=== PATIENT | female | born 1965 | race African-American/Black ===

== ENCOUNTER 2017-12-08 12:33 | Emergency (ER) | payer OTHER ==
[2017-12-08] MEDS ORDERED: IBUPROFEN 200 MG TAB PO ONE (13:34)
--- NOTE | 2017-12-08 13:41 | RAD REPORT ---
EXAM DESCRIPTION: RAD - Elbow Right 3 View - 12/08/2017 1:36 pm CLINICAL HISTORY: Elbow pain following fall COMPARISON: None. FINDINGS: No fracture is identified and no elevated posterior fat pad. There is no dislocation or pe riosteal reaction noted. No foreign body or other soft tissue abnormality. No other significant findi ng. IMPRESSION: Negative right elbow examination.
--- NOTE | 2017-12-08 13:43 | RAD REPORT ---
EXAM DESCRIPTION: Shoulder Right 2 View - 12/08/2017 1:36 pm CLINICAL HISTORY: Shoulder pain after fall COMPARISON: November 10 TECHNIQUE: Internal and external rotation views of the right shoulder were obtained. FINDINGS: No fracture or dislocation. No acute or destructive finding in the proximal humerus. AC nadiya int degenerative changes are present and small inferiorly directed spurs are present. An acute trauma related finding is not seen. Acromial humeral joint space is normal. IMPRESSION: Degenerative changes are present but no fracture or acute finding seen.
--- NOTE | 2017-12-08 13:52 | EDPHYS ---
Physician Documentation [facility] Name: Charlotte Ruvalcaba Age: 52 yrs Sex: Female : 1965 Arrival Date: 12/08/2017 Time: 12:32 Bed 8 Private MD: ED Physician Vinny Puga HPI: 12/08 13:40 This 52 yrs old Black Female presents to ER via EMS with complaints of Shoulder Pain. gs 13:40 The patient or guardian complains of an injury. right shoulder. Context: The problem gs was sustained at a store, resulted from a fall, while walking, The patient experiences decreased range of motion, The patient reports no obvious deformity. Onset: The symptoms/episode began/occurred acutely, just prior to arrival. Modifying factors: The symptoms are aggravated by movement. Associated signs and symptoms: Pertinent negatives: Numbness in left arm. Severity of symptoms: At their worst the symptoms were mild, in the emergency department the symptoms are unchanged. The patient has experienced similar episodes in the past, a few times. The patient has not recently seen a physician. Historical: - Allergies: 12:37 NKDA; hb - Home Meds: 12:37 acetaminophen-codeine 300-30 mg Oral tab [Active]; cyclobenzaprine 10 mg Oral tab 1 tab hb [Active]; diclofenac sodium 75 mg Oral TbEC 1 tab daily [Active]; esomeprazole magnesium 40 mg Oral cpDR 1 cap once daily [Active]; Humalog subcutaneous Sub-Q [Active]; indomethacin 75 mg Oral cpER 1 cap 2 times per day [Active]; Januvia 100 mg Oral tab 1 tab once daily [Active]; levemir SQ 60 mg daily [Active]; loratadine 10 mg Oral tab 1 tab once daily [Active]; losartan 50 mg Oral tab 1 tab once daily [Active]; paroxetine HCl 10 mg Oral tab 1 tab once daily [Active]; Levemir FlexTouch 100 unit/mL (3 mL) subcutaneous inpn [Active]; pentazocine-naloxone 50-0.5 mg Oral tab every 6 hours [Active]; simvastatin 40 mg Oral tab 1 tab once daily [Active]; tramadol 50 mg Oral tab [Active]; victoza 3-tita SQ 1.8 mg daily [Active]; - PMHx: 12:37 Asthma; breast cancer; Diabetes - IDDM; chronic pain, sees pain doctor; COPD; hb Hypertension; Gout; Hypothyroidism; - PSHx: 12:37 two knees replacements, carpel tunnel, heel spurr sx, ankle, trigger finger; R shoulder hb sx; - Immunization history:: Adult Immunizations up to date. - Social history:: Smoking status: Patient/guardian denies using tobacco. ROS: 13:40 All other systems are negative. gs Exam: 13:40 Head/Face: Normocephalic, atraumatic. Eyes: Pupils equal round and reactive to light, gs extra-ocular motions intact. Lids and lashes normal. Conjunctiva and sclera are non-icteric and not injected. Cornea within normal limits. Periorbital areas with no swelling, redness, or edema. ENT: Nares patent. No nasal discharge, no septal abnormalities noted. Tympanic membranes are normal and external auditory canals are clear. Oropharynx with no redness, swelling, or masses, exudates, or evidence of obstruction, uvula midline. Mucous membranes moist. Neck: Trachea midline, no thyromegaly or masses palpated, and no cervical lymphadenopathy. Supple, full range of motion without nuchal rigidity, or vertebral point tenderness. No Meningismus. Chest/axilla: Normal chest wall appearance and motion. Nontender with no deformity. No lesions are appreciated. Cardiovascular: Regular rate and rhythm with a normal S1 and S2. No gallops, murmurs, or rubs. Normal PMI, no JVD. No pulse deficits. Respiratory: Lungs have equal breath sounds bilaterally, clear to auscultation and percussion. No rales, rhonchi or wheezes noted. No increased work of breathing, no retractions or nasal flaring. Abdomen/GI: Soft, non-tender, with normal bowel sounds. No distension or tympany. No guarding or rebound. No evidence of tenderness throughout. Back: No spinal tenderness. No costovertebral tenderness. Full range of motion. Skin: Warm, dry with normal turgor. Normal color with no rashes, no lesions, and no evidence of cellulitis. Neuro: Awake and alert, GCS 15, oriented to person, place, time, and situation. Cranial nerves II-XII grossly intact. Motor strength 5/5 in all extremities. Sensory grossly intact. Cerebellar exam normal. Normal gait. 13:40 Constitutional: The patient appears alert, awake. 13:40 Musculoskeletal/extremity: Joints: the right shoulder displays 13:45 Musculoskeletal/extremity: Joints: the right shoulder displays limited range of gs motion, tenderness, the right elbow displays tenderness. Vital Signs: 12:33 BP 175 / 79; Pulse 88; Resp 16; Temp 98.1; Pulse Ox 100% on R/A; Pain 10/10; hb 13:25 BP 138 / 88; Pulse 71; Resp 17; Pulse Ox 98% on R/A; Pain 9/10; hb 14:14 BP 166 / 85; Pulse 72; Resp 16; Temp 98; Pulse Ox 99% on R/A; Pain 5/10; ch MDM: 12:40 Patient medically screened. 13:45 Differential diagnosis: humeral head fracture, glenoid fracture, DJD. Data reviewed: vital signs, nurses notes. 12/08 12:40 Order name: Shoulder Right (2 View) XRAY; Complete Time: 13:44 12/08 13:44 Interpretation: No acute disease. 12/08 12:40 Order name: Elbow Right 3 View XRAY; Complete Time: 13:42 12/08 14:14 Order name: Sling; Complete Time: 14:14 Administered Medications: 13:24 Drug: Motrin 600 mg Route: PO; hb 14:14 Follow up: Response: No adverse reaction; Marked relief of symptoms Disposition: 12/08/17 13:51 Discharged to Home. Impression: Other specific joint derangements of right shoulder, not elsewhere classified, Contusion of right elbow. - Condition is Stable. - Prescriptions for Naprosyn 500 mg Oral Tablet - take 1 tablet by ORAL route 2 times per day As needed take with food; 30 tablet. - Medication Reconciliation Form, Thank You Letter, Antibiotic Education, Prescription Opioid Use form. - Follow up: Kameron Feliz MD; When: 2 - 3 days; Reason: Re-evaluation by your physician. Signatures: Dispatcher [employer] Nancy Puente RN ALOK Miranda Ramos RN RN Birgit Velasco RN RN Vinny Puga MD MD
--- NOTE | 2017-12-08 13:52 | ER ---
Nurse's Notes [facility] Name: Charlotte Ruvalcaba Age: 52 yrs Sex: Female : 1965 Arrival Date: 12/08/2017 Time: 12:32 Bed 8 Private MD: Diagnosis: Other specific joint derangements of right shoulder, not elsewhere classified;Contusion of right elbow Presentation: 12/08 12:33 Presenting complaint: EMS states: Severe right shoulder pain after mechanical fall from hb standing approx 15 mins [employer]. Transition of care: patient was not received from another setting of care. Onset of symptoms was December 08, 2017. Care prior to arrival: sling. 12:33 Method Of Arrival: EMS: [facility] 12:33 Acuity: RASHAD 4 hb Historical: - Allergies: 12:37 NKDA; hb - Home Meds: 12:37 acetaminophen-codeine 300-30 mg Oral tab [Active]; cyclobenzaprine 10 mg Oral tab 1 tab hb [Active]; diclofenac sodium 75 mg Oral TbEC 1 tab daily [Active]; esomeprazole magnesium 40 mg Oral cpDR 1 cap once daily [Active]; Humalog subcutaneous Sub-Q [Active]; indomethacin 75 mg Oral cpER 1 cap 2 times per day [Active]; Januvia 100 mg Oral tab 1 tab once daily [Active]; levemir SQ 60 mg daily [Active]; loratadine 10 mg Oral tab 1 tab once daily [Active]; losartan 50 mg Oral tab 1 tab once daily [Active]; paroxetine HCl 10 mg Oral tab 1 tab once daily [Active]; Levemir FlexTouch 100 unit/mL (3 mL) subcutaneous inpn [Active]; pentazocine-naloxone 50-0.5 mg Oral tab every 6 hours [Active]; simvastatin 40 mg Oral tab 1 tab once daily [Active]; tramadol 50 mg Oral tab [Active]; victoza 3-tita SQ 1.8 mg daily [Active]; - PMHx: 12:37 Asthma; breast cancer; Diabetes - IDDM; chronic pain, sees pain doctor; COPD; hb Hypertension; Gout; Hypothyroidism; - PSHx: 12:37 two knees replacements, carpel tunnel, heel spurr sx, ankle, trigger finger; R shoulder hb sx; - Immunization history:: Adult Immunizations up to date. - Social history:: Smoking status: Patient/guardian denies using tobacco. Screenin:14 Abuse screen: Denies threats or abuse. Denies injuries from another. Nutritional ch screening: No deficits noted. Tuberculosis screening: No symptoms or risk factors identified. Fall Risk None identified. Assessment: 14:14 General: Appears in no apparent distress. comfortable, Behavior is calm, cooperative, ch appropriate for age. Pain: Complains of pain in right arm and right elbow and right shoulder. Neuro: No deficits noted. Vital Signs: 12:33 BP 175 / 79; Pulse 88; Resp 16; Temp 98.1; Pulse Ox 100% on R/A; Pain 10/10; hb 13:25 BP 138 / 88; Pulse 71; Resp 17; Pulse Ox 98% on R/A; Pain 9/10; hb 14:14 BP 166 / 85; Pulse 72; Resp 16; Temp 98; Pulse Ox 99% on R/A; Pain 5/10; ch ED Course: 12:32 Patient arrived in ED. hb 12:35 Triage completed. hb 12:38 Vinny Puga MD is Attending Physician. gs 12:39 Arm band placed on right wrist. hb 12:44 Birgit Velasco, RN is Primary Nurse. hb 13:32 X-ray completed. Portable x-ray completed in exam room. Patient tolerated procedure sw well. 13:33 Shoulder Right (2 View) XRAY In Process Unspecified. EDMS 13:33 Elbow Right 3 View XRAY In Process Unspecified. EDMS 13:49 Kameron Feliz MD is Referral Physician. gs 14:14 No apparent distress. Resting quietly. ch 14:14 Patient has correct armband on for positive identification. Bed in low position. Call light in reach. Side rails up X 1. 14:14 No provider procedures requiring assistance completed. Patient did not have IV access ch during this emergency room visit. Sling applied to right arm. Administered Medications: 13:24 Drug: Motrin 600 mg Route: PO; hb 14:14 Follow up: Response: No adverse reaction; Marked relief of symptoms ch Outcome: 13:51 Discharge ordered by . gs 14:20 Patient left the ED. Signatures: Dispatcher [employer] EDAR Nancy Couch RN RN Miranda Ramos RN RN William, Birgit Arita, RN RN hb Vinny Puga MD MD gs Corrections: (The following items were deleted from the chart) 12:35 12:33 BP 158 / 88; Pulse 88bpm; Resp 16bpm; Pulse Ox 100% RA; Temp 98.1F; Pain 1010; hbhb 12:44 12:33 Acuity: RASHAD 3 hb hb
[2017-12-08 14:33] VITALS: BP 166/85; TEMP 98; O2SAT 99
== END 2017-12-08 14:20 | disposition home or self-care (01) ==
LOC: ER 12:33
DX: M24.811 Other specific joint derangements of right shoulder, not elsewhere classified (principal); S50.01XA Contusion of right elbow, initial encounter; W18.39XA Other fall on same level, initial encounter; Y93.01 Activity, walking, marching and hiking; Y92.512 Supermarket, store or market as the place of occurrence of the external cause; Z79.4 Long term (current) use of insulin; Z85.3 Personal history of malignant neoplasm of breast; I10 Essential (primary) hypertension; E11.9 Type 2 diabetes mellitus without complications; E03.9 Hypothyroidism, unspecified; J45.909 Unspecified asthma, uncomplicated
CPT/HCPCS: 99284

== ENCOUNTER 2018-01-10 14:37 | Emergency (ER) | payer OTHER ==
--- NOTE | 2018-01-10 17:17 | ER ---
Nurse's Notes [facility] Name: Charlotte Ruvalcaba Age: 52 yrs Sex: Female : 1965 Arrival Date: 01/10/2018 Time: 14:42 Bed 8 Private MD: Diagnosis: Low back pain Presentation: 01/10 14:48 Presenting complaint: Patient states: Reports low back pain that started 3 days ago. aj Patient believes her back pain is related to a slip and fall she had 1 month ago at [facility]. Also states, "my chest is just tight, it's been like this for a while. I think it's just stress.". Transition of care: patient was not received from another setting of care. Onset of symptoms was January 07, 2018. Initial Sepsis Screen: Does the patient meet any 2 criteria? No. Patient's initial sepsis screen is negative. Does the patient have a suspected source of infection? No. Patient's initial sepsis screen is negative. Care prior to arrival: None. 14:48 Method Of Arrival: Ambulatory 14:48 Acuity: RASHAD 3 Triage Assessment: 14:52 General: Appears in no apparent distress. comfortable, Behavior is calm, cooperative, aj appropriate for age. Pain: Complains of pain in low back area Pain currently is 10 out of 10 on a pain scale. Neuro: Level of Consciousness is awake, alert, obeys commands, Oriented to person, place, time, situation, Appropriate for age. Cardiovascular: Capillary refill < 3 seconds in bilateral fingers Patient's skin is warm and dry. Respiratory: Airway is patent Respiratory effort is even, unlabored, Respiratory pattern is regular, symmetrical. Derm: Skin is intact, is healthy with good turgor, Skin is pink, warm \\T\\ dry. normal. Musculoskeletal: Reports pain in low back area. 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 aj Historical: - Allergies: 14:52 NKDA; aj - Home Meds: 14:52 acetaminophen-codeine 300-30 mg Oral tab [Active]; cyclobenzaprine 10 mg Oral tab 1 tab aj [Active]; diclofenac sodium 75 mg Oral TbEC 1 tab daily [Active]; esomeprazole magnesium 40 mg Oral cpDR 1 cap once daily [Active]; Humalog subcutaneous Sub-Q [Active]; indomethacin 75 mg Oral cpER 1 cap 2 times per day [Active]; Januvia 100 mg Oral tab 1 tab once daily [Active]; levemir SQ 60 mg daily [Active]; Levemir FlexTouch 100 unit/mL (3 mL) subcutaneous inpn [Active]; loratadine 10 mg Oral tab 1 tab once daily [Active]; losartan 50 mg Oral tab 1 tab once daily [Active]; paroxetine HCl 10 mg Oral tab 1 tab once daily [Active]; simvastatin 40 mg Oral tab 1 tab once daily [Active]; pentazocine-naloxone 50-0.5 mg Oral tab every 6 hours [Active]; tramadol 50 mg Oral tab [Active]; victoza 3-tita SQ 1.8 mg daily [Active]; [place] 7.5-325 mg Oral tab 1 tab every 4 hours [Active]; - PMHx: 14:52 Asthma; breast cancer; chronic pain, sees pain doctor; COPD; Diabetes - IDDM; Gout; aj Hypertension; Hypothyroidism; - PSHx: 14:52 two knees replacements, carpel tunnel, heel spurr sx, ankle, trigger finger; R shoulder aj sx; - Immunization history:: Adult Immunizations up to date. - Social history:: Smoking status: Patient/guardian denies using tobacco. - Family history:: not pertinent. - Hospitalizations: : No recent hospitalization is reported. Screenin:30 Abuse screen: Denies threats or abuse. Nutritional screening: No deficits noted. aa5 Tuberculosis screening: No symptoms or risk factors identified. Fall Risk None identified. Assessment: 15:30 General: Appears uncomfortable, Behavior is calm, cooperative. Pain: Complains of pain aa5 in right low back Pain does not radiate. Pain currently is 10 out of 10 on a pain scale. Quality of pain is described as sharp, Pain began 2-3 days ago. Is continuous, Aggravated by increased activity, repositioning. Neuro: Level of Consciousness is awake, alert, obeys commands, Oriented to person, place, time, situation. Cardiovascular: Reports intermittent chest tightness. Pt states "I think it's just from stress because I have a lot going on" Heart tones S1 S2 present Rhythm is regular. Respiratory: Airway is patent Respiratory effort is even, unlabored, Respiratory pattern is regular, symmetrical. GI: Patient currently denies diarrhea, nausea, vomiting. : Denies burning with urination, inability to void. EENT: No signs and/or symptoms were reported regarding the EENT system. Derm: Skin is dry, Skin is normal, Skin temperature is warm. Musculoskeletal: Range of motion: limited in right shoulder Sling noted to right arm. Pt states "I hurt my right shoulder a month ago". 16:15 Neuro: Level of Consciousness is awake, alert, obeys commands, Oriented to person, aa5 place, time, situation. Respiratory: Airway is patent Respiratory effort is even, unlabored, Respiratory pattern is regular, symmetrical. Derm: Skin is dry, Skin is normal, Skin temperature is warm. 16:15 Reassessment: Patient and/or family updated on plan of care and expected duration. Pain aa5 level reassessed. Pain: Pain currently is 8 out of 10 on a pain scale. 17:38 Neuro: Level of Consciousness is awake, alert, obeys commands, Oriented to person, aa5 place, time, situation. Respiratory: Airway is patent Respiratory effort is even, unlabored, Respiratory pattern is regular, symmetrical. Derm: Skin is dry, Skin is normal, Skin temperature is warm. Vital Signs: 14:52 BP 174 / 89; Pulse 88; Resp 19; Temp 98.0; Pulse Ox 98% on R/A; Weight 85.28 kg; Height aj 5 ft. 4 in. (162.56 cm); Pain 10/10; 17:00 BP 168 / 86; Pulse 84; Resp 18 S; Pulse Ox 98% on R/A; aa5 14:52 Body Mass Index 32.27 (85.28 kg, 162.56 cm) aj ED Course: 14:42 Patient arrived in ED. sb2 14:50 Triage completed. aj 14:52 Arm band placed on left wrist. Patient placed in waiting room, Patient notified of wait aj time. 15:21 Spenser Ruvalcaba MD is Attending Physician. rn 15:30 Patient has correct armband on for positive identification. Bed in low position. Call aa5 light in reach. Side rails up X 1. 15:32 Little Lai, ALOK is Primary Nurse. aa5 16:05 X-ray completed. Patient tolerated procedure well. la2 16:05 XRAY Lumbar Spine (3 Views) In Process Unspecified. EDMS 16:27 No provider procedures requiring assistance completed. aa5 17:38 Patient did not have IV access during this emergency room visit. aa5 Administered Medications: No medications were administered Outcome: 17:16 Discharge ordered by . rn 17:38 Discharged to home ambulatory. aa5 17:38 Condition: stable 17:38 Discharge instructions given to patient, Instructed on discharge instructions, follow up and referral plans. Demonstrated understanding of instructions, follow-up care. 17:40 Patient left the ED. aa5 Signatures: Dispatcher [employer] EDSheila Hui RN Spenser Chris MD MD rn Calderon, Audri, RN RN aa5 Krista Thomas la2 Crala Barba2
--- NOTE | 2018-01-10 17:17 | EDPHYS ---
Physician Documentation [facility] Name: Charlotte Ruvalcaba Age: 52 yrs Sex: Female : 1965 Arrival Date: 01/10/2018 Time: 14:42 Bed 8 Private MD: ED Physician Spenser Ruvalcaba HPI: 01/10 15:30 This 52 yrs old Black Female presents to ER via Ambulatory with complaints of back pain.rn 15:30 The patient presents with pain that is acute. The symptoms are located in the low back. rn Onset: The symptoms/episode began/occurred 1 month(s) ago. The pain does not radiate. Associated signs and symptoms: Pertinent positives: none Pertinent negatives: abdominal pain, dysuria, fever, incontinence, nausea, numbness, tingling, urinary retention, vomiting, weakness. Modifying factors: The patient symptoms are alleviated by remaining still, the patient symptoms are aggravated by any movement. Severity of symptoms: At their worst the symptoms were mild, in the emergency department the symptoms are unchanged. The patient has experienced similar episodes in the past. The patient has not recently seen a physician. Reports fell December 08 at [facility], landed on clothing rack, no LOC, seen here, neg shoulder xrays, didn't have back pain at that time, began to have back pain, now for 1 month, no new injuries, seen by pcp, MRI ordered, has not gotten study, no weakness/bowel or bladder issues. Reports also has chest tightness for months, thinks unrelated, puts it off due to stress. No current chest pain. . 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 aj Historical: - Allergies: 14:52 NKDA; aj - Home Meds: 14:52 acetaminophen-codeine 300-30 mg Oral tab [Active]; cyclobenzaprine 10 mg Oral tab 1 tab aj [Active]; diclofenac sodium 75 mg Oral TbEC 1 tab daily [Active]; esomeprazole magnesium 40 mg Oral cpDR 1 cap once daily [Active]; Humalog subcutaneous Sub-Q [Active]; indomethacin 75 mg Oral cpER 1 cap 2 times per day [Active]; Januvia 100 mg Oral tab 1 tab once daily [Active]; levemir SQ 60 mg daily [Active]; Levemir FlexTouch 100 unit/mL (3 mL) subcutaneous inpn [Active]; loratadine 10 mg Oral tab 1 tab once daily [Active]; losartan 50 mg Oral tab 1 tab once daily [Active]; paroxetine HCl 10 mg Oral tab 1 tab once daily [Active]; simvastatin 40 mg Oral tab 1 tab once daily [Active]; pentazocine-naloxone 50-0.5 mg Oral tab every 6 hours [Active]; tramadol 50 mg Oral tab [Active]; victoza 3-tita SQ 1.8 mg daily [Active]; [place] 7.5-325 mg Oral tab 1 tab every 4 hours [Active]; - PMHx: 14:52 Asthma; breast cancer; chronic pain, sees pain doctor; COPD; Diabetes - IDDM; Gout; aj Hypertension; Hypothyroidism; - PSHx: 14:52 two knees replacements, carpel tunnel, heel spurr sx, ankle, trigger finger; R shoulder aj sx; - Immunization history:: Adult Immunizations up to date. - Social history:: Smoking status: Patient/guardian denies using tobacco. - Family history:: not pertinent. - Hospitalizations: : No recent hospitalization is reported. ROS: 15:30 Constitutional: Negative for fever, chills, and weight loss, Eyes: Negative for injury, rn pain, redness, and discharge, Cardiovascular: Negative for palpitations, and edema, Respiratory: Negative for shortness of breath, cough, wheezing, and pleuritic chest pain, Abdomen/GI: Negative for abdominal pain, nausea, vomiting, diarrhea, and constipation, Back: + injury and pain for 1 month MS/Extremity: Negative for injury and deformity, Skin: Negative for injury, rash, and discoloration, Neuro: Negative for headache, weakness, numbness, tingling, and seizure. Exam: 15:30 Constitutional: This is a well developed, well nourished patient who is awake, alert, rn and in no acute distress. Head/Face: Normocephalic, atraumatic. Eyes: Pupils equal round and reactive to light, extra-ocular motions intact. Lids and lashes normal. Conjunctiva and sclera are non-icteric and not injected. Cornea within normal limits. Periorbital areas with no swelling, redness, or edema. Neck: Trachea midline, no thyromegaly or masses palpated, and no cervical lymphadenopathy. Supple, full range of motion without nuchal rigidity, or vertebral point tenderness. No Meningismus. Cardiovascular: Regular rate and rhythm with a normal S1 and S2. No gallops, murmurs, or rubs. Normal PMI, no JVD. No pulse deficits. Respiratory: Lungs have equal breath sounds bilaterally, clear to auscultation and percussion. No rales, rhonchi or wheezes noted. No increased work of breathing, no retractions or nasal flaring. Abdomen/GI: Soft, non-tender, with normal bowel sounds. No distension or tympany. No guarding or rebound. No evidence of tenderness throughout. Back: + tender right lower back, no spinal tenderness or stepoff MS/ Extremity: Pulses equal, no cyanosis. Neurovascular intact. Full, normal range of motion. Equal circumference. Neuro: Awake and alert, GCS 15, oriented to person, place, time, and situation. Cranial nerves II-XII grossly intact. Motor strength 5/5 in all extremities. Sensory grossly intact. Cerebellar exam normal. Normal gait. Vital Signs: 14:52 BP 174 / 89; Pulse 88; Resp 19; Temp 98.0; Pulse Ox 98% on R/A; Weight 85.28 kg; Height aj 5 ft. 4 in. (162.56 cm); Pain 10/10; 17:00 BP 168 / 86; Pulse 84; Resp 18 S; Pulse Ox 98% on R/A; aa5 14:52 Body Mass Index 32.27 (85.28 kg, 162.56 cm) aj MDM: 15:21 Patient medically screened. rn 17:15 Differential diagnosis: arthritis, chronic back pain, Fatigue Fracture Osteoarthritis rn vertebral fracture. Data reviewed: vital signs, nurses notes, radiologic studies, plain films, and as a result, I will discharge patient. Counseling: I had a detailed discussion with the patient and/or guardian regarding: the historical points, exam findings, and any diagnostic results supporting the discharge/admit diagnosis, lab results, radiology results, the need for outpatient follow up, to return to the emergency department if symptoms worsen or persist or if there are any questions or concerns that arise at home. Special discussion: I discussed with the patient/guardian in detail that at this point there is no indication for admission to the hospital. It is understood, however, that if the symptoms persist or worsen the patient needs to return immediately for re-evaluation. 01/10 16:23 Order name: Urine Dipstick--Ancillary (enter results) eb 01/10 15:29 Order name: XRAY Lumbar Spine (3 Views); Complete Time: 17:33 rn 01/10 15:29 Order name: Urine Dipstick-Ancillary (obtain specimen); Complete Time: 16:14 rn 01/10 15:29 Order name: EKG - Nurse/Tech; Complete Time: 16:10 rn 01/10 15:29 Order name: EKG; Complete Time: 15:30 rn Administered Medications: No medications were administered Disposition: 01/10/18 17:16 Discharged to Home. Impression: Low back pain. - Condition is Stable. - Discharge Instructions: Back Pain, Adult, Musculoskeletal Pain. - Medication Reconciliation Form, Thank You Letter, Antibiotic Education, Prescription Opioid Use form. - Follow up: Private Physician; When: As needed; Reason: Recheck today's complaints, Re-evaluation by your physician. - Problem is chronic. - Symptoms have improved. Signatures: Dispatcher [employer] EDSheila Hui RN RN aj Nieto, Roman, MD MD rn Calderon, Audri, RN RN aa5 Corrections: (The following items were deleted from the chart) 15:33 15:30 Constitutional: Negative for fever, chills, and weight loss, Eyes: Negative for rn injury, pain, redness, and discharge, Cardiovascular: Negative for chest pain, palpitations, and edema, Respiratory: Negative for shortness of breath, cough, wheezing, and pleuritic chest pain, Abdomen/GI: Negative for abdominal pain, nausea, vomiting, diarrhea, and constipation, Back: + injury and pain for 1 month MS/Extremity: Negative for injury and deformity, Skin: Negative for injury, rash, and discoloration, Neuro: Negative for headache, weakness, numbness, tingling, and seizure, rn 17:40 17:16 01/10/2018 17:16 Discharged to Home. Impression: Low back pain. Condition is aa5 Stable. Forms are Medication Reconciliation Form, Thank You Letter, Antibiotic Education, Prescription Opioid Use. Follow up: Private Physician; When: As needed; Reason: Recheck today's complaints, Re-evaluation by your physician. Problem is chronic. Symptoms have improved. rn
--- NOTE | 2018-01-10 17:29 | RAD REPORT ---
EXAM DESCRIPTION: Lumbar Spine 3 Views CLINICAL HISTORY: Radiculopathy COMPARISON: 01/09/2016, 04/20/2014 FINDINGS: Vertebral body heights appear maintained. No compression fracture noted. Moderate degenera tive spondylosis at L5-S1 with vacuum disc degeneration and anterior/posterior osteophytes. No spondy lolysis or spondylolisthesis. Cholecystectomy clips are seen. IMPRESSION: Moderate to significant L5-S1 spondylosis.
[2018-01-10 17:50] VITALS: BP 174/89; TEMP 98; O2SAT 98
[2018-01-10 18:15] LABS: Urine Blood NEGATIVE (NEG); Urine Glucose NEGATIVE (NEG); Urine Protein NEGATIVE (NEG); Urine Specific Gravity 1.015 (1.005-1.030)
--- NOTE | 2018-01-11 11:07 | EKG ---
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
== END 2018-01-10 17:40 | disposition home or self-care (01) ==
LOC: ER 14:37
DX: M54.5 Low back pain (principal); I10 Essential (primary) hypertension; E11.9 Type 2 diabetes mellitus without complications; E03.9 Hypothyroidism, unspecified; J44.9 Chronic obstructive pulmonary disease, unspecified; W18.30XA Fall on same level, unspecified, initial encounter; Y93.89 Activity, other specified; Y92.512 Supermarket, store or market as the place of occurrence of the external cause; Z79.4 Long term (current) use of insulin; Z85.3 Personal history of malignant neoplasm of breast
CPT/HCPCS: 72100; 81003; 93005; 99283

== ENCOUNTER 2018-05-29 11:43 | Emergency (ER) | payer OTHER ==
--- NOTE | 2018-05-29 13:00 | EDPHYS ---
Physician Documentation [facility] Name: Charlotte Ruvalcaba Age: 53 yrs Sex: Female : 1965 Arrival Date: 05/29/2018 Time: 11:45 Bed 17 Private MD: Naseem Sanchez E ED Physician Efren Puente HPI: 05/29 12:42 This 53 yrs old Black Female presents to ER via Ambulatory with complaints of Rash. [facility] 12:42 The patient's rash thought to be caused by an unknown cause. The rash is located on the [facility] back and face. Onset: The symptoms/episode began/occurred gradually, 3 week(s) ago. Associated signs and symptoms: Pertinent positives: itching, Pertinent negatives: fever, nausea, Pain swelling of lips, swelling of throat, swelling of tongue, vomiting. Historical: - Allergies: 11:52 NKDA; la1 - PMHx: 11:52 Asthma; breast cancer; chronic pain, sees pain doctor; COPD; Diabetes - IDDM; Gout; la1 Hypertension; Hypothyroidism; - Immunization history:: Adult Immunizations up to date. - Social history:: Smoking status: Patient/guardian denies using tobacco. - Ebola Screening: : No symptoms or risks identified at this time. ROS: 12:42 Constitutional: Negative for fever, chills, and weight loss, ENT: Negative for injury, jmm pain, and discharge, Cardiovascular: Negative for chest pain, palpitations, and edema, Respiratory: Negative for shortness of breath, cough, wheezing, and pleuritic chest pain, MS/Extremity: Negative for injury and deformity. 12:42 Skin: Positive for rash. 12:42 All other systems are negative. Exam: 12:42 Eyes: EOMI, no conjunctival erythema appreciated ENT: Moist Mucus Membranes m Chest/axilla: Normal chest wall appearance and motion. Cardiovascular: Regular rate and rhythm. No edema appreciated Respiratory: Normal respirations, no respiratory distress appreciated Back: Normal ROM 12:42 Constitutional: The patient appears in no acute distress, alert, awake. 12:42 Head/face: erythematous rash noted to the face. 12:42 Skin: erythematous rash noted to the face and the upper back. 12:42 Neuro: Orientation: is normal, Mentation: is normal, Memory: is normal, Gait: is steady. 12:42 Psych: Behavior/mood is pleasant, cooperative. Vital Signs: 11:52 BP 146 / 70; Pulse 81; Resp 16; Temp 98.3; Pulse Ox 100% on R/A; Weight 87.54 kg; la1 Height 5 ft. 4 in. (162.56 cm); 11:52 Body Mass Index 33.13 (87.54 kg, 162.56 cm) la1 MDM: 12:42 Patient medically screened. [facility] 12:57 Data reviewed: vital signs, nurses notes. Counseling: I had a detailed discussion with cynthia the patient and/or guardian regarding: the historical points, exam findings, and any diagnostic results supporting the discharge/admit diagnosis, the need for outpatient follow up, to return to the emergency department if symptoms worsen or persist or if there are any questions or concerns that arise at home. 12:57 ED course: Rash appears consistent with a dermatitis. Patient is advised to follow up cynthia with dermatology for further evaluation. Advised to closely monitor glucose while taking steroids. Given strict return precautions. Patient understood and agrees with the plan of care. . Administered Medications: No medications were administered Disposition: 05/30 12:17 Co-signature as Attending Physician, Efren Puente MD I agree with the assessment and [facility] plan of care. Disposition: 05/29/18 12:59 Discharged to Home. Impression: Allergic contact dermatitis. - Condition is Stable. - Discharge Instructions: Contact Dermatitis. - Prescriptions for Hydroxyzine HCl 25 mg Oral Tablet - take 1 tablet by ORAL route every 6 hours As needed; 12 tablet. Medrol (Meng) 4 mg Oral Tablets, Dose Pack - take 1 tablet by ORAL route as directed - follow package instructions; 1 packet. - Medication Reconciliation Form, Thank You Letter, Antibiotic Education, Prescription Opioid Use form. - Follow up: Private Physician; When: 2 - 3 days; Reason: Recheck today's complaints, Continuance of care, Re-evaluation by your physician. - Notes: Please take steroids as directed. please watch blood glucose level closely and discontinue steroid use if level becomes greater than 300. Please returnto the ED if symptoms worsen. Signatures: Efren Puente MD MD cha Mickail, Joel, PA PA jmm Attema, Lee, RN RN la1 Corrections: (The following items were deleted from the chart) 05/29 14:04 12:59 05/29/2018 12:59 Discharged to Home. Impression: Allergic contact dermatitis. la1 Condition is Stable. Forms are Medication Reconciliation Form, Thank You Letter, Antibiotic Education, Prescription Opioid Use. Follow up: Private Physician; When: 2 - 3 days; Reason: Recheck today's complaints, Continuance of care, Re-evaluation by your physician. cynthia
--- NOTE | 2018-05-29 13:00 | ER ---
Nurse's Notes [facility] Name: Charlotte Ruvalcaba Age: 53 yrs Sex: Female : 1965 Arrival Date: 05/29/2018 Time: 11:45 Bed 17 Private MD: Naseem Sanchez E Diagnosis: Allergic contact dermatitis Presentation: 05/29 11:51 Presenting complaint: Patient states: Rash on face for 3 weeks, mild. Transition of la1 care: patient was not received from another setting of care. Onset of symptoms was May 29, 2018. Risk Assessment: Do you want to hurt yourself or someone else? Patient reports no desire to harm self or others. Initial Sepsis Screen: Does the patient meet any 2 criteria? No. Patient's initial sepsis screen is negative. Does the patient have a suspected source of infection? No. Patient's initial sepsis screen is negative. Care prior to arrival: None. 11:51 Method Of Arrival: Ambulatory la1 11:51 Acuity: RASHAD 5 la1 Historical: - Allergies: 11:52 NKDA; la1 - PMHx: 11:52 Asthma; breast cancer; chronic pain, sees pain doctor; COPD; Diabetes - IDDM; Gout; la1 Hypertension; Hypothyroidism; - Immunization history:: Adult Immunizations up to date. - Social history:: Smoking status: Patient/guardian denies using tobacco. - Ebola Screening: : No symptoms or risks identified at this time. Screenin:45 Abuse screen: Denies threats or abuse. Denies injuries from another. Nutritional aj1 screening: No deficits noted. Tuberculosis screening: No symptoms or risk factors identified. Fall Risk None identified. Assessment: 13:45 General: Appears in no apparent distress. comfortable, Behavior is calm, cooperative, aj1 appropriate for age. Pain: Denies pain. Neuro: Level of Consciousness is awake, alert, obeys commands. Cardiovascular: Patient's skin is warm and dry. Respiratory: Airway is patent Respiratory effort is even, unlabored, Respiratory pattern is regular, symmetrical. GI: No signs and/or symptoms were reported involving the gastrointestinal system. : No signs and/or symptoms were reported regarding the genitourinary system. EENT: No signs and/or symptoms were reported regarding the EENT system. Derm: Rash noted that is on face. Musculoskeletal: No signs and/or symptoms reported regarding the musculoskeletal system. Circulation, motion, and sensation intact. Vital Signs: 11:52 BP 146 / 70; Pulse 81; Resp 16; Temp 98.3; Pulse Ox 100% on R/A; Weight 87.54 kg; la1 Height 5 ft. 4 in. (162.56 cm); 11:52 Body Mass Index 33.13 (87.54 kg, 162.56 cm) la1 ED Course: 11:45 Patient arrived in ED. sb2 11:45 Naseem Sanchez MD is Private Physician. sb2 11:52 Triage completed. la1 11:52 Arm band placed on left wrist. la1 12:35 Kayode Hung PA is PHCP. jm 12:35 Efren Puente MD is Attending Physician. [facility] 13:45 Patient has correct armband on for positive identification. aj1 13:45 No provider procedures requiring assistance completed. Patient did not have IV access aj1 during this emergency room visit. Administered Medications: No medications were administered Outcome: 12:59 Discharge ordered by . [facility] 13:45 Discharged to home ambulatory. aj1 13:45 Condition: good 13:45 Discharge instructions given to patient, Instructed on discharge instructions, follow up and referral plans. medication usage, Demonstrated understanding of instructions, follow-up care, medications. 14:04 Patient left the ED. la1 Signatures: Cara Reyes, RN RN aj1 Kayode Hung PA PA jmm Attema, Lee, RN RN la1 Carla Barba sb2
[2018-05-29 14:14] VITALS: BP 146/70; TEMP 98.3; O2SAT 100
== END 2018-05-29 14:04 | disposition home or self-care (01) ==
LOC: ER 11:43
DX: L23.9 Allergic contact dermatitis, unspecified cause (principal)
CPT/HCPCS: 99281

== ENCOUNTER 2018-06-08 18:04 | Emergency (ER) | payer OTHER ==
--- NOTE | 2018-06-08 20:12 | ER ---
Nurse's Notes [facility] Name: Charlotte Ruvalcaba Age: 53 yrs Sex: Female : 1965 Arrival Date: 06/08/2018 Time: 18:07 Bed Waiting Private MD: Naseem Sanchez E Diagnosis: Presentation: 06/08 18:27 Presenting complaint: Patient states: Right shoulder pain that radiates to her elbow. aj1 Patient states that she has had a Xray and MRI done and was told by Dr. To that her pain is due to bone spurs. Patient states that she is also having back pain, she is scheduled to have surgery because her back is "bone on bone". Patient states that her pain is so bad that she can't sleep. Transition of care: patient was not received from another setting of care. Onset of symptoms was June 06, 2018. Risk Assessment: Do you want to hurt yourself or someone else? Patient reports no desire to harm self or others. Initial Sepsis Screen: Does the patient meet any 2 criteria? HR > 90 bpm. No. Patient's initial sepsis screen is negative. Does the patient have a suspected source of infection? No. Patient's initial sepsis screen is negative. Care prior to arrival: None. 18:27 Method Of Arrival: Ambulatory aj1 18:27 Acuity: RASHAD 4 aj1 19:43 Note Patient walked up to registration desk and told registration staff that she was aj1 leaving then walked out of the ER. Triage Assessment: 18:32 General: Appears in no apparent distress. uncomfortable, Behavior is calm, cooperative, aj1 appropriate for age. Pain: Pain currently is 10 out of 10 on a pain scale. Neuro: Level of Consciousness is awake, alert, obeys commands. Cardiovascular: Patient's skin is warm and dry. Respiratory: Airway is patent Respiratory effort is even, unlabored, Respiratory pattern is regular, symmetrical. Musculoskeletal: Range of motion: intact in all extremities. 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 aj1 Historical: - Allergies: 18:32 NKDA; aj1 - Home Meds: 18:32 acetaminophen-codeine 300-30 mg Oral tab [Active]; cyclobenzaprine 10 mg Oral tab 1 tab aj1 [Active]; diclofenac sodium 75 mg Oral TbEC 1 tab daily [Active]; esomeprazole magnesium 40 mg Oral cpDR 1 cap once daily [Active]; Humalog subcutaneous Sub-Q [Active]; indomethacin 75 mg Oral cpER 1 cap 2 times per day [Active]; Januvia 100 mg Oral tab 1 tab once daily [Active]; levemir SQ 60 mg daily [Active]; Levemir FlexTouch 100 unit/mL (3 mL) subcutaneous inpn [Active]; loratadine 10 mg Oral tab 1 tab once daily [Active]; losartan 50 mg Oral tab 1 tab once daily [Active]; [place] 7.5-325 mg Oral tab 1 tab every 4 hours [Active]; paroxetine HCl 10 mg Oral tab 1 tab once daily [Active]; pentazocine-naloxone 50-0.5 mg Oral tab every 6 hours [Active]; simvastatin 40 mg Oral tab 1 tab once daily [Active]; tramadol 50 mg Oral tab [Active]; victoza 3-tita SQ 1.8 mg daily [Active]; - PMHx: 18:32 Asthma; breast cancer; chronic pain, sees pain doctor; COPD; Diabetes - IDDM; Gout; aj1 Hypertension; Hypothyroidism; - Immunization history:: Flu vaccine is up to date. - Social history:: Smoking status: Patient/guardian denies using tobacco. - Ebola Screening: : Patient denies travel to an Ebola-affected area in the 21 days before illness onset. Vital Signs: 18:32 BP 134 / 72; Pulse 91; Resp 20; Temp 97.0(TE); Pulse Ox 97% on R/A; Weight 88 kg (R); aj1 Height 5 ft. 4 in. (162.56 cm) (R); Pain 10/10; 18:32 Body Mass Index 33.30 (88.00 kg, 162.56 cm) aj1 ED Course: 18:07 Patient arrived in ED. rg4 18:07 Naseem Sanchez MD is Private Physician. rg4 18:31 Triage completed. aj1 18:32 Arm band placed on Patient placed in waiting room, Patient notified of wait time. aj1 Administered Medications: No medications were administered Outcome: 20:11 Eloped from waiting room. aj1 20:11 Patient left the ED. aj1 Signatures: Cara Reyes RN RN aj1 Fior Velásquez rg4
[2018-06-08 20:22] VITALS: BP 134/72; TEMP 97; O2SAT 97
== END 2018-06-08 20:11 | disposition left against medical advice (07) ==
LOC: ER 18:04
DX: Z53.21 Procedure and treatment not carried out due to patient leaving prior to being seen by health care provider (principal)
CPT/HCPCS: 99281

== ENCOUNTER 2018-06-11 15:46 | Emergency (ER) | payer OTHER ==
[2018-06-11] MEDS ORDERED: KETOROLAC 30 MG/ML INJ ONE (16:21)
[2018-06-11] MEDS ORDERED: DIAZEPAM 10 MG/2 ML INJ SYRINGE ONE (16:30)
[2018-06-11 16:49] LABS: Absolute Lymphocytes (CBC) 3.1 K/uL (0.7-4.9); Absolute Monocytes 0.7 K/uL (0.1-1.3); Absolute Neutrophil 7.1 K/uL (1.8-8.0); Basophils % 1.2 % (0-1.3); Eosinophils % 1.9 % (0-4.4); Hematocrit 41.3 % (36.0-45.0); Lymphocytes % 27.3 % (15.3-44.8); MCV 91.7 fL (80-100); MPV 8.4 fL (7.6-11.3); Monocytes % 6.1 % (3.3-12.3); RBC Red Blood Cell Count 4.51 M/uL (3.86-4.86)
--- NOTE | 2018-06-11 16:50 | RAD REPORT ---
EXAM DESCRIPTION: RAD - Chest Single View - 06/11/2018 4:45 pm CLINICAL HISTORY: shortness of breath Chest pain. COMPARISON: Chest Pa And Lat (2 Views) dated 10/03/2017; Chest Single View dated 06/06/2017; Chest Sin gle View dated 09/03/2016; Chest Single View dated 04/14/2016 FINDINGS: Portable technique limits examination quality. The lungs are grossly clear. The heart is normal in size. No displaced fractures. IMPRESSION: No acute intrathoracic process suspected.
[2018-06-11 16:53] LABS: Protime INR 1.04
[2018-06-11 17:08] LABS: ALT/SGPT 24 U/L (12-78); AST/SGOT 18 U/L (15-37); Albumin 4.2 g/dL (3.4-5.0); Alkaline Phosphatase 88 U/L (45-117); BUN Blood Urea Nitrogen 11 mg/dL (7-18); Bicarbonate 29 mmol/L (21-32); Bilirubin Direct 0.1 mg/dL (0-0.2); Bilirubin Total 0.3 mg/dL (0.2-1.0); Magnesium 1.8 mg/dL (1.8-2.4); NT PRO-BNP 25 pg/mL (<125); Potassium 4.3 mmol/L (3.5-5.1); Protein, Total 8.2 g/dL (6.4-8.2); Sodium Level 133 mmol/L (136-145); Troponin (Emerg Dept Use Only) < 0.02 ng/mL (0.0-0.045)
[2018-06-11 17:09] LABS: Glucose Level 422 mg/dL (74-106)
[2018-06-11] MEDS ORDERED: NA CHLORIDE 0.9% 500 ML ONE (17:28)
[2018-06-11] MEDS ORDERED: INSULIN -REGULAR HUMAN 50 UNIT/0.5 ML ML ONE (17:28)
[2018-06-11 17:59] LABS: Urine Blood 2+ (NEG); Urine Glucose 2+ (NEG); Urine Protein NEGATIVE (NEG); Urine Specific Gravity 1.015 (1.005-1.030)
--- NOTE | 2018-06-11 18:01 | RAD REPORT ---
EXAM DESCRIPTION: RAD - Shoulder Right 2 View - 06/11/2018 5:54 pm CLINICAL HISTORY: PAIN COMPARISON: Shoulder Right 2 View dated 12/08/2017 FINDINGS: Moderate AC joint degenerative changes are present. No fracture or dislocation seen. No ag gressive marrow pattern.
--- NOTE | 2018-06-11 18:18 | ER ---
Nurse's Notes [facility] Name: Charlotte Ruvalcaba Age: 53 yrs Sex: Female : 1965 Arrival Date: 06/11/2018 Time: 15:49 Bed 28 Private MD: Naseem Sanchez E Diagnosis: Pain in right shoulder;Right Neck and Mid Back Pain;Hyperglycemia, unspecified Presentation: 06/11 15:53 Presenting complaint: Patient states: Right shoulder pain that radiates up her neck and aj1 down to her elbow. Patient states that she was diagnosed with bone spurs by Dr. To, now she is also having pain in her right side. Transition of care: patient was not received from another setting of care. Onset of symptoms was May 2018. Risk Assessment: Do you want to hurt yourself or someone else? Patient reports no desire to harm self or others. Initial Sepsis Screen: Does the patient meet any 2 criteria? No. Patient's initial sepsis screen is negative. Does the patient have a suspected source of infection? No. Patient's initial sepsis screen is negative. Care prior to arrival: None. 15:53 Method Of Arrival: Ambulatory aj1 15:53 Acuity: RASHAD 4 aj1 Triage Assessment: 15:56 General: Appears in no apparent distress. comfortable, Behavior is calm, cooperative, aj1 appropriate for age. Pain: Complains of pain in anterior aspect of right shoulder, posterior aspect of right shoulder and neck Pain currently is 10 out of 10 on a pain scale. Neuro: Level of Consciousness is awake, alert, obeys commands. Cardiovascular: Patient's skin is warm and dry. Respiratory: Airway is patent Respiratory effort is even, unlabored, Respiratory pattern is regular, symmetrical. 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 N/A - Hysterectomy aj1 Historical: - Allergies: 15:56 NKDA; aj1 - Home Meds: 15:56 acetaminophen-codeine 300-30 mg Oral tab [Active]; cyclobenzaprine 10 mg Oral tab 1 tab aj1 [Active]; diclofenac sodium 75 mg Oral TbEC 1 tab daily [Active]; esomeprazole magnesium 40 mg Oral cpDR 1 cap once daily [Active]; Humalog subcutaneous Sub-Q [Active]; indomethacin 75 mg Oral cpER 1 cap 2 times per day [Active]; Januvia 100 mg Oral tab 1 tab once daily [Active]; levemir SQ 60 mg daily [Active]; Levemir FlexTouch 100 unit/mL (3 mL) subcutaneous inpn [Active]; loratadine 10 mg Oral tab 1 tab once daily [Active]; losartan 50 mg Oral tab 1 tab once daily [Active]; [place] 7.5-325 mg Oral tab 1 tab every 4 hours [Active]; paroxetine HCl 10 mg Oral tab 1 tab once daily [Active]; pentazocine-naloxone 50-0.5 mg Oral tab every 6 hours [Active]; simvastatin 40 mg Oral tab 1 tab once daily [Active]; tramadol 50 mg Oral tab [Active]; victoza 3-tita SQ 1.8 mg daily [Active]; - PMHx: 15:56 Asthma; breast cancer; chronic pain, sees pain doctor; COPD; Diabetes - IDDM; Gout; aj1 Hypertension; Hypothyroidism; - Immunization history:: Flu vaccine is up to date. - Social history:: Smoking status: Patient/guardian denies using tobacco. - Ebola Screening: : Patient denies travel to an Ebola-affected area in the 21 days before illness onset. Screenin:08 Abuse screen: Denies threats or abuse. Denies injuries from another. Nutritional mg2 screening: No deficits noted. Tuberculosis screening: No symptoms or risk factors identified. Fall Risk Ambulatory Aid- Crutches/Cane/Walker (15 pts). Assessment: 16:09 General: Appears in no apparent distress. uncomfortable, Behavior is calm, cooperative. mg2 Pain: Complains of pain in neck and right arm and posterior aspect of right shoulder and anterior aspect of right shoulder Pain does not radiate. Pain currently is 8 out of 10 on a pain scale. Quality of pain is described as aching, Pain began gradually, June 08, 2018 Is intermittent, Aggravated by increased activity, repositioning, palpation. Neuro: Level of Consciousness is awake, alert, obeys commands, Oriented to person, place, time, situation. Cardiovascular: Capillary refill < 3 seconds Patient's skin is warm and dry. Respiratory: Airway is patent Respiratory effort is even, unlabored, Respiratory pattern is regular, symmetrical. GI: No signs and/or symptoms were reported involving the gastrointestinal system. : No signs and/or symptoms were reported regarding the genitourinary system. EENT: No signs and/or symptoms were reported regarding the EENT system. Derm: Skin is intact, is healthy with good turgor, Skin is pink, warm \T\ dry. normal. Musculoskeletal: Circulation, motion, and sensation intact. Reports pain in neck and right arm and posterior aspect of right shoulder and anterior aspect of right shoulder, right side of the back. Vital Signs: 15:56 BP 157 / 86; Pulse 95; Resp 18; Temp 97.2; Pulse Ox 95% on R/A; Weight 87.54 kg (R); aj1 Height 5 ft. 4 in. (162.56 cm) (R); Pain 10/10; 16:59 Pulse 88; Resp 18; Pulse Ox 96% on R/A; mg2 18:54 BP 140 / 75; Pulse 75; Resp 18; Pulse Ox 100% on R/A; Pain 0/10; mg2 15:56 Body Mass Index 33.13 (87.54 kg, 162.56 cm) aj1 ED Course: 15:49 Patient arrived in ED. as 15:49 Naseem Sanchez MD is Private Physician. as 15:55 Triage completed. aj1 15:56 Arm band placed on Patient placed in an exam room. aj1 15:58 Efren Addison PA is PHCP. cp 15:59 Spenser Ruvalcaba MD is Attending Physician. cp 16:11 Patient has correct armband on for positive identification. Bed in low position. Pulse mg2 ox on. NIBP on. Door closed. Warm blanket given. 16:12 Kiko Ahuja, RN is Primary Nurse. mg2 16:23 EKG done, by property maintenance technician. reviewed by Efren HANNA. 3 16:37 No provider procedures requiring assistance completed. Inserted saline lock: 22 gauge mg2 in right antecubital area, using aseptic technique. Blood collected. 16:45 XRAY Chest (1 view) In Process Unspecified. EDMS 17:10 Notified Nurse Practitioner and/or Physician Automotive Airconditioning Mechanic of a critical lab result(s), sg Glucose 422. 17:54 XRAY Shoulder RIGHT 2 view In Process Unspecified. EDMS 18:13 Naseem Sanchez MD is Referral Physician. cp 18:53 IV discontinued, intact, bleeding controlled, No redness/swelling at site. Pressure mg2 dressing applied. Administered Medications: 16:36 Drug: TORadol 30 mg Route: IVP; Site: right antecubital; mg2 17:40 Follow up: Response: No adverse reaction; Marked relief of symptoms mg2 16:36 Drug: Diazepam 5 mg Route: IVP; Site: right antecubital; mg2 17:40 Follow up: Response: No adverse reaction; Marked relief of symptoms mg2 17:25 Drug: Insulin Regular Human 10 units {Co-Signature: kr2 (Alena Barrow RN).} Route: IVP; mg2 Site: right antecubital; 18:25 Follow up: Response: No adverse reaction; Blood sugar is lowered mg2 17:25 Drug: NS 0.9% 500 ml Route: IV; Rate: bolus; Site: right antecubital; mg2 18:54 Follow up: Response: No adverse reaction; IV Status: Completed infusion mg2 Point of Care Testing: Blood Glucose: 18:25 Blood Glucose: 325 mg/dL; mg2 Ranges: Outcome: 18:17 Discharge ordered by MD. cp 18:53 Discharged to home ambulatory, with friend. mg2 18:53 Condition: stable 18:53 Discharge instructions given to patient, Instructed on discharge instructions, follow up and referral plans. medication usage, Demonstrated understanding of instructions, follow-up care, medications, Prescriptions given X 1. 18:55 Patient left the ED. mg2 Signatures: Dispatcher [employer] EDMS Cara Reyes RN RN aj1 Kameron Estes RN Ioana Mcclendon Corey, PA PA cp Gardose, Michele, RN RN mg2 Saida Antunez 3 Alena Barrow RN kr2
--- NOTE | 2018-06-11 18:18 | EDPHYS ---
Physician Documentation [facility] Name: Charlotte Ruvalcaba Age: 53 yrs Sex: Female : 1965 Arrival Date: 06/11/2018 Time: 15:49 Bed 28 Private MD: Naseem Sanchez E ED Physician Spenser Ruvalcaba HPI: 06/11 16:15 This 53 yrs old Black Female presents to ER via Ambulatory with complaints of Arm Pain, cp Pain on deep breath. 06/12 16:15 The patient or guardian complains of pain, that is acute. cp 16:15 The complaints affect the right shoulder and right mid back and right subscapular area cp and right scapular area and right posterior aspect of neck and right trapezius. Context: resulted from unknown cause. Onset: The symptoms/episode began/occurred 1 week(s) ago. Modifying factors: the symptoms are aggravated by movement, palpation, inspiration. Associated signs and symptoms: Pertinent negatives: fever, numbness, weakness, cough, chest pain. Severity of symptoms: in the emergency department the symptoms are unchanged, despite home interventions. 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 15:56 LMP N/A - Hysterectomy aj1 Historical: - Allergies: 15:56 NKDA; aj1 - Home Meds: 15:56 acetaminophen-codeine 300-30 mg Oral tab [Active]; cyclobenzaprine 10 mg Oral tab 1 tab aj1 [Active]; diclofenac sodium 75 mg Oral TbEC 1 tab daily [Active]; esomeprazole magnesium 40 mg Oral cpDR 1 cap once daily [Active]; Humalog subcutaneous Sub-Q [Active]; indomethacin 75 mg Oral cpER 1 cap 2 times per day [Active]; Januvia 100 mg Oral tab 1 tab once daily [Active]; levemir SQ 60 mg daily [Active]; Levemir FlexTouch 100 unit/mL (3 mL) subcutaneous inpn [Active]; loratadine 10 mg Oral tab 1 tab once daily [Active]; losartan 50 mg Oral tab 1 tab once daily [Active]; [place] 7.5-325 mg Oral tab 1 tab every 4 hours [Active]; paroxetine HCl 10 mg Oral tab 1 tab once daily [Active]; pentazocine-naloxone 50-0.5 mg Oral tab every 6 hours [Active]; simvastatin 40 mg Oral tab 1 tab once daily [Active]; tramadol 50 mg Oral tab [Active]; victoza 3-tita SQ 1.8 mg daily [Active]; - PMHx: 15:56 Asthma; breast cancer; chronic pain, sees pain doctor; COPD; Diabetes - IDDM; Gout; aj1 Hypertension; Hypothyroidism; - Immunization history:: Flu vaccine is up to date. - Social history:: Smoking status: Patient/guardian denies using tobacco. - Ebola Screening: : Patient denies travel to an Ebola-affected area in the 21 days before illness onset. ROS: 16:25 Constitutional: Negative for body aches, chills, fever, poor PO intake. cp 16:25 Eyes: Negative for injury, pain, redness, and discharge. cp 16:25 Cardiovascular: Negative for chest pain, edema, palpitations. cp 16:25 Respiratory: Negative for cough, orthopnea, shortness of breath, wheezing. 16:25 Abdomen/GI: Negative for abdominal pain, nausea, vomiting, and diarrhea, black/tarry stool, rectal bleeding. 16:25 Back: Positive for pain at rest, pain with movement, of the right subscapular area and right scapular area and right posterior aspect of neck and right trapezius. 16:25 : Negative for urinary symptoms. 16:25 MS/extremity: Positive for pain, tenderness, of the right shoulder, Negative for injury or acute deformity, paresthesias. 16:25 Skin: Negative for cellulitis, rash. 16:25 Neuro: Negative for dizziness, headache, weakness. cp 16:25 All other systems are negative. Exam: 16:28 ECG was reviewed by the Attending Physician. cp 16:35 Constitutional: The patient appears in no acute distress, alert, awake, cp non-diaphoretic, non-toxic, well developed, well nourished. 16:35 Head/Face: Normocephalic, atraumatic. cp 16:35 Eyes: Periorbital structures: appear normal, Conjunctiva: normal, no exudate, no injection, Sclera: no appreciated abnormality, Lids and lashes: appear normal, bilaterally. 16:35 ENT: External ear(s): are unremarkable, Nose: is normal, Mouth: is normal, Posterior pharynx: is normal, airway is patent, no erythema, no exudate. 16:35 Neck: External neck: tenderness, that is moderate, of the right trapezius and right posterior aspect of neck, ROM/movement: pain, that is mild, with rotation to the left. 16:35 Chest/axilla: Inspection: normal, Palpation: is normal, no crepitus, no tenderness. 16:35 Cardiovascular: Rate: normal, Rhythm: regular, Pulses: Pulses are 2+ in right radial artery and left radial artery. Edema: is not appreciated, JVD: is not appreciated. 16:35 Respiratory: the patient does not display signs of respiratory distress, Respirations: normal, no use of accessory muscles, no retractions, no splinting, no tachypnea, labored breathing, is not present, Breath sounds: are clear throughout, no decreased breath sounds, no stridor, no wheezing. 16:35 Abdomen/GI: Exam negative for discomfort, distension, guarding, Inspection: abdomen appears normal. 16:35 Back: pain, that is moderate, of the right trapezius, right scapular area, right subscapular area and right mid back. 16:35 Musculoskeletal/extremity: Joints: All joints are normal except the right shoulder displays pain at rest, painful range of motion, tenderness. 16:35 Skin: cellulitis, is not appreciated, no rash present. 16:35 Neuro: Orientation: to person, place \T\ time. Mentation: lucid, able to follow commands, Cerebellar function: is grossly normal, Motor: moves all fours, strength is normal. Vital Signs: 15:56 BP 157 / 86; Pulse 95; Resp 18; Temp 97.2; Pulse Ox 95% on R/A; Weight 87.54 kg (R); aj1 Height 5 ft. 4 in. (162.56 cm) (R); Pain 10/10; 16:59 Pulse 88; Resp 18; Pulse Ox 96% on R/A; mg2 18:54 BP 140 / 75; Pulse 75; Resp 18; Pulse Ox 100% on R/A; Pain 0/10; mg2 15:56 Body Mass Index 33.13 (87.54 kg, 162.56 cm) aj1 MDM: 15:59 Patient medically screened. cp 16:30 Differential diagnosis: cardiac arrythmia, muscle strain, acute VA, pulmonary embolism. cp 18:15 Data reviewed: vital signs, nurses notes, lab test result(s), EKG, radiologic studies, cp plain films. Counseling: I had a detailed discussion with the patient and/or guardian regarding: the historical points, exam findings, and any diagnostic results supporting the discharge/admit diagnosis, lab results. Counseling: I had a detailed discussion with the patient and/or guardian regarding: radiology results, the need for outpatient follow up, a family practitioner, to return to the emergency department if symptoms worsen or persist or if there are any questions or concerns that arise at home. Response to treatment: the patient's symptoms have markedly improved after treatment, and as a result, I will discharge patient. 06/11 16:11 Order name: Basic Metabolic Panel; Complete Time: 17:12 cp 06/11 17:12 Interpretation: Normal except: NA 133; CL 96; GLUC 422. cp 06/11 16:11 Order name: CBC with Diff; Complete Time: 17:05 cp 06/11 17:05 Interpretation: Normal except: WBC 11.2. cp 06/11 16:11 Order name: LFT's; Complete Time: 17:12 cp 06/11 16:11 Order name: Magnesium; Complete Time: 17:12 cp 06/11 16:11 Order name: NT PRO-BNP; Complete Time: 17:12 cp 06/11 16:11 Order name: PT-INR; Complete Time: 17:05 cp 06/11 16:11 Order name: Troponin (emerg Dept Use Only); Complete Time: 17:12 cp 06/11 16:11 Order name: XRAY Chest (1 view); Complete Time: 17:05 cp 06/11 17:06 Interpretation: Report review. cp 06/11 16:11 Order name: D-Dimer; Complete Time: 17:05 cp 06/11 17:06 Interpretation: D-DIMER 253; Reviewed. cp 06/11 17:28 Order name: XRAY Shoulder RIGHT 2 view; Complete Time: 18:02 cp 06/11 17:45 Order name: Urine Dipstick--Ancillary (enter results); Complete Time: 18:02 eb 06/11 18:02 Interpretation: Normal except: UGLUC 2+; UBLD 2+. cp 06/11 16:11 Order name: EKG; Complete Time: 16:12 cp 06/11 16:11 Order name: Cardiac monitoring; Complete Time: 16:36 cp 06/11 16:11 Order name: EKG - Nurse/Tech; Complete Time: 16:36 cp 06/11 16:11 Order name: IV Saline Lock; Complete Time: 16:37 cp 06/11 16:11 Order name: Labs collected and sent; Complete Time: 16:37 cp 06/11 16:11 Order name: O2 Per Protocol; Complete Time: 16:37 cp 06/11 16:11 Order name: O2 Sat Monitoring; Complete Time: 16:37 cp 06/11 17:24 Order name: Urine Dipstick-Ancillary (obtain specimen); Complete Time: 17:40 cp EC:28 Rate is 91 beats/min. Rhythm is regular. NM interval is normal. QRS interval is normal. cp QT interval is normal. T waves are Flattened in lead aVL. Interpreted by me. Reviewed by me. Administered Medications: 16:36 Drug: TORadol 30 mg Route: IVP; Site: right antecubital; mg2 17:40 Follow up: Response: No adverse reaction; Marked relief of symptoms mg2 16:36 Drug: Diazepam 5 mg Route: IVP; Site: right antecubital; mg2 17:40 Follow up: Response: No adverse reaction; Marked relief of symptoms mg2 17:25 Drug: Insulin Regular Human 10 units {Co-Signature: kr2 (Alena Barrow RN).} Route: IVP; mg2 Site: right antecubital; 18:25 Follow up: Response: No adverse reaction; Blood sugar is lowered mg2 17:25 Drug: NS 0.9% 500 ml Route: IV; Rate: bolus; Site: right antecubital; mg2 18:54 Follow up: Response: No adverse reaction; IV Status: Completed infusion mg2 Point of Care Testing: Blood Glucose: 18:25 Blood Glucose: 325 mg/dL; mg2 Ranges: Critical Glucose Levels:Adult <50 mg/dl or >400 mg/dl <40 mg/dl or >180 mg/dl Disposition: 18:57 Co-signature as Attending Physician, Spenser Ruvalcaba MD. rn Disposition: 06/11/18 18:17 Discharged to Home. Impression: Pain in right shoulder, Right Neck and Mid Back Pain, Hyperglycemia, unspecified. - Condition is Stable. - Discharge Instructions: Hyperglycemia, Musculoskeletal Pain, Shoulder Pain, Blood Glucose Monitoring, Adult, Heat Therapy. - Prescriptions for Baclofen 10 mg Oral Tablet - take 1 tablet by ORAL route 3 times per day no driving while taking medication; 20 tablet. - Medication Reconciliation Form, Thank You Letter, Antibiotic Education, Prescription Opioid Use form. - Follow up: Naseem Sanchez MD; When: 2 - 3 days; Reason: Recheck today's complaints. - Problem is new. - Symptoms have improved. Signatures: Dispatcher [employer] EDMS Cara Reyes RN RN aj1 Spenser Ruvalcaba MD MD rn Efren Addison PA PA cp Kiko Ahuja RN RN mg2 Alena Barrow RN kr2 Corrections: (The following items were deleted from the chart) 18:55 18:17 06/11/2018 18:17 Discharged to Home. Impression: Pain in right shoulder; Right mg2 Neck and Mid Back Pain; Hyperglycemia, unspecified. Condition is Stable. Forms are Medication Reconciliation Form, Thank You Letter, Antibiotic Education, Prescription Opioid Use. Follow up: Naseem Sanchez; When: 2 - 3 days; Reason: Recheck today's complaints. Problem is new. Symptoms have improved. cp 06/12 17:27 17:11 Data reviewed: vital signs, nurses notes, cp cp
[2018-06-11 18:59] VITALS: TEMP 97.2
[2018-06-11 19:02] VITALS: BP 140/75; O2SAT 100
--- NOTE | 2018-06-12 07:51 | EKG ---
Test Date: 2018-06-11 Test Time: 16:22:26 [employer] Machine Operator: SUHAS MEASUREMENT RESULTS: Intervals: Rate: 91 HI: 132 QRSD: 80 QT: 372 QTc: 457 [place]: P: 58 HI: 132 QRS: 23 T: 67 INTERPRETIVE STATEMENTS: Normal sinus rhythm Possible Left atrial enlargement Septal infarct, age undetermined Abnormal ECG Compared to ECG 01/10/2018 15:47:41 Myocardial infarct finding now present Electronically Signed On 06-12-18 07:48:50 CDT by Varghese Hoover
== END 2018-06-11 18:55 | disposition home or self-care (01) ==
LOC: ER 15:46
DX: M54.89 Other dorsalgia (principal); M54.2 Cervicalgia; E11.65 Type 2 diabetes mellitus with hyperglycemia; I10 Essential (primary) hypertension; E03.9 Hypothyroidism, unspecified; J44.9 Chronic obstructive pulmonary disease, unspecified; Z79.4 Long term (current) use of insulin; Z85.3 Personal history of malignant neoplasm of breast
CPT/HCPCS: 36415; 71045; 73030; 80048; 80076; 81003; 82962; 83735; 83880; 84484; 85025; 85379; 85610; 93005; 96361; 96374; 96375; 99284; J3360

== ENCOUNTER 2018-08-10 17:37 | Emergency (ER) | payer OTHER ==
--- OUTSIDE RECORDS SUMMARY | 2018-08-10 17:40 | XMS REPORT | Clinical Summary ---
:1965 Author Organization [facility] Address [address] [place] [address] Care Team Providers Name Role Phone Radhames Ramos PA-C Primary Care Provider Allergies No Known Allergies Medications Medication Sig Dispensed Refills Start Date End Date Status HYDROcodone-acetamino Take 1 tablet by 0 Active phen (NORCO) 7.5-325 mouth 3 (three) mg per tablet times a day. methocarbamol Take 750 mg by 0 Active (ROBAXIN) 500 MG mouth 3 (three) tablet times a day. Takes 500 mg 1.5 TAB. (750 mg) gabapentin (GRALISE) Take 600 mg by 0 Active 600 mg tablet mouth daily. extended release 24 hr montelukast Take 10 mg by 0 Active (SINGULAIR) 10 mg mouth daily. tablet esomeprazole (NexIUM) Take 40 mg by 0 Active 40 MG capsule mouth daily. pantoprazole Take 40 mg by 0 Active (PROTONIX) 40 MG EC mouth daily. tablet amitriptyline Take 25 mg by 0 Active (ELAVIL) 25 MG tablet mouth every morning. losartan-hydrochlorot Take 1 tablet by 0 Active hiazide (HYZAAR) mouth every 100-25 mg per tablet morning. simvastatin (ZOCOR) Take 10 mg by 0 Active 10 MG tablet mouth nightly. estradiol (ESTRACE) Take 0.5 mg by 0 Active 0.5 MG tablet mouth daily. tiZANidine (ZANAFLEX) Take 2 mg by 0 Active 2 MG tablet mouth 2 (two) times a day as needed for muscle spasms. liraglutide (VICTOZA) Inject 1.8 mg 0 Active 0.6 mg/0.1 mL (18 under the skin mg/3 mL) pen injector daily. insulin degludec Inject 85 Units 0 Active (TRESIBA FLEXTOUCH under the skin U-100) 100 unit/mL (3 every morning. mL) insulin pen aspirin (ECOTRIN) 81 Take 81 mg by 0 Active MG enteric coated mouth daily. tablet MAGNESIUM ORAL Take 1 tablet by 0 Active mouth daily. Pure Magnesium albuterol (PROAIR Inhale 1 puff 3 0 Active HFA,PROVENTIL (three) times a HFA,VENTOLIN HFA) 90 day as needed mcg/actuation inhaler for wheezing or shortness of breath. meloxicam (MOBIC) 15 Take 15 mg by 0 Active mg tablet mouth daily. DULoxetine (CYMBALTA) Take 20 mg by 0 Active 20 MG capsule mouth daily. methocarbamol Take 1 tablet 40 tablet 3 07/16/2018 Active (ROBAXIN-750) 750 MG (750 mg total) tablet by mouth every 8 (eight) hours as needed for muscle spasms for up to 40 doses. docusate sodium Take 1 capsule 30 capsule 0 07/16/2018 08/15/2018 Active (COLACE) 100 MG (100 mg total) capsule by mouth 2 (two) times a day for 30 days. Active Problems Problem Noted Date Degeneration of intervertebral disc of lumbosacral region 07/16/2018 Encounters Date Type Specialty Care Team Description 08/03/2018 Hospital Encounter Radiology Parish Rivers, DDD (degenerative MD disc disease), lumbar 07/22/2018 Patient Outreach Quality Caren Young, PharmD 07/16/2018 Anesthesia Event General Surgery Daria Paige MD 07/16/2018 Surgery General Surgery Parish Rivers, LUMBAR FIVE - SACRAL MD ONE ANTERIOR LUMBAR INTERBODY FUSION 07/16/2018 - Hospital Encounter General Internal Parish Rivers, Degeneration of 07/21/2018 Medicine intervertebral disc Eliseo Carrera of lumbosacral region MD [facility] 07/15/2018 Pre-Admit Testing Pre-Admission Parish Rivers, Preop testing Appointment Testing (Primary Dx) after 08/09/2017 Family History Medical History Relation Name Comments COPD Mother Hyperlipidemia Mother Hypertension Mother Relation Name Status Comments Father unknown history Mother Social History Tobacco Use Types Packs/Day Years Used Date Former Smoker Cigarettes 1 1974 - 1997 Smokeless Tobacco: Never Used Alcohol Use Drinks/Week oz/Week Comments No Sex Assigned at Date Recorded Not on file Job Start Date Occupation Industry Not on file Not on file Not on file Travel History Travel Start Travel End No recent travel history available. Last Filed Vital Signs Vital Sign Reading Time Taken Blood Pressure 160/62 07/21/2018 11:14 AM COSTUMED CHARACTER Pulse 82 07/21/2018 11:56 AM COSTUMED CHARACTER Temperature 36.9 C (98.4 F) 07/21/2018 11:14 AM COSTUMED CHARACTER Respiratory Rate 18 07/21/2018 11:56 AM COSTUMED CHARACTER Oxygen Saturation 97% 07/21/2018 11:56 AM COSTUMED CHARACTER Inhaled Oxygen Concentration - - Weight 87.5 kg (192 lb 16 oz) 07/15/2018 8:48 AM COSTUMED CHARACTER Height 162.6 cm (5' 4") 07/15/2018 8:48 AM COSTUMED CHARACTER Body Mass Index 33.13 07/15/2018 8:48 AM COSTUMED CHARACTER Plan of Treatment Health Maintenance Due Date Last Done Comments CERVICAL CANCER SCREENING 1984 BREAST CANCER SCREENING 2013 COLON CANCER SCREENING 2013 SHINGRIX VACCINE (1 of 2) 2013 INFLUENZA VACCINE 04/07/2018 08/27/2009 HEPATITIS B VACCINES Aged Out No longer eligible based on patient's age to complete this topic IPV VACCINES Aged Out No longer eligible based on patient's age to complete this topic MENINGOCOCCAL VACCINE Aged Out No longer eligible based on patient's age to complete this topic Implants Implanted Type Area Flow Machine Operator Device Shelf Model / Serial Identifier Expiration / Lot Date Chip Canc Allograft Leader Crshd 15cc 0.1-4mm - [id number] Human Tissue Anterio MUSCULOSKELETAL 05/03/2021 [id number] / Implanted: Qty: 1 on 07/16/2018 by Parish Rivers MD Implants r: TRANSPLANT / Spine, FOUNDATION [id number] Multi-L evel Kit Bone Grft Lmbr Tprd 8ml Xxl Infuse - [id number] Human Tissue Anterio [employer] SPINAL [id number] / Implanted: Qty: 1 on 07/16/2018 by Parish Rivers MD Implants r: AND [employer] / Spine, Multi-L evel Interbody [id number] Medium - 18 Deg 16mm - [id number] - [id number] [id number] IMPLANT Anterio [employer] 11/20/2024 [id number] / Implanted: Qty: 1 on 07/16/2018 by Parish Rivers MD DEVICES r: SOFAMOR DANEK 74DP / Spine, 74DP Multi-L evel Sovereign Fa Screw [id number] 5.5 X 25mm - [id number] [id number] IMPLANT Anterio [employer] [id number] / Implanted: Qty: 1 on 07/16/2018 by Parish Rivers MD DEVICES r: SOFAMOR DANEK / Spine, Multi-L evel Set Screw [id number] 5.5 Ti Ns Brk Off - [id number] [id number] IMPLANT N/A: [employer] [id number] / Implanted: 07/16/2018 (Quantity not on file) DEVICES N/A SOFAMOR DANEK / Sergio [id number] 5.5 Ccm Ns Curv 35mm - [id number] [id number] IMPLANT Anterio [employer] [id number] / Implanted: 07/16/2018 (Quantity not on file) DEVICES r: SOFAMOR DANEK / Spine, VENDOR LOT NA Multi-L evel Screw [id number] 5.5 Mas 6.5x55 Cc - [id number] IPM IMPLANT N/A: [employer] [id number] / Implanted: 07/16/2018 (Quantity not on file) DEVICES N/A SOFAMOR DANEK / Screw [id number] 5.5 Mas 6.5x50 Cc - Svendor Lot Na - [id number] IPM IMPLANT Posteri [employer] [id number] / Implanted: Qty: 1 on 07/16/2018 by Parish Rivers MD DEVICES or: SOFAMOR DANEK VENDOR LOT NA / Spine, VENDOR LOT NA Sacral Screw [id number] 5.5 Mas 6.5x50 Cc - [id number] [id number] IMPLANT Posteri [employer] [id number] / Implanted: Qty: 1 on 07/16/2018 by Parish Rivers MD DEVICES or: SOFAMOR DANEK / Spine, VENDOR LOT NA Sacral Washer Bone Grft Ti 17mm - [id number] Orthopedic Anterio [employer] SPINAL [id number] / Implanted: Qty: 1 on 07/16/2018 by Parish Rivers MD Trauma r: AND BIOLOGICS / Implants Spine, VENDOR LOT NA Multi-L evel Procedures Procedure Name Priority Date/Time Associated Comments Diagnosis XR LUMBAR SPINE AP Routine 08/03/2018 1:37 PM DDD (degenerative Results for this LATERAL FLEXION AND COSTUMED CHARACTER disc disease), procedure are in EXTENSION lumbar the results section. POC GLUCOSE Routine 07/21/2018 11:14 AM Results for this COSTUMED CHARACTER procedure are in the results section. POC GLUCOSE Routine 07/21/2018 6:40 AM Results for this COSTUMED CHARACTER procedure are in the results section. POC GLUCOSE Routine 07/21/2018 5:26 AM Results for this COSTUMED CHARACTER procedure are in the results section. POC GLUCOSE Routine 07/20/2018 4:55 PM Results for this COSTUMED CHARACTER procedure are in the results section. POC GLUCOSE Routine 07/20/2018 11:06 AM Results for this COSTUMED CHARACTER procedure are in the results section. POC GLUCOSE Routine 07/20/2018 6:14 AM Results for this COSTUMED CHARACTER procedure are in the results section. POC GLUCOSE Routine 07/19/2018 9:27 PM Results for this COSTUMED CHARACTER procedure are in the results section. XR ABDOMEN 1 VW Routine 07/19/2018 6:20 PM Results for this COSTUMED CHARACTER procedure are in the results section. POC GLUCOSE Routine 07/19/2018 4:53 PM Results for this COSTUMED CHARACTER procedure are in the results section. POC GLUCOSE Routine 07/19/2018 11:50 AM Results for this COSTUMED CHARACTER procedure are in the results section. ESTIMATED GFR Routine 07/19/2018 6:40 AM Results for this COSTUMED CHARACTER procedure are in the results section. BASIC METABOLIC Routine 07/19/2018 6:40 AM Results for this PANEL COSTUMED CHARACTER procedure are in the results section. HC COMPLETE BLD Routine 07/19/2018 6:40 AM Results for this COUNT W/AUTO DIFF COSTUMED CHARACTER procedure are in the results section. POC GLUCOSE Routine 07/19/2018 5:17 AM Results for this COSTUMED CHARACTER procedure are in the results section. POC GLUCOSE Routine 07/18/2018 8:30 PM Results for this COSTUMED CHARACTER procedure are in the results section. POC GLUCOSE Routine 07/18/2018 3:31 PM Results for this COSTUMED CHARACTER procedure are in the results section. POC GLUCOSE Routine 07/18/2018 11:21 AM Results for this COSTUMED CHARACTER procedure are in the results section. ESTIMATED GFR Routine 07/18/2018 6:15 AM Results for this COSTUMED CHARACTER procedure are in the results section. MAGNESIUM LEVEL Routine 07/18/2018 6:15 AM Results for this COSTUMED CHARACTER procedure are in the results section. BASIC METABOLIC Routine 07/18/2018 6:15 AM Results for this PANEL COSTUMED CHARACTER procedure are in the results section. HC COMPLETE BLD Routine 07/18/2018 6:15 AM Results for this COUNT W/AUTO DIFF COSTUMED CHARACTER procedure are in the results section. POC GLUCOSE Routine 07/18/2018 5:38 AM Results for this COSTUMED CHARACTER procedure are in the results section. POC GLUCOSE Routine 07/17/2018 8:21 PM Results for this COSTUMED CHARACTER procedure are in the results section. POC GLUCOSE Routine 07/17/2018 4:48 PM Results for this COSTUMED CHARACTER procedure are in the results section. POC GLUCOSE Routine 07/17/2018 11:13 AM Results for this COSTUMED CHARACTER procedure are in the results section. POC GLUCOSE Routine 07/17/2018 7:26 AM Results for this COSTUMED CHARACTER procedure are in the results section. ESTIMATED GFR Routine 07/17/2018 6:15 AM Results for this COSTUMED CHARACTER procedure are in the results section. PHOSPHORUS LEVEL Routine 07/17/2018 6:15 AM Results for this COSTUMED CHARACTER procedure are in the results section. MAGNESIUM LEVEL Routine 07/17/2018 6:15 AM Results for this COSTUMED CHARACTER procedure are in the results section. BASIC METABOLIC Routine 07/17/2018 6:15 AM Results for this PANEL COSTUMED CHARACTER procedure are in the results section. HC COMPLETE BLD Routine 07/17/2018 6:15 AM Results for this COUNT W/AUTO DIFF COSTUMED CHARACTER procedure are in the results section. POC GLUCOSE Routine 07/16/2018 8:12 PM Results for this COSTUMED CHARACTER procedure are in the results section. ESTIMATED GFR Routine 07/16/2018 5:32 PM Results for this COSTUMED CHARACTER procedure are in the results section. BASIC METABOLIC Routine 07/16/2018 5:32 PM Results for this PANEL COSTUMED CHARACTER procedure are in the results section. POC GLUCOSE Routine 07/16/2018 5:03 PM Results for this COSTUMED CHARACTER procedure are in the results section. POC GLUCOSE Routine 07/16/2018 4:00 PM Results for this COSTUMED CHARACTER procedure are in the results section. POC GLUCOSE Routine 07/16/2018 3:25 PM Results for this COSTUMED CHARACTER procedure are in the results section. POC GLUCOSE Routine 07/16/2018 2:58 PM Results for this COSTUMED CHARACTER procedure are in the results section. [place] > 1 HOUR Routine 07/16/2018 2:30 PM Results for this COSTUMED CHARACTER procedure are in the results section. POC GLUCOSE Routine 07/16/2018 2:23 PM Results for this COSTUMED CHARACTER procedure are in the results section. ARTERIAL LINE Routine 07/16/2018 9:16 AM COSTUMED CHARACTER Procedure Note - Selvin Novoa MD - 07/16/2018 9:16 AM COSTUMED CHARACTER R Radial Arterial Line Performed by: SELVIN NOVOA Authorized by: SELVIN NOVOA Patient Location: OR Start Time: 07/16/2018 8:25 AM End Time: 07/16/2018 8:30 AM Staff: Anesthesiologist: SELVIN NOVOA Performed by: Anesthesiologist Pre-procedure: patient identified, IV checked, site and side verified, risks and benefits discussed, procedure verified, surgical consent complete, patient position confirmed, monitors and equipment checked and pre-op evaluation complete MSBT: antiseptic used, all elements of maximal sterile barrier technique followed, hand hygiene performed, cap/gown used by other personnel and solutions labeled TIme Out Performed: 07/16/2018 8:25 AM Indications: Indications: multiple ABGs and hemodynamic monitoring Anesthesia: Anesthesia: General Procedure Details: Arterial Line placement: Placed post induction Line placement site: Radial Line placement side: Right Arterial line gauge: 20 G Number of attempts: 1 Ultrasound guidance used: No Post-procedure: Post-procedure: Sterile dressing applied Post procedure circulation, sensation, movement: Normal Patient tolerance: Patient tolerated the procedure well with no immediate complications Notes: No hematoma noted, waveform present NM AN ELECTIVE ENDOTRACHEAL AIRWAY Routine 07/16/2018 8:46 AM COSTUMED CHARACTER Procedure Note - Latasha Sigala CRNA - 07/16/2018 8:46 AM COSTUMED CHARACTER Airway Date/Time: 07/16/2018 8:24 AM Performed by: LATASHA SIGALA Authorized by: SELVIN NOVOA Location: OR Urgency: Elective Difficult Airway: No Anesthesiologist: SELVIN NOVOA Resident/CELL LINER/AA: LATASHA SIGALA Preoxygenated with 100% O2: Yes C-spine Precautions Maintained Throughout: Yes Mask Ventilation: Easy mask Final Airway Type: Endotracheal airway Final Endotracheal Airway: ETT Technique Used: Direct laryngoscopy Devices/Methods Used in Placement: Intubating stylet Insertion Site: Oral Blade Type: Velazquez Laryngoscope Blade/Videolaryngoscope Blade Size: 2 ETT Size (mm): 7.0 Measured from: Lips ETT to Lips (cm): 21 Placement Verified by: CO2 detection, direct visualization and equal breath sounds Laryngoscopic view: Grade I - full view of glottis Rapid Sequence Induction (RSI): No Number of Attempts at Approach: 1 URINALYSIS SCREEN Timed 07/16/2018 8:27 Degeneration of Results for this AND MICROSCOPY, WITH AM COSTUMED CHARACTER intervertebral disc of procedure are in REFLEX TO CULTURE lumbosacral region the results section. URINE CULTURE Timed 07/16/2018 8:27 Results for this AM COSTUMED CHARACTER procedure are in the results section. GRAM STAIN Timed 07/16/2018 8:27 Results for this AM COSTUMED CHARACTER procedure are in the results section. POC GLUCOSE Routine 07/16/2018 7:01 Results for this AM COSTUMED CHARACTER procedure are in the results section. TYPE AND SCREEN Routine 07/15/2018 9:45 Preop testing Results for this AM COSTUMED CHARACTER procedure are in the results section. after 08/09/2017 Results XR Lumbar Spine Ap Lateral Flexion And Extension (08/03/2018 1:37 PM COSTUMED CHARACTER) Narrative Performed At EXAMINATION:XR LUMBAR SPINE AP LATERALFLEXION AND EXTENSION [facility] CLINICAL HISTORY:M51.36 Other intervertebral disc degenerationlumbar region, LUMBAR DDD IMPRESSION: 4 views of the lumbar spine were obtained. There is posterior fusion with bilateral pedicle screws and interlocking rods between L5 and S1 level with intervertebral disc graft and anterior anchoring screw at S1. The surgical hardware demonstrates solid in incorporation and integration in the bone with no evidence for loosening. There is no hardware fracture. There is a posterior laminectomy and facetectomy. The lumbar spine alignment is unremarkable. There is no fracture or subluxation. The flexion-extension views demonstrates no evidence of instability or abnormal motion. [id number] Procedure Note Hm Interface, Radiology Results Incoming - 08/04/2018 9:48 AM COSTUMED CHARACTER EXAMINATION: XR LUMBAR SPINE AP LATERAL FLEXION AND EXTENSION CLINICAL HISTORY: M51.36 Other intervertebral disc degeneration lumbar region , LUMBAR DDD IMPRESSION: 4 views of the lumbar spine were obtained. There is posterior fusion with bilateral pedicle screws and interlocking rods between L5 and S1 level with intervertebral disc graft and anterior anchoring screw at S1. The surgical hardware demonstrates solid in incorporation and integration in the bone with no evidence for loosening. There is no hardware fracture. There is a posterior laminectomy and facetectomy. The lumbar spine alignment is unremarkable. There is no fracture or subluxation. The flexion-extension views demonstrates no evidence of instability or abnormal motion. [id number] Performing Organization Address City/State/Zipcode Phone Number [facility] [address] [place] [address] POC glucose (07/21/2018 11:14 AM COSTUMED CHARACTER)Only the most recent of25 resultswithin the time period is included. POC glucose 133 (H) 65 - 99 mg/dL [facility] Comment: RN Notified Meter ID: [id number] Career Agent: Osman Perez Performing Organization Address City/State/Zipcode Phone Number [facility] DEPARTMENT OF PATHOLOGY [address] [place] [address] AND GENOMIC MEDICINE [facility] [address] XR Abdomen 1 Vw (07/19/2018 6:20 PM COSTUMED CHARACTER) Narrative Performed At EXAMINATION:XR ABDOMEN 1 VW [facility] CLINICAL HISTORY: 53 years 1965 rule out ileus COMPARISON:None. IMPRESSION: 1.Bowel gas pattern is nonspecific, nonobstructive. No dilated air-filled loops of bowel. 2.No plain film evidence of free air. Visualized lung bases clear. 3.Surgical clips over the right upper quadrant. Postsurgical changes in the spine with presumed overlying drain. [facility]-[id number] Procedure Note Interface, Radiology Results Incoming - 07/19/2018 7:14 PM COSTUMED CHARACTER EXAMINATION: XR ABDOMEN 1 VW CLINICAL HISTORY: 53 years 1965 rule out ileus COMPARISON: None. IMPRESSION: 1. Bowel gas pattern is nonspecific, nonobstructive. No dilated air-filled loops of bowel. 2. No plain film evidence of free air. Visualized lung bases clear. 3. Surgical clips over the right upper quadrant. Postsurgical changes in the spine with presumed overlying drain. [facility]-[id number] Performing Organization Address City/[facility]/Zipcode Phone Number [facility] [address] [place] [address] Estimated GFR (07/19/2018 6:40 AM COSTUMED CHARACTER)Only the most recent of4 resultswithin the time period is included. Estimated GFR >=90 mL/min/1.73 m2 [facility] Comment: [facility] CatergoryUnitsInterpretation G1 >=90 Normal or high G2 60-89Mildly decreased [id number] to moderately decreased L4i86-51Oipacofujj to severely decreased G4 15-29Severely decreased G5 <15Kidney failure The eGFR was calculated using the Chronic Kidney Disease Epidemiology Collaboration (CKD-EPI) equation. Interpretation is based on recommendations of the National Kidney Foundation-Kidney Disease Outcomes Quality Initiative (NKF-KDOQI) published in 2014. Specimen Plasma specimen Performing Organization Address City/State/Zipcode Phone Number [facility] DEPARTMENT OF PATHOLOGY [id number] [place] [address] [place] [address] HOSPITAL CBC with platelet and differential (07/19/2018 6:40 AM COSTUMED CHARACTER)Only the most recent of3 resultswithin the time period is included. WBC 10.1 4.5 - 11.0 k/uL [facility] RBC 3.27 (L) 4.20 - 5.50 m/uL [facility] HGB 10.1 (L) 12.0 - 16.0 g/dL [facility] HCT 30.3 (L) 37.0 - 47.0 % [facility] MCV 92.7 82.0 - 100.0 fL [facility] MCH 30.9 27.0 - 34.0 pg [facility] MCHC 33.3 31.0 - 37.0 g/dL [facility] RDW - SD 41.5 37.0 - 55.0 fL [facility] MPV 10.3 6.9 - 11.0 fL [facility] Platelet count 291 150 - 400 K/uL [facility] Nucleated RBC 0.00 /100 WBC [facility] Neutrophils 63.8 39.0 - 69.0 % [facility] Lymphocytes 24.1 (L) 25.0 - 45.0 % [facility] Monocytes 9.5 0.0 - 10.0 % [facility] Eosinophils 1.7 0.0 - 5.0 % [facility] Basophils 0.6 0.0 - 1.0 % [facility] Immature granulocytes 0.3 0.0 - 1.0 % [facility] Specimen Blood Performing Organization Address City/[facility]/Zipcode Phone Number [facility] DEPARTMENT OF PATHOLOGY [address] [place] [address] AND GENOMIC MEDICINE [facility] [address] Basic metabolic panel (07/19/2018 6:40 AM COSTUMED CHARACTER)Only the most recent of4 resultswithin the time period is included. Sodium 140 135 - 148 mEq/L [facility] Potassium 3.8 3.5 - 5.0 mEq/L [facility] Chloride 101 98 - 112 mEq/L [facility] CO2 27 24 - 31 mEq/L [facility] Anion gap 12@ANIO 7 - 15 mEq/L [facility] BUN 8 6 - 20 mg/dL [facility] Creatinine 0.41 (L) 0.50 - 0.90 mg/dL [facility] Glucose 197 (H) 65 - 99 mg/dL [facility] Calcium 8.6 8.3 - 10.2 mg/dL [facility] Specimen Plasma specimen Performing Organization Address [facility] Phone Number [facility] DEPARTMENT OF PATHOLOGY [address] [place] [address] AND [employer] [place] [address] HOSPITAL Magnesium level (07/18/2018 6:15 AM COSTUMED CHARACTER)Only the most recent of2 resultswithin the time period is included. Magnesium 1.4 (L) 1.6 - 2.6 mg/dL [facility] Specimen Plasma specimen Performing Organization Address [facility] Phone Number [facility] DEPARTMENT OF PATHOLOGY [address] [place] [address] AND [facility]OM[facility] MEDICINE [address] Phosphorus level (07/17/2018 6:15 AM COSTUMED CHARACTER) Phosphorus 2.6 2.4 - 4.5 mg/dL [facility] DEPARTMENT OF PATHOLOGY AND [facility] Specimen Plasma specimen Performing Organization Address City/[facility]/Zipcode Phone Number [facility] DEPARTMENT OF PATHOLOGY [address] [place] [address] AND [employer] [facility] [place] > I Hour (07/16/2018 2:30 PM COSTUMED CHARACTER) Narrative Performed At EXAMINATION:OR [place] 1 HOUR [facility] IMPRESSION: Fluoroscopy was provided. No radiologist present.Please see procedure report for discussion of procedure, findings and fluoroscopic time. FLUOROSCOPIC TIME:36.2 seconds NUMBER OF IMAGES: 4 [facility]-[id number] Procedure Note Interface, Radiology Results Incoming - 07/16/2018 3:07 PM COSTUMED CHARACTER EXAMINATION: [place] 1 HOUR IMPRESSION: Fluoroscopy was provided. No radiologist present. Please see procedure report for discussion of procedure, findings and fluoroscopic time. FLUOROSCOPIC TIME: 36.2 seconds NUMBER OF IMAGES: 4 [id number] Performing Organization Address City/[facility] Phone Number [facility] [address] [place] [address] Urinalysis screen and microscopy, with reflex to culture (07/16/2018 8:27 AM COSTUMED CHARACTER) Specimen site Catheterized [facility] DEPARTMENT OF PATHOLOGY AND GENOMIC MEDICINE Color, UA Yellow [facility] DEPARTMENT OF PATHOLOGY AND GENOMIC MEDICINE Appearance, UA Sl Cloudy [facility] DE[facility] OF [facility]OLOGY AND GENOMIC MEDICINE Specific gravity, UA 1.019 1.001 - 1.030 [facility]OLOG[facility] AND GENOMIC MEDICINE pH, UA 6.0 5.0 - 9.0 [facility] OF [facility]OLOGY AND GENOMIC MEDICINE Protein, UA Negative Negative [facility] DEPARTMENT OF [facility]OLOGY AND GENOMIC MEDICINE Glucose, UA Negative Negative [facility] DEPARTMENT OF PATHOLOGY AND GENOMIC MEDICINE Ketones, UA Negative Negative [facility]PART[facility] OF [facility]OLOGY AND GENOMIC MEDICINE Bilirubin, UA Negative Negative [facility] OF [facility]OLOGY AND GENOMIC MEDICINE Blood, UA Negative Negative [facility] OF [facility]OLOGY AND GENOMIC MEDICINE Nitrite, UA Negative Negative [facility] OF [facility]OLOGY AND GENOMIC MEDICINE Urobilinogen, UA <2.0 <2.0 E.U./dL [facility] OF [facility]OLOGY AND GENOMIC MEDICINE Leukocyte esterase, UA Negative Negative [facility] DE[facility] OF PATHOLOGY AND GENOMIC MEDICINE Epithelial cells, UA 1 /HPF [facility] OF PATHOLOGY AND GENOMIC MEDICINE Round epithelial cells, UA <1 0 - 5 /HPF [facility] OF PATHOLOGY AND GENOMIC MEDICINE WBC, UA 8 (H) 0 - 4 /HPF [facility]MENT OF PATHOLOGY AND GENOMIC MEDICINE RBC, UA 1 0 - 5 /HPF [facility] OF PATHOLOGY AND GENOMIC MEDICINE Bacteria, UA None seen None seen [facility] OF [facility]OLOGY AND GENOMIC MEDICINE Yeast, UA None seen [facility]MENT OF PATHOLOGY AND GENOMIC MEDICINE Yeast with pseudohyphae, UA None seen [facility] DE[facility] OF [facility]OLOGY AND GENOMIC MEDICINE Specimen Urine - Urine, catheter Performing Organization Address [facility] Phone Number [facility] DEPARTMENT OF PATHOLOGY [address] [place] [address] AND GENOMIC MEDICINE Gram stain (07/16/2018 8:27 AM COSTUMED CHARACTER) Gram stain result Rare WBC's [facility] DEPARTMENT OF PATHOLOGY No organisms seen AND GENOMIC MEDICINE Comment: Specimen Information Specimen Source: Urine Specimen Site: Catheterized Specimen Urine - Catheterized Performing Organization Address [facility] Phone Number [facility] DE[facility] AND [address] [place] [id number] GENOMIC MEDICINE Urine culture (07/16/2018 8:27 AM COSTUMED CHARACTER) Urine culture isolate ~No growth after 10 [facility] DEPARTMENT OF hours PATHOLOGY AND GENOMIC Mixed linda <=10-3 MEDICINE col/cc Comment: Specimen Information Specimen Source: Urine Specimen Site: Catheterized Specimen Urine - Catheterized Performing Organization Address [facility] Phone Number [facility] DE[facility]OLOG[facility] AND [address] [place] [phone] GENOMIC MEDICINE Type and screen (07/15/2018 9:45 AM COSTUMED CHARACTER) ABO grouping A [facility] DEPARTMENT OF PATHOLOGY AND GENOMIC MEDICINE Rh type POS [facility] DEPARTMENT OF PATHOLOGY AND GENOMIC MEDICINE Antibody screen (gel) NEG [facility] DEPARTMENT OF PATHOLOGY AND GENOMIC MEDICINE Specimen Blood Performing Organization Address [facility]/Zipcode Phone Number [facility] DEPARTMENT OF PATHOLOGY [address] [place] [address] AND GENOMIC MEDICINE after 08/09/2017 Insurance Payer Benefit Plan / Group Subscriber ID Type Phone Address MEDICAID MEDICAID xxxxxxxxx Medicaid [employer] HMO MCR xxxxxxxx HMO ADV Advance Directives Patient has advance care planning documents on file. For more information, please contact:Jordon Garay[address] [place] [address]
--- NOTE | 2018-08-10 18:36 | ER ---
Nurse's Notes [facility] Name: Charlotte Ruvalcaba Age: 53 yrs Sex: Female : 1965 Arrival Date: 08/10/2018 Time: 17:41 Bed 28 Private MD: Naseem Sanchez E Diagnosis: Disruption of external operation (surgical) wound, not elsewhere classified-bleeding controlled Presentation: 08/10 17:47 Presenting complaint: Patient states: had back surgery on 07/16/18 to L4-L5, healed sv incision is the the lower abdomen horizontally. Pt went to bathroom today and started having bleeding. Pt's incision has opened up about 2 cm with no bleeding noted. Dr Parish Swann performed the surgery at [facility] in [facility]. Transition of care: patient was not received from another setting of care. Onset of symptoms was August 10, 2018. Care prior to arrival: None. 17:47 Method Of Arrival: Wheelchair sv 17:47 Acuity: RASHAD 3 sv 18:00 Risk Assessment: Do you want to hurt yourself or someone else? Patient reports no kr2 desire to harm self or others. Initial Sepsis Screen: Does the patient meet any 2 criteria? No. Patient's initial sepsis screen is negative. Does the patient have a suspected source of infection? Yes: Skin breakdown/wound. Triage Assessment: 18:00 General: Appears in no apparent distress. comfortable, well groomed, well developed, kr2 well nourished, Behavior is calm, cooperative, appropriate for age. Historical: - Allergies: 18:05 NKDA; sv - Home Meds: 18:05 Albuterol Inhl [Active]; elavil [Active]; Ecotrin Oral [Active]; Cymbalta oral oral sv [Active]; Nexium Oral [Active]; Estrace Oral [Active]; gabapentin oral oral [Active]; [place] 7.5-325 mg Oral tab 1 tab every 4 hours [Active]; Tresiba FlexTouch U-100 subcutaneous subcutaneous [Active]; victoza 3-tita SQ 1.8 mg daily [Active]; Hyzaar Oral [Active]; Magnesium Oxide Oral [Active]; Mobic oral oral [Active]; Robaxin Oral [Active]; Singulair Oral [Active]; Protonix Oral [Active]; Zocor Oral [Active]; Zanaflex Oral [Active]; - PMHx: 18:05 Asthma; breast cancer; chronic pain, sees pain doctor; COPD; Diabetes - IDDM; Gout; sv Hypertension; Hypothyroidism; - Immunization history:: Adult Immunizations up to date. - Social history:: Smoking status: Patient/guardian denies using tobacco. - Family history:: not pertinent. - Ebola Screening: : No symptoms or risks identified at this time. Screenin:00 Abuse screen: Denies threats or abuse. Denies injuries from another. Nutritional kr2 screening: No deficits noted. Tuberculosis screening: No symptoms or risk factors identified. Fall Risk None identified. Assessment: 17:50 General: Appears in no apparent distress. uncomfortable, well groomed, well developed, kr2 well nourished, Behavior is calm, cooperative, appropriate for age. Pain: Complains of pain in abdomen and suprapubic area Pain does not radiate. Pain currently is 6 out of 10 on a pain scale. Quality of pain is described as aching, tender, Is continuous, Alleviated by rest, Aggravated by increased activity. Neuro: Level of Consciousness is awake, alert, obeys commands, Oriented to person, place, time, situation, Appropriate for age. Cardiovascular: Capillary refill < 3 seconds in bilateral fingers Patient's skin is warm and dry. Respiratory: Airway is patent Respiratory effort is even, unlabored, Respiratory pattern is regular, symmetrical. GI: Abdomen is non-distended, obese, Bowel sounds present X 4 quads. Derm: Skin is healthy with good turgor, Skin is pink, warm \T\ dry. Wound noted suprapubic area Wound is surgical incision with small open area, approximately 1cm, no redness, no drainage. remainder of incision is intact and healed. 18:45 Reassessment: Patient appears in no apparent distress at this time. Patient and/or kr2 family updated on plan of care and expected duration. Pain level reassessed. Wet to dry dressing applied as ordered. Vital Signs: 18:06 BP 158 / 64; Pulse 91; Resp 18; Temp 97.7; Weight 83.46 kg; Height 5 ft. 4 in. (162.56 sv cm); 18:06 Body Mass Index 31.58 (83.46 kg, 162.56 cm) ED Course: 17:41 Patient arrived in ED. mr 17:42 Sanchez, Naseem, MD is Private Physician. mr 17:47 Arm band placed on Patient placed in an exam room, on a stretcher. sv 18:00 Patient has correct armband on for positive identification. Bed in low position. Call kr2 light in reach. Side rails up X2. Adult w/ patient. Pulse ox on. NIBP on. Door closed. Warm blanket given. Head of bed elevated. 18:00 No provider procedures requiring assistance completed. Patient did not have IV access kr2 during this emergency room visit. 18:01 Triage completed. sv 18:09 Efren Puente MD is Attending Physician. edilson 18:17 Sheila Ackerman, RN is Primary Nurse. tabby 18:53 Primary Nurse role handed off by Sheila Ackerman RN kr2 18:53 Alena Barrow, ALOK is Primary Nurse. kr2 Administered Medications: 18:53 Drug: Bactrim (160 mg-800 mg (DS) 1 tablet Route: PO; kr2 18:53 Follow up: Response: Medication administered at discharge. kr2 18:53 Drug: [place] 10 mg-325 mg 1 tabs Route: PO; kr2 18:53 Follow up: Response: Medication administered at discharge. kr2 Outcome: 18:35 Discharge ordered by . [facility] 18:53 Patient left the ED. kr2 23:03 Discharged to home ambulatory, with friend. kr2 23:03 Condition: good 23:03 Discharge instructions given to patient, Instructed on discharge instructions, follow up and referral plans. medication usage, Demonstrated understanding of instructions, follow-up care, medications, Prescriptions given X 2. Signatures: Corina Olmos RN RN Sheila Ackerman RN RN aj Anderson, Corey, MD MD cha Rivera, Mary mr Alena Barrow RN RN kr2
--- NOTE | 2018-08-10 18:36 | EDPHYS ---
Physician Documentation [facility] Name: Charlotte Ruvalcaba Age: 53 yrs Sex: Female : 1965 Arrival Date: 08/10/2018 Time: 17:41 Bed 28 Private MD: Naseem Sanchez E ED Physician Efren Puente HPI: 08/10 18:26 This 53 yrs old Black Female presents to ER via Wheelchair with complaints of Surgical edilson sight Bleeding. 18:26 BLEEDING AT SURGICAL SITE, LOWER ABD. Onset: The symptoms/episode began/occurred just edilson prior to arrival. Severity of symptoms: At their worst the symptoms were mild in the emergency department the symptoms have improved moderately. The patient has not experienced similar symptoms in the past. Historical: - Allergies: 18:05 NKDA; sv - Home Meds: 18:05 Albuterol Inhl [Active]; elavil [Active]; Ecotrin Oral [Active]; Cymbalta oral oral sv [Active]; Nexium Oral [Active]; Estrace Oral [Active]; gabapentin oral oral [Active]; [place] 7.5-325 mg Oral tab 1 tab every 4 hours [Active]; Tresiba FlexTouch U-100 subcutaneous subcutaneous [Active]; victoza 3-tita SQ 1.8 mg daily [Active]; Hyzaar Oral [Active]; Magnesium Oxide Oral [Active]; Mobic oral oral [Active]; Robaxin Oral [Active]; Singulair Oral [Active]; Protonix Oral [Active]; Zocor Oral [Active]; Zanaflex Oral [Active]; - PMHx: 18:05 Asthma; breast cancer; chronic pain, sees pain doctor; COPD; Diabetes - IDDM; Gout; sv Hypertension; Hypothyroidism; - Immunization history:: Adult Immunizations up to date. - Social history:: Smoking status: Patient/guardian denies using tobacco. - Family history:: not pertinent. - Ebola Screening: : No symptoms or risks identified at this time. ROS: 18:26 Constitutional: Negative for fever, chills, and weight loss, Eyes: Negative for injury, edilson pain, redness, and discharge, ENT: Negative for injury, pain, and discharge, Neck: Negative for injury, pain, and swelling, Cardiovascular: Negative for chest pain, palpitations, and edema, Respiratory: Negative for shortness of breath, cough, wheezing, and pleuritic chest pain, Abdomen/GI: Negative for abdominal pain, nausea, vomiting, diarrhea, and constipation, Back: Negative for injury and pain, : Negative for injury, bleeding, discharge, and swelling, MS/Extremity: Negative for injury and deformity, Neuro: Negative for headache, weakness, numbness, tingling, and seizure, Psych: Negative for depression, anxiety, suicide ideation, homicidal ideation, and hallucinations, Allergy/Immunology: Negative for hives, rash, and allergies, Endocrine: Negative for neck swelling, polydipsia, polyuria, polyphagia, and marked weight changes, Hematologic/Lymphatic: Negative for swollen nodes, abnormal bleeding, and unusual bruising. 18:26 Skin: Positive for of the suprapubic area. Exam: 18:26 Constitutional: This is a well developed, well nourished patient who is awake, alert, edilson and in no acute distress. Head/Face: Normocephalic, atraumatic. Eyes: Pupils equal round and reactive to light, extra-ocular motions intact. Lids and lashes normal. Conjunctiva and sclera are non-icteric and not injected. Cornea within normal limits. Periorbital areas with no swelling, redness, or edema. ENT: Nares patent. No nasal discharge, no septal abnormalities noted. Tympanic membranes are normal and external auditory canals are clear. Oropharynx with no redness, swelling, or masses, exudates, or evidence of obstruction, uvula midline. Mucous membranes moist. Neck: Trachea midline, no thyromegaly or masses palpated, and no cervical lymphadenopathy. Supple, full range of motion without nuchal rigidity, or vertebral point tenderness. No Meningismus. Chest/axilla: Normal chest wall appearance and motion. Nontender with no deformity. No lesions are appreciated. Cardiovascular: Regular rate and rhythm with a normal S1 and S2. No gallops, murmurs, or rubs. Normal PMI, no JVD. No pulse deficits. Respiratory: Lungs have equal breath sounds bilaterally, clear to auscultation and percussion. No rales, rhonchi or wheezes noted. No increased work of breathing, no retractions or nasal flaring. Back: No spinal tenderness. No costovertebral tenderness. Full range of motion. Skin: Warm, dry with normal turgor. Normal color with no rashes, no lesions, and no evidence of cellulitis. MS/ Extremity: Pulses equal, no cyanosis. Neurovascular intact. Full, normal range of motion. Neuro: Awake and alert, GCS 15, oriented to person, place, time, and situation. Cranial nerves II-XII grossly intact. Motor strength 5/5 in all extremities. Sensory grossly intact. Cerebellar exam normal. Normal gait. Psych: Awake, alert, with orientation to person, place and time. Behavior, mood, and affect are within normal limits. 18:26 Abdomen/GI: Inspection: abdomen appears normal, Bowel sounds: normal, Palpation: soft, Liver: no appreciated palpable abnormalities, Hernia: not appreciated. Vital Signs: 18:06 BP 158 / 64; Pulse 91; Resp 18; Temp 97.7; Weight 83.46 kg; Height 5 ft. 4 in. (162.56 sv cm); 18:06 Body Mass Index 31.58 (83.46 kg, 162.56 cm) sv MDM: 18:09 Patient medically screened. [facility] 18:29 Data reviewed: vital signs, nurses notes. [facility] 08/10 18:37 Order name: Wound dressing; Complete Time: 18:38 [facility] Administered Medications: 18:53 Drug: Bactrim (160 mg-800 mg (DS) 1 tablet Route: PO; [facility] 18:53 Follow up: Response: Medication administered at discharge. [facility] 18:53 Drug: [place] 10 mg-325 mg 1 tabs Route: PO; kr2 18:53 Follow up: Response: Medication administered at discharge. 2 Disposition: 08/10/18 18:35 Discharged to Home. Impression: Disruption of external operation (surgical) wound, not elsewhere classified - bleeding controlled. - Condition is Stable. - Prescriptions for Probiotic Digestive Care - take 1 tablet by ORAL route as directed; 30 tablet. Bactrim DS 800- 160 mg Oral Tablet - take 1 tablet by ORAL route every 12 hours for 7 days; 14 tablet. - Medication Reconciliation Form, Thank You Letter, Antibiotic Education, Prescription Opioid Use form. - Follow up: Private Physician; When: 2 - 3 days; Reason: Recheck today's complaints, Continuance of care, Re-evaluation by your physician. - Problem is new. - Symptoms have improved. Signatures: Corina Olmos RN RN sv Efren Puente MD MD cha Reaves, Karey, RN RN kr2 Corrections: (The following items were deleted from the chart) 18:53 18:35 08/10/2018 18:35 Discharged to Home. Impression: Disruption of external operation kr2 (surgical) wound, not elsewhere classified - bleeding controlled. Condition is Stable. Forms are Medication Reconciliation Form, Thank You Letter, Antibiotic Education, Prescription Opioid Use. Follow up: Private Physician; When: 2 - 3 days; Reason: Recheck today's complaints, Continuance of care, Re-evaluation by your physician. Problem is new. Symptoms have improved. edilson
[2018-08-10] MEDS ORDERED: HYDROCODONE/APAP 10/325 TAB ONE (18:52)
[2018-08-10] MEDS ORDERED: SMZ./TMP. 800/160 MG TABLET ONE (18:53)
[2018-08-10 19:13] VITALS: BP 158/64; TEMP 97.7
== END 2018-08-10 18:53 | disposition home or self-care (01) ==
LOC: ER 17:37
DX: T81.31XA Disruption of external operation (surgical) wound, not elsewhere classified, initial encounter (principal); E11.9 Type 2 diabetes mellitus without complications; E03.9 Hypothyroidism, unspecified; I10 Essential (primary) hypertension; J44.9 Chronic obstructive pulmonary disease, unspecified; Z79.4 Long term (current) use of insulin; Z79.890 Hormone replacement therapy; Z79.1 Long term (current) use of non-steroidal anti-inflammatories (NSAID); Z79.899 Other long term (current) drug therapy
CPT/HCPCS: 99283

== ENCOUNTER 2018-08-25 11:55 | Emergency (ER) | payer OTHER ==
[2018-08-25] MEDS ORDERED: HYDROCODONE/APAP 10/325 TAB ONE (13:27)
--- NOTE | 2018-08-25 13:58 | RAD REPORT ---
EXAM DESCRIPTION: RAD - Foot Left 3 View - 08/25/2018 1:48 pm CLINICAL HISTORY: PAIN Toe infection COMPARISON: No comparisons FINDINGS: Soft tissue swelling is seen about the left great toe. No finding to indicate osteomyeliti s at this time. Evidence of prior fracture affecting the distal fifth metatarsal. Prominent calcaneal spurs are seen.
--- NOTE | 2018-08-25 14:44 | ER ---
Nurse's Notes [facility] Name: Charlotte Ruvalcaba Age: 53 yrs Sex: Female : 1965 Arrival Date: 08/25/2018 Time: 12:00 Bed 9 Private MD: Naseem Sanchez E Diagnosis: Right greate toe infection Presentation: 08/25 12:28 Presenting complaint: Patient states: " I accidentally cut my toenail too close and now ph I think I have an infection, my doctor said to come up here because I'm a diabetic." Injury note to L great, no drainage noted, denies fever. Transition of care: patient was not received from another setting of care. Onset of symptoms was August 25, 2018. Risk Assessment: Do you want to hurt yourself or someone else? Patient reports no desire to harm self or others. Initial Sepsis Screen: Does the patient meet any 2 criteria? No. Patient's initial sepsis screen is negative. Does the patient have a suspected source of infection? Yes: Skin breakdown/wound. Care prior to arrival: None. 12:28 Method Of Arrival: Ambulatory ph 12:28 Acuity: RASHAD 4 ph Historical: - Allergies: 12:31 NKDA; ph - PMHx: 12:31 Asthma; breast cancer; chronic pain, sees pain doctor; COPD; Diabetes - IDDM; Gout; ph Hypertension; Hypothyroidism; - Immunization history:: Adult Immunizations unknown. - Social history:: Smoking status: Patient/guardian denies using tobacco. - Ebola Screening: : No symptoms or risks identified at this time. Screenin:29 Abuse screen: Denies threats or abuse. Denies injuries from another. Nutritional ph screening: No deficits noted. Tuberculosis screening: No symptoms or risk factors identified. Fall Risk None identified. Assessment: 13:00 General: Appears in no apparent distress. comfortable, well groomed, Behavior is calm, ph cooperative, appropriate for age, Denies fever, feeling ill. Pain: Complains of pain in Right first toenail. Neuro: Level of Consciousness is awake, alert, obeys commands, Oriented to person, place, time, situation. Cardiovascular: Capillary refill < 3 seconds in bilateral fingers toes Patient's skin is warm and dry. Respiratory: Airway is patent Respiratory effort is even, unlabored. GI: No signs and/or symptoms were reported involving the gastrointestinal system. Derm: Skin is healthy with good turgor, Skin is pink, warm \\T\\ dry. Musculoskeletal: Circulation, motion, and sensation intact. Range of motion: intact in all extremities. Musculoskeletal: Swelling present in Right first toenail. Injury Description: ingrown toenail noted to R great toe. 14:29 Reassessment: Patient appears in no apparent distress at this time. Patient and/or ph family updated on plan of care and expected duration. Pain level reassessed. Patient is alert, oriented x 3, equal unlabored respirations, skin warm/dry/pink. Pt resting quietly, awaiting Xray results. 14:53 Reassessment: Patient appears in no apparent distress at this time. No changes from ss previously documented assessment. Patient is alert, oriented x 3, equal unlabored respirations, skin warm/dry/pink. Vital Signs: 12:30 BP 144 / 70; Pulse 87; Resp 18; Temp 97.9; Pulse Ox 97% on R/A; Weight 87.54 kg; Height ph 5 ft. 4 in. (162.56 cm); 12:30 Body Mass Index 33.13 (87.54 kg, 162.56 cm) ph ED Course: 12:00 Patient arrived in ED. sb2 12:00 Naseem Sanchez MD is Private Physician. sb2 12:30 Triage completed. ph 12:31 Arm band placed on. ph 12:51 Amando Pinto MD is Attending Physician. kdr 13:22 Rebecca Gleason RN is Primary Nurse. ph 13:47 Foot Left 3 View In Process Unspecified. EDMS 13:54 X-ray completed. Portable x-ray completed in exam room. Patient tolerated procedure jb2 well. 14:29 Patient has correct armband on for positive identification. Bed in low position. Call light in reach. 14:43 Naseem Sanchez MD is Referral Physician. kdr 14:53 No provider procedures requiring assistance completed. Patient did not have IV access ss during this emergency room visit. Administered Medications: 13:22 Drug: [place] 10 mg-325 mg 1 tabs Route: PO; ph 14:47 Follow up: Response: No adverse reaction; Pain is decreased ss Outcome: 14:44 Discharge ordered by . kdr 14:53 Discharged to home ambulatory. ss 14:53 Discharged to home with family. 14:53 Condition: good 14:53 Discharge instructions given to patient, friend, Instructed on discharge instructions, follow up and referral plans. medication usage, Demonstrated understanding of instructions, follow-up care, medications, Prescriptions given X 3. 14:53 Patient left the ED. Signatures: Dispatcher [employer] EDMS Amando Pinto MD MD [facility] Sunny Bergeron jb2 Miranda Ramos RN RN Rebecca Gleason RN RN Carla Barba sb2
--- NOTE | 2018-08-25 14:44 | EDPHYS ---
Physician Documentation [facility] Name: Charlotte Ruvalcaba Age: 53 yrs Sex: Female : 1965 Arrival Date: 08/25/2018 Time: 12:00 Bed 9 Private MD: Naseem Sanchez E ED Physician Amando Pinto HPI: 08/25 17:54 This 53 yrs old Black Female presents to ER via Ambulatory with complaints of Diabetic kdr Toe Infection. 17:54 The patient presents with an injury, pain, that is acute, tenderness, Cellulitis to kdr left great toe. The complaints affect the left foot. Context: The problem was sustained at home, resulted from Cutting great toenail too short, the patient can partially bear weight, the patient is able to ambulate. Onset: The symptoms/episode began/occurred gradually, 1 week(s) ago. Modifying factors: The symptoms are alleviated by elevation of extremity, sitting, the symptoms are aggravated by weight bearing, movement, wearing shoes. Associated signs and symptoms: Pertinent positives:. Severity of symptoms: At their worst the symptoms were mild, this morning, in the emergency department the symptoms are unchanged. The patient has not experienced similar symptoms in the past. The patient has not recently seen a physician. Historical: - Allergies: 12:31 NKDA; ph - PMHx: 12:31 Asthma; breast cancer; chronic pain, sees pain doctor; COPD; Diabetes - IDDM; Gout; ph Hypertension; Hypothyroidism; - Immunization history:: Adult Immunizations unknown. - Social history:: Smoking status: Patient/guardian denies using tobacco. - Ebola Screening: : No symptoms or risks identified at this time. ROS: 17:54 Constitutional: Negative for fever, chills, and weight loss, Eyes: Negative for injury, kdr pain, redness, and discharge, Neck: Negative for injury, pain, and swelling, Respiratory: Negative for shortness of breath, cough, wheezing, and pleuritic chest pain, Abdomen/GI: Negative for abdominal pain, nausea, vomiting, diarrhea, and constipation, Back: Negative for injury and pain, : Negative for injury, bleeding, discharge, and swelling, MS/Extremity: Negative for injury and deformity, Skin: Negative for injury, rash, and discoloration, Neuro: Negative for headache, weakness, numbness, tingling, and seizure activity. Psych: Negative for depression, anxiety, suicide ideation, homicidal ideation, and hallucinations, Allergy/Immunology: Negative for hives, rash, and allergies, Endocrine: Negative for neck swelling, polydipsia, polyuria, polyphagia, and marked weight changes, Hematologic/Lymphatic: Negative for swollen nodes, abnormal bleeding, and unusual bruising. Exam: 17:54 Constitutional: This is a well developed, well nourished patient who is awake, alert, kdr and in no acute distress. 17:54 Musculoskeletal/extremity: Extremities: grossly normal except: noted in the left first toe, Left first toenail and left leg: decreased ROM, erythema, pain, swelling, tenderness. Vital Signs: 12:30 BP 144 / 70; Pulse 87; Resp 18; Temp 97.9; Pulse Ox 97% on R/A; Weight 87.54 kg; Height ph 5 ft. 4 in. (162.56 cm); 12:30 Body Mass Index 33.13 (87.54 kg, 162.56 cm) ph MDM: 14:44 Patient medically screened. kdr 17:54 Data reviewed: vital signs, nurses notes, lab test result(s), radiologic studies. kdr Counseling: I had a detailed discussion with the patient and/or guardian regarding: the historical points, exam findings, and any diagnostic results supporting the discharge/admit diagnosis, lab results, radiology results, the need for outpatient follow up. 08/25 13:47 Order name: Foot Left 3 View; Complete Time: 14:42 EDMS Administered Medications: 13:22 Drug: Palmetto 10 mg-325 mg 1 tabs Route: PO; ph 14:47 Follow up: Response: No adverse reaction; Pain is decreased ss Disposition: 08/25/18 14:44 Discharged to Home. Impression: Right greate toe infection. - Condition is Stable. - Discharge Instructions: Ingrown Toenail, Cellulitis, Adult, [id number]. - Prescriptions for Clindamycin HCl 300 mg Oral Capsule - take 1 capsule by ORAL route every 6 hours for 10 days; 40 capsule. Tylenol- Codeine #3 300-30 mg Oral Tablet - take 2 tablets by ORAL route every 4-6 hours As needed; 15 tablet. Bactrim DS 800- 160 mg Oral Tablet - take 1 tablet by ORAL route every 12 hours for 10 days; 20 tablet. - Medication Reconciliation Form, Thank You Letter, Antibiotic Education, Prescription Opioid Use form. - Follow up: Naseem Sanchez MD; When: 2 - 3 days; Reason: If symptoms return, Further diagnostic work-up, Recheck today's complaints, Continuance of care, Re-evaluation by your physician. - Problem is an ongoing problem. - Symptoms have improved. Signatures: Dispatcher [employer] [facility] Amando Pinto MD MD [facility] Miranda Ramos RN RN ss Rebecca Gleason RN RN ph Corrections: (The following items were deleted from the chart) 13:47 13:07 Foot Right 3 View+RAD.RAD.BRZ ordered. [facility] 14:53 14:44 08/25/2018 14:44 Discharged to Home. Impression: Right greate toe infection. ss Condition is Stable. Forms are Medication Reconciliation Form, Thank You Letter, Antibiotic Education, Prescription Opioid Use. Follow up: Naseem Sanchez; When: 2 - 3 days; Reason: If symptoms return, Further diagnostic work-up, Recheck today's complaints, Continuance of care, Re-evaluation by your physician. Problem is an ongoing problem. Symptoms have improved. kdr
[2018-08-25 15:04] VITALS: BP 144/70; TEMP 97.9; O2SAT 97
--- OUTSIDE RECORDS SUMMARY | 2018-08-27 15:41 | XMS REPORT | Clinical Summary ---
:1965 Author Organization [facility] Address [address] [place] [address] Care Team Providers Name Role Phone Radhames Ramos PA-C Primary Care Provider Allergies No Known Allergies Medications Medication Sig Dispensed Refills Start Date End Date Status HYDROcodone-acetamin Take 1 tablet by 0 Active ophen (NORCO) mouth 3 (three) 7.5-325 mg per times a day. tablet methocarbamol Take 750 mg by 0 Active (ROBAXIN) 500 MG mouth 3 (three) tablet times a day. Takes 500 mg 1.5 TAB. (750 mg) gabapentin (GRALISE) Take 600 mg by 0 Active 600 mg tablet mouth daily. extended release 24 hr montelukast Take 10 mg by 0 Active (SINGULAIR) 10 mg mouth daily. tablet esomeprazole Take 40 mg by 0 Active (NexIUM) 40 MG mouth daily. capsule pantoprazole Take 40 mg by 0 Active (PROTONIX) 40 MG EC mouth daily. tablet amitriptyline Take 25 mg by 0 Active (ELAVIL) 25 MG mouth every tablet morning. losartan-hydrochloro Take 1 tablet by 0 Active thiazide (HYZAAR) mouth every 100-25 mg per tablet morning. simvastatin (ZOCOR) Take 10 mg by 0 Active 10 MG tablet mouth nightly. estradiol (ESTRACE) Take 0.5 mg by 0 Active 0.5 MG tablet mouth daily. tiZANidine Take 2 mg by 0 Active (ZANAFLEX) 2 MG mouth 2 (two) tablet times a day as needed for muscle spasms. liraglutide Inject 1.8 mg 0 Active (VICTOZA) 0.6 mg/0.1 under the skin mL (18 mg/3 mL) pen daily. injector insulin degludec Inject 85 Units 0 Active (TRESIBA FLEXTOUCH under the skin U-100) 100 unit/mL every morning. (3 mL) insulin pen aspirin (ECOTRIN) 81 Take 81 mg by 0 Active MG enteric coated mouth daily. tablet MAGNESIUM ORAL Take 1 tablet by 0 Active mouth daily. Pure Magnesium albuterol (PROAIR Inhale 1 puff 3 0 Active HFA,PROVENTIL (three) times a HFA,VENTOLIN HFA) 90 day as needed mcg/actuation for wheezing or inhaler shortness of breath. meloxicam (MOBIC) 15 Take 15 mg by 0 Active mg tablet mouth daily. DULoxetine Take 20 mg by 0 Active (CYMBALTA) 20 MG mouth daily. capsule methocarbamol Take 1 tablet 40 tablet 3 07/16/2018 Active (ROBAXIN-750) 750 MG (750 mg total) tablet by mouth every 8 (eight) hours as needed for muscle spasms for up to 40 doses. docusate sodium Take 1 capsule 30 capsule 0 07/16/2018 08/15/2018 (COLACE) 100 MG (100 mg total) capsule [...] Preop testing Appointment Testing (Primary Dx) after 08/24/2017 Family History Medical History Relation Name Comments [...] Taken Blood Pressure 160/62 07/21/2018 11:14 AM SALES SERVICE EXECUTIVE Pulse 82 07/21/2018 11:56 AM SALES SERVICE EXECUTIVE Temperature 36.9 C (98.4 F) 07/21/2018 11:14 AM SALES SERVICE EXECUTIVE Respiratory Rate 18 07/21/2018 11:56 AM SALES SERVICE EXECUTIVE Oxygen Saturation 97% 07/21/2018 11:56 AM SALES SERVICE EXECUTIVE Inhaled Oxygen Concentration - - Weight 87.5 kg (192 lb 16 oz) 07/15/2018 8:48 AM SALES SERVICE EXECUTIVE Height 162.6 cm (5' 4") 07/15/2018 8:48 AM SALES SERVICE EXECUTIVE Body Mass Index 33.13 07/15/2018 8:48 AM SALES SERVICE EXECUTIVE Plan of Treatment Health Maintenance Due Date Last Done Comments CERVICAL CANCER SCREENING 1984 BREAST CANCER SCREENING 2013 COLON CANCER SCREENING 2013 SHINGLES VACCINES (1 of 2) 2013 INFLUENZA VACCINE 04/07/2018 08/27/2009 Implants Implanted Type Area Form Tamper Operator Device Shelf Model / Serial Identifier Expiration / Lot Date Chip Canc Allograft Leader Crshd 15cc 0.1-4mm - [id number] Human Tissue Anterio MUSCULOSKELETAL 05/03/2021 [id number] / Implanted: Qty: 1 on 07/16/2018 by Parish Rivers MD Implants r: TRANSPLANT / Spine, FOUNDATION [id number] Multi-L evel Kit Bone Grft Lmbr Tprd 8ml Xxl Infuse - [id number] Human Tissue Anterio [employer] SPINAL [id number] / Implanted: Qty: 1 on 07/16/2018 by Parish Rivers MD Implants r: AND BIOLOGICS / Spine, Multi-L evel Interbody [id number] Medium - 18 Deg 16mm - [id number] - [id number] IMPLANT Anterio [employer] 11/20/2024 [id number] / Implanted: Qty: 1 on 07/16/2018 by Parish Rivers MD DEVICES r: SOFAMOR DANEK 74DP / Spine, 74DP Multi-L evel Sovereign Fa Screw [id number] 5.5 X 25mm - [id number] [id number] IMPLANT Anterio [employer] [id number] / Implanted: Qty: 1 on 07/16/2018 by Parish Rivers MD DEVICES r: SOFAMOR DANEK / Spine, Multi-L evel Set Screw [id number] 5.5 Ti Ns Brk Off - [id number] [id number] IMPLANT N/A: [employer] [id number] / Implanted: 07/16/2018 (Quantity not on file) DEVICES N/A SOFAMOR DANEK / Sergio [id number] 5.5 Ccm Ns Curv 35mm - [id number] [id number] IMPLANT Anterio [employer] [id number] / Implanted: 07/16/2018 (Quantity not on file) DEVICES r: SOFAMOR DANEK / Spine, VENDOR LOT NA Multi-L evel Screw [id number] 5.5 Mas 6.5x55 Cc - [id number] [id number] IMPLANT N/A: [employer] [id number] / Implanted: 07/16/2018 (Quantity not on file) DEVICES N/A SOFAMOR DANEK / Screw [id number] 5.5 Mas 6.5x50 Cc - Svendor Lot Na - [id number] [id number] IMPLANT Posteri [employer] [id number] / Implanted: Qty: 1 on 07/16/2018 by Parish Rivers MD DEVICES or: SOFAMOR DANEK VENDOR LOT NA / Spine, VENDOR LOT NA Sacral Screw [id number] 5.5 Mas 6.5x50 Cc - [id number] [id number] IMPLANT Posteri [employer] [id number] / Implanted: Qty: 1 on 07/16/2018 by Parish Rivers MD DEVICES or: SOFAMOR DANEK / Spine, VENDOR LOT NA Sacral Washer Bone Grft Ti 17mm - [id number] Orthopedic Anterio [employer] SPINAL [id number] / Implanted: Qty: 1 on 07/16/2018 by Parish Rivers MD Trauma r: AND BIOLOGICS / Implants Spine, VENDOR LOT NA Multi-L evel Procedures Procedure Name Priority Date/Time Associated Comments Diagnosis XR LUMBAR SPINE AP Routine 08/03/2018 1:37 PM DDD (degenerative Results for this LATERAL FLEXION AND SALES SERVICE EXECUTIVE disc disease), procedure are in EXTENSION lumbar the results section. POC GLUCOSE Routine 07/21/2018 11:14 AM Results for this SALES SERVICE EXECUTIVE procedure are in the results section. POC GLUCOSE Routine 07/21/2018 6:40 AM Results for this SALES SERVICE EXECUTIVE procedure are in the results section. POC GLUCOSE Routine 07/21/2018 5:26 AM Results for this SALES SERVICE EXECUTIVE procedure are in the results section. POC GLUCOSE Routine 07/20/2018 4:55 PM Results for this SALES SERVICE EXECUTIVE procedure are in the results section. POC GLUCOSE Routine 07/20/2018 11:06 AM Results for this SALES SERVICE EXECUTIVE procedure are in the results section. POC GLUCOSE Routine 07/20/2018 6:14 AM Results for this SALES SERVICE EXECUTIVE procedure are in the results section. POC GLUCOSE Routine 07/19/2018 9:27 PM Results for this SALES SERVICE EXECUTIVE procedure are in the results section. XR ABDOMEN 1 VW Routine 07/19/2018 6:20 PM Results for this SALES SERVICE EXECUTIVE procedure are in the results section. POC GLUCOSE Routine 07/19/2018 4:53 PM Results for this SALES SERVICE EXECUTIVE procedure are in the results section. POC GLUCOSE Routine 07/19/2018 11:50 AM Results for this SALES SERVICE EXECUTIVE procedure are in the results section. ESTIMATED GFR Routine 07/19/2018 6:40 AM Results for this SALES SERVICE EXECUTIVE procedure are in the results section. BASIC METABOLIC Routine 07/19/2018 6:40 AM Results for this PANEL SALES SERVICE EXECUTIVE procedure are in the results section. HC COMPLETE BLD Routine 07/19/2018 6:40 AM Results for this COUNT W/AUTO DIFF SALES SERVICE EXECUTIVE procedure are in the results section. POC GLUCOSE Routine 07/19/2018 5:17 AM Results for this SALES SERVICE EXECUTIVE procedure are in the results section. POC GLUCOSE Routine 07/18/2018 8:30 PM Results for this SALES SERVICE EXECUTIVE procedure are in the results section. POC GLUCOSE Routine 07/18/2018 3:31 PM Results for this SALES SERVICE EXECUTIVE procedure are in the results section. POC GLUCOSE Routine 07/18/2018 11:21 AM Results for this SALES SERVICE EXECUTIVE procedure are in the results section. ESTIMATED GFR Routine 07/18/2018 6:15 AM Results for this SALES SERVICE EXECUTIVE procedure are in the results section. MAGNESIUM LEVEL Routine 07/18/2018 6:15 AM Results for this SALES SERVICE EXECUTIVE procedure are in the results section. BASIC METABOLIC Routine 07/18/2018 6:15 AM Results for this PANEL SALES SERVICE EXECUTIVE procedure are in the results section. HC COMPLETE BLD Routine 07/18/2018 6:15 AM Results for this COUNT W/AUTO DIFF SALES SERVICE EXECUTIVE procedure are in the results section. POC GLUCOSE Routine 07/18/2018 5:38 AM Results for this SALES SERVICE EXECUTIVE procedure are in the results section. POC GLUCOSE Routine 07/17/2018 8:21 PM Results for this SALES SERVICE EXECUTIVE procedure are in the results section. POC GLUCOSE Routine 07/17/2018 4:48 PM Results for this SALES SERVICE EXECUTIVE procedure are in the results section. POC GLUCOSE Routine 07/17/2018 11:13 AM Results for this SALES SERVICE EXECUTIVE procedure are in the results section. POC GLUCOSE Routine 07/17/2018 7:26 AM Results for this SALES SERVICE EXECUTIVE procedure are in the results section. ESTIMATED GFR Routine 07/17/2018 6:15 AM Results for this SALES SERVICE EXECUTIVE procedure are in the results section. PHOSPHORUS LEVEL Routine 07/17/2018 6:15 AM Results for this SALES SERVICE EXECUTIVE procedure are in the results section. MAGNESIUM LEVEL Routine 07/17/2018 6:15 AM Results for this SALES SERVICE EXECUTIVE procedure are in the results section. BASIC METABOLIC Routine 07/17/2018 6:15 AM Results for this PANEL SALES SERVICE EXECUTIVE procedure are in the results section. HC COMPLETE BLD Routine 07/17/2018 6:15 AM Results for this COUNT W/AUTO DIFF SALES SERVICE EXECUTIVE procedure are in the results section. POC GLUCOSE Routine 07/16/2018 8:12 PM Results for this SALES SERVICE EXECUTIVE procedure are in the results section. ESTIMATED GFR Routine 07/16/2018 5:32 PM Results for this SALES SERVICE EXECUTIVE procedure are in the results section. BASIC METABOLIC Routine 07/16/2018 5:32 PM Results for this PANEL SALES SERVICE EXECUTIVE procedure are in the results section. POC GLUCOSE Routine 07/16/2018 5:03 PM Results for this SALES SERVICE EXECUTIVE procedure are in the results section. POC GLUCOSE Routine 07/16/2018 4:00 PM Results for this SALES SERVICE EXECUTIVE procedure are in the results section. POC GLUCOSE Routine 07/16/2018 3:25 PM Results for this SALES SERVICE EXECUTIVE procedure are in the results section. POC GLUCOSE Routine 07/16/2018 2:58 PM Results for this SALES SERVICE EXECUTIVE procedure are in the results section. [place] > 1 HOUR Routine 07/16/2018 2:30 PM Results for this SALES SERVICE EXECUTIVE procedure are in the results section. POC GLUCOSE Routine 07/16/2018 2:23 PM Results for this SALES SERVICE EXECUTIVE procedure are in the results section. ARTERIAL LINE Routine 07/16/2018 9:16 AM SALES SERVICE EXECUTIVE Procedure Note - Selvin Novoa MD - 07/16/2018 9:16 AM SALES SERVICE EXECUTIVE R Radial Arterial Line Performed by: SELVIN [...] complications Notes: No hematoma noted, waveform present [place] AN ELECTIVE ENDOTRACHEAL AIRWAY Routine 07/16/2018 8:46 AM SALES SERVICE EXECUTIVE Procedure Note - Latasha Sigala CRNA - 07/16/2018 8:46 AM SALES SERVICE EXECUTIVE Airway Date/Time: 07/16/2018 8:24 AM Performed by: LATASHA SIGALA Authorized by: SELVIN NOVOA Location: [place] Urgency: Elective Difficult Airway: No Anesthesiologist: SELVIN NOVOA Resident/CONVENTION SERVICES MANAGER/AA: LATASHA SIGALA Preoxygenated with 100% O2: Yes [...] Results for this AND MICROSCOPY, WITH AM SALES SERVICE EXECUTIVE intervertebral disc of procedure are in REFLEX TO CULTURE lumbosacral region the results section. URINE CULTURE Timed 07/16/2018 8:27 Results for this AM SALES SERVICE EXECUTIVE procedure are in the results section. GRAM STAIN Timed 07/16/2018 8:27 Results for this AM SALES SERVICE EXECUTIVE procedure are in the results section. POC GLUCOSE Routine 07/16/2018 7:01 Results for this AM SALES SERVICE EXECUTIVE procedure are in the results section. TYPE AND SCREEN Routine 07/15/2018 9:45 Preop testing Results for this AM SALES SERVICE EXECUTIVE procedure are in the results section. after 08/24/2017 Results XR Lumbar Spine Ap Lateral Flexion And Extension (08/03/2018 1:37 PM SALES SERVICE EXECUTIVE) Narrative Performed At EXAMINATION:XR LUMBAR SPINE AP LATERALFLEXION AND EXTENSION HM [facility] CLINICAL HISTORY:M51.36 Other intervertebral disc degenerationlumbar [...] no evidence of instability or abnormal motion. [id number] Procedure Note Hm Interface, Radiology Results Incoming - 08/04/2018 9:48 AM SALES SERVICE EXECUTIVE EXAMINATION: XR LUMBAR SPINE AP LATERAL FLEXION [...] no evidence of instability or abnormal motion. [id number] Performing Organization Address City/State/Zipcode Phone Number [facility] [address] [place] [address] POC glucose (07/21/2018 11:14 AM SALES SERVICE EXECUTIVE)Only the most recent of25 resultswithin the time period is included. POC glucose 133 (H) 65 - 99 mg/dL [facility] Comment: RN Notified Meter ID: [id number] Cashier General: Osman Perez Performing Organization Address [facility] Cent[facility]ode Phone Number [facility] DEPARTMENT OF PATHOLOGY [address] [place] [address] [facility] [id number] [place] [address] XR Abdomen 1 Vw (07/19/2018 6:20 PM SALES SERVICE EXECUTIVE) Narrative Performed At EXAMINATION:XR ABDOMEN 1 VW [facility] CLINICAL HISTORY: 53 years 1965 rule out ileus COMPARISON:None. IMPRESSION: 1.Bowel gas pattern is nonspecific, nonobstructive. No dilated air-filled loops of bowel. 2.No plain film evidence of free air. Visualized lung bases clear. 3.Surgical clips over the right upper quadrant. Postsurgical changes in the spine with presumed overlying drain. [facility]-[id number] Procedure Note Hm Interface, Radiology Results Incoming - 07/19/2018 7:14 PM SALES SERVICE EXECUTIVE EXAMINATION: XR ABDOMEN 1 VW CLINICAL HISTORY: 53 years 1965 rule out ileus COMPARISON: None. IMPRESSION: 1. Bowel gas pattern is nonspecific, nonobstructive. No dilated air-filled loops of bowel. 2. No plain film evidence of free air. Visualized lung bases clear. 3. Surgical clips over the right upper quadrant. Postsurgical changes in the spine with presumed overlying drain. [facility]-[id number] Performing Organization Address [facility] Centercoct Phone Number [facility] [address] [place] [address] Estimated GFR (07/19/2018 6:40 AM SALES SERVICE EXECUTIVE)Only the most recent of4 resultswithin the time period is included. Estimated GFR >=90 mL/min/1.73 m2 [facility] Comment: [facility] CatergoryUnitsInterpretation G1 >=90 Normal or high G2 60-89Mildly decreased [id number] to moderately decreased K1d09-75Zxphqtooej to severely decreased G4 15-29Severely decreased G5 <15Kidney failure The eGFR was calculated using the Chronic Kidney Disease Epidemiology Collaboration (CKD-EPI) equation. Interpretation is based on recommendations of the National Kidney Foundation-Kidney Disease Outcomes Quality Initiative (NKF-KDOQI) published in 2014. Specimen Plasma specimen Performing Organization Address [facility]/Zipcode Phone Number [facility] DEPARTMENT OF PATHOLOGY [address] [place] [address] AND [facility] [id number] [place] [address] CBC with platelet and differential (07/19/2018 6:40 AM SALES SERVICE EXECUTIVE)Only the most recent of3 resultswithin the time period is included. WBC 10.1 4.5 - 11.0 k/uL [facility] RBC 3.27 (L) 4.20 - 5.50 m/uL [facility] HGB 10.1 (L) 12.0 - 16.0 g/dL [facility] HCT 30.3 (L) 37.0 - 47.0 % [facility] MCV 92.7 82.0 - 100.0 fL [facility] MCH 30.9 27.0 - 34.0 pg [facility] MCHC 33.3 31.0 - 37.0 g/dL [facility] RDW - SD 41.5 37.0 - 55.0 fL [facility] MPV 10.3 6.9 - 11.0 fL [facility] Platelet count 291 150 - 400 K/uL [facility] Nucleated RBC 0.00 /100 WBC [facility] Neutrophils 63.8 39.0 - 69.0 % [facility] Lymphocytes 24.1 (L) 25.0 - 45.0 % [facility] Monocytes 9.5 0.0 - 10.0 % [facility] Eosinophils 1.7 0.0 - 5.0 % [facility] Basophils 0.6 0.0 - 1.0 % [facility] Immature granulocytes 0.3 0.0 - 1.0 % [facility] Specimen Blood Performing Organization Address City/State/Zipcode Phone Number [facility] DEPARTMENT OF PATHOLOGY [address] [place] [address] AND [facility] [address] Basic metabolic panel (07/19/2018 6:40 AM SALES SERVICE EXECUTIVE)Only the most recent of4 resultswithin the time period is included. Sodium 140 135 - 148 mEq/L [facility] Potassium 3.8 3.5 - 5.0 mEq/L [facility] Chloride 101 98 - 112 mEq/L [facility] CO2 27 24 - 31 mEq/L [facility] Anion gap 12@ANIO 7 - 15 mEq/L [facility] BUN 8 6 - 20 mg/dL [facility] Creatinine 0.41 (L) 0.50 - 0.90 mg/dL [facility] Glucose 197 (H) 65 - 99 mg/dL [facility] Calcium 8.6 8.3 - 10.2 mg/dL [facility] Specimen Plasma specimen Performing Organization Address City/[facility] Centercode Phone Number [facility] DEPARTMENT OF PATHOLOGY [address] [place] [address] Magnesium level (07/18/2018 6:15 AM SALES SERVICE EXECUTIVE)Only the most recent of2 resultswithin the time period is included. Magnesium 1.4 (L) 1.6 - 2.6 mg/dL [facility] Specimen Plasma specimen Performing Organization Address [facility] Centercode Phone Number [facility] DEPARTMENT OF PATHOLOGY [address] [place] [address] Phosphorus level (07/17/2018 6:15 AM SALES SERVICE EXECUTIVE) Phosphorus 2.6 2.4 - 4.5 mg/dL [facility] DEPARTMENT OF PATHOLOGY AND [facility] Specimen Plasma specimen Performing Organization Address City/[facility] Centercode Phone Number [facility] DEPARTMENT OF PATHOLOGY [address] [place] [address] AND [facility] [place] > I Hour (07/16/2018 2:30 PM SALES SERVICE EXECUTIVE) Narrative Performed At EXAMINATION:[place] 1 HOUR [facility] IMPRESSION: Fluoroscopy was provided. No radiologist present.Please see procedure report for discussion of procedure, findings and fluoroscopic time. FLUOROSCOPIC TIME:36.2 seconds NUMBER OF IMAGES: 4 [facility]-[id number] Procedure Note Interface, Radiology Results Incoming - 07/16/2018 3:07 PM SALES SERVICE EXECUTIVE EXAMINATION: [place] 1 HOUR IMPRESSION: Fluoroscopy was provided. No radiologist present. Please see procedure report for discussion of procedure, findings and fluoroscopic time. FLUOROSCOPIC TIME: 36.2 seconds NUMBER OF IMAGES: 4 [facility]-[id number] Performing Organization Address City/State/Zipcode Phone Number [facility] [address] [place] [address] Urinalysis screen and microscopy, with reflex to culture (07/16/2018 8:27 AM SALES SERVICE EXECUTIVE) Specimen site Catheterized [facility] DEPARTMENT OF PATHOLOGY AND GENOMIC MEDICINE Color, UA Yellow [facility] DEPARTMENT OF PATHOLOGY AND GENOMIC MEDICINE Appearance, UA Sl Cloudy [facility] DEPARTMENT OF PATHOLOGY AND GENOMIC MEDICINE Specific gravity, UA 1.019 1.001 - 1.030 [facility] DEPARTMENT OF PATHOLOGY AND GENOMIC MEDICINE pH, UA 6.0 5.0 - 9.0 [facility] DEPARTMENT OF PATHOLOGY AND GENOMIC MEDICINE Protein, UA Negative Negative [facility] DEPARTMENT OF PATHOLOGY AND GENOMIC MEDICINE Glucose, UA Negative Negative [facility] DEPARTMENT OF PATHOLOGY AND GENOMIC MEDICINE Ketones, UA Negative Negative [facility] DEPARTMENT OF PATHOLOGY AND GENOMIC MEDICINE Bilirubin, UA Negative Negative [facility] DEPARTMENT OF PATHOLOGY AND GENOMIC MEDICINE Blood, UA Negative Negative [facility] DEPARTMENT OF PATHOLOGY AND GENOMIC MEDICINE Nitrite, UA Negative Negative [facility] DEPARTMENT OF PATHOLOGY AND GENOMIC MEDICINE Urobilinogen, UA <2.0 <2.0 E.U./dL [facility] DEPARTMENT OF PATHOLOGY AND GENOMIC MEDICINE Leukocyte esterase, UA Negative Negative [facility] DEPARTMENT OF PATHOLOGY AND GENOMIC MEDICINE Epithelial cells, UA 1 /HPF [facility] DEPARTMENT OF PATHOLOGY AND GENOMIC MEDICINE Round epithelial cells, UA <1 0 - 5 /HPF [facility] DEPARTMENT OF PATHOLOGY AND GENOMIC MEDICINE WBC, UA 8 (H) 0 - 4 /HPF [facility] DEPARTMENT OF PATHOLOGY AND GENOMIC MEDICINE RBC, UA 1 0 - 5 /HPF [facility] DEPARTMENT OF PATHOLOGY AND GENOMIC MEDICINE Bacteria, UA None seen None seen [facility] DEPARTMENT OF PATHOLOGY AND GENOMIC MEDICINE Yeast, UA None seen [facility] DEPARTMENT OF PATHOLOGY AND GENOMIC MEDICINE Yeast with pseudohyphae, UA None seen [facility] DEPARTMENT OF PATHOLOGY AND GENOMIC MEDICINE Specimen Urine - Urine, catheter Performing Organization Address City/State/Zipcode Phone Number [facility] DEPARTMENT OF PATHOLOGY [address] [place] [address] AND [employer] MEDICINE Gram stain (07/16/2018 8:27 AM SALES SERVICE EXECUTIVE) Gram stain result Rare WBC's [facility] DEPARTMENT OF PATHOLOGY No organisms seen AND GENOMIC MEDICINE Comment: Specimen Information Specimen Source: Urine Specimen Site: Catheterized Specimen Urine - Catheterized Performing Organization Address City/[facility] Centercode Phone Number [facility] DEPARTMENT OF PATHOLOGY AND [address] [place] [id number] GENOMIC MEDICINE Urine culture (07/16/2018 8:27 AM SALES SERVICE EXECUTIVE) Urine culture isolate ~No growth after 10 [facility] DEPARTMENT OF hours PATHOLOGY AND GENOMIC Mixed linda <=10-3 MEDICINE col/cc Comment: Specimen Information Specimen Source: Urine Specimen Site: Catheterized Specimen Urine - Catheterized Performing Organization Address [facility] Centercode Phone Number [facility] DEPARTMENT OF PATHOLOGY AND [address] [place] [id number] GENOMIC MEDICINE Type and screen (07/15/2018 9:45 AM SALES SERVICE EXECUTIVE) ABO grouping A [facility] DEPARTMENT OF PATHOLOGY AND GENOMIC MEDICINE Rh type POS [facility] DEPARTMENT OF PATHOLOGY AND GENOMIC MEDICINE Antibody screen (gel) NEG [facility] DEPARTMENT OF PATHOLOGY AND GENOMIC MEDICINE Specimen Blood Performing Organization Address [facility] Centercode Phone Number [facility] DEPARTMENT OF PATHOLOGY [address] [place] [address] AND GENOMIC MEDICINE after 08/24/2017 Insurance Payer Benefit Plan / Group Subscriber ID Type Phone Address MEDICAID MEDICAID xxxxxxxxx Medicaid [employer] HMO MCR xxxxxxxx HMO ADV Advance Directives Patient has advance care planning documents on file. For more information, please contact:[place] [id number] [place] [id number]
== END 2018-08-25 14:53 | disposition home or self-care (01) ==
LOC: ER 11:55
DX: L03.032 Cellulitis of left toe (principal); I10 Essential (primary) hypertension; E11.9 Type 2 diabetes mellitus without complications
CPT/HCPCS: 99283

== ENCOUNTER 2019-02-02 18:52 | Emergency (ER) | payer OTHER ==
--- NOTE | 2019-02-02 19:41 | EDPHYS ---
Physician Documentation [facility] Name: Charlotte Ruvalcaba Age: 53 yrs Sex: Female : 1965 Arrival Date: 02/02/2019 Time: 18:57 Bed 28 Private MD: Tawana Ramirez ED Physician Spenser Ruvalcaba HPI: 02/02 19:24 This 53 yrs old Black Female presents to ER via Ambulatory with complaints of Urinary rn Problem, Back Pain. 19:24 The patient presents with pain that is chronic. The symptoms are located in the low rn back. Onset: The symptoms/episode began/occurred at an unknown time. Associated signs and symptoms:. Modifying factors: The patient symptoms are alleviated by nothing, the patient symptoms are aggravated by any movement. Severity of symptoms: At their worst the symptoms were mild, in the emergency department the symptoms are unchanged. The patient has experienced similar episodes in the past, chronically. The patient has not recently seen a physician. Reports has chronic back pain, had surgery in July, still requiring cortisone shots, reports no change neurologically, here today because of mild dysuria and change in urine color and odor, no fever, + generalized weakness, glucose today 120s. . 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 - Social history:: Smoking status: Patient/guardian denies using tobacco. - Ebola Screening: : No symptoms or risks identified at this time. - Family history:: not pertinent. - Hospitalizations: : No recent hospitalization is reported. ROS: 19:24 Constitutional: Negative for fever, chills, and weight loss, Eyes: Negative for injury, rn pain, redness, and discharge, Neck: Negative for injury, pain, and swelling, Cardiovascular: Negative for chest pain, palpitations, and edema, Respiratory: Negative for shortness of breath, cough, wheezing, and pleuritic chest pain, Abdomen/GI: Negative for abdominal pain, nausea, vomiting, diarrhea, and constipation, Back: Negative for injury and pain, MS/Extremity: Negative for injury and deformity, Skin: Negative for injury, rash, and discoloration, Neuro: Negative for headache,numbness, tingling, and seizure. Exam: 19:24 Constitutional: This is a well developed, well nourished patient who is awake, alert, rn and in no acute distress. Sitting upright, non-toxic appearance. Head/Face: Normocephalic, atraumatic. Eyes: Pupils equal round and reactive to light, extra-ocular motions intact. Lids and lashes normal. Conjunctiva and sclera are non-icteric and not injected. Cornea within normal limits. Periorbital areas with no swelling, redness, or edema. ENT: dry MM Abdomen/GI: soft, non-tender Back: No spinal tenderness. No costovertebral tenderness. Full range of motion. MS/ Extremity: Pulses equal, no cyanosis. Neurovascular intact. Full, normal range of motion. Equal circumference. Neuro: Awake and alert, GCS 15, oriented to person, place, time, and situation. Cranial nerves II-XII grossly intact. Motor strength 5/5 in all extremities. Sensory grossly intact. Cerebellar exam normal. Normal gait. Vital Signs: 19:01 BP 148 / 71; Pulse 90; Resp 16 S; Temp 98.4(TE); Pulse Ox 98% on R/A; Weight 87.09 kg aa5 (R); Height 5 ft. 4 in. (162.56 cm) (R); Pain 10/10; 20:03 BP 135 / 76; Pulse 89; Resp 18; Temp 98; Pulse Ox 99% ; rv 19:01 Body Mass Index 32.96 (87.09 kg, 162.56 cm) aa5 MDM: 19:08 Patient medically screened. rn 19:24 Differential diagnosis: arthritis, chronic back pain, UTI. Data reviewed: vital signs, rn nurses notes, lab test result(s), urinalysis, and as a result, I will discharge patient. Counseling: I had a detailed discussion with the patient and/or guardian regarding: the historical points, exam findings, and any diagnostic results supporting the discharge/admit diagnosis, lab results, the need for outpatient follow up, to return to the emergency department if symptoms worsen or persist or if there are any questions or concerns that arise at home. Special discussion: I discussed with the patient/guardian in detail that at this point there is no indication for admission to the hospital. It is understood, however, that if the symptoms persist or worsen the patient needs to return immediately for re-evaluation. 02/02 19:18 Order name: Urine Culture rn 02/02 19:12 Order name: Urine Dipstick-Ancillary (obtain specimen); Complete Time: 19:20 ls4 Administered Medications: 19:47 Drug: Macrobid 100 mg Route: PO; rv 20:00 Follow up: Response: Medication administered at discharge. rv Disposition: 02/02/19 19:40 Discharged to Home. Impression: Urinary tract infection, site not specified. - Condition is Stable. - Discharge Instructions: Dehydration, Adult, Urinary Tract Infection, Adult. - Prescriptions for Macrobid 100 mg Oral Capsule - take 1 capsule by ORAL route every 12 hours for 10 days; 20 capsule. - Medication Reconciliation Form, Thank You Letter, Antibiotic Education, Prescription Opioid Use form. - Follow up: Tawana Ramirez MD; When: 2 - 3 days; Reason: Recheck today's complaints, Re-evaluation by your physician. - Problem is new. - Symptoms have improved. Signatures: Dispatcher [employer] EDMS Spenser Ruvalcaba MD MD rn Calderon, Audri RN RN aa5 Clayton Gauthier RN RN rv Archana Carter RN RN ls4 Corrections: (The following items were deleted from the chart) 20:03 19:40 02/02/2019 19:40 Discharged to Home. Impression: Urinary tract infection, site rv not specified. Condition is Stable. Forms are Medication Reconciliation Form, Thank You Letter, Antibiotic Education, Prescription Opioid Use. Follow up: Tawana Ramirez; When: 2 - 3 days; Reason: Recheck today's complaints, Re-evaluation by your physician. Problem is new. Symptoms have improved. rn
--- NOTE | 2019-02-02 19:41 | ER ---
Nurse's Notes [facility] Name: Charlotte Ruvalcaba Age: 53 yrs Sex: Female : 1965 Arrival Date: 02/02/2019 Time: 18:57 Bed 28 Private MD: Tawana Ramirez Diagnosis: Urinary tract infection, site not specified Presentation: 02/02 19:00 Presenting complaint: Patient states: right mid-low back pain and foul smelling urine aa5 that began 1 1/2 weeks ago. Transition of care: patient was not received from another setting of care. Onset of symptoms was January 2019. Risk Assessment: Do you want to hurt yourself or someone else? Patient reports no desire to harm self or others. Care prior to arrival: None. 19:00 Method Of Arrival: Ambulatory aa5 19:00 Acuity: RASHAD 3 aa5 20:02 Initial Sepsis Screen: Does the patient meet any 2 criteria? No. Patient's initial rv sepsis screen is negative. Does the patient have a suspected source of infection? No. Patient's initial sepsis screen is negative. 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 - Social history:: Smoking status: Patient/guardian denies using tobacco. - Ebola Screening: : No symptoms or risks identified at this time. - Family history:: not pertinent. - Hospitalizations: : No recent hospitalization is reported. Screenin:01 Abuse screen: Denies threats or abuse. Denies injuries from another. Nutritional rv screening: No deficits noted. Tuberculosis screening: No symptoms or risk factors identified. Fall Risk None identified. Assessment: 19:30 General: Appears in no apparent distress. comfortable, Behavior is calm, cooperative. rv 19:30 Pain: Complains of pain in back. Neuro: Level of Consciousness is awake, alert, obeys rv commands, Oriented to person, place, time, situation. Cardiovascular: Capillary refill < 3 seconds. Respiratory: Airway is patent. GI: No signs and/or symptoms were reported involving the gastrointestinal system. : No signs and/or symptoms were reported regarding the genitourinary system. EENT: No signs and/or symptoms were reported regarding the EENT system. Derm: Skin is intact. Musculoskeletal: No signs and/or symptoms reported regarding the musculoskeletal system. Vital Signs: 19:01 BP 148 / 71; Pulse 90; Resp 16 S; Temp 98.4(TE); Pulse Ox 98% on R/A; Weight 87.09 kg aa5 (R); Height 5 ft. 4 in. (162.56 cm) (R); Pain 10/10; 20:03 BP 135 / 76; Pulse 89; Resp 18; Temp 98; Pulse Ox 99% ; rv 19:01 Body Mass Index 32.96 (87.09 kg, 162.56 cm) aa5 ED Course: 18:57 Patient arrived in ED. mr 18:57 Tawana Ramirez MD is Private Physician. mr 19:00 Triage completed. aa5 19:00 Arm band placed on. aa5 19:08 Spenser Ruvalcaba MD is Attending Physician. rn 19:30 Patient has correct armband on for positive identification. Bed in low position. Call rv light in reach. Side rails up X 1. Pulse ox on. NIBP on. 19:40 Tawana Ramirez MD is Referral Physician. rn 19:59 Clayton Gauthier RN is Primary Nurse. rv 20:01 No provider procedures requiring assistance completed. Patient did not have IV access rv during this emergency room visit. Administered Medications: 19:47 Drug: Macrobid 100 mg Route: PO; rv 20:00 Follow up: Response: Medication administered at discharge. rv Outcome: 19:40 Discharge ordered by . rn 20:02 Discharged to home ambulatory. rv 20:02 Condition: good 20:02 Discharge instructions given to patient, Instructed on discharge instructions, follow up and referral plans. medication usage, Demonstrated understanding of instructions, follow-up care, medications, Prescriptions given X 1. 20:03 Patient left the ED. rv Addendum: 02/06/2019 07:51 Addendum: Culture Results: Positive urine culture. No further action required. Bacteria s s sensitive to prescribed antibiotic. Signatures: Sherine Rock mr Spenser Ruvalcaba, MD MD rn Ming, Little, RN RN aa5 Miranda Ramos, RN RN ss Clayton Gauthier RN RN rv
[2019-02-02] MEDS ORDERED: NITROFURAN MACRO 100 MG CAP PO ONE (19:58)
[2019-02-02 20:20] VITALS: BP 135/76; TEMP 98; O2SAT 99
--- OUTSIDE RECORDS SUMMARY | 2019-02-03 12:36 | XMS REPORT ---
:1965 [facility] Address [address] [place] [address] Care Team Providers Name Role Phone Unavailable Unavailable Unavailable Problems This patient has no known problems. Allergies, Adverse Reactions, Alerts This patient has no known allergies or adverse reactions. Medications This patient has no known medications.
--- OUTSIDE RECORDS SUMMARY | 2019-02-03 12:36 | XMS REPORT | Clinical Summary ---
:1965 Author Organization [facility] Address [address] [place] [address] Care Team Providers Name Role Phone Radhames [...] Encounters Date Type Specialty Care Team Description 12/28/2018 Hospital Encounter Parish Carrillo Low back pain, unspecified back pain laterality, unspecified chronicity, with sciatica presence unspecified 12/17/2018 Transcribe Orders Access Parish Rivers Low back pain, unspecified back pain laterality, unspecified chronicity, with sciatica presence unspecified (Primary Dx) 11/04/2018 Hospital Encounter Parish Carrillo DDD (degenerative MD disc disease), lumbar 11/04/2018 Transcribe Orders Parish Carrillo, DDD (degenerative MD disc disease), lumbar (Primary Dx) 08/03/2018 Hospital Encounter Parish Carrillo, DDD (degenerative MD disc disease), lumbar 07/22/2018 Patient Outreach Quality Caren Young, PharmD 07/16/2018 Anesthesia Event General Surgery Daria Paige MD 07/16/2018 Surgery General Surgery Parish Rivers LUMBAR FIVE - SACRAL MD ONE ANTERIOR LUMBAR INTERBODY FUSION 07/16/2018 - Hospital Encounter General Internal Parish Rivers, Degeneration of 07/21/2018 Medicine intervertebral disc Eliseo Carrera of lumbosacral region MD [place]lali 07/15/2018 Pre-Admit Testing Pre-Admission Parish Rivers, Preop testing Appointment Testing (Primary Dx) after 02/02/2018 Family History Medical History Relation Name Comments [...] Taken Blood Pressure 160/62 07/21/2018 11:[address] [facility] Pulse 82 07/21/2018 11:[address] [facility] Temperature 36.9 C (98.4 F) 07/21/2018 11:[address] [facility] Respiratory Rate 18 07/21/2018 11:[address] [facility] Oxygen Saturation 97% 07/21/2018 11:[address] [facility] Inhaled Oxygen Concentration - - Weight 87.5 kg (193 lb) 07/15/2018 8:[address] [facility] Height 162.6 cm (5' 4") 07/15/2018 8:[address] [facility] Body Mass Index 33.13 07/15/2018 8:[address] [facility] Plan of Treatment Health Maintenance Due Date Last Done Comments BREAST CANCER SCREENING 2013 COLON CANCER SCREENING 2013 SHINGLES VACCINES (#1) 2013 INFLUENZA VACCINE 04/07/2019 08/27/2009 Implants Implanted Type Area Schedule Maker Device Shelf Model / Serial Identifier Expiration / Lot Date Chip Canc Allograft [facility] 15cc 0.1-4mm - [id number] Human Tissue Anterio MUSCULOSKELETAL 05/03/2021 [id number] / Implanted: Qty: 1 on 07/16/2018 by Parish Rivers MD Implants r: TRANSPLANT / Spine, FOUNDATION [id number] Multi-L evel Kit Bone Grft Lmbr Tprd 8ml Xxl Infuse - [id number] Human Tissue Anterio [employer] SPINAL [id number] / Implanted: Qty: 1 on 07/16/2018 by Parish Rivers MD Implants r: AND [employer]OLOG[employer] / Spine, Multi-L evel Interbody [id number] Medium - 18 Deg 16mm - [id number] - [id number] [id number] IMPLANT Anterio [employer] 11/20/2024 [id number] / Implanted: Qty: 1 on 07/16/2018 by Parish Rivers MD DEVICES r: SOFAMOR DANEK 74DP / Spine, 74DP Multi-L evel Sovereign Fa Screw [id number] 5.5 X 25mm - [id number] [id number] IMPLANT Anterio [employer] [id number] / Implanted: Qty: 1 on 07/16/2018 by Parish Rivers MD DEVICES r: SOFAMOR DANEK / Spine, Multi-L evel Set Screw [id number] 5.5 Ti Ns Brk Off - [id number] IPM IMPLANT N/A: [employer] [id number] / Implanted: 07/16/2018 (Quantity not on file) DEVICES N/A SOFAMOR DANEK / Sergio [id number] 5.5 Ccm Ns Curv 35mm - [id number] IPM IMPLANT Anterio [employer] [id number] / Implanted: 07/16/2018 (Quantity not on file) DEVICES r: SOFAMOR DANEK / Spine, VENDOR LOT NA Multi-L evel Screw [id number] 5.5 Mas 6.5x55 Cc - [id number] IPM IMPLANT N/A: [employer] [id number] / Implanted: 07/16/2018 (Quantity not on file) DEVICES N/A SOFAMOR DANEK / Screw [id number] 5.5 Mas 6.5x50 Cc - Svendor Lot Na - [id number] IPM IMPLANT Posteri [employer] [id number] / Implanted: Qty: 1 on 07/16/2018 by Parish Rivers MD DEVICES or: SOFAMOR DANEK VENDOR LOT NA / Spine, VENDOR LOT NA Sacral Screw [id number] 5.5 Mas 6.5x50 Cc - [id number] IPM IMPLANT Posteri [employer] [id number] / Implanted: Qty: 1 on 07/16/2018 by Parish Rivers MD DEVICES or: SOFAMOR DANEK / Spine, VENDOR LOT NA Sacral Washer Bone Grft Ti 17mm - [id number] Orthopedic Anterio [employer] SPINAL [id number] / Implanted: Qty: 1 on 07/16/2018 by Parish Rivers MD Trauma r: AND BIOLOGICS / Implants Spine, VENDOR LOT NA Multi-L evel Procedures Procedure Name Priority Date/Time Associated Diagnosis Comments MRI LUMBAR SPINE W Routine 12/28/2018 12:24 Low back pain, Results for this WO CONTRAST PM CDT unspecified back procedure are in pain laterality, the results unspecified section. chronicity, with sciatica presence unspecified ESTIMATED GFR STAT 12/28/2018 11:39 Results for this AM CDT procedure are in the results section. CREATININE, WHOLE STAT 12/28/2018 11:39 Results for this BLOOD AM CDT procedure are in the results section. XR LUMBAR SPINE AP Routine 11/04/2018 8:17 DDD (degenerative Results for this LATERAL FLEXION AND AM [address] [facility] disc disease), procedure are in EXTENSION lumbar the results section. XR LUMBAR SPINE AP Routine 08/03/2018 1:37 DDD (degenerative Results for this LATERAL FLEXION AND PM [address] [facility] disc disease), procedure are in EXTENSION lumbar the results section. POC GLUCOSE Routine 07/21/2018 11:14 Results for this AM [address] [facility] procedure are in the results section. POC GLUCOSE Routine 07/21/2018 6:40 Results for this AM [address] [facility] procedure are in the results section. POC GLUCOSE Routine 07/21/2018 5:26 Results for this AM [address] [facility] procedure are in the results section. POC GLUCOSE Routine 07/20/2018 4:55 Results for this PM [address] [facility] procedure are in the results section. POC GLUCOSE Routine 07/20/2018 11:06 Results for this AM [address] [facility] procedure are in the results section. POC GLUCOSE Routine 07/20/2018 6:14 Results for this AM [address] [facility] procedure are in the results section. POC GLUCOSE Routine 07/19/2018 9:27 Results for this PM [address] [facility] procedure are in the results section. XR ABDOMEN 1 VW Routine 07/19/2018 6:20 Results for this PM [address] [facility] procedure are in the results section. POC GLUCOSE Routine 07/19/2018 4:53 Results for this PM [address] [facility] procedure are in the results section. POC GLUCOSE Routine 07/19/2018 11:50 Results for this AM [address] [facility] procedure are in the results section. ESTIMATED GFR Routine 07/19/2018 6:40 Results for this AM [address] [facility] procedure are in the results section. BASIC METABOLIC Routine 07/19/2018 6:40 Results for this PANEL AM [address] [facility] procedure are in the results section. HC COMPLETE BLD Routine 07/19/2018 6:40 Results for this COUNT W/AUTO DIFF AM [address] [facility] procedure are in the results section. POC GLUCOSE Routine 07/19/2018 5:17 Results for this AM [address] [facility] procedure are in the results section. POC GLUCOSE Routine 07/18/2018 8:30 Results for this PM [address] [facility] procedure are in the results section. POC GLUCOSE Routine 07/18/2018 3:31 Results for this PM [address] [facility] procedure are in the results section. POC GLUCOSE Routine 07/18/2018 11:21 Results for this AM [address] [facility] procedure are in the results section. ESTIMATED GFR Routine 07/18/2018 6:15 Results for this AM [address] [facility] procedure are in the results section. MAGNESIUM LEVEL Routine 07/18/2018 6:15 Results for this AM [address] [facility] procedure are in the results section. BASIC METABOLIC Routine 07/18/2018 6:15 Results for this PANEL AM [address] [facility] procedure are in the results section. HC COMPLETE BLD Routine 07/18/2018 6:15 Results for this COUNT W/AUTO DIFF AM [address] [facility] procedure are in the results section. POC GLUCOSE Routine 07/18/2018 5:38 Results for this AM [address] [facility] procedure are in the results section. POC GLUCOSE Routine 07/17/2018 8:21 Results for this PM [address] [facility] procedure are in the results section. POC GLUCOSE Routine 07/17/2018 4:48 Results for this PM [address] [facility] procedure are in the results section. POC GLUCOSE Routine 07/17/2018 11:13 Results for this AM [address] [facility] procedure are in the results section. POC GLUCOSE Routine 07/17/2018 7:26 Results for this AM [address] [facility] procedure are in the results section. ESTIMATED GFR Routine 07/17/2018 6:15 Results for this AM [address] [facility] procedure are in the results section. PHOSPHORUS LEVEL Routine 07/17/2018 6:15 Results for this AM [address] [facility] procedure are in the results section. MAGNESIUM LEVEL Routine 07/17/2018 6:15 Results for this AM [address] [facility] procedure are in the results section. BASIC METABOLIC Routine 07/17/2018 6:15 Results for this PANEL AM [address] [facility] procedure are in the results section. HC COMPLETE BLD Routine 07/17/2018 6:15 Results for this COUNT W/AUTO DIFF AM [address] [facility] procedure are in the results section. POC GLUCOSE Routine 07/16/2018 8:12 Results for this PM [address] [facility] procedure are in the results section. ESTIMATED GFR Routine 07/16/2018 5:32 Results for this PM [address] [facility] procedure are in the results section. BASIC METABOLIC Routine 07/16/2018 5:32 Results for this PANEL PM [address] [facility] procedure are in the results section. POC GLUCOSE Routine 07/16/2018 5:03 Results for this PM [address] [facility] procedure are in the results section. POC GLUCOSE Routine 07/16/2018 4:00 Results for this PM [address] [facility] procedure are in the results section. POC GLUCOSE Routine 07/16/2018 3:25 Results for this PM [address] [facility] procedure are in the results section. POC GLUCOSE Routine 07/16/2018 2:58 Results for this PM [address] [facility] procedure are in the results section. OR FL > 1 HOUR Routine 07/16/2018 2:30 Results for this PM [address] [facility] procedure are in the results section. POC GLUCOSE Routine 07/16/2018 2:23 Results for this PM [address] [facility] procedure are in the results section. ARTERIAL LINE Routine 07/16/2018 9:[address] [facility] Procedure Note - Selvin Novoa MD - 07/16/2018 9:[address] [facility] R Radial Arterial Line Performed by: SELVIN [...] complications Notes: No hematoma noted, waveform present MS AN ELECTIVE ENDOTRACHEAL AIRWAY Routine 07/16/2018 8:[address] [facility] Procedure Note - Latasha Sigala CRNA - 07/16/2018 8:[address] [facility] Airway Date/Time: 07/16/2018 8:24 AM Performed by: LATASHA SIGALA Authorized by: SELVIN NOVOA Location: OR Urgency: Elective Difficult Airway: No Anesthesiologist: SELVIN NOVOA Resident/CLIENT SERVICE COORDINATOR/AA: LATASHA SIGALA Preoxygenated with 100% O2: Yes [...] Results for this AND MICROSCOPY, WITH AM [address] [facility] intervertebral disc of procedure are in REFLEX TO CULTURE lumbosacral region the results section. URINE CULTURE Timed 07/16/2018 8:27 Results for this AM [address] [facility] procedure are in the results section. GRAM STAIN Timed 07/16/2018 8:27 Results for this AM [address] [facility] procedure are in the results section. POC GLUCOSE Routine 07/16/2018 7:01 Results for this AM [address] [facility] procedure are in the results section. TYPE AND SCREEN Routine 07/15/2018 9:45 Preop testing Results for this AM [address] [facility] procedure are in the results section. after 02/02/2018 Results MRI Lumbar Spine W Wo Contrast (12/28/2018 12:24 PM CDT) Specimen Narrative Performed At EXAMINATION: MRI LUMBAR SPINE W WO CONTRAST HM RADIANT CLINICAL HISTORY: M54.5 Low back pain, m54.41 COMPARISON:Lumbar radiograph 11/04/2018 TECHNIQUE: Multiplanar multisequence nonenhanced and contrast enhanced MRI examination was performed of the Lumbar spine. FINDINGS: Posterior and anterior spinal fusion L5-S1. Susceptibility artifact related to hardware. Preservation of the normal cervical lordosis. Vertebral body and disc heights appear preserved. Mild multilevel a nterior endplate spurring. No suspicious osseous lesion or significant degenerative endplate edema. Conus medullaris terminates at L1-L2. T2 hyperintense collection likely reflecting a seroma within the midline superficial soft tissues of the operative bed extending from L4 to S1 measuring 1.9 x 1.6 x 7.4 cm. Axial images through the disc spaces demonstrate the following: L1-L2: No significant posterior disc disease, spinal canal or neural foraminal stenosis. L2-L3: No significant posterior disc disease, spinal canal or neural foraminal stenosis. L3-L4: Minimal posterior disc bulge, mild bilateral facet hypertrophy, and prominence of the posterior epidural fat contributing to mild spinal canal narrowing. Patent bilateral neural foramina. L4-L5: Mild posterior disc bulge, mild to moderate bilateral facet hypertrophy , and circumferential prominence of the epidural fat contributing to mild spinal canal stenosis in the AP and transverse dimensions. Mild left neural foraminal narrowing inferiorly. Patent right neural foramen. L5-S1: Status post decompressive laminectomy with wide patency of the spinal canal. Mild posterior disc bulge with possible superimposed shallow central disc protrusion measuring up to 2.5 mm in AP dimension. Patent bilateral foramina. Subcentimeter renal cyst within the medial aspect of the right kidney. Nonspecific mild prominence of the common bile duct. IMPRESSION: 1. Anterior and posterior spinal fusion L5-S1. Decompressive laminectomy at this level with small to moderate-sized fluid collection within the midline posterior subcutaneous soft tissues likely reflecting a seroma. 2. Overall mild degenerative changes with mild spinal canal stenosis at L3-L4 and L4-L5, as detailed above. [id number] Procedure Note Hm Interface, Radiology Results Incoming - 12/28/2018 1:45 PM CDT EXAMINATION: MRI LUMBAR SPINE W WO CONTRAST CLINICAL HISTORY: M54.5 Low back pain, m54.41 COMPARISON: Lumbar radiograph 11/04/2018 TECHNIQUE: Multiplanar multisequence nonenhanced and contrast enhanced MRI examination was performed of the Lumbar spine. FINDINGS: Posterior and anterior spinal fusion L5-S1. Susceptibility artifact related to hardware. Preservation of the normal cervical lordosis. Vertebral body and disc heights appear preserved. Mild multilevel anterior endplate spurring. No suspicious osseous lesion or significant degenerative endplate edema. Conus medullaris terminates at L1-L2. T2 hyperintense collection likely reflecting a seroma within the midline superficial soft tissues of the operative bed extending from L4 to S1 measuring 1.9 x 1.6 x 7.4 cm. Axial images through the disc spaces demonstrate the following: L1-L2: No significant posterior disc disease, spinal canal or neural foraminal stenosis. L2-L3: No significant posterior disc disease, spinal canal or neural foraminal stenosis. L3-L4: Minimal posterior disc bulge, mild bilateral facet hypertrophy, and prominence of the posterior epidural fat contributing to mild spinal canal narrowing. Patent bilateral neural foramina. L4-L5: Mild posterior disc bulge, mild to moderate bilateral facet hypertrophy , and circumferential prominence of the epidural fat contributing to mild spinal canal stenosis in the AP and transverse dimensions. Mild left neural foraminal narrowing inferiorly. Patent right neural foramen. L5-S1: Status post decompressive laminectomy with wide patency of the spinal canal. Mild posterior disc bulge with possible superimposed shallow central disc protrusion measuring up to 2.5 mm in AP dimension. Patent bilateral foramina. Subcentimeter renal cyst within the medial aspect of the right kidney. Nonspecific mild prominence of the common bile duct. IMPRESSION: 1. Anterior and posterior spinal fusion L5-S1. Decompressive laminectomy at this level with small to moderate-sized fluid collection within the midline posterior subcutaneous soft tissues likely reflecting a seroma. 2. Overall mild degenerative changes with mild spinal canal stenosis at L3-L4 and L4-L5, as detailed above. [id number] Performing Organization Address City/State/Zipcode Phone Number [facility] [address] [place] [address] Estimated GFR (12/28/2018 11:39 AM CDT)Only the most recent of5 resultswithin the time period is included. Estimated GFR >=90 mL/min/1.73 [place] [facility] Comment: m2 [facility] G1 >=90 Normal or high G2 60-89Mildly decreased [id number] to moderately decreased [id number] to severely decreased G4 15-29Severely decreased G5 <15Kidney failure The eGFR was calculated using the Chronic Kidney Disease Epidemiology Collaboration (CKD-EPI) equation. Interpretation is based on recommendations of the National Kidney Foundation-Kidney Disease Outcomes Quality Initiative (NKF-KDOQI) published in 2014. Specimen Plasma specimen Performing Organization Address City/State/Zipcode Phone Number [facility] DEPARTMENT OF PATHOLOGY [address] [place] [address] [facility] [address] Creatinine, whole blood (12/28/2018 11:39 AM CDT) Creatinine, whole 0.52 0.50 - 0.90 [facility] blood mg/dL [facility] Specimen Plasma specimen Performing Organization Address City/State/Zipcode Phone Number [facility] DEPARTMENT OF PATHOLOGY [address] [place] [address] AND [facility] [address] XR Lumbar Spine Ap Lateral Flexion And Extension (11/04/2018 8:[address] [facility])Only the most recent of2 resultswithin the time period is included. Specimen Narrative Performed At EXAMINATION: XR LUMBAR SPINE AP LATERALFLEXION AND EXTENSION RADIANT CLINICAL HISTORY: M51.36 Other intervertebral disc degenerationlumbar region, LUMBAR DDD COMPARISON:Lumbar radiographs 08/03/2018 IMPRESSION: Stable exam compared with 08/03/2018. Posterior spinal fusion L5-S1 with bilateral rods and screws. Anterior spinal fusion L5-S1 with interbody graft and anterior screw fixation. Hardware appears intact and in functional position. Minimal right convex lumbar curvature. Question of trace grade 1 anterolisthesis of L4 on L5 measuring 2 mm. No evidence of dynamic instability with markedly limited range of motion. Decompressive L5 laminectomy. Vertebral body heights appear maintained. No suspicious osseous lesion. Minimal multilevel anterior endplate spurring. Cholecystectomy clips. [id number] Procedure Note Hm Interface, Radiology Results Incoming - 11/04/2018 8:[address] [facility] EXAMINATION: XR LUMBAR SPINE AP LATERAL FLEXION AND EXTENSION CLINICAL HISTORY: M51.36 Other intervertebral disc degeneration lumbar region , LUMBAR DDD COMPARISON: Lumbar radiographs 08/03/2018 IMPRESSION: Stable exam compared with 08/03/2018. Posterior spinal fusion L5-S1 with bilateral rods and screws. Anterior spinal fusion L5-S1 with interbody graft and anterior screw fixation. Hardware appears intact and in functional position. Minimal right convex lumbar curvature. Question of trace grade 1 anterolisthesis of L4 on L5 measuring 2 mm. No evidence of dynamic instability with markedly limited range of motion. Decompressive L5 laminectomy. Vertebral body heights appear maintained. No suspicious osseous lesion. Minimal multilevel anterior endplate spurring. Cholecystectomy clips. [id number] Performing Organization Address [facility]/Zipcode Phone Number [facility] [address] [place] [address] POC glucose (07/21/2018 11:[address] [facility])Only the most recent of25 resultswithin the time period is included. POC glucose 133 (H) 65 - 99 mg/dL [facility] Comment: [facility] RN Notified Meter ID: [id number] Color Consultant: Osman Ana Specimen Performing Organization Address [facility] Phone Number [facility] DEPARTMENT OF PATHOLOGY [address] [place] [address] [facility] [address] XR Abdomen 1 Vw (07/19/2018 6:[address] [facility]) Specimen Narrative Performed At EXAMINATION:XR ABDOMEN 1 VW [facility] CLINICAL HISTORY: 53 years 1965 rule out ileus COMPARISON:None. IMPRESSION: 1.Bowel gas pattern is nonspecific, nonobstructive. No dilated air-filled loops of bowel. 2.No plain film evidence of free air. Visualized lung bases clear. 3.Surgical clips over the right upper quadrant. Postsurgical changes in the spine with presumed overlying drain. [id number] Procedure Note Interface, Radiology Results Incoming - 07/19/2018 7:[address] [facility] EXAMINATION: XR ABDOMEN 1 VW CLINICAL HISTORY: 53 years 1965 rule out ileus COMPARISON: None. IMPRESSION: 1. Bowel gas pattern is nonspecific, nonobstructive. No dilated air-filled loops of bowel. 2. No plain film evidence of free air. Visualized lung bases clear. 3. Surgical clips over the right upper quadrant. Postsurgical changes in the spine with presumed overlying drain. [facility]-[id number] Performing Organization Address [facility]/Zipcode Phone Number [facility] [address] [place] [address] CBC with platelet and differential (07/19/2018 6:[address] [facility])Only the most recent of3 resultswithin the time period is included. WBC 10.1 4.5 - 11.0 k/uL [facility] RBC 3.27 (L) 4.20 - 5.50 [facility] m/uL [facility] HGB 10.1 (L) 12.0 - 16.0 [facility] g/dL [facility] HCT 30.3 (L) 37.0 - 47.0 % [facility] MCV 92.7 82.0 - 100.0 fL [facility] MCH 30.9 27.0 - 34.0 pg [facility] MCHC 33.3 31.0 - 37.0 [facility] g/dL [facility] RDW - SD 41.5 37.0 - 55.0 fL [facility] MPV 10.3 6.9 - 11.0 fL [facility] Platelet count 291 150 - 400 K/uL [facility] Nucleated RBC 0.00 /100 WBC [facility] Neutrophils 63.8 39.0 - 69.0 % [facility] Lymphocytes 24.1 (L) 25.0 - 45.0 % [facility] Monocytes 9.5 0.0 - 10.0 % [facility] Eosinophils 1.7 0.0 - 5.0 % [facility] Basophils 0.6 0.0 - 1.0 % [facility] Immature granulocytes 0.3 0.0 - 1.0 % [facility] Specimen Blood Performing Organization Address City/State/Zipcode Phone Number [facility] DEPARTMENT OF PATHOLOGY [address] [place] [address] [facility] [address] [place] [address] HOSPITAL Basic metabolic panel (07/19/2018 6:[address] [facility])Only the most recent of4 resultswithin the time period is included. Sodium 140 135 - 148 mEq/L [facility] Potassium 3.8 3.5 - 5.0 mEq/L [facility] Chloride 101 98 - 112 mEq/L [facility] CO2 27 24 - 31 mEq/L [facility] Anion gap 12@ANIO 7 - 15 mEq/L [facility] BUN 8 6 - 20 mg/dL [facility] Creatinine 0.41 (L) 0.50 - 0.90 mg/dL [facility] Glucose 197 (H) 65 - 99 mg/dL [facility] Calcium 8.6 8.3 - 10.2 mg/dL [facility] Specimen Plasma specimen Performing Organization Address City/[facility]/Zipcode Phone Number [facility] DEPARTMENT OF PATHOLOGY [id number] [place] [address] [place] [address] [facility] Magnesium level (07/18/2018 6:[address] VENDOR)Only the most recent of2 resultswithin the time period is included. Pathologist [facility] Magnesium 1.4 (L) 1.6 - 2.6 mg/dL [facility] Specimen Plasma specimen Performing Organization Address City/[facility]/Zipcode Phone Number [facility] DEPARTMENT OF PATHOLOGY [address] [place] [address] [place] [address] HOSPITAL Phosphorus level (07/17/2018 6:[address] VENDOR) [facility] Phosphorus 2.6 2.4 - 4.5 mg/dL [facility] DEPARTMENT OF PATHOLOGY AND [employer] Specimen Plasma specimen Performing Organization Address City/[facility] Phone Number [facility] DEPARTMENT OF PATHOLOGY [address] [place] [address]. [place] [address] AND [facility] [place] > I Hour (07/16/2018 2:[address] VENDOR) Specimen Narrative Performed At EXAMINATION:[place] 1 HOUR [facility] IMPRESSION: Fluoroscopy was provided. No radiologist present.Please see procedure report for discussion of procedure, findings and fluoroscopic time. FLUOROSCOPIC TIME:36.2 seconds NUMBER OF IMAGES: 4 [facility]-[id number] Procedure Note Interface, Radiology Results Incoming - 07/16/2018 3:[address] VENDOR EXAMINATION: [place] 1 HOUR IMPRESSION: Fluoroscopy was provided. No radiologist present. Please see procedure report for discussion of procedure, findings and fluoroscopic time. FLUOROSCOPIC TIME: 36.2 seconds NUMBER OF IMAGES: 4 [facility]-[id number] Performing Organization Address City/State/Zipcode Phone Number [facility] [address] [place] [address] Urinalysis screen and microscopy, with reflex to culture (07/16/2018 8:[address] VENDOR) Specimen site Catheterized [facility] DEPARTMENT OF PATHOLOGY AND GENOMIC MEDICINE Color, UA Yellow [facility] DEPARTMENT OF PATHOLOGY AND GENOMIC MEDICINE Appearance, UA Sl Cloudy [facility] DEPARTMENT OF PATHOLOGY AND GENOMIC MEDICINE Specific gravity, 1.019 1.001 - 1.030 [facility] DEPARTMENT OF UA PATHOLOGY AND GENOMIC MEDICINE pH, UA 6.0 5.0 - 9.0 [facility] DEPARTMENT OF PATHOLOGY AND GENOMIC MEDICINE Protein, UA Negative Negative [facility] DEPARTMENT OF PATHOLOGY AND GENOMIC MEDICINE Glucose, UA Negative Negative [facility] DEPARTMENT OF PATHOLOGY AND GENOMIC MEDICINE Ketones, UA Negative Negative [facility] DEPARTMENT OF PATHOLOGY AND GENOMIC MEDICINE Bilirubin, UA Negative Negative [facility] DEPARTMENT OF PATHOLOGY AND GENOMIC MEDICINE Blood, UA Negative Negative [facility] DEPARTMENT OF PATHOLOGY AND GENOMIC MEDICINE Nitrite, UA Negative Negative [facility] DEPARTMENT OF PATHOLOGY AND GENOMIC MEDICINE Urobilinogen, UA <2.0 <2.0 E.U./dL [facility] DEPARTMENT OF PATHOLOGY AND GENOMIC MEDICINE Leukocyte esterase, Negative Negative [facility] DEPARTMENT OF UA PATHOLOGY AND GENOMIC MEDICINE Epithelial cells, 1 /HPF [facility] DEPARTMENT OF UA PATHOLOGY AND GENOMIC MEDICINE Round epithelial <1 0 - 5 /HPF [facility] DEPARTMENT OF cells, UA PATHOLOGY AND GENOMIC MEDICINE WBC, UA 8 (H) 0 - 4 /HPF [facility] DEPARTMENT OF PATHOLOGY AND GENOMIC MEDICINE RBC, UA 1 0 - 5 /HPF [facility] DEPARTMENT OF PATHOLOGY AND GENOMIC MEDICINE Bacteria, UA None seen None seen [facility] DEPARTMENT OF PATHOLOGY AND GENOMIC MEDICINE Yeast, UA None seen [facility] DEPARTMENT OF PATHOLOGY AND GENOMIC MEDICINE Yeast with None seen [facility] DEPARTMENT OF pseudohyphae, UA PATHOLOGY AND GENOMIC MEDICINE Specimen Urine - Urine, catheter Performing Organization Address City/[facility]/Zipcode Phone Number [facility] DEPARTMENT OF PATHOLOGY [address] [place] [address] AND GENOMIC MEDICINE Gram stain (07/16/2018 8:[address] VENDOR) Gram stain result Rare WBC's [facility] DEPARTMENT OF No organisms seen PATHOLOGY AND GENOMIC MEDICINE Comment: Specimen Information Specimen Source: Urine Specimen Site: Catheterized Specimen Urine - Catheterized Performing Organization Address City/State/Zipcode Phone Number [facility] DEPARTMENT OF PATHOLOGY AND [address] [place] [address] GENOMIC MEDICINE Urine culture (07/16/2018 8:[address] VENDOR) Pathologist Mikki Urine culture ~No growth after 10 [facility] DEPARTMENT OF isolate hours PATHOLOGY AND Mixed linda <=10-3 GENOMIC MEDICINE col/cc Comment: Specimen Information Specimen Source: Urine Specimen Site: Catheterized Specimen Urine - Catheterized Performing Organization Address City/State/Zipcode Phone Number [facility] DEPARTMENT OF PATHOLOGY AND [address] [place] [address] GENOMIC MEDICINE Type and screen (07/15/2018 9:[address] VENDOR) ABO grouping A [facility] DEPARTMENT OF PATHOLOGY AND GENOMIC MEDICINE Rh type POS [facility] DEPARTMENT OF PATHOLOGY AND GENOMIC MEDICINE Antibody screen (gel) NEG [facility] DEPARTMENT OF PATHOLOGY AND GENOMIC MEDICINE Specimen Blood Performing Organization Address [facility]/Zipcode Phone Number [facility] DEPARTMENT OF PATHOLOGY [address] [place] [address] AND GENOMIC MEDICINE after 02/02/2018 Insurance Payer Benefit Plan / Subscriber ID Effective Phone Address Type Group Dates MEDICAID MEDICAID xxxxxxxxx 2011-Prese Medicaid nt CIGNA CIGNA xxxxxxxx 2017-Prese [facility] ADV Advance Directives Patient has advance care planning documents on file. For more information, please contact:Jordon Garay[address] [place] [address]
== END 2019-02-02 20:03 | disposition home or self-care (01) ==
LOC: ER 18:52
DX: N39.0 Urinary tract infection, site not specified (principal); J45.909 Unspecified asthma, uncomplicated; C50.919 Malignant neoplasm of unspecified site of unspecified female breast; J44.9 Chronic obstructive pulmonary disease, unspecified; E11.9 Type 2 diabetes mellitus without complications; M10.9 Gout, unspecified; I10 Essential (primary) hypertension; E03.9 Hypothyroidism, unspecified
CPT/HCPCS: 87077; 87086; 87088; 87186; 99283

== ENCOUNTER 2019-03-27 15:36 | Emergency (ER) | payer OTHER ==
--- OUTSIDE RECORDS SUMMARY | 2019-03-27 15:38 | XMS REPORT ---
:1965 Author Organization [employer] Care Team Providers Name Role Phone Tawana Ramirez Provider Role Unavailable Allergies No Known Allergies Problems Problem Type Condition Code Onset Dates Condition Status Problem High cholesterol E78.00 Active Problem Depression with anxiety F41.8 Active Problem Sinus problem J34.9 Active Problem Diabetes E11.9 Active Problem Anxiety F41.9 Active Problem Essential hypertension I10 Active Problem Acquired hypothyroidism E03.9 Active Problem Chronic pain syndrome G89.4 Active Problem Asthma J45.909 Active Problem Polyarthralgia M25.50 Active Problem Asthma, unspecified asthma J45.909 Active severity, unspecified whether complicated, unspecified whether persistent Problem High blood pressure I10 Active Problem Uncontrolled type 2 diabetes E11.65 Active mellitus with hyperglycemia Problem Gastroesophageal reflux disease, K21.9 Active esophagitis presence not specified Problem Chronic obstructive pulmonary J44.9 Active disease, unspecified COPD type Problem Abnormal urine odor R82.90 Active Problem Hoarseness R49.0 Active Problem Hyperlipidemia, unspecified E78.5 Active hyperlipidemia type Problem Swelling R60.9 Active Medications No Known Medications Results No Known Results Summary Purpose [employer]Clinical[employer] Submission
--- OUTSIDE RECORDS SUMMARY | 2019-03-27 15:38 | XMS REPORT ---
:1965 Author Organization [employer] Care Team Providers Name Role Phone Tawana Ramirez Provider Role Unavailable Allergies No Known Allergies Problems Problem Type Condition Code Onset Dates Condition Status Problem Uncontrolled type 2 diabetes E11.65 Active mellitus with hyperglycemia Problem Anxiety F41.9 Active Problem Asthma J45.909 Active Problem Diabetes E11.9 Active Problem Swelling R60.9 Active Problem High blood pressure I10 Active Problem Sinus problem J34.9 Active Problem High cholesterol E78.00 Active Medications Medication Code Code Instructions Start End Date Status Dosage System Date Flonase [facility] [id number] 2 sprays per February 17, Active as directed nostril once a 2018 day Results No Known Results Summary Purpose eClinicalWorks Submission
--- OUTSIDE RECORDS SUMMARY | 2019-03-27 15:38 | XMS REPORT | Clinical Summary ---
:1965 Author Organization [facility] Address [address] [place] [address] Care Team Providers Name Role Phone Radhames [...] Preop testing Appointment Testing (Primary Dx) after 03/26/2018 Family History Medical History Relation Name Comments [...] Taken Blood Pressure 160/62 07/21/2018 11:14 AM DEFENSIVE DRIVING INSTRUCTOR Pulse 82 07/21/2018 11:56 AM DEFENSIVE DRIVING INSTRUCTOR Temperature 36.9 C (98.4 F) 07/21/2018 11:14 AM DEFENSIVE DRIVING INSTRUCTOR Respiratory Rate 18 07/21/2018 11:56 AM DEFENSIVE DRIVING INSTRUCTOR Oxygen Saturation 97% 07/21/2018 11:56 AM DEFENSIVE DRIVING INSTRUCTOR Inhaled Oxygen Concentration - - Weight 87.5 kg (193 lb) 07/15/2018 8:48 AM DEFENSIVE DRIVING INSTRUCTOR Height 162.6 cm (5' 4") 07/15/2018 8:48 AM DEFENSIVE DRIVING INSTRUCTOR Body Mass Index 33.13 07/15/2018 8:48 AM DEFENSIVE DRIVING INSTRUCTOR Plan of Treatment Health Maintenance Due Date Last Done Comments BREAST CANCER SCREENING 2013 COLONOSCOPY SCREENING 2013 SHINGLES VACCINES (#1) 2013 INFLUENZA VACCINE 04/07/2019 08/27/2009 Implants Implanted Type Area Survey Cad Technician Device Shelf Model / Serial Identifier Expiration / Lot Date Chip Canc Allograft Leader [facility] 15cc 0.1-4mm - [id number] Human Tissue Anterio MUSCULOSKELETAL 05/03/2021 [id number] / Implanted: Qty: 1 on 07/16/2018 by Parish Rivers MD Implants r: TRANSPLANT / Spine, FOUNDATION [id number] Multi-L evel Kit Bone Grft Lmbr Tprd 8ml Xxl Infuse - [id number] Human Tissue Anterio [employer] SPINAL [id number] / Implanted: Qty: 1 on 07/16/2018 by Parish Rivers MD Implants r: AND BIOLOG[employer] / Spine, Multi-L evel Interbody [id number] Medium - 18 Deg 16mm - [id number] - [id number] [id number] IMPLANT Anterio [employer] 11/20/2024 [id number] / Implanted: Qty: 1 on 07/16/2018 by Parish Rivers MD DEVICES r: SOFAMOR DANEK 74DP / Spine, 74DP Multi-L evel Sovereign Fa Screw [id number] 5.5 X 25mm - [id number] IPM IMPLANT Anterio [employer] [id number] / Implanted: Qty: 1 on 07/16/2018 by Parish Rivers MD DEVICES r: SOFAMOR DANEK / Spine, Multi-L evel Set Screw [id number] 5.5 Ti Ns Brk Off - [id number] IPM IMPLANT N/A: [employer] [id number] / Implanted: 07/16/2018 (Quantity not on file) DEVICES N/A SOFAMOR DANEK / Sergio [id number] 5.5 Ccm Ns Curv 35mm - [id number] IPM IMPLANT Anterio [employer] [id number] / Implanted: 07/16/2018 (Quantity not on file) DEVICES r: SOFAMOR DANEK / Spine, VENDOR LOT NA Multi-L evel Screw [id number] 5.5 Mas 6.5x55 Cc - [id number] IPM IMPLANT N/A: [employer] [id number] / Implanted: 07/16/2018 (Quantity not on file) DEVICES N/A SOFAMOR DANEK / Screw [id number] 5.5 Mas 6.5x50 Cc - Svendor Lot Na - [id number] IPM IMPLANT Posteri [employer] [id number] / Implanted: Qty: 1 on 07/16/2018 by Parish Rivers MD DEVICES or: SOFAMOR DANEK VENDOR LOT NA / Spine, VENDOR LOT NA Sacral Screw [id number] 5.5 Mas 6.5x50 Cc - [id number] IPM IMPLANT Posteri [employer] [id number] / Implanted: Qty: 1 on 07/16/2018 by Parish Rivers MD DEVICES or: SOFAMOR DANEK / Spine, VENDOR LOT NA Sacral Washer Bone Grft Ti 17mm - [id number] Orthopedic Anterio [employer] SPINAL [id number] / Implanted: Qty: 1 on 07/16/2018 by [...] Results for this LATERAL FLEXION AND AM DEFENSIVE DRIVING INSTRUCTOR disc disease), procedure are in EXTENSION lumbar the results section. XR LUMBAR SPINE AP Routine 08/03/2018 1:37 DDD (degenerative Results for this LATERAL FLEXION AND PM DEFENSIVE DRIVING INSTRUCTOR disc disease), procedure are in EXTENSION lumbar the results section. POC GLUCOSE Routine 07/21/2018 11:14 Results for this AM DEFENSIVE DRIVING INSTRUCTOR procedure are in the results section. POC GLUCOSE Routine 07/21/2018 6:40 Results for this AM DEFENSIVE DRIVING INSTRUCTOR procedure are in the results section. POC GLUCOSE Routine 07/21/2018 5:26 Results for this AM DEFENSIVE DRIVING INSTRUCTOR procedure are in the results section. POC GLUCOSE Routine 07/20/2018 4:55 Results for this PM DEFENSIVE DRIVING INSTRUCTOR procedure are in the results section. POC GLUCOSE Routine 07/20/2018 11:06 Results for this AM DEFENSIVE DRIVING INSTRUCTOR procedure are in the results section. POC GLUCOSE Routine 07/20/2018 6:14 Results for this AM DEFENSIVE DRIVING INSTRUCTOR procedure are in the results section. POC GLUCOSE Routine 07/19/2018 9:27 Results for this PM DEFENSIVE DRIVING INSTRUCTOR procedure are in the results section. XR ABDOMEN 1 VW Routine 07/19/2018 6:20 Results for this PM DEFENSIVE DRIVING INSTRUCTOR procedure are in the results section. POC GLUCOSE Routine 07/19/2018 4:53 Results for this PM DEFENSIVE DRIVING INSTRUCTOR procedure are in the results section. POC GLUCOSE Routine 07/19/2018 11:50 Results for this AM DEFENSIVE DRIVING INSTRUCTOR procedure are in the results section. ESTIMATED GFR Routine 07/19/2018 6:40 Results for this AM DEFENSIVE DRIVING INSTRUCTOR procedure are in the results section. BASIC METABOLIC Routine 07/19/2018 6:40 Results for this PANEL AM DEFENSIVE DRIVING INSTRUCTOR procedure are in the results section. HC COMPLETE BLD Routine 07/19/2018 6:40 Results for this COUNT W/AUTO DIFF AM DEFENSIVE DRIVING INSTRUCTOR procedure are in the results section. POC GLUCOSE Routine 07/19/2018 5:17 Results for this AM DEFENSIVE DRIVING INSTRUCTOR procedure are in the results section. POC GLUCOSE Routine 07/18/2018 8:30 Results for this PM DEFENSIVE DRIVING INSTRUCTOR procedure are in the results section. POC GLUCOSE Routine 07/18/2018 3:31 Results for this PM DEFENSIVE DRIVING INSTRUCTOR procedure are in the results section. POC GLUCOSE Routine 07/18/2018 11:21 Results for this AM DEFENSIVE DRIVING INSTRUCTOR procedure are in the results section. ESTIMATED GFR Routine 07/18/2018 6:15 Results for this AM DEFENSIVE DRIVING INSTRUCTOR procedure are in the results section. MAGNESIUM LEVEL Routine 07/18/2018 6:15 Results for this AM DEFENSIVE DRIVING INSTRUCTOR procedure are in the results section. BASIC METABOLIC Routine 07/18/2018 6:15 Results for this PANEL AM DEFENSIVE DRIVING INSTRUCTOR procedure are in the results section. HC COMPLETE BLD Routine 07/18/2018 6:15 Results for this COUNT W/AUTO DIFF AM DEFENSIVE DRIVING INSTRUCTOR procedure are in the results section. POC GLUCOSE Routine 07/18/2018 5:38 Results for this AM DEFENSIVE DRIVING INSTRUCTOR procedure are in the results section. POC GLUCOSE Routine 07/17/2018 8:21 Results for this PM DEFENSIVE DRIVING INSTRUCTOR procedure are in the results section. POC GLUCOSE Routine 07/17/2018 4:48 Results for this PM DEFENSIVE DRIVING INSTRUCTOR procedure are in the results section. POC GLUCOSE Routine 07/17/2018 11:13 Results for this AM DEFENSIVE DRIVING INSTRUCTOR procedure are in the results section. POC GLUCOSE Routine 07/17/2018 7:26 Results for this AM DEFENSIVE DRIVING INSTRUCTOR procedure are in the results section. ESTIMATED GFR Routine 07/17/2018 6:15 Results for this AM DEFENSIVE DRIVING INSTRUCTOR procedure are in the results section. PHOSPHORUS LEVEL Routine 07/17/2018 6:15 Results for this AM DEFENSIVE DRIVING INSTRUCTOR procedure are in the results section. MAGNESIUM LEVEL Routine 07/17/2018 6:15 Results for this AM DEFENSIVE DRIVING INSTRUCTOR procedure are in the results section. BASIC METABOLIC Routine 07/17/2018 6:15 Results for this PANEL AM DEFENSIVE DRIVING INSTRUCTOR procedure are in the results section. HC COMPLETE BLD Routine 07/17/2018 6:15 Results for this COUNT W/AUTO DIFF AM DEFENSIVE DRIVING INSTRUCTOR procedure are in the results section. POC GLUCOSE Routine 07/16/2018 8:12 Results for this PM DEFENSIVE DRIVING INSTRUCTOR procedure are in the results section. ESTIMATED GFR Routine 07/16/2018 5:32 Results for this PM DEFENSIVE DRIVING INSTRUCTOR procedure are in the results section. BASIC METABOLIC Routine 07/16/2018 5:32 Results for this PANEL PM DEFENSIVE DRIVING INSTRUCTOR procedure are in the results section. POC GLUCOSE Routine 07/16/2018 5:03 Results for this PM DEFENSIVE DRIVING INSTRUCTOR procedure are in the results section. POC GLUCOSE Routine 07/16/2018 4:00 Results for this PM DEFENSIVE DRIVING INSTRUCTOR procedure are in the results section. POC GLUCOSE Routine 07/16/2018 3:25 Results for this PM DEFENSIVE DRIVING INSTRUCTOR procedure are in the results section. POC GLUCOSE Routine 07/16/2018 2:58 Results for this PM DEFENSIVE DRIVING INSTRUCTOR procedure are in the results section. [place] FL > 1 HOUR Routine 07/16/2018 2:30 Results for this PM DEFENSIVE DRIVING INSTRUCTOR procedure are in the results section. POC GLUCOSE Routine 07/16/2018 2:23 Results for this PM DEFENSIVE DRIVING INSTRUCTOR procedure are in the results section. ARTERIAL LINE Routine 07/16/2018 9:16 AM DEFENSIVE DRIVING INSTRUCTOR Procedure Note - Selvin Novoa MD - 07/16/2018 9:16 AM DEFENSIVE DRIVING INSTRUCTOR R Radial Arterial Line Performed by: SELVIN [...] complications Notes: No hematoma noted, waveform present AK AN ELECTIVE ENDOTRACHEAL AIRWAY Routine 07/16/2018 8:46 AM DEFENSIVE DRIVING INSTRUCTOR Procedure Note - Latasha Sigala CRNA - 07/16/2018 8:46 AM DEFENSIVE DRIVING INSTRUCTOR Airway Date/Time: 07/16/2018 8:24 AM Performed by: LATASHA SIGALA Authorized by: SELVIN NOVOA Location: OR Urgency: Elective Difficult Airway: No Anesthesiologist: SELVIN NOVOA Resident/ACOUSTICAL LOGGING ENGINEER/AA: LATASHA SIGALA Preoxygenated with 100% O2: Yes [...] Results for this AND MICROSCOPY, WITH AM DEFENSIVE DRIVING INSTRUCTOR intervertebral disc of procedure are in REFLEX TO CULTURE lumbosacral region the results section. URINE CULTURE Timed 07/16/2018 8:27 Results for this AM DEFENSIVE DRIVING INSTRUCTOR procedure are in the results section. GRAM STAIN Timed 07/16/2018 8:27 Results for this AM DEFENSIVE DRIVING INSTRUCTOR procedure are in the results section. POC GLUCOSE Routine 07/16/2018 7:01 Results for this AM DEFENSIVE DRIVING INSTRUCTOR procedure are in the results section. TYPE AND SCREEN Routine 07/15/2018 9:45 Preop testing Results for this AM DEFENSIVE DRIVING INSTRUCTOR procedure are in the results section. after 03/26/2018 Results MRI Lumbar Spine W Wo Contrast [...] at L3-L4 and L4-L5, as detailed above. [id number] Procedure Note Hm Interface, Radiology Results Incoming [...] at L3-L4 and L4-L5, as detailed above. [id number] Performing Organization Address City/State/Zipcode Phone Number [facility] [address] [place] [address] Estimated GFR (12/28/2018 11:39 AM CDT)Only the most recent of5 resultswithin the time period is included. Estimated GFR >=90 mL/min/1.73 [place] [facility] Comment: m2 [facility] G1 >=90 Normal or high G2 60-89Mildly decreased D1t25-91[place] to moderately decreased Z5v81-60Qhdtjctisg to severely decreased G4 15-29Severely decreased G5 <15Kidney failure The eGFR was calculated using the Chronic Kidney Disease Epidemiology Collaboration (CKD-EPI) equation. Interpretation is based on recommendations of the National Kidney Foundation-Kidney Disease Outcomes Quality Initiative (NKF-KDOQI) published in 2014. Specimen Plasma specimen Performing Organization Address City/State/Zipcode Phone Number [facility] DEPARTMENT OF PATHOLOGY [address] [facility] [place] [address] AND GENOMIC MEDICINE [facility] [address] Creatinine, whole blood (12/28/2018 11:39 AM CDT) Creatinine, whole 0.52 0.50 - 0.90 [facility] blood mg/dL [facility] Specimen Plasma specimen Performing Organization Address City/State/Zipcode Phone Number [facility] DEPARTMENT OF PATHOLOGY [address] [place] [address] AND GENOMIC [facility] [address] XR Lumbar Spine Ap Lateral Flexion And Extension (11/04/2018 8:17 AM DEFENSIVE DRIVING INSTRUCTOR)Only the most recent of2 resultswithin the time [...] Minimal multilevel anterior endplate spurring. Cholecystectomy clips. [id number] Procedure Note Hm Interface, Radiology Results Incoming - 11/04/2018 8:35 AM DEFENSIVE DRIVING INSTRUCTOR EXAMINATION: XR LUMBAR SPINE AP LATERAL FLEXION [...] Minimal multilevel anterior endplate spurring. Cholecystectomy clips. [id number] Performing Organization Address [facility]/Zipcode Phone Number [facility] [address] [place] [address] POC glucose (07/21/2018 11:14 AM DEFENSIVE DRIVING INSTRUCTOR)Only the most recent of25 resultswithin the time period is included. Pathologist [facility] POC glucose 133 (H) 65 - 99 mg/dL [facility] Comment: [facility] RN Notified Meter ID: [id number] Cable Repairer: Osman Ana Specimen Performing Organization Address [facility] Hospital[facility] Phone Number [facility] DEPARTMENT OF PATHOLOGY [address] [place] [address] AND GENOMIC MEDICINE [facility] [address] XR Abdomen 1 Vw (07/19/2018 6:20 PM DEFENSIVE DRIVING INSTRUCTOR) Specimen Narrative Performed At EXAMINATION:[facility] 1 [facility] CLINICAL H[facility]ORY: 53 years 1965 rule out ileus COMPARISON:None. IMPRESSION: 1.Bowel gas pattern is nonspecific, nonobstructive. No dilated air-filled loops of bowel. 2.No plain film evidence of free air. Visualized lung bases clear. 3.Surgical clips over the right upper quadrant. Postsurgical changes in the spine with presumed overlying drain. [facility]-[id number] Procedure Note Interface, Radiology Results Incoming - 07/19/2018 7:14 PM DEFENSIVE DRIVING INSTRUCTOR EXAMINATION: XR ABDOMEN 1 VW CLINICAL HISTORY: 53 years 1965 rule out ileus COMPARISON: None. IMPRESSION: 1. Bowel gas pattern is nonspecific, nonobstructive. No dilated air-filled loops of bowel. 2. No plain film evidence of free air. Visualized lung bases clear. 3. Surgical clips over the right upper quadrant. Postsurgical changes in the spine with presumed overlying drain. [facility]-[id number] Performing Organization Address [facility]/Zipcode Phone Number [facility] [address] [place] [address] CBC with platelet and differential (07/19/2018 6:40 AM DEFENSIVE DRIVING INSTRUCTOR)Only the most recent of3 resultswithin the time period is included. WBC 10.1 4.5 - 11.0 k/uL [facility] RBC 3.27 (L) 4.20 - 5.50 [facility] m/uL [facility] HGB 10.1 (L) 12.0 - 16.0 [facility] g/dL [facility] HCT 30.3 (L) 37.0 - 47.0 % [facility] MCV 92.7 82.0 - 100.0 fL [facility] MCH 30.9 27.0 - 34.0 pg [facility] MCHC 33.3 31.0 - 37.0 [facility] g/dL [facility] RDW - SD 41.5 37.0 - 55.0 [...] Blood Performing Organization Address City/State/Zipcode Phone Number [facility] DEPARTMENT OF PATHOLOGY [address] [place] [address] AND GENOMIC MEDICINE [facility] [address] [place] [address] HOSPITAL Basic metabolic panel (07/19/2018 6:40 AM DEFENSIVE DRIVING INSTRUCTOR)Only the most recent of4 resultswithin the time [...] SYSTEM Specimen Plasma specimen Performing Organization Address City/[facility]/Zipcode Phone Number [facility] DEPARTMENT OF PATHOLOGY [address] [place] [address] [place] [address] HOSPITAL Magnesium level (07/18/2018 6:15 AM DEFENSIVE DRIVING INSTRUCTOR)Only the most recent of2 resultswithin the time period is included. Pathologist [facility] Magnesium 1.4 (L) 1.6 - 2.6 mg/dL [facility] Specimen Plasma specimen Performing Organization Address City/[facility]/Zipcode Phone Number [facility] DEPARTMENT OF PATHOLOGY [address] [place] [address] [place] [address] HOSPITAL Phosphorus level (07/17/2018 6:15 AM DEFENSIVE DRIVING INSTRUCTOR) [facility] Phosphorus 2.6 2.4 - 4.5 mg/dL [facility] DEPARTMENT OF PATHOLOGY AND [facility] Specimen Plasma specimen Performing Organization Address City/[facility]/Unm Hospitalcode Phone Number [facility] DEPARTMENT OF PATHOLOGY [address] [place] [address] AND [facility] [place] > I Hour (07/16/2018 2:30 PM DEFENSIVE DRIVING INSTRUCTOR) Specimen Narrative Performed At EXAMINATION:OR [place] 1 HOUR [facility] IMPRESSION: Fluoroscopy was provided. No radiologist present.Please see procedure report for discussion of procedure, findings and fluoroscopic time. FLUOROSCOPIC TIME:36.2 seconds NUMBER OF IMAGES: 4 [facility]-[id number] Procedure Note Interface, Radiology Results Incoming - 07/16/2018 3:07 PM DEFENSIVE DRIVING INSTRUCTOR EXAMINATION: [place] 1 HOUR IMPRESSION: Fluoroscopy was provided. No radiologist present. Please see procedure report for discussion of procedure, findings and fluoroscopic time. FLUOROSCOPIC TIME: 36.2 seconds NUMBER OF IMAGES: 4 [facility]-[id number] Performing Organization Address City/State/Zipcode Phone Number [facility] [address] [place] [address] Urinalysis screen and microscopy, with reflex to culture (07/16/2018 8:27 AM DEFENSIVE DRIVING INSTRUCTOR) Specimen site Catheterized [facility] DEPARTMENT OF PATHOLOGY AND GENOMIC MEDICINE Color, UA Yellow [facility] DEPARTMENT OF PATHOLOGY AND GENOMIC MEDICINE Appearance, UA Sl Cloudy [facility] DEPARTMENT OF PATHOLOGY AND GENOMIC MEDICINE Specific gravity, 1.019 1.001 - 1.030 [facility] DEPARTMENT OF UA PATHOLOGY AND GENOMIC MEDICINE pH, UA 6.0 5.0 - 9.0 [facility] DEPARTMENT OF PATHOLOGY AND GENOMIC MEDICINE Protein, UA Negative Negative [facility] DEPARTMENT OF PATHOLOGY AND GENOMIC MEDICINE Glucose, UA Negative Negative [facility] DEPARTMENT OF PATHOLOGY AND GENOMIC MEDICINE Ketones, UA Negative Negative [facility] DEPARTMENT OF PATHOLOGY AND GENOMIC MEDICINE Bilirubin, UA Negative Negative [facility] DEPARTMENT OF PATHOLOGY AND GENOMIC MEDICINE Blood, UA Negative Negative [facility] DEPARTMENT OF PATHOLOGY AND GENOMIC MEDICINE Nitrite, UA Negative Negative [facility] DEPARTMENT OF PATHOLOGY AND GENOMIC MEDICINE Urobilinogen, UA <2.0 <2.0 E.U./dL [facility] DEPARTMENT OF PATHOLOGY AND GENOMIC MEDICINE Leukocyte esterase, Negative Negative [facility] DEPARTMENT OF UA PATHOLOGY AND GENOMIC MEDICINE Epithelial cells, 1 /HPF [facility] DEPARTMENT OF UA PATHOLOGY AND GENOMIC MEDICINE Round epithelial <1 0 - 5 /HPF [facility] DEPARTMENT OF cells, UA PATHOLOGY AND GENOMIC MEDICINE WBC, UA 8 (H) 0 - 4 /HPF [facility] DEPARTMENT OF PATHOLOGY AND GENOMIC MEDICINE RBC, UA 1 0 - 5 /HPF [facility] DEPARTMENT OF PATHOLOGY AND GENOMIC MEDICINE Bacteria, UA None seen None seen [facility] DEPARTMENT OF PATHOLOGY AND GENOMIC MEDICINE Yeast, UA None seen [facility] DEPARTMENT OF PATHOLOGY AND GENOMIC MEDICINE Yeast with None seen [facility] DEPARTMENT OF pseudohyphae, UA PATHOLOGY AND GENOMIC MEDICINE Specimen Urine - Urine, catheter Performing Organization Address City/[facility]/Zipcode Phone Number [facility] DEPARTMENT OF PATHOLOGY [address] [place] [address] AND GENOMIC MEDICINE Gram stain (07/16/2018 8:27 AM DEFENSIVE DRIVING INSTRUCTOR) Pathologist [facility] Gram stain result Rare WBC's [facility] DEPARTMENT OF No organisms seen PATHOLOGY AND GENOMIC MEDICINE Comment: Specimen Information Specimen Source: Urine Specimen Site: Catheterized Specimen Urine - Catheterized Performing Organization Address City/[facility]/Zipcode Phone Number [facility] DEPARTMENT OF PATHOLOGY AND [address] [place] [address] GENOMIC MEDICINE Urine culture (07/16/2018 8:27 AM DEFENSIVE DRIVING INSTRUCTOR) Pathologist Mikki Urine culture ~No growth after 10 [facility] DEPARTMENT OF isolate hours PATHOLOGY AND Mixed linda <=10-3 GENOMIC MEDICINE col/cc Comment: Specimen Information Specimen Source: Urine Specimen Site: Catheterized Specimen Urine - Catheterized Performing Organization Address City/State/Zipcode Phone Number [facility] DEPARTMENT OF PATHOLOGY AND [address] [place] [address] GENOMIC MEDICINE Type and screen (07/15/2018 9:45 AM DEFENSIVE DRIVING INSTRUCTOR) ABO grouping A [facility] DEPARTMENT OF PATHOLOGY AND GENOMIC MEDICINE Rh type POS [facility] DEPARTMENT OF PATHOLOGY AND GENOMIC MEDICINE Antibody screen (gel) NEG [facility] DEPARTMENT OF PATHOLOGY AND GENOMIC MEDICINE Specimen Blood Performing Organization Address City/[facility]/Zipcode Phone Number [facility] DEPARTMENT OF PATHOLOGY [address] [place] [address] AND GENOMIC MEDICINE after 03/26/2018 Insurance Payer Benefit Plan / Subscriber ID Effective Phone Address Type Group Dates MEDICAID MEDICAID xxxxxxxxx 2011-Prese Medicaid nt CIGNA CIGNA xxxxxxxx 2017-Prese [facility] nt MCR ADV Advance Directives Patient has advance care planning documents on file. For more information, please contact:Jordon Garay[address] [place] [address]
--- OUTSIDE RECORDS SUMMARY | 2019-03-27 15:38 | XMS REPORT ---
:1965 [facility] Address [address] [place] [address] Care Team Providers Name Role Phone Unavailable Unavailable Unavailable Problems This patient has no known problems. Allergies, Adverse Reactions, Alerts This patient has no known allergies or adverse reactions. Medications This patient has no known medications.
--- OUTSIDE RECORDS SUMMARY | 2019-03-27 15:39 | XMS REPORT ---
:1965 [facility] Providers Name Role Phone Tawana Ramirez Provider Role Unavailable Allergies, Adverse Reactions, Alerts Substance Reaction Event Type N.K.D.A. Info Not Available Non Drug Allergy Problems Problem Type Condition Code Onset Dates Condition Status Assessment Polyarthralgia M25.50 Active Assessment Chronic pain syndrome G89.4 Active Assessment Asthma, unspecified asthma J45.909 Active severity, unspecified whether complicated, unspecified whether persistent Assessment Gastroesophageal reflux disease, K21.9 Active esophagitis presence not specified Assessment Chronic obstructive pulmonary J44.9 Active disease, unspecified COPD type Assessment Acquired hypothyroidism E03.9 Active Assessment Hyperlipidemia, unspecified E78.5 Active hyperlipidemia type Assessment Uncontrolled type 2 diabetes E11.65 Active mellitus with hyperglycemia Assessment Essential hypertension I10 Active Problem Hoarseness R49.0 Active Assessment Hoarseness R49.0 Active Problem Swelling R60.9 Active Assessment Acute pharyngitis, unspecified J02.9 Active etiology Problem High cholesterol E78.00 Active Problem Depression with anxiety F41.8 Active Problem Sinus problem J34.9 Active Problem Diabetes E11.9 Active Problem Anxiety F41.9 Active Assessment Abnormal urine odor R82.90 Active Assessment Acute UTI N39.0 Active Problem Essential hypertension I10 Active Assessment Follow-up exam Z09 Active Problem Acquired hypothyroidism E03.9 Active Problem Chronic pain syndrome G89.4 Active Problem Asthma J45.909 Active Problem Polyarthralgia M25.50 Active Problem Asthma, unspecified asthma J45.909 Active severity, unspecified whether complicated, unspecified whether persistent Assessment Depression with anxiety F41.8 Active Problem High blood pressure I10 Active Problem Uncontrolled type 2 diabetes E11.65 Active mellitus with hyperglycemia Problem Gastroesophageal reflux disease, K21.9 Active esophagitis presence not specified Problem Chronic obstructive pulmonary J44.9 Active disease, unspecified COPD type Problem Abnormal urine odor R82.90 Active Problem Hyperlipidemia, unspecified E78.5 Active hyperlipidemia type Medications Medication Code Code Instructions Start End Date Status Dosage System Date Magnesium NDC 41275030160 400 MG Orally Active as directed Estradiol [facility] 06515502786 0.5 MG Orally Active 1 tablet Pantoprazole [facility] 97606439079 40 MG Orally Active 1 tablet Sodium Once a day Simvastatin [facility] 31761471050 10 MG Orally Active 1 tablet Once a day in the evening Albuterol [facility] 78507640409 Twice a day Active 2 puffs by as needed mouth Meloxicam [facility] 71778342274 15 MG Orally November Active 1 tablet Once a day 2019 as needed for pain; take with foot Ondansetron HCl [facility] 02249023879 4 MG Orally Active 1 tablet Once a day Tessalon Perles [facility] 70309417332 100 mg Orally February 15February 25, Active 1 capsule Three times a 2018 2019 as needed day cough Losartan [facility] 41161311562 100-25 MG Active 1 tablet Potassium-HCTZ Orally Once a day FreeStyle Petrona [facility] 01559004627 - as directed February 15, Active as Inez Check BS 3x 2019 directed daily and prn Flonase Allergy [facility] 40256870677 50 MCG/ACT Active 1 spray in Relief Nasally Twice a each day nostril Augmentin [facility] 05638686002 500-125 MG February 15February 25, Active 1 tablet Orally Every 12 2018 2019 hours BusPIRone HCl [facility] 31993988010 10 MG Orally Active 1 tablet Twice a day Amitiza [facility] 44753626798 24 MCG Orally Active 1 capsule Once a day with food Esomeprazole [facility] 99577474605 40 MG Orally Active 1 capsule Magnesium Once a day Montelukast [facility] 23459359148 10 MG Orally Active 1 tablet Sodium Once a day FreeStyle Petrona [facility] 44176879177 - Subcutaneous February 15, Active as 14 Day Sensor Check BS 3x 2019 directed daily and prn Trulance [facility] 28843309576 3 MG Orally Active 1 tablet Once a day Levothyroxine ND 94408535991 50 MCG Orally Active 1 tablet Sodium Once a day on an empty stomach in the morning ProAir HFA [facility] 70736840818 108 (90 Base) February 18, Active 2 puffs as MCG/ACT 2019 needed for Inhalation SOB/wheezi every 4-6 hrs ng Results Name Result Date Reference Range Unit Abnormality Flag STREP A RAPID ----Result Negative [id number] Urine Dip Stick ----pH 7.0 20190215 ----Ketone Negative [id number] ----Appearance Yellow & Cear 20190215 ----SP. Gr 1.010 20190215 ----Leukocytes Negative 20190215 ----Glucose 2+ 20190215 ----Protein Negative [id number] ----Nitrite Negative [id number] ----Blood Negative [id number] Summary Purpose eClinicalWorks Submission
--- OUTSIDE RECORDS SUMMARY | 2019-03-27 15:39 | XMS REPORT ---
:1965 Author Organization [employer] Care Team Providers Name Role Phone Tannerjimmy Tawana Provider Role Unavailable Allergies No Known Allergies [...] hyperlipidemia type Problem Swelling R60.9 Active Medications Medication Code Code Instructions Start End Status Dosage System Date Date Gage Russ [facility] [id number] - as directed February Active as Garrison Check BS 3x 11, directed daily and prn 2019 FreeStyle Petrona [facility] 65046302529 - Subcutaneous February Active as 14 Day Sensor Check BS 3x 11, directed daily and prn 2019 Hydrocodone-Acet [facility] [address]-33 7.5-325 MG Active 1 tablet aminophen Orally tid as needed Pantoprazole ND 05533020556 40 MG Orally Active 1 tablet Sodium Once a day Simvastatin ND 48453257770 10 MG Orally Active 1 tablet Once a day in the evening ProAir HFA [facility] 77640984262 108 (90 Base) February Active 2 puffs as MCG/ACT 14, needed for Inhalation 2018 SOB/wheezi every 4-6 hrs ng Levothyroxine [facility] 62414080177 50 MCG Orally Active 1 tablet Sodium Once a day on an empty stomach in the morning Flonase [facility] 97333219888 2 sprays per February Active as nostril once a , directed day 2018 Victoza [facility] 45016999757 18 MG/3ML Active as Subcutaneous directed Ondansetron HCl [facility] 85514104496 4 MG Orally Active 1 tablet Once a day Victoza [facility] 34244939441 18 MG/3ML February Active 1.8 units Subcutaneous , , once daily 2018 2019 Tresiba [facility] 47098800337 200 UNIT/ML February Active 85 units FlexTouch Subcutaneous , daily 2018 Montelukast ND 39944643642 10 MG Orally Active 1 tablet Sodium Once a day BusPIRone HCl ND 27387553569 10 MG Orally Active 1 tablet Twice a day Albuterol [facility] 16896657077 Twice a day Active 2 puffs by as needed mouth Flonase Allergy [facility] 32434944253 50 MCG/ACT Active 1 spray in Relief Nasally Twice a each day nostril Meloxicam [facility] 91366966306 15 MG Orally November Active 1 tablet Once a day 10, as needed 2019 for pain; take with foot Augmentin [facility] 66177722690 500-125 MG February Active 1 tablet Orally Every 12 11, 21, hours 2018 2018 Tessalon Perles [facility] 40003483963 100 mg Orally February Active 1 capsule Three times a , 21, as needed day 2018 2018 cough Esomeprazole [facility] 81102825383 40 MG Orally Active 1 capsule Magnesium Once a day Estradiol ND 81991264862 0.5 MG Orally Active 1 tablet Once a day Tresiba [facility] 61301250561 200 UNIT/ML Active as FlexTouch Subcutaneous directed Pen Crockett [facility] 45184986478 32G X 6 MM February Active as directed 2018 Trulance [facility] 73354734660 3 MG Orally Active 1 tablet Once a day Magnesium [facility] 58890940934 400 MG Orally Active as directed Losartan [facility] 68035521250 100-25 MG Active 1 tablet Potassium-HCTZ Orally Once a day Results No Known Results Summary Purpose eClinicalWorks Submission
--- NOTE | 2019-03-27 15:56 | EDPHYS ---
Physician Documentation [facility] Name: Charlotte Ruvalcaba Age: 53 yrs Sex: Female : 1965 Arrival Date: 03/27/2019 Time: 15:38 Bed 20 Private MD: ED Physician Vinny Puga HPI: 03/27 15:53 This 53 yrs old Black Female presents to ER via Ambulatory with complaints of Back Pain.pm1 15:53 The patient presents with pain that is chronic. The symptoms are located in the low pm1 back. Onset: The symptoms/episode began/occurred Patient with fall injury on December 2017 with surgery in July 2018. Patient reports increase in pain the past 1.5 weeks. Sees pain management, Dr. Deleon. Patient currently takes Hydrocodone 7.5 mg and reports no longer working. Had steroid injection to back from [facility] last month. Has appointment with Dr. Rivers, neurosurgeon next month and has appointment with Pancho on 04/06. The pain does not radiate. Associated signs and symptoms: The patient has no apparent associated signs or symptoms, Pertinent negatives: dysuria, fever, headache, incontinence, numbness, tingling, weakness. The problem was sustained from a chronic condition, the patient has had previous back surgery. Severity of symptoms: in the emergency department the symptoms are actually worse. The patient has experienced similar episodes in the past, chronically. Historical: - Allergies: 15:43 NKDA; la1 - PMHx: 15:43 Asthma; breast cancer; chronic pain, sees pain doctor; COPD; Diabetes - IDDM; Gout; la1 Hypertension; Hypothyroidism; - Immunization history:: Adult Immunizations up to date. - Social history:: Smoking status: Patient/guardian denies using tobacco. - Ebola Screening: : No symptoms or risks identified at this time. ROS: 15:53 Constitutional: Negative for fever, chills, and weight loss, Neck: Negative for injury, pm1 pain, and swelling, Cardiovascular: Negative for chest pain, palpitations, and edema, Respiratory: Negative for shortness of breath, cough, wheezing, and pleuritic chest pain, Abdomen/GI: Negative for abdominal pain, nausea, vomiting, diarrhea, and constipation. 15:53 : Negative for injury, bleeding, discharge, and swelling, MS/Extremity: Negative for injury and deformity, Skin: Negative for injury, rash, and discoloration. 15:53 Neuro: Negative for headache, weakness, numbness, tingling, and seizure. 15:53 Back: Positive for of the low back area, pain. Exam: 15:53 Constitutional: This is a well developed, well nourished patient who is awake, alert, pm1 and in no acute distress. Head/Face: Normocephalic, atraumatic. Neck: Trachea midline, no thyromegaly or masses palpated, and no cervical lymphadenopathy. Supple, full range of motion without nuchal rigidity, or vertebral point tenderness. No Meningismus. Chest/axilla: Normal chest wall appearance and motion. Nontender with no deformity. No lesions are appreciated. Cardiovascular: Regular rate and rhythm with a normal S1 and S2. No gallops, murmurs, or rubs. Normal PMI, no JVD. No pulse deficits. Respiratory: Lungs have equal breath sounds bilaterally, clear to auscultation and percussion. No rales, rhonchi or wheezes noted. No increased work of breathing, no retractions or nasal flaring. 15:53 Abdomen/GI: Soft, non-tender, with normal bowel sounds. No distension or tympany. No guarding or rebound. No evidence of tenderness throughout. Skin: Warm, dry with normal turgor. Normal color with no rashes, no lesions, and no evidence of cellulitis. MS/ Extremity: Pulses equal, no cyanosis. Neurovascular intact. Full, normal range of motion. 15:53 Back: pain, that is moderate, of the lumbar area. 15:53 Neuro: Orientation: is normal, Mentation: is normal, Motor: moves all fours, Sensation: is normal, no obvious gross deficits, Deep tendon reflexes are 2+ (normal) in the right Achilles and left Achilles, patient able to dorsi flex and plantar flex bilateral great toes FROM with 5/5 strength . Vital Signs: 15:43 BP 171 / 64; Pulse 84; Resp 16; Temp 98.4; Pulse Ox 95% ; Weight 83.01 kg; Height 5 ft. la1 4 in. (162.56 cm); 15:43 Body Mass Index 31.41 (83.01 kg, 162.56 cm) la1 MDM: 15:45 Patient medically screened. pm1 15:53 Data reviewed: vital signs. Data interpreted: Pulse oximetry: on room air is 95 %. pm1 Interpretation: normal. 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 Administered Medications: 16:05 Drug: fentaNYL (PF) 25 mcg Route: IM; Site: right deltoid; em 16:22 Follow up: Response: No adverse reaction; Pain is decreased em 16:05 Drug: Zofran 4 mg Route: PO; em 16:22 Follow up: Response: No adverse reaction em Disposition: 03/27/19 15:55 Discharged to Home. Impression: Other chronic pain. - Condition is Stable. - Discharge Instructions: Chronic Pain. - Medication Reconciliation Form, Thank You Letter, Antibiotic Education, Prescription Opioid Use form. - Follow up: Emergency Department; When: As needed; Reason: Worsening of condition. Follow up: Private Physician; When: 2 - 3 days; Reason: Recheck today's complaints, Continuance of care, Re-evaluation by your physician. - Problem is new. - Symptoms have improved. Signatures: Travis Krishnan, INSOLE DOUBLER INSOLE DOUBLER Osman Heard RN RN la1 Yoav Farfan, MECHANICAL MAINTENANCE INSTRUCTOR MECHANICAL MAINTENANCE INSTRUCTOR pm1 Corrections: (The following items were deleted from the chart) 16:22 15:55 03/27/2019 15:55 Discharged to Home. Impression: Other chronic pain. Condition is em Stable. Forms are Medication Reconciliation Form, Thank You Letter, Antibiotic Education, Prescription Opioid Use. Follow up: Emergency Department; When: As needed; Reason: Worsening of condition. Follow up: Private Physician; When: 2 - 3 days; Reason: Recheck today's complaints, Continuance of care, Re-evaluation by your physician. Problem is new. Symptoms have improved. pm1
--- NOTE | 2019-03-27 15:56 | ER ---
Nurse's Notes [facility] Name: Charlotte Ruvalcaba Age: 53 yrs Sex: Female : 1965 Arrival Date: 03/27/2019 Time: 15:38 Bed 20 Private MD: Diagnosis: Other chronic pain Presentation: 03/27 15:44 Presenting complaint: Patient states: I am having lower back pain for the last 1.5 la1 weeks. I have a FU in april with my spine doctor in the end of april. I had L4-L5 sx in 2017. Transition of care: patient was not received from another setting of care. Onset of symptoms was March 27, 2019. Risk Assessment: Do you want to hurt yourself or someone else? Patient reports no desire to harm self or others. Initial Sepsis Screen: Does the patient meet any 2 criteria? No. Patient's initial sepsis screen is negative. Does the patient have a suspected source of infection? No. Patient's initial sepsis screen is negative. Care prior to arrival: None. 15:44 Method Of Arrival: Ambulatory la1 15:44 Acuity: RASHAD 4 la1 Historical: - Allergies: 15:43 NKDA; la1 - PMHx: 15:43 Asthma; breast cancer; chronic pain, sees pain doctor; COPD; Diabetes - IDDM; Gout; la1 Hypertension; Hypothyroidism; - Immunization history:: Adult Immunizations up to date. - Social history:: Smoking status: Patient/guardian denies using tobacco. - Ebola Screening: : No symptoms or risks identified at this time. Screenin:55 Abuse screen: Denies threats or abuse. Nutritional screening: No deficits noted. em Tuberculosis screening: No symptoms or risk factors identified. Fall Risk None identified. Assessment: 16:00 General: Appears in no apparent distress. uncomfortable, Behavior is cooperative, em crying. Pain: Complains of pain in left low back and right low back Pain currently is 10 out of 10 on a pain scale. Pain began 1.5 week ago. Neuro: Level of Consciousness is awake, alert, obeys commands, Oriented to person, place, time, situation, Intact. Cardiovascular: Capillary refill < 3 seconds Patient's skin is warm and dry. Respiratory: Airway is patent Respiratory effort is even, unlabored, Respiratory pattern is regular, symmetrical. Derm: Skin is intact, is healthy with good turgor, Skin is pink, warm \T\ dry. Musculoskeletal: Capillary refill < 3 seconds. 17:40 Reassessment: I agree with the assessment made with Travis PALACIOS. lorenzo Vital Signs: 15:43 BP 171 / 64; Pulse 84; Resp 16; Temp 98.4; Pulse Ox 95% ; Weight 83.01 kg; Height 5 ft. la1 4 in. (162.56 cm); 15:43 Body Mass Index 31.41 (83.01 kg, 162.56 cm) la1 ED Course: 15:38 Patient arrived in ED. mr 15:43 Arm band placed on right wrist. la1 15:45 Triage completed. la1 15:45 [facility] pm1 15:45 Vinny Puga MD is Attending Physician. pm1 15:52 Travis Krishnan LVN is Primary Nurse. em 15:55 Patient has correct armband on for positive identification. Bed in low position. Call em light in reach. 15:55 No provider procedures requiring assistance completed. Patient did not have IV access em during this emergency room visit. Administered Medications: 16:05 Drug: fentaNYL (PF) 25 mcg Route: IM; Site: right deltoid; em 16:22 Follow up: Response: No adverse reaction; Pain is decreased em 16:05 Drug: Zofran 4 mg Route: PO; em 16:22 Follow up: Response: No adverse reaction em Outcome: 15:55 Discharge ordered by MD. pm1 16:21 Discharged to home ambulatory. em 16:21 Condition: good 16:21 Discharge instructions given to patient, Instructed on discharge instructions, follow up and referral plans. Demonstrated understanding of instructions, follow-up care. 16:22 Patient left the ED. em Signatures: Kameron Estes RN ALOK Sherine Rock mr EulogioTravis LVN LVN em Osman Ferguson RN RN la Yoav Farfan NP ESTHETICS INSTRUCTOR pm1
[2019-03-27] MEDS ORDERED: FENTANYL CITR 100 MCG/2 ML ONE (16:15)
[2019-03-27] MEDS ORDERED: ONDANSETRON 4 MG (ODT) TAB ONE (16:16)
[2019-03-27 16:29] VITALS: BP 171/64; TEMP 98.4; O2SAT 95
== END 2019-03-27 16:22 | disposition home or self-care (01) ==
LOC: ER 15:36
DX: G89.29 Other chronic pain (principal); M54.5 Low back pain; J45.909 Unspecified asthma, uncomplicated; J44.9 Chronic obstructive pulmonary disease, unspecified; E11.9 Type 2 diabetes mellitus without complications; I10 Essential (primary) hypertension; E03.9 Hypothyroidism, unspecified; M10.9 Gout, unspecified; Z79.4 Long term (current) use of insulin
CPT/HCPCS: 96372; 99283; J3010

== ENCOUNTER 2019-06-02 17:47 | Emergency (ER) | payer OTHER ==
[2019-06-02] MEDS ORDERED: NA CHLORIDE 0.9% 1,000 ML ONE ×2 (19:06→22:06)
[2019-06-02 19:15] LABS: Protime INR 1.16
[2019-06-02 19:17] LABS: Absolute Lymphocytes (CBC) 0.8 K/uL (0.7-4.9); Basophils % 0.4 % (0-1.3); Hematocrit 46.6 % (36.0-45.0); Lymphocytes % 5.3 % (15.3-44.8); MPV 9.7 fL (7.6-11.3); RBC Red Blood Cell Count 5.16 M/uL (3.86-4.86)
--- NOTE | 2019-06-02 19:26 | RAD REPORT ---
EXAM DESCRIPTION: RAD - Chest Single View - 06/02/2019 7:18 pm CLINICAL HISTORY: vomiting Chest pain. COMPARISON: <Comparisons> FINDINGS: Portable technique limits examination quality. The lungs are grossly clear. The heart is normal in size. No displaced fractures. IMPRESSION: No acute intrathoracic process suspected.
[2019-06-02] MEDS ORDERED: KETOROLAC 30 MG/ML INJ ONE (19:27)
[2019-06-02 19:45] LABS: ALT/SGPT 27 U/L (12-78); AST/SGOT 19 U/L (15-37); Alkaline Phosphatase 99 U/L (45-117); BUN Blood Urea Nitrogen 13 mg/dL (7-18); Bicarbonate 26 mmol/L (21-32); Bilirubin Direct 0.2 mg/dL (0-0.2); Bilirubin Total 0.6 mg/dL (0.2-1.0); Glucose Level 345 mg/dL (74-106); NT PRO-BNP 32 pg/mL (<125); Potassium 3.7 mmol/L (3.5-5.1); Protein, Total 8.1 g/dL (6.4-8.2); Sodium Level 133 mmol/L (136-145); Troponin (Emerg Dept Use Only) < 0.02 ng/mL (0.0-0.045)
[2019-06-02 19:53] LABS: Magnesium 1.4 mg/dL (1.8-2.4)
[2019-06-02] MEDS ORDERED: MAGNESIUM SULFATE 1 gm IVPB 1 GM/100 ML BAG IV ONE (20:10)
--- NOTE | 2019-06-02 20:32 | RAD REPORT ---
EXAM DESCRIPTION: CTAbdomen Pelvis W Contrast - 06/02/2019 8:23 pm CLINICAL HISTORY: Abdominal pain. ABD PAIN COMPARISON: Abdomen Pelvis W Contrast dated 07/25/2017; Abdomen Pelvis W Contrast dated 7; Abdomen Pelvis W Contrast dated 09/03/2016; Abdomen Pelvis W Contrast dated 04/09/2016 TECHNIQUE: Biphasic CT imaging of the abdomen and pelvis was performed with 100 ml non-ionic IV cont rast. All CT scans are performed using dose optimization technique as appropriate and may include automated exposure control or mA/KV adjustment according to patient size. FINDINGS: The lung bases are clear.Cholecystectomy. The liver, spleen, pancreas, adrenal glands and kidneys are within normal limits. No bowel obstruction, free air, free fluid or abscess. Appendectomy. No evidence of significant lym phadenopathy. Lumbar spine hardware is in place. IMPRESSION: No acute intra-abdominal or pelvic finding.
[2019-06-02] MEDS ORDERED: FENTANYL CITR 100 MCG/2 ML ONE (20:45)
[2019-06-02 21:10] LABS: Blood Morphology Comment NOT SEEN (NOT SEEN); Platelet Estimate ADEQ
[2019-06-02 22:08] LABS: Urine Blood NEGATIVE (NEG); Urine Glucose 2+ (NEG); Urine Protein TRACE (NEG); Urine Specific Gravity <1.005 (1.005-1.030)
[2019-06-02 22:23] LABS: Urine Bacteria <20 /HPF (<20); Urine Culture Reflex Order NOT NEEDED; Urine Mucus 1+ /HPF (NONE SEEN); Urine RBC <5 /HPF (NONE SEEN)
[2019-06-03 00:02] LABS: Absolute Lymphocytes (CBC) 1.3 K/uL (0.7-4.9); Basophils % 0.5 % (0-1.3); Hematocrit 40.5 % (36.0-45.0); Lymphocytes % 12.5 % (15.3-44.8); MPV 9.1 fL (7.6-11.3); RBC Red Blood Cell Count 4.46 M/uL (3.86-4.86)
[2019-06-03 00:11] LABS: BUN Blood Urea Nitrogen 13 mg/dL (7-18); Bicarbonate 27 mmol/L (21-32); Glucose Level 297 mg/dL (74-106); Potassium 3.6 mmol/L (3.5-5.1); Sodium Level 138 mmol/L (136-145)
--- NOTE | 2019-06-03 00:25 | ER ---
Nurse's Notes [facility] Name: Charlotte Ruvalcaba Age: 54 yrs Sex: Female : 1965 Arrival Date: 06/02/2019 Time: 17:49 Bed 20 Private MD: Diagnosis: Generalized abdominal pain;Nausea and vomiting;Diarrhea, unspecified;Hyperglycemia, unspecified Presentation: 06/02 17:50 Presenting complaint: EMS states: N/V/D and abdominal cramping since last night, also ph c/o chills, VSS, BGL 356. Transition of care: patient was not received from another setting of care. Onset of symptoms was June 02, 2019. Risk Assessment: Do you want to hurt yourself or someone else? Patient reports no desire to harm self or others. Initial Sepsis Screen: Does the patient meet any 2 criteria? No. Patient's initial sepsis screen is negative. Does the patient have a suspected source of infection? No. Patient's initial sepsis screen is negative. Care prior to arrival: Glucose check: 356. 17:50 Method Of Arrival: EMS: [facility] ph 17:50 Acuity: RASHAD 3 ph Triage Assessment: 17:56 GI: Reports. ph Historical: - Allergies: 17:54 NKDA; ph - PMHx: 17:54 Asthma; breast cancer; chronic pain, sees pain doctor; COPD; Diabetes - IDDM; Gout; ph Hypertension; Hypothyroidism; - Immunization history:: Adult Immunizations unknown. - Social history:: Smoking status: Patient/guardian denies using tobacco. - Ebola Screening: : No symptoms or risks identified at this time. Screenin:55 Abuse screen: Denies threats or abuse. Denies injuries from another. Nutritional ph screening: No deficits noted. Tuberculosis screening: No symptoms or risk factors identified. Fall Risk None identified. Assessment: 18:00 General: Appears in no apparent distress. uncomfortable, well groomed, Behavior is ph calm, cooperative, appropriate for age, Reports chills for. Pain: Complains of pain in abdomen. Neuro: Level of Consciousness is awake, alert, obeys commands, Oriented to person, place, time, situation, Reports dizziness, weakness all over. Cardiovascular: Capillary refill < 3 seconds in bilateral fingers Patient's skin is warm and dry. Respiratory: Airway is patent Respiratory effort is even, unlabored, Respiratory pattern is regular, symmetrical. GI: Abdomen is round Abd is soft X 4 quads. GI: Reports lower abdominal pain, upper abdominal pain, cramping, diarrhea, nausea, vomiting. Derm: Skin is intact, Skin is pink, warm \T\ dry. Musculoskeletal: Circulation, motion, and sensation intact. Range of motion: intact in all extremities. 19:00 General: Appears in no apparent distress. Behavior is calm, cooperative, appropriate ea for age. Pain: Complains of pain in abdomen. Neuro: Level of Consciousness is awake, alert, obeys commands, Oriented to person, place, time, situation. Cardiovascular: Patient's skin is warm and dry. Respiratory: Airway is patent Respiratory effort is even, unlabored, Respiratory pattern is regular, symmetrical. GI: Abdomen is round Reports lower abdominal pain, upper abdominal pain, cramping, diarrhea, nausea. Derm: Skin is pink, warm \T\ dry. Musculoskeletal: Circulation, motion, and sensation intact. 20:54 Reassessment: Patient and/or family updated on plan of care and expected duration. Pain ea level reassessed. Patient is alert, oriented x 3, equal unlabored respirations, skin warm/dry/pink. 21:00 Reassessment: Patient and/or family updated on plan of care and expected duration. Pain ea level reassessed. Patient is alert, oriented x 3, equal unlabored respirations, skin warm/dry/pink. 23:07 Reassessment: Patient and/or family updated on plan of care and expected duration. Pain ea level reassessed. Patient is alert, oriented x 3, equal unlabored respirations, skin warm/dry/pink. Awaiting on liter of fluid to complete. 06/03 00:50 Reassessment: Patient and/or family updated on plan of care and expected duration. Pain ea level reassessed. Patient is alert, oriented x 3, equal unlabored respirations, skin warm/dry/pink. Discharge instruction given to patient, left ED ambulatory tolerating well. Vital Signs: 06/02 17:53 BP 132 / 64; Pulse 102; Resp 20; Temp 98.7; Pulse Ox 100% on R/A; Weight 81.19 kg; ph Height 5 ft. 4 in. (162.56 cm); Pain 10/10; 18:45 BP 127 / 66; Pulse 110; Resp 18; Pulse Ox 99% on R/A; ph 19:00 BP 121 / 68; Pulse 102; Resp 19; Temp 97.8; Pulse Ox 97% ; ea 20:00 BP 137 / 70; Pulse 101; Resp 18; Pulse Ox 98% on R/A; ea 22:29 BP 128 / 56; Pulse 89; Resp 18; Pulse Ox 100% on R/A; ea 23:13 BP 137 / 56; Pulse 87; Resp 18; Pulse Ox 97% on R/A; ea 17:53 Body Mass Index 30.72 (81.19 kg, 162.56 cm) ph ED Course: 17:49 Patient arrived in ED. ph 17:52 Triage completed. ph 17:55 Arm band placed on Patient placed in an exam room, on a stretcher, on pulse oximetry. ph 17:56 Patient has correct armband on for positive identification. Bed in low position. Call ph light in reach. Side rails up X 1. Door closed. Noise minimized. Warm blanket given. Pillow given. Head of bed. 17:57 Rebecca Gleason, RN is Primary Nurse. ph 18:18 Inserted saline lock: 20 gauge in left antecubital area, using aseptic technique. Blood dh3 collected. 18:41 Ashley Vazquez FNP-C [facility]. snw 18:41 Vinny Puga MD is Attending Physician. snw 18:55 Initial lab(s) drawn, by ia, sent to lab. First set of blood cultures drawn by ED staff.dh3 19:18 X-ray completed. Portable x-ray completed in exam room. Patient tolerated procedure mh1 well. 19:19 XRAY Chest (1 view) In Process Unspecified. EDMS 19:42 Radiology exam delayed due to lab results not completed at this time. (BUN/Creatinine). vm2 20:24 CT Abd/Pelvis - IV Contrast Only In Process Unspecified. EDMS 09 00:45 IV discontinued, intact, bleeding controlled, No redness/swelling at site. Pressure ea dressing applied. 01:01 No provider procedures requiring assistance completed. ea Administered Medications: 06/02 19:00 Drug: NS 0.9% 1000 ml Route: IV; Rate: 125 ml/hr; Site: left antecubital; ph 19:30 Drug: TORadol - Ketorolac 15 mg Route: IVP; Site: left antecubital; ph 20:30 Follow up: Response: No adverse reaction; Pain is decreased ea 20:12 Drug: Magnesium Sulfate 1 grams Route: IVPB; Infused Over: 1 hrs; Site: left ea antecubital; 20:45 Drug: fentaNYL (PF) 25 mcg Route: IVP; Site: left antecubital; ea 21:24 Follow up: Response: No adverse reaction; Pain is decreased; RASS: Alert and Calm (0) ea 22:07 Drug: NS 0.9% 1000 ml Route: IV; Rate: 1 bolus; Site: left antecubital; ea 23:43 Follow up: Response: No adverse reaction; IV Status: Completed infusion; IV Intake: ea 1000ml Intake: 23:43 IV: 1000ml; Total: 1000ml. ea Outcome: 06/03 00:22 Discharge ordered by . snw 00:55 Condition: stable ea 00:55 Discharge instructions given to patient, Instructed on discharge instructions, follow up and referral plans. medication usage, Demonstrated understanding of instructions, follow-up care, medications, Prescriptions given X 2. 00:55 Discharged to home ambulatory. ea 01:02 Patient left the ED. ea Signatures: Dispatcher [employer] EDMS Ashley Vazquez, MANUFACTURING PLANT MANAGER-C MANUFACTURING PLANT MANAGER-Csnw Pat Wong 1 Rebecca Gleason, ALOK RN Elma Saldana [facility] Lisa Pettit 3 Brittany Akers RN RN ea Corrections: (The following items were deleted from the chart) 06/02 20:53 19:00 BP 137 / 70; Pulse 101bpm; Resp 18bpm; Pulse Ox 98% RA; ea ea
--- NOTE | 2019-06-03 00:28 | EDPHYS ---
Physician Documentation [facility] Name: Charlotte Ruvalcaba Age: 54 yrs Sex: Female : 1965 Arrival Date: 06/02/2019 Time: 17:49 Bed 20 Private MD: ED Physician Vinny Puga HPI: 06/02 19:13 This 54 yrs old Black Female presents to ER via EMS with complaints of snw Nausea/Vomiting/Diarrhea. 19:13 The patient presents to the emergency department with nausea, vomiting, diarrhea. snw Onset: The symptoms/episode began/occurred suddenly, 3 day(s) ago, and became persistent. Possible causes: unknown. Associated signs and symptoms: Pertinent negatives: dysuria, fever. Severity of symptoms: At their worst the symptoms were moderate. It is unknown whether or not the patient has had similar symptoms in the past. The patient has not recently seen a physician. Historical: - Allergies: 17:54 NKDA; ph - PMHx: 17:54 Asthma; breast cancer; chronic pain, sees pain doctor; COPD; Diabetes - IDDM; Gout; ph Hypertension; Hypothyroidism; - Immunization history:: Adult Immunizations unknown. - Social history:: Smoking status: Patient/guardian denies using tobacco. - Ebola Screening: : No symptoms or risks identified at this time. ROS: 19:13 Constitutional: Negative for fever, chills, and weight loss, Eyes: Negative for injury, snw pain, redness, and discharge, ENT: Negative for injury, pain, and discharge, Neck: Negative for injury, pain, and swelling, Cardiovascular: Negative for chest pain, palpitations, and edema, Respiratory: Negative for shortness of breath, cough, wheezing, and pleuritic chest pain, Back: Negative for injury and pain, : Negative for injury, bleeding, discharge, and swelling, MS/Extremity: Negative for injury and deformity, Skin: Negative for injury, rash, and discoloration, Neuro: Negative for headache, weakness, numbness, tingling, and seizure. 19:13 Abdomen/GI: Positive for abdominal pain, nausea, vomiting, and diarrhea. Exam: 19:05 Constitutional: This is a well developed, well nourished patient who is awake, alert, snw and in no acute distress. Head/Face: Normocephalic, atraumatic. Eyes: Pupils equal round and reactive to light, extra-ocular motions intact. Lids and lashes normal. Conjunctiva and sclera are non-icteric and not injected. Cornea within normal limits. Periorbital areas with no swelling, redness, or edema. ENT: Nares patent. No nasal discharge, no septal abnormalities noted. Tympanic membranes are normal and external auditory canals are clear. Oropharynx with no redness, swelling, or masses, exudates, or evidence of obstruction, uvula midline. Mucous membranes moist. Neck: Trachea midline, no thyromegaly or masses palpated, and no cervical lymphadenopathy. Supple, full range of motion without nuchal rigidity, or vertebral point tenderness. No Meningismus. Chest/axilla: Normal chest wall appearance and motion. Nontender with no deformity. No lesions are appreciated. Cardiovascular: Regular rate and rhythm with a normal S1 and S2. No gallops, murmurs, or rubs. Normal PMI, no JVD. No pulse deficits. Respiratory: Lungs have equal breath sounds bilaterally, clear to auscultation and percussion. No rales, rhonchi or wheezes noted. No increased work of breathing, no retractions or nasal flaring. Back: No spinal tenderness. No costovertebral tenderness. Full range of motion. Skin: Warm, dry with normal turgor. Normal color with no rashes, no lesions, and no evidence of cellulitis. MS/ Extremity: Pulses equal, no cyanosis. Neurovascular intact. Full, normal range of motion. Neuro: Awake and alert, GCS 15, oriented to person, place, time, and situation. Cranial nerves II-XII grossly intact. Motor strength 5/5 in all extremities. Sensory grossly intact. Cerebellar exam normal. Normal gait. Psych: Awake, alert, with orientation to person, place and time. Behavior, mood, and affect are within normal limits. 19:05 Abdomen/GI: Inspection: abdomen appears normal, Bowel sounds: normal, Palpation: mild abdominal tenderness, moderate abdominal tenderness, in all quadrants. Vital Signs: 17:53 BP 132 / 64; Pulse 102; Resp 20; Temp 98.7; Pulse Ox 100% on R/A; Weight 81.19 kg; ph Height 5 ft. 4 in. (162.56 cm); Pain 10/10; 18:45 BP 127 / 66; Pulse 110; Resp 18; Pulse Ox 99% on R/A; ph 19:00 BP 121 / 68; Pulse 102; Resp 19; Temp 97.8; Pulse Ox 97% ; ea 20:00 BP 137 / 70; Pulse 101; Resp 18; Pulse Ox 98% on R/A; ea 22:29 BP 128 / 56; Pulse 89; Resp 18; Pulse Ox 100% on R/A; ea 23:13 BP 137 / 56; Pulse 87; Resp 18; Pulse Ox 97% on R/A; ea 17:53 Body Mass Index 30.72 (81.19 kg, 162.56 cm) ph MDM: 18:43 Patient medically screened. snw 06/03 00:34 Data reviewed: vital signs, nurses notes. Data interpreted: Pulse oximetry: on room air snw is 97 %. Interpretation: normal. Counseling: I had a detailed discussion with the patient and/or guardian regarding: the historical points, exam findings, and any diagnostic results supporting the discharge/admit diagnosis, lab results, radiology results, the need for outpatient follow up, for definitive care, to return to the emergency department if symptoms worsen or persist or if there are any questions or concerns that arise at home. Special discussion: Based on the patient's Hx, exam, and Dx evaluation, there is no indication for emergent surgery or inpatient Tx. It is understood by the patient/guardian that if the Sx's persist or worsen they need to return immediately for re-evaluation. Based on the history and exam findings, there is no indication for further emergent testing or inpatient evaluation. I discussed with the patient/guardian the need to see the primary care provider for further evaluation of the symptoms. 06/02 18:42 Order name: Basic Metabolic Panel; Complete Time: 19:56 snw 06/02 18:42 Order name: CBC with Diff; Complete Time: 21:13 snw 06/02 18:42 Order name: LFT's; Complete Time: 19:56 snw 06/02 18:42 Order name: Magnesium; Complete Time: 19:56 snw 06/02 18:42 Order name: NT PRO-BNP; Complete Time: 19:56 snw 06/02 18:42 Order name: PT-INR; Complete Time: 19:56 snw 06/02 18:42 Order name: Troponin (emerg Dept Use Only); Complete Time: 19:56 snw 06/02 18:42 Order name: Blood Culture Adult (2) snw 06/02 18:42 Order name: Lactate; Complete Time: 19:56 snw 06/02 18:42 Order name: Procalcitonin; Complete Time: 20:09 snw 06/02 20:38 Order name: Manual Differential; Complete Time: 21:13 EDMS 06/02 21:16 Order name: Urine Microscopic Only; Complete Time: 22:25 snw 06/02 21:58 Order name: Urine Dipstick--Ancillary (enter results); Complete Time: 22:18 ar5 06/02 18:42 Order name: XRAY Chest (1 view); Complete Time: 19:56 snw 06/02 18:42 Order name: EKG; Complete Time: 18:45 snw 06/02 18:42 Order name: Cardiac monitoring; Complete Time: 19:26 snw 06/02 18:42 Order name: EKG - Nurse/Tech; Complete Time: 19:26 snw 06/02 18:42 Order name: IV Saline Lock; Complete Time: 18:54 snw 06/02 18:42 Order name: Labs collected and sent; Complete Time: 18:54 w 06/02 18:42 Order name: O2 Per Protocol; Complete Time: 18:54 snw 06/02 19:14 Order name: CT Abd/Pelvis - IV Contrast Only; Complete Time: 20:55 w 06/02 23:12 Order name: CBC with Diff; Complete Time: 00:13 06/02 23:12 Order name: Chem 7; Complete Time: 00:13 ea 06/02 18:42 Order name: O2 Sat Monitoring; Complete Time: 18:54 snw 06/02 21:16 Order name: Urine Dipstick-Ancillary (obtain specimen); Complete Time: 21:53 w 06/02 21:55 Order name: Misc. Order: post 1L bolus, recheck cbc, chem 7; Complete Time: 23:42 snw Administered Medications: 06/02 19:00 Drug: NS 0.9% 1000 ml Route: IV; Rate: 125 ml/hr; Site: left antecubital; ph 19:30 Drug: TORadol - Ketorolac 15 mg Route: IVP; Site: left antecubital; ph 20:30 Follow up: Response: No adverse reaction; Pain is decreased ea 20:12 Drug: Magnesium Sulfate 1 grams Route: IVPB; Infused Over: 1 hrs; Site: left ea antecubital; 20:45 Drug: fentaNYL (PF) 25 mcg Route: IVP; Site: left antecubital; ea 21:24 Follow up: Response: No adverse reaction; Pain is decreased; RASS: Alert and Calm (0) ea 22:07 Drug: NS 0.9% 1000 ml Route: IV; Rate: 1 bolus; Site: left antecubital; ea 23:43 Follow up: Response: No adverse reaction; IV Status: Completed infusion; IV Intake: ea 1000ml Disposition: 06/03/19 00:22 Discharged to Home. Impression: Generalized abdominal pain, Nausea and vomiting, Diarrhea, unspecified, Hyperglycemia, unspecified. - Condition is Stable. - Discharge Instructions: Food Choices to Help Relieve Diarrhea, Adult, Diabetes and Sick Day Management, Diarrhea, Adult, Hyperglycemia, Nausea and Vomiting, Adult, Blood Glucose Monitoring, Adult, Rehydration, Adult. - Prescriptions for Bentyl 20 mg Oral Tablet - take 1 tablet by ORAL route every 6 hours As needed; 20 tablet. Zofran 4 mg Oral Tablet - take 1 tablet by ORAL route every 12 hours As needed; 20 tablet. - Work release form, Medication Reconciliation Form, Thank You Letter, Antibiotic Education, Prescription Opioid Use form. - Follow up: Private Physician; When: 2 - 3 days; Reason: Recheck today's complaints, Continuance of care, Re-evaluation by your physician. Follow up: Emergency Department; When: As needed; Reason: Worsening of condition. Addendum: 06/07/2019 14:47 Co-signature as Attending Physician, Vinny Puga MD. g s Signatures: Dispatcher [facility] Ashley Vazquez, KAREN-C ROTARY PEEL OVEN TENDER-Csnw Rebecca Gleason RN Brittany Mccabe ph, RN RN ea Starr, Gregory, MD MD gs Corrections: (The following items were deleted from the chart) 06/02 21:25 21:16 Abdomen Limited+[id number].RAD.[id number] ordered. [facility] 06/03 01:02 00:22 06/03/2019 00:22 Discharged to Home. Impression: Generalized abdominal pain; ea Nausea and vomiting; Diarrhea, unspecified; Hyperglycemia, unspecified. Condition is Stable. Forms are Medication Reconciliation Form, Thank You Letter, Antibiotic Education, Prescription Opioid Use. Follow up: Private Physician; When: 2 - 3 days; Reason: Recheck today's complaints, Continuance of care, Re-evaluation by your physician. Follow up: Emergency Department; When: As needed; Reason: Worsening of condition. snw
[2019-06-03 02:36] VITALS: TEMP 97.8
[2019-06-03 02:51] VITALS: O2SAT 100
[2019-06-03 02:54] VITALS: BP 120/78
--- NOTE | 2019-06-03 08:38 | EKG ---
Test Date: 2019-06-02 Test Time: 19:16:24 [employer] [employer] Baker: WILFREDO MEASUREMENT RESULTS: Intervals: Rate: 106 NH: 124 QRSD: 78 QT: 344 QTc: 456 [place]: P: 73 NH: 124 QRS: 33 T: 66 INTERPRETIVE STATEMENTS: Sinus tachycardia Right atrial enlargement Borderline ECG Compared to ECG 06/11/2018 16:22:26 Sinus rhythm no longer present Myocardial infarct finding no longer present Electronically Signed On 06-03-19 08:37:47 CDT by Ike Yun
== END 2019-06-03 01:02 | disposition home or self-care (01) ==
LOC: ER 17:47
DX: R11.2 Nausea with vomiting, unspecified (principal); E11.65 Type 2 diabetes mellitus with hyperglycemia; R19.7 Diarrhea, unspecified; I10 Essential (primary) hypertension; Z85.3 Personal history of malignant neoplasm of breast
CPT/HCPCS: 96361; 93005; 87040 ×2; 85025 ×2; 80048 ×2; 36415; 83735; 85610; 80076; 83605; 84484; 84145; 83880; 74177; 71045; 96375; 96374; 99284; Q9967; J3010; J3475; J7030 ×2; 81003; 81015

== ENCOUNTER 2019-07-10 11:31 | Emergency (ER) | payer OTHER ==
[2019-07-10] MEDS ORDERED: ONDANSETRON 4 MG (ODT) TAB ONE (12:00)
[2019-07-10] MEDS ORDERED: FENTANYL CITR 100 MCG/2 ML ONE (12:01)
--- NOTE | 2019-07-10 12:47 | ER ---
Nurse's Notes [facility] Name: Charlotte Ruvalcaba Age: 54 yrs Sex: Female : 1965 Arrival Date: 07/10/2019 Time: 11:34 Bed 20 Private MD: Diagnosis: Low back pain;Muscle spasm of back Presentation: 07/10 11:35 Presenting complaint: Patient states: I have chronic back pain and see pain mgmt but la1 last week the pain got worse and I cant take it. Transition of care: patient was not received from another setting of care. Onset of symptoms was July 10, 2019. Risk Assessment: Do you want to hurt yourself or someone else? Patient reports no desire to harm self or others. Initial Sepsis Screen: Does the patient meet any 2 criteria? No. Patient's initial sepsis screen is negative. Does the patient have a suspected source of infection? No. Patient's initial sepsis screen is negative. Care prior to arrival: None. 11:35 Method Of Arrival: Ambulatory la1 11:35 Acuity: RASHAD 3 la1 Historical: - Allergies: 11:35 NKDA; la1 - PMHx: 11:35 Asthma; breast cancer; chronic pain, sees pain doctor; COPD; Diabetes - IDDM; Gout; la1 Hypertension; Hypothyroidism; - Immunization history:: Adult Immunizations up to date. - Social history:: Smoking status: Patient/guardian denies using tobacco. - Ebola Screening: : No symptoms or risks identified at this time. Screenin:50 Abuse screen: Denies threats or abuse. Nutritional screening: No deficits noted. em Tuberculosis screening: No symptoms or risk factors identified. Fall Risk None identified. Assessment: 11:50 General: Appears in no apparent distress. uncomfortable, Behavior is calm, cooperative, em Denies fever. Pain: Complains of pain in lumbar area Pain currently is 10 out of 10 on a pain scale. Pain began 1 week ago. Neuro: Level of Consciousness is awake, alert, obeys commands, Oriented to person, place, time, situation, Appropriate for age Moves all extremities. Gait is steady, Intact. Cardiovascular: Capillary refill < 3 seconds Patient's skin is warm and dry. Respiratory: Airway is patent Respiratory effort is even, unlabored, Respiratory pattern is regular, symmetrical. GI: Patient currently denies nausea, vomiting. Derm: Skin is intact, is healthy with good turgor, Skin is pink, warm \T\ dry. Musculoskeletal: Capillary refill < 3 seconds, Range of motion: intact in all extremities. 13:29 Reassessment: Patient appears in no apparent distress at this time. Patient and/or em family updated on plan of care and expected duration. Pain level reassessed. Patient is alert, oriented x 3, equal unlabored respirations, skin warm/dry/pink. Patient states feeling better. Vital Signs: 11:37 Pulse 84; Resp 16; Temp 97.8; Pulse Ox 98% on R/A; Weight 78.93 kg; Height 5 ft. 4 in. la1 (162.56 cm); 11:37 BP 153 / 59; la1 13:29 BP 149 / 71; Pulse 71; Pulse Ox 99% on R/A; Pain 6/10; em 11:37 Body Mass Index 29.87 (78.93 kg, 162.56 cm) la1 ED Course: 11:34 Patient arrived in ED. as 11:36 Triage completed. la1 11:36 Arm band placed on left wrist. la1 11:39 Travis Krishnan LVN is Primary Nurse. em 11:40 Yoav Farfan NP is PHCP. pm1 11:40 Spenser Ruvalcaba MD is Attending Physician. pm1 11:50 Patient has correct armband on for positive identification. Placed in gown. Bed in low em position. Call light in reach. Pulse ox on. NIBP on. 13:28 No provider procedures requiring assistance completed. Patient did not have IV access em during this emergency room visit. Administered Medications: 12:02 Drug: Zofran 4 mg Route: PO; em 12:12 Follow up: Response: No adverse reaction em 12:12 Drug: fentaNYL (PF) 50 mcg Route: IM; Site: left deltoid; em 13:03 Follow up: Response: No adverse reaction; Pain is decreased em 13:10 Not Given (Other Intervention Used): Orphenadrine 100 mg PO once la1 13:27 Drug: Lidoderm 5 % (700 mg/patch) 1 patches Route: Topical; Site: affected area; em Outcome: 12:46 Discharge ordered by . pm1 13:28 Discharged to home ambulatory. em 13:28 Condition: good 13:28 Discharge instructions given to patient, Instructed on discharge instructions, follow up and referral plans. medication usage, Demonstrated understanding of instructions, follow-up care, medications, Prescriptions given X 1. 13:30 Patient left the ED. em Signatures: Travis Krishnan, SENIOR GAMEMASTER SENIOR GAMEMASTER Ioana Chance Lee RN RN la1 Yoav Farfan, QUANTOMETER OPERATOR QUANTOMETER OPERATOR pm1
--- NOTE | 2019-07-10 12:47 | EDPHYS ---
Physician Documentation [facility] Name: Charlotte Ruvalcaba Age: 54 yrs Sex: Female : 1965 Arrival Date: 07/10/2019 Time: 11:34 Bed 20 Private MD: ED Physician Spenser Ruvalcaba HPI: 07/10 11:59 This 54 yrs old Black Female presents to ER via Ambulatory with complaints of Back Pain.pm1 11:59 The patient presents with pain and spasm, right side of lower back for the past 1 week. pm1 The pain does not radiate. Associated signs and symptoms: Pertinent negatives: dysuria, fever, nausea, numbness, tingling, vomiting, weakness. Severity of symptoms: in the emergency department the symptoms are actually worse. history of chronic back pain managed by pain management. The patient has not recently seen a physician. Historical: - Allergies: 11:35 NKDA; la1 - PMHx: 11:35 Asthma; breast cancer; chronic pain, sees pain doctor; COPD; Diabetes - IDDM; Gout; la1 Hypertension; Hypothyroidism; - Immunization history:: Adult Immunizations up to date. - Social history:: Smoking status: Patient/guardian denies using tobacco. - Ebola Screening: : No symptoms or risks identified at this time. ROS: 11:59 Constitutional: Negative for fever, chills, and weight loss, Cardiovascular: Negative pm1 for chest pain, palpitations, and edema, Respiratory: Negative for shortness of breath, cough, wheezing, and pleuritic chest pain, Abdomen/GI: Negative for abdominal pain, nausea, vomiting, diarrhea, and constipation. 11:59 : Negative for injury, bleeding, discharge, and swelling, MS/Extremity: Negative for injury and deformity, Skin: Negative for injury, rash, and discoloration. 11:59 Neuro: Negative for headache, weakness, numbness, tingling, and seizure. 11:59 Back: Positive for of the right low back. Exam: 11:59 Constitutional: This is a well developed, well nourished patient who is awake, alert, pm1 and in no acute distress. Head/Face: Normocephalic, atraumatic. Neck: Trachea midline, no thyromegaly or masses palpated, and no cervical lymphadenopathy. Supple, full range of motion without nuchal rigidity, or vertebral point tenderness. No Meningismus. Chest/axilla: Normal chest wall appearance and motion. Nontender with no deformity. No lesions are appreciated. Cardiovascular: Regular rate and rhythm with a normal S1 and S2. No gallops, murmurs, or rubs. Normal PMI, no JVD. No pulse deficits. Respiratory: Lungs have equal breath sounds bilaterally, clear to auscultation and percussion. No rales, rhonchi or wheezes noted. No increased work of breathing, no retractions or nasal flaring. Abdomen/GI: Soft, non-tender, with normal bowel sounds. No distension or tympany. No guarding or rebound. No evidence of tenderness throughout. 11:59 Skin: Warm, dry with normal turgor. Normal color with no rashes, no lesions, and no evidence of cellulitis. MS/ Extremity: Pulses equal, no cyanosis. Neurovascular intact. Full, normal range of motion. 11:59 Back: normal spinal alignment noted, vertebral tenderness, is not appreciated, muscle spasm, is appreciated in the right low back. 11:59 Neuro: Orientation: is normal, Motor: is normal, moves all fours, Sensation: is normal, no obvious gross deficits. Vital Signs: 11:37 Pulse 84; Resp 16; Temp 97.8; Pulse Ox 98% on R/A; Weight 78.93 kg; Height 5 ft. 4 in. la1 (162.56 cm); 11:37 BP 153 / 59; la1 13:29 BP 149 / 71; Pulse 71; Pulse Ox 99% on R/A; Pain 6/10; em 11:37 Body Mass Index 29.87 (78.93 kg, 162.56 cm) la1 MDM: 11:40 Patient medically screened. pm1 11:59 Data reviewed: vital signs. Data interpreted: Pulse oximetry: on room air is 98 %. pm1 Interpretation: normal. 12:45 Counseling: I had a detailed discussion with the patient and/or guardian regarding: the pm1 historical points, exam findings, and any diagnostic results supporting the discharge/admit diagnosis, lab results, the need for outpatient follow up, to return to the emergency department if symptoms worsen or persist or if there are any questions or concerns that arise at home. 07/10 12:01 Order name: Urine Dipstick--Ancillary (enter results); Complete Time: 13:25 ms 07/10 11:54 Order name: Urine Dipstick-Ancillary (obtain specimen); Complete Time: 12:02 pm1 Administered Medications: 12:02 Drug: Zofran 4 mg Route: PO; em 12:12 Follow up: Response: No adverse reaction em 12:12 Drug: fentaNYL (PF) 50 mcg Route: IM; Site: left deltoid; em 13:03 Follow up: Response: No adverse reaction; Pain is decreased em 13:10 Not Given (Other Intervention Used): Orphenadrine 100 mg PO once la1 13:27 Drug: Lidoderm 5 % (700 mg/patch) 1 patches Route: Topical; Site: affected area; em Disposition: 13:52 Co-signature as Attending Physician, Spenser Ruvalcaba MD. Chart complete. rn Disposition: 07/10/19 12:46 Discharged to Home. Impression: Low back pain, Muscle spasm of back. - Condition is Stable. - Discharge Instructions: Back Pain, Adult, Muscle Cramps and Spasms. - Prescriptions for orphenadrine citrate 100 mg Oral Tablet Sustained Release - take 1 tablet by ORAL route 2 times per day As needed; 20 tablet. - Medication Reconciliation Form, Thank You Letter, Antibiotic Education, Prescription Opioid Use form. - Follow up: Emergency Department; When: As needed; Reason: Worsening of condition. Follow up: Private Physician; When: 2 - 3 days; Reason: Recheck today's complaints, Continuance of care, Re-evaluation by your physician. - Problem is new. - Symptoms have improved. Signatures: Dispatcher [employer] EDIL Travis Krishnan, LAMPS TESTER AND INSPECTOR LAMPS TESTER AND INSPECTOR Spenser Hoff MD MD rn Attema, Lee, RN RN la1 Yoav Farfan, PHIL WINDOW SHADE ESTIMATOR pm1 Corrections: (The following items were deleted from the chart) 13:30 12:46 07/10/2019 12:46 Discharged to Home. Impression: Low back pain; Muscle spasm of em back. Condition is Stable. Forms are Medication Reconciliation Form, Thank You Letter, Antibiotic Education, Prescription Opioid Use. Follow up: Emergency Department; When: As needed; Reason: Worsening of condition. Follow up: Private Physician; When: 2 - 3 days; Reason: Recheck today's complaints, Continuance of care, Re-evaluation by your physician. Problem is new. Symptoms have improved. pm1
[2019-07-10 13:00] LABS: Urine Blood NEGATIVE (NEG); Urine Glucose 2+ (NEG); Urine Protein NEGATIVE (NEG); Urine Specific Gravity 1.015 (1.005-1.030)
[2019-07-10] MEDS ORDERED: LIDOCAINE 4% PATCH ONE (13:19)
[2019-07-10 13:47] VITALS: TEMP 97.8
[2019-07-10 13:49] VITALS: BP 149/71; O2SAT 99
== END 2019-07-10 13:30 | disposition home or self-care (01) ==
LOC: ER 11:31
DX: M54.5 Low back pain (principal); M62.830 Muscle spasm of back
CPT/HCPCS: 81003; 96372; 99283; J3010

== ENCOUNTER 2019-10-11 16:09 | Observation (INO) | payer OTHER ==
--- OUTSIDE RECORDS SUMMARY | 2019-10-11 16:11 | XMS REPORT ---
:1965 [facility] Address [address] [place] [address] Care Team Providers Name Role Phone Unavailable Unavailable Unavailable Problems This patient has no known problems. Allergies, Adverse Reactions, Alerts This patient has no known allergies or adverse reactions. Medications This patient has no known medications.
--- OUTSIDE RECORDS SUMMARY | 2019-10-11 16:12 | XMS REPORT ---
:1965 Author Organization [employer] Care Team Providers Name Role Phone Tawana Ramirez Provider Role Unavailable Allergies No Known Allergies Problems Problem Type Condition Code Onset Dates Condition Status Problem Diabetes E11.9 Active Problem Essential hypertension I10 Active Problem Sinus problem J34.9 Active Problem Depression with anxiety F41.8 Active Problem Asthma J45.909 Active Problem Chronic pain syndrome G89.4 Active Problem Asthma, unspecified asthma J45.909 Active severity, unspecified whether complicated, unspecified whether persistent Problem Uncontrolled type 2 diabetes E11.65 Active mellitus with hyperglycemia Problem Sore throat J02.9 Active Problem Itching L29.9 Active Problem Acquired hypothyroidism E03.9 Active Problem Polyarthralgia M25.50 Active Problem Shortness of breath R06.02 Active Problem Anxiety F41.9 Active Problem Exposure to mold Z77.120 Active Problem Non-intractable vomiting with R11.2 Active nausea, unspecified vomiting type Problem Chest tightness R07.89 Active Problem Wheezing R06.2 Active Problem Hyperlipidemia, unspecified E78.5 Active hyperlipidemia type Problem Gastroesophageal reflux disease, K21.9 Active esophagitis presence not specified Problem High blood pressure I10 Active Problem Abnormal urine odor R82.90 Active Problem Swelling R60.9 Active Problem High cholesterol E78.00 Active Problem Chronic obstructive pulmonary J44.9 Active disease, unspecified COPD type Problem Hoarseness R49.0 Active Medications No Known Medications Results No Known Results Summary Purpose [employer] Submission
--- OUTSIDE RECORDS SUMMARY | 2019-10-11 16:12 | XMS REPORT ---
:1965 Author Organization [employer] Care Team Providers Name Role Phone Tawana Ramirez Provider Role Unavailable Allergies No Known Allergies Problems Problem Type Condition Code Onset Dates Condition Status Problem Uncontrolled type 2 diabetes E11.65 Active mellitus with hyperglycemia Problem Asthma, unspecified asthma J45.909 Active severity, unspecified whether complicated, unspecified whether persistent Problem Depression with anxiety F41.8 Active Problem Chronic pain syndrome G89.4 Active Problem Polyarthralgia M25.50 Active Problem High cholesterol E78.00 Active Problem Sinus problem J34.9 Active Problem Muscle cramping R25.2 Active Problem Right leg pain M79.604 Active Problem High blood pressure I10 Active Problem Acute right-sided thoracic back M54.6 Active pain Problem Low back pain M54.5 Active Problem Other chronic pain G89.29 Active Problem Itching L29.9 Active Problem Chest tightness R07.89 Active Problem Gastroesophageal reflux disease, K21.9 Active esophagitis presence not specified Problem Hyperlipidemia, unspecified E78.5 Active hyperlipidemia type Problem Shortness of breath R06.02 Active Problem Abnormal urine odor R82.90 Active Problem Exposure to mold Z77.120 Active Problem Non-intractable vomiting with R11.2 Active nausea, unspecified vomiting type Problem Sore throat J02.9 Active Problem Wheezing R06.2 Active Problem Swelling R60.9 Active Problem Diabetes E11.9 Active Problem Chronic obstructive pulmonary J44.9 Active disease, unspecified COPD type Problem Hoarseness R49.0 Active Problem Anxiety F41.9 Active Problem Acquired hypothyroidism E03.9 Active Problem Essential hypertension I10 Active Problem Asthma J45.909 Active Medications No Known Medications Results No Known Results Summary Purpose [employer]ClinicalWorks Submission
--- OUTSIDE RECORDS SUMMARY | 2019-10-11 16:13 | XMS REPORT ---
:1965 [facility] Team Providers Name Role Phone Tawana Ramirez Provider Role Unavailable Allergies, Adverse Reactions, Alerts Substance Reaction Event Type N.K.D.A. Info Not Available Non Drug Allergy Problems Problem Type Condition Code Onset Dates Condition Status Assessment Low back pain M54.5 Active Assessment Other chronic pain G89.29 Active Problem Uncontrolled type 2 diabetes E11.65 [...] throat J02.9 Active Problem Wheezing R06.2 Active Assessment Right leg pain M79.604 Active Problem Swelling R60.9 Active Assessment Acute right-sided thoracic back M54.6 Active pain Problem Diabetes E11.9 Active Assessment Follow-up exam Z09 Active Problem Chronic obstructive pulmonary J44.9 Active disease, unspecified COPD type Assessment Muscle cramping R25.2 Active Problem Hoarseness R49.0 Active Problem Anxiety F41.9 Active Problem Acquired hypothyroidism E03.9 Active Problem Essential hypertension I10 Active Problem Asthma J45.909 Active Medications Medication Code Code Instructions Start End Status Dosage System Date Date Victoza [facility] [id number] 18 MG/3ML Active as directed Subcutaneous 1.8 mg once daily in am Pen Foster [facility] [id number] 32G X 6 MM February 25, Active as directed 2019 Tresiba [facility] 90061400628 200 UNIT/ML February 23, Active 85 units FlexTouch Subcutaneous 2018 daily Estradiol ND 40152261691 0.5 MG Orally Active 1 tablet Once a day FreeStyle Petrona [facility] 18563220495 - Subcutaneous February 15, Active as directed 14 Day Sensor Check BS 3x 2018 daily and prn Magnesium [facility] 99012689433 400 MG Orally Active as directed Flonase [facility] 44895163597 2 sprays per February 17, Active as directed nostril once a 2019 day Tresiba [facility] 98892708493 200 UNIT/ML Active as directed FlexTouch Subcutaneous 85 unts in am Esomeprazole [facility] 52021277398 40 MG Orally Active 1 capsule Magnesium Once a day Crestor [facility] 12193640980 20 MG Orally Apr 26, Active 1 tablet Once a day 2019 Pantoprazole [facility] 48408540260 40 MG Orally Active 1 tablet Sodium Once a day FreeStyle Petrona [facility] 64189991225 - as directed February 15, Active as directed Sidney Check BS 3x 2018 daily and prn Flonase Allergy [facility] 50200105128 50 MCG/ACT Active 1 spray in Relief Nasally Twice a each day nostril Ondansetron HCl [facility] 13993965594 4 MG Orally Active 1 tablet Once a day Hydrocodone-Acet [facility] 74825134035 7.5-325 MG Active 1 tablet as aminophen Orally tid needed Contour testing ND 0 N/S prick Apr 26, Active strip strips finger tid 2018 Januvia [facility] 29941109698 50 MG Orally Apr 24, Active 1 tablet Once a day for 2018 diabetes BusPIRone HCl [facility] 14438330921 10 MG Orally Active 1 tablet Twice a day Montelukast ND 81565231950 10 MG Orally Active 1 tablet Sodium Once a day Albuterol ND 05785872548 Twice a day Active 2 puffs by as needed mouth Victoza [facility] 07171103020 18 MG/3ML February 23November Active 1.8 units Subcutaneous 2018 15, once daily 2019 Trulance [facility] 25134370474 3 MG Orally Active 1 tablet Once a day Losartan ND 53659428696 100-25 MG Active 1 tablet Potassium-HCTZ Orally Once a day Amitiza ND 11180718403 24 MCG Orally Active 1 capsule Once a day with food Blood Glucose ND 0 as directed Apr 28, Active as directed Test Strip Test BS three 2018 (DISPENSE times daily BLOOD GLUCOSE TEST STRIPS FOR BS MONITOR OF RECORD ) Levothyroxine ND 41996786417 50 MCG Orally Active 1 tablet on Sodium Once a day an empty stomach in the morning Methocarbamol ND 28083592954 750 MG Orally Jul 15, Aug 14, Active 1 tablet as Twice daily 2018 2018 needed for muscle cramping/pa in Lancets [facility] 92900476525 - as directed May 05, Active as directed test BS once 2018 (Dispense daily lancets formulary to insurance) Simvastatin ND 63287152824 10 MG Orally Active 1 tablet in Once a day the evening Meloxicam ND 40846332858 15 MG Orally Active 1 tablet as Once a day needed for pain; take with foot Lancets [facility] 94281716616 - May 30, Active as directed 2019 Contour Next ND 52434869409 w/Device May 30, Active as directed Monitor 2019 Blood Glucose ND 02359795747 w/Device as May 05, Active as directed Monitor System directed Test 2018 (Dispense BS once daily Blood Glucose Monitor Formulary to Insurance) ProAir HFA [facility] 52569861672 108 (90 Base) Active 2 puffs as MCG/ACT needed for Inhalation SOB/wheezin every 4-6 hrs g Results No Known Results Summary Purpose [employer]ClinicalWorks Submission
--- OUTSIDE RECORDS SUMMARY | 2019-10-11 16:13 | XMS REPORT ---
:1965 Author Organization [employer] Care Team Providers Name Role Phone Tawana Ramirez Provider Role Unavailable Allergies No Known Allergies Problems Problem Type Condition Code Onset Dates Condition Status Problem Swelling R60.9 Active Problem Hoarseness R49.0 Active Problem High cholesterol E78.00 Active Problem Sinus problem J34.9 Active Problem Depression with anxiety F41.8 Active Problem Chronic pain syndrome G89.4 Active Problem Polyarthralgia M25.50 Active Problem Diabetes E11.9 Active Problem Muscle cramping R25.2 Active Problem Right leg pain M79.604 Active Problem Essential hypertension I10 Active Problem Low back pain M54.5 Active Problem Chest tightness R07.89 Active Problem Other chronic pain G89.29 Active Problem Exposure to mold Z77.120 Active Problem Non-intractable vomiting with R11.2 Active nausea, unspecified vomiting type Problem Acquired hypothyroidism E03.9 Active Problem Anxiety F41.9 Active Problem Lumbago with sciatica, right side M54.41 Active Problem Asthma J45.909 Active Problem Sore throat J02.9 Active Problem Wheezing R06.2 Active Problem Shortness of breath R06.02 Active Problem Itching L29.9 Active Problem Hyperlipidemia, unspecified E78.5 Active hyperlipidemia type Problem Gastroesophageal reflux disease, K21.9 Active esophagitis presence not specified Problem High blood pressure I10 Active Problem Abnormal urine odor R82.90 Active Problem Asthma, unspecified asthma J45.909 Active severity, unspecified whether complicated, unspecified whether persistent Problem Acute right-sided thoracic back M54.6 Active pain Problem Chronic obstructive pulmonary J44.9 Active disease, unspecified COPD type Problem Uncontrolled type 2 diabetes E11.65 Active mellitus with hyperglycemia Medications No Known Medications Results No Known Results Summary Purpose [employer]Clinical[employer] Submission
--- OUTSIDE RECORDS SUMMARY | 2019-10-11 16:14 | XMS REPORT ---
:1965 Author Organization [employer] Care Team Providers Name Role Phone Tannerjimmy Tawana Provider Role Unavailable Allergies No Known Allergies Problems Problem Type Condition Code Onset Dates Condition Status Problem High cholesterol E78.00 Active Problem Chronic pain syndrome G89.4 Active Problem Acquired hypothyroidism E03.9 Active Problem Sinus problem J34.9 Active Problem Diabetes E11.9 Active Problem Essential hypertension I10 Active Problem Asthma J45.909 Active Problem Anxiety F41.9 Active Problem Polyarthralgia M25.50 Active Problem Uncontrolled type 2 diabetes E11.65 Active mellitus with hyperglycemia Problem Other chronic pain G89.29 Active Problem Wheezing R06.2 Active Problem Asthma, unspecified asthma J45.909 Active severity, unspecified whether complicated, unspecified whether persistent Problem Itching L29.9 Active Problem Sore throat J02.9 Active Problem Shortness of breath R06.02 Active Problem Lumbago with sciatica, right side M54.41 Active Problem Status post fall Z91.81 Active Problem Hyperlipidemia, unspecified E78.5 Active hyperlipidemia type Problem Abnormal urine odor R82.90 Active Problem Dizziness R42 Active Problem High blood pressure I10 Active Problem Chest tightness R07.89 Active Problem Exposure to mold Z77.120 Active Problem Imbalance R26.89 Active Problem Non-intractable vomiting with R11.2 Active nausea, unspecified vomiting type Problem Hoarseness R49.0 Active Problem Depression with anxiety F41.8 Active Problem Swelling R60.9 Active Problem Gastroesophageal reflux disease, K21.9 Active esophagitis presence not specified Problem Chronic obstructive pulmonary J44.9 Active disease, unspecified COPD type Problem Muscle cramping R25.2 Active Problem Right leg pain M79.604 Active Problem Acute right-sided thoracic back M54.6 Active pain Problem Low back pain M54.5 Active Medications No Known Medications Results No Known Results Summary Purpose [employer]ClinicalWorks Submission
--- OUTSIDE RECORDS SUMMARY | 2019-10-11 16:14 | XMS REPORT ---
:1965 [facility] Providers Name Role Phone [...] type Problem Abnormal urine odor R82.90 Active Assessment Dizziness R42 Active Problem Dizziness R42 Active Problem High blood pressure I10 Active Assessment URI, acute J06.9 Active Problem Chest tightness R07.89 Active Assessment Acute pharyngitis, unspecified J02.9 Active etiology Problem Exposure to mold Z77.120 Active Assessment Shortness of breath R06.02 Active Problem Imbalance R26.89 Active Assessment Wheezing R06.2 Active Problem Non-intractable vomiting with R11.2 Active nausea, unspecified vomiting type Problem Hoarseness R49.0 Active Problem Depression with anxiety F41.8 Active Problem Swelling R60.9 Active Assessment Other chronic pain G89.29 Active Problem Gastroesophageal reflux disease, K21.9 Active esophagitis presence not specified Assessment Lumbago with sciatica, right side M54.41 Active Problem Chronic obstructive pulmonary J44.9 Active disease, unspecified COPD type Assessment Status post fall Z91.81 Active Problem Muscle cramping R25.2 Active Assessment Imbalance R26.89 Active Problem Right leg pain M79.604 Active Problem Acute right-sided thoracic back M54.6 Active pain Problem Low back pain M54.5 Active Medications Medication Code Code Instructions Start End Status Dosage System Date Date [facility][NOTE 3] 72080405476 50 MG Orally Apr 24, Active 1 tablet Once a day for 2019 diabetes Lancets [facility][NOTE 3] 65636131099 - as directed May 05, Active as directed test BS once 2019 (Dispense daily lancets formulary to insurance) Victoza [facility][NOTE 3] 51896974059 18 MG/3ML Active as directed Subcutaneous 1.8 mg once daily in am Esomeprazole ND 20607219080 40 MG Orally Active 1 capsule Magnesium Once a day [facility] 10472665057 - May 30, Active as directed 2019 ProAir HFA [facility][NOTE 3] 44924984244 108 (90 Base) Active 2 puffs as MCG/ACT needed for Inhalation sob/wheezin every 4-6 hrs g Magnesium [facility][NOTE 3] 97852292189 400 MG Orally Active as directed Crestor [facility][NOTE 3] 18619684961 20 MG Orally Apr 26, Active 1 tablet Once a day 2019 Tresiba ND 68121321943 200 UNIT/ML Active as directed FlexTouch Subcutaneous 85 unts in am Contour Next ND 97459070174 w/Device May 30, Active as directed Monitor 2019 Flonase [facility][NOTE 3] 78758128672 2 sprays per February 17, Active as directed nostril once a 2019 day FreeStyle Petrona [facility][NOTE 3] 41195876692 - Subcutaneous February 15, Active as directed 14 Day Sensor Check BS 3x 2019 daily and prn Ondansetron HCl ND 27110045414 4 MG Orally Active 1 tablet Once a day Albuterol ND 44294936637 Twice a day Active 2 puffs by as needed mouth Hydrocodone-Acet ND 75120557947 7.5-325 MG Active 1 tablet as aminophen Orally tid needed Contour testing ND 0 N/S prick Apr 26, Active strip strips finger tid 2019 Blood Glucose [facility][NOTE 3] 88132186036 w/Device as May 05, Active as directed Monitor System directed Test 2019 (Dispense BS once daily Blood Glucose Monitor Formulary to Insurance) BusPIRone HCl [facility][NOTE 3] 96625015172 10 MG Orally Active 1 tablet Twice a day Simvastatin ND 18240753733 10 MG Orally Active 1 tablet in Once a day the evening Flonase Allergy ND 59523823061 50 MCG/ACT Active 1 spray in Relief Nasally Twice a each day nostril Pen Baxter [facility][NOTE 3] 83312664087 32G X 6 MM February 25, Active as directed 2018 Estradiol ND 23702626981 0.5 MG Orally Active 1 tablet Once a day Losartan ND 10551280875 100-25 MG Active 1 tablet Potassium-HCTZ Orally Once a day Amitiza [facility][NOTE 3] 26777030260 24 MCG Orally Active 1 capsule Once a day with food Victoza [facility][NOTE 3] 05488666977 18 MG/3ML February 23November Active 1.8 units Subcutaneous 2018, once daily 2019 Levothyroxine ND 67278468423 50 MCG Orally Active 1 tablet on Sodium Once a day an empty stomach in the morning Trulance [facility][NOTE 3] 02892659580 3 MG Orally Active 1 tablet Once a day Blood Glucose ND 0 as directed Apr 28, Active as directed Test Strip Test BS three 2018 (DISPENSE times daily BLOOD GLUCOSE TEST STRIPS FOR BS MONITOR OF RECORD ) Montelukast ND 97072184363 10 MG Orally Active 1 tablet Sodium Once a day Meloxicam ND 75740578813 15 MG Orally Active 1 tablet as Once a day needed for pain; take with foot Pantoprazole ND 93147971144 40 MG Orally Active 1 tablet Sodium Once a day Tresiba ND 65597515999 200 UNIT/ML February 23 Active 85 units FlexTouch Subcutaneous 2018 daily Azithromycin ND 79497008788 250 MG Orally 2 Aug 16, Aug 21, Active as directed tablets on 2018 2019 day#1, then 1 tablet daily for remaining 4 days FreeStyle [place] ND 36097834952 - as directed February 15, Active as directed Amity Check BS 3x 2019 daily and prn Results No Known Results Summary Purpose eClinicalWorks Submission
--- OUTSIDE RECORDS SUMMARY | 2019-10-11 16:15 | XMS REPORT ---
:1965 [facility] Providers Name Role Phone Tawana Ramirez Provider Role Unavailable Allergies, Adverse Reactions, Alerts Substance Reaction Event Type N.K.D.A. Info Not Available Non Drug Allergy Problems Problem Type Condition Code Onset Dates Condition Status Problem Chronic obstructive pulmonary J44.9 Active disease, unspecified COPD type Problem Gastroesophageal reflux disease, K21.9 Active esophagitis presence not specified Problem Asthma, unspecified asthma J45.909 Active severity, unspecified whether complicated, unspecified whether persistent Problem Uncontrolled type 2 diabetes E11.65 Active mellitus with hyperglycemia Problem Hoarseness R49.0 Active Problem Swelling R60.9 Active Problem Depression with anxiety F41.8 Active Problem Chronic pain syndrome G89.4 Active Problem High cholesterol E78.00 Active Problem Sinus problem J34.9 Active Problem Chest tightness R07.89 Active Problem Non-intractable vomiting with R11.2 Active nausea, unspecified vomiting type Problem Acquired hypothyroidism E03.9 Active Problem Wheezing R06.2 Active Problem Shortness of breath R06.02 Active Problem Itching L29.9 Active Problem Difficulty sleeping G47.9 Active Problem Lumbago with sciatica, right side M54.41 Active Problem Asthma J45.909 Active Problem Essential hypertension I10 Active Problem Acute stress reaction F43.0 Active Problem Diabetes E11.9 Active Problem Dizziness R42 Active Problem Sore throat J02.9 Active Problem Status post fall Z91.81 Active Problem Imbalance R26.89 Active Problem Abnormal urine odor R82.90 Active Problem Low back pain M54.5 Active Problem Hyperlipidemia, unspecified E78.5 Active hyperlipidemia type Problem Muscle cramping R25.2 Active Problem Anxiety F41.9 Active Problem High blood pressure I10 Active Problem Polyarthralgia M25.50 Active Assessment Difficulty sleeping G47.9 Active Problem Acute right-sided thoracic back M54.6 Active pain Assessment Acute stress reaction F43.0 Active Problem Exposure to mold Z77.120 Active Problem Right leg pain M79.604 Active Problem Other chronic pain G89.29 Active Medications Medication Code Code Instructions Start End Status Dosage System Date Date BusPIRone HCl [facility] 68425607660 10 MG Orally Active 1 tablet Twice a day Trulance [facility] 14832849262 3 MG Orally Active 1 tablet Once a day Esomeprazole [facility] 95234748892 40 MG Orally Active 1 capsule Magnesium Once a day Pen [place] [facility] 08543930528 32G X 6 MM February 25, Active as directed 2019 Victoza [facility] 94435214885 18 MG/3ML Active as directed Subcutaneous 1.8 mg once daily in am Blood Glucose [facility] 61543244347 w/Device as May 05, Active as directed Monitor System directed Test 2018 (Dispense BS once daily Blood Glucose Monitor Formulary to Insurance) Meloxicam [facility] 65618767498 15 MG Orally Active 1 tablet as Once a day needed for pain; take with foot Ondansetron HCl [facility] 38114324397 4 MG Orally Active 1 tablet Once a day Hydrocodone-Acet [facility] 47486942397 7.5-325 MG Active 1 tablet as aminophen Orally tid needed Tresiba [facility] 73801533065 200 UNIT/ML Active as directed FlexTouch Subcutaneous 85 unts in am Montelukast [facility] 73263744447 10 MG Orally Active 1 tablet Sodium Once a day Lancets [facility] 09682445065 - as directed May 05, Active as directed test BS once 2019 (Dispense daily lancets formulary to insurance) Levothyroxine [facility] 16338665519 50 MCG Orally Active 1 tablet on Sodium Once a day an empty stomach in the morning Simvastatin [facility] 88896330384 10 MG Orally Active 1 tablet in Once a day the evening ProAir HFA [facility] 74032217443 108 (90 Base) Active 2 puffs as MCG/ACT needed for Inhalation sob/wheezin every 4-6 hrs g Crestor [facility] 51326166873 20 MG Orally Active 1 tablet Once a day Alprazolam [facility] 91838902280 0.5 MG Orally Dec 20, Active 1-2 tablets Twice a day 2019 as needed for anxiety/sle ep Estradiol [facility] 54271545037 0.5 MG Orally Active 1 tablet Once a day Magnesium [facility] 88748160018 400 MG Orally Active as directed Losartan [facility] 92451834296 100-25 MG Active 1 tablet Potassium-HCTZ Orally Once a day Jarrelluvia [facility] 15650244046 50 MG Orally Apr 24, Active 1 tablet Once a day for 2018 diabetes Amitiza [facility] 69024831453 24 MCG Orally Active 1 capsule Once a day with food Contour testing [facility] 0 N/S prick Apr 26, Active strip strips finger tid 2018 Albuterol [facility] 42169763569 Twice a day Active 2 puffs by as needed mouth Results No Known Results Summary Purpose eClinicalWorks Submission
--- OUTSIDE RECORDS SUMMARY | 2019-10-11 16:15 | XMS REPORT ---
[...] pressure I10 Active Problem Polyarthralgia M25.50 Active Problem Acute right-sided thoracic back M54.6 Active pain Problem Exposure to mold Z77.120 Active Problem Right leg pain M79.604 Active Problem Other chronic pain G89.29 Active Medications No Known Medications Results No Known Results Summary Purpose eClinicalWorks Submission
--- NOTE | 2019-10-11 16:40 | RAD REPORT ---
EXAM DESCRIPTION: CT - Ct Stroke Brain Wo Cont - 10/11/2019 4:31 pm CLINICAL HISTORY: Weakness;Slurred speech COMPARISON: No comparisons TECHNIQUE: Axial 5 millimeter thick images of the head were obtained without IV contrast. All CT scans are performed using dose optimization technique as appropriate and may include automated exposure control or mA/KV adjustment according to patient size. FINDINGS: No intracranial hemorrhage, mass, or cerebral edema. No acute infarction identifiable. No extra-axial fluid collections. [place] matter-white matter differentiation is preserved. Visualized portions of the mastoid air cells, paranasal sinuses, and orbits are unremarkable. Findings telephoned to the ordering physician 4:34 p.m. IMPRESSION: No CT evidence of acute intracranial process. Ongoing concerns for acute CVA can be addressed with MR imaging.
[2019-10-11 16:43] LABS: Protime INR 0.97
--- NOTE | 2019-10-11 16:47 | RAD REPORT ---
EXAM DESCRIPTION: RAD - Chest Single View - 10/11/2019 4:38 pm CLINICAL HISTORY: CVA, Stroke protocol chest film COMPARISON: Chest Pa And Lat (2 Views) dated 06/24/2019 TECHNIQUE: AP portable chest image was obtained 10/11/2019 4:38 pm . FINDINGS: Lung volumes are low. No focal mass or consolidation. No pulmonary edema, failure or volum e overload suspected. Lung markings are accentuated by the low lung volumes. Heart and vasculature ar e normal. No measurable pleural effusion and no pneumothorax. No acute bony abnormality seen. No acut e aortic findings suspected. IMPRESSION: No acute cardiopulmonary process.
[2019-10-11 16:58] LABS: Absolute Lymphocytes (CBC) 3.3 K/uL (0.7-4.9); Basophils % 1.2 % (0-1.3); Hematocrit 42.3 % (36.0-45.0); Lymphocytes % 33.3 % (15.3-44.8); MPV 9.6 fL (7.6-11.3); RBC Red Blood Cell Count 4.57 M/uL (3.86-4.86)
[2019-10-11 16:59] LABS: BUN Blood Urea Nitrogen 13 mg/dL (7-18); Bicarbonate 27 mmol/L (21-32); Sodium Level 135 mmol/L (136-145); Troponin (Emerg Dept Use Only) < 0.02 ng/mL (0.0-0.045)
[2019-10-11 17:22] LABS: Glucose Level 413 mg/dL (74-106)
[2019-10-11] MEDS ORDERED: CLOPIDOGREL 75 MG TABLET ONE (17:26)
[2019-10-11] MEDS ORDERED: INSULIN -REGULAR HUMAN 50 UNIT/0.5 ML ML ONE (17:27)
--- NOTE | 2019-10-11 17:39 | EDPHYS ---
Physician Documentation [facility] Name: Charlotte Ruvalcaba Age: 54 yrs Sex: Female : 1965 Arrival Date: 10/11/2019 Time: 16:11 Bed 7 Private MD: ED Physician Spenser Ruvalcaba HPI: 10/11 16:25 This 54 yrs old Black Female presents to ER via Wheelchair with complaints of Slurred rn Speech, Numbness Of Face. 16:25 The patient presents to the emergency department with weakness of the left upper rn extremity, left lower extremity, left side of the face, that is moderate, a speech or higher order brain function problem, paresthesias of the. Onset: The symptoms/episode began/occurred last night. Severity of symptoms: At their worst the symptoms were moderate in the emergency department the symptoms are unchanged. The patient has not experienced similar symptoms in the past. The patient has not recently seen a physician. Reports symptoms of left sided weakness/numbness, and left facial droop with slurred speech began last night around 9PM. No resolution of symptoms. Daughter stated noticing abnormal speech last night. . Historical: - Allergies: 16:34 NKDA; ss - Home Meds: 16:34 Albuterol Inhl [Active]; meloxicam 15 mg oral tab 1 tab once daily [Active]; buspirone ss 10 mg Oral tab [Active]; esomeprazole magnesium 40 mg oral cpDR 1 cap once daily [Active]; ondansetron HCl 4 mg Oral tab 1 tabs twice a day [Active]; Amitiza 24 mcg oral cap 1 cap 2 times per day [Active]; magnesium oxide 400 mg Oral tab daily [Active]; levothyroxine 50 mcg tab 1 tab once daily [Active]; simvastatin 10 mg Oral tab 1 tab once daily [Active]; losartan-hydrochlorothiazide 100-25 mg oral tab 1 tab once daily [Active]; 16:35 Victoza [Active]; Tresiba [Active]; Trulance [Active]; montelukast 10 mg oral tab 1 tab ss once daily [Active]; pantoprazole 40 mg oral TbEC 1 tab once daily [Active]; - PMHx: 16:34 Asthma; COPD; Diabetes - IDDM; chronic pain, sees pain doctor; breast cancer; ss Hypertension; Gout; Hypothyroidism; - Immunization history:: Adult Immunizations up to date. - Coronavirus screen:: The patient has NOT traveled to [place], [place], or [place] in the past 14 days. Proceed with normal triage process as indicated. - Family history:: not pertinent. - Social history:: Smoking status: Patient denies any tobacco usage or history of. - Hospitalizations: : No recent hospitalization is reported. - Ebola Screening: : Patient denies exposure to infectious person Patient denies travel to an Ebola-affected area in the 21 days before illness onset. ROS: 16:25 Constitutional: Negative for fever, chills, and weight loss, Eyes: Negative for injury, rn pain, redness, and discharge, Neck: Negative for injury, pain, and swelling, Cardiovascular: Negative for chest pain, palpitations, and edema, Respiratory: Negative for shortness of breath, cough, wheezing, and pleuritic chest pain, Abdomen/GI: Negative for abdominal pain, nausea, vomiting, diarrhea, and constipation, MS/Extremity: Negative for injury and deformity, Skin: Negative for injury, rash, and discoloration, Neuro: Negative for headache, and seizure. Exam: 16:25 Constitutional: This is a well developed, well nourished patient who is awake, alert, rn tearful Head/Face: Normocephalic, atraumatic. Eyes: Pupils equal round and reactive to light, extra-ocular motions intact. Lids and lashes normal. Conjunctiva and sclera are non-icteric and not injected. Cornea within normal limits. Periorbital areas with no swelling, redness, or edema. Neck: Trachea midline, no thyromegaly or masses palpated, and no cervical lymphadenopathy. Supple, full range of motion without nuchal rigidity, or vertebral point tenderness. No Meningismus. Cardiovascular: Regular rate and rhythm. No pulse deficits. Respiratory: No increased work of breathing, no retractions or nasal flaring. Abdomen/GI: Soft, non-tender MS/ Extremity: Pulses equal, no cyanosis. Neurovascular intact. Full, normal range of motion. Equal circumference. Neuro: Awake and alert, GCS 15, oriented to person, place, time, and situation. + left lower facial droop with forehead sparing, + LUE and LLE droop and decreased sensation. Vital Signs: 16:13 BP 162 / 86; Pulse 90; Resp 18; Temp 97.6; Pulse Ox 97% on R/A; Weight 77.11 kg; Height ss 5 ft. 4 in. (162.56 cm); 19:10 BP 100 / 58; Pulse 75; Resp 18 S; Pulse Ox 95% on R/A; jd3 20:21 BP 94 / 52; Pulse 75; Resp 17 S; Pulse Ox 97% on R/A; jd3 16:13 Body Mass Index 29.18 (77.11 kg, 162.56 cm) NIH Stroke Scale Scores: 16:15 NIHSS Score: 6 ss 16:23 NIHSS Score: 6 rn 16:25 NIHSS Score: 7 em 19:08 NIHSS Score: 7 jd3 MDM: 16:12 Patient medically screened. rn 16:42 ED course: Onset of symptoms last night, no indication for TPA.. rn 17:35 Data reviewed: vital signs, nurses notes, lab test result(s), EKG, radiologic studies, rn CT scan, and as a result, I will admit patient. Counseling: I had a detailed discussion with the patient and/or guardian regarding: the historical points, exam findings, and any diagnostic results supporting the discharge/admit diagnosis, lab results, radiology results, the need for further work-up and treatment in the hospital. Response to treatment: There is no appreciated change of the patient's symptoms at this time, and as a result, I will admit patient. 10/11 16:18 Order name: Troponin (emerg Dept Use Only) rn 10/11 16:18 Order name: Basic Metabolic Panel rn 10/11 16:18 Order name: CBC with Diff; Complete Time: 17:13 rn 10/11 16:18 Order name: Protime (+inr); Complete Time: 17:00 rn 10/11 16:18 Order name: Ptt, Activated; Complete Time: 17:00 rn 10/11 16:27 Order name: Glucose, Ancillary Testing; Complete Time: 17:00 EDMS 10/11 16:18 Order name: CT Stroke Brain w/o Contrast; Complete Time: 17:00 rn 10/11 16:18 Order name: Stroke CXR 1 View; Complete Time: 17:00 rn 10/11 16:18 Order name: EKG; Complete Time: 16:19 rn 10/11 16:18 Order name: Accucheck; Complete Time: 16:21 rn 10/11 16:18 Order name: Cardiac monitoring; Complete Time: 16:23 rn 10/11 19:22 Order name: Glucose, Ancillary Testing EDMS 10/11 16:18 Order name: EKG - Nurse/Tech; Complete Time: 17:13 rn 10/11 16:18 Order name: IV Saline Lock; Complete Time: 16:23 rn 10/11 16:18 Order name: Labs collected and sent; Complete Time: 16: rn 10/11 16:18 Order name: NPO; Complete Time: 16: rn 10/11 16:18 Order name: O2 Per Protocol; Complete Time: 16: rn 10/11 16:18 Order name: O2 Sat Monitoring; Complete Time: 16: rn 10/11 16:18 Order name: Stroke Swallow Screen; Complete Time: 17:14 rn Administered Medications: 17:28 Not Given (Physician Discretion; did not pass bedside swallow, provider notified): em PlaVIX 75 mg PO once 17:38 Drug: Insulin Regular Human 10 units {Co-Signature: dm5 (Latosha Lui RN).} Route: Sub-Q; Site: right upper arm; 19:00 Follow up: Response: No adverse reaction; Blood sugar is lowered jd3 Point of Care Testing: Blood Glucose: 16:17 Blood Glucose: 445 mg/dL; em Ranges: Critical Glucose Levels:Adult <50 mg/dl or >400 mg/dl <40 mg/dl or >180 mg/dl Disposition: 10/11/19 17:37 Hospitalization ordered by Eusebio Barbosa for Inpatient Admission. Preliminary diagnosis are Slurred speech, Weakness, Ischemic Stroke. - Bed requested for Telemetry/MedSurg (Inpatient). - Status is Inpatient Admission. jd3 - Condition is Stable. - Problem is new. - Symptoms are unchanged. NIH Stroke Scale - NIH Stroke Score Date: 10/11/2019 Time: 16:15 Total Score = 6 1a. Level of Consciousness (LOC) - 0(Alert) 1b. Level of Consciousness (LOC) (Year \T\ Age) - 0(Both) 1c. LOC Commands (Open \T\ Closes Eyes/Operation Research Analyst) - 0(Both) 2. Best Gaze (Lateral Gaze Paresis) - 0(Normal) 3. Visual Field Loss - 0(No visual loss) 4. Facial Palsy - 2(Partial paralysis) 5a. Left Arm: Motor (10-second hold) - 1(Drift) 5b. Right Arm: Motor (10-second hold) - 0(No drift) 6a. Left Leg: Motor (5-second hold - always test supine) - 1(Drift) 6b. Right Leg: Motor (5-second hold - always test supine) - 0(No drift) 7. Limb Ataxia (finger/nose \T\ heel/mir - test with eyes open) - 0(Absent) 8. Sensory Loss (pinprick arms/legs/face) - 1(Mild to moderate loss) 9. Best Language: Aphasia (description/naming/reading) - 0(No aphasia) 10. Dysarthria (speech clarity - read or repeat words) - 1(Mild to Moderate) 11. Extinction and Inattention (visual/tactile/auditory/spatial/personal) - 0(No abnormality) Initials: NIH Stroke Scale - NIH Stroke Score Date: 10/11/2019 Time: 16:23 Total Score = 6 1a. Level of Consciousness (LOC) - 0(Alert) 1b. Level of Consciousness (LOC) (Year \T\ Age) - 0(Both) 1c. LOC Commands (Open \T\ Closes Eyes/Operation Research Analyst) - 0(Both) 2. Best Gaze (Lateral Gaze Paresis) - 0(Normal) 3. Visual Field Loss - 0(No visual loss) 4. Facial Palsy - 2(Partial paralysis) 5a. Left Arm: Motor (10-second hold) - 1(Drift) 5b. Right Arm: Motor (10-second hold) - 0(No drift) 6a. Left Leg: Motor (5-second hold - always test supine) - 1(Drift) 6b. Right Leg: Motor (5-second hold - always test supine) - 0(No drift) 7. Limb Ataxia (finger/nose \T\ heel/mir - test with eyes open) - 0(Absent) 8. Sensory Loss (pinprick arms/legs/face) - 1(Mild to moderate loss) 9. Best Language: Aphasia (description/naming/reading) - 0(No aphasia) 10. Dysarthria (speech clarity - read or repeat words) - 1(Mild to Moderate) 11. Extinction and Inattention (visual/tactile/auditory/spatial/personal) - 0(No abnormality) Initials: rn NIH Stroke Scale - NIH Stroke Score Date: 10/11/2019 Time: 16:25 Total Score = 7 1a. Level of Consciousness (LOC) - 0(Alert) 1b. Level of Consciousness (LOC) (Year \T\ Age) - 0(Both) 1c. LOC Commands (Open \T\ Closes Eyes/Operation Research Analyst) - 0(Both) 2. Best Gaze (Lateral Gaze Paresis) - 0(Normal) 3. Visual Field Loss - 0(No visual loss) 4. Facial Palsy - 1(Minor Paralysis) 5a. Left Arm: Motor (10-second hold) - 1(Drift) 5b. Right Arm: Motor (10-second hold) - 0(No drift) 6a. Left Leg: Motor (5-second hold - always test supine) - 2(Drift, some effort against gravity) 6b. Right Leg: Motor (5-second hold - always test supine) - 0(No drift) 7. Limb Ataxia (finger/nose \T\ heel/mir - test with eyes open) - 1(Present in one limb) 8. Sensory Loss (pinprick arms/legs/face) - 1(Mild to moderate loss) 9. Best Language: Aphasia (description/naming/reading) - 0(No aphasia) 10. Dysarthria (speech clarity - read or repeat words) - 1(Mild to Moderate) 11. Extinction and Inattention (visual/tactile/auditory/spatial/personal) - 0(No abnormality) Initials: NIH Stroke Scale - NIH Stroke Score Date: 10/11/2019 Time: 19:08 Total Score = 7 1a. Level of Consciousness (LOC) - 0(Alert) 1b. Level of Consciousness (LOC) (Year \T\ Age) - 0(Both) 1c. LOC Commands (Open \T\ Closes Eyes/Operation Research Analyst) - 0(Both) 2. Best Gaze (Lateral Gaze Paresis) - 0(Normal) 3. Visual Field Loss - 0(No visual loss) 4. Facial Palsy - 1(Minor Paralysis) 5a. Left Arm: Motor (10-second hold) - 1(Drift) 5b. Right Arm: Motor (10-second hold) - 0(No drift) 6a. Left Leg: Motor (5-second hold - always test supine) - 2(Drift, some effort against gravity) 6b. Right Leg: Motor (5-second hold - always test supine) - 0(No drift) 7. Limb Ataxia (finger/nose \T\ heel/mir - test with eyes open) - 1(Present in one limb) 8. Sensory Loss (pinprick arms/legs/face) - 1(Mild to moderate loss) 9. Best Language: Aphasia (description/naming/reading) - 0(No aphasia) 10. Dysarthria (speech clarity - read or repeat words) - 1(Mild to Moderate) 11. Extinction and Inattention (visual/tactile/auditory/spatial/personal) - 0(No abnormality) Initials: jd3 Signatures: Dispatcher [employer] Eunice Douglas RN RN dw Nieto, Roman, MD MD rn Smirch, Shelby, RN RN ss Davies, Jonathon, RN RN jd3 Munoz, Edgar RN em Deana Markwardt RN dm5 Corrections: (The following items were deleted from the chart) 18:10 17:37 Hospitalization Ordered by Eusebio Barbosa DO for Inpatient Admission. dw Preliminary diagnosis is Slurred speech; Weakness; Ischemic Stroke. Bed requested for Telemetry/MedSurg (Inpatient). Status is Inpatient Admission. Condition is Stable. Problem is new. Symptoms are unchanged. rn 21:11 18:10 10/11/2019 17:37 Hospitalization Ordered by Eusebio Barbosa DO for jd3 Inpatient Admission. Preliminary diagnosis is Slurred speech; Weakness; Ischemic Stroke. Bed requested for Telemetry/MedSurg (Inpatient). Status is Inpatient Admission. Condition is Stable. Problem is new. Symptoms are unchanged. cass
--- NOTE | 2019-10-11 17:39 | ER ---
Nurse's Notes [facility] Name: Charlotte Ruvalcaba Age: 54 yrs Sex: Female : 1965 Arrival Date: 10/11/2019 Time: 16:11 Bed 7 Private MD: Diagnosis: Slurred speech;Weakness;Ischemic Stroke Presentation: 10/11 16:11 An acute neurological deficit is present. The charge nurse has been notified. The ss patient has been moved to a treatment area. Pre-hospital glucose is not applicable to this patient. Onset of symptoms was October 10, 2019 at 21:00. Risk Assessment: Do you want to hurt yourself or someone else? Patient reports no desire to harm self or others. 16:14 Presenting complaint: Patient states: Slurred speech, L sided weakness and decreased ss sensation to L side that began at 9 PM last night. Transition of care: patient was not received from another setting of care. 16:14 Method Of Arrival: Wheelchair ss 16:17 Initial Sepsis Screen: Does the patient meet any 2 criteria? No. Patient's initial ss sepsis screen is negative. Does the patient have a suspected source of infection? No. Patient's initial sepsis screen is negative. Care prior to arrival: None. 16:17 Acuity: RASHAD 2 ss Triage Assessment: 19:10 The onset of the patients symptoms was October 10, 2019 at 21:00. jd3 Stroke Activation: Physician: Stroke Attending; Name: ; Notified At: ; Arrived At: Physician: Chief Stroke Resident; Name: ; Notified At: ; Arrived At: Physician: Stroke Resident; Name: ; Notified At: ; Arrived At: Physician: ED Attending; Name: ; Notified At: ; Arrived At: Physician: ED Resident; Name: ; Notified At: ; Arrived At: 16:17 VAN + >4 hours <24 hours ss Historical: - Allergies: 16:34 NKDA; ss - Home Meds: 16:34 Albuterol Inhl [Active]; meloxicam 15 mg oral tab 1 tab once daily [Active]; buspirone ss 10 mg Oral tab [Active]; esomeprazole magnesium 40 mg oral cpDR 1 cap once daily [Active]; ondansetron HCl 4 mg Oral tab 1 tabs twice a day [Active]; Amitiza 24 mcg oral cap 1 cap 2 times per day [Active]; magnesium oxide 400 mg Oral tab daily [Active]; levothyroxine 50 mcg tab 1 tab once daily [Active]; simvastatin 10 mg Oral tab 1 tab once daily [Active]; losartan-hydrochlorothiazide 100-25 mg oral tab 1 tab once daily [Active]; 16:35 Victoza [Active]; Tresiba [Active]; Trulance [Active]; montelukast 10 mg oral tab 1 tab ss once daily [Active]; pantoprazole 40 mg oral TbEC 1 tab once daily [Active]; - PMHx: 16:34 Asthma; COPD; Diabetes - IDDM; chronic pain, sees pain doctor; breast cancer; ss Hypertension; Gout; Hypothyroidism; - Immunization history:: Adult Immunizations up to date. - Coronavirus screen:: The patient has NOT traveled to [place], [place], or [place] in the past 14 days. Proceed with normal triage process as indicated. - Family history:: not pertinent. - Social history:: Smoking status: Patient denies any tobacco usage or history of. - Hospitalizations: : No recent hospitalization is reported. - Ebola Screening: : Patient denies exposure to infectious person Patient denies travel to an Ebola-affected area in the 21 days before illness onset. Screenin:13 Abuse screen: Denies threats or abuse. Denies injuries from another. Nutritional ss screening: No deficits noted. Tuberculosis screening: Never had TB. 16:15 VAN Screening: Arm Drift: Minor drift. Visual Disturbance: No visual disturbance noted. ss Aphasia: No aphasia noted. Neglect: No neglect noted. 16:25 Fall Risk No fall in past 12 months (0 pts). Secondary diagnosis (15 points) probable ss CVA. IV access (20 points). Ambulatory Aid- None/Bed Rest/Nurse Assist (0 pts). Gait- Normal/Bed Rest/Wheelchair (0 pts) Mental Status- Oriented to own ability (0 pts). Assessment: 16:19 Reassessment: Code stroke called. ss 16:20 Reassessment: Pt taken to CT via stretcher, accompanied by me. . em 16:25 T-PA (Activase) Screening: Contraindications: Patient reports onset of signs and em symptoms of stroke greater than 6 hours ago:. General: Appears in no apparent distress. comfortable, well groomed, well developed, well nourished, Behavior is calm, cooperative. Pain: Complains of pain in left lateral aspect of neck Pain. Neuro: Level of Consciousness is awake, alert, obeys commands, Oriented to person, place, time, situation, Appropriate for age Compliance Review Specialist are weak on left Weakness in left hand(s) arm(s) leg(s) Speech is slurred, Facial droop on left, Tingling in face, left arm, left leg and mouth Reports blurred vision since this morning. Cardiovascular: Capillary refill < 3 seconds Patient's skin is warm and dry. Rhythm is sinus rhythm. Respiratory: Airway is patent Respiratory effort is even, unlabored, Respiratory pattern is regular, symmetrical. Derm: Skin is intact, is healthy with good turgor, Skin is pink, warm \T\ dry. Musculoskeletal: Capillary refill < 3 seconds, Range of motion: intact in all extremities. 16:25 VAN Scoring: Arm Drift: Severe drift Visual Disturbance: No visual disturbance noted. em Aphasia: No aphasia noted. Neglect: No neglect noted. 16:30 Reassessment: returned from CT. em 16:40 Patient has been NPO before screening. The patient is alert, and able to follow em commands. The patient exhibits slurred or garbled speech. Provider notified of the indication for Speech Therapy consult. The patient is not exhibiting difficulty speaking. The patient does not exhibit difficulty understanding words. The patient is able to swallow own secretions with no drooling or need for suction. Patient tolerated one teaspoon of water. No drooling, immediate coughing, gurgling, or clearing of the throat was noted. The patient did not tolerate 90mL of water. Drooling, immediate coughing, gurgling, or clearing of the throat was noted. Bedside swallow screening discontinued. Patient kept NPO until cleared by Speech Therapy or Physician. The patient failed the bedside swallow screening. The patient will be kept NPO until cleared by Speech Therapy or Physician. Provider notified of bedside swallow screening results: Spenser Ruvalcaba MD. 19:06 General: Appears in no apparent distress. comfortable, Behavior is calm, cooperative, jd3 appropriate for age. Pain: Denies pain. Neuro: Level of Consciousness is awake, alert, obeys commands, Oriented to person, place, time, situation, Compliance Review Specialist are weak on left Weakness in left hand(s) arm(s) leg(s) Speech is slurred, Facial droop on left, Tingling in right arm and right leg. Cardiovascular: Denies chest pain, Capillary refill < 3 seconds Patient's skin is warm and dry. Rhythm is sinus rhythm. Respiratory: Airway is patent Respiratory effort is even, unlabored, Respiratory pattern is regular, symmetrical, Denies cough, shortness of breath. GI: No signs and/or symptoms were reported involving the gastrointestinal system. : No signs and/or symptoms were reported regarding the genitourinary system. EENT: No signs and/or symptoms were reported regarding the EENT system. Derm: Skin is intact, Skin is dry, Skin is normal, Skin temperature is warm. Musculoskeletal: Range of motion: intact in all extremities. 20:20 Reassessment: Patient appears in no apparent distress at this time. No changes from jd3 previously documented assessment. Patient and/or family updated on plan of care and expected duration. Pain level reassessed. Patient is alert, oriented x 3, equal unlabored respirations, skin warm/dry/pink. 21:00 Reassessment: Patient appears in no apparent distress at this time. No changes from jd3 previously documented assessment. Patient and/or family updated on plan of care and expected duration. Pain level reassessed. Patient is alert, oriented x 3, equal unlabored respirations, skin warm/dry/pink. Vital Signs: 16:13 BP 162 / 86; Pulse 90; Resp 18; Temp 97.6; Pulse Ox 97% on R/A; Weight 77.11 kg; Height ss 5 ft. 4 in. (162.56 cm); 19:10 BP 100 / 58; Pulse 75; Resp 18 S; Pulse Ox 95% on R/A; jd3 20:21 BP 94 / 52; Pulse 75; Resp 17 S; Pulse Ox 97% on R/A; jd3 16:13 Body Mass Index 29.18 (77.11 kg, 162.56 cm) NIH Stroke Scale Scores: 16:15 NIHSS Score: 6 ss 16:23 NIHSS Score: 6 rn 16:25 NIHSS Score: 7 em 19:08 NIHSS Score: 7 jd3 ED Course: 16:11 Patient arrived in ED. mr 16:12 Spenser Ruvalcaba MD is Attending Physician. rn 16:13 Patient has correct armband on for positive identification. Placed in gown. Bed in low ss position. Call light in reach. Side rails up X2. Adult w/ patient. 16:15 Inserted saline lock: 22 gauge in right antecubital area, using aseptic technique. ss ,using aseptic technique. Insertion by Carito Brewster RN Blood collected. Patient maintains SpO2 saturation greater than 95% on room air. 16:20 signal system testing maintainer on. Pulse ox on. NIBP on. ss 16:22 Travis Krishnan, RN is Primary Nurse. em 16:23 Triage completed. ss 16:31 CT Stroke Brain w/o Contrast In Process Unspecified. EDMS 16:39 Stroke CXR 1 View In Process Unspecified. EDMS 17:36 Eusebio Barbosa DO is Hospitalizing Provider. rn 19:10 Arm band placed on. jd3 21:11 No provider procedures requiring assistance completed. Patient admitted, IV remains in jd3 place. Administered Medications: 17:28 Not Given (Physician Discretion; did not pass bedside swallow, provider notified): em PlaVIX 75 mg PO once 17:38 Drug: Insulin Regular Human 10 units {Co-Signature: dm5 (Latosha Lui RN).} Route: ss Sub-Q; Site: right upper arm; 19:00 Follow up: Response: No adverse reaction; Blood sugar is lowered j Point of Care Testing: Blood Glucose: 16:17 Blood Glucose: 445 mg/dL; em Ranges: Outcome: 17:37 Decision to Hospitalize by Provider. rn 21:11 Patient left the ED. jd3 21:11 Admitted to Tele accompanied by tech, via stretcher, room 408, with chart, Report jd3 called to Frances DICKINSON 21:11 Condition: stable 21:11 Instructed on the need for admit, Demonstrated understanding of instructions. NIH Stroke Scale - NIH Stroke Score Date: 10/11/2019 Time: 16:15 Total Score = 6 1a. Level of Consciousness (LOC) - 0(Alert) 1b. Level of Consciousness (LOC) (Year \T\ Age) - 0(Both) 1c. LOC Commands (Open \T\ Closes Eyes/Director Cardiovascular) - 0(Both) 2. Best Gaze (Lateral Gaze Paresis) - 0(Normal) 3. Visual Field Loss - 0(No visual loss) 4. Facial Palsy - 2(Partial paralysis) 5a. Left Arm: Motor (10-second hold) - 1(Drift) 5b. Right Arm: Motor (10-second hold) - 0(No drift) 6a. Left Leg: Motor (5-second hold - always test supine) - 1(Drift) 6b. Right Leg: Motor (5-second hold - always test supine) - 0(No drift) 7. Limb Ataxia (finger/nose \T\ heel/mir - test with eyes open) - 0(Absent) 8. Sensory Loss (pinprick arms/legs/face) - 1(Mild to moderate loss) 9. Best Language: Aphasia (description/naming/reading) - 0(No aphasia) 10. Dysarthria (speech clarity - read or repeat words) - 1(Mild to Moderate) 11. Extinction and Inattention (visual/tactile/auditory/spatial/personal) - 0(No abnormality) Initials: ss NIH Stroke Scale - NIH Stroke Score Date: 10/11/2019 Time: 16:23 Total Score = 6 1a. Level of Consciousness (LOC) - 0(Alert) 1b. Level of Consciousness (LOC) (Year \T\ Age) - 0(Both) 1c. LOC Commands (Open \T\ Closes Eyes/Director Cardiovascular) - 0(Both) 2. Best Gaze (Lateral Gaze Paresis) - 0(Normal) 3. Visual Field Loss - 0(No visual loss) 4. Facial Palsy - 2(Partial paralysis) 5a. Left Arm: Motor (10-second hold) - 1(Drift) 5b. Right Arm: Motor (10-second hold) - 0(No drift) 6a. Left Leg: Motor (5-second hold - always test supine) - 1(Drift) 6b. Right Leg: Motor (5-second hold - always test supine) - 0(No drift) 7. Limb Ataxia (finger/nose \T\ heel/mir - test with eyes open) - 0(Absent) 8. Sensory Loss (pinprick arms/legs/face) - 1(Mild to moderate loss) 9. Best Language: Aphasia (description/naming/reading) - 0(No aphasia) 10. Dysarthria (speech clarity - read or repeat words) - 1(Mild to Moderate) 11. Extinction and Inattention (visual/tactile/auditory/spatial/personal) - 0(No abnormality) Initials: mariluz NIH Stroke Scale - NIH Stroke Score Date: 10/11/2019 Time: 16:25 Total Score = 7 1a. Level of Consciousness (LOC) - 0(Alert) 1b. Level of Consciousness (LOC) (Year \T\ Age) - 0(Both) 1c. LOC Commands (Open \T\ Closes Eyes/Director Cardiovascular) - 0(Both) 2. Best Gaze (Lateral Gaze Paresis) - 0(Normal) 3. Visual Field Loss - 0(No visual loss) 4. Facial Palsy - 1(Minor Paralysis) 5a. Left Arm: Motor (10-second hold) - 1(Drift) 5b. Right Arm: Motor (10-second hold) - 0(No drift) 6a. Left Leg: Motor (5-second hold - always test supine) - 2(Drift, some effort against gravity) 6b. Right Leg: Motor (5-second hold - always test supine) - 0(No drift) 7. Limb Ataxia (finger/nose \T\ heel/mir - test with eyes open) - 1(Present in one limb) 8. Sensory Loss (pinprick arms/legs/face) - 1(Mild to moderate loss) 9. Best Language: Aphasia (description/naming/reading) - 0(No aphasia) 10. Dysarthria (speech clarity - read or repeat words) - 1(Mild to Moderate) 11. Extinction and Inattention (visual/tactile/auditory/spatial/personal) - 0(No abnormality) Initials: NIH Stroke Scale - NIH Stroke Score Date: 10/11/2019 Time: 19:08 Total Score = 7 1a. Level of Consciousness (LOC) - 0(Alert) 1b. Level of Consciousness (LOC) (Year \T\ Age) - 0(Both) 1c. LOC Commands (Open \T\ Closes Eyes/Director Cardiovascular) - 0(Both) 2. Best Gaze (Lateral Gaze Paresis) - 0(Normal) 3. Visual Field Loss - 0(No visual loss) 4. Facial Palsy - 1(Minor Paralysis) 5a. Left Arm: Motor (10-second hold) - 1(Drift) 5b. Right Arm: Motor (10-second hold) - 0(No drift) 6a. Left Leg: Motor (5-second hold - always test supine) - 2(Drift, some effort against gravity) 6b. Right Leg: Motor (5-second hold - always test supine) - 0(No drift) 7. Limb Ataxia (finger/nose \T\ heel/mir - test with eyes open) - 1(Present in one limb) 8. Sensory Loss (pinprick arms/legs/face) - 1(Mild to moderate loss) 9. Best Language: Aphasia (description/naming/reading) - 0(No aphasia) 10. Dysarthria (speech clarity - read or repeat words) - 1(Mild to Moderate) 11. Extinction and Inattention (visual/tactile/auditory/spatial/personal) - 0(No abnormality) Initials: jana m Signatures: Dispatcher [employer] [facility] Sherine RockTravis, RN RN em Spenser Ruvalcaba MD MD rn Smirch, Shelby, RN RN ss Davies, Jonathon, RN RN jd3 Carito Brewster RN RN ca1 Latosha Lui RN dm5 Corrections: (The following items were deleted from the chart) 16:24 16:20 No provider procedures requiring assistance completed. ca1 em 16:24 16:20 Inserted saline lock: 22 gauge in right antecubital area, using aseptic em technique. Blood collected. [facility] 16:24 16:20 Initial lab(s) drawn, by me, held in ED. ca1 em
--- NOTE | 2019-10-11 18:03 | P.HP ---
Certification for Inpatient Patient admitted to: Observation With expected LOS: <2 Midnights Patient will require the following post-hospital care: None Practitioner: I am a practitioner with admitting privileges, knowledge of patient current condition, hospital course, and medical plan of care. Services: Services provided to patient in accordance with Admission requirements found in Title 42 Section 412.3 of the Code of Federal Regulations Patient History Date of Service: 10/11/19 Primary Care Provider: Dr. Galeano; Pain management-Dr. Schuster Reason for admission: Left-sided weakness and paresthesias History of Present Illness: 54-year-old female presented to the emergency room with left- sided weakness and paresthesias. Patient also reported left lower facial droop. Patient with history of diabetes, hypertension, prior TIA, hyperlipidemia and chronic pain. Patient reported left sided weakness and paresthesias last night around 930. She also reported some left lower facial droop. She did not tell anybody or went to the ER. This morning she woke up. She felt dizzy. She reported that she went to see her pain doctor to get refills of medication. She was using her walker at that time. Patient continued to have symptoms. She do not want a go to the ER but her friend made her. She denies any chest pain, shortness of breath. In the ER patient was evaluated. Patient had initial NIH score of 6. Blood pressure 162/86. Initial CT head unremarkable. Chest x-ray unremarkable. Troponin unremarkable. White count 10, hemoglobin 14. Sodium 135, potassium 4.0. BUN of 13, creatinine 0.87 with a GFR of 82. Glucose elevated at 413. Patient stable in the emergency room. Patient admitted for further evaluation and treatment. When I saw the patient ER, patient appeared stable. Patient's friend was at bedside. Left lower facial droop and left-sided weakness noted. Patient does not take aspirin. Patient takes insulin therapy, hypertensive medication and statin medication. Patient reports history of TIA in the past. Allergies No Known Drug Allergies Allergy (Verified 04/10/16 03:23) Unknown Home medications list reviewed: Yes Home Medications: Amitriptyline [Elavil*] 25 mg PO BEDTIME 04/10/16 Gabapentin [Neurontin] 600 mg PO TID 04/10/16 Losartan Potassium 100 mg PO DAILY 04/10/16 Simvastatin [Zocor*] 40 mg PO DAILY 04/10/16 Aspirin [Aspirin EC 81 MG] 1 tab PO DAILY 06/07/17 Fluticasone/Vilanterol [Breo Ellipta 200-25 Mcg INH] 1 each IH ONCE 06/07/17 Hydrocodone/Acetaminophen [Hydrocodone-Acetamin 10-325 mg] 1 tab PO Q6H PRN 09/23 Insulin Degludec [Tresiba Flextouch U-200] 80 units SQ DAILY 06/07/17 Levothyroxine Sodium 1 tab PO DAILY 06/07/17 Naloxegol Oxalate [Movantik] 25 mg PO DAILY 06/07/17 Victoza 18mg/3ml/Inj Novno 1.8 mg SQ DAILY 06/07/17 estradioL [Estradiol] 1 tab PO DAILY 06/07/17 methocarbamoL [Robaxin*] 1 tab PO Q12HP 06/07/17 Amoxicillin 500 mg PO DAILY #14 tablet 06/09/17 - Past Medical/Surgical History Diabetic: Yes -: Asthma -: Hypothyroidism -: Diabetes mellitus type 2 insulin dependent -: Gout -: HTN -: Hyperlipidemia -: Chronic pain -: Former tobacco use -: Hysterectomy -: Appendectomy -: -: Cholecystectomy -: cyst removals (right and left breast) -: right ankle sx -: right heel spurs -: dale knee surgery Psychosocial/ Personal History: Patient is . She lives at home. - Family History Father -: GI disease, Cancer Mother -: Heart disease, Hypertension, Diabetes Sister -: Heart disease, Hypertension, Cancer, Seizures - Social History Smoking Status: Former smoker Alcohol use: No CD- Drugs: No Caffeine use: Yes Place of Residence: Home Review of Systems General: Weakness, As per HPI Eyes: Unremarkable ENT: As per HPI Respiratory: Unremarkable Cardiovascular: Unremarkable Gastrointestinal: Unremarkable Genitourinary: As per HPI Musculoskeletal: Unremarkable Integumentary: Unremarkable Neurological: Weakness, Numbness, As per HPI Lymphatics: Unremarkable Physical Examination - Physical Exam General: Alert, In no apparent distress, Oriented x3, Cooperative HEENT: Atraumatic, Normocephalic, Mucous membr. moist/pink, Other (Left-sided lower facial droop noted) Neck: Supple, No Thyromegaly Respiratory: Clear to auscultation bilaterally, Normal air movement Cardiovascular: Normal pulses, Regular rate/rhythm Gastrointestinal: Normal bowel sounds, Soft and benign, Non-distended Musculoskeletal: No erythema, No tenderness, No warmth Integumentary: No tenderness/swelling, No erythema, No warmth, No cyanosis Neurological: Normal speech, Other (Left-sided facial droop noted), Abnormal strength (Left-sided upper and lower extremity weakness with paresthesias.) - Studies Laboratory Data (last 24 hrs) 10/11/19 16:22: PT 11.5, INR 0.97, APTT 28.7 10/11/19 16:22: WBC 10.0, Hgb 14.1, Hct 42.3, Plt Count 260 10/11/19 16:22: Sodium 135 L, Potassium 4.0, BUN 13, Creatinine 0.87, Glucose 413 H* Assessment and Plan - Plan Impression: Left-sided upper and lower extremity weakness with paresthesias and left-sided facial droop suspect CVA versus TIA Diabetes mellitus type 2 insulin-dependent with hyperglycemia Hypertension Hyperlipidemia Hypothyroidism Chronic pain Plan: Left-sided upper and lower extremity weakness with paresthesias and left-sided facial droop suspect CVA versus TIA: Patient be admitted for further evaluation and treatment. Will initiate stroke protocol evaluation. Patient is not take aspirin at home. Will start aspirin 81 mg daily, Lipitor 80 mg daily, and folic acid. Will also restart home medication of lisinopril 10 mg daily. Will maintain blood pressure around 160 systolic. Will slowly adjust medication accordingly. Will obtain stroke protocol MRI, echocardiogram and carotid Doppler to further evaluate. Will consult neurology for further recommendation. Will assess swallowing. Speech consulted. Physical therapy also consulted. Await findings of MRI. Will monitor closely. Will provide DVT prophylaxis-Lovenox. Fall precautions in place. Aspiration precaution in place. I will turn the service over to the hospitalist team tomorrow. I will go over the plan of care with him. Anticipate discharge in the next 24-48 hr. pending clinical improvement and findings. Patient may require inpatient rehab if found to have CVA. Diabetes mellitus type 2 insulin-dependent with hyperglycemia: Will check A1c. Will monitor Accu-Cheks. Will provide sliding scale. Will start basal insulin-Lantus. Will adjust accordingly. Hypertension: Restart lisinopril. Maintain systolic blood pressure around 160. Will slowly adjust over the next couple of days. Hyperlipidemia: Will check fasting lipid panel. Will start Lipitor 80 mg daily. Hypothyroidism: Will check tsh and free T4. Will obtain a restart home medication. Chronic pain: Patient is seen by pain management. She recently refilled her medication today. Will continue with hydrocodone. Discharge Plan: Home Plan to discharge in: 48 Hours - Advance Directives Does patient have a Living Will: No Does patient have a Durable POA for Healthcare: No - Code Status/Comfort Care Code Status Assessed: Yes (Patient is full code) Time Spent Managing Pts Care (In Minutes): 55
[2019-10-11] MEDS ORDERED: ONDANSETRON 4 MG/2 ML VIAL IV PRN (21:29)
[2019-10-11] MEDS ORDERED: ASPIRIN EC 81 MG TAB PO SCH (21:29)
[2019-10-11] MEDS ORDERED: D50W 25 GM/50 ML SYRINGE/VIAL IV PRN (21:29)
[2019-10-11] MEDS ORDERED: HYDROCODONE/APAP 10/325 TAB PO PRN (21:29)
[2019-10-11] MEDS ORDERED: GLUCAGON 1 MG/VIAL IM PRN (21:29)
[2019-10-11] MEDS ORDERED: INSULIN GLARGINE 100 UNITS/ML SQ SCH (21:29)
[2019-10-11] MEDS ORDERED: ACETAMINOPHEN 500 MG TAB PO PRN (21:29)
[2019-10-11] MEDS ORDERED: INSULIN -REGULAR HUMAN 50 UNIT/0.5 ML ML SQ SCH (21:29)
[2019-10-11] MEDS: ENOXAPARIN 40 MG/0.4 ML SQ SCH (22:11)
[2019-10-11] MEDS: NA CHLORIDE 0.9% 1,000 ML IV SCH (22:11)
[2019-10-11] MEDS: MORPHINE 2 MG/ML SYR IV PRN (22:54)
[2019-10-12 00:21] LABS: CKMB Creatine Kinase MB < 1.0 ng/mL (0.3-3.6); Creatine Phosphokinase 55 U/L (26-192); Troponin I < 0.02 ng/mL (0.0-0.045)
[2019-10-12 03:18] VITALS: BMI 29.5
[2019-10-12] MEDS: MORPHINE 2 MG/ML SYR IV PRN ×2 (05:44→11:14)
[2019-10-12] MEDS: INSULIN -REGULAR HUMAN 50 UNIT/0.5 ML ML SQ SCH ×5 (05:51→21:05)
[2019-10-12 06:30] LABS: Absolute Lymphocytes (CBC) 3.1 K/uL (0.7-4.9); MPV 9.1 fL (7.6-11.3)
[2019-10-12 08:10] LABS: BUN Blood Urea Nitrogen 13 mg/dL (7-18); Bicarbonate 29 mmol/L (21-32); CKMB Creatine Kinase MB < 1.0 ng/mL (0.3-3.6); Creatine Phosphokinase 50 U/L (26-192); Glucose Level 129 mg/dL (74-106); HDL Cholesterol 43 mg/dL (40-60); LDL Cholesterol, Calculated 63 (<130); Magnesium 1.6 mg/dL (1.8-2.4); Potassium 3.5 mmol/L (3.5-5.1); Sodium Level 142 mmol/L (136-145); Troponin I < 0.02 ng/mL (0.0-0.045)
[2019-10-12] MEDS: lisinopriL 10 MG TAB PO SCH (09:00)
[2019-10-12] MEDS ORDERED: ASPIRIN 600 MG/SUPP PR SCH (09:00)
[2019-10-12] MEDS: FOLIC ACID 1 MG TABLET PO SCH (09:00)
--- NOTE | 2019-10-12 09:15 | EKG ---
Test Date: 2019-10-11 Test Time: 16:37:53 Bakery Clerk: JIAN MEASUREMENT RESULTS: Intervals: Rate: 82 DE: 140 QRSD: 80 QT: 376 QTc: 439 [place]: P: 58 DE: 140 QRS: 24 T: 51 INTERPRETIVE STATEMENTS: Normal sinus rhythm Normal ECG Compared to ECG 06/02/2019 19:16:24 Sinus tachycardia no longer present Atrial abnormality no longer present Electronically Signed On 10-12-19 09:14:47 SHEET METAL CONTRACTOR by Ike Yun
--- NOTE | 2019-10-12 11:11 | RAD REPORT ---
EXAM DESCRIPTION: MRI - Brain W/Wo Cont - 10/12/2019 11:01 am CLINICAL HISTORY: PARESTHESIA,WEAKNESS,SLURRED SPEECH Headache, drowsiness, CVA symptomology COMPARISON: MRA Head Wo Cont dated 10/12/2019 TECHNIQUE: Multi-sequence, multiplanar MR imaging of the brain was performed with contrast. FINDINGS: No intracranial hemorrhage, hydrocephalus, or extra-axial fluid collection. No edema or sh ift of midline structures. No intracranial mass. DWI is negative for acute CVA. The midline structures are normally formed. Mastoid air cells and paranasal sinuses are clear. Post-contrast images show no abnormal enhancement to suggest tumor or infection. IMPRESSION: No acute or concerning intracranial abnormalities. No pathologic post-contrast enhancement suspected.
--- NOTE | 2019-10-12 11:15 | RAD REPORT ---
EXAM DESCRIPTION: MRI - MRA Head Wo Cont - 10/12/2019 10:00 am CLINICAL HISTORY: right sided parethesias, weakness CVA COMPARISON: Ct Stroke Brain Wo Cont dated 10/11/2019 FINDINGS: 3D noncontrast [id number] MR angiography of the [place] was performed. No aneurysm, flow-limiting stenosis or vascular malformation is seen. Forward flow seen in codominant vertebral arteries. The visualized dural venous sinuses appear patent. IMPRESSION: No significant flow abnormality of the [place] is identified.
--- NOTE | 2019-10-12 11:28 | RAD REPORT ---
EXAM DESCRIPTION: MRI - MRA Neck W/Wo Cont - 10/12/2019 11:02 am CLINICAL HISTORY: PARESTHESIA,WEAKNESS,SLURRED SPEECH CVA symptomology COMPARISON: Carotid Artery Bilateral dated 10/12/2019 FINDINGS: Contrast enhance 2D [id number] MR angiography of the neck vessels was performed. A left aortic arch is noted with normal branching pattern of the great vessels. The common carotid ar teries show patency without evidence of a stenosis. Subclavian arteries appear patent. A moderate to significant stenosis is suspected involving the left carotid bulb estimated at 70-90 % based on NASCET criteria. Mild stenosis of the right carotid bulb is suspected less than 50% based on NASCET criteria. Antegrad e flow seen in both vertebral arteries. IMPRESSION: Moderate to significant atherosclerotic stenosis left carotid bulb is suspected as detai led.
--- NOTE | 2019-10-12 11:42 | RAD REPORT ---
EXAM DESCRIPTION: USCarotid Artery Bilateral10/12/2019 9:18 am CLINICAL HISTORY: Numbness COMPARISON: None FINDINGS: The velocity of the right internal carotid artery equals 101 cm/sec. The right ICA/CCA rat io 1.5 The velocity of the left internal carotid artery equals 165 cm/sec. The left ICA/CCA ratio 1.8 Severe plaque is present within the left carotid bulb. Mild plaque within the right internal carotid artery The vertebral arteries demonstrate antegrade flow IMPRESSION: Severe plaque within the left carotid bulb estimated at approximately 70% stenosis NASCET criteria used. Mild 0-49% stenosis Moderate 50-69% stenosis Severe 70-99% stenosis
[2019-10-12] MEDS: NA CHLORIDE 0.9% 1,000 ML IV SCH ×2 (12:27→23:54)
[2019-10-12 13:30] LABS: Urine Appearance CLOUDY; Urine Bilirubin NEGATIVE (NEG); Urine Blood NEGATIVE (NEG); Urine Color YELLOW; Urine Glucose 2+ (NEG); Urine Protein NEGATIVE (NEG)
[2019-10-12 13:31] LABS: Urine Microscopic Reflex ORDER UMIC
[2019-10-12 13:41] LABS: Barbiturates NEGATIVE (NEGATIVE); Benzodiazepines NEGATIVE (NEGATIVE); Cocaine NEGATIVE (NEGATIVE); METHAMPHETAM NEGATIVE (NEGATIVE); Methadone NEGATIVE (NEGATIVE); Opiates POSITIVE (NEGATIVE); Phencyclidine NEGATIVE (NEGATIVE); THC Cannibis NEGATIVE (NEGATIVE)
--- NOTE | 2019-10-12 13:59 | P.PN ---
Subjective Date of Service: 10/12/19 Primary Care Provider: Dr. Galeano; Pain management-Dr. Schuster Chief Complaint: Left-sided weakness and paresthesias Subjective: No new changes, NPO (-will like to eat) Review of Systems 10-point ROS is otherwise unremarkable Physical Examination - Vital Signs Temperature: 96.9 F Blood Pressure: 125/55 Pulse: 71 Respirations: 16 Pulse Ox (%): 98 - Physical Exam General: Alert, In no apparent distress, Oriented x3 (slight slurred speech ) HEENT: Atraumatic, Normocephalic Neck: Supple, 2+ carotid pulse no bruit Respiratory: Clear to auscultation bilaterally, Normal air movement Cardiovascular: Normal pulses, Regular rate/rhythm, Normal S1 S2 Capillary refill: <2 Seconds Gastrointestinal: Normal bowel sounds, Soft and benign, Non-distended Integumentary: No rashes, No breakdown Neurological: Cranial nerves 3-12 intact, Other (left UE paresis power 2+/5 , slight facial droop), Abnormal speech, Abnormal tone - Studies Laboratory Data (last 24 hrs) 10/11/19 16:22: PT 11.5, INR 0.97, APTT 28.7 10/11/19 16:22: WBC 10.0, Hgb 14.1, Hct 42.3, Plt Count 260 10/11/19 16:22: Sodium 135 L, Potassium 4.0, BUN 13, Creatinine 0.87, Glucose 413 H* Imagings Data: MRI brain -no acute infarct MRA head- negative MRA NECK /CAROTID US- more than 70% stenosis of left carotid bulb Assessment & Plan - Problems (Diagnosis) (1) Diabetes mellitus Onset Date: 06/08/17 Current Visit: No Status: Acute (2) Hypertension Current Visit: No Status: Acute Qualifiers: Hypertension type: essential hypertension Qualified Code(s): I10 - Essential (primary) hypertension (3) Carotid stenosis Current Visit: No Status: Chronic Qualifiers: Laterality: left Qualified Code(s): I65.22 - Occlusion and stenosis of left carotid artery Physician Review: Patient Assessed, Agree with Above Assessment and Plan Physician Review Additional Text: Presumed left CVA - although not seen on MRI - fits with symptoms - will await neuro eval today - c/w aspirin - follow pending echo - findings of left carotid stenosis may be causing lesion , will need vascular consult - consult PT/OT HTN -controlled , will allow permissive HTN for next 24 hrs DM -on insulin sliding scale DVT prop- on lovenox Dispo - Possible SNF or transfer for endovascular procedure Critical Care: No Time Spent Managing Pts Care (In Minutes): 45
[2019-10-12 14:09] LABS: Urine Bacteria LOADED /HPF (<20); Urine Culture Reflex Order REFLEXED; Urine RBC NONE SEEN /HPF (NONE SEEN); Urine White Blood Cell Casts 0-5 /LPF (NONE SEEN)
[2019-10-12] MEDS: CEFTRIAXONE/SWI 1gm 1 GM/10 ML SYR IVP SCH (18:00)
[2019-10-12] MEDS ORDERED: ATORVASTATIN 80 MG TAB PO SCH (21:00)
[2019-10-12] MEDS: ENOXAPARIN 40 MG/0.4 ML SQ SCH (21:06)
--- NOTE | 2019-10-12 23:20 | CON ---
Reason For Consultation: Consultation called because of possible stroke. History Of Present Illness: Ms. Ruvalcaba is a 54-year-old patient with hypertension, diabetes mellitu s, who reportedly has history of TIA and dyslipidemia, comes in with left-sided face and arm paresthe jacquelyn and mild weakness. Of note, the patient reportedly has a lawsuit pending after a recent fall in a grocery store and supposedly had weakness related to that. In the event, she was seeing Nahid pereira and receiving medications for that. She said this Thursday she developed some intermittent weak ness and numbness in the left face and arm, did not immediately seek medical attention. She did come in, however, yesterday, which is day after onset of events, and was evaluated in the emergency room, found to have NIH Stroke Scale around 6 with left face and arm and leg paresthesias and mild left fa cial droop and mild left arm weakness. Head CT scan was negative. She was admitted for stroke jose angel p. Her brain MRI, however, which is done today, revealed no evidence of any acute ischemic or hemorr hagic stroke and there was no significant abnormality identified, no tumor, no infection, and no hemo rrhage. Her neck magnetic resonance angiogram was remarkable for cktcluud-iz-onjczmdezps arthroscler osis of the left carotid bulb and her carotid artery ultrasound did indicate that the left bulb was a pproximately 70% stenosed. It should be noted that the left carotid stenosis may give rise to a stro ke involving the left brain, which would produce right-sided weakness, which the patient does not hav e. The brain magnetic resonance angiogram showed no significant abnormalities in the [place] of Willi s. Her electrocardiogram showed normal sinus rhythm and is a normal study. At the time of my evaluation, the patient had a variable exam in terms of sensory loss on the left si de and strength. She was obviously not getting full effort; and when she smiled, the nasolabial fold s did not move equally well. Past Medical History: As indicated. Gout, hypothyroidism, asthma, chronic pain, and tobacco use pre viously. Allergies: NO KNOWN DRUG ALLERGIES. Home Medications: Amitriptyline 25 mg at bedtime, gabapentin 600 mg 3 times daily, losartan 100 mg d aily, Zocor 40 mg at night, aspirin 81 mg daily, [place] 10/325 every 6 hours as needed, levothyroxine 1 daily. She takes Victoza 1.5 mg subcutaneously daily, estradiol daily, Robaxin twice daily, and sh e was on amoxicillin 500 mg daily. Past Surgical History: Hysterectomy, appendectomy, , cholecystectomy, cyst removal from rig ht and left breast, right ankle surgery, right heel spurs, and bilateral knee surgery. Family History: Positive for gastrointestinal cancer in father. Heart disease, hypertension, diabet es in mother. Sister with heart disease, hypertension, cancer, and seizures. Social History: She denies alcohol use, but did smoke in the past. Review of Systems: She did have some myalgias, arthralgias, left-sided numbness and tingling, lower back pain for which she is seeing Pain Management. Otherwise, negative on a 10-point systems review. Physical Examination: Vital Signs: Blood pressure 138/64, pulse 71, temperature 97.2, respiratory rate 16, oxygen saturati on 95% on room air. Weight 173 pounds, height 5 feet 4 inches, BMI 29.5. General: Ms. Ruvalcaba is resting in bed. She is in no acute distress. HEENT: She is normocephalic, atraumatic. Sclerae are anicteric. Oropharynx is pink and moist. Neck: Supple. Chest: Clear. Heart: Regular. Extremities: No edema, cyanosis, or clubbing. Neurological: She is alert and oriented to person, place, and situation. She has a very halting hes itating speech. No huan slurring and no aphasias. The patient does have an appearance of a slight decrease of left nasolabial fold; however, she has excellent excursion with smiling. She has full vi sual bazzi to confrontation. Pupils are round, reactive to light and accommodation. Extraocular mo vements are intact. Facial sensations reports slight decreased to light touch and temperature over t he left compared to right face. Otherwise, intact in terms of tongue and palate extrusion and elevat ion respectively. Motor examination, she has giveaway weakness in the left upper extremity proximall y and distally, she has at least 4+/5 there. On the right upper extremity, 5/5 proximally and distal ly. In lower extremity, similarly so around 5- perhaps or 4+ out of 5 on the left proximal distal lo wer extremity. Right side is 5/5. Sensory exam, decreased slightly to light touch and temperature i n the left leg compared to the right side. Coordination intact in upper and lower extremities. Refl exes are depressed symmetrically in the upper and lower extremities. Gait, she will be ambulated wit h the physical therapist. Laboratory Studies: Complete blood count with differential is completely normal. Coagulation panel is normal. Chemistries are essentially unremarkable, except for slightly elevated glucose up to 129, calcium slightly low at 8.1, magnesium slightly low at 1.6. Thyroid function studies are normal. C holesterol panel shows LDL cholesterol 63, HDL cholesterol 43. Urinalysis shows that she is loaded w ith bacteria, 20-50 white blood cells, positive nitrites, 2+ glucose, 1+ esterase, and toxicology scr een is positive for opiates. Assessment: Ms. Ruvalcaba is a 54-year-old patient with reported left-sided weakness and numbness, whi ch is not matched by an MRI, which is normal. She does have a urinary tract infection, which may be a contributing factor. She reportedly had a lawsuit pending after a fall in a store and she is seein g Pain Management for chronic lower back pain. My exam is variable, which is not reliable for the pa tient having weakness and numbness on the left face, arm, and leg. Plan: 1.Continue with stroke risk modification given her risk factors for stroke including hypertension, d iabetes, reportedly prior TIA. 2.Aspirin as indicated, folic acid, aggressive management of blood sugars and continue with statin. 3.She does have left carotid stenosis, which may be handled on the outpatient basis, possibly angiop lasty with stent. 4.She may follow up in Dr. Tamayo's clinic 1 month after discharge. UMANG/CANDACE Voice ID: [id number] Report ID: [id number]
[2019-10-13 06:51] LABS: ALT/SGPT 59 U/L (12-78); AST/SGOT 66 U/L (15-37); Albumin 2.9 g/dL (3.4-5.0); Alkaline Phosphatase 85 U/L (45-117); BUN Blood Urea Nitrogen 12 mg/dL (7-18); Bicarbonate 29 mmol/L (21-32); Bilirubin Total 0.3 mg/dL (0.2-1.0); Glucose Level 140 mg/dL (74-106); Magnesium 1.9 mg/dL (1.8-2.4); Potassium 4.3 mmol/L (3.5-5.1); Sodium Level 142 mmol/L (136-145)
--- NOTE | 2019-10-13 07:41 | ECHO ---
HEIGHT: 5 ft 4 in WEIGHT: 172 lb 0 oz DATE OF STUDY: 10/12/[address]: Eusebio Barbosa DO 2-DIMENSIONAL: YES M.MODE: YES DOPPLER: YES COLOR FLOW: YES TDS: PORTABLE: DEFINITY: BUBBLE STUDY: DIAGNOSIS: LEFT SIDED WEAKNESS CARDIAC HISTORY: CATHERIZATION: NO SURGERY: NO PROSTHETIC VALVE: NO PACEMAKER: NO MEASUREMENTS (cm) DIASTOLIC (NORMALS) SYSTOLIC (NORMALS) IVSd 0.9 (0.6-1.2) LA Diam 3.1 (1.9-4.0) LVEF 68% LVIDd 4.1 (3.5-5.7) LVIDs 2.5 (2.0-3.5) %FS 38% LVPWd 1.2 (0.6-1.2) Ao Diam 2.2 (2.0-3.7) 2 DIMENSIONAL ASSESSMENT: RIGHT ATRIUM: NORMAL LEFT ATRIUM: NORMAL RIGHT VENTRICLE: NORMAL LEFT VENTRICLE: NORMAL TRICUSPID VALVE: NORMAL MITRAL VALVE: NORMAL PULMONIC VALVE: NORMAL AORTIC VALVE: NORMAL PERICARDIAL EFFUSION: NONE AORTIC ROOT: NORMAL LEFT VENTRICULAR WALL MOTION: NORMAL DOPPLER/COLOR FLOW: NORMAL COMMENTS: NORMAL 2-DIMENSIONAL ECHOCARDIOGARM WITH DOPPLER. TECHNOLOGIST: LUNA RAMIREZ
[2019-10-13 08:07] VITALS: O2SAT 98
[2019-10-13] MEDS: FOLIC ACID 1 MG TABLET PO SCH (08:33)
[2019-10-13] MEDS: lisinopriL 10 MG TAB PO SCH (08:33)
[2019-10-13] MEDS: CEFTRIAXONE/SWI 1gm 1 GM/10 ML SYR IVP SCH (08:33)
[2019-10-13] MEDS: INSULIN -REGULAR HUMAN 50 UNIT/0.5 ML ML SQ SCH ×2 (08:34→12:09)
[2019-10-13] MEDS ORDERED: ASPIRIN 81 MG CHEWABLE TABLET PO SCH (09:00)
--- NOTE | 2019-10-13 11:24 | P.DS ---
Admission Date: 10/11/19 Discharge Date: 10/13/19 Primary Care Provider: Dr. Galeano; Pain management-Dr. Schuster Disposition: DC HOME/HOME HEALTH CARE Discharge Condition: FAIR Reason for Admission: Left-sided weakness and paresthesias - Problems (1) Diabetes mellitus Onset Date: 06/08/17 Current Visit: No Status: Acute (2) Hypertension Current Visit: No Status: Acute Qualifiers: Hypertension type: essential hypertension Qualified Code(s): I10 - Essential (primary) hypertension (3) Carotid stenosis Current Visit: No Status: Chronic Qualifiers: Laterality: left Qualified Code(s): I65.22 - Occlusion and stenosis of left carotid artery Hospital Course: Hospital Course 5th JENNIFER of chemical female with past medical history of HTN,DM, chronic weakness post fall but ambulatory independently at baseline with a walker presented because of left-sided weakness. She was initially admitted for presumed CVA. Head CT did not show any abnormality. She had and MRI of brain with no acute CV findings. She also have an MRI of the head and neck as well as a carotid ultrasound that shows evidence of significant left carotid bulb stenosis. She was evaluated by neurology-Dr. Tamayo with findings equivocal for CVA vs weakness from UTI. Urine culture grew Gram-negative rods. She was started on empirical antibiotics. Her left-sided weakness is slowly improving. She is able to ambulate with minimal assist with a walker now but some mild impairment from left side weakness . She was evaluated by PT and OT while inpatient. She is be recommended to have acute inpatient rehab but patient will prefer outpatient follow up . Home PT and OT will be arranged. She has been advised to follow with vascular as outpatient for decision / intervention regarding the left carotid stenosis. Follow-up with Neurology will be arranged in 2-3 weeks. Imaging MEASUREMENTS (cm) DIASTOLIC (NORMALS) SYSTOLIC (NORMALS) IVSd 0.9 (0.6-1.2) LA Diam 3.1 (1.9-4.0) LVEF 68% LVIDd 4.1 (3.5-5.7) LVIDs 2.5 (2.0-3.5) %FS 38% LVPWd 1.2 (0.6-1.2) Ao Diam 2.2 (2.0-3.7) 2 DIMENSIONAL ASSESSMENT: RIGHT ATRIUM: NORMAL LEFT ATRIUM: NORMAL RIGHT VENTRICLE: NORMAL LEFT VENTRICLE: NORMAL TRICUSPID VALVE: NORMAL MITRAL VALVE: NORMAL PULMONIC VALVE: NORMAL AORTIC VALVE: NORMAL PERICARDIAL EFFUSION: NONE AORTIC ROOT: NORMAL LEFT VENTRICULAR WALL MOTION: NORMAL DOPPLER/COLOR FLOW: NORMAL COMMENTS: NORMAL 2-DIMENSIONAL ECHOCARDIOGARM WITH DOPPLER. Report Status: Signed EXAM DESCRIPTION: MRI - Brain W/Wo Cont - 10/12/2019 11:01 am CLINICAL HISTORY: PARESTHESIA,WEAKNESS,SLURRED SPEECH Headache, drowsiness, CVA symptomology COMPARISON: MRA Head Wo Cont dated 10/12/2019 TECHNIQUE: Multi-sequence, multiplanar MR imaging of the brain was performed with contrast. FINDINGS: No intracranial hemorrhage, hydrocephalus, or extra-axial fluid collection. No edema or shift of midline structures. No intracranial mass. DWI is negative for acute CVA. The midline structures are normally formed. Mastoid air cells and paranasal sinuses are clear. Post-contrast images show no abnormal enhancement to suggest tumor or infection. IMPRESSION: No acute or concerning intracranial abnormalities. No pathologic post-contrast enhancement suspected. EXAM DESCRIPTION: USCarotid Artery Bilateral10/12/2019 9:18 am CLINICAL HISTORY: Numbness COMPARISON: None FINDINGS: The velocity of the right internal carotid artery equals 101 cm/sec. The right ICA/CCA ratio 1.5 The velocity of the left internal carotid artery equals 165 cm/sec. The left ICA /CCA ratio 1.8 Severe plaque is present within the left carotid bulb. Mild plaque within the right internal carotid artery The vertebral arteries demonstrate antegrade flow IMPRESSION: Severe plaque within the left carotid bulb estimated at approximately 70% stenosis NASCET criteria used. Mild 0-49% stenosis Moderate 50-69% stenosis Severe 70-99% stenosis Vital Signs/Physical Exam: Temp Pulse Resp BP Pulse Ox 97 F 71 16 129/63 96 10/13/19 08:00 10/13/19 08:33 10/13/19 08:00 10/13/19 08:33 10/13/19 08:00 General: In no apparent distress, Oriented x3, Cooperative HEENT: Atraumatic, Normocephalic, PERRLA Neck: 2+ carotid pulse no bruit, JVD not distended Respiratory: Clear to auscultation bilaterally, Normal air movement Cardiovascular: No edema, Regular rate/rhythm, Normal S1 S2 Capillary refill: <2 Seconds Gastrointestinal: Normal bowel sounds, Soft and benign, Non-distended Musculoskeletal: No clubbing, No swelling Neurological: Normal speech, Cranial nerves 3-12 intact, Normal reflexes 2+, Abnormal speech (slightly slurred intially but pitch clears during conversation) , Abnormal strength (3/5 LUE ,) Laboratory Data at Discharge: WBC 9.8 K/uL (4.3-10.9) 10/12/19 05:26 Hgb 13.2 g/dL (12.0-15.0) 10/12/19 05:26 Hct 38.0 % (36.0-45.0) 10/12/19 05:26 Plt Count 228 K/uL (152-406) 10/12/19 05:26 PT 11.5 SECONDS (9.5-12.5) 10/11/19 16:22 INR 0.97 10/11/19 16:22 APTT 28.7 SECONDS (24.3-36.9) 10/11/19 16:22 Sodium 142 mmol/L (136-145) 10/13/19 05:33 Potassium 4.3 mmol/L (3.5-5.1) 10/13/19 05:33 BUN 12 mg/dL (7-18) 10/13/19 05:33 Creatinine 0.46 mg/dL (0.55-1.3) L 10/13/19 05:33 Glucose 140 mg/dL (74-106) H 10/13/19 05:33 Magnesium 1.9 mg/dL (1.8-2.4) 10/13/19 05:33 Total Bilirubin 0.3 mg/dL (0.2-1.0) 10/13/19 05:33 AST 66 U/L (15-37) H 10/13/19 05:33 ALT 59 U/L (12-78) 10/13/19 05:33 Alkaline Phosphatase 85 U/L (45-117) 10/13/19 05:33 Troponin I < 0.02 ng/mL (0.0-0.045) 10/12/19 05:26 Triglycerides 147 mg/dL (<150) 10/12/19 05:26 Cholesterol 135 mg/dL (<200) 10/12/19 05:26 HDL Cholesterol 43 mg/dL (40-60) 10/12/19 05:26 Cholesterol/HDL Ratio 3.14 10/12/19 05:26 Home Medications: Simvastatin [Zocor*] 40 mg PO DAILY 04/10/16 Hydrocodone/Acetaminophen [Hydrocodone-Acetamin 10-325 mg] 1 tab PO Q6H PRN 09/23 Victoza 18mg/3ml/Inj Novno 1.8 mg SQ DAILY 06/07/17 estradioL [Estradiol] 1 tab PO DAILY 06/07/17 Albuterol Sulfate [Albuterol Sulfate Hfa] 2 puff IH BID PRN 10/11/19 Amitriptyline HCl 25 mg PO DAILY 10/11/19 Buspirone HCl [Buspar] 10 mg PO DAILY 10/11/19 Esomeprazole Magnesium 40 mg PO DAILY 10/11/19 Gabapentin [Gralise] 600 mg PO DAILY 10/11/19 Insulin Degludec [Tresiba Flextouch U-200] 85 units SQ BEDTIME 10/11/19 Levothyroxine Sodium 50 mcg PO [id number] 10/11/19 Losartan/Hydrochlorothiazide [Losartan-Hctz 100-25 mg Tab] 1 tab PO DAILY Lubiprostone [Amitiza*] 24 mcg PO DAILY 10/11/19 Magnesium Oxide [Magnesium] 400 mg PO DAILY 10/11/19 Meloxicam 15 mg PO DAILY 10/11/19 Montelukast Sodium [Singulair] 10 mg PO DAILY 10/11/19 Plecanatide [Trulance] 3 mg PO DAILY 10/11/19 Sitagliptin Phosphate [Januvia] 50 mg PO DAILY 10/11/19 methocarbamoL [Methocarbamol] 1 tab PO BID 10/11/19 Amoxicillin/Potassium Clav [Augmentin 875-125 Tablet] 1 each PO BID #14 tablet 10/13/19 New Medications: Amoxicillin/Potassium Clav [Augmentin 875-125 Tablet] 1 each PO BID #14 tablet Patient Discharge Instructions: Continue ambulation with walker for now. Follow home PT and OT evaluation. Follow with her primary care physician in 3- 5 days Diet: ADA Activity: Fall precautions Followup: Ketan Tamayo MD [ASSOCIATE-ACTIVE - CAN ADMIT] - 1-2 Weeks Time spent managing pt's care (in minutes): 37
[2019-10-13] MEDS ORDERED: Magnesium Sulfate 2gm IVPB 2 G/50 ML BAG IV ONE (11:55)
[2019-10-13 12:07] VITALS: BP 140/67; TEMP 96.7
== END 2019-10-13 12:24 | disposition home or self-care (01) ==
LOC: ER 16:09 → ERHOLD 17:45 → 4TH 20:45
PROVIDERS: ADMIT Family Medicine; ATTEND Internal Medicine
DX: I65.22 Occlusion and stenosis of left carotid artery (principal); N39.0 Urinary tract infection, site not specified; E11.65 Type 2 diabetes mellitus with hyperglycemia; J45.909 Unspecified asthma, uncomplicated; E03.9 Hypothyroidism, unspecified; M10.9 Gout, unspecified; I10 Essential (primary) hypertension; E78.5 Hyperlipidemia, unspecified; G89.29 Other chronic pain; Z87.891 Personal history of nicotine dependence
CPT/HCPCS: 93005; 93306; 87088; 85025 ×2; 87086; 80048 ×2; 36415 ×2; 83735 ×2; 82550 ×2; 85610; 80061; 82947 ×9; 80307 ×8; 85730; 84436; 84443; 83036; 84484 ×3; 82553 ×2; 80053; 70450; 71045; 93880; 70553; 70544; 70549; 97110; 92610; 97112 ×2; 97116 ×2; 97161; 97165; 97530; 96372; 99285; A9577; J1650 ×2; J2270 ×3; J3475; J0696 ×2; J7030 ×3; G0378 ×4; 81003; 81015

== ENCOUNTER 2019-11-01 14:45 | Emergency (ER) | payer OTHER ==
[2012-02-11 10:03] VITALS: BP 172/79
--- OUTSIDE RECORDS SUMMARY | 2019-11-01 15:00 | XMS REPORT ---
:1965 [facility] Care Team Providers Name Role Phone [...] Start End Status Dosage System Date Date [facility] 39159506240 50 MG Orally Apr 24, Active 1 tablet Once a day for 2019 diabetes Lancets [facility] 22802800845 - as directed May 05, Active as directed test BS once 2019 (Dispense daily lancets formulary to insurance) Victoza [facility] 43255686632 18 MG/3ML Active as directed Subcutaneous 1.8 mg once daily in am Esomeprazole ND 96114963353 40 MG Orally Active 1 capsule Magnesium Once a day [facility] 88849944198 - May 30, Active as directed 2019 ProAir HFA [facility] 07396709094 108 (90 Base) Active 2 puffs as MCG/ACT needed for Inhalation sob/wheezin every 4-6 hrs g Magnesium [facility] 11339078813 400 MG Orally Active as directed Crestor [facility] 10485018816 20 MG Orally Apr 26, Active 1 tablet Once a day 2019 Tresiba ND 92211709987 200 UNIT/ML Active as directed FlexTouch Subcutaneous 85 unts in am Contour Next ND 50038998117 w/Device May 30, Active as directed Monitor 2019 Flonase [facility] 89416987012 2 sprays per February 17, Active as directed nostril once a 2019 day FreeStyle [place] [facility] 66377366611 - Subcutaneous February 15, Active as directed 14 Day Sensor Check BS 3x 2019 daily and prn Ondansetron HCl ND 62912083552 4 MG Orally Active 1 tablet Once a day Albuterol ND 06797310194 Twice a day Active 2 puffs by as needed mouth Hydrocodone-Acet ND 40795454953 7.5-325 MG Active 1 tablet as aminophen Orally tid needed Contour testing ND 0 N/S prick Apr 26, Active strip strips finger tid 2019 Blood Glucose [facility] 59481509634 w/Device as May 05, Active as directed Monitor System directed Test 2019 (Dispense BS once daily Blood Glucose Monitor Formulary to Insurance) BusPIRone HCl [facility] 75302504329 10 MG Orally Active 1 tablet Twice a day Simvastatin ND 28816737350 10 MG Orally Active 1 tablet in Once a day the evening Flonase Allergy ND 69296304036 50 MCG/ACT Active 1 spray in Relief Nasally Twice a each day nostril Pen Rake [facility] 39357839268 32G X 6 MM February 25, Active as directed 2018 Estradiol ND 53986501360 0.5 MG Orally Active 1 tablet Once a day Losartan ND 68395888453 100-25 MG Active 1 tablet Potassium-HCTZ Orally Once a day Amitiza [facility] 18347758868 24 MCG Orally Active 1 capsule Once a day with food Victoza [facility] 41809180300 18 MG/3ML February 23November Active 1.8 units Subcutaneous 2018, once daily 2019 Levothyroxine ND 99411145454 50 MCG Orally Active 1 tablet on Sodium Once a day an empty stomach in the morning Trulance [facility] 98594870886 3 MG Orally Active 1 tablet Once a day Blood Glucose ND 0 as directed Apr 28, Active as directed Test Strip Test BS three 2018 (DISPENSE times daily BLOOD GLUCOSE TEST STRIPS FOR BS MONITOR OF RECORD ) Montelukast ND 41339870895 10 MG Orally Active 1 tablet Sodium Once a day Meloxicam ND 93336842231 15 MG Orally Active 1 tablet as Once a day needed for pain; take with foot Pantoprazole ND 08920671830 40 MG Orally Active 1 tablet Sodium Once a day Tresiba ND 99145781022 200 UNIT/ML February 23 Active 85 units FlexTouch Subcutaneous 2018 daily Azithromycin ND 09796004205 250 MG Orally 2 Aug 16, Aug 21, Active as directed tablets on 2018 2019 day#1, then 1 tablet daily for remaining 4 days FreeStyle [place] ND 06148732536 - as directed February 15, Active as directed [place] Check BS 3x 2019 daily and prn Results No Known Results Summary Purpose eClinicalWorks Submission
--- OUTSIDE RECORDS SUMMARY | 2019-11-01 15:00 | XMS REPORT ---
:1965 [facility] Team Providers Name Role Phone Tawana [...] End Status Dosage System Date Date Victoza [facility] 24021106345 18 MG/3ML Active as directed Subcutaneous 1.8 mg once daily in am Pen [place] [facility] 89153552740 32G X 6 MM February 25, Active as directed 2019 Tresiba [facility] 57238062956 200 UNIT/ML February 23, Active 85 units FlexTouch Subcutaneous 2018 daily Estradiol ND 74441867067 0.5 MG Orally Active 1 tablet Once a day FreeStyle Petrona [facility] 74847695739 - Subcutaneous February 15, Active as directed 14 Day Sensor Check BS 3x 2018 daily and prn Magnesium [facility] 61546902916 400 MG Orally Active as directed Flonase [facility] 85344765227 2 sprays per February 17, Active as directed nostril once a 2019 day Tresiba [facility] 74037242509 200 UNIT/ML Active as directed FlexTouch Subcutaneous 85 unts in am Esomeprazole [facility] 53074558552 40 MG Orally Active 1 capsule Magnesium Once a day Crestor [facility] 51315839626 20 MG Orally Apr 26, Active 1 tablet Once a day 2019 Pantoprazole [facility] 87038570448 40 MG Orally Active 1 tablet Sodium Once a day FreeStyle Petrona [facility] 08770703861 - as directed February 15, Active as directed [place] Check BS 3x 2018 daily and prn Flonase Allergy [facility] 13671638697 50 MCG/ACT Active 1 spray in Relief [place]ally Twice a each day nostril Ondansetron HCl [facility] 89682451340 4 MG Orally Active 1 tablet Once a day Hydrocodone-Acet [facility] 38180271196 7.5-325 MG Active 1 tablet as aminophen Orally tid needed Contour testing ND 0 N/S prick Apr 26, Active strip strips finger tid 2018 Januvia [facility] 39297225117 50 MG Orally Apr 24, Active 1 tablet Once a day for 2018 diabetes BusPIRone HCl [facility] 81769309226 10 MG Orally Active 1 tablet Twice a day Montelukast ND 80401760853 10 MG Orally Active 1 tablet Sodium Once a day Albuterol ND 46505107377 Twice a day Active 2 puffs by as needed mouth Victoza [facility] 12284740460 18 MG/3ML February 23November Active 1.8 units Subcutaneous 2018 15, once daily 2019 Trulance [facility] 10304150347 3 MG Orally Active 1 tablet Once a day Losartan ND 14635719984 100-25 MG Active 1 tablet Potassium-HCTZ Orally Once a day Amitiza ND 40449005659 24 MCG Orally Active 1 capsule Once a day with food Blood Glucose ND 0 as directed Apr 28, Active as directed Test Strip Test BS three 2018 (DISPENSE times daily BLOOD GLUCOSE TEST STRIPS FOR BS MONITOR OF RECORD ) Levothyroxine ND 84845854802 50 MCG Orally Active 1 tablet on Sodium Once a day an empty stomach in the morning Methocarbamol ND 15457683889 750 MG Orally Jul 15, Aug 14, Active 1 tablet as Twice daily 2018 2018 needed for muscle cramping/pa in Lancets [facility] 56046940351 - as directed May 05, Active as directed test BS once 2018 (Dispense daily lancets formulary to insurance) Simvastatin ND 77250473844 10 MG Orally Active 1 tablet in Once a day the evening Meloxicam ND 49560710696 15 MG Orally Active 1 tablet as Once a day needed for pain; take with foot Lancets [facility] 78179623581 - May 30, Active as directed 2019 Contour Next ND 74094333900 w/Device May 30, Active as directed Monitor 2019 Blood Glucose ND 80886566478 w/Device as May 05, Active as directed Monitor System directed Test 2018 (Dispense BS once daily Blood Glucose Monitor Formulary to Insurance) ProAir HFA [facility] 06463902999 108 (90 Base) Active 2 puffs as MCG/ACT needed for Inhalation SOB/wheezin every 4-6 hrs g Results No Known Results Summary Purpose eClinicalWorks Submission
--- OUTSIDE RECORDS SUMMARY | 2019-11-01 15:00 | XMS REPORT ---
:1965 [facility] Team Providers Name Role [...] Status Dosage System Date Date BusPIRone HCl [facility] 49323426022 10 MG Orally Active 1 tablet Twice a day Trulance [facility] 53441318522 3 MG Orally Active 1 tablet Once a day Esomeprazole [facility] 66414360752 40 MG Orally Active 1 capsule Magnesium Once a day Pen [place] [facility] 59830039471 32G X 6 MM February 25, Active as directed 2019 Victoza [facility] 70334373242 18 MG/3ML Active as directed Subcutaneous 1.8 mg once daily in am Blood Glucose [facility] 94015799208 w/Device as May 05, Active as directed Monitor System directed Test 2018 (Dispense BS once daily Blood Glucose Monitor Formulary to Insurance) Meloxicam [facility] 80636069458 15 MG Orally Active 1 tablet as Once a day needed for pain; take with foot Ondansetron HCl [facility] 39540894226 4 MG Orally Active 1 tablet Once a day Hydrocodone-Acet [facility] 79533517531 7.5-325 MG Active 1 tablet as aminophen Orally tid needed Tresiba [facility] 59343061414 200 UNIT/ML Active as directed FlexTouch Subcutaneous 85 unts in am Montelukast [facility] 67793104582 10 MG Orally Active 1 tablet Sodium Once a day Lancets [facility] 00118599999 - as directed May 05, Active as directed test BS once 2019 (Dispense daily lancets formulary to insurance) Levothyroxine [facility] 67118029010 50 MCG Orally Active 1 tablet on Sodium Once a day an empty stomach in the morning Simvastatin [facility] 16218625060 10 MG Orally Active 1 tablet in Once a day the evening ProAir HFA [facility] 79469187513 108 (90 Base) Active 2 puffs as MCG/ACT needed for Inhalation sob/wheezin every 4-6 hrs g Crestor [facility] 96636713309 20 MG Orally Active 1 tablet Once a day Alprazolam [facility] 50783416132 0.5 MG Orally Dec 20, Active 1-2 tablets Twice a day 2019 as needed for anxiety/sle ep Estradiol [facility] 16645301171 0.5 MG Orally Active 1 tablet Once a day Magnesium [facility] 41443396923 400 MG Orally Active as directed Losartan [facility] 70267149391 100-25 MG Active 1 tablet Potassium-HCTZ Orally Once a day Jarrelluvia [facility] 37232281334 50 MG Orally Apr 24, Active 1 tablet Once a day for 2018 diabetes Amitiza [facility] 89144572549 24 MCG Orally Active 1 capsule Once a day with food Contour testing [facility] 0 N/S prick Apr 26, Active strip strips finger tid 2018 Albuterol [facility] 72434578775 Twice a day Active 2 puffs by as needed mouth Results No Known Results Summary Purpose eClinicalWorks Submission
--- OUTSIDE RECORDS SUMMARY | 2019-11-01 15:01 | XMS REPORT ---
:1965 [facility] Team Providers Name Role Phone Tawana Ramirez Provider Role Unavailable Allergies No Known Allergies Problems Problem Type Condition Code Onset Dates Condition Status Problem Hoarseness R49.0 Active Problem High cholesterol E78.00 Active Problem Depression with anxiety F41.8 Active Problem Swelling R60.9 Active Problem Chronic pain syndrome G89.4 Active Problem Sinus problem J34.9 Active Problem Acquired hypothyroidism E03.9 Active Problem Diabetes E11.9 Active Problem Essential hypertension I10 Active Problem Asthma J45.909 Active Problem Shortness of breath R06.02 Active Problem Sore throat J02.9 Active Problem Anxiety F41.9 Active Problem Dizziness R42 Active Problem Status post fall Z91.81 Active Problem Imbalance R26.89 Active Problem Atherosclerosis of both carotid I65.23 Active arteries Problem Stenosis of left carotid artery I65.22 Active Problem Muscle cramping R25.2 Active Problem Low back pain M54.5 Active Problem High blood pressure I10 Active Problem Status post CVA Z86.73 Active Problem Polyarthralgia M25.50 Active Problem Difficulty sleeping G47.9 Active Problem Lumbago with sciatica, right side M54.41 Active Problem Stenosis of right carotid artery I65.21 Active Problem Acute stress reaction F43.0 Active Problem Gastroesophageal reflux disease, K21.9 Active esophagitis presence not specified Problem Acute right-sided thoracic back M54.6 Active pain Problem Chronic obstructive pulmonary J44.9 Active disease, unspecified COPD type Problem Exposure to mold Z77.120 Active Problem Uncontrolled type 2 diabetes E11.65 Active mellitus with hyperglycemia Problem Right leg pain M79.604 Active Problem Asthma, unspecified asthma J45.909 Active severity, unspecified whether complicated, unspecified whether persistent Problem Other chronic pain G89.29 Active Problem Abnormal urine odor R82.90 Active Problem Wheezing R06.2 Active Problem Hyperlipidemia, unspecified E78.5 Active hyperlipidemia type Problem Itching L29.9 Active Problem Chest tightness R07.89 Active Problem Non-intractable vomiting with R11.2 Active nausea, unspecified vomiting type Medications No Known Medications Results No Known Results Summary Purpose eClinicalWorks Submission
--- OUTSIDE RECORDS SUMMARY | 2019-11-01 15:01 | XMS REPORT ---
:1965 [facility] Team Providers Name Role Phone Tawana [...] J45.909 Active Problem Anxiety F41.9 Active Problem Muscle cramping R25.2 Active Problem Low back pain M54.5 Active Problem Polyarthralgia M25.50 Active Problem Acute right-sided thoracic back M54.6 Active pain Problem Exposure to mold Z77.120 Active Problem Right leg pain M79.604 Active Problem Other chronic pain G89.29 Active Problem Wheezing R06.2 Active Problem Itching L29.9 Active Problem Chest tightness R07.89 Active Problem Non-intractable vomiting with R11.2 Active nausea, unspecified vomiting type Assessment Depression with anxiety F41.8 Active Assessment Low back pain M54.5 Active Assessment Other chronic pain G89.29 Active Assessment Acquired hypothyroidism E03.9 Active Assessment Chronic obstructive pulmonary J44.9 Active disease, unspecified COPD type Assessment Polyarthralgia M25.50 Active Assessment Chronic pain syndrome G89.4 Active Assessment Asthma, unspecified asthma J45.909 Active severity, unspecified whether complicated, unspecified whether persistent Assessment Gastroesophageal reflux disease, K21.9 Active esophagitis presence not specified Assessment Uncontrolled type 2 diabetes E11.65 Active mellitus with hyperglycemia Assessment Essential hypertension I10 Active Assessment Follow-up exam Z09 Active Assessment Acute UTI N39.0 Active Problem Shortness of breath R06.02 Active Assessment Hyperlipidemia, unspecified E78.5 Active hyperlipidemia type Problem Sore throat J02.9 Active Problem Dizziness R42 Active Problem Status post fall Z91.81 Active Problem Imbalance R26.89 Active Problem Atherosclerosis of both carotid I65.23 Active arteries Problem Stenosis of left carotid artery I65.22 Active Problem Status post CVA Z86.73 Active Problem High blood pressure I10 Active Problem Difficulty sleeping G47.9 Active Problem Lumbago with sciatica, right side M54.41 Active Assessment Stenosis of left carotid artery I65.22 Active Problem Stenosis of right carotid artery I65.21 Active Assessment Atherosclerosis of both carotid I65.23 Active arteries Problem Acute stress reaction F43.0 Active Assessment Status post CVA Z86.73 Active Problem Gastroesophageal reflux disease, K21.9 Active esophagitis presence not specified Problem Chronic obstructive pulmonary J44.9 Active disease, unspecified COPD type Problem Uncontrolled type 2 diabetes E11.65 Active mellitus with hyperglycemia Problem Asthma, unspecified asthma J45.909 Active severity, unspecified whether complicated, unspecified whether persistent Problem Abnormal urine odor R82.90 Active Problem Hyperlipidemia, unspecified E78.5 Active hyperlipidemia type Medications Medication Code Code Instructions Start End Status Dosage System Date Date Pen [place] [facility] 89713091041 32G X 6 MM February 25, Active as directed [address] [facility] 0 N/S prick Apr 26, Active strip strips finger tid [address] [facility] 68138813613 200 UNIT/ML Active as directed FlexTouch Subcutaneous 85 unts in am Victoza [facility] 28973415473 18 MG/3ML Jul 20, Active as directed Subcutaneous 2020 1.8 mg once daily in am Januvia [facility] 95273204909 50 MG Orally Apr 24, Active 1 tablet Once daily for [address] [facility] 10503013254 50 MCG Orally Active 1 tablet on Sodium Once a day an empty stomach in the morning Amitiza [facility] 79370971968 24 MCG Orally Active 1 capsule Once a day with food Meloxicam [facility] 59150394306 15 MG Orally Active 1 tablet as Once a day needed for pain; take with foot Blood Glucose [facility] 98934486828 w/Device as May 05, Active as directed Monitor System directed Test 2018 (Dispense BS once daily Blood Glucose Monitor Formulary to Insurance) Ondansetron HCl [facility] 19890574898 4 MG Orally Active 1 tablet Once a day Esomeprazole [facility] 35647322580 40 MG Orally Active 1 capsule Magnesium Once a day Losartan [facility] 82661383757 100-25 MG Active 1 tablet Potassium-HCTZ Orally Once a day Trulance [facility] 13463137291 3 MG Orally Active 1 tablet Once a day Hydrocodone-Acet ND 35773345221 7.5-325 MG Active 1 tablet as aminophen Orally tid needed Simvastatin ND 37731521538 10 MG Orally Active 1 tablet in Once a day the evening Alprazolam [facility] 04514886258 0.5 MG Orally Aug 26, Active 1-2 tablets Twice a day 2019 as needed for anxiety/sle ep Magnesium [facility] 12450818747 400 MG Orally Active as directed Albuterol [facility] 48319817630 Twice a day Active 2 puffs by as needed mouth ProAir HFA [facility] 72917039911 108 (90 Base) Active 2 puffs as MCG/ACT needed for Inhalation SOB/wheezin every 4-6 hrs g Estradiol ND 23891219284 0.5 MG Orally Active 1 tablet Once a day Crestor [facility] 68533672276 20 mg Orally Active 1 tablet Once a day Lancets [facility] 39121447014 - as directed May 05, Active as directed test BS once 2019 (Dispense daily [facility]) Montelukast [facility] 87907562488 10 MG Orally Active 1 tablet Sodium Once a day BusPIRone HCl [facility] 93348486043 10 MG Orally Active 1 tablet Twice a day Results No Known Results Summary Purpose eClinicalWorks Submission
--- OUTSIDE RECORDS SUMMARY | 2019-11-01 15:01 | XMS REPORT ---
:1965 [facility] Care Team Providers Name Role Phone Tawana [...]
--- OUTSIDE RECORDS SUMMARY | 2019-11-01 15:01 | XMS REPORT ---
:1965 Author Organization [facility] Address [address] [place] [address] Care Team Providers Name Role Phone Unavailable Unavailable Unavailable Problems This patient has no known problems. Allergies, Adverse Reactions, Alerts This patient has no known allergies or adverse reactions. Medications This patient has no known medications.
[2019-11-01 15:25] LABS: Basophils % 1.3 % (0-1.3); Hematocrit 43.5 % (36.0-45.0); Lymphocytes % 24.2 % (15.3-44.8); MPV 8.8 fL (7.6-11.3); RBC Red Blood Cell Count 4.82 M/uL (3.86-4.86)
[2019-11-01 15:28] LABS: Protime INR 0.98
[2019-11-01 15:51] LABS: ALT/SGPT 18 U/L (12-78); AST/SGOT 13 U/L (15-37); Alkaline Phosphatase 80 U/L (45-117); BUN Blood Urea Nitrogen 29 mg/dL (7-18); Bicarbonate 26 mmol/L (21-32); Bilirubin Direct < 0.1 mg/dL (0-0.2); Bilirubin Total 0.3 mg/dL (0.2-1.0); Magnesium 1.8 mg/dL (1.8-2.4); NT PRO-BNP 23 pg/mL (<125); Protein, Total 8.1 g/dL (6.4-8.2); Sodium Level 130 mmol/L (136-145); Troponin (Emerg Dept Use Only) < 0.02 ng/mL (0.0-0.045)
[2019-11-01 15:57] LABS: Glucose Level 552 mg/dL (74-106)
--- NOTE | 2019-11-01 15:57 | RAD REPORT ---
EXAM DESCRIPTION: CT - Head Brain Wo Cont - 11/01/2019 3:35 pm CLINICAL HISTORY: SLURRED SPEECH, dizziness, history of breast cancer COMPARISON: Ct Stroke Brain Wo Cont dated 10/11/2019 TECHNIQUE: Axial 5 mm thick images of the head were obtained without IV contrast. All CT scans are performed using dose optimization technique as appropriate and may include automated exposure control or mA/KV adjustment according to patient size. FINDINGS: No intracranial hemorrhage, mass, edema or shift of mid-line structures. No acute infarcti on changes seen. No abnormal extra-axial fluid collections. Ventricles are normal. Mastoid air cells and visualized portions of the paranasal sinuses are clear. No acute bony findings. Adenoid tissues are prominent but similar to comparison. IMPRESSION: Negative non-contrast CT head examination. Punctate metastatic lesions and small areas of ischemic injury are potentially occult on CT imaging. Acute CVA findings can be further addressed with MR imaging as clinical findings warrant.
[2019-11-01] MEDS ORDERED: INSULIN -REGULAR HUMAN 50 UNIT/0.5 ML ML ONE (16:05)
[2019-11-01] MEDS ORDERED: NA CHLORIDE 0.9% 1,000 ML ONE (16:05)
[2019-11-01] MEDS ORDERED: FOLIC ACID 1 MG TABLET ONE (16:19)
[2019-11-01] MEDS ORDERED: MECLIZINE HCL 12.5 MG TAB ONE (16:19)
[2019-11-01] MEDS ORDERED: ASPIRIN 81 MG CHEWABLE TABLET ONE (16:19)
--- NOTE | 2019-11-01 16:36 | RAD REPORT ---
EXAM DESCRIPTION: RAD - Chest Single View - 11/01/2019 3:25 pm CLINICAL HISTORY: dizziness COMPARISON: Chest Single View dated 10/11/2019 TECHNIQUE: AP portable chest image was obtained 11/01/2019 3:25 pm . FINDINGS: No focal mass or consolidation. Interstitial pattern is similar or fractionally less than prior imaging. Very minimal peribronchial thickening seen. Heart and vasculature are normal. No measu rable pleural effusion and no pneumothorax. No acute bony abnormality seen. No acute aortic findings suspected. IMPRESSION: No focal mass or consolidation. Minimal viral infiltrate not excluded.
--- NOTE | 2019-11-01 18:25 | RAD REPORT ---
EXAM DESCRIPTION: MRI - Brain W/Wo Cont - 11/01/2019 5:55 pm CLINICAL HISTORY: dizziness; weakness COMPARISON: MRA Head Wo Cont dated 11/01/2019; Head Brain Wo Cont dated 11/01/2019; MRA Neck W/Wo Cont dated 11/01/2019 TECHNIQUE: Sagittal and axial T1-weighted images were obtained. Axial PD/heavily T2-weighted and T2- FLAIR images were obtained along with axial DWI/ADC mapping sequences. Coronal heavily T2 weighted s equence obtained. Axial and coronal post-contrast T1-weighted images were also obtained. A 17 ml Mul tihance contrast following utilized. FINDINGS: No intracranial hemorrhage, mass or acute infarction. There is no edema or shift of midli ne structures. No extra-axial fluid collections. [place]-matter/white matter junction is preserved. Sig nal voids are seen as a normal finding in the major intracranial vessels. No measurable atrophy or ch ronic ischemic change. Post-contrast images show normal enhancement. No dural thickening. Mastoid air cells and paranasal sinuses are clear. IMPRESSION: No acute infarction, metastatic disease or other acute intracranial finding.
--- NOTE | 2019-11-01 18:28 | RAD REPORT ---
EXAM DESCRIPTION: MRI - MRA Head Wo Cont - 11/01/2019 5:55 pm CLINICAL HISTORY: Weakness, dizziness, stroke-like symptoms COMPARISON: MRI brain same date, CT head same date TECHNIQUE: Axial and coronal 3D [id number] image acquisition was performed. 3D rotational images were generated with source and reconstruction images reviewed. Horizontal and vertical axis rotation al views generated using MIP protocol. FINDINGS: No aneurysm or vascular malformation. Major venous sinuses are patent. No vasculitis, diss ection or significant atherosclerotic change. Vertebrobasilar vessels are mildly tortuous. IMPRESSION: MRA head examination showing no significant finding.
--- NOTE | 2019-11-01 18:31 | RAD REPORT ---
EXAM DESCRIPTION: MRI - MRA Neck W/Wo Cont - 11/01/2019 5:55 pm CLINICAL HISTORY: Dizziness, weakness, stroke-like symptoms COMPARISON: MRA neck October 12 TECHNIQUE: MR angiography of the cervical vasculature performed. Coronal imaging plane acquisition u tilized. A 17 MultiHance contrast volume was utilized. Coronal reformatted images were generated and reviewed. Vertical axis 3D rotational projections obtained using maximum intensity projection protoco l. FINDINGS: No aortic arch abnormalities identified. No great vessel or vertebral artery origins steno ses seen. Bilateral common carotid arteries show no significant disease. No significant stenosis at t he origin of the right internal carotid artery and more distally the right internal carotid artery is unremarkable. There is a bandlike stenosis of the origin of the left internal carotid artery approxi mately 50%. This matches the short interval October 12 study. No dissection has developed. No new fin ding in the left ICA circulation. Vertebral arteries are codominant with no suspicious findings. IMPRESSION: Bandlike 50% stenosis origin of the left internal carotid artery similar to October 12. No new finding since October 12 imaging.
--- NOTE | 2019-11-01 23:24 | ER ---
Nurse's Notes [facility] Name: Charlotte Ruvalcaba Age: 54 yrs Sex: Female : 1965 Arrival Date: 11/01/2019 Time: 14:47 Bed 20 Private MD: Diagnosis: Dizziness and giddiness;Diabetes mellitus due to underlying condition with hyperglycemia;Occlusion and stenosis of left carotid artery Presentation: 11/01 14:48 Presenting complaint: Patient states: dizziness since 10/10/19, states she hasn't been sv feeling good and she is waiting for her surgeon from [place] to call her for surgery. Was told she has a blockage in her carotids with the left greater than the right. "My speech is slurred again from the 3rd." Stated she noticed it more slurred yesterday and today her BS read high. Transition of care: patient was not received from another setting of care. Onset of symptoms was October 10, 2019. Care prior to arrival: None. 14:48 Method Of Arrival: Ambulatory sv 14:48 Acuity: RASHAD 2 sv 14:48 Initial Sepsis Screen: Does the patient meet any 2 criteria? No. Patient's initial sv sepsis screen is negative. Does the patient have a suspected source of infection? No. Patient's initial sepsis screen is negative. 18:00 Risk Assessment: Do you want to hurt yourself or someone else? Patient reports no tw2 desire to harm self or others. Triage Assessment: 14:48 General: Appears in no apparent distress. uncomfortable, Behavior is calm, cooperative. sv Neuro: Level of Consciousness is awake, alert, obeys commands, Oriented to person, place, time, situation, Speech is slurred, Reports dizziness. Respiratory: Respiratory effort is even, unlabored. Derm: Skin is pink, warm \\T\\ dry. Historical: - Allergies: 14:49 NKDA; sv - Home Meds: 16:40 albuterol sulfate 90 mcg/actuation inhalation HFAA 2 puffs twice daily as needed tw2 [Active]; Flonase 50 mcg/actuation Nasal spsn 1 spray 2 times per day [Active]; meloxicam 15 mg oral tab 1 tab once daily [Active]; buspirone 10 mg Oral tab [Active]; esomeprazole magnesium 40 mg Oral cpDR 1 cap once daily [Active]; ondansetron HCl 4 mg Oral tab 1 tabs twice a day [Active]; Amitiza 24 mcg Oral cap 1 cap 2 times per day [Active]; magnesium oxide 400 mg Oral tab daily [Active]; estradiol 0.5 mg Oral tab 1 tab once daily [Active]; levothyroxine 50 mcg tab 1 tab once daily [Active]; simvastatin 10 mg Oral tab 1 tab once daily [Active]; losartan-hydrochlorothiazide 100-25 mg Oral tab 1 tab once daily [Active]; pantoprazole 40 mg Oral TbEC 1 tab once daily [Active]; montelukast 10 mg oral tab 1 tab once daily [Active]; Trulance 3 mg by mouth PO daily [Active]; Tresiba FlexTouch U-100 100 unit/mL (3 mL) subcutaneous inpn 85 Units [Active]; victoza 3-tita SQ 1.8 mg daily [Active]; 18:44 hydrocodone-acetaminophen 10-325 mg Oral tab 1 tab every 6 hours, prn for chronic pain tw2 [Active]; - PMHx: 14:49 Asthma; breast cancer; Gout; chronic pain, sees pain doctor; COPD; Diabetes - IDDM; sv Hypertension; Hypothyroidism; - Immunization history:: Adult Immunizations. - Coronavirus screen:: The patient has NOT traveled to [place] in the past 14 days. - Social history:: Smoking status: . - Ebola Screening: : Patient denies travel to an Ebola-affected area in the 21 days before illness onset. Screenin:14 Abuse screen: Denies threats or abuse. Nutritional screening: No deficits noted. tw2 Tuberculosis screening: No symptoms or risk factors identified. Fall Risk None identified. Assessment: 14:58 Reassessment: Informed Dr Pinto of the reason for visit and s/s of the pt. Informed sv of BS reading HIGH. He gave me orders for labs and a CT of the head. 15:00 General: Appears in no apparent distress. obese, well groomed, Behavior is calm, tw2 cooperative, appropriate for age. Pain: Denies pain. Neuro: Level of Consciousness is awake, alert, obeys commands, Oriented to person, place, time, situation, Reports dizziness. Cardiovascular: Heart tones S1 S2 Patient's skin is warm and dry. Respiratory: Airway is patent Respiratory effort is even, unlabored, Respiratory pattern is regular, symmetrical, Breath sounds are clear bilaterally. GI: No signs and/or symptoms were reported involving the gastrointestinal system. Abdomen is round non-distended, obese, Bowel sounds present X 4 quads. : No signs and/or symptoms were reported regarding the genitourinary system. EENT: No signs and/or symptoms were reported regarding the EENT system. Derm: No signs and/or symptoms reported regarding the dermatologic system. Musculoskeletal: Range of motion: intact in all extremities. 15:18 Reassessment: provider at bedside at this time. tw2 15:40 Reassessment: pt back from CT at this time, NAD, provider at bedside. tw2 16:00 Reassessment: Patient appears in no apparent distress at this time. No changes from tw2 previously documented assessment. Patient and/or family updated on plan of care and expected duration. Pain level reassessed. Patient is alert, oriented x 3, equal unlabored respirations, skin warm/dry/pink. 17:03 Reassessment: pt in MRI at this marco antonio, unable to obtain vs or check glucose level at tw2 this time. 17:59 Reassessment: pt back from MRI at this time, NAD, will obtain vs at this time. tw2 18:03 Reassessment: Patient appears in no apparent distress at this time. No changes from tw2 previously documented assessment. Patient and/or family updated on plan of care and expected duration. Pain level reassessed. Patient is alert, oriented x 3, equal unlabored respirations, skin warm/dry/pink. 18:42 Reassessment: pt states "i normally take hydrocodone 10 every 3 hours for pain and i tw2 havent had anything so my back is hurting a lot", provider notified. 19:26 Reassessment: Patient states feeling better. mg2 Vital Signs: 14:49 BP 126 / 56; Pulse 91; Resp 20; Temp 97.9(O); Pulse Ox 97% ; Weight 73.48 kg; Height 5 sv ft. 4 in. (162.56 cm); 15:53 BP 127 / 58; Pulse 89; Resp 17; Temp 97.6(O); Pulse Ox 97% on R/A; mh5 16:30 BP 121 / 59; Pulse 79; Resp 18; Temp 98.0(O); Pulse Ox 95% on R/A; tw2 18:03 BP 137 / 54; Pulse 75; Resp 17; Pulse Ox 99% on R/A; tw2 19:26 BP 127 / 84; Pulse 80; Resp 18; Temp 98; Pulse Ox 100% on R/A; mg2 14:49 Body Mass Index 27.81 (73.48 kg, 162.56 cm) sv NIH Stroke Scale Scores: 15:49 NIHSS Score: 2 cp ED Course: 14:47 Patient arrived in ED. as 14:49 Triage completed. sv 14:49 Arm band placed on. sv 14:58 Hope Evans, ALOK is Primary Nurse. tw2 15:06 Efren Addison PA is PHCP. cp 15:07 Amando Pinto MD is Attending Physician. cp 15:13 Missed attempt(s): 22 gauge in right forearm. per Marie Garcia. Bleeding controlled, tw2 band aid applied, catheter tip intact. 15:15 Inserted saline lock: 22 gauge in left antecubital area, using aseptic technique. Blood tw2 collected. 15:19 Patient has correct armband on for positive identification. Placed in gown. Bed in low mh5 position. Call light in reach. Side rails up X 1. Warm blanket given. monitoring specialist on. Pulse ox on. NIBP on. 15:20 Missed attempt(s): 22 gauge forearm. antecubital area. mh5 15:25 XRAY Chest (1 view) In Process Unspecified. EDMS 15:35 CT Head Brain wo Cont In Process Unspecified. EDMS 15:57 Notified Nurse Practitioner and/or Physician Foster Care Social Worker of a critical lab result(s), hb Glucose 552. 19:00 Report given to ALOK Banegas. tw2 19:25 IV discontinued, intact, bleeding controlled, No redness/swelling at site. Pressure mg2 dressing applied. 19:27 No provider procedures requiring assistance completed. mg2 Administered Medications: 16:08 Drug: Insulin Regular Human 10 units {Co-Signature: tw2 (Hope Evans RN).} Route: IVP; em Site: left antecubital; 18:45 Follow up: Response: No adverse reaction; Blood sugar is lowered tw2 16:08 Drug: NS 0.9% 1000 ml Route: IV; Rate: 1000 ml/hr; Site: left antecubital; tw2 16:55 Follow up: Response: No adverse reaction; IV Status: Completed infusion; IV Intake: tw2 1000ml 16:17 Drug: foLIC Acid 1 mg Route: PO; tw2 16:18 Follow up: Response: No adverse reaction tw2 16:18 Drug: Meclizine 25 mg Route: PO; tw2 16:19 Follow up: Response: No adverse reaction tw2 16:18 Drug: Aspirin Chewable Tablet 81 mg Route: PO; tw2 16:19 Follow up: Response: No adverse reaction tw2 Point of Care Testing: Blood Glucose: 14:58 Blood Glucose: High (>450 mg/dL); sv 18:32 Blood Glucose: 282 mg/dL; tw2 Ranges: Intake: 16:55 IV: 1000ml; Total: 1000ml. tw2 Outcome: 19:06 Discharge ordered by MD. cp 19:27 Discharged to home ambulatory. mg2 19:27 Condition: stable 19:27 Discharge instructions given to patient, Instructed on discharge instructions, follow up and referral plans. medication usage, Demonstrated understanding of instructions, follow-up care, medications, Prescriptions given X 1. 19:28 Patient left the ED. mg2 NIH Stroke Scale - NIH Stroke Score Date: 11/01/2019 Time: 15:49 Total Score = 2 1a. Level of Consciousness (LOC) - 0(Alert) 1b. Level of Consciousness (LOC) (Year \\T\\ Age) - 0(Both) 1c. LOC Commands (Open \\T\\ Closes Eyes/Wood Calker) - 0(Both) 2. Best Gaze (Lateral Gaze Paresis) - 0(Normal) 3. Visual Field Loss - 0(No visual loss) 4. Facial Palsy - 0(Normal) 5a. Left Arm: Motor (10-second hold) - 0(No drift) 5b. Right Arm: Motor (10-second hold) - 0(No drift) 6a. Left Leg: Motor (5-second hold - always test supine) - 0(No drift) 6b. Right Leg: Motor (5-second hold - always test supine) - 0(No drift) 7. Limb Ataxia (finger/nose \\T\\ heel/mir - test with eyes open) - 0(Absent) 8. Sensory Loss (pinprick arms/legs/face) - 1(Mild to moderate loss) 9. Best Language: Aphasia (description/naming/reading) - 0(No aphasia) 10. Dysarthria (speech clarity - read or repeat words) - 1(Mild to Moderate) 11. Extinction and Inattention (visual/tactile/auditory/spatial/personal) - 0(No abnormality) Initials: cp Signatures: Dispatcher [employer] Corina Robledo RN ALOK Travis Krishnan RN RN Ioana Washington Corey, PA PA cp Birgit Velasco RN RN Hope Evans RN RN [facility] Shaunna Washington [facility] Kiko Ahuja RN RN [facility] Hope Evans RN tw2 Corrections: (The following items were deleted from the chart) 14:52 14:48 Presenting complaint: Patient states: dizziness since 10/10/19, states she sv hasn't been feeling good and she is waiting for her surgeon from [place] to call her for surgery. sv 14:52 14:49 Pulse 91bpm; Resp 20bpm; Pulse Ox 97%; Temp 97.9F Oral; 73.48 kg; Height sv 5 ft. 4 in.; BMI: 27.8; sv 14:58 14:48 Acuity: RASHAD 3 sv sv 14:59 14:48 Presenting complaint: Patient states: dizziness since 10/10/19, states she sv hasn't been feeling good and she is waiting for her surgeon from [place] to call her for surgery. "My speech is slurred again from the 3rd." Stated she noticed it more slurred yesterday and today her BS read high. sv 15:06 14:48 General: Appears in no apparent distress. uncomfortable, Behavior is sv calm, cooperative, em 15:06 14:48 Neuro: Level of Consciousness is awake, alert, obeys commands, Oriented sv to person, place, time, situation, Speech is slurred, Reports dizziness, em 15:06 14:48 Respiratory: Respiratory effort is even, unlabored, em sv 15:06 14:48 Derm: Skin is pink, warm \\T\\ dry. em sv 17:13 17:05 BP 121 / 59; Pulse 79bpm; Resp 18bpm; Pulse Ox 95% RA; Temp 98.0F Oral; tw2 mh5
--- NOTE | 2019-11-01 23:24 | EDPHYS ---
Physician Documentation [facility] Name: Charlotte Ruvalcaba Age: 54 yrs Sex: Female : 1965 Arrival Date: 11/01/2019 Time: 14:47 Bed 20 Private MD: ED Physician Amando Pinto HPI: 11/01 15:45 This 54 yrs old Black Female presents to ER via Ambulatory with complaints of Dizziness.cp 15:45 The patient presents with dizziness, generalized weakness, lightheadedness. cp 15:45 Onset: The symptoms/episode began/occurred 22 day(s) ago. cp 15:45 Associated signs and symptoms: Pertinent positives: chest pain, tingling. cp 15:45 Patient's baseline: Neuro: alert and fully oriented, Motor: no deficits, Ambulation: cp walks without assistance, Speech: normal. Historical: - Allergies: 14:49 NKDA; sv - Home Meds: 16:40 albuterol sulfate 90 mcg/actuation inhalation HFAA 2 puffs twice daily as needed tw2 [Active]; Flonase 50 mcg/actuation Nasal spsn 1 spray 2 times per day [Active]; meloxicam 15 mg oral tab 1 tab once daily [Active]; buspirone 10 mg Oral tab [Active]; esomeprazole magnesium 40 mg Oral cpDR 1 cap once daily [Active]; ondansetron HCl 4 mg Oral tab 1 tabs twice a day [Active]; Amitiza 24 mcg Oral cap 1 cap 2 times per day [Active]; magnesium oxide 400 mg Oral tab daily [Active]; estradiol 0.5 mg Oral tab 1 tab once daily [Active]; levothyroxine 50 mcg tab 1 tab once daily [Active]; simvastatin 10 mg Oral tab 1 tab once daily [Active]; losartan-hydrochlorothiazide 100-25 mg Oral tab 1 tab once daily [Active]; pantoprazole 40 mg Oral TbEC 1 tab once daily [Active]; montelukast 10 mg oral tab 1 tab once daily [Active]; Trulance 3 mg by mouth PO daily [Active]; Tresiba FlexTouch U-100 100 unit/mL (3 mL) subcutaneous inpn 85 Units [Active]; victoza 3-tita SQ 1.8 mg daily [Active]; 18:44 hydrocodone-acetaminophen 10-325 mg Oral tab 1 tab every 6 hours, prn for chronic pain tw2 [Active]; - PMHx: 14:49 Asthma; breast cancer; Gout; chronic pain, sees pain doctor; COPD; Diabetes - IDDM; sv Hypertension; Hypothyroidism; - Immunization history:: Adult Immunizations. - Coronavirus screen:: The patient has NOT traveled to [place] in the past 14 days. - Social history:: Smoking status: . - Ebola Screening: : Patient denies travel to an Ebola-affected area in the 21 days before illness onset. ROS: 15:50 Constitutional: Negative for body aches, chills, fever, poor PO intake. cp 15:50 Eyes: Negative for injury, pain, redness, and discharge. cp 15:50 ENT: Negative for drainage from ear(s), ear pain, sore throat, difficulty swallowing, difficulty handling secretions. 15:50 Neck: Negative for pain with movement, pain at rest, stiffness. 15:50 Cardiovascular: Negative for chest pain, edema, palpitations. 15:50 Respiratory: Negative for cough, shortness of breath, wheezing. 15:50 Abdomen/GI: Negative for abdominal pain, nausea, vomiting, and diarrhea, constipation, black/tarry stool, rectal bleeding. 15:50 Back: Negative for pain at rest, pain with movement. 15:50 : Negative for urinary symptoms, vaginal bleeding. 15:50 Skin: Negative for rash. 15:50 Neuro: Positive for dizziness, headache, speech changes, tingling, weakness, Negative for altered mental status, syncope. 15:50 All other systems are negative. Exam: 15:21 ECG was reviewed by the Attending Physician. cp 15:55 Constitutional: The patient appears in no acute distress, alert, awake, cp non-diaphoretic, non-toxic, well developed, well nourished. 15:55 Head/Face: Normocephalic, atraumatic. cp 15:55 Eyes: Periorbital structures: appear normal, Pupils: equal, round, and reactive to light and accomodation, Extraocular movements: intact throughout, Conjunctiva: normal, no exudate, no injection, Sclera: no appreciated abnormality, Lids and lashes: appear normal, bilaterally. 15:55 ENT: External ear(s): are unremarkable, Ear canal(s): are normal, clear, TM's: dullness, bilaterally, Nose: is normal, Mouth: Lips: moist, Oral mucosa: pink and intact, moist, Posterior pharynx: is normal, airway is patent, no erythema, no exudate. 15:55 Neck: ROM/movement: is normal, is supple, without pain, no range of motions limitations, no meningismus, no nuchal rigidity, Lymph nodes: no appreciated lymphadenopathy. 15:55 Chest/axilla: Inspection: normal, Palpation: is normal, no crepitus, no tenderness. 15:55 Cardiovascular: Rate: normal, Rhythm: regular, Edema: is not appreciated, JVD: is not appreciated. 15:55 Respiratory: the patient does not display signs of respiratory distress, Respirations: normal, no use of accessory muscles, no retractions, labored breathing, is not present, Breath sounds: are clear throughout, no decreased breath sounds, no stridor, no wheezing. 15:55 Abdomen/GI: Inspection: abdomen appears normal, Bowel sounds: active, all quadrants, Palpation: abdomen is soft and non-tender, in all quadrants, voluntary guarding, is not appreciated, involuntary guarding, is not appreciated. 15:55 Back: pain, is absent, ROM is normal. 15:55 Skin: cellulitis, is not appreciated, no rash present. 15:55 Neuro: Orientation: to person, place \T\ time. Mentation: able to follow commands, slow to respond, Cerebellar function: Romberg testing is negative, normal finger to nose testing, Motor: moves all fours, strength is normal, Sensation: no obvious gross deficits. Vital Signs: 14:49 BP 126 / 56; Pulse 91; Resp 20; Temp 97.9(O); Pulse Ox 97% ; Weight 73.48 kg; Height 5 sv ft. 4 in. (162.56 cm); 15:53 BP 127 / 58; Pulse 89; Resp 17; Temp 97.6(O); Pulse Ox 97% on R/A; mh5 16:30 BP 121 / 59; Pulse 79; Resp 18; Temp 98.0(O); Pulse Ox 95% on R/A; tw2 18:03 BP 137 / 54; Pulse 75; Resp 17; Pulse Ox 99% on R/A; tw2 19:26 BP 127 / 84; Pulse 80; Resp 18; Temp 98; Pulse Ox 100% on R/A; mg2 14:49 Body Mass Index 27.81 (73.48 kg, 162.56 cm) sv NIH Stroke Scale Scores: 15:49 NIHSS Score: 2 cp MDM: 15:08 Patient medically screened. cp 15:30 Differential diagnosis: cardiac arrhythmia, CVA, hypovolemia, TIA, vertigo, DKA. cp 15:46 ED course: Patient is not a candidate for tpa as onset of symptoms is greater than 24 cp hours. 19:05 Data reviewed: vital signs, nurses notes, lab test result(s), EKG, radiologic studies, cp CT scan, MRI, plain films. 19:05 Test interpretation: by ED physician or midlevel provider: ECG, plain radiologic cp studies, chest xray negative for infiltrates. Counseling: I had a detailed discussion with the patient and/or guardian regarding: the historical points, exam findings, and any diagnostic results supporting the discharge/admit diagnosis, lab results, radiology results, the need for outpatient follow up, for definitive care, an hydraulic billet maker, vascular surgery, to return to the emergency department if symptoms worsen or persist or if there are any questions or concerns that arise at home. Response to treatment: the patient's symptoms have markedly improved after treatment. 11/01 15:03 Order name: Basic Metabolic Panel em 11/01 15:03 Order name: CBC with Diff; Complete Time: 15:32 em 11/01 15:33 Interpretation: Normal except: WBC 12.4; NEUT A 8.4. 11/01 15:03 Order name: LFT's; Complete Time: 16:11/01 16:01 Interpretation: Normal except: AST 13; GLOB 4.1; A/G 1.0. 11/01 15:03 Order name: Magnesium; Complete Time: 16:01 em 11/01 15:03 Order name: NT PRO-BNP; Complete Time: 16: em 11/01 15:03 Order name: PT-INR; Complete Time: 15:32 em 11/01 15:03 Order name: Troponin (emerg Dept Use Only); Complete Time: 16: em 11/01 16:29 Interpretation: Within normal limits: TROPED < 0.02. 11/01 15:03 Order name: XRAY Chest (1 view); Complete Time: 17:09 11/01 17:09 Interpretation: Report review. 11/01 15:03 Order name: CT Head Brain wo Cont; Complete Time: 16:05 11/01 16:05 Interpretation: Report reviewed. 11/01 15:03 Order name: Basic Metabolic Panel; Complete Time: 16:01 EDCO 11/01 16:01 Interpretation: Normal except: NA 130; CL 94; GLUC 552; BUN 29; GFR 57. 11/01 15:10 Order name: Glucose, Ancillary Testing; Complete Time: 15:32 EDMS 11/01 15:33 Interpretation: Abnormal: GLUC,ANCIL > 500. 11/01 16:05 Order name: Ketone, Serum cp 11/01 15:03 Order name: EKG; Complete Time: 15:04 11/01 15:03 Order name: Cardiac monitoring; Complete Time: 15:03 11/01 15:03 Order name: EKG - Nurse/Tech; Complete Time: 15:19 11/01 15:03 Order name: IV Saline Lock; Complete Time: 19:02 11/01 15:03 Order name: Labs collected and sent; Complete Time: 19:02 11/01 15:03 Order name: O2 Per Protocol; Complete Time: 15:03 11/01 15:03 Order name: O2 Sat Monitoring; Complete Time: 15:03 11/01 17:13 Order name: Accucheck Blood Glucose; Complete Time: 18:36 cp EC:21 Rate is 85 beats/min. Rhythm is regular. AL interval is normal. QRS interval is normal. cp QT interval is normal. T waves are Inverted in leads aVL, aVR. Interpreted by me. Reviewed by me. Administered Medications: 16:08 Drug: Insulin Regular Human 10 units {Co-Signature: tw2 (Hope Evans RN).} Route: IVP; em Site: left antecubital; 18:45 Follow up: Response: No adverse reaction; Blood sugar is lowered tw2 16:08 Drug: NS 0.9% 1000 ml Route: IV; Rate: 1000 ml/hr; Site: left antecubital; tw2 16:55 Follow up: Response: No adverse reaction; IV Status: Completed infusion; IV Intake: tw2 1000ml 16:17 Drug: foLIC Acid 1 mg Route: PO; tw2 16:18 Follow up: Response: No adverse reaction tw2 16:18 Drug: Meclizine 25 mg Route: PO; tw2 16:19 Follow up: Response: No adverse reaction tw2 16:18 Drug: Aspirin Chewable Tablet 81 mg Route: PO; tw2 16:19 Follow up: Response: No adverse reaction tw2 Point of Care Testing: Blood Glucose: 14:58 Blood Glucose: High (>450 mg/dL); sv 18:32 Blood Glucose: 282 mg/dL; tw2 Ranges: Critical Glucose Levels:Adult <50 mg/dl or >400 mg/dl <40 mg/dl or >180 mg/dl Disposition: 11/02 06:46 Co-signature as Attending Physician, Amando Pinto MD I agree with the assessment and kdr plan of care. Disposition: 11/01/19 19:06 Discharged to Home. Impression: Dizziness and giddiness, Diabetes mellitus due to underlying condition with hyperglycemia, Occlusion and stenosis of left carotid artery. - Condition is Stable. - Discharge Instructions: Dizziness, Blood Glucose Monitoring, Adult, Diabetes Mellitus and Food. - Prescriptions for Meclizine 25 mg Oral Tablet - take 1 tablet by ORAL route every 8 hours As needed; 30 tablet. - Medication Reconciliation Form, Thank You Letter, Antibiotic Education, Prescription Opioid Use form. - Follow up: Private Physician; When: 1 - 2 days; Reason: Recheck today's complaints. - Problem is new. - Symptoms have improved. NIH Stroke Scale - NIH Stroke Score Date: 11/01/2019 Time: 15:49 Total Score = 2 1a. Level of Consciousness (LOC) - 0(Alert) 1b. Level of Consciousness (LOC) (Year \T\ Age) - 0(Both) 1c. LOC Commands (Open \T\ Closes Eyes/Protozoology Teacher) - 0(Both) 2. Best Gaze (Lateral Gaze Paresis) - 0(Normal) 3. Visual Field Loss - 0(No visual loss) 4. Facial Palsy - 0(Normal) 5a. Left Arm: Motor (10-second hold) - 0(No drift) 5b. Right Arm: Motor (10-second hold) - 0(No drift) 6a. Left Leg: Motor (5-second hold - always test supine) - 0(No drift) 6b. Right Leg: Motor (5-second hold - always test supine) - 0(No drift) 7. Limb Ataxia (finger/nose \T\ heel/mir - test with eyes open) - 0(Absent) 8. Sensory Loss (pinprick arms/legs/face) - 1(Mild to moderate loss) 9. Best Language: Aphasia (description/naming/reading) - 0(No aphasia) 10. Dysarthria (speech clarity - read or repeat words) - 1(Mild to Moderate) 11. Extinction and Inattention (visual/tactile/auditory/spatial/personal) - 0(No abnormality) Initials: cp Signatures: Dispatcher [employer] Corina Robledo, RN RN sv Amando Pinto MD MD [facility] Travis Krishnan RN RN em Efren Addison PA PA cp Hope Evans RN RN tw2 Kiko Ahuja RN RN mg2 Hope Evans RN tw2 Corrections: (The following items were deleted from the chart) 11/01 19:28 19:06 11/01/2019 19:06 Discharged to Home. Impression: Dizziness and giddiness; mg2 Diabetes mellitus due to underlying condition with hyperglycemia; Occlusion and stenosis of left carotid artery. Condition is Stable. Forms are Medication Reconciliation Form, Thank You Letter, Antibiotic Education, Prescription Opioid Use. Follow up: Private Physician; When: 1 - 2 days; Reason: Recheck today's complaints. Problem is new. Symptoms have improved. cp
--- NOTE | 2019-11-02 08:19 | EKG ---
Test Date: 2019-11-01 Test Time: 15:13:55 Belt Maker: DANIELA MEASUREMENT RESULTS: Intervals: Rate: 85 KS: 138 QRSD: 70 QT: 378 QTc: 449 [place]: P: 79 KS: 138 QRS: 61 T: 60 INTERPRETIVE STATEMENTS: Normal sinus rhythm Possible Left atrial enlargement Septal infarct, age undetermined Abnormal ECG Compared to ECG 10/11/2019 16:37:53 Myocardial infarct finding now present Electronically Signed On 11-02-19 08:18:06 LEGAL PARAPROFESSIONAL by Ike Yun
== END 2019-11-01 19:28 | disposition home or self-care (01) ==
LOC: ER 14:45
DX: E11.65 Type 2 diabetes mellitus with hyperglycemia (principal); I65.22 Occlusion and stenosis of left carotid artery; I10 Essential (primary) hypertension; E03.9 Hypothyroidism, unspecified; J44.9 Chronic obstructive pulmonary disease, unspecified; Z79.4 Long term (current) use of insulin; Z85.3 Personal history of malignant neoplasm of breast
CPT/HCPCS: 96361; 93005; 85025; 80048; 36415; 82010; 83735; 85610; 82947 ×3; 80076; 84484; 83880; 70450; 71045; 70553; 70544; 70549; 96374; 99284; A9577; J7030; J8597

== ENCOUNTER 2020-10-11 08:30 | Emergency (ER) | payer OTHER ==
--- OUTSIDE RECORDS SUMMARY | 2020-10-11 08:33 | XMS REPORT | Clinical Summary ---
:1965 Author Organization [facility] Address [address] [place] [address] Care Team Providers Name Role Phone Radhames Ramos PA-C Primary Care Provider Allergies No Known Active Allergies Medications Medication Sig Dispensed Refills Start Date End Date Status HYDROcodone-acetaminop Take 1 tablet by 0 Active hen (NORCO) 7.5-325 mg mouth 3 (three) per tablet times a day. methocarbamol Take 750 mg by 0 A ctive (ROBAXIN) 500 MG mouth 3 (three) tablet times a day. Takes 500 mg 1.5 TAB. (750 mg) gabapentin (GRALISE) Take 600 mg by 0 Active 600 mg tablet extended mouth daily. release 24 hr montelukast Take 10 mg by 0 Acti ve (SINGULAIR) 10 mg mouth daily. tablet esomeprazole (NexIUM) Take 40 mg by 0 Active 40 MG capsule mouth daily. pantoprazole Take 40 mg by 0 Act gissel (PROTONIX) 40 MG EC mouth daily. tablet amitriptyline (ELAVIL) Take 25 mg by 0 Active 25 MG tablet mouth every morning. losartan-hydrochloroth Take 1 tablet by 0 Active iazide (HYZAAR) 100-25 mouth every mg per tablet morning. simvastatin (ZOCOR) 10 Take 10 mg by 0 Active MG tablet mouth nightly. estradiol (ESTRACE) Take 0.5 mg by 0 Active 0.5 MG tablet mouth daily. tiZANidine (ZANAFLEX) Take 2 mg by mouth 0 Active 2 MG tablet 2 (two) times a day as needed for muscle spasms. liraglutide (VICTOZA) Inject 1.8 mg 0 Active 0.6 mg/0.1 mL (18 mg/3 under the skin mL) pen injector daily. insulin degludec Inject [...] a HFA,VENTOLIN HFA) 90 day as needed for mcg/actuation inhaler wheezing or shortness of breath. meloxicam (MOBIC) 15 Take 15 mg by 0 Active mg tablet mouth daily. DULoxetine (CYMBALTA) Take 20 mg by 0 Active 20 MG capsule mouth daily. methocarbamol Take 1 tablet (750 40 tablet 3 07/16/2018 Active (ROBAXIN-750) 750 MG mg total) by mouth tablet every 8 (eight) hours as needed for muscle spasms for up to 40 doses. Active Problems Problem Noted Date Degeneration of intervertebral disc of lumbosacral reg ion 07/16/2018 Surgical History Surgery Date Site/Laterality Comments COLONOSCOPY ROTATOR CUFF REPAIR 09/07/2014 - Right 09/06/2015 REPLACEMENT TOTAL KNEE 09/07/2012 - Bilateral 09/06/2013 HYSTERECTOMY CATARACT EXTRACTION APPENDECTOMY CHOLECYSTECTOMY SECTION 1980 and 1984 x2 CARPAL TUNNEL RELEASE Bilateral TRIGGER FINGER RELEASE 09/07/2013 - left thum b 09/06/2014 FUSION, ANTERIOR SPINAL 07/16/2018 Spine Lumbar/Anterior Pr ocedure: LUMBAR COLUMN, LUMBAR, ANTERIOR FIVE - SACRAL ONE APPROACH ANTERIOR LUMBAR INTERBODY FUSION ; Surgeon: Arvind Rivers MD; Locatio n: [facility] Main OR; Service: Neurosurgery; Laterality: Ante rior; Medical devices from this surgery are in the Implants sec tion. FUSION, SPINE, LUMBAR, 07/16/2018 Spine Lumbar/Posterior Pr ocedure: OPEN POSTERIOR APPROACH LUMBAR FIVE - SACRAL ONE LAMINECTOMY AND FUSION WITH [facility] AND [facility]; Surgeo n: Parish Rivers M D; Location: [facility]; Service: Neurosurgery; Laterality: Posterior; Medical devices from this surgery are in the Implants sec tion. Medical History Medical History Date Comments Hypercholesteremia Hypertension Asthma COPD (chronic obstructive pulmonary disease) (HCC) PNA (pneumonia) GERD (gastroesophageal reflux disease) Type 2 diabetes mellitus (HCC) Depression Arthritis Osteo Wears partial dentures upper and lower Wears glasses Exercise tolerance finding Unable to cli mb a flight of stairs due to chronic pain. No CP or SOB on exertion Immunizations up to date Family History Medical History Relation Name Comments COPD Mother Hyperlipidemia Mother Hypertension Mother Relation Name Status Comments Father unknown history Mother Social History Tobacco Use Types Packs/Day Years Used Date Former Smoker Cigarettes 1 1974 - 1997 Smokeless Tobacco: Never Used Alcohol Use Drinks/Week oz/Week Comments No Sex Assigned at Date Recorded Not on file Last Filed Vital Signs Not on file Plan of Treatment Health Maintenance Due Date Last Done Comments DIABETES: RETINAL EYE EXAM 1973 DIABETIC FOOT EXAM 1973 URINE MICROALBUMIN 1973 COVID-19 VACCINE (1 of 2) 1979 HEPATITIS C SCREENING 1981 CERVICAL CANCER SCREENING 1984 BREAST CANCER SCREENING 2013 COLONOSCOPY SCREENING 2013 SHINGLES VACCINES (#1) 2013 INFLUENZA VACCINE 04/07/2020 08/27/2009 Implants Implanted Type Area Senior Executive Compensation Analyst Device Shelf Model / Serial Identifier Expiration / Lot Date Chip Canc Allograft Leader [facility] 15cc 0.1-4mm - [id number] Human Tissue Anterio [employer]CULOSKELETAL 05/03/2021 [id number] / Implanted: Qty: 1 on 07/16/2018 by Parish Rivers MD at [facility] Implants r: TRANSPLANT / Spine, [employer] [id number] Multi-L evel Kit Bone Grft Lmbr Tprd 8ml Xxl Infuse - [id number] Human Tissue Anterio [employer] SPINAL [id number] / Implanted: Qty: 1 on 07/16/2018 by Parish Rivers MD at [facility] Implants r: [employer] / Spine, Multi-L evel Interbody [id number] Medium - 18 Deg 16mm - [id number] - [id number] IPM IMPLANT Anterio [employer] 11/20/2024 [id number] / Implanted: Qty: 1 on 07/16/2018 by Parish Rivers MD at [facility] DEVICES r: SOFAMOR DANEK 74DP / Spine, 74DP Multi-L evel Sovereign Fa Screw [id number] 5.5 X 25mm - [id number] IPM IMPLANT Anterio [employer] [id number] / Implanted: Qty: 1 on 07/16/2018 by Parish Rivers MD at [facility] DEVICES r: SOFAMOR DANEK / Spine, Multi-L evel Set Screw [id number] 5.5 Ti Ns Brk Off - [id number] IPM IMPLANT N/A: [employer] [id number] / Implanted: 07/16/2018 at [facility] (Quantity not on file) DE VICES N/A SOFAMOR DANEK / Sergio [id number] 5.5 Ccm Ns Curv 35mm - [id number] IPM IMPLANT Anterio [employer] [id number] / Implanted: 07/16/2018 at [facility] (Quantity not on file) DE VICES r: SOFAMOR DANEK / Spine, VENDOR LOT NA Multi-L evel Screw [id number] 5.5 Mas 6.5x55 Cc - [id number] IPM IMPLANT N/A: [employer] [id number] / Implanted: 07/16/2018 at [facility] (Quantity not on file) DE VICES N/A SOFAMOR DANEK / Screw [id number] 5.5 Mas 6.5x50 Cc - Svendor Lot Na - [id number] IPM IMPLANT Posteri [employer] [id number] / Implanted: Qty: 1 on 07/16/2018 by Parish Rivers MD at [facility] DEVICES or: SOFAMOR DANEK VENDOR LOT NA / Spine, VENDOR LOT NA Sacral Screw [id number] 5.5 Mas 6.5x50 Cc - [id number] IPM IMPLANT Posteri [employer] [id number] / Implanted: Qty: 1 on 07/16/2018 by Parish Rivers MD at [facility] DEVICES or: SOFAMOR DANEK / Spine, VENDOR LOT NA Sacral Washer Bone Grft Ti 17mm - [id number] Orthopedic Anterio [employer] S CHELE [id number] / Implanted: Qty: 1 on 07/16/2018 by Parish Rivers MD at [facility] Trauma r: [employer] / Implants Spine, VENDOR LOT NA Multi-L evel Results Not on fileafter 10/11/2019 Insurance Payer Benefit Plan / Subscriber ID Effective Phone Address T e Group Dates MEDICAID MEDICAID [id number] 2011-Prese Medic aid nt CIGNA CIGNA [id number] 2017-Prese HMO [employer] HMO nt MCR ADV Advance Directives For more information, please contact: [phone] Type Date Recorded Patient Liaison Officer Explanati on Advance Directives, Living 08/03/2018 12:52 PM Will and Medical Power of Associate Trainer
--- OUTSIDE RECORDS SUMMARY | 2020-10-11 08:34 | XMS REPORT | Continuity of Care Document ---
:1965 Author Organization [facility] [place] Information [place] Care Team Providers Name Role Phone [facility] Information Exchange Unavailable Un available Problems Problem Status Onset Classification Date Comments Sourc e Date Reported N/A Active 11/08/19 [facility] 20 I65.22 Active 11/08/19 [place] [id number] Carotid artery Active Problem 07/25/2020 [facility] edical stenosis Group,Misc he (disorder) r Neuro,[facility] Carpal tunnel Active Problem 07/25/2020 [facility] dical syndrome Group,Misc he (disorder) r Neuro,[facility] Diabetes mellitus Active Problem 07/25/2020 [facility] (disorder) Group,Mis samantha r Neuro,[facility] Diabetes mellitus Active Problem 07/25/2020 [facility] type 2 (disorder) Gr oup,Mische r Neuro,[facility] Disorder of Active Problem 07/25/2020 [facility] carotid artery Group ,Mische (disorder) r Neuro,[facility] Hypertensive Active Problem 07/25/2020 Med ical disorder, Group,Misc he systemic arterial r Neuro,[facility] (disorder) [facility] Hyperlipidemia Active Problem 07/25/2020 [facility] edical (disorder) Group,Mis samantha r Neuro,[facility] Hypothyroidism Active Problem 07/25/2020 [facility] edical (disorder) Group,Mis samantha r Neuro,[facility] Simple obesity Active Problem 07/25/2020 [facility] edical (disorder) Group,Mis samantha r Neuro,[facility] Occlusion and 11/23/2019 [facility] stenosis of left carotid artery OCCLUSION AND Active [facility] STENOSIS OF LEFT CAROTID A Medications Medication Details Route Status Patient Ordering Order Source Instructions Provider Date Aspirin 81 MG 81 mg = 1 tab, Active Chewable Tablet PO, Daily, # 2019 [facility] 90 tab, 0 Refill(s), Pharmacy: [id number] Esomeprazole 40 mg, 1 cap, No Longer Route: PO, Active 2019 Drug form: ECCAP, Daily, Dosing Weight 79.091, kg, Start date: 11/21/19 9:00:00 CDT, Duration: 30 day, Stop date: 12/20/19 9:00:00 CDT Estradiol Notes: Inactive Hazardous Drug 2019 [facility] Group 2:Non-antineop lastic Hazardous Drug -- Refer to safe handling procedure PPE Matrix Fluticasone Notes: (Same Inactive propionate 0.05 as: Flonase) 2019 [facility] MG/ACTUAT Metered Dose Nasal [place] [Flonase] Hydrochlorothiazid 1 tab, Route: No Longer 11/20 e 25 MG / Losartan PO, Drug Form: Active 2019 [facility] Potassium 100 MG TAB, Dosing Oral Tablet Weight 79.091, kg, Daily, Start date: 11/21/19 9:00:00 CDT, Duration: 30 day, Stop date: 12/20/19 9:00:00 CDT pantoprazole Notes: Tablet Inactive should not be 2019 [facility] chewed or crushed. (Same as: Protonix) Trulance 3 mg oral Trulance 3 mg Inactive tablet oral tablet, 3 2019 mg, Route: PO, Daily, 11/21/19 9:00:00 CDT, Duration: 30 day, Stop date: 12/20/19 9:00:00 CDT Januvia Notes: Same as Inactive Januvia 2019 [facility] Insulin Glargine Notes: (Same No Longer 100 UNT/ML as: Lantus) Do Active 2019 [facility] est Injectable not hold Solution [Lantus] insulin without contacting prescriber WASTE: F/P - Black; E - Municipal Trash Bin "single patient use only" Stable for 28 days at room temperature Expires in days from Date hydrochlorothiazid Notes: (Same Inactive e 25 mg oral as: 2019 [facility] tablet Hydrodiuril) With food. Cozaar Notes: (Same Inactive as: Cozaar) 2019 [facility] Thyroxine Notes: Take 1 Inactive hour before or 2019 2 hours after meal; Enteral feeds may interefere with the absorption of this medication. (Same as:Levothroid) Insulin Glargine Notes: (Same No Longer 100 UNT/ML as: Lantus) Do Active 2019 [facility] est Injectable not hold Solution [Lantus] insulin without contacting prescriber WASTE: F/P - Black; E - Municipal Trash Bin "single patient use only" Stable for 28 days at room temperature Expires in days from Date Humalog Notes: (Same Inactive as: Humalog) 2019 [facility] Roll in palms of hands gently; Do not shake vigorously. WASTE: F/P - Black; E - Municipal Trash Bin Stable for 28 days at room temperature. Expires in days from Date montelukast Notes: (Same No Longer as:Singulair) Active 2019 [facility] Simvastatin Notes: (Same No Longer as: Zocor) Active 2019 [facility] Insulin, Aspart, 10 unit, Inactive Human Route: SUB-Q, 2019 [facility] ONCE, Dosing Weight 79.091, kg, Priority: NOW, Start date: 11/20/19 20:39:00 CDT, Stop date: 11/20/19 20:39:00 CDT Buspirone Notes: (Same No Longer As: BuSpar) Active 2019 [facility] Amitiza Notes: Same as No Longer Amitiza (Do 2019 [facility] Not Crush) Non Formulary Acetaminophen 325 Notes: Do not No Longer MG / Hydrocodone exceed 4gm/day 2019 [facility] Bitartrate 10 MG of Oral Tablet [[place] acetaminophen. 10/325] (Same as: [place] 325/10) Albuterol 0.833 Notes: (Same No Longer H MG/ML / as: Duoneb) 2019 [facility] Ipratropium [place] 0.167 MG/ML Inhalant Solution Tylenol Notes: Do not No Longer exceed 4 Active 2019 [facility] gm/day. (Same as: Tylenol) Labetalol Notes: (Same No Longer as: Normodyne, Active 2019 [facility] Trandate) Push over 2 minutes Give bolus over 2-3 minutes. heparin 5,000 unit, Inactive Route: SUB-Q, 2019 [facility] Q8H-06, Dosing Weight 79.091, kg, Priority: STAT, Start date: 11/20/19 9:23:00 CDT, Duration: 30 day, Stop date: 12/20/19 6:00:00 CDT Lexapro 10 mg, Route: Inactive PO, Drug form: 2019 [facility] TAB, Daily, Dosing Weight 79.091, kg, Priority: STAT, Start date: 11/20/19 9:15:00 CDT, Duration: 30 day, Stop date: 12/20/19 9:00:00 CDT Furosemide Notes: (Same Inactive as: Lasix) 2019 [facility] May cause GI upset. Give with food or milk. Losartan Notes: (Same Inactive as: Cozaar) 2019 [facility] Humalog Notes: (Same Inactive as: Humalog) 2019 [facility] Roll in palms of hands gently; Do not shake vigorously. WASTE: F/P - Black; E - Municipal Trash Bin Stable for 28 days at room temperature. Expires in days from Date Dextrose 50% in 50 mL, Route: No Longer Water IV IVP, Start Active 2019 [facility] date: 11/20/19 3:52:00 CDT, Duration: 30 day, Stop date: 12/20/19 3:51:00 CDT, PRN Blood Glucose Results, 0 glucagon 1 mg, Route: No Longer INJ, Drug Active 2019 form: PDR/INJ, PRN, PRN Blood Glucose Results, Start date: 11/20/19 3:52:00 CDT, Duration: 30 day, Stop date: 12/20/19 3:51:00 CDT, 0 Humalog Notes: (Same Inactive as: Humalog) 2019 [facility] Roll in palms of hands gently; Do not shake vigorously. WASTE: F/P - Black; E - Municipal Trash Bin Stable for 28 days at room temperature. Expires in days from Date Labetalol Notes: (Same Inactive as: Normodyne, 2019 [facility] Trandate) Push over 2 minutes Give bolus over 2-3 minutes. Hydralazine Notes: (Same Inactive as: 2019 [facility] Apresoline) Push over 5 minutes Furosemide Notes: (Same Inactive as: Lasix) 2019 [facility] Losartan Notes: (Same Inactive as: Cozaar) 2019 [facility] POLYETHYLENE Notes: No Longer GLYCOL 3350 Dissolve in [address] [facility] est oz of water or juice. (Same as: Miralax) Aspirin Notes: Take No Longer with food. 2019 [facility] phenol Notes: No Longer Chloraseptic 2019 [facility] [place] (Same as: Chloraseptic, Sore Throat [place]) WASTE: F/P - Black; E - Municipal Trash Bin Famotidine Notes: (Same No Longer as: Pepcid) 2019 [facility] Can be dilute in 5-10cc NS IVP: Slow IV push over at least 2 minutes. Saline Flush 0.9% Notes: (Same No Longer as: BD 2019 [facility] Posiflush) gabapentin Notes: (Same No Longer as: Neurontin) 2019 [facility] glucagon 1 mg, Route: No Longer INJ, Drug Active 2019 [facility] form: PDR/INJ, PRN, PRN Blood Glucose Results, Start date: 11/18/19 20:54:00 CDT, Duration: 30 day, Stop date: 12/18/19 20:53:00 CDT, 0 Humalog Notes: (Same No Longer as: Humalog) 2019 [facility] Roll in palms of hands gently; Do not shake vigorously. WASTE: F/P - Black; E - Municipal Trash Bin Stable for 28 days at room temperature. Expires in days from Date Dextrose 50% in 50 mL, Route: No Longer Water IV IVP, Start 2019 [facility] date: 11/18/19 20:53:00 CDT, Duration: 30 day, Stop date: 12/18/19 20:52:00 CDT, PRN Blood Glucose Results, 0 Humalog Notes: (Same No Longer as: Humalog) 2019 [facility] Roll in palms of hands gently; Do not shake vigorously. WASTE: F/P - Black; E - Municipal Trash Bin Stable for 28 days at room temperature. Expires in days from Date Lasix Notes: (Same Inactive as: Lasix) 2019 [facility] MEDICATION WASTE Product Size: 40 mg Product Wasted: ___ mg Losartan Notes: (Same Inactive as: Cozaar) 2019 [facility] ceFAZolin + Notes: (Same No Longer sterile water 20 As: [place]cef, [place] mL Kefzol) MEDICATION WASTE Product Size: 1000 mg Product Wasted: ___ mg Zofran Notes: (Same No Longer as: Zofran) 2019 [facility] MEDICATION WASTE Product Size: 4 mg Product Wasted: ___ mg Albuterol 0.833 Notes: (Same No Longer H MG/ML / as: Duoneb) 2019 [facility] Ipratropium [place] 0.167 MG/ML Inhalant Solution Saline Flush 0.9% Notes: (Same No Longer as: BD 2019 [facility] Posiflush) Potassium Chloride Notes: (Same No Longer as: KCL) 2019 [facility] Infuse no faster than 10 mEq/hr if given peripherally. sodium phosphate Notes: Infuse No Longer over 4 hour. 2019 [facility] Do not infuse phosphorous concurrently in the same line as TPN or IVF that contains calcium. For double lumen central lines, phosphorous may be infused in a separate lumen from TPN. potassium Notes: (Same No Longer phosphate as: K 2019 [facility] Phosphate.) Do not infuse phosphorous concurrently in the same line as TPN or IVF that contains calcium. For double lumen central lines, phosphorous may be infused in a separate lumen from TPN. 1 mMol phoshate has 1.47 mEq potassium Infuse over 4 hours potassium Notes: (Same No Longer phosphate-sodium as: Phos-NaK) Active [place] [facility] phosphate 250 Each 1.5 gm mg-280 mg-160 mg pkt has 250mg oral powder for phosphorous. reconstitution Mix w/2.5oz water and stir. Magnesium Sulfate Notes: WASTE: No Longer F/P - Sink; E Active 2019 [facility] Magnesium Oxide Notes: (Same No Longer H as: Mag-Ox Active 2019 [facility] 400) Magnesium oxide [id number] elemental magnesium Dose=____mg magnesium oxide (___mg elemental magnesium) Calcium Gluconate Notes: WASTE: No Longer F/P - Sink; E 2019 [facility] Calcium Carbonate Notes: (Same No Longer 500 MG Chewable As: Tums) Active 2019 [facility] est Tablet Calcium Carbonate 500 mg = 200 mg elemental calcium Dose = mg calcium carbonate ( mg elemental calcium) Acetaminophen Notes: Do not No Longer exceed 4 2019 [facility] gm/day. (Same as: Tylenol) gabapentin Notes: (Same No Longer as: Neurontin) 2019 [facility] Oxycodone Notes: (Same No Longer Hydrochloride 5 MG as: 2019 [facility] Oral Tablet Roxicodone) Tramadol Notes: Not to No Longer exceed 2019 [facility] 400mg/day. (Same As: Ultram) niCARdipine (ANES) Route: IV, Inactive Drug form: 2019 [facility] INJ, ONCE, Stop date: 11/18/19 11:24:00 CDT Diltiazem 10 mg, Route: Inactive IV, ONCE, 2019 [facility] Dosing Weight 79.091, kg, Start date: 11/18/19 11:24:00 CDT, Stop date: 11/18/19 11:24:00 CDT Hydromorphone 0.5 mg, Route: Inactive IVP, ONCE, 2019 [facility] Dosing Weight 79.091, kg, Priority: STAT, Start date: 11/18/19 11:24:00 CDT, Stop date: 11/18/19 11:24:00 CDT Nicardipine Notes: Same No Longer as: Cardene Active 2019 [facility] Concentration: (0.2 mg /1 ml ) ondansetron (ANES) Route: IV, Inactive H Drug form: 2019 [facility] INJ, ONCE, Stop date: 11/18/19 11:13:00 CDT Nicardipine Notes: Same Inactive as: Cardene 2019 [facility] Concentration: (0.2 mg /1 ml ) Acetaminophen Notes: Infuse Inactive over 15 2019 [facility] minutes Do not exceed 4gm/day of acetaminophen MEDICATION WASTE Product Size: 1000 mg Product Wasted: ___ mg calcium chloride Route: IV, Inactive (ANES) Drug form: 2019 [facility] INJ, ONCE, Stop date: 11/18/19 10:52:00 CDT protamine (ANES) Route: IV, Inactive 10 mg Drug form: 2019 [facility] INJ, Start date: 11/18/19 10:17:00 CDT, Stop date: 11/18/19 11:17:00 CDT heparin (ANES) Route: IV, Inactive Drug form: 2019 [facility] INJ, ONCE, Stop date: 11/18/19 9:46:00 CDT ePHEDrine (ANES) Route: IV, Inactive Drug form: 2019 [facility] INJ, ONCE, Stop date: 11/18/19 9:20:00 CDT phenylephrine Route: IV, Inactive (ANES) Drug form: 2019 [facility] INJ, ONCE, Stop date: 11/18/19 9:15:00 CDT fentaNYL (ANES) Route: IV, Inactive Drug form: 2019 [facility] INJ, ONCE, Stop date: 11/18/19 9:05:00 CDT propofol (ANES) Route: IV, Inactive Drug form: 2019 [facility] INJ, ONCE, Stop date: 11/18/19 9:05:00 CDT rocuronium (ANES) Route: IV, Inactive Drug form: 2019 [facility] INJ, ONCE, Stop date: 11/18/19 9:05:00 CDT ceFAZolin (ANES) Route: IV, Inactive Drug form: 2019 [facility] INJ, ONCE, Stop date: 11/18/19 9:05:00 CDT sodium chloride Route: IV, Inactive (ANES) 19 mL + Drug form: 2019 [facility] remifentanil INJ, Start (ANES) 1 mg date: 11/18/19 8:27:00 CDT, Stop date: 11/18/19 9:27:00 CDT Isolyte S PH 7.4 Route: IV, Inactive (ANES) 1000 mL Total Volume: 2019 [facility] 1,000, Start date: 11/18/19 7:45:00 CDT, Stop date: 11/18/19 8:45:00 CDT Metoprolol Notes: (Same Inactive as: Lopressor) 2019 [facility] Push over 2 minutes Sodium Chloride 250 mL, Rate: No Longer 0.9% (titrate) 250 To prime line Active 2019 [facility] mL and flush remaining blood products., Dosing Weight 81.023, kg, Route: IV, Total Volume: 250, Start Date: 11/18/19 6:36:00 CDT, Duration: 1 day, Stop date: 11/19/19 6:35:00 CDT, Replace Every: 24 hr, 0 Januvia PO, Daily, Active unknown dose, 2019 [facility] 0 Refill(s) Sodium Chloride 250 mL, Rate: No Longer 0.9% (titrate) 250 To prime line Active 2019 [facility] mL and flush remaining blood products., Dosing Weight 81.023, kg, Route: IV, Total Volume: 250, Start Date: 11/14/19 15:03:00 CDT, Duration: 1 day, Stop date: 11/15/19 15:02:00 CDT, Replace Every: 24 hr, 0 Hydrochlorothiazid 1 tab, PO, Active Medical e 25 MG / Losartan Daily, # 30 2019 [facility] Potassium 100 MG tab, 0 Oral Tablet Refill(s) Albuterol 0.833 3 mL, Active Medic al MG/ML / INHALATION, 2020 Group Ipratropium Q6H, PRN [place] 0.167 Wheezing, # 30 MG/ML Inhalant ea, 1 Solution Refill(s) Fluticasone NASAL, Daily, Active Med ical propionate 0.05 0 Refill(s) 2019 [facility] MG/ACTUAT Metered Dose Nasal [place] [Flonase] meloxicam 15 mg 15 mg = 1 tab, Active 11/13/ M H Medical oral tablet PO, Daily, # 2020 Group 30 tab, 0 Refill(s) busPIRone 10 mg 10 mg = 1 tab, Active H Medical oral tablet PO, BID, 0 2020 Group Refill(s) Esomeprazole 40 MG 40 mg = 1 cap, Active Medical Enteric Coated PO, Daily, # 2020 [facility] Capsule 30 cap, 0 Refill(s) ondansetron 4 mg 4 mg = 1 tab, Active H Medical oral tablet PO, BID, # 10 2020 Group tab, 0 Refill(s) lubiprostone 0.024 24 microgram = Active Medical MG Oral Capsule 1 cap, PO, 2020 Group [Amitiza] BID, 0 Refill(s) magnesium oxide 400 mg = 1 Inactive M edical 400 mg oral tablet tab, PO, 2020 [facility] p Daily, # 30 tab, 1 Refill(s) pantoprazole 40 mg 40 mg = 1 tab, Active Medical oral enteric PO, Daily, # 2020 Group coated tablet 30 tab, 1 Refill(s) montelukast 10 mg 10 mg = 1 tab, Active Medical oral tablet PO, Bedtime, # 2020 Group 30 tab, 0 Refill(s) plecanatide 3 MG 3 mg = 1 tab, Active H Medical Oral Tablet PO, Daily, 0 2020 Group [Trulance] Refill(s) Allergies, Adverse Reactions, Alerts Substance Category Reaction Severity Reaction Status Date Comments S ource type Reported No Known Assertion Drug Medication allergy Medic al Allergies Group Immunizations No Data Provided for This Section Results Order Name Results Value Reference Date Interpretation Comments Sruthi rce Range CHEM PANEL Glucose Lvl 215 70 - 99 11/20 [facility] CHEM PANEL BUN 15 7 - 22 11/20 [facility] CHEM PANEL Creatinine 0.50 0.50 - 0316 MH Lvl 1.40 /2019 [facility] CHEM PANEL Sodium Lvl 137 135 - 145 11/20 [facility] /2019 [facility] CHEM PANEL Potassium 4.5 3.5 - 5.1 / MH Lvl /2019 [facility] CHEM PANEL Chloride Lvl 102 95 - 109 11/20 [facility] /2019 [facility] CHEM PANEL CO2 30 24 - 32 11/20 MH /2019 [facility] CHEM PANEL Calcium Lvl 9.3 8.5 - 10.5 11/20 MH /2019 [facility] CHEM PANEL AGAP 9.5 10.0 - 03/ MH 20.0 /2020 [facility] CHEM PANEL eGFR 125 11/20 Result Comment: The [facility] eGFR is calculated using the CKD-EPI formula. In most young, healthy individuals the eGFR will be >90 mL/min/1.73m2 . The eGFR declines with age. An eGFR of 60-89 may be normal in some populations, particularly the elderly, for whom the CKD-EPI formula has not been extensively validated. Use of the eGFR is not recommended in the following populations:< br/>
Henna viduals with unstable creatinine concentration s, including patients and those with serious co-morbid conditions.<b r/>
Patie nts with extremes in muscle mass or diet.

The data above are obtained from the National Kidney Disease Education Program (NKDEP) which additionally recommends that when the eGFR is used in patients with extremes of body mass index for purposes of drug dosing, the eGFR should be multiplied by the estimated BMI. HEMATOLOGY Segs 71.7 45.0 - 11/20 MH 75.0 /2019 [facility] HEMATOLOGY Lymphocytes 17.6 20.0 - 03 MH 40.0 /2020 [facility] HEMATOLOGY Monocytes 8.4 2.0 - 12.0 / MH /2019 [facility] HEMATOLOGY Eosinophils 1.7 0.0 - 4.0 / MH /2019 [facility] HEMATOLOGY Basophils 0.6 0.0 - 1.0 /16 MH /2019 [facility] HEMATOLOGY Neutrophils 8.2 1.5 - 8.1 /16 MH # /2020 [facility] HEMATOLOGY Lymphocytes 2.0 1.0 - 5.5 /16 MH # /2020 [facility] HEMATOLOGY Monocytes # 1.0 0.0 - 0.8 /16 MH /2019 [facility] HEMATOLOGY Eosinophils 0.2 0.0 - 0.5 /16 MH # /2019 [facility] HEMATOLOGY Basophils # 0.1 0.0 - 0.2 03/16 MH /2019 [facility] HEMATOLOGY WBC 11.5 3.7 - 10.4 03/16 MH /2019 [facility] HEMATOLOGY RBC 4.12 4.20 - 03/16 MH 5.40 /2020 [facility] HEMATOLOGY Hgb 13.0 12.0 - 03/ MH 16.0 /2019 [facility] HEMATOLOGY Hct 38.1 36.0 - / MH 48.0 /2019 [facility] HEMATOLOGY MCV 92.5 80.0 - / MH 98.0 /2020 [facility] HEMATOLOGY MCH 31.6 27.0 - 03/ MH 31.0 /2019 [facility] HEMATOLOGY MCHC 34.2 32.0 - 03/ MH 36.0 /2019 [facility] HEMATOLOGY RDW 13.3 11.5 - 11/20 MH 14.5 /2019 [facility] HEMATOLOGY Platelet 260 133 - 450 03/16 MH /2019 [facility] HEMATOLOGY MPV 8.0 7.4 - 10.4 03/16 MH /2019 [facility] CHEM PANEL Glucose Lvl 205 70 - 99 /15 MH /2019 [facility] CHEM PANEL BUN 18 7 - 22 03/15 /2019 [facility] CHEM PANEL Creatinine 0.60 0.50 - 03/15 MH Lvl 1.40 /2019 [facility] CHEM PANEL Sodium Lvl 137 135 - 145 03/ MH /2019 [facility] CHEM PANEL Potassium 4.2 3.5 - 5.1 /15 MH Lvl /2019 [facility] CHEM PANEL Chloride Lvl 102 95 - 109 / /2019 [facility] CHEM PANEL CO2 28 24 - 32 / MH /2019 [facility] CHEM PANEL Calcium Lvl 8.8 8.5 - 10.5 15 /2019 [facility] CHEM PANEL AGAP 11.2 10.0 - 03/15 MH 20.0 /2019 [facility] CHEM PANEL eGFR 118 / Result Comment: The [facility] eGFR is calculated using the CKD-EPI formula. In most young, healthy individuals the eGFR will be >90 mL/min/1.73m2 . The eGFR declines with age. An eGFR of 60-89 may be normal in some populations, particularly the elderly, for whom the CKD-EPI formula has not been extensively validated. Use of the eGFR is not recommended in the following populations:< br/>
Henna viduals with unstable creatinine concentration s, including patients and those with serious co-morbid conditions.<b r/>
Patie nts with extremes in muscle mass or diet.

The data above are obtained from the National Kidney Disease Education Program (NKDEP) which additionally recommends that when the eGFR is used in patients with extremes of body mass index for purposes of drug dosing, the eGFR should be multiplied by the estimated BMI. CHEM PANEL Magnesium 1.8 1.8 - 2.4 11/19 MH Lvl /2019 [facility] CHEM PANEL Phosphorus 3.2 2.5 - 4.5 11/19 MH /2019 [facility] HEMATOLOGY WBC 13.5 3.7 - 10.4 03 /2019 [facility] HEMATOLOGY RBC 3.98 4.20 - 11/19 MH 5.40 /2019 [facility] HEMATOLOGY Hgb 12.2 12.0 - 11/19 MH 16.0 [facility] Hct 37.0 36.0 - 11/19 MH 48.0 [facility] MCV 93.0 80.0 - 11/19 MH 98.0 [facility] MCH 30.7 27.0 - 11/19 MH 31.0 [facility] MCHC 33.0 32.0 - 11/19 MH 36.0 [facility] HEMATOLOGY RDW 13.2 11.5 - 11/19 MH 14.5 [facility] Platelet 256 133 - 450 11/19 /2019 [facility] MPV 8.1 7.4 - 10.4 11/19 /2019 [facility] HEMATOLOGY RBC Morph Normal Normal 11/19 MH (11/20/19 2:18 AM) /2019 [facility] HEMATOLOGY Plt Morph Normal Normal 11/19 MH (11/20/19 2:18 AM) /2019 [facility] est HEMATOLOGY Segs 83.0 45.0 - 11/19 MH 75.0 [facility] HEMATOLOGY Lymphocytes 11.2 20.0 - 03 MH 40.0 [facility] HEMATOLOGY Monocytes 4.4 2.0 - 12.0 11/19 MH /2019 [facility] HEMATOLOGY Eosinophils 1.1 0.0 - 4.0 11/19 MH /2019 [facility] HEMATOLOGY Basophils 0.3 0.0 - 1.0 11/19 MH /2019 [facility] HEMATOLOGY Neutrophils 11.2 1.5 - 8.1 03/ MH # /2019 [facility] HEMATOLOGY Lymphocytes 1.5 1.0 - 5.5 15 MH # /2019 [facility] HEMATOLOGY Monocytes # 0.6 0.0 - 0.8 03/15 MH /2019 [facility] HEMATOLOGY Eosinophils 0.1 0.0 - 0.5 03/15 MH # /2020 [facility] HEMATOLOGY Basophils # 0.0 0.0 - 0.2 03/15 MH /2019 [facility] PARATHYROID Ca Ion WB 1.07 1.05 - 0315 MH PROFILE 1. [facility] PARATHYROID Ca Norm WB 1.09 1.05 - 11/19 MH PROFILE . [facility] CHEM PANEL Phosphorus 4.0 2.5 - 4.5 03/14 MH /2019 [facility] CHEM PANEL Magnesium 1.7 1.8 - 2.4 03/14 MH Lvl /2019 [facility] CHEM PANEL Glucose Lvl 100 70 - 99 03/14 MH /2019 [facility] CHEM PANEL BUN 13 7 - 22 03/14 MH /2019 [facility] CHEM PANEL Creatinine 0.50 0.50 - 03/14 MH Lvl 1.40 /2019 [facility] CHEM PANEL Sodium Lvl 142 135 - 145 03/14 /2019 [facility] CHEM PANEL Potassium 3.8 3.5 - 5.1 03/14 MH Lvl /2019 [facility] CHEM PANEL Chloride Lvl 105 95 - 109 03/14 MH /2019 [facility] CHEM PANEL CO2 29 24 - 32 03/14 MH /2019 [facility] CHEM PANEL AGAP 11.8 10.0 - 03/14 MH 20.0 /2020 [facility] CHEM PANEL Calcium Lvl 8.5 8.5 - 10.5 03/14 MH /2019 [facility] CHEM PANEL B/C Ratio 26 6 - 25 03/14 MH /2019 [facility] CHEM PANEL Total 6.9 6.4 - 8.4 03/14 MH Protein /2019 [facility] CHEM PANEL Albumin Lvl 3.1 3.5 - 5.0 03/14 MH /2019 [facility] CHEM PANEL Globulin 3.8 2.7 - 4.2 03/14 MH /2019 [facility] CHEM PANEL A/G Ratio 0.8 0.7 - 1.6 03/14 MH /2020 [facility] CHEM PANEL ALT 132 0 - 65 03/14 MH /2020 [facility] CHEM PANEL AST 184 0 - 37 03/14 MH /2020 [facility] CHEM PANEL Alk Phos 109 39 - 136 03/14 MH /2019 [facility] CHEM PANEL Bili Total 0.4 0.2 - 1.3 03/14 MH /2019 [facility] CHEM PANEL eGFR 125 03/14 Result Comment: The [facility] eGFR is calculated using the CKD-EPI formula. In most young, healthy individuals the eGFR will be >90 mL/min/1.73m2 . The eGFR declines with age. An eGFR of 60-89 may be normal in some populations, particularly the elderly, for whom the CKD-EPI formula has not been extensively validated. Use of the eGFR is not recommended in the following populations:< br/>
Henna viduals with unstable creatinine concentration s, including patients and those with serious co-morbid conditions.<b r/>
Patie nts with extremes in muscle mass or diet.

The data above are obtained from the National Kidney Disease Education Program (NKDEP) which additionally recommends that when the eGFR is used in patients with extremes of body mass index for purposes of drug dosing, the eGFR should be multiplied by the estimated BMI. HEMATOLOGY WBC 9.8 3.7 - 10.4 / MH /2019 [facility] HEMATOLOGY RBC 3.94 4.20 - 03 MH 5.40 /2019 [facility] HEMATOLOGY Hgb 12.4 12.0 - 11/18 MH 16.0 /2019 [facility] HEMATOLOGY Hct 36.6 36.0 - 03 MH 48.0 /2020 [facility] HEMATOLOGY MCV 92.9 80.0 - 03 MH 98.0 /2020 [facility] HEMATOLOGY MCH 31.4 27.0 - 03 MH 31.0 /2020 [facility] HEMATOLOGY MCHC 33.8 32.0 - 03/ MH 36.0 /2020 [facility] HEMATOLOGY RDW 13.1 11.5 - 03/ MH 14.5 /2020 [facility] Platelet 246 133 - 450 / MH /2019 [facility] HEMATOLOGY MPV 8.0 7.4 - 10.4 03/ MH /2019 [facility] HEMATOLOGY PTT 31.4 22.9 - 03/ MH 35.8 /2020 [facility] HEMATOLOGY PT 13.7 12.0 - 03/ MH 14.7 /2020 [facility] HEMATOLOGY INR 1.05 0.85 - 03/ MH 1.17 /2020 [facility] HEMATOLOGY Segs 68.3 45.0 - 03/ MH 75.0 /2020 [facility] HEMATOLOGY Lymphocytes 21.7 20.0 - 03/ MH 40.0 /2020 [facility] HEMATOLOGY Monocytes 7.7 2.0 - 12.0 03/ MH /2019 [facility] HEMATOLOGY Eosinophils 1.7 0.0 - 4.0 03/ MH /2019 [facility] HEMATOLOGY Basophils 0.6 0.0 - 1.0 03/ MH /2020 [facility] HEMATOLOGY Neutrophils 6.7 1.5 - 8.1 03/ MH # /2020 [facility] HEMATOLOGY Lymphocytes 2.1 1.0 - 5.5 03/ MH # /2019 [facility] HEMATOLOGY Monocytes # 0.8 0.0 - 0.8 03/ MH /2019 [facility] HEMATOLOGY Eosinophils 0.2 0.0 - 0.5 03/ MH # /2019 [facility] HEMATOLOGY Basophils # 0.1 0.0 - 0.2 03/ MH /2019 [facility] CHEM PANEL Magnesium 1.9 1.8 - 2.4 03/ MH Lvl /2019 [facility] CHEM PANEL Phosphorus 4.8 2.5 - 4.5 03/ MH /2019 [facility] HEMATOLOGY PT 13.9 12.0 - 03/ MH 14.7 /2019 [facility] HEMATOLOGY INR 1.07 0.85 - 03 MH 1.17 /2019 [facility] HEMATOLOGY PTT 28.3 22.9 - 03 MH 35.8 /2019 [facility] HEMATOLOGY Fibrinogen 436 230 - 510 11/17 Lvl /2019 [facility] LIPIDS Trig 66 <=149 03/ mg/dL /2019 [facility] LIPIDS Chol 134 <=199 11/17 MH mg/dL /2019 [facility] LIPIDS HDL 54 >=61 mg/dL 03 MH /2019 [facility] LIPIDS CHD Risk 2.48 3.90 - 03 MH 5.80 /2019 [facility] LIPIDS LDL 67 <=99 mg/dL 11/17 (Calculated) /2019 [facility] LIPIDS VLDL 13 03 MH /2019 [facility] PARATHYROID Ca Ion WB 1.18 1.05 - 11/17 PROFILE 1.25 [facility] PARATHYROID Ca Norm WB 1.22 1.05 - 11/17 MH PROFILE 1.25 [facility] ELECTROLYTE POC Sodium 139 135 - 145 11/17 Result S Comment: See [facility] note on POC Disclaimer. ELECTROLYTE POC 4.9 3.5 - 5.1 11/17 Result S Potassium Comment: See [facility] note on POC Disclaimer. ELECTROLYTE POC Chloride 102 95 - 109 11/17 Result S Comment: See [facility] note on POC Disclaimer. ELECTROLYTE POC Carbon 31 24 - 32 11/17 Result S Dioxide Comment: See [facility] note on POC Disclaimer. ELECTROLYTE POC BUN 24 7 - 22 11/17 Result S Comment: See [facility] note on POC Disclaimer. ELECTROLYTE POC 0.5 0.5 - 1.4 11/17 Result MH S Creatinine /2019 Comment: See [facility] note on POC Disclaimer. ELECTROLYTE POC Glucose 79 70 - 99 11/17 Result MH S /2019 Comment: See [facility] note on POC Disclaimer. ELECTROLYTE POC Ion Ca 1.22 1.05 - 11/17 Result MH S 1.25 /2019 Comment: See [facility] note on POC Disclaimer. ELECTROLYTE POC 13.9 12.0 - 11/17 Result MH S Hemoglobin 16.0 /2019 Comment: See [facility] note on POC Disclaimer. ELECTROLYTE POC 41.0 36.0 - 11/17 Result MH S Hematocrit 48.0 /2019 Comment: See [facility] note on POC Disclaimer. ELECTROLYTE POC AGAP 12.0 10.0 - 11/17 Result MH S 20.0 Comment: See [facility] note on POC Disclaimer. ELECTROLYTE POC See Note 11/17 MH S Disclaimer *NA* /2019 [facility] (11/18/19 7:16 AM) BLOOD BANK ABO/Rh A POS 11/17 MH RESULTS /2019 [facility] BLOOD BANK Antibody Negative 11/17 RESULTS Scrn (11/18/19 6:55 AM) /2019 [facility] BACTERIAL - MRSA by PCR Negative 11/13 SEROLOGY (11/14/19 3:23 PM) /2019 [facility] BLOOD BANK ABO/Rh A POS 11/13 RESULTS /2019 [facility] BLOOD BANK Antibody Negative 11/13 RESULTS Scrn (11/14/19 3:12 PM) /2019 [facility] CHEM PANEL Total 7.5 6.4 - 8.4 11/13 Protein /2019 [facility] CHEM PANEL Albumin Lvl 3.5 3.5 - 5.0 11/13 /2019 [facility] CHEM PANEL ALT 19 0 - 65 03 [facility] CHEM PANEL AST 15 0 - 37 / [facility] CHEM PANEL Alk Phos 74 39 - 136 11/13 [facility] CHEM PANEL Bili Total 0.2 0.2 - 1.3 11/13 [facility] CHEM PANEL B/C Ratio 17 6 - 25 03/ [facility] CHEM PANEL Globulin 4.0 2.7 - 4.2 / [facility] CHEM PANEL A/G Ratio 0.9 0.7 - 1.6 03/ [facility] HEMATOLOGY PT 12.6 12.0 - 11/13 MH 14.7 /2019 [facility] HEMATOLOGY INR 0.94 0.85 - 11/13 1.17 [facility] Pathology Reports No Data Provided for This Section Diagnostic Reports Report Value Date Source Chest 1view DX PROCEDURE INFORMATION: 11/18/2019 [facility] est Exam: XR Chest, 1 View Exam date and time: 11/18/2019 12:51 PM Age: 54 years old Clinical indication: Angina; Additional info: Ch est pain/pre op testing TECHNIQUE: Imaging protocol: XR of the chest Views: 1 view. COMPARISON: CHEST 2 VIEWS DX 11/14/2019 4:00 PM FINDINGS: Lungs: Unremarkable. No consolidation. Pleural space: No pleural effusion. Heart/Mediastinum: The heart and vascular markings are within limits of normal. Bones/joints: No gross acute findings. IMPRESSION: No acute cardiopulmonary findings. Lakeisha De Anda MD On 11/18/2019 13:18:18; VR-RO OM4 Chest 2 views DX PROCEDURE INFORMATION: 11/14/2019 [facility] Exam: XR Chest, 2 Views Exam date and time: 11/14/2019 4:00 PM Age: 54 years old Clinical indication: /pre op TECHNIQUE: Imaging protocol: XR of the chest Views: 2 views. PA and Lateral COMPARISON: No relevant prior studies available. FINDINGS: Lungs: No focal consolidation. Pleural space: No pleural effusion or pneumothor ax. Heart/Mediastinum: No cardiomegaly. Midline trac hea. Vasculature: Atherosclerotic calcifications of t he aortic arch. Bones/joints: Degenerative changes of the spine and shoulders. IMPRESSION: No acute cardiopulmonary findings. Tc Ramirez MD On 11/14/2019 16:48:19; V [id number] Consultation Notes No Data Provided for This Section Discharge Summaries No Data Provided for This Section History and Physicals No Data Provided for This Section Vital Signs Vital Sign Value Date Comments Source Heart Rate 95 11/21/2019 [facility] Respitory Rate 18 11/21/2019 [facility] Systolic (mm Hg) 171 11/21/2019 [facility] t Diastolic (mm Hg) 82 11/21/2019 [facility] Heart Rate 90 11/21/2019 [facility] Respitory Rate 18 11/21/2019 [facility] Systolic (mm Hg) 130 11/21/2019 [facility] t Diastolic (mm Hg) 77 11/21/[address] [facility] Heart Rate 83 11/21/2019 [facility] Respitory Rate 18 11/21/2019 [facility] Systolic (mm Hg) 138 11/21/2019 [facility] t Diastolic (mm Hg) 79 11/21/[address] [facility] st Temperature Oral (F) 98.3 F 11/18/2019 [facility] Weight 79.091 11/18/2019 [facility] BMI Calculated 29.93 11/18/2019 [facility] Height 162.56 cm 11/14/2019 [facility] Systolic (mm Hg) 142 11/14/2019 [facility] Diastolic (mm Hg) 84 11/14/2019 [facility] Heart Rate 81 11/14/2019 [facility] Height 162.56 cm 11/14/2019 [facility] Weight 81.051 11/14/2019 [facility] BMI Calculated 30.67 11/14/2019 [facility] Encounters Location Location Encounter Encounter Reason Attending ADM NM Stat us Source Details Type Number For Provider Date Date Visit Outpatient [id number] THANH 11/12 [facility] [place] Outpatient [id number] THANH 11/30 [facility] [place] Outpatient [id number] THANH 02/02 [facility] [place] [facility]NA Spine Phone [id number] 04/07 04/09 [facility] C Message /2017 Neuro MNA Phone [id number] 04/28 04/30 [facility] her Neurosurger Message /2017 [facility] [id number] NURSE 11/13 [facility] VISIT [place] Outpatient [id number] [place] 11/13 [facility] [id number] [place] 11/13 11/14 Cardiology Maniar /2019 [facility] Outpatient [id number] [place] 11/13 11/14 Cardiology Maniar /2019 Medica l [id number] [facility] Marco /2019 [facility] MNA Outside [id number] 12/22 12/24 [facility] Neurology Medical /2019 Neuro [facility] Outpatient [id number] [place] 05/16 [facility] Ambulatory [id number] [place] 07/23 07/23 Cardiology Pre-Reg [facility] Medic al [facility] Procedures Procedure Code Date Perfomer Comments Source Appendectomy [id number] Medical Group,[facility] Neuro,[facility] Cataract [id number] Medical extraction Group,[facility] Gallbladder [id number] Medical operation Group,[facility] Hysterectomy [id number] Medical Group,[facility] Knee [id number] bilateral Medical replacement<sup>1< Group, [facility] /sup> Neuro,[facility] Lumbar laminectomy [id number] Med ical and excision of Group,Mis macario intradural spinal Neuro,M H lesion [facility] Rotator cuff [id number] Medical repair Group,[facility] Assessment and Plan Assessment and Plan Date Source Extracted from:Title: Progress Note 11/21/2019 [facility] Author: Miguelangel Lara MD Date: 11/21/19 54 year old s/p left carotid endarterectomy POD #3 -Pain control -BP controlled on HCTZ and losartan -Continue ASA 81 mg and statin -OOB/Ambulate -Discharge patient home today on ASA 81 and statin; follow up in 2 weeks. I instructed patient to check her blood pressure twice daily for the next few weeks. If pressure is below 100 or above 140s con sistently, then she should call her PCP or my office. SCD Discharge home Extracted from:Title: History and Physical Author: Miguelangel Lara MD Date: 11/18/19 54 year old female with medical history of DM, HTN, HLD who presented with possible TIA in early October to [facility]. She was found to have severe stenosis of left carotid artery on MRA and ultrasound with minimal disease on right side. -Patient will be scheduled for left ca rotid endarterectomy. Indications, alternatives, risks andbenefits were explained to patient.Patient will be admitted toCVICU post-operatively. Plan of Care No Data Provided for This Section Social History Social History Date Source Social History TypeResponse 11/14/2019 [facility] Alcohol Never Substance Abuse Use: None. Smoking Status Never smoker; Exposure to Tobacco Smoke None; Cigarette Smoking Last 365 Days No; Reg Smoking Cessation Counseling No entered on: 11/18/19 Social History TypeResponse 11/14/2019 [facility] Alcohol Never Substance Abuse Use: None. Smoking Status Never smoker; Exposure to Tobacco Smoke None; Cigarette Smoking Last 365 Days No; Reg Smoking Cessation Counseling No entered on: 11/18/19 Social History TypeResponse 11/14/2019 [place] Alcohol Never Substance Abuse Use: None. Smoking Status Never smoker; Exposure to Tobacco Smoke None; Cigarette Smoking Last 365 Days No; Reg Smoking Cessation Counseling No entered on: 11/18/19 Family History No Data Provided for This Section Advance Directives No Data Provided for This Section Functional Status No Data Provided for This Section
--- OUTSIDE RECORDS SUMMARY | 2020-10-11 08:36 | XMS REPORT | Continuity of Care Document ---
:1965 Author Organization [facility] t Address [address] [place] [address] Care Team Providers Name Role Phone Richard HAJI Primary Care Physician Arnulfo BRAGA, S Attending Clinician Zuleika BRINK, L Attending Clinician Natali Hurst Attending Clinician Chika, I Attending Clinician Chika, I Admitting Clinician Problems Condition Condition Condition Status Onset Resolution Last Treating Co mments Source Name Details Category Date Date Treatment Clinician Date N/A Diagnosis Active 2019-11-16 [facility] oria 3 09:55:00 l N/A 00:00: Solomon 00 Active 11/08/2019 [facility] I65.22 Diagnosis Active 0 2019-11-24 Mem oria 3-03 21:49:00 l I65.22 00:00: [place] 00 Active 11/08/2019 [facility] Degenerati Degenerati Disease Active 2017- H connie on of on of 09-15 Methodi interverte interverte 00:00: st bral disc bral disc 00 of of lumbosacra lumbosacra l region l region Uncontroll Uncontroll Problem Active [facility] ed type 2 ed type 2 Luke s - diabetes diabetes Memori a mellitus mellitus l with with Outpati hyperglyce hyperglyce en [facility] Anxiety Anxiety Problem [facility] Asthma, Asthma, Problem Active [facility] unspecifie unspecifie Verenice kes - d asthma d asthma Memori a severity, severity, l unspecifie unspecifie Ou tpati d whether d whether ent complicate complicate Cl inics d, d, unspecifie unspecifie d whether d whether persistent persistent Diabetes Diabetes Problem [facility] Swelling Swelling Problem [facility] High blood High blood Problem Active [facility] pressure pressure [facility] Sinus Sinus Problem Active [facility] problem problem [facility] High High Problem Active [facility] cholestero cholestero Verenice kes - l l [facility] Depression Depression Problem Active [facility] with with [facility] anxiety anxiety [facility] Acquired Acquired Problem Active [facility] hypothyroi hypothyroi Verenice kes - dism dism [facility] Chronic Chronic Problem Active [facility] pain pain [facility] syndrome syndrome [facility] Polyarthra Polyarthra Problem Active [facility] lgia lgia [facility] Gastroesop Gastroesop Problem Active [facility] hageal hageal [facility] - reflux reflux Memoria disease, disease, l esophagiti esophagiti Ou tpati s presence s presence en t not not Clinics specified specified Chronic Chronic Problem Active [facility] obstructiv obstructiv Verenice kes - e e Memoria pulmonary pulmonary l disease, disease, Outpat i unspecifie unspecifie en t d COPD d COPD Clinics type type Abnormal Abnormal Problem Active [facility] urine odor urine odor Verenice kes - [facility] Hoarseness Hoarseness Problem Active [facility] Hyperlipid Hyperlipid Problem Active [facility] emia, emia, [facility] - unspecifie unspecifie Me moria d d l hyperlipid hyperlipid Ou tpati emia type emia type ent Clinics Sore Sore Problem Active [facility] throat throat [facility] Non-intrac Non-intrac Problem Active [facility] table table [facility] - vomiting vomiting Memori a with with l nausea, nausea, Outpati unspecifie unspecifie en t d vomiting d vomiting Cl inics type type Chest Chest Problem Active [facility] tightness tightness [facility] - [facility] Exposure Exposure Problem Active [facility] t to mold to mold [facility] Wheezing Wheezing Problem [facility] Shortness Shortness Problem Active [facility] of breath of breath Luke s - Memoria l [facility] Itching Itching Problem Active [facility] Muscle Muscle Problem Active [facility] cramping cramping [facility] Right leg Right leg Problem Active [facility] pain pain [facility] Acute Acute Problem Active [facility] right-side right-side Verenice kes - d thoracic d thoracic Me moria back pain back pain l [facility] Low back Low back Problem Active [facility] pain pain [facility] Other Other Problem Active [facility] chronic chronic [facility] - pain pain Memoria l [facility] Lumbago Lumbago Problem Active [facility] with with [facility] - sciatica, sciatica, Brennen oscar right side right side l [facility] Status Status Problem Active [facility] post fall post fall Luke s - Memoria l [facility] Dizziness Dizziness Problem Active [facility] Imbalance Imbalance Problem Active [facility] Difficulty Difficulty Problem Active [facility] sleeping sleeping [facility] Acute Acute Problem Active [facility] stress stress [facility] - reaction reaction Memori a l [facility] 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[facility] - both both Memoria carotid carotid l arteries arteries Outpat ent Clinics Stenosis Stenosis Problem Active [facility] t of left of left [facility] - carotid carotid Memoria artery artery l [facility] Status Status Problem Active [facility] post CVA post CVA [facility] Stenosis Stenosis Problem Active [facility] of right of right [facility] - carotid carotid Memoria artery artery l [facility] Occlusion Problem 2019-11-23 Me moria and 21:46:33 l stenosis [place] of left Occlusion carotid and artery stenosis of left carotid artery 11/23/2019 [facility] Carotid Problem Active 2020-07-25 Brennen oscar artery 22:46:12 l stenosis Carotid Keisha nn (disorder) artery stenosis (disorder) Active Problem 07/25/2020 [facility] her Neuro,[facility] Carpal Problem Active 2020-07-25 Memor ia tunnel 22:46:12 l syndrome Carpal Andrei n (disorder) tunnel syndrome (disorder) Active Problem 07/25/2020 [facility] her Neuro,[facility] Diabetes Problem Active 2020-07-25 Mem oria mellitus 22:46:12 l (disorder) Diabetes He rmann mellitus (disorder) Active Problem 07/25/2020 [facility] her Neuro,[facility] Diabetes Problem Active 2020-07-25 Mem oria mellitus 22:46:12 l type 2 Diabetes Andrei n (disorder) mellitus type 2 (disorder) Active Problem 07/25/2020 [facility] Group,[facility] her Neuro,[facility] Disorder Problem Active 2020-07-25 Mem oria of carotid 22:46:12 l artery Disorder Andrei n (disorder) of carotid artery (disorder) Active Problem 07/25/2020 [facility] her Neuro,[facility] Hypertensi Problem Active 2020-07-25 M emoria ve 22:46:12 l disorder, Solomon systemic Hypertensi arterial ve (disorder) disorder, systemic arterial (disorder) Active Problem 07/25/2020 [facility] Group,[facility] her Neuro,[facility] Hyperlipid Problem Active 2020-07-25 M emoria emia 22:46:12 l (disorder) Andrei n Hyperlipid emia (disorder) Active Problem 07/25/2020 Medical Group,[facility] her Neuro,[facility] Hypothyroi Problem Active 2020-07-25 M emoria dism 22:46:12 l (disorder) Andrei n Hypothyroi dism (disorder) Active Problem 07/25/2020 Medical Group,[facility] her Neuro,[facility] Simple Problem Active 2020-07-25 Memor ia obesity 22:46:12 l (disorder) Simple Herm mary obesity (disorder) Active Problem 07/25/2020 [facility] her Neuro,[facility] OCCLUSION Diagnosis Active 2019-11-24 Memoria AND 21:49:00 l STENOSIS Solomon OF LEFT OCCLUSION CAROTID A AND STENOSIS OF LEFT CAROTID A Active [facility] Allergies, Adverse Reactions, Alerts Allergy Allergy Status Severity Reaction(s) Onset Inactive Treating Comm ents Source Name Type Date Date Clinician No Known No Known Active Memori a Medicati Medicati l on on Solomon Allergmara Allergmara s s Family History Family Member Diagnosis Comments Start Date Stop Date Source Natural mother COPD [facility] Natural mother Hyperlipidemia [place] [facility] Natural mother Hypertension [place] [facility] Social History Social Habit Start Date Stop Date Quantity Comments Source History of tobacco Current smoker [place] [facility] use Sex Assigned At [facility] ethodi Social History 2019-11-14 2019-11-14 [facility] 21:12:20 21:12:20 Cigarettes smoked 2018-07-19 2018-07-19 [place] [facility] current (pack per 00:00:00 00:00:00 day) - Reported Tobacco use and 2018-07-19 2018-07-[address] [facility] ethodist exposure 00:00:00 00:00:00 Alcohol intake 2018-07-19 2018-07-19 Current [facility] 00:00:00 00:00:00 non-drinker of alcohol (finding) Smoking Status Start Date Stop Date Source Former smoker 2018-07-19 00:00:00 2018-07-19 00:00:00 [place] [facility] Medications Ordered Filled Start Stop Current Ordering Indication Dosage Frequency Signature Comments Components Source Medication Medication Date Date Medication? Clinician (SIG) Name Name Aspirin 81 2019-0 Yes 81 mg = 1 Me moria MG Chewable 3-16 tab, PO, l Tablet 17:44: Daily, # 90 tab, 0 Refill(s), Pharmacy: [id number] Esomeprazol 2019-0 No 40 mg, 1 Me moria e 3-16 cap, l 14:00: Route: PO, Drug form: ECCAP, Daily, Dosing Weight 79.091, kg, Start date: 11/21/19 9:00:00 CDT, Duration: 30 day, Stop date: 12/20/19 9:00:00 CDT Estradiol 2019-0 No Notes: Memori a 3-16 Hazardous l 14:00: Drug Group 2:Non-anti neoplastic Hazardous Drug -- Refer to safe handling procedure PPE [employer] Fluticasone 2019-0 No Notes: Brennen oscar propionate 3-16 (Same as: l 0.05 14:00: Flonase) [place] MG/ACTUAT 00 Metered Dose Nasal [place] [Flonase] Hydrochloro No 1 tab, Brennen oscar thiazide 25 3-16 Route: PO, l MG / 14:00: Drug Form: [place] Losartan 00 TAB, Potassium Dosing 100 MG Oral Weight Tablet 79.091, kg, Daily, Start date: 11/21/19 9:00:00 CDT, Duration: 30 day, Stop date: 12/20/19 9:00:00 CDT pantoprazol No Notes: Brennen oscar e 3-16 Tablet l 14:00: should not Solomon 00 be chewed or crushed. (Same as: Protonix) Trulance 3 No Trulance 3 M emoria mg oral 3-16 mg oral l tablet 14:00: tablet, 3 Andrei n 00 mg, Route: PO, Daily, 11/21/19 9:00:00 CDT, Duration: 30 day, Stop date: 12/20/19 9:00:00 CDT Januvia No Notes: Memoria 3-16 Same as l 14:00: Januvia Solomon 00 Insulin No Notes: Memoria Glargine 3-16 (Same as: l 100 UNT/ML 14:00: Lantus) Do H ermann Injectable 00 not hold Solution insulin [Lantus] without contacting prescriber WASTE: F/P - Black; E - Municipal Trash Bin "single patient use only" Stable for 28 days at room temperatur e Expires in days from ____Date hydrochloro No Notes: Brennen oscar thiazide 25 3-16 (Same as: l mg oral 14:00: Hydrodiuri Herm mary tablet 00 l) With food. Cozaar No Notes: Memoria 3-16 (Same as: l 14:00: Cozaar) [place] 00 Thyroxine No Notes: Memori a 3-16 Take 1 l 11:30: hour [place] 00 before or 2 hours after meal; Enteral feeds may interefere with the absorption of this medication . (Same as:Levothr oid) Insulin No Notes: Memoria Glargine 3-16 (Same as: l 100 UNT/ML 02:15: Lantus) Do H ermann Injectable 00 not hold Solution insulin [Lantus] without contacting prescriber WASTE: F/P - Black; E - Municipal Trash Bin "single patient use only" Stable for 28 days at room temperatur e Expires in days from ____Date Humalog No Notes: Memoria 3-16 (Same as: l 02:00: Humalog) Solomon Roll in palms of hands gently; Do not shake vigorously . WASTE: F/P - Black; E - Municipal Trash Bin Stable for 28 days at room temperatur e. Expires in days from ____Date montelukast No Notes: Brennen oscar 3-16 (Same l 02:00: as:Singula [place] 00 ir) Simvastatin No Notes: Brennen oscar 3-16 (Same as: l 02:00: Zocor) [place] 00 Insulin, No 10 unit, Memor ia Aspart, 11-20 Route: l Human 01:39: SUB-Q, [place] 00 ONCE, Dosing Weight 79.091, kg, Priority: NOW, Start date: 11/20/19 20:39:00 CDT, Stop date: 11/20/19 20:39:00 CDT Buspirone No Notes: Memori a 3-15 (Same As: l 22:00: BuSpar) Solomon 00 Amitiza No Notes: Memoria 3-15 Same as l 22:00: Amitiza [place] 00 (Do Not Crush) Non Formulary Acetaminoph No Notes: Do M emoria en 325 MG / 3-15 not exceed l Hydrocodone 18:53: 4gm/day of [place] Bitartrate 00 acetaminop 10 MG Oral hen. Tablet (Same as: [[place] 10/325] 325/10) Albuterol No Notes: Memori a 0.833 MG/ML 3-15 (Same as: l / 18:49: Duoneb) Ipratropium 00 [place] 0.167 MG/ML Inhalant Solution Tylenol No Notes: Do Memor ia 3-15 not exceed l 18:20: 4 gm/day. [place] (Same as: Tylenol) Labetalol No Notes: Memori a 3-15 (Same as: l 17:11: Normodyne, Solomon 00 Trandate) Push over 2 minutes Give bolus over 2-3 minutes. heparin No 5,000 Memoria 3-15 unit, l 14:23: Route: [place] 00 SUB-Q, Q8H-06, Dosing Weight 79.091, kg, Priority: STAT, Start date: 11/20/19 9:23:00 CDT, Duration: 30 day, Stop date: 12/20/19 6:00:00 CDT Lexapro 2019- No 10 mg, Memoria 3-15 Route: PO, l 14:15: Drug form: [place] TAB, Daily, Dosing Weight 79.091, kg, Priority: STAT, Start date: 11/20/19 9:15:00 CDT, Duration: 30 day, Stop date: 12/20/19 9:00:00 CDT Furosemide No Notes: Memor ia 3-15 (Same as: l 14:00: Lasix) May cause GI upset. Give with food or milk. Losartan No Notes: Memoria 3-15 (Same as: l 14:00: Cozaar) Humalog No Notes: Memoria 3-15 (Same as: l 08:52: Humalog) Roll in palms of hands gently; Do not shake vigorously . WASTE: F/P - Black; E - Municipal Trash Bin Stable for 28 days at room temperatur e. Expires in days from ____Date Dextrose No 50 mL, Memoria 50% in 3-15 Route: l Water IV 08:52: IVP, Start Her date: 11/20/19 3:52:00 CDT, Duration: 30 day, Stop date: 12/20/19 3:51:00 CDT, PRN Blood Glucose Results, 0 glucagon No 1 mg, Memoria 3-15 Route: l 08:52: INJ, Drug form: PDR/INJ, PRN, PRN Blood Glucose Results, Start date: 11/20/19 3:52:00 CDT, Duration: 30 day, Stop date: 12/20/19 3:51:00 CDT, 0 Humalog 2019- No Notes: Memoria 3-15 (Same as: l 08:51: Humalog) Roll in palms of hands gently; Do not shake vigorously . WASTE: F/P - Black; E - Municipal Trash Bin Stable for 28 days at room temperatur e. Expires in days from ____Date Labetalol No Notes: Memori a 3-15 (Same as: l 06:25: Normodyne, Trandate) Push over 2 minutes Give bolus over 2-3 minutes. Hydralazine No Notes: Brennen oscar 3-15 (Same as: l 03:35: Apresoline ) Push over 5 minutes Furosemide 2019-0 No Notes: Memor ia 3-14 (Same as: l 23:33: Lasix) Losartan 2019-0 No Notes: Memoria 3-14 (Same as: l 23:33: Cozaar) POLYETHYLEN 2019-0 No Notes: Brennen oscar E GLYCOL 3-14 Dissolve l 3350 14:00: in 8 oz of water or juice. (Same as: Miralax) Aspirin 2019-0 No Notes: Memoria 3-14 Take with l 14:00: food. phenol 2019-0 No Notes: Memoria 3-14 Chlorasept l 02:54: ic [place] (Same as: Chlorasept ic, Sore Throat [place]) WASTE: F/P - Black; E - Municipal Trash Bin Famotidine 2019-0 No Notes: Memor ia 3-14 (Same as: l 02:00: Pepcid) Can be dilute in 5-10cc NS IVP: Slow IV push over at least 2 minutes. Saline No Notes: Memoria Flush 0.9% 3-14 (Same as: l 02:00: BD Posiflush) gabapentin No Notes: Memor ia 3-14 (Same as: l 02:00: Neurontin) glucagon No 1 mg, Memoria 3-14 Route: l 01:54: INJ, Drug form: PDR/INJ, PRN, PRN Blood Glucose Results, Start date: 11/18/19 20:54:00 CDT, Duration: 30 day, Stop date: 12/18/19 20:53:00 CDT, 0 Humalog No Notes: Memoria 3-14 (Same as: l 01:53: Humalog) Roll in palms of hands gently; Do not shake vigorously . WASTE: F/P - Black; E - Municipal Trash Bin Stable for 28 days at room temperatur e. Expires in days from ____Date Dextrose No 50 mL, Memoria 50% in - Route: l Water IV 01:53: IVP, Start Her date: 11/18/19 20:53:00 CDT, Duration: 30 day, Stop date: 12/18/19 20:52:00 CDT, PRN Blood Glucose Results, 0 Humalog No Notes: Memoria 3-14 (Same as: l 01:52: Humalog) Roll in palms of hands gently; Do not shake vigorously . WASTE: F/P - Black; E - Municipal Trash Bin Stable for 28 days at room temperatur e. Expires in days from ____Date Lasix 2019- No Notes: Memoria 3-13 (Same as: l 22:49: Lasix) MEDICATION WASTE Product Size: 40 mg Product Wasted: ___ mg Losartan 2019- No Notes: Memoria 3-13 (Same as: l 22:49: Cozaar) ceFAZolin + No Notes: Brennen oscar sterile 3-13 (Same As: l water 20 mL 21:00: Ancef, Herm mary Kefzol) MEDICATION WASTE Product Size: 1000 mg Product Wasted: ___ mg Zofran 2019- No Notes: Memoria 3-13 (Same as: l 19:19: Zofran) [place] 00 MEDICATION WASTE Product Size: 4 mg Product Wasted: ___ mg Albuterol 2019- No Notes: Memori a 0.833 MG/ML 3-13 (Same as: l / 17:26: Duoneb) Ipratropium 00 [place] 0.167 MG/ML Inhalant Solution Saline No Notes: Memoria Flush 0.9% 3-13 (Same as: l 17:26: BD [place] 00 Posiflush) Potassium No Notes: Memori a Chloride 3-13 (Same as: l 17:26: KCL) Infuse no faster than 10 mEq/hr if given peripheral ly. sodium No Notes: Memoria phosphate 3-13 Infuse l 17:26: over 4 hour. Do not infuse phosphorou s concurrent ly in the same line as TPN or IVF that contains calcium. For double lumen central lines, phosphorou s may be infused in a separate lumen from TPN. potassium 2019- No Notes: Memori a phosphate 3-13 (Same as: l 17:26: K Phosphate. ) Do not infuse phosphorou s concurrent ly in the same line as TPN or IVF that contains calcium. For double lumen central lines, phosphorou s may be infused in a separate lumen from TPN. 1 mMol phoshate has 1.47 mEq potassium Infuse over 4 hours potassium 2019- No Notes: Memori a phosphate-s 3-13 (Same as: l odium 17:26: Phos-NaK) phosphate 00 Each 1.5 250 mg-280 gm pkt has mg-160 mg 250mg oral powder phosphorou for s. Mix reconstitut w/2.5oz ion water and stir. Magnesium 2019- No Notes: Memori a Sulfate 3-13 WASTE: F/P l 17:26: - Sink; E - Municipal Trash Bin Magnesium 2019-0 No Notes: Memori a Oxide 3-13 (Same as: l 17:26: Mag-Ox Solomon 00 400) Magnesium oxide [id number] g elemental magnesium Dose=____m g magnesium oxide (___mg elemental magnesium) Calcium No Notes: Memoria Gluconate 3-13 WASTE: F/P l 17:26: - Sink; E Solomon 00 - Municipal Trash Bin Calcium No Notes: Memoria Carbonate 3-13 (Same As: l 500 MG 17:26: Tums) Solomon Chewable 00 Calcium Tablet Carbonate 500 mg = 200 mg elemental calcium Dose = mg calcium carbonate ( mg elemental calcium) Acetaminoph No Notes: Do M emoria en 3-13 not exceed l 17:00: 4 gm/day. (Same as: Tylenol) gabapentin No Notes: Memor ia 3-13 (Same as: l 16:39: Neurontin) Oxycodone No Notes: Memori a Hydrochlori -13 (Same as: l de 5 MG 16:39: Roxicodone Herm mary Oral Tablet ) Tramadol No Notes: Not Mem oria 3-13 to exceed l 16:39: 400mg/day. (Same As: Ultram) niCARdipine No Route: IV, Memoria (ANES) 3-13 Drug form: l 16:24: INJ, ONCE, Stop date: 11/18/19 11:24:00 CDT Diltiazem No 10 mg, Memori a 3-13 Route: IV, l 16:24: ONCE, Dosing Weight 79.091, kg, Start date: 11/18/19 11:24:00 CDT, Stop date: 11/18/19 11:24:00 CDT Hydromorpho No 0.5 mg, Mem oria ne -13 Route: l 16:24: IVP, ONCE, Dosing Weight 79.091, kg, Priority: STAT, Start date: 11/18/19 11:24:00 CDT, Stop date: 11/18/19 11:24:00 CDT Nicardipine 2020-0 No Notes: Brennen oscar 3-13 Same as: l 16:20: Cardene Concentrat ion: (0.2 mg /1 ml ) ondansetron No Route: IV, Memoria (ANES) 3-13 Drug form: l 16:13: INJ, ONCE, Stop date: 11/18/19 11:13:00 CDT Nicardipine 2019-0 No Notes: Brennen oscar 3-13 Same as: l 16:12: Cardene Concentrat ion: (0.2 mg /1 ml ) Acetaminoph 2019- No Notes: Brennen oscar en 3-13 Infuse l 16:09: over 15 minutes Do not exceed 4gm/day of acetaminop hen MEDICATION WASTE Product Size: 1000 mg Product Wasted: ___ mg calcium No Route: IV, Brennen oscar chloride 3-13 Drug form: l (ANES) 15:52: INJ, ONCE, Stop date: 11/18/19 10:52:00 CDT protamine No Route: IV, Me moria (ANES) 10 3-13 Drug form: l mg 15:17: INJ, Start date: 11/18/19 10:17:00 CDT, Stop date: 11/18/19 11:17:00 CDT heparin No Route: IV, Brennen oscar (ANES) 3-13 Drug form: l 14:46: INJ, ONCE, Stop date: 11/18/19 9:46:00 CDT ePHEDrine 2019-0 No Route: IV, Me moria (ANES) 3-13 Drug form: l 14:20: INJ, ONCE, Stop date: 11/18/19 9:20:00 CDT phenylephri 2019-0 No Route: IV, Memoria ne (ANES) 3-13 Drug form: l 14:15: INJ, ONCE, Stop date: 11/18/19 9:15:00 CDT fentaNYL 2019-0 No Route: IV, Mem oria (ANES) 3-13 Drug form: l 14:05: INJ, ONCE, Stop date: 11/18/19 9:05:00 CDT propofol 2020-0 No Route: IV, Mem oria (ANES) 3-13 Drug form: l 14:05: INJ, ONCE, Stop date: 11/18/19 9:05:00 CDT rocuronium 2020-0 No Route: IV, M emoria (ANES) 3-13 Drug form: l 14:05: INJ, ONCE, Stop date: 11/18/19 9:05:00 CDT ceFAZolin 2020-0 No Route: IV, Me moria (ANES) 3-13 Drug form: l 14:05: INJ, ONCE, Stop date: 11/18/19 9:05:00 CDT sodium 2020-0 No Route: IV, Memor ia chloride 11-17 Drug form: l (ANES) 19 13:27: INJ, Start He rmann mL + 00 date: remifentani 11/18/19 l (ANES) 1 8:27:00 mg CDT, Stop date: 11/18/19 9:27:00 CDT Isolyte S 2020-0 No Route: IV, Me moria PH 7.4 3- Total l (ANES) 1000 12:45: Volume: Her marmolejo mL 00 1,000, Start date: 11/18/19 7:45:00 CDT, Stop date: 11/18/19 8:45:00 CDT Metoprolol 2020-0 No Notes: Memor ia 3-13 (Same as: l 11:36: Lopressor) Push over 2 minutes Sodium 2020-0 No 250 mL, Memoria Chloride 3- Rate: To l 0.9% 11:36: prime line [place] (titrate) 00 and flush 250 mL remaining blood products., Dosing Weight 81.023, kg, Route: IV, Total Volume: 250, Start Date: 11/18/19 6:36:00 CDT, Duration: 1 day, Stop date: 11/19/19 6:35:00 CDT, Replace Every: 24 hr, 0 Januvia 2020-0 Yes PO, Daily, Brennen oscar 3-09 unknown l 21:02: dose, 0 Refill(s) Sodium 2020-0 No 250 mL, Memoria Chloride 3- Rate: To l 0.9% 20:03: prime line Solomon (titrate) 00 and flush 250 mL remaining blood products., Dosing Weight 81.023, kg, Route: IV, Total Volume: 250, Start Date: 11/14/19 15:03:00 CDT, Duration: 1 day, Stop date: 11/15/19 15:02:00 CDT, Replace Every: 24 hr, 0 Hydrochloro 2020-0 Yes 1 tab, PO, Memoria thiazide 25 3-09 Daily, # l MG / 18:03: 30 tab, 0 [place] Losartan 00 Refill(s) Potassium 100 MG Oral Tablet Albuterol 2020-0 Yes 3 mL, Memoria 0.833 MG/ML 11-13 INHALATION l / 18:03: , Q6H, PRN [place] Ipratropium 00 Wheezing, [place] # 30 ea, 1 0.167 MG/ML Refill(s) Inhalant Solution Fluticasone 2020-0 Yes NASAL, Brennen oscar propionate 3-09 Daily, 0 l 0.05 18:03: Refill(s) Solomon MG/ACTUAT 00 Metered Dose Nasal [place] [Flonase] meloxicam 2020-0 Yes 15 mg = 1 Mem oria 15 mg oral 3-09 tab, PO, l tablet 18:03: Daily, # [place] 00 30 tab, 0 Refill(s) busPIRone 2020-0 Yes 10 mg = 1 Mem oria 10 mg oral 3-09 tab, PO, l tablet 18:03: BID, 0 [place] 00 Refill(s) Esomeprazol 2020-0 Yes 40 mg = 1 M emoria e 40 MG 3-09 cap, PO, l Enteric 18:03: Daily, # Andrei n Coated 00 30 cap, 0 Capsule Refill(s) ondansetron 2020-0 Yes 4 mg = 1 Me moria 4 mg oral 3-09 tab, PO, l tablet 18:03: BID, # 10 Andrei n 00 tab, 0 Refill(s) lubiproston 2020-0 Yes 24 Memori a e 0.024 MG 3-09 microgram l Oral 18:03: = 1 cap, [place] Capsule 00 PO, BID, 0 [Amitiza] Refill(s) magnesium 2020-0 No 400 mg = 1 Me moria oxide 400 3-09 tab, PO, l mg oral 18:03: Daily, # Andrei n tablet 00 30 tab, 1 Refill(s) pantoprazol 2020-0 Yes 40 mg = 1 M emoria e 40 mg 3-09 tab, PO, l oral 18:03: Daily, # Solomon enteric 00 30 tab, 1 coated Refill(s) tablet montelukast 2020-0 Yes 10 mg = 1 M emoria 10 mg oral 3-09 tab, PO, l tablet 18:03: Bedtime, # Keisha nn 00 30 tab, 0 Refill(s) plecanatide 2020-0 Yes 3 mg = 1 Me moria 3 MG Oral 3-09 tab, PO, l Tablet 18:03: Daily, 0 Solomon [Trulance] 00 Refill(s) HYDROcodone 2017-09 Yes 1{tbl} Q.[id number] Take 1 Ruvalcaba -acetaminop 09-20 [id number] tablet by Methodi hen (NORCO) 15:45: 3D mouth [facility] st 7.5-325 mg 51 (three) per tablet times a day. methocarbam 2017-09 Yes 750mg Q.[id number] Take 750 Ruvalcaba ol -14 [id number] mg by Methodi (ROBAXIN) 15:45: 3D mouth 3 st 500 MG 51 (three) tablet times a day. Takes 500 mg 1.5 TAB. (750 mg) gabapentin 2017-09 Yes 600mg QD Take 600 [place] (GRALISE) 1-14 mg by Methodi 600 mg 15:45: mouth st tablet 51 daily. extended release 24 hr montelukast 2017-09 Yes 10mg QD Take 10 mg Ruvalcbaa (SINGULAIR) -14 by mouth Meth bharati 10 mg 15:45: daily. st tablet 51 esomeprazol 2017-09 Yes 40mg QD Take 40 mg Ruvalcaba e (NexIUM) -14 by mouth Metho di 40 MG 15:45: daily. st capsule 51 pantoprazol 2017-09 Yes 40mg QD Take 40 mg Ruvalcaba e -14 by mouth Methodi (PROTONIX) 15:45: daily. st 40 MG EC 51 tablet amitriptyli 2017-09 Yes 25mg QD Take 25 mg Ruvalcaba ne (ELAVIL) -14 by mouth Meth bharati 25 MG 15:45: every st tablet 51 morning. losartan-hy 2017-09 Yes 1{tbl} QD Take 1 [place] drochloroth 1-14 tablet by Met hodi iazide 15:45: mouth st (HYZAAR) 51 every 100-25 mg morning. per tablet simvastatin 2017-09 Yes 10mg QD Take 10 mg Ruval[place]aba (ZOCOR) 10 1-14 by mouth Metho di MG tablet 15:45: nightly. st 51 estradiol 2017-09 Yes .5mg QD Take 0.5 [place] (ESTRACE) 1-14 mg by Methodi 0.5 MG 15:45: mouth st tablet 51 daily. tiZANidine 2017-09 Yes 2mg Q.5D Take 2 mg [place] (ZANAFLEX) 1-14 by mouth 2 Met hodi 2 MG tablet 15:45: (two) st 51 times a day as needed for muscle spasms. liraglutide 2017-09 Yes 1.8mg QD Inject 1.8 [place]val[place] (VICTOZA) 1-14 mg under Method i 0.6 mg/0.1 15:45: the skin st mL (18 mg/3 51 daily. mL) pen injector insulin 2017-09 Yes 85U QD Inject 85 [place] degludec 1-14 Units Methodi (TRESIBA 15:45: under the st FLEXTOUCH 51 skin every U-100) 100 morning. unit/mL (3 mL) insulin pen aspirin 2017-09 Yes 81mg QD Take 81 mg [place] (ECOTRIN) 1-14 by mouth Method i 81 MG 15:45: daily. st enteric 51 coated tablet MAGNESIUM 2017-09 Yes 1{tbl} QD Take 1 [place] ORAL 1-14 tablet by Methodi 15:45: mouth st 51 daily. Pure Magnesium albuterol 2017-09 Yes 1{puff} Q.[id number] Inhale 1 Ruvalcaba (PROAIR 1-14 [id number] puff 3 Meth bharati HFA,PROVENT 15:45: 3D (three) st [place] 51 times a HFA,VENTOLI day as N HFA) 90 needed for mcg/actuati wheezing on inhaler or shortness of breath. meloxicam 2017-09 Yes 15mg QD Take 15 mg [place] (MOBIC) 15 1-14 by mouth Metho di mg tablet 15:45: daily. st 51 DULoxetine 2017-09 Yes 20mg QD Take 20 mg [place] (CYMBALTA) 1-14 by mouth Metho di 20 MG 15:45: daily. st capsule 51 methocarbam 2017-09 Yes 750mg Q8H Take 1 Betito ston ol 1-09 tablet Methodi (ROBAXIN-75 00:00: ([address] 0) 750 MG 00 total) by tablet mouth every 8 (eight) hours as needed for muscle spasms for up to 40 doses. BusPIRone BusPIRone Yes Tawana [address] HCl HCl [facility] Vital Signs Vital Name Observation Time Observation Value Comments Source Heart Rate 2019-11-21 15:32:00 [facility] [place] Respitory Rate 2019-11-21 15:32:00 [facility] Systolic (mm Hg) 2019-11-21 15:32:00 Brennen [facility] [place] Diastolic (mm Hg) 2019-11-21 15:32:00 [facility] [place] Heart Rate 2019-11-21 12:57:00 [facility] Respitory Rate 2019-11-21 12:57:00 [facility] [place] Systolic (mm Hg) 2019-11-21 12:57:00 Brennen rial [place] Diastolic (mm Hg) 2019-11-21 12:57:00 [facility] [place] Heart Rate 2019-11-21 08:37:00 [facility] Respitory Rate 2019-11-21 08:37:00 [facility] [place] Systolic (mm Hg) 2019-11-21 08:37:00 Brennen rial [place] Diastolic (mm Hg) 2019-11-21 08:37:00 [facility] [place] Temperature Oral (F) 2019-11-18 12:00:00 98.3 F [facility] Weight 2019-11-18 11:45:00 [facility] [place] BMI Calculated 2019-11-18 11:45:00 Mem[facility] Height 2019-11-14 19:59:00 162.56 cm [facility] [place] Systolic (mm Hg) 2019-11-14 17:59:00 Brennen [facility] [place] Diastolic (mm Hg) 2019-11-14 17:59:00 [facility] [place] Heart Rate 2019-11-14 17:59:00 [facility] [place] Height 2019-11-14 17:59:00 162.56 cm [facility] Solomon Weight 2019-11-14 17:59:00 [facility] BMI Calculated 2019-11-14 17:59:00 Liliya Duarte Procedures Procedure Date / Time Performed Performing Clinician Reed pham Appendectomy [facility] Cataract extraction [facility] Gallbladder [facility] Knee [facility] replacement<sup>1</sup> Lumbar laminectomy and [facility] excision of intradural spinal lesion Rotator cuff repair [facility] Plan of Care Planned Activity Planned Date Details Comments Source Future Scheduled 2020-04-07 INFLUENZA VACCINE [place] [facility] 00:00:00 [code = INFLUENZA VACCINE] Future Scheduled 2013 BREAST CANCER [facility] Test 00:00:00 SCREENING [code = BREAST CANCER SCREENING] Future Scheduled 2013 COLONOSCOPY SCREENING [place] [facility] 00:00:00 [code = COLONOSCOPY SCREENING] Future Scheduled 2013 SHINGLES VACCINES (#1) [place] [facility] 00:00:00 [code = SHINGLES VACCINES (#1)] Future Scheduled 1984 Screening for [facility] Test 00:00:00 malignant neoplasm of cervix (procedure) [code = 518481340] Future Scheduled 1981 Hepatitis C screening [place] [facility] 00:00:00 (procedure) [code = 341931355] Future Scheduled 1979 COVID-19 VACCINE (1 of [place] [facility] 00:00:00 2) [code = COVID-19 VACCINE (1 of 2)] Future Scheduled 1973 DIABETES: RETINAL EYE [place] [facility] 00:00:00 EXAM [code = DIABETES: RETINAL EYE EXAM] Future Scheduled 1973 DIABETIC FOOT EXAM [place] [facility] 00:00:00 [code = DIABETIC FOOT EXAM] Future Scheduled 1973 URINE MICROALBUMIN [place] [facility] 00:00:00 [code = URINE MICROALBUMIN] Encounters Start End Encounter Admission Attending Care Care Encounter Source Date/Time Date/Time Type Type Clinicians Facility Department ID 2019-11-18 Inpatient [facility] [id number] [facility] 06:22:00 2020-10-05 2020-10-05 Telephone INDRA Arredondo [id number] 00:00:00 00:00:00 [facility] [id number] Surgical 4.2.7.2.686 Specialti [id number] es 198 [place] 2020-09-27 2020-09-27 Hospital [facility] [id number] 08:21:38 23:59:00 Encounter Darrius Pagan [facility] [id number] Surgical 4.2.7.2.686 Specialti [id number] es 809 [place] 2020-09-27 2020-09-27 Office [facility] [id number] 07:50:24 08:32:23 Visit Darrius Pagan [facility] [id number] Surgical 4.2.7.2.686 Specialti [id number] es 198 [place] 2020-07-23 2020-07-23 Outpatient Maniar, [facility] [id number] 14:00:00 14:00:00 Gil[facility] H 05 2019-12-29 2019-12-29 [facility] [id number] [facility] 09:49:00 09:49:00 [facility] 2019-12-27 2019-12-27 [facility] [id number] 09:02:00 09:02:00 [facility] 2019-12-23 2019-12-24 [id number] 15:41:52 23:59:59 2019-12-14 2019-12-14 [facility] [id number] 14:36:00 14:36:00 [facility] 2019-11-18 2019-11-21 Outpatient Chika, [facility] [id number] 06:22:00 13:46:00 Eric I 00 2019-11-14 2019-11-14 Outpatient Maniar, [facility] [id number] 13:00:00 23:59:59 Gil[facility] H 03 2019-11-14 2019-11-14 Outpatient Maniar, [facility] [id number] 11:00:00 23:59:59 [facility] H 04 2019-11-08 2019-11-08 [facility] [id number] 09:58:00 09:58:00 t [facility] Medicine Outpati ent Clinics 2019-11-08 2019-11-08 [facility] [id number] 09:56:00 09:56:00 [facility] Medicine Outpat[facility] ent Clinics 2019-10-24 2019-10-24 [facility] [id number] 21:19:00 21:19:00 [facility] Medicine Outpati ent Clinics 2019-10-24 2019-10-24 [facility] [id number] 21:06:00 21:06:00 [facility] Medicine Outpati ent Clinics 2019-10-24 2019-10-24 [facility] [id number] 09:30:00 09:30:00 [facility] Medicine Outpati ent Clinics 2019-09-13 2019-09-13 [facility] [id number] [facility] 13:20:00 13:20:00 [facility] Medicine Outpati ent Clinics 2019-08-26 2019-08-26 [facility] [id number] 08:45:00 08:45:00 [facility] Medicine Outpati ent Clinics 2019-08-22 2019-08-22 [facility] [id number] 01:08:00 01:08:00 [facility] Medicine Outpati ent Clinics 2019-08-17 2019-08-17 [facility] [id number] 09:51:00 09:51:00 [facility] Medicine Outpati ent Clinics 2019-08-16 2019-08-16 [facility] [id number] 13:20:00 13:20:00 t [facility] Medicine Medicine Outpati ent Clinics 2019-07-21 2019-07-21 [facility] [id number] 14:47:00 14:47:00 t [facility] Medicine Outpati ent Clinics 2019-07-15 2019-07-15 [facility] [id number] 10:09:00 10:09:00 t [facility] Medicine Medicine Outpati ent Clinics 2019-07-15 2019-07-15 [facility] [id number] 08:40:00 08:40:00 t [facility] Medicine Outpati ent Clinics 2019-07-11 2019-07-11 [facility] [id number] 13:46:00 13:46:00 t [facility] Medicine Outpati ent Clinics 2019-06-28 2019-06-28 [facility] [id number] 02:54:00 02:54:00 t [facility] Medicine Outpati ent Clinics 2019-06-24 2019-06-24 [facility] [id number] 09:00:00 09:00:00 t [facility] Medicine Outpati ent Clinics 2019-06-23 2019-06-23 [facility] [id number] 15:00:00 15:00:00 t [facility] Medicine Outpati ent Clinics 2019-05-30 2019-05-30 [facility] [id number] 15:13:00 15:13:00 t [facility] Medicine Outpati ent Clinics 2019-05-05 2019-05-05 [facility] [id number] 15:33:00 15:33:00 t [facility] Medicine l Medicine Outpati ent Clinics 2019-04-28 2019-04-28 [facility] [id number] 09:02:00 09:02:00 t [facility] Medicine Outpati ent Clinics 2019-04-26 2019-04-26 [facility] [id number] 13:43:00 13:43:00 t [facility] Medicine Outpati ent Clinics 2019-04-25 2019-04-25 [facility] [id number] 22:56:00 22:56:00 t [facility] Medicine Outpati ent Clinics 2019-04-24 2019-04-24 [facility] [id number] 11:41:00 11:41:00 t [facility] Medicine Outpati ent Clinics 2019-04-15 2019-04-15 [facility] [id number] 09:07:00 09:07:00 t [facility] Medicine Outpati ent Clinics 2019-04-15 2019-04-15 [facility] [id number] 08:00:00 08:00:00 t [facility] Medicine Outpati ent Clinics 2019-03-24 2019-03-24 Outpatient zzzAmy zzzLuisana [id number] [facility] 09:27:00 09:27:[address] [facility] l Outpati ent Clinics 2019-03-16 2019-03-16 [facility] [id number] 09:16:00 09:16:00 t [facility] Medicine Outpati ent Clinics 2019-02-22 2019-02-22 [facility] [id number] 09:03:00 09:03:00 t [facility] Medicine Outpati ent Clinics 2019-02-18 2019-02-18 [facility] [id number] 18:38:00 18:38:00 [facility] 2019-02-18 2019-02-18 [facility] [id number] 15:06:00 15:06:00 [facility] 2019-02-16 2019-02-16 [facility] [id number] 16:06:00 16:06:00 [facility] ent [facility] 2019-02-15 2019-02-15 [facility] [id number] 15:20:00 15:20:00 [facility] ent [facility] 2018-04-28 2018-04-29 Outpatient MHMISCHER MHMISCHER [id number] 09:28:00 23:59:59 01 2018-04-07 2018-04-08 Outpatient MHMISCHER MHMISCHER [id number] 14:39:00 23:59:59 00 Results Test Description Test Time Test Comments Results Result Comments Source CHEM PANEL 2019-11-21 215 [facility] Keisha nn 09:56:00 CHEM PANEL 2019-11-21 15 [facility] Keisha nn 09:56:00 CHEM PANEL 2019-11-21 0.50 [facility] Keisha nn 09:56:00 CHEM PANEL 2019-11-21 137 [facility] Keisha nn 09:56:00 CHEM PANEL 2019-11-21 4.5 [facility] Keisha nn 09:56:00 CHEM PANEL 2019-11-21 102 [facility] Keisha nn 09:56:00 CHEM PANEL 2019-11-21 30 [facility] Keisha nn 09:56:00 CHEM PANEL 2019-11-21 9.3 [facility] Keisha nn 09:56:00 CHEM PANEL 2019-11-21 9.5 [facility] Keisha nn 09:56:00 CHEM PANEL 2019-11-21 125 [facility] Keisha nn 09:56:00 HEMATOLOGY 2019-11-21 71.7 [facility] Keisha nn 09:56:00 HEMATOLOGY 2019-11-21 17.6 [facility] Keisha nn 09:56:00 HEMATOLOGY 2019-11-21 8.4 [facility] Keisha nn 09:56:00 HEMATOLOGY 2019-11-21 1.7 [facility] Keisha nn 09:56:00 HEMATOLOGY 2019-11-21 0.6 [facility] Keisha nn 09:56:00 HEMATOLOGY 2019-11-21 8.2 [facility] Keisha nn 09:56:00 HEMATOLOGY 2019-11-21 2.0 [facility] Keisha nn 09:56:00 HEMATOLOGY 2019-11-21 1.0 [facility] Keisha nn 09:56:00 HEMATOLOGY 2019-11-21 0.2 [facility] Keisha nn 09:56:00 HEMATOLOGY 2019-11-21 0.1 [facility] Keisha nn 09:56:00 HEMATOLOGY 2019-11-21 11.5 [facility] Keisha nn 09:56:00 HEMATOLOGY 2019-11-21 4.12 [facility] Keisha nn 09:56:00 HEMATOLOGY 2019-11-21 13.0 [facility] Keisha nn 09:56:00 HEMATOLOGY 2019-11-21 38.1 [facility] Keisha nn 09:56:00 HEMATOLOGY 2019-11-21 92.5 [facility] Keisha nn 09:56:00 HEMATOLOGY 2019-11-21 09:56:00 Test Item Value Reference Range Interpretation Comme nts MCH (test code = MCH) 31.6 pg 27.0-31.0 [facility] MtgfxzoVZUVSOXQEY0156-68-58 09:56:0034.2[facility] HermannHEMATOLOGY 2019-11-21 09:56:0013.3[facility] YdrkdrlHDJJBFMXLJ5042-08-50 09:56:94197Lmralfrf FutgskpIXKDCPAEQX6098-65-42 09:56:008.0[facility] HermannCHEM YTDEO2880-13-91 07:18:31777Mqxktewn HermannCHEM DWISP6896-05-97 07:18:0018[facility] HermannCHEM CUXTU8514-05-45 07:18:000.60[facility] HermannCHEM JQBDI5168-65-47 07:18:25693 [facility]annCHEM UQCGL4475-84-87 07:18:004.2[facility] HermannCHEM PANEL 2019-11-20 07:18:60895Pxzsykai HermannCHEM AYOBZ8756-80-89 07:18:0028[facility] HermannCHEM TDACG8219-65-03 07:18:008.8[facility] HermannCHEM TXJJR5718-50-88 07:18:0011.2[facility] HermannCHEM JEPVN2737-05-53 07:18:07006Oyhskgba HermannCHEM BJPQX5647-62-74 07:18:001.8[facility] HermannCHEM FMXEY4025-75-45 07:18:003.2 [facility] XibjcnkZSFGFYUROC4968-72-55 07:18:0013.5[facility] HermannHEMATOLOGY 2019-11-20 07:18:003.98[facility] ZrbpyrxQNHVWZRJFJ1793-73-70 07:18:0012.2[facility] NpcdnciBZAAHSKVKF4206-26-18 07:18:0037.0[facility] ZrvkaeiDXGFFZHFTC2767-80-17 07:18:0093.0[facility] JasqcwwREYHGRBGMR6708-24-56 07:18:00 Test Item Value Reference Range Interpretation Comments MCH (test code = MCH) 30.7 pg 27.0-31.0 [facility] KrqwxjeLXVLZJAKOU4468-67-08 07:18:0033.0[facility] HermannHEMATOLOGY 2019-11-20 07:18:0013.2[facility] OabsflzEBDDTQQNUL5230-44-16 07:18:42224Mecujkkq VqabaegTZEYVTGUPD2956-42-74 07:18:008.1[facility] UishmrvDUPQPATUWV9916-02-96 07:18:00Normal (11/20/19 2:18 AM)[facility] OdccjniOOOUFCKVFL3846-20-92 07:18:00 Normal (11/20/19 2:18 AM)[facility] BvzjrfnUFPPYGPAAM6477-83-00 07:18:0083.0 [facility] OoaixyqJGTAMNLUAL4802-67-47 07:18:0011.2[facility] HermannHEMATOLOGY 2019-11-20 07:18:004.4[facility] VcfjkinWOXCRLKFFZ5168-79-75 07:18:001.1[facility] GswiqjoHVWBQKDGUJ5226-90-09 07:18:000.3[facility] XsnkjelUKMEZTPITZ1362-76-07 07:18:0011.2[facility] JiguiymLDIWXHKNTW4307-71-74 07:18:001.5[facility] [place] ESPHFSFDOW6395-21-83 07:18:000.6[facility] HagzcpcDOMCWRYAVV8395-16-03 07:18:000.1 [facility] NlltffmVSIVHHXLJS8915-57-64 07:18:000.0[facility] HermannPARATHYROID MLWRQMT2092-41-39 07:18:001.07[facility] HermannPARATHYROID LHIDGGX2281-43-71 07:18:001.09[facility] HermannCHEM OXJIS6245-00-85 07:06:004.0[facility] HermannCHEM YLYTT8572-77-58 07:06:001.7[facility] HermannCHEM PSLEN5392-79-69 07:06:87806 [facility]annCHEM BBYOG0778-98-03 07:06:0013[facility] HermannCHEM PANEL 2019-11-19 07:06:000.50[facility] HermannCHEM UXRNZ4523-48-59 07:06:80197Jsrurtzw HermannCHEM LILFJ0087-84-31 07:06:003.8[facility] HermannCHEM JZTGV3784-87-74 07:06:06840Kucggqod HermannCHEM YWBEX1373-29-30 07:06:0029[facility]annCHEM XKRVI0686-74-99 07:06:0011.8[facility]annCHEM QLMWV0945-88-54 07:06:008.5 [facility]annCHE[facility] HUIVK3894-26-95 07:06:00 Test Item Value Reference Range Interpretation Comments B/C Ratio (test code = B/C Ratio) 26 1 6-25 [facility]annCHE[facility] TJMFT4269-29-70 07:06:006.9[facility]annCHEM PANEL 2019-11-19 07:06:003.1[facility]annCHEM ZNUTJ9568-65-80 07:06:003.8[facility]annCHEM AYTWC4469-65-01 07:06:00 Test Item Value Reference Range Interpretation Comments A/G Ratio (test code = A/G Ratio) 0.8 1 0.7-1.6 [facility]annCHEM ASGRM8700-87-05 07:06:47628Hnvmnfzo HermannCHEM PANEL 2019-11-19 07:06:37704Xahfjnxq HermannCHEM KAJVX8673-16-63 07:06:65924Sydywtls HermannCHEM LJNAD7679-66-29 07:06:000.4[facility] HermannCHEM QVPYJ4591-72-47 07:06:05110Yqyoymnv IbtcqwmLKTGKMMNXF6076-05-30 07:06:009.8[facility] [place] ZLLGXHLHLD0418-95-51 07:06:003.94[facility] FigjdaxNQIWRZQUKW0536-01-02 07:06:00 12.4[facility] GbylglfNNAZNOBRRX8339-21-17 07:06:0036.6[facility] HermannHEMATOLOGY 2019-11-19 07:06:0092.9[facility] JmgvukiFMFDSQUSML4269-14-34 07:06:00 Test Item Value Reference Range Interpretation Comments MCH (test code = MCH) 31.4 pg 27.0-31.0 [facility] NsddyuvKDPUWXWNWT1074-69-83 07:06:0033.8[facility] HermannHEMATOLOGY 2019-11-19 07:06:0013.1[facility] GyjxlbjELRWZGGTYF5237-48-65 07:06:68979Qnnysnyn SdngdqlSIIWIPPAFA9646-69-37 07:06:008.0[facility] YzbfdhiHLAEYJCFFM5085-40-05 07:06:00 Test Item Value Reference Range Interpretation Comments PTT (test code = PTT) 31.4 s 22.9-35.8 [facility] PtvkiwsMVJWNGALCT0781-51-18 07:06:00 Test Item Value Reference Range Interpretation Comments PT (test code = PT) 13.7 s 12.0-14.7 [facility] EynrmqbLJGDXXKPXW2984-94-56 07:06:00 Test Item Value Reference Range Interpretation Comments INR (test code = INR) 1.05 1 0.85-1.17 [facility] EpwnomtCISZMAZKOY2764-05-39 07:06:0068.3[facility] HermannHEMATOLOGY 2019-11-19 07:06:0021.7[facility] JeqcuoaAKSHNSNKFG4695-14-40 07:06:007.7[facility] GzreeyyHHLATPZOCL9805-54-42 07:06:001.7[facility] QcnteupWXVVPLFDAU4403-04-21 07:06:000.6[facility] PqslfdcOYIPFNWGLZ3243-10-19 07:06:006.7[facility] YGUAIGLNZD0542-39-83 07:06:002.1[facility] DbneslrYODMPIHVMU5158-68-12 07:06:000.8 [facility] CnxapjqWATRLMKHAR1957-25-70 07:06:000.2[facility] HermannHEMATOLOGY 2019-11-19 07:06:000.1[facility] HermannCHEM PGSBT3077-02-37 16:12:001.9[facility] HermannCHEM KAVGW0129-20-99 16:12:004.8[facility] YqdlnkjNOEADJJMTO1648-42-92 16:12:00 Test Item Value Reference Range Interpretation Comments PT (test code = PT) 13.9 s 12.0-14.7 [facility] WqrehepDYGKUGWALX2911-78-16 16:12:00 Test Item Value Reference Range Interpretation Comments INR (test code = INR) 1.07 1 0.85-1.17 [facility] YlfaznzCVLBMSUWEP6888-84-75 16:12:00 Test Item Value Reference Range Interpretation Comments PTT (test code = PTT) 28.3 s 22.9-35.8 [facility] AvdodyqBRKEJFPRUH3702-21-75 16:12:59980Cinsgjjr KdgzeyuTKLYHM3158-35-11 16:12:0066[facility] HtmvbdrFTLXPF5656-28-02 16:12:48299Aumlreuj HermannLIPIDS 2019-11-18 16:12:0054Mem[facility] YaacppwEUBZSZ8435-69-54 16:12:00 Test Item Value Reference Range Interpretation Comments CHD Risk (test code = CHD Risk) 2.48 1 3.90-5.80 [facility] UsttbciBQYBEJ9096-16-20 16:12:0067[facility] FzdrimoTEZQLJ1322-99-77 16:12:00 Test Item Value Reference Range Interpretation Comments VLDL (test code = VLDL) 13 1 [facility] HermannPARATHYROID LXFUTAO9968-03-34 16:12:001.18[facility] [place] PARATHYROID TQHLFHD9539-01-12 16:12:001.22[facility] XcmazapZFOSMKOUBQPN4080-98-94 12:16:99727Kqwuproz InmpfdrBVCUXLOIUWGB2417-51-48 12:16:004.9[facility] DHKSDJTHAWYZ6465-27-90 12:16:20238Tjggzoag WazyeqsPGHPLUXIIVRP5823-30-84 12:16:0031[facility] AlhjqxmCABHENBZJWSX1604-17-15 12:16:0024[facility] FHAODPVQKQPI3778-27-22 12:16:000.5[facility] BfksspuFTPBKSMONXYP4779-32-39 12:16:0079[facility] SntacplROYZKEKMTPAG7951-04-33 12:16:001.22[facility] [place] OGSZMSCICUPS6800-64-50 12:16:0013.9[facility] GsknjpiJMCTOOSUODVS1142-45-48 12:16:0041.0[facility] IrchyoyVTDJESOYJRQF8454-18-82 12:16:0012.0[facility] KJCDIVTPQRNY4895-61-27 12:16:00See Note *NA*(11/18/19 7:16 AM)[facility] BLOOD BANK VBNXLSJ2122-71-39 11:55:00Negative (11/18/19 6:55 AM)[facility] BACTERIAL - [id number] 20:23:00Negative (11/14/19 3:23 PM)[facility] BLOOD BANK [id number] 20:12:00Negative (11/14/19 3:12 PM)[facility] CHEM [id number] 20:12:007.5[facility] [id number] 20:12:003.5 [facility] [id number] 20:12:0019[facility] PANEL 2019-11-14 20:12:0015[facility] [id number] 20:12:0074[facility] [id number] 20:12:000.2[facility] [id number] 20:12:00 Test Item Value Reference Range Interpretation Comments B/C Ratio (test code = B/C Ratio) 17 1 6-25 [facility] [id number] 20:12:004.0[facility] PANEL 2019-11-14 20:12:00 Test Item Value Reference Range Interpretation Comments A/G Ratio (test code = A/G Ratio) 0.9 1 0.7-1.6 [id number] 20:12:00 Test Item Value Reference Range Interpretation Comments PT (test code = PT) 12.6 s 12.0-14.7 [facility] WorthQyetqsbSNXTTOCXCJ7862-52-44 20:12:00 Test Item Value Reference Range Interpretation Comments INR (test code = INR) 0.94 1 0.85-1.17 [facility]
[2020-10-11] MEDS ORDERED: HYDROCODONE/APAP 10/325 TAB ONE (09:42)
[2020-10-11] MEDS ORDERED: KETOROLAC 30 MG/ML INJ ONE (09:42)
--- NOTE | 2020-10-11 10:21 | EDPHYS ---
Physician Documentation [facility] Name: Charlotte Ruvalcaba Age: 55 yrs Sex: Female : 1965 Arrival Date: 10/11/2020 Time: 08:34 Bed 13 Private MD: LUCINDA Physician Efren Puente HPI: 10/11 09:50 This 55 yrs old Black Female presents to ER via Ambulatory with complaints of Back Pain.jr8 09:50 The patient presents with pain that is acute. The symptoms are located in the low back. jr8 Onset: The symptoms/episode began/occurred acutely, yesterday. The pain radiates to the right leg. Associated signs and symptoms: The patient has no apparent associated signs or symptoms. The problem was sustained from unknown cause. Modifying factors: The patient symptoms are alleviated by nothing, the patient symptoms are aggravated by any movement. Severity of symptoms: At their worst the symptoms were moderate, in the emergency department the symptoms are unchanged. It is unknown whether or not the patient has had similar symptoms in the past. The patient has not recently seen a physician. Patient with history of low back pain with previous laminectomy in past. Stated that she woke up yesterday with low back pain that is not going away. Worse with movement and bending. Denies fevers, abdominal pain, urinary incontinence, or bowel incontinence . Historical: - Allergies: 08:37 NKDA; sv - PMHx: 08:37 chronic pain, sees pain doctor; Diabetes - IDDM; Asthma; breast cancer; COPD; Gout; sv Hypertension; Hypothyroidism; ROS: 09:50 Abdomen/GI: Negative for abdominal pain, nausea, vomiting, diarrhea, and constipation, jr8 : Negative for injury, bleeding, discharge, and swelling, Neuro: Negative for headache, weakness, numbness, tingling, and seizure. 09:50 Constitutional: Negative for body aches, chills, fever. 09:50 Back: Positive for decreased range of motion, pain at rest, pain with movement, radiated pain. 09:50 All other systems are negative. Exam: 09:50 Cardiovascular: Regular rate and rhythm with a normal S1 and S2. No gallops, murmurs, jr8 or rubs. Normal PMI, no JVD. No pulse deficits. Respiratory: Lungs have equal breath sounds bilaterally, clear to auscultation and percussion. No rales, rhonchi or wheezes noted. No increased work of breathing, no retractions or nasal flaring. Abdomen/GI: Soft, non-tender, with normal bowel sounds. No distension or tympany. No guarding or rebound. No evidence of tenderness throughout. Skin: Warm, dry with normal turgor. Normal color with no rashes, no lesions, and no evidence of cellulitis. MS/ Extremity: Pulses equal, no cyanosis. Neurovascular intact. Full, normal range of motion. Neuro: Awake and alert, GCS 15, oriented to person, place, time, and situation. Cranial nerves II-XII grossly intact. Motor strength 5/5 in all extremities. Sensory grossly intact. Cerebellar exam normal. Normal gait. 09:50 Constitutional: The patient appears alert, awake, in obvious pain, uncomfortable. 09:50 Back: pain, that is moderate, of the right mid back and right low back, ROM is painful, with all movement, normal spinal alignment noted, CVA tenderness, is absent, vertebral tenderness, is not appreciated. Vital Signs: 08:37 BP 131 / 56; Pulse 76; Resp 18; Temp 98.7; Pulse Ox 100% ; Weight 88 kg; Height 5 ft. 4 sv in. (162.56 cm); Pain 9/10; 10:15 BP 112 / 87; Pulse 75; Resp 17; Pulse Ox 96% ; tw2 08:37 Body Mass Index 33.30 (88.00 kg, 162.56 cm) sv MDM: 09:07 Patient medically screened. [facility] 09:50 Data reviewed: vital signs, nurses notes, and as a result, I will discharge patient. [facility] Data interpreted: Pulse oximetry: on room air is 100 %. Interpretation: normal. Counseling: I had a detailed discussion with the patient and/or guardian regarding: the historical points, exam findings, and any diagnostic results supporting the discharge/admit diagnosis, the need for outpatient follow up, a family practitioner, a orthopedic surgeon, to return to the emergency department if symptoms worsen or persist or if there are any questions or concerns that arise at home. Administered Medications: 09:32 Drug: TORadol - Ketorolac 15 mg Route: IM; Site: right deltoid; tw2 09:32 Drug: [place] 10 mg-325 mg 1 tabs {Note: RASS 0.} Route: PO; tw2 Disposition: 10/12 05:56 Co-signature as Attending Physician, Efren Puente MD I agree with the assessment and edilson plan of care. Disposition: 10/11/20 10:20 Discharged to Home. Impression: Low back pain, Muscle spasm of back. - Condition is Stable. - Discharge Instructions: Back Pain, Adult, Heat Therapy. - Prescriptions for meloxicam 15 mg Oral tablet - take 1 tablet by ORAL route once daily As needed; 20 tablet. Robaxin 500 mg Oral Tablet - take 2 tablet by ORAL route every 6 hours As needed; 40 tablet. Medrol (Meng) 4 mg Oral Tablets, Dose Pack - take 1 tablet by ORAL route as directed - follow package instructions; 1 packet. - Medication Reconciliation Form, Thank You Letter, Antibiotic Education, Prescription Opioid Use form. - Follow up: Private Physician; When: 2 - 3 days; Reason: Recheck today's complaints, Continuance of care, Re-evaluation by your physician. - Problem is new. - Symptoms have improved. - Notes: Push fluids Check your Blood sugar at least twice a day Signatures: Corina Olmos, RN Efren Busby MD MD cha Roszak, Josh, PA PA jr8 Hope Evans RN RN tw2 Corrections: (The following items were deleted from the chart) 10/11 10:27 10:20 10/11/2020 10:20 Discharged to Home. Impression: Low back pain; Muscle spasm of sv back. Condition is Stable. Forms are Medication Reconciliation Form, Thank You Letter, Antibiotic Education, Prescription Opioid Use. Follow up: Private Physician; When: 2 - 3 days; Reason: Recheck today's complaints, Continuance of care, Re-evaluation by your physician. Problem is new. Symptoms have improved. jr8
--- NOTE | 2020-10-11 10:21 | ER ---
Nurse's Notes [facility] Name: Charlotte Ruvalcaba Age: 55 yrs Sex: Female : 1965 Arrival Date: 10/11/2020 Time: 08:34 Bed 13 Private MD: Diagnosis: Low back pain;Muscle spasm of back Presentation: 10/11 08:35 Chief complaint: Patient states: low back pain and right hip pain x 1.5 weeks. No meds sv OTC taken. Coronavirus screen: Client denies travel out of the [place] in the last 14 days. At this time, the client does not indicate any symptoms associated with coronavirus-19. Ebola Screen: No symptoms or risks identified at this time. Risk Assessment: Do you want to hurt yourself or someone else? Patient reports no desire to harm self or others. Onset of symptoms was September 2019. 08:35 Method Of Arrival: Ambulatory sv 08:35 Acuity: RASHAD 4 sv 08:37 Initial Sepsis Screen: Does the patient meet any 2 criteria? No. Patient's initial sv sepsis screen is negative. Does the patient have a suspected source of infection? No. Patient's initial sepsis screen is negative. Triage Assessment: 08:39 General: Appears in no apparent distress. uncomfortable, Behavior is calm, cooperative, sv appropriate for age. Pain: Complains of pain in low back area and right hip. Neuro: Level of Consciousness is awake, alert, obeys commands, Oriented to person, place, time, situation, Gait is steady. Respiratory: Respiratory effort is even, unlabored. Historical: - Allergies: 08:37 NKDA; sv - PMHx: 08:37 chronic pain, sees pain doctor; Diabetes - IDDM; Asthma; breast cancer; COPD; Gout; sv Hypertension; Hypothyroidism; Screenin:19 Abuse screen: Denies threats or abuse. Nutritional screening: No deficits noted. tw2 Tuberculosis screening: No symptoms or risk factors identified. Fall Risk None identified. Assessment: 09:00 General: Appears in no apparent distress. uncomfortable, obese, well groomed, Behavior tw2 is calm, cooperative, appropriate for age. Pain: Complains of pain in right low back and right mid back and right leg. Neuro: Level of Consciousness is awake, alert, obeys commands. Cardiovascular: Patient's skin is warm and dry. Respiratory: Airway is patent. GI: No signs and/or symptoms were reported involving the gastrointestinal system. : No signs and/or symptoms were reported regarding the genitourinary system. EENT: No signs and/or symptoms were reported regarding the EENT system. Derm: No signs and/or symptoms reported regarding the dermatologic system. Musculoskeletal: Reports pain in right mid back and right low back radiation of pain down right leg as well. 10:26 Reassessment: Patient appears in no apparent distress at this time. Patient and/or tw2 family updated on plan of care and expected duration. Pain level reassessed. Patient is alert, oriented x 3, equal unlabored respirations, skin warm/dry/pink. Patient states feeling better. Vital Signs: 08:37 BP 131 / 56; Pulse 76; Resp 18; Temp 98.7; Pulse Ox 100% ; Weight 88 kg; Height 5 ft. 4 sv in. (162.56 cm); Pain 9/10; 10:15 BP 112 / 87; Pulse 75; Resp 17; Pulse Ox 96% ; tw2 08:37 Body Mass Index 33.30 (88.00 kg, 162.56 cm) sv ED Course: 08:34 Patient arrived in ED. as 08:35 Arm band placed on. sv 08:36 Triage completed. sv 08:58 Bed in low position. Call light in reach. tw2 09:00 Hope Evans, ALOK is Primary Nurse. tw2 09:07 Anuel Dobson PA is PHCP. jr8 09:07 Efren Puente MD is Attending Physician. jr8 10:26 No provider procedures requiring assistance completed. Patient did not have IV access sv during this emergency room visit. Administered Medications: 09:32 Drug: TORadol - Ketorolac 15 mg Route: IM; Site: right deltoid; tw2 09:32 Drug: [place] 10 mg-325 mg 1 tabs {Note: RASS 0.} Route: PO; tw2 Outcome: 10:20 Discharge ordered by . jr8 10:26 Discharged to home ambulatory. sv 10:26 Condition: stable 10:26 Discharge instructions given to patient, Instructed on discharge instructions, follow up and referral plans. no drinking with medication, no driving heavy equipment, medication usage, Demonstrated understanding of instructions, follow-up care, medications, Prescriptions given X 3. 10:27 Patient left the ED. sv Signatures: Corina Olmos, RN RN sv Ioana Washington Josh, PA PA jr8 Hope Evans RN RN tw2 Corrections: (The following items were deleted from the chart) 08:39 08:37 Pulse 76bpm; Resp 18bpm; Pulse Ox 100%; Temp 98.7F; 88 kg; Height 5 ft. 4 in.; sv BMI: 33.3; sv
[2020-10-11 10:31] VITALS: BP 131/56; TEMP 98.7; O2SAT 100
== END 2020-10-11 10:27 | disposition home or self-care (01) ==
LOC: ER 08:30
DX: M62.830 Muscle spasm of back (principal); I10 Essential (primary) hypertension
CPT/HCPCS: 96372; 99283

== ENCOUNTER 2020-10-31 11:17 | Emergency (ER) | payer OTHER, MEDICAID ==
--- OUTSIDE RECORDS SUMMARY | 2020-10-31 11:24 | XMS REPORT | Continuity of Care Document ---
:1965 Author Organization [facility] t Address [address] [place] [address] Care Team Providers Name Role Phone Richard HAJI Primary Care Physician Arnulfo BRAGA, S Attending Clinician Zuleika BRINK, L Attending Clinician Natali H Attending Clinician Chika, I Attending Clinician Chika, I Admitting Clinician Problems Condition Condition Condition Status Onset Resolution Last Treating Co mments Source Name Details Category Date Date Treatment Clinician Date N/A Diagnosis Active 2019-11-16 Mem oria 3 09:55:00 l N/A 00:00: Solomon 00 Active 11/08/2019 [facility] I65.22 Diagnosis Active 2019-11-24 Mem oria 3-03 21:49:00 l I65.22 00:00: [place] 00 Active 11/08/2019 [facility] Degenerati Degenerati Disease Active 2017- H connie on of on of 09-15 [facility] interverte interverte 00:00: st bral disc bral disc 00 of of lumbosacra lumbosacra l region l region Non-intrac Non-intrac Problem Active [facility] table table [facility] - vomiting vomiting Memori a with with l nausea, nausea, Outpati unspecifie unspecifie en t d vomiting d vomiting Cl inics type type Chest Chest Problem Active [facility] tightness tightness Luke [facility] - Memoria l [facility] Exposure Exposure Problem Active [facility] to mold to mold [facility] Wheezing Wheezing Problem [facility] Shortness Shortness Problem Active [facility] of breath of breath Luke s - Memoria l [facility] Itching Itching Problem Active [facility] Muscle Muscle Problem Active [facility] cramping cramping [facility] Right leg Right leg Problem Active [facility] pain pain [facility] Acute Acute Problem Active [facility] right-side right-side Verenice kes - d thoracic d thoracic Me moria back pain back pain l [facility] Low back Low back Problem Active [facility] pain pain [facility] Other Other Problem Active [facility] chronic chronic [facility] - pain pain Memoria l [facility] Lumbago Lumbago Problem Active [facility] with with [facility] - sciatica, sciatica, Brennen oscar right side right side l [facility] Status Status Problem Active [facility] post fall post fall Luke s - Memoria l [facility] Dizziness Dizziness Problem Active [facility] Imbalance Imbalance Problem Active [facility] Difficulty Difficulty Problem Active [facility] sleeping sleeping [facility] Acute Acute Problem Active [facility] stress stress [facility] - reaction reaction Memori a l [facility] 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[facility] - both both Memoria carotid carotid l arteries arteries Outazt ent Clinics Stenosis Stenosis Problem Active [facility] of left of left [facility] - carotid carotid Memoria artery artery l [facility] Status Status Problem Active [facility] post CVA post CVA [facility] Stenosis Stenosis Problem Active [facility] of right of right [facility] - carotid carotid Memoria artery artery l [facility] Occlusion Problem 2019-11-23 Me moria and 21:46:33 l stenosis Solomon of left Occlusion carotid and artery stenosis of left carotid artery 11/23/2019 [facility] Carotid Problem Active 2020-07-25 Brennen oscar artery 22:46:12 l stenosis Carotid Keisha nn (disorder) artery stenosis (disorder) Active Problem 07/25/2020 [facility] her Neuro,[facility] Carpal Problem Active 2020-07-25 Memor ia tunnel 22:46:12 l syndrome Carpal Andrei n (disorder) tunnel syndrome (disorder) Active Problem 07/25/2020 [facility] her Neuro,[facility] Diabetes Problem Active 2020-07-25 Mem oria mellitus 22:46:12 l (disorder) Diabetes He rmann mellitus (disorder) Active Problem 07/25/2020 [facility] her Neuro,[facility] Diabetes Problem Active 2020-07-25 Mem oria mellitus 22:46:12 l type 2 Diabetes Andrei n (disorder) mellitus type 2 (disorder) Active Problem 07/25/2020 Medical [facility] her Neuro,[facility] Disorder Problem Active 2020-07-25 Mem oria of carotid 22:46:12 l artery Disorder Andrei n (disorder) of carotid artery (disorder) Active Problem 07/25/2020 [facility] her Neuro,[facility] Hypertensi Problem Active 2020-07-25 M emoria ve 22:46:12 l disorder, Solomon systemic Hypertensi arterial ve (disorder) disorder, systemic arterial (disorder) Active Problem 07/25/2020 [facility] her Neuro,[facility] Hyperlipid Problem Active 2020-07-25 M emoria emia 22:46:12 l (disorder) Andrei n Hyperlipid emia (disorder) Active Problem 07/25/2020 Medical [facility] her Neuro,[facility] Hypothyroi Problem Active 2020-07-25 M emoria dism 22:46:12 l (disorder) Andrei n Hypothyroi dism (disorder) Active Problem 07/25/2020 [facility] her Neuro,[facility] Simple Problem Active 2020-07-25 Memor ia obesity 22:46:12 l (disorder) Simple Herm mary obesity (disorder) Active Problem 07/25/2020 Medical Group,[facility] her Neuro,[facility] OCCLUSION Diagnosis Active 2019-11-24 Memoria AND 21:49:00 l STENOSIS Solomon OF LEFT OCCLUSION CAROTID A AND STENOSIS OF LEFT CAROTID A Active [facility] Uncontroll Uncontroll Problem Active [facility] ed type 2 ed type 2 Luke s - diabetes diabetes Memori a mellitus mellitus l with with Outpati hyperglyce hyperglyce en t oswaldo [facility]swaldo Clinics Anxiety Anxiety Problem Active [facility] Asthma, Asthma, Problem Active [facility] unspecifie unspecifie Verenice kes - d asthma d asthma Memori a severity, severity, l unspecifie unspecifie Ou tpati d whether d whether ent complicate complicate Cl inics d, d, unspecifie unspecifie d whether d whether persistent persistent Diabetes Diabetes Problem Active [facility] Swelling Swelling Problem Active [facility] High blood High blood Problem Active [facility] pressure pressure [facility] Sinus Sinus Problem Active [facility] problem problem [facility] High High Problem Active [facility] cholestero cholestero Verenice kes - l l [facility] Depression Depression Problem Active [facility] with with [facility] - anxiety anxiety [facility] Acquired Acquired Problem Active [facility] t hypothyroi hypothyroi Verenice kes - dism dism [facility] Chronic Chronic Problem Active [facility] pain pain [facility] - syndrome syndrome Memori a l [facility] Polyarthra Polyarthra Problem Active [facility] lgia lgia [facility] Gastroesop Gastroesop Problem Active C [...] urine odor Verenice kes - [facility] Hoarseness Hoarseness Problem Active [facility] Hyperlipid Hyperlipid Problem Active [facility] emia, emia, [facility] - unspecifie unspecifie Me moria d d l hyperlipid hyperlipid Ou tpati emia type emia type ent Clinics Sore Sore Problem Active [facility] throat throat [facility] Allergies, Adverse Reactions, Alerts Allergy Allergy Status Severity Reaction(s) Onset Inactive Treating Comm ents Source Name Type Date Date Clinician No Known No Known Active Memori a Medicati Medicati l on on Solomon Silva s s Family History Family Member Diagnosis Comments Start Date Stop Date Source Natural mother COPD [facility] thodist Natural mother Hyperlipidemia [place] Natural mother Hypertension [place] [facility] Social History Social Habit Start Date Stop Date Quantity Comments Source Sex Assigned At [facility] History of tobacco Current smoker [place] [facility] use Social History 2019-11-14 2019-11-14 [facility] ermann 21:12:20 21:12:20 Tobacco use and 2018-07-19 2018-07-19 Never used [facility] ethodi exposure 00:00:00 00:00:00 Alcohol intake 2018-07-19 2018-07-19 Current [facility] thodist 00:00:00 00:00:00 non-drinker of alcohol (finding) Cigarettes smoked 2018-07-19 2018-07-19 Jordon Garay current (pack per 00:00:00 00:00:00 day) - Reported Smoking Status Start Date Stop Date Source Former smoker 2018-07-19 00:00:00 2018-07-19 00:00:00 Jordon Garay Medications Ordered Filled Start Stop Current Ordering Indication Dosage Frequency Signature Comments Components Source Medication Medication Date Date Medication? Clinician (SIG) Name Name Aspirin 81 2019-0 Yes 81 mg = 1 Me moria MG Chewable 3-16 tab, PO, l Tablet 17:44: Daily, # 90 tab, 0 Refill(s), Pharmacy: [id number] Esomeprazol 2019-0 No 40 mg, 1 Me [...] 3-16 (Same as: l 0.05 14:00: Flonase) [place] MG/ACTUAT 00 Metered Dose Nasal [place] [Flonase] Hydrochloro No 1 tab, Brennen oscar thiazide 25 3-16 Route: PO, l MG / 14:00: Drug Form: [place] Losartan 00 TAB, Potassium Dosing 100 MG [...] Memoria 3-16 Same as l 14:00: Januvia [place] 00 Insulin No Notes: Memoria Glargine 3-16 [...] Memoria 3-16 (Same as: l 14:00: Cozaar) Solomon 00 Thyroxine No Notes: Memori a 3-16 Take 1 l 11:30: hour Solomon 00 before or 2 hours after meal; [...] Memoria 3-16 (Same as: l 02:00: Humalog) [place] Roll in palms of hands gently; Do not shake vigorously . WASTE: F/P - Black; E - Municipal Trash Bin Stable for 28 days at room temperatur e. Expires in days from ____Date montelukast No Notes: Brennen oscar 3-16 (Same l 02:00: as:Joy [place] 00 ir) Simvastatin No Notes: Brennen oscar 3-16 (Same as: l 02:00: Zocor) Insulin, No 10 unit, Memor ia Aspart, 11-20 Route: l Human 01:39: SUB-Q, Solomon 00 ONCE, Dosing Weight 79.091, kg, Priority: NOW, Start date: 11/20/19 20:39:00 CDT, Stop date: 11/20/19 20:39:00 CDT Buspirone No Notes: Memori a 3-15 (Same As: l 22:00: BuSpar) Solomon Amitiza No Notes: Memoria 3-15 Same as l 22:00: Amitiza Solomon 00 (Do Not Crush) Non Formulary Acetaminoph No Notes: Do M emoria en 325 MG / -15 not exceed l Hydrocodone 18:53: 4gm/day of [place] Bitartrate 00 acetaminop 10 MG Oral hen. Tablet (Same as: [[place] 10/325] 325/10) Albuterol No Notes: Memori a 0.833 MG/ML 3-15 (Same as: l / 18:49: Duoneb) Ipratropium 00 [place] 0.167 MG/ML Inhalant Solution Tylenol No Notes: Do Memor ia 3-15 not exceed l 18:20: 4 gm/day. Solomon (Same as: Tylenol) Labetalol No Notes: Memori a 3-15 (Same as: l 17:11: Normodyne, [place] 00 Trandate) Push over 2 minutes Give bolus over 2-3 minutes. heparin No 5,000 Memoria 3-15 unit, l 14:23: Route: [place] 00 SUB-Q, Q8H-06, Dosing Weight 79.091, kg, Priority: STAT, Start date: 11/20/19 9:23:00 CDT, Duration: 30 day, Stop date: 12/20/19 6:00:00 CDT Lexapro 2019- No 10 mg, Memoria 3-15 Route: PO, l 14:15: Drug form: Solomon TAB, Daily, Dosing Weight 79.091, kg, Priority: STAT, Start date: 11/20/19 9:15:00 CDT, Duration: 30 day, Stop date: 12/20/19 9:00:00 CDT Furosemide 2019- No Notes: Memor ia 3-15 (Same as: l 14:00: Lasix) May cause GI upset. Give with food or milk. Losartan No Notes: Memoria 3-15 (Same as: l 14:00: Cozaar) Humalog 2019-0 No Notes: Memoria 3-15 (Same as: l 08:52: Humalog) Roll in palms of hands gently; Do not shake vigorously . WASTE: F/P - Black; E - Municipal Trash Bin Stable for 28 days at room temperatur e. Expires in days from ____Date Dextrose 2019-0 No 50 mL, Memoria 50% in 3-15 Route: l Water IV 08:52: IVP, Start Her date: 11/20/19 3:52:00 CDT, Duration: 30 day, Stop date: 12/20/19 3:51:00 CDT, PRN Blood Glucose Results, 0 glucagon 2019- No 1 mg, Memoria 3-15 Route: l 08:52: INJ, Drug form: PDR/INJ, PRN, PRN Blood Glucose Results, Start date: 11/20/19 3:52:00 CDT, Duration: 30 day, Stop date: 12/20/19 3:51:00 CDT, 0 Humalog 2019-0 No Notes: Memoria 3-15 (Same as: l 08:51: Humalog) Roll in palms of hands gently; Do not shake vigorously . WASTE: F/P - Black; E - Municipal Trash Bin Stable for 28 days at room temperatur e. Expires in days from ____Date Labetalol 2019-0 No Notes: Memori a 3-15 (Same as: l 06:25: Normodyne, Trandate) Push over 2 minutes Give bolus over 2-3 minutes. Hydralazine 2019-0 No Notes: Brennen oscar 3-15 (Same as: [...] Notes: Memoria 3-14 Chlorasept l 02:54: ic [place] (Same as: Chlorasept ic, Sore Throat [place]) WASTE: F/P - Black; E - Municipal [...] Dextrose No 50 mL, Memoria 50% in 3-14 Route: l Water IV 01:53: IVP, Start [...] 40 mg Product Wasted: ___ mg Losartan No Notes: Memoria 3-13 (Same as: l 22:49: Cozaar) ceFAZolin + No Notes: Brennen oscar sterile 3-13 (Same As: l water 20 mL 21:00: Ancef, Herm mary Kefzol) MEDICATION WASTE Product Size: 1000 mg Product Wasted: ___ mg Zofran 2019- No Notes: Memoria 3-13 (Same as: l 19:19: Zofran) MEDICATION WASTE Product Size: 4 mg Product Wasted: ___ mg Albuterol No Notes: Memori a 0.833 MG/ML 3-13 (Same as: l / 17:26: Duoneb) Ipratropium 00 [place] 0.167 MG/ML Inhalant Solution Saline No Notes: Memoria Flush 0.9% 3-13 (Same as: l 17:26: BD Posiflush) Potassium No Notes: Memori a Chloride [...] mEq potassium Infuse over 4 hours potassium No Notes: Memori a phosphate-s 3-13 (Same [...] 17:26: Mag-Ox Solomon 00 400) Magnesium oxide 392rm=376t g elemental magnesium Dose=____m g magnesium oxide (___mg elemental magnesium) Calcium 2019- No Notes: Memoria Gluconate 3-13 WASTE: F/P l 17:26: - Sink; E [place] 00 - Municipal Trash Bin Calcium 2019- No Notes: Memoria Carbonate 3-13 (Same As: l 500 MG 17:26: Tums) Solomon Chewable 00 Calcium Tablet Carbonate 500 mg = 200 mg elemental calcium Dose = mg calcium carbonate ( mg elemental calcium) Acetaminoph No Notes: Do M emoria en 3- not exceed l 17:00: 4 gm/day. (Same as: Tylenol) gabapentin No Notes: Memor ia 3-13 (Same as: l 16:39: Neurontin) Oxycodone 0 No Notes: Memori a Hydrochlori -13 (Same as: l de 5 MG 16:39: Roxicodone Herm mary Oral Tablet ) Tramadol No Notes: Not Mem oria 3-13 to exceed l 16:39: 400mg/day. (Same As: Ultram) niCARdipine No Route: IV, Memoria (ANES) 3- Drug form: l 16:24: INJ, ONCE, Stop date: 11/18/19 11:24:00 CDT Diltiazem 0 No 10 mg, Memori a 3-13 Route: IV, l 16:24: ONCE, Dosing Weight 79.091, kg, Start date: 11/18/19 11:24:00 CDT, Stop date: 11/18/19 11:24:00 CDT Hydromorpho 2019-0 No 0.5 mg, Mem oria ne -13 Route: l 16:24: IVP, ONCE, Dosing Weight 79.091, kg, Priority: STAT, Start date: 11/18/19 11:24:00 CDT, Stop date: 11/18/19 11:24:00 CDT Nicardipine 2019-0 No Notes: Brennen oscar 3-13 Same as: l 16:20: Cardene Concentrat ion: (0.2 mg /1 ml ) ondansetron 2019-0 No Route: IV, Memoria (ANES) 3-13 Drug form: l 16:13: INJ, ONCE, Stop date: 11/18/19 11:13:00 CDT Nicardipine 2019-0 No Notes: Brennen oscar 3-13 Same as: l 16:12: Cardene Concentrat ion: (0.2 mg /1 ml ) Acetaminoph 2019-0 No Notes: Brennen oscar en 3-13 Infuse l 16:09: over 15 minutes Do not exceed 4gm/day of acetaminop hen MEDICATION WASTE Product Size: 1000 mg Product Wasted: ___ mg calcium 2019-0 No Route: IV, Brennen oscar chloride 3-13 Drug form: l (ANES) 15:52: INJ, ONCE, Stop date: 11/18/19 10:52:00 CDT protamine 0 No Route: IV, Me moria (ANES) 10 3-13 Drug form: l mg 15:17: INJ, Start date: 11/18/19 10:17:00 CDT, Stop date: 11/18/19 11:17:00 CDT heparin 2019-0 No Route: IV, Brennen oscar (ANES) 3-13 [...] 2020-0 No Route: IV, Memor ia chloride - Drug form: l (ANES) 19 13:27: INJ, [...] Rate: To l 0.9% 11:36: prime line [place] (titrate) 00 and flush 250 mL remaining blood products., Dosing Weight 81.023, kg, Route: IV, Total Volume: 250, Start Date: 11/18/19 6:36:00 CDT, Duration: 1 day, Stop date: 11/19/19 6:35:00 CDT, Replace Every: 24 hr, 0 Januvia 2020-0 Yes PO, Daily, Brennen oscar 3-09 unknown l 21:02: dose, 0 Refill(s) Sodium 2020-0 No 250 mL, Memoria Chloride 3-09 Rate: To l 0.9% 20:03: prime line Solomon (titrate) 00 and flush 250 mL remaining blood products., Dosing Weight 81.023, kg, Route: IV, Total Volume: 250, Start Date: 11/14/19 15:03:00 CDT, Duration: 1 day, Stop date: 11/15/19 15:02:00 CDT, Replace Every: 24 hr, 0 Hydrochloro 2020-0 Yes 1 tab, PO, Memoria thiazide 25 3-09 Daily, # l MG / 18:03: 30 tab, 0 [place] Losartan 00 Refill(s) Potassium 100 MG Oral Tablet Albuterol 2020-0 Yes 3 mL, Memoria 0.833 MG/ML 11-13 INHALATION l / 18:03: , Q6H, PRN [place] Ipratropium 00 Wheezing, [place] # 30 ea, 1 0.167 MG/ML Refill(s) Inhalant Solution Fluticasone 2020-0 Yes NASAL, Brennen oscar propionate 3-09 Daily, 0 l 0.05 18:03: Refill(s) [place] MG/ACTUAT 00 Metered Dose Nasal [place] [Flonase] meloxicam 2020-0 Yes 15 mg = 1 Mem oria 15 mg oral 3-09 tab, PO, l tablet 18:03: Daily, # Solomon 00 30 tab, 0 Refill(s) busPIRone 2020-0 Yes 10 mg = 1 Mem oria 10 mg oral 3-09 tab, PO, l tablet 18:03: BID, 0 [place] 00 Refill(s) Esomeprazol 2020-0 Yes 40 mg [...] microgram l Oral 18:03: = 1 cap, Solomon Capsule 00 PO, BID, 0 [Amitiza] Refill(s) magnesium 2020-0 No 400 mg = 1 Me moria oxide 400 3-09 tab, PO, l mg oral 18:03: Daily, # Andrei n tablet 00 30 tab, 1 Refill(s) pantoprazol 2019-0 Yes 40 mg = 1 M emoria e 40 mg 3-09 tab, PO, l oral 18:03: Daily, # Solomon enteric 00 30 tab, 1 coated Refill(s) tablet montelukast 2019-0 Yes 10 mg = 1 M emoria 10 mg oral 3-09 tab, PO, l tablet 18:03: Bedtime, # Keisha nn 00 30 tab, 0 Refill(s) plecanatide 2020-0 Yes 3 mg = 1 Me moria 3 MG Oral 3-09 tab, PO, l Tablet 18:03: Daily, 0 [place] [Trulance] 00 Refill(s) HYDROcodone 2017-09 Yes 1{tbl} [id number] Take 1 Ruvalcaba -acetaminop 09-20 [id number] tablet by Methodi hen (NORCO) 15:45: 3D mouth 3 st 7.5-325 mg 51 (three) per tablet times a day. methocarbam 2017-09 Yes 750mg Q.[id number] Take 750 Ruvalcaba ol -14 [id number] mg by Methodi (ROBAXIN) 15:45: 3D mouth 3 st 500 MG 51 (three) tablet times a day. Takes 500 mg 1.5 TAB. (750 mg) gabapentin 2017-09 Yes 600mg QD Take 600 [place] (GRALISE) 1-14 mg by Methodi 600 mg 15:45: mouth st tablet 51 daily. extended release 24 hr montelukast 2017-09 Yes 10mg QD Take 10 mg Ruvalcaba (SINGULAIR) -14 by mouth Meth bharati 10 [...] daily. Pure Magnesium albuterol 2017-09 Yes 1{puff} [id number] Inhale 1 Ruvalcaba (PROAIR 1-14 [id number] puff 3 Meth bharati HFA,PROVENT 15:45: 3D [...] [facility] HCl HCl [facility] Vital Signs Vital Name Observation Time Observation Value Comments Source Heart Rate 2019-11-21 15:32:00 [facility] Solomon Respitory Rate 2019-11-21 15:32:00 Memori al Solomon Systolic (mm Hg) 2019-11-21 15:32:00 Brennen rial Solomon Diastolic (mm Hg) 2019-11-21 15:32:00 Mem orial [place] Heart Rate 2019-11-21 12:57:00 [facility] Solomon Respitory Rate 2019-11-21 12:57:00 Memori al [place] Systolic (mm Hg) 2019-11-21 12:57:00 Brennen rial [place] Diastolic (mm Hg) 2019-11-21 12:57:00 Mem orial [place] Heart Rate 2019-11-21 08:37:00 [facility] [place] Respitory Rate 2019-11-21 08:37:00 Memori al [place] Systolic (mm Hg) 2019-11-21 08:37:00 Brennen rial Solomon Diastolic (mm Hg) 2019-11-21 08:37:00 Mem orial Solomon Temperature Oral (F) 2019-11-18 12:00:00 98.3 F [facility] [place] Weight 2019-11-18 11:45:00 [facility] [place] BMI Calculated 2019-11-18 11:45:00 Memori al [place] Height 2019-11-14 19:59:00 162.56 cm [facility] Solomon Systolic (mm Hg) 2019-11-14 17:59:00 Brennen rial Solomon Diastolic (mm Hg) 2019-11-14 17:59:00 Mem orial [place] Heart Rate 2019-11-14 17:59:00 [facility] [place] Height 2019-11-14 17:59:00 162.56 cm [facility] Weight 2019-11-14 17:59:00 [facility] BMI Calculated 2019-11-14 17:59:00 Liliya Duarte Procedures Procedure Date / Time Performed Performing Clinician Reed pham Appendectomy [facility] Cataract extraction [facility] Gallbladder operation [facility] Knee [facility] replacement<sup>1</sup> Lumbar laminectomy and [facility] excision of intradural spinal lesion Rotator cuff repair [facility] Plan of Care Planned Activity Planned Date Details Comments Source Future Scheduled 2020-04-07 INFLUENZA VACCINE [place] [facility] Test 00:00:00 [code = INFLUENZA VACCINE] Future Scheduled 2013 BREAST CANCER [facility] thodist Test 00:00:00 SCREENING [code = BREAST CANCER SCREENING] Future Scheduled 2013 COLONOSCOPY SCREENING [place] [facility] Test 00:00:00 [code = COLONOSCOPY SCREENING] Future Scheduled 2013 SHINGLES VACCINES (#1) [place] [facility] Test 00:00:00 [code = SHINGLES VACCINES (#1)] Future Scheduled 1984 Screening for [place] [facility]odist Test 00:00:00 malignant neoplasm of cervix (procedure) [code = 218605400] Future Scheduled 1981 Hepatitis C screening [place] [facility] Test 00:00:00 (procedure) [code = 533790543] Future Scheduled 1979 COVID-19 VACCINE (1 of [place] [facility] Test 00:00:00 2) [code = COVID-19 VACCINE (1 of 2)] Future Scheduled 1973 DIABETES: RETINAL EYE [place] [facility] Test 00:00:00 EXAM [code = DIABETES: RETINAL EYE EXAM] Future Scheduled 1973 DIABETIC FOOT EXAM [place] [facility] Test 00:00:00 [code = DIABETIC FOOT EXAM] Future Scheduled 1973 URINE MICROALBUMIN [place] [facility] Test 00:00:00 [code = URINE MICROALBUMIN] Encounters Start End Encounter Admission Attending Care Care Encounter Source Date/Time Date/Time Type Type Clinicians Facility Department ID 2019-11-18 Inpatient [id number] 06:22:00 2020-10-05 2020-10-05 Telephone INDRA Arredondo [id number] 00:00:00 00:00:00 [facility] [id number] Surgical [id number] Specialti [id number] es [address] [place] 2020-09-27 2020-09-27 Hospital [facility] [id number] 08:21:38 23:59:00 Encounter Darrius Pagan [facility] [id number] Surgical [id number] Specialti [id number] es [id number] [place] 2020-09-27 2020-09-27 Office [facility] [id number] 07:50:24 08:32:23 Visit Darrius Pagan [facility] [id number] Surgical [id number] Specialti [id number] es 198 [place] 2020-07-23 2020-07-23 Outpatient Maniar, [facility] [id number] 14:00:00 14:00:00 [facility] 05 2019-12-29 2019-12-29 [facility] [id number] [address] 09:49:00 09:49:00 [facility] 2019-12-27 2019-12-27 [facility] [id number] 09:02:00 09:02:00 [facility] ent Clinics 2019-12-23 2019-12-24 [id number] 15:41:52 23:59:59 02 2019-12-14 2019-12-14 [facility] [id number] [facility] 14:36:00 14:36:00 [facility] 2019-11-18 2019-11-21 Outpatient Chika, [facility] [id number] 06:22:00 13:46:00 Eric I 00 2019-11-14 2019-11-14 Outpatient Maniar, [facility] [id number] 13:00:00 23:59:59 Gilmer H 03 2019-11-14 2019-11-14 Outpatient Maniar, [facility] [id number] 11:00:00 23:59:59 Gilmer H 04 2019-11-08 2019-11-08 [facility] [id number] [facility] 09:58:00 09:58:00 [facility] Medicine Outpati ent Clinics 2019-11-08 2019-11-08 [facility] [id number] [facility] 09:56:00 09:56:00 [facility] l Medicine Outpati ent Clinics 2019-10-24 2019-10-24 [facility] [id number] 21:19:00 21:19:00 [facility] Medicine Outpati ent Clinics 2019-10-24 2019-10-24 [facility] [id number] [facility] 21:06:00 21:06:00 [facility] Medicine Outpati ent Clinics 2019-10-24 2019-10-24 [facility] [id number] 09:30:00 09:30:00 [facility] Medicine Outpati ent Clinics 2019-09-13 2019-09-13 [facility] [id number] [address] 13:20:00 13:20:00 [facility] Medicine Outpati ent Clinics 2019-08-26 2019-08-26 [facility] [id number] [facility] 08:45:00 08:45:00 [facility] Medicine Outpati ent Clinics 2019-08-22 2019-08-22 [facility] [id number] [facility] 01:08:00 01:08:00 [facility] Medicine Outpati ent Clinics 2019-08-17 2019-08-17 [facility] [id number] 09:51:00 09:51:00 [facility] Medicine Outpati ent Clinics 2019-08-16 2019-08-16 [facility] [id number] [facility] 13:20:00 13:20:00 t [facility] Medicine Medicine Outpati ent Clinics 2019-07-21 2019-07-21 [facility] [id number] 14:47:00 14:47:00 t [facility] Medicine Outpati ent Clinics 2019-07-15 2019-07-15 [facility] [id number] 10:09:00 10:09:00 t [facility] Medicine Medicine Outpati ent Clinics 2019-07-15 2019-07-15 [facility] [id number] [facility] 08:40:00 08:40:00 t [facility] Medicine Outpati ent Clinics 2019-07-11 2019-07-11 [facility] [id number] 13:46:00 13:46:00 t [facility] Medicine Outpati ent Clinics 2019-06-28 2019-06-28 [facility] [id number] 02:54:00 02:54:00 t [facility] Medicine Outpati ent Clinics 2019-06-24 2019-06-24 [facility] [id number] [facility] 09:00:00 09:00:00 t [facility] Medicine Outpati ent Clinics 2019-06-23 2019-06-23 [facility] [id number] 15:00:00 15:00:00 t [facility] Medicine Outpati ent Clinics 2019-05-30 2019-05-30 [facility] [id number] [address] 15:13:00 15:13:00 t [facility] Medicine Outpati ent Clinics 2019-05-05 2019-05-05 [facility] [id number] 15:33:00 15:33:00 t [facility] Medicine Outpati ent Clinics 2019-04-28 2019-04-28 [facility] [id number] [address] 09:02:00 09:02:00 t [facility] Medicine Outpati ent Clinics 2019-04-26 2019-04-26 [facility] [id number] [facility] 13:43:00 13:43:00 t [facility] Medicine Outpati ent Clinics 2019-04-25 2019-04-25 [facility] [id number] [facility] 22:56:00 22:56:00 t [facility] Medicine Outpati ent Clinics 2019-04-24 2019-04-24 [facility] [id number] 11:41:00 11:41:00 t [facility] Medicine Outpati ent Clinics 2019-04-15 2019-04-15 [facility] [id number] 09:07:00 09:07:00 t [facility] Medicine Outpati ent Clinics 2019-04-15 2019-04-15 [facility] [id number] 08:00:00 08:00:00 t [facility] Medicine Outpati ent Clinics 2019-03-24 2019-03-24 Outpatient zzzAmy zzzLuisana [id number] [facility] 09:27:00 09:27:00 [facility] Outpati ent Clinics 2019-03-16 2019-03-16 [facility] [id number] 09:16:00 09:16:00 t [facility] Medicine Outpati ent Clinics 2019-02-22 2019-02-22 [facility] [id number] 09:03:00 09:03:00 t [facility] Medicine Outpati ent Clinics 2019-02-18 2019-02-18 [facility] [id number] [facility] 18:38:00 18:38:00 [facility] Outpati ent Clinics 2019-02-18 2019-02-18 [facility] [id number] 15:06:00 15:06:[address] [facility] [facility] ent [facility] 2019-02-16 2019-02-16 [facility] [id number] [facility] 16:06:00 16:06:00 [facility] 2019-02-15 2019-02-15 [facility] [id number] 15:20:00 15:20:[address] [facility] [facility] ent [facility] 2018-04-28 2018-04-29 Outpatient MHMISCHER MHMISCHER [id number] 09:28:00 23:59:59 2018-04-07 2018-04-08 Outpatient MHMISCHER MHMISCHER [id number] 14:39:00 23:59:59 00 Results Test Description Test [...] code = MCH) 31.6 pg 27.0-31.0 [facility] MkvryksLLRWKZGVOW8840-94-86 09:56:0034.2[facility] 2019-11-21 09:56:0013.3[facility] DtlyetlGDCRUVZHCK5721-53-28 09:56:46220Pxcrttxs IqwhowbKKFLMEQXPR9220-62-61 09:56:008.0[facility] HermannCHEM MEJMQ5541-05-29 07:18:24886Vmzovmwv HermannCHEM BDIXU1686-44-39 07:18:0018[facility] HermannCHEM HLMLZ2581-90-89 07:18:000.60[facility]annCHEM UHXNB6628-58-40 07:18:51128 [facility]annCHEM RRHEV6647-55-48 07:18:004.2[facility]annCHEM PANEL 2019-11-20 07:18:29231Tyciakps HermannCHEM CAKSZ5973-42-23 07:18:0028[facility]annCHEM DQKBP1435-63-78 07:18:008.8[facility]annCHEM TYZTO8981-96-62 07:18:0011.2[facility]annCHEM POJZT6653-83-61 07:18:86313Utxtquld HermannCHEM FLXMX7217-10-70 07:18:001.8[facility]annCHEM KLWGW9093-67-14 07:18:003.2 [facility] GlrmwtmVVSNVAVZJT1627-87-66 07:18:0013.5[facility]annHEMATOLOGY 2019-11-20 07:18:003.98[facility] OqtccgaTECODJAAZW1206-25-57 07:18:0012.2[facility] TuhdknlTLIHYVZYIB0251-71-26 07:18:0037.0[facility] SdjojuzAJBGDAGKPN6209-73-83 07:18:0093.0[facility] GoyzrxdMEURRHJTKE3846-92-55 07:18:00 Test Item Value Reference Range Interpretation Comments MCH (test code = MCH) 30.7 pg 27.0-31.0 [facility] IxjymlnGDRDJJJYND9787-46-79 07:18:0033.0[facility]annHEMATOLOGY 2019-11-20 07:18:0013.2[facility] ZapjejyNEWJGWIKGA8531-82-92 07:18:89471Efzvukvg FocfkxpNNCAHTEKUA7843-21-05 07:18:008.1[facility] GnfvtmwGWDZJNPIDN3376-96-06 07:18:00Normal (11/20/19 2:18 AM)[facility] CvpvvewMYWWWGRCVB8598-76-31 07:18:00 Normal (11/20/19 2:18 AM)[facility] GujtqnmAVENZWDNBA5570-39-28 07:18:0083.0 [facility] AhkkbdsUFQQZILOWF8165-38-78 07:18:0011.2[facility]annHEMATOLOGY 2019-11-20 07:18:004.4[facility] EnytasgKVPGOXKASJ0064-83-21 07:18:001.1[facility] FodyslvLQORGCODRT5851-01-15 07:18:000.3[facility] MfatrfnMFTAJIRJAA8945-36-52 07:18:0011.2[facility] ClttaebYZKWTQKYFF2452-43-11 07:18:001.5[facility] RETBCADNCS0504-16-24 07:18:000.6[facility] IrmuyozPSPCMXYNER7724-30-60 07:18:000.1 [facility] CbnyiffPSYPOVTWSM0187-84-87 07:18:000.0[facility] HermannPARATHYROID POCNWSJ3005-37-21 07:18:001.07[facility] HermannPARATHYROID RPKEJKV6514-63-78 07:18:001.09[facility] HermannCHEM FFNER0191-53-34 07:06:004.0[facility] HermannCHEM ORUBY6609-81-10 07:06:001.7[facility] HermannCHEM TFBUX1185-66-97 07:06:93506 [facility]annCHEM KJKKD5308-58-96 07:06:0013[facility] HermannCHEM PANEL 2019-11-19 07:06:000.50[facility] HermannCHEM WUWQG1589-13-34 07:06:13920Dfkhzsux HermannCHEM AAFEE9413-15-16 07:06:003.8[facility] HermannCHEM KGSWR2559-18-97 07:06:99052Bncdqchh HermannCHEM QDLPM9931-49-13 07:06:0029[facility] HermannCHEM PKKWK7205-04-27 07:06:0011.8[facility] HermannCHEM MEYGM0598-53-98 07:06:008.5 [facility]annCHEM TQQDD7607-86-30 07:06:00 Test Item Value Reference Range Interpretation Comments B/C Ratio (test code = B/C Ratio) 26 1 6-25 [facility]annCHEM NPZTU1360-54-74 07:06:006.9[facility]annCHEM PANEL 2019-11-19 07:06:003.1[facility] HermannCHEM BFVCY4307-86-65 07:06:003.8[facility] HermannCHEM FYLIS9145-66-94 07:06:00 Test Item Value Reference Range Interpretation Comments A/G Ratio (test code = A/G Ratio) 0.8 1 0.7-1.6 [facility]annCHEM ZLMRU8579-91-26 07:06:27257Zyotkpis HermannCHEM PANEL 2019-11-19 07:06:18118Rcfnjwga HermannCHEM ZYFWE6002-35-85 07:06:03363Rkebkuvy HermannCHEM DDMUB0013-78-06 07:06:000.4[facility] HermannCHEM LZBHM1170-50-81 07:06:27740Imgcycar NgwloiiZSDZOQOIKQ9269-35-38 07:06:009.8[facility] SWHPEJTDFC2844-59-95 07:06:003.94[facility] KdsxbthTGXTWOZITD2417-08-91 07:06:00 12.4[facility] XzzsohuYMYJMUAQZW8846-68-12 07:06:0036.6[facility] HermannHEMATOLOGY 2019-11-19 07:06:0092.9[facility] TwjgxbzCWNTLHUXEW0196-51-89 07:06:00 Test Item Value Reference Range Interpretation Comments MCH (test code = MCH) 31.4 pg 27.0-31.0 [facility] KkmuglhGJPGNXRKIC4292-97-91 07:06:0033.8[facility]annHEMATOLOGY 2019-11-19 07:06:0013.1[facility] FnmmvhsGPHJXSPKTE0159-45-28 07:06:95931Lgphhqpz AyouahrBIBKTHJVTI2031-82-22 07:06:008.0[facility] RxlzrotICZOVPOHZY5660-79-03 07:06:00 Test Item Value Reference Range Interpretation Comments PTT (test code = PTT) 31.4 s 22.9-35.8 [facility] WdlpscmETSYXOYADG2704-07-73 07:06:00 Test Item Value Reference Range Interpretation Comments PT (test code = PT) 13.7 s 12.0-14.7 [facility] QuxplyfQTVAPNERQV7027-18-81 07:06:00 Test Item Value Reference Range Interpretation Comments INR (test code = INR) 1.05 1 0.85-1.17 [facility] VrlkzixOSUUOWMPOS7691-00-86 07:06:0068.3[facility] HermannHEMATOLOGY 2019-11-19 07:06:0021.7[facility] ZxkvrmzMHZWEITHRR9155-12-31 07:06:007.7[facility] ZycflhrWXNLTKDINZ2264-86-41 07:06:001.7[facility] FmwsgbfGOFMXUWRWW0292-41-18 07:06:000.6[facility] MyksftrDSMQXGJBPS6028-90-33 07:06:006.7[facility] RPWMTDXGBX3979-92-67 07:06:002.1[facility] LehurmjLWBHHAWGVT6500-93-63 07:06:000.8 [facility] VqtigebQXSWBSWQRR7445-97-72 07:06:000.2[facility] HermannHEMATOLOGY 2019-11-19 07:06:000.1[facility] HermannCHEM RBHSD4931-11-09 16:12:001.9[facility] HermannCHEM NHGHL8484-53-69 16:12:004.8[facility] BgygqleFOZSHUDINX4047-73-63 16:12:00 Test Item Value Reference Range Interpretation Comments PT (test code = PT) 13.9 s 12.0-14.7 [facility] OwrwvkyPJEJOIRNZA8019-20-61 16:12:00 Test Item Value Reference Range Interpretation Comments INR (test code = INR) 1.07 1 0.85-1.17 [facility] DzkibtaAUEOVQXGUW1269-17-33 16:12:00 Test Item Value Reference Range Interpretation Comments PTT (test code = PTT) 28.3 s 22.9-35.8 [facility] QhlpnhsKNHEOIQCIE5367-96-23 16:12:51905Unitybpz BblgsatJXGQIB8012-32-29 16:12:0066[facility] GskdiriLJGYJW6171-57-34 16:12:21386Apvqdbru HermannLIPIDS 2019-11-18 16:12:0054[facility] RozxfzwYFEPNM1987-85-86 16:12:00 Test Item Value Reference Range Interpretation Comments CHD Risk (test code = CHD Risk) 2.48 1 3.90-5.80 [facility] ZpwbeowCVKGAU1402-44-57 16:12:0067[facility] TxuzeseDGMQBT8242-73-39 16:12:00 Test Item Value Reference Range Interpretation Comments VLDL (test code = VLDL) 13 1 [facility] HermannPARATHYROID SCEOLOW6688-53-15 16:12:001.18[facility] PARATHYROID JQJHTCA8303-19-71 16:12:001.22[facility] HewaawiKJTRENQEHZRS4880-59-90 12:16:06564Pitukgfr ChwibkxJQDPPNOVZGBB5005-81-63 12:16:004.9[facility] MUWKWRSDRLCS1545-57-33 12:16:43716Xkrnhukv TfathpeFKCHDNZRFUSA9900-22-83 12:16:0031[facility] AtjlsaeKHKRTAWURYNE3892-51-96 12:16:0024[facility] BQHLWXCRDUGE1226-60-78 12:16:000.5[facility] GtjabmgRXORQZCNLPNV3028-38-25 12:16:0079[facility] OwsaozrXKRBOAAGUMCJ4166-62-41 12:16:001.22[facility] YEBKKSGXLTDW2843-15-20 12:16:0013.9[facility] MmkmuexCGBBNLQKLSWW3026-09-01 12:16:0041.0[facility] BixpdxtVIUDEQRMNLUF8223-70-53 12:16:0012.0[facility] OEMRMREPFMSZ1286-85-58 12:16:00See Note *NA*(11/18/19 7:16 AM)[facility] BLOOD BANK VWHYKBB1340-62-62 11:55:00Negative (11/18/19 6:55 AM)[facility] BACTERIAL - COHMVFSP8738-31-41 20:23:00Negative (11/14/19 3:23 PM)[facility] BLOOD BANK NNJAICB3561-06-59 20:12:00Negative (11/14/19 3:12 PM)[facility] CHEM FMFUX8966-50-52 20:12:007.5[facility] HermannCHEM ZFGCY2425-74-74 20:12:003.5 [facility]annCHEM DBEDS3160-82-25 20:12:0019[facility] HermannCHEM PANEL 2019-11-14 20:12:0015[facility] HermannCHEM ZBQJT8980-96-82 20:12:0074[facility] HermannCHEM RZQWJ7772-72-39 20:12:000.2[facility] HermannCHEM MYLSJ6115-12-05 20:12:00 Test Item Value Reference Range Interpretation Comments B/C Ratio (test code = B/C Ratio) 17 1 6-25 [facility]annCHE[facility] URJLX5432-98-00 [facility] 2019-11-14 20:12:00 Test Item Value Reference Range Interpretation Comments A/G Ratio (test code = A/G Ratio) 0.9 1 0.7-1.6 [facility]adtv[facility]YMKEGUOWJG8956-58-38 20:12:00 Test Item Value Reference Range Interpretation Comments PT (test code = PT) 12.6 s 12.0-14.7 [facility] HospitalVxszuexAFMRXCOSZG6241-56-27 20:12:00 Test Item Value Reference Range Interpretation Comments INR (test code = INR) 0.94 1 0.85-1.17 [facility]
[2020-10-31] MEDS ORDERED: HYDROCODONE/APAP 10/325 TAB ONE (13:30)
[2020-10-31] MEDS ORDERED: KETOROLAC 30 MG/ML INJ ONE (13:31)
--- NOTE | 2020-10-31 14:31 | RAD REPORT ---
EXAM DESCRIPTION: RAD - Sacrum And Coccyx - 10/31/2020 2:21 pm CLINICAL HISTORY: PAIN COMPARISON: Lumbar Spine 3 Views dated 09/21/2019; Lumbar Spine 3 Views dated 01/10/2018; Lumbar Spine 3 Views dated 01/09/2016; SPINE LUMBAR W OBLIQUE dated 04/20/2014 FINDINGS: Posterior hardware is present L5-S1. Bilateral pars defects are noted at this surgical lev el without evidence of spondylolisthesis. No hardware complication evident. No acute fracture or subluxation seen. IMPRESSION: No acute finding demonstrated.
--- NOTE | 2020-10-31 14:35 | EDPHYS ---
Physician Documentation [facility] Name: Charlotte Ruvalcaba Age: 55 yrs Sex: Female : 1965 Arrival Date: 10/31/2020 Time: 11:20 Bed 25 Private MD: Naseem Sanchez E ED Physician Spenser Ruvalcaba HPI: 10/31 14:20 This 55 yrs old Black Female presents to ER via Ambulatory with complaints of Sore kb Throat, Cough, Back Pain. 14:18 Pt reports chronic back pain that was exacerbated by a fall last week, but main concern kb is sore throat, cough, congestion, and sneezing that started yesterday. 14:20 The patient presents with sore throat. The patient describes throat pain as constant. kb Onset: The symptoms/episode began/occurred yesterday. Severity of symptoms: At their worst the symptoms were moderate, in the emergency department the symptoms are unchanged. Modifying factors: The symptoms are alleviated by nothing, the symptoms are aggravated by swallowing. Associated signs and symptoms: Pertinent positives: chills, fever, shortness of breath Sore throat. The patient has not experienced similar symptoms in the past. The patient has not recently seen a physician. Historical: - Allergies: 11:39 NKDA; ca1 - PMHx: 11:39 Asthma; breast cancer; chronic pain, sees pain doctor; COPD; Diabetes - IDDM; Gout; ca1 Hypertension; Hypothyroidism; - PSHx: 11:39 Hysterectomy; Appendectomy; Cholecystectomy; kidney stones; shoulder surgery; Knee ca1 surgery; back surgery; - Immunization history:: Pneumococcal vaccine is up to date, Flu vaccine is up to date. - Social history:: Smoking status: Patient denies any tobacco usage or history of. ROS: 14:13 Cardiovascular: Negative for chest pain, palpitations, and edema, Abdomen/GI: Negative kb for abdominal pain, nausea, vomiting, diarrhea, and constipation, MS/Extremity: Negative for injury and deformity, Skin: Negative for injury, rash, and discoloration. 14:13 ENT: Positive for sinus congestion, sore throat. 14:13 Respiratory: Positive for cough, Negative for dyspnea on exertion, hemoptysis, orthopnea, pleurisy, shortness of breath, sputum production, wheezing. 14:13 Back: Positive for pain at rest, pain with movement, of the low back area. 14:19 Constitutional: Positive for chills, fever, malaise. kb Exam: 14:17 Constitutional: This is a well developed, well nourished patient who is awake, alert, kb and in no acute distress. Head/Face: Normocephalic, atraumatic. Cardiovascular: Regular rate and rhythm with a normal S1 and S2. No gallops, murmurs, or rubs. Normal PMI, no JVD. No pulse deficits. Respiratory: Lungs have equal breath sounds bilaterally, clear to auscultation and percussion. No rales, rhonchi or wheezes noted. No increased work of breathing, no retractions or nasal flaring. Abdomen/GI: Soft, non-tender, with normal bowel sounds. No distension or tympany. No guarding or rebound. No evidence of tenderness throughout. Skin: Warm, dry with normal turgor. Normal color with no rashes, no lesions, and no evidence of cellulitis. MS/ Extremity: Pulses equal, no cyanosis. Neurovascular intact. Full, normal range of motion. 14:17 Back: pain, that is moderate, of the low back area, ROM is normal, normal spinal alignment noted, CVA tenderness, is absent. 14:17 Neuro: Orientation: is normal, to person, place, time \T\ situation. Mentation: is normal, lucid, Motor: is normal, moves all fours, Sensation: is normal, Gait: is steady, without difficulty. Vital Signs: 11:34 BP 123 / 62; Pulse 73; Resp 16 S; Temp 96.7(TE); Pulse Ox 97% on R/A; Weight 87.09 kg ca1 (R); Height 5 ft. 4 in. (162.56 cm) (R); Pain 9/10; 13:30 BP 114 / 75; Pulse 63; Resp 18; Pulse Ox 95% on R/A; zb 14:37 BP 106 / 56; Pulse 64; Resp 16; Pulse Ox 98% on R/A; zb 11:34 Body Mass Index 32.96 (87.09 kg, 162.56 cm) ca1 MDM: 12:28 Patient medically screened. kb 14:16 Data reviewed: vital signs, nurses notes. Data interpreted: Pulse oximetry: on room air kb is 97 %. Interpretation: normal. Counseling: I had a detailed discussion with the patient and/or guardian regarding: the historical points, exam findings, and any diagnostic results supporting the discharge/admit diagnosis, lab results, radiology results, the need for outpatient follow up, a family practitioner, to return to the emergency department if symptoms worsen or persist or if there are any questions or concerns that arise at home. 10/31 11:41 Order name: Flu; Complete Time: 13:01 ca1 10/31 11:41 Order name: Strep; Complete Time: 12:28 [facility] 10/31 12:28 Order name: Throat Culture EDAK 10/31 12:57 Order name: SARS-COV-2 RT PCR; Complete Time: 13:01 EDAK 10/31 13:01 Order name: Sacrum And Coccyx XRAY; Complete Time: 14:34 kb Administered Medications: 13:23 Drug: [place] 10 mg-325 mg 1 tabs Route: PO; zb 14:48 Follow up: Response: No adverse reaction; Pain is decreased; RASS: Alert and Calm (0) zb 13:23 Drug: TORadol 60 mg Route: IM; Site: right deltoid; zb 14:48 Follow up: Response: Marked relief of symptoms; Pain is decreased zb Disposition: 17:56 Co-signature as Attending Physician, Spenser Ruvalcaba MD. rn Disposition: 10/31/20 14:34 Discharged to Home. Impression: Low back pain - chronic, Acute sinusitis. - Condition is Stable. - Discharge Instructions: Sinusitis, Adult, Lqsn-eq-Pynl, Back Pain, Adult, Xjhe-nh-Mtkn. - Medication Reconciliation Form, Thank You Letter, Antibiotic Education, Prescription Opioid Use form. - Follow up: Emergency Department; When: As needed; Reason: Worsening of condition. Follow up: Private Physician; When: 2 - 3 days; Reason: Recheck today's complaints, Continuance of care, Re-evaluation by your physician. Signatures: Dispatcher [employer] Aubrie Robertson, RADIOGRAPHER CARDIAC CATHETERIZATION-C RADIOGRAPHER CARDIAC CATHETERIZATION-Spenser Lilly MD MD rn Ney, Carito, RN RN Lali Bustamante RN RN zb Corrections: (The following items were deleted from the chart) 12:17 11:42 CORONAVIRUS+MR.LAB.BRZ ordered. [facility] EDAK 14:19 14:18 Pt reports chronic back pain that was exacerbated by a fall last week, but main kb concern is sore throat, cough, congestion, and sneezing that started a few days ago. kb 14:20 14:13 Constitutional: Negative for fever, chills, and weight loss, Cardiovascular: kb Negative for chest pain, palpitations, and edema, Abdomen/GI: Negative for abdominal pain, nausea, vomiting, diarrhea, and constipation, MS/Extremity: Negative for injury and deformity, Skin: Negative for injury, rash, and discoloration, kb 14:49 14:34 10/31/2020 14:34 Discharged to Home. Impression: Low back pain - chronic; Acute zb sinusitis. Condition is Stable. Forms are Medication Reconciliation Form, Thank You Letter, Antibiotic Education, Prescription Opioid Use. Follow up: Emergency Department; When: As needed; Reason: Worsening of condition. Follow up: Private Physician; When: 2 - 3 days; Reason: Recheck today's complaints, Continuance of care, Re-evaluation by your physician. kb
--- NOTE | 2020-10-31 14:35 | ER ---
Nurse's Notes [facility] Name: Charlotte Ruvalcaba Age: 55 yrs Sex: Female : 1965 Arrival Date: 10/31/2020 Time: 11:20 Bed 25 Private MD: Naseem Sanchez E Diagnosis: Low back pain-chronic;Acute sinusitis Presentation: 10/31 11:34 Chief complaint: Patient states: Low back pain, more on the L side started on 10/11/2020 ca1 after a fall. Yesterday, headache, fever, congestion and runny nose, sore throat, loss of appetite, cough. Coronavirus screen: Client denies travel out of the [place] in the last 14 days. congestion, cough unrelated to allergies, headache, runny nose, sore throat, Client presents with at least one sign or symptom that may indicate coronavirus-19. Standard/surgical mask placed on the client. Provider contacted for isolation considerations. Ebola Screen: Patient negative for fever greater than or equal to 101.5 degrees Fahrenheit, and additional compatible Ebola Virus Disease symptoms Patient denies exposure to infectious person. Patient denies travel to an Ebola-affected area in the 21 days before illness onset. No symptoms or risks identified at this time. Initial Sepsis Screen: Does the patient meet any 2 criteria? No. Patient's initial sepsis screen is negative. Does the patient have a suspected source of infection? No. Patient's initial sepsis screen is negative. Risk Assessment: Do you want to hurt yourself or someone else? Patient reports no desire to harm self or others. Onset of symptoms was October 30, 2020. 11:34 Method Of Arrival: Ambulatory ca1 11:34 Acuity: RASHAD 3 ca1 Historical: - Allergies: 11:39 NKDA; ca1 - PMHx: 11:39 Asthma; breast cancer; chronic pain, sees pain doctor; COPD; Diabetes - IDDM; Gout; ca1 Hypertension; Hypothyroidism; - PSHx: 11:39 Hysterectomy; Appendectomy; Cholecystectomy; kidney stones; shoulder surgery; Knee ca1 surgery; back surgery; - Immunization history:: Pneumococcal vaccine is up to date, Flu vaccine is up to date. - Social history:: Smoking status: Patient denies any tobacco usage or history of. Screenin:30 Abuse screen: Denies threats or abuse. Denies injuries from another. Nutritional zb screening: No deficits noted. Tuberculosis screening: No symptoms or risk factors identified. Fall Risk None identified. Assessment: 12:30 General: Appears in no apparent distress. uncomfortable, Behavior is calm, cooperative, zb appropriate for age, Reports chills for fever for 0-12 hours, feeling ill for 0-12 hours, fatigue for 0-12 hours. Pain: Complains of pain in low back area Pain does not radiate. Pain currently is 8 out of 10 on a pain scale. Quality of pain is described as aching, sharp, Is continuous. Neuro: Level of Consciousness is awake, alert, obeys commands, Oriented to person, place, time, situation, Denies blurred vision photophobia diplopia. Cardiovascular: Heart tones S1 S2 present Capillary refill < 3 seconds Patient's skin is warm and dry. Pulses are all present. Rhythm is regular. Respiratory: Airway is patent Respiratory effort is even, unlabored, Respiratory pattern is regular, symmetrical, Breath sounds are clear bilaterally. Breath sounds are diminished. GI: Abdomen is round non-distended, Bowel sounds present X 4 quads. Abd is soft and non tender X 4 quads. : No signs and/or symptoms were reported regarding the genitourinary system. EENT: Throat has enlarged tonsils bilaterally with gag reflex present. Derm: Skin is intact, is healthy with good turgor, Skin is dry, Skin is normal, Skin temperature is warm. Musculoskeletal: Range of motion: limited in left hip. 13:30 Reassessment: Patient appears in no apparent distress at this time. Patient and/or zb family updated on plan of care and expected duration. Pain level reassessed. Patient is alert, oriented x 3, equal unlabored respirations, skin warm/dry/pink. patient awaiting x-ray results. 14:49 Reassessment: Patient appears in no apparent distress at this time. Patient and/or zb family updated on plan of care and expected duration. Pain level reassessed. Patient is alert, oriented x 3, equal unlabored respirations, skin warm/dry/pink. patient d/c gait steady and even. pain decreased to 5/10. Vital Signs: 11:34 BP 123 / 62; Pulse 73; Resp 16 S; Temp 96.7(TE); Pulse Ox 97% on R/A; Weight 87.09 kg ca1 (R); Height 5 ft. 4 in. (162.56 cm) (R); Pain 9/10; 13:30 BP 114 / 75; Pulse 63; Resp 18; Pulse Ox 95% on R/A; zb 14:37 BP 106 / 56; Pulse 64; Resp 16; Pulse Ox 98% on R/A; zb 11:34 Body Mass Index 32.96 (87.09 kg, 162.56 cm) ca1 ED Course: 11:20 Patient arrived in ED. ag5 11:20 Naseem Sanchez MD is Private Physician. ag5 11:38 Triage completed. ca1 11:39 Arm band placed on right wrist. ca1 11:50 Flu Sent. ca1 11:50 Strep Sent. ca1 12:27 [facility] Best [facility]C [facility]. kb 12:27 Spenser Ruvalcaba MD is Attending Physician. kb 12:37 Lali Fink RN is Primary Nurse. zb 14:09 Patient has correct armband on for positive identification. Pulse ox on. NIBP on. Door zb closed. Noise minimized. Warm blanket given. Head of bed lowered. 14:20 Sacrum And Coccyx XRAY In Process Unspecified. EDMS 14:48 No provider procedures requiring assistance completed. Patient did not have IV access zb during this emergency room visit. Administered Medications: 13:23 Drug: Labadie 10 mg-325 mg 1 tabs Route: PO; zb 14:48 Follow up: Response: No adverse reaction; Pain is decreased; RASS: Alert and Calm (0) zb 13:23 Drug: TORadol 60 mg Route: IM; Site: right deltoid; zb 14:48 Follow up: Response: Marked relief of symptoms; Pain is decreased zb Outcome: 14:34 Discharge ordered by . kb 14:48 Discharged to home ambulatory. zb 14:48 Condition: stable 14:48 Discharge instructions given to patient, Instructed on discharge instructions, follow up and referral plans. Demonstrated understanding of instructions, follow-up care. 14:49 Patient left the ED. zb Signatures: Dispatcher [employer] EDMS Aubrie Best FNP-C FNP-Carito Ann RN RN ca1 Sandra Russell 5 Lali Fink RN RN zb
== END 2020-10-31 14:49 | disposition home or self-care (01) ==
LOC: ER 11:17
DX: J01.90 Acute sinusitis, unspecified (principal); Z20.822 Contact with and (suspected) exposure to COVID-19; M54.5 Low back pain; I10 Essential (primary) hypertension
CPT/HCPCS: 87070; 87081; 87804 ×2; 72220; 96372; 99284; U0003

== ENCOUNTER 2021-02-09 16:06 | Emergency (ER) | payer OTHER ==
--- OUTSIDE RECORDS SUMMARY | 2021-02-09 16:11 | XMS REPORT | Continuity of Care Document ---
:1965 Author Organization [facility] t Address [address] [place] [address] Care Team Providers Name Role Phone JANNA Attending Clinician Unavailable DAYLIN Attending Clinician Unavailable Doctor Unassigned, Name Attending Clinician Unavailable Arnulfo BRAGA, S Attending Clinician Zuleika BRINK, L Attending Clinician Natali Hurst Attending Clinician Chika, I Attending Clinician Chika, I Admitting Clinician Payers Payer Name Policy Type Policy Number Effective Date Expiration Date S ource Problems Condition Condition Condition Status Onset Resolution Last Treating Co mments Source Name Details Category Date Date Treatment Clinician Date I65.22 Diagnosis Active 2019-11-24 [facility] oria 3 21:49:00 l I65.22 00:00: Active 11/08/2019 [facility] N/A Diagnosis Active 2019-11-16 Mem oria 3 09:55:00 l N/A 00:00: Coy 00 Active 11/08/2019 [facility] Chronic Chronic Problem Active [facility] obstructiv obstructiv Verenice kes - e e Memoria pulmonary pulmonary l disease, disease, Outpat i unspecifie unspecifie en t d COPD d COPD Clinics type type Abnormal Abnormal Problem Active [facility] urine odor urine odor Verenice kes - Memoria l [facility] ent Clinics Hoarseness Hoarseness Problem Active [facility] Clinics Hyperlipid Hyperlipid Problem Active [facility] emia, emia, [facility] - unspecifie unspecifie Me moria d d l hyperlipid hyperlipid Ou tpati emia type emia type ent Clinics Sore Sore Problem Active [facility] throat throat [facility] ent Clinics Non-intrac Non-intrac Problem Active [facility] table table [facility] - vomiting vomiting Memori a with with l nausea, nausea, Outpati unspecifie unspecifie en t d vomiting d vomiting Cl inics type type Chest Chest Problem Active [facility] tightness tightness Luke s - Memoria l [facility] ent [facility] Exposure Exposure Problem Active [facility] to mold to mold [facility] ent [facility] Wheezing Wheezing Problem [facility] Shortness Shortness Problem Active [facility] of breath of breath Luke s - Memoria l [facility] ent [facility] Itching Itching Problem [facility] Muscle Muscle Problem Active [facility] cramping cramping [facility] ent [facility] Right leg Right leg Problem Active [facility] pain pain [facility] - [facility] ent [facility] Acute Acute Problem Active [facility] right-side right-side Verenice kes - d thoracic d thoracic Me moria back pain back pain l [facility] ent [facility] Low back Low back Problem Active [facility] pain pain [facility] ent [facility] Other Other Problem Active [facility] chronic chronic [facility] - pain pain Memoria l [facility] ent [facility] Lumbago Lumbago Problem Active [facility] with with [facility] - sciatica, sciatica, Brennen oscar right side right side l [facility] ent [facility] Status Status Problem Active [facility] post fall post fall Luke s - Memoria l [facility] ent [facility] Dizziness Dizziness Problem Active [facility] ent [facility] Imbalance Imbalance Problem Active [facility] Difficulty Difficulty Problem Active [facility] sleeping sleeping [facility] ent [facility] Acute Acute Problem Active [facility] stress stress [facility] - reaction reaction Memori a l [facility] 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[facility] - both both Memoria carotid carotid l arteries arteries Outpat i ent Clinics Stenosis Stenosis Problem Active [facility] of left of left [facility] - carotid carotid Memoria artery artery l Outpati ent Clinics Status Status Problem Active [facility] post CVA post CVA [facility] Stenosis Stenosis Problem Active [facility] of right of right [facility] - carotid carotid Memoria artery artery l Outpati ent Clinics Occlusion Problem 2019-11-23 Me moria and 21:46:33 l stenosis Coy of left Occlusion carotid and artery stenosis of left carotid artery 11/23/2019 [facility] Carotid Problem Active 2020-07-25 Brennen oscar artery 22:46:12 l stenosis Carotid Keisha nn (disorder) artery stenosis (disorder) Active Problem 07/25/2020 [facility] Carpal Problem Active 2020-07-25 Memor ia tunnel 22:46:12 l syndrome Carpal Andrei n (disorder) tunnel syndrome (disorder) Active Problem 07/25/2020 [facility] Diabetes Problem Active 2020-07-25 Mem oria mellitus 22:46:12 l (disorder) Diabetes He rmann mellitus (disorder) Active Problem 07/25/2020 [facility] Diabetes Problem Active 2020-07-25 Mem oria mellitus 22:46:12 l type 2 Diabetes Andrei n (disorder) mellitus type 2 (disorder) Active Problem 07/25/2020 [facility] Disorder Problem Active 2020-07-25 Mem oria of carotid 22:46:12 l artery Disorder Andrei n (disorder) of carotid artery (disorder) Active Problem 07/25/2020 [facility] Hypertensi Problem Active 2020-07-25 M emoria ve 22:46:12 l disorder, Coy systemic Hypertensi arterial ve (disorder) disorder, systemic arterial (disorder) Active Problem 07/25/2020 [facility] Hyperlipid Problem Active 2020-07-25 M emoria emia 22:46:12 l (disorder) Andrei n Hyperlipid emia (disorder) Active Problem 07/25/2020 [facility] Hypothyroi Problem Active 2020-07-25 M emoria dism 22:46:12 l (disorder) Andrei n Hypothyroi dism (disorder) Active Problem 07/25/2020 [facility] Simple Problem Active 2020-07-25 Memor ia obesity 22:46:12 l (disorder) Simple Herm mary obesity (disorder) Active Problem 07/25/2020 [facility] OCCLUSION Diagnosis Active 2019-11-24 Memoria AND 21:49:00 l STENOSIS Solomon OF LEFT OCCLUSION CAROTID A AND STENOSIS OF LEFT CAROTID A Active [facility] Uncontroll Uncontroll Problem Active [facility] ed type 2 ed type 2 Luke s - diabetes diabetes Memori a mellitus mellitus l with with Outpati hyperglyce hyperglyce en t [facility] Clinics Anxiety Anxiety Problem Active [facility] Clin[facility] Asthma, Asthma, Problem Active [facility] unspecifie unspecifie Verenice kes - d asthma d asthma Memori a severity, severity, l unspecifie unspecifie Ou tpati d whether d whether ent complicate complicate Cl inics d, d, unspecifie unspecifie d whether d whether persistent persistent Diabetes Diabetes Problem Active [facility] Swelling Swelling Problem Active [facility]ics High blood High blood Problem Active [facility] pressure pressure [facility] Clinics Sinus Sinus Problem Active [facility] problem problem [facility]ics High High Problem Active [facility] cholestero cholestero Verenice kes - l l Memoria l [facility] Clinics Depression Depression Problem Active [facility] with with [facility]ukes - anxiety anxiety Memoria l [facility] ent Clinics Acquired Acquired Problem Active [facility] hypothyroi hypothyroi Verenice kes - dism dism Memoria l [facility] Clinics Chronic Chronic Problem Active [facility] pain pain [facility]ukes - syndrome syndrome Memori a l [facility] Clinics Polyarthra Polyarthra Problem Active [facility] lgia lgia [facility]ics Gastroesop Gastroesop Problem Active [facility] hageal hageal Lukes - reflux reflux Memoria disease, disease, l esophagiti esophagiti Ou tpati s presence s presence en t not not Clinics specified specified Allergies, Adverse Reactions, Alerts Allergy Allergy Status Severity Reaction(s) Onset Inactive Treating Comm ents Source Name Type Date Date Clinician No Known No Known Active Memori a Medicati Medicati l on on Solomon Silva s s Social History Social Habit Start Date Stop Date Quantity Comments Source Social History 2019-11-14 2019-11-14 [facility] 21:12:20 21:12:20 Medications Ordered Filled Start Stop Current Ordering Indication Dosage Frequency Signature Comments Components Source Medication Medication Date Date Medication? Clinician (SIG) Name Name Aspirin 81 Yes 81 mg = 1 Me moria MG Chewable 3-16 tab, PO, l Tablet 17:44: Daily, # Coy 00 90 tab, 0 Refill(s), Pharmacy: [id number] Esomeprazol No 40 mg, 1 Me moria e 3-16 cap, l 14:00: Route: PO, Solomon 00 Drug form: ECCAP, Daily, Dosing Weight 79.091, kg, Start date: 11/21/19 9:00:00 CDT, Duration: 30 day, Stop date: 12/20/19 9:00:00 CDT Estradiol No Notes: Memori a 3-16 Hazardous l 14:00: Drug Group Solomon 00 2:Non-anti neoplastic Hazardous Drug -- Refer to safe handling procedure PPE Matrix Fluticasone No Notes: Brennen oscar propionate 3-16 (Same as: l 0.05 14:00: Flonase) Solomon MG/ACTUAT 00 Metered Dose Nasal [place] [Flonase] Hydrochloro No 1 tab, Brennen oscar thiazide 25 3-16 Route: PO, l MG / 14:00: Drug Form: Solomon Losartan 00 TAB, Potassium Dosing 100 MG [...] Memoria 3-16 Same as l 14:00: Januvia Coy 00 Insulin No Notes: Memoria Glargine 3-16 [...] Memoria 3-16 (Same as: l 14:00: Cozaar) Coy Thyroxine No Notes: Memori a 3-16 Take [...] Memoria 3-16 (Same as: l 02:00: Humalog) Coy 00 Roll in palms of hands gently; Do not shake vigorously . WASTE: F/P - Black; E - Municipal Trash Bin Stable for 28 days at room temperatur e. Expires in days from ____Date montelukast No Notes: Brennen oscar 3-16 (Same l 02:00: as:Singula Solomon 00 ir) Simvastatin No Notes: Brennen oscar 3-16 (Same as: l 02:00: Zocor) Solomon 00 Insulin, 20200 No 10 unit, Memor ia Aspart, 3-16 Route: l Human 01:39: SUB-Q, Solomon ONCE, Dosing Weight 79.091, kg, Priority: NOW, Start date: 11/20/19 20:39:00 CDT, Stop date: 11/20/19 20:39:00 CDT Buspirone No Notes: Memori a 3-15 (Same As: l 22:00: BuSpar) Solomon 00 Amitiza No Notes: Memoria 3-15 Same as l 22:00: Amitiza (Do Not Crush) Non Formulary Acetaminoph No Notes: Do M emoria en 325 MG / 3-15 not exceed l Hydrocodone 18:53: 4gm/day of Solomon Bitartrate 00 acetaminop 10 MG Oral hen. Tablet (Same as: [[place] 10/325] 325/10) Albuterol No Notes: Memori a 0.833 MG/ML 3-15 (Same as: l / 18:49: Duoneb) Coy Ipratropium 00 [place] 0.167 MG/ML Inhalant Solution Tylenol No Notes: Do Memor ia 3-15 not exceed l 18:20: 4 gm/day. Solomon (Same as: Tylenol) Labetalol No Notes: Memori a 3-15 (Same as: l 17:11: Normodyne, Coy 00 Trandate) Push over 2 minutes Give bolus over 2-3 minutes. heparin No 5,000 Memoria 3-15 unit, l 14:23: Route: Coy 00 SUB-Q, Q8H-06, Dosing Weight 79.091, kg, Priority: STAT, Start date: 11/20/19 9:23:00 CDT, Duration: 30 day, Stop date: 12/20/19 6:00:00 CDT Lexapro 2020-0 No 10 mg, Memoria 315 Route: PO, l 14:15: Drug form: Coy 00 TAB, Daily, Dosing Weight 79.091, kg, Priority: STAT, Start date: 11/20/19 9:15:00 CDT, Duration: 30 day, Stop date: 12/20/19 9:00:00 CDT Furosemide No Notes: Memor ia 3-15 (Same as: l 14:00: Lasix) Solomon 00 May cause GI upset. Give with food or milk. Losartan No Notes: Memoria 3-15 (Same as: l 14:00: Cozaar) Coy 00 Humalog No Notes: Memoria 3-15 (Same as: l 08:52: Humalog) Coy 00 Roll in palms of hands gently; Do not shake vigorously . WASTE: F/P - Black; E - Municipal Trash Bin Stable for 28 days at room temperatur e. Expires in days from ____Date Dextrose 2019-0 No 50 mL, Memoria 50% in 11-19 Route: l Water IV 08:52: IVP, Start Her marmolejo 00 date: 11/20/19 3:52:00 CDT, Duration: 30 day, Stop date: 12/20/19 3:51:00 CDT, PRN Blood Glucose Results, 0 glucagon No 1 mg, Memoria 11-19 Route: l 08:52: INJ, Drug form: PDR/INJ, PRN, PRN Blood Glucose Results, Start date: 11/20/19 3:52:00 CDT, Duration: 30 day, Stop date: 12/20/19 3:51:00 CDT, 0 Humalog 2019-0 No Notes: Memoria 3-15 (Same as: l 08:51: Humalog) Solomon 00 Roll in palms of hands gently; Do not shake vigorously . WASTE: F/P - Black; E - Municipal Trash Bin Stable for 28 days at room temperatur e. Expires in days from ____Date Labetalol 0 No Notes: Memori a 3-15 (Same as: l 06:25: Normodyne, Trandate) Push over 2 minutes Give bolus over 2-3 minutes. Hydralazine No Notes: Brennen oscar 3-15 (Same as: l 03:35: Apresoline ) Push over 5 minutes Furosemide No Notes: Memor ia 3-14 (Same as: l 23:33: Lasix) Losartan No Notes: Memoria 3-14 (Same as: l 23:33: Cozaar) POLYETHYLEN No Notes: Brennen oscar E GLYCOL 3-14 Dissolve l 3350 14:00: in 8 oz of water or juice. (Same as: Miralax) Aspirin No Notes: Memoria 3-14 Take with l 14:00: food. phenol No Notes: Memoria 3-14 Chlorasept l 02:54: ic [place] (Same as: Chlorasept ic, Sore Throat [place]) WASTE: F/P - Black; E - Municipal Trash Bin Famotidine No Notes: Memor ia 3-14 (Same as: [...] e. Expires in days from ____Date Dextrose 2020-0 No 50 mL, Memoria 50% in 3-14 Route: l Water IV 01:53: IVP, Start Her marmolejo 00 date: 11/18/19 20:53:00 CDT, Duration: 30 day, Stop date: 12/18/19 20:52:00 CDT, PRN Blood Glucose Results, 0 Humalog 2020-0 No Notes: Memoria 3-14 (Same as: l 01:52: Humalog) Coy 00 Roll in palms of hands gently; Do not shake vigorously . WASTE: F/P - Black; E - Municipal Trash Bin Stable for 28 days at room temperatur e. Expires in days from ____Date Lasix 2020-0 No Notes: Memoria 3-13 (Same as: l 22:49: Lasix) Coy MEDICATION WASTE Product Size: 40 mg Product Wasted: ___ mg Losartan 2020- No Notes: Memoria 3-13 (Same as: l 22:49: Cozaar) Coy 00 ceFAZolin + 2019- No Notes: Brennen oscar sterile 3-13 (Same As: l water 20 mL 21:00: Ancef, Herm mary Kefzol) MEDICATION WASTE Product Size: 1000 mg Product Wasted: ___ mg Zofran 2019-0 No Notes: Memoria 3-13 (Same as: l 19:19: Zofran) Coy MEDICATION WASTE Product Size: 4 mg Product Wasted: ___ mg Albuterol 2020- No Notes: Memori a 0.833 MG/ML 3-13 (Same as: l / 17:26: Duoneb) Solomon Ipratropium 00 [place] 0.167 MG/ML Inhalant Solution Saline 2019- No Notes: Memoria Flush 0.9% 3-13 (Same as: l 17:26: BD Solomon Posiflush) Potassium 2019-0 No Notes: Memori a Chloride 3-13 (Same as: l 17:26: KCL) Coy 00 Infuse no faster than 10 mEq/hr if given peripheral ly. sodium 2019- No Notes: Memoria phosphate 3-13 Infuse l 17:26: over 4 Solomon 00 hour. Do not infuse phosphorou s concurrent ly in the same line as TPN or IVF that contains calcium. For double lumen central lines, phosphorou s may be infused in a separate lumen from TPN. potassium 2019- No Notes: Memori a phosphate 3-13 (Same as: l 17:26: K Coy 00 Phosphate. ) Do not infuse phosphorou s concurrent ly in the same line as TPN or IVF that contains calcium. For double lumen central lines, phosphorou s may be infused in a separate lumen from TPN. 1 mMol phoshate has 1.47 mEq potassium Infuse over 4 hours potassium 2019-0 No Notes: Memori a phosphate-s 3-13 (Same as: l odium 17:26: Phos-NaK) Solomon phosphate 00 Each 1.5 250 mg-280 gm pkt has mg-160 mg 250mg oral powder phosphorou for s. Mix reconstitut w/2.5oz ion water and stir. Magnesium 2019-0 No Notes: Memori a Sulfate 3-13 WASTE: F/P l 17:26: - Sink; E Solomon 00 - Municipal Trash Bin Magnesium 2019-0 No Notes: Memori a Oxide 3-13 (Same as: l 17:26: Mag-Ox Solomon 00 400) Magnesium oxide 758ee=131m g elemental magnesium Dose=____m g magnesium oxide (___mg elemental magnesium) Calcium 2019- No Notes: Memoria Gluconate 3-13 WASTE: F/P l 17:26: - Sink; E Solomon - Municipal Trash Bin Calcium 2019-0 No Notes: Memoria Carbonate 3-13 (Same As: l 500 MG 17:26: Tums) Coy Chewable 00 Calcium Tablet Carbonate 500 mg = 200 mg elemental calcium Dose = mg calcium carbonate ( mg elemental calcium) Acetaminoph 2019-0 No Notes: Do M emoria en 3-13 not exceed l 17:00: 4 gm/day. Solomon 00 (Same as: Tylenol) gabapentin 2019-0 No Notes: Memor ia 3-13 (Same as: l 16:39: Neurontin) Oxycodone 2019-0 No Notes: Memori a Hydrochlori 3-13 (Same as: l de 5 MG 16:39: [...] Hydromorpho No 0.5 mg, Mem oria ne 11-17 Route: l 16:24: IVP, ONCE, Dosing Weight 79.091, kg, Priority: STAT, Start date: 11/18/19 11:24:00 CDT, Stop date: 11/18/19 11:24:00 CDT Nicardipine No Notes: Brennen oscar 3-13 Same as: l 16:20: Cardene Concentrat ion: (0.2 mg /1 ml ) ondansetron No Route: IV, Memoria (ANES) 3-13 Drug form: l 16:13: INJ, ONCE, Stop date: 11/18/19 11:13:00 CDT Nicardipine No Notes: Brennen oscar 3-13 Same as: l 16:12: Cardene Concentrat ion: (0.2 mg /1 ml ) Acetaminoph No Notes: Brennen oscar en 3-13 Infuse l 16:09: over 15 minutes Do not exceed 4gm/day of acetaminop hen MEDICATION WASTE Product Size: 1000 mg Product Wasted: ___ mg calcium No Route: IV, Brennen oscar chloride 3-13 Drug form: l (ANES) 15:52: INJ, ONCE, Keisha Stop date: 11/18/19 10:52:00 CDT protamine 2019-0 No Route: IV, Me moria (ANES) 10 3-13 Drug form: l mg 15:17: INJ, Start date: 11/18/19 10:17:00 CDT, Stop date: 11/18/19 11:17:00 CDT heparin 2020-0 No Route: IV, Brennen oscar (ANES) 3-13 [...] ONCE, Stop date: 11/18/19 9:05:00 CDT propofol 2019-0 No Route: IV, Mem oria (ANES) 3-13 Drug form: l 14:05: INJ, ONCE, Stop date: 11/18/19 9:05:00 CDT rocuronium 2019-0 No Route: IV, M emoria (ANES) 3-13 Drug form: l 14:05: INJ, ONCE, Stop date: 11/18/19 9:05:00 CDT ceFAZolin 2019-0 No Route: IV, Me moria (ANES) 3-13 Drug form: l 14:05: INJ, ONCE, Stop date: 11/18/19 9:05:00 CDT sodium 2019-0 No Route: IV, Memor ia chloride 3-13 Drug form: l (ANES) 19 13:27: INJ, Start He rmann + 00 date: remifentani 11/18/19 l (ANES) 1 8:27:00 mg CDT, Stop date: 11/18/19 9:27:00 CDT Isolyte S 2020-0 No Route: IV, Sc moria PH 7.4 3-13 Total l (ANES) 1000 12:45: Volume: Her marmolejo mL 00 1,000, Start date: 11/18/19 7:45:00 CDT, Stop date: 11/18/19 8:45:00 CDT Metoprolol 2019-0 No Notes: Memor ia 3-13 (Same as: l 11:36: Lopressor) Coy 00 Push over 2 minutes Sodium 2020-0 No 250 mL, Memoria Chloride 3-13 Rate: To l 0.9% 11:36: prime line Solomon (titrate) 00 and flush 250 mL remaining blood products., Dosing Weight 81.023, kg, Route: IV, Total Volume: 250, Start Date: 11/18/19 6:36:00 CDT, Duration: 1 day, Stop date: 11/19/19 6:35:00 CDT, Replace Every: 24 hr, 0 Januvia 2020-0 Yes PO, Daily, Brennen oscar 3-09 unknown l 21:02: dose, 0 Solomon 00 Refill(s) Sodium 2020-0 No 250 mL, Memoria Chloride - Rate: To l 0.9% 20:03: prime line Solomon (titrate) 00 and flush 250 mL remaining blood products., Dosing Weight 81.023, kg, Route: IV, Total Volume: 250, Start Date: 11/14/19 15:03:00 CDT, Duration: 1 day, Stop date: 11/15/19 15:02:00 CDT, Replace Every: 24 hr, 0 Hydrochloro 2020-0 Yes 1 tab, PO, Memoria thiazide 25 3-09 Daily, # l MG / 18:03: 30 tab, 0 Solomon Losartan 00 Refill(s) Potassium 100 MG Oral Tablet Albuterol 2020-0 Yes 3 mL, Memoria 0.833 MG/ML 3-09 INHALATION l / 18:03: , Q6H, PRN Coy Ipratropium 00 Wheezing, [place] # 30 ea, 1 0.167 MG/ML Refill(s) Inhalant Solution Fluticasone 2020-0 Yes NASAL, Brennen oscar propionate 3-09 Daily, 0 l 0.05 18:03: Refill(s) Coy MG/ACTUAT 00 Metered Dose Nasal [place] [Flonase] meloxicam 2020-0 Yes 15 mg = 1 Mem oria 15 mg oral 3-09 tab, PO, l tablet 18:03: Daily, # Coy 00 30 tab, 0 Refill(s) busPIRone 2020-0 Yes 10 mg = 1 Mem oria 10 mg oral 3-09 tab, PO, l tablet 18:03: BID, 0 Solomon 00 Refill(s) Esomeprazol 2020-0 Yes 40 mg [...] microgram l Oral 18:03: = 1 cap, Coy Capsule 00 PO, BID, 0 [Amitiza] Refill(s) magnesium 2020-0 No 400 mg = 1 Me moria oxide 400 3-09 tab, PO, l mg oral 18:03: Daily, # Andrei n tablet 00 30 tab, 1 Refill(s) pantoprazol 2020-0 Yes 40 mg = 1 M emoria e 40 mg 3-09 tab, PO, l oral 18:03: Daily, # Coy enteric 00 30 tab, 1 coated Refill(s) tablet montelukast 2020-0 Yes 10 mg = 1 M emoria 10 mg oral 3-09 tab, PO, l tablet 18:03: Bedtime, # Keisha nn 00 30 tab, 0 Refill(s) plecanatide 2020-0 Yes 3 mg = 1 Me moria 3 MG Oral 3-09 tab, PO, l Tablet 18:03: Daily, 0 Solomon [Trulance] 00 Refill(s) BusPIRone BusPIRone Yes Tawana [address] [facility] HCl HCl [facility] Vital Signs Vital Name Observation Time Observation Value Comments Source Heart Rate 2019-11-21 15:32:00 [facility] Solomon Respitory Rate 2019-11-21 15:32:00 Memori al Coy Systolic (mm Hg) 2019-11-21 15:32:00 Brennen rial Solomon Diastolic (mm Hg) 2019-11-21 15:32:00 Mem orial Soloomn Heart Rate 2019-11-21 12:57:00 [facility] Coy Respitory Rate 2019-11-21 12:57:00 Memori al Solomon Systolic (mm Hg) 2019-11-21 12:57:00 Brennen rial Solomon Diastolic (mm Hg) 2019-11-21 12:57:00 Mem orial Solomon Heart Rate 2019-11-21 08:37:00 [facility] Solomon Respitory Rate 2019-11-21 08:37:00 Memori al Solomon Systolic (mm Hg) 2019-11-21 08:37:00 Brennen rial Coy Diastolic (mm Hg) 2019-11-21 08:37:00 Mem orial Coy Temperature Oral (F) 2019-11-18 12:00:00 98.3 F [facility] Solomon Weight 2019-11-18 11:45:00 [facility] Coy BMI Calculated 2019-11-18 11:45:00 Memori al Solomon Height 2019-11-14 19:59:00 162.56 cm [facility] Solomon Systolic (mm Hg) 2019-11-14 17:59:00 Brennen rial Coy Diastolic (mm Hg) 2019-11-14 17:59:00 Mem orial Coy Heart Rate 2019-11-14 17:59:00 Memorial Coy Height 2019-11-14 17:59:00 162.56 cm [facility] Solomon Weight 2019-11-14 17:59:00 [facility] Solomon BMI Calculated 2019-11-14 17:59:00 Memori al Coy Procedures Procedure Date / Time Performed Performing Clinician Reed pham Appendectomy [facility] Coy Cataract extraction [facility] Gallbladder operation [facility] ermann Hysterectomy [facility] Solomon Knee [facility] Coy replacement<sup>1</sup> Lumbar laminectomy and [facility] Coy excision of intradural spinal lesion Rotator cuff repair [facility] Encounters Start End Encounter Admission Attending Care Care Encounter Source Date/Time Date/Time Type Type Clinicians Facility Department ID 2021-01-12 Outpatient TAMMY [facility] [id number] [place] 03:27:09 EJOSH [facility] 2019-11-18 Inpatient [facility] [id number] [address] W 06:22:00 2020-11-13 2020-11-13 Outpatient ROYCE MAO [facility] [id number] [place] 00:00:00 00:00:[address] 2020-11-09 2020-11-09 Orders Doctor ROYCE [id number] 00:00:00 00:00:00 Only Unassigned, AVA [id number] [place] [facility] [id number] 2020-10-05 2020-10-05 [facility] [id number] 00:00:00 00:00:00 [facility] [id number] Surgical [id number] Specialti [id number] es [id number] [place] 2020-09-27 2020-09-27 [facility] [id number] 08:21:38 23:59:00 Encounter [facility] [id number] Surgical [id number] Specialti [id number] es 809 [place] 2020-09-27 2020-09-27 Office [facility] [id number] 07:50:24 08:32:23 Visit [facility]ri[facility] [id number] Surgical [id number] Specialti [id number] es 198 [place] 2020-09-24 2020-09-24 Orders Doctor ROYCE [id number] 00:00:00 00:00:00 Only UnassignedAVA 350.1.13.10 [place] [facility] 4.2.7.2.686 [id number] 2020-07-23 2020-07-23 Outpatient Maniar, [facility] [id number] 14:00:00 14:00:00 Gilmer Hurst 2019-12-29 2019-12-29 [facility] [id number] [facility] 09:49:00 09:49:00 [facility] Outpat[facility] ent Clinics 2019-12-27 2019-12-27 [facility] [id number] [facility] 09:02:00 09:02:00 [facility] Medicine Outpati ent Clinics 2019-12-23 2019-12-24 Outpatient [facility] [id number] 15:41:52 23:59:59 02 2019-12-14 2019-12-14 [facility] [id number] [facility] [address] 14:36:00 14:36:00 [facility] Medicine Outpati ent Clinics 2019-11-18 2019-11-21 Outpatient Chika, [facility] [id number] 06:22:00 13:46:00 Eric I 00 2019-11-14 2019-11-14 Outpatient Maniar, [facility] [id number] 13:00:00 23:59:59 Gilmer H 03 2019-11-14 2019-11-14 Outpatient Maniar, [facility] [id number] 11:00:00 23:59:59 Gilmer H 04 2019-11-08 2019-11-08 [facility] [id number] [facility] 09:58:00 09:58:00 [facility] Medicine Outpati ent Clinics 2019-11-08 2019-11-08 [facility] [id number] [facility] 09:56:00 09:56:00 [facility] Medicine Outpati ent Clinics 2019-10-24 2019-10-24 [facility] [id number] [address] 21:19:00 21:19:00 [facility] Medicine Outpati ent Clinics 2019-10-24 2019-10-24 [facility] [id number] 21:06:00 21:06:00 [facility] Medicine Outpati ent Clinics 2019-10-24 2019-10-24 [facility] [id number] 09:30:00 09:30:00 t [facility] Medicine Outpati ent Clinics 2019-09-13 2019-09-13 [facility] [id number] [address] 13:20:00 13:20:00 t [facility] Medicine l Medicine Outpati ent Clinics 2019-08-26 2019-08-26 [facility] [id number] [facility] 08:45:00 08:45:00 t [facility] Medicine l Medicine Outpati ent Clinics 2019-08-22 2019-08-22 [facility] [id number] [facility] 01:08:00 01:08:00 t [facility] Medicine l Medicine Outpati ent Clinics 2019-08-17 2019-08-17 [facility] [id number] 09:51:00 09:51:00 t [facility] Medicine Medicine Outpati ent Clinics 2019-08-16 2019-08-16 [facility] [id number] 13:20:00 13:20:00 t [facility] Medicine Medicine Outpati ent Clinics 2019-07-21 2019-07-21 [facility] [id number] 14:47:00 14:47:00 t [facility] Medicine Medicine Outpati ent Clinics 2019-07-15 2019-07-15 [facility] [id number] 10:09:00 10:09:00 t [facility] Medicine Medicine Outpati ent Clinics 2019-07-15 2019-07-15 [facility] [id number] 08:40:00 08:40:00 t [facility] Medicine l Medicine Outpati ent Clinics 2019-07-11 2019-07-11 [facility] [id number] 13:46:00 13:46:00 t [facility] Medicine l Medicine Outpati ent Clinics 2019-06-28 2019-06-28 [facility] [id number] 02:54:00 02:54:[address] [facility] Medicine Outpati ent Clinics 2019-06-24 2019-06-24 [facility] [id number] 09:00:00 09:00:[address] [facility] Medicine Outpati ent Clinics 2019-06-23 2019-06-23 [facility] [id number] 15:00:00 15:00:[address] [facility] Medicine Outpati ent Clinics 2019-05-30 2019-05-30 [facility] [id number] 15:13:00 15:13:[address] [facility] Medicine Outpati ent Clinics 2019-05-05 2019-05-05 [facility] [id number] 15:33:00 15:33:[address] [facility] Medicine Outpati ent Clinics 2019-04-28 2019-04-28 [facility] [id number] 09:02:00 09:02:[address] [facility] Medicine Outpati ent Clinics 2019-04-26 2019-04-26 [facility] [id number] 13:43:00 13:43:[address] [facility] Medicine Outpati ent Clinics 2019-04-25 2019-04-25 [facility] [id number] 22:56:00 22:56:[address] [facility] Medicine Outpati ent Clinics 2019-04-24 2019-04-24 [facility] [id number] 11:41:00 11:41:[address] [facility] Medicine Outpati ent Clinics 2019-04-15 2019-04-15 [facility] [id number] 09:07:00 09:07:[address] [facility] Medicine Outpati ent Clinics 2019-04-15 2019-04-15 [facility] [id number] 08:00:00 08:00:[address] [facility] Medicine Outpati ent Clinics 2019-03-24 2019-03-24 Outpatient Andreia Boswell [id number] [facility] 09:27:00 09[facility]27[facility]00 [facility] l Outpati ent Clinics 2019-03-16 2019-03-16 [facility] [id number] 09:16:00 09:16:[address] [facility] Medicine Outpati ent Clinics 2019-02-22 2019-02-22 [facility] [id number] 09:03:00 09:03:[address] [facility] Medicine Outpati ent Clinics 2019-02-18 2019-02-18 [facility] [id number] 18:38:00 18:38:[address] [facility] Medicine Outpati ent Clinics 2019-02-18 2019-02-18 [facility] [id number] 15:06:00 15:06:[address] [facility] Medicine Outpati ent Clinics 2019-02-16 2019-02-16 [facility] [id number] 16:06:00 16:06:00 [facility] Medicine Outpati ent Clinics 2019-02-15 2019-02-15 [facility] [id number] 15:20:00 15:20:00 [facility] Medicine Outpati ent Clinics 2018-04-28 2018-04-29 Outpatient MHMISCHER MHMISCHER [id number] 09:28:00 23:59:59 01 2018-04-07 2018-04-08 Outpatient MHMISCHER MHMISCHER [id number] 14:39:00 23:59:59 00 Results Test Description Test Time Test Comments Results Result [facility] e Comments - XR HIP W/PEL 2020-12-14 UNI 2+V LT 10:05:00 [facility] 1965 Sex: F Patient Name: ARI GODOY Unit No: [id number] EXAMS: CPT CODE: [id number] XR HIP W/[place] UNI 2+[place] 7[address]91 AP pelvis with frog-leg view left hip LOCATION: T18 INDICATION: Pain Postsurgical changes L5-S1. Bony alignment is normal. No fracture, dislocation , osteolytic or osteoblastic lesions are identified. Soft tissues unremarkable. Probable chronic irregularity greater trochanter left hip. IMPRESSION: No acute findings. at 1005 Reported and signed by: Royce Morse MD CC: Francisco Andrea MD Technologist: Archana Marley, RT(R) Transcrpt Date/Tm/Trnsp: 12/14/2020 (1005) Lorri Orig Print D/T: S: 12/14/2020 (1009) [facility] NAME: ARI GODOY [id number] [facility] [address] PHYS: [place] [address] : 1965 AGE: 55 SEX: F LOC: ZAdryanZRAD PHONE #: [phone] EXAM DATE: 12/14/2020 STATUS: REG CLI FAX #: [phone] RADIOLOGY NO: PAGE 1 Signed Report CHEM PANEL 2019-11-21 215 [facility] 09:56:00 [facility] CHEM PANEL 2019-11-21 15 [facility] 09:56:00 [facility] CHEM PANEL 2019-11-21 0.50 [facility] 09:56:00 [facility] CHEM PANEL 2019-11-21 137 [facility] 09:56:00 [facility] CHEM PANEL 2019-11-21 4.5 [facility] 09:56:00 [facility] CHEM PANEL 2019-11-21 102 [facility] 09:56:00 [facility] CHEM PANEL 2019-11-21 30 [facility] 09:56:00 [facility] CHEM PANEL 2019-11-21 9.3 [facility] 09:56:00 [facility] CHEM PANEL 2019-11-21 9.5 [facility] 09:56:00 [facility] CHEM PANEL 2019-11-21 125 [facility] 09:56:00 [facility] HEMATOLOGY 2019-11-21 71.7 [facility] 09:56:00 [facility] HEMATOLOGY 2019-11-21 17.6 [facility] 09:56:00 [facility] HEMATOLOGY 2019-11-21 8.4 [facility] 09:56:00 [facility] HEMATOLOGY 2019-11-21 1.7 [facility] 09:56:00 [facility] HEMATOLOGY 2019-11-21 0.6 [facility] 09:56:00 [facility] HEMATOLOGY 2019-11-21 8.2 [facility] 09:56:00 [facility] HEMATOLOGY 2019-11-21 2.0 [facility] 09:56:00 [facility] HEMATOLOGY 2019-11-21 1.0 [facility] 09:56:00 [facility] HEMATOLOGY 2019-11-21 0.2 [facility] 09:56:00 [facility] HEMATOLOGY 2019-11-21 0.1 [facility] 09:56:00 [facility] HEMATOLOGY 2019-11-21 11.5 [facility] 09:56:00 [facility] HEMATOLOGY 2019-11-21 4.12 [facility] 09:56:00 [facility] HEMATOLOGY 2019-11-21 13.0 [facility] 09:56:00 [facility] HEMATOLOGY 2019-11-21 38.1 [facility] 09:56:00 [facility] HEMATOLOGY 2019-11-21 92.5 [facility] 09:56:00 [facility] HEMATOLOGY 2019-11-21 09:56:00 Test Item Value Reference Range Interpretation Comme nts MCH (test code = MCH) 31.6 pg 27.0-31.0 [facility] FfzgcwaWMCYDUWMZF1873-39-76 09:56:0034.2[facility] HermannHEMATOLOGY 2019-11-21 09:56:0013.3[facility] YeoiqnwQXBHXQABAN4450-62-41 09:56:39793Auhidoyw LomjdebMVBZDBBMEW9805-56-03 09:56:008.0[facility] HermannCHEM YPKUK5992-31-70 07:18:43766Kkkvkcsm HermannCHEM OGZDN4589-89-14 07:18:0018[facility] HermannCHEM VSEKB2816-15-98 07:18:000.60[facility]annCHEM LLSXC4672-19-93 07:18:38608 [facility]annCHEM JKOFC0021-03-32 07:18:004.2[facility] HermannCHEM PANEL 2019-11-20 07:18:08696Dehgfzwl HermannCHEM IZFNI9995-36-67 07:18:0028[facility] HermannCHEM HLYQO1207-69-30 07:18:008.8[facility] HermannCHEM TAJLZ8487-21-87 07:18:0011.2[facility] HermannCHEM HUZKH0185-79-97 07:18:17282Ycybjmje HermannCHEM ILYXD9738-47-73 07:18:001.8[facility] HermannCHEM AJKAO0597-86-83 07:18:003.2 [facility] YrdfuvoACWQQPROUG8577-60-60 07:18:0013.5[facility] HermannHEMATOLOGY 2019-11-20 07:18:003.98[facility] DotjmdnWFJINLUHAS3886-07-10 07:18:0012.2[facility] VhpnlbuGYKGNASVRX2184-98-45 07:18:0037.0[facility] NyhczpyTIQKNEHRZA0907-24-06 07:18:0093.0[facility] ZhulvfvFFWKRBFHKL8420-83-06 07:18:00 Test Item Value Reference Range Interpretation Comments MCH (test code = MCH) 30.7 pg 27.0-31.0 [facility] DooleuoVWCONUQFUW7642-67-34 07:18:0033.0[facility] HermannHEMATOLOGY 2019-11-20 07:18:0013.2[facility] ItigyjdBCILWOEGQS9954-69-43 07:18:45286Sahjrmmj NyamgolQHMFAGVZAP2424-09-76 07:18:008.1[facility] SwhmgucACWDQXBEVP1417-30-47 07:18:00Normal (11/20/19 2:18 AM)[facility] DozzeczIYSJUOCUZG6882-88-00 07:18:00 Normal (11/20/19 2:18 AM)[facility] ThctkzcACVHMYNWOY6335-89-29 07:18:0083.0 [facility] CdnxbyoLPGMAVWGDN0639-83-08 07:18:0011.2[facility] HermannHEMATOLOGY 2019-11-20 07:18:004.4[facility] MgvuvurLUNSGUCIDV0021-30-05 07:18:001.1[facility] QjyaqiqGUGBRYILNS7626-32-92 07:18:000.3[facility] VqppjmqSDEQKVPKYX0857-00-96 07:18:0011.2[facility] SxizqjzWQINHPPASI2450-35-66 07:18:001.5[facility] Coy JRJBWQIOYO1886-11-89 07:18:000.6[facility] XncbyacMQCLBLSRKK6136-40-83 07:18:000.1 [facility] RsuajuzVLMQPSPAEY3249-08-56 07:18:000.0[facility] HermannPARATHYROID ADCQAYQ8052-89-33 07:18:001.07[facility] HermannPARATHYROID AYRMGSG2297-36-30 07:18:001.09[facility] HermannCHEM NYMMN3846-34-23 07:06:004.0[facility] HermannCHEM PLVPZ8797-59-66 07:06:001.7[facility] HermannCHEM KADCP9859-65-60 07:06:34630 [facility] HermannCHEM TSEDF5379-01-55 07:06:0013[facility] HermannCHEM PANEL 2019-11-19 07:06:000.50[facility] HermannCHEM MJVME3676-63-49 07:06:31167Eyetjiab HermannCHEM XMYXT1394-43-95 07:06:003.8[facility] HermannCHEM FMBQT4963-06-27 07:06:62839Skbkgnhm HermannCHEM SCBLN3987-34-04 07:06:0029[facility] HermannCHEM NKVBR7602-43-61 07:06:0011.8[facility] HermannCHEM STWLP2524-85-84 07:06:008.5 [facility]annCHEM QJQOE4519-04-94 07:06:00 Test Item Value Reference Range Interpretation Comments B/C Ratio (test code = B/C Ratio) 26 1 6-25 [facility] HermannCHEM SSIGX6293-51-11 07:06:006.9[facility] HermannCHEM PANEL 2019-11-19 07:06:003.1[facility] HermannCHEM LKRHW5152-82-64 07:06:003.8[facility] HermannCHEM QOPGI2690-56-86 07:06:00 Test Item Value Reference Range Interpretation Comments A/G Ratio (test code = A/G Ratio) 0.8 1 0.7-1.6 [facility] HermannCHEM TVNZQ5153-90-44 07:06:40425Ilaxjksw HermannCHEM PANEL 2019-11-19 07:06:29728Ysyuafom HermannCHEM TYHCY2090-84-20 07:06:37372Jntlmfeg HermannCHEM CDTHO6222-23-81 07:06:000.4[facility] HermannCHEM FLDYS3753-57-11 07:06:13057Tbamlyyb XkoyueiXFFBIDFBZS7466-61-88 07:06:009.8[facility] SDRMLXEBDB3516-70-78 07:06:003.94[facility] XbwzihgZIHNWWDSGW4643-70-22 07:06:00 12.4[facility] ViljbqvVAYPKQBUQA4847-52-60 07:06:0036.6[facility] HermannHEMATOLOGY 2019-11-19 07:06:0092.9[facility] QjjdvtfSVRHGEGKOU3192-18-87 07:06:00 Test Item Value Reference Range Interpretation Comments MCH (test code = MCH) 31.4 pg 27.0-31.0 [facility] RyuqfbvZLOSGXFZGC4222-73-02 07:06:0033.8[facility] HermannHEMATOLOGY 2019-11-19 07:06:0013.1[facility] IboxyzxSJGNMQZDJX2323-14-62 07:06:66410Ufrlxngx UvkesujKHEDYLRYLP6135-91-71 07:06:008.0[facility] PulncjwXVPKNMRLAF4594-64-11 07:06:00 Test Item Value Reference Range Interpretation Comments PTT (test code = PTT) 31.4 s 22.9-35.8 [facility] JjsaltbZSEEJQOIRI4129-85-52 07:06:00 Test Item Value Reference Range Interpretation Comments PT (test code = PT) 13.7 s 12.0-14.7 [facility] HpcdnqhCGCNSDWKWF1369-61-29 07:06:00 Test Item Value Reference Range Interpretation Comments INR (test code = INR) 1.05 1 0.85-1.17 [facility] HcxxmrgUAKSUVENAD8996-32-89 07:06:0068.3[facility] HermannHEMATOLOGY 2019-11-19 07:06:0021.7[facility] SwrthafPJEQBRRUVO2105-02-87 07:06:007.7[facility] OczwhnvVYFCKGHPTE7691-30-05 07:06:001.7[facility] UjuxfwdCNUKUHMHYB0165-50-33 07:06:000.6[facility] MsswsfpVNWIUDWSZH3055-82-01 07:06:006.7[facility] PEZIADBMGW5971-02-43 07:06:002.1[facility] AljmkpkGUODJFWGIZ1595-38-86 07:06:000.8 [facility] TqnvqhcTUTLKAPIKH2151-63-07 07:06:000.2[facility] HermannHEMATOLOGY 2019-11-19 07:06:000.1[facility] HermannCHEM KYTOV6086-32-07 16:12:001.9[facility] HermannCHEM OAQBE3229-55-76 16:12:004.8[facility] ZydpwqvAMROCSKUXR3779-43-75 16:12:00 Test Item Value Reference Range Interpretation Comments PT (test code = PT) 13.9 s 12.0-14.7 [facility] VcvvhmpVEKJNOHYRM6038-27-92 16:12:00 Test Item Value Reference Range Interpretation Comments INR (test code = INR) 1.07 1 0.85-1.17 [facility] RwdtbbmFFQJQOFOUW4208-46-73 16:12:00 Test Item Value Reference Range Interpretation Comments PTT (test code = PTT) 28.3 s 22.9-35.8 [facility] IizutcjHETWZGSHGD6217-33-52 16:12:88390Cnuzzxil WscdallJSIYWX2216-68-66 16:12:0066[facility] OztucgqBTBKWQ7748-78-94 16:12:85355Smlvtuoe HermannLIPIDS 2019-11-18 16:12:0054[facility] XaikqaaDNWCJT8833-86-14 16:12:00 Test Item Value Reference Range Interpretation Comments CHD Risk (test code = CHD Risk) 2.48 1 3.90-5.80 [facility] TcaaqbnTFNIVB2854-85-01 16:12:0067[facility] OzlrvwbHGIUTG0704-38-11 16:12:00 Test Item Value Reference Range Interpretation Comments VLDL (test code = VLDL) 13 1 [facility] HermannPARATHYROID ADFJWZD5049-71-04 16:12:001.18[facility] PARATHYROID PURDRUL0357-22-38 16:12:001.22[facility] VokwakpLIWSVBUVARFU9630-14-95 12:16:03953Xgnfblxs KrolssyYCWZEWZALOYJ2997-65-01 12:16:004.9[facility] JZPYGJMGUJKI0719-08-85 12:16:35409Zfrnrnih VoqfmlsZFDXXVVSCUVS3393-27-83 12:16:0031[facility] RthmsoeWBLWNVXGUBCO8924-37-85 12:16:0024[facility] ORSFABXRNMHA2256-65-23 12:16:000.5[facility] VikicexBPFQZKONYWVE6863-69-26 12:16:0079[facility] RgpqyqbPEGDDNPJUHVL5042-99-51 12:16:001.22[facility] TNQWRLVUEKLB9715-95-56 12:16:0013.9[facility] AtotdexJQSIUSFBXMOZ3434-47-42 12:16:0041.0[facility] JrmntdiOGTPBPDUEEJF9547-23-42 12:16:0012.0[facility] SBVVJJAYHAHA6070-56-15 12:16:00See Note *NA*(11/18/19 7:16 AM)[facility] BLOOD BANK VBCTTWZ9519-04-04 11:55:00Negative (11/18/19 6:55 AM)[facility] BACTERIAL - DQKHGBXG7324-54-93 20:23:00Negative (11/14/19 3:23 PM)[facility] BLOOD BANK AKLWBIF2284-07-05 20:12:00Negative (11/14/19 3:12 PM)[facility] YHFGJ1055-42-05 20:12:007.5[facility] HermannCHEM TFMLS1407-07-11 20:12:003.5 [facility]annCHEM THXOK8569-72-16 20:12:0019[facility] HermannCHEM PANEL 2019-11-14 20:12:0015[facility] HermannCHEM ZTXHJ0994-97-95 20:12:0074[facility] HermannCHEM LIJNQ2894-82-90 20:12:000.2[facility] HermannCHEM MLVKW2746-04-62 20:12:00 Test Item Value Reference Range Interpretation Comments B/C Ratio (test code = B/C Ratio) 17 1 6-25 [facility] UPWGM6051-09-75 20:12:004.0[facility] HermannCHEM PANEL 2019-11-14 20:12:00 Test Item Value Reference Range Interpretation Comments A/G Ratio (test code = A/G Ratio) 0.9 1 0.7-1.6 [facility]neOvwnbkyMBMUYEHYOT8419-45-83 20:12:00 Test Item Value Reference Range Interpretation Comments PT (test code = PT) 12.6 s 12.0-14.7 [facility]nytmmvDKKDRVGNJA7904-77-67 20:12:00 Test Item Value Reference Range Interpretation Comments INR (test code = INR) 0.94 1 0.85-1.17 [facility]
[2021-02-09] MEDS ORDERED: ONDANSETRON 4 MG (ODT) TAB ONE (18:38)
[2021-02-09] MEDS ORDERED: LIDOCAINE 4% PATCH ONE (18:38)
[2021-02-09] MEDS ORDERED: FENTANYL CITR 100 MCG/2 ML ONE (18:38)
--- NOTE | 2021-02-09 19:01 | ER ---
Nurse's Notes [facility] Name: Charlotte Ruvalcaba Age: 55 yrs Sex: Female : 1965 Arrival Date: 02/09/2021 Time: 16:12 Bed 14 Private MD: Naseem Sanchez E Diagnosis: Other chronic pain;Low back pain Presentation: 02/09 16:26 Chief complaint: Patient states: "I had back surgery years ago but my back has been aa5 hurting worse since October when I fell on the ice". Pt c/o increased chronic lower back pain. Coronavirus screen: At this time, the client does not indicate any symptoms associated with coronavirus-19. Ebola Screen: Patient negative for fever greater than or equal to 101.5 degrees Fahrenheit, and additional compatible Ebola Virus Disease symptoms. Initial Sepsis Screen: Does the patient meet any 2 criteria? No. Patient's initial sepsis screen is negative. Does the patient have a suspected source of infection? No. Patient's initial sepsis screen is negative. Risk Assessment: Do you want to hurt yourself or someone else? Patient reports no desire to harm self or others. Onset of symptoms was October 2020. 16:26 Method Of Arrival: Wheelchair aa5 16:26 Acuity: RASHAD 3 aa5 Historical: - Allergies: 16:28 NKDA; aa5 - PMHx: 16:28 Asthma; breast cancer; chronic pain, sees pain doctor; COPD; Diabetes - IDDM; Gout; aa5 Hypertension; Hypothyroidism; - PSHx: 16:28 Hysterectomy; Appendectomy; Cholecystectomy; kidney stones; shoulder surgery; Knee aa5 surgery; back surgery; - Immunization history:: Adult Immunizations unknown. - Social history:: Smoking status: Patient denies any tobacco usage or history of. Screenin:16 Abuse screen: Denies threats or abuse. Nutritional screening: No deficits noted. vg1 Tuberculosis screening: No symptoms or risk factors identified. Fall Risk No fall in past 12 months (0 pts). No secondary diagnosis (0 pts). No IV (0 pts). Ambulatory Aid- Crutches/Cane/Walker (15 pts). Gait- Normal/Bed Rest/Wheelchair (0 pts) Mental Status- Oriented to own ability (0 pts). Total Stafford Fall Scale indicates No Risk (0-24 pts). Assessment: 17:15 General: Appears in no apparent distress. uncomfortable, Behavior is calm, cooperative. vg1 Pain: Complains of pain in Lower back and MAGALIE hips Pain currently is 10 out of 10 on a pain scale. Quality of pain is described as sharp, Noted to be grimacing, moaning. Neuro: Level of Consciousness is awake, alert, obeys commands, Oriented to person, place, time, situation. Cardiovascular: Patient's skin is warm and dry. Respiratory: Airway is patent Respiratory effort is even, unlabored. GI: No signs and/or symptoms were reported involving the gastrointestinal system. : No signs and/or symptoms were reported regarding the genitourinary system. EENT: No signs and/or symptoms were reported regarding the EENT system. Derm: Skin is intact, is healthy with good turgor. Musculoskeletal: Pt reports lower back pain that radiates to MAGALIE hips. 18:27 Reassessment: Patient appears in no apparent distress at this time. No changes from vg1 previously documented assessment. Patient and/or family updated on plan of care and expected duration. Pain level reassessed. Patient is alert, oriented x 3, equal unlabored respirations, skin warm/dry/pink. 19:31 Reassessment: Patient reports readiness for discharge; states relief for low back pain. lp1 Vital Signs: 16:26 BP 138 / 55; Pulse 88; Resp 18 S; Temp 97.0(TE); Pulse Ox 97% on R/A; Weight 89.81 kg aa5 (R); Height 5 ft. 4 in. (162.56 cm) (R); Pain 10/10; 17:16 BP 107 / 44; Pulse 83; Resp 16; Pulse Ox 97% on R/A; vg1 18:27 BP 110 / 48; Pulse 78; Resp 14; Pulse Ox 98% on R/A; vg1 16:26 Body Mass Index 33.99 (89.81 kg, 162.56 cm) aa5 ED Course: 16:12 Patient arrived in ED. mr 16:12 Naseem Sanchez MD is Private Physician. mr 16:26 Arm band placed on. aa5 16:27 Triage completed. aa5 16:48 Elma Velásquez, ALOK is Primary Nurse. vg1 16:56 Yoav Farfan NP is PHCP. pm1 16:56 Efren Puente MD is Attending Physician. pm1 17:17 Patient has correct armband on for positive identification. Bed in low position. Call vg1 light in reach. Side rails up X2. 19:30 No provider procedures requiring assistance completed. Patient did not have IV access lp1 during this emergency room visit. Administered Medications: 18:21 Drug: Ondansetron 4 mg Route: PO; vg1 19:33 Follow up: Response: No adverse reaction vg1 18:22 Drug: Lidoderm 5 % (700 mg/patch) 1 patches Route: Topical; Site: affected area; vg1 19:33 Follow up: Response: No adverse reaction vg1 18:25 Drug: fentaNYL (PF) 50 mcg Route: IM; Site: right deltoid; vg1 19:33 Follow up: Response: No adverse reaction vg1 Outcome: 19:00 Discharge ordered by MD. pm1 19:30 Discharged to home ambulatory, with friend. lp1 19:30 Condition: good 19:30 Discharge instructions given to patient, Instructed on discharge instructions, follow up and referral plans. Demonstrated understanding of instructions, follow-up care. 19:31 Patient left the ED. lp1 Signatures: Sherine Rock mr LaiLittle, RN RN aa5 Radha Diaz RN RN lp1 Yoav Farfan, LEAD INFRASTRUCTURE ARCHITECT LEAD INFRASTRUCTURE ARCHITECT pm1 Elma Velásquez, RN RN vg1 Corrections: (The following items were deleted from the chart) 16:29 16:26 BP 138 / 55; Pulse 88bpm; Resp 18bpm; Spontaneous; Pulse Ox 97% RA; Temp 97.0F aa5 Temporal; aa5
--- NOTE | 2021-02-09 19:01 | EDPHYS ---
Physician Documentation [facility] Name: Charlotte Ruvalcaba Age: 55 yrs Sex: Female : 1965 Arrival Date: 02/09/2021 Time: 16:12 Bed 14 Private MD: Naseem Sanchez E ED Physician Efren Puente HPI: 02/09 17:42 This 55 yrs old Black Female presents to ER via Wheelchair with complaints of Back Pain.pm1 17:42 The patient presents with pain that is chronic, with no known mechanism of injury. The pm1 symptoms are located in the coccyx area. Onset: The symptoms/episode began/occurred Chronic and became worse. The pain does not radiate. Associated signs and symptoms: Pertinent negatives: dysuria, fever, incontinence, numbness, tingling, urinary retention, weakness. The problem was sustained from a chronic condition. Modifying factors: The patient symptoms are alleviated by remaining still, the patient symptoms are aggravated by any movement. Severity of symptoms: in the emergency department the symptoms are actually worse. The patient has experienced similar episodes in the past, chronically. Historical: - Allergies: 16:28 NKDA; aa5 - PMHx: 16:28 Asthma; breast cancer; chronic pain, sees pain doctor; COPD; Diabetes - IDDM; Gout; aa5 Hypertension; Hypothyroidism; - PSHx: 16:28 Hysterectomy; Appendectomy; Cholecystectomy; kidney stones; shoulder surgery; Knee aa5 surgery; back surgery; - Immunization history:: Adult Immunizations unknown. - Social history:: Smoking status: Patient denies any tobacco usage or history of. ROS: 17:42 Constitutional: Negative for fever, chills, and weight loss. pm1 17:42 Cardiovascular: Negative for chest pain, palpitations, and edema, Respiratory: Negative for shortness of breath, cough, wheezing, and pleuritic chest pain, Abdomen/GI: Negative for abdominal pain, nausea, vomiting, diarrhea, and constipation. 17:42 : Negative for injury, bleeding, discharge, and swelling, MS/Extremity: Negative for injury and deformity, Skin: Negative for injury, rash, and discoloration, Neuro: Negative for headache, weakness, numbness, tingling, and seizure. 17:42 Back: Positive for pain with movement, of the sacrum, Negative for radiated pain. Exam: 17:42 Constitutional: This is a well developed, well nourished patient who is awake, alert, pm1 and in no acute distress. Head/Face: Normocephalic, atraumatic. Neck: Trachea midline, no thyromegaly or masses palpated, and no cervical lymphadenopathy. Supple, full range of motion without nuchal rigidity, or vertebral point tenderness. No Meningismus. 17:42 Skin: Warm, dry with normal turgor. Normal color with no rashes, no lesions, and no evidence of cellulitis. MS/ Extremity: Pulses equal, no cyanosis. Neurovascular intact. Full, normal range of motion. 17:42 Cardiovascular: Rate: normal, Rhythm: regular, Pulses: no pulse deficits are appreciated. 17:42 Respiratory: Exam negative for acute changes, respiratory distress, shortness of breath. 17:42 Abdomen/GI: Inspection: abdomen appears normal, Palpation: abdomen is soft and non-tender. 17:42 Back: pain, that is moderate, of the sacrum, Straight leg raises: right lower extremity illicits pain, at 15 degrees, left lower extremity illicits pain, at 15 degrees. 17:42 Neuro: Orientation: is normal, Mentation: is normal, Motor: moves all fours, strength is 5/5 in the dorsi and plantar flexion bialteral great toes, Sensation: is normal, no obvious gross deficits. Vital Signs: 16:26 BP 138 / 55; Pulse 88; Resp 18 S; Temp 97.0(TE); Pulse Ox 97% on R/A; Weight 89.81 kg aa5 (R); Height 5 ft. 4 in. (162.56 cm) (R); Pain 10/10; 17:16 BP 107 / 44; Pulse 83; Resp 16; Pulse Ox 97% on R/A; vg1 18:27 BP 110 / 48; Pulse 78; Resp 14; Pulse Ox 98% on R/A; vg1 16:26 Body Mass Index 33.99 (89.81 kg, 162.56 cm) aa5 MDM: 17:15 Patient medically screened. edilson 18:59 Data reviewed: vital signs. Data interpreted: Pulse oximetry: on room air is 98 %. pm1 Interpretation: normal. 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 18:59 ED course: pain 6/10 with medications given. Patient is pleased and is asking to go pm1 home now. Administered Medications: 18:21 Drug: Ondansetron 4 mg Route: PO; vg1 19:33 Follow up: Response: No adverse reaction vg1 18:22 Drug: Lidoderm 5 % (700 mg/patch) 1 patches Route: Topical; Site: affected area; vg1 19:33 Follow up: Response: No adverse reaction vg1 18:25 Drug: fentaNYL (PF) 50 mcg Route: IM; Site: right deltoid; vg1 19:33 Follow up: Response: No adverse reaction vg1 Disposition: 02/09/21 19:00 Discharged to Home. Impression: Other chronic pain, Low back pain. - Condition is Stable. - Discharge Instructions: Chronic Back Pain, Back Injury Prevention, [id number]. - Medication Reconciliation Form, Thank You Letter, Antibiotic Education, Prescription Opioid Use form. - Follow up: Emergency Department; When: As needed; Reason: Worsening of condition. Follow up: Private Physician; When: 2 - 3 days; Reason: Recheck today's complaints, Continuance of care, Re-evaluation by your physician. - Problem is new. - Symptoms have improved. Addendum: 02/12/2021 07:45 Co-signature as Attending Physician, Efren Puente MD I agree with the assessment and c lombardo plan of care. Signatures: Efren Puente MD MD cha Calderon, Audri, RN RN aa5 Radha Diaz RN RN lp1 Yoav Farfan NP PHYSICAL INSTRUCTOR pm1 Elma Velásquez, RN RN vg1 Corrections: (The following items were deleted from the chart) 02/09 19:31 19:00 02/09/2021 19:00 Discharged to Home. Impression: Other chronic pain; Low back lp1 pain. Condition is Stable. Forms are Medication Reconciliation Form, Thank You Letter, Antibiotic Education, Prescription Opioid Use. Follow up: Emergency Department; When: As needed; Reason: Worsening of condition. Follow up: Private Physician; When: 2 - 3 days; Reason: Recheck today's complaints, Continuance of care, Re-evaluation by your physician. Problem is new. Symptoms have improved. pm1
[2021-02-09 19:37] VITALS: TEMP 97
[2021-02-09 19:41] VITALS: BP 110/48; O2SAT 98
== END 2021-02-09 19:31 | disposition home or self-care (01) ==
LOC: ER 16:06
DX: G89.29 Other chronic pain (principal); I10 Essential (primary) hypertension; Z87.442 Personal history of urinary calculi
CPT/HCPCS: 96372; 99283; J3010

== ENCOUNTER 2021-04-02 22:08 | Emergency (ER) | payer OTHER ==
--- OUTSIDE RECORDS SUMMARY | 2021-04-02 22:11 | XMS REPORT | Continuity of Care Document ---
:1965 Author Organization [facility] t Address [address] [place] [address] Care Team Providers Name Role Phone Laura Peters MD Primary Care Physician JANNA Attending Clinician Unavailable Sherron CAMPA Attending Clinician Maryann Mao MD Attending Clinician Doctor Unassigned, Name Attending Clinician Unavailable Arnulfo BRAGA S Attending Clinician Zuleika BRINK, L Attending Clinician Payers Payer Name Policy Type Policy Number Effective Date Expiration Date Klarissa [place] [id number] 2016 MEDICAID 00:00:00 STAR+PLUS MEDICAIDMEDICA [id number] 2011 [place] [id number] 00:00:00 Spiritism /2010-PresentM edicaid CIGNA [id number] 2017 [place] MEDICARE/HEALT 00:00:00 Spiritism HSPRINGCIGNA MEDICARE [id number] MO Problems Condition Condition Condition Status Onset Resolution Last Treating Co mments Source Name Details Category Date Date Treatment Clinician Date Degenerati Degenerati Disease Active 2017-09 Natali rosales on of on of 09-15 Methodi interverte interverte 00:00: st bral disc bral disc 00 of of lumbosacra lumbosacra l region l region Uncontroll Uncontroll Problem Active [facility] ed type 2 ed type 2 Luke s - diabetes diabetes Memori a mellitus mellitus l with with Outpati hyperglyce hyperglyce en t [facility] Clinics Anxiety Anxiety Problem [facility] Asthma, Asthma, Problem Active [facility] unspecifie unspecifie Verenice kes - d asthma d asthma Memori a severity, severity, l unspecifie unspecifie Ou tpati d whether d whether ent complicate complicate Cl inics d, d, unspecifie unspecifie d whether d whether persistent persistent Diabetes Diabetes Problem [facility] Swelling Swelling Problem [facility]ics High blood High blood Problem Active [facility] pressure pressure [facility] Sinus Sinus Problem Active [facility] problem problem [facility]ics High High Problem Active [facility] cholestero cholestero Verenice kes - l l Memoria l [facility] Depression Depression Problem Active [facility] with with [facility] - anxiety anxiety Memoria l [facility] Acquired Acquired Problem Active [facility] hypothyroi hypothyroi Verenice kes - dism dism [facility] l [facility] Chronic Chronic Problem Active [facility] pain pain [facility] - syndrome syndrome Memori a l [facility] Polyarthra Polyarthra Problem Active [facility] lgia lgia [facility] Gastroesop Gastroesop Problem Active [...] urine odor Verenice kes - Memoria l [facility] Hoarseness Hoarseness Problem Active [facility] Hyperlipid Hyperlipid Problem Active [facility] emia, emia, [facility] - unspecifie unspecifie Me moria d d l hyperlipid hyperlipid Ou tpati emia type emia type ent Clinics Sore Sore Problem Active [facility] throat throat [facility] Non-intrac Non-intrac Problem Active [facility] table table [facility] - vomiting vomiting Memori a with with l nausea, nausea, Outpati unspecifie unspecifie en t d vomiting d vomiting Cl inics type type Chest Chest Problem Active [facility] tightness tightness [facility] - [facility] Exposure Exposure Problem Active [facility] to mold to mold [facility] Wheezing Wheezing Problem [facility] Shortness Shortness Problem Active [facility] of breath of breath [facility] - [facility] Itching Itching Problem Active [facility] Muscle Muscle Problem Active [facility] cramping cramping [facility] Right leg Right leg Problem Active [facility] pain pain [facility] Acute Acute Problem Active [facility] right-side right-side Verenice kes - d thoracic d thoracic Me moria back pain back pain l [facility] Low back Low back Problem Active [facility] pain pain [facility] Other Other Problem Active [facility] chronic chronic [facility] - pain pain Memoria l [facility] Lumbago Lumbago Problem Active [facility] with with [facility] - sciatica, sciatica, Brennen oscar right side right side l [facility] Status Status Problem Active [facility] post fall post fall [facility] - [facility] Dizziness Dizziness Problem [facility] Imbalance Imbalance Problem Active [facility] Difficulty Difficulty Problem Active [facility] sleeping sleeping [facility] Acute Acute Problem Active [facility] stress stress [facility] - reaction reaction Memori a l [facility] 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[facility] - both both Memoria carotid carotid l arteries arteries Outpat ent Clinics Stenosis Stenosis Problem Active [facility] of left of left [facility] - carotid carotid Memoria artery artery l [facility] [place] [facility] Clinics Status Status Problem Active [facility] post CVA post CVA [facility] Stenosis Stenosis Problem Active [facility] of right of right [facility] - carotid carotid Memoria artery artery l [facility] Allergies, Adverse Reactions, Alerts This patient has no known allergies or adverse reactions. Family History Family Member Diagnosis Comments Start Date Stop Date Source Natural mother COPD Jordon Hawkins [facility]odist Natural mother Hyperlipidemia [place] [facility] Natural mother Hypertension Jordon Garay Social History Social Habit Start Date Stop Date Quantity Comments Source History of tobacco Current smoker Rolando velazquez Spirit[facility] use Cigarettes smoked 2018-07-19 2018-07-19 Jordon Albertoist current (pack per 00:00:00 00:00:00 day) - Reported Tobacco use and 2018-07-19 2018-07-19 Never used Jordon Dockery ethodist exposure 00:00:00 00:00:00 Alcohol intake 2018-07-19 2018-07-19 Current [place] thodist 00:00:00 00:00:00 non-drinker of alcohol (finding) Sex [birth year] Jordon cerdaodist 00:00:00 00:00:00 Smoking Status Start Date Stop Date Source Former smoker 2018-07-19 00:00:00 2018-07-19 00:00:00 [place] [facility] Medications Ordered Filled Start Stop Current Ordering Indication Dosage Frequency Signature Comments Components Source Medication Medication Date Date Medication? Clinician (SIG) Name Name HYDROcodone 2017-09 Yes 1{tbl} [id number] Take 1 [place] -acetaminop - [id number] tablet by Methodi hen (NORCO) 15:45: 3D mouth 3 st 7.5-325 mg 51 (three) per tablet times a day. methocarbam 2017-09 Yes 750mg Q.29101794 Take 750 Ruvalcaba ol -14 [id number] mg by Methodi (ROBAXIN) 15:45: 3D mouth 3 st 500 MG 51 (three) tablet times a day. Takes 500 mg 1.5 TAB. (750 mg) gabapentin 2017-09 Yes 600mg QD Take 600 Rolando velazquez (GRALISE) 1-14 mg by Methodi 600 mg 15:45: mouth st tablet 51 daily. extended release 24 hr montelukast 2017-09 Yes 10mg QD Take 10 mg Jordon (SINGULAIR) -14 by mouth Meth bharati 10 mg 15:45: daily. st tablet 51 esomeprazol 2017-09 Yes 40mg QD Take 40 mg Ruval[place]aba e (NexIUM) 1-14 by mouth Metho di 40 MG 15:45: daily. st capsule 51 pantoprazol 2017-09 Yes 40mg QD Take 40 mg Ruval[place] e 1-14 by mouth Methodi (PROTONIX) 15:45: daily. st [...] QD Take 10 mg [place] (ZOCOR) 10 -14 by mouth Metho di MG tablet 15:45: nightly. st 51 estradiol 2017-09 Yes .5mg QD Take 0.5 [place] (ESTRACE) 1-14 mg by Methodi 0.5 MG 15:45: mouth st tablet 51 daily. tiZANidine 2017-09 Yes 2mg Q.5D Take 2 mg [place] (ZANAFLEX) -14 by mouth 2 Met hodi 2 MG [...] daily. Pure Magnesium albuterol 2017-09 Yes 1{puff} Q.[id number] Inhale 1 [place] (PROAIR 09-20 [id number] puff 3 Meth bharati HFA,PROVENT 15:45: 3D (three) st [place] 51 times a HFA,VENTOLI day as N HFA) 90 needed for mcg/actuati wheezing on inhaler or shortness of breath. meloxicam 2017-09 Yes 15mg QD Take 15 mg [place] (MOBIC) 15 14 by mouth Metho di mg tablet 15:45: daily. st 51 DULoxetine 2017-09 Yes 20mg QD Take 20 mg [place] (CYMBALTA) 14 by mouth Metho di 20 MG 15:45: daily. st capsule 51 methocarbam 2017-09 Yes 750mg Q8H Take 1 Betito irenen ol 09-15 tablet Methodi (ROBAXIN-75 00:00: ([address] 0) 750 MG 00 total) by tablet mouth every 8 (eight) hours as needed for muscle spasms for up to 40 doses. BusPIRone BusPIRone Yes Tawana [address] HCl HCl [facility] Procedures Procedure Date / Time Performed Performing Clinician Sourc e XR LUMBAR SPINE AP 2020-11-13 08:56:47 Royce Mao LATERAL FLEXION AND EXTENSION Plan of Care Planned Activity Planned Date Details Comments Source Future Scheduled 2021-04-07 INFLUENZA VACCINE Sandra kaur [facility] Test 00:00:00 [code = INFLUENZA VACCINE] Future Scheduled 2013 BREAST CANCER [place] [facility] Test 00:00:00 SCREENING [code = BREAST CANCER SCREENING] Future Scheduled 2013 COLONOSCOPY SCREENING Ho car[place] [facility] Test 00:00:00 [code = COLONOSCOPY SCREENING] Future Scheduled 1984 Screening for [place] [facility] Test 00:00:00 malignant neoplasm of cervix (procedure) [code = 955837700] Future Scheduled 1981 Hepatitis C screening [place] [facility] Test 00:00:00 (procedure) [code = 563976329] Future Scheduled 1975 COVID-19 VACCINE (1) Betitorobin lin [facility] Test 00:00:00 [code = COVID-19 VACCINE (1)] Future Scheduled 1973 DIABETES: RETINAL EYE [place] [facility] Test 00:00:00 EXAM [code = DIABETES: RETINAL EYE EXAM] Future Scheduled 1973 DIABETIC FOOT EXAM [place] [facility] Test 00:00:00 [code = DIABETIC FOOT EXAM] Future Scheduled 1973 URINE MICROALBUMIN [place] [facility] Test 00:00:00 [code = URINE MICROALBUMIN] Encounters Start End Encounter Admission Attending Care Care Encounter Source Date/Time Date/Time Type Type Clinicians Facility Department ID 2021-02-25 Outpatient [facility] [id number] [place] 10:35:57 Health 2021-01-12 Outpatient [facility] [id number] [place] 03:27:09 JOSH Pham 2019-11-18 Inpatient [facility] MED [id number] [facility] W 06:22:00 2021-03-26 2021-03-26 Orders LORENE Siu [facility] [id number] 00:00:00 00:00:00 Only Armond LUCERO [id number] MEDICAL 9.2.7.2.686 [address] [id number] 2021-02-27 2021-02-27 Office Zoltan [facility] [id number] 08:29:48 10:00:26 Visit Josh phamKENIA [id number] MEDICAL 9.2.7.2.686 [address] [address] [id number] 2020-11-13 2020-11-13 Outpatient ROYCE MAO [facility] [id number] [place] 00:00:00 00:00:[address] 2020-11-09 2020-11-09 Orders Doctor CRANE [id number] 00:00:00 00:00:00 Only UnassignedAVA [id number] [facility] 4.2.7.2.686 [id number] 2020-10-05 2020-10-05 Telephone INDRA Arredondo [id number] 00:00:00 00:00:00 [facility] [id number] Surgical 4.2.7.2.686 Specialti [id number] [place] 2020-09-27 2020-09-27 Hospital Zule[facility] [id number] 08:21:38 23:59:00 Encounter [facility]ri[facility] [id number] Surgical 4.2.7.2.686 Specialti [id number] es 809 [place] 2020-09-27 2020-09-27 Office Zuleika [facility] [id number] 07:50:24 08:32:23 Visit Darrius [facility] [id number] Surgical 4.2.7.2.686 Specialti [id number] es 198 [place] 2020-09-24 2020-09-24 Orders Doctor ROYCE [id number] 00:00:00 00:00:00 Only Unassigned, AVA 350.1.13.10 [place] [facility] 4.2.7.2.686 [id number] 2019-12-29 2019-12-29 [facility] [id number] [facility] 09:49:00 09:49:00 [facility] Medicine Outpati ent Clinics 2019-12-27 2019-12-27 [facility] [id number] 09:02:00 09:02:00 [facility] Medicine l Medicine Outpati ent Clinics 2019-12-14 2019-12-14 [facility] [id number] [facility] 14:36:00 14:36:00 [facility] Medicine l Medicine Outpati ent Clinics 2019-11-08 2019-11-08 [facility] [id number] 09:58:00 09:58:00 [facility] Medicine l Medicine Outpati ent Clinics 2019-11-08 2019-11-08 [facility] [id number] 09:56:00 09:56:00 [facility] Medicine Outpati ent Clinics 2019-10-24 2019-10-24 [facility] [id number] 21:19:00 21:19:00 t [facility] Medicine Medicine Outpati ent Clinics 2019-10-24 2019-10-24 [facility] [id number] 21:06:00 21:06:00 t [facility] Medicine Outpati ent Clinics 2019-10-24 2019-10-24 [facility] [id number] 09:30:00 09:30:00 t [facility] Medicine l Medicine Outpati ent Clinics 2019-09-13 2019-09-13 [facility] [id number] 13:20:00 13:20:00 t [facility] Medicine Outpati ent Clinics 2019-08-26 2019-08-26 [facility] [id number] 08:45:00 08:45:00 t [facility] Medicine Outpati ent Clinics 2019-08-22 2019-08-22 [facility] [id number] 01:08:00 01:08:00 t [facility] Medicine Outpati ent Clinics 2019-08-17 2019-08-17 [facility] [id number] 09:51:00 09:51:00 t [facility] Medicine Outpati ent Clinics 2019-08-16 2019-08-16 [facility] [id number] 13:20:00 13:20:00 t [facility] Medicine Medicine Outpati ent Clinics 2019-07-21 2019-07-21 [facility] [id number] 14:47:00 14:47:00 t [facility] Medicine Outpati ent Clinics 2019-07-15 2019-07-15 [facility] [id number] 10:09:00 10:09:00 t [facility] Medicine Outpati ent Clinics 2019-07-15 2019-07-15 [facility] [id number] 08:40:00 08:40:00 t [facility] Medicine Medicine Outpati ent Clinics 2019-07-11 2019-07-11 [facility] [id number] 13:46:00 13:46:00 t [facility] Medicine Outpati ent Clinics 2019-06-28 2019-06-28 [facility] [id number] 02:54:00 02:54:00 t [facility] Medicine l Medicine Outpati ent Clinics 2019-06-24 2019-06-24 [facility] [id number] 09:00:00 09:00:00 t [facility] Medicine Outpati ent Clinics 2019-06-23 2019-06-23 [facility] [id number] 15:00:00 15:00:00 t [facility] Medicine Medicine Outpati ent Clinics 2019-05-30 2019-05-30 [facility] [id number] 15:13:00 15:13:00 t [facility] Medicine Medicine Outpati ent Clinics 2019-05-05 2019-05-05 [facility] [id number] 15:33:00 15:33:00 t [facility] Medicine Medicine Outpati ent Clinics 2019-04-28 2019-04-28 [facility] [id number] 09:02:00 09:02:00 t [facility] Medicine Medicine Outpati ent Clinics 2019-04-26 2019-04-26 [facility] [id number] 13:43:00 13:43:00 t [facility] Medicine Outpati ent Clinics 2019-04-25 2019-04-25 [facility] [id number] 22:56:00 22:56:00 t [facility] Medicine Outpati ent Clinics 2019-04-24 2019-04-24 [facility] [id number] 11:41:00 11:41:00 t [facility] Medicine Outpati ent Clinics 2019-04-15 2019-04-15 [facility] [id number] 09:07:00 09:07:00 [facility] Medicine Outpati ent Clinics 2019-04-15 2019-04-15 [facility] [id number] 08:00:00 08:00:00 [facility] Medicine Outpati ent Clinics 2019-03-24 2019-03-24 Outpatient Andreia Boswell [id number] [facility] 09:27[facility]27[facility]00 [facility] Clin[facility] 2019-03-16 2019-03-16 [facility] [id number] 09:16:00 09:16:00 [facility] Medicine Outpati ent Clinics 2019-02-22 2019-02-22 [facility] [id number] 09:03:00 09:03:00 [facility] Medicine Outpati ent Clinics 2019-02-18 2019-02-18 [facility] [id number] 18:38:00 18:38:00 [facility] Medicine Outpati ent Clinics 2019-02-18 2019-02-18 [facility] [id number] 15:06:00 15:06:00 t [facility] Medicine Outpati ent Clinics 2019-02-16 2019-02-16 [facility] [id number] 16:06:00 16:06:00 [facility] Medicine Outpati ent Clinics 2019-02-15 2019-02-15 [facility] [id number] 15:20:00 15:20:00 [facility] Medicine Outpati ent Clinics Results Test Description Test Time Test Comments Results Result [facility] e Comments - XR HIP W/PEL UNI 2+V LT 9 10:05:[address] [facility] 1965 Sex: F * Patient Name: ARI RUVALCABA Unit No: [id number] EXAMS: CPT CODE: [id number] XR HIP W/PEL UNI 2+[place] [address] AP pelvis with frog-leg view left hip LOCATION: T18 INDICATION: Pain Postsurgical changes L5-S1. Bony alignment is normal. No fracture, dislocation , osteolytic or osteoblastic lesions are identified. Soft tissues unremarkable. Probable chronic irregularity greater trochanter left hip. IMPRESSION: No acute findings. at 1005 Reported and signed by: Royce Morse MD CC: Francisco Andrea MD Technologist: Archana Marley, RT(R) Transcrpt Date/Tm/Trnsp: 12/14/2020 (1005) RanjithJMATTHEW Orig Print D/T: S: 12/14/2020 (1009) [facility] NAME: ARI RUVALCABA [id number] [facility] [address] PHYS: [place] [address] : 1965 AGE: 55 SEX: F LOC: ZAdryanFuturestateITAD PHONE #: [phone] EXAM DATE: 12/14/2020 STATUS: REG CLI FAX #: [phone] RADIOLOGY NO: PAGE 1 Signed Report XR Lumbar Spine Hm Interface, Sandra kaur Ap Lateral [address] Flexion And 12:32:20 Incoming - Extension 11/13/2020 12:35 PM CST EXAMINATION : Lateral neutral, flexion and extension views; AP view of the lumbar spine in the standing position.CLINICAL HISTORY: 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 The vertebral body and disc space height and alignment and degenerative changes are relatively stable. There are a few small ventral and lateral osteophytes. The lumbar curvature is convex towards the right. There is facet hypertrophy greater in the lower lumbar region. There is greater posterior disc space narrowing throughout the lumbar region. There is no significant change in alignment with flexion versus extension. There is approximately 1.5 mm anterolisthesis at L4-5.There is mild calcification of the moya of some of the arteries.There are surgical clips in the pelvis and right upper quadrant.IMPRESSION: Relatively stable postoperative and degenerative changes.[id number]
[2021-04-02 23:37] LABS: Absolute Lymphocytes (CBC) 1.8 K/uL (0.7-4.9); Basophils % 1.2 % (0-1.3); Hematocrit 37.8 % (36.0-45.0); Lymphocytes % 19.4 % (15.3-44.8); MPV 7.3 fL (7.6-11.3); RBC Red Blood Cell Count 4.26 M/uL (3.86-4.86)
[2021-04-03 00:08] LABS: ALT/SGPT 31 U/L (12-78); AST/SGOT 22 U/L (15-37); Albumin 3.6 g/dL (3.4-5.0); Alkaline Phosphatase 75 U/L (45-117); BUN Blood Urea Nitrogen 16 mg/dL (7-18); Bicarbonate 29 mmol/L (21-32); Bilirubin Direct < 0.1 mg/dL (0-0.2); Bilirubin Total 0.3 mg/dL (0.2-1.0); Glucose Level 160 mg/dL (74-106); Lipase 84 U/L (73-393); Potassium 4.2 mmol/L (3.5-5.1); Protein, Total 7.4 g/dL (6.4-8.2); Sodium Level 140 mmol/L (136-145)
[2021-04-03] MEDS ORDERED: IBUPROFEN 400 MG TAB ONE (00:39)
[2021-04-03] MEDS ORDERED: METOCLOPRAMIDE 10 MG/2mL INJ ONE (00:39)
[2021-04-03] MEDS ORDERED: NA CHLORIDE 0.9% 1,000 ML ONE (00:39)
[2021-04-03] MEDS ORDERED: DIPHENHYDRAMINE 50 MG/ML VIAL ONE (00:39)
--- NOTE | 2021-04-03 01:33 | ER ---
Nurse's Notes [facility] Name: Charlotte Ruvalcaba Age: 55 yrs Sex: Female : 1965 Arrival Date: 04/02/2021 Time: 22:11 Bed 6 Private MD: Naseem Sanchez E Diagnosis: Cramp and spasm-bilateral legs Presentation: 04/02 22:56 Chief complaint: Patient states: cramping in legs, thighs, feet, and hands. Pt stated kg that this happened to her last year and her electrolytes where out of balance. Coronavirus screen: Client denies travel out of the [place] in the last 14 days. At this time, unable to obtain information related to travel outside the [place] At this time, the client does not indicate any symptoms associated with coronavirus-19. Ebola Screen: Patient negative for fever greater than or equal to 101.5 degrees Fahrenheit, and additional compatible Ebola Virus Disease symptoms Patient denies exposure to infectious person. Patient denies travel to an Ebola-affected area in the 21 days before illness onset. Initial Sepsis Screen: Does the patient meet any 2 criteria? No. Patient's initial sepsis screen is negative. Does the patient have a suspected source of infection? No. Patient's initial sepsis screen is negative. Risk Assessment: Do you want to hurt yourself or someone else? Patient reports no desire to harm self or others. Onset of symptoms was March 26, 2021. 22:56 Method Of Arrival: Ambulatory kg 22:56 Acuity: RASHAD 3 kg Triage Assessment: 22:58 General: Appears in no apparent distress. Behavior is calm, cooperative, appropriate kg for age, quiet. Pain: Complains of pain in right hand, left hand, right foot, left foot, right leg and left leg Pain currently is 10 out of 10 on a pain scale. at worst was 10 out of 10 on a pain scale. level that patient reports is acceptable is 5 out of 10 on a pain scale. Quality of pain is described as crampy, Pain began one week ago. Historical: - Allergies: 22:58 NKDA; kg - Home Meds: 22:58 albuterol sulfate 90 mcg/actuation Inhl HFAA 2 puffs twice daily as needed [Active]; kg 23:03 metformin 500 mg Oral tab 1 tab [Active]; sertraline 50 mg oral tab 1 tab once daily kg [Active]; 23:04 Trulance 3 mg oral tab 1 tab [Active]; gabapentin 600 mg oral tab 1 tab 3 times per day kg [Active]; amlodipine 5 mg tab 1 tab once daily [Active]; levothyroxine 50 mcg cap 1 cap once daily [Active]; simvastatin 10 mg Oral tab 1 tab once daily [Active]; losartan-hydrochlorothiazide 100-25 mg oral tab 1 tab once daily [Active]; simvastatin 10 mg Oral tab 1 tab once daily [Active]; Januvia 50 mg oral tab 1 tab once daily [Active]; trazodone 50 mg Oral tab 1 tab once daily [Active]; omeprazole 40 mg Oral cpDR 1 cap once daily [Active]; [place] 10-325 mg Oral tab 1 tab every 4-6 hours [Active]; - PMHx: 22:58 Diabetes - IDDM; Hypertension; Hypothyroidism; Gout; COPD; chronic pain, sees pain kg doctor; breast cancer; Asthma; - Immunization history:: Adult Immunizations up to date, Client reports receiving the 1st dose of the Covid vaccine, Eric \T\ Eric. - Social history:: Smoking status: Patient denies any tobacco usage or history of. - Family history:: not pertinent. Screenin:01 Abuse screen: Denies threats or abuse. Denies injuries from another. Nutritional kg screening: No deficits noted. Tuberculosis screening: No symptoms or risk factors identified. Fall Risk No fall in past 12 months (0 pts). No secondary diagnosis (0 pts). IV access (20 points). Ambulatory Aid- None/Bed Rest/Nurse Assist (0 pts). Gait- Normal/Bed Rest/Wheelchair (0 pts) Mental Status- Oriented to own ability (0 pts). Total Stafford Fall Scale indicates Low Risk Score (25-44 pts). Assessment: 04/03 01:39 Reassessment: Patient and/or family updated on plan of care and expected duration. Pain ea level reassessed. Patient is alert, oriented x 3, equal unlabored respirations, skin warm/dry/pink. Discharge instruction given to patient verbalized the understanding of instruction. Pt left ED ambulatory tolerating well. Vital Signs: 04/02 22:56 Pulse 80; Resp 20; Temp 98.2; Pulse Ox 96% on R/A; Weight 89.36 kg (M); Height 5 ft. 4 kg in. (162.56 cm) (R); Pain 10/10; 04/03 01:17 BP 162 / 70; Pulse 93; Resp 18; Pulse Ox 98% ; ea 04/02 22:56 Body Mass Index 33.81 (89.36 kg, 162.56 cm) kg ED Course: 04/02 22:11 Patient arrived in ED. es 22:11 Naseem Sanchez MD is Private Physician. es 22:58 Triage completed. kg 22:58 Arm band placed on right wrist. kg 23:02 Patient has correct armband on for positive identification. kg 23:36 Brittany Akers, ALOK is Primary Nurse. ea 23:44 Brown Ronquillo MD is Attending Physician. ma2 04/03 00:30 Inserted saline lock: 22 gauge in left forearm, using aseptic technique. ds4 01:40 No provider procedures requiring assistance completed. IV discontinued, intact, ea bleeding controlled, No redness/swelling at site. Pressure dressing applied. Administered Medications: 00:38 Drug: Benadryl (diphenhydrAMINE) 25 mg Route: IVP; Site: right antecubital; ea 01:41 Follow up: Response: No adverse reaction ea 00:38 Drug: Motrin (ibuprofen) 400 mg Route: PO; ea 01:41 Follow up: Response: No adverse reaction ea 00:39 Drug: NS 0.9% 1000 ml Route: IV; Rate: 1 bolus; Site: right antecubital; ea 01:40 Follow up: Response: No adverse reaction; IV Status: Completed infusion; IV Intake: ea 1000ml 00:39 Drug: Reglan (metoCLOPramide) 10 mg Route: IVP; Site: right antecubital; ea 01:40 Follow up: Response: No adverse reaction ea Intake: 01:40 IV: 1000ml; Total: 1000ml. ea Outcome: 01:32 Discharge ordered by . ma2 01:40 Discharged to home ambulatory, with family. ea 01:40 Condition: stable 01:40 Discharge instructions given to patient, Instructed on discharge instructions, follow up and referral plans. medication usage, Demonstrated understanding of instructions, follow-up care, medications, Prescriptions given X 1. 01:41 Patient left the ED. ea Signatures: BlaineQi Donovan ds4 Brittany Akers, RN RN ea Brown Ronquillo MD MD ma2 Wendy Perez RN RN kg
--- NOTE | 2021-04-03 01:33 | EDPHYS ---
Physician Documentation [facility] Name: Charlotte Ruvalcaba Age: 55 yrs Sex: Female : 1965 Arrival Date: 04/02/2021 Time: 22:11 Bed 6 Private MD: Naseem Sanchez E ED Physician Brown Ronquillo HPI: 04/02 23:56 This 55 yrs old Black Female presents to ER via Ambulatory with complaints of Cramps in ma2 feet, legs, thighs. 23:56 The complaints affect the lateral aspect of left calf, left calf, medial aspect of left ma2 calf and left mir. Onset: The symptoms/episode began/occurred gradually, 3 day(s) ago. Associated signs and symptoms: Pertinent negatives numbness, swelling, tingling, weakness. Severity of symptoms: At their worst the symptoms were moderate, in the emergency department the symptoms are unchanged. The patient has experienced similar episodes in the past, had electrolyte abnormality. Historical: - Allergies: 22:58 NKDA; kg - Home Meds: 22:58 albuterol sulfate 90 mcg/actuation Inhl HFAA 2 puffs twice daily as needed [Active]; kg 23:03 metformin 500 mg Oral tab 1 tab [Active]; sertraline 50 mg oral tab 1 tab once daily kg [Active]; 23:04 Trulance 3 mg oral tab 1 tab [Active]; gabapentin 600 mg oral tab 1 tab 3 times per day kg [Active]; amlodipine 5 mg tab 1 tab once daily [Active]; levothyroxine 50 mcg cap 1 cap once daily [Active]; simvastatin 10 mg Oral tab 1 tab once daily [Active]; losartan-hydrochlorothiazide 100-25 mg oral tab 1 tab once daily [Active]; simvastatin 10 mg Oral tab 1 tab once daily [Active]; Januvia 50 mg oral tab 1 tab once daily [Active]; trazodone 50 mg Oral tab 1 tab once daily [Active]; omeprazole 40 mg Oral cpDR 1 cap once daily [Active]; [place] 10-325 mg Oral tab 1 tab every 4-6 hours [Active]; - PMHx: 22:58 Diabetes - IDDM; Hypertension; Hypothyroidism; Gout; COPD; chronic pain, sees pain kg doctor; breast cancer; Asthma; - Immunization history:: Adult Immunizations up to date, Client reports receiving the 1st dose of the Covid vaccine, Eric \T\ Eric. - Social history:: Smoking status: Patient denies any tobacco usage or history of. - Family history:: not pertinent. ROS: 23:56 Constitutional: Negative for fever, chills, and weight loss. ma2 23:56 All other systems are negative. Exam: 23:56 Constitutional: This is a well developed, well nourished patient who is awake, alert, ma2 and in no acute distress. Head/Face: Normocephalic, atraumatic. Eyes: Pupils equal round and reactive to light, extra-ocular motions intact. Lids and lashes normal. Conjunctiva and sclera are non-icteric and not injected. Cornea within normal limits. Periorbital areas with no swelling, redness, or edema. ENT: Nares patent. No nasal discharge, no septal abnormalities noted. Tympanic membranes are normal and external auditory canals are clear. Oropharynx with no redness, swelling, or masses, exudates, or evidence of obstruction, uvula midline. Mucous membranes moist. Neck: Trachea midline, no thyromegaly or masses palpated, and no cervical lymphadenopathy. Supple, full range of motion without nuchal rigidity, or vertebral point tenderness. No Meningismus. Chest/axilla: Normal chest wall appearance and motion. Nontender with no deformity. No lesions are appreciated. Cardiovascular: Regular rate and rhythm with a normal S1 and S2. No gallops, murmurs, or rubs. Normal PMI, no JVD. No pulse deficits. Respiratory: Lungs have equal breath sounds bilaterally, clear to auscultation and percussion. No rales, rhonchi or wheezes noted. No increased work of breathing, no retractions or nasal flaring. Abdomen/GI: Soft, non-tender, with normal bowel sounds. No distension or tympany. No guarding or rebound. No evidence of tenderness throughout. Skin: Warm, dry with normal turgor. Normal color with no rashes, no lesions, and no evidence of cellulitis. MS/ Extremity: Pulses equal, no cyanosis. Neurovascular intact. Full, normal range of motion. Neuro: Awake and alert, GCS 15, oriented to person, place, time, and situation. Cranial nerves II-XII grossly intact. Motor strength 5/5 in all extremities. Sensory grossly intact. Cerebellar exam normal. Normal gait. Vital Signs: 22:56 Pulse 80; Resp 20; Temp 98.2; Pulse Ox 96% on R/A; Weight 89.36 kg (M); Height 5 ft. 4 kg in. (162.56 cm) (R); Pain 10/; 04/03 01:17 BP 162 / 70; Pulse 93; Resp 18; Pulse Ox 98% ; ea 04/02 22:56 Body Mass Index 33.81 (89.36 kg, 162.56 cm) kg MDM: 04/02 23:[address] [facility] 23:56 Differential diagnosis: abrasion, tendonitis, leg cramps no swelling or signs of dvt. [facility] 04/03 01:31 Data reviewed: vital signs, nurses notes. Counseling: I had a detailed discussion with [facility] the patient and/or guardian regarding: the historical points, exam findings, and any diagnostic results supporting the discharge/admit diagnosis, the presence of at least one elevated blood pressure reading (>120/80) during this emergency department visit, the need for outpatient follow up. Response to treatment: the patient's symptoms have resolved after treatment. 04/02 23:28 Order name: Basic Metabolic Panel; Complete Time: 01:14 kg 04/02 23:28 Order name: CBC with Diff; Complete Time: 00:04 kg 04/02 23:28 Order name: Hepatic Function; Complete Time: 01:14 kg 04/02 23:28 Order name: Lipase; Complete Time: 01:14 kg 04/02 23:28 Order name: IV Saline Lock; Complete Time: 00:30 kg 04/02 23:28 Order name: Labs collected and sent; Complete Time: 00:30 kg Administered Medications: 00:38 Drug: Benadryl (diphenhydrAMINE) 25 mg Route: IVP; Site: right antecubital; ea 01:41 Follow up: Response: No adverse reaction ea 00:38 Drug: Motrin (ibuprofen) 400 mg Route: PO; ea 01:41 Follow up: Response: No adverse reaction ea 00:39 Drug: NS 0.9% 1000 ml Route: IV; Rate: 1 bolus; Site: right antecubital; ea 01:40 Follow up: Response: No adverse reaction; IV Status: Completed infusion; IV Intake: ea 1000ml 00:39 Drug: Reglan (metoCLOPramide) 10 mg Route: IVP; Site: right antecubital; ea 01:40 Follow up: Response: No adverse reaction ea Disposition Summary: 04/03/21 01:32 Discharge Ordered Location: Home ma2 Condition: Stable ma2 Diagnosis - Cramp and spasm - bilateral legs ma2 Followup: ma2 - With: Private Physician - When: Tomorrow - Reason: Continuance of care Discharge Instructions: - Discharge Summary Sheet ma2 - Muscle Cramps and Spasms ma2 Forms: - Medication Reconciliation Form ma2 - Thank You Letter ma2 - Antibiotic Education ma2 - Prescription Opioid Use ma2 Prescriptions: - Diclofenac Sodium 75 mg Oral Tablet Sustained Release - take 1 tablet by ORAL route 2 times per day; 30 tablet; Refills: 0, Product ma2 Selection Permitted Signatures: Dispatcher [employer] Brittany Pena, Brown Mukherjee RN, ea, MD MD ma2 Wendy Perez RN RN kg
[2021-04-04 05:46] VITALS: TEMP 98.2
[2021-04-04 05:48] VITALS: BP 162/70; O2SAT 98
== END 2021-04-03 01:41 | disposition home or self-care (01) ==
LOC: ER 22:08
DX: R25.2 Cramp and spasm (principal); I10 Essential (primary) hypertension; E11.9 Type 2 diabetes mellitus without complications; Z85.3 Personal history of malignant neoplasm of breast
CPT/HCPCS: 96361; 85025; 80048; 36415; 80076; 83690; 96375; 96374; 99283; J2765; J1200; J7030

== ENCOUNTER 2021-10-22 18:40 | Emergency (ER) | payer OTHER ==
--- OUTSIDE RECORDS SUMMARY | 2021-10-22 18:45 | XMS REPORT | Continuity of Care Document ---
:1965 Author Organization [facility] t Address [address] [place] [address] Care Team Providers Name Role Phone Laura Peters MD Primary Care Physician Nahed De Anda Attending Clinician Unavailable Yolanda Attending Clinician Unavailable Ashley Attending Clinician Unavailable Latasha HANCOCK Attending Clinician Unavailable JANNA Attending Clinician Unavailable RADIOLOGY Attending Clinician Unavailable Doctor Unassigned, Name Attending Clinician Unavailable Alonso SIMMONS Attending Clinician Darien Dooley MD Attending Clinician RICHARD Attending Clinician Unavailable Richard JONES Attending Clinician HALEY Attending Clinician Unavailable Klarissa VEGA Attending Clinician Unavailable Glendy BRAGA S Attending Clinician EMANUEL Attending Clinician Unavailable Singer SIMMONS Attending Clinician Sherron CAMPA Attending Clinician Dion Andrea Attending Clinician Unavailable Tita BRINK, Maryann Attending Clinician Klarissa Nick Attending Clinician Hancock MD, L Attending Clinician Klarissa DOOLEY Attending Clinician Unavailable Crissy MAE Attending Clinician Unavailable PRANAV, I Attending Clinician Unavailable Latasha HANCOCK Admitting Clinician Unavailable Referred Admitting Clinician Unavailable PRANAV, I Admitting Clinician Unavailable Payers Payer Name Policy Type Policy Number Effective Date Expiration Date Klarissa MUNOZ [employer] [place] [id number] 2015 00:00:00 [facility] [id number] 2016 MEDICAID 00:00:00 [facility] [id number] 2016 MEDICAID [id number] 00:00:00 Problems Condition Condition Condition Status Onset Resolution Last Treating Co mments Source Name Details Category Date Date Treatment Clinician Date Sacroiliac Sacroiliac Disease Active Last U T joint joint 02-27 [facility] dysfunctio dysfunctio 00:00: t & Plan: n of left n of left 00 Formattin side side g of this note might be different from the original. Recommend to see spine specialis t and recommend PT for SI reduction Iliotibial Iliotibial Disease Active U T band band 02-27 Health syndrome syndrome 00:00: of left of left 00 side side Greater Greater Disease Active [facility] trochanter trochanter 02-27 He alth ic ic 00:00: bursitis bursitis 00 of both of both hips hips S/P S/P Disease Active 2019-09 Univers revision revision 09-08 ity of of total of total 00:00: [place] knee knee 00 Medical Branch S/P total S/P total Disease Active 2019-09 Overview: Univers knee knee 0-19 Formattin ity of replacemen replacemen 00:00: g of this [place] t, right t, right 00 note Medica l might be Branch different from the original. Added automatic ally from request for surgery [id number] Painful Painful Disease Active Univers orthopaedi orthopaedi 04-12 it y of c hardware c hardware 00:[place] [facility] [place] Painful Painful Disease Active [facility] orthopaedi orthopaedi 04-12 it y of c hardware c hardware 00:00: [place] [facility] [place] Degenerati Degenerati Disease Active 2017-09 M ethodi on of on of 09-15 st interverte interverte 00:00: Ho spita bral disc bral disc 00 l of of lumbosacra lumbosacra l region l region Thumb Thumb Disease Active Univers pain, left pain, left -09 it y of 00:00: Medical Branch Total knee Total knee Disease Active U nivers replacemen replacemen 5-16 it y of t status t status 00:00: Medical Branch Right knee Right knee Disease Active U nivers pain pain 5-06 ity of 00:00: Medical Branch Lump or Lump or Disease Active Univers mass in mass in - ity of breast breast 00:00: [facility] Branch 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 Obesity Obesity Disease Active Univers (BMI (BMI ity of 30-39.9) 30-39.9) [facility] Uncontroll Uncontroll Problem Active [facility] ed type 2 ed type 2 Luke s - diabetes diabetes Memori a mellitus mellitus l with with Outpati hyperglyce hyperglyce en t [facility] Clinics Anxiety Anxiety Problem [facility] Asthma, Asthma, Problem Active [facility] unspecifie unspecifie Verenice kes - d asthma d asthma Memori a severity, severity, l unspecifie unspecifie Ou tpati d whether d whether ent complicate complicate Cl inics d, d, unspecifie unspecifie d whether d whether persistent persistent Diabetes Diabetes Problem [facility] Swelling Swelling Problem [facility]ics High blood High blood Problem Active [facility] pressure pressure [facility] Sinus Sinus Problem Active [facility] problem problem [facility]ics High High Problem Active [facility] cholestero cholestero Verenice kes - l l Memoria l Outpati ent [facility] Depression Depression Problem Active [facility] with with [facility] - anxiety anxiety Memoria l [facility] ent Clinics Acquired Acquired Problem Active [facility] t hypothyroi hypothyroi Verenice kes - [facility] Chronic Chronic Problem Active [facility] pain pain [facility] - syndrome syndrome Memori a l [facility] ent [facility] Polyarthra Polyarthra Problem Active [facility] lgia lgia [facility] Clinics Gastroesop Gastroesop Problem Active C [...] urine odor Verenice kes - Memoria l [facility] Clinics Hoarseness Hoarseness Problem Active [facility] Hyperlipid Hyperlipid Problem Active [facility] emia, emia, Lukes - unspecifie unspecifie Me moria d d l hyperlipid hyperlipid Ou tpati emia type emia type ent Clinics Sore Sore Problem Active [facility] throat throat [facility] Non-intrac Non-intrac Problem Active [facility] table table [facility] - vomiting vomiting Memori a with with l nausea, nausea, Outpati unspecifie unspecifie en t d vomiting d vomiting Cl inics type type Chest Chest Problem Active [facility] tightness tightness [facility] - Memoria l [facility] Clinics Exposure Exposure Problem Active [facility] t to mold to mold [facility] Wheezing Wheezing Problem Active [facility] Shortness Shortness Problem Active [facility] of breath of breath Luke s - Memoria l [facility] Itching Itching Problem Active [facility] Muscle Muscle Problem Active [facility] cramping cramping [facility] Right leg Right leg Problem Active [facility] pain pain [facility]ics Acute Acute Problem Active [facility] right-side right-side Verenice kes - d thoracic d thoracic Me moria back pain back pain l [facility] Clinics Low back Low back Problem Active [facility] t pain pain [facility] Other Other Problem Active [facility] chronic chronic [facility] - pain pain Memoria l [facility] Lumbago Lumbago Problem Active [facility] with with [facility] - sciatica, sciatica, Brennen oscar right side right side l [facility] Clinics Status Status Problem Active [facility] post fall post fall Luke [facility] - Memoria l [facility]ics Dizziness Dizziness Problem Active [facility] Imbalance Imbalance Problem Active [facility] Difficulty Difficulty Problem Active [facility] sleeping sleeping [facility] Acute Acute Problem Active [facility] stress stress [facility] - reaction reaction Memori a l [facility] Clinics 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[facility]ukes - both both Memoria carotid carotid l arteries arteries Outmit i ent Clinics Stenosis Stenosis Problem Active [facility] t of left of left [facility]ukes - carotid carotid Memoria artery artery l [facility] Clinics Status Status Problem Active [facility] post CVA post CVA [facility] Stenosis Stenosis Problem Active [facility] t of right of right [facility] - carotid carotid Memoria artery artery l [facility] Clinics Allergies, Adverse Reactions, Alerts Allergy Allergy Status Severity Reaction(s) Onset Inactive Treating Comm ents Source Name Type Date Date Clinician NO KNOWN Drug Active Univers ALLERGIE Class ity of S [place] [facility] Family History Family Member Diagnosis Comments Start Date Stop Date Source Natural father Nondenominational [facility] Natural mother COPD Nondenominational [facility] Natural mother [facility] Natural mother [facility] Social History Social Habit Start Date Stop Date Quantity Comments Source Exposure to Not sure [facility] SARS-CoV-2 (event) History of tobacco Cigarette Smoker Nondenominational use [facility] Alcohol intake 2021-09-14 2021-09-14 Ex-drinker [facility] 00:00:00 00:00:00 (finding) Tobacco use and 2021-02-27 2021-02-27 Smokeless tobacco [facility] exposure 00:00:00 00:00:00 non-user Cigarettes smoked 2018-07-15 2018-07-[address] current (pack per 00:00:00 00:00:00 Hospita l ) - Reported Sex Assigned At [address] [facility] 00:00:00 00:00:00 Smoking Status Start Date Stop Date Source Never smoked tobacco [facility] Ex-smoker 2018-07-15 00:00:00 2018-07-15 00:00:[address] [facility] Medications Ordered Filled Start Stop Current Ordering Indication Dosage Frequency Signature Comments Components Source Medication Medication Date Date Medication? Clinician (SIG) Name Name amoxicillin Yes 1{tbl} 1 tablet, Univers -clavulanat 09-07 Oral, ity of e 02:00: Q12H, [place] (AUGMENTIN) 00 First dose Me dical 875-125 mg on Thu Branch per tablet 09/06/21 1 tablet at 2000, Until Discontinu ed, Routine
Reason for Anti-Infec tive: Documented Infection< br>Documen roberto carlos Infection Site: HEENT
D uration of Therapy: 7 days ketorolac 2020-09- No 15mg 15 mg, Unive rs (TORADOL) 09-06 Slow IV ity of injection 17:45: 17:00 Push, [place] 15 mg 00 :00 ONCE, 1 Medical dose, On Branch Thu09/06/21 at 1145, CHEPE NaCl 0.9% 2020-09 No 500mL at 999 Univ ers (NS) bolus 09-06 mL/hr, 500 it y of infusion 17:45: 18:42 mL, IV [place] 500 mL 00 :00 Infusion, Medical ONCE, 1 Branch dose, On Thu09/06/21 at 1145, STAT simvastatin 2020-09 Yes 40mg Take 40 mg Univers (ZOCOR) 40 2-31 by mouth ity o f mg tablet 09:57: at [place] 45 bedtime. Medical Branch levothyroxi 2020-09 Yes 50ug Take 50 Uni vers ne 2-31 mcg by ity of (SYNTHROID) 09:57: mouth [place] 50 mcg 45 every Medical tablet morning. Branch ALBUTEROL 2020-09 Yes 1{puff} Inhale 1 U nivers SULFATE HFA 2-31 Puff as ity o f INHALE 09:57: needed. [place] 45 Medical Branch esomeprazol 2021-1 Yes 40mg Take 40 mg Univers e 40 mg 2-31 by mouth. ity of capsule 09:57: [address] Branch gabapentin 2020-09 Yes 600mg Take 600 Un donaldo ER 600 mg 2-31 mg by ity of tablet, 09:57: mouth. [place] [address] Medical release 24 Branch hr insulin 2020-09 Yes 85U inject 85 Unive rs degludec 2-31 Units ity of 100 unit/mL 09:57: under the [place] (3 mL) InPn 45 skin. Medical Branch simvastatin 2020-09 Yes 40mg Take 40 mg Univers (ZOCOR) 40 2-31 by mouth ity o f mg tablet 09:57: at [place] [address] bedtime. Medical Branch levothyroxi 2020-09 Yes 50ug Take 50 Uni vers ne 2-31 mcg by ity of (SYNTHROID) 09:57: mouth [place] 50 mcg 45 every Medical tablet morning. Branch ALBUTEROL 2020-09 Yes 1{puff} Inhale 1 U nivers SULFATE HFA 2-31 Puff as ity o f INHALE 09:57: needed. [address] Branch esomeprazol 2020-09 Yes 40mg Take 40 mg Univers e 40 mg 2-31 by mouth. ity of capsule 09:57: [address] gabapentin 2020-09 Yes 600mg Take 600 Un donaldo ER 600 mg 2-31 mg by ity of tablet, 09:57: mouth. [place] [address] Medical release 24 Branch hr insulin 2020-09 Yes 85U inject 85 Unive rs degludec 2-31 Units ity of 100 unit/mL 09:57: under the [place] (3 mL) InPn 45 skin. Medical Branch simvastatin 2020-09 Yes 40mg Take 40 mg Univers (ZOCOR) 40 2-31 by mouth ity o f mg tablet 09:57: at [place] [address] bedtime. Medical Branch levothyroxi 2020-09 Yes 50ug Take 50 Uni vers ne 2-31 mcg by ity of (SYNTHROID) 09:57: mouth [place] 50 mcg 45 every Medical tablet morning. Branch ALBUTEROL 2020-09 Yes 1{puff} Inhale 1 U nivers SULFATE HFA 2-31 Puff as ity o f INHALE 09:57: needed. [place] [address] Medical Branch esomeprazol 2020-09 Yes 40mg Take 40 mg Univers e 40 mg 2-31 by mouth. ity of capsule 09:57: [place] [address] Medical Branch gabapentin 2020-09 Yes 600mg Take 600 Un donaldo ER 600 mg 2-31 mg by ity of tablet, 09:57: mouth. [place] [address] Medical release 24 Branch hr insulin 2020-09 Yes 85U inject 85 Unive rs degludec 2-31 Units ity of 100 unit/mL 09:57: under the [place] (3 mL) InPn 45 skin. Medical Branch simvastatin 2020-09 Yes 40mg Take 40 mg Univers (ZOCOR) 40 2-31 by mouth ity o f mg tablet 09:57: at [place] [address] bedtime. Medical Branch levothyroxi 2020-09 Yes 50ug Take 50 Uni vers ne 2-31 mcg by ity of (SYNTHROID) 09:57: mouth [place] 50 mcg 45 every Medical tablet morning. Branch ALBUTEROL 2020-09 Yes 1{puff} Inhale 1 U nivers SULFATE HFA 2-31 Puff as ity o f INHALE 09:57: needed. [address] Branch esomeprazol 2020-09 Yes 40mg Take 40 mg Univers e 40 mg 2-31 by mouth. ity of capsule 09:57: [address] Branch gabapentin 2020-09 Yes 600mg Take 600 Un donaldo ER 600 mg 2-31 mg by ity of tablet, 09:57: mouth. [place] [address] Medical release 24 Branch hr insulin 2020-09 Yes 85U inject 85 Unive rs degludec 2-31 Units ity of 100 unit/mL 09:57: under the [place] (3 mL) InPn 45 skin. Medical Branch predniSONE 2020-09 Yes [id number] 60mg Take 3 U nivers 20 mg 2-31 tablets by ity of tablet 00:00: mouth [place] 00 every Medical morning. Branch benzonatate 2020-09 Yes [id number] 100mg Take 1 Univers 100 mg 2-31 capsule by ity of capsule 00:00: mouth 3 [place] 00 (three) Medical times Branch daily as needed for Cough. predniSONE 2020-09 Yes [id number] 60mg Take 3 U nivers 20 mg 2-31 tablets by ity of tablet 00:00: mouth [place] 00 every Medical morning. Branch benzonatate 2020-09 Yes [id number] 100mg Take 1 Univers 100 mg 2-31 capsule by ity of capsule 00:00: mouth 3 [place] 00 (three) Medical times Branch daily as needed for Cough. 2020-09 Yes INJECT 95 Unive rs FLEXTOUCH 2-27 UNITS ity of U-200 200 00:00: SUBCUTANEO [place] unit/mL (3 00 USLY IN Medica l mL) InPn THE Branch MORNING FOR 90 DAYS TRESIBA 2020-09 Yes INJECT 95 Unive rs FLEXTOUCH 2-27 UNITS ity of U-200 200 00:00: SUBCUTANEO [place] unit/mL (3 00 USLY IN Medica l mL) InPn THE Branch MORNING FOR 90 DAYS 2020-09 Yes INJECT 95 Unive rs FLEXTOUCH 2-27 UNITS ity of U-200 200 00:00: SUBCUTANEO [place] unit/mL (3 00 USLY IN Medica l mL) InPn THE Branch MORNING FOR 90 DAYS BA 2020-09 Yes INJECT 95 Unive rs FLEXTOUCH 2-27 UNITS ity of U-200 200 00:00: SUBCUTANEO [place] unit/mL (3 00 USLY IN Medica l mL) InPn THE Branch MORNING FOR 90 DAYS methocarbam 2020-09 Yes [id number] 500mg Take 1 Univers oL 500 mg 2-01 tablet by ity o f tablet 00:00: mouth 4 [place] 00 (four) Medical times Branch daily as needed for Pain (scale 4-6). methocarbam 2020-09 Yes [id number] 500mg Take 1 Univers oL 500 mg 2-01 tablet by ity o f tablet 00:00: mouth 4 [place] 00 (four) Medical times Branch daily as needed for Pain (scale 4-6). methocarbam 2020-09 Yes [id number] 500mg Take 1 Univers oL 500 mg 2-01 tablet by ity o f tablet 00:00: mouth 4 [place] 00 (four) Medical times Branch daily as needed for Pain (scale 4-6). methocarbam 2020-09 Yes [id number] 500mg Take 1 Univers oL 500 mg 2-01 tablet by ity o f tablet 00:00: mouth 4 [place] 00 (four) Medical times Branch daily as needed for Pain (scale 4-6). methocarbam 2020-09 Yes [id number] 500mg Take 1 Univers oL 500 mg 2-01 tablet by ity o f tablet 00:00: mouth 4 [place] 00 (four) Medical times Branch daily as needed for Pain (scale 4-6). [facility] 2020-09 Yes TAKE ONE Un donaldo mg Tab 1-24 TABLET BY ity of 00:00: MOUTH ONCE [place] 00 A DAY AT Medical LEAST 30 Branch MINUTES BEFORE FIRST FOOD, BEVERAGE, OR OTHER MEDICINE OF THE DAY [facility] 2020-09 Yes TAKE ONE Un donaldo mg Tab 1-24 TABLET BY ity of 00:00: MOUTH ONCE [place] 00 A DAY AT Medical LEAST 30 Branch MINUTES BEFORE FIRST FOOD, BEVERAGE, OR OTHER MEDICINE OF THE DAY [facility] 2020-09 Yes TAKE ONE Un donaldo mg Tab 1-24 TABLET BY ity of 00:00: MOUTH ONCE [place] 00 A DAY AT Medical LEAST 30 Branch MINUTES BEFORE FIRST FOOD, BEVERAGE, OR OTHER MEDICINE OF THE DAY [facility] 2020-09 Yes TAKE ONE Un donaldo mg Tab 1-24 TABLET BY ity of 00:00: MOUTH ONCE [place] 00 A DAY AT Medical LEAST 30 Branch MINUTES BEFORE FIRST FOOD, BEVERAGE, OR OTHER MEDICINE OF THE DAY traZODone 2020-09 Yes Univers 100 mg 0-27 ity of tablet 00:00: [facility] traZODone 2020-09 Yes Univers 100 mg 0-27 ity of tablet 00:00: [facility] traZODone 2020-09 Yes Univers 100 mg 0-27 ity of tablet 00:00: [place] [facility] traZODone 2020-09 Yes Univers 100 mg 0-27 ity of tablet 00:00: 00 [facility] Branch ketorolac 2020-09- No 15mg 15 mg, Unive rs (TORADOL) 0-04 10-05 Slow IV ity of injection 23:00: 22:59 Push, Q6H, [place] 15 mg 00 :00 4 doses, Medical First dose Branch on Thu06/10/21 at 1800, Last dose on Thu06/11/21 at 1200, Routine NaCl 0.9% 2020-09- No 1000mL at 999 Uni vers (NS) bolus 0-04 10-04 mL/hr, ity of infusion 20:30: 21:37 1,000 mL, Claudio as 1,000 mL 00 :00 IV Medical Piggyback, Chrisman ONCE, 1 dose, On 06/10/21 at 1530, STAT ondansetron 2020-09- No 4mg 4 mg, Slow Univers (ZOFRAN 0-04 10-04 IV Push, ity of (PF)) 19:30: 20:19 ONCE, 1 [place] injection 4 00 :00 dose, On Medi cipriano mg [facility] 06/10/21 at 1430, Routine methocarbam 2020-09- No 750mg Take 750 Univers oL 500 mg 0-04 10-04 mg by ity of tablet 16:24: 00:00 mouth. [place] 32 :00 [facility] methocarbam 2020-09- No [id number] 500mg Take 1 Univers oL 500 mg 0-04 10-10 tablet by ity of tablet 00:00: 04:59 mouth 3 [place] 00 :00 (three) Medical times Chrisman daily for 5 days. FAMOTIDINE Yes Take by Uni vers ORAL 9-11 mouth. ity of 16:11: [address] linaclotide Yes Take by Un donaldo (LINZESS 9-11 mouth. ity of ORAL) 16:11: [address] semaglutide Yes Take by Un donaldo (RYBELSUS) 9-11 mouth. ity of 7 mg Tab 16:11: [address] trazodone Yes Take by [facility] ers HCl 9-11 mouth. ity of (TRAZODONE 16:11: [place] ORAL) 16 [facility] LEVEMIR 100 2020- No 100 units Univers UNIT/ML SC 05-1811 every AM ity of SOLN 16:07: 00:00 [place] 58 :00 [facility] citalopram 2020- No 40mg Take 40 mg Univers (CELEXA) 40 05-18 by mouth ity of mg tablet 16:07: 00:00 daily. [place] 58 :00 [facility] losartan 2020- No 100mg Take 100 Uni vers (COZAAR) 05-1811 mg by ity of 100 mg 16:07: 00:00 mouth [place] tablet 58 :00 daily. Medical Branch Liraglutide 2020-0 2020- No 1.8mL inject 1.8 Univers (VICTOZA 9-11 09-11 mL under ity of 2-ARLENE) 0.6 16:07: 00:00 the skin [place] mg/0.1 mL 58 :00 daily. Medical (18 mg/3 Branch mL) injection insulin Yes 85U inject 85 Unive rs degludec 9-11 Units ity of 100 unit/mL 16:07: under the [place] (3 mL) InPn 56 skin. Medical Branch methocarbam 2020-0 Yes 750mg Take 750 U nivers oL 500 mg 9-11 mg by ity of tablet 16:07: mouth. [place] [address] Medical Branch MAGNESIUM 2020-0 Yes 1{tbl} Take 1 Univ ers ORAL 9-11 tablet by ity of 16:07: mouth. [place] [address] Medical Branch aspirin 81 2020-0 Yes 81mg Take 81 mg U nivers mg EC 9-11 by mouth. ity of tablet 16:07: [address] estradioL 2020-0 Yes .5mg Take 0.5 Univ ers 0.5 mg 9-11 mg by ity of tablet 16:07: mouth. [place] [address] Medical Branch esomeprazol 2020-0 Yes 40mg Take 40 mg Univers e 40 mg 9-11 by mouth. ity of capsule 16:07: [address] gabapentin 0 Yes 600mg Take 600 Un donaldo ER 600 mg 9-11 mg by ity of tablet, 16:07: mouth. [place] [address] Medical release 24 Branch hr FAMOTIDINE 2020-0 Yes Take by Uni vers ORAL 9-11 mouth. ity of 11:11: [place] [address] Medical [place] linaclotide 2020-0 Yes Take by Un donaldo (LINZESS 9-11 mouth. ity of ORAL) 11:11: [address] FAMOTIDINE 2020-0 Yes Take by Uni vers ORAL 9-11 mouth. ity of 11:11: [address] linaclotide 2020-0 Yes Take by Un donaldo (LINZESS 9-11 mouth. ity of ORAL) 11:11: [address] FAMOTIDINE 2020-0 Yes Take by Uni vers ORAL 9-11 mouth. ity of 11:11: [place] [address] Medical Branch linaclotide Yes Take by Un donaldo (LINZESS 9-11 mouth. ity of ORAL) 11:11: [place] [address] Medical Branch FAMOTIDINE 0 Yes Take by Uni vers ORAL 9-11 mouth. ity of 11:11: [place] [address] Medical Branch linaclotide Yes Take by Un donaldo (LINZESS 9-11 mouth. ity of ORAL) 11:11: [place] [address] Medical Branch FAMOTIDINE 0 Yes Take by Uni vers ORAL 9-11 mouth. ity of 11:11: [place] [address] Medical Branch linaclotide Yes Take by Un donaldo (LINZESS 9-11 mouth. ity of ORAL) 11:11: [place] [address] Medical Branch FAMOTIDINE 0 Yes Take by Uni vers ORAL 9-11 mouth. ity of 11:11: [place] [address] Medical Branch linaclotide Yes Take by Un donaldo (LINZESS 9-11 mouth. ity of ORAL) 11:11: [place] [address] Medical Branch semaglutide Yes Take by Un donaldo (RYBELSUS) 9-11 mouth. ity of 7 mg Tab 11:11: [place] [address] Medical Branch trazodone Yes Take by Univ ers HCl 9-11 mouth. ity of (TRAZODONE 11:11: [place] ORAL) Medical Branch semaglutide Yes Take by Un donaldo (RYBELSUS) 9-11 mouth. ity of 7 mg Tab 11:11: [place] [address] Medical Branch trazodone 0 Yes Take by Univ ers HCl 9-11 mouth. ity of (TRAZODONE 11:11: [place] ORAL) Medical Branch semaglutide 0 Yes Take by Un donaldo (RYBELSUS) 9-11 mouth. ity of 7 mg Tab 11:11: [place] [address] Medical Branch trazodone 2020-0 Yes Take by Univ ers HCl 9-11 mouth. ity of (TRAZODONE 11:11: [place] ORAL) Medical Branch semaglutide 0 Yes Take by Un donaldo (RYBELSUS) 9-11 mouth. ity of 7 mg Tab 11:11: [address] Branch trazodone Yes Take by Univ ers HCl 9-11 mouth. ity of (TRAZODONE 11:11: [place] ORAL) [address] [place] [address] Branch semaglutide Yes Take by Un donaldo (RYBELSUS) 9-11 mouth. ity of 7 mg Tab 11:11: [address] trazodone Yes Take by Univ ers HCl 9-11 mouth. ity of (TRAZODONE 11:11: [place] ORAL) [address] [place] [address] Branch semaglutide Yes Take by Un donaldo (RYBELSUS) 9-11 mouth. ity of 7 mg Tab 11:11: [address] trazodone Yes Take by Univ ers HCl 9-11 mouth. ity of (TRAZODONE 11:11: [place] ORAL) [address] [place] [address] insulin Yes 85U inject 85 Unive rs degludec 9-11 Units ity of 100 unit/mL 11:07: under the [place] (3 mL) InPn 56 skin. Medical Branch insulin Yes 85U inject 85 Unive rs degludec 9-11 Units ity of 100 unit/mL 11:07: under the [place] (3 mL) InPn 56 skin. Medical Branch MAGNESIUM Yes 1{tbl} Take 1 Univ ers ORAL 9-11 tablet by ity of 11:07: mouth. [address] aspirin 81 Yes 81mg Take 81 mg U nivers mg EC 9-11 by mouth. ity of tablet 11:07: [address] estradioL Yes .5mg Take 0.5 Univ ers 0.5 mg 9-11 mg by ity of tablet 11:07: mouth. [place] [address] Medical Branch esomeprazol Yes 40mg Take 40 mg Univers e 40 mg 9-11 by mouth. ity of capsule 11:07: [address] gabapentin 0 Yes 600mg Take 600 Un donaldo ER 600 mg 9-11 mg by ity of tablet, 11:07: mouth. [place] [id number] Medical release 24 Branch hr MAGNESIUM Yes 1{tbl} Take 1 Univ ers ORAL 9-11 tablet by ity of 11:07: mouth. [address] aspirin 81 0 Yes 81mg Take 81 mg U nivers mg EC 9-11 by mouth. ity of tablet 11:07: [address] estradioL 2020-0 Yes .5mg Take 0.5 Univ ers 0.5 mg 9-11 mg by ity of tablet 11:07: mouth. [address] esomeprazol 0 Yes 40mg Take 40 mg Univers e 40 mg 9-11 by mouth. ity of capsule 11:07: [address] gabapentin 2020-0 Yes 600mg Take 600 Un donaldo ER 600 mg 9-11 mg by ity of tablet, 11:07: mouth. [address] 24 [place] hr MAGNESIUM 2020-0 Yes 1{tbl} Take 1 Univ ers ORAL 9-11 tablet by ity of 11:07: mouth. [address] aspirin 81 0 Yes 81mg Take 81 mg U nivers mg EC 9-11 by mouth. ity of tablet 11:07: [address] estradioL 2020-0 Yes .5mg Take 0.5 Univ ers 0.5 mg 9-11 mg by ity of tablet 11:07: mouth. [address] MAGNESIUM 2020-0 Yes 1{tbl} Take 1 Univ ers ORAL 9-11 tablet by ity of 11:07: mouth. [address] aspirin 81 2020-0 Yes 81mg Take 81 mg U nivers mg EC 9-11 by mouth. ity of tablet 11:07: [address] estradioL 2020-0 Yes .5mg Take 0.5 Univ ers 0.5 mg 9-11 mg by ity of tablet 11:07: mouth. [address] MAGNESIUM 2020-0 Yes 1{tbl} Take 1 Univ ers ORAL 9-11 tablet by ity of 11:07: mouth. [address] aspirin 81 2020-0 Yes 81mg Take 81 mg U nivers mg EC 9-11 by mouth. ity of tablet 11:07: [address] estradioL 2020-0 Yes .5mg Take 0.5 Univ ers 0.5 mg 9-11 mg by ity of tablet 11:07: mouth. [address] MAGNESIUM 2020-0 Yes 1{tbl} Take 1 Univ ers ORAL 9-11 tablet by ity of 11:07: mouth. [address] aspirin 81 Yes 81mg Take 81 mg U nivers mg EC 9-11 by mouth. ity of tablet 11:07: [address] estradioL Yes .5mg Take 0.5 Univ ers 0.5 mg 9-11 mg by ity of tablet 11:07: mouth. [address] bupivacaine 2020- No [id number] 1mL UT (Marcaine) 02-27 9102 Health 0.5 % 14:41: 14:41 injection 1 46 :00 mL triamcinolo 2020- No [id number] 80mg UT ne 02-27 9102 Health acetonide 14:41: 14:41 (Kenalog-40 46 :00 ) injection 80 mg triamcinolo 2020- No [id number] 80mg 80 mg, UT ne 02-27 9102 [facility] acetonide 14:41: 14:41 cular, (Kenalog-40 46 :00 Once PRN ) injection Procedure, 80 mg Starting on Thu02/27/21 at 0941, For 1 dose bupivacaine 2020- No [id number] 1mL 1 mL, UT (Marcaine) 02-27 9102 Injection, He alth 0.5 % 14:41: 14:41 Once PRN injection 1 46 :00 Procedure, mL Starting on Thu02/27/21 at 0941, For 1 dose amLODIPine Yes 5mg QD Take 5 mg UT (Norvasc) 5 - by mouth 1 He alth MG tablet 00:00: (one) time 00 each day. simvastatin Yes 10mg QD Take 10 mg UT (Zocor) 10 - by mouth 1 Hea lth MG tablet 00:00: (one) time 00 each day. sertraline Yes 50mg QD Take 50 mg U T (Zoloft) 50 6-21 by mouth 1 He alth MG tablet 00:00: (one) time 00 each day. amLODIPine Yes 5mg QD Take 5 mg UT (Norvasc) 5 6-21 by mouth 1 He alth MG tablet 00:00: (one) time 00 each day. simvastatin 2021-0 Yes 10mg QD Take 10 mg UT (Zocor) 10 6-21 by mouth 1 Hea lth MG tablet 00:00: (one) time 00 each day. sertraline 2021-0 Yes 50mg QD Take 50 mg U T (Zoloft) 50 6-21 by mouth 1 He alth MG tablet 00:00: (one) time 00 each day. amLODIPine 2021-0 Yes 5mg QD Take 5 mg UT (Norvasc) 5 6-21 by mouth 1 He alth MG tablet 00:00: (one) time 00 each day. simvastatin 2021-0 Yes 10mg QD Take 10 mg UT (Zocor) 10 6-21 by mouth 1 Hea lth MG tablet 00:00: (one) time 00 each day. sertraline 2021-0 Yes 50mg QD Take 50 mg U T (Zoloft) 50 6-21 by mouth 1 He alth MG tablet 00:00: (one) time 00 each day. amLODIPine 2021-0 Yes 5mg QD Take 5 mg UT (Norvasc) 5 6-21 by mouth 1 He alth MG tablet 00:00: (one) time 00 each day. simvastatin 2021-0 Yes 10mg QD Take 10 mg UT (Zocor) 10 6-21 by mouth 1 Hea lth MG tablet 00:00: (one) time 00 each day. sertraline 2021-0 Yes 50mg QD Take 50 mg U T (Zoloft) 50 6-21 by mouth 1 He alth MG tablet 00:00: (one) time 00 each day. amLODIPine 2021-0 Yes 5mg QD Take 5 mg UT (Norvasc) 5 6-21 by mouth 1 He alth MG tablet 00:00: (one) time 00 each day. simvastatin 2021-0 Yes 10mg QD Take 10 mg UT (Zocor) 10 6-21 by mouth 1 Hea lth MG tablet 00:00: (one) time 00 each day. sertraline 2021-0 Yes 50mg QD Take 50 mg U T (Zoloft) 50 6-21 by mouth 1 He alth MG tablet 00:00: (one) time 00 each day. amLODIPine 2021-0 Yes 5mg QD Take 5 mg UT (Norvasc) 5 6-21 by mouth 1 He alth MG tablet 00:00: (one) time 00 each day. simvastatin 2021-0 Yes 10mg QD Take 10 mg UT (Zocor) 10 6-21 by mouth 1 Hea lth MG tablet 00:00: (one) time 00 each day. sertraline 2021-0 Yes 50mg QD Take 50 mg U T (Zoloft) 50 6-21 by mouth 1 He alth MG tablet 00:00: (one) time 00 each day. amLODIPine 2021-0 Yes 5mg Take 5 mg Un donaldo 5 mg tablet 6-21 by mouth. ity of 00:00: [place] [facility] SERTraline 1-0 Yes 50mg Take 50 mg U nivers 50 mg 6-21 by mouth. ity of tablet 00:00: [place] [facility] amLODIPine 1-0 Yes 5mg Take 5 mg Un donaldo 5 mg tablet 6-21 by mouth. ity of 00:00: [facility] SERTraline 1-0 Yes 50mg Take 50 mg U nivers 50 mg 6-21 by mouth. ity of tablet 00:00: [facility] amLODIPine 1-0 Yes 5mg Take 5 mg Un donaldo 5 mg tablet 6-21 by mouth. ity of 00:00: [place] [facility] SERTraline 1-0 Yes 50mg Take 50 mg U nivers 50 mg 6-21 by mouth. ity of tablet 00:00: [facility] amLODIPine 2021-0 Yes 5mg Take 5 mg Un donaldo 5 mg tablet 6-21 by mouth. ity of 00:00: [facility] SERTraline 2021-0 Yes 50mg Take 50 mg U nivers 50 mg 6-21 by mouth. ity of tablet 00:00: [place] [facility] amLODIPine 2021-0 Yes 5mg Take 5 mg Un donaldo 5 mg tablet 6-21 by mouth. ity of 00:00: [place] [facility] SERTraline 2021-0 Yes 50mg Take 50 mg U nivers 50 mg 6-21 by mouth. ity of tablet 00:00: [place] [facility] amLODIPine 2021-0 Yes 5mg Take 5 mg Un donaldo 5 mg tablet 6-21 by mouth. ity of 00:00: [facility] SERTraline 2021-0 Yes 50mg Take 50 mg U nivers 50 mg 6-21 by mouth. ity of tablet 00:00: [address] amLODIPine 1-0 Yes 5mg Take 5 mg Un donaldo 5 mg tablet 6-21 by mouth. ity of 00:00: [place] [facility] SERTraline 2021-0 Yes 50mg Take 50 mg U nivers 50 mg 6-21 by mouth. ity of tablet 00:00: [address] metFORMIN 2021-0 Yes 500mg QD Take 500 UT XR 6-03 mg by Health (Glucophage 00:00: mouth 1 -XR) 500 MG 00 (one) time 24 hr each day. tablet metFORMIN 2021-0 Yes 500mg QD Take 500 UT XR 6-03 mg by Health (Glucophage 00:00: mouth 1 -XR) 500 MG 00 (one) time 24 hr each day. tablet metFORMIN 2021-0 Yes 500mg QD Take 500 UT XR 6-03 mg by Health (Glucophage 00:00: mouth 1 -XR) 500 MG 00 (one) time 24 hr each day. tablet metFORMIN 1-0 Yes 500mg QD Take 500 UT XR 6-03 mg by Health (Glucophage 00:00: mouth 1 -XR) 500 MG 00 (one) time 24 hr each day. tablet metFORMIN 2021-0 Yes 500mg QD Take 500 UT XR 6-03 mg by Health (Glucophage 00:00: mouth 1 -XR) 500 MG 00 (one) time 24 hr each day. tablet metFORMIN 2021-0 Yes 500mg QD Take 500 UT XR 6-03 mg by Health (Glucophage 00:00: mouth 1 -XR) 500 MG 00 (one) time 24 hr each day. tablet metformin 1-0 Yes 500mg Take 500 Uni vers ER 500 mg 6-03 mg by ity of 24 hr 00:00: mouth. [place] tablet [facility] metformin 2021-0 Yes 500mg Take 500 Uni vers ER 500 mg 6-03 mg by ity of 24 hr 00:00: mouth. [place] tablet [facility] metformin 2021-0 Yes 500mg Take 500 Uni vers ER 500 mg 6-03 mg by ity of 24 hr 00:00: mouth. [place] tablet [facility] metformin 2021-0 Yes 500mg Take 500 Uni vers ER 500 mg 6-03 mg by ity of 24 hr 00:00: mouth. [place] tablet 00 [facility] metformin 2020-0 Yes 500mg Take 500 Uni vers ER 500 mg 6-03 mg by ity of 24 hr 00:00: mouth. [place] tablet 00 [facility] metformin 1-0 Yes 500mg Take 500 Uni vers ER 500 mg 6-03 mg by ity of 24 hr 00:00: mouth. [place] tablet 00 [facility] metformin 2020-0 Yes 500mg Take 500 Uni vers ER 500 mg 6-03 mg by ity of 24 hr 00:00: mouth. [place] tablet 00 [facility] losartan-hy 202-0 Yes UT droCHLOROth 6-02 Health iazide 00:00: (Hyzaar) 00 100-25 MG tablet losartan-hy 2020-0 Yes UT droCHLOROth 6-02 Health iazide 00:00: (Hyzaar) 00 100-25 MG tablet losartan-hy 2021-0 Yes UT droCHLOROth 6-02 Health iazide 00:00: (Hyzaar) 00 100-25 MG tablet losartan-hy 2020-0 Yes UT droCHLOROth 6-02 Health iazide 00:00: (Hyzaar) 00 100-25 MG tablet losartan-hy 2020-0 Yes UT droCHLOROth 6-02 Health iazide 00:00: (Hyzaar) 00 100-25 MG tablet losartan-hy 2020-0 Yes UT droCHLOROth 6-02 Health iazide 00:00: (Hyzaar) 00 100-25 MG tablet levothyroxi 2020-0 Yes 50ug QD Take 50 UT ne 5-26 mcg by Health (Synthroid, 00:00: mouth 1 Levoxyl) 50 00 (one) time MCG tablet each day. levothyroxi 2020-0 Yes 50ug QD Take 50 UT ne 5-26 mcg by Health (Synthroid, 00:00: mouth 1 Levoxyl) 50 00 (one) time MCG tablet each day. levothyroxi 2020-0 Yes 50ug QD Take 50 UT ne 5-26 mcg by Health (Synthroid, 00:00: mouth 1 Levoxyl) 50 00 (one) time MCG tablet each day. levothyroxi 2020-0 Yes 50ug QD Take 50 UT ne 5-26 mcg by Health (Synthroid, 00:00: mouth 1 Levoxyl) 50 00 (one) time MCG tablet each day. levothyroxi 2020-0 Yes 50ug QD Take 50 UT ne 5-26 mcg by Health (Synthroid, 00:00: mouth 1 Levoxyl) 50 00 (one) time MCG tablet each day. levothyroxi 2020-0 Yes 50ug QD Take 50 UT ne 5-26 mcg by Health (Synthroid, 00:00: mouth 1 Levoxyl) 50 00 (one) time MCG tablet each day. Tresiba 2020-0 Yes UT FlexTouch 4-21 Health 200 UNIT/ML 00:00: injection 00 gabapentin 2020-0 Yes 1200mg Q.5D Take 1,200 UT (Neurontin) 4-21 mg by Health 600 MG 00:00: mouth 2 tablet 00 (two) times a day. Tresiba 2020-0 Yes UT FlexTouch 4-21 Health 200 UNIT/ML 00:00: injection 00 gabapentin 2020-0 Yes 1200mg Q.5D Take 1,200 UT (Neurontin) 4-21 mg by Health 600 MG 00:00: mouth 2 tablet 00 (two) times a day. Tresiba 2020-0 Yes UT FlexTouch 4-21 Health 200 UNIT/ML 00:00: injection 00 gabapentin 2020-0 Yes 1200mg Q.5D Take 1,200 UT (Neurontin) 4-21 mg by Health 600 MG 00:00: mouth 2 tablet 00 (two) times a day. Tresiba 2020-0 Yes UT FlexTouch 4-21 Health 200 UNIT/ML 00:00: injection 00 gabapentin 2020-0 Yes 1200mg Q.5D Take 1,200 UT (Neurontin) 4-21 mg by Health 600 MG 00:00: mouth 2 tablet 00 (two) times a day. Tresiba 2020-0 Yes UT FlexTouch 4-21 Health 200 UNIT/ML 00:00: injection 00 gabapentin 1-0 Yes 1200mg Q.5D Take 1,200 UT (Neurontin) 4-21 mg by Health 600 MG 00:00: mouth 2 tablet 00 (two) times a day. Tresiba 2020-0 Yes UT FlexTouch 4-21 Health 200 UNIT/ML 00:00: injection 00 gabapentin 1-0 Yes 1200mg Q.5D Take 1,200 UT (Neurontin) 4-21 mg by Health 600 MG 00:00: mouth 2 tablet 00 (two) times a day. Trulance 3 1-0 Yes 3mg Take 3 mg UT MG tablet 3-23 by mouth 2 Heal 00:00: (two) 00 times a week. Trulance 3 1-0 Yes 3mg Take 3 mg UT MG tablet 3-23 by mouth 2 Heal 00:00: (two) 00 times a week. Trulance 3 1-0 Yes 3mg Take 3 mg UT MG tablet 3-23 by mouth 2 Heal 00:00: (two) 00 times a week. Trulance 3 2020-0 Yes 3mg Take 3 mg UT MG tablet 3-23 by mouth 2 Heal 00:00: (two) 00 times a week. Trulance 3 1-0 Yes 3mg Take 3 mg UT MG tablet 3-23 by mouth 2 Heal 00:00: (two) 00 times a week. Trulance 3 2020-0 Yes 3mg Take 3 mg UT MG tablet 3-23 by mouth 2 Heal 00:00: (two) 00 times a week. plecanatide 1-0 Yes 3mg Take 3 mg U nivers (TRULANCE) 3-23 by mouth. ity of 3 mg Tab 00:00: [place] [facility] plecanatide 2020-0 Yes 3mg Take 3 mg U nivers (TRULANCE) 3-23 by mouth. ity of 3 mg Tab 00:00: [place] [facility] Branch plecanatide 1-0 Yes 3mg Take 3 mg U nivers (TRULANCE) 3-23 by mouth. ity of 3 mg Tab 00:00: [place] [facility] Branch plecanatide 1-0 Yes 3mg Take 3 mg U nivers (TRULANCE) 3-23 by mouth. ity of 3 mg Tab 00:00: [place] [facility] Branch plecanatide 1-0 Yes 3mg Take 3 mg U nivers (TRULANCE) 3-23 by mouth. ity of 3 mg Tab 00:00: [place] [facility] plecanatide 2021-0 Yes 3mg Take 3 mg U nivers (TRULANCE) 3-23 by mouth. ity of 3 mg Tab 00:00: Medical Branch plecanatide Yes 3mg Take 3 mg U nivers (TRULANCE) 3-23 by mouth. ity of 3 mg Tab 00:00: [place] [facility] AMITRIPTYLI 2019-09 Yes 1 tab Unive rs NE 50 MG 1-03 every AM ity of ORAL TAB 21:35: [place] [address] Medical Branch LEVEMIR 100 2019-09 Yes 100 units U nivers UNIT/ML SC 1-03 every AM ity o f SOLN 21:35: [place] [address] Medical Branch citalopram 2019-09 Yes 40mg Take 40 mg U nivers (CELEXA) 40 1-03 by mouth ity of mg tablet 21:35: daily. [address] Branch simvastatin 2019-09 Yes 40mg Take 40 mg Univers (ZOCOR) 40 1-03 by mouth ity o f mg tablet 21:35: at [place] [address] bedtime. Medical Branch losartan 2019-09 Yes 100mg Take 100 Univ ers (COZAAR) 1-03 mg by ity of 100 mg 21:35: mouth [place] tablet 43 daily. Medical Branch levothyroxi 2019-09 Yes 50ug Take 50 Uni vers ne 1-03 mcg by ity of (SYNTHROID) 21:35: mouth [place] 50 mcg 43 every Medical tablet morning. Branch Liraglutide 2019-09 Yes 1.8mL inject 1.8 Univers (VICTOZA 1-03 mL under ity of 2-ARLENE) 0.6 21:35: the skin [place] as mg/0.1 mL 43 daily. Medical (18 mg/3 Branch mL) injection ALBUTEROL 2019-09 Yes 1{puff} Inhale 1 U nivers SULFATE HFA 1-03 Puff as ity o f INHALE 21:35: needed. [address] Branch HYDROcodone 2019-09 Yes 1{tbl} Take 1 Un donaldo -acetaminop 1-03 tablet by ity of hen 10-325 21:35: [place] 3 [place] tablet 43 (three) Medical times Branch daily as needed. AMITRIPTYLI 2019-09 Yes 1 tab Unive rs NE 50 MG 1-03 every AM ity of ORAL TAB 21:35: [place] [address] Medical Branch simvastatin 2019-09 Yes 40mg Take 40 mg Univers (ZOCOR) 40 1-03 by mouth ity o f mg tablet 21:35: at [place] [address] bedtime. Medical Branch levothyroxi 2019-09 Yes 50ug Take 50 Uni vers ne 1-03 mcg by ity of (SYNTHROID) 21:35: mouth [place] 50 mcg 43 every Medical tablet morning. Branch ALBUTEROL 2019-09 Yes 1{puff} Inhale 1 U nivers SULFATE HFA 1-03 Puff as ity o f INHALE 21:35: needed. [address] HYDROcodone 2019-09 Yes 1{tbl} Take 1 Un donaldo -acetaminop 1-03 tablet by ity of hen 10-325 21:35: mouth 3 [place] tablet 43 (three) Medical times [place] daily as needed. AMITRIPTYLI 2019-09 Yes 1 tab Unive rs NE 50 MG 1-03 every AM ity of ORAL TAB 15:35: [address] Branch simvastatin 2019-09 Yes 40mg Take 40 mg Univers (ZOCOR) 40 1-03 by mouth ity o f mg tablet 15:35: at [place] [address] bedtime. Medical Branch levothyroxi 2019-09 Yes 50ug Take 50 Uni vers ne 1-03 mcg by ity of (SYNTHROID) 15:35: mouth [place] 50 mcg 43 every Medical tablet morning. Branch ALBUTEROL 2019-09 Yes 1{puff} Inhale 1 U nivers SULFATE HFA 1-03 Puff as ity o f INHALE 15:35: needed. [address] HYDROcodone 2019-09 Yes 1{tbl} Take 1 Un donaldo -acetaminop 1-03 tablet by ity of hen 10-325 15:35: mouth 3 [place] tablet 43 (three) Medical times [place] daily as needed. AMITRIPTYLI 2019-09 Yes 1 tab Unive rs NE 50 MG 1-03 every AM ity of ORAL TAB 15:35: [place] [address] Medical Branch simvastatin 2019- Yes 40mg Take 40 mg Univers (ZOCOR) 40 1-03 by mouth ity o f mg tablet 15:35: at [place] [address] bedtime. Medical Branch levothyroxi 2019-09 Yes 50ug Take 50 Uni vers ne 1-03 mcg by ity of (SYNTHROID) 15:35: mouth [place] 50 mcg 43 every Medical tablet morning. Branch ALBUTEROL 2019-09 Yes 1{puff} Inhale 1 U nivers SULFATE HFA 1-03 Puff as ity o f INHALE 15:35: needed. [address] HYDROcodone 2019-09 Yes 1{tbl} Take 1 Un donaldo -acetaminop 1-03 tablet by ity of hen 10-325 15:35: mouth 3 [place] tablet 43 (three) Medical times Branch daily as needed. AMITRIPTYLI 2019-09 Yes 1 tab Unive rs NE 50 MG 1-03 every AM ity of ORAL TAB 15:35: [address] HYDROcodone 2019-09 Yes 1{tbl} Take 1 Un donaldo -acetaminop 1-03 tablet by ity of hen 10-325 15:35: mouth 3 [place] mg tablet 43 (three) Medical times Branch daily as needed. AMITRIPTYLI 2019-09 Yes 1 tab Unive rs NE 50 MG 1-03 every AM ity of ORAL TAB 15:35: [address] HYDROcodone 2019-09 Yes 1{tbl} Take 1 Un donaldo -acetaminop 1-03 tablet by ity of hen 10-325 15:35: mouth 3 [place] mg tablet 43 (three) Medical times Branch daily as needed. AMITRIPTYLI 2019-09 Yes 1 tab Unive rs NE 50 MG 1-03 every AM ity of ORAL TAB 15:35: [address] HYDROcodone 2019-09 Yes 1{tbl} Take 1 Un donaldo -acetaminop 1-03 tablet by ity of hen 10-325 15:35: mouth 3 [place] mg tablet 43 (three) Medical times Branch daily as needed. AMITRIPTYLI 2019-09 Yes 1 tab Unive rs NE 50 MG 1-03 every AM ity of ORAL TAB 15:35: [address] HYDROcodone 2019-09 Yes 1{tbl} Take 1 Un donaldo -acetaminop 1-03 tablet by ity of hen 10-325 15:35: mouth 3 [place] mg tablet 43 (three) Medical times Branch daily as needed. HYDROcodone 2017-09 Yes 1{tbl} [id number] Take 1 [facility] -acetaminop 1-[id number] hen (NORCO) 15:45: 3D mouth 3 [facility] 7.5-325 mg 51 (three) l per tablet times a day. methocarbam 2017-09 Yes 750mg Q.[id number] Take 750 Methodi ol 1-[id number] (ROBAXIN) 15:45: 3D mouth 3 Hospi ta 500 MG 51 (three) l tablet times a day. Takes 500 mg 1.5 TAB. (750 mg) gabapentin 2017-09 Yes 600mg QD Take 600 [facility] (GRALISE) 1-[address] 600 mg 15:45: mouth Hospita tablet 51 daily. l extended release 24 hr montelukast 2017-09 Yes 10mg QD Take 10 mg [facility] (SINGULAIR) 1-[address] 10 mg 15:45: daily. Hospita tablet 51 l esomeprazol 2017-09 Yes 40mg QD Take 40 mg Methodi e (NexIUM) 1-[address] 40 MG 15:45: daily. Hospita capsule 51 l pantoprazol 2017-09 Yes 40mg QD Take 40 mg Methodi e 1-[address] (PROTONIX) 15:45: daily. Hospi ta 40 MG EC 51 l tablet amitriptyli 2017-09 Yes 25mg QD Take 25 mg Methodi ne (ELAVIL) -[address] 25 MG 15:45: every Hospita tablet 51 morning. l losartan-hy 2017-09 Yes 1{tbl} QD Take 1 [facility] drochloroth 1-[address] iazide 15:45: mouth Hospita (HYZAAR) 51 every l 100-25 mg morning. per tablet simvastatin 2017-09 Yes 10mg QD Take 10 mg [facility] (ZOCOR) 10 -[address] MG tablet 15:45: nightly. [facility] l estradiol 2017-09 Yes .5mg QD Take 0.5 Meth bharati (ESTRACE) 1-[address] 0.5 MG 15:45: mouth Hospita tablet 51 daily. l tiZANidine 2017-09 Yes 2mg Q.5D Take 2 mg [facility] (ZANAFLEX) 1-[address] 2 MG tablet 15:45: (two) Hospi ta 51 times a l day as needed for muscle spasms. liraglutide 2017-09 Yes 1.8mg QD Inject 1.8 [facility] (VICTOZA) 1-[address] 0.6 mg/0.1 15:45: the skin [facility] mL (18 mg/3 51 daily. l mL) pen injector insulin 2017-09 Yes 85U QD Inject 85 Metho di degludec 1-[address] (TRESIBA 15:45: under the [facility] FLEXTOUCH 51 skin every l U-100) 100 morning. unit/mL (3 mL) insulin pen aspirin 2017-09 Yes 81mg QD Take 81 mg Meth bharati (ECOTRIN) 1-[address] 81 MG 15:45: daily. Hospita enteric 51 l coated tablet MAGNESIUM 2017-09 Yes 1{tbl} QD Take 1 Meth bharati ORAL 1-[address] 15:45: mouth Hospita 51 daily. l Pure Magnesium albuterol 2017-09 Yes 1{puff} Q.[id number] Inhale 1 [facility] (PROAIR -[id number] HFA,PROVENT 15:45: 3D (three) [facility] [place] 51 times a l HFA,VENT day as N HFA) 90 needed for mcg/actuati wheezing on inhaler or shortness of breath. meloxicam 2017-09 Yes 15mg QD Take 15 mg [facility] (MOBIC) 15 1-[address] mg tablet 15:45: daily. Hospit a 51 l DULoxetine 2017-09 Yes 20mg QD Take 20 mg M ethodi (CYMBALTA) 1-[address] 20 MG 15:45: daily. Hospita capsule 51 l methocarbam 2017-09 Yes 750mg Q8H Take 1 Met hodi ol 1-[address] (ROBAXIN-75 00:00: (750 mg [facility] 0) 750 MG 00 total) by l tablet mouth every 8 (eight) hours as needed for muscle spasms for up to 40 doses. cyclobenzap 2018-0 Yes 10mg Take 1 Univ ers rine 10 mg 2-28 tablet by ity of tablet 00:00: mouth 3 (three) Medical times Branch daily. cyclobenzap 2018-0 Yes 10mg Take 1 Univ ers rine 10 mg 2-28 tablet by ity of tablet 00:00: mouth 3 [place] 00 (three) Medical times Branch daily. cyclobenzap 2018-0 Yes 10mg Take 1 Univ ers rine 10 mg 2-28 tablet by ity of tablet 00:00: mouth 3 00 (three) Medical times Branch daily. cyclobenzap 2018-0 Yes 10mg Take 1 Univ ers rine 10 mg 2-28 tablet by ity of tablet 00:00: mouth 3 00 (three) Medical times Branch daily. cyclobenzap 2018-0 Yes 10mg Take 1 Univ ers rine 10 mg 2-28 tablet by ity of tablet 00:00: mouth 3 00 (three) Medical times Branch daily. cyclobenzap 2018-0 Yes 10mg Take 1 Univ ers rine 10 mg 2-28 tablet by ity of tablet 00:00: mouth 3 00 (three) Medical times Branch daily. cyclobenzap 2018-0 Yes 10mg Take 1 Univ ers rine 10 mg 2-28 tablet by ity of tablet 00:00: mouth 3 00 (three) Medical times Branch daily. cyclobenzap 2018-0 Yes 10mg Take 1 Univ ers rine 10 mg 2-28 tablet by ity of tablet 00:00: mouth 3 (three) Medical times Branch daily. BusPIRone BusPIRone Yes [place] [address] [facility] [address] HCl HCl [facility] Immunizations Ordered Immunization Filled Immunization Date Status Commen ts Source Name Name [place] Sars-cov-2 2020-11-15 [facility] [place] Sars-cov-2 2020-11-15 [facility]00 COVID-19 Sandy 18 & 2020-11-15 [facility]:00 [place] Sars-cov-2 2020-11-15 [facility]00 [place] Sars-cov-2 2020-11-15 [facility]:00 [place] Sars-cov-2 2020-11-15 [facility]:00 Influenza Virus 2020-06-25 Completed Univers[facility] y of Vaccine Recomb Quad 00:00:00 [place] [facility] IM, Preserv and ABX Branc h Free 18-64 YRS Influenza Virus 2020-06-25 Completed Universit y of Vaccine Recomb Quad 00:00:00 [place] [facility] IM, Preserv and ABX Branc h Free 18-64 YRS Influenza Virus 2020-06-25 Completed Universit y of Vaccine Recomb Quad 00:00:00 [place] [facility] IM, Preserv and ABX Branc h Free 18-64 YRS Influenza Virus 2020-06-25 Completed Universit y of Vaccine Recomb Quad 00:00:00 [place] [facility] IM, Preserv and ABX Branc h Free 18-64 YRS Influenza Virus 2020-06-25 Completed Universit y of Vaccine Recomb Quad 00:00:00 [place] [facility] IM, Preserv and ABX Branc h Free 18-64 YRS Influenza Virus 2020-06-25 Completed Universit y of Vaccine Recomb Quad 00:00:00 [place] [facility] IM, Preserv and ABX Branc h Free 18-64 YRS Influenza Virus 2020-06-25 Completed Universit y of Vaccine Recomb Quad 00:00:00 [place] [facility] IM, Preserv and ABX Branc h Free 18-64 YRS Influenza Virus 2020-06-25 Completed Universit y of Vaccine Recomb Quad 00:00:00 [place] [facility] IM, Preserv and ABX Branc h Free 18-64 YRS Influenza, 2020-06-25 Completed [facility] quadrivalent, 00:00:00 injectable, preservative free Influenza, 2020-06-25 Completed [facility] quadrivalent, 00:00:00 injectable, preservative free Influenza, 2020-06-25 Completed [facility] quadrivalent, 00:00:00 injectable, preservative free Influenza, 2020-06-25 Completed [facility] quadrivalent, 00:00:00 injectable, preservative free Influenza, 2020-06-25 Completed [facility] recombinant, 00:00:00 quadrivalent, injectable, preservative free Influenza, 2020-06-25 Completed [facility] recombinant, 00:00:00 quadrivalent, injectable, preservative free Influenza High Dose 2020-05-10 Completed Unive rsity of Quad 00:00:00 [facility] Influenza High Dose 2020-05-10 Completed Unive rsity of 00:00:00 [facility] Influenza High Dose 2020-05-10 Completed Unive rsity of Quad 00:00:00 [facility] Influenza High Dose 2020-05-10 Completed Unive rsity of 00:00:00 [facility] Influenza High Dose 2020-05-10 Completed Unive rsity of Quad 00:00:00 [facility] Influenza High Dose 2020-05-10 Completed Unive rsity of 00:00:00 [facility] Influenza High Dose 2020-05-10 Completed Unive rsity of Quad 00:00:00 [facility] Influenza High Dose 2020-05-10 Completed Unive rsity of 00:00:00 [facility] Influenza High Dose 2020-05-10 Completed Unive rsity of [place] 00:00:00 [facility] Influenza High Dose 2020-05-10 Completed Unive rsity of 00:00:00 [facility] Influenza High Dose 2020-05-10 Completed Unive rsity of [place] 00:00:00 [facility] Influenza High Dose 2020-05-10 Completed Unive rsity of 00:00:00 [facility] Influenza High Dose 2020-05-10 Completed Unive rsity of [place] 00:00:00 [facility] Influenza High Dose 2020-05-10 Completed Unive rsity of 00:00:00 [facility] Influenza High Dose 2020-05-10 Completed Unive rsity of [place] 00:00:00 [facility] Influenza High Dose 2020-05-10 Completed Unive rsity of 00:00:00 [facility] Influenza, High Dose 2020-05-10 [facility]00 Influenza, High Dose 2020-05-10 [facility] 00:00:00 Influenza, High Dose 2020-05-10 [facility] 00:00:00 Influenza, High Dose 2020-05-10 [facility]pleted [facility] 00:00:00 Influenza, High Dose 2020-05-10 [facility]pleted [facility], 00:00:00 Preservative Free Influenza, High Dose 2020-05-10 [facility], 00:00:00 Preservative Free Zoster Vaccine 2019-08-20 Completed University of Recombinant 00:00:00 [facility] Zoster Vaccine 2019-08-20 Completed University of Recombinant 00:00:00 [facility] Zoster Vaccine 2019-08-20 Completed University of Recombinant 00:00:00 [facility] Zoster Vaccine 2019-08-20 Completed University of Recombinant 00:00:00 [facility] Zoster Vaccine 2019-08-20 Completed University of Recombinant 00:00:00 [facility] Zoster Vaccine 2019-08-20 Completed University of Recombinant 00:00:00 [facility] Zoster Vaccine 2019-08-20 Completed University of Recombinant 00:00:00 [facility] Zoster Vaccine 2019-08-20 Completed University of Recombinant 00:00:00 [facility] Zoster, Recombinant 2019-08-20 [facility] Zoster, Recombinant 2019-08-20 [facility] 00:[facility]:00 Zoster, Recombinant 2019-08-20 [facility]pleted [facility] 00:[facility]:00 Zoster, Recombinant 2019-08-20 [facility]pleted [facility] 00:00:00 Zoster, Recombinant 2019-08-20 [facility]pleted [facility] 00:00:00 Zoster, Recombinant 2019-08-20 [facility]pleted [facility] 00:00:00 MMR 2019-04-30 Completed University of 00:00:00 [facility] MMR 2019-04-30 Completed University of 00:00:00 [facility] MMR 2019-04-30 Completed University of 00:00:00 [facility] MMR 2019-04-30 Completed University of 00:00:00 [facility] MMR 2019-04-30 Completed University of 00:00:00 [facility] MMR 2019-04-30 Completed University of 00:00:00 [facility] MMR 2019-04-30 Completed University of 00:00:00 [facility] MMR 2019-04-30 Completed University of 00:00:00 [facility] MMR 2019-04-30 [facility] 00[facility]:00 MMR 2019-04-30 [facility] 00[facility]00:00 MMR 2019-04-30 [facility] 00:00:00 MMR 2019-04-30 [facility]pleted [facility] 00[facility]00:00 MMR 2019-04-30 [facility] 00:00:00 MMR 2019-04-30 [facility] 00:00:00 Zoster Vaccine 2019 Completed University of Recombinant 00:00:00 [facility] Zoster Vaccine 2019 Completed University of Recombinant 00:00:00 [facility] Zoster Vaccine 2019 Completed University of Recombinant 00:00:00 [facility] Zoster Vaccine 2019 Completed University of Recombinant 00:00:00 [facility] Zoster Vaccine 2019 Completed University of Recombinant 00:00:00 [facility] Zoster Vaccine 2019 Completed University of Recombinant 00:00:00 [facility] Zoster Vaccine 2019 Completed University of Recombinant 00:00:00 [facility] Zoster Vaccine 2019 Completed University of Recombinant 00:00:00 [facility] Zoster, Recombinant 2019 [facility]pleted [facility]:00 Zoster, Recombinant 2019 [facility]pleted [facility] 00:00:00 Zoster, Recombinant 2019 Completed [facility] 00:00:00 Zoster, Recombinant 2019 Completed [facility] 00:00:00 Zoster, Recombinant 2019 Completed [facility] 00:00:00 Zoster, Recombinant 2019 [facility]pleted [facility] 00:00:00 Pneumococcal 2013-09-10 [facility] Polysaccharide PPV23 00:00:00 Pneumococcal 2013-09-10 Completed [facility] Polysaccharide PPV23 00:00:00 Pneumococcal 2013-09-10 Completed [facility] Polysaccharide PPV23 00:00:00 Pneumococcal 2013-09-10 Completed [facility] Polysaccharide PPV23 00:00:00 Pneumococcal 2013-09-10 Completed [facility] Polysaccharide PPV23 00:00:00 Pneumococcal 2013-09-10 Completed [facility] Polysaccharide PPV23 00:00:00 Influenza Virus 2009-08-27 Completed Universit y of Vaccine 00:00:00 [facility] Influenza Virus 2009-08-27 Completed Universit y of Vaccine 00:00:00 [facility] Influenza Virus 2009-08-27 Completed Universit y of Vaccine 00:00:00 [facility] Influenza Virus 2009-08-27 Completed Universit y of Vaccine 00:00:00 [facility] Influenza Virus 2009-08-27 Completed Universit y of Vaccine 00:00:00 [facility] Influenza Virus 2009-08-27 Completed Universit y of Vaccine 00:00:00 [facility] Influenza Virus 2009-08-27 Completed Universit y of Vaccine 00:00:00 [facility] Influenza Virus 2009-08-27 Completed Universit y of Vaccine 00:00:00 [facility] Influenza, 2009-08-27 [facility] Unspecified 00:00:00 Influenza, 2009-08-27 [facility]pleted [facility] Unspecified 00:00:00 Influenza, 2009-08-27 Completed [facility] Unspecified 00:00:00 Influenza, 2009-08-27 Completed [facility] Unspecified 00:00:00 Influenza, 2009-08-27 Completed [facility] Unspecified 00:00:00 Influenza, 2009-08-27 Completed [facility] Unspecified 00:00:00 Vital Signs Vital Name Observation Time Observation Value Comments Source Systolic blood 2021-09-11 20:47:00 139 mm[Hg] [facility] Diastolic blood 2021-09-11 20:47:00 77 mm[Hg] [facility] Heart rate 2021-09-11 20:47:00 85 /min [facility] Body temperature 2021-09-11 20:47:00 36.28 Kelly [facility] Body height 2021-09-11 20:47:00 162.6 cm [facility] Body weight 2021-09-11 20:47:00 90.13 [facility] BMI 2021-09-11 20:47:00 34.11 [facility] 2021-09-06 18:00:00 131 mm[Hg] Univer sity of pressure [facility] Diastolic blood 2021-09-06 18:00:00 60 mm[Hg] Unive rsity of pressure [facility] Heart rate 2021-09-06 18:00:00 74 /min Universi ty of [facility] Respiratory rate 2021-09-06 18:00:00 18 /min [facility] Oxygen saturation in 2021-09-06 18:00:00 95 /min [facility] Arterial blood by [facility] Pulse oximetry Branch Body temperature 2021-09-06 16:34:00 36.22 Kelly Univ ersity of [facility] Body weight 2021-09-06 16:34:00 87.544 kg [facility] [place] [facility] BMI 2021-09-06 16:34:00 33.13 kg/m2 Universi ty of [facility] Systolic blood 2021-09-06 15:59:00 151 mm[Hg] Univer sity of pressure [facility] Diastolic blood 2021-09-06 15:59:00 83 mm[Hg] Unive rsity of pressure [facility] Branch Heart rate 2021-09-06 15:58:00 83 /min Universi ty of [facility] Body temperature 2021-09-06 15:58:00 37 Kelly Univ ersity of [facility] Respiratory rate 2021-09-06 15:58:00 21 /min Univ ersity of [facility] Branch Body height 2021-09-06 15:58:00 162.6 cm Universi ty of [facility] Body weight 2021-09-06 15:58:00 87.544 kg [facility] BMI 2021-09-06 15:58:00 33.13 kg/m2 [facility] Oxygen saturation in 2021-09-06 15:58:00 95 /min 95-96. University of Arterial blood by [facility] Pulse oximetry Branch Systolic blood 2021-08-07 16:37:00 125 mm[Hg] Univer sity of [facility] Diastolic blood 2021-08-07 16:37:00 99 mm[Hg] Unive rsity of [facility] Heart rate 2021-08-07 16:37:00 80 /min [facility] Body temperature 2021-08-07 16:37:00 37.17 Kelly [facility] Respiratory rate 2021-08-07 16:37:00 18 /min Univ [facility] Body height 2021-08-07 16:37:00 162.6 cm [facility] Body weight 2021-08-07 16:37:00 89.359 kg [facility] BMI 2021-08-07 16:37:00 33.81 kg/m2 [facility] Oxygen saturation in 2021-08-07 16:37:00 99 /min University of Arterial blood by [facility] Pulse oximetry Branch Systolic blood 2021-06-10 19:15:00 167 mm[Hg] Univer sity of [facility] Diastolic blood 2021-06-10 19:15:00 65 mm[Hg] Unive rsity of [facility] Heart rate 2021-06-10 19:15:00 84 /min [facility] Body temperature 2021-06-10 19:15:00 36.67 Kelly [facility] Respiratory rate 2021-06-10 19:15:00 18 /min [facility] Body weight 2021-06-10 19:15:00 90.266 kg [facility] BMI 2021-06-10 19:15:00 34.16 kg/m2 [facility] Oxygen saturation in 2021-06-10 19:15:00 96 /min University of Arterial blood by [facility] Pulse oximetry Branch Body height 2021-06-05 13:40:00 [facility] 2021-06-05 13:40:00 90[facility]719 [facility] BMI 2021-06-05 13:40:00 34.33 kg[facility]m2 [facility] Systolic blood 2021-05-18 15:36:00 176 mm[Hg] Univer sity [facility] Diastolic blood 2021-05-18 15:36:00 78 mm[Hg] Unive [facility] [place] Heart rate 2021-05-18 15:36:00 79 /min [facility] Body temperature 2021-05-18 15:36:00 37.11 Kelly [facility] 2021-05-18 15:36:00 20 /min [facility] Body weight 2021-05-18 15:36:00 90.266 kg [facility] BMI 2021-05-18 15:36:00 34.16 kg/m2 [facility] Body height 2021-02-27 13:49:00 162.6 cm [facility] Body weight 2021-02-27 13:49:00 89.359 [facility] BMI 2021-02-27 13:49:00 33.81 kg[facility]m2 [facility] Body height 2021-02-27 13:49:00 162.6 cm [facility] Body weight 2021-02-27 13:49:00 89.359 [facility] BMI 2021-02-27 13:49:00 33.81 kg[facility]m2 [facility] Procedures Procedure Date / Time Performing Clinician Source Performed INSURANCE CORRESPONDENCE 2021-10-01 06:01:00 Doctor Unassigned, [facility] [place] [facility] TROPONIN I 2021-09-06 17:00:00 [facility] COMP. METABOLIC PANEL 2021-09-06 17:00:00 [id number] CBC WITH DIFF 2021-09-06 17:00:00 [facility] XR CHEST 1 VW 2021-09-06 16:55:24 [facility] RAPID INFLUENZA A/B 2021-09-06 16:49:00 Marilia Dooley [facility] COVID-19 (ID NOW RAPID 2021-09-06 16:37:00 Marilia Dooley [facility] TESTING) Medical Branch NOTICE OF PRIVACY 2021-09-06 16:26:49 Doctor Unassigned, [facility] [place] [facility] CONSENT/REFUSAL FOR 2021-09-06 16:26:38 [facility] [place] [facility] CONSENT/REFUSAL FOR 2021-08-07 16:30:44 Doctor Unacherie[facility] [place] [facility] COVID-19 (ID NOW RAPID 2021-06-10 20:29:00 Singer [facility] TEST[facility]) Medical Branch POCT TEST 2021-06-10 20:27:00 Kendrick Tolliver [facility] Branch URINALYSIS 2021-06-10 20:17:00 Singer [facility] COMP. METABOLIC PANEL 2021-06-10 20:10:00 Kendrick Tolliver [facility] ([id number]) Medical Branch CBC WITH DIFF 2021-06-10 20:10:00 Singer [facility] CT ABDOMEN PELVIS WO 2021-06-10 20:05:13 Kendrick Tolliver [facility] CONTRAST Medical Branch ASSIGNMENT OF BENEFITS 2021-06-10 19:31:43 Doctor Unassalison, [facility] [place] [facility] CONSENT/REFUSAL FOR 2021-06-10 19:11:30 [facility] [place] [facility] COVID-19 (ID NOW RAPID 2021-05-18 16:15:00 Ricardo [facility] Medical Branch RAPID STREP SCREEN FOR 2021-05-18 16:15:00 [facility] GROUP A Medical Branch NOTICE OF PRIVACY 2021-05-18 15:33:21 Doctor Unacherie [facility] [place] [facility] CONSENT/REFUSAL FOR 2021-05-18 15:31:16 Doctor [facility]li[facility] [place] [facility] NH ARTHROCENTESIS 2021-02-27 14:41:46 Josh Bennett [place] [facility] ASPIR&/INJ MAJOR JT/BURSA W/O US XR LUMBAR SPINE AP 2020-11-13 14:56:47 Royce Rivers [facility] LATERAL FLEXION AND EXTENSION Plan of Care Planned Activity Planned Date Details Comments Source Future Scheduled 2021-09-19 COVID-19 VACCINE (1) Met [facility] Test 04:08:39 [code = COVID-19 VACCINE (1)] Future Scheduled 2021-09-19 Hepatitis C screening [facility] Test 04:08:39 (procedure) [code = 589768788] Future Scheduled 2021-09-19 Screening for [facility] Test 04:08:39 malignant neoplasm of cervix (procedure) [code = 814238204] Future Scheduled 2021-09-19 BREAST CANCER [facility] Test 04:08:39 SCREENING [code = BREAST CANCER SCREENING] Future Scheduled 2021-09-19 COLONOSCOPY SCREENING [facility] Test 04:08:39 [code = COLONOSCOPY SCREENING] Future Scheduled 2021-09-19 INFLUENZA VACCINE Method [facility] Test 04:08:39 [code = INFLUENZA VACCINE] Encounters Start End Encounter Admission Attending Care Care Encounter Source Date/Time Date/Time Type Type Clinicians Facility Department ID 2021-10-02 Outpatient De Anda, [facility] 14:26:56 Baljeet [id number] 2021-10-02 Outpatient De Anda, [facility] 14:26:22 Baljeet [id number] [facility] 2021-10-02 Outpatient De Anda, [facility] 14:17:54 Baljeet [id number] [facility] 2021-10-02 Outpatient Guerrero, [facility] 14:09:58 Vira [id number] [facility] 2021-10-02 Outpatient Millender, [facility] 11:05:50 Tawana [id number] [facility] 2021-10-02 Outpatient Millender, [facility] [id number] [facility] 11:03:36 Tawana 28539 [facility] l Outpati ent Clinics 2021-07-09 Emergency [facility] [id number] Univers 03:44:02 ity [facility] 2021-07-08 Emergency [facility] [id number] Univers 21:59:46 [facility] 2021-07-06 Inpatient R [facility] [id number] Univers 00:05:05 PEE [facility] 2021-07-05 Outpatient R [facility] [id number] Univers 16:33:55 [facility] 2021-04-[address] [facility] [id number] [place] 09:44:24 JOSH Pham [facility] 2021-02-25 Outpatient ED [facility] [id number] [place] 10:35:57 [facility] 2021-11-18 2021-11-18 Outpatient R RADIOLOGY [facility] [id number] Univers 00:00:00 00:00:00 [id number] ity [facility] 2021-10-24 2021-10-24 Outpatient R SANTI [facility] [id number] Univers 09:45:00 09:45:00 MIDDLE AMANA [id number] [facility] 2021-10-24 2021-10-24 Outpatient R SANTI [facility] [id number] Univers 09:45:00 09:45:00 [facility] 2021-10-01 2021-10-01 Orders Doctor ROYCE [id number] Univers 00:00:00 00:00:00 Only Unassigned, AVA [id number] ity of [place] [facility] [id number] Claudio as [id number] [address] 2021-09-11 2021-09-11 Office LORENE Gupta [facility] 1.2.840.114 [id number] [place] 15:00:00 15:21:08 Visit Shinil SUGAR [id number] He alth [facility] [id number] [address] [id number] AND 4 WOMENS 2021-09-06 2021-09-06 Emergency Miah [facility] [id number] Univers 10:43:00 12:44:00 Marilia Ledezma KARLENE [id number] ity of [place] 4.2.7.2.686 [facility] [id number] [facility] 084 Chrisman 2021-09-06 2021-09-06 [facility] [id number] Univers 09:40:00 10:58:27 [facility] 2021-09-06 2021-09-06 [facility] 1.2.840.114 [id number] Univers 09:40:00 10:00:00 Care [facility] [id number] it y of [place] 4.2.7.2.686 Claudio as JOANN?BLEA [phone] [address] MEDICAL OFFICE BUILDING 2021-09-06 2021-09-06 Outpatient R [facility] [id number] Univers 09:40:00 09:40:00 [id number] ity [facility] 2021-09-06 2021-09-06 [facility] [id number] Univers 09:40:00 09:40:00 BRITTNI [facility] 2021-09-06 2021-09-06 Orders Doctor ROYCE 1.2.840.114 [id number] Univers 00:00:00 00:00:00 Only Unassigned, AV[facility] [id number] [facility] [id number] Claudio as [phone] [facility] 009 Branch 2021-08-14 2021-08-14 Outpatient R HALEY [facility] [id number] Univers 10:00:00 10:00:00 BRITTANEY [id number] [facility] 2021-08-14 2021-08-14 [facility] [id number] Univers 10:00:00 10:00:00 BRITTANEY [facility] 2021-08-07 2021-08-07 Emergency X GLENDY [facility] ERT [id number] Univers 10:39:00 11:30:00 RICARDO [facility] 2021-08-07 2021-08-07 Emergency [facility] [id number] Univers 10:39:00 11:30:00 Ricardo SOLER [id number] i ty of [place] 4.2.7.2.686 [facility] [id number] [address] 2021-07-04 2021-07-04 Outpatient Christine [facility] [id number] Univers 14:30:00 14:30:00 ALISTAIR [id number] [facility] 2021-06-13 2021-06-13 Outpatient Christine [facility] [id number] Univers 08:00:00 08:00:00 ALISTAIR [id number] [facility] 2021-06-13 2021-06-13 Outpatient Christine [facility] [id number] Univers 08:00:00 08:00:00 ALISTAIR [facility] 2021-06-12 2021-06-12 EXT [facility] OP Zoltan EXT MSRDP 1.2.840.1 [id number] [place] 00:00:00 00:00:00 Josh pham [id number] [facility] 9.2.7.2.686 [id number] 2021-06-10 2021-06-10 Emergency [facility] [id number] Univers 14:17:00 16:42:00 Kendrick Soler [id number] i ty of [place] 4.2.7.2.686 [facility] [id number] [address] 2021-06-07 2021-06-07 [facility] [id number] Univers 10:00:00 10:00:00 BRITTANEY [id number] [facility] 2021-06-07 2021-06-07 Outpatient Christine [facility] [id number] Univers 10:00:00 10:00:00 BRITTANEY [facility] 2021-06-05 2021-06-05 Office Zoltan [facility] 1.2.840.114 [id number] [place] 08:01:02 09:18:56 Visit e, Josh LUCERO [id number] Health MEDICAL 9.2.7.2.686 [address] 2 [id number] 2021-05-18 2021-05-18 Emergency Vega, [facility] [id number] [facility] 10:38:00 13:19:00 Ricardo S Afton [id number] i ty of [place] 4.2.7.2.686 [facility] [id number] [facility] 084 Branch 2021-05-18 2021-05-18 Orders Doctor ROYCE 1.2.840.114 [id number] Univers 00:00:00 00:00:00 Only Unassigned, AVA [id number] ity of [place] [facility] [id number] [facility] [id number] [facility] 009 Branch 2021-03-26 2021-03-26 Orders Sherron [facility] 1.2.840.114 [id number] [place] 00:00:00 00:00:00 Only Armond NIC [id number] H [facility] MEDICAL 9.2.7.2.686 [address] 4 [id number] 2021-03-26 2021-03-26 Orders Sherron [facility] 1.2.840.114 [id number] 00:00:00 00:00:00 Only Armond NIC [id number] MEDICAL 9.2.7.2.686 PLAZA 5 [id number] 2021-02-27 2021-02-27 Office Euceda-Cardoso [facility] 1.2.840.114 [id number] [place] 08:29:48 10:00:26 Visit e, Josh LUCERO [id number] Health MEDICAL 9.2.7.2.686 PLAZA 3 [id number] 2021-02-27 2021-02-27 Office Euceda-Cardoso [facility] 1.2.840.114 [id number] 08:29:48 10:00:26 Visit e, Josh NIC [id number] MEDICAL 9.2.7.2.686 PLA[address] 9 [id number] 2020-12-14 2020-12-14 Outpatient JUSTIN Monroe [id number] [facility] 09:09:00 09:09:00 Francisco [id number] [facility] 2020-11-13 2020-11-13 Hospital Royce Rivers 1.2.840.1 [id number] Methodi 08:27:59 23:59:00 Encounter Maryann [id number] 3.430.2.7 Hospit a .[id number] l .8 2020-11-13 2020-11-13 Travel 1.2.840.1 [id number] [id number] Methodi 00:00:00 00:00:[id number] 3.430.2.7 0.2.7.3.698 Ho spita .3.011364 084.8 l .8 2020-11-13 2020-11-13 Transcribe Royce Rviers 1.2.840.1 [id number] Methodi 00:00:00 00:00:00 Orders Maryann [id number] 3.430.2.7 Hospit a .3.731162 l .8 2020-11-09 2020-11-09 Orders Doctor CRANE 1.2.840.114 [id number] 00:00:00 00:00:00 Only Unassigned, [facility] 350.1.13.10 [place] [facility] 4.2.7.2.686 [id number] 2020-10-05 2020-10-05 Telephone INDRA Dooley [id number] [id number] 00:00:00 00:00:00 [facility] [id number] Surgical 4.2.7.2.686 Specialti [id number] [address] [place] 2020-09-27 2020-09-27 [facility] INDRA Hancock 1.2.840.114 [id number] 08:21:38 23:59:00 Encounter Pee Pagan [facility] [id number] Surgical 4.2.7.2.686 Specialti [id number] es 809 [place] 2020-09-27 2020-09-27 Office Santi [facility] [id number] [id number] 07:50:24 08:32:23 Visit Pee Sanz [id number] Surgical 4.2.7.2.686 Specialti [id number] es 198 [place] 2020-09-27 2020-09-27 Outpatient Christine HANCOCK [facility] [id number] Univers 08:00:00 08:00:00 PEE [id number] [facility] 2020-09-27 2020-09-27 [facility]patient [facility] [id number] Univers 08:00:00 08:00:00 [facility] 2020-09-24 2020-09-24 Orders Doctor ROYCE 1.2.840.114 [id number] 00:00:00 00:00:00 Only Unassigned, [place] [id number] [place] [facility] 4.2.7.2.686 [id number] 2020-08-23 2020-08-23 [facility] [id number] Univers 08:45:00 08:45:00 PEE [id number] [facility] 2020-08-23 2020-08-23 [facility] [id number] Univers 08:45:00 08:45:00 PEE [facility] 2020-08-22 2020-08-22 [facility] [id number] Univers 13:15:00 13:15:00 PEE [id number] [facility] 2020-08-22 2020-08-22 [facility] [id number] Univers 13:15:00 13:15:00 PEE [facility] 2020-07-25 2020-07-25 [facility] [id number] Univers 14:00:00 14:00:00 PEE [facility] 2020-07-17 2020-07-17 Outpatient R MIAH [facility] [id number] Univers 11:15:00 11:15:00 PRICILLA ity of [facility] 2020-07-17 2020-07-17 Outpatient R MIAH [facility] [id number] Univers 11:15:00 11:15:00 PRICILLA ity [facility] 2020-07-06 2020-07-06 Outpatient R [facility] [id number] Univers 08:45:00 08:45:00 ity of [facility] 2020-07-06 2020-07-06 Outpatient R SANTI [facility] [id number] Univers 08:45:00 08:45:00 PEE ity [facility] 2020-06-29 2020-06-29 Outpatient R [facility] [id number] Univers 08:15:00 08:15:00 [id number] ity [facility] 2020-06-29 2020-06-29 Outpatient R SANTI [facility] [id number] Univers 08:15:00 08:15:00 PEE [facility] 2020-06-25 2020-06-25 Outpatient MAE, [facility] [id number] Univers 10:15:00 10:15:00 SENDIL [id number] ity [facility] 2020-06-22 2020-06-22 Outpatient R [facility] [id number] Univers 10:30:00 10:30:00 [id number] ity [facility] 2020-06-22 2020-06-22 Outpatient R SANTI [facility] [id number] Univers 10:30:00 10:30:00 PEE ity [facility] 2020-06-20 2020-06-20 Outpatient R SANTI [facility] [id number] Univers 14:45:00 14:45:00 PEE [id number] ity [facility] 2020-06-20 2020-06-20 Outpatient R SANTI [facility] [id number] Univers 14:45:00 14:45:00 PEE ity [facility] 2020-06-07 2020-06-07 Outpatient R SANTI [facility] [id number] Univers 09:15:00 09:15:00 PEE ity [facility] 2020-06-07 2020-06-07 Outpatient Christine HANCOCK [facility] [id number] Univers 09:15:00 09:15:00 PEE y [facility] 2020-05-30 2020-05-30 Outpatient R SANTI [facility] [id number] Univers 13:00:00 13:00:00 PEE [id number] ity [facility] 2020-05-30 2020-05-30 Outpatient R SANTI [facility] [id number] Univers 13:00:00 13:00:00 PEE [facility] 2020-05-18 2020-05-18 Outpatient R SANTI [facility] [id number] Univers [facility]:45[facility] 2020-05[facility]18 Outpatient [facility] [id number] Univers 07:30:00 07:30:00 [id number] [facility] 2020[facility] 2020-05-09 Outpatient Christine HANCOCK [facility] [id number] Univers 14:15:00 14:15:00 [facility] 2020-[facility] 2020-05-09 Outpatient Christine HANCOCK [facility] [id number] Univers 14:15:00 [facility]15[facility] 2020-05-08 2020-05-08 Outpatient R [facility] [id number] Univers 12:00:00 [facility]00[facility] 2020-05-08 Outpatient Christine HANCOCK [facility] [id number] Univers 12:00:00 12:00:00 PEE [facility] 2020-05-03 2020-05-03 Outpatient R SANTI [facility] [id number] Univers 08:00:00 08:00:00 PEE [id number] ity [facility] 2020-05-03 2020-05-03 Outpatient R SANTI [facility] [id number] Univers 08:00:00 08:00:00 PEE [facility] 2020-04-12 2020-04-12 Outpatient R SANTI [facility] [id number] Univers 10:45:00 10:45:00 PEE ity [facility] 2020-04-12 2020-04-12 Outpatient R SANTI [facility] [id number] Univers 10:45:00 10:45:00 PEE [facility] 2020-04-10 2020-04-10 Outpatient R [facility] [id number] Univers 09:00:00 09:00:00 ity [facility] 2020-04-10 2020-04-10 Outpatient R ASNTI [facility] [id number] Univers 09:00:00 09:00:00 PEE [facility] 2020-02-29 2020-02-29 Outpatient R SANTI [facility] [id number] Univers 13:45:00 13:45:00 PEE [id number] [facility] 2020-02-29 2020-02-29 Outpatient R SANTI [facility] [id number] Univers 13:45:00 13:45:00 PEE [facility] 2020-02-27 2020-02-27 Outpatient R SANTI [facility] [id number] Univers 09:42:49 12:45:00 PEE [facility] 2020-02-13 2020-02-13 Outpatient R SANTI [facility] [id number] Univers 14:06:46 23:59:00 PEE [facility] 2020-02-13 2020-02-13 Outpatient SANTI [facility] [id number] Univers 14:00:00 [facility]00[facility] 2019-12-29 [facility] [id number] [facility] 09:49:00 09:49:[address] [facility] l Medicine Outpat[facility] ent Clinics 2019-12-27 2019-12-27 [facility] [id number] [facility] [address] 09:02:00 09:02:[address] [facility] l Medicine Outpati ent Clinics 2019-12-14 2019-12-14 [facility] [id number] 14:36:00 14:36:[address] [facility] l Medicine Outpati ent Clinics 2019-11-18 2019-11-21 Inpatient PRANAV, [address] 06:22:00 13:46:00 ABINGDON 2019-11-08 2019-11-08 [facility] [id number] 09:58:00 09:58:00 [facility] Medicine Medicine Outpati ent Clinics 2019-11-08 2019-11-08 [facility] [id number] 09:56:00 09:56:00 [facility] Medicine l Medicine Outpati ent Clinics 2019-10-24 2019-10-24 [facility] [id number] [facility] 21:19:00 21:19:00 [facility] Medicine l Medicine Outpati ent Clinics 2019-10-24 2019-10-24 [facility] [id number] 21:06:00 21:06:00 [facility] Medicine Medicine Outpati ent Clinics 2019-10-24 2019-10-24 [facility] [id number] 09:30:00 09:30:00 [facility] Medicine Medicine Outpati ent Clinics 2019-09-13 2019-09-13 [facility] [id number] [address] 13:20:00 13:20:00 [facility] Medicine Medicine Outpati ent Clinics 2019-08-26 2019-08-26 [facility] [id number] [facility] 08:45:00 08:45:00 [facility] Medicine Medicine Outpati ent Clinics 2019-08-22 2019-08-22 [facility] [id number] 01:08:00 01:08:00 [facility] Medicine l Medicine Outpati ent Clinics 2019-08-17 2019-08-17 [facility] [id number] 09:51:00 09:51:00 [facility] Medicine Medicine Outpati ent Clinics 2019-08-16 2019-08-16 [facility] [id number] [facility] 13:20:00 13:20:[address] [facility] Medicine l Medicine Outpati ent Clinics 2019-07-21 2019-07-21 [facility] [id number] 14:47:00 14:47:[address] [facility] Medicine l Medicine Outpati ent Clinics 2019-07-15 2019-07-15 [facility] [id number] 10:09:00 10:09:00 t [facility] Medicine l Medicine Outpati ent Clinics 2019-07-15 2019-07-15 [facility] [id number] 08:40:00 08:40:[address] [facility] Medicine l Medicine Outpati ent Clinics 2019-07-11 2019-07-11 [facility] [id number] 13:46:00 13:46:[address] [facility] Medicine l Medicine Outpati ent Clinics 2019-06-28 2019-06-28 [facility] [id number] 02:54:00 02:54:[address] [facility] Medicine Medicine Outpati ent Clinics 2019-06-24 2019-06-24 [facility] [id number] 09:00:00 09:00:[address] [facility] Medicine l Medicine Outpati ent Clinics 2019-06-23 2019-06-23 [facility] [id number] 15:00:00 15:00:[address] [facility] Medicine Medicine Outpati ent Clinics 2019-05-30 2019-05-30 [facility] [id number] 15:13:00 15:13:[address] [facility] Medicine l Medicine Outpati ent Clinics 2019-05-05 2019-05-05 [facility] [id number] [facility] 15:33:00 15:33:00 t [facility] Medicine Outpati ent Clinics 2019-04-28 2019-04-28 [facility] [id number] 09:02:00 09:02:00 t [facility] Medicine Outpati ent Clinics 2019-04-26 2019-04-26 [facility] [id number] 13:43:00 13:43:00 t [facility] Medicine Outpati ent Clinics 2019-04-25 2019-04-25 [facility] [id number] 22:56:00 22:56:00 t [facility] Medicine Outpati ent Clinics 2019-04-24 2019-04-24 [facility] [id number] 11:41:00 11:41:00 t [facility] Medicine Outpati ent Clinics 2019-04-15 2019-04-15 [facility] [id number] 09:07:00 09:07:00 t [facility] Medicine Outpati ent Clinics 2019-04-15 2019-04-15 [facility] [id number] 08:00:00 08:00:00 t [facility] Medicine Outpati ent Clinics 2019-03-24 2019-03-24 Outpatient zzzAmy zzzLuisana [id number] [facility] 09:27:00 09:27:00 [facility] Clin[facility] 2019-03-16 2019-03-16 [facility] [id number] 09:16:00 09:16:00 t [facility] Medicine Outpati ent Clinics 2019-02-22 2019-02-22 [facility] [id number] 09:03:00 09:03:00 t [facility] Medicine Outpati ent Clinics 2019-02-18 2019-02-18 [facility] [id number] 18:38:00 18:38:00 [facility] 2019-02-18 2019-02-18 Outpatient Reynaldo Jacobst [id number] 15:06:00 15:06:00 [facility] 2019-02-16 2019-02-16 Outpatient Reynaldo Jacobst [id number] 16:06:00 16:06:00 [facility] 2019-02-15 2019-02-15 Outpatient Reynaldo Jacobst [id number] [facility] 15:20:00 15:20:00 [facility] Results Test Description Test Time Test Comments Results Result Comments Source TROPONIN I 2021-09-06 17:47:53 Test Item Value Reference Range Interpretation Comme nts TROPONIN I (test code = 0.003 ng/mL See_Comment [Au tomated message] The [id number]) system which ge nerated this result tra nsmitted reference range : <=0.034. The reference r sharon was not used to int erpret this result as normal/abnormal . ARIANA (test code = ARIANA) Reference (Normal) Range (defined by the 99th percentile reference limit): <= 0.034 ng/mL Note: Cardiac troponin begins to rise 3-4 hours after the onset of ischemia. Repeat in 4-6 hours if the sample was drawn within 3-4 hours of the onset of the symptom and found normal. Diagnosis of myocardial injury is made with acute changes in cTn concentrations with at least one serial sample above the 99th percentile upper reference limit (URL), taken together with the patient's clinical presentation. Biotin has been reported to cause a negative bias, interpret results relative to patient's use of biotin. Lab Interpretation Normal (test code = 50599-8) [facility]. METABOLIC PANEL ([id number])2021-09-06 17:39:28 Test Item Value Reference Range Interpretation Comments NA (test code = 137 mmol/L 135-145 8447512310) K (test code = 4.6 mmol/L 3.5-5.0 7092913606) CL (test code = 105 mmol/L 98-108 6801911546) CO2 TOTAL (test code = 22 mmol/L 23-31 L 7040836885) AGAP (test code = 2-16 5358090925) BUN (test code = 16 mg/dL 7-23 6426666108) GLUCOSE (test code = 126 mg/dL 70-110 H 6846610583) CREATININE (test code = 0.43 mg/dL 0.50-1.04 L 9010379404) TOTAL BILI (test code = 0.5 mg/dL 0.1-1.1 7141893910) CALCIUM (test code = 9.4 mg/dL 8.6-10.6 5521283337) T PROTEIN (test code = 8.1 g/dL 6.3-8.2 6339364638) ALBUMIN (test code = 4.6 g/dL 3.5-5.0 3037084217) ALK PHOS (test code = 71 U/L 34-122 4277234239) ALTv (test code = 20 U/L 5-35 2-6) AST(SGOT) (test code = 38 U/L 13-40 2845570387) eGFR (test code = mL/min/1.73m2 2204571429) ARIANA (test code = ARIANA) Association of Glomerular Filtration Rate (GFR) and Staging of Kidney Disease* + --+ --+ ------+| GFR (mL/min/1.73 m2) ?| With Kidney Damage ?| ?Without Kidney Damage+ --------+ --------+ +| ?>90 ?| ?Stage one ?| ? Normal ?+ ---+ ---+ -------+| ?60-89 ?| ?Stage two ?| ? Decreased GFR ? + --+ --+ ------+| ?30-59 ?| ?Stage three ?| ? Stage three ? + --+ --+ ------+| ?15-29 ?| ?Stage four ? | ? Stage four ?+ ---+ ---+ -------+| ?<15 (or dialysis) ? ?| ?Stage five ? | ? Stage five ?+ ---+ ---+ -------+ *Each stage assumes the associated GFR level has been in effect for at least three months. ?Stages 1 to 5, with or without kidney disease, indicate chronic kidney disease. Notes: Determination of stages one and two (with eGFR >59mL/min/1.73 m2) requires estimation of kidney damage for at least three months as defined by structural or functional abnormalities of the kidney, manifested by either:Pathological abnormalities or Markers of kidney damage (including abnormalities in the composition of the blood or urine or abnormalities in imaging tests). Lab Interpretation Abnormal (test code = 22868-0) [facility] WITH [id number] 17:13:49 Test Item Value Reference Range Interpretation Comments WBC (test code = See_Comment H [Automated 6690-2) message] The sy stem which generated this result transmitted reference range : 4.30 - 11.10 10*3/?L. The reference range was not used to interpret this result as normal/abnormal . RBC (test code = See_Comment [Automated 789-8) message] The sy stem which generated this result transmitted reference range : 3.93 - 5.25 10*6/?L. The reference range was not used to interpret this result as normal/abnormal . HGB (test code = 13.9 g/dL 11.6-15.0 718-7) HCT (test code = 41.6 % 35.7-45.2 4544-3) MCV (test code = 85.2 fL 80.6-95.5 787-2) MCH (test code = 28.5 pg 25.9-32.8 785-6) MCHC (test code = 33.4 g/dL 31.6-35.1 786-4) RDW-SD (test code = 40.8 fL 39.0-49.9 78031-1) RDW-CV (test code = 13.2 % 12.0-15.5 788-0) PLT (test code = See_Comment H [Automated 777-3) message] The sy stem which generated this result transmitted reference range : 166 - 358 10*3/ ?L. The reference r sharon was not used to interpret this result as normal/abnormal . MPV (test code = 9.4 fL 9.5-12.9 L 87970-2) NRBC/100 WBC (test See_Comment [Automat ed code = 6630842518) message] The system which generated this result transmitted reference range : 0.0 - 10.0 /100 WBCs. The refer ence range was not u sed to interpret th is result as normal/abnormal . NRBC x10^3 (test code <0.01 See_Comment [Auto mated = 0027917809) message] The s ystem which generated this result transmitted reference range : 10*3/?L. The reference range was not used to interpret this result as normal/abnormal . GRAN MAT (NEUT) % 66.8 % (test code = 770-8) IMM GRAN % (test code 0.50 % = 7238323722) LYMPH % (test code = 23.6 % 736-9) MONO % (test code = 5.7 % 5905-5) EOS % (test code = 2.5 % 713-8) BASO % (test code = 0.9 % 706-2) GRAN MAT x10^3(ANC) 7.77 10*3/uL 1.88-7.09 H (test code = 8250753081) IMM GRAN x10^3 (test 0.06 10*3/uL 0.00-0.06 code = 8935996108) LYMPH x10^3 (test code 2.74 10*3/uL 1.32-3.29 = 731-0) MONO x10^3 (test code 0.66 10*3/uL 0.33-0.92 = 742-7) EOS x10^3 (test code = 0.29 10*3/uL 0.03-0.39 711-2) BASO x10^3 (test code 0.10 10*3/uL 0.01-0.07 H = 704-7) Lab Interpretation Abnormal (test code = 24908-8) [facility]. METABOLIC PANEL ([id number])2021-06-10 20:53:01 Test Item Value Reference Range Interpretation Comments NA (test code = 134 mmol/L 135-145 L 2474233896) K (test code = 4.8 mmol/L 3.5-5.0 1795532046) CL (test code = 100 mmol/L 98-108 2643714485) CO2 TOTAL (test code = 26 mmol/L 23-31 1224616734) AGAP (test code = 2-16 2578365746) BUN (test code = 14 mg/dL 7-23 6751340994) GLUCOSE (test code = 338 mg/dL 70-110 H 2822282567) CREATININE (test code = 0.57 mg/dL 0.50-1.04 3445425331) TOTAL BILI (test code = 0.6 mg/dL 0.1-1.3 1445717562) CALCIUM (test code = 9.7 mg/dL 8.6-10.6 3177339311) T PROTEIN (test code = 7.3 g/dL 6.3-8.2 2186900472) ALBUMIN (test code = 4.3 g/dL 3.5-5.0 8673349426) ALK PHOS (test code = 54 U/L 34-122 7867241050) ALTv (test code = 25 U/L 5-35 1742-6) AST(SGOT) (test code = 42 U/L 13-40 H 1972760445) eGFR (test code = mL/min/1.73m2 7870119632) ARIANA (test code = ARIANA) Association of Glomerular Filtration Rate (GFR) and Staging of Kidney Disease* + --+ --+ ------+| GFR (mL/min/1.73 m2) ?| With Kidney Damage ?| ?Without Kidney Damage+ --------+ --------+ +| ?>90 ?| ?Stage one ?| ? Normal ?+ ---+ ---+ -------+| ?60-89 ?| ?Stage two ?| ? Decreased GFR ? + --+ --+ ------+| ?30-59 ?| ?Stage three ?| ? Stage three ? + --+ --+ ------+| ?15-29 ?| ?Stage four ? | ? Stage four ?+ ---+ ---+ -------+| ?<15 (or dialysis) ? ?| ?Stage five ? | ? Stage five ?+ ---+ ---+ -------+ *Each stage assumes the associated GFR level has been in effect for at least three months. ?Stages 1 to 5, with or without kidney disease, indicate chronic kidney disease. Notes: Determination of stages one and two (with eGFR >59mL/min/1.73 m2) requires estimation of kidney damage for at least three months as defined by structural or functional abnormalities of the kidney, manifested by either:Pathological abnormalities or Markers of kidney damage (including abnormalities in the composition of the blood or urine or abnormalities in imaging tests). Lab Interpretation Abnormal (test code = 17374-0) [facility] WITH [id number] 20:30:56 Test Item Value Reference Range Interpretation Comments WBC (test code = See_Comment [Automated 4501-2) message] The sy stem which generated this result transmitted reference range : 4.30 - 11.10 10*3/?L. The reference range was not used to interpret this result as normal/abnormal . RBC (test code = See_Comment [Automated 789-8) message] The sy stem which generated this result transmitted reference range : 3.93 - 5.25 10*6/?L. The reference range was not used to interpret this result as normal/abnormal . HGB (test code = 13.0 g/dL 11.6-15.0 718-7) HCT (test code = 38.8 % 35.7-45.2 4544-3) MCV (test code = 88.4 fL 80.6-95.5 787-2) MCH (test code = 29.6 pg 25.9-32.8 785-6) MCHC (test code = 33.5 g/dL 31.6-35.1 786-4) RDW-SD (test code = 40.9 fL 39.0-49.9 43134-2) RDW-CV (test code = 12.7 % 12.0-15.5 788-0) PLT (test code = See_Comment [Automated 777-3) message] The sy stem which generated this result transmitted reference range : 166 - 358 10*3/ ?L. The reference r sharon was not used to interpret this result as normal/abnormal . MPV (test code = 10.6 fL 9.5-12.9 25073-9) NRBC/100 WBC (test See_Comment [Automat ed code = 7207822886) message] The system which generated this result transmitted reference range : 0.0 - 10.0 /100 WBCs. The refer ence range was not u sed to interpret th is result as normal/abnormal . NRBC x10^3 (test code <0.01 See_Comment [Auto mated = 7286075879) message] The s ystem which generated this result transmitted reference range : 10*3/?L. The reference range was not used to interpret this result as normal/abnormal . GRAN MAT (NEUT) % 64.0 % (test code = 770-8) IMM GRAN % (test code 0.50 % = 3483770337) LYMPH % (test code = 25.4 % 736-9) MONO % (test code = 6.8 % 5905-5) EOS % (test code = 2.5 % 713-8) BASO % (test code = 0.8 % 706-2) GRAN MAT x10^3(ANC) 6.50 10*3/uL 1.88-7.09 (test code = 4323180329) IMM GRAN x10^3 (test 0.05 10*3/uL 0.00-0.06 code = 0672807782) LYMPH x10^3 (test code 2.58 10*3/uL 1.32-3.29 = 731-0) MONO x10^3 (test code 0.69 10*3/uL 0.33-0.92 = 742-7) EOS x10^3 (test code = 0.25 10*3/uL 0.03-0.39 711-2) BASO x10^3 (test code 0.08 10*3/uL 0.01-0.07 H = 704-7) Lab Interpretation Abnormal (test code = 11114-8) [id number] 20:27:00 Test Item Value Reference Range Interpretation Comments POCT PREG (test code = 1605) negative On board controls acceptable with present C Line (test code = 3574) POCT PREG LOT # (test code = 3575) [id number] POCT PREG TEST DATE (test 09/06/2022 code = 3576) Lab Interpretation (test code = Normal 87155-9) [facility] STREP SCREEN FOR GROUP [id number] 18:03:58 Test Item Value Reference Range Interpretation Comments Streptococcus pyogenes (group A) Negative Negative antigen (test code = 02711-9) Lab Interpretation (test code = Normal 84654-0) [facility] RAPID TESTING)2021-05-18 17:36:30 Test Item Value Reference Range Interpretation Comments SARS-CoV-2 Rapid ID NOW Not Detected Not Detected (test code = 62238-6) ARIANA (test code = ARIANA) ID NOW COVID-19 Assay is an isothermal nucleic acid amplification test intended for the qualitative detection of nucleic acid from SARS-CoV-2 viral RNA in nasopharyngeal ([employer]) specimens. It is used under Emergency Use Authorization (EUA) by FDA. The limit of detection (LOD) of the assay is 125 Genome Equivalents/mL. A positive result is indicative of the presence of SARS-CoV-2 RNA. ?Clinical correlation with patient history and other diagnostic information is necessary to determine patient infection status. A negative (Not Detected) result does not preclude SARS-CoV-2 infection. In patients with a high suspicion of SARS-CoV-2 infection, negative results should be treated as presumptive negative and a new specimen should be tested with alternative nucleic acid amplification molecular test. Invalid: Please collect a new specimen for repeat patient testing if clinically indicated. Lab Interpretation Normal (test code = 42732-5) [facility] L greater trochanteric bursa 2021-02-27 14:41:46Josh Bennett MD ? ? 02/27/2021 ?9:56 AML Inj/Asp: L greater trochanteric bursa on 02/27/2021 9:41 AMIndications: painDetails: 22 G needle, lateral approachMedications: 1 mL bupivacaine 0.5 %; 80 mg triamcinolone acetonide 40 MG/MLOutcome: tolerated well, no immediate complicationsProcedure, treatment alternatives, risks and benefits explained, specific risks discussed. Immediately prior to procedure a time out was called to verify the correct patient, procedure, equipment, rn support services and site/side marked as required. Patient was prepped and draped in the usual sterile fashion.[facility]- XR HIP W/PEL UNI 2+V [id number] 10:05:00 [facility] 1965 Sex: F Patient Name: ARI GODOY Unit No: [id number] EXAMS: CPT CODE: [id number] XR HIP W/[place] UNI 2+[place] [address] AP pelvis with frog-leg view left hip LOCATION: T18 INDICATION: Pain Postsurgical changes L5-S1. Bony alignment is normal. No fracture, dislocation , osteolytic or osteoblastic lesions are identified. Soft tissues unremarkable. Probable chronic irregularity greater trochanter left hip. IMPRESSION: No acute findings. at 1005 Reported and signed by: Royce Mrose MD CC: Francisco Andrea MD Technologist: Archana Marley, RT(R) Transcrpt Date/Tm/Trnsp: 12/14/2020 (1005) RanjithJMATTHEW Orig Print D/T: S: 12/14/2020 (1009) [facility] NAME: ARI GODOY [id number] [facility] [address] PHYS: [place] [address] : 1965 AGE: 55 SEX: F LOC: Z.ZRAD PHONE #: [phone] EXAM DATE: 12/14/2020 STATUS: REG CLI FAX #: [phone] RADIOLOGY NO: PAGE 1 Signed Report"
[2021-10-22] MEDS ORDERED: ASPIRIN 81 MG CHEWABLE TABLET ONE (19:27)
[2021-10-22] MEDS ORDERED: NA CHLORIDE 0.9% 1,000 ML ONE (19:28)
[2021-10-22 19:46] LABS: Absolute Lymphocytes (CBC) 3.9 K/uL (0.7-4.9); Hematocrit 36.7 % (36.0-45.0); MPV 8.3 fL (7.6-11.3); RBC Red Blood Cell Count 4.19 M/uL (3.86-4.86)
[2021-10-22 19:47] LABS: Protime INR 0.95
[2021-10-22 19:51] LABS: Blood Morphology Comment NOT SEEN (NOT SEEN); Platelet Estimate ADEQ; White Blood Cell Scan OK (OK)
[2021-10-22 19:56] LABS: BUN Blood Urea Nitrogen 19 mg/dL (7-18); Bicarbonate 27 mmol/L (21-32); Glucose Level 214 mg/dL (74-106); Lipase 105 U/L (73-393); Sodium Level 139 mmol/L (136-145)
[2021-10-22 20:10] LABS: Potassium 3.7 mmol/L (3.5-5.1)
[2021-10-22 20:22] LABS: ALT/SGPT 25 U/L (12-78); Alkaline Phosphatase 78 U/L (45-117); Bilirubin Direct < 0.1 mg/dL (0-0.2); Bilirubin Total 0.2 mg/dL (0.2-1.0); NT PRO-BNP 39 pg/mL (<125)
[2021-10-22 20:28] LABS: Albumin 3.4 g/dL (3.4-5.0)
[2021-10-22 20:41] LABS: Protein, Total 7.3 g/dL (6.4-8.2)
[2021-10-22 20:42] LABS: AST/SGOT 28 U/L (15-37); Magnesium 1.5 mg/dL (1.8-2.4)
[2021-10-22] MEDS ORDERED: Magnesium Sulfate 2gm IVPB 2 G/50 ML BAG IV ONE (21:27)
--- NOTE | 2021-10-22 22:39 | ER ---
Nurse's Notes [facility] Name: Charlotte Ruvalcaba Age: 56 yrs Sex: Female : 1965 Arrival Date: 10/22/2021 Time: 18:42 Bed 20 Private MD: Diagnosis: Chest pain, unspecified-wall;Hypomagnesemia;Type 1 diabetes mellitus with hyperglycemia;Chronic pain, not elsewhere classified;Atelectasis Presentation: 10/22 18:50 Chief complaint: Patient states: Chest pressure for 2 days, got worse this evening. + ll1 dizzy, SOB and nausea. Coronavirus screen: Vaccine status: Patient reports receiving the 2nd dose of the covid vaccine. Client denies travel out of the [place] in the last 14 days. difficulty breathing, shortness of breath, Client presents with at least one sign or symptom that may indicate coronavirus-19. Standard/surgical mask placed on the client. Ebola Screen: Patient denies travel to an Ebola-affected area in the 21 days before illness onset. Initial Sepsis Screen: Does the patient meet any 2 criteria? HR > 90 bpm. No. Patient's initial sepsis screen is negative. Does the patient have a suspected source of infection? No. Patient's initial sepsis screen is negative. Risk Assessment: Do you want to hurt yourself or someone else? Patient reports no desire to harm self or others. Onset of symptoms was October 21, 2021. 18:50 Method Of Arrival: Ambulatory ll1 18:50 Acuity: RASHAD 3 ll1 Triage Assessment: 18:52 General: Appears uncomfortable, Behavior is calm, cooperative, appropriate for age. ll1 Pain: Complains of pain in chest Quality of pain is described as pressure. Cardiovascular: Reports chest pain, lightheadedness, nausea, shortness of breath. Respiratory: Reports shortness of breath. GI: Reports nausea. Historical: - Allergies: 18:50 NKDA; ll1 - PMHx: 18:50 COPD; Diabetes - IDDM; chronic pain, sees pain doctor; Asthma; Hypothyroidism; ll1 Hypertension; Gout; breast cancer; - PSHx: 18:50 back SX; ll1 - Immunization history:: Client reports receiving the 2nd dose of the Covid vaccine. - Social history:: Smoking status: Patient/guardian denies using tobacco. - Family history:: Mother has/had. Screenin:11 Abuse screen: Denies threats or abuse. Denies injuries from another. Nutritional tk1 screening: No deficits noted. Tuberculosis screening: No symptoms or risk factors identified. Fall Risk None identified. Assessment: 19:11 General: Appears comfortable, well groomed, well developed, well nourished, Behavior is tk1 calm, cooperative, appropriate for age. Pain: Complains of pain in chest Pain does not radiate. Pain currently is 9 out of 10 on a pain scale. Quality of pain is described as heavy, sharp, Pain began suddenly, 4 hours ago. Is continuous, Alleviated by nothing. Neuro: Level of Consciousness is awake, alert, obeys commands, Oriented to person, place, time, situation, Appropriate for age Rim Roller Setter are equal bilaterally Moves all extremities. Full function Gait is steady, Speech is normal, Facial symmetry appears normal, Pupils are PERRLA, Cardiovascular: Reports chest pain, nausea, Denies shortness of breath, Heart tones S1 S2 present Rhythm is sinus rhythm. Respiratory: No deficits noted. Airway is patent Respiratory effort is even, unlabored, Respiratory pattern is regular, symmetrical, Breath sounds are clear bilaterally. GI: No deficits noted. No signs and/or symptoms were reported involving the gastrointestinal system. : No deficits noted. No signs and/or symptoms were reported regarding the genitourinary system. EENT: No deficits noted. No signs and/or symptoms were reported regarding the EENT system. Derm: No deficits noted. Skin is healthy with good turgor, Skin is dry, Skin is pink, warm \\T\\ dry. Skin temperature is warm. Musculoskeletal: No deficits noted. No signs and/or symptoms reported regarding the musculoskeletal system. 19:34 Reassessment: Dr. Puente in for exam. tk1 20:30 Reassessment: No changes from previously documented assessment. Patient and/or family tk1 updated on plan of care and expected duration. Pain level reassessed. Patient is alert, oriented x 3, equal unlabored respirations, skin warm/dry/pink. Pain: Complains of pain in chest Pain does not radiate. Pain currently is 5 out of 10 on a pain scale. Quality of pain is described as heavy. 22:06 Reassessment: Awaiting repeat Troponin results. VSS. Patient AAO x3, respirations even tk1 and unlabored. Denies needs at present. 22:41 Reassessment: D/C per MD order. Discharge/Prescription instructions given to patient. tk1 Verbalized understanding. 22:53 Reassessment: Patient refused prescription. States, she sees a pain management doctor, tk1 therefore: she can not get a narcotic prescription from anyone else. Dr. Puente updated. Prescription place in [facility]. Vital Signs: 18:50 BP 165 / 71; Pulse 93; Resp 18; Temp 98.4; Pulse Ox 95% on R/A; Weight 89.36 kg; Height ll1 5 ft. 4 in. (162.56 cm); Pain 9/10; 19:21 BP 143 / 59 Supine (auto/reg); Pulse 81 MON; Resp 18; Temp 98.1(O); Pulse Ox 94% on tk1 R/A; Pain 9/10; 19:58 BP 140 / 56 RA Supine (auto/lg); Pulse 83 MON; Resp 16 S; Pulse Ox 93% on R/A; Pain tk1 /; 21:00 BP 142 / 68 RA Supine (auto/reg); Pulse 81 MON; Resp 18 S; Pulse Ox 94% on R/A; Pain tk1 3/10; 22:06 BP 157 / 95 RA Supine (auto/reg); Pulse 87 MON; Resp 18 S; Pulse Ox 96% on R/A; Pain tk1 3/10; 18:50 Body Mass Index 33.81 (89.36 kg, 162.56 cm) ll1 Vitals: 19:11 Cardiac Rhythm Assessment Regular Sinus rhythm. tk1 22:06 Cardiac Rhythm Assessment Regular Sinus rhythm. tk1 [place] Coma Score: 19:11 Eye Response: spontaneous(4). Verbal Response: oriented(5). Motor Response: obeys tk1 commands(6). Total: 15. ED Course: 18:42 Patient arrived in ED. ds1 18:50 Arm band placed on Patient placed in an exam room, on a stretcher. ll1 18:52 Triage completed. ll1 19:10 Brandi Talley is Primary Nurse. tk1 19:11 Awaiting ED provider evaluation. tk1 19:11 Patient has correct armband on for positive identification. Bed in low position. Call tk1 light in reach. Side rails up X2. campus monitor on. Pulse ox on. NIBP on. Warm blanket given. 19:11 Inserted saline lock: 20 gauge in left antecubital area, using aseptic technique. Blood tk1 collected. Missed attempt(s): 20 gauge in right antecubital area. Bleeding controlled, band aid applied, catheter tip intact. Patient maintains SpO2 saturation greater than 95% on room air. 19:18 Efren Puente MD is Attending Physician. edilson 19:18 Basic Metabolic Panel Sent. tk1 19:18 LFT's Sent. tk1 19:18 CBC with Diff Sent. tk1 19:18 Magnesium Sent. tk1 19:18 NT PRO-BNP Sent. tk1 19:18 PT-INR Sent. tk1 19:18 Troponin HS Sent. tk1 19:29 SARS-COV-2 RT PCR Sent. tk1 19:29 SARS-COV-2 RT PCR (Document "Date of Onset" if Symptomatic) Sent. tk1 19:31 Basic Metabolic Panel Sent. tk1 19:31 CBC with Diff Sent. tk1 19:31 LFT's Sent. tk1 19:32 Magnesium Sent. tk1 19:32 NT PRO-BNP Sent. tk1 19:32 PT-INR Sent. tk1 19:32 Troponin HS Sent. tk1 19:57 Troponin High Sensitivity Sent. tk1 19:57 Lipase Sent. tk1 19:58 SARS-COV-2 RT PCR Sent. tk1 20:09 XRAY Chest (1 view) In Process Unspecified. EDMS 20:27 US Extremity Venous W Compression Jose E In Process Unspecified. EDMS 20:28 Troponin High Sensitivity Sent. tk1 20:54 CT Chest For PE Angio In Process Unspecified. EDMS 22:06 IV is patent, with fluids infusing freely. tk1 22:35 Varghese Hoover MD is Referral Physician. edilson 22:35 Troponin High Sensitivity: redraw at 9 pm Sent. tk1 22:41 No provider procedures requiring assistance completed. IV discontinued, intact, tk1 bleeding controlled, No redness/swelling at site. Pressure dressing applied. Administered Medications: 19:30 Drug: Aspirin Chewable Tablet 162 mg Route: PO; tk1 22:09 Follow up: Response: No adverse reaction tk1 19:31 Drug: NS 0.9% 1000 ml Route: IV; Rate: 100 ml/hr; Infused Over: 10 hrs; Site: left tk1 antecubital; Delivery: Primary tubing; 22:41 Follow up: IV Status: Order to discontinue infusion; IV Intake: 325ml tk1 21:30 Drug: Magnesium Sulfate 2 grams Route: IVPB; Rate: 2 mg/hr; Infused Over: 1 hrs; Site: tk1 left antecubital; Delivery: Primary tubing; 22:35 Follow up: Response: No adverse reaction; IV Status: Completed infusion; IV Intake: tk1 100ml Intake: 22:35 IV: 100ml; Total: 100ml. tk1 22:41 IV: 325ml; Total: 425ml. tk1 Outcome: 22:38 Discharge ordered by . edilson 22:41 Discharged to home ambulatory. tk1 22:41 Condition: stable 22:41 Discharge instructions given to patient, Instructed on discharge instructions, follow up and referral plans. medication usage, Demonstrated understanding of instructions, follow-up care, medications, Prescriptions given X 1. 22:55 Patient left the ED. tk1 Signatures: Dispatcher [employer] EDMS Efren Puente MD MD cha Sanford, Demi ds1 Romulo Flores, RN RN ll1 Brandi Talley tk1 Corrections: (The following items were deleted from the chart) 19:36 19:31 D-DIMER+COAG.LAB.BRZ drawn and sent. tk1 EDMS 19:36 19:31 LIPASE+C.LAB.BRZ drawn and sent. tk1 EDMS
--- NOTE | 2021-10-22 22:39 | EDPHYS ---
Physician Documentation [facility] Name: Charlotte Ruvalcaba Age: 56 yrs Sex: Female : 1965 Arrival Date: 10/22/2021 Time: 18:42 Bed 20 Private MD: ED Physician Efren Puente HPI: 10/22 19:36 This 56 yrs old Black Female presents to ER via Ambulatory with complaints of Chest edilson Pain. 19:36 The patient or guardian reports chest pain that is located primarily in the substernal edilson area, anterior chest wall, bilaterally. Onset: 2 day(s) ago. The pain does not radiate. Associated signs and symptoms: The patient has no apparent associated signs or symptoms. The chest pain is described as sharp. Duration: The patient or guardian reports multiple episodes, that wax and wane. Modifying factors: The symptoms are alleviated by remaining still, the symptoms are aggravated by breathing, movement, palpation of area, twisting torso. Severity of pain: At its worst the pain was mild moderate in the emergency department the pain is unchanged. The patient has not experienced similar symptoms in the past. Historical: - Allergies: 18:50 NKDA; ll1 - PMHx: 18:50 COPD; Diabetes - IDDM; chronic pain, sees pain doctor; Asthma; Hypothyroidism; ll1 Hypertension; Gout; breast cancer; - PSHx: 18:50 back SX; ll1 - Immunization history:: Client reports receiving the 2nd dose of the Covid vaccine. - Social history:: Smoking status: Patient/guardian denies using tobacco. - Family history:: Mother has/had. ROS: 19:36 Constitutional: Negative for fever, chills, and weight loss, Eyes: Negative for injury, edilson pain, redness, and discharge, ENT: Negative for injury, pain, and discharge, Neck: Negative for injury, pain, and swelling, Respiratory: Negative for shortness of breath, cough, wheezing, and pleuritic chest pain, Abdomen/GI: Negative for abdominal pain, nausea, vomiting, diarrhea, and constipation, Back: Negative for injury and pain, : Negative for injury, bleeding, discharge, and swelling, MS/Extremity: Negative for injury and deformity, Skin: Negative for injury, rash, and discoloration, Neuro: Negative for headache, weakness, numbness, tingling, and seizure, Psych: Negative for depression, anxiety, suicide ideation, homicidal ideation, and hallucinations, Allergy/Immunology: Negative for hives, rash, and allergies, Endocrine: Negative for neck swelling, polydipsia, polyuria, polyphagia, and marked weight changes. 19:36 Cardiovascular: Positive for chest pain, of the chest. Exam: 19:36 Constitutional: This is a well developed, well nourished patient who is awake, alert, edilson and in no acute distress. Head/Face: Normocephalic, atraumatic. Eyes: Pupils equal round and reactive to light, extra-ocular motions intact. Lids and lashes normal. Conjunctiva and sclera are non-icteric and not injected. Cornea within normal limits. Periorbital areas with no swelling, redness, or edema. ENT: Nares patent. No nasal discharge, no septal abnormalities noted. Tympanic membranes are normal and external auditory canals are clear. Oropharynx with no redness, swelling, or masses, exudates, or evidence of obstruction, uvula midline. Mucous membranes moist. Neck: Trachea midline, no thyromegaly or masses palpated, and no cervical lymphadenopathy. Supple, full range of motion without nuchal rigidity, or vertebral point tenderness. No Meningismus. Cardiovascular: Regular rate and rhythm with a normal S1 and S2. No gallops, murmurs, or rubs. Normal PMI, no JVD. No pulse deficits. Respiratory: Lungs have equal breath sounds bilaterally, clear to auscultation and percussion. No rales, rhonchi or wheezes noted. No increased work of breathing, no retractions or nasal flaring. Abdomen/GI: Soft, non-tender, with normal bowel sounds. No distension or tympany. No guarding or rebound. No evidence of tenderness throughout. Back: No spinal tenderness. No costovertebral tenderness. Full range of motion. Female : Normal external genitalia. Skin: Warm, dry with normal turgor. Normal color with no rashes, no lesions, and no evidence of cellulitis. MS/ Extremity: Pulses equal, no cyanosis. Neurovascular intact. Full, normal range of motion. Neuro: Awake and alert, GCS 15, oriented to person, place, time, and situation. Cranial nerves II-XII grossly intact. Motor strength 5/5 in all extremities. Sensory grossly intact. Cerebellar exam normal. Normal gait. Psych: Awake, alert, with orientation to person, place and time. Behavior, mood, and affect are within normal limits. 19:36 Neck: Exam negative for 19:36 Chest/axilla: Inspection: normal, Palpation: tenderness, that is moderate, of the anterior aspect of right upper chest, anterior aspect of left upper chest, mid-sternal area, right breast and left breast. 19:36 ECG was reviewed by the Attending Physician. Vital Signs: 18:50 BP 165 / 71; Pulse 93; Resp 18; Temp 98.4; Pulse Ox 95% on R/A; Weight 89.36 kg; Height ll1 5 ft. 4 in. (162.56 cm); Pain 9/10; 19:21 BP 143 / 59 Supine (auto/reg); Pulse 81 MON; Resp 18; Temp 98.1(O); Pulse Ox 94% on tk1 R/A; Pain 9/10; 19:58 BP 140 / 56 RA Supine (auto/lg); Pulse 83 MON; Resp 16 S; Pulse Ox 93% on R/A; Pain tk1 9/10; 21:00 BP 142 / 68 RA Supine (auto/reg); Pulse 81 MON; Resp 18 S; Pulse Ox 94% on R/A; Pain tk1 3/10; 22:06 BP 157 / 95 RA Supine (auto/reg); Pulse 87 MON; Resp 18 S; Pulse Ox 96% on R/A; Pain tk1 3/10; 18:50 Body Mass Index 33.81 (89.36 kg, 162.56 cm) ll1 [place] Coma Score: 19:11 Eye Response: spontaneous(4). Verbal Response: oriented(5). Motor Response: obeys tk1 commands(6). Total: 15. MDM: 19:18 Patient medically screened. edilson 19:40 Differential diagnosis: abnormal EKG, acute myocardial infarction, acute pericarditis, edilson anxiety, coronary artery disease chest wall pain, Cholelithiasis esophagitis, pancreatitis, pericarditis, pleurisy, pulmonary embolus, stable angina, unstable angina. HEART Score: History: Slightly Suspicious (0), ECG: Normal (0), Age: > 45 and < 65 years (1), Risk Factors: > or = 3 Risk factors for atherosclerotic disease (2), [Hypercholesterolemia] [Hypertension] [DM] [+ Family HX] [Obesity] Troponin: < or = 1 x Normal Limit (0). The patient was given aspirin in the Emergency Department. The patient's deep vein thrombosis risk score was calculated as follows: Total Score: 0. This patient was found to be at low risk for a deep vein thrombosis by using the Well's assessment criteria. The patient's pulmonary embolism risk score was calculated as follows: Total Score: 0-2 points. This patient was found to be at low risk for a pulmonary embolism by using the Well's assessment criteria. CORBY Risk Score: TOTAL SCORE = 0. Data reviewed: vital signs, nurses notes, lab test result(s), EKG, radiologic studies, plain films. 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 Test interpretation: by ED physician or midlevel provider: ECG, plain radiologic studies. Counseling: I had a detailed discussion with the patient and/or guardian regarding: the historical points, exam findings, and any diagnostic results supporting the discharge/admit diagnosis, the presence of at least one elevated blood pressure reading (>120/80) during this emergency department visit, lab results, radiology results. 10/22 19:17 Order name: Basic Metabolic Panel; Complete Time: 20:59 tk1 10/22 19:17 Order name: CBC with Diff; Complete Time: 19:54 tk1 10/22 19:17 Order name: LFT's; Complete Time: 20:59 tk1 10/22 19:17 Order name: Magnesium; Complete Time: 20:59 tk1 10/22 19:17 Order name: NT PRO-BNP; Complete Time: 20:59 tk1 10/22 19:17 Order name: PT-INR; Complete Time: 19:55 tk1 10/22 19:17 Order name: Troponin HS; Complete Time: 20:59 tk1 10/22 19:21 Order name: SARS-COV-2 RT PCR (Document "Date of Onset" if Symptomatic) edilson 10/22 19:22 Order name: SARS-COV-2 RT PCR; Complete Time: 20:59 EDMS 10/22 19:36 Order name: D-Dimer; Complete Time: 19:55 EDMS 10/22 19:37 Order name: Lipase; Complete Time: 20:59 EDMS 10/22 19:45 Order name: Troponin High Sensitivity: redraw at 9 pm [facility] 10/22 19:17 Order name: XRAY Chest (1 view) [email or web address]] 10/22 19:17 Order name: EKG; Complete Time: 19:17 tk1 10/22 19:17 Order name: Cardiac monitoring; Complete Time: 19:17 tk1 10/22 19:17 Order name: EKG - Nurse/Tech; Complete Time: 19:17 tk 10/22 19:17 Order name: IV Saline Lock; Complete Time: 19:17 tk1 10/22 19:17 Order name: Labs collected and sent; Complete Time: 19:17 tk1 10/22 19:17 Order name: O2 Per Protocol; Complete Time: 19:17 tk1 10/22 19:17 Order name: O2 Sat Monitoring; Complete Time: 19:17 tk1 10/22 19:45 Order name: Troponin High Sensitivity; Complete Time: 22:19 EDMS 10/22 19:51 Order name: CBC Smear Scan; Complete Time: 19:54 EDMS 10/22 19:55 Order name: CT Chest For PE Angio [facility] 10/22 19:55 Order name: US Extremity Venous W Compression Jose E edilson EC:36 Rate is 88 beats/min. Rhythm is regular. QRS [place] is Normal. CO interval is normal. QRS edilson interval is normal. QT interval is normal. No Q waves. T waves are Normal. No ST changes noted. Clinical impression: NSR w/ Non-specific ST/T Changes and No evidence of ischemia. Interpreted by me. Reviewed by me. Administered Medications: 19:30 Drug: Aspirin Chewable Tablet 162 mg Route: PO; tk1 22:09 Follow up: Response: No adverse reaction tk1 19:31 Drug: NS 0.9% 1000 ml Route: IV; Rate: 100 ml/hr; Infused Over: 10 hrs; Site: left tk1 antecubital; Delivery: Primary tubing; 22:41 Follow up: IV Status: Order to discontinue infusion; IV Intake: 325ml tk1 21:30 Drug: Magnesium Sulfate 2 grams Route: IVPB; Rate: 2 mg/hr; Infused Over: 1 hrs; Site: tk1 left antecubital; Delivery: Primary tubing; 22:35 Follow up: Response: No adverse reaction; IV Status: Completed infusion; IV Intake: tk1 100ml Disposition Summary: 10/22/21 22:38 Discharge Ordered Location: Home [facility] Problem: new edilson Symptoms: have improved edilson Condition: Stable edilson Diagnosis - Chest pain, unspecified - wall edilson - Hypomagnesemia edilson - Type 1 diabetes mellitus with hyperglycemia edilson - Chronic pain, not elsewhere classified edilson - Atelectasis edilson Followup: edilson - With: Private Physician - When: 2 - 3 days - Reason: Recheck today's complaints, Continuance of care, Re-evaluation by your physician Followup: edilson - With: Varghese Hoover MD - When: 2 - 3 days - Reason: Recheck today's complaints, Re-evaluation by your physician Discharge Instructions: - Discharge Summary Sheet edilson - Nonspecific Chest Pain, Adult edilson - Chest Wall Pain edilson - Hyperglycemia edilson - Hypomagnesemia edilson - Chest Wall Pain, [id number] edilson - Nonspecific Chest Pain, Adult, [id number] edilson - Blood Glucose Monitoring, Adult edilson - Hyperglycemia, [id number] [facility] Forms: - Medication Reconciliation Form edilson - Thank You Letter edilson - Antibiotic Education edilson - Prescription Opioid Use edilson Prescriptions: - Tylenol-Codeine #3 300 mg-30 mg Oral - take 2 tablet by ORAL route every 6 hours; 15 tablet; Refills: 0, Product edilson Selection Permitted Signatures: Dispatcher [employer] Efren Carpio MD MD cha Lewis, Lynsay, RN RN ll1 Brandi Talley tk1 Corrections: (The following items were deleted from the chart) 19:36 19:20 LIPASE+C.LAB.BRZ ordered. EDMS EDMS 19:36 19:20 D-DIMER+COAG.LAB.BRZ ordered. EDMS EDMS
[2021-10-23 00:55] VITALS: TEMP 98.1
[2021-10-23 00:59] VITALS: BP 157/95; O2SAT 96
--- NOTE | 2021-10-23 07:48 | RAD REPORT ---
EXAM DESCRIPTION: USExtrem Venous W Compress Bil10/22/2021 8:27 pm CLINICAL HISTORY: Leg pain COMPARISON: 2020 FINDINGS: The common femoral, superficial femoral, popliteal and posterior tibial veins bilaterally are compressible and demonstrate augmentation. Doppler demonstrates good flow. IMPRESSION: No evidence of deep venous thrombosis involving either lower extremity.
--- NOTE | 2021-10-23 07:48 | RAD REPORT ---
EXAM DESCRIPTION: Steve Single View10/22/2021 8:09 pm CLINICAL HISTORY: Chest pain COMPARISON: 2019 FINDINGS: The lungs are mildly hazy. . The heart is normal size IMPRESSION: The lungs are mildly hazy which may indicate mild pneumonitis or pneumonia
--- NOTE | 2021-10-23 09:50 | RAD REPORT ---
EXAM DESCRIPTION: CT - Chest For Pe Angio - 10/23/2021 6:44 am CLINICAL HISTORY: 56 years Female CHEST PAIN TECHNIQUE: Contiguous axial images obtained through the chest were obtained from the thoracic inlet to the level of the upper abdomen during the pulmonary arterial phase of intravenous contrast adminis tration. Coronal and sagittal reformatted and MIP images provided. This CT exam was performed according to our departmental dose-optimization program, which includes on e or more of the following dose reduction techniques: automated exposure control, adjustment of the m A and/or kV according to patient size, and/or use of iterative reconstruction technique. COMPARISON: No prior exams provided for comparison. FINDINGS: There is no pulmonary embolus. Mild atherosclerosis without thoracic aortic aneurysm or dissection. The heart is normal in size. Tra ce pericardial fluid. Aside from mild patchy atelectasis bilaterally, the lungs are clear without consolidation, effusion, or pneumothorax. No lymphadenopathy in the chest. There are no visualized acute osseous or upper abdominal abnormalities. IMPRESSION: No pulmonary embolus. No acute cardiopulmonary findings. 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 The interpreting r adiologist is fully responsible for the content of the report.
--- NOTE | 2021-10-23 11:15 | EKG ---
Test Date: 2021-10-22 Test Time: 18:53:15 Architecture Faculty Member: JANICE MEASUREMENT RESULTS: Intervals: Rate: 88 WY: 128 QRSD: 92 QT: 350 QTc: 423 [place]: P: 62 WY: 128 QRS: 10 T: 64 INTERPRETIVE STATEMENTS: Normal sinus rhythm Possible Left atrial enlargement Septal infarct, age undetermined Abnormal ECG Compared to ECG 11/08/2019 13:44:10 No significant changes Electronically Signed On 10-23-21 11:13:43 CORRUGATOR OPERATOR by Varghese Hoover
== END 2021-10-22 22:55 | disposition home or self-care (01) ==
LOC: ER 18:40
DX: R07.89 Other chest pain (principal); E83.42 Hypomagnesemia; E10.65 Type 1 diabetes mellitus with hyperglycemia; J98.11 Atelectasis; G89.29 Other chronic pain; I10 Essential (primary) hypertension; Z20.822 Contact with and (suspected) exposure to COVID-19
CPT/HCPCS: 96365; 96361; 93005; 85025; 80048; 36415; 83735; 85610; 85379; 80076; 84484 ×2; 83690; 83880; 71275; 71045; 93970; 99285; U0003; Q9967; J3475; J7030

== ENCOUNTER 2022-04-21 11:57 | Emergency (ER) | payer OTHER ==
--- OUTSIDE RECORDS SUMMARY | 2022-04-21 12:04 | XMS REPORT | Continuity of Care Document ---
:1965 Author Organization [facility] t Address [address] [place] [address] Care Team Providers Name Role Phone Naseem Sanchez Primary Care Physician Baljeet De Anda Attending Clinician Unavailable GIANNA ROBERTS Attending Clinician Unavailable Vira Guerrero Attending Clinician Unavailable Tawana Ramirez Attending Clinician Unavailable JOSH BENNETT Attending Clinician Unavailable ROSAURA CALI Attending Clinician Unavailable KESHAV FOREMAN Attending Clinician Unavailable PRICILLA DOOLEY Attending Clinician Unavailable PRADIP YUNG Attending Clinician Unavailable Pradip Yung MD Attending Clinician EVANGELISTA ALBRECHT Attending Clinician Unavailable Evangelista Lama Attending Clinician [facility] Attending Clinician Unavailable Lisa Dougherty Attending Clinician LISA MARR Attending Clinician Unavailable Darrius To MD Attending Clinician Chanel Gupta DO Attending Clinician Armond Siu APRN Attending Clinician Francisco Andrea Attending Clinician Unavailable Tita BRINK, Royce Wolf Attending Clinician Doctor Unassigned, [place] Attending Clinician Unavailable Arnulfo BRAGAPricilla Klarissa Attending Clinician SADIA ROCK I Attending Clinician Unavailable PRADIP YUNG Admitting Clinician Unavailable Referred, Self Admitting Clinician Unavailable SADIA ROCK I Admitting Clinician Unavailable Payers Payer Name Policy Type Policy Number Effective Date Expiration Date S viridiana [place] [id number] 2016 MEDICAID STAR+PLUS 00:00:00 [employer] [place] [id number] 2015 00:00:00 [facility] [id number] 2016 MEDICAID 00:00:00 Problems Condition Condition Condition Status Onset Resolution Last Treating Co mments Source Name Details Category Date Date Treatment Clinician Date Ganglion Ganglion Disease Active Overview: Un donaldo cyst of cyst of 11-05 Formattin ity o f finger finger 00:00: g of this [place] 00 note Medical might be Branch different from the original. Added automatic ally from request for surgery [id number] Greater Greater Disease Active [facility] trochanter trochanter 02-27 He alth ic ic 00:00: bursitis bursitis 00 of both of both hips hips Sacroiliac Sacroiliac Disease Active Last U T [...] of left of left 00 side side S/P S/P Disease Active 2019-09 Univers revision revision 1-02 ity of of total of total 00:00: [place] knee knee 00 Medical Branch S/P total S/P total Disease Active 2019-09 Overview: Univers knee knee 0-19 Formattin ity of replacemen replacemen 00:00: g of this [place] t, right t, right 00 note Medica l might be Branch different from the original. Added automatic ally from request for surgery [id number] Painful Painful Disease Active Univers orthopaedi orthopaedi 04-12 it y of c hardware c hardware 00:00: [place] [facility] Degenerati Degenerati Disease Active 2017-09 M ethodi on of on of 09-15 st interverte interverte 00:00: Ho spita bral disc bral disc 00 l of of lumbosacra lumbosacra l region l region Thumb Thumb Disease Active Univers pain, left pain, left 01-13 it y of 00:00: [place] [facility] Total knee Total knee Disease Active U nivers replacemen replacemen 01-20 it y of t status t status 00:00: Medical Branch Right knee Right knee Disease Active U nivers pain pain 01-10 ity of 00:00: [place] [facility] Lump or Lump or Disease Active Univers mass in mass in 04-16 ity of breast breast 00:00: Medical Branch 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 ICD10 Diagnosis [employer] Uncontroll Uncontroll Problem Active C ommon ed type 2 ed type 2 Spir it diabetes diabetes - [facility] mellitus mellitus St with with [facility] hyperglyce hyperglyce Me dical [facility] Anxiety Anxiety Problem Active Common [facility] Asthma, Asthma, Problem Active Common unspecifie unspecifie Sp yaron d asthma d asthma - [facility] severity, severity, St unspecifie unspecifie Verenice kes d whether d whether Medi cipriano complicate complicate Ce nter d, d, unspecifie unspecifie d whether d whether persistent persistent Diabetes Diabetes Problem Active Commo n [facility] Swelling Swelling Problem Active Commo n [facility] High blood High blood Problem Active C ommon pressure pressure [facility] Sinus Sinus Problem Active Common problem problem [facility] High High Problem Active Common cholestero cholestero Sp yaron l l [facility] Depression Depression Problem Active C ommon with with Spirit anxiety anxiety [facility] Acquired Acquired Problem Active Commo n hypothyroi hypothyroi Sp yaron dism dism [facility] Chronic Chronic Problem Active Common pain pain Spirit syndrome syndrome - [facility] Polyarthra Polyarthra Problem Active C ommon lgia lgia [facility] Gastroesop Gastroesop Problem Active C ommon hageal hageal Spirit reflux reflux - [facility] disease, disease, St esophagiti esophagiti Verenice kes s presence s presence Me dical not not Center specified specified Chronic Chronic Problem Active Common obstructiv obstructiv Sp yaron e e [facility] pulmonary pulmonary St disease, disease, [facility] unspecifie unspecifie Me dical d COPD d COPD Center type type Abnormal Abnormal Problem Active Commo n urine odor urine odor Sp yaron [facility] Hoarseness Hoarseness Problem Active C ommon [facility] Hyperlipid Hyperlipid Problem Active C ommon emia, emia, Spirit unspecifie unspecifie - [facility] d d St hyperlipid hyperlipid Verenice kes emia type emia type [facility] Sore Sore Problem Active Common throat throat [facility] Non-intrac Non-intrac Problem Active C ommon table table Spirit vomiting vomiting - [facility] with with St nausea, nausea, [facility] unspecifie unspecifie Me dical d vomiting d vomiting Ce nter type type Chest Chest Problem Active Common tightness tightness Spir [facility] Exposure Exposure Problem Active Commo n to mold to mold [facility] Wheezing Wheezing Problem Active Commo n [facility] Shortness Shortness Problem Active Com mon of breath of breath Spir [facility] Itching Itching Problem Active Common [facility] Muscle Muscle Problem Active Common cramping cramping [facility] Right leg Right leg Problem Active Com mon pain pain [facility] Acute Acute Problem Active Common right-side right-side Sp yaron d thoracic d thoracic - [facility] back pain back pain [facility] Low back Low back Problem Active Commo n pain pain [facility] Other Other Problem Active Common chronic chronic Spirit pain pain [facility] Lumbago Lumbago Problem Active Common with with Spirit sciatica, sciatica, - [facility] I right side right side [facility] Status Status Problem Active Common post fall post fall Spir it [facility] Dizziness Dizziness Problem Active Com mon Spirit [facility] Imbalance Imbalance Problem Active Com mon [facility] Difficulty Difficulty Problem Active C ommon sleeping sleeping [facility] Acute Acute Problem Active Common stress stress Spirit reaction reaction [facility] 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 both - [facility] carotid carotid St arteries [facility] Stenosis Stenosis Problem Active Commo n of left of left Spirit carotid carotid - [facility] artery artery [facility] Status Status Problem Active Common post CVA post CVA [facility] Stenosis Stenosis Problem Active Commo n of right of right Spirit carotid carotid - [facility] artery artery [facility] Obesity Obesity Disease Active Univers (BMI (BMI ity of 30-39.9) 30-39.9) [facility] Allergies, Adverse Reactions, Alerts Allergy Allergy Status Severity Reaction(s) Onset Inactive Treating Comm ents Source Name Type Date Date Clinician NO KNOWN Drug Active Univers ALLERGIE Class ity of S [facility] Family History Family Member Diagnosis Comments Start Date Stop Date Source Natural father [facility] Natural mother COPD [facility] Natural mother [facility] Social History Social Habit Start Date Stop Date Quantity Comments Source History of tobacco Cigarette Smoker [facility] Exposure to 2022-02-16 2022-02-26 Not sure University of SARS-CoV-2 (event) 00:00:00 15:32:00 [facility] Alcohol intake 2021-06-09 2021-06-09 Ex-drinker [facility] 00:00:00 00:00:00 (finding) Tobacco use and 2021-02-27 2021-02-27 Smokeless [facility] exposure 00:00:00 00:00:00 tobacco non-user Cigarettes smoked 2018-07-15 2018-07-15 [facility] 00:00[facility]00 00[facility]00[facility] - Reported Sex Assigned At [birth year] [facility] 00:00:00 00:00:00 Smoking Status Start Date Stop Date Source Ex-smoker 2018-07-15 00:00:00 2018-07-15 00:00:00 [facility] Never smoker [facility] [place] [facility] Medications Ordered Filled Start Stop Current Ordering Indication Dosage Frequency Signature Comments Components Source Medication Medication Date Date Medication? Clinician (SIG) Name Name ondansetron 2021- No 4mg 4 mg, Slow Univers (ZOFRAN 02-09 IV Push, ity of (PF)) 01:15: 00:54 ONCE, 1 [place] injection 4 00 :00 dose, On Medi cipriano mg 02/08/22 Branch at 2014, CHEPE morpHINE (4 2021- No 4mg 4 mg, Slow Univers mg/mL) 02-09- IV Push, ity of injection 4 01:15: 00:54 ONCE, 1 [place] mg 00 :00 dose, On Medical 02/08/22 Branch at 2014, STAT NaCl 0.9% 2021- No 1000mL at 999 Uni vers (NS) bolus 02-09-05 mL/hr, ity of infusion 01:15: 02:20 1,000 mL, [place] as 1,000 mL 00 :00 IV Medical Infusion, Branch ONCE, 1 dose, On 02/08/22 at 2014, CHEPE ondansetron 2021-0 Yes [id number] 4mg Take 1 Univers 4 mg 6-04 tablet by ity of disintegrat 00:00: mouth [place] ing tablet 00 every 12 Medic al (twelve) Branch hours as needed for Nausea and Vomiting (N/V). ondansetron 2021-0 Yes [id number] 4mg Take 1 Univers 4 mg 6-04 tablet by ity of disintegrat 00:00: mouth [place] ing tablet 00 every 12 Medic al (twelve) Branch hours as needed for Nausea and Vomiting (N/V). dicyclomine 2021- Yes [id number] 20mg Take 1 Univers 20 mg 3-29 tablet by ity of tablet 00:00: mouth 4 [place] 00 (four) Medical times Branch daily. ondansetron 2021-0 Yes [id number] 4mg Take 1 Univers 4 mg 3-29 tablet by ity of disintegrat 00:00: mouth [place] ing tablet 00 every 4 Medica l (four) Branch hours as needed for Nausea and Vomiting (N/V). dicyclomine 2021-0 Yes [id number] 20mg Take 1 Univers 20 mg 3-29 tablet by ity of tablet 00:00: mouth 4 [place] 00 (four) Medical times Branch daily. ondansetron 2021-0 Yes [id number] 4mg Take 1 Univers 4 mg 3-29 tablet by ity of disintegrat 00:00: mouth [place] ing tablet 00 every 4 Medica l (four) Branch hours as needed for Nausea and Vomiting (N/V). dicyclomine 2021-0 Yes [id number] 20mg Take 1 Univers 20 mg 3-29 tablet by ity of tablet 00:00: mouth 4 [place] 00 (four) Medical times Branch daily. ondansetron 2021-0 Yes [id number] 4mg Take 1 Univers 4 mg 3-29 tablet by ity of disintegrat 00:00: mouth [place] ing tablet 00 every 4 Medica l (four) Branch hours as needed for Nausea and Vomiting (N/V). amLODIPine No 5mg 5 mg, Unive rs (NORVASC) 11-18 Oral, ONCE ity of tablet 5 mg 16:30: 15:50 NOW, 1 [place] 00 :00 dose, On Medical Mon Branch 11/18/21 at 1130, Routine lactated No 1000mL at 42 Unive rs ringers IV 11-18 mL/hr, ity of infusion 14:30: 18:59 1,000 mL, [place] as 1,000 mL 00 :28 IV Medical Infusion, Branch CONTINUOUS , Starting on Thu11/18/21 at 0930, Until Thu11/18/21 at 1359, Routine, PACU hydralAZINE 2021- No 10mg 10 mg, Uni vers (APRESOLINE 11-18 Slow IV ity of ) injection 14:19: 18:59 [place] 10 mg 01 :28 Q15MIN Medical PRN, Branch Starting on Thu11/18/21 at 0919, Until Thu11/18/21 at 1359, CHEPE, DBP=>100; SBP=>160, PACU
In dication: Hypertensi ve Emergency HYDROmorphO 2021- No .2mg 0.2 mg, Un donaldo ne 11-18 Slow IV ity of (DILAUDID) 14:19: 18:59 Push, [place] injection 01 :28 Q5MIN PRN, Medi cipriano 0.2 mg 10 doses, Branch Starting on Thu11/18/21 at 0919, Until Thu11/18/21 at 1359, Routine, Pain (scale 7-10), PACU
Us e approved by (Faculty): PACU USE -ANESTHESI A SERVICE-HY DROMORPHON E INJECTIONS lactated 2021- No 1000mL at 75 Unive rs ringers IV 11-18 mL/hr, ity of infusion 14:15: 18:59 1,000 mL, [place] as 1,000 mL 00 :28 IV Medical Infusion, Branch CONTINUOUS , Starting on Thu11/18/21 at 0915, Until Thu11/18/21 at 1359, Routine, PACU FENTanyl PF 2021- No 25ug 25 mcg, Un donaldo (SUBLIMAZE 11-18 Slow IV ity o f (PF)) 14:03: 18:59 Push, [place] injection 54 :28 Q5MIN PRN, Medi cipriano 25 mcg 4 doses, Branch Starting on Thu11/18/21 at 0903, Until Thu11/18/21 at 1359, Routine, Pain (scale 4-6), PACU ondansetron 2021- No 4mg 4 mg, Slow Univers (ZOFRAN 11-18 IV Push, ity of (PF)) 14:03: 18:59 PRN, 1 [place] injection 4 54 :28 dose, Medical mg Starting Branch on Thu11/18/21 at 0903, Until Thu11/18/21 at 1359, Routine, Nausea and Vomiting (N/V), PACU water for 2021- No PRN, Univers irrigation 11-18 Starting ity of irrigation 13:28: 18:59 on Mon [place] solution 00 :28 11/18/21 at Medic al 0828, Branch Until 11/18/21 at 1359, Routine, Intra-op bupivacaine 2021- No PRN, Unive rs (preserv -18 11-14 Starting ity of free) 13:25: 18:59 on Thu [place] (SENSORCAIN 00 :28 11/18/21 at Sd dical E MPF) 0.25 0825, Branch % (2.5 Until Mon mg/mL) 11/18/21 at injection 1359, Routine, Intra-op lactated 2021- No 1000mL at 42 Unive rs ringers IV 11-18-14 mL/hr, ity of infusion 12:15: 12:18 1,000 mL, [place] as 1,000 mL 00 :00 IV Medical Infusion, Branch ONCE, 1 dose, On Thu11/18/21 at 0715, Routine, DSU Pre-op AMITRIPTYLI Yes 1 tab Unive rs NE 50 MG 3-14 every AM ity of ORAL TAB 11:59: [address] simvastatin Yes 40mg Take 40 mg Univers (ZOCOR) 40 3-14 by mouth ity o f mg tablet 11:59: at [place] [address] bedtime. [facility] levothyroxi Yes 50ug Take 50 Uni vers ne 3-14 mcg by ity of (SYNTHROID) 11:59: mouth [place] 50 mcg 28 every Medical tablet morning. [place] ALBUTEROL Yes 1{puff} Inhale 1 U nivers SULFATE HFA 3-14 Puff as ity o f INHALE 11:59: needed. [address] HYDROcodone Yes 1{tbl} Take 1 Un donaldo -acetaminop 3-14 tablet by ity of hen 10-325 11:59: mouth 3 [place] mg tablet 28 (three) Medical times [place] daily as needed. MAGNESIUM Yes 1{tbl} Take 1 Univ ers ORAL 3-14 tablet by ity of 11:59: mouth. [address] aspirin 81 Yes 81mg Take 81 mg U nivers mg EC 3-14 by mouth. ity of tablet 11:59: [address] estradioL Yes .5mg Take 0.5 Univ ers 0.5 mg 3-14 mg by ity of tablet 11:59: mouth. [address] esomeprazol Yes 40mg Take 40 mg Univers e 40 mg 3-14 by mouth. ity of capsule 11:59: [address] gabapentin Yes 600mg Take 600 Un donaldo ER 600 mg 3-14 mg by ity of tablet, 11:59: mouth. [place] [address] Medical release 24 Branch hr insulin Yes 85U inject 85 Unive rs degludec 3-14 Units ity of 100 unit/mL 11:59: [facility] [place] ([facility] Branch semaglutide Yes Take by Uni vers (RYBELSUS) 3-14 mouth. ity of 7 mg Tab 11:59: [address] trazodone Yes Take by Unive rs HCl 3-14 mouth. ity of (TRAZODONE 11:59: [place] ORAL) [address] [place] [address] FAMOTIDINE Yes Take by Univ ers ORAL 3-14 mouth. ity of 11:59: [address] linaclotide Yes Take by Uni vers (LINZESS 3-14 mouth. ity of ORAL) 11:59: [address] AMITRIPTYLI Yes 1 tab Unive rs NE 50 MG 3-14 every AM ity of ORAL TAB 11:59: [address] simvastatin Yes 40mg Take 40 mg Univers (ZOCOR) 40 3-14 by mouth ity o f mg tablet 11:59: at [place] [address] bedtime. Medical Branch levothyroxi Yes 50ug Take 50 Uni vers ne 3-14 mcg by ity of (SYNTHROID) 11:59: mouth [place] 50 mcg 28 every Medical tablet morning. Branch ALBUTEROL Yes 1{puff} Inhale 1 U nivers SULFATE HFA 3-14 Puff as ity o f INHALE 11:59: needed. [address] HYDROcodone Yes 1{tbl} Take 1 Un donaldo -acetaminop 3-14 tablet by ity of hen 10-325 11:59: mouth 3 [place] mg tablet 28 (three) Medical times Branch daily as needed. MAGNESIUM Yes 1{tbl} Take 1 Univ ers ORAL 3-14 tablet by ity of 11:59: mouth. [address] Branch aspirin 81 Yes 81mg Take 81 mg U nivers mg EC 3-14 by mouth. ity of tablet 11:59: [address] estradioL Yes .5mg Take 0.5 Univ ers 0.5 mg 3-14 mg by ity of tablet 11:59: mouth. [address] esomeprazol Yes 40mg Take 40 mg Univers e 40 mg 3-14 by mouth. ity of capsule 11:59: [address] gabapentin Yes 600mg Take 600 Un donaldo ER 600 mg 3-14 mg by ity of tablet, 11:59: mouth. [place] [address] Medical release 24 Branch hr insulin Yes 85U inject 85 Unive rs degludec 3-14 Units ity of 100 unit/mL 11:59: under the [place] (3 mL) [facility] Branch semaglutide Yes Take by Uni vers (RYBELSUS) 3-14 mouth. ity of 7 mg Tab 11:59: [address] trazodone Yes Take by Unive rs HCl 3-14 mouth. ity of (TRAZODONE 11:59: [facility]) [address] [place] [address] Branch FAMOTIDINE Yes Take by Univ ers ORAL 3-14 mouth. ity of 11:59: [address] linaclotide Yes Take by Uni vers (LINZESS 3-14 mouth. ity of ORAL) 11:59: [address] AMITRIPTYLI Yes 1 tab Unive rs NE 50 MG 3-14 every AM ity of ORAL TAB 11:59: [address] simvastatin Yes 40mg Take 40 mg Univers (ZOCOR) 40 3-14 by mouth ity o f mg tablet 11:59: at [place] [address] bedtime. Medical Branch levothyroxi Yes 50ug Take 50 Uni vers ne 3-14 mcg by ity of (SYNTHROID) 11:59: mouth [place] 50 mcg 28 every Medical tablet morning. Branch ALBUTEROL Yes 1{puff} Inhale 1 U nivers SULFATE HFA 3-14 Puff as ity o f INHALE 11:59: needed. [address] HYDROcodone Yes 1{tbl} Take 1 Un donaldo -acetaminop 3-14 tablet by ity of hen 10-325 11:59: mouth 3 [place] mg tablet 28 (three) Medical times [place] daily as needed. MAGNESIUM Yes 1{tbl} Take 1 Univ ers ORAL 3-14 tablet by ity of 11:59: mouth. [address] aspirin 81 Yes 81mg Take 81 mg U nivers mg EC 3-14 by mouth. ity of tablet 11:59: [address] estradioL Yes .5mg Take 0.5 Univ ers 0.5 mg 3-14 mg by ity of tablet 11:59: mouth. [address] esomeprazol Yes 40mg Take 40 mg Univers e 40 mg 3-14 by mouth. ity of capsule 11:59: [address] gabapentin Yes 600mg Take 600 Un donaldo ER 600 mg 3-14 mg by ity of tablet, 11:59: mouth. [place] [address] Medical release 24 Branch hr insulin Yes 85U inject 85 Unive rs degludec 3-14 Units ity of 100 unit/mL 11:59: under the [place] (3 mL) In 28 skin. [facility] Branch semaglutide Yes Take by Uni vers (RYBELSUS) 3-14 mouth. ity of 7 mg Tab 11:59: [address] trazodone Yes Take by Unive rs HCl 3-14 mouth. ity of (TRAZODONE 11:59: [facility]) [address] [place] [address] FAMOTIDINE Yes Take by Univ ers ORAL 3-14 mouth. ity of 11:59: [address] linaclotide Yes Take by Uni vers (LINZESS 3-14 mouth. ity of ORAL) 11:59: [address] AMITRIPTYLI Yes 1 tab Unive rs NE 50 MG 3-14 every AM ity of ORAL TAB 11:59: [address] simvastatin Yes 40mg Take 40 mg Univers (ZOCOR) 40 3-14 by mouth ity o f mg tablet 11:59: at [place] [address] bedtime. Medical Branch levothyroxi Yes 50ug Take 50 Uni vers ne 3-14 mcg by ity of (SYNTHROID) 11:59: mouth [place] 50 mcg 28 every Medical tablet morning. Branch ALBUTEROL Yes 1{puff} Inhale 1 U nivers SULFATE HFA 3-14 Puff as ity o f INHALE 11:59: needed. [address] HYDROcodone Yes 1{tbl} Take 1 Un donaldo -acetaminop 3-14 tablet by ity of hen 10-325 11:59: mouth 3 [place] mg tablet 28 (three) Medical times [place] daily as needed. MAGNESIUM Yes 1{tbl} Take 1 Univ ers ORAL 3-14 tablet by ity of 11:59: mouth. [address] aspirin 81 Yes 81mg Take 81 mg U nivers mg EC 3-14 by mouth. ity of tablet 11:59: [address] estradioL Yes .5mg Take 0.5 Univ ers 0.5 mg 3-14 mg by ity of tablet 11:59: mouth. [address] esomeprazol Yes 40mg Take 40 mg Univers e 40 mg 3-14 by mouth. ity of capsule 11:59: [address] gabapentin Yes 600mg Take 600 Un donaldo ER 600 mg 3-14 mg by ity of tablet, 11:59: mouth. [place] [address] Medical release 24 Branch hr insulin Yes 85U inject 85 Unive rs degludec 3-14 Units ity of 100 unit/mL 11:59: under the [place] (3 mL) [facility] Branch semaglutide Yes Take by Uni vers (RYBELSUS) 3-14 mouth. ity of 7 mg Tab 11:59: [address] trazodone Yes Take by Unive rs HCl 3-14 mouth. ity of (TRAZODONE 11:59: [place] ORAL) 28 Medical Branch FAMOTIDINE Yes Take by Univ ers ORAL 3-14 mouth. ity of 11:59: [place] [address] Medical Branch linaclotide Yes Take by Uni vers (LINZESS 3-14 mouth. ity of ORAL) 11:59: [place] [address] Medical Branch traMADoL 50 2021- No [id number] 50mg Take 1 Uni vers mg tablet 11-18 03-22 tablet by ity of 00:00: 04:59 mouth [place] 00 :00 every 6 Medical (six) Branch hours as needed for Pain (scale 4-6) or Pain (scale 7-10) for up to 7 days. Indication s: acute pain predniSONE 2020-09 Yes [id number] 60mg Take 3 U nivers 20 mg 2-31 tablets by ity of tablet 00:00: mouth [place] 00 every Medical morning. Branch benzonatate 2020-09 Yes [id number] 100mg Take 1 Univers 100 mg 2-31 capsule by ity of capsule 00:00: mouth 3 [place] 00 (three) Medical times Branch daily as needed for Cough. predniSONE 2020-09 Yes [id number] 60mg Take 3 U nivers 20 mg 2-31 tablets by ity of tablet 00:00: mouth [place] 00 every Medical morning. Branch benzonatate 2020-09 Yes [id number] 100mg Take 1 Univers 100 mg 2-31 capsule by ity of capsule 00:00: mouth 3 [place] 00 (three) Medical times Branch daily as needed for Cough. predniSONE 2020-09 Yes [id number] 60mg Take 3 U nivers 20 mg 2-31 tablets by ity of tablet 00:00: mouth [place] 00 every Medical morning. Branch benzonatate 2020-09 Yes [id number] 100mg Take 1 Univers 100 mg 2-31 capsule by ity of capsule 00:00: mouth 3 [place] 00 (three) Medical times Branch daily as needed for Cough. predniSONE 2020-09 Yes [id number] 60mg Take 3 U nivers 20 mg 2-31 tablets by ity of tablet 00:00: mouth [place] 00 every Medical morning. Branch benzonatate 2020-09 Yes [id number] 100mg Take 1 Univers 100 mg 2-31 capsule by ity of capsule 00:00: mouth 3 [place] 00 (three) Medical times Branch daily as needed for Cough. TRESIBA 2020-09 Yes INJECT 95 Unive rs [...] MORNING FOR 90 DAYS methocarbam 2020-09 Yes [id number] 500mg Take 1 Univers oL 500 mg 2-01 tablet by ity o f tablet 00:00: mouth 4 00 (four) Medical times Branch daily as needed for Pain (scale 4-6). methocarbam 2020-09 Yes [id number] 500mg Take 1 Univers oL 500 mg 2-01 tablet by ity o f tablet 00:00: mouth 4 [place] 00 (four) Medical times Branch daily as needed for Pain (scale 4-6). methocarbam 2020-09 Yes [id number] 500mg Take 1 Univers oL 500 mg 2-01 tablet by ity o f tablet 00:00: mouth 4 [place] 00 (four) Medical times Branch daily as needed for Pain (scale 4-6). methocarbam 2020-09 Yes [id number] 500mg Take 1 Univers oL 500 mg 2-01 tablet by ity o f tablet 00:00: mouth 4 [place] 00 (four) Medical times Branch daily as needed for Pain (scale 4-6). RYBELSUS 14 2020-09 Yes TAKE ONE Un donaldo mg Tab 1-24 TABLET BY ity of 00:00: MOUTH ONCE [place] 00 A DAY AT Medical LEAST 30 Branch MINUTES BEFORE FIRST FOOD, BEVERAGE, OR OTHER MEDICINE OF THE DAY [facility] 2020-09 Yes TAKE ONE Un donaldo mg Tab 1-24 TABLET BY ity of 00:00: MOUTH ONCE [place] 00 A DAY AT Medical LEAST 30 Branch MINUTES BEFORE FIRST FOOD, BEVERAGE, OR OTHER MEDICINE OF THE DAY [facility] 14 2020-09 Yes TAKE ONE Un donaldo mg Tab 1-24 TABLET BY ity of 00:00: MOUTH ONCE [place] 00 A DAY AT Medical LEAST 30 Branch MINUTES BEFORE FIRST FOOD, BEVERAGE, OR OTHER MEDICINE OF THE DAY [facility] 14 2020-09 Yes TAKE ONE Un donaldo mg Tab 1-24 TABLET BY ity of 00:00: MOUTH ONCE [place] 00 A DAY AT Medical LEAST 30 Branch MINUTES BEFORE FIRST FOOD, BEVERAGE, OR OTHER MEDICINE OF THE DAY traZODone 2020-09 Yes Univers 100 mg 0-27 ity of tablet 00:00: [facility] traZODone 2020-09 Yes Univers 100 mg 0-27 ity of tablet 00:00: [facility] traZODone 2020-09 Yes Univers 100 mg 0-27 ity of tablet 00:00: [facility] traZODone 2020-09 Yes Univers 100 mg 0-27 ity of tablet 00:00: [place] [facility] bupivacaine 2020- No [id number] 1mL UT (Marcaine) 02-27 9102 Health 0.5 % 14:41: 14:41 injection 1 46 :00 mL triamcinolo 2020- No [id number] 80mg UT ne 02-27 9102 Health acetonide 14:41: 14:41 (Kenalog-40 46 :00 ) injection 80 mg triamcinolo 2020- No [id number] 80mg 80 mg, UT ne 02-27 9102 [facility] acetonide 14:41: 14:41 cular, (Kenalog-40 46 :00 Once PRN ) injection Procedure, 80 mg Starting on Thu02/27/21 at 0941, For 1 dose bupivacaine 2020- No [id number] 1mL 1 mL, UT (Marcaine) 02-27 9102 Injection, He alth 0.5 % 14:41: 14:41 Once PRN injection 1 46 :00 Procedure, mL Starting on Thu02/27/21 at 0941, For 1 dose amLODIPine 2021-0 Yes 5mg QD Take 5 [...] tablet 6-21 by mouth. ity of 00:00: [address] SERTraline 2021-0 Yes 50mg Take 50 mg U nivers 50 mg 6-21 by mouth. ity of tablet 00:00: [place] [facility] amLODIPine 1-0 Yes 5mg Take 5 mg Un donaldo 5 mg tablet 6-21 by mouth. ity of 00:00: [place] [facility] SERTraline 2021-0 Yes 50mg Take 50 mg U nivers 50 mg 6-21 by mouth. ity of tablet 00:00: [place] [facility] amLODIPine 2021-0 Yes 5mg Take 5 mg Un donaldo 5 mg tablet 6-21 by mouth. ity of 00:00: [place] [facility] SERTraline 2021-0 Yes 50mg Take 50 mg U nivers 50 mg 6-21 by mouth. ity of tablet 00:00: [place] [facility] amLODIPine 1-0 Yes 5mg Take 5 mg Un donaldo 5 mg tablet 6-21 by mouth. ity of 00:00: [place] [facility] SERTraline 2021-0 Yes 50mg Take 50 mg U nivers 50 mg 6-21 by mouth. ity of tablet 00:00: [address] metFORMIN 2021-0 Yes 500mg QD Take [...] time 24 hr each day. tablet metformin 2021-0 Yes 500mg Take 500 Uni vers ER 500 mg 6-03 mg by ity of 24 hr 00:00: mouth. [place] tablet 00 [facility] metformin 2021-0 Yes 500mg Take 500 Uni vers ER 500 mg 6-03 mg by ity of 24 hr 00:00: mouth. [place] tablet 00 [facility] metformin 2021-0 Yes 500mg Take 500 Uni vers ER 500 mg 6-03 mg by ity of 24 hr 00:00: mouth. [place] tablet 00 [facility] metformin 2021-0 Yes 500mg Take 500 Uni vers ER 500 mg 6-03 mg by ity of 24 hr 00:00: mouth. [place] tablet 00 [facility] Branch losartan-hy 2021-0 Yes UT droCHLOROth 6-02 Health [...] Health 200 UNIT/ML 00:00: injection 00 gabapentin 2021-0 Yes 1200mg Q.5D Take 1,200 UT (Neurontin) [...] mouth. ity of 3 mg Tab 00:00: [address] plecanatide 1-0 Yes 3mg Take 3 mg U nivers (TRULANCE) 3-23 by mouth. ity of 3 mg Tab 00:00: [address] plecanatide 1-0 Yes 3mg Take 3 mg U nivers (TRULANCE) 3-23 by mouth. ity of 3 mg Tab 00:00: [address] plecanatide 2021-0 Yes 3mg Take 3 mg U nivers (TRULANCE) 3-23 by mouth. ity of 3 mg Tab 00:00: [address] methocarbam 2017-09 Yes 750mg Q.[id number] Take 750 [facility] ol 1-[id number] (ROBAXIN) 21:45: 3D mouth 3 Hospi ta 500 MG 51 (three) l tablet times a day. Takes 500 mg 1.5 TAB. (750 mg) gabapentin 2017-09 Yes 600mg QD Take 600 Me th[facility] (GRALISE) 1-[address] 600 mg 21:45: mouth Hospita tablet 51 daily. l extended release 24 hr montelukast 2017-09 Yes 10mg QD Take 10 mg Methodi (SINGULAIR) 1-[address] 10 mg 21:45: daily. Hospita tablet 51 l esomeprazol 2017-09 Yes 40mg QD Take 40 mg Methodi e (NexIUM) 1-[address] 40 MG 21:45: daily. Hospita capsule 51 l pantoprazol 2017-09 Yes 40mg QD Take 40 mg Methodi e 1-[address] (PROTONIX) 21:45: daily. Hospi ta 40 MG EC 51 l tablet amitriptyli 2017-09 Yes 25mg QD Take 25 mg [facility] ne (ELAVIL) 1-[address] 25 MG 21:45: every Hospita tablet 51 morning. l losartan-hy 2017-09 Yes 1{tbl} QD Take 1 Me [facility] drochloroth 1-[address] iazide 21:45: mouth Hospita (HYZAAR) 51 every l 100-25 mg morning. per tablet simvastatin 2017-09 Yes 10mg QD Take 10 mg [facility] (ZOCOR) 10 1-[address] MG tablet 21:45: nightly. [facility] 51 l estradiol 2017-09 Yes .5mg QD Take 0.5 Meth bharati (ESTRACE) 1-[address] 0.5 MG 21:45: mouth Hospita tablet 51 daily. l tiZANidine 2017-09 Yes 2mg Q.5D Take 2 mg Me [facility] (ZANAFLEX) 1-[address] 2 MG tablet 21:45: (two) Hospi ta 51 times a l day as needed for muscle spasms. liraglutide 2017-09 Yes 1.8mg QD Inject 1.8 [facility] (VICTOZA) 1-[address] 0.6 mg/0.1 21:45: the skin Hos leonardo mL (18 mg/3 51 daily. l mL) pen injector insulin 2017-09 Yes 85U QD Inject 85 Metho di degludec 1-[address] (TRESIBA 21:45: under the [facility] FLEXTOUCH 51 skin every l U-100) 100 morning. unit/mL (3 mL) insulin pen aspirin 2017-09 Yes 81mg QD Take 81 mg Meth bharati (ECOTRIN) 1-[address] 81 MG 21:45: daily. Hospita enteric 51 l coated tablet MAGNESIUM 2017-09 Yes 1{tbl} QD Take 1 Meth bharati ORAL 1-[address] 21:45: mouth Hospita 51 daily. l Pure Magnesium albuterol 2017-09 Yes 1{puff} Q.[id number] Inhale 1 [facility] (PROAIR -[id number] HFA,PROVENT 21:45: 3D (three) [facility] [place] 51 times a l HFA,VENT day as N HFA) 90 needed for mcg/actuati wheezing on inhaler or shortness of breath. meloxicam 2017-09 Yes 15mg QD Take 15 mg Me [facility] (MOBIC) 15 -[address] mg tablet 21:45: daily. Hospit a 51 l DULoxetine 2017-09 Yes 20mg QD Take 20 mg M ethodi (CYMBALTA) -[address] 20 MG 21:45: daily. Hospita capsule 51 l HYDROcodone 2017-09 Yes 1{tbl} Q.14501735 Take 1 Method[facility] -acetaminop 1-[id number] hen (SeedInvest) 21:45: 3D mouth 3 Hos leonardo 7.5-325 mg 51 (three) l per tablet times a day. HYDROcodone 2017-09 Yes 1{tbl} Q.[id number] Take 1 [facility] -acetaminop 1-[id number] hen (SeedInvest) 15:45: 3D mouth 3 Hos leonardo 7.5-325 mg 51 (three) l per tablet times a day. methocarbam 2017-09 Yes 750mg Q.05920883 Take 750 Methodi ol 1-[id number] (ROBAXIN) 15:45: 3D mouth 3 Hospi ta 500 MG 51 (three) l tablet times a day. Takes 500 mg 1.5 TAB. (750 mg) gabapentin 2017-09 Yes 600mg QD Take 600 [facility] (GRALISE) 1-[address] 600 mg 15:45: mouth Hospita tablet 51 daily. l extended release 24 hr montelukast 2017-09 Yes 10mg QD Take 10 mg [facility] (SINGULAIR) -[address] 10 mg 15:45: daily. Hospita tablet 51 l esomeprazol 2017-09 Yes 40mg QD Take 40 mg Methodi e (NexIUM) 1-[address] 40 MG 15:45: daily. Hospita capsule 51 l pantoprazol 2017-09 Yes 40mg QD Take 40 mg Methodi e -[address] (PROTONIX) 15:45: daily. Hospi [...] Q.5D Take 2 mg Me [facility] (ZANAFLEX) -[address] 2 MG tablet [...] l Pure Magnesium albuterol 2017-09 Yes 1{puff} Q.77110717 Inhale 1 [facility] (PROAIR -[id number] HFA,PROVENT 15:45: 3D (three) [facility] [place] 51 times a l HFA,VENTOLI day as N HFA) 90 needed for mcg/actuati wheezing on inhaler or shortness of breath. meloxicam 2017-09 Yes 15mg QD Take 15 mg [facility] (MOBIC) 15 -[address] mg tablet 15:45: daily. Hospit a 51 l DULoxetine 2017-09 Yes 20mg QD Take 20 mg M ethodi (CYMBALTA) -[address] 20 MG 15:45: daily. Hospita capsule 51 l HYDROcodone 2017-09 Yes 1{tbl} Q.[id number] Take 1 [facility] -acetaminop -[id number] hen (NORCO) 15:45: 3D mouth 3 Hos leonardo 7.5-325 mg 51 (three) l per tablet times a day. methocarbam 2017-09 Yes 750mg Q.[id number] Take 750 Methodi ol 1-[id number] (ROBAXIN) 15:45: 3D mouth [...] QD Take 25 mg Methodi ne (ELAVIL) 1-[address] 25 MG 15:45: every Hospita tablet 51 morning. l losartan-hy 2017-09 Yes 1{tbl} QD Take 1 Me [facility] drochloroth 1-[address] iazide 15:45: mouth Hospita (HYZAAR) 51 every l 100-25 mg morning. per tablet simvastatin 2017-09 Yes 10mg QD Take 10 mg [facility] (ZOCOR) 10 1-[address] MG tablet 15:45: nightly. [facility] 51 l estradiol 2017-09 Yes .5mg QD Take 0.5 Meth bharati (ESTRACE) 1-[address] 0.5 MG 15:45: mouth Hospita tablet 51 daily. l tiZANidine 2017-09 Yes 2mg Q.5D Take 2 mg [facility] (ZANAFLEX) -[address] 2 MG tablet [...] Hospita enteric 51 l coated tablet MAGNESIUM 2018-1 Yes 1{tbl} QD Take 1 Meth bharati ORAL 1-[address] 15:45: mouth Hospita 51 daily. l Pure Magnesium albuterol 2017-09 Yes 1{puff} Q.[id number] Inhale 1 [facility] (PROAIR -[id number] HFA,PROVENT 15:45: 3D (three) [facility] [place] 51 times a l HFA,VENTOLI day as N HFA) 90 needed for mcg/actuati wheezing on inhaler or shortness of breath. meloxicam 2017-09 Yes 15mg QD Take 15 mg [facility] (MOBIC) 15 -[address] mg tablet 15:45: daily. Hospit a 51 l DULoxetine 2017-09 Yes 20mg QD Take 20 mg M ethodi (CYMBALTA) [address] 20 MG 15:45: daily. Hospita capsule 51 l methocarbam 2017-09 Yes 750mg Q8H Take 1 Met hodi ol 1-[address] (ROBAXIN-75 00:00: (750 mg Hos leonardo 0) 750 MG 00 total) by l tablet mouth every 8 (eight) hours as needed for muscle spasms for up to 40 doses. methocarbam 2017-09 Yes 750mg Q8H Take 1 Met hodi ol 1-[address] (ROBAXIN-75 00:00: (750 mg Hos le[facility]ardo 0) 750 MG 00 total) by l tablet mouth every 8 (eight) hours as needed for muscle spasms for up to 40 doses. methocarbam 2017-09 Yes 750mg Q8H Take 1 [...] [place] 00 (three) Medical times Branch daily. BusPIRone BusPIRone Yes Tawana 1 tablet Common HCl HCl [facility] Immunizations Ordered Immunization Filled Immunization Date Status Commen ts Source Name Name SARS-COV-2 COVID-19 2021-06-21 Completed Unive rsity of PFIZER VACCINE 00:00:00 [facility] SARS-COV-2 COVID-19 2021-06-21 Completed Unive rsity of PFIZER VACCINE 00:00:00 [facility] SARS-COV-2 COVID-19 2021-06-21 Completed Unive rsity of PFIZER VACCINE 00:00:00 [facility] SARS-COV-2 COVID-19 2021-06-21 Completed Unive rsity of PFIZER VACCINE 00:00:00 [facility] SARS-COV-2 COVID-19 2021-05-31 Completed Unive rsity of PFIZER VACCINE 00:00:00 [facility] SARS-COV-2 COVID-19 2021-05-31 Completed Unive rsity of PFIZER VACCINE 00:00:00 [facility] SARS-COV-2 COVID-19 2021-05-31 Completed Unive rsity of PFIZER VACCINE 00:00:00 [facility] SARS-COV-2 COVID-19 2021-05-31 Completed Unive rsity of PFIZER VACCINE 00:00:00 [facility] [place] Sars-cov-2 2020-11-[facility] [...] 2020-11-15 [facility] Vaccination [facility]:00 Influenza, 2020-06-25 [facility] quadrivalent, 00:00:00 injectable, preservative free Influenza, 2020-06-25 [facility]pleted [facility] quadrivalent, 00:00:00 injectable, preservative free Influenza, 2020-06-25 Completed [facility] quadrivalent, 00:00:00 injectable, preservative free Influenza, 2020-06-25 Completed [facility] quadrivalent, 00:00:00 injectable, preservative free Influenza, 2020-06-25 [facility] recombinant, 00:00:00 quadrivalent, injectable, preservative free Influenza, 2020-06-25 Completed [facility] recombinant, 00:00:00 quadrivalent, injectable, preservative free Influenza Virus 2020-06-25 Completed Universit y of [...] Universit y of Vaccine Recomb Quad 00:00:00 [place] [facility] IM, Preserv and ABX Branc h Free 18-64 YRS Influenza, 2020-06-25 [facility] quadrivalent, 00:00:00 injectable, preservative free Influenza, 2020-06-25 [facility]pleted [facility] quadrivalent, 00:00:00 injectable, preservative free Influenza, High Dose 2020-05-10 Completed [facility] [...] [facility] Seasonal, 00:00:00 Preservative Free Influenza High Dose 2020-05-10 Completed Unive rsity of Quad 00:00:00 [facility] Influenza High Dose 2020-05-10 Completed Unive rsity of 00:00:00 [facility] Influenza High Dose 2020-05-10 Completed Unive rsity of Quad 00:00:00 [facility] Influenza High Dose 2020-05-10 Completed Unive rsity of 00:00:00 [facility] Influenza High Dose 2020-05-10 Completed Unive rsity of Quad 00:00:00 [facility] Influenza High Dose 2020-05-10 Completed Unive rsity of 00:00:00 [facility] Influenza High Dose 2020-05-10 Completed Unive rsity of Quad 00:00:00 [facility] Influenza High Dose 2020-05-10 Completed Unive rsity of 00:00:00 [facility] Influenza, High Dose 2020-05-10 [facility] Seasonal 00:00:00 Influenza, High Dose 2020-05-10 [facility] Seasonal 00:00:00 Zoster, Recombinant 2019-08-20 [facility]pleted [facility] 00:00:00 Zoster, Recombinant 2019-08-20 [facility]pleted [facility] 00:00:00 Zoster, Recombinant 2019-08-20 Completed [facility] 00:00:00 Zoster, Recombinant 2019-08-20 Completed [facility] 00:00:00 Zoster, Recombinant 2019-08-20 Completed [facility] 00:00:00 Zoster, Recombinant 2019-08-20 [facility]pleted [facility] 00:00:00 Zoster Vaccine 2019-08-20 Completed University of Recombinant 00:00:00 [facility] Zoster Vaccine 2019-08-20 Completed University of Recombinant 00:00:00 [facility] Zoster Vaccine 2019-08-20 Completed University of Recombinant 00:00:00 [facility] Zoster Vaccine 2019-08-20 Completed University of Recombinant 00:00:00 [facility] Zoster, Recombinant 2019-08-20 [facility] 00:00:00 Zoster, Recombinant 2019-08-20 [facility]pleted [facility] 00:00:00 MMR 2019-04-30 [facility] 00:00:00 MMR 2019-04-30 [facility] 00[facility]00:00 MMR 2019-04-30 [facility] 00:00:00 MMR 2019-04-30 [facility]pleted [facility] 00:00:00 MMR 2019-04-30 [facility]pleted [facility] 00:00:00 MMR 2019-04-30 [facility] 00:00:00 MMR 2019-04-30 [facility] 00:00:00 MMR 2019-04-30 [facility] 00:00:00 MMR 2019-04-30 Completed University of 00:00:00 [facility] MMR 2019-04-30 Completed University of 00:00:00 [facility] MMR 2019-04-30 Completed University of 00:00:00 [facility] MMR 2019-04-30 Completed University of 00:00:00 [facility] Zoster, Recombinant 2019 Completed [facility] [...] Recombinant 2019 Completed [facility] 00:00:00 Zoster Vaccine 2019 Completed University of Recombinant 00:00:00 [facility] Zoster Vaccine 2019 Completed University of Recombinant 00:00:00 [facility] Zoster Vaccine 2019 Completed University of Recombinant 00:00:00 [facility] Zoster Vaccine 2019 Completed University of Recombinant 00:00:00 [facility] Pneumococcal 2013-09-10 [facility] Polysaccharide PPV23 [...] 2013-09-10 [facility] Polysaccharide PPV23 00:00:00 Influenza, 2009-08-27 Completed [facility] Unspecified 00:00:00 Influenza, 2009-08-27 Completed [facility] Unspecified 00:00:00 Influenza, 2009-08-27 Completed [facility] Unspecified 00:00:00 Influenza, 2009-08-27 Completed [facility] Unspecified 00:00:00 Influenza, 2009-08-27 Completed [facility] Unspecified 00:00:00 Influenza, 2009-08-27 Completed [facility] Unspecified 00:00:00 Influenza, 2009-08-27 Completed [facility] Unspecified 00:00:00 Influenza, 2009-08-27 Completed [facility] Unspecified 00:00:00 Influenza Virus 2009-08-27 Completed Universit y of Vaccine 00:00:00 [facility] Influenza Virus 2009-08-27 Completed Universit y of Vaccine 00:00:00 [facility] Influenza Virus 2009-08-27 Completed Universit y of Vaccine 00:00:00 [facility] Influenza Virus 2009-08-27 Completed Universit y of Vaccine 00:00:00 [facility] Vital Signs Vital Name Observation Time Observation Value Comments Source Systolic blood 2022-02-09 02:20:00 175 mm[Hg] Univer sity of pressure [facility] Diastolic blood 2022-02-09 02:20:00 80 mm[Hg] Unive rsity [facility] [place] Heart rate 2022-02-09 02:20:00 86 /min [facility] Respiratory rate 2022-02-09 02:20:00 16 /min [facility] Oxygen saturation in 2022-02-09 02:20:00 95 /min [facility] Arterial blood by [facility] Pulse oximetry Branch Body temperature 2022-02-08 23:43:00 36.83 Kelly [facility] Body weight 2022-02-08 23:43:00 88.905 kg [facility] BMI 2022-02-08 23:43:00 33.64 kg/m2 [facility] Systolic blood 2022-02-08 23:06:00 157 mm[Hg] Univer sity of [facility] Diastolic blood 2022-02-08 23:06:00 71 mm[Hg] Unive rsity [facility] [place] Heart rate 2022-02-08 23:04:00 84 /min [facility] Body temperature 2022-02-08 23:04:00 36.89 Kelly [facility] ersity of [facility] Respiratory rate 2022-02-08 23:04:00 20 /min Univ ersity of [facility] Body height 2022-02-08 23:04:00 162.6 cm Universi ty of [place] [facility] [place] Body weight 2022-02-08 23:04:00 88.905 kg Universi ty of [facility] BMI 2022-02-08 23:04:00 33.64 kg/m2 Universi ty of [facility] Oxygen saturation in 2022-02-08 23:04:00 97 /min University of Arterial blood by [facility] Pulse oximetry Branch Systolic blood 2021-11-18 14:45:00 174 mm[Hg] Univer sity of pressure [facility] Diastolic blood 2021-11-18 14:45:00 66 mm[Hg] Unive rsity of [facility] Heart rate 2021-11-18 14:45:00 76 /min Universi ty of [facility] Respiratory rate 2021-11-18 14:45:00 14 /min [facility] ersity of [facility] Oxygen saturation in 2021-11-18 14:45:00 95 /min University of Arterial blood by [facility] Pulse oximetry Branch Body temperature 2021-11-18 13:54:00 36.56 Kelly [facility] ersity of [facility] Body height 2021-11-18 11:34:00 162.6 cm Universi ty of [place] [facility] [place] Body weight 2021-11-18 11:34:00 90.4 kg Universi ty of [facility] BMI 2021-11-18 11:34:00 34.21 kg/m2 Universi ty [facility] Systolic blood 2021-09-11 20:47:00 139 mm[Hg] [facility] Diastolic blood 2021-09-11 20:47:00 77 mm[Hg] [facility] pressure Heart rate 2021-09-11 20:47:00 85 /min [facility] Body temperature 2021-09-11 20:47:00 36.28 Kelly [facility] Body height 2021-09-11 20:47:00 162.6 cm [facility] Body weight 2021-09-11 20:47:00 90.13 kg [facility] BMI 2021-09-11 20:47:00 34.11 kg[facility]m2 [facility] Body height 2021-06-05 13:40:00 162.6 cm [facility] Body weight 2021-06-05 13:40:00 90.719 kg [facility] BMI 2021-06-05 13:40:00 34.33 kg[facility]m2 [facility] Body height 2021-02-27 [...] Date / Time Performing Clinician Source Performed CONSENT/REFUSAL FOR 2022-03-13 16:56:16 Doctor Unassigned, [facility] DIAGNOSIS AND TREATMENT [place] [facility] ASSIGNMENT OF BENEFITS 2022-03-13 16:55:47 Doctor Unassigned, [facility] [place] [facility] URINALYSIS 2022-02-09 00:22:00 Evangelista Albrecht [facility] XR CHEST 1 VW 2022-02-09 00:10:40 Evangelista Albrecht [facility] LIPASE 2022-02-08 23:58:00 Evangelista Albrecht [facility] TROPONIN I 2022-02-08 23:58:00 Evangelista Albrecht [facility] COMP. METABOLIC PANEL 2022-02-08 23:58:00 Evangelista Albrecht [facility] ([id number]) [facility] CBC WITH DIFF 2022-02-08 23:58:00 Evangelista Albrecht [facility] PROTHROMBIN TIME / INR 2022-02-08 23:58:00 Evangelista Albrecht [facility] RAPID INFLUENZA A/B 2022-02-08 23:58:00 Evangelista Albrecht [facility] N-TERMINAL PRO-BNP 2022-02-08 23:58:00 Evangelista Albrecht [facility] COVID-19 (ID NOW RAPID 2022-02-08 23:58:00 Evangelista Albrecht [facility] TESTING) Medical Branch CONSENT/REFUSAL FOR 2022-02-08 23:37:29 Doctor Unassigned, [facility] DIAGNOSIS AND TREATMENT [facility] HAND MASS EXCISION 2021-11-18 12:53:00 Darrius oT [facility] POCT GLUCOSE (AUTOMATED) 2021-11-18 12:18:00 Darrius To [facility] EXTERNAL PROVIDER RECORDS 2021-11-05 06:01:00 Doctor Unassigned, [facility] MRI LUMBAR SPINE WO 2021-03-19 13:02:57 [facility] CONTRAST VA ARTHROCENTESIS 2021-02-27 14:41:46 [facility] ASPIR&/INJ MAJOR JT/BURSA W/O US XR LUMBAR SPINE AP 2020-11-13 14:56:47 Royce Rivers [facility] LATERAL FLEXION AND EXTENSION Plan of Care Planned Activity Planned Date Details Comments Source Future Scheduled 2021-09-19 COVID-19 VACCINE (1) Met [facility] Test 04:08:39 [code = COVID-19 VACCINE (1)] Future Scheduled 2021-09-19 Hepatitis C screening [facility] Test 04:08:39 (procedure) [code = 178552601] Future Scheduled 2021-09-19 Screening for [facility] Test 04:08:39 malignant neoplasm of cervix (procedure) [code = 099422035] Future Scheduled 2021-09-19 BREAST CANCER [facility] Test 04:08:39 SCREENING [code = BREAST CANCER SCREENING] Future Scheduled 2021-09-19 COLONOSCOPY SCREENING [facility] Test 04:08:39 [code = COLONOSCOPY SCREENING] Future Scheduled 2021-09-19 INFLUENZA VACCINE Method [facility] Test 04:08:39 [code = INFLUENZA VACCINE] Future Scheduled 2021-09-19 COVID-19 VACCINE (1) [facility] 04:08:39 [code = COVID-19 VACCINE (1)] Future Scheduled 2021-09-19 [facility] 04:08:39 (procedure) [code = 857891859] Future Scheduled 2021-09-19 Screening for [facility] Test 04:08:39 malignant neoplasm of cervix (procedure) [code = 714661099] Future Scheduled 2021-09-19 BREAST CANCER [facility] Test 04:08:39 SCREENING [code = BREAST CANCER SCREENING] Future Scheduled 2021-09-19 COLONOSCOPY [facility]ENING [facility] 04:08:39 [code = COLONOSCOPY SCREENING] Future Scheduled 2021-09-19 IN[facility]ZA [facility]ACCINE [facility] 04:08:39 [code = INFLUENZA VACCINE] Future Scheduled DIABETES: RETINAL EYE [facility] EXAM [code = DIABETES: RETINAL EYE EXAM] Future Scheduled DIABETIC FOOT EXAM [facility] Test [code = DIABETIC FOOT EXAM] Future Scheduled URINE MICROALBUMIN [facility] Test [code = URINE MICROALBUMIN] Future Scheduled COVID-19 VACCINE (1) [facility] [code = COVID-19 VACCINE (1)] Future Scheduled [facility] (procedure) [code = 519266148] Future Scheduled Screening for [facility] Test malignant neoplasm of cervix (procedure) [code = 809164355] Future Scheduled BREAST CANCER [facility] Hospital Test SCREENING [code = BREAST CANCER SCREENING] Future Scheduled COLONOSCOPY SCREENING [facility] Test [code = COLONOSCOPY SCREENING] Future Scheduled INFLUENZA VACCINE Method ist Hospital Test [code = INFLUENZA VACCINE] Encounters Start End Encounter Admission Attending Care Care Encounter Source Date/Time Date/Time Type Type Clinicians Facility Department ID 2022-03-11 Outpatient De Anda, CHRISTIANO [facility] [id number] Common 07:59:00 Baljeet [facility] 2022-03-07 Outpatient De Anda, CHRISTIANO [facility] [id number] Common 09:35:01 Baljeet [facility] 2022-02-20 Outpatient De Anda, CHRISTIANO [facility] [id number] Common 15:57:00 Baljeet [facility] 2022-02-07 Outpatient GIANNA ROBERTS [facility] 7501 13:35:33 [facility] 2021-10-02 Outpatient De Anad, STLMLC STLMLC [id number] Common 14:26:56 [facility]ly [facility] [address] [facility] 2021-10-02 Outpatient De Anda, STLMLC STLMLC [id number] Common 14:26:22 [facility], [facility] 00635 [facility] 2021-10-02 Outpatient De Anda, STLMLC STLC [id number] Common 14:17:54 [facility], [facility] 86812 [facility] 2021-10-02 Outpatient Guerrero, STLMLC STLC [id number] Common 14:09:58 Vira 34822 [facility] 2021-10-02 Outpatient Millender, STLMLC STLC [id number]- Common 11:05:50 Tawana 30603 [facility] 2021-10-02 Out[facility] Mill[facility] [id number] Common 11:03:36 Tawana 13140 [facility] 2021-04-11 Outpatient OK-ERNANDEZ [facility] [id number] [place] 09:44:24 JOSH Pham [facility] 2021-02-25 Outpatient [facility] [id number] [place] 10:35:57 [facility] 2022-05-15 2022-05-15 Outpatient R VIRAJ [facility] [id number] [id number] Univers 08:45:00 08:45:00 , ROSAURA [id number] [facility] 2022-05-06 2022-05-06 Outpatient Christine FOREMAN [facility] 0128 73P-20 [facility] 10:00:00 10:00:00 KESHAV [id number] [facility] 2022-05-06 2022-05-06 Outpatient Christine FOREMAN [facility] [id number] Univers 10:00:00 10:00:00 KESHAV [facility] 2022-04-23 2022-04-23 Outpatient Christine DOOLEY [facility] [id number] -[id number] Univers 13:00:00 13:00:00 PRICILLA [id number] [facility] 2022-03-13 2022-03-13 [facility] [id number] Univers 11:57:09 23:59:00 PRADIP [facility] 2022-03-13 2022-03-13 [facility] 1.2.840.114 [id number] Univers 11:57:09 23:59:00 Encounter Pradip Nahed KARLENE 350.1.13.10 ity [facility] 4.2.7.2.686 [facility] [id number] [facility] [address] [place] 2022-03-13 2022-03-13 [facility] [id number] 3P-20 Univers 12:30:00 12:30:00 PRADIP [id number] [facility] 2022-02-08 2022-02-08 Emergency X [facility] ERT [id number] Univers 18:45:00 21:46:00 EVANGELISTA [facility] 2022-02-08 2022-02-08 Emergency [facility] 1.2.840.114 [id number] Univers 18:45:00 21:46:00 Evangelista B KARLENE 350.1.13.10 i ty of [place] 4.2.7.2.686 [facility] [id number] [facility] [address] [place] 2022-02-08 2022-02-08 Nurse Nurse, [facility] 1.2.840.114 [id number] Univers 18:15:00 18:35:00 Visit Lisa Marr [facility] 350.1.13.10 ity [facility] 4.2.7.2.686 Claudio as JOANN?BLEA [phone] Sd natalee [address] MEDICAL OFFICE BUILDING 2022-02-08 2022-02-08 Outpatient R [facility] [id number] Univers 18:15:00 18:15:00 [id number] [facility] 2022-02-08 2022-02-08 [facility] [id number] Univers 18:15:00 18:15:00 LISA [facility] 2022-02-08 2022-02-08 [facility] [id number] Univers 18:00:00 18:00:00 LISA [facility] 2022-01-17 2022-01-17 [facility] [id number] 3P-20 Univers 09:30:00 09:30:00 [facility] [id number] [facility] 2022-01-17 2022-01-17 [facility] [id number] Univers 00:00:00 00:00:00 [facility] 2022-01-09 2022-01-09 [facility] [id number] 3P-20 Univers 08:00:00 08:00:00 [facility] [id number] [facility] 2022-01-09 2022-01-09 [facility] [id number] Univers 00:00:00 00:00:00 [facility] 2021-11-18 2021-11-18 Surgery [facility] 1.2.337.123 [id number] Univers 08:30:00 09:46:00 Darrius SOLER 350.1.13.10 i ty of [place].2.7.2.[place] [id number] Med [address] 2021-09-11 2021-09-11 Office LORENE Gupta [facility] 1.2.840.114 [id number] [place] 15:00:00 15:21:08 Visit Shinil SUGAR 350.1.13.58 He alth [facility] 9.2.7.2.686 [address] [id number] AND 4 WOMENS 2021-06-12 2021-06-12 EXT [facility] OP Euceda-Ernandez EXT MSRDP 1.2.840.1 14 [id number] [place] 00:00:00 00:00:00 Josh pham 350.1.13.58 Health 9.2.7.2.686 [id number] 0 2021-06-12 2021-06-12 EXT [facility] OP Ok-Walker EXT MSRDP 1.2.840.1 14 [id number] [place] 00:00:00 00:00:00 Josh pham 350.1.13.58 Health 9.2.7.2.686 [id number] 0 2021-06-05 2021-06-05 Office Zoltan [facility] 1.2.840.114 12 [id number] [place] 08:01:02 09:18:56 Visit e, Josh LUCERO 350.1.13.58 Health MEDICAL 9.2.7.2.686 PLA[place] 0 [id number] 7 2021-03-26 2021-03-26 Orders Sherron [facility] 1.2.840.114 [id number] 00:00:00 00:00:00 Only Armond LUCERO 350.1.13.58 MEDICAL 9.2.7.2.686 PLA[address] 3 [id number] 7 2021-03-26 2021-03-26 Orders Sherron [facility] 1.2.840.114 [id number] 2001 [place] 00:00:00 00:00:00 Only Armond LUCERO 350.1.13.58 [facility] MEDICAL 9.2.7.2.686 PLA[address] 2 [id number] 7 2021-03-18 2021-03-18 EXT [facility] OP OkWalker EXT MSRDP 1.2.840.1 14 [id number] [place] 00:00:00 00:00:00 Josh pham 350.1.13.58 Health 9.2.7.2.686 [id number] 0 2021-02-27 2021-02-27 Office Zoltan [facility] 1.2.840.114 12 [id number] 08:29:48 10:00:26 Visit e, Josh LUCERO 350.1.13.58 MEDICAL 9.2.7.2.686 PLA[address] 4 [id number] 7 2021-02-27 2021-02-27 Office Ok-Walker [facility] 1.2.840.114 12 [id number] [place] 08:29:48 10:00:26 Visit e, Josh LUCERO 350.1.13.58 Health MEDICAL 9.2.7.2.686 PLA[address] 1 [id number] 7 2020-11-132020-11-13 [facility] Royce [place] 1.2.840.1 [id number] Methodi 08:27:59 23:59:00 Encounter Maryann 47575.1.[address] 3.430.2.7 Hospit a .3.018370 l .8 2020-11-13 2020-11-13 Travel 1.2.840.1 1.2.302.305 1625 [id number] Methodi 00:00:00 00:00:[address] 3.430.2.7 0.2.7.3.698 Ho spita .3.894017 084.8 l .8 2020-11-13 2020-11-13 Transcribe Royce Rivers 1.2.840.1 [id number] Methodi 00:00:00 00:00:00 Orders Maryann 02209.1.[address] 3.430.2.7 Hospit a .3.626744 l .8 2020-11-09 2020-11-09 Orders Doctor CRANE 1.2.840.114 [id number] 00:00:00 00:00:00 Only Unassigned, AVA 350.1.13.10 [place] [facility] 4.2.7.2.686 [id number] 009 2020-10-05 2020-10-05 Telephone [facility] 1.2.800.920 [id number] 00:00:00 00:00:00 [facility] 350.1.13.10 Surgical 4.2.7.2.686 Specialti [id number] es [address] [place] 2020-09-27 2020-09-27 Hospital [facility] 1.2.840.114 [id number] 08:21:38 23:59:00 Encounter Darrius L Health 350.1.13.10 Surgical 4.2.7.2.686 Specialti [id number] es [address] [place] 2020-09-27 2020-09-27 Office [facility] 1.2.194.060 [id number] 07:50:24 08:32:[address] [facility] 350.1.13.10 Surgical 4.2.7.2.686 Specialti [id number] es 198 Karl[place] 2020-09-24 2020-09-24 Orders Doctor ROYCE 1.2.840.114 [id number] 00:00:00 00:00:00 Only Unassigned, AVA 350.1.13.10 [place] [facility] 4.2.7.2.686 [id number] 009 2019-12-29 2019-12-29 Outpatient [facility] [id number] Common 09:49:00 09:49:00 [facility] [address] [facility] 2019-12-27 2019-12-27 Outpatient [facility] [id number] Common 09:02:00 09:02:00 t [facility] [address] [facility] 2019-12-14 2019-12-14 Outpatient [facility] [id number] Common 14:36:00 14:36:00 t [facility] [address] [facility] 2019-11-18 2019-11-21 Inpatient PRANAV, [facility] MED [address] [place] [address] 06:22:00 13:46:00 SADIA 2019-11-08 2019-11-08 Outpatient [facility] [id number] Common 09:58:00 09:58:00 t [facility] [address] [facility] 2019-11-08 2019-11-08 Outpatient [facility] [id number] Common 09:56:00 09:56:00 t [facility] [address] [facility] 2019-10-24 2019-10-24 Outpatient [facility] [id number] Common 21:19:00 21:19:00 t [facility] [address] [facility] 2019-10-24 2019-10-24 Outpatient [facility] [id number] Common 21:06:00 21:06:00 t [facility] [address] [facility] 2019-10-24 2019-10-24 Outpatient [facility] 29 [id number] Common 09:30:00 09:30:[address] [facility] 2019-09-13 2019-09-13 Outpatient [facility] [id number] Common 13:20:00 13:20:[address] [facility] 2019-08-26 2019-08-26 Outpatient [facility] [id number] Common 08:45:00 08:45:[address] [facility] 2019-08-22 2019-08-22 Outpatient [facility] [id number] Common 01:08:00 01:08:[address] [facility] 2019-08-17 2019-08-17 Outpatient [facility] [id number] Common 09:51:00 09:51:[address] [facility] 2019-08-16 2019-08-16 Outpatient [facility] [id number] Common 13:20:00 13:20:[address] [facility] 2019-07-21 2019-07-21 Outpatient [facility] [id number] Common 14:47:00 14:47:[address] [facility] 2019-07-15 2019-07-15 Outpatient [facility] [id number] Common 10:09:00 10:09:[address] [facility] 2019-07-15 2019-07-15 Outpatient [facility] [id number] Common 08:40:00 08:40:[address] [facility] 2019-07-11 2019-07-11 Outpatient [facility] 28 [id number] Common 13:46:00 13:46:[address] [facility] 2019-06-28 2019-06-28 Outpatient [facility] [id number] Common 02:54:00 02:54:[address] [facility] 2019-06-24 2019-06-24 Outpatient [facility] [id number] Common 09:00:00 09:00:[address] [facility] 2019-06-23 2019-06-23 Outpatient [facility] [id number] Common 15:00:00 15:00:[address] [facility] 2019-05-30 2019-05-30 Outpatient [facility] 27 [id number] Common 15:13:00 15:13:[address] [facility] 2019-05-05 2019-05-05 Outpatient [facility] [id number] Common 15:33:00 15:33:[address] [facility] 2019-04-28 2019-04-28 Outpatient [facility] 27 [id number] Common 09:02:00 09:02:[address] [facility] 2019-04-26 2019-04-26 Outpatient [facility] [id number] Common 13:43:00 13:43:[address] [facility] 2019-04-25 2019-04-25 Outpatient [facility] 27 [id number] Common 22:56:00 22:56:[address] [facility] 2019-04-24 2019-04-24 Outpatient [facility] 27 [id number] Common 11:41:00 11:41:[address] [facility] 2019-04-15 2019-04-15 Outpatient [facility] [id number] Common 09:07:00 09:07:[address] [facility] 2019-04-15 2019-04-15 Outpatient [facility] [id number] Common 08:00:00 08:00:[address] [facility] 2019-03-24 2019-03-24 Outpatient Andreia Boswell [id number] Common 09:27:00 09:27:00 Donte Kent Sp yaron DO [facility] 2019-03-16 2019-03-16 Outpatient Reynaldo Jacobst 26 [id number] Common 09:16:00 09:16:[address] [facility] 2019-02-22 2019-02-22 Outpatient Reynaldo [facility] 26 [id number] Common 09:03:00 09:03:[address] [facility] 2019-02-18 2019-02-18 [facility] [id number] Common 18:38:00 18:38:[address] [facility] 2019-02-18 2019-02-18 Outpatient Reynaldo [facility] 26 [id number] Common 15:06:00 15:06:[address] [facility] 2019-02-16 2019-02-16 Outpatient Amritsuri [facility] 26 [id number] Common 16:06:00 16:06:[address] [facility] 2019-02-15 2019-02-15 Outpatient Amritsuri [facility] 25 [id number] Common 15:20:00 15:20:[address] [facility] Results Test Description Test Time Test Comments Results Result Comments Source TROPONIN I 2022-02-09 00:41:19 Test Item Value Reference Range Interpretation Comme nts TROPONIN I (test code = <0.012 See_Comment [Au tomated message] The [id number]) system which ge nerated this result tra nsmitted reference range : <=0.034 ng/mL. The refe rence range was not u sed to interpret this result as normal/abnormal . ARIANA (test [...] biotin. Lab Interpretation Normal (test code = 37853-4) [id number] 00:38:03 Test Item Value Reference Range Interpretation Comments NT-proBNP (test code 28 pg/mL See_Comment [Autom ated = 0248450688) message] The system which generated this result transmitted reference range : <=125. The reference range was not used to interpret this result as normal/abnormal . ARIANA (test code = ARAINA) Biotin has been reported to cause a negative bias, interpret results relative to patient's use of biotin. Lab Interpretation Normal (test code = 60077-5) [facility] (65773)2022-02-09 00:29:21 Test Item Value Reference Range Interpretation Comments NA (test code = 143 mmol/L 135-145 0659022515) K (test code = 4.1 mmol/L 3.5-5.0 6926783028) CL (test code = 102 mmol/L 98-108 1082078679) CO2 TOTAL (test code = 30 mmol/L 23-31 0409175141) AGAP (test code = 2-16 3968668035) BUN (test code = 14 mg/dL 7-23 4391594163) GLUCOSE (test code = 138 mg/dL 70-110 H 9246453845) CREATININE (test code = 0.58 mg/dL 0.50-1.04 2097674161) TOTAL BILI (test code = 0.4 mg/dL 0.1-1.0 5333932246) CALCIUM (test code = 9.7 mg/dL 8.6-10.6 4975055867) T PROTEIN (test code = 7.1 g/dL 6.3-8.2 3828123212) ALBUMIN (test code = 4.3 g/dL 3.5-5.0 8973677794) ALK PHOS (test code = 75 U/L 34-122 8907105279) ALTv (test code = 17 U/L 5-35 1742-6) AST(SGOT) (test code = 27 U/L 13-40 5815918665) eGFR (test code = mL/min/1.73m2 2235522710) ARIANA (test code = ARIANA) Association of [...] tests). Lab Interpretation Abnormal (test code = 48213-7) [facility] 00:29:01 Test Item Value Reference Range Interpretation Comments LIPASE (test code = 2131621014) 68 U/L 0-220 Lab Interpretation (test code = Normal 80958-3) [facility] / [id number] 00:26:00 Test Item Value Reference Range Interpretation Comments PROTIME PATIENT (test See_Comment [Auto mated message] code = 5964-2) The system edulio generated this result transmitted ref erence range: 12.0 - 1 4.7 Seconds. The re ference range was not u sed to interpret this result as normal/abnor mal. INR (test code = 6301-6) Nor mal INR <1.1; Warfarin Therap eutic range 2.0 to 3. 0 or 2.5 to 3.5, dep ending upon the indica tions. Lab Interpretation (test Normal code = 05285-7) [facility] WITH [id number] 00:12:57 Test Item Value Reference Range Interpretation Comments WBC (test code = See_Comment [Automated 7190-2) message] The sy stem which generated this [...] as normal/abnormal . HGB (test code = 13.2 g/dL 11.6-15.0 718-7) HCT (test code = 39.0 % 35.7-45.2 4544-3) MCV (test code = 87.8 fL 80.6-95.5 787-2) MCH (test code = 29.7 pg 25.9-32.8 785-6) MCHC (test code = 33.8 g/dL 31.6-35.1 786-4) RDW-SD (test code = 41.7 fL 39.0-49.9 46132-6) RDW-CV (test code = 12.9 % 12.0-15.5 788-0) PLT (test code = See_Comment [Automated 777-3) message] The sy stem which generated this result transmitted reference range : 166 - 358 10*3/ ?L. The reference r sharon was not used to interpret this result as normal/abnormal . MPV (test code = 9.8 fL 9.5-12.9 81044-8) NRBC/100 WBC (test See_Comment [Automat ed code = 1753293088) message] The system which generated this result transmitted reference range : 0.0 - 10.0 /100 WBCs. The refer ence range was not u sed to interpret th is result as normal/abnormal . NRBC x10^3 (test code <0.01 See_Comment [Auto mated = 7549390202) message] The s ystem which generated this result transmitted reference range : 10*3/?L. The reference range was not used to interpret this result as normal/abnormal . GRAN MAT (NEUT) % 56.9 % (test code = 770-8) IMM GRAN % (test code 0.30 % = 1923233380) LYMPH % (test code = 32.0 % 736-9) MONO % (test code = 6.8 % 5905-5) EOS % (test code = 3.1 % 713-8) BASO % (test code = 0.9 % 706-2) GRAN MAT x10^3(ANC) 5.77 10*3/uL 1.88-7.09 (test code = 0866555138) IMM GRAN x10^3 (test 0.03 10*3/uL 0.00-0.06 code = 9709991968) LYMPH x10^3 (test code 3.24 10*3/uL 1.32-3.29 = 731-0) MONO x10^3 (test code 0.69 10*3/uL 0.33-0.92 = 742-7) EOS x10^3 (test code = 0.31 10*3/uL 0.03-0.39 711-2) BASO x10^3 (test code 0.09 10*3/uL 0.01-0.07 H = 704-7) Lab Interpretation Abnormal (test code = 15304-0) [facility]AUT[facility])2021-11-18 12:23:15 Test Item Value Reference Range Interpretation Comments POCT GLU (test code = 3850642909) 79 mg/dL 70-110 Lab Interpretation (test code = Normal 71388-8) [facility]Asp: L greater trochanteric bursa 2021-02-27 14:41:46Josh [...] to verify the correct patient, procedure, equipment, print support specialist and site/side marked as required. Patient was prepped and draped in the usual sterile fashion.[facility]- XR HIP W/PEL UNI 2+V [id number] 10:05:00 [facility] 1965 Sex: F Patient Name: ARI GODOY Unit No: [id number] EXAMS: CPT CODE: [id number] XR HIP W/[place] UNI 2+[place] [address] APpelvis with frog-leg view left hip LOCATION: T18 [...] Lorri Orig Print D/T: S: 12/14/2020 (1009) [facility] NAME: ARI GODOY [address] [facility], [address] PHYS: [place] [address] : 1965 AGE: 55 SEX: F LOC: VICKY PHONE #: [phone] EXAM DATE: 12/14/2020 STATUS: REG CLI FAX #: [phone] RADIOLOGY NO: PAGE 1 Signed ReportXR Lumbar Spine Ap Lateral Flexion And [id number] 18:32:20EXAMINATION: Lateral neutral, flexion and extension views; AP view of the lumbar spine in the standing position. 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 FINDINGS: There is relatively stable anterior and posterior fusion from L5 to S1. The vertebral body and disc space height and alignment and degenerative changes are relatively stable. There are a few smallventral and lateral osteophytes. The lumbar curvature is convex towards the right. There is facet hypertrophy greater in the lower lumbar region. There is greater posterior disc space narrowing throughout the lumbar region. There is no significant change in alignment with flexion versus extension. There is approximately 1.5 mm anterolisthesis at L4-5. There is mild calcification of the moya of some of the arteries. There are surgical clips in the pelvis and right upper quadrant. IMPRESSION: Relatively stable postoperative and degenerative changes. [facility]- [id number] Interface, Radiology Results 11/13/2020 12:35 PM CST EXAMINATION: Lateral neutral, flexion and extension views; AP [...] greater posterior disc space narrowing throughout the lumbarregion. There is no significant change in alignment with flexion versus extension. There is approximately 1.5 mm anterolisthesis at L4-5.There is mild calcification of the moya of some of the arteries.There are surgical clips in the pelvis and right upper quadrant.IMPRESSION:Relatively stable postoper ative and degenerative changes.[id number]"
--- NOTE | 2022-04-21 14:35 | ER ---
Nurse's Notes [facility] Name: Charlotte Ruvalcaba Age: 57 yrs Sex: Female : 1965 Arrival Date: 04/21/2022 Time: 12:07 Bed External Waiting [facility] MD: Diagnosis: Sciatica, left side Presentation: 04/21 13:02 Chief complaint: Patient states: Pain in L buttocks that started yesterday, radiates to ph back and leg, reports falling last week d/t pain. Coronavirus screen: Vaccine status: Patient reports receiving the 2nd dose of the covid vaccine. Ebola Screen: No symptoms or risks identified at this time. Initial Sepsis Screen: Does the patient meet any 2 criteria? No. Patient's initial sepsis screen is negative. Does the patient have a suspected source of infection? No. Patient's initial sepsis screen is negative. Risk Assessment: Do you want to hurt yourself or someone else? Patient reports no desire to harm self or others. Onset of symptoms was April 21, 2022. 13:02 Method Of Arrival: Ambulatory ph 13:02 Acuity: RASHAD 4 ph Triage Assessment: 13:05 General: Appears in no apparent distress. Behavior is calm, cooperative, appropriate ph for age. Pain: Complains of pain in left gluteus tyrone and left low back. Neuro: No deficits noted. Derm: Skin is healthy with good turgor, Skin is pink, warm \T\ dry. Musculoskeletal: Circulation, motion, and sensation intact. Range of motion: intact in all extremities. Historical: - Allergies: 13:07 NKDA; ph - PMHx: 13:07 Asthma; breast cancer; chronic pain, sees pain doctor; COPD; Diabetes - IDDM; Gout; ph Hypertension; Hypothyroidism; - PSHx: 13:07 back sx; ph - Immunization history:: Adult Immunizations up to date. - Social history:: Smoking status: Patient denies any tobacco usage or history of. Screenin:05 Abuse screen: Denies threats or abuse. Denies injuries from another. Nutritional ph screening: No deficits noted. Tuberculosis screening: No symptoms or risk factors identified. Fall Risk None identified. Vital Signs: 13:02 BP 136 / 56; Pulse 82; Resp 18; Temp 98.0; Pulse Ox 98% on R/A; Weight 88.45 kg; Height ph 5 ft. 4 in. (162.56 cm); 13:02 Body Mass Index 33.47 (88.45 kg, 162.56 cm) ph ED Course: 12:07 Patient arrived in ED. am2 12:12 Efren Addison PA is PHCP. cp 12:12 Isael Grier DO is Attending Physician. cp 13:07 Triage completed. ph 13:08 Arm band placed on Patient placed in waiting room, Patient notified of wait time. ph 14:34 Rebecca Gleason RN is Primary Nurse. ph 21:42 Primary Nurse role handed off by Rebecca Gleason RN cp 21:42 Attending Physician role handed off by Isael Grier DO cp 21:45 Isael Grier DO is Attending Physician. cp Administered Medications: 19:36 Not Given (Patient Eloped): Lidoderm Patch 5 % (700 mg/patch) 1 patches Topical once; ph leave on for 12 hours; cover most painful area; may cut into smaller pieces 19:36 Not Given (Patient Eloped): morphine 10 mg IM once ph 19:36 Not Given (Patient Eloped): Decadron (dexamethasone) 10 mg IM once ph Outcome: 14:34 Patient left the ED. ph 19:00 Patient left the ED. vc1 21:44 Discharge ordered by . cp Signatures: Rebecca Gleason RN RN Efren Addison PA PA cp Sheila Peralta am2 Marylu He RN RN vc1 Corrections: (The following items were deleted from the chart) 22:50 22:50 Patient left the ED. vc1 vc1
--- NOTE | 2022-04-21 14:36 | EDPHYS ---
Physician Documentation [facility] Name: Charlotte Ruvalcaba Age: 57 yrs Sex: Female : 1965 Arrival Date: 04/21/2022 Time: 12:07 Bed External Waiting Private MD: ED Physician Isael Grier HPI: 04/21 13:38 This 57 yrs old Black Female presents to ER via Ambulatory with complaints of Leg Pain, cp side pain. 13:38 The patient presents with pain that is chronic. cp 13:38 The symptoms are located in the lumbar area and left low back. The pain radiates to the cp left buttock. Onset: The symptoms/episode began/occurred since suffering fall in 2018. Associated signs and symptoms: Pertinent negatives: abdominal pain, chest pain, constipation, fever, incontinence, numbness, urinary retention, weakness. Severity of symptoms: in the emergency department the symptoms are unchanged, despite home interventions, takes prescribed Hydrocodone for pain prescribed by DR Deleon . 13:40 Patient denies bowel and/or bladder incontinence, denies saddle anesthesia. cp Historical: - Allergies: 13:07 NKDA; ph - PMHx: 13:07 Asthma; breast cancer; chronic pain, sees pain doctor; COPD; Diabetes - IDDM; Gout; ph Hypertension; Hypothyroidism; - PSHx: 13:07 back sx; ph - Immunization history:: Adult Immunizations up to date. - Social history:: Smoking status: Patient denies any tobacco usage or history of. ROS: 13:45 Constitutional: Negative for body aches, chills, fever, poor PO intake. cp 13:45 Eyes: Negative for injury, pain, redness, and discharge. cp 13:45 ENT: Negative for drainage from ear(s), ear pain, sore throat, difficulty swallowing, difficulty handling secretions. 13:45 Cardiovascular: Negative for chest pain, edema, palpitations. 13:45 Respiratory: Negative for cough, shortness of breath, wheezing. 13:45 Abdomen/GI: Negative for abdominal pain, nausea, vomiting, and diarrhea, constipation, bowel incontinence. 13:45 Back: Positive for pain at rest, pain with movement, of the left low back, Negative for injury or acute deformity. 13:45 : Negative for urinary symptoms, difficulty urinating, bladder incontinence. 13:45 Skin: Negative for cellulitis, rash. 13:45 Neuro: Negative for altered mental status, headache, numbness, tingling, weakness, saddle anesthesia. 13:45 All other systems are negative. Exam: 13:50 Constitutional: The patient appears in no acute distress, alert, awake, non-toxic, well cp developed, well nourished, uncomfortable. 13:50 Head/Face: Normocephalic, atraumatic. cp 13:50 Eyes: Periorbital structures: appear normal, Conjunctiva: normal, no exudate, no injection, Sclera: no appreciated abnormality, Lids and lashes: appear normal, bilaterally. 13:50 ENT: External ear(s): are unremarkable, Nose: is normal, Mouth: Lips: moist, Oral mucosa: pink and intact, moist, Posterior pharynx: Airway: no evidence of obstruction, patent. 13:50 Chest/axilla: Inspection: normal. 13:50 Cardiovascular: Rate: normal. 13:50 Respiratory: the patient does not display signs of respiratory distress, Respirations: normal, no use of accessory muscles, no retractions, Breath sounds: are clear throughout, no decreased breath sounds, no stridor, no wheezing. 13:50 Abdomen/GI: Inspection: abdomen appears normal, Palpation: abdomen is soft and non-tender, in all quadrants. 13:50 Back: pain, that is moderate, of the left low back. 13:50 Skin: cellulitis, is not appreciated, no rash present. 13:50 Neuro: Orientation: to person, place \T\ time. Mentation: is normal, Motor: moves all fours, strength is normal, Sensation: no obvious gross deficits, Gait: is steady, Deep tendon reflexes are 2+ (normal) in the right Achilles and left Achilles. Vital Signs: 13:02 BP 136 / 56; Pulse 82; Resp 18; Temp 98.0; Pulse Ox 98% on R/A; Weight 88.45 kg; Height ph 5 ft. 4 in. (162.56 cm); 13:02 Body Mass Index 33.47 (88.45 kg, 162.56 cm) ph MDM: 14:00 Data reviewed: vital signs, nurses notes. cp 15:00 ED course: VSS. Patient left ED prior to reevaluation. cp 21:44 Patient medically screened. cp Administered Medications: 19:36 Not Given (Patient Eloped): Lidoderm Patch 5 % (700 mg/patch) 1 patches Topical once; ph leave on for 12 hours; cover most painful area; may cut into smaller pieces 19:36 Not Given (Patient Eloped): morphine 10 mg IM once ph 19:36 Not Given (Patient Eloped): Decadron (dexamethasone) 10 mg IM once ph Disposition: 21:41 Co-signature as Attending Physician, Isael BARLOW was immediately available on-site ms3 in the Emergency Department for consultation in the care of the patient.. Disposition Summary: 04/21/22 21:44 Discharge Ordered Location: Home cp Problem: chronic cp Condition: Stable cp Symptoms: are unchanged(04/21/22 21:45) cp Diagnosis - Sciatica, left side cp Followup: cp - With: Private Physician - When: 1 - 2 days - Reason: Recheck today's complaints Discharge Instructions: - Discharge Summary Sheet cp - Sciatica cp - Back Exercises cp Forms: - Medication Reconciliation Form cp - Thank You Letter cp - Antibiotic Education cp - Prescription Opioid Use cp Prescriptions: - Lidoderm 5 % Topical adhesive patch,medicated - apply 1 patch by TOPICAL route once daily; 10 patch; Refills: 0, Product cp Selection Permitted - Cyclobenzaprine 10 mg Oral Tablet - take 1 tablet by ORAL route every 8 hours As needed; 30 tablet; Refills: 0, cp Product Selection Permitted - Medrol (Meng) 4 mg Oral Tablets, Dose Pack - take 1 tablet by ORAL route as directed - follow package instructions; 1 cp packet; Refills: 0, Product Selection Permitted Signatures: Rebecca Gleason RN RN ph Efren Addison PA PA cp Isael Grier DO DO ms3 Corrections: (The following items were deleted from the chart) 21:44 14:34 post triage evaluation and consult ph cp 21:44 14:34 wait time ph cp :45 21:44 have improved cp cp
[2022-04-21 14:45] VITALS: BP 136/56; TEMP 98; O2SAT 98
== END 2022-04-21 22:50 | disposition home or self-care (01) ==
LOC: ER 11:57
DX: M54.32 Sciatica, left side (principal)
CPT/HCPCS: 99281

== ENCOUNTER 2022-05-14 07:25 | Emergency (ER) | payer OTHER ==
--- OUTSIDE RECORDS SUMMARY | 2022-05-14 07:32 | XMS REPORT | Continuity of Care Document ---
:1965 Author Organization [facility] t Address [address] [place] [address] Care Team Providers Name Role Phone LauraNaseem Gilmer Primary Care Physician Baljeet De Anda Attending Clinician Unavailable GIANNA ROBERTS Attending Clinician Unavailable Vira Guerrero Attending Clinician Unavailable Tawana Ramirez Attending Clinician Unavailable JOSH BENNETT Attending Clinician Unavailable Armond Montoya MD Attending Clinician [phone] ALE FOREMAN Attending Clinician Unavailable Ale Banda Attending Clinician Chanel Gupta DO Attending Clinician Josh Bennett Attending Clinician Armond Siu APRN Attending Clinician Francisco Andrea Attending Clinician Unavailable Royce Rivers MD Attending Clinician Doctor Unassigned, Vowinckel Attending Clinician Unavailable Delvin Nick Attending Clinician Darrius To MD Attending Clinician Gilmer Hurst Attending Clinician SADIA FARR I Attending Clinician Unavailable Sadia Farr I Attending Clinician Referred, Self Admitting Clinician Unavailable SADIA FARR I Admitting Clinician Unavailable Sadia Farr I Admitting Clinician Payers Payer Name Policy Type Policy Number Effective Date Expiration Date Klarissa LOFTON [place] [id number] 2016 MEDICAID [id number] 00:00:00 Problems Condition Condition Condition Status Onset Resolution Last Treating Co mments Source Name Details Category Date Date Treatment Clinician Date DX: DX: Diagnosis Active 2022-02-10 Mem oria R11.0=NAUS R11.0=NAUS 01-27 10:13:00 l EA/R10.12= EA/R10.12= 00:00: He rmann LEFT UPPER LEFT UPPER 00 QUADR QUADR Active 01/27/2022 [facility] Ganglion Ganglion Disease Active Overview: Un donaldo cyst of cyst of 11-05 Formattin ity o f finger finger 00:00: g of this [place] 00 note Medical might be Branch different from the original. Added automatic ally from request for surgery [id number] SACROLIAC SACROLIAC Diagnosis Active 2020-092021-06-25 Memoria LT, MAGAILE LT, MAGALIE 0-05 13:48:00 l HIP HIP 08:00: Ferdinand BURSITIS, BURSITIS, 00 IT BAND IT BAND Active 06/11/2021 [facility] M53.3 - M53.3 - Diagnosis Active 2021-04-03 Memoria SACROCOCCY SACROCOCCY 03-05 07:05:00 l GEAL GEAL 00:01: Ferdinand DISORDERS, DISORDERS, 00 NOT NOT Active 03/05/2021 OP[facility] Disease Active [facility] trochanter trochanter 02-27 He [...] Iliotibial Disease Active U T band band 6-23 Health syndrome syndrome 00:00: of left of left 00 side side S/P S/P Disease Active 2019-09 Univers revision revision 09-08 ity of of total of total 00:00: [place] knee knee 00 Medical Branch S/P total S/P total Disease Active 2019-09 Overview: Univers knee knee Formattin ity of replacemen replacemen 00:00: g of this [place] t, right t, right 00 note Medica l might be Branch different from the original. Added automatic ally from request for surgery [id number] Painful Painful Disease Active Univers orthopaedi orthopaedi 04-12 it y of c hardware c [place] I65.22 I65.22 Diagnosis Active 2019-11-24 M emoria Active 11-07 21:49:00 l 11/08/2019 00:00: Andrei kaur [address] [facility] N/A N/A Diagnosis Active 2019-11-16 Mem oria Active 11-07 09:55:00 l 11/08/2019 00:00: Andrei kaur [address] [facility] Degenerati Degenerati Disease Active 2017-09 M ethodi on of on of 09-15 st interverte interverte 00:00: Ho spita bral disc bral disc 00 l of of lumbosacra lumbosacra l region l region Thumb Thumb Disease Active Univers pain, left pain, left 01-13 it y of 00:00: Medical Branch Total knee Total knee Disease Active U nivers replacemen replacemen 5-16 it y of t status t status 00:00: Medical Branch Right knee Right knee Disease Active U nivers pain pain 01-10 ity of 00:00: Medical Branch Lump or Lump or Disease Active Univers mass in mass in - ity of breast breast 00:00: Medical Branch 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 ICD10 Diagnosis [employer] Utility Uncontroll Uncontroll Problem Active C ommon ed type 2 ed type 2 Spir it diabetes diabetes - [facility] mellitus mellitus St with with [facility] hyperglyce hyperglyce Me dical [facility] Anxiety Anxiety Problem Active Common [facility] Asthma, Asthma, Problem Active Common unspecifie unspecifie Sp yaron d asthma d asthma - [facility] severity, severity, St unspecifie unspecifie Verenice kes d whether d whether Medi cipriano complicate complicate Ce nter d, d, unspecifie unspecifie d whether d whether persistent persistent Diabetes Diabetes Problem Active Commo n [facility] Swelling Swelling Problem Active Commo n [facility] High blood High blood Problem [facility] pressure [facility] Sinus Sinus Problem Active Common problem problem [facility] High High Problem Active Common cholestero cholestero Sp yaron l [facility] Depression Depression Problem Active C ommon with with Spirit anxiety anxiety [facility] Acquired Acquired Problem Active Commo n hypothyroi hypothyroi Sp yaron dism dism [facility] Chronic Chronic Problem Active Common pain pain Spirit syndrome syndrome - [facility] Polyarthra Polyarthra Problem Active C ommon lgia lgia [facility] Gastroesop Gastroesop Problem Active C ommon hageal hageal Spirit reflux reflux - [facility] disease, disease, St esophagiti esophagiti Verenice kes s presence s presence Me dical not not Center specified specified Chronic Chronic Problem Active Common obstructiv obstructiv Sp yaron e e - [facility] pulmonary pulmonary St disease, disease, [facility] unspecifie unspecifie Me dical d COPD d COPD Center type type Abnormal Abnormal Problem Active Commo n urine odor urine odor Sp yaron [facility] Hoarseness Hoarseness Problem Active C ommon [facility] Hyperlipid Hyperlipid Problem Active C ommon emia, emia, Spirit unspecifie unspecifie - [facility] d d St hyperlipid hyperlipid Verenice [facility] emia type emia type [facility] Sore Sore Problem Active Common throat throat [facility] Non-intrac Non-intrac Problem Active C ommon table table Spirit vomiting vomiting - [facility] with with St nausea, nausea, [facility] unspecifie unspecifie Me dical d vomiting d vomiting Ce nter type type Chest Chest Problem Active Common tightness tightness Spir [facility] Exposure Exposure Problem Active Commo n to mold to mold [facility] Wheezing Wheezing Problem Active Commo n [facility] Shortness Shortness Problem Active Com mon of breath of breath Spir [facility] Itching Itching Problem Active Common [facility] Muscle Muscle Problem Active Common cramping cramping [facility] Right leg Right leg Problem Active Com mon pain pain [facility] Acute Acute Problem Active Common right-side right-side Sp yaron d thoracic d thoracic [facility] back pain back pain [facility] Low back Low back Problem Active Commo n pain pain [facility] Other Other Problem Active Common chronic chronic [facility] pain [facility] Lumbago Lumbago Problem Active Common with with Spirit sciatica, sciatica, - [facility] I right side right side [facility] Status Status Problem Active Common post fall post fall Spir [facility] Dizziness Dizziness Problem Active Com mon [facility] Imbalance Imbalance Problem Active Com mon [facility] Difficulty Difficulty Problem Active C ommon sleeping sleeping [facility] Acute Acute Problem Active Common stress stress Spirit reaction reaction [facility] 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 Spirit both both [facility] carotid carotid arteries [facility] Stenosis Stenosis Problem Active Commo n of left of left Spirit carotid carotid - [facility] artery artery [facility] Status Status Problem Active Common post CVA post CVA [facility] Stenosis Stenosis Problem Active Commo n of right of right Spirit carotid carotid - [facility] artery artery [facility] Obesity Obesity Disease Active Univers (BMI (BMI ity of 30-39.9) 30-39.9) [place] [facility] Occlusion Occlusion Problem 2019-11-23 Memoria and and 21:46:33 l stenosis stenosis Andrei n of left of left carotid carotid artery artery 11/23/2019 [facility] Carotid Carotid Problem Active 2021-07-27 Me moria artery artery 01:20:12 l stenosis stenosis Andrei n (disorder) (disorder) Active Problem 07/27/2021 [facility], [facility] [place],[facility], [facility] Carpal Carpal Problem Active 2021-07-27 Brennen oscar 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 Andrei n (disorder) (disorder) Active Problem 07/27/2021 [facility], [facility] [place],[facility], [facility] Diabetes Diabetes Problem Active 2021-07-27 Memoria mellitus mellitus 01:20:12 l (disorder) (disorder) He rmann Active Problem 07/27/2021 [facility] Neuro, [facility] [place],[facility], [facility] Diabetes Diabetes Problem Active 2021-07-27 Memoria mellitus mellitus 01:20:12 l type 2 type 2 Solomon (disorder) (disorder) Active Problem 07/27/2021 [facility] Neuro, [facility] [place],[facility], [facility] Disorder Disorder Problem Active 2021-07-27 Memoria of carotid of carotid 01:20:12 l artery artery Ferdinand (disorder) (disorder) Active Problem 07/27/2021 [facility] her Neuro, [facility] [place],[facility], [facility] Hypertensi Hypertens Problem Active 2021-07-27 Memoria ve gissel 01:20:12 l disorder, disorder, Herm mary systemic systemic arterial arterial (disorder) (disorder) Active Problem 07/27/2021 [facility] Neuro, [facility] [place],[facility], [facility] Hyperlipid Hyperlipi Problem Active 2021-07-27 Memoria emia demia 01:20:12 l (disorder) (disorder) He rmann Active Problem 07/27/2021 [facility] Neuro, CHARLEEN Carrasco,[facility], [facility] Hypothyroi Hypothyro Problem Active 2021-07-27 Memoria dism idism 01:20:12 l (disorder) (disorder) He rmann Active Problem 07/27/2021 [facility] her Neuro,[facility] CAHRLEEN Carrasco,[facility], [facility] Simple Simple Problem Active 2021-07-27 Brennen oscar obesity obesity 01:20:12 l (disorder) (disorder) He rmann Active Problem 07/27/2021 [facility] Group[facility] Neuro, CHARLEEN Carrasco,[facility], [facility] OCCLUSION OCCLUSION Diagnosis Active 2019-11-24 Memoria AND AND 21:49:00 l STENOSIS STENOSIS Andrei n OF LEFT OF LEFT CAROTID A CAROTID A Active [facility] Allergies, Adverse Reactions, Alerts Allergy Allergy Status Severity Reaction(s) Onset Inactive Treating Comm ents Source Name Type Date Date Clinician NO KNOWN Drug Active Univers ALLERGIE Class ity of S [facility] Family History Family Member Diagnosis Comments Start Date Stop Date Source Natural father [facility] Natural mother COPD [facility] mother [facility] Natural mother [facility] Social History Social Habit Start Date Stop Date Quantity Comments Source History of tobacco Cigarette Smoker [facility] Exposure to 2022-04-26 2022-05-06 Not sure University SARS-CoV-2 (event) 00:00:00 10:12:[address] [facility] Tobacco use and 2021-02-27 2021-02-27 Smokeless [facility] exposure 00:00:00 00:00:00 tobacco non-user Social History 2019-11-14 2019[facility] 21:12:20 21:12:20 Alcohol intake 2018-07-19 2018-07-19 Current [facility] 00:00:00 00:00:00 non-drinker of Hospital alcohol (finding) Cigarettes smoked 2018-07-15 2018-07-[address] current (pack per 00:00:00 00:00:00 Hospita l day) - Reported Sex Ass[birth year] At [birth year] [facility] 00[facility] Smoking Status Start Date Stop Date Source Never smoked tobacco [facility] Ex-smoker 2018-07-15 00:00:00 2018-07-15 00:00:00 [facility] Medications Ordered Filled Start Stop Current Ordering Indication Dosage Frequency Signature Comments Components Source Medication Medication Date Date Medication? Clinician (SIG) Name Name methylPREDN Yes [id number] 84mg Take 21 Univers ISolone 8-26 [id number] tablets by ity of (MEDROL, 00:00: mouth [place] ARLENE,) 4 mg 00 SEE-INSTRU Med ical tablets CTIONS. Branch follow package directions cyclobenzap Yes [id number] 10mg Take 1 Univers rine 10 mg 8-26 [id number] tablet by it y of tablet 00:00: mouth in [place] 00 the Medical morning Branch and 1 tablet at noon and 1 tablet in the evening. methylPREDN Yes [id number] 84mg Take 21 Univers ISolone 8-26 [id number] tablets by ity of (MEDROL, 00:00: mouth [place] ARLENE,) 4 mg 00 SEE-INSTRU Med ical tablets CTIONS. Branch follow package directions cyclobenzap Yes [id number] 10mg Take 1 Univers rine 10 mg 8-26 [id number] tablet by it y of tablet 00:00: mouth in [place] 00 the Medical morning Branch and 1 tablet at noon and 1 tablet in the evening. ondansetron Yes [id number] 4mg Take 1 Univers 4 mg 6-04 tablet by ity of disintegrat 00:00: mouth [place] ing tablet 00 every 12 Medic al (twelve) Branch hours as needed for Nausea and Vomiting (N/V). ondansetron 2021-0 Yes [id number] 4mg Take 1 Univers 4 mg 6-04 tablet by ity of disintegrat 00:00: mouth [place] ing tablet 00 every 12 Medic al (twelve) Branch hours as needed for Nausea and Vomiting (N/V). dicyclomine 2021-0 Yes [id number] 20mg Take 1 Univers 20 mg 3-29 tablet by ity of tablet 00:00: mouth 4 [place] 00 (four) Medical times Branch daily. ondansetron 2021-0 Yes [id number] 4mg Take 1 Univers 4 mg 3-29 tablet by ity of disintegrat 00:00: mouth [place] ing tablet 00 every 4 Medica l (four) Branch hours as needed for Nausea and Vomiting (N/V). dicyclomine Yes [id number] 20mg Take 1 Univers 20 mg 3-29 tablet by ity of tablet 00:00: mouth 4 [place] 00 (four) Medical times Branch daily. ondansetron Yes [id number] 4mg Take 1 Univers 4 mg 3-29 tablet by ity of disintegrat 00:00: mouth [place] ing tablet 00 every 4 Medica l (four) Branch hours as needed for Nausea and Vomiting (N/V). AMITRIPTYLI Yes 1 tab Unive rs NE 50 MG 3-14 every AM ity of ORAL TAB 11:59: [address] simvastatin Yes 40mg Take 40 mg Univers (ZOCOR) 40 3-14 by mouth ity o f mg tablet 11:59: at [place] [address] bedtime. Medical Branch levothyroxi Yes 50ug Take 50 Uni vers ne 3-14 mcg by ity of (SYNTHROID) 11:59: mouth [place] 50 mcg 28 every Medical tablet morning. Branch ALBUTEROL Yes 1{puff} Inhale 1 U nivers SULFATE HFA 3-14 Puff as ity o f INHALE 11:59: needed. [address] HYDROcodone Yes 1{tbl} Take 1 Un donaldo -acetaminop 3-14 tablet by ity of hen 10-325 11:59: [place] 3 [place] mg tablet 28 (three) Medical times Branch daily as needed. MAGNESIUM Yes 1{tbl} Take 1 Univ ers ORAL 3-14 tablet by ity of 11:59: mouth. [address] aspirin 81 Yes 81mg Take 81 mg U nivers mg EC 3-14 by mouth. ity of tablet 11:59: [address] estradioL Yes .5mg Take 0.5 Univ ers 0.5 mg 3-14 mg by ity of tablet 11:59: mouth. [address] esomeprazol Yes 40mg Take 40 mg Univers e 40 mg 3-14 by mouth. ity of capsule 11:59: [place] 28 Medical Branch gabapentin Yes 600mg Take 600 Un donaldo ER 600 mg 3-14 mg by ity of tablet, 11:59: mouth. [place] [address] Medical release 24 Branch hr insulin Yes 85U inject 85 Unive rs degludec 3-14 Units ity of 100 unit/mL 11:59: [place] [facility] Branch semaglutide Yes Take by Uni vers (RYBELSUS) 3-14 mouth. ity of 7 mg Tab 11:59: [address] Branch trazodone Yes Take by Unive rs HCl 3-14 mouth. ity of (TRAZODONE 11:59: [place] ORAL) [address] [place] [address] Branch FAMOTIDINE Yes Take by Univ ers ORAL 3-14 mouth. ity of 11:59: [address] Branch linaclotide Yes Take by Uni vers (LINZESS 3-14 mouth. ity of ORAL) 11:59: [address] Branch AMITRIPTYLI Yes 1 tab Unive rs NE 50 MG 3-14 every AM ity of ORAL TAB 11:59: [address] Branch simvastatin Yes 40mg Take 40 mg Univers (ZOCOR) 40 3-14 by mouth ity o f mg tablet 11:59: at [place] [address] bedtime. Medical Branch levothyroxi Yes 50ug Take 50 Uni vers ne 3-14 mcg by ity of (SYNTHROID) 11:59: mouth [place] 50 mcg 28 every Medical tablet morning. Branch ALBUTEROL Yes 1{puff} Inhale 1 U nivers SULFATE HFA 3-14 Puff as ity o f INHALE 11:59: needed. [address] Branch HYDROcodone Yes 1{tbl} Take 1 Un donaldo -acetaminop 3-14 tablet by ity of hen 10-325 11:59: [place] 3 [place] mg tablet 28 (three) Medical times Branch daily as needed. MAGNESIUM Yes 1{tbl} Take 1 Univ ers ORAL 3-14 tablet by ity of 11:59: mouth. [address] aspirin 81 Yes 81mg Take 81 mg U nivers mg EC 3-14 by mouth. ity of tablet 11:59: [address] estradioL Yes .5mg Take 0.5 Univ ers 0.5 mg 3-14 mg by ity of tablet 11:59: mouth. [address] esomeprazol Yes 40mg Take 40 mg Univers e 40 mg 3-14 by mouth. ity of capsule 11:59: [address] gabapentin Yes 600mg Take 600 Un donaldo ER 600 mg 3-14 mg by ity of tablet, 11:59: mouth. [place] [address] Medical release 24 Branch hr insulin Yes 85U inject 85 Unive rs degludec 3-14 Units ity of 100 unit/mL 11:59: [place] the [place] ([facility] mL) [facility] semaglutide Yes Take by Uni vers (RYBELSUS) 3-14 mouth. ity of 7 mg Tab 11:59: [address] trazodone Yes Take by Unive rs HCl 3-14 mouth. ity of (TRAZODONE 11:59: [place] ORAL) [address] [place] [address] FAMOTIDINE Yes Take by Univ ers ORAL 3-14 mouth. ity of 11:59: [address] linaclotide Yes Take by Uni vers (LINZESS 3-14 mouth. ity of ORAL) 11:59: [address] predniSONE 2020-09 Yes [id number] 60mg Take 3 U nivers 20 mg 2-31 tablets by ity of tablet 00:00: mouth [place] 00 every Medical morning. Branch benzonatate 2020-09 Yes [id number] 100mg Take 1 Univers 100 mg 2-31 capsule by ity of capsule 00:00: mouth 3 [place] [address] (three) Medical times [place] daily as needed for Cough. predniSONE 2020-09 Yes [id number] 60mg Take 3 U nivers 20 mg 2-31 tablets by ity of tablet 00:00: mouth [place] 00 every Medical morning. Branch benzonatate 2020-09 Yes [id number] 100mg Take 1 Univers 100 mg 2-31 capsule by ity of capsule 00:00: mouth 3 [place] 00 (three) Medical times [place] daily as needed for Cough. TRESIBA 2020-09 [...] MORNING FOR 90 DAYS methocarbam 2020-09 Yes [id number] 500mg Take 1 Univers oL 500 mg 2-01 tablet by ity o f tablet 00:00: mouth 4 [place] 00 (four) Medical times Branch daily as needed for Pain (scale 4-6). methocarbam 2020-09 Yes [id number] 500mg Take 1 Univers oL 500 mg 2-01 tablet by ity o f tablet 00:00: mouth 4 [place] 00 (four) Medical times Branch daily as needed for Pain (scale 4-6). RYBELSUS 2020-09 Yes TAKE ONE Un donaldo mg Tab 1-24 TABLET BY ity of 00:00: MOUTH ONCE [place] 00 A DAY AT Medical LEAST 30 Branch MINUTES BEFORE FIRST FOOD, BEVERAGE, OR OTHER MEDICINE OF THE DAY RYBELSUS 14 2020-09 Yes TAKE ONE Un donaldo mg Tab 1-24 TABLET BY ity of 00:00: MOUTH ONCE [place] 00 A DAY AT Medical LEAST 30 Branch MINUTES BEFORE FIRST FOOD, BEVERAGE, OR OTHER MEDICINE OF THE DAY traZODone 2020-09 Yes Univers 100 mg 0-27 ity of tablet 00:00: [place] 00 Medical Branch traZODone 2020-09 Yes Univers 100 mg 0-27 ity of tablet 00:00: [place] 00 Medical Branch bupivacaine 2020- No [id number] 1mL [facility] (Marcaine) 02-27 9102 [facility] 0.5 % 14:41: 14:41 injection 1 46 :00 mL triamcinolo 2020- No [id number] 80mg [facility] ne 02-27 [facility]102 [facility] acetonide 14:41: 14:41 (Kenalog-40 46 :00 ) injection 80 mg triamcinolo 2020- No [id number] 80mg 80 mg, UT ne 02-2702 [facility] acetonide 14:41: 14:41 cular, (Kenalog-40 46 :00 Once PRN ) injection Procedure, 80 mg Starting on Thu02/27/21 at 0941, For 1 dose bupivacaine 2020-0 2020- No [id number] 1mL 1 mL, [facility] (Marcaine) 02-2702 Injection, He alth 0.5 % 14:41: 14:41 Once PRN injection 1 46 :00 Procedure, mL Starting on Thu02/27/21 at 0941, For 1 dose sertraline 2020-0 Yes 50mg QD Take 50 mg U T (Zoloft) 50 6-21 by mouth 1 He alth MG tablet 00:00: (one) time 00 each day. amLODIPine 2020-0 Yes 5mg Take 5 mg Un donaldo 5 mg tablet 6-21 by mouth. ity of 00:00: [address] SERTraline 2020-0 Yes 50mg Take 50 mg U nivers 50 mg 6-21 by mouth. ity of tablet 00:00: [address] amLODIPine 2020-0 Yes 5mg Take 5 mg Un donaldo 5 mg tablet 6-21 by mouth. ity of 00:00: [address] SERTraline 2020-0 Yes 50mg Take 50 mg U nivers 50 mg 6-21 by mouth. ity of tablet 00:00: [address] amLODIPine 1-0 Yes 5mg QD Take 5 mg UT (Norvasc) 5 6-21 by mouth 1 He alth MG tablet 00:00: (one) time 00 each day. amLODIPine 1-0 Yes 5mg QD Take 5 mg UT [...] tablet 00:00: (one) time 00 each day. metformin 2021-0 Yes 500mg Take 500 Uni vers ER 500 mg 6-03 mg by ity of 24 hr 00:00: mouth. [address] metformin 2021-0 Yes 500mg Take 500 Uni vers ER 500 mg 6-03 mg by ity of 24 hr 00:00: mouth. [address] metFORMIN 2021-0 Yes 500mg QD Take [...] (one) time 24 hr each day. tablet losartan-hy 2020-0 Yes [facility] droCHLOROth 6- Health iazide 00:00: (Hyzaar) 00 100-25 MG tablet losartan-hy 2020-0 Yes UT droCHLOROth 6-02 Health iazide 00:00: (Hyzaar) 00 100-25 MG tablet losartan-hy 2020-0 Yes UT droCHLOROth 6-02 Health iazide 00:00: (Hyzaar) 00 100-25 MG tablet losartan-hy 2020-0 Yes UT droCHLOROth 6- Health iazide 00:00: (Hyzaar) 00 100-25 MG tablet losartan-hy 1-0 Yes UT droCHLOROth 6-02 Health iazide 00:00: (Hyzaar) 00 100-25 MG tablet losartan-hy 1-0 Yes UT droCHLOROth 6-02 Health iazide 00:00: (Hyzaar) 00 100-25 MG tablet losartan-hy 1-0 Yes UT droCHLOROth 6-02 Health iazide 00:00: (Hyzaar) 00 100-25 MG tablet losartan-hy 1-0 Yes UT droCHLOROth 6-02 Health iazide 00:00: (Hyzaar) 00 100-25 MG tablet levothyroxi 1-0 Yes 50ug QD Take 50 UT ne 5-26 mcg by Health (Synthroid, 00:00: mouth 1 Levoxyl) 50 00 (one) time MCG tablet each day. levothyroxi 1-0 Yes 50ug QD Take 50 UT ne [...] tablet 00 (two) times a day. Tresiba 2021-0 Yes [facility] FlexTouch 4-21 Health 200 UNIT/ML 00:00: injection 00 gabapentin 2021-0 Yes 1200mg Q.5D Take 1,200 [facility] (Neurontin) 4-21 mg by Health 600 MG 00:00: mouth 2 tablet 00 (two) times a day. Tresiba 2021-0 Yes [facility] FlexTouch 4-21 Health 200 UNIT/ML 00:00: injection 00 gabapentin 2021-0 Yes 1200mg Q.5D Take 1,200 UT (Neurontin) 4-21 mg by Health 600 MG 00:00: mouth 2 tablet 00 (two) times a day. Tresiba 2021-0 Yes [facility] FlexTouch 4-21 Health 200 UNIT/ML 00:00: injection 00 gabapentin 2021-0 Yes 1200mg Q.5D Take 1,200 UT (Neurontin) 4-21 mg by Health 600 MG 00:00: mouth 2 tablet 00 (two) times a day. Tresiba 2021-0 Yes [facility] FlexTouch 4-21 Health 200 UNIT/ML 00:00: injection 00 gabapentin 2021-0 Yes 1200mg Q.5D Take 1,200 [facility] (Neurontin) 4-21 mg by Health 600 MG 00:00: mouth 2 tablet 00 (two) times a day. Tresiba 2021-0 Yes [facility] FlexTouch 4-21 Health 200 UNIT/ML 00:00: injection 00 gabapentin 2021-0 Yes 1200mg Q.5D Take 1,200 [facility] (Neurontin) 4-21 mg by Health 600 MG 00:00: mouth 2 tablet 00 (two) times a day. Tresiba 2021-0 Yes [facility] FlexTouch 4-21 [facility] 200 UNIT/ML 00:00: injection 00 gabapentin 2021-0 Yes 1200mg Q.5D Take 1,200 [facility] (Neurontin) 4-21 mg by Health 600 MG 00:00: mouth 2 tablet 00 (two) times a day. plecanatide 2021-0 Yes 3mg Take 3 mg U nivers (TRULANCE) 3-23 by mouth. ity of 3 mg Tab 00:00: [address] plecanatide 2021-0 Yes 3mg Take 3 mg U nivers (TRULANCE) 3-23 by mouth. ity of 3 mg Tab 00:00: [address] Trulance 3 2020-0 Yes 3mg Take 3 [...] Heal 00:00: (two) 00 times a week. Aspirin 81 2019-0 Yes 81 mg = 1 Me moria MG Chewable 3-16 tab, PO, l Tablet 17:44: Daily, # 90 tab, 0 Refill(s), Pharmacy: [id number] Esomeprazol 2019-0 No 40 mg, 1 Me moria e 3-16 cap, l 14:00: Route: PO, Drug form: ECCAP, Daily, Dosing Weight 79.091, kg, Start date: 11/21/19 9:00:00 CDT, Duration: 30 day, Stop date: 12/20/19 9:00:00 CDT Estradiol 2019-0 No Notes: Memori a 3-16 Hazardous l 14:00: Drug Group 2:Non-anti neoplastic Hazardous Drug -- Refer to safe handling procedure PPE Matrix Fluticasone 2020-0 No Notes: Brennen oscar propionate 3-16 (Same as: l 0.05 14:00: Flonase) Ferdinand MG/ACTUAT 00 Metered Dose Nasal [place] [Flonase] Hydrochloro No 1 tab, Brennen oscar thiazide 25 3-16 Route: PO, l MG / 14:00: Drug Form: Ferdinand Losartan 00 TAB, Potassium Dosing 100 MG [...] Memoria 3-16 Same as l 14:00: Januvia Ferdinand 00 Insulin No Notes: Memoria Glargine 3-16 [...] Memoria 3-16 (Same as: l 02:00: Humalog) Ferdinand Roll in palms of hands gently; Do not shake vigorously . WASTE: F/P - Black; E - Municipal Trash Bin Stable for 28 days at room temperatur e. Expires in days from ____Date montelukast No Notes: Brennen oscar 3-16 (Same l 02:00: as:Singula Solomon 00 ir) Simvastatin No Notes: Brennen oscar 3-16 (Same as: l 02:00: Zocor) Solomon 00 Insulin, No 10 unit, Memor ia Aspart, 16 Route: l Human 01:39: SUB-Q, Ferdinand 00 ONCE, Dosing Weight 79.091, kg, Priority: NOW, Start date: 11/20/19 20:39:00 CDT, Stop date: 11/20/19 20:39:00 CDT Buspirone No Notes: Memori a 3-15 (Same As: l 22:00: BuSpar) Solomon Amitiza No Notes: Memoria 3-15 Same as l 22:00: Amitiza Ferdinand 00 (Do Not Crush) Non Formulary Acetaminoph No Notes: Do M emoria en 325 MG / 3-15 not exceed l Hydrocodone 18:53: 4gm/day of Solomon Bitartrate 00 acetaminop 10 MG Oral hen. (Same Tablet as: [place] [[place]n 325/10) 10/325] Albuterol No Notes: Memori a 0.833 MG/ML 3-15 (Same as: l / 18:49: Duoneb) Ipratropium 00 [place] 0.167 MG/ML Inhalant Solution Tylenol No Notes: Do Memor ia 3-15 not exceed l 18:20: 4 gm/day. Solomon 00 (Same as: Tylenol) Labetalol No Notes: Memori a 3-15 (Same as: l 17:11: Normodyne, Solomon Trandate) Push over 2 minutes Give bolus over 2-3 minutes. heparin No 5,000 Memoria 3-15 unit, l 14:23: Route: Ferdinand SUB-Q, Q8H-06, Dosing Weight 79.091, kg, Priority: [...] Stop date: 12/20/19 3:51:00 CDT, 0 Humalog No Notes: Memoria 3-15 (Same as: [...] Notes: Memoria 3-14 Chlorasept l 02:54: ic [place] (Same as: Chlorasept ic, Sore Throat [place]) WASTE: F/P - Black; E - Municipal Trash Bin Famotidine 2019-0 No Notes: Memor ia 3-14 (Same as: l 02:00: Pepcid) Can be dilute in 5-10cc NS IVP: Slow IV push over at least 2 minutes. Saline 2019-0 No Notes: Memoria Flush 0.9% 3-14 (Same as: l 02:00: BD Ferdinand 00 Posiflush) gabapentin No Notes: Memor ia 3-14 [...] CDT, PRN Blood Glucose Results, 0 Humalog 2019- No Notes: Memoria 3-14 (Same as: l [...] 1000 mg Product Wasted: ___ mg Zofran No Notes: Memoria 3-13 (Same as: l 19:19: Zofran) Solomon 00 MEDICATION WASTE Product Size: 4 mg Product Wasted: ___ mg Albuterol No Notes: Memori a 0.833 MG/ML 3-13 (Same as: l / 17:26: Duoneb) Ipratropium 00 [place] 0.167 MG/ML Inhalant Solution Saline No Notes: Memoria Flush 0.9% 3-13 (Same as: l 17:26: BD Solomon 00 Posiflush) Potassium No Notes: Memori a [...] in a separate lumen from TPN. potassium No Notes: Memori a phosphate 3-13 (Same [...] reconstitut w/2.5oz ion water and stir. Magnesium No Notes: Memori a Sulfate 3-13 WASTE: F/P l 17:26: - Sink; E - Municipal Trash Bin Magnesium 2020-0 No Notes: Memori a Oxide 3-13 (Same as: l 17:26: Mag-Ox Ferdinand 00 400) Magnesium oxide 330ye=726i g elemental magnesium Dose=____m g magnesium oxide (___mg elemental magnesium) Calcium 2019- No Notes: Memoria Gluconate 3-13 WASTE: F/P l 17:26: - Sink; E Solomon 00 [facility] Trash Bin Calcium 2019- No Notes: Memoria Carbonate 3-13 (Same As: l 500 MG 17:26: Tums) Solomon Chewable 00 Calcium Tablet Carbonate 500 mg = 200 mg elemental calcium Dose = mg calcium carbonate ( mg elemental calcium) Acetaminoph No Notes: Do M emoria en 3- not exceed l 17:00: 4 gm/day. (Same as: Tylenol) Tramadol No Notes: Not Mem oria 3- to exceed l 16:39: 400mg/day. Ferdinand (Same As: Ultram) gabapentin No Notes: Memor ia 3-13 (Same as: l 16:39: Neurontin) Oxycodone No Notes: Memori a Hydrochlori -13 (Same as: l de 5 MG 16:39: Roxicodone Herm mary Oral Tablet ) niCARdipine No Route: IV, Memoria (ANES) 3- Drug form: l 16:24: INJ, ONCE, Stop date: 11/18/19 11:24:00 CDT Diltiazem No 10 mg, Memori a 3-13 Route: IV, l 16:24: ONCE, Dosing Weight 79.091, kg, Start date: 11/18/19 11:24:00 CDT, Stop date: 11/18/19 11:24:00 CDT Hydromorpho 2019- No 0.5 mg, Mem oria ne 13 Route: l 16:24: IVP, ONCE, Dosing Weight 79.091, kg, Priority: STAT, Start date: 11/18/19 11:24:00 CDT, Stop date: 11/18/19 11:24:00 CDT Nicardipine 2019-0 No Notes: Brennen oscar 3-13 Same as: l 16:20: Cardene Concentrat ion: (0.2 mg /1 ml ) ondansetron 0 No Route: IV, Memoria (ANES) 3-13 Drug [...] CDT, Stop date: 11/18/19 11:17:00 CDT heparin 2019- No Route: IV, Brennen oscar (ANES) 3-13 [...] 2020-0 No Route: IV, Memor ia chloride -13 Drug form: l (ANES) 19 13:27: INJ, Start He rmann mL + 00 date: remifentani 11/18/19 l (ANES) 1 8:27:00 mg CDT, Stop date: 11/18/19 9:27:00 CDT Isolyte S 2020-0 No Route: IV, Me moria PH 7.4 3-13 Total l (ANES) [...] Rate: To l 0.9% 20:03: prime line Ferdinand (titrate) 00 and flush 250 mL remaining blood products., Dosing Weight 81.023, kg, Route: IV, Total Volume: 250, Start Date: 11/14/19 15:03:00 CDT, Duration: 1 day, Stop date: 11/15/19 15:02:00 CDT, Replace Every: 24 hr, 0 Hydrochloro 2020-0 Yes 1 tab, PO, Memoria thiazide 25 3-09 Daily, # l MG / 18:03: 30 tab, 0 Ferdinand Losartan 00 Refill(s) Potassium 100 MG Oral Tablet Albuterol 2020-0 Yes 3 mL, Memoria 0.833 MG/ML 11-13 INHALATION l / 18:03: , Q6H, PRN Ferdinand Ipratropium 00 Wheezing, [place] # 30 ea, 1 0.167 MG/ML Refill(s) Inhalant Solution Fluticasone 2020-0 Yes NASAL, Brennen oscar propionate 3-09 Daily, 0 l 0.05 18:03: Refill(s) Solomon MG/ACTUAT 00 Metered Dose Nasal [place] [Flonase] meloxicam 2020-0 Yes 15 mg = 1 Mem oria 15 mg oral 3-09 tab, PO, l tablet 18:03: Daily, # Ferdinand 00 30 tab, 0 Refill(s) busPIRone 2020-0 [...] microgram l Oral 18:03: = 1 cap, Ferdinand Capsule 00 PO, BID, 0 [Amitiza] Refill(s) [...] 18:03: Daily, 0 Solomon [Trulance] 00 Refill(s) montelukast 2017-09 Yes 10mg QD Take 10 mg [facility] (SINGULAIR) -[address] 10 mg 21:45: daily. Hospita tablet 51 l esomeprazol 2017-09 Yes 40mg QD Take 40 mg [facility] e (NexIUM) -[address] 40 MG 21:45: daily. [facility]ospita capsule 51 l pantoprazol 2017-09 Yes 40mg QD Take 40 mg [facility] -[address] (PROTONIX) 21:45: daily. Hospi ta 40 MG EC 51 l tablet amitriptyli 2017-09 Yes 25mg QD Take 25 mg [facility] ne (ELAVIL) -[address] 25 MG 21:45: every Hospita tablet 51 morning. l losartan-hy 2017-09 Yes 1{tbl} QD Take 1 Me thodi drochloroth 1-[address] iazide 21:45: mouth Hospita (HYZAAR) 51 every l 100-25 mg morning. per tablet simvastatin 2017-09 Yes 10mg QD Take 10 mg [facility] (ZOCOR) 10 -[address] MG tablet 21:45: nightly. [...] QD Take 81 mg Meth bharati (ECOTRIN) -[address] 81 MG 21:45: daily. Hospita enteric 51 l coated tablet MAGNESIUM 2017-09 Yes 1{tbl} QD Take 1 Meth bharati ORAL 1-[address] 21:45: mouth Hospita 51 daily. l Pure Magnesium albuterol 2017-09 Yes 1{puff} Q.[id number] Inhale 1 [facility] (PROAIR -[id number] HFA,PROVENT 21:45: 3D (three) [...] (CYMBALTA) 1-[address] 20 MG 21:45: daily. Hospita capsule 51 l HYDROcodone 2017-09 Yes 1{tbl} Q.67489626 Take 1 [facility] -acetaminop 1-[id number] hen (NORCO) 21:45: 3D mouth 3 Hos leonardo 7.5-325 mg 51 (three) l per tablet times a day. methocarbam 2017-09 Yes 750mg Q.55304241 Take 750 [facility] ol 1-[id number] (ROBAXIN) 21:45: 3D mouth 3 Hospi ta 500 MG 51 (three) l tablet times a day. Takes 500 mg 1.5 TAB. (750 mg) gabapentin 2017-09 Yes 600mg QD Take 600 Me thodi (GRALISE) 1-[address] 600 mg 21:45: mouth Hospita tablet 51 daily. l extended release 24 hr HYDROcodone 2017-09 Yes 1{tbl} Q.73981666 Take 1 [facility] -acetaminop -[id number] hen (NORCO) 15:45: 3D mouth 3 Hos leonardo 7.5-325 mg 51 (three) l per tablet times a day. methocarbam 2017-09 Yes 750mg Q.[id number] Take 750 [facility] ol -[id number] (ROBAXIN) 15:45: 3D mouth [...] QD Take 40 mg Method[facility] e (NexIUM) -[address] 40 MG 15:45: daily. [...] l Pure Magnesium albuterol 2017-09 Yes 1{puff} Q.84627436 Inhale 1 [facility] (PROAIR -[id number] HFA,PROVENT 15:45: 3D (three) [...] capsule 51 l HYDROcodone 2017-09 Yes 1{tbl} Q.31216827 Take 1 [facility] -acetaminop -[id number] hen (NORCO) 15:45: 3D mouth 3 Hos leonardo 7.5-325 mg 51 (three) l per tablet times a day. methocarbam 2017-09 Yes 750mg Q.10463458 Take 750 Method[facility] ol -[id number] (ROBAXIN) 15:45: 3D mouth [...] QD Take 40 mg [facility] e (NexIUM) -[address] 40 MG 15:45: daily. [...] l Pure Magnesium albuterol 2017-09 Yes 1{puff} Q.31668221 Inhale 1 [facility] (PROAIR -[id number] HFA,PROVENT 15:45: 3D (three) [...] capsule 51 l HYDROcodone 2017-09 Yes 1{tbl} Q.[id number] Take 1 [facility] -acetaminop 1-[id number] hen (NORCO) 15:45: 3D mouth 3 Hos leonardo 7.5-325 mg 51 (three) l per tablet times a day. methocarbam 2017-09 Yes 750mg Q.[id number] Take 750 Methodi ol 1-[id number] (ROBAXIN) 15:45: 3D mouth [...] st (TRESIBA 15:45: under the [facility] FLEXTOUCH 51 skin every l U-100) 100 [...] l Pure Magnesium albuterol 2017-09 Yes 1{puff} Q.[id number] Inhale 1 [facility] (PROAIR -[id number] HFA,PROVENT 15:45: 3D (three) [...] by ity of tablet 00:00: mouth 3 [place] 00 (three) Medical times Branch daily. BusPIRone BusPIRone Yes Tawana 1 tablet Common HCl HCl Mill[facility] - [facility] Immunizations Ordered Immunization Filled Immunization Date Status Commen ts Source Name Name SARS-COV-2 COVID-19 2021-06-21 Completed Unive rsity of PFIZER VACCINE 00:00:00 [facility] SARS-COV-2 COVID-19 2021-06-21 Completed Unive rsity of PFIZER VACCINE 00:00:00 [facility] SARS-COV-2 COVID-19 2021-05-31 Completed Unive rsity of PFIZER VACCINE 00:00:00 [facility] SARS-COV-2 COVID-19 2021-05-31 Completed Unive rsity of PFIZER VACCINE 00:00:00 [facility] Sandy Sars-cov-2 2020-11-15 [facility] [...] [facility]it y of Vaccine Recomb Quad 00:00:00 [facility] IM, Preserv and ABX Branc h Free 18-64 YRS Influenza Virus 2020-06-25 Completed Universit y of Vaccine Recomb Quad 00:00:00 [facility], Preserv and ABX Branc h Free 18-64 [...] [facility] quadrivalent, 00:00:00 injectable, preservative free Influenza High Dose 2020-05-10 Completed Unive rsity of Quad 00:00:[address] [facility] Influenza High Dose 2020-05-10 Completed Unive rsity of 00:00:[address] [facility] Influenza High Dose 2020-05-10 Completed Unive rsity of Quad 00:00:[address] [facility] Influenza High Dose 2020-05-10 Completed Unive rsity of 00:00:[address] [facility] Influenza, High Dose 2020-05-10 Completed [...] 2020-05-10 [facility] Seasonal [facility]:00 Zoster Vaccine 2019-08-20 Completed University of Recombinant 00:00:[address] [facility] Zoster Vaccine 2019-08-20 Completed University of Recombinant 00:00:[address] [facility] Zoster, Recombinant 2019-08-20 Completed [facility] [...] 00:00:00 MMR 2019-04-30 Completed University of 00:00:[address] [facility] MMR 2019-04-30 Completed University of 00:00:[address] [facility] MMR 2019-04-30 [facility] 00:[facility]:00 MMR 2019-04-30 [facility] 00:[facility]:00 MMR 2019-04-30 [facility] 00:00:00 MMR 2019-04-30 [facility] 00[facility]00:00 MMR 2019-04-30 [facility]pleted [facility] 00:00:00 MMR 2019-04-30 [facility] 00:00:00 Zoster, Recombinant 2019 [facility]00 Zoster, Recombinant 2019 [facility]00 Zoster Vaccine 2019 Completed University of Recombinant 00:00:[address] [facility] Zoster Vaccine 2019 Completed University of Recombinant 00:00:[address] [facility] Zoster, Recombinant 2019 Completed [facility] [...] 2009-08-27 Completed Universit y of Vaccine 00:00:[address] [facility] Influenza Virus 2009-08-27 Completed Universit y of Vaccine 00:00:[address] [facility] Influenza, 2009-08-27 [facility] Unspecified 00:00:00 Influenza, 2009-08-27 [facility]pleted [facility] Unspecified 00:00:00 Influenza, 2009-08-27 Completed [facility] Unspecified 00:00:00 Influenza, 2009-08-27 Completed [facility] Unspecified 00:00:00 Influenza, 2009-08-27 [facility]pleted [facility] Unspecified 00:00:00 Influenza, 2009-08-27 [facility] Unspecified 00:00:00 Vital Signs Vital Name Observation Time Observation Value Comments Source Systolic blood 2022-05-06 15:23:00 156 mm[Hg] Univer sity [facility] Diastolic blood 2022-05-06 15:23:00 72 mm[Hg] Unive [facility] Heart rate 2022-05-06 15:23:00 72 /min [facility] Body temperature 2022-05-06 15:23:00 35.72 [facility] height 2022-05-06 15:23:00 162.6 cm [facility] Body weight 2022-05-06 15:23:00 89.359 kg [facility] BMI 2022-05-06 15:23:00 33.81 kg/m2 [facility] Systolic blood 2021-09-11 20:47:00 139 mm[Hg] [...] 2021-02-27 13:49:00 33.81 [facility]m2 [facility] Rate 2019-11-21 15:32:00 [facility] Respitory Rate 2019-11-21 15:32:00 Memori al Solomon Systolic (mm Hg) 2019-11-21 15:32:00 Brennen rial Solomon Diastolic (mm Hg) 2019-11-21 15:32:00 Mem orial Ferdinand Heart Rate 2019-11-21 12:57:00 [facility] Ferdinand Respitory Rate 2019-11-21 12:57:00 Memori al Solomon Systolic (mm Hg) 2019-11-21 12:57:00 Brennen rial Solomon Diastolic (mm Hg) 2019-11-21 12:57:00 Mem orial Ferdinand Heart Rate 2019-11-21 08:37:00 [facility] Ferdinand Respitory Rate 2019-11-21 08:37:00 Memori al Solomon Systolic (mm Hg) 2019-11-21 08:37:00 Brennen rial Solomon Diastolic (mm Hg) 2019-11-21 08:37:00 Mem orial Ferdinand Temperature Oral (F) 2019-11-18 12:00:00 98.3 F [facility] Weight 2019-11-18 11:45:00 [facility] BMI Calculated 2019-11-18 11:45:00 Memori al Ferdinand Height 2019-11-14 19:59:00 162.56 cm [facility] Ferdinand Systolic (mm Hg) 2019-11-14 17:59:00 Brennen rial Ferdinand Diastolic (mm Hg) 2019-11-14 17:59:00 Mem orial Ferdinand Heart Rate 2019-11-14 17:59:00 [facility] Ferdinand Height 2019-11-14 17:59:00 162.56 cm [facility] Solomon Weight 2019-11-14 17:59:00 [facility] Solomon BMI Calculated 2019-11-14 17:59:00 Memori al Ferdinand Procedures Procedure Date / Time Performing Clinician Source Performed XR LUMBAR SPINE 2 VW 2022-05-06 15:32:47 Armond Montoya [facility] MRI LUMBAR SPINE WO 2021-03-19 13:02:57 [facility] CONTRAST MO ARTHROCENTESIS 2021-02-27 14:41:46 [facility] ASPIR&/INJ MAJOR JT/BURSA W/O US XR LUMBAR SPINE AP 2020-11-13 14:56:[address] [facility] LATERAL FLEXION AND EXTENSION [facility] Solomon replacement<sup>1</sup> Gallbladder operation [facility] ermann Rotator cuff repair [facility] Lumbar laminectomy and [facility] excision of intradural spinal lesion Hysterectomy [facility] Appendectomy [facility] Cataract extraction [facility] Plan of Care Planned Activity Planned Date Details Comments Source Future Scheduled 2022-05-06 HEPATITIS B VACCINES Met [facility] Test 10:13:08 (1 of 3 - 3-dose series) [code = HEPATITIS B VACCINES (1 of 3 - 3-dose series)] Future Scheduled 2022-05-06 COVID-19 VACCINE (#1) [facility] Test 10:13:08 [code = COVID-19 VACCINE (#1)] Future Scheduled 2022-05-06 Hepatitis C screening [facility] Test 10:13:08 (procedure) [code = 379247942] Future Scheduled 2022-05-06 Screening for [facility] Test 10:13:08 malignant neoplasm of cervix (procedure) [code = 523969758] Future Scheduled 2022-05-06 BREAST CANCER [facility] Test 10:13:08 SCREENING [code = BREAST CANCER SCREENING] Future Scheduled 2022-05-06 COLONOSCOPY SCREENING [facility] Test 10:13:08 [code = COLONOSCOPY SCREENING] Future Scheduled 2022-05-06 INFLUENZA VACCINE [facility] Test 10:13:08 [code = INFLUENZA VACCINE] Future Scheduled 2021-09-19 COVID-19 VACCINE (1) [facility] Test 04:08:39 [code = COVID-19 VACCINE (1)] Future Scheduled 2021-09-19 Hepatitis C screening [facility] Test 04:08:39 (procedure) [code = 460117034] Future Scheduled 2021-09-19 Screening for [facility] Test 04:08:39 malignant neoplasm of cervix (procedure) [code = 739627580] Future Scheduled 2021-09-19 BREAST CANCER [facility] Test 04:08:39 SCREENING [code = BREAST CANCER SCREENING] Future Scheduled 2021-09-19 COLONOSCOPY SCREENING [facility] Test 04:08:39 [code = COLONOSCOPY SCREENING] Future Scheduled 2021-09-19 INFLUENZA VACCINE [facility] Test 04:08:39 [code = INFLUENZA VACCINE] Future Scheduled 2021-09-19 COVID-19 VACCINE (1) [facility] Test 04:08:39 [code = COVID-19 VACCINE (1)] Future Scheduled 2021-09-19 Hepatitis C screening [facility] Test 04:08:39 (procedure) [code = 532627609] Future Scheduled 2021-09-19 Screening for [facility] Test 04:08:39 malignant neoplasm of cervix (procedure) [code = 273893127] Future Scheduled 2021-09-19 BREAST CANCER [facility] Test 04:08:39 SCREENING [code = BREAST CANCER SCREENING] Future Scheduled 2021-09-19 COLONOSCOPY SCREENING [facility] Test 04:08:39 [code = COLONOSCOPY SCREENING] Future Scheduled 2021-09-19 INFLUENZA VACCINE [facility] Test 04:08:39 [code = INFLUENZA VACCINE] Future Scheduled DIABETES: RETINAL EYE [facility] Test EXAM [code = DIABETES: RETINAL EYE EXAM] Future Scheduled DIABETIC FOOT EX[facility] [code = DIABETIC FOOT EXAM] Future Scheduled [facility] [code = URINE MICROALBUMIN] Future Scheduled COVID-19 VACCINE (1) [facility] Test [code = COVID-19 VACCINE (1)] Future Scheduled Hepatitis C screening [facility] Test (procedure) [code = 878778110] Future Scheduled Screening for [facility] Test malignant neoplasm of cervix (procedure) [code = 713426810] Future Scheduled BREAST CANCER [facility] Test SCREENING [code = BREAST CANCER SCREENING] Future Scheduled COLONOSCOPY SCREENING [facility] Test [code = COLONOSCOPY SCREENING] Future Scheduled INFLUENZA VACCINE [facility] Test [code = INFLUENZA VACCINE] Encounters Start End Encounter Admission Attending Care Care Encounter Source Date/Time Date/Time Type Type Clinicians Facility Department ID 2022-03-11 Outpatient De Anda, [facility] [id number] Common 07:59:00 Balje[facility] 2022-03-07 Outpatient De And[facility], [facility] [id number] Common 09:35:01 Balje[facility] 2022-02-20 Outpatient De Anda, [facility] [id number] Common 15:57:00 Baljeet [facility] 2022-02-07 Outpatient GIANNA [facility] 7501 13:35:33 [facility] 2021-10-02 Outpatient De Anda, [facility] [id number] Common 14:26:56 Baljeet 34839 [facility] 2021-10-02 Outpatient De Anda, [facility] [id number] Common 14:26:22 Baljeet 39062 [facility] 2021-10-02 Outpatient De Anda, [facility] [id number] Common 14:17:54 Baljeet 75846 [facility] 2021-10-02 Outpatient Guerrero, [facility] Common 14:09:58 Vira [id number] [facility] 2021-10-02 Outpatient Ashley, [facility] Common 11:05:50 Tawana 25239 [facility] 2021-10-02 Outpatient Ashley [facility] Common 11:03:36 Tawana 01794 [facility] 2021-04-11 Outpatient [facility] [id number] MS 09:44:24 E, JOSH [facility] 2021-02-25 Outpatient [facility] [id number] MS 10:35:57 [facility] 2022-05-06 2022-05-06 [facility] [id number] Univers 10:25:00 23:59:00 Encounter Armond SPECIALTY [id number] [facility] [id number] [facility] AT [id number] [place] natalee DUKES 809 [facility] 2022-05-06 2022-05-06 [id number] Univers 10:00:00 15:17:[address] [facility] 2022-05-06 2022-05-06 [facility] [id number] Univers 10:00:00 10:20:00 Visit Ale SPECIALTY [id number] [facility] [id number] [facility] AT [id number] [place] natalee DUKES 198 [facility] 2021-09-11 2021-09-11 Office Alonso [facility] [id number] MS 15:00:00 15:21:08 Visit Shinil SUGAR [id number] [facility] 9.2.7.2.686 PLA[address] 8 [id number] AND 4 WOMENS 2021-06-25 2021-07-25 OP Therapy nullFlavo [facility] [id number] Memoria 16:00:00 05:59:00 Patients r Luna 00 l [facility] mary Colon 2021-06-25 2021-07-24 Outpatient Zoltan [id number]. [id number]. [id number]. [id number] 11:00:00 23:59:00 Josh pham [id number]. [id number] 2021-06-12 2021-06-12 EXT [facility] OP Zoltan EXT [facility] 1.2.840.1 [id number] [place] 00:00:00 00:00:00 Josh pham [id number] Health [id number] [id number] 2021-06-12 2021-06-12 EXT MHH OP Zoltan EXT MSRDP 1.2.840.1 14 [id number] [place] 00:00:00 00:00:00 Josh pham [id number] Health 9.2.7.2.686 [id number] 2021-06-05 2021-06-05 Office Zoltan [facility] [id number] MS 08:01:02 09:18:56 Visit Josh pham [id number] Health MEDICAL [id number] PLA[address] 8 [id number] 2021-03-26 2021-03-26 Orders SherronLORENE [facility] [id number] MS 00:00:00 00:00:00 Only Armond HAYWARDKENIA [id number] [facility] MEDICAL [id number] PLA[address] 4 [id number] 7 2021-03-26 2021-03-26 Orders GertrudeitzLORENE [facility] [id number] 2001 00:00:00 00:00:00 Only Armond CARRASCO [id number] MEDICAL [id number] PLA[address] 4 [id number] 2021-03-19 2021-03-20 Outpt Diag nullFlavo [facility] [id number] Memoria 12:30:00 04:59:00 Services r Outpatient 00 l Kaushik Carrasco 2021-03-19 2021-03-19 Outpatient Zoltan MHOIP MHOIP 210 [id number] 07:30:00 23:59:00 Josh pham 00 2021-03-18 2021-03-18 EXT MHH OP Zoltan EXT MSRDP 1.2.840.1 [id number] UT 00:00:00 00:00:00 Josh pham 350.1.13.58 Health 9.2.7.2.686 [id number] 2021-02-27 2021-02-27 Office Zoltan [facility] 1.2.840.114 12 [id number] MS 08:29:48 10:00:26 Visit e, Josh CARRASCO 350.1.13.58 Health MEDICAL 9.2.7.2.686 PLAZA 4 [id number] 2021-02-27 2021-02-27 Office Zoltan [facility] 1.2.840.114 12 [id number] 08:29:48 10:00:26 Visit e, Josh CARRASCO 350.1.13.58 MEDICAL 9.2.7.2.686 PLAZA 9 [id number] 2020-11-13 2020-11-13 [facility] Royce Rivers 1.2.840.1 [id number] Methodi 08:27:59 23:59:00 Encounter Jungsik 33991.1.[address] 3.430.2.7 Hospit a .3.889743 l .8 2020-11-13 2020-11-13 Travel 1.2.840.1 1.2.643.158 [id number] Methodi 00:00:00 00:00:[address] 3.430.2.7 0.2.7.3.698 Ho spita .3.974519 084.8 l .8 2020-11-13 2020-11-13 Transcribe Royce Rivers 1.2.840.1 [id number] Methodi 00:00:00 00:00:00 Orders Jungsik 34375.1.[address] 3.430.2.7 Hospit a .3.285497 l .8 2020-11-09 2020-11-09 Orders Doctor ROYCE 1.2.840.114 [id number] 00:00:00 00:00:00 Only Unassigned, AVA 350.1.13.10 [facility]owin[facility]el [facility] 4.2.7.2.686 [id number] 2020-10-05 2020-10-05 Telephone [facility] 1.2.500.977 [id number] 00:00:00 00:00:00 [facility] 350.1.13.10 Surgical 4.2.7.2.686 Specialti [id number] es 198 [place] 2020-09-27 2020-09-27 [facility] 1.2.840.114 [id number] 08:21:38 23:59:00 Encounter Darrius Pagan [facility] 350.1.13.10 Surgical 4.2.7.2.686 Specialti [id number] es 809 [place] 2020-09-27 2020-09-27 Office [facility] 1.2.531.956 [id number] 07:50:24 08:32:23 Visit Darrius Pagan [facility] 350.1.13.10 Surgical 4.2.7.2.686 Specialti [id number] es 198 [place] 2020-09-24 2020-09-24 Orders Doctor CRANE 1.2.840.114 [id number] 00:00:00 00:00:00 Only Unassigned, [facility]13.[facility] 4.2.7[facility]2.686 [id number] 009 2020-07-23 2020-07-23 Ambulatory nullFlavo [facility] [id number] Memoria 20:00:00 20:00:00 Pre-Reg r Cardiology 05 l Reema Forbes n 2020-07-23 2020-07-23 Outpatient Maniar, [place] [id number] 14:00:00 14:00:00 Gilmer [place] 2020-05-16 2020-05-16 Outpatient ELEUTERIOIE ROSA [id number] Memoria 13:30:00 13:30:00 05 l Ferdinand 2019-12-29 2019-12-29 Out[facility] 30 [id number] Common 09:49:00 09:49:00 t [facility] it [facility] 2019-12-27 2019-12-27 Out[facility] 30 [id number] Common 09:02:00 09:02:00 t [facility] it Road [facility] 2019-12-23 2019-12-25 Outside nullFlavo COA [id number] Memoria 20:41:52 04:59:59 Medical r Neurology 02 l Records Parker Ferdinand 2019-12-23 2019-12-24 [facility] 105 [id number] 15:41:52 23:59:59 02 2019-12-14 2019-12-14 Out[facility] 30 [id number] Common 14:36:00 14:36:00 [facility] it Road [facility] 2019-11-18 2019-11-21 Inpatient nullFlavo [facility] [id number] Memoria 11:22:00 18:46:00 r Ferdinand 00 l [facility] 2019-11-18 2019-11-21 Inpatient CHIKA, [address] 06:22:00 13:46:00 [place] 2019-11-18 2019-11-21 Outpatient Chika, [facility] [id number] 06:22:00 13:46:00 Sadia 00 2019-11-14 2019-11-15 Outpatient nullFlavo [facility] [id number] Memoria 18:00:00 04:59:59 r Cardiology 03 l [facility] 2019-11-14 2019-11-15 Outpatient nullFlavo [facility] [id number] Memoria 16:00:00 04:59:59 r Cardiology 04 l [facility] 2019-11-14 2019-11-14 Outpatient Maniar, MG [facility] [id number] 13:00:00 23:59:59 Gilmer H 03 2019-11-14 2019-11-14 Outpatient Maniar, [facility] [id number] 11:00:00 23:59:59 Gilmer H 04 2019-11-14 2019-11-14 Outpatient MHIE IE [id number] Memoria 13:00:00 13:00:00 03 elle Carbajal 2019-11-14 2019-11-14 Outpatient MHIE MHIE [id number] Memoria 11:00:00 11:00:00 04 elle ShawSolomon 2019-11-08 2019-11-08 [facility] 29 [id number] Common 09:58:00 09:58:[address] [facility] 2019-11-08 2019-11-08 Out[facility] 29 [id number] Common 09:56:00 09:56:[address] [facility] 2019-10-24 2019-10-24 Out[facility] 29 [id number] Common 21:19:00 21:19:[address] [facility] 2019-10-24 2019-10-24 Out[facility] 29 [id number] Common 21:06:00 21:06:[address] [facility] 2019-10-24 2019-10-24 Out[facility] 29 [id number] Common 09:30:00 09:30:[address] [facility] 2019-09-13 2019-09-13 Out[facility] 28 [id number] Common 13:20:00 13:20:[address] [facility] 2019-08-26 2019-08-26 Out[facility] 28 [id number] Common 08:45:00 08:45:[address] [facility] 2019-08-22 2019-08-22 Out[facility] [id number] Common 01:08:00 01:08:[address] [facility] 2019-08-17 2019-08-17 [facility] 28 [id number] Common 09:51:00 09:51:[address] [facility] 2019-08-16 2019-08-16 Out[facility] 28 [id number] Common 13:20:00 13:20:[address] [facility] 2019-07-21 2019-07-21 Out[facility] 28 [id number] Common 14:47:00 14:47:[address] [facility] 2019-07-15 2019-07-15 Out[facility] 28 [id number] Common 10:09:00 10:09:[address] [facility] 2019-07-15 2019-07-15 Out[facility] [id number] Common 08:40:00 08:40:[address] [facility] 2019-07-11 2019-07-11 Out[facility] [id number] Common 13:46:00 13:46:[address] [facility] 2019-06-28 2019-06-28 Out[facility] 27 [id number] Common 02:54:00 02:54:[address] [facility] 2019-06-24 2019-06-24 Out[facility] 27 [id number] Common 09:00:00 09:00:[address] [facility] 2019-06-23 2019-06-23 Out[facility] [id number] Common 15:00:00 15:00:[address] [facility] 2019-05-30 2019-05-30 Out[facility] [id number] Common 15:13:00 15:13:[address] [facility] 2019-05-05 2019-05-05 Out[facility] 27 [id number] Common 15:33:00 15:33:[address] [facility] 2019-04-28 2019-04-28 Outpatient [facility] 27 [id number] Common 09:02:00 09:02:[address] [facility] 2019-04-26 2019-04-26 Out[facility] 27 [id number] Common 13:43:00 13:43:[address] [facility] 2019-04-25 2019-04-25 Out[facility] 27 [id number] Common 22:56:00 22:56:[address] [facility] 2019-04-24 2019-04-24 Out[facility] 27 [id number] Common 11:41:00 11:41:[address] [facility] 2019-04-15 2019-04-15 Outpatient [facility] 26 [id number] Common 09:07:00 09:07:[address] [facility] 2019-04-15 2019-04-15 Out[facility] 26 [id number] Common 08:00:00 08:00:[address] [facility] 2019-03-24 2019-03-24 Outpatient zzzAmy zzzLuisana [id number] Common 09:27:00 09:27:00 Donte Kent Sp yaron DO [facility] 2019-03-16 2019-03-16 Out[facility] [id number] Common 09:16:00 09:16:[address] [facility] 2019-02-22 2019-02-22 Out[facility] 26 [id number] Common 09:03:00 09:03:[address] [facility] 2019-02-18 2019-02-18 Out[facility] 26 [id number] Common 18:38:00 18:38:[address] [facility] 2019-02-18 2019-02-18 Out[facility] 26 [id number] Common 15:06:00 15:06:00 t [facility] [address] [facility] 2019-02-16 2019-02-16 Outpatient Reynaldo [facility] [id number] Common 16:06:00 16:06:00 t [facility] [address] [facility] 2019-02-15 2019-02-15 Outpatient Reynaldo [facility] [id number] Common 15:20:00 15:20:00 t [facility] [address] [facility] 2018-04-28 2018-04-30 Phone nullFlavo MNA [id number] Memoria 14:28:00 04:59:59 Message r Neurosurger 01 elle hudson Blaze hernandez 2018-04-28 2018-04-29 Outpatient MHMISCHER MHMISCHER [id number] 09:28:00 23:59:59 2018-04-07 2018-04-09 Phone nullFlavo MNA Spine [id number] Memoria 19:39:00 04:59:59 Message r Clinic [facility] 00 elle Solomon 2018-04-07 2018-04-08 Outpatient MHMISCHER MHMISCHER [id number] 14:39:00 23:59:59 2018-02-02 2018-02-02 Outpatient MHIE MHIE [id number] Memoria 10:45:00 10:45:00 02 elle Carbajal 2017-11-30 2017-11-30 Outpatient MHIE MHIE [id number] Memoria 13:00:00 13:00:00 01 elle Carbajal 2017-11-12 2017-11-12 Outpatient MHIE MHIE [id number] Memoria 11:30:00 11:30:00 00 elle Carbajal Results Test Description Test Time Test Comments Results Result [facility] e Comments L Inj/Asp: L 2021-02-06 [place] [id number] ? ? 02/27/2021 trochanteric 14:41:46 ?9:56 AML Inj/Asp: L bursa greater trochanteric bursa on 02/27/2021 9:41 AMIndications: painDetails: 22 G needle, lateral approachMedications: 1 mL bupivacaine 0.5 %; 80 mg triamcinolone acetonide 40 MG/MLOutcome: tolerated well, no immediate complicationsProcedu re, treatment alternatives, risks and benefits explained, specific risks discussed. Immediately prior to procedure a time out was called to verify the correct patient, procedure, equipment, marketing support specialist and site/side marked as required. Patient was prepped and draped in the usual sterile fashion. - XR HIP W/PEL 2020-12-0 UNI 2+V LT 9 10:05:00 [facility] 1965 Sex: F * Patient Name: ARI GODOY Unit No: [id number] EXAMS: CPT CODE: [id number] XR HIP W/PEL UNI 2+V LT 86182 AP pelvis with frog-leg view left hip [...] Lorri Orig Print D/T: S: 12/14/2020 (1009) [facility] NAME: ARI GODOY [address] [facility], [facility] [address] PHYS: [place] [address] : 1965 AGE: 55 SEX: F LOC: VICKY PHONE #: [phone] EXAM DATE: 12/14/2020 STATUS: REG CLI FAX #: [phone] RADIOLOGY NO: PAGE 1 Signed Report XR Lumbar Spine EXAMINATION: Lateral Lutheran Ap Lateral 9 neutral, flexion and Hosp ital Flexion And 18:32:20 extension views; AP Extension view of the lumbar spine in the [...] IMPRESSION: Relatively stable postoperative and degenerative changes. [id number] Interface, Radiology Results 11/13/2020 12:35 PM CST EXAMINATION : Lateral [...] upper quadrant.IMPRESSION: Relatively stable postoperative and degenerative changes.[id number] CHEM PANEL 2019-11-21 09:56:00 Test Item Value Reference Range Interpretation Comme nts Glucose Lvl (test code = Glucose Lvl) 215 70-99 [facility]2020-03-16 09:56:00 Test Item Value Reference Range Interpretation Comments BUN (test code = BUN) 15 7-22 [facility]2020-03-16 09:56:00 Test Item Value Reference Range Interpretation Comments Creatinine Lvl (test code = Creatinine 0.50 0.50-1.40 Lvl) [facility]2020-03-16 09:56:00 Test Item Value Reference Range Interpretation Comments Sodium Lvl (test code = Sodium Lvl) 137 135-145 [facility]2020-03-16 09:56:00 Test Item Value Reference Range Interpretation Comments Potassium Lvl (test code = Potassium 4.5 3.5-5.1 Lvl) [facility]2020-03-16 09:56:00 Test Item Value Reference Range Interpretation Comments Chloride Lvl (test code = Chloride Lvl) 102 95-109 [facility]2020-03-16 09:56:00 Test Item Value Reference Range Interpretation Comments CO2 (test code = CO2) 30 24-32 [facility]2020-03-16 09:56:00 Test Item Value Reference Range Interpretation Comments Calcium Lvl (test code = Calcium Lvl) 9.3 8.5-10.5 [facility]2020-03-16 09:56:00 Test Item Value Reference Range Interpretation Comments AGAP (test code = AGAP) 9.5 10.0-20.0 [facility]2020-03-16 09:56:00 Test Item Value Reference Range Interpretation Comments eGFR (test code = eGFR) 125 [facility]58[facility]-63 09:56:00 Test Item Value Reference Range Interpretation Comments Segs (test code = Segs) 71.7 45.0-75.0 [place] 667750-03-16 09:56:00 Test Item Value Reference Range Interpretation Comments Lymphocytes (test code = Lymphocytes) 17.6 20.0-40.0 [place] 667750-03-16 09:56:00 Test Item Value Reference Range Interpretation Comments Monocytes (test code = Monocytes) 8.4 2.0-12.0 [place] [address]-03-16 09:56:00 Test Item Value Reference Range Interpretation Comments Eosinophils (test code = 1.7 See_Comment [A utomated message] The Eosinophils) system which ge nerated this result tra nsmitted reference range : <=4.0. The reference r sharon was not used to int erpret this result as normal/abnormal . [place] [address]-03-16 09:56:00 Test Item Value Reference Range Interpretation Comments Basophils (test code = 0.6 See_Comment [Aut omated message] The Basophils) system which ge nerated this result tra nsmitted reference range : <=1.0. The reference r sharon was not used to int erpret this result as normal/abnormal . [place] [address]-03-16 09:56:00 Test Item Value Reference Range Interpretation Comments Neutrophils # (test code = Neutrophils 8.2 1.5-8.1 #) [place] [address]-03-16 09:56:00 Test Item Value Reference Range Interpretation Comments Lymphocytes # (test code = Lymphocytes 2.0 1.0-5.5 #) [place] [address]-03-16 09:56:00 Test Item Value Reference Range Interpretation Comments Monocytes # (test code 1.0 See_Comment [Aut omated message] The = Monocytes #) system which generated this result tra nsmitted reference range : <=0.8. The reference r sharon was not used to int erpret this result as normal/abnormal . [place] [address]-03-16 09:56:00 Test Item Value Reference Range Interpretation Comments Eosinophils # (test code 0.2 See_Comment [A utomated message] The = Eosinophils #) system whic h generated this result tra nsmitted reference range : <=0.5. The reference r sharon was not used to int erpret this result as normal/abnormal . [place] [address]-03-16 09:56:00 Test Item Value Reference Range Interpretation Comments Basophils # (test code 0.1 See_Comment [Aut omated message] The = Basophils #) system which generated this result tra nsmitted reference range : <=0.2. The reference r sharon was not used to int erpret this result as normal/abnormal . [place] [address]-03-16 09:56:00 Test Item Value Reference Range Interpretation Comments WBC (test code = WBC) 11.5 3.7-10.4 [place] [address]-03-16 09:56:00 Test Item Value Reference Range Interpretation Comments RBC (test code = RBC) 4.12 4.20-5.40 [place] [address]-03-16 09:56:00 Test Item Value Reference Range Interpretation Comments Hgb (test code = Hgb) 13.0 12.0-16.0 [place] [address]-03-16 09:56:00 Test Item Value Reference Range Interpretation Comments Hct (test code = Hct) 38.1 36.0-48.0 [place] [address]-03-16 09:56:00 Test Item Value Reference Range Interpretation Comments MCV (test code = MCV) 92.5 80.0-98.0 [place] [address]-03-16 09:56:00 Test Item Value Reference Range Interpretation Comments MCH (test code = MCH) 31.6 pg 27.0-31.0 [place] [address]-03-16 09:56:00 Test Item Value Reference Range Interpretation Comments MCHC (test code = MCHC) 34.2 32.0-36.0 [place] [address]-03-16 09:56:00 Test Item Value Reference Range Interpretation Comments RDW (test code = RDW) 13.3 11.5-14.5 [place] [address]-03-16 09:56:00 Test Item Value Reference Range Interpretation Comments Platelet (test code = Platelet) 260 133-450 [place] [address]-03-16 09:56:00 Test Item Value Reference Range Interpretation Comments MPV (test code = MPV) 8.0 7.4-10.4 [place] 539320-03-15 07:18:00 Test Item Value Reference Range Interpretation Comments Glucose Lvl (test code = Glucose Lvl) 205 70-99 [facility]2020-03-15 07:18:00 Test Item Value Reference Range Interpretation Comments BUN (test code = BUN) 18 7-22 [place] 539320-03-15 07:18:00 Test Item Value Reference Range Interpretation Comments Creatinine Lvl (test code = Creatinine 0.60 0.50-1.40 Lvl) [place] [address]-03-15 07:18:00 Test Item Value Reference Range Interpretation Comments Sodium Lvl (test code = Sodium Lvl) 137 135-145 [place] [address]-03-15 07:18:00 Test Item Value Reference Range Interpretation Comments Potassium Lvl (test code = Potassium 4.2 3.5-5.1 Lvl) [place] [address]-03-15 07:18:00 Test Item Value Reference Range Interpretation Comments Chloride Lvl (test code = Chloride Lvl) 102 95-109 [place] [address]-03-15 07:18:00 Test Item Value Reference Range Interpretation Comments CO2 (test code = CO2) 28 24-32 [place] [address]-03-15 07:18:00 Test Item Value Reference Range Interpretation Comments Calcium Lvl (test code = Calcium Lvl) 8.8 8.5-10.5 [place] 539320-03-15 07:18:00 Test Item Value Reference Range Interpretation Comments AGAP (test code = AGAP) 11.2 10.0-20.0 [place] [address]-03-15 07:18:00 Test Item Value Reference Range Interpretation Comments eGFR (test code = eGFR) 118 [place] [address]-03-15 07:18:00 Test Item Value Reference Range Interpretation Comments Magnesium Lvl (test code = Magnesium 1.8 1.8-2.4 Lvl) [place] [address]-03-15 07:18:00 Test Item Value Reference Range Interpretation Comments Phosphorus (test code = Phosphorus) 3.2 2.5-4.5 [place] [address]-03-15 07:18:00 Test Item Value Reference Range Interpretation Comments WBC (test code = WBC) 13.5 3.7-10.4 [place] [address]-03-15 07:18:00 Test Item Value Reference Range Interpretation Comments RBC (test code = RBC) 3.98 4.20-5.40 [place] [address]-03-15 07:18:00 Test Item Value Reference Range Interpretation Comments Hgb (test code = Hgb) 12.2 12.0-16.0 [facility]44 07:18:00 Test Item Value Reference Range Interpretation Comments Hct (test code = Hct) 37.0 36.0-48.0 [facility]plkhdaBDRGVPOKVD2221-09-68 07:18:00 Test Item Value Reference Range Interpretation Comments MCV (test code = MCV) 93.0 80.0-98.0 [facility]BixdssbSJAZQZHOMN0365-11-76 07:18:00 Test Item Value Reference Range Interpretation Comments MCH (test code = MCH) 30.7 pg 27.0-31.0 [facility]KbnubvvYRFGZCFYLR0832-93-80 07:18:00 Test Item Value Reference Range Interpretation Comments MCHC (test code = MCHC) 33.0 32.0-36.0 [facility]HgwalybWNHKQYGPRI3759-99-41 07:18:00 Test Item Value Reference Range Interpretation Comments RDW (test code = RDW) 13.2 11.5-14.5 [facility]MzmvrklXOUQJFDWUX9636-00-45 07:18:00 Test Item Value Reference Range Interpretation Comments Platelet (test code = Platelet) 256 133-450 [facility]IrbadclLWUEQBJJIA5409-28-46 07:18:00 Test Item Value Reference Range Interpretation Comments MPV (test code = MPV) 8.1 7.4-10.4 [facility]entonPcglexcCZBRVGWRDZ7461-49-75 07:18:00 Test Item Value Reference Range Interpretation Comments RBC Morph (test code = Normal (11/20/19 2:18 RBC Morph) AM) [facility]howhhoTXXFZXEMAY3555-46-17 07:18:00 Test Item Value Reference Range Interpretation Comments Plt Morph (test code = Normal (11/20/19 2:18 Plt Morph) AM) [facility]QdptijfXOULSADQFO2876-87-33 07:18:00 Test Item Value Reference Range Interpretation Comments Segs (test code = Segs) 83.0 45.0-75.0 [facility]RewqokoNYQBNIXKIZ2042-14-50 07:18:00 Test Item Value Reference Range Interpretation Comments Lymphocytes (test code = Lymphocytes) 11.2 20.0-40.0 [facility]UfhjjedWENXHLDUCG7344-19-01 07:18:00 Test Item Value Reference Range Interpretation Comments Monocytes (test code = Monocytes) 4.4 2.0-12.0 [place] [address]-03-15 07:18:00 Test Item Value Reference Range Interpretation Comments Eosinophils (test code = 1.1 See_Comment [A utomated message] The Eosinophils) system which ge nerated this result tra nsmitted reference range : <=4.0. The reference r sharon was not used to int erpret this result as normal/abnormal . [place] [address]-03-15 07:18:00 Test Item Value Reference Range Interpretation Comments Basophils (test code = 0.3 See_Comment [Aut omated message] The Basophils) system which ge nerated this result tra nsmitted reference range : <=1.0. The reference r sharon was not used to int erpret this result as normal/abnormal . [place] [address]-03-15 07:18:00 Test Item Value Reference Range Interpretation Comments Neutrophils # (test code = Neutrophils 11.2 1.5-8.1 #) [place] [address]-03-15 07:18:00 Test Item Value Reference Range Interpretation Comments Lymphocytes # (test code = Lymphocytes 1.5 1.0-5.5 #) [place] [address]-03-15 07:18:00 Test Item Value Reference Range Interpretation Comments Monocytes # (test code 0.6 See_Comment [Aut omated message] The = Monocytes #) system which generated this result tra nsmitted reference range : <=0.8. The reference r sharon was not used to int erpret this result as normal/abnormal . [place] [address]-03-15 07:18:00 Test Item Value Reference Range Interpretation Comments Eosinophils # (test code 0.1 See_Comment [A utomated message] The = Eosinophils #) system whic h generated this result tra nsmitted reference range : <=0.5. The reference r sharon was not used to int erpret this result as normal/abnormal . [place] [address]-03-15 07:18:00 Test Item Value Reference Range Interpretation Comments Basophils # (test code 0.0 See_Comment [Aut omated message] The = Basophils #) system which generated this result tra nsmitted reference range : <=0.2. The reference r sharon was not used to int erpret this result as normal/abnormal . [facility]VC[facility]44-69 07:18:00 Test Item Value Reference Range Interpretation Comments Ca Ion WB (test code = Ca Ion WB) 1.07 1.05-1.25 [facility] WVWASIF1472-19-25 07:18:00 Test Item Value Reference Range Interpretation Comments Ca Norm WB (test code = Ca Norm WB) 1.09 1.05-1.25 [facility]2020-03-14 07:06:00 Test Item Value Reference Range Interpretation Comments Phosphorus (test code = Phosphorus) 4.0 2.5-4.5 [facility]2020-03-14 07:06:00 Test Item Value Reference Range Interpretation Comments Magnesium Lvl (test code = Magnesium 1.7 1.8-2.4 Lvl) [facility]2020-03-14 07:06:00 Test Item Value Reference Range Interpretation Comments Glucose Lvl (test code = Glucose Lvl) 100 70-99 [facility]2020-03-14 07:06:00 Test Item Value Reference Range Interpretation Comments BUN (test code = BUN) 13 7-22 [facility]2020-03-14 07:06:00 Test Item Value Reference Range Interpretation Comments Creatinine Lvl (test code = Creatinine 0.50 0.50-1.40 Lvl) [facility]2020-03-14 07:06:00 Test Item Value Reference Range Interpretation Comments Sodium Lvl (test code = Sodium Lvl) 142 135-145 [facility]2020-03-14 07:06:00 Test Item Value Reference Range Interpretation Comments Potassium Lvl (test code = Potassium 3.8 3.5-5.1 Lvl) [facility]2020-03-14 07:06:00 Test Item Value Reference Range Interpretation Comments Chloride Lvl (test code = Chloride Lvl) 105 95-109 [facility] [facility]14 07:06:00 Test Item Value Reference Range Interpretation Comments CO2 (test code = CO2) 29 24-32 [place] [id number] 07:06:00 Test Item Value Reference Range Interpretation Comments AGAP (test code = AGAP) 11.8 10.0-20.0 [facility] HospitalCSS CorpNOV[facility] [id number] 07:06:00 Test Item Value Reference Range Interpretation Comments Calcium Lvl (test code = Calcium Lvl) 8.5 8.5-10.5 [facility] [id number] 07:06:00 Test Item Value Reference Range Interpretation Comments B/C Ratio (test code = B/C Ratio) 26 1 6-25 [place] 539320-03-14 07:06:00 Test Item Value Reference Range Interpretation Comments Total Protein (test code = Total 6.9 6.4-8.4 Protein) [place] 539320-03-14 07:06:00 Test Item Value Reference Range Interpretation Comments Albumin Lvl (test code = Albumin Lvl) 3.1 3.5-5.0 [facility] [id number] 07:06:00 Test Item Value Reference Range Interpretation Comments Globulin (test code = Globulin) 3.8 2.7-4.2 [facility]2020-03-14 07:06:00 Test Item Value Reference Range Interpretation Comments A/G Ratio (test code = A/G Ratio) 0.8 1 0.7-1.6 [facility] [id number] 07:06:00 Test Item Value Reference Range Interpretation Comments ALT (test code = ALT) 132 See_Comment [Auto mated message] The system which ge nerated this result transmit roberto carlos reference range : <=65. The reference range was not used to interpr et this result as tyler l/abnormal. [facility] [id number] 07:06:00 Test Item Value Reference Range Interpretation Comments AST (test code = AST) 184 See_Comment [Auto mated message] The system which ge nerated this result transmit roberto carlos reference range : <=37. The reference range was not used to interpr et this result as tyler l/abnormal. [facility] [id number] 07:06:00 Test Item Value Reference Range Interpretation Comments Alk Phos (test code = Alk Phos) 109 39-136 [facility] [id number] 07:06:00 Test Item Value Reference Range Interpretation Comments Bili Total (test code = Bili Total) 0.4 0.2-1.3 [facility] [id number] 07:06:00 Test Item Value Reference Range Interpretation Comments eGFR (test code = eGFR) 125 [id number] 07:06:00 Test Item Value Reference Range Interpretation Comments WBC (test code = WBC) 9.8 3.7-10.4 [facility]HsyjyykUSIBILNHTN9350-80-86 07:06:00 Test Item Value Reference Range Interpretation Comments RBC (test code = RBC) 3.94 4.20-5.40 [facility]entonRtahspxGWZFBRDTNL9354-25-48 07:06:00 Test Item Value Reference Range Interpretation Comments Hgb (test code = Hgb) 12.4 12.0-16.0 [facility]entonVzmxmjxJYNVITETYK1111-34-23 07:06:00 Test Item Value Reference Range Interpretation Comments Hct (test code = Hct) 36.6 36.0-48.0 [facility]entonXvuoljiJLCUHZMVHY1704-69-55 07:06:00 Test Item Value Reference Range Interpretation Comments MCV (test code = MCV) 92.9 80.0-98.0 [facility]entonJlytgdvYIPYNZHFKM2401-70-79 07:06:00 Test Item Value Reference Range Interpretation Comments MCH (test code = MCH) 31.4 pg 27.0-31.0 [facility]entonMyknpcfOCVSPQZYNT0208-08-24 07:06:00 Test Item Value Reference Range Interpretation Comments MCHC (test code = MCHC) 33.8 32.0-36.0 [facility]entonWvgectpUKYFHWVXXA4968-57-05 07:06:00 Test Item Value Reference Range Interpretation Comments RDW (test code = RDW) 13.1 11.5-14.5 [facility]entonSejzzhlTTKXMCMKHK0410-70-87 07:06:00 Test Item Value Reference Range Interpretation Comments Platelet (test code = Platelet) 246 133-450 [facility]entonStigmztADDMSEGWNU2689-40-06 07:06:00 Test Item Value Reference Range Interpretation Comments MPV (test code = MPV) 8.0 7.4-10.4 [facility]entonIaqmrtbLQBLNTFLLZ7326-58-76 07:06:00 Test Item Value Reference Range Interpretation Comments PTT (test code = PTT) 31.4 s 22.9-35.8 [facility]entonOqnwdwfDEPTNYUIYT6198-45-28 07:06:00 Test Item Value Reference Range Interpretation Comments PT (test code = PT) 13.7 s 12.0-14.7 [facility]entonUzchepnICTYMRBCYV0956-02-23 07:06:00 Test Item Value Reference Range Interpretation Comments INR (test code = INR) 1.05 1 0.85-1.17 [facility]entonZsuvbglVGNOVFWFTU6045-40-69 07:06:00 Test Item Value Reference Range Interpretation Comments Segs (test code = Segs) 68.3 45.0-75.0 [facility]entonLfkjhfeRLRGIPLCQM2849-70-59 07:06:00 Test Item Value Reference Range Interpretation Comments Lymphocytes (test code = Lymphocytes) 21.7 20.0-40.0 [facility]entonTzhjlywNUHZNICTEI6193-43-47 07:06:00 Test Item Value Reference Range Interpretation Comments Monocytes (test code = Monocytes) 7.7 2.0-12.0 [facility]entonLgndemwHWVBYDUDRI1157-94-09 07:06:00 Test Item Value Reference Range Interpretation Comments Eosinophils (test code = 1.7 See_Comment [A utomated message] The Eosinophils) system which ge nerated this result tra nsmitted reference range : <=4.0. The reference r sharon was not used to int erpret this result as normal/abnormal . [facility]entonXmyqlkeZFVSRNCYDP1197-18-51 07:06:00 Test Item Value Reference Range Interpretation Comments Basophils (test code = 0.6 See_Comment [Aut omated message] The Basophils) system which ge nerated this result tra nsmitted reference range : <=1.0. The reference r sharon was not used to int erpret this result as normal/abnormal . [facility]entonVliwmwiGIPYNADQBI7894-09-44 07:06:00 Test Item Value Reference Range Interpretation Comments Neutrophils # (test code = Neutrophils 6.7 1.5-8.1 #) [facility]entonTvgpjdsJGTIAFUHGT5469-64-53 07:06:00 Test Item Value Reference Range Interpretation Comments Lymphocytes # (test code = Lymphocytes 2.1 1.0-5.5 #) [facility]entonClajezrZPFAUBGALQ7065-46-30 07:06:00 Test Item Value Reference Range Interpretation Comments Monocytes # (test code 0.8 See_Comment [Aut omated message] The = Monocytes #) system which generated this result tra nsmitted reference range : <=0.8. The reference r sharon was not used to int erpret this result as normal/abnormal . [facility]entonTxrrczuGWZHBAPNCV5503-77-82 07:06:00 Test Item Value Reference Range Interpretation Comments Eosinophils # (test code 0.2 See_Comment [A utomated message] The = Eosinophils #) system whic h generated this result tra nsmitted reference range : <=0.5. The reference r sharon was not used to int erpret this result as normal/abnormal . [facility] CenterXttssebFSQOAAKAYI5281-38-02 07:06:00 Test Item Value Reference Range Interpretation Comments Basophils # (test code 0.1 See_Comment [Aut omated message] The = Basophils #) system which generated this result tra nsmitted reference range : <=0.2. The reference r sharon was not used to int erpret this result as normal/abnormal . [facility] [id number] 16:12:00 Test Item Value Reference Range Interpretation Comments Magnesium Lvl (test code = Magnesium 1.9 1.8-2.4 Lvl) [facility] [id number] 16:12:00 Test Item Value Reference Range Interpretation Comments Phosphorus (test code = Phosphorus) 4.8 2.5-4.5 [facility] HospitalTjdhiutLQVBIDQCDA1965-14-39 16:12:00 Test Item Value Reference Range Interpretation Comments PT (test code = PT) 13.9 s 12.0-14.7 [facility] HospitalBeusctmZAHVVEJDIG1345-50-61 16:12:00 Test Item Value Reference Range Interpretation Comments INR (test code = INR) 1.07 1 0.85-1.17 [facility] HospitalEyuvzjsCOZJUNQIPM1457-05-68 16:12:00 Test Item Value Reference Range Interpretation Comments PTT (test code = PTT) 28.3 s 22.9-35.8 [facility] HospitalGiyvmfpQDVWYQTBST5366-89-68 16:12:00 Test Item Value Reference Range Interpretation Comments Fibrinogen Lvl (test code = Fibrinogen 436 230-510 Lvl) [facility] HospitalBtzujthEGXQPY6317-81-98 16:12:00 Test Item Value Reference Range Interpretation Comments Trig (test code = Trig) 66 [facility] HospitalZtepqxsZHABAD2217-45-94 16:12:00 Test Item Value Reference Range Interpretation Comments Chol (test code = Chol) 134 [facility] HospitalHwdinepGKCBOP8931-12-54 16:12:00 Test Item Value Reference Range Interpretation Comments HDL (test code = HDL) 54 [facility] HospitalFtfaeygDYTRIY0977-07-44 16:12:00 Test Item Value Reference Range Interpretation Comments CHD Risk (test code = CHD Risk) 2.48 1 3.90-5.80 [facility] CenterNxlmyemVDCWWI0405-86-10 16:12:00 Test Item Value Reference Range Interpretation Comments LDL (Calculated) (test code = LDL 67 (Calculated)) [facility] CenterRtuxplwUKUGXW3983-96-06 16:12:00 Test Item Value Reference Range Interpretation Comments VLDL (test code = VLDL) 13 1 [facility] [id number] 16:12:00 Test Item Value Reference Range Interpretation Comments Ca Ion WB (test code = Ca Ion WB) 1.18 1.05-1.25 [facility] [id number] 16:12:00 Test Item Value Reference Range Interpretation Comments Ca Norm WB (test code = Ca Norm WB) 1.22 1.05-1.25 [facility]XemqhgpEQGEIBOUQZTW3176-38-72 12:16:00 Test Item Value Reference Range Interpretation Comments POC Sodium (test code = POC Sodium) 139 135-145 [facility] InstituteLtjlimbBWCNKEFOOWVD5196-80-04 12:16:00 Test Item Value Reference Range Interpretation Comments POC Potassium (test code = POC 4.9 3.5-5.1 Potassium) [facility] InstituteCrondbxVWLPMQHAZWVV2689-05-00 12:16:00 Test Item Value Reference Range Interpretation Comments POC Chloride (test code = POC Chloride) 102 95-109 [facility] InstituteGixbapmNIYJALGTAQOM0043-50-77 12:16:00 Test Item Value Reference Range Interpretation Comments POC Carbon Dioxide (test code = POC 31 24-32 Carbon Dioxide) [facility] InstituteEuadzmjQACFIAULYDSR0245-74-51 12:16:00 Test Item Value Reference Range Interpretation Comments POC BUN (test code = POC BUN) 24 7-22 [facility] InstituteZxauzzzKVUBFYVANRQW1416-27-09 12:16:00 Test Item Value Reference Range Interpretation Comments POC Creatinine (test code = POC 0.5 0.5-1.4 Creatinine) [facility] InstituteKkvxedoLDZZCOMMHXZE1530-92-46 12:16:00 Test Item Value Reference Range Interpretation Comments POC Glucose (test code = POC Glucose) 79 70-99 [facility] InstitutePjsiejvFZIAGKMVEFRY3813-18-48 12:16:00 Test Item Value Reference Range Interpretation Comments POC Ion Ca (test code = POC Ion Ca) 1.22 1.05-1.25 [facility] CaxzcylOFUFJKSEVTOS2130-82-61 12:16:00 Test Item Value Reference Range Interpretation Comments POC Hemoglobin (test code = POC 13.9 12.0-16.0 Hemoglobin) [facility] HospitalJegnrzlAYOAZEDKYYOG4166-18-08 12:16:00 Test Item Value Reference Range Interpretation Comments POC Hematocrit (test code = POC 41.0 36.0-48.0 Hematocrit) [facility] HospitalQyjkiglOTCJLXPWCWQI6123-30-54 12:16:00 Test Item Value Reference Range Interpretation Comments POC AGAP (test code = POC AGAP) 12.0 10.0-20.0 [facility] HospitalNzrcfzhKLDJWTZPCDLR2089-77-38 12:16:00 Test Item Value Reference Range Interpretation Comments POC Disclaimer (test code See Note = POC Disclaimer) *NA*(11/18/19 7:16 AM) [facility] [employer]. [id number] 11:55:00 Test Item Value Reference Range Interpretation Comments ABO/Rh (test code = ABO/Rh) A POS [facility] [employer] [id number] 11:55:00 Test Item Value Reference Range Interpretation Comments Antibody Scrn (test Negative (11/18/19 6:55 code = Antibody Scrn) AM) [facility] [employer] - [id number] 20:23:00 Test Item Value Reference Range Interpretation Comments MRSA by PCR (test Negative (11/14/19 3:23 code = MRSA by PCR) PM) [employer] [id number] 20:12:00 Test Item Value Reference Range Interpretation Comments ABO/Rh (test code = ABO/Rh) A POS [facility] [employer] [id number] 20:12:00 Test Item Value Reference Range Interpretation Comments Antibody Scrn (test Negative (11/14/19 3:12 code = Antibody Scrn) PM) [employer] [id number] 20:12:00 Test Item Value Reference Range Interpretation Comments Total Protein (test code = Total 7.5 6.4-8.4 Protein) [employer] [id number] 20:12:00 Test Item Value Reference Range Interpretation Comments Albumin Lvl (test code = Albumin Lvl) 3.5 3.5-5.0 [employer] [id number] 20:12:00 Test Item Value Reference Range Interpretation Comments ALT (test code = ALT) 19 See_Comment [Auto mated message] The system which ge nerated this result transmit roberto carlos reference range : <=65. The reference range was not used to interpr et this result as tyler l/abnormal. [facility] [employer] [id number] 20:12:00 Test Item Value Reference Range Interpretation Comments AST (test code = AST) 15 See_Comment [Auto mated message] The system which ge nerated this result transmit roberto carlos reference range : <=37. The reference range was not used to interpr et this result as tyler l/abnormal. [employer] [id number] 20:12:00 Test Item Value Reference Range Interpretation Comments Alk Phos (test code = Alk Phos) 74 39-136 [facility] [employer] [id number] 20:12:00 Test Item Value Reference Range Interpretation Comments Bili Total (test code = Bili Total) 0.2 0.2-1.3 [facility] [employer] [id number] 20:12:00 Test Item Value Reference Range Interpretation Comments B/C Ratio (test code = B/C Ratio) 17 1 6-25 [facility] [employer] [id number] 20:12:00 Test Item Value Reference Range Interpretation Comments Globulin (test code = Globulin) 4.0 2.7-4.2 [facility] [employer] [id number] 20:12:00 Test Item Value Reference Range Interpretation Comments A/G Ratio (test code = A/G Ratio) 0.9 1 0.7-1.6 [facility] TfleatvIQAERNSGMZ9914-54-47 20:12:00 Test Item Value Reference Range Interpretation Comments PT (test code = PT) 12.6 s 12.0-14.7 [facility] HwrzushTOFFIUROPV4349-65-22 20:12:00 Test Item Value Reference Range Interpretation Comments INR (test code = INR) 0.94 1 0.85-1.17 [facility] [employer]
[2022-05-14 08:20] LABS: Urine Blood Trace-intact (Negative); Urine Glucose 2+ (Negative); Urine Protein Trace (Negative)
[2022-05-14 08:21] LABS: Absolute Lymphocytes (CBC) 1.7 K/uL (0.7-4.9); Hematocrit 40.3 % (36.0-45.0); Lymphocytes % 17.4 % (15.3-44.8); MCV 88.4 fL (80-100); MPV 7.4 fL (7.6-11.3); RBC Red Blood Cell Count 4.56 M/uL (3.86-4.86)
[2022-05-14 08:37] LABS: Albumin 3.5 g/dL (3.4-5.0); Bilirubin Total 0.2 mg/dL (0.2-1.0); Protein, Total 7.6 g/dL (6.4-8.2)
[2022-05-14] MEDS ORDERED: ONDANSETRON 4 MG/2 ML VIAL ONE (08:51)
[2022-05-14] MEDS ORDERED: FAMOTIDINE 20 MG/2 ML VIAL IV ONE (08:52)
[2022-05-14 09:00] LABS: Urine Bacteria >50 /HPF (<20); Urine RBC <5 /HPF (None Seen)
--- NOTE | 2022-05-14 09:50 | RAD REPORT ---
EXAM DESCRIPTION: CTAbdomen Pelvis W Contrast - 05/14/2022 9:19 am CLINICAL HISTORY: LUQ pain, constipation COMPARISON: 06/02/2019, 10/22/2021 TECHNIQUE: CT of the abdomen and pelvis was performed. All CT scans are performed using dose optimization technique as appropriate and may include automated exposure control or mA/KV adjustment according to patient size. FINDINGS: Lower chest: Emphysema. Circumferential thickened distal esophagus. Liver: Hypoattenuation along the gallbladder fossa and falciform ligament likely due to fatty infiltr ation. Biliary: Cholecystectomy Stomach: No significant focal abnormality. Duodenum: No significant focal abnormality. Pancreas: No significant abnormality. Spleen: No significant abnormality. Adrenal: No suspicious lesions. Kidney/ureter: No hydronephrosis. No renal calculi. Retroperitoneum: No retroperitoneal adenopathy. Vascular: No aneurysm. Bowel: No significant focal abnormality. No appendix identified. Peritoneum: No ascites or free air. Bladder: Grossly unremarkable. Reproductive: Hysterectomy Bones: No acute fracture.L5-S1 fusion. Other: n/a IMPRESSION: No acute intra-abdominal or pelvic finding. Incidental findings as noted above.
--- NOTE | 2022-05-14 11:12 | EDPHYS ---
Physician Documentation [facility] Name: Charlotte Ruvalcaba Age: 57 yrs Sex: Female : 1965 Arrival Date: 05/14/2022 Time: 07:30 Bed 23 Private MD: Naseem Sanchez E ED Physician Isael Grier HPI: 05/14 07:48 This 57 yrs old Black Female presents to ER via Ambulatory with complaints of ms3 Constipation, Abdominal Pain. 07:48 57-year-old female with past medical history of asthma, breast cancer, chronic pain, ms3 diabetes, hypothyroidism, hyperlipidemia presents for left upper quadrant abdominal pain and constipation that has been ongoing for 5 days. Patient denies alleviating or inciting factors. Patient states her discomfort is moderate and the sensation of being bloated. Patient endorses nausea, vomiting, chills. Patient denies urinary symptoms.. Historical: - Allergies: 07:45 NKDA; iw - PMHx: 07:45 Asthma; breast cancer; chronic pain, sees pain doctor; Diabetes - IDDM; COPD; iw Hypothyroidism; Gout; Hypertension; - PSHx: 07:45 back sx; iw ROS: 07:48 Neck: Negative for injury, pain, and swelling, Cardiovascular: Negative for chest pain, ms3 and palpitations. Respiratory: Negative for shortness of breath, cough, wheezing, and pleuritic chest pain. 07:48 Skin: Negative for injury, rash, and discoloration, Neuro: Negative for headache, weakness, numbness, tingling. 07:48 Constitutional: Positive for chills. 07:48 Abdomen/GI: Positive for abdominal pain, nausea and vomiting. 07:48 All other systems are negative. Exam: 07:48 Constitutional: This is a well developed, well nourished patient who is awake, alert, ms3 and in no acute distress. Head/Face: Normocephalic, atraumatic. Eyes: Pupils equal round and reactive to light, extra-ocular motions intact. Lids and lashes normal. Conjunctiva and sclera are non-icteric and not injected. Periorbital areas with no swelling, redness, or edema. Chest/axilla: Normal chest wall appearance and motion. Nontender with no deformity. Cardiovascular: Regular rate and rhythm with a normal S1 and S2. No gallops, murmurs, or rubs. Normal PMI, no JVD. No pulse deficits. Respiratory: Lungs have equal breath sounds bilaterally, clear to auscultation and percussion. No rales, rhonchi or wheezes noted. No increased work of breathing, no retractions or nasal flaring. 07:48 Skin: Warm, dry with normal turgor. Normal color with no rashes, no lesions, and no evidence of cellulitis. MS/ Extremity: Pulses equal, no cyanosis. Neurovascular intact. Full, normal range of motion. Psych: Awake, alert, with orientation to person, place and time. Behavior, mood, and affect are within normal limits. 07:48 Abdomen/GI: Inspection: abdomen appears normal, Bowel sounds: normal, Palpation: mild abdominal tenderness, in the left upper quadrant. Vital Signs: 07:46 BP 160 / 85; Pulse 79; Resp 18; Temp 98.2; Pulse Ox 98% on R/A; iw 09:13 BP 142 / 64; Pulse 70; Resp 16; Pulse Ox 98% on R/A; vg1 MDM: 07:48 Patient medically screened. ms3 07:48 Differential diagnosis: bowel obstruction, gastritis, gastroesophageal reflux disease, ms3 non-specific abd pain, Constipation. 11:11 Data reviewed: vital signs, nurses notes, lab test result(s), radiologic studies, and ms3 as a result, I will discharge patient. Counseling: I had a detailed discussion with the patient and/or guardian regarding: the historical points, exam findings, and any diagnostic results supporting the discharge/admit diagnosis, lab results, radiology results, the need for outpatient follow up, to return to the emergency department if symptoms worsen or persist or if there are any questions or concerns that arise at home. Special discussion: I discussed with the patient/guardian in detail that at this point there is no indication for admission to the hospital. It is understood, however, that if the symptoms persist or worsen the patient needs to return immediately for re-evaluation. 05/14 07:53 Order name: CBC with Diff ms3 05/14 07:53 Order name: CMP ms3 05/14 07:53 Order name: Lipase ms3 05/14 07:53 Order name: Urine Microscopic Only ms3 05/14 08:20 Order name: Urine Dipstick-Ancillary EDMS 05/14 09:06 Order name: Urine Culture EDMS 05/14 07:53 Order name: IV Saline Lock; Complete Time: 08:13 ms3 05/14 07:53 Order name: Labs collected and sent; Complete Time: 08:13 ms3 05/14 08:57 Order name: Abdomen EDMS 05/14 07:53 Order name: Urine Dipstick-Ancillary (obtain specimen); Complete Time: 08:20 ms3 Administered Medications: 08:45 Drug: Pepcid (famotidine) 20 mg Route: IVP; Site: right wrist; iw 09:15 Follow up: Response: No adverse reaction iw 08:45 Drug: Zofran (Ondansetron) 4 mg Route: IVP; Site: right wrist; iw 09:15 Follow up: Response: No adverse reaction iw 11:19 Not Given (Physician Discretion): soap suds enem 1 units [place] bolus iw 11:19 Drug: Fleet Enema (sodium phosphate) 133 ml Route: KS; iw 11:35 Follow up: Response: No adverse reaction iw Disposition Summary: 05/14/22 11:11 Discharge Ordered Location: Home ms3 Condition: Stable ms3 Diagnosis - Abdominal pain, unspecified ms3 - Constipation ms3 - Elevated blood-pressure reading, without diagnosis of hypertension ms3 Followup: ms3 - With: Naseem Sanchez MD - When: 2 - 3 days - Reason: Recheck today's complaints Discharge Instructions: - Discharge Summary Sheet ms3 - Abdominal Pain, Adult ms3 Forms: - Medication Reconciliation Form ms3 - Thank You Letter ms3 - Antibiotic Education ms3 - Prescription Opioid Use ms3 Signatures: Dispatcher [employer] Natalie Paulino, RN RN Isael Wilson DO DO ms3
--- NOTE | 2022-05-14 11:12 | ER ---
Nurse's Notes [facility] Name: Charlotte Ruvalcaba Age: 57 yrs Sex: Female : 1965 Arrival Date: 05/14/2022 Time: 07:30 Bed 23 Private MD: Naseem Sanchez E Diagnosis: Abdominal pain, unspecified;Constipation;Elevated blood-pressure reading, without diagnosis of hypertension Presentation: 05/14 07:45 Chief complaint: Patient states: constipation X 5 days, last BM was Thursday , also has iw bloating , +nausea , +chills , takes hydrocodone. Coronavirus screen: At this time, the client does not indicate any symptoms associated with coronavirus-19. Ebola Screen: Patient negative for fever greater than or equal to 101.5 degrees Fahrenheit, and additional compatible Ebola Virus Disease symptoms Patient denies exposure to infectious person. Patient denies travel to an Ebola-affected area in the 21 days before illness onset. No symptoms or risks identified at this time. 07:45 Method Of Arrival: Ambulatory iw 07:45 Acuity: RASHAD 3 iw 11:29 Initial Sepsis Screen: Does the patient meet any 2 criteria? No. Patient's initial iw sepsis screen is negative. Does the patient have a suspected source of infection? No. Patient's initial sepsis screen is negative. Risk Assessment: Do you want to hurt yourself or someone else? Patient reports no desire to harm self or others. Onset of symptoms was May 14, 2022. Historical: - Allergies: 07:45 NKDA; iw - PMHx: 07:45 Asthma; breast cancer; chronic pain, sees pain doctor; Diabetes - IDDM; COPD; iw Hypothyroidism; Gout; Hypertension; - PSHx: 07:45 back sx; iw Screenin:11 Abuse screen: Denies threats or abuse. Nutritional screening: No deficits noted. vg1 Tuberculosis screening: No symptoms or risk factors identified. Fall Risk No fall in past 12 months (0 pts). No secondary diagnosis (0 pts). IV access (20 points). Ambulatory Aid- None/Bed Rest/Nurse Assist (0 pts). Gait- Normal/Bed Rest/Wheelchair (0 pts) Mental Status- Oriented to own ability (0 pts). Total Stafford Fall Scale indicates No Risk (0-24 pts). Assessment: 09:11 General: Appears in no apparent distress. uncomfortable, Behavior is calm, cooperative. vg1 Pain: Complains of pain in left upper quadrant Pain currently is 8 out of 10 on a pain scale. Pain began x5 days. Neuro: Level of Consciousness is awake, alert, obeys commands, Oriented to person, place, time, situation. Cardiovascular: Patient's skin is warm and dry. Respiratory: Airway is patent Respiratory effort is even, unlabored. GI: Abdomen is round non-distended, Last BM was May 09, 2022. Bowel sounds present X 4 quads. Abdomen is tender to palpation in left upper quadrant Reports nausea, vomiting, Patient currently denies diarrhea. : No signs and/or symptoms were reported regarding the genitourinary system. EENT: No signs and/or symptoms were reported regarding the EENT system. Derm: Skin is pink, warm \T\ dry. Musculoskeletal: Circulation, motion, and sensation intact. 10:14 Reassessment: Patient appears in no apparent distress at this time. No changes from vg1 previously documented assessment. Patient and/or family updated on plan of care and expected duration. Pain level reassessed. Patient is alert, oriented x 3, equal unlabored respirations, skin warm/dry/pink. 11:29 Reassessment: Patient appears in no apparent distress at this time. Patient and/or iw family updated on plan of care and expected duration. Pain level reassessed. Patient is alert, oriented x 3, equal unlabored respirations, skin warm/dry/pink. Patient states feeling better. Patient states symptoms have improved. Vital Signs: 07:46 BP 160 / 85; Pulse 79; Resp 18; Temp 98.2; Pulse Ox 98% on R/A; iw 09:13 BP 142 / 64; Pulse 70; Resp 16; Pulse Ox 98% on R/A; vg1 ED Course: 07:30 Patient arrived in ED. am2 07:30 Naseem Sanchez MD is Private Physician. am2 07:31 Isael Grier DO is Attending Physician. ms3 07:45 Triage completed. iw 07:46 Arm band placed on. iw 08:06 Natalie Causey, RN is Primary Nurse. iw 08:13 CBC with Diff Sent. em1 08:13 CMP Sent. em1 08:13 Lipase Sent. em1 08:13 Initial lab(s) drawn, by nv, sent to lab. Inserted saline lock: 22 gauge in right em1 forearm, using aseptic technique. Blood collected. 08:58 Primary Nurse role handed off by Natalie Causey RN vg1 08:58 Elma Velásquez, RN is Primary Nurse. vg1 09:11 Patient has correct armband on for positive identification. Bed in low position. Call vg1 light in reach. Side rails up X 1. Pulse ox on. NIBP on. 09:21 Abdomen In Process Unspecified. EDMS 11:10 Naseem Sanchez MD is Referral Physician. ms3 11:29 No provider procedures requiring assistance completed. IV discontinued, intact, iw bleeding controlled, No redness/swelling at site. Pressure dressing applied. Administered Medications: 08:45 Drug: Pepcid (famotidine) 20 mg Route: IVP; Site: right wrist; iw 09:15 Follow up: Response: No adverse reaction iw 08:45 Drug: Zofran (Ondansetron) 4 mg Route: IVP; Site: right wrist; iw 09:15 Follow up: Response: No adverse reaction iw 11:19 Not Given (Physician Discretion): soap suds enem 1 units [place] bolus iw 11:19 Drug: Fleet Enema (sodium phosphate) 133 ml Route: [place]; iw 11:35 Follow up: Response: No adverse reaction iw Medication: 09:11 VIS not applicable for this client. vg1 Outcome: 11:11 Discharge ordered by . ms3 11:29 Patient left the ED. iw 11:29 Discharged to home ambulatory. iw 11:29 Condition: good 11:29 Discharge instructions given to patient, Instructed on discharge instructions, follow up and referral plans. Demonstrated understanding of instructions, follow-up care. Signatures: Dispatcher [employer] EDMS Natalie Causey, RN RN iw [place] em1 Sheila Peralta am2 Elma Velásquez RN RN vg1 Isael Grier DO DO ms3 Corrections: (The following items were deleted from the chart) 07:52 07:46 BP 160 / 85; Pulse 79bpm; Resp 18bpm; Pulse Ox 98% RA; iw iw
[2022-05-14] MEDS ORDERED: FLEET ENEMA ADULT PR ONE (11:18)
[2022-05-14 11:45] VITALS: TEMP 98.2; O2SAT 98
[2022-05-14 11:53] VITALS: BP 142/64
== END 2022-05-14 11:29 | disposition home or self-care (01) ==
LOC: ER 07:25
DX: K59.00 Constipation, unspecified (principal); I10 Essential (primary) hypertension; E11.9 Type 2 diabetes mellitus without complications; Z85.3 Personal history of malignant neoplasm of breast
CPT/HCPCS: 87088; 85025; 87086; 36415; 87077; 87186; 83690; 80053; 74177; 96375; 96374; 99284; Q9967; J2405; 81003; 81015

== ENCOUNTER 2022-06-02 18:38 | Emergency (ER) | payer OTHER ==
[2012-02-11 10:03] VITALS: BP 172/79
--- OUTSIDE RECORDS SUMMARY | 2022-06-02 19:27 | XMS REPORT | Continuity of Care Document ---
:1965 Author Organization [facility] t Address [address] [place] [address] Care Team Providers Name Role Phone SanchezNaseem Gilmer Primary Care Physician Baljeet De Anda Attending Clinician Unavailable GIANNA ROBERTS Attending Clinician Unavailable Vira Guerrero Attending Clinician Unavailable Tawana Ramirez Attending Clinician Unavailable JOSH BENNETT Attending Clinician Unavailable Armond Montoya MD Attending Clinician [phone] ALE FOREMAN Attending Clinician Unavailable Ale Banda Attending Clinician Doctor Unassigned, [place] Attending Clinician Unavailable Chanel Gupta DO Attending Clinician Josh Bennett Attending Clinician Armond Siu APRN Attending Clinician Francisco Andrea Attending Clinician Unavailable Tita BRINK, Royce Wolf Attending Clinician Delvin Nick Attending Clinician Darrius To MD Attending Clinician Gilmer Hurst Attending Clinician ChikaSadia kelly I Attending Clinician SADIA FARR I Attending Clinician Unavailable Referred, Self Admitting Clinician Unavailable Sadia Farr I Admitting Clinician SADIA FARR I Admitting Clinician Unavailable Payers Payer Name Policy Type Policy Number Effective Date Expiration Date Klarissa [place] [id number] 2016 MEDICAID [id number] 00:00:00 Problems Condition Condition Condition Status Onset Resolution Last Treating Co mments Source Name Details Category Date Date Treatment Clinician Date DX: DX: Diagnosis Active 2022-02-10 Mem oria R11.0=NAUS R11.0=NAUS 01-27 10:13:00 l EA/R10.12= EA/R10.12= 00:00: He rmann LEFT UPPER LEFT UPPER 00 QUADR QUADR Active 01/27/2022 [facility] Ganglion Ganglion Disease Active Overview: Un donaldo cyst of cyst of 11-05 Formattin ity o f finger finger 00:00: g of this [place] 00 note Medical might be Branch different from the original. Added automatic ally from request for surgery [id number] SACROLIAC SACROLIAC Diagnosis Active 2020-092021-06-25 Memoria LT, MAGALIE LT, MAGALIE 0-05 13:48:00 l HIP HIP 08:00: Solomon BURSITIS, BURSITIS, 00 IT BAND IT BAND Active 06/11/2021 [facility] M53.3 - M53.3 - Diagnosis Active 2021-04-03 Memoria SACROCOCCY SACROCOCCY 03-05 07:05:00 l GEAL GEAL 00:01: [place] DISORDERS, DISORDERS, 00 NOT NOT Active 03/05/2021 [facility] Disease Active [facility] trochanter trochanter [...] Added automatic ally from request for surgery [id number] Painful Painful Disease Active Univers orthopaedi orthopaedi 04-12 [place] I65.22 I65.22 Diagnosis Active 2019-11-24 Me moria Active 11-07 21:49:00 l 11/08/2019 00:00: Andrei kaur 00 [facility] N/A N/A Diagnosis Active 2019-11-16 Mem oria Active 11-07 09:55:00 l 11/08/2019 00:00: Andrei kaur 00 [facility] Degenerati Degenerati Disease Active 2017-09 [...] Dysfuncti onal uterine bleedingI CD10 Diagnosis Term Obgyn Nurse Utility Type 2 Type 2 Disease Active Overview: Univer s diabetes diabetes 01-13 Formattin ity of mellitus mellitus 00:00: g of this [place] as without without 00 note Medical complicati complicati might be Branch ons ons different from the original. ICD10 Diagnosis Term Obgyn Nurse Utility Uncontroll Uncontroll Problem Active C ommon ed type 2 ed type 2 Spir it diabetes diabetes - [facility] mellitus mellitus St with with [facility] hyperglyce hyperglyce Me dical [facility] Anxiety Anxiety Problem Active Common [facility] Asthma, Asthma, Problem Active Common unspecifie unspecifie Sp yaron d asthma d asthma - [facility] severity, severity, St unspecifie unspecifie Verenice kes d whether d whether Medi cipriano complicate complicate Ce nter d, d, unspecifie unspecifie d whether d whether persistent persistent Diabetes Diabetes Problem Active Commo n [facility] Swelling Swelling Problem Active Commo n [facility] High blood High blood Problem Active C [facility] pressure pressure [facility] Sinus Sinus Problem Active Common problem problem [facility] High High Problem Active Common cholestero cholestero Sp yaron l [facility] Depression Depression Problem Active C ommon with with Spirit anxiety anxiety [facility] Acquired Acquired Problem Active Commo n hypothyroi hypothyroi Sp yaron dism dism [facility] Chronic Chronic Problem Active Common pain pain Spirit syndrome syndrome - [facility] Polyarthra Polyarthra Problem Active C ommon lgia lgia [facility] Gastroesop Gastroesop Problem Active C ommon [...] n urine odor urine odor Sp yaron [facility] Hoarseness Hoarseness Problem Active C ommon [facility] Hyperlipid Hyperlipid Problem Active C ommon emia, emia, Spirit unspecifie unspecifie - [facility] d d St hyperlipid hyperlipid Verenice [facility] emia type emia type [facility] Sore Sore Problem Active Common throat throat [facility] Non-intrac Non-intrac Problem Active C ommon table table Spirit vomiting vomiting - [facility] with with St nausea, nausea, [facility] unspecifie unspecifie Me dical d vomiting d vomiting Ce nter type type Chest Chest Problem Active Common tightness tightness Spir [facility] Exposure Exposure Problem Active Commo n to mold to mold [facility] Wheezing Wheezing Problem Active Commo n [facility] Shortness Shortness Problem Active Com mon of breath of breath Spir [facility] Itching Itching Problem Active Common [facility] Muscle Muscle Problem Active Common cramping cramping [facility] Right leg Right leg Problem Active Com mon pain pain [facility] Acute Acute Problem Active Common right-side right-side Sp yaron d thoracic d thoracic [facility] back pain back pain [facility] Low back Low back Problem Active Commo n pain pain [facility] Other Other Problem Active Common chronic chronic [facility] pain [facility] Lumbago Lumbago Problem Active Common with with Spirit sciatica, sciatica, - [facility] I right side right side [facility] Status Status Problem Active Common post fall post fall Spir [facility] Dizziness Dizziness Problem Active Com mon [facility] Imbalance Imbalance Problem Active Com mon [facility] Difficulty Difficulty Problem Active C ommon sleeping sleeping [facility] Acute Acute Problem Active Common stress stress Spirit reaction reaction [facility] 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 Spirit both both [facility] carotid carotid arteries [facility] Stenosis Stenosis Problem Active Commo n of left of left Spirit carotid carotid - [facility] artery artery [facility] Status Status Problem Active Common post CVA post CVA [facility] Stenosis Stenosis Problem Active Commo n of right of right Spirit carotid carotid - [facility] artery artery [facility] Obesity Obesity Disease Active Univers (BMI (BMI ity of 30-39.9) 30-39.9) [place] [facility] Occlusion Occlusion Problem 2019-11-23 Memoria and and 21:46:33 l stenosis stenosis Andrei n of left of left carotid carotid artery artery 11/23/2019 [facility] Carotid Carotid Problem Active 2021-07-27 M emoria artery artery 01:20:12 l stenosis stenosis Andrei n (disorder) (disorder) Active Problem 07/27/2021 [facility], OPID [place],[facility], [facility] Carpal Carpal Problem Active 2021-07-27 Brennen oscar 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 Andrei n (disorder) (disorder) Active Problem 07/27/2021 [facility], OPID [place],[facility], [facility] Diabetes Diabetes Problem Active 2021-07-27 Memoria mellitus mellitus 01:20:12 l (disorder) (disorder) He rmann Active Problem 07/27/2021 [facility], OPID [place],[facility], [facility] Diabetes Diabetes Problem Active 2021-07-27 Memoria mellitus mellitus 01:20:12 l type 2 type 2 [place] (disorder) (disorder) Active Problem 07/27/2021 [facility], OPID [place],[facility], [facility] Disorder Disorder Problem Active 2021-07-27 Memoria of carotid of carotid 01:20:12 l artery artery [place] (disorder) (disorder) Active Problem 07/27/2021 [facility] Neuro, OPID [place],[facility], [facility] Hypertensi Problem Active 2021-07-27 M emoria ve Hypertensi 01:20:12 l disorder, ve [place] systemic disorder, arterial systemic (disorder) arterial (disorder) Active Problem 07/27/2021 [facility] Neuro, OPID [place],[facility], [facility] Hyperlipid Hyperlipi Problem Active 2021-07-27 Memoria emia demia 01:20:12 l (disorder) (disorder) He rmann Active Problem 07/27/2021 [facility], CHARLEEN [place],M [facility], [facility] Hypothyroi Hypothyro Problem Active 2021-07-27 Memoria dism idism 01:20:12 l (disorder) (disorder) He rmann Active Problem 07/27/2021 [facility] Neuro,[facility] CHARLEEN Carras[place],M H [facility], [facility] Simple Simple Problem Active 2021-07-27 Brennen oscar obesity obesity 01:20:12 l (disorder) (disorder) He rmann Active Problem 07/27/2021 [facility] Neuro, CHARLEEN Carrasco,M H [facility], [facility] OCCLUSION OCCLUSION Diagnosis Active 2019-11-24 Memoria AND AND 21:49:00 l STENOSIS STENOSIS Andrei n OF LEFT OF LEFT CAROTID A CAROTID A Active [facility] Allergies, Adverse Reactions, Alerts Allergy Allergy Status Severity Reaction(s) Onset Inactive Treating Comm ents Source Name Type Date Date Clinician NO KNOWN Drug Active Univers ALLERGIE Class ity of S [facility] Family History Family Member Diagnosis Comments Start Date Stop Date Source Natural father [facility] Natural mother COPD [facility] Natural mother [facility] Natural mother [facility] Social History Social Habit Start Date Stop Date Quantity Comments Source History of tobacco Cigarette Smoker [facility] Exposure to 2022-04-26 2022-05-06 Not sure University SARS-CoV-2 (event) 00:00:00 10:12:00 [facility] Tobacco use and 2021-02-27 2021-02-27 Smokeless [facility] exposure 00:00:00 00:00:00 tobacco non-user Social History 2019-11[facility]14 [facility] 21[facility]12[facility]20 Alcohol intake 2018-07-19 2018-07-19 Current [facility] 00:00:00 00:00:00 non-drinker of Hospital alcohol (finding) Cigarettes smoked 2018-07-15 2018-07-[address] current [facility] - Reported Sex Ass[birth year] At [birth year] [facility] Smoking Status Start Date Stop Date Source Ex-smoker 2018-07-15 00:00:00 2018-07-15 00:00:00 [facility] Never smoked tobacco [facility] Medications Ordered Filled Start Stop Current Ordering Indication Dosage Frequency Signature Comments Components Source Medication Medication Date Date Medication? Clinician (SIG) Name Name methylPREDN 0 Yes [id number] 84mg Take 21 Univers ISolone 8-26 [id number] tablets by ity of (MEDROL, 00:00: mouth [place] ARLENE,) 4 mg 00 SEE-INSTRU Med ical tablets CTIONS. Branch follow package directions cyclobenzap 2021- Yes [id number] 10mg Take 1 Univers rine 10 mg 8-26 [id number] tablet by it y of tablet 00:00: mouth in [place] 00 the Medical morning Branch and 1 tablet at noon and 1 tablet in the evening. methylPREDN 2021- Yes [id number] 84mg Take 21 Univers ISolone 8-26 [id number] tablets by ity of (MEDROL, 00:00: mouth [place] ARLENE,) 4 mg 00 SEE-INSTRU Med ical tablets CTIONS. Branch follow package directions cyclobenzap Yes [id number] 10mg Take 1 Univers rine 10 mg 8-26 [id number] tablet by it y of tablet 00:00: mouth in [place] 00 the Medical morning Branch and 1 tablet at noon and 1 tablet in the evening. ondansetron 2021- Yes [id number] 4mg Take 1 Univers 4 mg 6-04 tablet by ity of disintegrat 00:00: mouth [place] ing tablet 00 every 12 Medic al (twelve) Branch hours as needed for Nausea and Vomiting (N/V). ondansetron 2021-0 Yes [id number] 4mg Take 1 Univers 4 mg 6-04 tablet by ity of disintegrat 00:00: mouth [place] ing tablet 00 every 12 Medic al (twelve) Branch hours as needed for Nausea and Vomiting (N/V). ondansetron 2021-0 Yes [id number] 4mg Take 1 Univers 4 mg 6-04 tablet by ity of disintegrat 00:00: mouth [place] ing tablet 00 every 12 Medic al (twelve) Branch hours as needed for Nausea and Vomiting (N/V). dicyclomine 2021-0 Yes [id number] 20mg Take 1 Univers 20 mg 3-29 tablet by ity of tablet 00:00: mouth 4 [place] 00 (four) Medical times Branch daily. ondansetron 0 Yes [id number] 4mg Take 1 Univers 4 mg 3-29 tablet by ity of disintegrat 00:00: mouth [place] ing tablet 00 every 4 Medica l (four) Branch hours as needed for Nausea and Vomiting (N/V). dicyclomine 0 Yes [id number] 20mg Take 1 Univers 20 mg 3-29 tablet by ity of tablet 00:00: mouth 4 [place] 00 (four) Medical times Branch daily. ondansetron 0 Yes [id number] 4mg Take 1 Univers 4 mg 3-29 tablet by ity of disintegrat 00:00: mouth [place] ing tablet 00 every 4 Medica l (four) Branch hours as needed for Nausea and Vomiting (N/V). dicyclomine Yes [id number] 20mg Take 1 Univers 20 mg 3-29 tablet by ity of tablet 00:00: mouth 4 00 (four) Medical times Branch daily. ondansetron 0 Yes [id number] 4mg Take 1 Univers 4 mg 3-29 tablet by ity of disintegrat 00:00: mouth [place] ing tablet 00 every 4 Medica l (four) Branch hours as needed for Nausea and Vomiting (N/V). AMITRIPTYLI Yes 1 tab Unive rs NE 50 MG 3-14 every AM ity of ORAL TAB 11:59: [place] 28 Medical Branch simvastatin Yes 40mg Take 40 mg Univers (ZOCOR) 40 3-14 by mouth ity o f mg tablet 11:59: at [place] [address] bedtime. Medical Branch levothyroxi Yes 50ug Take 50 Uni vers ne 3-14 mcg by ity of (SYNTHROID) 11:59: mouth [place] 50 mcg 28 every Medical tablet morning. Branch ALBUTEROL Yes 1{puff} Inhale 1 U nivers SULFATE HFA 3-14 Puff as ity o f INHALE 11:59: needed. [place] [address] Medical Branch HYDROcodone Yes 1{tbl} Take 1 Un donaldo -acetaminop 3-14 tablet by ity of hen 10-325 11:59: [place] 3 [place] mg tablet 28 (three) Medical times Branch daily as needed. MAGNESIUM Yes 1{tbl} Take 1 Univ ers ORAL 3-14 tablet by ity of 11:59: mouth. [address] Branch aspirin 81 Yes 81mg Take 81 mg U nivers mg EC 3-14 by mouth. ity of tablet 11:59: [address] estradioL Yes .5mg Take 0.5 Univ ers 0.5 mg 3-14 mg by ity of tablet 11:59: mouth. [address] esomeprazol Yes 40mg Take 40 mg Univers e 40 mg 3-14 by mouth. ity of capsule 11:59: [address] gabapentin Yes 600mg Take 600 Un donaldo ER 600 mg 3-14 mg by ity of tablet, 11:59: mouth. [place] [address] Medical release 24 Branch hr insulin Yes 85U inject 85 Unive rs degludec 3-14 Units ity of 100 unit/mL 11:59: under the [place] ([facility] Branch semaglutide Yes Take by Uni vers (RYBELSUS) 3-14 mouth. ity of 7 mg Tab 11:59: [address] trazodone Yes Take by Unive rs HCl 3-14 mouth. ity of (TRAZODONE 11:59: [facility]) [address] [place] [address] Branch FAMOTIDINE Yes Take by Univ ers ORAL 3-14 mouth. ity of 11:59: [address] linaclotide Yes Take by Uni vers (LINZESS 3-14 mouth. ity of ORAL) 11:59: [address] AMITRIPTYLI Yes 1 tab Unive rs NE 50 MG 3-14 every AM ity of ORAL TAB 11:59: [address] simvastatin Yes 40mg Take 40 mg Univers (ZOCOR) 40 3-14 by mouth ity o f mg tablet 11:59: at [place] [address] bedtime. Medical Branch levothyroxi Yes 50ug Take 50 Uni vers ne 3-14 mcg by ity of (SYNTHROID) 11:59: mouth [place] 50 mcg 28 every Medical tablet morning. Branch ALBUTEROL Yes 1{puff} Inhale 1 U nivers SULFATE HFA 3-14 Puff as ity o f INHALE 11:59: needed. [address] HYDROcodone Yes 1{tbl} Take 1 Un donaldo -acetaminop 3-14 tablet by ity of hen 10-325 11:59: [place] mg tablet 28 (three) Medical times [place] daily as needed. MAGNESIUM Yes 1{tbl} Take 1 Univ ers ORAL 3-14 tablet by ity of 11:59: mouth. [address] aspirin 81 Yes 81mg Take 81 mg U nivers mg EC 3-14 by mouth. ity of tablet 11:59: [address] estradioL Yes .5mg Take 0.5 Univ ers 0.5 mg 3-14 mg by ity of tablet 11:59: mouth. [address] esomeprazol Yes 40mg Take 40 mg Univers e 40 mg 3-14 by mouth. ity of capsule 11:59: [address] gabapentin Yes 600mg Take 600 Un donaldo ER 600 mg 3-14 mg by ity of tablet, 11:59: mouth. [place] [address] Medical release 24 Branch hr insulin Yes 85U inject 85 Unive rs degludec 3-14 Units ity of 100 unit/mL 11:59: under the [place] (3 mL) [facility] Branch semaglutide Yes Take by Uni vers (RYBELSUS) 3-14 mouth. ity of 7 mg Tab 11:59: [address] trazodone Yes Take by Unive rs HCl 3-14 mouth. ity of (TRAZODONE 11:59: [facility]) [address] [place] [address] FAMOTIDINE Yes Take by Univ ers ORAL 3-14 mouth. ity of 11:59: [address] linaclotide Yes Take by Uni vers (LINZESS 3-14 mouth. ity of ORAL) 11:59: [address] AMITRIPTYLI Yes 1 tab Unive rs NE 50 MG 3-14 every AM ity of ORAL TAB 11:59: [address] simvastatin Yes 40mg Take 40 mg Univers (ZOCOR) 40 3-14 by mouth ity o f mg tablet 11:59: at [place] [address] bedtime. Medical Branch levothyroxi Yes 50ug Take 50 Uni vers ne 3-14 mcg by ity of (SYNTHROID) 11:59: mouth [place] 50 mcg 28 every Medical tablet morning. Branch ALBUTEROL Yes 1{puff} Inhale 1 U nivers SULFATE HFA 3-14 Puff as ity o f INHALE 11:59: needed. [address] HYDROcodone Yes 1{tbl} Take 1 Un doanldo -acetaminop 3-14 tablet by ity of hen 10-325 11:59: [place] mg tablet 28 (three) Medical times [place] daily as needed. MAGNESIUM Yes 1{tbl} Take 1 Univ ers ORAL 3-14 tablet by ity of 11:59: mouth. [address] aspirin 81 Yes 81mg Take 81 mg U nivers mg EC 3-14 by mouth. ity of tablet 11:59: [address] estradioL Yes .5mg Take 0.5 Univ ers 0.5 mg 3-14 mg by ity of tablet 11:59: mouth. [address] esomeprazol Yes 40mg Take 40 mg Univers e 40 mg 3-14 by mouth. ity of capsule 11:59: [address] gabapentin Yes 600mg Take 600 Un donaldo ER 600 mg 3-14 mg by ity of tablet, 11:59: mouth. [place] [address] Medical release 24 Branch hr insulin Yes 85U inject 85 Unive rs degludec 3-14 Units ity of 100 unit/mL 11:59: under the [place] (3 mL) [facility] Medical Branch semaglutide Yes Take by Uni vers (RYBELSUS) 3-14 mouth. ity of 7 mg Tab 11:59: [address] trazodone Yes Take by Unive rs HCl 3-14 mouth. ity of (TRAZODONE 11:59: [place] ORAL) Medical Branch FAMOTIDINE Yes Take by Univ ers ORAL 3-14 mouth. ity of 11:59: [address] Branch linaclotide Yes Take by Uni vers (LINZESS 3-14 mouth. ity of ORAL) 11:59: [address] predniSONE 2020-09 Yes [id number] 60mg Take 3 U nivers 20 mg 2-31 tablets by ity of tablet 00:00: mouth [place] 00 every Medical morning. Branch benzonatate 2020-09 Yes [id number] 100mg Take 1 Univers 100 mg 2-31 capsule by ity of capsule 00:00: mouth 3 [place] 00 (three) Medical times Branch daily as needed for Cough. predniSONE 2020-09 Yes [id number] 60mg Take 3 U nivers 20 mg 2-31 tablets by ity of tablet 00:00: mouth [place] 00 every Medical morning. Branch benzonatate 2020-09 Yes [id number] 100mg Take 1 Univers 100 mg 2-31 capsule by ity of capsule 00:00: mouth 3 [place] 00 (three) Medical times Branch daily as needed for Cough. predniSONE 2020-09 Yes [id number] 60mg Take 3 U nivers 20 mg 2-31 tablets by ity of tablet 00:00: mouth [place] 00 every Medical morning. Branch benzonatate 2020-09 Yes [id number] 100mg Take 1 Univers 100 mg 2-31 [...] MORNING FOR 90 DAYS methocarbam 2020-09 Yes [id number] 500mg Take 1 Univers oL 500 mg 2-01 tablet by ity o f tablet 00:00: mouth 4 [place] 00 (four) Medical times Branch daily as needed for Pain (scale 4-6). methocarbam 2020-09 Yes [id number] 500mg Take 1 Univers oL 500 mg 2-01 tablet by ity o f tablet 00:00: mouth 4 [place] 00 (four) Medical times Branch daily as needed for Pain (scale 4-6). methocarbam 2020-09 Yes [id number] 500mg Take 1 Univers oL 500 mg [...] mg 0-27 ity of tablet 00:00: 00 [facility] Branch traZODone 2020-09 Yes Univers 100 mg 0-27 ity of tablet 00:00: 00 [facility] Branch traZODone 2020-09 Yes Univers 100 mg 0-27 ity of tablet 00:00: 00 Medical Branch bupivacaine 2020- No [id number] 1mL [facility] (Marcaine) 02-27 9102 Health 0.5 % 14:41: 14:41 injection 1 46 :00 mL triamcinolo 2020- No [id number] 80mg [facility] ne 02-27 9102 [facility] acetonide 14:41: 14:41 (Kenalog-40 46 :00 ) injection 80 mg triamcinolo 2020- No [id number] 80mg 80 mg, [place] ne 02-27 9102 [facility] acetonide 14:41: 14:41 cular, (Kenalog-40 46 :00 Once PRN ) injection Procedure, 80 mg Starting on Thu02/27/21 at 0941, For 1 dose bupivacaine 2020- No [id number] 1mL 1 mL, [place] (Marcaine) 02-27 9102 Injection, He alth 0.5 % 14:41: 14:41 Once PRN injection 1 46 :00 Procedure, mL Starting on Thu02/27/21 at 0941, For 1 dose sertraline 2020-0 Yes 50mg QD Take 50 mg U T (Zoloft) 50 6-21 by mouth 1 He alth MG tablet 00:00: (one) time 00 each day. amLODIPine 2020-0 Yes 5mg QD Take 5 mg UT (Norvasc) 5 6-21 by mouth 1 He alth MG tablet 00:00: (one) time 00 each day. simvastatin 2020-0 Yes 10mg QD Take 10 mg UT (Zocor) 10 6-21 by mouth 1 Hea lth MG tablet 00:00: (one) time 00 each day. amLODIPine 2020-0 Yes 5mg QD Take 5 mg UT (Norvasc) 5 6-21 by mouth 1 He alth MG tablet 00:00: (one) time 00 each day. sertraline 2020-0 Yes 50mg QD Take 50 mg U T (Zoloft) 50 6-21 by mouth 1 He alth MG tablet 00:00: (one) time 00 each day. simvastatin 2020-0 Yes 10mg QD Take 10 mg UT (Zocor) 10 6-21 by mouth 1 Hea lth MG tablet 00:00: (one) time 00 each day. sertraline 202-0 Yes 50mg QD Take 50 mg U T (Zoloft) 50 6-21 by mouth 1 He alth MG tablet 00:00: (one) time 00 each day. amLODIPine 2020-0 Yes 5mg QD Take 5 mg UT [...] 00:00: (one) time 00 each day. sertraline 1-0 Yes 50mg QD Take 50 mg U [...] 00:00: (one) time 00 each day. sertraline 1-0 Yes 50mg QD Take 50 mg U T (Zoloft) 50 6-21 by mouth 1 He alth MG tablet 00:00: (one) time 00 each day. amLODIPine 1-0 Yes 5mg Take 5 mg Un donaldo 5 mg tablet 6-21 by mouth. ity of 00:00: [address] SERTraline 1-0 Yes 50mg Take 50 mg U nivers 50 mg 6-21 by mouth. ity of tablet 00:00: [place] [facility] amLODIPine 1-0 Yes 5mg Take 5 mg Un donaldo 5 mg tablet 6-21 by mouth. ity of 00:00: [address] SERTraline 1-0 Yes 50mg Take 50 mg U nivers 50 mg 6-21 by mouth. ity of tablet 00:00: [address] amLODIPine 1-0 Yes 5mg Take 5 mg Un donaldo 5 mg tablet 6-21 by mouth. ity of 00:00: [place] [facility] SERTraline 1-0 Yes 50mg Take 50 mg U nivers 50 mg 6-21 by mouth. ity of tablet 00:00: [address] metFORMIN 2021-0 Yes 500mg QD Take [...] by ity of 24 hr 00:00: mouth. [place] tablet [address] [place] [address] metformin 2021-0 Yes 500mg Take 500 Uni vers ER 500 mg 6-03 mg by ity of 24 hr 00:00: mouth. [address] metformin 2021-0 Yes 500mg Take 500 Uni vers ER 500 mg 6-03 mg by ity of 24 hr 00:00: mouth. [place] tablet [address] [place] [address] Branch losartan-hy 2021-0 Yes [place] droCHLOROth 6-02 [...] 4-21 Health 200 UNIT/ML 00:00: injection 00 Tresiba 2020-0 Yes [facility] FlexTouch 4-21 Health [...] 2 tablet 00 (two) times a day. gabapentin 2020-0 Yes 1200mg Q.5D Take 1,200 [...] 4-21 Health 200 UNIT/ML 00:00: injection 00 Tresiba 2020-0 Yes [facility] FlexTouch 4-21 Health 200 UNIT/ML 00:00: injection 00 gabapentin 2021-0 Yes 1200mg Q.5D Take 1,200 [facility] (Neurontin) 4-21 mg by Health 600 MG 00:00: mouth 2 tablet 00 (two) times a day. Tresiba 1-0 Yes [facility] FlexTouch 4-21 Health 200 UNIT/ML 00:00: injection 00 gabapentin 1-0 Yes 1200mg Q.5D Take 1,200 [facility] (Neurontin) 4-21 mg by Health 600 MG 00:00: mouth 2 tablet 00 (two) times a day. gabapentin 2021-0 Yes 1200mg Q.5D Take 1,200 [facility] (Neurontin) 4-21 mg by Health 600 MG 00:00: mouth 2 tablet 00 (two) times a day. Trulance 3 2021-0 Yes 3mg Take 3 mg UT MG [...] 00:00: (two) 00 times a week. plecanatide 2021-0 Yes 3mg Take 3 mg U nivers (TRULANCE) 3-23 by mouth. ity of 3 mg Tab 00:00: [address] plecanatide 2021-0 Yes 3mg Take 3 mg U nivers (TRULANCE) 3-23 by mouth. ity of 3 mg Tab 00:00: [address] plecanatide 2021-0 Yes 3mg Take 3 mg U nivers (TRULANCE) 3-23 by mouth. ity of 3 mg Tab 00:00: [address] Aspirin 81 2020-0 Yes 81 mg = 1 Me moria MG Chewable 3-16 tab, PO, l Tablet 17:44: Daily, # [place] 00 90 tab, 0 Refill(s), Pharmacy: [facility][id number] Aspirin 81 2020-0 Yes 81 mg = 1 Me moria MG Chewable 3-16 tab, PO, l Tablet 17:44: Daily, # [place] 00 90 tab, 0 Refill(s), Pharmacy: [facility] #[id number] Esomeprazol 2019-0 No 40 mg, 1 Me moria e 3-16 cap, l 14:00: Route: PO, [place] 00 Drug form: ECCAP, Daily, Dosing Weight 79.091, kg, Start date: 11/21/19 9:00:00 CDT, Duration: 30 day, Stop date: 12/20/19 9:00:00 CDT Estradiol 2019-0 No Notes: Memori a 3-16 Hazardous l 14:00: Drug Group 2:Non-anti neoplastic Hazardous Drug -- Refer to safe handling procedure PPE [facility] Fluticasone 0 No Notes: Brennen oscar propionate 3-16 (Same as: l 0.05 14:00: Flonase) [place] MG/ACTUAT 00 Metered Dose Nasal [place] [Flonase] Hydrochloro 2019-0 No 1 tab, Brennen oscar thiazide 25 3-16 Route: PO, l MG / 14:00: Drug Form: [place] Losartan 00 TAB, Potassium Dosing 100 MG Oral Weight Tablet 79.091, kg, Daily, Start date: 11/21/19 9:00:00 CDT, Duration: 30 day, Stop date: 12/20/19 9:00:00 CDT pantoprazol 2019-0 No Notes: Brennen oscar e 3-16 Tablet l 14:00: should not [place] 00 be chewed or crushed. (Same as: Protonix) Trulance 3 2019-0 No Trulance 3 M emoria mg oral 3-16 mg oral l tablet 14:00: tablet, 3 Andrei n 00 mg, Route: PO, Daily, 11/21/19 9:00:00 CDT, Duration: 30 day, Stop date: 12/20/19 9:00:00 CDT Januvia No Notes: Memoria 3-16 Same as l 14:00: Januvia [place] 00 Insulin No Notes: Memoria Glargine 3-16 [...] Memoria 3-16 (Same as: l 14:00: Cozaar) Esomeprazol No 40 mg, 1 Me moria e 3-16 cap, l 14:00: Route: PO, [place] 00 Drug form: ECCAP, Daily, Dosing Weight [...] Flonase) [place] MG/ACTUAT 00 Metered Dose Nasal [place] [Flonase] Hydrochloro No 1 tab, Brennen oscar thiazide 25 3-16 Route: PO, l MG / 14:00: Drug Form: [place] Losartan 00 TAB, Potassium Dosing 100 MG Oral Weight Tablet 79.091, kg, Daily, Start date: 11/21/19 9:00:00 CDT, Duration: 30 day, Stop date: 12/20/19 9:00:00 CDT pantoprazol No Notes: Brennen oscar e 3-16 Tablet l 14:00: should not [place] 00 be chewed or crushed. (Same as: Protonix) Trulance 3 No Trulance 3 M emoria mg oral 3-16 mg oral l tablet 14:00: tablet, 3 Andrei n 00 mg, Route: PO, Daily, 11/21/19 9:00:00 CDT, Duration: 30 day, Stop date: 12/20/19 9:00:00 CDT Januvia No Notes: Memoria 3-16 Same as l 14:00: Januvia [place] 00 Insulin No Notes: Memoria Glargine 3-16 [...] a 3-16 Take 1 l 11:30: hour [place] 00 before or 2 hours after meal; Enteral feeds may interefere with the absorption of this medication . (Same as:Levothr oid) Thyroxine No Notes: Memori a 3-16 Take [...] temperatur e Expires in days from ____Date Insulin No Notes: Memoria Glargine 3-16 (Same as: l 100 UNT/ML 02:15: Lantus) Do H ermann Injectable 00 not hold Solution insulin [Lantus] without contacting prescriber WASTE: F/P - Black; E - Municipal Trash Bin "single patient use only" Stable for 28 days at room temperatur e Expires in days from ____Date Humalog No Notes: Memoria 3-16 (Same as: l 02:00: Humalog) [place] 00 Roll in palms of hands gently; Do not shake vigorously . WASTE: F/P - Black; E - Municipal Trash Bin Stable for 28 days at room temperatur e. Expires in days from ____Date montelukast No Notes: Brennen oscar 3-16 (Same l 02:00: as:Singula [place] 00 ir) Simvastatin No Notes: Brennen oscar 3-16 (Same as: l 02:00: Zocor) [place] 00 Humalog No Notes: Memoria 3-16 (Same as: l 02:00: Humalog) [place] 00 Roll in palms of hands gently; Do not shake vigorously . WASTE: F/P - Black; E - Municipal Trash Bin Stable for 28 days at room temperatur e. Expires in days from ____Date montelukast No Notes: Brennen oscar 3-16 (Same l 02:00: as:Singula [place] 00 ir) Simvastatin No Notes: Brennen oscar 3-16 (Same as: l 02:00: Zocor) [place] 00 Insulin, No 10 unit, Memor ia Aspart, 11-20 Route: l Human 01:39: SUB-Q, [place] 00 ONCE, Dosing Weight 79.091, kg, Priority: NOW, Start date: 11/20/19 20:39:00 CDT, Stop date: 11/20/19 20:39:00 CDT Insulin, No 10 unit, Memor ia Aspart, 3-16 Route: l Human 01:39: SUB-Q, [place] 00 ONCE, Dosing Weight 79.091, kg, Priority: NOW, Start date: 11/20/19 20:39:00 CDT, Stop date: 11/20/19 20:39:00 CDT Buspirone No Notes: Memori a 3-15 (Same As: l 22:00: BuSpar) [place] Amitiza No Notes: Memoria 3-15 Same as l 22:00: Amitiza [place] (Do Not Crush) Non Formulary Buspirone No Notes: Memori a 3-15 (Same As: l 22:00: BuSpar) [place] Amitiza No Notes: Memoria 3-15 Same as l 22:00: Amitiza [place] 00 (Do Not Crush) Non Formulary Acetaminoph No Notes: Do M emoria en 325 MG / 3-15 not exceed l Hydrocodone 18:53: 4gm/day of [place] Bitartrate 00 acetaminop 10 MG Oral hen. (Same Tablet as: [place] [[place] 325/10) 10325] Acetaminoph No Notes: Do M emoria en 325 MG / 3-15 not exceed l Hydrocodone 18:53: 4gm/day of [place] Bitartrate 00 acetaminop 10 MG Oral hen. (Same Tablet as: [place] [[place] 325/10) 10325] Albuterol No Notes: Memori a 0.833 MG/ML 3-15 (Same as: l / 18:49: Duoneb) [place] Ipratropium 00 [place] 0.167 MG/ML Inhalant Solution Albuterol No Notes: Memori a 0.833 MG/ML 3-15 (Same as: l / 18:49: Duoneb) [place] Ipratropium 00 [place] 0.167 MG/ML Inhalant Solution Tylenol No Notes: Do Memor ia 3-15 not exceed l 18:20: 4 gm/day. [place] 00 (Same as: Tylenol) Tylenol 2020-0 No Notes: Do Memor ia 3-15 not exceed l 18:20: 4 gm/day. [place] 00 (Same as: Tylenol) Labetalol 2020-0 No Notes: Memori a 3-15 (Same as: l 17:11: Normodyne, [place] 00 Trandate) Push over 2 minutes Give bolus over 2-3 minutes. Labetalol 2020-0 No Notes: Memori a 3-15 (Same as: l 17:11: Normodyne, [place] 00 Trandate) Push over 2 minutes Give bolus over 2-3 minutes. heparin 2020-0 No 5,000 Memoria 3-15 unit, l 14:23: Route: [place] 00 SUB-Q, Q8H-06, Dosing Weight 79.091, kg, Priority: STAT, Start date: 11/20/19 9:23:00 CDT, Duration: 30 day, Stop date: 12/20/19 6:00:00 CDT heparin 2020-0 No 5,000 Memoria 3-15 unit, l 14:23: Route: [place] 00 SUB-Q, Q8H-06, Dosing Weight 79.091, kg, Priority: STAT, Start date: 11/20/19 9:23:00 CDT, Duration: 30 day, Stop date: 12/20/19 6:00:00 CDT Lexapro 2020-0 No 10 mg, Memoria 3-15 Route: PO, l 14:15: Drug form: [place] 00 TAB, Daily, Dosing Weight 79.091, kg, Priority: STAT, Start date: 11/20/19 9:15:00 CDT, Duration: 30 day, Stop date: 12/20/19 9:00:00 CDT Lexapro 2020-0 No 10 mg, Memoria 3-15 Route: PO, l 14:15: Drug form: [place] 00 TAB, Daily, Dosing Weight 79.091, kg, Priority: STAT, Start date: 11/20/19 9:15:00 CDT, Duration: 30 day, Stop date: 12/20/19 9:00:00 CDT Furosemide 2020-0 No Notes: Memor ia 3-15 (Same as: l 14:00: Lasix) [place] 00 May cause GI upset. Give with food or milk. Losartan 2020-0 No Notes: Memoria 3-15 (Same as: l 14:00: Cozaar) [place] 00 Furosemide No Notes: Memor ia 3-15 (Same as: l 14:00: Lasix) May cause GI upset. Give with food or milk. Losartan No Notes: Memoria 3-15 (Same as: l 14:00: Cozaar) [place] 00 Humalog No Notes: Memoria 3-15 (Same as: l 08:52: Humalog) [place] 00 Roll in palms of hands gently; Do not shake vigorously . WASTE: F/P - Black; E - Municipal Trash Bin Stable for 28 days at room temperatur e. Expires in days from ____Date Dextrose No 50 mL, Memoria 50% in 11-19 Route: l Water IV 08:52: IVP, Start Her marmolejo date: 11/20/19 3:52:00 CDT, Duration: 30 day, Stop date: 12/20/19 3:51:00 CDT, PRN Blood Glucose Results, 0 glucagon No 1 mg, Memoria 11-19 Route: l 08:52: INJ, Drug form: PDR/INJ, PRN, PRN Blood Glucose Results, Start date: 11/20/19 3:52:00 CDT, Duration: 30 day, Stop date: 12/20/19 3:51:00 CDT, 0 Humalog No Notes: Memoria 3-15 (Same as: l 08:52: Humalog) [place] 00 Roll in palms of hands gently; Do not shake vigorously . WASTE: F/P - Black; E - Municipal Trash Bin Stable for 28 days at room temperatur e. Expires in days from ____Date Dextrose 0 No 50 mL, Memoria 50% in 315 Route: l Water IV 08:52: IVP, Start Her marmolejo 00 date: 11/20/19 3:52:00 CDT, Duration: 30 day, Stop date: 12/20/19 3:51:00 CDT, PRN Blood Glucose Results, 0 glucagon 2019-0 No 1 mg, Memoria 3-15 Route: l [...] temperatur e. Expires in days from ____Date Humalog No Notes: Memoria 3-15 (Same as: l 08:51: Humalog) [place] 00 Roll in palms of hands gently; Do not shake vigorously . WASTE: F/P - Black; E - Municipal Trash Bin Stable for 28 days at room temperatur e. Expires in days from ____Date Labetalol 2019-0 No Notes: Memori a 3-15 (Same as: l 06:25: Normodyne, [place] Trandate) Push over 2 minutes Give bolus over 2-3 minutes. Labetalol 2019-0 No Notes: Memori a 3-15 (Same as: l 06:25: Normodyne, [place] Trandate) Push over 2 minutes Give bolus over 2-3 minutes. Hydralazine 2019-0 No Notes: Brennen oscar 3-15 (Same as: l 03:35: Apresoline ) Push over 5 minutes Hydralazine 2019-0 No Notes: Brennen oscar 3-15 (Same as: l 03:35: Apresoline ) Push over 5 minutes Furosemide 2019-0 No Notes: Memor ia 3-14 (Same as: l 23:33: Lasix) [place] 00 Losartan 2019-0 No Notes: Memoria 3-14 (Same as: l 23:33: Cozaar) [place] 00 Furosemide 2020-0 No Notes: Memor ia 3-14 (Same as: l 23:33: Lasix) Losartan No Notes: Memoria 3-14 (Same as: l 23:33: Cozaar) [place] 00 POLYETHYLEN No Notes: Brennen oscar E GLYCOL 3-14 Dissolve l 3350 14:00: in 8 oz of [place] 00 water or juice. (Same as: Miralax) Aspirin No Notes: Memoria 3-14 Take with l 14:00: food. POLYETHYLEN No Notes: Brennen oscar E GLYCOL 3-14 Dissolve l 3350 14:00: in 8 oz of [place] 00 water or juice. (Same as: Miralax) Aspirin No Notes: Memoria 3-14 Take with l 14:00: food. phenol No Notes: Memoria 3-14 Chlorasept l 02:54: ic [place] (Same as: Chlorasept ic, Sore Throat [place]) WASTE: F/P - Black; E - Municipal Trash Bin phenol No Notes: Memoria 3-14 Chlorasept l 02:54: ic [place] (Same as: Chlorasept ic, Sore Throat [place]) WASTE: F/P - Black; E - Municipal Trash Bin Famotidine No Notes: Memor ia 3-14 (Same as: l 02:00: Pepcid) [place] 00 Can be dilute in 5-10cc NS IVP: Slow IV push over at least 2 minutes. Saline No Notes: Memoria Flush 0.9% 3-14 (Same as: l 02:00: BD [place] 00 Posiflush) gabapentin No Notes: Memor ia 3-14 (Same as: l 02:00: Neurontin) Famotidine No Notes: Memor ia 3-14 (Same as: l 02:00: Pepcid) [place] 00 Can be dilute in 5-10cc NS IVP: Slow IV push over at least 2 minutes. Saline No Notes: Memoria Flush 0.9% 3-14 (Same as: l 02:00: BD [place] 00 Posiflush) gabapentin 2020-0 No Notes: Memor ia 14 (Same as: l 02:00: Neurontin) [place] glucagon 2019-0 No 1 mg, Memoria 3-14 Route: l 01:54: INJ, Drug [place] 00 form: PDR/INJ, PRN, PRN Blood Glucose Results, Start date: 11/18/19 20:54:00 CDT, Duration: 30 day, Stop date: 12/18/19 20:53:00 CDT, 0 glucagon 2019-0 No 1 mg, Memoria 11-18 Route: l 01:54: INJ, Drug [place] form: PDR/INJ, PRN, PRN Blood Glucose Results, Start date: 11/18/19 20:54:00 CDT, Duration: 30 day, Stop date: 12/18/19 20:53:00 CDT, 0 Humalog 2019-0 No Notes: Memoria 11-18 (Same as: l :53: Humalog) [place] Roll in palms of hands gently; Do not shake vigorously . WASTE: F/P - Black; E - Municipal Trash Bin Stable for 28 days at room temperatur e. Expires in days from ____Date Dextrose 0 No 50 mL, Memoria 50% in 11-18 Route: l Water IV 01:53: IVP, Start date: 11/18/19 20:53:00 CDT, Duration: 30 day, Stop date: 12/18/19 20:52:00 CDT, PRN Blood Glucose Results, 0 Humalog 2019-0 No Notes: Memoria 11-18 (Same as: l :53: Humalog) [place] Roll in palms of hands gently; Do not shake vigorously . WASTE: F/P - Black; E - Municipal Trash Bin Stable for 28 days at room temperatur e. Expires in days from ____Date Dextrose 2020-0 No 50 mL, Memoria 50% in 3-14 Route: l Water IV 01:53: IVP, Start date: 11/18/19 20:53:00 CDT, Duration: 30 day, Stop date: 12/18/19 20:52:00 CDT, PRN Blood Glucose Results, 0 Humalog 2020-0 No Notes: Memoria 3-14 (Same as: l 01:52: Humalog) [place] 00 Roll in palms of hands gently; Do not shake vigorously . WASTE: F/P - Black; E - Municipal Trash Bin Stable for 28 days at room temperatur e. Expires in days from ____Date Humalog 2020-0 No Notes: Memoria 3-14 (Same as: l 01:52: Humalog) [place] 00 Roll in palms of hands gently; Do not shake vigorously . WASTE: F/P - Black; E - Municipal Trash Bin Stable for 28 days at room temperatur e. Expires in days from ____Date Lasix 2020-0 No Notes: Memoria 3-13 (Same as: l 22:49: Lasix) [place] 00 MEDICATION WASTE Product Size: 40 mg Product Wasted: ___ mg Losartan 2020-0 No Notes: Memoria 3-13 (Same as: l 22:49: Cozaar) [place] 00 Lasix 2020-0 No Notes: Memoria 3-13 (Same as: l 22:49: Lasix) [place] 00 MEDICATION WASTE Product Size: 40 mg Product Wasted: ___ mg Losartan 2020-0 No Notes: Memoria 3-13 (Same as: l 22:49: Cozaar) [place] 00 ceFAZolin + 2020-0 No Notes: Brennen oscar sterile 3-13 (Same As: l water 20 mL 21:00: Ancef, Herm mary 00 Kefzol) MEDICATION WASTE Product Size: 1000 mg Product Wasted: ___ mg ceFAZolin + 2020-0 No Notes: Brennen oscar sterile 3-13 (Same As: l water 20 mL 21:00: Ancef, Herm mary 00 Kefzol) MEDICATION WASTE Product Size: 1000 mg Product Wasted: ___ mg Zofran 2020-0 No Notes: Memoria 3-13 (Same as: l 19:19: Zofran) [place] 00 MEDICATION WASTE Product Size: 4 mg Product Wasted: ___ mg Zofran 2019- No Notes: Memoria 3-13 (Same as: l 19:19: Zofran) [place] MEDICATION WASTE Product Size: 4 mg Product Wasted: ___ mg Albuterol 2020- No Notes: Memori a 0.833 MG/ML 3-13 (Same as: l / :: Duoneb) [place] Ipratropium 00 [place] 0.167 MG/ML Inhalant Solution Saline No Notes: Memoria Flush 0.9% 3-13 (Same as: l 17:: BD [place] 00 Posiflush) Potassium No Notes: Memori a Chloride 3-13 (Same as: l :: KCL) Infuse no faster than 10 mEq/hr if given peripheral ly. sodium No Notes: Memoria phosphate 3-13 Infuse l 17:26: over 4 [place] hour. Do not infuse phosphorou s concurrent ly in the same line as TPN or IVF that contains calcium. For double lumen central lines, phosphorou s may be infused in a separate lumen from TPN. potassium No Notes: Memori a phosphate 3-13 (Same as: l :: K [place] 00 Phosphate. ) Do not infuse phosphorou [...] Memori a Sulfate 3-13 WASTE: F/P l 17:: - Sink; E - Municipal Trash Bin Magnesium No Notes: Memori a Oxide 3-13 (Same as: l 17:26: Mag-Ox [place] 00 400) Magnesium oxide [id number] g elemental magnesium Dose=____m g magnesium oxide (___mg elemental magnesium) Calcium 2019-0 No Notes: Memoria Gluconate 3-13 WASTE: F/P l 17:26: - Sink; E [place] 00 - Municipal Trash Bin Calcium 2020-0 No Notes: Memoria Carbonate 3-13 (Same As: l 500 MG 17:: Tums) [place] Chewable 00 Calcium Tablet Carbonate 500 mg = 200 mg elemental calcium Dose = mg calcium carbonate ( mg elemental calcium) Albuterol 2019- No Notes: Memori a 0.833 MG/ML 3-13 (Same as: l / :: Duoneb) [place] Ipratropium 00 [place] 0.167 MG/ML Inhalant Solution Saline 2019- No Notes: Memoria Flush 0.9% 3-13 (Same as: l 17:: BD [place] 00 Posiflush) Potassium 2019-0 No Notes: Memori a Chloride 3-13 (Same as: l :: KCL) [place] 00 Infuse no faster than 10 mEq/hr if given peripheral ly. sodium 2019-0 No Notes: Memoria phosphate 3-13 Infuse l 17:26: over 4 [place] 00 hour. Do not infuse phosphorou s concurrent ly in the same line as TPN or IVF that contains calcium. For double lumen central lines, phosphorou s may be infused in a separate lumen from TPN. potassium 2019-0 No Notes: Memori a phosphate 3-13 (Same as: l :: K [place] 00 Phosphate. ) Do not infuse phosphorou s concurrent ly in the same line as TPN or IVF that contains calcium. For double lumen central lines, phosphorou s may be infused in a separate lumen from TPN. 1 mMol phoshate has 1.47 mEq potassium Infuse over 4 hours potassium 2019-0 No Notes: Memori a phosphate-s 3-13 (Same as: l odium 17:26: Phos-NaK) [place] phosphate 00 Each 1.5 250 mg-280 gm pkt has mg-160 mg 250mg oral powder phosphorou for s. Mix reconstitut w/2.5oz ion water and stir. Magnesium 2020-0 No Notes: Memori a Sulfate 3- WASTE: F/P l 17:26: - Sink; E [place] - Municipal Trash Bin Magnesium No Notes: Memori a Oxide 3-13 (Same as: l 17:26: Mag-Ox [place] 00 400) Magnesium oxide [id number] g elemental magnesium Dose=____m g magnesium oxide (___mg elemental magnesium) Calcium No Notes: Memoria Gluconate 3-13 WASTE: F/P l 17:26: - Sink; E [place] - Municipal Trash Bin Calcium No Notes: Memoria Carbonate 3-13 (Same As: l 500 MG 17:26: Tums) [place] Chewable 00 Calcium Tablet Carbonate 500 mg = 200 mg elemental calcium Dose = mg calcium carbonate ( mg elemental calcium) Acetaminoph No Notes: Do M emoria en 3-13 not exceed l 17:00: 4 gm/day. [place] 00 (Same as: Tylenol) Acetaminoph No Notes: Do M emoria en 3-13 not exceed l 17:00: 4 gm/day. [place] 00 (Same as: Tylenol) Tramadol No Notes: Not Mem oria 3-13 to exceed l 16:39: 400mg/day. [place] 00 (Same As: Ultram) gabapentin No Notes: Memor ia 3-13 (Same as: l 16:39: Neurontin) Oxycodone No Notes: Memori a Hydrochlori 3-13 (Same as: l de 5 MG 16:39: Roxicodone Herm mary Oral Tablet ) gabapentin No Notes: Memor ia 3-13 (Same as: l 16:39: Neurontin) Oxycodone No Notes: Memori a Hydrochlori 3-13 (Same as: l de 5 MG 16:39: Roxicodone Herm mary Oral Tablet 00 ) Tramadol No Notes: Not Mem oria 3-13 to exceed l 16:39: 400mg/day. [place] 00 (Same As: Ultram) niCARdipine No Route: IV, Memoria (ANES) 3-13 Drug form: l 16:24: INJ, ONCE, Stop date: 11/18/19 11:24:00 CDT Diltiazem 2020-0 No 10 mg, Memori a 3-13 Route: IV, l 16:24: ONCE, Dosing Weight 79.091, kg, Start date: 11/18/19 11:24:00 CDT, Stop date: 11/18/19 11:24:00 CDT Hydromorpho 2020-0 No 0.5 mg, Mem oria ne 3-13 Route: l 16:24: IVP, ONCE, Dosing Weight 79.091, kg, Priority: STAT, Start date: 11/18/19 11:24:00 CDT, Stop date: 11/18/19 11:24:00 CDT niCARdipine 2020-0 No Route: IV, Memoria (ANES) 3- Drug form: l 16:24: INJ, ONCE, Stop date: 11/18/19 11:24:00 CDT Diltiazem 2020-0 No 10 mg, Memori a 3-13 Route: IV, l 16:24: ONCE, Dosing Weight 79.091, kg, Start date: 11/18/19 11:24:00 CDT, Stop date: 11/18/19 11:24:00 CDT Hydromorpho 2020-0 No 0.5 mg, Mem oria ne 3-13 Route: l 16:24: IVP, ONCE, Dosing Weight 79.091, kg, Priority: STAT, Start date: 11/18/19 11:24:00 CDT, Stop date: 11/18/19 11:24:00 CDT Nicardipine 2020-0 No Notes: Brennen oscar 3-13 Same as: l 16:20: Cardene Concentrat ion: (0.2 mg /1 ml ) Nicardipine 2020-0 No Notes: Brennen oscar 3-13 Same as: l 16:20: Cardene Concentrat ion: (0.2 mg /1 ml ) ondansetron 2020-0 No Route: IV, Memoria (ANES) 3-13 Drug form: l 16:13: INJ, ONCE, Stop date: 11/18/19 11:13:00 CDT ondansetron 2020-0 No Route: IV, Memoria (ANES) 3-13 Drug form: l 16:13: INJ, ONCE, [place] 00 Stop date: 11/18/19 11:13:00 CDT Nicardipine 2020-0 No Notes: Brennen oscar 3-13 Same as: l 16:12: Cardene Concentrat ion: (0.2 mg /1 ml ) Nicardipine 2020-0 No Notes: Brennen oscar 3-13 Same as: l 16:12: Cardene Concentrat ion: (0.2 mg /1 ml ) Acetaminoph 2020-0 No Notes: Brennen oscar en 3-13 Infuse l 16:09: over 15 [place] 00 minutes Do not exceed 4gm/day of acetaminop hen MEDICATION WASTE Product Size: 1000 mg Product Wasted: ___ mg Acetaminoph 2020-0 No Notes: Brennen oscar en 3-13 Infuse l 16:09: over 15 [place] 00 minutes Do not exceed 4gm/day of acetaminop hen MEDICATION WASTE Product Size: 1000 mg Product Wasted: ___ mg calcium 2020-0 No Route: IV, Brennen oscar chloride 3-13 Drug form: l (ANES) 15:52: INJ, ONCE, Keisha Stop date: 11/18/19 10:52:00 CDT calcium 2020-0 No Route: IV, Brennen oscar chloride 3-13 Drug form: l (ANES) 15:52: INJ, ONCE, Keisha Stop date: 11/18/19 10:52:00 CDT protamine 2020-0 No Route: IV, Me moria (ANES) 10 3-13 Drug form: l mg 15:17: INJ, Start date: 11/18/19 10:17:00 CDT, Stop date: 11/18/19 11:17:00 CDT protamine 2020-0 No Route: IV, Me moria (ANES) 10 3-13 Drug form: l mg 15:17: INJ, Start date: 11/18/19 10:17:00 CDT, Stop date: 11/18/19 11:17:00 CDT heparin 2020-0 No Route: IV, Brennen oscar (ANES) 3-13 Drug form: l 14:46: INJ, ONCE, Stop date: 11/18/19 9:46:00 CDT heparin 2020-0 No Route: IV, Brennen oscar (ANES) 3-13 Drug form: l 14:46: INJ, ONCE, Stop date: 11/18/19 9:46:00 CDT ePHEDrine 2020-0 No Route: IV, Me moria (ANES) 3-13 Drug form: l 14:20: INJ, ONCE, Stop date: 11/18/19 9:20:00 CDT ePHEDrine 2020-0 No Route: IV, Me moria (ANES) 3-13 Drug form: l 14:20: INJ, ONCE, Stop date: 11/18/19 9:20:00 CDT phenylephri 2020-0 No Route: IV, Memoria ne (ANES) 3-13 Drug form: l 14:15: INJ, ONCE, Stop date: 11/18/19 9:15:00 CDT phenylephri 2020-0 No Route: IV, Memoria ne (ANES) 3-13 Drug form: l 14:15: INJ, ONCE, Stop date: 11/18/19 9:15:00 CDT fentaNYL 2020-0 No Route: IV, Mem oria (ANES) [...] INJ, ONCE, Stop date: 11/18/19 9:05:00 CDT fentaNYL 2020-0 No Route: IV, Mem oria (ANES) [...] mg CDT, Stop date: 11/18/19 9:27:00 CDT sodium 2019-0 No Route: IV, Memor [...] 7:45:00 CDT, Stop date: 11/18/19 8:45:00 CDT Isolyte S 2020-0 No Route: IV, Me moria PH 7.4 3-13 Total l (ANES) 1000 12:45: Volume: Her marmolejo mL 00 1,000, Start date: 11/18/19 7:45:00 CDT, Stop date: 11/18/19 8:45:00 CDT Metoprolol 2020-0 No Notes: Memor ia 3-13 (Same as: l 11:36: Lopressor) [place] 00 Push over 2 minutes Sodium 2020-0 No 250 mL, Memoria Chloride 3-13 Rate: To l 0.9% 11:36: prime line [place] (titrate) 00 and flush 250 mL remaining blood products., Dosing Weight 81.023, kg, Route: IV, Total Volume: 250, Start Date: 11/18/19 6:36:00 CDT, Duration: 1 day, Stop date: 11/19/19 6:35:00 CDT, Replace Every: 24 hr, 0 Metoprolol 2020-0 No Notes: Memor ia 3-13 (Same as: l 11:36: Lopressor) [place] 00 Push over 2 minutes Sodium 2020-0 [...] oscar 3-09 unknown l 21:02: dose, 0 [place] 00 Refill(s) Januvia 2020-0 Yes PO, Daily, Brennen oscar [...] 15:02:00 CDT, Replace Every: 24 hr, 0 Sodium 2020-0 No 250 mL, Memoria Chloride [...] INHALATION l / 18:03: , Q6H, PRN [place] Ipratropium 00 Wheezing, [place] # 30 ea, 1 0.167 MG/ML Refill(s) Inhalant Solution Fluticasone 2020-0 Yes NASAL, Brennen oscar propionate 3-09 Daily, 0 l 0.05 18:03: Refill(s) Solomon MG/ACTUAT 00 Metered Dose Nasal [place] [Flonase] meloxicam 2020-0 Yes 15 mg = 1 Mem oria 15 mg oral 3-09 tab, PO, l tablet 18:03: Daily, # [place] 00 30 tab, 0 Refill(s) busPIRone 2020-0 Yes 10 mg = 1 Mem oria 10 mg oral 3-09 tab, PO, l tablet 18:03: BID, 0 [place] 00 Refill(s) Esomeprazol 2020-0 Yes 40 mg [...] tab, PO, l oral 18:03: Daily, # [place] enteric 00 30 tab, 1 coated Refill(s) tablet montelukast 2020-0 Yes 10 mg = 1 M emoria 10 mg oral 3-09 tab, PO, l tablet 18:03: Bedtime, # Keisha nn 00 30 tab, 0 Refill(s) plecanatide 2020-0 Yes 3 mg = 1 Me moria 3 MG Oral 3-09 tab, PO, l Tablet 18:03: Daily, 0 [place] [Trulance] 00 Refill(s) Hydrochloro 2020-0 Yes 1 tab, PO, Memoria thiazide 25 3-09 Daily, # l MG / 18:03: 30 tab, 0 [place] Losartan 00 Refill(s) Potassium 100 MG Oral Tablet Albuterol 2020-0 Yes 3 mL, Memoria 0.833 MG/ML 3- INHALATION l / 18:03: , Q6H, PRN [place] Ipratropium 00 Wheezing, [place] # 30 ea, 1 0.167 MG/ML Refill(s) Inhalant Solution Fluticasone 2020-0 Yes NASAL, Brennen oscar propionate 3-09 Daily, 0 l 0.05 18:03: Refill(s) Solomon MG/ACTUAT 00 Metered Dose Nasal [place] [Flonase] meloxicam 2020-0 Yes 15 mg = 1 Mem oria 15 mg oral 3-09 tab, PO, l tablet 18:03: Daily, # Solomon 00 30 tab, 0 Refill(s) busPIRone 2020-0 Yes 10 mg = 1 Mem oria 10 mg oral 3-09 tab, PO, l tablet 18:03: BID, 0 [place] 00 Refill(s) Esomeprazol 2020-0 Yes 40 mg [...] microgram l Oral 18:03: = 1 cap, [place] Capsule 00 PO, BID, 0 [Amitiza] Refill(s) magnesium 2020-0 No 400 mg = 1 Me moria oxide 400 3-09 tab, PO, l mg oral 18:03: Daily, # Andrei n tablet 00 30 tab, 1 Refill(s) pantoprazol 2020-0 Yes 40 mg = 1 M emoria e 40 mg 3-09 tab, PO, l oral 18:03: Daily, # [place] enteric 00 30 tab, 1 coated Refill(s) tablet montelukast 2019-0 Yes 10 mg = 1 M emoria 10 mg oral 3-09 tab, PO, l tablet 18:03: Bedtime, # Keisha nn 00 30 tab, 0 Refill(s) plecanatide 2019-0 Yes 3 mg = 1 Me moria 3 MG Oral 3-09 tab, PO, l Tablet 18:03: Daily, 0 Solomon [Trulance] 00 Refill(s) HYDROcodone 2017-09 Yes 1{tbl} Q.[id number] Take 1 Methodi -acetaminop 09-[id number] hen (NORCO) 21:45: 3D mouth 3 Hos leonardo 7.5-325 mg 51 (three) l per tablet times a day. methocarbam 2017-09 Yes 750mg Q.[id number] Take 750 Methodi ol -[id number] (ROBAXIN) 21:45: 3D mouth [...] l Pure Magnesium albuterol 2017-09 Yes 1{puff} Q.03884977 Inhale 1 Methodi (PROAIR 1-[id number] HFA,PROVENT 21:45: 3D (three) [...] capsule 51 l HYDROcodone 2017-09 Yes 1{tbl} Q.[id number] Take 1 Methodi -acetaminop 09-[id number] hen (NORCO) 15:45: 3D mouth 3 Hos leonardo 7.5-325 mg 51 (three) l per tablet times a day. methocarbam 2017-09 Yes 750mg Q.[id number] Take 750 Methodi ol -[id number] (ROBAXIN) 15:45: 3D mouth 3 Hospi ta 500 MG 51 (three) l tablet times a day. Takes 500 mg 1.5 TAB. (750 mg) gabapentin 2017-09 Yes 600mg QD Take 600 Me thodi (GRALISE) -[address] 600 mg 15:45: mouth Hospita tablet 51 daily. l extended release 24 hr montelukast 2017-09 Yes 10mg QD Take 10 mg Methodi (SINGULAIR) [address] 10 mg 15:45: daily. [...] l Pure Magnesium albuterol 2017-09 Yes 1{puff} Q.[id number] Inhale 1 Methodi (PROAIR 1-[id number] HFA,PROVENT 15:45: 3D (three) [...] capsule 51 l HYDROcodone 2017-09 Yes 1{tbl} Q.[id number] Take 1 Methodi -acetaminop [id number] hen (NORCO) 15:45: 3D mouth 3 Hos leonardo 7.5-325 mg 51 (three) l per tablet times a day. methocarbam 2017-09 Yes 750mg Q.[id number] Take 750 Methodi ol [id number] (ROBAXIN) 15:45: 3D mouth [...] (ECOTRIN) -[address] 81 MG 15:45: daily. Hospita enteric 51 l coated tablet MAGNESIUM 2017-09 Yes 1{tbl} QD Take 1 Meth bharati ORAL 1-[address] 15:45: mouth Hospita 51 daily. l Pure Magnesium albuterol 2017-09 Yes 1{puff} Q.72250081 Inhale 1 Methodi (PROAIR -[id number] HFA,PROVENT 15:45: 3D (three) [...] capsule 51 l HYDROcodone 2017-09 Yes 1{tbl} Q.[id number] Take 1 Methodi -acetaminop 1-[id number] hen (NORCO) 15:45: 3D mouth 3 Hos leonardo 7.5-325 mg 51 (three) l per tablet times a day. methocarbam 2017-09 Yes 750mg Q.[id number] Take 750 Methodi ol 1-[id number] (ROBAXIN) 15:45: 3D mouth [...] l Pure Magnesium albuterol 2017-09 Yes 1{puff} Q.64306915 Inhale 1 Methodi (PROAIR -[id number] HFA,PROVENT 15:45: 3D (three) [...] capsule 51 l HYDROcodone 2017-09 Yes 1{tbl} Q.[id number] Take 1 Methodi -acetaminop -[id number] hen (NORCO) 15:45: 3D mouth 3 Hos leonardo 7.5-325 mg 51 (three) l per tablet times a day. methocarbam 2017-09 Yes 750mg Q.[id number] Take 750 Methodi ol 1-[id number] (ROBAXIN) 15:45: 3D mouth [...] l Pure Magnesium albuterol 2017-09 Yes 1{puff} Q.[id number] Inhale 1 Methodi (PROAIR -[id number] HFA,PROVENT 15:45: 3D (three) Hos leonardo [place] 51 times a l HFA,VENTOLI day as N HFA) 90 needed for mcg/actuati wheezing on inhaler or shortness of breath. meloxicam 2017-09 Yes 15mg QD Take 15 mg Me thodi (MOBIC) [address] mg tablet 15:45: daily. [...] 3 00 (three) Medical times Branch daily. BusPIRone BusPIRone Yes Tawana 1 tablet Common HCl HCl [facility] Immunizations Ordered Immunization Filled Immunization Date Status Commen ts Source Name Name SARS-COV-2 COVID-19 2021-06-21 Completed Unive rsity of PFIZER VACCINE 00:00:00 [facility] SARS-COV-2 COVID-19 2021-06-21 Completed Unive rsity of PFIZER VACCINE 00:00:00 [facility] SARS-COV-2 COVID-19 2021-06-21 Completed Unive rsity of PFIZER VACCINE 00:00:00 [facility] SARS-COV-2 COVID-19 2021-05-31 Completed Unive rsity of PFIZER VACCINE 00:00:00 [facility] SARS-COV-2 COVID-19 2021-05-31 Completed Unive rsity of PFIZER VACCINE 00:00:00 [facility] SARS-COV-2 COVID-19 2021-05-31 Completed Unive rsity of PFIZER VACCINE 00:00:00 [facility] Sandy Sars-cov-2 2020-11-15 [facility] [...] Health quadrivalent, 00:00:00 injectable, preservative free Influenza Virus 2020-06-25 Completed Universit y of Vaccine Recomb Quad 00:00:00 [place] [facility], Preserv and ABX Branc h Free 18-64 YRS Influenza Virus 2020-06-25 Completed Universit y of Vaccine Recomb Quad 00:00:00 [place] [facility], Preserv and ABX Branc h Free 18-64 YRS Influenza Virus 2020-06-25 Completed Universit y of Vaccine Recomb Quad 00:00:00 [place] [facility], Preserv and ABX Branc h Free 18-64 YRS Influenza, High Dose 2020-05-10 [facility]pleted [facility] [...] 2020-05-10 [facility] Seasonal [facility]:00 Influenza High Dose 2020-05-10 Completed Unive rsity of Quad 00:00:00 [facility] Influenza High Dose 2020-05-10 Completed Unive rsity of 00:00:00 [facility] Influenza High Dose 2020-05-10 Completed Unive rsity of Quad 00:00:00 [facility] Influenza High Dose 2020-05-10 Completed Unive rsity of 00:00:00 [facility] Influenza High Dose 2020-05-10 Completed Unive rsity of Quad 00:00:00 [facility] Influenza High Dose 2020-05-10 Completed Unive rsity of 00:00:00 [facility] Zoster, Recombinant 2019-08-20 [facility] [...] Vaccine 2019-08-20 Completed University of Recombinant 00:00:00 [facility] Zoster Vaccine 2019-08-20 Completed University of Recombinant 00:00:00 [facility] Zoster Vaccine 2019-08-20 Completed University of Recombinant 00:00:00 [facility] MMR 2019-04-30 [facility] 00:00:00 MMR 2019-04-30 [facility] 00:00:00 MMR 2019-04-30 [facility]pleted [facility] 00:00:00 MMR 2019-04-30 [facility]pleted [facility] 00:00:00 MMR 2019-04-30 [facility]pleted [facility] 00:00:00 MMR 2019-04-30 [facility] 00:00:00 MMR 2019-04-30 [facility] 00:00:00 MMR 2019-04-30 Completed University of 00:00:00 [facility] MMR 2019-04-30 Completed University of 00:00:00 [facility] MMR 2019-04-30 Completed University of 00:00:00 [facility] MMR 2019-04-30 [facility] 00:[facility]:00 Zoster, Recombinant 2019 [facility] 00:[facility]:00 Zoster, Recombinant 2019 [facility] 00[facility]:00 Zoster, Recombinant 2019 [facility]pleted [facility] 00:00:00 Zoster, Recombinant 2019 [facility] 00:00:00 Zoster, Recombinant 2019 [facility]pleted [facility] 00:00:00 Zoster, Recombinant 2019 [facility]pleted [facility] 00[facility]00:00 Zoster Vaccine 2019 Completed University of Recombinant 00:00:00 [facility] Zoster Vaccine 2019 Completed University of Recombinant 00:00:00 [facility] Zoster Vaccine 2019 Completed University of Recombinant 00:00:00 [facility] Zoster, Recombinant 2019 [facility]pleted [facility] [...] 2009-08-27 Completed Universit y of Vaccine 00:00:00 [facility] Influenza Virus 2009-08-27 Completed Universit y of Vaccine 00:00:00 [facility] Influenza Virus 2009-08-27 Completed Universit y of Vaccine 00:00:00 [facility] Influenza, 2009-08-27 [facility] Unspecified 00:00:00 Influenza, 2009-08-27 [facility] Unspecified 00:00:00 Vital Signs Vital Name Observation Time Observation Value Comments Source Systolic blood 2022-05-06 15:23:00 156 mm[Hg] Univer sity of pressure [facility] Diastolic blood 2022-05-06 15:23:00 72 mm[Hg] Unive rsity of [facility] Heart rate 2022-05-06 15:23:00 72 /min [facility] Body temperature 2022-05-06 15:23:[address] [facility] Body height 2022-05-06 15:23:00 162.6 cm [facility] Body weight 2022-05-06 15:23:00 89.359 kg [facility] BMI 2022-05-06 15:23:00 33.81 kg/m2 [facility] Systolic blood 2021-09-11 20:47:00 139 mm[Hg] [...] Healt h Heart Rate 2019-11-21 15:32:00 [facility] [place] Respitory Rate 2019-11-21 15:32:00 Memori al [place] Systolic (mm Hg) 2019-11-21 15:32:00 Brennen rial [place] Diastolic (mm Hg) 2019-11-21 15:32:00 Mem orial [place] Heart Rate 2019-11-21 12:57:00 [facility] [place] Respitory Rate 2019-11-21 12:57:00 Memori al [place] Systolic (mm Hg) 2019-11-21 12:57:00 Brennen rial [place] Diastolic (mm Hg) 2019-11-21 12:57:00 Mem orial [place] Heart Rate 2019-11-21 08:37:00 [facility] [place] Respitory Rate 2019-11-21 08:37:00 Memori al [place] Systolic (mm Hg) 2019-11-21 08:37:00 Brennen rial [place] Diastolic (mm Hg) 2019-11-21 08:37:00 Mem orial [place] Temperature Oral (F) 2019-11-18 12:00:00 98.3 F [facility] [place] Weight 2019-11-18 11:45:00 [facility] BMI Calculated 2019-11-18 11:45:00 Memori al [place] Height 2019-11-14 19:59:00 162.56 cm [facility] Systolic (mm Hg) 2019-11-14 17:59:00 Brennen rial [place] Diastolic (mm Hg) 2019-11-14 17:59:00 Mem orial Solomon Heart Rate 2019-11-14 17:59:00 [facility] [place] Height 2019-11-14 17:59:00 162.56 cm [facility] [place] Weight 2019-11-14 17:59:00 [facility] BMI Calculated 2019-11-14 17:59:00 Liliya carney [place] Procedures Procedure Date / Time Performing Clinician Source Performed XR LUMBAR SPINE 2 VW 2022-05-06 15:32:47 Armond Montoya [facility] Branch REFERRAL- 2022-04-25 05:01:00 Doctor Unassigned, [facility] REQUEST/RESPONSE [place] [facility] MRI LUMBAR SPINE WO 2021-03-19 13:02:57 [facility] CONTRAST [place] ARTHROCENTESIS 2021-02-27 14:41:46 Josh [facility] ASPIR&/INJ MAJOR JT/BURSA W/O US XR LUMBAR SPINE AP 2020-11-13 14:56:47 Royce Rivers [facility] LATERAL FLEXION AND EXTENSION Knee [facility] replacement<sup>1</sup> Gallbladder operation [facility] Rotator cuff repair [facility] Lumbar laminectomy and [facility] excision of intradural spinal lesion Hysterectomy [facility] Appendectomy [facility] Cataract extraction [facility] Plan of Care Planned Activity Planned Date Details Comments Source Future Scheduled 2022-05-29 HEPATITIS B VACCINES Met [facility] Test 07:48:01 (1 of 3 - 3-dose series) [code = HEPATITIS B VACCINES (1 of 3 - 3-dose series)] Future Scheduled 2022-05-29 COVID-19 VACCINE (#1) [facility] Test 07:48:01 [code = COVID-19 VACCINE (#1)] Future Scheduled 2022-05-29 Hepatitis C screening [facility] Test 07:48:01 (procedure) [code = 421897970] Future Scheduled 2022-05-29 Screening for [facility] Test 07:48:01 malignant neoplasm of cervix (procedure) [code = 951714492] Future Scheduled 2022-05-29 BREAST CANCER [facility] Test 07:48:01 SCREENING [code = BREAST CANCER SCREENING] Future Scheduled 2022-05-29 COLONOSCOPY SCREENING [facility] Test 07:48:01 [code = COLONOSCOPY SCREENING] Future Scheduled 2022-05-29 INFLUENZA VACCINE Method [facility] Test 07:48:01 [code = INFLUENZA VACCINE] Future Scheduled 2022-05-06 HEPATITIS B VACCINES Met [facility] Test 10:13:08 (1 of 3 - 3-dose series) [code = HEPATITIS B VACCINES (1 of 3 - 3-dose series)] Future Scheduled 2022-05-06 COVID-19 VACCINE (#1) Me [facility] Test 10:13:08 [code = COVID-19 VACCINE (#1)] Future Scheduled 2022-05-06 Hepatitis C screening [facility] Test 10:13:08 (procedure) [code = 205277765] Future Scheduled 2022-05-06 Screening for [facility] Test 10:13:08 malignant neoplasm of cervix (procedure) [code = 160213228] Future Scheduled 2022-05-06 BREAST CANCER [facility] Test 10:13:08 SCREENING [code = BREAST CANCER SCREENING] Future Scheduled 2022-05-06 COLONOSCOPY SCREENING [facility] Test 10:13:08 [code = COLONOSCOPY SCREENING] Future Scheduled 2022-05-06 INFLUENZA VACCINE [facility] Test 10:13:08 [code = INFLUENZA VACCINE] Future Scheduled 2021-09-19 COVID-19 VACCINE (1) Met [facility] Test 04:08:39 [code = COVID-19 VACCINE (1)] Future Scheduled 2021-09-19 Hepatitis C screening [facility] Test 04:08:39 (procedure) [code = 934960915] Future Scheduled 2021-09-19 Screening for [facility] Test 04:08:39 malignant neoplasm of cervix (procedure) [code = 696721157] Future Scheduled 2021-09-19 BREAST CANCER [facility] Test 04:08:39 SCREENING [code = BREAST CANCER SCREENING] Future Scheduled 2021-09-19 COLONOSCOPY SCREENING [facility] Test 04:08:39 [code = COLONOSCOPY SCREENING] Future Scheduled 2021-09-19 INFLUENZA VACCINE [facility] Test 04:08:39 [code = INFLUENZA VACCINE] Future Scheduled 2021-09-19 COVID-19 VACCINE (1) Met [facility] Test 04:08:39 [code = COVID-19 VACCINE (1)] Future Scheduled 2021-09-19 Hepatitis C screening [facility] Test 04:08:39 (procedure) [code = 211153374] Future Scheduled 2021-09-19 Screening for [facility] Test 04:08:39 malignant neoplasm of cervix (procedure) [code = 186359745] Future Scheduled 2021-09-19 BREAST CANCER [facility] [...] (1)] Future Scheduled [facility] (procedure) [code = 433045977] Future Scheduled Screening for [facility] Test malignant neoplasm of cervix (procedure) [code = 531613429] Future Scheduled BREAST CANCER [facility] Test SCREENING [code = BREAST CANCER SCREENING] Future Scheduled COLONOSCOPY [facility] [code = COLONOSCOPY SCREENING] Future Scheduled INFLUENZA VACCINE [facility] Test [code = INFLUENZA VACCINE] Encounters Start End Encounter Admission Attending Care Care Encounter Source Date/Time Date/Time Type Type Clinicians Facility Department ID 2022-03-11 Outpatient De Anda, [facility] [id number] Common 07:59:00 Balje[facility] 2022-03-07 Outpatient De Anda, [facility] [id number] Common 09:35:01 Baljeet [facility] 2022-02-20 Outpatient De Anda, [facility] [id number] Common 15:57:00 Baljeet [facility] 2022-02-07 Outpatient GIANNA ROBERTS [facility] 7501 13:35:33 [facility] 2021-10-02 Outpatient De Anda, [facility] [id number] Common 14:26:56 Baljeet [id number] [facility] 2021-10-02 Outpatient De Anda, [facility] [id number] Common 14:26:22 Baljeet [id number] [facility] 2021-10-02 Outpatient De Anda, [facility]LML[facility] [id number] Common 14:17:54 [facility] [id number] [facility] 2021-10-02 Outpatient Guerrero, STLMLC [facility] [id number] Common 14:09:58 Vira [id number] [facility] 2021-10-02 Outpatient Millender, [facility] [id number] Common 11:05:50 Tawana 14078 [facility] 2021-10-02 Outpatient Millender, [facility]LML[facility] [id number] Common 11:03:36 Tawana 98359 [facility] 2021-04-11 Outpatient TAMMY [facility] [id number] [place] 09:44:24 E, JOSH [facility] 2021-02-25 Outpatient [facility] [id number] [place] 10:35:57 [facility] 2022-05-06 2022-05-06 [facility] [id number] [facility] 10:25:00 23:59:00 Encounter Armond SPECIALTY [id number] ity of [facility] 4.2.7.2.[address] [facility] AT [id number] Wy natalee DUKES 809 [facility] 2022-05-06 2022-05-06 [facility]patient [facility] [id number] Univers 10:00:00 15:17:56 ALE ity of [facility] 2022-05-06 2022-05-06 Office [facility] 1.2.840.114 [id number] Univers 10:00:00 10:20:00 Visit Ale SPECIALTY [id number] ity of CARE 4.2.7.2.[address] [facility] AT [id number] Wy natalee DUKES 198 [facility] 2022-04-25 2022-04-25 Orders Doctor CRANE 1.2.840.114 [id number] Univers 00:00:00 00:00:00 Only Unassigned, AVA [id number] ity of [place] [facility] 4.2.7.2.686 Claudio as [id number] [facility] 009 Branch 2021-09-11 2021-09-11 Office Alonso LORENE [facility] 1.2.840.114 [id number] [place] 15:00:00 15:21:08 Visit Chanel SUGAR 350.1.13.58 [facility] 9.2.7.2.686 PLAZA 0 [id number] AND 4 WOMENS 2021-06-25 2021-07-25 OP Therapy nullFlavo [facility] [id number] Memoria 16:00:00 05:59:00 Patients r [place] 00 l [facility] 2021-06-25 2021-07-25 OP Therapy nullFlavo SMR [id number] Memoria 16:00:00 05:59:00 Patients r [place] 00 l [facility] 2021-06-25 2021-07-24 Outpatient Tammy 2.16.840. 2.16.840. 1. [id number] 11:00:00 23:59:00 Josh pham [id number]. [id number] 00 3.615.57 5.57 2021-06-12 2021-06-12 EXT [facility] OP Tammy EXT MSRDP 1.2.840.1 14 [id number] [place] 00:00:00 00:00:00 Josh pham [id number] Health 9.2.7.2.686 [id number] 0 2021-06-12 2021-06-12 EXT [facility] OP Tammy EXT MSRDP 1.2.840.1 14 [id number] [place] 00:00:00 00:00:00 Josh pham [id number] Health 9.2.7.2.686 [id number] 0 2021-06-05 2021-06-05 Office Tammy [facility] 1.2.840.114 [id number] [place] 08:01:02 09:18:56 Visit Josh pham [id number] Health MEDICAL 9.2.7.2.686 [place] 8 [id number] 7 2021-03-26 2021-03-26 Orders Sherron [facility] 1.2.840.114 [id number] [place] 00:00:00 00:00:00 Only Armond [facility] 350.1.13.58 [facility] 9.2.7.2.686 PLAZA 1 [id number] 7 2021-03-26 2021-03-26 Orders LORENE Siu H 1.2.840.114 [id number] 00:00:00 00:00:00 Only Armond CARRASCO [id number] MEDICAL 9.2.7.2.686 PLAZA 5 [id number] 7 2021-03-19 2021-03-20 Outpt Diag nullFlavo [facility] [id number] Memoria 12:30:00 04:59:00 Services r Outpatient 00 l Imaging [place] 2021-03-19 2021-03-20 Outpt Diag nullFlavo [facility] [id number] Memoria 12:30:00 04:59:00 Services r Outpatient 00 l [facility] [place] 2021-03-19 2021-03-19 Outpatient OkWalker MHOIP MHOIP [id number] 07:30:00 23:59:00 Josh pham 00 2021-03-18 2021-03-18 EXT [facility] OP Tammy EXT MSRDP 1.2.840.1 14 [id number] [place] 00:00:00 00:00:00 Josh pham [id number] Health 9.2.7.2.686 [id number] 0 2021-02-27 2021-02-27 Office Tammy [facility] 1.2.840.114 [id number] [place] 08:29:48 10:00:26 Visit eJosh 350.1.13.58 Health MEDICAL 9.2.7.2.686 PLAZA 1 [id number] 7 2021-02-27 2021-02-27 Office Tammy [facility] 1.2.840.114 12 [id number] 08:29:48 10:00:26 Visit e, Josh CARRASCO [id number] MEDICAL 9.2.7.2.686 PLAZA 1 [id number] 7 2020-11-13 2020-11-13 Hospital Royce Rivers 1.2.840.1 [id number] Methodi 08:27:59 23:59:00 Encounter Maryann 34422.1.[address] 3.430.2.7 Hospit a .3.619676 l .8 2020-11-13 2020-11-13 Travel 1.2.840.1 1.2.026.912 [id number] Methodi 00:00:00 00:00:[address] 3.430.2.7 0.2.7.3.698 Ho spita .3.641587 084.8 l .8 2020-11-13 2020-11-13 Transcribe Royce Rivers 1.2.840.1 [id number] Methodi 00:00:00 00:00:00 Orders Maryann [id number] 3.430.2.7 Hospit a .3.762470 l .8 2020-11-09 2020-11-09 Orders Doctor CRANE 1.2.840.114 [id number] 00:00:00 00:00:00 Only Unassigned, AVA 350.1.13.10 [place] [facility] 4.2.7.2.686 [id number] 2020-10-05 2020-10-05 Telephone Arnulfo [facility] 1.2.733.436 [id number] 00:00:00 00:00:00 Delvin [facility] 350.1.13.10 Surgical 4.2.7.2.686 Specialti [id number] es 198 [place] 2020-09-27 2020-09-27 [facility] Zuleika [facility] 1.2.840.114 [id number] 08:21:38 23:59:00 Encounter Darrius [facility] 350.1.13.10 Surgical 4.2.7.2.686 Specialti [id number] es 809 [place] 2020-09-27 2020-09-27 Office Zuleika [facility] 1.2.390.529 [id number] 07:50:24 08:32:23 Visit Darrius Pagan [facility] [id number] Surgical 4.2.7.2.686 [facility] [id number] es 198 [place] 2020-09-24 2020-09-24 Orders Doctor ROYCE 1.2.840.114 [id number] 00:00:00 00:00:00 Only Unassigned, AVA 350.1.13.10 [place] [facility] 4.2.7.2.686 [id number] 009 2020-07-23 2020-07-23 [place] [id number] Memoria 20:00:00 20:00:00 Pre-Reg r Cardiology 05 l [facility] Andrei 2020-07-23 2020-07-23 [place] [id number] Memoria 20:00:00 20:00:00 Pre-Reg r Cardiology 05 l [facility] Andrei 2020-07-23 2020-07-23 Outpatient Maniar, [facility] MG [id number] 14:00:00 14:00:00 Gilmer Hurst 05 2020-05-16 2020-05-16 Outpatient MHIE MHIE [id number] Memoria 13:30:00 13:30:00 05 l Solomon 2019-12-29 2019-12-29 Outpatient [facility] [id number] Common 09:49:00 09:49:00 [facility] 2019-12-27 2019-12-27 Outpatient [facility] [id number] Common 09:02:00 09:02:00 [facility] 2019-12-23 2019-12-25 Outside nullFlavo MNA [id number] Memoria 20:41:52 04:59:59 Medical r Neurology 02 l Records Daryl Carbajal 2019-12-23 2019-12-25 Outside nullFlavo MNA [id number] Memoria 20:41:52 04:59:59 Medical r Neurology 02 l Records Daryl Carbajal 2019-12-23 2019-12-24 Outpatient MHMISCHER MHMISCHER [id number] 15:41:52 23:59:59 2019-12-14 2019-12-14 Outpatient [facility] [id number] Common 14:36:00 14:36:00 t [facility] 2019-11-18 2019-11-21 Inpatient nullFlavo [facility] [id number] Memoria 11:22:00 18:46:00 r Solomon 00 l [facility] 2019-11-18 2019-11-21 Inpatient nullFlavo [facility] [id number] Memoria 11:22:00 18:46:00 r Solomon 00 l [facility] 2019-11-18 2019-11-21 Outpatient Chika, [facility] [id number] 06:22:00 13:46:00 Sadia 2019-11-18 2019-11-21 Inpatient CHIKA, [facility] [id number] [facility] 06:22:00 13:46:00 SADIA 2019-11-14 2019-11-15 Outpatient nullFlavo [facility] [id number] Memoria 18:00:00 04:59:59 r Cardiology 03 l [facility] 2019-11-14 2019-11-15 Outpatient nullFlavo [facility] [id number] Memoria 18:00:00 04:59:59 r Cardiology 03 l [facility] 2019-11-14 2019-11-15 Outpatient nullFlavo [facility] [id number] Memoria 16:00:00 04:59:59 r Cardiology 04 l [facility] 2019-11-14 2019-11-15 Outpatient nullFlavo [facility] [id number] Memoria 16:00:00 04:59:59 r Cardiology 04 l [facility] 2019-11-14 2019-11-14 Outpatient Maniar, MG MG [id number] 13:00:00 23:59:59 Gil[facility] H 03 2019-11-14 2019-11-14 Outpatient Maniar, MHMG MG [id number] 11:00:00 23:59:59 Gil[facility] H 04 2019-11-14 2019-11-14 Outpatient MHIE MHIE [id number] Memoria 13:00:00 13:00:00 03 elle Carbajal 2019-11-14 2019-11-14 Outpatient MHIE MHIE [id number] Memoria 11:00:00 11:00:00 04 elle Carbajal 2019-11-08 2019-11-08 [id number] Common 09:58:00 09:58:[address] [facility] 2019-11-08 2019-11-08 [facility] [id number] Common 09:56:00 09:56:[address] [facility] 2019-10-24 2019-10-24 [facility] 29 [id number] Common 21:19:00 21:19:[address] [facility] 2019-10-24 2019-10-24 [facility] [id number] Common 21:06:00 21:06:[address] [facility] 2019-10-24 2019-10-24 [facility] 29 [id number] Common 09:30:00 09:30:[address] [facility] 2019-09-13 2019-09-13 [facility] [id number] Common 13:20:00 13:20:[address] [facility] 2019-08-26 2019-08-26 [facility] 28 [id number] Common 08:45:00 08:45:[address] [facility] 2019-08-22 2019-08-22 [facility] [id number] Common 01:08:00 01:08:[address] [facility] 2019-08-17 2019-08-17 [facility] [id number] Common 09:51:00 09:51:[address] [facility] 2019-08-16 2019-08-16 [facility] [id number] Common 13:20:00 13:20:[address] [facility] 2019-07-21 2019-07-21 [facility] [id number] Common 14:47:00 14:47:[address] [facility] 2019-07-15 2019-07-15 [facility] [id number] Common 10:09:00 10:09:[address] [facility] 2019-07-15 2019-07-15 [facility] 26 [id number] Common 08:40:00 08:40:[address] [facility] 2019-07-11 2019-07-11 [facility] 28 [id number] Common 13:46:00 13:46:[address] [facility] 2019-06-28 2019-06-28 [facility] [id number] Common 02:54:00 02:54:[address] [facility] 2019-06-24 2019-06-24 [facility] 27 [id number] Common 09:00:00 09:00:[address] [facility] 2019-06-23 2019-06-23 [facility] [id number] Common 15:00:00 15:00:[address] [facility] 2019-05-30 2019-05-30 [facility] 27 [id number] Common 15:13:00 15:13:[address] [facility] 2019-05-05 2019-05-05 [facility] [id number] Common 15:33:00 15:33:[address] [facility] 2019-04-28 2019-04-28 [facility] [id number] Common 09:02:00 09:02:[address] [facility] 2019-04-26 2019-04-26 [facility] 27 [id number] Common 13:43:00 13:43:[address] [facility] 2019-04-25 2019-04-25 [facility] 27 [id number] Common 22:56:00 22:56:[address] [facility] 2019-04-24 2019-04-24 [facility] 27 [id number] Common 11:41:00 11:41:[address] [facility] 2019-04-15 2019-04-15 [facility] [id number] Common 09:07:00 09:07:[address] [facility] 2019-04-15 2019-04-15 [facility] [id number] Common 08:00:00 08:00:[address] [facility] 2019-03-24 2019-03-24 Outpatient gerryLuisana Andreia [id number] Common 09:27:00 09:27:00 Schmaruler Donte Sp yaron DO [facility] 2019-03-16 2019-03-16 [facility] [id number] Common 09:16:00 09:16:[address] [facility] 2019-02-22 2019-02-22 [facility] [id number] Common 09:03:00 09:03:[address] [facility] 2019-02-18 2019-02-18 [facility] 26 [id number] Common 18:38:00 18:38:[address] [facility] 2019-02-18 2019-02-18 [facility] 26 [id number] Common 15:06:00 15:06:[address] [facility] 2019-02-16 2019-02-16 [facility] 26 [id number] Common 16:06:00 16:06:[address] [facility] 2019-02-15 2019-02-15 [facility] [id number] Common 15:20:00 15:20:00 t [facility] [address] [facility] 2018-04-28 2018-04-30 Phone nullFlavo MNA [id number] Memoria 14:28:00 04:59:59 Message r [facility] 2018-04-28 2018-04-30 Phone nullFlavo MNA [id number] Memoria 14:28:00 04:59:59 Message r Neurosurger 01 l [facility] 2018-04-28 2018-04-29 Outpatient MHMISCHER MHMISCHER [id number] 09:28:00 23:59:59 2018-04-07 2018-04-09 Phone nullFlavo MNA Spine [id number] Memoria 19:39:00 04:59:59 Message r Clinic [facility] 00 elle Carbajal 2018-04-07 2018-04-09 Phone nullFlavo MNA Spine [id number] Memoria 19:39:00 04:59:59 Message r Clinic [facility] 00 l Solomon 2018-04-07 2018-04-08 Outpatient MHMISCHER MHMISCHER [id number] 14:39:00 23:59:59 2018-02-02 2018-02-02 Outpatient MHIE MHIE [id number] Memoria 10:45:00 10:45:00 02 elle Carbajal 2018-02-02 2018-02-02 Outpatient MHIE MHIE [id number] Memoria 10:45:00 10:45:00 02 elle Carbajal 2017-11-30 2017-11-30 Outpatient MHIE MHIE [id number] Memoria 13:00:00 13:00:00 01 elle Carbajal 2017-11-30 2017-11-30 Outpatient MHIE MHIE [id number] Memoria 13:00:00 13:00:00 01 elle Carbajal 2017-11-12 2017-11-12 Outpatient MHIE MHIE [id number] Memoria 11:30:00 11:30:00 00 elle Carbajal 2017-11-12 2017-11-12 Outpatient MHIE MHIE [id number] Memoria 11:30:00 11:30:00 00 elle Solomon Results Test Description Test Time Test Comments Results Result [facility] e Comments L Inj/Asp: L [facility]02[facility]06 [facility] ? ? 02/27/2021 trochanteric 14:41:46 ?9:56 AML [...] to verify the correct patient, procedure, equipment, emotional support teacher and site/side marked as required. Patient was prepped and draped in the usual sterile fashion. - XR HIP W/PEL 2020-12- UNI 2+V LT 9 10:05:[address] [facility] 1965 Sex: F * Patient Name: ARI GODOY Unit No: [id number] EXAMS: CPT CODE: [id number] XR HIP W/PEL UNI 2+V LT 01880 AP pelvis with frog-leg view left hip [...] Lorri Orig Print D/T: S: 12/14/2020 (1009) [facility] NAME: ARI GODOY [id number] [facility], [facility] [address] PHYS: [place] [address] : 1965 AGE: 55 SEX: F LOC: VICKY PHONE #: [phone] EXAM DATE: 12/14/2020 STATUS: REG CLI FAX #: [phone] RADIOLOGY NO: PAGE 1 Signed Report XR Lumbar Spine EXAMINATION: Lateral Druze Ap Lateral 9 neutral, flexion and Hosp [...] IMPRESSION: Relatively stable postoperative and degenerative changes. [facility]-[id number] Interface, Radiology Results Incoming - 11/13/2020 12:35 PM CST EXAMINATION : Lateral [...] upper quadrant.IMPRESSION: Relatively stable postoperative and degenerative changes.[facility]-[id number] [facility] CHEM PANEL 2019-11-21 09:56:00 Test Item Value Reference Range Interpretation Comme nts Glucose Lvl (test code = Glucose Lvl) 215 70-99 [facility] [id number] 09:56:00 Test Item Value Reference Range Interpretation Comments BUN (test code = BUN) 15 7-22 [facility] [id number] 09:56:00 Test Item Value Reference Range Interpretation Comments Creatinine Lvl (test code = Creatinine 0.50 0.50-1.40 Lvl) [facility] [id number] 09:56:00 Test Item Value Reference Range Interpretation Comments Sodium Lvl (test code = Sodium Lvl) 137 135-145 [facility] [id number] 09:56:00 Test Item Value Reference Range Interpretation Comments Potassium Lvl (test code = Potassium 4.5 3.5-5.1 Lvl) [facility] [id number] 09:56:00 Test Item Value Reference Range Interpretation Comments Chloride Lvl (test code = Chloride Lvl) 102 95-109 [facility] [id number] 09:56:00 Test Item Value Reference Range Interpretation Comments CO2 (test code = CO2) 30 24-32 [facility] [id number] 09:56:00 Test Item Value Reference Range Interpretation Comments Calcium Lvl (test code = Calcium Lvl) 9.3 8.5-10.5 [facility] [id number] 09:56:00 Test Item Value Reference Range Interpretation Comments AGAP (test code = AGAP) 9.5 10.0-20.0 [facility]2020-03-16 09:56:00 Test Item Value Reference Range Interpretation Comments eGFR (test code = eGFR) 125 [facility]15[facility]-04 09:56:00 Test Item Value Reference Range Interpretation Comments Segs (test code = Segs) 71.7 45.0-75.0 [place] 451500-03-16 09:56:00 Test Item Value Reference Range Interpretation Comments Lymphocytes (test code = Lymphocytes) 17.6 20.0-40.0 [place] 451500-03-16 09:56:00 Test Item Value Reference Range Interpretation Comments Monocytes (test code = Monocytes) 8.4 2.0-12.0 [place] 451500-03-16 09:56:00 Test Item Value Reference Range Interpretation Comments Eosinophils (test code = 1.7 See_Comment [A utomated message] The Eosinophils) system which ge nerated this result tra nsmitted reference range : <=4.0. The reference r sharon was not used to int erpret this result as normal/abnormal . [place] 451500-03-16 09:56:00 Test Item Value Reference Range Interpretation Comments Basophils (test code = 0.6 See_Comment [Aut omated message] The Basophils) system which ge nerated this result tra nsmitted reference range : <=1.0. The reference r sharon was not used to int erpret this result as normal/abnormal . [place] 451500-03-16 09:56:00 Test Item Value Reference Range Interpretation Comments Neutrophils # (test code = Neutrophils 8.2 1.5-8.1 #) [place] [address]-03-16 09:56:00 Test Item Value Reference Range Interpretation Comments Lymphocytes # (test code = Lymphocytes 2.0 1.0-5.5 #) [place] [address]-03-16 09:56:00 Test Item Value Reference Range Interpretation Comments Monocytes # (test code 1.0 See_Comment [Aut omated message] The = Monocytes #) system which generated this result tra nsmitted reference range : <=0.8. The reference r sharon was not used to int erpret this result as normal/abnormal . [place] 451500-03-16 09:56:00 Test Item Value Reference Range Interpretation Comments Eosinophils # (test code 0.2 See_Comment [A utomated message] The = Eosinophils #) system whic h generated this result tra nsmitted reference range : <=0.5. The reference r sharon was not used to int erpret this result as normal/abnormal . [facility]ikzbjqLSVCEYNAGY1361-58-41 09:56:00 Test Item Value Reference Range Interpretation Comments Basophils # (test code 0.1 See_Comment [Aut omated message] The = Basophils #) system which generated this result tra nsmitted reference range : <=0.2. The reference r sharon was not used to int erpret this result as normal/abnormal . [facility]ohntnzAZANCYGUKL9540-58-54 09:56:00 Test Item Value Reference Range Interpretation Comments WBC (test code = WBC) 11.5 3.7-10.4 [place] 451500-03-16 09:56:00 Test Item Value Reference Range Interpretation Comments RBC (test code = RBC) 4.12 4.20-5.40 [place] 451500-03-16 09:56:00 Test Item Value Reference Range Interpretation Comments Hgb (test code = Hgb) 13.0 12.0-16.0 [place] [address]-03-16 09:56:00 Test Item Value Reference Range Interpretation Comments Hct (test code = Hct) 38.1 36.0-48.0 [place] [address]-03-16 09:56:00 Test Item Value Reference Range Interpretation Comments MCV (test code = MCV) 92.5 80.0-98.0 [place] [address]-03-16 09:56:00 Test Item Value Reference Range Interpretation Comments MCH (test code = MCH) 31.6 pg 27.0-31.0 [facility]xomzxyABHCQMJOTW4128-68-09 09:56:00 Test Item Value Reference Range Interpretation Comments MCHC (test code = MCHC) 34.2 32.0-36.0 [place] 451500-03-16 09:56:00 Test Item Value Reference Range Interpretation Comments RDW (test code = RDW) 13.3 11.5-14.5 [place] 451500-03-16 09:56:00 Test Item Value Reference Range Interpretation Comments Platelet (test code = Platelet) 260 133-450 [place] [address]-03-16 09:56:00 Test Item Value Reference Range Interpretation Comments MPV (test code = MPV) 8.0 7.4-10.4 [place] [address]-03-16 09:56:00 Test Item Value Reference Range Interpretation Comments Glucose Lvl (test code = Glucose Lvl) 215 70-99 [place] [address]-03-16 09:56:00 Test Item Value Reference Range Interpretation Comments BUN (test code = BUN) 15 7-22 [place] [address]-03-16 09:56:00 Test Item Value Reference Range Interpretation Comments Creatinine Lvl (test code = Creatinine 0.50 0.50-1.40 Lvl) [place] [address]-03-16 09:56:00 Test Item Value Reference Range Interpretation Comments Sodium Lvl (test code = Sodium Lvl) 137 135-145 [place] [address]-03-16 09:56:00 Test Item Value Reference Range Interpretation Comments Potassium Lvl (test code = Potassium 4.5 3.5-5.1 Lvl) [place] [address]-03-16 09:56:00 Test Item Value Reference Range Interpretation Comments Chloride Lvl (test code = Chloride Lvl) 102 95-109 [place] [address]-03-16 09:56:00 Test Item Value Reference Range Interpretation Comments CO2 (test code = CO2) 30 24-32 [place] [address]-03-16 09:56:00 Test Item Value Reference Range Interpretation Comments Calcium Lvl (test code = Calcium Lvl) 9.3 8.5-10.5 [place] 286780-03-16 09:56:00 Test Item Value Reference Range Interpretation Comments AGAP (test code = AGAP) 9.5 10.0-20.0 [place] [address]-03-16 09:56:00 Test Item Value Reference Range Interpretation Comments eGFR (test code = eGFR) 125 [place] [address]-03-16 09:56:00 Test Item Value Reference Range Interpretation Comments Segs (test code = Segs) 71.7 45.0-75.0 [place] [address]-03-16 09:56:00 Test Item Value Reference Range Interpretation Comments Lymphocytes (test code = Lymphocytes) 17.6 20.0-40.0 [place] 451500-03-16 09:56:00 Test Item Value Reference Range Interpretation Comments Monocytes (test code = Monocytes) 8.4 2.0-12.0 [place] 451500-03-16 09:56:00 Test Item Value Reference Range Interpretation Comments Eosinophils (test code = 1.7 See_Comment [A utomated message] The Eosinophils) system which ge nerated this result tra nsmitted reference range : <=4.0. The reference r sharon was not used to int erpret this result as normal/abnormal . [place] [address]-03-16 09:56:00 Test Item Value Reference Range Interpretation Comments Basophils (test code = 0.6 See_Comment [Aut omated message] The Basophils) system which ge nerated this result tra nsmitted reference range : <=1.0. The reference r sharon was not used to int erpret this result as normal/abnormal . [place] 451500-03-16 09:56:00 Test Item Value Reference Range Interpretation Comments Neutrophils # (test code = Neutrophils 8.2 1.5-8.1 #) [place] 451500-03-16 09:56:00 Test Item Value Reference Range Interpretation Comments Lymphocytes # (test code = Lymphocytes 2.0 1.0-5.5 #) [place] [address]-03-16 09:56:00 Test Item Value Reference Range Interpretation Comments Monocytes # (test code 1.0 See_Comment [Aut omated message] The = Monocytes #) system which generated this result tra nsmitted reference range : <=0.8. The reference r sharon was not used to int erpret this result as normal/abnormal . [place] [address]-03-16 09:56:00 Test Item Value Reference Range Interpretation Comments Eosinophils # (test code 0.2 See_Comment [A utomated message] The = Eosinophils #) system whic h generated this result tra nsmitted reference range : <=0.5. The reference r sharon was not used to int erpret this result as normal/abnormal . [place] 451500-03-16 09:56:00 Test Item Value Reference Range Interpretation Comments Basophils # (test code 0.1 See_Comment [Aut omated message] The = Basophils #) system which generated this result tra nsmitted reference range : <=0.2. The reference r sharon was not used to int erpret this result as normal/abnormal . [facility]mvrdafKUAGFAICNE5945-02-30 09:56:00 Test Item Value Reference Range Interpretation Comments WBC (test code = WBC) 11.5 3.7-10.4 [facility]QortdjyEDSWQGBOOC6494-81-10 09:56:00 Test Item Value Reference Range Interpretation Comments RBC (test code = RBC) 4.12 4.20-5.40 [facility] HendersonEfopexbYINEHOPGJD1659-30-86 09:56:00 Test Item Value Reference Range Interpretation Comments Hgb (test code = Hgb) 13.0 12.0-16.0 [facility] HendersonCevlvneBBMNIFOBTF2097-05-55 09:56:00 Test Item Value Reference Range Interpretation Comments Hct (test code = Hct) 38.1 36.0-48.0 [facility] HendersonCluaamvXOZFWKGOVV6135-59-75 09:56:00 Test Item Value Reference Range Interpretation Comments MCV (test code = MCV) 92.5 80.0-98.0 [facility]SmzxxkuVZJQFUBZVB8667-39-43 09:56:00 Test Item Value Reference Range Interpretation Comments MCH (test code = MCH) 31.6 pg 27.0-31.0 [facility] HendersonCbwtafvTIPEMYMLYQ2089-42-19 09:56:00 Test Item Value Reference Range Interpretation Comments MCHC (test code = MCHC) 34.2 32.0-36.0 [facility] HendersonQtocyfwJOBEJMSZRI1300-13-98 09:56:00 Test Item Value Reference Range Interpretation Comments RDW (test code = RDW) 13.3 11.5-14.5 [place] 451500-03-16 09:56:00 Test Item Value Reference Range Interpretation Comments Platelet (test code = Platelet) 260 133-450 [facility] HendersonEtprrkwSHYIDYFLXC3744-75-15 09:56:00 Test Item Value Reference Range Interpretation Comments MPV (test code = MPV) 8.0 7.4-10.4 [facility] [id number] 07:18:00 Test Item Value Reference Range Interpretation Comments Glucose Lvl (test code = Glucose Lvl) 205 70-99 [facility] [id number] 07:18:00 Test Item Value Reference Range Interpretation Comments BUN (test code = BUN) 18 7-22 [place] 286780-03-15 07:18:00 Test Item Value Reference Range Interpretation Comments Creatinine Lvl (test code = Creatinine 0.60 0.50-1.40 Lvl) [place] 286780-03-15 07:18:00 Test Item Value Reference Range Interpretation Comments Sodium Lvl (test code = Sodium Lvl) 137 135-145 [place] [address]-03-15 07:18:00 Test Item Value Reference Range Interpretation Comments Potassium Lvl (test code = Potassium 4.2 3.5-5.1 Lvl) [place] 286780-03-15 07:18:00 Test Item Value Reference Range Interpretation Comments Chloride Lvl (test code = Chloride Lvl) 102 95-109 [place] 286780-03-15 07:18:00 Test Item Value Reference Range Interpretation Comments CO2 (test code = CO2) 28 24-32 [place] [address]-03-15 07:18:00 Test Item Value Reference Range Interpretation Comments Calcium Lvl (test code = Calcium Lvl) 8.8 8.5-10.5 [place] 286780-03-15 07:18:00 Test Item Value Reference Range Interpretation Comments AGAP (test code = AGAP) 11.2 10.0-20.0 [place] [address]-03-15 07:18:00 Test Item Value Reference Range Interpretation Comments eGFR (test code = eGFR) 118 [place] 286780-03-15 07:18:00 Test Item Value Reference Range Interpretation Comments Magnesium Lvl (test code = Magnesium 1.8 1.8-2.4 Lvl) [place] 286780-03-15 07:18:00 Test Item Value Reference Range Interpretation Comments Phosphorus (test code = Phosphorus) 3.2 2.5-4.5 [place] [address]-03-15 07:18:00 Test Item Value Reference Range Interpretation Comments WBC (test code = WBC) 13.5 3.7-10.4 [place] [address]-03-15 07:18:00 Test Item Value Reference Range Interpretation Comments RBC (test code = RBC) 3.98 4.20-5.40 [facility]vxzmcqLJWMXGZXWM9083-54-23 07:18:00 Test Item Value Reference Range Interpretation Comments Hgb (test code = Hgb) 12.2 12.0-16.0 [facility] HendersonGpuynqhHEZQTZXNIA6870-49-31 07:18:00 Test Item Value Reference Range Interpretation Comments Hct (test code = Hct) 37.0 36.0-48.0 [facility]QwvvarrJBYRJTDPXP5936-69-80 07:18:00 Test Item Value Reference Range Interpretation Comments MCV (test code = MCV) 93.0 80.0-98.0 [place] 451500-03-15 07:18:00 Test Item Value Reference Range Interpretation Comments MCH (test code = MCH) 30.7 pg 27.0-31.0 [facility]HfojlbvRUZUDTITUM1841-64-19 07:18:00 Test Item Value Reference Range Interpretation Comments MCHC (test code = MCHC) 33.0 32.0-36.0 [facility] HendersonMlgsjquKXIQZKFIDT8956-76-96 07:18:00 Test Item Value Reference Range Interpretation Comments RDW (test code = RDW) 13.2 11.5-14.5 [facility] HendersonKdzizqtWXPCCNZLMX1058-02-39 07:18:00 Test Item Value Reference Range Interpretation Comments Platelet (test code = Platelet) 256 133-450 [facility] HendersonUeivuicQAAXNJOSBW9794-95-67 07:18:00 Test Item Value Reference Range Interpretation Comments MPV (test code = MPV) 8.1 7.4-10.4 [facility]CeiwfmqWDQWBVCESN9341-07-07 07:18:00 Test Item Value Reference Range Interpretation Comments RBC Morph (test code = Normal (11/20/19 2:18 RBC Morph) AM) [facility] HendersonNinusxsAGKWJZDVIR5379-67-78 07:18:00 Test Item Value Reference Range Interpretation Comments Plt Morph (test code = Normal (11/20/19 2:18 Plt Morph) AM) [facility] HendersonRxwnfhrTYNLCQRGEH2245-13-92 07:18:00 Test Item Value Reference Range Interpretation Comments Segs (test code = Segs) 83.0 45.0-75.0 [facility] HendersonPjhmgabRVSZQDJJMX7787-67-56 07:18:00 Test Item Value Reference Range Interpretation Comments Lymphocytes (test code = Lymphocytes) 11.2 20.0-40.0 [address]03-15 07:18:00 Test Item Value Reference Range Interpretation Comments Monocytes (test code = Monocytes) 4.4 2.0-12.[address]03-15 07:18:00 Test Item Value Reference Range Interpretation Comments Eosinophils (test code = 1.1 See_Comment [A utomated message] The Eosinophils) system which ge nerated this result tra nsmitted reference range : <=4.0. The reference r sharon was not used to int erpret this result as normal/abnormal . [address]03-15 07:18:00 Test Item Value Reference Range Interpretation Comments Basophils (test code = 0.3 See_Comment [Aut omated message] The Basophils) system which ge nerated this result tra nsmitted reference range : <=1.0. The reference r sharon was not used to int erpret this result as normal/abnormal . [address]03-15 07:18:00 Test Item Value Reference Range Interpretation Comments Neutrophils # (test code = Neutrophils 11.2 1.5-8.1 #) [address]03-15 07:18:00 Test Item Value Reference Range Interpretation Comments Lymphocytes # (test code = Lymphocytes 1.5 1.0-5.5 #) [address]03-15 07:18:00 Test Item Value Reference Range Interpretation Comments Monocytes # (test code 0.6 See_Comment [Aut omated message] The = Monocytes #) system which generated this result tra nsmitted reference range : <=0.8. The reference r sharon was not used to int erpret this result as normal/abnormal . [address]03-15 07:18:00 Test Item Value Reference Range Interpretation Comments Eosinophils # (test code 0.1 See_Comment [A utomated message] The = Eosinophils #) system whic h generated this result tra nsmitted reference range : <=0.5. The reference r sharon was not used to int erpret this result as normal/abnormal . [address]03-15 07:18:00 Test Item Value Reference Range Interpretation Comments Basophils # (test code 0.0 See_Comment [Aut omated message] The = Basophils #) system which generated this result tra nsmitted reference range : <=0.2. The reference r sharon was not used to int erpret this result as normal/abnormal . [facility] Test Item Value Reference Range Interpretation Comments Ca Ion WB (test code = Ca Ion WB) 1.07 1.05-1.25 [facility] [id number] 07:18:00 Test Item Value Reference Range Interpretation Comments Ca Norm WB (test code = Ca Norm WB) 1.09 1.05-1.25 [place] 286780-03-15 07:18:00 Test Item Value Reference Range Interpretation Comments Glucose Lvl (test code = Glucose Lvl) 205 70-99 [facility]2020-03-15 07:18:00 Test Item Value Reference Range Interpretation Comments BUN (test code = BUN) 18 7-22 [place] [address]-03-15 07:18:00 Test Item Value Reference Range Interpretation Comments Creatinine Lvl (test code = Creatinine 0.60 0.50-1.40 Lvl) [facility]2020-03-15 07:18:00 Test Item Value Reference Range Interpretation Comments Sodium Lvl (test code = Sodium Lvl) 137 135-145 [place] 286780-03-15 07:18:00 Test Item Value Reference Range Interpretation Comments Potassium Lvl (test code = Potassium 4.2 3.5-5.1 Lvl) [place] 286780-03-15 07:18:00 Test Item Value Reference Range Interpretation Comments Chloride Lvl (test code = Chloride Lvl) 102 95-109 [place] 286780-03-15 07:18:00 Test Item Value Reference Range Interpretation Comments CO2 (test code = CO2) 28 24-32 [place] 286780-03-15 07:18:00 Test Item Value Reference Range Interpretation Comments Calcium Lvl (test code = Calcium Lvl) 8.8 8.5-10.5 [place] 286780-03-15 07:18:00 Test Item Value Reference Range Interpretation Comments AGAP (test code = AGAP) 11.2 10.0-20.0 [place] 286780-03-15 07:18:00 Test Item Value Reference Range Interpretation Comments eGFR (test code = eGFR) 118 [facility] [id number] 07:18:00 Test Item Value Reference Range Interpretation Comments Magnesium Lvl (test code = Magnesium 1.8 1.8-2.4 Lvl) [facility]2020-03-15 07:18:00 Test Item Value Reference Range Interpretation Comments Phosphorus (test code = Phosphorus) 3.2 2.5-4.5 [facility]66[facility] 07:18:00 Test Item Value Reference Range Interpretation Comments WBC (test code = WBC) 13.5 3.7-10.4 [facility]TvutxbyUGPWKQIQRH9811-03-11 07:18:00 Test Item Value Reference Range Interpretation Comments RBC (test code = RBC) 3.98 4.20-5.40 [facility]XezlzwaKDLHJRGARM9308-18-92 07:18:00 Test Item Value Reference Range Interpretation Comments Hgb (test code = Hgb) 12.2 12.0-16.0 [facility]MzhqvmaVPUINXSAUO7511-10-19 07:18:00 Test Item Value Reference Range Interpretation Comments Hct (test code = Hct) 37.0 36.0-48.0 [facility] HendersonCymqfgjDQWSAOEKZE9713-96-42 07:18:00 Test Item Value Reference Range Interpretation Comments MCV (test code = MCV) 93.0 80.0-98.0 [facility] HendersonNtqzaolDYPNTIEWGT6981-66-50 07:18:00 Test Item Value Reference Range Interpretation Comments MCH (test code = MCH) 30.7 pg 27.0-31.0 [facility] HendersonVnsxodaEHRGXTGDRI2748-05-99 07:18:00 Test Item Value Reference Range Interpretation Comments MCHC (test code = MCHC) 33.0 32.0-36.0 [place] 451500-03-15 07:18:00 Test Item Value Reference Range Interpretation Comments RDW (test code = RDW) 13.2 11.5-14.5 [place] [address]-03-15 07:18:00 Test Item Value Reference Range Interpretation Comments Platelet (test code = Platelet) 256 133-450 [facility]QuzqevsMPECGMGOPE5501-36-30 07:18:00 Test Item Value Reference Range Interpretation Comments MPV (test code = MPV) 8.1 7.4-10.4 [place] 451500-03-15 07:18:00 Test Item Value Reference Range Interpretation Comments RBC Morph (test code = Normal (11/20/19 2:18 RBC Morph) AM) [place] 451500-03-15 07:18:00 Test Item Value Reference Range Interpretation Comments Plt Morph (test code = Normal (11/20/19 2:18 Plt Morph) AM) [place] [address]-03-15 07:18:00 Test Item Value Reference Range Interpretation Comments Segs (test code = Segs) 83.0 45.0-75.0 [place] [address]-03-15 07:18:00 Test Item Value Reference Range Interpretation Comments Lymphocytes (test code = Lymphocytes) 11.2 20.0-40.0 [place] [address]-03-15 07:18:00 Test Item Value Reference Range Interpretation Comments Monocytes (test code = Monocytes) 4.4 2.0-12.0 [place] [address]-03-15 07:18:00 Test Item Value Reference Range Interpretation Comments Eosinophils (test code = 1.1 See_Comment [A utomated message] The Eosinophils) system which ge nerated this result tra nsmitted reference range : <=4.0. The reference r sharon was not used to int erpret this result as normal/abnormal . [place] [address]-03-15 07:18:00 Test Item Value Reference Range Interpretation Comments Basophils (test code = 0.3 See_Comment [Aut omated message] The Basophils) system which ge nerated this result tra nsmitted reference range : <=1.0. The reference r sharon was not used to int erpret this result as normal/abnormal . [facility]OnvlyjvZPZYLYBKXA8026-98-68 07:18:00 Test Item Value Reference Range Interpretation Comments Neutrophils # (test code = Neutrophils 11.2 1.5-8.1 #) [place] [address]-03-15 07:18:00 Test Item Value Reference Range Interpretation Comments Lymphocytes # (test code = Lymphocytes 1.5 1.0-5.5 #) [place] [address]-03-15 07:18:00 Test Item Value Reference Range Interpretation Comments Monocytes # (test code 0.6 See_Comment [Aut omated message] The = Monocytes #) system which generated this result tra nsmitted reference range : <=0.8. The reference r sharon was not used to int erpret this result as normal/abnormal . [facility]RprevxzHSRBODVWZI7872-21-72 07:18:00 Test Item Value Reference Range Interpretation Comments Eosinophils # (test code 0.1 See_Comment [A utomated message] The = Eosinophils #) system whic h generated this result tra nsmitted reference range : <=0.5. The reference r sharon was not used to int erpret this result as normal/abnormal . [facility] HendersonFlaseacBOOPRVHHEH9606-57-38 07:18:00 Test Item Value Reference Range Interpretation Comments Basophils # (test code 0.0 See_Comment [Aut omated message] The = Basophils #) system which generated this result tra nsmitted reference range : <=0.2. The reference r sharon was not used to int erpret this result as normal/abnormal . [facility]2020-03-15 07:18:00 Test Item Value Reference Range Interpretation Comments Ca Ion WB (test code = Ca Ion WB) 1.07 1.05-1.25 [place] [address]-03-15 07:18:00 Test Item Value Reference Range Interpretation Comments Ca Norm WB (test code = Ca Norm WB) 1.09 1.05-1.25 [facility] [id number] 07:06:00 Test Item Value Reference Range Interpretation Comments Phosphorus (test code = Phosphorus) 4.0 2.5-4.5 [facility] [id number] 07:06:00 Test Item Value Reference Range Interpretation Comments Magnesium Lvl (test code = Magnesium 1.7 1.8-2.4 Lvl) [facility] [id number] 07:06:00 Test Item Value Reference Range Interpretation Comments Glucose Lvl (test code = Glucose Lvl) 100 70-99 [facility] [id number] 07:06:00 Test Item Value Reference Range Interpretation Comments BUN (test code = BUN) 13 7-22 [facility] [id number] 07:06:00 Test Item Value Reference Range Interpretation Comments Creatinine Lvl (test code = Creatinine 0.50 0.50-1.40 Lvl) [facility] [id number] 07:06:00 Test Item Value Reference Range Interpretation Comments Sodium Lvl (test code = Sodium Lvl) 142 135-145 [place] 286780-03-14 07:06:00 Test Item Value Reference Range Interpretation Comments Potassium Lvl (test code = Potassium 3.8 3.5-5.1 Lvl) [place] 286780-03-14 07:06:00 Test Item Value Reference Range Interpretation Comments Chloride Lvl (test code = Chloride Lvl) 105 95-109 [facility] [id number] 07:06:00 Test Item Value Reference Range Interpretation Comments CO2 (test code = CO2) 29 24-32 [facility]AP[facility] [id number] 07:06:00 Test Item Value Reference Range Interpretation Comments AGAP (test code = AGAP) 11.8 10.0-20.0 [place] 286780-03-14 07:06:00 Test Item Value Reference Range Interpretation Comments Calcium Lvl (test code = Calcium Lvl) 8.5 8.5-10.5 [place] 286780-03-14 07:06:00 Test Item Value Reference Range Interpretation Comments B/C Ratio (test code = B/C Ratio) 26 1 6-25 [place] 286780-03-14 07:06:00 Test Item Value Reference Range Interpretation Comments Total Protein (test code = Total 6.9 6.4-8.4 Protein) [facility]2020-03-14 07:06:00 Test Item Value Reference Range Interpretation Comments Albumin Lvl (test code = Albumin Lvl) 3.1 3.5-5.0 [place] 286780-03-14 07:06:00 Test Item Value Reference Range Interpretation Comments Globulin (test code = Globulin) 3.8 2.7-4.2 [facility] [id number] 07:06:00 Test Item Value Reference Range Interpretation Comments A/G Ratio (test code = A/G Ratio) 0.8 1 0.7-1.6 [place] [address]-03-14 07:06:00 Test Item Value Reference Range Interpretation Comments ALT (test code = ALT) 132 See_Comment [Auto mated message] The system which ge nerated this result transmit roberto carlos reference range : <=65. The reference range was not used to interpr et this result as tyler l/abnormal. [facility] [id number] 07:06:00 Test Item Value Reference Range Interpretation Comments AST (test code = AST) 184 See_Comment [Auto mated message] The system which ge nerated this result transmit roberto carlos reference range : <=37. The reference range was not used to interpr et this result as tyler l/abnormal. [facility] [id number] 07:06:00 Test Item Value Reference Range Interpretation Comments Alk Phos (test code = Alk Phos) 109 39-136 [facility] [id number] 07:06:00 Test Item Value Reference Range Interpretation Comments Bili Total (test code = Bili Total) 0.4 0.2-1.3 [facility] [id number] 07:06:00 Test Item Value Reference Range Interpretation Comments eGFR (test code = eGFR) 125 [facility] CenterLpmlivkHQHZUIZTCH4743-31-40 07:06:00 Test Item Value Reference Range Interpretation Comments WBC (test code = WBC) 9.8 3.7-10.4 [place] [address]-03-14 07:06:00 Test Item Value Reference Range Interpretation Comments RBC (test code = RBC) 3.94 4.20-5.40 [facility] CenterDztekwuPCNEJRFNAH2915-50-89 07:06:00 Test Item Value Reference Range Interpretation Comments Hgb (test code = Hgb) 12.4 12.0-16.0 [facility]zujvlSDMBOCOPOH6680-85-37 07:06:00 Test Item Value Reference Range Interpretation Comments Hct (test code = Hct) 36.6 36.0-48.0 [place] [address]-03-14 07:06:00 Test Item Value Reference Range Interpretation Comments MCV (test code = MCV) 92.9 80.0-98.0 [place] [address]-03-14 07:06:00 Test Item Value Reference Range Interpretation Comments MCH (test code = MCH) 31.4 pg 27.0-31.0 [place] [address]-03-14 07:06:00 Test Item Value Reference Range Interpretation Comments MCHC (test code = MCHC) 33.8 32.0-36.0 [place] [address]-03-14 07:06:00 Test Item Value Reference Range Interpretation Comments RDW (test code = RDW) 13.1 11.5-14.5 [facility]QjhekmxRRLFNTJHSJ1270-53-57 07:06:00 Test Item Value Reference Range Interpretation Comments Platelet (test code = Platelet) 246 133-450 [facility]PjydzbsSXHPORGIJI4582-37-48 07:06:00 Test Item Value Reference Range Interpretation Comments MPV (test code = MPV) 8.0 7.4-10.4 [place] 451500-03-14 07:06:00 Test Item Value Reference Range Interpretation Comments PTT (test code = PTT) 31.4 s 22.9-35.8 [place] 451500-03-14 07:06:00 Test Item Value Reference Range Interpretation Comments PT (test code = PT) 13.7 s 12.0-14.7 [facility] HendersonYusowsgWBOEEZXINX8946-88-94 07:06:00 Test Item Value Reference Range Interpretation Comments INR (test code = INR) 1.05 1 0.85-1.17 [place] [address]1500-03-14 07:06:00 Test Item Value Reference Range Interpretation Comments Segs (test code = Segs) 68.3 45.0-75.0 [facility] HendersonJhiwxihALXMVGGWPZ6205-94-02 07:06:00 Test Item Value Reference Range Interpretation Comments Lymphocytes (test code = Lymphocytes) 21.7 20.0-40.0 [facility] HendersonBwmcjhoZILOKBZBBA2745-78-28 07:06:00 Test Item Value Reference Range Interpretation Comments Monocytes (test code = Monocytes) 7.7 2.0-12.0 [place] [address]-03-14 07:06:00 Test Item Value Reference Range Interpretation Comments Eosinophils (test code = 1.7 See_Comment [A utomated message] The Eosinophils) system which ge nerated this result tra nsmitted reference range : <=4.0. The reference r sharon was not used to int erpret this result as normal/abnormal . [facility] HendersonEocrjucBWQRLLQUSO6608-55-64 07:06:00 Test Item Value Reference Range Interpretation Comments Basophils (test code = 0.6 See_Comment [Aut omated message] The Basophils) system which ge nerated this result tra nsmitted reference range : <=1.0. The reference r sharon was not used to int erpret this result as normal/abnormal . [place] [address]-03-14 07:06:00 Test Item Value Reference Range Interpretation Comments Neutrophils # (test code = Neutrophils 6.7 1.5-8.1 #) [place] [address]-03-14 07:06:00 Test Item Value Reference Range Interpretation Comments Lymphocytes # (test code = Lymphocytes 2.1 1.0-5.5 #) [place] [address]-03-14 07:06:00 Test Item Value Reference Range Interpretation Comments Monocytes # (test code 0.8 See_Comment [Aut omated message] The = Monocytes #) system which generated this result tra nsmitted reference range : <=0.8. The reference r sharon was not used to int erpret this result as normal/abnormal . [place] [address]-03-14 07:06:00 Test Item Value Reference Range Interpretation Comments Eosinophils # (test code 0.2 See_Comment [A utomated message] The = Eosinophils #) system whic h generated this result tra nsmitted reference range : <=0.5. The reference r sharon was not used to int erpret this result as normal/abnormal . [place] [address]-03-14 07:06:00 Test Item Value Reference Range Interpretation Comments Basophils # (test code 0.1 See_Comment [Aut omated message] The = Basophils #) system which generated this result tra nsmitted reference range : <=0.2. The reference r sharon was not used to int erpret this result as normal/abnormal . [place] 286780-03-14 07:06:00 Test Item Value Reference Range Interpretation Comments Phosphorus (test code = Phosphorus) 4.0 2.5-4.5 [place] [address]-03-14 07:06:00 Test Item Value Reference Range Interpretation Comments Magnesium Lvl (test code = Magnesium 1.7 1.8-2.4 Lvl) [place] [address]-03-14 07:06:00 Test Item Value Reference Range Interpretation Comments Glucose Lvl (test code = Glucose Lvl) 100 70-99 [place] [address]-03-14 07:06:00 Test Item Value Reference Range Interpretation Comments BUN (test code = BUN) 13 7-22 [facility]2020-03-14 07:06:00 Test Item Value Reference Range Interpretation Comments Creatinine Lvl (test code = Creatinine 0.50 0.50-1.40 Lvl) [facility]2020-03-14 07:06:00 Test Item Value Reference Range Interpretation Comments Sodium Lvl (test code = Sodium Lvl) 142 135-145 [facility]AP[facility] [place] [id number] 07:06:00 Test Item Value Reference Range Interpretation Comments Potassium Lvl (test code = Potassium 3.8 3.5-5.1 Lvl) [facility]APROOFEDCRITICAL ACCESS [id number] 07:06:00 Test Item Value Reference Range Interpretation Comments Chloride Lvl (test code = Chloride Lvl) 105 95-109 [facility]APROOFEDCRITICAL ACCESS HOSPITALARJFM9310-08-74 07:06:00 Test Item Value Reference Range Interpretation Comments CO2 (test code = CO2) 29 24-32 [facility]APROOFEDCRITICAL ACCESS HOSPITALWHZBF9302-79-11 07:06:00 Test Item Value Reference Range Interpretation Comments AGAP (test code = AGAP) 11.8 10.0-20.0 [facility]APROOFEDMAD[facility] [place] [id number] 07:06:00 Test Item Value Reference Range Interpretation Comments Calcium Lvl (test code = Calcium Lvl) 8.5 8.5-10.5 [facility]APROOFEDCRITICAL ACCESS [id number] 07:06:00 Test Item Value Reference Range Interpretation Comments B/C Ratio (test code = B/C Ratio) 26 1 6-25 [facility]2020-03-14 07:06:00 Test Item Value Reference Range Interpretation Comments Total Protein (test code = Total 6.9 6.4-8.4 Protein) [facility]2020-03-14 07:06:00 Test Item Value Reference Range Interpretation Comments Albumin Lvl (test code = Albumin Lvl) 3.1 3.5-5.0 [place] 286780-03-14 07:06:00 Test Item Value Reference Range Interpretation Comments Globulin (test code = Globulin) 3.8 2.7-4.2 [facility] [id number] 07:06:00 Test Item Value Reference Range Interpretation Comments A/G Ratio (test code = A/G Ratio) 0.8 1 0.7-1.6 [facility] [id number] 07:06:00 Test Item Value Reference Range Interpretation Comments ALT (test code = ALT) 132 See_Comment [Auto mated message] The system which ge nerated this result transmit roberto carlos reference range : <=65. The reference range was not used to interpr et this result as tyler l/abnormal. [facility] [employer] [id number] 07:06:00 Test Item Value Reference Range Interpretation Comments AST (test code = AST) 184 See_Comment [Auto mated message] The system which ge nerated this result transmit roberto carlos reference range : <=37. The reference range was not used to interpr et this result as tyler l/abnormal. [employer] [id number] 07:06:00 Test Item Value Reference Range Interpretation Comments Alk Phos (test code = Alk Phos) 109 39-136 [facility] [employer] [place] [id number] 07:06:00 Test Item Value Reference Range Interpretation Comments Bili Total (test code = Bili Total) 0.4 0.2-1.3 [facility] [employer] [place] [id number] 07:06:00 Test Item Value Reference Range Interpretation Comments eGFR (test code = eGFR) 125 [facility] CevjkreDEQSBAOYQQ0977-66-63 07:06:00 Test Item Value Reference Range Interpretation Comments WBC (test code = WBC) 9.8 3.7-10.4 [facility] KmwodlbTJETFDUTGT1516-39-76 07:06:00 Test Item Value Reference Range Interpretation Comments RBC (test code = RBC) 3.94 4.20-5.40 [facility] OskpgrdACHNOTVNJT8723-48-58 07:06:00 Test Item Value Reference Range Interpretation Comments Hgb (test code = Hgb) 12.4 12.0-16.0 [facility] JzcxklaNUPTSYLYCZ9106-14-92 07:06:00 Test Item Value Reference Range Interpretation Comments Hct (test code = Hct) 36.6 36.0-48.0 [facility] WaltftfTFHLPEIZBH6311-38-25 07:06:00 Test Item Value Reference Range Interpretation Comments MCV (test code = MCV) 92.9 80.0-98.0 [facility] RiqanapHTOHLNEMAM7588-66-96 07:06:00 Test Item Value Reference Range Interpretation Comments MCH (test code = MCH) 31.4 pg 27.0-31.0 [facility]SvvcuiyPOGIHNZNYX0661-05-80 07:06:00 Test Item Value Reference Range Interpretation Comments MCHC (test code = MCHC) 33.8 32.0-36.0 [facility] HendersonRnxwsxrXHUXTGWPXG8586-99-14 07:06:00 Test Item Value Reference Range Interpretation Comments RDW (test code = RDW) 13.1 11.5-14.5 [facility] HendersonCvqrymsPVFQXUSYXH0208-43-92 07:06:00 Test Item Value Reference Range Interpretation Comments Platelet (test code = Platelet) 246 133-450 [facility] HendersonYwodkctUBRHICDSHC3962-04-86 07:06:00 Test Item Value Reference Range Interpretation Comments MPV (test code = MPV) 8.0 7.4-10.4 [place] [address]1500-03-14 07:06:00 Test Item Value Reference Range Interpretation Comments PTT (test code = PTT) 31.4 s 22.9-35.8 [place] 451500-03-14 07:06:00 Test Item Value Reference Range Interpretation Comments PT (test code = PT) 13.7 s 12.0-14.7 [place] 451500-03-14 07:06:00 Test Item Value Reference Range Interpretation Comments INR (test code = INR) 1.05 1 0.85-1.17 [facility]WtpwxpvCVGTGOXPAA1428-23-90 07:06:00 Test Item Value Reference Range Interpretation Comments Segs (test code = Segs) 68.3 45.0-75.0 [facility] HendersonIjqzixmAFMQJEWCTE6155-72-66 07:06:00 Test Item Value Reference Range Interpretation Comments Lymphocytes (test code = Lymphocytes) 21.7 20.0-40.0 [place] [address]-03-14 07:06:00 Test Item Value Reference Range Interpretation Comments Monocytes (test code = Monocytes) 7.7 2.0-12.0 [place] [address]-03-14 07:06:00 Test Item Value Reference Range Interpretation Comments Eosinophils (test code = 1.7 See_Comment [A utomated message] The Eosinophils) system which ge nerated this result tra nsmitted reference range : <=4.0. The reference r sharon was not used to int erpret this result as normal/abnormal . [facility] HendersonAlgqrcoTTWIZYKMXW8351-56-02 07:06:00 Test Item Value Reference Range Interpretation Comments Basophils (test code = 0.6 See_Comment [Aut omated message] The Basophils) system which ge nerated this result tra nsmitted reference range : <=1.0. The reference r sharon was not used to int erpret this result as normal/abnormal . [place] [address]-03-14 07:06:00 Test Item Value Reference Range Interpretation Comments Neutrophils # (test code = Neutrophils 6.7 1.5-8.1 #) [facility] HendersonAkfwuxiBMUJBNXVHH5259-14-60 07:06:00 Test Item Value Reference Range Interpretation Comments Lymphocytes # (test code = Lymphocytes 2.1 1.0-5.5 #) [place] [address]-03-14 07:06:00 Test Item Value Reference Range Interpretation Comments Monocytes # (test code 0.8 See_Comment [Aut omated message] The = Monocytes #) system which generated this result tra nsmitted reference range : <=0.8. The reference r sharon was not used to int erpret this result as normal/abnormal . [facility] HendersonGjalsdpWEWITIMCIY4494-04-09 07:06:00 Test Item Value Reference Range Interpretation Comments Eosinophils # (test code 0.2 See_Comment [A utomated message] The = Eosinophils #) system whic h generated this result tra nsmitted reference range : <=0.5. The reference r sharon was not used to int erpret this result as normal/abnormal . [facility] HendersonGnwsivzCRRIBGUHJL8710-66-23 07:06:00 Test Item Value Reference Range Interpretation Comments Basophils # (test code 0.1 See_Comment [Aut omated message] The = Basophils #) system which generated this result tra nsmitted reference range : <=0.2. The reference r sharon was not used to int erpret this result as normal/abnormal . [facility] [employer] [place] [id number] 16:12:00 Test Item Value Reference Range Interpretation Comments Magnesium Lvl (test code = Magnesium 1.9 1.8-2.4 Lvl) [facility] [id number] 16:12:00 Test Item Value Reference Range Interpretation Comments Phosphorus (test code = Phosphorus) 4.8 2.5-4.5 [facility] CenterIihnssnGEMQHZLBLG1768-79-11 16:12:00 Test Item Value Reference Range Interpretation Comments PT (test code = PT) 13.9 s 12.0-14.7 [facility] C[id number] 16:12:00 Test Item Value Reference Range Interpretation Comments INR (test code = INR) 1.07 1 0.85-1.17 [facility] CenterSjqtwiuWAZKFMPBIM2494-23-63 16:12:00 Test Item Value Reference Range Interpretation Comments PTT (test code = PTT) 28.3 s 22.9-35.8 [facility] CenterSbzjfsuGRKEKOCLTS3241-13-67 16:12:00 Test Item Value Reference Range Interpretation Comments Fibrinogen Lvl (test code = Fibrinogen 436 230-510 Lvl) [facility] CenterLdllpkoOALHRW5533-94-75 16:12:00 Test Item Value Reference Range Interpretation Comments Trig (test code = Trig) 66 [facility] CenterNnkoriiECCSQT0700-39-79 16:12:00 Test Item Value Reference Range Interpretation Comments Chol (test code = Chol) 134 [facility] CenterHhrgxruNHHMFU5674-99-85 16:12:00 Test Item Value Reference Range Interpretation Comments HDL (test code = HDL) 54 [facility] CenterKpflsxxJHDAXL7450-52-95 16:12:00 Test Item Value Reference Range Interpretation Comments CHD Risk (test code = CHD Risk) 2.48 1 3.90-5.80 [facility] CenterPltcyolJTNGLD4530-29-15 16:12:00 Test Item Value Reference Range Interpretation Comments LDL (Calculated) (test code = LDL 67 (Calculated)) [facility] CenterFqkejesHJMAOY2282-50-32 16:12:00 Test Item Value Reference Range Interpretation Comments VLDL (test code = VLDL) 13 1 [facility] CenterannPARATHYROID [id number] 16:12:00 Test Item Value Reference Range Interpretation Comments Ca Ion WB (test code = Ca Ion WB) 1.18 1.05-1.25 [facility] CenterannPARATHYROID [id number] 16:12:00 Test Item Value Reference Range Interpretation Comments Ca Norm WB (test code = Ca Norm WB) 1.22 1.05-1.25 [facility]annCHEM [id number] 16:12:00 Test Item Value Reference Range Interpretation Comments Magnesium Lvl (test code = Magnesium 1.9 1.8-2.4 Lvl) [facility]annCHEM [id number] 16:12:00 Test Item Value Reference Range Interpretation Comments Phosphorus (test code = Phosphorus) 4.8 2.5-4.5 [facility]ZnqdnxlXDFYPLFBFN4848-86-30 16:12:00 Test Item Value Reference Range Interpretation Comments PT (test code = PT) 13.9 s 12.0-14.7 [facility] HospitalSyyqjubMVQWKXRAWM5937-04-84 16:12:00 Test Item Value Reference Range Interpretation Comments INR (test code = INR) 1.07 1 0.85-1.17 [facility] HospitalYelijwlXHUETMHFWG0791-62-62 16:12:00 Test Item Value Reference Range Interpretation Comments PTT (test code = PTT) 28.3 s 22.9-35.8 [facility] HospitalPvervdhOAHACOKIVG4239-10-31 16:12:00 Test Item Value Reference Range Interpretation Comments Fibrinogen Lvl (test code = Fibrinogen 436 230-510 Lvl) [facility]JivnlqfKLWMTH1284-42-51 16:12:00 Test Item Value Reference Range Interpretation Comments Trig (test code = Trig) 66 [facility] CenterDkgotylJQBKOA2790-27-43 16:12:00 Test Item Value Reference Range Interpretation Comments Chol (test code = Chol) 134 [facility] CenterWgimlibUVAHDA7347-48-37 16:12:00 Test Item Value Reference Range Interpretation Comments HDL (test code = HDL) 54 [facility] CenterSedmnbjFIFHSC5384-40-66 16:12:00 Test Item Value Reference Range Interpretation Comments CHD Risk (test code = CHD Risk) 2.48 1 3.90-5.80 [facility] CenterNdolnanUKUGMC1206-55-34 16:12:00 Test Item Value Reference Range Interpretation Comments LDL (Calculated) (test code = LDL 67 (Calculated)) [facility] [id number] 16:12:00 Test Item Value Reference Range Interpretation Comments VLDL (test code = VLDL) 13 1 [facility] CenterannPARATHYROID [id number] 16:12:00 Test Item Value Reference Range Interpretation Comments Ca Ion WB (test code = Ca Ion WB) 1.18 1.05-1.25 [facility] CenterannPARATHYROID [id number] 16:12:00 Test Item Value Reference Range Interpretation Comments Ca Norm WB (test code = Ca Norm WB) 1.22 1.05-1.25 [facility] CenterObdstwgVRMCTJJPVWYW2381-81-79 12:16:00 Test Item Value Reference Range Interpretation Comments POC Sodium (test code = POC Sodium) 139 135-145 [facility]PnzywlpCZRXGHQMIMSE4284-87-79 12:16:00 Test Item Value Reference Range Interpretation Comments POC Potassium (test code = POC 4.9 3.5-5.1 Potassium) [facility] HospitalNanpmflLSVUQANMYIKN9932-76-86 12:16:00 Test Item Value Reference Range Interpretation Comments POC Chloride (test code = POC Chloride) 102 95-109 [facility] HospitalNlpjmikGOTLDDCSZKCW1479-48-51 12:16:00 Test Item Value Reference Range Interpretation Comments POC Carbon Dioxide (test code = POC 31 24-32 Carbon Dioxide) [facility] HospitalKjuksbyWCAURHAXOQYM6109-00-17 12:16:00 Test Item Value Reference Range Interpretation Comments POC BUN (test code = POC BUN) 24 7-22 [facility] HospitalVdvnlmxZNRRMUNORCEL6121-27-65 12:16:00 Test Item Value Reference Range Interpretation Comments POC Creatinine (test code = POC 0.5 0.5-1.4 Creatinine) [facility] HospitalVypbyjzJCSPXUVSNSZA1754-95-22 12:16:00 Test Item Value Reference Range Interpretation Comments POC Glucose (test code = POC Glucose) 79 70-99 [facility] HospitalJshjgvuJTQNQHJHLPNE2218-72-44 12:16:00 Test Item Value Reference Range Interpretation Comments POC Ion Ca (test code = POC Ion Ca) 1.22 1.05-1.25 [facility] HospitalVeixofyUAJGOIHSPFXV2795-03-91 12:16:00 Test Item Value Reference Range Interpretation Comments POC Hemoglobin (test code = POC 13.9 12.0-16.0 Hemoglobin) [facility] HospitalTqjlxlxFJEIUDHCQECP6671-72-91 12:16:00 Test Item Value Reference Range Interpretation Comments POC Hematocrit (test code = POC 41.0 36.0-48.0 Hematocrit) [facility] HospitalKxzrkrjPMASYJLYIFVZ7765-73-22 12:16:00 Test Item Value Reference Range Interpretation Comments POC AGAP (test code = POC AGAP) 12.0 10.0-20.0 [facility] HospitalVjeycrkWVZBKDPVTYXE5009-72-86 12:16:00 Test Item Value Reference Range Interpretation Comments POC Disclaimer (test code See Note = POC Disclaimer) *NA*(11/18/19 7:16 AM) [facility] HospitalCwpiyvyMNRFSRIBVQYW1911-79-34 12:16:00 Test Item Value Reference Range Interpretation Comments POC Sodium (test code = POC Sodium) 139 135-145 [facility] HospitalNommyofCBGYEEEHFEZM1012-11-51 12:16:00 Test Item Value Reference Range Interpretation Comments POC Potassium (test code = POC 4.9 3.5-5.1 Potassium) [facility] HospitalPxgsakhEUPTVMQLCRJM8927-10-61 12:16:00 Test Item Value Reference Range Interpretation Comments POC Chloride (test code = POC Chloride) 102 95-109 [facility] HospitalRaxnraqIDNKNLQXHFRO9812-03-02 12:16:00 Test Item Value Reference Range Interpretation Comments POC Carbon Dioxide (test code = POC 31 24-32 Carbon Dioxide) [facility] HospitalLrrsxlnMVIGUUPUUYTM4628-47-63 12:16:00 Test Item Value Reference Range Interpretation Comments POC BUN (test code = POC BUN) 24 7-22 [facility] HospitalNzztrmgRMKWDGYYZRQE7096-20-31 12:16:00 Test Item Value Reference Range Interpretation Comments POC Creatinine (test code = POC 0.5 0.5-1.4 Creatinine) [facility] HospitalFdmygpfFFPWMMQEABNN0660-91-31 12:16:00 Test Item Value Reference Range Interpretation Comments POC Glucose (test code = POC Glucose) 79 70-99 [facility] HospitalEdillivYLTODJCRWJPA7102-09-25 12:16:00 Test Item Value Reference Range Interpretation Comments POC Ion Ca (test code = POC Ion Ca) 1.22 1.05-1.25 [facility] HospitalEijzvejTXDSHAPCTJCC5774-28-07 12:16:00 Test Item Value Reference Range Interpretation Comments POC Hemoglobin (test code = POC 13.9 12.0-16.0 Hemoglobin) [facility] HospitalQsxmekdJZGSKLSGIYTH1139-80-25 12:16:00 Test Item Value Reference Range Interpretation Comments POC Hematocrit (test code = POC 41.0 36.0-48.0 Hematocrit) [facility] HospitalHjttgxtPDBGZKSFJRJA7407-81-27 12:16:00 Test Item Value Reference Range Interpretation Comments POC AGAP (test code = POC AGAP) 12.0 10.0-20.0 [facility] HospitalGeqkdpdHSORWUKACCGI4622-46-88 12:16:00 Test Item Value Reference Range Interpretation Comments POC Disclaimer (test code See Note = POC Disclaimer) *NA*(11/18/19 7:16 AM) [facility] CenterNebo.ru B[facility] PKZMFMY2502-39-69 11:55:00 Test Item Value Reference Range Interpretation Comments ABO/Rh (test code = ABO/Rh) A POS [facility] [employer] [facility] [id number] 11:55:00 Test Item Value Reference Range Interpretation Comments Antibody Scrn (test Negative (11/18/19 6:55 code = Antibody Scrn) AM) [facility] [id number] 11:55:00 Test Item Value Reference Range Interpretation Comments ABO/Rh (test code = ABO/Rh) A POS [facility] CenterAPROOFEDAccuTherm Systems [facility] [id number] 11:55:00 Test Item Value Reference Range Interpretation Comments Antibody Scrn (test Negative (11/18/19 6:55 code = Antibody Scrn) AM) [facility] CenterAPROOFEDBACTERIAL - [id number] 20:23:00 Test Item Value Reference Range Interpretation Comments MRSA by PCR (test Negative (11/14/19 3:23 code = MRSA by PCR) PM) [facility] CenterAPROOFEDBACTERIAL - [id number] 20:23:00 Test Item Value Reference Range Interpretation Comments MRSA by PCR (test Negative (11/14/19 3:23 code = MRSA by PCR) PM) [facility] CenterNebo[facility]ru [facility] [id number] 20:12:00 Test Item Value Reference Range Interpretation Comments ABO/Rh (test code = ABO/Rh) A POS [facility] [employer] [facility] [id number] 20:12:00 Test Item Value Reference Range Interpretation Comments Antibody Scrn (test Negative (11/14/19 3:12 code = Antibody Scrn) PM) [facility] [employer] [id number] 20:12:00 Test Item Value Reference Range Interpretation Comments Total Protein (test code = Total 7.5 6.4-8.4 Protein) [facility] [employer] [id number] 20:12:00 Test Item Value Reference Range Interpretation Comments Albumin Lvl (test code = Albumin Lvl) 3.5 3.5-5.0 [facility] [employer] [id number] 20:12:00 Test Item Value Reference Range Interpretation Comments ALT (test code = ALT) 19 See_Comment [Auto mated message] The system which ge nerated this result transmit roberto carlos reference range : <=65. The reference range was not used to interpr et this result as tyler l/abnormal. Locally2020-03-09 20:12:00 Test Item Value Reference Range Interpretation Comments AST (test code = AST) 15 See_Comment [Auto mated message] The system which ge nerated this result transmit roberto carlos reference range : <=37. The reference range was not used to interpr et this result as tyler l/abnormal. Locally2020-03-09 20:12:00 Test Item Value Reference Range Interpretation Comments Alk Phos (test code = Alk Phos) 74 39-136 [facility] [employer]2020-03-09 20:12:00 Test Item Value Reference Range Interpretation Comments Bili Total (test code = Bili Total) 0.2 0.2-1.3 Locally2020-03-09 20:12:00 Test Item Value Reference Range Interpretation Comments B/C Ratio (test code = B/C Ratio) 17 1 6-25 [facility] [employer]2020-03-09 20:12:00 Test Item Value Reference Range Interpretation Comments Globulin (test code = Globulin) 4.0 2.7-4.2 [facility] [facility]2020-03-09 20:12:00 Test Item Value Reference Range Interpretation Comments A/G Ratio (test code = A/G Ratio) 0.9 1 0.7-1.6 [facility] JrtazmeWRNBSFOFPX6725-78-66 20:12:00 Test Item Value Reference Range Interpretation Comments PT (test code = PT) 12.6 s 12.0-14.7 [facility] FzipydbFWOCLJBTND2577-15-13 20:12:00 Test Item Value Reference Range Interpretation Comments INR (test code = INR) 0.94 1 0.85-1.17 [facility] [employer] [id number] 20:12:00 Test Item Value Reference Range Interpretation Comments ABO/Rh (test code = ABO/Rh) A POS [facility] [employer] [id number] 20:12:00 Test Item Value Reference Range Interpretation Comments Antibody Scrn (test Negative (11/14/19 3:12 code = Antibody Scrn) PM) Locally2020-03-09 20:12:00 Test Item Value Reference Range Interpretation Comments Total Protein (test code = Total 7.5 6.4-8.4 Protein) [place] [id number] 20:12:00 Test Item Value Reference Range Interpretation Comments Albumin Lvl (test code = Albumin Lvl) 3.5 3.5-5.0 [facility] CenterInvision.com [id number] 20:12:00 Test Item Value Reference Range Interpretation Comments ALT (test code = ALT) 19 See_Comment [Auto mated message] The system which ge nerated this result transmit roberto carlos reference range : <=65. The reference range was not used to interpr et this result as tyler l/abnormal. [facility] CenterInvision.[facility] [id number] 20:12:00 Test Item Value Reference Range Interpretation Comments AST (test code = AST) 15 See_Comment [Auto mated message] The system which ge nerated this result transmit roberto carlos reference range : <=37. The reference range was not used to interpr et this result as tyler l/abnormal. [facility] CenterIn[facility] [id number] 20:12:00 Test Item Value Reference Range Interpretation Comments Alk Phos (test code = Alk Phos) 74 39-136 [facility] CenterIn[facility] [id number] 20:12:00 Test Item Value Reference Range Interpretation Comments Bili Total (test code = Bili Total) 0.2 0.2-1.3 [facility] CenterIn[facility] [id number] 20:12:00 Test Item Value Reference Range Interpretation Comments B/C Ratio (test code = B/C Ratio) 17 1 6-25 [facility] CenterIn[facility] [id number] 20:12:00 Test Item Value Reference Range Interpretation Comments Globulin (test code = Globulin) 4.0 2.7-4.2 [facility] CenterIn[facility] [id number] 20:12:00 Test Item Value Reference Range Interpretation Comments A/G Ratio (test code = A/G Ratio) 0.9 1 0.7-1.6 [place] [address]-03-09 20:12:00 Test Item Value Reference Range Interpretation Comments PT (test code = PT) 12.6 s 12.0-14.7 [place] [address]-03-09 20:12:00 Test Item Value Reference Range Interpretation Comments INR (test code = INR) 0.94 1 0.85-1.17 [facility]
[2022-06-02] MEDS ORDERED: MORPHINE 4 MG/ML SYR ONE ×2 (20:43→23:50)
[2022-06-02] MEDS ORDERED: ONDANSETRON 4 MG/2 ML VIAL ONE (20:43)
[2022-06-02 20:55] LABS: Absolute Lymphocytes (CBC) 3.4 K/uL (0.7-4.9); Hematocrit 40.1 % (36.0-45.0); Lymphocytes % 30.1 % (15.3-44.8); MCV 88.6 fL (80-100); MPV 8.3 fL (7.6-11.3); RBC Red Blood Cell Count 4.53 M/uL (3.86-4.86)
[2022-06-02 20:56] LABS: Urine Blood Trace-intact (Negative); Urine Glucose 2+ (Negative); Urine Protein 1+ (Negative); Urine Specific Gravity 1.015 (1.005-1.030); Urine pH 5.5 (5.0-7.0)
[2022-06-02 21:11] LABS: Albumin 3.5 g/dL (3.4-5.0); Bilirubin Total 0.1 mg/dL (0.2-1.0); Potassium 3.4 mmol/L (3.5-5.1); Protein, Total 7.4 g/dL (6.4-8.2)
[2022-06-02 21:25] LABS: Urine RBC <5 /HPF (None Seen); Urine WBC Clump Rare /HPF (None Seen)
[2022-06-02] MEDS ORDERED: CEFTRIAXONE 1000 MG/VIAL ONE (22:05)
--- NOTE | 2022-06-02 22:45 | RAD REPORT ---
EXAM DESCRIPTION: CT - Stone Protocol - 06/02/2022 10:35 pm CLINICAL HISTORY: LOW BACK PAIN COMPARISON: Abdomen Pelvis W Contrast dated 05/14/2022 TECHNIQUE: Axial 3 mm thick images were obtained without oral or IV contrast. The byjta-gs-zdgz span s the entirety of the system including uppermost abdomen and lung bases. All CT scans are performed using dose optimization technique as appropriate and may include automated exposure control or mA/KV adjustment according to patient size. FINDINGS: No hydronephrosis is present and no obstructing ureteral calculi. No suspicious renal mass es. Isodense masses and pyelonephritis are not excluded on a stone protocol CT scan. No significant a drenal finding. No urinary bladder suspicious finding. Uterus is absent. Ovaries are absent or atroph ic. Numerous surgical clips are seen in the bilateral adnexa. Imaged portions of the liver, spleen and pancreas show no suspicious findings on non-contrast imaging . Gallbladder is absent. No abnormal biliary tree dilatation. No suspicious bowel findings. No appendicitis. No hernia, mass or bulky lymphadenopathy noted. No free air, free fluid or inflammatory stranding. No significant bony abnormality. IMPRESSION: Unremarkable noncontrast CT abdomen and pelvis study. Isodense masses and pyelonephritis are not excluded on stone protocol technique. Above detailed findings are not significantly different from the May 14 study.
--- NOTE | 2022-06-02 23:39 | ER ---
Nurse's Notes [facility] Name: Charlotte Ruvalcaba Age: 57 yrs Sex: Female : 1965 Arrival Date: 06/02/2022 Time: 18:42 Bed Treatment Private MD: Naseem Sanchez E Diagnosis: Dorsalgia, unspecified;UTI/ Urinary tract infection, site not specified Presentation: 06/02 19:16 Chief complaint: Patient states: I am having really bad lower back pain, every time I bm7 walk I feel like something is pulling. I can not get in to see the Doctor until next week. My head is hurting really bad too and my blood sugar is high. It was 298 at home. Coronavirus screen: At this time, the client does not indicate any symptoms associated with coronavirus-19. Ebola Screen: No symptoms or risks identified at this time. Initial Sepsis Screen: Does the patient meet any 2 criteria? No. Patient's initial sepsis screen is negative. Does the patient have a suspected source of infection? No. Patient's initial sepsis screen is negative. Risk Assessment: Do you want to hurt yourself or someone else? Patient reports no desire to harm self or others. Onset of symptoms is unknown. 19:16 Method Of Arrival: Ambulatory bm7 19:16 Acuity: RASHAD 3 bm7 Triage Assessment: 19:18 General: Appears in no apparent distress. uncomfortable, Behavior is calm, cooperative, bm7 appropriate for age. Pain: Complains of pain in low back area and left low back Pain radiates to right leg and left leg. EENT: No deficits noted. No signs and/or symptoms were reported regarding the EENT system. Neuro: No deficits noted. Cardiovascular: No deficits noted. Respiratory: No deficits noted. GI: No deficits noted. No signs and/or symptoms were reported involving the gastrointestinal system. : No deficits noted. No signs and/or symptoms were reported regarding the genitourinary system. Derm: No deficits noted. No signs and/or symptoms reported regarding the dermatologic system. Musculoskeletal: Circulation, motion, and sensation intact. Capillary refill < 3 seconds, Reports pain in back. Historical: - Allergies: 19:18 NKDA; bm7 - Home Meds: 19:18 albuterol sulfate 90 mcg/actuation Inhl HFAA 2 puffs twice daily as needed [Active]; bm7 Januvia 50 mg Oral tab 1 tab once daily [Active]; sertraline 50 mg Oral tab 1 tab once daily [Active]; trazodone 50 mg Oral tab 1 tab once daily [Active]; omeprazole 40 mg Oral cpDR 1 cap once daily [Active]; Trulance 3 mg Oral tab 1 tab [Active]; simvastatin 10 mg Oral tab 1 tab once daily [Active]; metformin 500 mg Oral tab 1 tab [Active]; losartan-hydrochlorothiazide 100-25 mg Oral tab 1 tab once daily [Active]; levothyroxine 50 mcg cap 1 cap once daily [Active]; gabapentin 600 mg Oral tab 1 tab 3 times per day [Active]; amlodipine 5 mg tab 1 tab once daily [Active]; - PMHx: 19:18 Asthma; breast cancer; COPD; Diabetes - IDDM; Gout; Hypertension; Hypothyroidism; bm7 - PSHx: 19:18 back sx; bm7 - Immunization history:: Adult Immunizations up to date, Client reports receiving the 2nd dose of the Covid vaccine, Client reports receiving the 1st dose of the Covid vaccine. - Social history:: Smoking status: Patient denies any tobacco usage or history of. Screenin:23 Abuse screen: Denies threats or abuse. Nutritional screening: No deficits noted. bm7 Tuberculosis screening: No symptoms or risk factors identified. Fall Risk None identified. Assessment: 19:23 Reassessment: No changes from previously documented assessment. bm7 Vital Signs: 19:16 BP 109 / 83; Pulse 82; Resp 18; Temp 98.1(TE); Pulse Ox 98% on R/A; Weight 86.18 kg bm7 (R); Height 5 ft. 4 in. (162.56 cm); Pain 10/10; 19:16 Body Mass Index 32.61 (86.18 kg, 162.56 cm) bm7 ED Course: 18:42 Patient arrived in ED. rg4 18:42 Naseem Sanchez MD is Private Physician. rg4 19:04 Efren Addison PA is PHCP. cp 19:04 Corina Zambrano MD is Attending Physician. cp 19:18 Triage completed. bm7 19:18 Arm band placed on left wrist. bm7 19:23 Dari Moya, RN is Primary Nurse. bm7 19:23 Patient has correct armband on for positive identification. Bed in low position. Call bm7 light in reach. Client placed on continuous cardiac and pulse oximetry monitoring. NIBP monitoring applied. Warm blanket given. 19:23 No provider procedures requiring assistance completed. Patient maintains SpO2 bm7 saturation greater than 95% on room air. 20:36 Inserted saline lock: 22 gauge in left antecubital area, using aseptic technique. Blood ds4 collected. 22:36 Stone Protocol In Process Unspecified. EDMS 22:47 Patient moved to MO. bm7 23:59 IV discontinued, intact, bleeding controlled, No redness/swelling at site. ld1 Administered Medications: 20:55 Drug: Zofran (Ondansetron) 4 mg Route: IVP; Site: left antecubital; bm7 20:55 Drug: morphine 4 mg Route: IVP; Infused Over: 4 mins; Site: left antecubital; bm7 22:30 Drug: Rocephin (cefTRIAXone) 1 grams Route: IV; Rate: calculated rate; Site: left ld1 antecubital; 23:59 Not Given (Patient Refused): Baclofen 10 mg PO once ld1 23:59 Not Given (Patient Refused): morphine 4 mg IVP once over 4 mins ld1 Medication: 19:23 VIS not applicable for this client. bm7 Point of Care Testing: Blood Glucose: 19:52 Blood Glucose: 263 mg/dL; bm7 Ranges: Outcome: 23:38 Discharge ordered by MD. cp 23:59 Discharged to home ambulatory. ld1 23:59 Condition: stable 23:59 Discharge instructions given to patient, Instructed on discharge instructions, follow up and referral plans. medication usage, Demonstrated understanding of instructions, follow-up care, medications, Prescriptions given X 2. 23:59 Patient left the ED. ld1 Signatures: Dispatcher [employer] EDCT Phu Sheikh ds4 Efren Addison PA PA cp Garcia, Rubi rg4 Dari Moya, ALOK RN bm7 Lakeshia Rapp RN RN ld1 Corrections: (The following items were deleted from the chart) 19:19 19:18 PMHx: chronic pain, sees pain doctor; bm7 bm7
--- NOTE | 2022-06-02 23:39 | EDPHYS ---
Physician Documentation [facility] Name: Charlotte Ruvalcaba Age: 57 yrs Sex: Female : 1965 Arrival Date: 06/02/2022 Time: 18:42 Bed Treatment Private MD: Naseem Sanchez E ED Physician Corina Zambrano HPI: 06/02 19:45 This 57 yrs old Black Female presents to ER via Ambulatory with complaints of Back cp Pain, High Blood Sugar. 19:45 The patient presents with pain that is acute, with no known mechanism of injury. The cp symptoms are located in the low back. 19:45 Onset: The symptoms/episode began/occurred gradually, and became worse today. The pain cp radiates to the buttocks. 19:45 Associated signs and symptoms: Pertinent positives: headache, elevated blood glucose, cp Pertinent negatives: abdominal pain, chest pain, constipation, fever, hematuria, incontinence, numbness, urinary retention, vomiting, weakness. The problem was sustained from unknown cause. Modifying factors: the patient symptoms are aggravated by any movement. Severity of symptoms: in the emergency department the symptoms are unchanged, despite home interventions. Historical: - Allergies: 19:18 NKDA; bm7 - Home Meds: 19:18 albuterol sulfate 90 mcg/actuation Inhl HFAA 2 puffs twice daily as needed [Active]; bm7 Januvia 50 mg Oral tab 1 tab once daily [Active]; sertraline 50 mg Oral tab 1 tab once daily [Active]; trazodone 50 mg Oral tab 1 tab once daily [Active]; omeprazole 40 mg Oral cpDR 1 cap once daily [Active]; Trulance 3 mg Oral tab 1 tab [Active]; simvastatin 10 mg Oral tab 1 tab once daily [Active]; metformin 500 mg Oral tab 1 tab [Active]; losartan-hydrochlorothiazide 100-25 mg Oral tab 1 tab once daily [Active]; levothyroxine 50 mcg cap 1 cap once daily [Active]; gabapentin 600 mg Oral tab 1 tab 3 times per day [Active]; amlodipine 5 mg tab 1 tab once daily [Active]; - PMHx: 19:18 Asthma; breast cancer; COPD; Diabetes - IDDM; Gout; Hypertension; Hypothyroidism; bm7 - PSHx: 19:18 back sx; bm7 - Immunization history:: Adult Immunizations up to date, Client reports receiving the 2nd dose of the Covid vaccine, Client reports receiving the 1st dose of the Covid vaccine. - Social history:: Smoking status: Patient denies any tobacco usage or history of. ROS: 19:50 Constitutional: Negative for body aches, chills, fever, poor PO intake. cp 19:50 Eyes: Negative for injury, pain, redness, and discharge. cp 19:50 Neck: Negative for pain with movement, pain at rest, stiffness, tenderness. 19:50 Cardiovascular: Negative for chest pain, edema, palpitations. 19:50 Respiratory: Negative for cough, shortness of breath, wheezing. 19:50 Abdomen/GI: Negative for abdominal pain, vomiting, diarrhea, constipation, anorexia, black/tarry stool, rectal bleeding, bowel incontinence. 19:50 Back: Positive for pain at rest, pain with movement, of the low back area and mid back area, painful ROM, Negative for injury or acute deformity. 19:50 : Negative for urinary symptoms, hematuria, pelvic pain, bladder incontinence. 19:50 Neuro: Negative for altered mental status, dizziness, headache, numbness, weakness. 19:50 All other systems are negative. Exam: 20:00 Constitutional: The patient appears in no acute distress, alert, awake, cp non-diaphoretic, non-toxic, well developed, well nourished, in obvious pain, uncomfortable. 20:00 Head/Face: Normocephalic, atraumatic. cp 20:00 Eyes: Periorbital structures: appear normal, Conjunctiva: normal, no exudate, no injection, Sclera: no appreciated abnormality, Lids and lashes: appear normal, bilaterally. 20:00 ENT: External ear(s): are unremarkable, Nose: is normal, Mouth: Lips: moist, Oral mucosa: pink and intact, moist, Posterior pharynx: Airway: no evidence of obstruction, patent. 20:00 Neck: ROM/movement: is normal, is supple, without pain, no range of motions limitations, no nuchal rigidity. 20:00 Chest/axilla: Inspection: normal, Palpation: is normal, no crepitus, no tenderness. 20:00 Cardiovascular: Rate: normal, Rhythm: regular, Edema: is not appreciated, JVD: is not appreciated. 20:00 Respiratory: the patient does not display signs of respiratory distress, Respirations: normal, no use of accessory muscles, no retractions, labored breathing, is not present, Breath sounds: are clear throughout, no decreased breath sounds, no stridor, no wheezing. 20:00 Abdomen/GI: Inspection: abdomen appears normal, Bowel sounds: active, all quadrants, Palpation: abdomen is soft and non-tender, in all quadrants. 20:00 Back: pain, that is severe, of the low back area and mid back area, ROM is painful, with all movement, Straight leg raises: of both lower extremities does not illicit pain. 20:00 Skin: cellulitis, is not appreciated, no rash present. 20:00 Neuro: Orientation: to person, place \T\ time. Mentation: is normal, Motor: moves all fours, strength is normal, Sensation: is normal, Deep tendon reflexes are 2+ (normal) in the right patellar, right Achilles, left patellar and left Achilles. Vital Signs: 19:16 BP 109 / 83; Pulse 82; Resp 18; Temp 98.1(TE); Pulse Ox 98% on R/A; Weight 86.18 kg bm7 (R); Height 5 ft. 4 in. (162.56 cm); Pain 10/10; 19:16 Body Mass Index 32.61 (86.18 kg, 162.56 cm) bm7 MDM: 19:29 Patient medically screened. cp 21:00 Differential diagnosis: Cholelithiasis Pyelonephritis ruptured disc, Ureterolithiasis. cp 23:38 Data reviewed: vital signs, nurses notes, lab test result(s), radiologic studies, CT cp scan. 23:38 Counseling: I had a detailed discussion with the patient and/or guardian regarding: the cp historical points, exam findings, and any diagnostic results supporting the discharge/admit diagnosis, lab results, radiology results, the need for outpatient follow up, a family practitioner, to return to the emergency department if symptoms worsen or persist or if there are any questions or concerns that arise at home. 23:38 Response to treatment: the patient's symptoms have markedly improved after treatment, cp and as a result, I will discharge patient. ED course: VSS. Pain improved with meds. Patient reports having prescribed Hydrocodone at home for pain. 06/02 20:01 Order name: Glucose, Ancillary Testing; Complete Time: 20:05 [facility] 06/02 20:22 Order name: CBC with Diff; Complete Time: 21:11 06/02 23:10 Interpretation: Abnormal: WBC 11.20. 06/02 20:22 Order name: CMP; Complete Time: 21:13 06/02 21:14 Interpretation: Normal except: K 3.4; GLUC 227; AST 14; BILIT 0.1; GLOB 3.9; A/G 0.9. 06/02 20:22 Order name: Lipase; Complete Time: 21:13 06/02 20:22 Order name: Urine Microscopic Only; Complete Time: 21:29 06/02 21:29 Interpretation: Abnormal: UWBC >50. 06/02 20:56 Order name: Urine Dipstick-Ancillary; Complete Time: 21:11 [facility] 06/02 21:14 Interpretation: Normal except: UGLUC 2+; UBLD Trace-intact; UPROT 1+; UESTR Trace. 06/02 21:30 Order name: Urine Culture [facility] 06/02 21:39 Order name: Stone Protocol; Complete Time: 22:48 [facility] 06/02 19:29 Order name: Accucheck Blood Glucose; Complete Time: 19:54 06/02 20:22 Order name: IV Saline Lock; Complete Time: 20:36 06/02 20:22 Order name: Labs collected and sent; Complete Time: 20:36 06/02 20:22 Order name: Urine Dipstick-Ancillary (obtain specimen); Complete Time: 21:22 cp Administered Medications: 20:55 Drug: Zofran (Ondansetron) 4 mg Route: IVP; Site: left antecubital; bm7 20:55 Drug: morphine 4 mg Route: IVP; Infused Over: 4 mins; Site: left antecubital; bm7 22:30 Drug: Rocephin (cefTRIAXone) 1 grams Route: IV; Rate: calculated rate; Site: left ld1 antecubital; 23:59 Not Given (Patient Refused): Baclofen 10 mg PO once ld1 23:59 Not Given (Patient Refused): morphine 4 mg IVP once over 4 mins ld1 Point of Care Testing: Blood Glucose: 19:52 Blood Glucose: 263 mg/dL; bm7 Ranges: Critical Glucose Levels:Adult <50 mg/dl or >400 mg/dl <40 mg/dl or >180 mg/dl Disposition Summary: 06/02/22 23:38 Discharge Ordered Location: Home cp Problem: new cp Symptoms: have improved cp Condition: Stable cp Diagnosis - Dorsalgia, unspecified cp - UTI/ Urinary tract infection, site not specified cp Followup: cp - With: Private Physician - When: 1 - 2 days - Reason: Recheck today's complaints Discharge Instructions: - Discharge Summary Sheet cp - Chronic Back Pain cp - Urinary Tract Infection, Adult cp Forms: - Medication Reconciliation Form cp - Thank You Letter cp - Antibiotic Education cp - Prescription Opioid Use cp Prescriptions: - Baclofen 10 mg Oral Tablet - take 1 tablet by ORAL route 3 times per day; 20 tablet; Refills: 0, Product cp Selection Permitted - Diclofenac Sodium 75 mg Oral Tablet Sustained Release - take 1 tablet by ORAL route 2 times per day; 30 tablet; Refills: 0, Product cp Selection Permitted Signatures: Dispatcher [employer] EDMS Efren Addison PA PA cp Dari Moya RN RN bm7 Lakeshia Rapp RN RN ld1 Corrections: (The following items were deleted from the chart) 19:19 19:18 PMHx: chronic pain, sees pain doctor; bmChris [email or web address] 06/03 23:49 06/02 19:45 Associated signs and symptoms: Pertinent positives: headache, Pertinent cp negatives: abdominal pain, chest pain, constipation, fever, hematuria, incontinence, numbness, urinary retention, vomiting, weakness, cp
== END 2022-06-02 23:59 | disposition home or self-care (01) ==
LOC: ER 18:38
DX: M54.9 Dorsalgia, unspecified (principal); N39.0 Urinary tract infection, site not specified; I10 Essential (primary) hypertension; E11.9 Type 2 diabetes mellitus without complications; Z79.4 Long term (current) use of insulin
CPT/HCPCS: 87088; 85025; 87086; 36415; 82947; 83690; 80053; 76377; 74176; J2405; 81003; 81015; 96374; 96375; 99285

== ENCOUNTER 2022-07-04 18:29 | Emergency (ER) | payer OTHER ==
--- OUTSIDE RECORDS SUMMARY | 2022-07-04 18:44 | XMS REPORT | Continuity of Care Document ---
:1965 Author Organization [facility] t Address [address] [place] [address] Care Team Providers Name Role Phone Naseem Sanchez Primary Care Physician Baljeet De Anda Attending Clinician Unavailable GIANNA ROBERTS Attending Clinician Unavailable Vira Guerrero Attending Clinician Unavailable Tawana Ramirez Attending Clinician Unavailable PEE HANCOCK Attending Clinician Unavailable PRADIP YUNG Attending Clinician Unavailable Pradip Yung MD Attending Clinician ZACKARY HAYWOOD Attending Clinician Unavailable Zackary Haywood MD Attending Clinician Armond Montoya MD Attending Clinician [phone] ALE FOREMAN Attending Clinician Unavailable Ale Banda Attending Clinician PRICILLA DOOLEY Attending Clinician Unavailable Pricilla Nick Attending Clinician Doctor Unassigned, [place] Attending Clinician Unavailable EVANGELISTA ALBRECHT Attending Clinician Unavailable Evangelista Lama Attending Clinician Nurse, [facility] Attending Clinician Unavailable Lisa Dougherty Attending Clinician LISA MARR Attending Clinician Unavailable Pee Hancock MD Attending Clinician RADIOLOGY Attending Clinician Unavailable Alireza Ceja CRNA Attending Clinician Royce Turcios MD Attending Clinician Pob, [facility] Attending Clinician Unavailable Chanel Gupta DO Attending Clinician Marilia Dooley MD Attending Clinician BRITTNI KELLY Attending Clinician Unavailable Richard JONES Brittni Attending Clinician BRITTANEY DE LEON Attending Clinician Unavailable RICARDO VEGA Attending Clinician Unavailable Ricardo Su Attending Clinician Josh Bennett Attending Clinician ALISTAIR CASTELLANOS Attending Clinician Unavailable Josh Bennett MD Attending Clinician Kendrick Tolliver DO Attending Clinician Armond Siu APRN Attending Clinician Francisco Andrea Attending Clinician Unavailable Royce Rivers MD Attending Clinician Gilmer Hurst Attending Clinician Sadia Farr I Attending Clinician SADIA FARR I Attending Clinician Unavailable PEE HANCOCK Admitting Clinician Unavailable PRADIP YUNG Admitting Clinician Unavailable ZACKARY HAYWOOD Admitting Clinician Unavailable Pee Hancock MD Admitting Clinician Referred, Self Admitting Clinician Unavailable Sadia Farr I Admitting Clinician SADIA FARR I Admitting Clinician Unavailable Payers Payer Name Policy Type Policy Number Effective Date Expiration Date Klarissa kemp [facility] [id number] 2015 00:00:00 [facility] [id number] 2016 MEDICAID 00:00:00 [place]ID [place] [id number] 2022 00:00:00 Problems Condition Condition Condition Status Onset Resolution Last Treating Co mments Source Name Details Category Date Date Treatment Clinician Date DX: DX: Diagnosis Active 2022-02-10 Mem oria R11.0=NAUS R11.0=NAUS 23 10:13:00 l EA/R10.12= EA/R10.12= 00:00: He rmann LEFT UPPER LEFT UPPER 00 QUADR QUADR Active 01/27/2022 [facility] Ganglion Ganglion Disease Active Overview: Un donaldo cyst of cyst of 11-05 Formattin ity o f finger finger 00:00: g of this [place] 00 note Medical might be Branch different from the original. Added automatic ally from request for surgery [id number] SACROLIAC SACROLIAC Diagnosis Active 2020-092021-06-25 Memoria LT, MAGALIE LT, MAGALIE 0-05 13:48:00 l HIP HIP 08:00: Solomon BURSITIS, BURSITIS, 00 IT BAND IT BAND Active 06/11/2021 [facility] M53.3 - M53.3 - Diagnosis Active 2021-04-03 Memoria SACROCOCCY SACROCOCCY 03-05 07:05:00 l GEAL GEAL 00:01: [place] DISORDERS, DISORDERS, 00 NOT NOT Active 03/05/2021 OPID [facility] Disease Active [place] trochanter trochanter 02-27 [...] Added automatic ally from request for surgery [id number] Painful Painful Disease Active Univers orthopaedi orthopaedi 04-12 [place] c hardware [place] I65.22 I65.22 Diagnosis Active 2019-11-24 Me moria Active 11-07 21:49:00 l 11/08/2019 00:00: Andrei kaur 00 [facility] N/A N/A Diagnosis Active 2019-11-16 Mem oria Active 11-07 09:55:00 l 11/08/2019 00:00: Andrei kaur 00 [facility] Degenerati Degenerati Disease Active 2017-09 M ethodi on of on of 09-15 st interverte interverte 00:00: Ho spita bral disc bral disc 00 l of of lumbosacra lumbosacra l region l region Thumb Thumb Disease Active Univers pain, left pain, left 01-13 it y of 00:00: [place] 00 Medical Branch Total knee Total knee Disease Active U nivers replacemen replacemen 5-16 it y of t status t status 00:00: [place] [facility] Right knee Right knee Disease Active U nivers pain pain 5-06 ity of 00:00: [place] [facility] Right knee Right knee Disease Active U nivers pain pain 5-06 ity of 00:00: [place] 00 Medical Branch Lump or Lump or Disease Active Univers mass in mass in -10 ity of breast breast 00:00: [place] 00 Medical Branch 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 ICD10 Diagnosis Term Movable [employer] Obesity Obesity Disease Active Univers (BMI (BMI ity of 30-39.9) 30-39.9) [facility] Uncontroll Uncontroll Problem Active C ommon ed type 2 ed type 2 Spir it diabetes diabetes - [facility]I mellitus mellitus St with with [facility] hyperglyce hyperglyce Me dical [facility] Anxiety Anxiety Problem Active Common [facility] Asthma, Asthma, Problem Active Common unspecifie unspecifie Sp yaron d asthma d asthma - [facility] severity, severity, St unspecifie unspecifie Verenice kes d whether d whether Medi cipriano complicate complicate Ce nter d, d, unspecifie unspecifie d whether d whether persistent persistent Diabetes Diabetes Problem Active Commo n [facility] Swelling Swelling Problem Active Commo n [facility] High blood High blood Problem Active C ommon pressure pressure [facility] Sinus Sinus Problem Active Common problem problem [facility] High High Problem Active Common cholestero cholestero Sp yaron l l [facility] Depression Depression Problem Active C ommon with with Spirit anxiety anxiety - [facility] Acquired Acquired Problem Active Commo n hypothyroi hypothyroi Sp yaron dism dism [facility] Chronic Chronic Problem Active Common pain pain Spirit syndrome syndrome - [facility] Polyarthra Polyarthra Problem Active C ommon lgia lgia [facility] Gastroesop Gastroesop Problem Active C ommon hageal hageal Spirit reflux reflux - [facility] disease, disease, St esophagiti esophagiti Verenice kes s presence s presence Me dical not not Center specified specified Chronic Chronic Problem Active Common obstructiv obstructiv Sp yaron e e - [facility] pulmonary pulmonary St disease, disease, [facility] unspecifie unspecifie Me dical d COPD d COPD Center type type Abnormal Abnormal Problem Active Commo n urine odor urine odor Sp yaron [facility] Hoarseness Hoarseness Problem Active C ommon [facility] Hyperlipid Hyperlipid Problem Active C ommon emia, emia, Spirit unspecifie unspecifie - [facility] d d St hyperlipid hyperlipid Verenice kes emia type emia type [facility]i [facility] Center Sore Sore Problem Active Common throat throat [facility] Non-intrac Non-intrac Problem Active C ommon table table Spirit vomiting vomiting - [facility] with with St nausea, nausea, [facility] unspecifie unspecifie Me dical d vomiting d vomiting Ce nter type type Chest Chest Problem Active Common tightness tightness Spir [facility] Exposure Exposure Problem Active Commo n to mold to mold [facility] Wheezing Wheezing Problem Active Commo n [facility] Shortness Shortness Problem Active Com mon of breath of breath Spir [facility] Itching Itching Problem Active Common [facility] Muscle Muscle Problem Active Common cramping cramping [facility] Right leg Right leg Problem Active Com mon pain pain [facility] Acute Acute Problem Active Common right-side right-side Sp yaron d thoracic d thoracic - [facility] back pain back pain [facility] Low back Low back Problem Active Commo n pain pain [facility] Other Other Problem Active Common chronic chronic [facility] pain [facility] Lumbago Lumbago Problem Active Common with with Spirit sciatica, sciatica, - CH I right side right side [facility] Status Status Problem Active Common post fall post fall Spir [facility] Dizziness Dizziness Problem Active Com mon [facility] Imbalance Imbalance Problem Active Com mon [facility] Difficulty Difficulty Problem Active C ommon sleeping sleeping [facility] Acute Acute Problem Active Common stress stress Spirit reaction reaction [facility] 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 - [facility] carotid carotid arteries [facility] Stenosis Stenosis Problem Active Commo n of left of left Spirit carotid carotid - [facility] artery artery [facility] Status Status Problem Active Common post CVA post CVA [facility] Stenosis Stenosis Problem Active Commo n of right of right [facility] carotid carotid - [facility] artery artery [facility] Occlusion Occlusion Problem 2019-11-23 Memoria and and 21:46:33 l stenosis stenosis Andrei n of left of left carotid carotid artery artery 11/23/2019 [place] Carotid Carotid Problem Active 2021-07-27 Me moria artery artery 01:20:12 l stenosis stenosis Andrei n (disorder) (disorder) Active Problem 07/27/2021 Medical [facility] her Neuro, OPID Muir,[facility], [facility] Carpal Carpal Problem Active 2021-07-27 Brennen oscar 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 Andrei n (disorder) (disorder) Active Problem 07/27/2021 Medical Group,[facility] her Neuro, OPID Muir,[facility], [facility] Diabetes Diabetes Problem Active 2021-07-27 Memoria mellitus mellitus 01:20:12 l (disorder) (disorder) He rmann Active Problem 07/27/2021 Medical Group,[facility] her Neuro, OPID Muir,[facility], [facility] Diabetes Diabetes Problem Active 2021-07-27 Memoria mellitus mellitus 01:20:12 l type 2 type 2 Solomon (disorder) (disorder) Active Problem 07/27/2021 Medical Group,[facility] her Neuro, OPID Muir,[facility], [facility] Disorder Disorder Problem Active 2021-07-27 Memoria of carotid of carotid 01:20:12 l artery artery [place] (disorder) (disorder) Active Problem 07/27/2021 Medical Group,[facility] her Neuro, OPID Muir,[facility], [facility] Hypertensi Problem Active 2021-07-27 M emoria ve Hypertensi 01:20:12 l disorder, ve Solomon systemic disorder, arterial systemic (disorder) arterial (disorder) Active Problem 07/27/2021 Medical Group,[facility] her Neuro, OPID Muir,[facility], [facility] Hyperlipid Hyperlipi Problem Active 2021-07-27 Memoria emia demia 01:20:12 l (disorder) (disorder) He rmann Active Problem 07/27/2021 Medical Group,[facility] her Neuro, OPID Muir,[facility], [facility] Hypothyroi Hypothyro Problem Active 2021-07-27 Memoria dism idism 01:20:12 l (disorder) (disorder) He rmann Active Problem 07/27/2021 Medical Group,[facility] her Neuro,[facility] CHARLEEN Carrasco,M [facility], [facility] Simple Simple Problem Active 2021-07-27 Brennen oscar obesity obesity 01:20:12 l (disorder) (disorder) He rmann Active Problem 07/27/2021 Medical Group,[facility] her Neuro,[facility] CHARLEEN [place],M [facility], [facility] OCCLUSION OCCLUSION Diagnosis Active 2019-11-24 Memoria AND AND 21:49:00 l STENOSIS STENOSIS Andrei n OF LEFT OF LEFT CAROTID A CAROTID A Active [facility] Allergies, Adverse Reactions, Alerts Allergy Allergy Status Severity Reaction(s) Onset Inactive Treating Comm ents Source Name Type Date Date Clinician NO KNOWN Drug Active Univers ALLERGIE Class ity of S [facility] Family History Family Member Diagnosis Comments Start Date Stop Date Source Natural father [facility] Natural mother COPD [facility] Natural mother Hyperlipidemia Method [facility] Natural mother Hypertension [facility] Social History Social Habit Start Date Stop Date Quantity Comments Source History of tobacco Cigarette Smoker [facility] use [facility] Exposure to 2022-04-26 2022-05-06 Not sure University SARS-CoV-2 (event) 00:00:00 10:12:00 [facility] Tobacco use and 2022-05-02 2022-05-02 Smokeless Universit y of exposure 00:00:00 00:00:00 tobacco non-user [facility] Social History 2019-11-14 2019-11-14 [facility] 21:12:20 21:12:20 Alcohol intake 2018-07-19 2018-07-19 Current Religious 00:00:00 00:00:00 non-drinker of Hospital alcohol (finding) Cigarettes smoked 2018-07-15 2018-07-[address] current (pack per 00:00:00 00:00:00 Hospita l day) - Reported Sex Ass[birth year] At [birth year] Religious 00:00:00 00:00:00 Hospital Smoking Status Start Date Stop Date Source Never smoked tobacco [facility] Ex-smoker 2018-07-15 00:00:00 2018-07-15 00:00:00 [facility] Medications Ordered Filled Start Stop Current Ordering Indication Dosage Frequency Signature Comments Components Source Medication Medication Date Date Medication? Clinician (SIG) Name Name barium 2021-09 No [id number] 355mL 355 mL, Un donaldo sulfate 0-26 - Oral, ity of (LIQUID E-Z 16:15: 15:00 ONCE, 1 Te edgardo MILNER) 60 % 00 :00 dose, On Medi cipriano (w/v) oral Wed Branch suspension 07/02/22 355 mL at 1115, Routine diazePAM 2021-09 Yes [id number] 2mg Take 1 Uni vers (VALIUM) 2 0-23 tablet by ity of mg tablet 00:00: mouth 3 [place] (three) Medical times [place] daily as needed for Muscle Spasms. diazePAM 2021-09 Yes [id number] 2mg Take 1 Uni vers (VALIUM) 2 0-23 tablet by ity of mg tablet 00:00: mouth 3 (three) Medical times [place] daily as needed for Muscle Spasms. methylPREDN Yes [id number] 84mg Take 21 Univers ISolone 8-26 [id number] tablets by ity of (MEDROL, 00:00: mouth [place] ARLENE,) 4 mg 00 SEE-INSTRU Med ical tablets CTIONS. Branch follow package directions cyclobenzap Yes [id number] 10mg Take 1 Univers rine 10 mg 8-26 [id number] tablet by it y of tablet 00:00: mouth in [place] the Medical morning Branch and 1 tablet at noon and 1 tablet in the evening. methylPREDN Yes [id number] 84mg Take 21 Univers ISolone 8-26 [id number] tablets by ity of (MEDROL, 00:00: mouth [place] ARLENE,) 4 mg 00 SEE-INSTRU Med ical tablets CTIONS. Branch follow package directions cyclobenzap Yes [id number] 10mg Take 1 Univers rine 10 mg 8-26 [id number] tablet by it y of tablet 00:00: mouth in [place] the Medical morning Branch and 1 tablet at noon and 1 tablet in the evening. methylPREDN 0 Yes [id number] 84mg Take 21 Univers ISolone 8-26 [id number] tablets by ity of (MEDROL, 00:00: mouth [place] ARLENE,) 4 mg 00 SEE-INSTRU Med ical tablets CTIONS. Branch follow package directions cyclobenzap Yes [id number] 10mg Take 1 Univers rine 10 mg 8-26 [id number] tablet by it y of tablet 00:00: mouth in [place] 00 the Medical morning Branch and 1 tablet at noon and 1 tablet in the evening. methylPREDN 2021-0 Yes [id number] 84mg Take 21 Univers ISolone 8-26 [id number] tablets by ity of (MEDROL, 00:00: mouth [place] ARLENE,) 4 mg 00 SEE-INSTRU Med ical tablets CTIONS. Branch follow package directions cyclobenzap 2021-0 Yes [id number] 10mg Take 1 Univers rine 10 mg 8-26 [id number] tablet by it y of tablet 00:00: mouth in [place] 00 the Medical morning Branch and 1 tablet at noon and 1 tablet in the evening. ondansetron 2021-0 Yes [id number] 4mg Take 1 Univers 4 mg 6-04 tablet by ity of disintegrat 00:00: mouth [place] ing tablet 00 every 12 Medic al (twelve) Branch hours as needed for Nausea and Vomiting (N/V). ondansetron 2021-0 Yes [id number] 4mg Take 1 Univers 4 mg 6-04 tablet by ity of disintegrat 00:00: mouth [place] ing tablet 00 every 12 Medic al (twelve) Branch hours as needed for Nausea and Vomiting (N/V). ondansetron 2021-0 Yes [id number] 4mg Take 1 Univers 4 mg 6-04 tablet by ity of disintegrat 00:00: mouth [place] ing tablet 00 every 12 Medic al (twelve) Branch hours as needed for Nausea and Vomiting (N/V). ondansetron 2021-0 Yes [id number] 4mg Take 1 Univers 4 mg 6-04 tablet by ity of disintegrat 00:00: mouth [place] ing tablet 00 every 12 Medic al (twelve) Branch hours as needed for Nausea and Vomiting (N/V). ondansetron 2021-0 Yes [id number] 4mg Take 1 Univers 4 mg 6-04 tablet by ity of disintegrat 00:00: mouth [place] ing tablet 00 every 12 Medic al (twelve) Branch hours as needed for Nausea and Vomiting (N/V). dicyclomine 2021-0 Yes [id number] 20mg Take 1 Univers 20 mg 3-29 tablet by ity of tablet 00:00: mouth 4 [place] 00 (four) Medical times Branch daily. ondansetron 2022-0 Yes [id number] 4mg Take 1 Univers 4 mg 3-29 tablet by ity of disintegrat 00:00: mouth [place] ing tablet 00 every 4 Medica l (four) Branch hours as needed for Nausea and Vomiting (N/V). dicyclomine 2022-0 Yes [id number] 20mg Take 1 Univers 20 mg 3-29 tablet by ity of tablet 00:00: mouth 4 [place] 00 (four) Medical times Branch daily. ondansetron 2022-0 Yes [id number] 4mg Take 1 Univers 4 mg 3-29 tablet by ity of disintegrat 00:00: mouth [place] ing tablet 00 every 4 Medica l (four) Branch hours as needed for Nausea and Vomiting (N/V). dicyclomine 2022-0 Yes [id number] 20mg Take 1 Univers 20 mg 3-29 tablet by ity of tablet 00:00: mouth 4 [place] 00 (four) Medical times Branch daily. ondansetron 2-0 Yes [id number] 4mg Take 1 Univers 4 mg 3-29 tablet by ity of disintegrat 00:00: mouth [place] ing tablet 00 every 4 Medica l (four) Branch hours as needed for Nausea and Vomiting (N/V). dicyclomine 2-0 Yes [id number] 20mg Take 1 Univers 20 mg 3-29 tablet by ity of tablet 00:00: mouth 4 [place] 00 (four) Medical times Branch daily. ondansetron 2-0 Yes [id number] 4mg Take 1 Univers 4 mg 3-29 tablet by ity of disintegrat 00:00: mouth [place] ing tablet 00 every 4 Medica l (four) Branch hours as needed for Nausea and Vomiting (N/V). dicyclomine 2022-0 Yes [id number] 20mg Take 1 Univers 20 mg 3-29 tablet by ity of tablet 00:00: mouth 4 [place] 00 (four) Medical times Branch daily. ondansetron 2022-0 Yes [id number] 4mg Take 1 Univers 4 mg 3-29 tablet by ity of disintegrat 00:00: mouth [place] ing tablet 00 every 4 Medica l (four) Branch hours as needed for Nausea and Vomiting (N/V). AMITRIPTYLI 2021-0 Yes 1 tab Unive rs NE 50 MG 3-14 every AM ity of ORAL TAB 11:59: [address] simvastatin Yes 40mg Take 40 mg Univers (ZOCOR) 40 3-14 by mouth ity o f mg tablet 11:59: at [place] [address] bedtime. Medical Branch levothyroxi Yes 50ug Take 50 Uni vers ne 3-14 mcg by ity of (SYNTHROID) 11:59: mouth [place] 50 mcg 28 every Medical tablet morning. Branch ALBUTEROL Yes 1{puff} Inhale 1 U nivers SULFATE HFA 3-14 Puff as ity o f INHALE 11:59: needed. [address] HYDROcodone Yes 1{tbl} Take 1 Un donaldo -acetaminop 3-14 tablet by ity of hen 10-325 11:59: [place] 3 [place] mg tablet 28 (three) Medical times [place] daily as needed. MAGNESIUM Yes 1{tbl} Take 1 Univ ers ORAL 3-14 tablet by ity of 11:59: mouth. [address] aspirin 81 Yes 81mg Take 81 mg U nivers mg EC 3-14 by mouth. ity of tablet 11:59: [address] estradioL Yes .5mg Take 0.5 Univ ers 0.5 mg 3-14 mg by ity of tablet 11:59: mouth. [address] esomeprazol Yes 40mg Take 40 mg Univers e 40 mg 3-14 by mouth. ity of capsule 11:59: [address] gabapentin Yes 600mg Take 600 Un donaldo ER 600 mg 3-14 mg by ity of tablet, 11:59: mouth. [place] [address] Medical release 24 Branch hr insulin Yes 85U inject 85 Unive rs degludec 3-14 Units ity of 100 unit/mL 11:59: [place] [facility] [place] [facility] Branch semaglutide Yes Take by Uni vers (RYBELSUS) 3-14 mouth. ity of 7 mg Tab 11:59: [address] trazodone Yes Take by Unive rs HCl 3-14 mouth. ity of (TRAZODONE 11:59: [facility]) 28 Medical Branch FAMOTIDINE Yes Take by Univ ers ORAL 3-14 mouth. ity of 11:59: [address] linaclotide Yes Take by Un donaldo (LINZESS 3-14 mouth. ity of ORAL) 11:59: [address] AMITRIPTYLI Yes 1 tab Unive rs NE 50 MG 3-14 every AM ity of ORAL TAB 11:59: [address] simvastatin Yes 40mg Take 40 mg Univers (ZOCOR) 40 3-14 by mouth ity o f mg tablet 11:59: at [place] [address] bedtime. Medical Branch levothyroxi Yes 50ug Take 50 Uni vers ne 3-14 mcg by ity of (SYNTHROID) 11:59: mouth [place] 50 mcg 28 every Medical tablet morning. Branch ALBUTEROL Yes 1{puff} Inhale 1 U nivers SULFATE HFA 3-14 Puff as ity o f INHALE 11:59: needed. [address] HYDROcodone Yes 1{tbl} Take 1 Un donaldo -acetaminop 3-14 tablet by ity of hen 10-325 11:59: [place] 3 [place] mg tablet 28 (three) Medical times Branch daily as needed. MAGNESIUM Yes 1{tbl} Take 1 Univ ers ORAL 3-14 tablet by ity of 11:59: mouth. [address] aspirin 81 Yes 81mg Take 81 mg U nivers mg EC 3-14 by mouth. ity of tablet 11:59: [address] estradioL Yes .5mg Take 0.5 Univ ers 0.5 mg 3-14 mg by ity of tablet 11:59: mouth. [address] esomeprazol Yes 40mg Take 40 mg Univers e 40 mg 3-14 by mouth. ity of capsule 11:59: [address] gabapentin Yes 600mg Take 600 Un donaldo ER 600 mg 3-14 mg by ity of tablet, 11:59: mouth. [place] [address] Medical release 24 Branch hr insulin Yes 85U inject 85 Unive rs degludec 3-14 Units ity of 100 unit/mL 11:59: under the [place] (3 mL) [facility] Medical Branch semaglutide Yes Take by Uni vers (RYBELSUS) 3-14 mouth. ity of 7 mg Tab 11:59: [address] Branch trazodone Yes Take by Unive rs HCl 3-14 mouth. ity of (TRAZODONE 11:59: [place] ORAL) [address] [place] [address] Branch FAMOTIDINE Yes Take by Univ ers ORAL 3-14 mouth. ity of 11:59: [address] Branch linaclotide Yes Take by Uni vers (LINZESS 3-14 mouth. ity of ORAL) 11:59: [address] AMITRIPTYLI Yes 1 tab Unive rs NE 50 MG 3-14 every AM ity of ORAL TAB 11:59: [address] simvastatin Yes 40mg Take 40 mg Univers (ZOCOR) 40 3-14 by mouth ity o f mg tablet 11:59: at [place] [address] bedtime. Medical Branch levothyroxi Yes 50ug Take 50 Uni vers ne 3-14 mcg by ity of (SYNTHROID) 11:59: mouth [place] 50 mcg 28 every Medical tablet morning. Branch ALBUTEROL Yes 1{puff} Inhale 1 U nivers SULFATE HFA 3-14 Puff as ity o f INHALE 11:59: needed. [address] HYDROcodone Yes 1{tbl} Take 1 Un donaldo -acetaminop 3-14 tablet by ity of hen 10-325 11:59: [place] 3 [place] mg tablet 28 (three) Medical times Branch daily as needed. MAGNESIUM Yes 1{tbl} Take 1 Univ ers ORAL 3-14 tablet by ity of 11:59: mouth. [address] aspirin 81 Yes 81mg Take 81 mg U nivers mg EC 3-14 by mouth. ity of tablet 11:59: [address] estradioL Yes .5mg Take 0.5 Univ ers 0.5 mg 3-14 mg by ity of tablet 11:59: mouth. [address] esomeprazol Yes 40mg Take 40 mg Univers e 40 mg 3-14 by mouth. ity of capsule 11:59: [address] gabapentin Yes 600mg Take 600 Un donaldo ER 600 mg 3-14 mg by ity of tablet, 11:59: mouth. [place] [address] Medical release 24 Branch hr insulin Yes 85U inject 85 Unive rs degludec 3-14 Units ity of 100 unit/mL 11:59: [facility] the [place] [facility] semaglutide Yes Take by Uni vers (RYBELSUS) 3-14 mouth. ity of 7 mg Tab 11:59: [address] Branch trazodone Yes Take by Unive rs HCl 3-14 mouth. ity of (TRAZODONE 11:59: [place] ORAL) [address] [place] [address] FAMOTIDINE Yes Take by Univ ers ORAL 3-14 mouth. ity of 11:59: [address] linaclotide Yes Take by Uni vers (LINZESS 3-14 mouth. ity of ORAL) 11:59: [address] Branch AMITRIPTYLI Yes 1 tab Unive rs NE 50 MG 3-14 every AM ity of ORAL TAB 11:59: [address] simvastatin Yes 40mg Take 40 mg Univers (ZOCOR) 40 3-14 by mouth ity o f mg tablet 11:59: at [place] [address] bedtime. Medical Branch levothyroxi Yes 50ug Take 50 Uni vers ne 3-14 mcg by ity of (SYNTHROID) 11:59: mouth [place] 50 mcg 28 every Medical tablet morning. Branch ALBUTEROL Yes 1{puff} Inhale 1 U nivers SULFATE HFA 3-14 Puff as ity o f INHALE 11:59: needed. [address] HYDROcodone Yes 1{tbl} Take 1 Un donaldo -acetaminop 3-14 tablet by ity of hen 10-325 11:59: mouth 3 [place] mg tablet 28 (three) Medical times Branch daily as needed. MAGNESIUM Yes 1{tbl} Take 1 Univ ers ORAL 3-14 tablet by ity of 11:59: mouth. [address] aspirin 81 Yes 81mg Take 81 mg U nivers mg EC 3-14 by mouth. ity of tablet 11:59: [address] estradioL Yes .5mg Take 0.5 Univ ers 0.5 mg 3-14 mg by ity of tablet 11:59: mouth. [address] esomeprazol Yes 40mg Take 40 mg Univers e 40 mg 3-14 by mouth. ity of capsule 11:59: [address] gabapentin Yes 600mg Take 600 Un donaldo ER 600 mg 3-14 mg by ity of tablet, 11:59: mouth. [place] [address] Medical release 24 Branch hr insulin Yes 85U inject 85 Unive rs degludec 3-14 Units ity of 100 unit/mL 11:59: under the [place] (3 mL) [facility] Branch semaglutide Yes Take by Uni vers (RYBELSUS) 3-14 mouth. ity of 7 mg Tab 11:59: [address] trazodone Yes Take by Unive rs HCl 3-14 mouth. ity of (TRAZODONE 11:59: [place] ORAL) [address] [place] [address] FAMOTIDINE Yes Take by Univ ers ORAL 3-14 mouth. ity of 11:59: [address] linaclotide Yes Take by Uni vers (LINZESS 3-14 mouth. ity of ORAL) 11:59: [address] AMITRIPTYLI Yes 1 tab Unive rs NE 50 MG 3-14 every AM ity of ORAL TAB 11:59: [address] simvastatin Yes 40mg Take 40 mg Univers (ZOCOR) 40 3-14 by mouth ity o f mg tablet 11:59: at [place] [address] bedtime. Medical Branch levothyroxi Yes 50ug Take 50 Uni vers ne 3-14 mcg by ity of (SYNTHROID) 11:59: mouth [place] 50 mcg 28 every Medical tablet morning. Branch ALBUTEROL Yes 1{puff} Inhale 1 U nivers SULFATE HFA 3-14 Puff as ity o f INHALE 11:59: needed. [address] HYDROcodone Yes 1{tbl} Take 1 Un donaldo -acetaminop 3-14 tablet by ity of hen 10-325 11:59: mouth 3 [place] mg tablet 28 (three) Medical times [place] daily as needed. MAGNESIUM Yes 1{tbl} Take 1 Univ ers ORAL 3-14 tablet by ity of 11:59: mouth. [address] aspirin 81 Yes 81mg Take 81 mg U nivers mg EC 3-14 by mouth. ity of tablet 11:59: [address] estradioL Yes .5mg Take 0.5 Univ ers 0.5 mg 3-14 mg by ity of tablet 11:59: mouth. [address] esomeprazol Yes 40mg Take 40 mg Univers e 40 mg 3-14 by mouth. ity of capsule 11:59: [address] gabapentin Yes 600mg Take 600 Un donaldo ER 600 mg 3-14 mg by ity of tablet, 11:59: mouth. [place] [address] Medical release 24 Branch hr insulin Yes 85U inject 85 Unive rs degludec 3-14 Units ity of 100 unit/mL 11:59: under the [place] (3 mL) In 28 skin. [facility] Branch semaglutide Yes Take by Uni vers (RYBELSUS) 3-14 mouth. ity of 7 mg Tab 11:59: [address] trazodone Yes Take by Unive rs HCl 3-14 mouth. ity of (TRAZODONE 11:59: [place] ORAL) [address] [place] [address] FAMOTIDINE Yes Take by Univ ers ORAL 3-14 mouth. ity of 11:59: [address] linaclotide Yes Take by Uni vers (LINZESS 3-14 mouth. ity of ORAL) 11:59: [address] predniSONE 2020-09 Yes [id number] 60mg Take 3 U nivers 20 mg 2-31 tablets by ity of tablet 00:00: mouth [place] 00 every Medical morning. Branch benzonatate 2020-09 Yes [id number] 100mg Take 1 Univers 100 mg 2-31 capsule by ity of capsule 00:00: mouth 3 [place] 00 (three) Medical times [place] daily as needed for Cough. predniSONE 2020-09 Yes [id number] 60mg Take 3 U nivers 20 mg 2-31 tablets by ity of tablet 00:00: mouth [place] 00 every Medical morning. Branch benzonatate 2020-09 Yes [id number] 100mg Take 1 Univers 100 mg 2-31 capsule by ity of capsule 00:00: mouth 3 [place] 00 (three) Medical times Branch daily as needed for Cough. predniSONE 2020-09 Yes [id number] 60mg Take 3 U nivers 20 mg 2-31 tablets by ity of tablet 00:00: mouth [place] 00 every Medical morning. Branch benzonatate 2020-09 Yes [id number] 100mg Take 1 Univers 100 mg 2-31 capsule by ity of capsule 00:00: mouth 3 [place] 00 (three) Medical times Branch daily as needed for Cough. predniSONE 2020-09 Yes [id number] 60mg Take 3 U nivers 20 mg 2-31 tablets by ity of tablet 00:00: mouth [place] 00 every Medical morning. Branch benzonatate 2020-09 Yes [id number] 100mg Take 1 Univers 100 mg 2-31 capsule by ity of capsule 00:00: mouth 3 [place] 00 (three) Medical times Branch daily as needed for Cough. predniSONE 2020-09 Yes [id number] 60mg Take 3 U nivers 20 mg 2-31 tablets by ity of tablet 00:00: mouth [place] 00 every Medical morning. Branch benzonatate 2020-09 Yes [id number] 100mg Take 1 Univers 100 mg 2-31 [...] InPn THE Branch MORNING FOR 90 DAYS TRESI2020-09 Yes INJECT 95 Unive rs FLEXTOUCH 2-27 UNITS ity of U-200 200 00:00: SUBCUTANEO [place] unit/mL (3 00 USLY IN Medica l mL) InPn THE Branch MORNING FOR 90 DAYS methocarbam 2020-09 Yes [id number] 500mg Take 1 Univers oL 500 mg 2-01 tablet by ity o f tablet 00:00: mouth 4 [place] 00 (four) Medical times Branch daily as needed for Pain (scale 4-6). methocarbam 2020-09 Yes [id number] 500mg Take 1 Univers oL 500 mg 2-01 tablet by ity o f tablet 00:00: mouth 4 [place] 00 (four) Medical times Branch daily as needed for Pain (scale 4-6). methocarbam 2020-09 Yes [id number] 500mg Take 1 Univers oL 500 mg 2-01 tablet by ity o f tablet 00:00: mouth 4 [place] 00 (four) Medical times Branch daily as needed for Pain (scale 4-6). methocarbam 2020-09 Yes [id number] 500mg Take 1 Univers oL 500 mg 2-01 tablet by ity o f tablet 00:00: mouth 4 00 (four) Medical times Branch daily as needed for Pain (scale 4-6). methocarbam 2020-09 Yes [id number] 500mg Take 1 Univers oL 500 mg [...] OTHER MEDICINE OF THE DAY RYBELSUS 14 2021-1 Yes TAKE ONE Un donaldo mg Tab 1-24 TABLET BY ity of 00:00: MOUTH ONCE [place] 00 A DAY AT Medical LEAST 30 Branch MINUTES BEFORE FIRST FOOD, BEVERAGE, OR OTHER MEDICINE OF THE DAY [facility] 2020-09 Yes TAKE ONE Un donaldo mg Tab 1-24 TABLET BY ity of 00:00: MOUTH ONCE [place] 00 A DAY AT Medical LEAST 30 Branch MINUTES BEFORE FIRST FOOD, BEVERAGE, OR OTHER MEDICINE OF THE DAY [facility] 2020-09 Yes TAKE ONE Un donaldo mg Tab 1-24 TABLET BY ity of 00:00: MOUTH ONCE [place] 00 A DAY AT Medical LEAST 30 Branch MINUTES BEFORE FIRST FOOD, BEVERAGE, OR OTHER MEDICINE OF THE DAY [facility] 2020-09 Yes TAKE ONE Un donaldo mg Tab 1-24 TABLET BY ity of 00:00: MOUTH ONCE [place] 00 A DAY AT Medical LEAST 30 Branch MINUTES BEFORE FIRST FOOD, BEVERAGE, OR OTHER MEDICINE OF THE DAY traZODone 2020-09 Yes Univers 100 mg 0-27 ity of tablet 00:00: [facility] Branch traZODone 2020-09 Yes Univers 100 mg 0-27 ity of tablet 00:00: [facility] Branch traZODone 2020-09 Yes Univers 100 mg 0-27 ity of tablet 00:00: Medical Branch traZODone 2020-09 Yes Univers 100 mg 0-27 ity of tablet 00:00: Medical Branch traZODone 2020-09 Yes Univers 100 mg 0-27 ity of tablet 00:00: Medical Branch bupivacaine 2020- No [id number] 1mL [place] (Marcaine) 02-27 9102 Health 0.5 % 14:41: 14:41 injection 1 46 :00 mL triamcinolo 2020- No [id number] 80mg [place] ne 02-27 9102 [facility] acetonide 14:41: 14:41 (Kenalog-40 46 :00 ) injection 80 mg triamcinolo 2020- No [id number] 80mg 80 mg, [place] ne 02-27 9102 [facility] acetonide 14:41: 14:41 cular, (Kenalog-40 46 :00 Once PRN ) injection Procedure, 80 mg Starting on Thu02/27/21 at 0941, For 1 dose bupivacaine 2020-0 2020- No [id number] 1mL 1 mL, [place] (Marcaine) 02-27 9102 Injection, He alth 0.5 % 14:41: 14:41 Once PRN injection 1 46 :00 Procedure, mL Starting on Thu02/27/21 at 0941, For 1 dose amLODIPine 1-0 Yes 5mg Take 5 mg Un donaldo 5 mg tablet 6-21 by mouth. ity of 00:00: [place] [facility] SERTraline 2020-0 Yes 50mg Take 50 mg U nivers 50 mg 6-21 by mouth. ity of tablet 00:00: [place] [facility] amLODIPine 2020-0 Yes 5mg Take 5 mg Un donaldo 5 mg tablet 6-21 by mouth. ity of 00:00: [place] [facility] SERTraline 2020-0 Yes 50mg Take 50 mg U nivers 50 mg 6-21 by mouth. ity of tablet 00:00: [place] [facility] amLODIPine 1-0 Yes 5mg Take 5 mg Un donaldo 5 mg tablet 6-21 by mouth. ity of 00:00: [place] [facility] SERTraline 2020-0 Yes 50mg Take 50 mg U nivers 50 mg 6-21 by mouth. ity of tablet 00:00: [place] [facility] amLODIPine 2020-0 Yes 5mg Take 5 mg Un donaldo 5 mg tablet 6-21 by mouth. ity of 00:00: [place] [facility] SERTraline 2021-0 Yes 50mg Take 50 mg U nivers 50 mg 6-21 by mouth. ity of tablet 00:00: [place] [facility] amLODIPine 1-0 Yes 5mg Take 5 mg Un donaldo 5 mg tablet 6-21 by mouth. ity of 00:00: [place] [facility] SERTraline 1-0 Yes 50mg Take 50 mg U nivers 50 mg 6-21 by mouth. ity of tablet 00:00: [address] sertraline 2021-0 Yes 50mg QD Take 50 [...] by ity of 24 hr 00:00: mouth. [address] metformin 2021-0 Yes 500mg Take 500 Uni vers ER 500 mg 6-03 mg by ity of 24 hr 00:00: mouth. [place] tablet 00 [facility] metformin 2021-0 Yes 500mg Take 500 Uni vers ER 500 mg 6-03 mg by ity of 24 hr 00:00: mouth. [place] tablet 00 [facility] metformin 2021-0 Yes 500mg Take 500 Uni vers ER 500 mg 6-03 mg by ity of 24 hr 00:00: mouth. [place] tablet 00 [facility] metformin 2021-0 Yes 500mg Take 500 Uni vers ER 500 mg 6-03 mg by ity of 24 hr 00:00: mouth. [place] tablet 00 [facility] metFORMIN 2021-0 Yes 500mg QD Take 500 [...] time 24 hr each day. tablet losartan-hy 2021-0 Yes [facility] droCHLOROth 6-02 [...] tablet 00 (two) times a day. plecanatide 2020-0 Yes 3mg Take 3 mg U nivers (TRULANCE) 3-23 by mouth. ity of 3 mg Tab 00:00: [address] plecanatide 2020-0 Yes 3mg Take 3 mg U nivers (TRULANCE) 3-23 by mouth. ity of 3 mg Tab 00:00: [address] plecanatide 2020-0 Yes 3mg Take 3 mg U nivers (TRULANCE) 3-23 by mouth. ity of 3 mg Tab 00:00: [address] plecanatide 2020-0 Yes 3mg Take 3 mg U nivers (TRULANCE) 3-23 by mouth. ity of 3 mg Tab 00:00: [address] plecanatide 2020-0 Yes 3mg Take 3 mg U nivers (TRULANCE) 3-23 by mouth. ity of 3 mg Tab 00:00: [address] Trulance 3 2020-0 Yes 3mg Take [...] tab, PO, l Tablet 17:44: Daily, # [place] 00 90 tab, 0 Refill(s), Pharmacy: [facility][id number] Aspirin 81 2019-0 Yes 81 mg = 1 Me moria MG Chewable 3-16 tab, PO, l Tablet 17:44: Daily, # [place] 00 90 tab, 0 Refill(s), Pharmacy: [facility] #[id number] Esomeprazol 2019-0 No 40 mg, 1 Me moria e 3-16 cap, l 14:00: Route: PO, Drug form: ECCAP, Daily, Dosing Weight 79.091, kg, Start date: 11/21/19 9:00:00 CDT, Duration: 30 day, Stop date: 12/20/19 9:00:00 CDT Estradiol 2019-0 No Notes: Memori a 3-16 Hazardous l 14:00: Drug Group [place] 00 2:Non-anti neoplastic Hazardous Drug -- Refer to safe handling procedure PPE [facility] Fluticasone 2019-0 No Notes: Brennen oscar propionate 3-16 (Same as: l 0.05 14:00: Flonase) [place] MG/ACTUAT 00 Metered Dose Nasal [place] [Flonase] Hydrochloro No 1 tab, Brennen oscar thiazide 25 3-16 Route: PO, l MG / 14:00: Drug Form: [place] Losartan 00 TAB, Potassium Dosing 100 MG Oral Weight Tablet 79.091, kg, Daily, Start date: 11/21/19 9:00:00 CDT, Duration: 30 day, Stop date: 12/20/19 9:00:00 CDT pantoprazol No Notes: Brennen oscar e 3-16 Tablet l 14:00: should not [place] 00 be chewed or crushed. (Same as: Protonix) Trulance 3 2019- No Trulance 3 M emoria mg oral 3-16 mg oral l tablet 14:00: tablet, 3 Andrei n 00 mg, Route: PO, Daily, 11/21/19 9:00:00 CDT, Duration: 30 day, Stop date: 12/20/19 9:00:00 CDT Januvia No Notes: [facility]oria 3-16 Same as l 14:00: Januvia [place] 00 Insulin No Notes: [place] Glargine 3-16 (Same as: l 100 UNT/ML 14:00: Lantus) Do H ermann Injectable not hold Solution insulin [Lantus] without contacting [...] Memoria 3-16 (Same as: l 14:00: Cozaar) [place] Esomeprazol No 40 mg, 1 Me moria e 3-16 cap, l 14:00: Route: PO, [place] 00 Drug form: ECCAP, Daily, Dosing Weight 79.091, kg, Start date: 11/21/19 9:00:00 CDT, Duration: 30 day, Stop date: 12/20/19 9:00:00 CDT Estradiol No Notes: Memori a 3-16 Hazardous l 14:00: Drug Group [place] 00 2:Non-anti neoplastic Hazardous Drug -- Refer to safe handling procedure PPE [facility] Fluticasone No Notes: Brennen oscar propionate 3-16 (Same as: l 0.05 14:00: Flonase) [place] MG/ACTUAT 00 Metered Dose Nasal [place] [Flonase] Hydrochloro No 1 tab, Brennen oscar thiazide 25 3-16 Route: PO, l MG / 14:00: Drug Form: [place] Losartan 00 TAB, Potassium Dosing 100 MG Oral Weight Tablet 79.091, kg, Daily, Start date: 11/21/19 9:00:00 CDT, Duration: 30 day, Stop date: 12/20/19 9:00:00 CDT pantoprazol No Notes: Brennen oscar e 3-16 Tablet l 14:00: should not [place] 00 be chewed or crushed. (Same as: [...] Memoria 3-16 (Same as: l 14:00: Cozaar) [place] Thyroxine No Notes: Memori a 3-16 Take 1 l 11:30: hour [place] 00 before or 2 hours after meal; [...] Memoria 3-16 (Same as: l 02:00: Humalog) [place] 00 Roll in palms of hands gently; Do not shake vigorously . WASTE: F/P - Black; E - Municipal Trash Bin Stable for 28 days at room temperatur e. Expires in days from ____Date montelukast No Notes: Brennen oscar 3-16 (Same l 02:00: as:Singula [place] 00 ir) Simvastatin No Notes: Brennen oscar 3-16 (Same as: l 02:00: Zocor) [place] 00 Humalog No Notes: Memoria 3-16 (Same as: l 02:00: Humalog) Roll in palms of hands gently; Do not shake vigorously . WASTE: F/P - Black; E - Municipal Trash Bin Stable for 28 days at room temperatur e. Expires in days from ____Date montelukast No Notes: Brennen oscar 3-16 (Same l 02:00: as:Singula ir) Simvastatin No Notes: Brennen oscar 3-16 (Same as: l 02:00: Zocor) Insulin, No 10 unit, Memor ia Aspart, 3-16 Route: l Human 01:39: SUB-Q, [place] 00 ONCE, Dosing Weight 79.091, kg, Priority: NOW, Start date: 11/20/19 20:39:00 CDT, Stop date: 11/20/19 20:39:00 CDT Insulin, No 10 unit, Memor ia Aspart, 316 Route: l Human 01:39: SUB-Q, [place] 00 ONCE, Dosing Weight 79.091, kg, Priority: NOW, Start date: 11/20/19 20:39:00 CDT, Stop date: 11/20/19 20:39:00 CDT Buspirone No Notes: Memori a 3-15 (Same As: l 22:00: BuSpar) [place] No Notes: Memoria 3-15 Same as l 22:00: [place] (Do Not Crush) Non Formulary Buspirone No Notes: Memori a 3-15 (Same As: l 22:00: BuSpar) [place] No Notes: Memoria 3-15 Same as l 22:00: Amit[place] (Do Not Crush) Non Formulary Acetaminoph No Notes: Do M emoria en 325 MG / 3-15 not exceed l Hydrocodone 18:53: 4gm/day of [place] Bitartrate 00 acetaminop 10 MG Oral hen. (Same Tablet as: [place] [[place] 325/10) ] Acetaminoph 2020-0 No Notes: Do M emoria en 325 MG / 3-15 not exceed l Hydrocodone 18:53: 4gm/day of [place] Bitartrate 00 acetaminop 10 MG Oral hen. (Same Tablet as: [place] [[place] 325/10) 10/325] Albuterol 2019-0 No Notes: Memori a 0.833 MG/ML 3-15 (Same as: l / 18:49: Duoneb) [place] Ipratropium 00 [place] 0.167 MG/ML Inhalant Solution Albuterol 2019-0 No Notes: Memori a 0.833 MG/ML 3-15 (Same as: l / 18:49: Duoneb) [place] Ipratropium 00 [place] 0.167 MG/ML Inhalant Solution Tylenol 0 No Notes: Do Memor ia 3-15 not exceed l 18:20: 4 gm/day. [place] 00 (Same as: Tylenol) Tylenol 0 No Notes: Do Memor ia 3-15 not exceed l 18:20: 4 gm/day. [place] 00 (Same as: Tylenol) Labetalol 0 No Notes: Memori a 3-15 (Same as: l 17:11: Normodyne, [place] 00 Trandate) Push over 2 minutes Give bolus over 2-3 minutes. Labetalol 2019-0 No Notes: Memori a 3-15 (Same as: l 17:11: Normodyne, [place] 00 Trandate) Push over 2 minutes Give bolus over 2-3 minutes. heparin 2020-0 No 5,000 Memoria 3-15 unit, l 14:23: Route: [place] 00 SUB-Q, Q8H-06, Dosing Weight 79.091, kg, Priority: STAT, Start date: 11/20/19 9:23:00 CDT, Duration: 30 day, Stop date: 12/20/19 6:00:00 CDT heparin 2020-0 No 5,000 Memoria 3-15 unit, l 14:23: Route: [place] 00 SUB-Q, Q8H-06, Dosing Weight 79.091, kg, Priority: STAT, Start date: 11/20/19 9:23:00 CDT, Duration: 30 day, Stop date: 12/20/19 6:00:00 CDT Lexapro 2020-0 No 10 mg, Memoria 3-15 Route: PO, l 14:15: Drug form: [place] 00 TAB, Daily, Dosing Weight 79.091, kg, [...] ia 3-15 (Same as: l 14:00: Lasix) January cause GI upset. Give with food or milk. Losartan No Notes: Memoria 3-15 (Same as: l 14:00: Cozaar) Furosemide 0 No Notes: Memor ia 3-15 (Same as: l 14:00: Lasix) January cause GI upset. Give with food or [...] Memoria 3-15 (Same as: l 08:52: Humalog) [place] 00 Roll in palms of [...] CDT, PRN Blood Glucose Results, 0 glucagon 0 No 1 mg, Memoria 315 Route: l 08:52: INJ, Drug [place] 00 form: PDR/INJ, PRN, PRN Blood Glucose Results, Start date: 11/20/19 3:52:00 CDT, Duration: 30 day, Stop date: 12/20/19 3:51:00 CDT, 0 Humalog 2019-0 No Notes: [place]oria 3-15 (Same as: l 08:51: Humalog) [place] 00 Roll in palms of hands gently; Do not shake vigorously . WASTE: F/P - Black; E - Municipal Trash Bin Stable for 28 days at room temperatur e. Expires in days from ____Date Humalog 2020-0 No Notes: [place]oria 3-15 (Same as: l 08:51: Humalog) [place] 00 Roll in palms of hands gently; Do not shake vigorously . WASTE: F/P - Black; E - Municipal Trash Bin Stable for 28 days at room temperatur e. Expires in days from ____Date Labetalol 2019-0 No Notes: Memori a 3-15 (Same as: l 06:25: Normodyne, [place] 00 Trandate) Push over 2 minutes Give bolus over 2-3 minutes. Labetalol 2019-0 No Notes: Memori a 3-15 (Same as: l 06:25: Normodyne, [place] 00 Trandate) Push over 2 minutes Give bolus over 2-3 minutes. Hydralazine 2019- No Notes: Brennen oscar 3-15 (Same as: l 03:35: Apresoline ) Push over 5 minutes Hydralazine 2019-0 No Notes: Brennen oscar 3-15 (Same as: l 03:35: Apresoline ) Push over 5 minutes Furosemide 0 No Notes: Memor ia 3-14 (Same as: l 23:33: Lasix) Losartan No Notes: Memoria 3-14 (Same as: l 23:33: Cozaar) Furosemide No Notes: Memor ia 3-14 (Same as: l 23:33: Lasix) Losartan 0 No Notes: Memoria 3-14 (Same as: l 23:33: Cozaar) POLYETHYLEN No Notes: Brennen osacr E GLYCOL 3-14 Dissolve l 3350 14:00: [...] Notes: Memoria 3-14 Chlorasept l 02:54: ic [place] (Same as: Chlorasept ic, Sore Throat [place]) WASTE: F/P - Black; E - Municipal Trash Bin phenol No Notes: Memoria 3-14 Chlorasept l 02:54: ic [place] (Same as: Chlorasept ic, Sore Throat [place]) WASTE: F/P - Black; E - Municipal Trash Bin Famotidine 0 No Notes: Memor ia 3-14 (Same as: l 02:00: Pepcid) [place] 00 Can be dilute in 5-10cc NS IVP: Slow IV push over at least 2 minutes. Saline No Notes: Memoria Flush 0.9% 3-14 (Same as: l 02:00: BD [place] 00 Posiflush) gabapentin No Notes: Memor ia 3-14 (Same as: l 02:00: Neurontin) [place] 00 Famotidine No Notes: Memor ia 3-14 (Same as: l 02:00: Pepcid) [place] 00 Can be dilute in 5-10cc NS IVP: Slow IV push over at least 2 minutes. Saline No Notes: Memoria Flush 0.9% 3-14 (Same as: l 02:00: BD [place] 00 Posiflush) gabapentin No Notes: Memor ia 3-14 (Same as: l 02:00: Neurontin) [place] 00 glucagon 2019-0 No 1 mg, Memoria 3-14 Route: l 01:54: INJ, Drug [place] 00 form: PDR/INJ, PRN, PRN Blood Glucose Results, Start date: 11/18/19 20:54:00 CDT, Duration: 30 day, Stop date: 12/18/19 20:53:00 CDT, 0 glucagon 2019-0 No 1 mg, Memoria 3-14 Route: l 01:54: INJ, Drug [place] 00 form: PDR/INJ, PRN, PRN Blood Glucose Results, Start date: 11/18/19 20:54:00 CDT, Duration: 30 day, Stop date: 12/18/19 20:53:00 CDT, 0 Humalog 2019-0 No Notes: Memoria 3-14 (Same as: l 01:53: Humalog) [place] 00 Roll in palms of [...] Results, 0 Humalog 2019-0 No Notes: Memoria 3-14 (Same as: l 01:53: Humalog) [place] 00 Roll in palms of hands gently; Do not shake vigorously . WASTE: F/P - Black; E - Municipal Trash Bin Stable for 28 days at room temperatur e. Expires in days from ____Date Dextrose 2020-0 No 50 mL, Memoria 50% in 3-14 Route: l Water IV 01:53: IVP, Start Her marmolejo date: 11/18/19 20:53:00 CDT, Duration: 30 day, Stop date: 12/18/19 20:52:00 CDT, PRN Blood Glucose Results, 0 Humalog No Notes: Memoria 3-14 (Same as: l :52: Humalog) [place] 00 Roll in palms of hands gently; Do not shake vigorously . WASTE: F/P - Black; E - Municipal Trash Bin Stable for 28 days at room temperatur e. Expires in days from ____Date Humalog 2019-0 No Notes: Memoria 3-14 (Same as: l :52: Humalog) [place] 00 Roll in palms of hands gently; Do not shake vigorously . WASTE: F/P - Black; E - Municipal Trash Bin Stable for 28 days at room temperatur e. Expires in days from ____Date Lasix 2019-0 No Notes: Memoria 3-13 (Same as: l 22:49: Lasix) [place] 00 MEDICATION WASTE Product Size: 40 mg Product Wasted: ___ mg Losartan 2020-0 No Notes: Memoria 3-13 (Same as: l 22:49: Cozaar) [place] 00 Lasix 2019-0 No Notes: Memoria 3-13 (Same as: l 22:49: Lasix) MEDICATION WASTE Product Size: 40 mg Product Wasted: ___ mg Losartan 2020-0 No Notes: Memoria 3-13 (Same as: l 22:49: Cozaar) ceFAZolin + 2020-0 No Notes: Brennen oscar [...] 4 mg Product Wasted: ___ mg Zofran 2020-0 No Notes: Memoria 3-13 (Same as: l 19:19: Zofran) MEDICATION WASTE Product Size: 4 mg Product Wasted: ___ mg Albuterol 2020-0 No Notes: Memori a 0.833 MG/ML 3-13 (Same as: l / 17:26: Duoneb) Ipratropium 00 [place] 0.167 MG/ML Inhalant Solution Saline 2019- No Notes: Memoria Flush 0.9% 3-13 (Same as: l 17:26: BD Posiflush) Potassium 2020-0 No Notes: Memori a Chloride 3-13 (Same as: l 17:26: KCL) Infuse no faster than 10 mEq/hr if given peripheral ly. sodium 2020-0 No Notes: Memoria phosphate 3-13 Infuse l 17:26: over 4 hour. Do not infuse phosphorou s concurrent ly in the same line as TPN or IVF that contains calcium. For double lumen central lines, phosphorou s may be infused in a separate lumen from TPN. potassium 2020-0 No Notes: Memori a phosphate 3-13 (Same as: l 17:26: K [place] 00 Phosphate. ) Do not infuse phosphorou s concurrent ly in the same line as TPN or IVF that contains calcium. For double lumen central lines, phosphorou s may be infused in a separate lumen from TPN. 1 mMol phoshate has 1.47 mEq potassium Infuse over 4 hours potassium 2020-0 No Notes: Memori a phosphate-s 3-13 (Same as: l odium 17:: Phos-NaK) [place] phosphate 00 Each 1.5 250 mg-280 gm pkt has mg-160 mg 250mg oral powder phosphorou for s. Mix reconstitut w/2.5oz ion water and stir. Magnesium 2019-0 No Notes: Memori a Sulfate 3-13 WASTE: F/P l 17:: - Sink; E - Municipal Trash Bin Magnesium 2019-0 No Notes: Memori a Oxide 3-13 (Same as: l 17:: Mag-Ox [place] 00 400) Magnesium oxide [id number] g elemental magnesium Dose=____m g magnesium oxide (___mg elemental magnesium) Calcium 2019-0 No Notes: [facility] Gluconate 3-13 WASTE: F/P l 17:: - Sink; E - Municipal Trash Bin Calcium 2019-0 No Notes: [facility] Carbonate 3-13 (Same As: l 500 MG 17:: Tums) [place] Chewable 00 Calcium Tablet Carbonate 500 mg = 200 mg elemental calcium Dose = mg calcium carbonate ( mg elemental calcium) Albuterol 2019-0 No Notes: Memori a 0.833 MG/ML 3-13 (Same as: l / :26: Du[place]) Ipratropium 00 [place] 0.167 MG/ML Inhalant Solution Saline 2019-0 No Notes: Memoria Flush 0.9% 3-13 (Same as: l 17:: BD [place] 00 Posiflush) Potassium 2019-0 No Notes: Memori a Chloride 3-13 (Same as: l 17:26: KCL) Infuse no faster than 10 mEq/hr if given peripheral ly. sodium 2020-0 No Notes: Memoria phosphate 3-13 Infuse l 17:26: over 4 [place] 00 hour. Do not infuse phosphorou s concurrent ly in the same line as TPN or IVF that contains calcium. For double lumen central lines, phosphorou s may be infused in a separate lumen from TPN. potassium 2020-0 No Notes: Memori a phosphate 3-13 (Same as: l 17:26: K [place] 00 Phosphate. ) Do not infuse phosphorou s concurrent ly in the same line as TPN or IVF that contains calcium. For double lumen central lines, phosphorou s may be infused in a separate lumen from TPN. 1 mMol phoshate has 1.47 mEq potassium Infuse over 4 hours potassium 2020-0 No Notes: Memori a phosphate-s 3-13 (Same as: l odium 17:26: Phos-NaK) [place] phosphate 00 Each 1.5 250 mg-280 gm pkt has mg-160 mg 250mg oral powder phosphorou for s. Mix reconstitut w/2.5oz ion water and stir. Magnesium 2019- No Notes: Memori a Sulfate 3-13 WASTE: F/P l 17:26: - Sink; E [place] 00 - Municipal Trash Bin Magnesium 2019-0 No Notes: Memori a Oxide 3-13 (Same as: l 17:26: Mag-Ox [place] 00 400) Magnesium oxide [id number] g elemental magnesium Dose=____m g magnesium oxide (___mg elemental magnesium) Calcium 2019-0 No Notes: [facility] Gluconate 3-13 WASTE: F/P l 17:26: - Sink; E - Municipal Trash Bin Calcium 2019-0 No Notes: [facility] Carbonate 3-13 (Same As: l 500 MG 17:26: Tums) [place] Chewable 00 Calcium Tablet Carbonate 500 mg = 200 mg elemental calcium Dose = mg calcium carbonate ( mg elemental calcium) Acetaminoph 2019-0 No Notes: Do M emoria en 3-13 not exceed l 17:00: 4 gm/day. [place] 00 (Same as: Tylenol) Acetaminoph 2019-0 No Notes: Do M emoria en 3-13 not exceed l 17:00: 4 gm/day. [place] 00 (Same as: Tylenol) Tramadol 2019-0 No Notes: Not Mem oria 3-13 to exceed l 16:39: 400mg/day. (Same As: Ultram) gabapentin 2019-0 No Notes: Memor ia 3-13 (Same as: l 16:39: Neurontin) Oxycodone 2019-0 No Notes: Memori a Hydrochlori 3-13 (Same as: l de 5 MG 16:39: Roxicodone Herm mary Oral Tablet 00 ) gabapentin 2019-0 No Notes: Memor ia 3-13 (Same as: l 16:39: Neurontin) Oxycodone 2020-0 No Notes: Memori a Hydrochlori 3-13 (Same as: l de 5 MG 16:39: Roxicodone Herm mary Oral Tablet 00 ) Tramadol 2019-0 No Notes: Not Mem oria 3-13 to exceed l 16:39: 400mg/day. (Same As: Ultram) niCARdipine 2020-0 No Route: IV, Memoria (ANES) 3-13 [...] niCARdipine 2020-0 No Route: IV, Memoria (ANES) 3-13 [...] Brennen oscar 3-13 Same as: l 16:20: Card Concentrat ion: (0.2 mg /1 ml ) Nicardipine 2020-0 No Notes: Brennen oscar 3-13 Same as: l 16:20: Card Concentrat ion: (0.2 mg /1 ml ) ondansetron 2020-0 No Route: IV, Memoria (ANES) 3-13 Drug form: l 16:13: INJ, ONCE, Stop date: 11/18/19 11:13:00 CDT ondansetron 2020-0 No Route: IV, Memoria (ANES) 3-13 Drug form: l 16:13: INJ, ONCE, Stop date: 11/18/19 11:13:00 CDT Nicardipine 2020-0 No Notes: Brennen oscar 3-13 Same as: l 16:12: Cardene Concentrat ion: (0.2 mg /1 ml ) Nicardipine 2020-0 No Notes: Brennen oscar 3-13 Same as: l 16:12: Concentrat ion: (0.2 mg /1 ml ) Acetaminoph 2020-0 No Notes: Brennen oscar en 3-13 Infuse l 16:09: over 15 [place] 00 minutes Do not exceed 4gm/day of acetaminop hen MEDICATION WASTE Product Size: 1000 mg Product Wasted: ___ mg Acetaminoph 2020-0 No Notes: Brenenn oscar en 3-13 Infuse l 16:09: over 15 [place] 00 minutes Do not exceed 4gm/day of [...] 2020-0 No Route: IV, Memor ia chloride 3-13 Drug form: l (ANES) 19 13:27: INJ, Start He + 00 date: remifentani 11/18/19 l (ANES) 1 8:27:00 mg CDT, Stop date: 11/18/19 9:27:00 CDT sodium 2020-0 No Route: IV, Memor ia chloride 3-13 [...] Rate: To l 0.9% 11:36: prime line [place] (titrate) 00 and flush 250 mL remaining blood products., Dosing Weight 81.023, kg, Route: IV, Total Volume: 250, Start Date: 11/18/19 6:36:00 CDT, Duration: 1 day, Stop date: 11/19/19 6:35:00 CDT, Replace Every: 24 hr, 0 Januvia 2020-0 Yes PO, Daily, Brennen oscar 3-09 unknown l 21:02: dose, 0 [place] 00 Refill(s) Januvia 2020-0 Yes PO, Daily, Brennen oscar 3-09 unknown l 21:02: dose, 0 [place] 00 Refill(s) Sodium 2020-0 No 250 mL, Memoria Chloride 3- Rate: To l 0.9% 20:03: prime line [place] (titrate) 00 and flush 250 mL remaining blood products., Dosing Weight 81.023, kg, Route: IV, Total Volume: 250, Start Date: 11/14/19 15:03:00 CDT, Duration: 1 day, Stop date: 11/15/19 15:02:00 CDT, Replace Every: 24 hr, 0 Sodium 2020-0 No 250 mL, Memoria Chloride 3- Rate: To l 0.9% 20:03: prime line [place] (titrate) 00 and flush 250 mL remaining [...] INHALATION l / 18:03: , Q6H, PRN [place] Ipratropium 00 Wheezing, [place] # 30 ea, 1 0.167 MG/ML Refill(s) Inhalant Solution Fluticasone 2020-0 Yes NASAL, Brennen oscar propionate 3-09 Daily, 0 l 0.05 18:03: Refill(s) [place] MG/ACTUAT 00 Metered Dose Nasal [place] [Flonase] meloxicam 2020-0 Yes 15 mg = 1 Mem oria 15 mg oral 3-09 tab, PO, l tablet 18:03: Daily, # [place] 00 30 tab, 0 Refill(s) busPIRone 2020-0 Yes 10 mg = 1 Mem oria 10 mg oral 3-09 tab, PO, l tablet 18:03: BID, 0 [place] 00 Refill(s) Esomeprazol 2020-0 Yes 40 mg [...] tab, PO, l oral 18:03: Daily, # [place] enteric 00 30 tab, 1 coated Refill(s) [...] INHALATION l / 18:03: , Q6H, PRN [place] Ipratropium 00 Wheezing, [place] # 30 ea, 1 0.167 MG/ML Refill(s) Inhalant Solution Fluticasone 2020-0 Yes NASAL, Brennen oscar propionate 3-09 Daily, 0 l 0.05 18:03: Refill(s) [place] MG/ACTUAT 00 Metered Dose Nasal [place] [Flonase] meloxicam 2020-0 Yes 15 mg = 1 Mem oria 15 mg oral 3-09 tab, PO, l tablet 18:03: Daily, # [place] 00 30 tab, 0 Refill(s) busPIRone 2020-0 Yes 10 mg = 1 Mem oria 10 mg oral 3-09 tab, PO, l tablet 18:03: BID, 0 [place] 00 Refill(s) Esomeprazol 2020-0 Yes 40 mg [...] microgram l Oral 18:03: = 1 cap, [place] Capsule 00 PO, BID, 0 [Amitiza] Refill(s) magnesium 2020-0 No 400 mg = 1 Me moria oxide 400 3-09 tab, PO, l mg oral 18:03: Daily, # Andrei n tablet 00 30 tab, 1 Refill(s) pantoprazol 2020-0 Yes 40 mg = 1 M emoria e 40 mg 3-09 tab, PO, l oral 18:03: Daily, # [place] enteric 00 30 tab, 1 coated Refill(s) tablet montelukast 2020-0 Yes 10 mg = 1 M emoria 10 mg oral 3-09 tab, PO, l tablet 18:03: Bedtime, # Keisha nn 00 30 tab, 0 Refill(s) plecanatide 2020-0 Yes 3 mg = 1 Me moria 3 MG Oral 3-09 tab, PO, l Tablet 18:03: Daily, 0 [place] [Trulance] 00 Refill(s) HYDROcodone 2018- Yes 1{tbl} Q.[id number] Take 1 [facility] -acetaminop -[id number] hen (NORCO) 21:45: 3D mouth 3 Hos leonardo 7.5-325 mg 51 (three) l per tablet times a day. methocarbam 2017-09 Yes 750mg Q.24100627 Take 750 [facility] ol 1-[id number] (ROBAXIN) 21:45: 3D mouth [...] l Pure Magnesium albuterol 2017-09 Yes 1{puff} Q.99702044 Inhale 1 [facility] (PROAIR -[id number] HFA,PROVENT 21:45: 3D (three) [...] capsule 51 l HYDROcodone 2017-09 Yes 1{tbl} Q.[id number] Take 1 [facility] -acetaminop 1-[id number] hen (NORCO) 15:45: 3D mouth 3 Hos leonardo 7.5-325 mg 51 (three) l per tablet times a day. methocarbam 2017-09 Yes 750mg Q.75899968 Take 750 Method[facility] ol 1-[id number] (ROBAXIN) 15:45: 3D mouth [...] l Pure Magnesium albuterol 2017-09 Yes 1{puff} Q.[id number] Inhale 1 [facility] (PROAIR -[id number] HFA,PROVENT 15:45: 3D (three) [...] capsule 51 l HYDROcodone 2017-09 Yes 1{tbl} Q.[id number] Take 1 [facility] -acetaminop -[id number] hen (NORCO) 15:45: 3D mouth 3 Hos leonardo 7.5-325 mg 51 (three) l per tablet times a day. methocarbam 2017-09 Yes 750mg Q.[id number] Take 750 Method[facility] ol -[id number] (ROBAXIN) 15:45: 3D mouth [...] capsule 51 l HYDROcodone 2017-09 Yes 1{tbl} Q.34915595 Take 1 [facility] -acetaminop -[id number] hen (NORCO) 15:45: 3D mouth 3 Hos leonardo 7.5-325 mg 51 (three) l per tablet times a day. methocarbam 2017-09 Yes 750mg Q.[id number] Take 750 Method[facility] ol -[id number] (ROBAXIN) 15:45: 3D mouth [...] mouth [facility]osp[facility] tablet 51 daily. l tiZANidine 2018-1 Yes 2mg Q.5D Take 2 mg Me [...] l Pure Magnesium albuterol 2017-09 Yes 1{puff} Q.75004287 Inhale 1 [facility] (PROAIR -[id number] HFA,PROVENT 15:45: 3D (three) Hos [place]onardo [place] 51 times a l HFA,VENTOLI day as N HFA) 90 needed for mcg/actuati wheezing on inhaler or shortness of breath. pantoprazol 2017-09 Yes 40mg QD Take 40 mg Method[facility] e -[address] (PROTONIX) 15:45: daily. Hospi ta 40 MG EC 51 l tablet meloxicam 2017-09 Yes 15mg QD Take 15 mg Me thodi (MOBIC) 15 1-[address] mg tablet 15:45: daily. Hospit a 51 l DULoxetine 2017-09 Yes 20mg QD Take 20 mg M ethodi (CYMBALTA) -[address] 20 MG 15:45: daily. Hospita capsule 51 l amitriptyli 2017-09 Yes 25mg QD Take 25 [...] 2017-09 Yes .5mg QD Take 0.5 Meth bharait (ESTRACE) 1-[address] 0.5 MG [...] l Pure Magnesium albuterol 2017-09 Yes 1{puff} Q.[id number] Inhale 1 [facility] (PROAIR 1-[id number] HFA,PROVENT 15:45: 3D (three) [...] capsule 51 l HYDROcodone 2017-09 Yes 1{tbl} Q.[id number] Take 1 [facility] -acetaminop [id number] hen (NORCO) 15:45: 3D mouth 3 Hos leonardo 7.5-325 mg 51 (three) l per tablet times a day. methocarbam 2017-09 Yes 750mg Q.[id number] Take 750 Methodi ol [id number] (ROBAXIN) 15:45: 3D mouth [...] l Pure Magnesium albuterol 2017-09 Yes 1{puff} Q.[id number] Inhale 1 [facility] (PROAIR -[id number] HFA,PROVENT 15:45: 3D (three) [...] capsule 51 l HYDROcodone 2017-09 Yes 1{tbl} Q.[id number] Take 1 [facility] -acetaminop 1-[id number] hen (NORCO) 15:45: 3D mouth 3 Hos leonardo 7.5-325 mg 51 (three) l per tablet times a day. methocarbam 2017-09 Yes 750mg Q.[id number] Take 750 Methodi ol -[id number] (ROBAXIN) 15:45: 3D mouth [...] l Pure Magnesium albuterol 2017-09 Yes 1{puff} Q.[id number] Inhale 1 [facility] (PROAIR -[id number] HFA,PROVENT 15:45: 3D (three) [...] spasms for up to 40 doses. methocarbam 2018-1 Yes 750mg Q8H Take 1 Met hodi ol 1-[address] (ROBAXIN-75 00:00: (750 mg Hos leonardo 0) 750 MG 00 total) by l tablet mouth every 8 (eight) hours as needed for muscle spasms for up to 40 doses. methocarbam 2018-1 Yes 750mg Q8H Take 1 Met hodi ol 1-[address] (ROBAXIN-75 00:00: (750 mg Hos leonardo 0) 750 MG 00 total) by l tablet mouth every 8 (eight) hours as needed for muscle spasms for up to 40 doses. methocarbam 2018-1 Yes 750mg Q8H Take 1 Met hodi [...] Common HCl HCl [facility] Immunizations Ordered Immunization Filled Immunization Date Status Commen ts Source Name Name SARS-COV-2 COVID-19 2021-06-21 Completed Unive [facility] of PFIZER VACCINE 00:00:00 [facility] SARS-COV-2 COVID-19 2021-06-21 Completed Unive rsity of PFIZER VACCINE 00:00:00 [facility] SARS-COV-2 COVID-19 2021-06-21 Completed Unive rsity of PFIZER VACCINE 00:00:00 [facility] SARS-COV-2 COVID-19 2021-06-21 Completed Unive rsity of PFIZER VACCINE 00:00:00 [facility] SARS-COV-2 COVID-19 2021-06-21 Completed Unive rsity of PFIZER VACCINE 00:00:00 [facility] SARS-COV-2 COVID-19 2021-05-31 Completed Unive rsity of PFIZER VACCINE 00:00:00 [facility] SARS-COV-2 COVID-19 2021-05-31 Completed Unive rsity of PFIZER VACCINE 00:00:00 [facility] SARS-COV-2 COVID-19 2021-05-31 Completed Unive rsity of PFIZER VACCINE 00:00:00 [facility] SARS-COV-2 COVID-19 2021-05-31 Completed Unive rsity of PFIZER VACCINE 00:00:00 [facility] SARS-COV-2 COVID-19 2021-05-31 Completed Unive rsity of PFIZER VACCINE 00:00:00 [facility] Sandy Sars-cov-2 2020-[facility] [...] h Free 18-64 YRS Influenza, 2020-06-25 Completed [facility] quadrivalent, 00:00:00 injectable, preservative free Influenza, 2020-06-25 Completed [facility] quadrivalent, 00:00:00 injectable, preservative free Influenza, 2020-06-25 Completed [facility] quadrivalent, 00:00:00 injectable, preservative free Influenza, 2020-06-25 Completed [facility] quadrivalent, 00:00:00 injectable, preservative free Influenza, 2020-06-25 Completed [facility] recombinant, 00:00:00 quadrivalent, injectable, preservative free Influenza, 2020-06-25 Completed [facility] recombinant, 00:00:00 quadrivalent, injectable, preservative free Influenza, 2020-06-25 Completed [facility] quadrivalent, 00:00:00 injectable, preservative free Influenza, 2020-06-25 Completed [facility] quadrivalent, 00:00:00 injectable, preservative free Influenza High Dose 2020-05-10 Completed Unive rs[facility] of Quad 00:00:00 [facility] Influenza High Dose 2020-05-10 Completed Unive rsity of 00:00:00 [facility] Influenza High Dose 2020-05-10 Completed [facility]ive rsity of Quad 00:00:00 [facility] Influenza High Dose 2020-05-10 Completed Unive rsity of 00:00:00 [facility] Influenza High Dose 2020-05-10 Completed [facility]ive rs[facility] of Quad 00:00:00 [facility] Influenza High Dose 2020-05-10 Completed Unive rsity of 00:00:00 [facility] Influenza High Dose 2020-05-10 Completed Unive rs[facility] of Quad 00:00:00 [facility] Influenza High Dose 2020-05-10 Completed Unive rsity of 00:00:00 [facility] Influenza High Dose 2020-05-10 Completed Unive rs[facility] of Quad 00:00:00 [facility] Influenza High Dose 2020-05-10 Completed Unive rsity of 00:00:00 [facility] Influenza, High Dose 2020-05-10 Completed [...] Vaccine 2019-08-20 Completed [facility] Recombinant 00:00:00 [facility] Zoster Vaccine 2019-08-20 Completed [facility] Recombinant 00:00:00 [facility] Zoster Vaccine 2019-08-20 Completed [facility] Recombinant 00:00:00 [facility] Zoster Vaccine 2019-08-20 Completed [facility] Recombinant 00:00:00 [facility] Zoster Vaccine 2019-08-20 Completed [facility] Recombinant 00:00:00 [facility] Zoster, Recombinant 2019-08-20 [facility] [...] 00:00:00 MMR 2019-04-30 Completed [facility] 00:00:00 [facility] MMR 2019-04-30 Completed [facility] 00:00:00 [facility] MMR 2019-04-30 Completed [facility] 00:00:00 [facility] MMR 2019-04-30 Completed [facility] 00:00:00 [facility] MMR 2019-04-30 Completed [facility] 00:00:00 [facility] MMR 2019-04-30 [facility] 00:00:00 MMR 2019-04-30 Completed [facility] 00:00:00 MMR 2019-04-30 Completed [facility] 00:00:00 MMR 2019-04-30 Completed [facility] 00:00:00 MMR 2019-04-30 Completed [facility] 00:00:00 MMR 2019-04-30 Completed [facility] 00:00:00 MMR 2019-04-30 Completed [facility] 00:00:00 MMR 2019-04-30 Completed [facility] 00:00:00 Zoster Vaccine 2019 Completed [facility] Recombinant 00:00:00 [facility] Zoster Vaccine 2019 Completed [facility] Recombinant 00:00:00 [facility] Zoster Vaccine 2019 Completed [facility] Recombinant 00:00:00 [facility] Zoster Vaccine 2019 Completed [facility] Recombinant 00:00:00 [facility] Zoster Vaccine 2019 Completed [facility] Recombinant 00:00:00 [facility] Zoster, Recombinant 2019 Completed [facility] [...] 2009-08-27 Completed Universit y of Vaccine 00:00:00 [facility] Influenza Virus 2009-08-27 Completed Universit y of Vaccine 00:00:00 [facility] Influenza Virus 2009-08-27 Completed Universit y of Vaccine 00:00:00 [facility] Influenza Virus 2009-08-27 Completed Universit y of Vaccine 00:00:00 [facility] Influenza Virus 2009-08-27 Completed [facility]it y of Vaccine 00:00:00 [facility] Influenza, 2009-08-27 [facility] [...] Time Observation Value Comments Source Systolic blood 2022-06-29 17:21:00 183 mm[Hg] Univer sity of pressure [facility] Diastolic blood 2022-06-29 17:21:00 98 mm[Hg] Unive rsity of [facility] Heart rate 2022-06-29 17:21:00 73 /min [facility] Body temperature 2022-06-29 17:21:00 36.72 Kelly [facility] Respiratory rate 2022-06-29 17:21:00 22 /min [facility] Body height 2022-06-29 17:21:00 162.6 cm [facility] Body weight 2022-06-29 17:21:00 86.183 kg [facility] BMI 2022-06-29 17:21:00 32.61 kg/m2 [facility]i ty [facility] Oxygen saturation in 2022-06-29 17:21:00 97 /min [facility] Arterial blood by [facility] Pulse oximetry Branch Systolic blood 2022-05-06 15:23:00 156 mm[Hg] Univer sity of pressure [facility] Diastolic blood 2022-05-06 15:23:00 72 mm[Hg] Unive rsity of pressure [facility] Heart rate 2022-05-06 15:23:00 72 /min [facility] Body temperature 2022-05-06 15:23:00 35.72 Kelly Univ ersity of [facility] Body height 2022-05-06 15:23:00 162.6 cm [facility]i [facility] Body weight 2022-05-06 15:23:00 89.359 kg [facility] BMI 2022-05-06 15:23:00 33.81 kg/m2 [facility] Systolic blood 2021-09-11 20:47:00 139 mm[Hg] [facility] [...] Body height 2021-02-27 13:49:00 [facility] 2021-02-27 13:49:[facility] BMI 2021-02-27 13:49:00 33.81 [facility] Heart Rate 2019-11-21 15:32:00 [facility] Respitory Rate 2019-11-21 15:32:00 Memori al [place] Systolic (mm Hg) 2019-11-21 15:32:00 Brennen rial [place] Diastolic (mm Hg) 2019-11-21 15:32:00 Mem orial [place] Heart Rate 2019-11-21 12:57:00 [facility] Respitory Rate 2019-11-21 12:57:00 Memori al [place] Systolic (mm Hg) 2019-11-21 12:57:00 Brennen rial [place] Diastolic (mm Hg) 2019-11-21 12:57:00 Mem orial [place] Heart Rate 2019-11-21 08:37:00 [facility] [place] Respitory Rate 2019-11-21 08:37:00 Memori al [place] Systolic (mm Hg) 2019-11-21 08:37:00 Brennen rial [place] Diastolic (mm Hg) 2019-11-21 08:37:00 Mem orial [place] Temperature Oral (F) 2019-11-18 12:00:00 98.3 F [facility] Weight 2019-11-18 11:45:00 [facility] [place] BMI Calculated 2019-11-18 11:45:00 Memori al [place] Height 2019-11-14 19:59:00 162.56 cm [facility] [place] Systolic (mm Hg) 2019-11-14 17:59:00 Brennen rial [place] Diastolic (mm Hg) 2019-11-14 17:59:00 Mem orial [place] Heart Rate 2019-11-14 17:59:00 [facility] [place] Height 2019-11-14 17:59:00 162.56 cm [facility] [place] Weight 2019-11-14 17:59:00 [facility] [place] BMI Calculated 2019-11-14 17:59:00 Memori al [place] Procedures Procedure Date / Time Performing Clinician Source Performed [place] SMALL BOWEL SERIES 2022-07-02 15:57:31 Pradip Yung [facility] ASSIGNMENT OF BENEFITS 2022-06-29 18:10:12 Doctor Unassigned, [facility] CREATINE KINASE 2022-06-29 17:56:00 Yobany Zackary [facility] MAGNESIUM 2022-06-29 17:56:00 [facility] BASIC METABOLIC PANEL 2022-06-29 17:56:00 Zackary Haywood [facility] (NA, K, CL, CO2, GLUCOSE, Medica l Branch BUN, CREATININE, CA) CONSENT/REFUSAL FOR 2022-06-29 17:15:25 Doctor Unassigned, [facility] DIAGNOSIS AND TREATMENT [facility] XR LUMBAR SPINE 2 VW 2022-05-06 15:32:47 Armond Montoya [facility] REFERRAL- 2022-04-25 05:01:00 Doctor Unassigned, [facility] REQUEST/RESPONSE [facility] MRI LUMBAR SPINE WO 2021-03-19 13:02:57 [facility] CONTRAST [place] ARTHROCENTESIS 2021-02-27 14:41:46 [facility] ASPIR&/INJ MAJOR JT/BURSA W/O US XR LUMBAR SPINE AP 2020-11-13 14:56:[address] [facility] LATERAL FLEXION AND EXTENSION [facility] replacement<sup>1</sup> Gallbladder operation [facility] Rotator cuff repair [facility] Lumbar laminectomy and [facility] excision of intradural spinal lesion Hysterectomy [facility] Appendectomy [facility] Cataract extraction [facility] Plan of Care Planned Activity Planned Date Details Comments Source Future Scheduled 2022-05-29 HEPATITIS B VACCINES Met [facility] Test 07:48:01 (1 of 3 - 3-dose series) [code = HEPATITIS B VACCINES (1 of 3 - 3-dose series)] Future Scheduled 2022-05-29 COVID-19 VACCINE (#1) [facility] Test 07:48:01 [code = COVID-19 VACCINE (#1)] Future Scheduled 2022-05-29 Hepatitis C screening [facility] Test 07:48:01 (procedure) [code = 894733501] Future Scheduled 2022-05-29 Screening for [facility] Test 07:48:01 malignant neoplasm of cervix (procedure) [code = 725491327] Future Scheduled 2022-05-29 BREAST CANCER [facility] Test 07:48:01 SCREENING [code = BREAST CANCER SCREENING] Future Scheduled 2022-05-29 COLONOSCOPY SCREENING [facility] Test 07:48:01 [code = COLONOSCOPY SCREENING] Future Scheduled 2022-05-29 INFLUENZA VACCINE Method [facility] Test 07:48:01 [code = INFLUENZA VACCINE] Future Scheduled 2022-05-29 HEPATITIS B VACCINES Met [facility] Test 07:48:01 (1 of 3 - 3-dose series) [code = HEPATITIS B VACCINES (1 of 3 - 3-dose series)] Future Scheduled 2022-05-29 COVID-19 VACCINE (#1) [facility] Test 07:48:01 [code = COVID-19 VACCINE (#1)] Future Scheduled 2022-05-29 Hepatitis C screening [facility] Test 07:48:01 (procedure) [code = [id number]] Future Scheduled 2022-05-29 Screening for [facility] Test 07:48:01 malignant neoplasm of cervix (procedure) [code = [id number]] Future Scheduled 2022-05-29 BREAST CANCER [facility] Test 07:48:01 SCREENING [code = BREAST CANCER SCREENING] Future Scheduled 2022-05-29 COLONOSCOPY SCREENING [facility] Test 07:48:01 [code = COLONOSCOPY SCREENING] Future Scheduled 2022-05-29 INFLUENZA VACCINE Method [facility] Test 07:48:01 [code = INFLUENZA VACCINE] Future Scheduled 2022-05-06 HEPATITIS B VACCINES Met [facility] Test 10:13:08 (1 of 3 - 3-dose series) [code = HEPATITIS B VACCINES (1 of 3 - 3-dose series)] Future Scheduled 2022-05-06 COVID-19 VACCINE (#1) [facility] Test 10:13:08 [code = COVID-19 VACCINE (#1)] Future Scheduled 2022-05-06 Hepatitis C screening [facility] Test 10:13:08 (procedure) [code = [id number]] Future Scheduled 2022-05-06 Screening for [facility] Test 10:13:08 malignant neoplasm of cervix (procedure) [code = 284175670] Future Scheduled 2022-05-06 [facility] 10:13:08 SCREENING [code = BREAST CANCER SCREENING] Future Scheduled 2022-05-[address] [facility] Hospital Test 10:13:08 [code = COLONOSCOPY SCREENING] Future Scheduled 2022-05-06 INFLUENZA VACCINE [facility] Test 10:13:08 [code = INFLUENZA VACCINE] Future Scheduled 2021-09-19 COVID-19 VACCINE (1) [facility] Test 04:08:39 [code = COVID-19 VACCINE (1)] Future Scheduled 2021-09-19 Hepatitis C screening [facility] Hospital Test 04:08:39 (procedure) [code = 582087365] Future Scheduled 2021-09-19 [facility] Test 04:08:39 malignant neoplasm of cervix (procedure) [code = 955621339] Future Scheduled 2021-09-19 [facility] Test 04:08:39 SCREENING [code = BREAST CANCER SCREENING] Future Scheduled 2021-09-19 COLONOSCOPY SCREENING [facility] Test 04:08:39 [code = COLONOSCOPY SCREENING] Future Scheduled 2021-09-19 INFLUENZA VACCINE [facility] Test 04:08:39 [code = INFLUENZA VACCINE] Future Scheduled 2021-09-19 COVID-19 VACCINE (1) [facility] Test 04:08:39 [code = COVID-19 VACCINE (1)] Future Scheduled 2021-09-19 Hepatitis C screening [facility] Test 04:08:39 (procedure) [code = 599966292] Future Scheduled 2021-09-19 [facility] Test 04:08:39 malignant neoplasm of cervix (procedure) [code = 477623748] Future Scheduled 2021-09-19 [facility] Test 04:08:39 SCREENING [code = BREAST CANCER SCREENING] Future Scheduled 2021-09-[address] [facility] Hospital Test 04:08:39 [code = COLONOSCOPY SCREENING] Future Scheduled 2021-09-19 INFLUENZA VACCINE [facility] Test 04:08:39 [code = INFLUENZA VACCINE] Future Scheduled DIABETES: RETINAL EYE Me [facility] Test EXAM [code = DIABETES: RETINAL EYE EXAM] Future Scheduled DIABETIC FOOT EX[facility] Test [code = DIABETIC FOOT EXAM] Future Scheduled URINE MICROALBUMIN [facility] Test [code = URINE MICROALBUMIN] Future Scheduled COVID-19 VACCINE (1) [facility] [code = COVID-19 VACCINE (1)] Future Scheduled Hepatitis C screening [facility] Hospital Test (procedure) [code = 131456459] Future [facility]uled [facility] malignant neoplasm of cervix (procedure) [code = 147104178] Future Scheduled [facility] SCREENING [code = BREAST CANCER SCREENING] Future Scheduled COLONOSCOPY SCREENING Me [facility] Hospital Test [code = COLONOSCOPY SCREENING] Future Scheduled INFLUENZA VACCINE [facility] Test [code = INFLUENZA VACCINE] Encounters Start End Encounter Admission Attending Care Care Encounter Source Date/Time Date/Time Type Type Clinicians Facility Department ID 2022-06-09 Outpatient De Anda, STLMLC [facility] [id number] Common 14:43:01 Baljeet [facility] 2022-03-11 Outpatient De Anda, STLMLC [facility] [id number] Common 07:59:00 Baljeet [facility] 2022-03-07 Outpatient De Anda, STLMLC [facility] [id number] Common 09:35:01 Baljeet [facility] 2022-02-20 Outpatient De Anda, STLMLC [facility] [id number] Common 15:57:00 Baljeet [facility] 2022-02-07 Outpatient ROBERTSGIANNA [facility] 7501 13:35:33 [facility] 2021-10-02 Outpatient De Anda, STLMLC [facility] [id number] Common 14:26:56 Baljeet 92914 [facility] 2021-10-02 Outpatient De Anda, STLMLC [facility] [id number] Common 14:26:22 Baljeet 31849 [facility] 2021-10-02 Outpatient De Anda, STLMLC [facility] [id number] Common 14:17:54 Baljeet 86109 [facility] 2021-10-02 Outpatient Guerrero, STLMLC [facility] [id number] Common 14:09:58 Vira 22507 [facility] 2021-10-02 Outpatient Millender, STLMLC [facility] [id number] Common 11:05:50 Tawana 70903 [facility] 2021-10-02 Outpatient CHRISTIANO Ramirez [facility] [id number] Common 11:03:36 Tawana 84891 [facility] 2021-07-09 Emergency [facility] [id number] Univers 03:44:02 ity [facility] 2021-07-08 Emergency [facility] [id number] Univers 21:59:46 [facility]06 [facility] [id number] Univers 00:05:05 [facility] 2021-07-05 Outpatient [facility] [id number] Univers 16:33:55 [facility] 2022-07-02 2022-07-02 [facility] [id number] Univers 09:02:16 23:59:00 PRADIP alanis [facility] 2022-07-02 2022-07-02 [facility] 1.2.840.114 [id number] Univers 09:02:16 23:59:00 Encounter Pradip SOLER 350.1.13.[address] [facility] 4.2.7.2.686 [facility] [id number] [facility] [address] 2022-06-29 2022-06-29 Emergency X [facility] ERT [id number] Univers 12:22:00 14:19:00 ZACKARY annabelle [facility] 2022-06-29 2022-06-29 [facility] 1.2.313.529 [id number] Univers 12:22:00 14:19:00 Zackary SOLER 350.1.13.10 i ty of [facility] 4.2.7.2.686 [facility] [id number] [facility] [address] 2022-05-06 2022-05-06 [facility] 1.2.840.114 [id number] Univers 10:25:00 23:59:00 Encounter Armond AGUILAR 350.1.13.10 ity of [facility] 4.2.7.2.[place] C[place] AT [phone] Nh natalee DUKES 809 [facility] 2022-05-06 2022-05-06 [facility] [id number] Univers 10:00:00 15:17:56 ALE ity [facility] 2022-05-06 2022-05-06 [facility] [id number] Univers 10:00:00 15:17:56 ALE ity [facility] 2022-05-06 2022-05-06 Office [facility] 1.2.840.114 [id number] Univers 10:00:00 10:20:00 Visit [facility] 350.1.13.10 ity of [facility] 4.2.7.2.686 [facility] CENTER AT [phone] Nh natalee DUKES 198 [facility] 2022-05-06 2022-05-06 Outpatient [facility] [id number] Univers 10:00:00 10:00:00 [facility] 2022-05-02 2022-05-02 Outpatient [facility] [id number] Univers 08:29:48 23:59:00 [facility] 2022-05-02 2022-05-02 Outpatient [facility] [id number] Univers 08:45:00 09:33:27 [facility] 2022-05-02 2022-05-02 Office [facility] 1.2.840.114 [id number] Univers 08:45:00 09:00:00 Visit [facility] 350.1.13.10 it y of [place] 4.2.7.2.686 Claudio as JOANN?BLEA [phone] Nh natalee PAUL [address] [place] [address] OFFICE [facility] 2022-05-02 2022-05-02 Outpatient [facility] [id number] Univers 08:45:00 08:45:00 [facility] 2022-04-25 2022-04-25 Orders Doctor CRANE 1.2.840.114 [id number] Univers 00:00:00 00:00:00 Only Unassigned, AVA 350.1.13.10 ity of [facility] 4.2.7.2.686 Claudio as [phone] [facility] [address] 2022-04-23 2022-04-23 Outpatient R MIAH [facility] [id number] Univers 13:00:00 13:00:00 PRICILLA ity [facility] 2022-03-13 2022-03-13 Outpatient R NAVJOT [facility] [id number] Univers 11:57:09 23:59:00 PRADIP ity [facility] 2022-03-13 2022-03-13 [facility] 1.2.840.114 [id number] Univers 11:57:09 23:59:00 Encounter Pradip SOLER 350.1.13.10 ity of [place] 4.2.7.2.[place] [id number] [facility] [address] 2022-02-08 2022-02-08 Emergency X [facility] E[facility] [id number] Univers 18:45:00 21:46:00 [facility]ANGELISTA [facility] 2022-02-08 2022-02-08 [facility] 1.2.840.114 [id number] Univers 18:45:00 21:46:00 Evangelista B KARLENE 350.1.13.10 i ty of [place] 4.2.7.2.686 [place] [id number] [facility] [address] 2022-02-08 2022-02-08 Nurse Nurse, [facility] 1.2.840.114 [id number] Univers 18:15:00 18:35:00 Visit Manoj Marrssica Fatwire 350.1.13.10 ity of [place] 4.2.7.2.686 Claudio as JOANN?BLEA [id number] Nh natalee [address] MEDICAL OFFICE BUILDING 2022-02-08 2022-02-08 Outpatient Christine [facility] [id number] Univers 18:15:00 18:15:00 [facility] 2022-02-08 2022-02-08 Outpatient [facility] [id number] Univers 18:00:00 18:00:00 LISA tristan [facility] 2022-01-17 2022-01-17 Outpatient R NAVJOT, [facility] [id number] Univers 00:00:00 00:00:00 PRADIP tristan [facility] 2022-01-09 2022-01-09 Outpatient R NAVJOT [facility] [id number] Univers 00:00:00 00:00:00 [facility] 2021-12-04 2021-12-04 Office [facility] 1.2.222.140 [id number] Univers 13:15:00 14:09:10 Visit [facility] 350.1.13.10 it y of [place] 4.2.7.2.686 Claudio as JOANN?BLEA [id number] Nh bryant[address] OFFICE [facility] 2021-12-04 2021-12-04 Outpatient R RADIOLOGY [facility] RAD [id number] Univers 00:00:00 00:00:00 [facility] 2021-12-03 2021-12-03 Emergency [facility] [id number] Univers 14:02:00 17:34:00 ZACKARY tristan [facility] 2021-12-03 2021-12-03 Emergency [facility] 1.2.148.069 [id number] Univers 14:02:00 17:34:00 Zackary [place] 350.1.13.10 i ty of [place] 4.2.7.2.686 [place] [facility] [id number] [address] 2021-12-03 2021-12-03 Emergency X [facility] ERT [id number] Univers 14:02:00 17:34:00 ZACKARY tristan [facility] 2021-11-19 2021-11-19 Telephone [facility] 1.2.840.114 [id number] Univers 00:00:00 00:00:00 Pee Pagan Fatwire 350.1.13.10 it y [address] [facility] 4.2.7.2.686 Claudio as JOANN?BLEA [phone] Nh dical BEVERLY [address] [place] [address] MEDICAL OFFICE [facility] 2021-11-18 2021-11-[address] [facility] SOR [id number] Univers 06:51:00 11:10:00 PEE ity of [facility] 2021-11-18 2021-11-18 [facility] 1.2.840.114 [id number] Univers 06:51:00 11:10:00 Encounter Pee SOLER 350.1.13.10 ity of [facility] 4.2.7.2.686 [place] SURGICAL [id number] [facility] [address] 2021-11-18 2021-11-18 Surgery [facility] 1.2.893.330 [id number] Univers 08:30:00 09:46:00 Pee OSLER 350.1.13.10 i ty of [facility] 4.2.7.2.686 [place]GICAL [id number] [facility] [address] 2021-11-18 2021-11-18 Surgery [facility] 1.2.338.240 [id number] Univers 08:30:00 09:46:00 Pee SLOER 350.1.13.10 i ty of [place] 4.2.7.2.686 [place] SURGICAL [id number] [facility] [address] 2021-11-18 2021-11-18 Anesthesia Alireza Ceja [facility] 1.2.840.11 [id number] Univers 08:04:00 08:55:00 Event Royce Turcios 350.1.13.10 ity of [facility] 4.2.7.2.686 [place]ICAL [id number] [facility] [address] 2021-11-18 2021-11-18 Orders Doctor ROYCE 1.2.840.114 [id number] Univers 00:00:00 00:00:00 Only Unassigned, AVA 350.1.13.10 ity of [facility] 4.2.7.2.686 Claudio as [id number] [facility] [address] 2021-11-15 2021-11-15 [facility] 1.2.840.114 [id number] Univers 08:13:40 23:59:00 Encounter Pee SOLER 350.1.13.10 ity of [place] 4.2.7.2.686 [place] CAMP[place] [id number] [facility] [address] 2021-11-15 2021-11-15 Outpatient R SANTI [facility] [id number] Univers 08:13:23 23:59:00 PEE alanis [facility] 2021-11-15 2021-11-15 Telephoto Engineer Lizzie, [facility] 1.2.8 40.114 [id number] Univers 09:15:00 09:30:00 Visit Pee Hancock 350.1.13.10 ity of [facility] 4.2.7.2.686 [place] [facility] [phone] Nh dicangelika NAL 353 [facility] 2021-11-06 2021-11-06 Telephone [facility] 1.2.840.114 [id number] Univers 00:00:00 00:00:00 Pee Pagan HEALTH 350.1.13.10 it y of [place] 4.2.7.2.686 Claudio as JOANN?BLEA [phone] Nh dical KNEY 198 [facility] OFFICE [facility] 2021-11-04 2021-11-04 Prep For [facility] 1.2.840.114 [id number] Univers 00:00:00 00:00:00 Surgery Pee Pagan HEALTH 350.1.13.10 it y of [place] 4.2.7.2.686 Claudio as JOANN?BLEA [phone] Nh dical KNEY 198 [facility] OFFICE [facility] 2021-10-31 2021-10-31 Outpatient R [facility] RAD [id number] Univers 08:25:00 23:59:00 PEE alanis [facility] 2021-10-31 2021-10-31 Office [facility] 1.2.731.362 [id number] Univers 08:15:00 09:27:22 Visit Pee Pagan HEALTH 350.1.13.10 it y of [place] 4.2.7.2.686 Claudio as JOANN?BLEA [id number] Nh dical KNEY 198 [facility] OFFICE [facility] 2021-10-31 2021-10-31 Outpatient R [facility] [id number] Univers 08:15:00 08:15:00 PEE alanis [facility] 2021-10-31 2021-10-31 Orders Doctor ROYCE 1.2.840.114 [id number] Univers 00:00:00 00:00:00 Only Unassigned, AVA 350.1.13.10 ity of [facility] 4.2.7.2.686 Claudio as [id number] [address] 2021-10-24 2021-10-24 Outpatient R [facility] [id number] Univers 09:45:00 09:45:00 PEE alanis [facility] 2021-10-18 2021-10-18 Orders Doctor ROYCE 1.2.840.114 [id number] Univers 00:00:00 00:00:00 Only Unassigned, AVA 350.1.13.10 ity of [facility] 4.2.7.2.686 Claudio as [id number] [address] 2021-10-01 2021-10-01 Orders Doctor ROYCE 1.2.840.114 [id number] Univers 00:00:00 00:00:00 Only Unassigned, AVA 350.1.13.10 ity of [facility] 4.2.7.2.686 Claudio as [id number] [address] 2021-09-11 2021-09-11 Office LORENE Gupta [facility] 1.2.840.114 [id number] [place] 15:00:00 15:21:08 Visit Shinil SUGAR 350.1.13.58 [facility] 9.2.7.2.686 [address] [phone] AND 4 WOMENS 2021-09-06 2021-09-06 Emergency [facility] 1.2.932.225 [id number] Univers 10:43:00 12:44:00 Marilia SOLER 350.1.13.10 ity of [facility] 4.2.7.2.686 [place] [id number] [place] [id number] [place] 2021-09-06 2021-09-06 Outpatient R [facility] ERT [id number] Univers 09:40:00 10:58:27 [facility] 2021-09-06 2021-09-06 Urgent [facility] 1.2.840.114 [id number] Univers 09:40:00 10:00:[address] [facility] 350.1.13.10 it y of [place] 4.2.7.2.686 Claudio as JOANN?BLEA [phone] Nh natalee [address] MEDICAL OFFICE BUILDING 2021-09-06 2021-09-06 Outpatient R RICHARD [facility] [id number] Univers 09:40:00 09:40:00 [facility] 2021-09-06 2021-09-06 Orders Doctor ROYCE 1.2.840.114 [id number] Univers 00:00:00 00:00:00 Only Unassigned, AVA 350.1.13.10 ity of [place] [facility] 4.2.7.2.686 Claudio as [phone] [facility] [address] 2021-08-14 2021-08-14 Outpatient R HALEY [facility] [id number] Univers 10:00:00 10:00:00 PET[facility] 2021-08-07 2021-08-07 Emergency [facility] ERT [id number] Univers 10:39:00 11:30:00 [facility] 2021-08-07 2021-08-07 Emergency [facility] 1.2.956.213 [id number] Univers 10:39:00 11:30:00 Ricardo S KARLENE 350.1.13.10 i ty [facility] 4.2.7.2.686 [place] [id number] [facility] [address] 2021-06-25 2021-07-25 OP Therapy nullFlavo SMR [id number] Memoria 16:00:00 05:59:00 Patients r Muir 00 l Ahmet Shaw [facility] 2021-06-25 2021-07-25 OP Therapy nullFlavo SMR [id number] Memoria 16:00:00 05:59:00 Patients r Muir 00 l Ahmet Shaw [facility] 2021-06-25 2021-07-24 Outpatient Tammy 2.16.840. 2.16.840. 1. [id number] 11:00:00 23:59:00 Josh pham 1.764505. 264476.3.61 00 3.615.57 5.57 2021-06-13 2021-06-13 Outpatient R EMANUEL, [facility] [id number] [facility] 08:00:00 08:00:00 ALISTAIR alanis [facility] 2021-06-12 2021-06-12 EXT MH OP Tammy EXT MSRDP 1.2.840.1 14 [id number] [place] 00:00:00 00:00:00 Josh pham 350.1.13.58 Health 9.2.7.2.686 [id number] 0 2021-06-12 2021-06-12 EXT [facility] OP Tammy EXT MSRDP 1.2.840.1 14 [id number] [place] 00:00:00 00:00:00 Josh pham 350.1.13.58 Health 9.2.7.2.686 [id number] 0 2021-06-10 2021-06-10 Emergency [facility] 1.2.645.629 [id number] [facility] 14:17:00 16:42:00 Kendrick Soler 350.1.13.10 i [facility] 4.2.7.2.686 [facility] [id number] [address] 2021-06-07 2021-06-07 Outpatient R HALEY, [facility] [id number] [facility] 10:00:00 10:00:00 BRITTANEY alanis [facility] 2021-06-05 2021-06-[address] [facility] 1.2.840.114 [id number] [place] 08:01:02 09:18:56 Visit Josh pham NIC 350.1.13.58 Health MEDICAL 9.2.7.2.686 [address] 7 [id number] 7 2021-05-18 2021-05-18 Emergency Glendy [facility] 1.2.630.094 [id number] Univers 10:38:00 13:19:00 Ricardo Soler 350.1.13.10 i ty of [place] 4.2.7.2.686 [place] [phone] [facility] [address] 2021-05-18 2021-05-18 Orders Doctor CRANE 1.2.840.114 [id number] Univers 00:00:00 00:00:00 Only Unassigned, AVA 350.1.13.10 ity of [place] [facility] 4.2.7.2.686 Claudio as [phone] [facility] [address] 2021-04-11 2021-04-11 Outpatient TAMMY [facility] [id number] [place] 09:44:24 09:44:24 JOSH Pham h 2021-03-26 2021-03-26 Orders LORENE Siu [facility] 1.2.840.114 [id number] 00:00:00 00:00:00 Only Armond CARRASCO 350.1.13.58 MEDICAL 9.2.7.2.686 [address] 6 [id number] 7 2021-03-26 2021-03-26 Orders LORENE Siu [facility] 1.2.840.114 [id number] [place] 00:00:00 00:00:00 Only Armond CARRASCO 350.1.13.58 [facility] MEDICAL 9.2.7.2.686 [address] [id number] 7 2021-03-19 2021-03-[address] [facility] [id number] Memoria 12:30:00 04:59:00 Services r Outpatient 00 l Imaging Solomon [place] 2021-03-19 2021-03-[address] [facility] [id number] Memoria 12:30:00 04:59:00 Services r Outpatient 00 l Imaging Solomon Muir 2021-03-19 2021-03-19 Outpatient Tammy MHOIP MHOIP [id number] 07:30:00 23:59:00 Josh pham 00 2021-03-18 2021-03-18 EXT MHH OP Tammy EXT MSRDP 1.2.840.1 14 [id number] [place] 00:00:00 00:00:00 e, Josh FALL 350.1.13.58 Health 9.2.7.2.686 [id number] 0 2021-02-27 2021-02-[address] [facility] 1.2.840.114 12 [id number] 08:29:48 10:00:26 Visit e, Josh CARRASCO 350.1.13.58 MEDICAL 9.2.7.2.686 [address] 8 [id number] 7 2021-02-27 2021-02-[address] [facility] 1.2.840.114 12 [id number] [place] 08:29:48 10:00:26 Visit e, Josh CARRASCO 350.1.13.58 Health MEDICAL 9.2.7.2.686 [address] 3 [id number] 7 2021-02-25 2021-02-25 Outpatient [facility] [id number] [place] 10:35:57 10:35:57 Health 2020-11-13 2020-11-13 [facility] Royce Rivers 1.2.840.1 [id number] Methodi 08:27:59 23:59:00 Encounter Jungsik 20644.1.[address] 3.430.2.7 Hospit a .3.017820 l .8 2020-11-13 2020-11-13 Travel 1.2.840.1 1.2.578.542 9985 [id number] Methodi 00:00:00 00:00:[address] 3.430.2.7 0.2.7.3.698 spita .3.172794 084.8 l .8 2020-11-13 2020-11-13 Transcribe Royce Rivers 1.2.840.1 [id number] Methodi 00:00:00 00:00:00 Orders Jungsik 07689.1.[address] 3.430.2.7 Hospit a .3.682523 l .8 2020-11-09 2020-11-09 Orders Doctor CRANE 1.2.840.114 [id number] 00:00:00 00:00:00 Only Unassigned, AVA 350.1.13.10 [facility] 4.2.7.2.686 [id number] 009 2020-10-05 2020-10-05 Telephone [facility] 1.2.086.248 [id number] 00:00:00 00:00:00 Pricilla S Health 350.1.13.10 Surgical 4.2.7.2.686 Specialti [id number] es [address] 2020-09-27 2020-09-27 Hospital [facility] 1.2.840.114 [id number] 08:21:38 23:59:00 Encounter Pee Pagan Health 350.1.13.10 Surgical 4.2.7.2.686 Specialti [id number] es [address] 2020-09-27 2020-09-27 Office [facility] 1.2.642.677 [id number] 07:50:24 08:32:23 Visit Pee Pagan [facility] 350.1.13.10 Surgical 4.2.7.2.686 Specialti [id number] es [address] 2020-09-27 2020-09-27 Outpatient R [facility] [id number] Univers 08:00:00 08:00:00 [facility] 2020-09-24 2020-09-24 Orders Doctor CRANE 1.2.840.114 [id number] 00:00:00 00:00:00 Only Unassigned, AVA 350.1.13.10 [facility] 4.2.7.2.686 [id number] 009 2020-08-23 2020-08-23 Outpatient R [facility] [id number] Univers 08:45:00 08:45:00 [facility] 2020-08-22 2020-08-22 Outpatient R [facility] [id number] [facility] 13:15:00 13:15:00 [facility] 2020-07-25 2020-07-25 Outpatient R [facility] [id number] [facility] 14:00:00 14:00:00 [facility] 2020-07-23 2020-07-23 Ambulatory nullFlavo [facility] [id number] Memoria 20:00:00 20:00:00 Pre-Reg r Cardiology 05 l Reema Forbes n 2020-07-23 2020-07-23 Ambulatory nullFlavo [facility] [id number] Memoria 20:00:00 20:00:00 Pre-Reg r Cardiology 05 l Reema Forbes n 2020-07-23 2020-07-23 Outpatient Maniar, [facility] [id number] 14:00:00 14:00:00 [facility] 05 2020-07-17 2020-07-17 Outpatient Christine MIAH [facility] [id number] Univers 11:15:00 [facility]:15[facility] 2020-07-06 Outpatient R S[facility]I [facility] [id number] Univers 08:45:00 08:45:00 [facility] 2020-06-29 2020-06-29 Outpatient R [facility] [id number] Univers 08:15:00 08:15:00 [facility] 2020-06-22 2020-06-22 Outpatient R HANCOCK [facility] [id number] Univers 10:30:00 10:30:00 [facility] 2020-06-20 2020-06-20 Outpatient R [facility] [id number] [facility] 14:45:00 14:45:00 [facility] 2020-06-07 2020-06-07 Outpatient R S[facility]I [facility] [id number] [facility] 09:15:00 09:15:00 [facility] 2020-05-30 2020-05-30 Outpatient R S[facility]I [facility] [id number] [facility] 13:00:00 13:00:00 [facility] 2020-05-18 2020-05-18 Outpatient R [facility] [id number] Univers 10:45:00 10:45:00 [facility] 2020-05-16 2020-05-16 Outpatient MHIE [facility] [id number] Memoria 13:30:00 13:30:00 05 elle Carbajal 2020-05-09 2020-05-09 Outpatient R [facility], [facility] [id number] Univers 14:15:00 14:15:00 PEEROLO alanis [facility] 2020-05-08 2020-05-08 Outpatient Christine HANCOCK [facility] [id number] Univers 12:00:00 12:00:00 PEEROLO alanis [facility] 2020-05-03 2020-05-03 Outpatient Christine HANCOCK [facility] [id number] Univers 08:00:00 08:00:00 PEEROLO alanis [facility] 2020-04-12 2020-04-12 Outpatient Christine HANCOCK [facility] [id number] Univers 10:45:00 10:45:00 PEEROLO alanis [facility] 2020-04-10 2020-04-10 Outpatient Christine HANCOCK [facility] [id number] Univers 09:00:00 09:00:00 PEEROLO alanis [facility] 2020-02-29 2020-02-29 Outpatient Christine HANCOCK [facility] [id number] Univers 13:45:00 13:45:00 PEEROLO alanis [facility] 2020-02-27 2020-02-27 Outpatient Christine HANCOCK [facility] [id number] Univers 09:42:49 12:45:00 PEEROLO alanis [facility] 2020-02-13 2020-02-13 Outpatient Christine HANCOCK [facility] [id number] Univers 14:06:46 23:59:00 [facility] 2019-12-29 2019-12-29 [facility] [id number] Common 09:49:00 09:49:00 [facility] 2019-12-27 2019-12-27 [facility] [id number] Common 09:02:00 09:02:00 [facility] 2019-12-23 2019-12-25 Outside nullFlavo MNA [id number] Memoria 20:41:52 04:59:59 Medical r Neurology 02 l Records [place] 2019-12-23 2019-12-25 Outside nullFlavo MNA [id number] Memoria 20:41:52 04:59:59 Medical r Neurology 02 l Records [place] 2019-12-23 2019-12-24 Outpatient MHMISCHER MISCHER [id number] 15:41:52 23:59:59 02 2019-12-14 2019-12-14 [facility] [id number] Common 14:36:00 14:36:00 t [facility] 2019-11-18 2019-11-21 Inpatient nullFlavo [facility] [id number] Memoria 11:22:00 18:46:00 r Solomon 00 l [facility] 2019-11-18 2019-11-21 Inpatient nullFlavo [facility] [id number] Memoria 11:22:00 18:46:00 r Channahon 00 l [facility] 2019-11-18 2019-11-21 Outpatient Chika, [facility] [id number] 06:22:00 13:46:00 [facility] 00 2019-11-18 2019-11-21 Inpatient CHIKA, [address] 06:22:00 13:46:00 SADIA 2019-11-14 2019-11-15 Outpatient nullFlavo [facility] [id number] Memoria 18:00:00 04:59:59 r Cardiology 03 l [facility] 2019-11-14 2019-11-15 [place] [id number] Memoria 18:00:00 04:59:59 r Cardiology 03 l [facility] 2019-11-14 2019-11-15 [place] [id number] Memoria 16:00:00 04:59:59 r Cardiology 04 l [facility] 2019-11-14 2019-11-15 [place] [id number] Memoria 16:00:00 04:59:59 r Cardiology 04 l [facility] 2019-11-14 2019-11-14 Outpatient Maniar, [facility] MG [id number] 13:00:00 23:59:59 Gil[facility] H 03 2019-11-14 2019-11-14 Outpatient Maniar, MHMG MG [id number] 11:00:00 23:59:59 [facility] 04 2019-11-14 2019-11-14 Outpatient MHIE MHIE [id number] Memoria 13:00:00 13:00:00 03 elle ShawSolomon 2019-11-14 2019-11-14 Outpatient GUILHERME VANEGAS [id number] Memoria 11:00:00 11:00:00 04 elle Channahon 2019-11-08 2019-11-08 [facility] [id number] Common 09:58:00 09:58:[address] [facility] 2019-11-08 2019-11-08 Out[facility] [id number] Common 09:56:00 09:56:[address] [facility] 2019-10-24 2019-10-24 Out[facility] [id number] Common 21:19:00 21:19:[address] [facility] 2019-10-24 2019-10-24 Out[facility] [id number] Common 21:06:00 21:06:[address] [facility] 2019-10-24 2019-10-24 Out[facility] [id number] Common 09:30:00 09:30:[address] [facility] 2019-09-13 2019-09-13 Out[facility] [id number] Common 13:20:00 13:20:[address] [facility] 2019-08-26 2019-08-26 Out[facility] [id number] Common 08:45:00 08:45:[address] [facility] 2019-08-22 2019-08-22 Out[facility] [id number] Common 01:08:00 01:08:[address] [facility] 2019-08-17 2019-08-17 Out[facility] [id number] Common 09:51:00 09:51:[address] [facility] 2019-08-16 2019-08-16 Out[facility] [id number] Common 13:20:00 13:20:[address] [facility] 2019-07-21 2019-07-21 Out[facility] [id number] Common 14:47:00 14:47:[address] [facility] 2019-07-15 2019-07-15 Out[facility] [id number] Common 10:09:00 10:09:[address] [facility] 2019-07-15 2019-07-15 Outpatient [facility] [id number] Common 08:40:00 08:40:[address] [facility] 2019-07-11 2019-07-11 Outpatient [facility] [id number] Common 13:46:00 13:46:[address] [facility] 2019-06-28 2019-06-28 Outpatient [facility] [id number] Common 02:54:00 02:54:[address] [facility] 2019-06-24 2019-06-24 Out[facility] [id number] Common 09:00:00 09:00:[address] [facility] 2019-06-23 2019-06-23 Outpatient [facility] [id number] Common 15:00:00 15:00:[address] [facility] 2019-05-30 2019-05-30 Out[facility] [id number] Common 15:13:00 15:13:[address] [facility] 2019-05-05 2019-05-05 Out[facility] [id number] Common 15:33:00 15:33:[address] [facility] 2019-04-28 2019-04-28 Out[facility] [id number] Common 09:02:00 09:02:[address] [facility] 2019-04-26 2019-04-26 Out[facility] [id number] Common 13:43:00 13:43:[address] [facility] 2019-04-25 2019-04-25 Outpatient [facility] [id number] Common 22:56:00 22:56:[address] [facility] 2019-04-24 2019-04-24 Outpatient [facility] [id number] Common 11:41:00 11:41:[address] [facility] 2019-04-15 2019-04-15 Outpatient [facility] [id number] Common 09:07:00 09:07:[address] [facility] 2019-04-15 2019-04-15 Out[facility] [id number] Common 08:00:00 08:00:[address] [facility] 2019-03-24 2019-03-24 Outpatient theazzAmy Anderia [id number] Common 09:27:00 09:27:00 Donte Kent Sp yaron DO [facility] 2019-03-16 2019-03-16 Out[facility] [id number] Common 09:16:00 09:16:[address] [facility] 2019-02-22 2019-02-22 Outpatient [facility] [id number] Common 09:03:00 09:03:[address] [facility] 2019-02-18 2019-02-18 Outpatient [facility] [id number] Common 18:38:00 18:38:[address] [facility] 2019-02-18 2019-02-18 Outpatient [facility] [id number] Common 15:06:00 15:06:[address] [facility] 2019-02-16 2019-02-16 Outpatient Reynaldo [facility] 26 [id number] Common 16:06:00 16:06:[address] [facility] [address] [facility] 2019-02-15 2019-02-15 Outpatient eRynaldo [facility] [id number] Common 15:20:00 15:20:[address] [facility] [address] [facility] 2018-04-28 2018-04-30 Phone nullFlavo MNA [id number] Memoria 14:28:00 04:59:59 Message r Neurosurger 01 l tristan Thakur [facility] mary 2018-04-28 2018-04-30 Phone nullFlavo MNA [id number] Memoria 14:28:00 04:59:59 Message r Neurosurger 01 l tristan Thakur [facility] 2018-04-28 2018-04-29 Outpatient MHMISCHER MHMISCHER [id number] 09:28:00 23:59:59 2018-04-07 2018-04-09 Phone nullFlavo MNA Spine [id number] Memoria 19:39:00 04:59:59 Message r Clinic [facility] 00 elle Carbajal 2018-04-07 2018-04-09 Phone nullFlavo MNA Spine [id number] Memoria 19:39:00 04:59:59 Message r Clinic [facility] 00 elle Carbajal 2018-04-07 2018-04-08 Outpatient MHMISCHER MHMISCHER [id number] 14:39:00 23:59:59 2018-02-02 2018-02-02 Outpatient MHIE MHIE [id number] Memoria 10:45:00 10:45:00 02 elle Carbajal 2018-02-02 2018-02-02 Outpatient MHIE MHIE [id number] Memoria 10:45:00 10:45:00 02 elle Carbajal 2017-11-30 2017-11-30 Outpatient MHIE MHIE [id number] Memoria 13:00:00 13:00:00 01 elle Carbajal 2017-11-30 2017-11-30 Outpatient MHIE MHIE [id number] Memoria 13:00:00 13:00:00 01 elle Carbajal 2017-11-12 2017-11-12 Outpatient MHIE IE [id number] [facility] 11:30:00 11:30:00 00 l Solomon 2017-11-12 2017-11-12 Outpatient ROSA ROSA [id number] [facility] 11:30:00 11:30:00 00 elle Carbajal Results Test Description Test Time Test Comments Results Result Comments Source BASIC METABOLIC PANEL (NA, K, CL, CO2, GLUCOSE, BUN, 2022-06 18:33:12 CREATININE, CA) Test Item Value Reference Range Interpretation Comme nts NA (test code = 4005428495) 137 mmol/L 135-145 K (test code = 8067437028) 4.6 mmol/L 3.5-5 CL (test code = 4502295044) 102 mmol/L 98-108 CO2 TOTAL (test code = 7873401116) 29 mmol/L 23-31 AGAP (test code = 4979940070) 2-16 BUN (test code = 3024288464) 17 mg/dL 7-23 GLUCOSE (test code = 3714921984) 180 mg/dL 70-110 H CREATININE (test code = 0.49 mg/dL 0.5-1.04 L 2738620105) CALCIUM (test code = 8237814000) 9.7 mg/dL 8.6-10.6 eGFR (test code = 0994259675) mL/min/1.73m2 ARIANA (test code = ARIANA) Association of Glomerular Filtration Rate (GFR) and Staging of Kidney Disease* + +-------- + ------+| GFR (mL/min/1.73 m2) ?| With Kidney Damage ?| ?Without Kidney Damage+ +-- + +| ?>90 ?| ?Stage one ?| ? Normal ?+ +------- + -------+| ?60-89 ?| ?Stage two ?| ? Decreased GFR ? + +-------- + ------+| ?30-59 ?| ?Stage three ?| ? Stage three ? + +-------- + ------+| ?15-29 ?| ?Stage four ? | ? Stage four ?+ +------- + -------+| ?<15 (or dialysis) ? ?| ?Stage five ? | ? Stage five ?+ +------- + -------+ *Each stage assumes the associated GFR [...] or abnormalities in imaging tests). Lab Interpretation (test code = Abnormal 58821-0) [facility] 18[facility]33[facility]12 Test Item Value Reference Range Interpretation Comments MAGNESIUM (test code = 1996964071) 1.8 mg/dL 1.7-2.4 Lab Interpretation (test code = Normal 13096-4) [facility] [id number] 18:32:31 Test Item Value Reference Range Interpretation Comments CK (test code = 1847824312) 89 U/L 33-194 Lab Interpretation (test code = Normal 17077-1) [facility]Asp: L greater trochanteric bursa 2021-02-27 14:41:46Josh [...] to verify the correct patient, procedure, equipment, administrative support manager and site/side marked as required. Patient was prepped and draped in the usual sterile fashion.[facility]- XR HIP W/PEL UNI 2+V [id number] 10:05:00 [facility] 1965 Sex: F Patient Name: ARI GODOY Unit No: [id number] EXAMS: CPT CODE: [id number] XR HIP W/[place] UNI 2+[place] [address] AP pelvis with frog-leg view left hip LOCATION: T18 INDICATION: Pain Postsurgical changes L5-S1. Bony alignment is normal. No fracture, dislocation , osteolytic or osteoblastic lesions are identified. Soft tissues unremarkable. Probable chronic irregularity greater trochanter left hip. IMPRESSION: No acute findings. at 1005 Reportedand signed by: Royce Morse MD CC: Francisco Andrea MD Technologist: Archana Marley, RT(R) Transcrpt Date/Tm/Trnsp: 12/14/2020 (1005) t.GERRIR.JTM Orig Print D/T: S: 12/14/2020 (1009) [facility] NAME: ARI GODOY [address] [facility] [address] PHYS: [place] [address] : 1965 AGE: 55 SEX: F LOC: [place] PHONE #: [phone] EXAMDATE: 12/14/2020 STATUS: REG CLI FAX #: [phone] RADIOLOGY NO: PAGE 1 Signed ReportXR Lumbar Spine Ap Lateral Flexion And Jmqqwqgcf3143-73-62 18:32:20EXAMINATION: Lateral neutral, flexion and extension views; [...] IMPRESSION: Relatively stable postoperative and degenerative changes. 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, Polytrauma critical T L spine injury suspected, DDDCOMPARISON: Lumbar spine x-rays from May 03, 2019.FINDINGS:There isrelatively stable anterior and posterior fusion from L5 [...] the pelvis and right upper quadrant.IMPRESSION:Relatively stable postoperative and degenerative changes.[id number] 09:56:00 Test Item Value Reference Range Interpretation Comments Glucose Lvl (test code = Glucose Lvl) 215 70-99 [facility]2020-03-16 09:56:00 Test Item Value Reference Range Interpretation Comments BUN (test code = BUN) 15 7-22 [facility]2020-03-16 09:56:00 Test Item Value Reference Range Interpretation Comments Creatinine Lvl (test code = Creatinine 0.50 0.50-1.40 Lvl) [facility]2020-03-16 09:56:00 Test Item Value Reference Range Interpretation Comments Sodium Lvl (test code = Sodium Lvl) 137 135-145 [place] [address]-03-16 09:56:00 Test Item Value Reference Range Interpretation Comments Potassium Lvl (test code = Potassium 4.5 3.5-5.1 Lvl) [place] [address]-03-16 09:56:00 Test Item Value Reference Range Interpretation Comments Chloride Lvl (test code = Chloride Lvl) 102 95-109 [place] [address]-03-16 09:56:00 Test Item Value Reference Range Interpretation Comments CO2 (test code = CO2) 30 24-32 [place] [address]-03-16 09:56:00 Test Item Value Reference Range Interpretation Comments Calcium Lvl (test code = Calcium Lvl) 9.3 8.5-10.5 [place] [address]-03-16 09:56:00 Test Item Value Reference Range Interpretation Comments AGAP (test code = AGAP) 9.5 10.0-20.0 [place] [address]-03-16 09:56:00 Test Item Value Reference Range Interpretation Comments eGFR (test code = eGFR) 125 [place] [address]-03-16 09:56:00 Test Item Value Reference Range Interpretation Comments Segs (test code = Segs) 71.7 45.0-75.0 [place] [address]-03-16 09:56:00 Test Item Value Reference Range Interpretation Comments Lymphocytes (test code = Lymphocytes) 17.6 20.0-40.0 [place] [address]-03-16 09:56:00 Test Item Value Reference Range Interpretation Comments Monocytes (test code = Monocytes) 8.4 2.0-12.0 [place] [address]-03-16 09:56:00 Test Item Value Reference Range Interpretation Comments Eosinophils (test code = 1.7 See_Comment [A utomated message] The Eosinophils) system which ge nerated this result tra nsmitted reference range : <=4.0. The reference r sharon was not used to int erpret this result as normal/abnormal . [place] [address]-03-16 09:56:00 Test Item Value Reference Range Interpretation Comments Basophils (test code = 0.6 See_Comment [Aut omated message] The Basophils) system which ge nerated this result tra nsmitted reference range : <=1.0. The reference r sharon was not used to int erpret this result as normal/abnormal . [place] 684080-03-16 09:56:00 Test Item Value Reference Range Interpretation Comments Neutrophils # (test code = Neutrophils 8.2 1.5-8.1 #) [facility]93[facility]-76 09:56:00 Test Item Value Reference Range Interpretation Comments Lymphocytes # (test code = Lymphocytes 2.0 1.0-5.5 #) [place] [address]-03-16 09:56:00 Test Item Value Reference Range Interpretation Comments Monocytes # (test code 1.0 See_Comment [Aut omated message] The = Monocytes #) system which generated this result tra nsmitted reference range : <=0.8. The reference r sharon was not used to int erpret this result as normal/abnormal . [place] 684080-03-16 09:56:00 Test Item Value Reference Range Interpretation Comments Eosinophils # (test code 0.2 See_Comment [A utomated message] The = Eosinophils #) system whic h generated this result tra nsmitted reference range : <=0.5. The reference r sharon was not used to int erpret this result as normal/abnormal . [place] 684080-03-16 09:56:00 Test Item Value Reference Range Interpretation Comments Basophils # (test code 0.1 See_Comment [Aut omated message] The = Basophils #) system which generated this result tra nsmitted reference range : <=0.2. The reference r sharon was not used to int erpret this result as normal/abnormal . [facility]ksexamYZLQCQOTBD9058-18-86 09:56:00 Test Item Value Reference Range Interpretation Comments WBC (test code = WBC) 11.5 3.7-10.4 [place] [address]-03-16 09:56:00 Test Item Value Reference Range Interpretation Comments RBC (test code = RBC) 4.12 4.20-5.40 [place] [address]-03-16 09:56:00 Test Item Value Reference Range Interpretation Comments Hgb (test code = Hgb) 13.0 12.0-16.0 [place] [address]-03-16 09:56:00 Test Item Value Reference Range Interpretation Comments Hct (test code = Hct) 38.1 36.0-48.0 [place] [address]-03-16 09:56:00 Test Item Value Reference Range Interpretation Comments MCV (test code = MCV) 92.5 80.0-98.0 [place] [address]-03-16 09:56:00 Test Item Value Reference Range Interpretation Comments MCH (test code = MCH) 31.6 pg 27.0-31.0 [place] [address]-03-16 09:56:00 Test Item Value Reference Range Interpretation Comments MCHC (test code = MCHC) 34.2 32.0-36.0 [place] [address]-03-16 09:56:00 Test Item Value Reference Range Interpretation Comments RDW (test code = RDW) 13.3 11.5-14.5 [place] [address]-03-16 09:56:00 Test Item Value Reference Range Interpretation Comments Platelet (test code = Platelet) 260 133-450 [place] [address]-03-16 09:56:00 Test Item Value Reference Range Interpretation Comments MPV (test code = MPV) 8.0 7.4-10.4 [place] [address]-03-16 09:56:00 Test Item Value Reference Range Interpretation Comments Glucose Lvl (test code = Glucose Lvl) 215 70-99 [place] [address]-03-16 09:56:00 Test Item Value Reference Range Interpretation Comments BUN (test code = BUN) 15 7-22 [place] [address]-03-16 09:56:00 Test Item Value Reference Range Interpretation Comments Creatinine Lvl (test code = Creatinine 0.50 0.50-1.40 Lvl) [place] [address]-03-16 09:56:00 Test Item Value Reference Range Interpretation Comments Sodium Lvl (test code = Sodium Lvl) 137 135-145 [place] [address]-03-16 09:56:00 Test Item Value Reference Range Interpretation Comments Potassium Lvl (test code = Potassium 4.5 3.5-5.1 Lvl) [place] 911740-03-16 09:56:00 Test Item Value Reference Range Interpretation Comments Chloride Lvl (test code = Chloride Lvl) 102 95-109 [place] 911740-03-16 09:56:00 Test Item Value Reference Range Interpretation Comments CO2 (test code = CO2) 30 24-32 [place] [address]-03-16 09:56:00 Test Item Value Reference Range Interpretation Comments Calcium Lvl (test code = Calcium Lvl) 9.3 8.5-10.5 [place] 911740-03-16 09:56:00 Test Item Value Reference Range Interpretation Comments AGAP (test code = AGAP) 9.5 10.0-20.0 [place] [address]-03-16 09:56:00 Test Item Value Reference Range Interpretation Comments eGFR (test code = eGFR) 125 [facility]CxghcpwPPPXDSZRCL8752-28-32 09:56:00 Test Item Value Reference Range Interpretation Comments Segs (test code = Segs) 71.7 45.0-75.0 [place] [address]-03-16 09:56:00 Test Item Value Reference Range Interpretation Comments Lymphocytes (test code = Lymphocytes) 17.6 20.0-40.0 [place] [address]-03-16 09:56:00 Test Item Value Reference Range Interpretation Comments Monocytes (test code = Monocytes) 8.4 2.0-12.0 [place] [address]-03-16 09:56:00 Test Item Value Reference Range Interpretation Comments Eosinophils (test code = 1.7 See_Comment [A utomated message] The Eosinophils) system which ge nerated this result tra nsmitted reference range : <=4.0. The reference r sharon was not used to int erpret this result as normal/abnormal . [place] [address]-03-16 09:56:00 Test Item Value Reference Range Interpretation Comments Basophils (test code = 0.6 See_Comment [Aut omated message] The Basophils) system which ge nerated this result tra nsmitted reference range : <=1.0. The reference r sharon was not used to int erpret this result as normal/abnormal . [place] [address]-03-16 09:56:00 Test Item Value Reference Range Interpretation Comments Neutrophils # (test code = Neutrophils 8.2 1.5-8.1 #) [place] 684080-03-16 09:56:00 Test Item Value Reference Range Interpretation Comments Lymphocytes # (test code = Lymphocytes 2.0 1.0-5.5 #) [facility][id number] 09:56:00 Test Item Value Reference Range Interpretation Comments Monocytes # (test code 1.0 See_Comment [Aut omated message] The = Monocytes #) system which generated this result tra nsmitted reference range : <=0.8. The reference r sharon was not used to int erpret this result as normal/abnormal . [facility] NortheastCsescmsEOITXNTCJN0840-39-35 09:56:00 Test Item Value Reference Range Interpretation Comments Eosinophils # (test code 0.2 See_Comment [A utomated message] The = Eosinophils #) system whic h generated this result tra nsmitted reference range : <=0.5. The reference r sharon was not used to int erpret this result as normal/abnormal . [facility] NortheastAemojhvXYSRERCIZN7197-70-45 09:56:00 Test Item Value Reference Range Interpretation Comments Basophils # (test code 0.1 See_Comment [Aut omated message] The = Basophils #) system which generated this result tra nsmitted reference range : <=0.2. The reference r sharon was not used to int erpret this result as normal/abnormal . [facility] NortheastXcazcckGTUABFOPJL6045-48-47 09:56:00 Test Item Value Reference Range Interpretation Comments WBC (test code = WBC) 11.5 3.7-10.4 [place] [address]-03-16 09:56:00 Test Item Value Reference Range Interpretation Comments RBC (test code = RBC) 4.12 4.20-5.40 [place] [address]-03-16 09:56:00 Test Item Value Reference Range Interpretation Comments Hgb (test code = Hgb) 13.0 12.0-16.0 [place] [address]-03-16 09:56:00 Test Item Value Reference Range Interpretation Comments Hct (test code = Hct) 38.1 36.0-48.0 [place] 684080-03-16 09:56:00 Test Item Value Reference Range Interpretation Comments MCV (test code = MCV) 92.5 80.0-98.0 [place] [address]-03-16 09:56:00 Test Item Value Reference Range Interpretation Comments MCH (test code = MCH) 31.6 pg 27.0-31.0 [place] 88829-03-16 09:56:00 Test Item Value Reference Range Interpretation Comments MCHC (test code = MCHC) 34.2 32.0-36.0 [place] [address]-03-16 09:56:00 Test Item Value Reference Range Interpretation Comments RDW (test code = RDW) 13.3 11.5-14.5 [place] [address]-03-16 09:56:00 Test Item Value Reference Range Interpretation Comments Platelet (test code = Platelet) 260 133-450 [place] [address]-03-16 09:56:00 Test Item Value Reference Range Interpretation Comments MPV (test code = MPV) 8.0 7.4-10.4 [place] 911740-03-15 07:18:00 Test Item Value Reference Range Interpretation Comments Glucose Lvl (test code = Glucose Lvl) 205 70-99 [place] 911740-03-15 07:18:00 Test Item Value Reference Range Interpretation Comments BUN (test code = BUN) 18 7-22 [place] [address]-03-15 07:18:00 Test Item Value Reference Range Interpretation Comments Creatinine Lvl (test code = Creatinine 0.60 0.50-1.40 Lvl) [place] 911740-03-15 07:18:00 Test Item Value Reference Range Interpretation Comments Sodium Lvl (test code = Sodium Lvl) 137 135-145 [place] 911740-03-15 07:18:00 Test Item Value Reference Range Interpretation Comments Potassium Lvl (test code = Potassium 4.2 3.5-5.1 Lvl) [place] [address]-03-15 07:18:00 Test Item Value Reference Range Interpretation Comments Chloride Lvl (test code = Chloride Lvl) 102 95-109 [place] 911740-03-15 07:18:00 Test Item Value Reference Range Interpretation Comments CO2 (test code = CO2) 28 24-32 [place] 911740-03-15 07:18:00 Test Item Value Reference Range Interpretation Comments Calcium Lvl (test code = Calcium Lvl) 8.8 8.5-10.5 [place] 911740-03-15 07:18:00 Test Item Value Reference Range Interpretation Comments AGAP (test code = AGAP) 11.2 10.0-20.0 [facility]2020-03-15 07:18:00 Test Item Value Reference Range Interpretation Comments eGFR (test code = eGFR) 118 [facility]2020-03-15 07:18:00 Test Item Value Reference Range Interpretation Comments Magnesium Lvl (test code = Magnesium 1.8 1.8-2.4 Lvl) [facility]2020-03-15 07:18:00 Test Item Value Reference Range Interpretation Comments Phosphorus (test code = Phosphorus) 3.2 2.5-4.5 [place] 684080-03-15 07:18:00 Test Item Value Reference Range Interpretation Comments WBC (test code = WBC) 13.5 3.7-10.4 [place] 684080-03-15 07:18:00 Test Item Value Reference Range Interpretation Comments RBC (test code = RBC) 3.98 4.20-5.40 [place] [address]-03-15 07:18:00 Test Item Value Reference Range Interpretation Comments Hgb (test code = Hgb) 12.2 12.0-16.0 [place] [address]-03-15 07:18:00 Test Item Value Reference Range Interpretation Comments Hct (test code = Hct) 37.0 36.0-48.0 [place] [address]-03-15 07:18:00 Test Item Value Reference Range Interpretation Comments MCV (test code = MCV) 93.0 80.0-98.0 [place] [address]-03-15 07:18:00 Test Item Value Reference Range Interpretation Comments MCH (test code = MCH) 30.7 pg 27.0-31.0 [place] [address]-03-15 07:18:00 Test Item Value Reference Range Interpretation Comments MCHC (test code = MCHC) 33.0 32.0-36.0 [place] [address]-03-15 07:18:00 Test Item Value Reference Range Interpretation Comments RDW (test code = RDW) 13.2 11.5-14.5 [place] 684080-03-15 07:18:00 Test Item Value Reference Range Interpretation Comments Platelet (test code = Platelet) 256 133-450 [place] [address]-03-15 07:18:00 Test Item Value Reference Range Interpretation Comments MPV (test code = MPV) 8.1 7.4-10.4 [place] [address]-03-15 07:18:00 Test Item Value Reference Range Interpretation Comments RBC Morph (test code = Normal (11/20/19 2:18 RBC Morph) AM) [place] [address]-03-15 07:18:00 Test Item Value Reference Range Interpretation Comments Plt Morph (test code = Normal (11/20/19 2:18 Plt Morph) AM) [place] [address]-03-15 07:18:00 Test Item Value Reference Range Interpretation Comments Segs (test code = Segs) 83.0 45.0-75.0 [place] [address]-03-15 07:18:00 Test Item Value Reference Range Interpretation Comments Lymphocytes (test code = Lymphocytes) 11.2 20.0-40.0 [place] [address]-03-15 07:18:00 Test Item Value Reference Range Interpretation Comments Monocytes (test code = Monocytes) 4.4 2.0-12.0 [place] [address]-03-15 07:18:00 Test Item Value Reference Range Interpretation Comments Eosinophils (test code = 1.1 See_Comment [A utomated message] The Eosinophils) system which ge nerated this result tra nsmitted reference range : <=4.0. The reference r sharon was not used to int erpret this result as normal/abnormal . [facility]utemuqFIYCOWPZAU9145-35-82 07:18:00 Test Item Value Reference Range Interpretation Comments Basophils (test code = 0.3 See_Comment [Aut omated message] The Basophils) system which ge nerated this result tra nsmitted reference range : <=1.0. The reference r sharon was not used to int erpret this result as normal/abnormal . [place] [address]-03-15 07:18:00 Test Item Value Reference Range Interpretation Comments Neutrophils # (test code = Neutrophils 11.2 1.5-8.1 #) [place] [address]-03-15 07:18:00 Test Item Value Reference Range Interpretation Comments Lymphocytes # (test code = Lymphocytes 1.5 1.0-5.5 #) [facility]RuinjlxMZWKMFAGXA6132-96-91 07:18:00 Test Item Value Reference Range Interpretation Comments Monocytes # (test code 0.6 See_Comment [Aut omated message] The = Monocytes #) system which generated this result tra nsmitted reference range : <=0.8. The reference r sharon was not used to int erpret this result as normal/abnormal . [place] 684080-03-15 07:18:00 Test Item Value Reference Range Interpretation Comments Eosinophils # (test code 0.1 See_Comment [A utomated message] The = Eosinophils #) system whic h generated this result tra nsmitted reference range : <=0.5. The reference r sharon was not used to int erpret this result as normal/abnormal . [facility]WirfpehMFOHHTPWWP4588-51-95 07:18:00 Test Item Value Reference Range Interpretation Comments Basophils # (test code 0.0 See_Comment [Aut omated message] The = Basophils #) system which generated this result tra nsmitted reference range : <=0.2. The reference r sharon was not used to int erpret this result as normal/abnormal . [facility] SystemWolongeROID [id number] 07:18:00 Test Item Value Reference Range Interpretation Comments Ca Ion WB (test code = Ca Ion WB) 1.07 1.05-1.25 [facility] AllianceL[employer], [employer]ROID [id number] 07:18:00 Test Item Value Reference Range Interpretation Comments Ca Norm WB (test code = Ca Norm WB) 1.09 1.05-1.25 [facility] [id number] 07:18:00 Test Item Value Reference Range Interpretation Comments Glucose Lvl (test code = Glucose Lvl) 205 70-99 [facility] [id number] 07:18:00 Test Item Value Reference Range Interpretation Comments BUN (test code = BUN) 18 7-22 [facility] [id number] 07:18:00 Test Item Value Reference Range Interpretation Comments Creatinine Lvl (test code = Creatinine 0.60 0.50-1.40 Lvl) [facility] [id number] 07:18:00 Test Item Value Reference Range Interpretation Comments Sodium Lvl (test code = Sodium Lvl) 137 135-145 [place] [address]-03-15 07:18:00 Test Item Value Reference Range Interpretation Comments Potassium Lvl (test code = Potassium 4.2 3.5-5.1 Lvl) [place] [address]-03-15 07:18:00 Test Item Value Reference Range Interpretation Comments Chloride Lvl (test code = Chloride Lvl) 102 95-109 [place] [address]-03-15 07:18:00 Test Item Value Reference Range Interpretation Comments CO2 (test code = CO2) 28 24-32 [place] [address]-03-15 07:18:00 Test Item Value Reference Range Interpretation Comments Calcium Lvl (test code = Calcium Lvl) 8.8 8.5-10.5 [place] [address]-03-15 07:18:00 Test Item Value Reference Range Interpretation Comments AGAP (test code = AGAP) 11.2 10.0-20.0 [address]03-15 07:18:00 Test Item Value Reference Range Interpretation Comments eGFR (test code = eGFR) 118 [place] [address]-03-15 07:18:00 Test Item Value Reference Range Interpretation Comments Magnesium Lvl (test code = Magnesium 1.8 1.8-2.4 Lvl) [place] [address]-03-15 07:18:00 Test Item Value Reference Range Interpretation Comments Phosphorus (test code = Phosphorus) 3.2 2.5-4.5 [place] [address]-03-15 07:18:00 Test Item Value Reference Range Interpretation Comments WBC (test code = WBC) 13.5 3.7-10.4 [place] [address]-03-15 07:18:00 Test Item Value Reference Range Interpretation Comments RBC (test code = RBC) 3.98 4.20-5.[address]03-15 07:18:00 Test Item Value Reference Range Interpretation Comments Hgb (test code = Hgb) 12.2 12.0-16.[address]03-15 07:18:00 Test Item Value Reference Range Interpretation Comments Hct (test code = Hct) 37.0 36.0-48.0 [place] [address]-03-15 07:18:00 Test Item Value Reference Range Interpretation Comments MCV (test code = MCV) 93.0 80.0-98.0 [place] [address]-03-15 07:18:00 Test Item Value Reference Range Interpretation Comments MCH (test code = MCH) 30.7 pg 27.0-31.0 [place] [address]-03-15 07:18:00 Test Item Value Reference Range Interpretation Comments MCHC (test code = MCHC) 33.0 32.0-36.0 [place] [address]-03-15 07:18:00 Test Item Value Reference Range Interpretation Comments RDW (test code = RDW) 13.2 11.5-14.5 [place] [address]-03-15 07:18:00 Test Item Value Reference Range Interpretation Comments Platelet (test code = Platelet) 256 133-450 [place] 684080-03-15 07:18:00 Test Item Value Reference Range Interpretation Comments MPV (test code = MPV) 8.1 7.4-10.4 [place] [address]-03-15 07:18:00 Test Item Value Reference Range Interpretation Comments RBC Morph (test code = Normal (11/20/19 2:18 RBC Morph) AM) [place] [address]-03-15 07:18:00 Test Item Value Reference Range Interpretation Comments Plt Morph (test code = Normal (11/20/19 2:18 Plt Morph) AM) [place] [address]-03-15 07:18:00 Test Item Value Reference Range Interpretation Comments Segs (test code = Segs) 83.0 45.0-75.0 [place] [address]-03-15 07:18:00 Test Item Value Reference Range Interpretation Comments Lymphocytes (test code = Lymphocytes) 11.2 20.0-40.0 [place] [address]-03-15 07:18:00 Test Item Value Reference Range Interpretation Comments Monocytes (test code = Monocytes) 4.4 2.0-12.0 [place] [address]-03-15 07:18:00 Test Item Value Reference Range Interpretation Comments Eosinophils (test code = 1.1 See_Comment [A utomated message] The Eosinophils) system which ge nerated this result tra nsmitted reference range : <=4.0. The reference r sharon was not used to int erpret this result as normal/abnormal . [place] 684080-03-15 07:18:00 Test Item Value Reference Range Interpretation Comments Basophils (test code = 0.3 See_Comment [Aut omated message] The Basophils) system which ge nerated this result tra nsmitted reference range : <=1.0. The reference r sharon was not used to int erpret this result as normal/abnormal . [place] 684080-03-15 07:18:00 Test Item Value Reference Range Interpretation Comments Neutrophils # (test code = Neutrophils 11.2 1.5-8.1 #) [place] 684080-03-15 07:18:00 Test Item Value Reference Range Interpretation Comments Lymphocytes # (test code = Lymphocytes 1.5 1.0-5.5 #) [place] [address]-03-15 07:18:00 Test Item Value Reference Range Interpretation Comments Monocytes # (test code 0.6 See_Comment [Aut omated message] The = Monocytes #) system which generated this result tra nsmitted reference range : <=0.8. The reference r sharon was not used to int erpret this result as normal/abnormal . [facility] NortheastNtjbobeFQVOUZMLSH0333-63-76 07:18:00 Test Item Value Reference Range Interpretation Comments Eosinophils # (test code 0.1 See_Comment [A utomated message] The = Eosinophils #) system whic h generated this result tra nsmitted reference range : <=0.5. The reference r sharon was not used to int erpret this result as normal/abnormal . [facility] NortheastGdcnnvoQCCUNXPEUW8432-86-00 07:18:00 Test Item Value Reference Range Interpretation Comments Basophils # (test code 0.0 See_Comment [Aut omated message] The = Basophils #) system which generated this result tra nsmitted reference range : <=0.2. The reference r sharon was not used to int erpret this result as normal/abnormal . [facility] AlliancePARATHYROID [id number] 07:18:00 Test Item Value Reference Range Interpretation Comments Ca Ion WB (test code = Ca Ion WB) 1.07 1.05-1.25 [place] 552890-03-15 07:18:00 Test Item Value Reference Range Interpretation Comments Ca Norm WB (test code = Ca Norm WB) 1.09 1.05-1.25 [facility]2020-03-14 07:06:00 Test Item Value Reference Range Interpretation Comments Phosphorus (test code = Phosphorus) 4.0 2.5-4.5 [facility]2020-03-14 07:06:00 Test Item Value Reference Range Interpretation Comments Magnesium Lvl (test code = Magnesium 1.7 1.8-2.4 Lvl) [facility]2020-03-14 07:06:00 Test Item Value Reference Range Interpretation Comments Glucose Lvl (test code = Glucose Lvl) 100 70-99 [facility]2020-03-14 07:06:00 Test Item Value Reference Range Interpretation Comments BUN (test code = BUN) 13 7-22 [place] 911740-03-14 07:06:00 Test Item Value Reference Range Interpretation Comments Creatinine Lvl (test code = Creatinine 0.50 0.50-1.40 Lvl) [facility]2020-03-14 07:06:00 Test Item Value Reference Range Interpretation Comments Sodium Lvl (test code = Sodium Lvl) 142 135-145 [facility]2020-03-14 07:06:00 Test Item Value Reference Range Interpretation Comments Potassium Lvl (test code = Potassium 3.8 3.5-5.1 Lvl) [facility]2020-03-14 07:06:00 Test Item Value Reference Range Interpretation Comments Chloride Lvl (test code = Chloride Lvl) 105 95-109 [facility]2020-03-14 07:06:00 Test Item Value Reference Range Interpretation Comments CO2 (test code = CO2) 29 24-32 [facility]2020-03-14 07:06:00 Test Item Value Reference Range Interpretation Comments AGAP (test code = AGAP) 11.8 10.0-20.0 [place] 911740-03-14 07:06:00 Test Item Value Reference Range Interpretation Comments Calcium Lvl (test code = Calcium Lvl) 8.5 8.5-10.5 [facility]2020-03-14 07:06:00 Test Item Value Reference Range Interpretation Comments B/C Ratio (test code = B/C Ratio) 26 1 6-25 [place] [address]-03-14 07:06:00 Test Item Value Reference Range Interpretation Comments Total Protein (test code = Total 6.9 6.4-8.4 Protein) [place] 911740-03-14 07:06:00 Test Item Value Reference Range Interpretation Comments Albumin Lvl (test code = Albumin Lvl) 3.1 3.5-5.0 [place] [address]-03-14 07:06:00 Test Item Value Reference Range Interpretation Comments Globulin (test code = Globulin) 3.8 2.7-4.2 [place] [address]-03-14 07:06:00 Test Item Value Reference Range Interpretation Comments A/G Ratio (test code = A/G Ratio) 0.8 1 0.7-1.6 [place] [address]-03-14 07:06:00 Test Item Value Reference Range Interpretation Comments ALT (test code = ALT) 132 See_Comment [Auto mated message] The system which ge nerated this result transmit roberto carlos reference range : <=65. The reference range was not used to interpr et this result as tyler l/abnormal. [place] 911740-03-14 07:06:00 Test Item Value Reference Range Interpretation Comments AST (test code = AST) 184 See_Comment [Auto mated message] The system which ge nerated this result transmit roberto carlos reference range : <=37. The reference range was not used to interpr et this result as tyler l/abnormal. [place] 911740-03-14 07:06:00 Test Item Value Reference Range Interpretation Comments Alk Phos (test code = Alk Phos) 109 39-136 [place] [address]-03-14 07:06:00 Test Item Value Reference Range Interpretation Comments Bili Total (test code = Bili Total) 0.4 0.2-1.3 [place] [address]-03-14 07:06:00 Test Item Value Reference Range Interpretation Comments eGFR (test code = eGFR) 125 [place] 684080-03-14 07:06:00 Test Item Value Reference Range Interpretation Comments WBC (test code = WBC) 9.8 3.7-10.4 [place] [address]-03-14 07:06:00 Test Item Value Reference Range Interpretation Comments RBC (test code = RBC) 3.94 4.20-5.40 [facility]FtychssTZXYWRJVVP3722-26-87 07:06:00 Test Item Value Reference Range Interpretation Comments Hgb (test code = Hgb) 12.4 12.0-16.0 [facility] NortheastLqmpazgKYVPMPHJLV5671-20-95 07:06:00 Test Item Value Reference Range Interpretation Comments Hct (test code = Hct) 36.6 36.0-48.0 [facility] NortheastCldmrweWLSQWSHJAN9520-05-60 07:06:00 Test Item Value Reference Range Interpretation Comments MCV (test code = MCV) 92.9 80.0-98.0 [facility] NortheastIilmukiWNFYVVQYWS8506-19-00 07:06:00 Test Item Value Reference Range Interpretation Comments MCH (test code = MCH) 31.4 pg 27.0-31.0 [facility] NortheastMrgropaHDWMMGVWJX1381-56-79 07:06:00 Test Item Value Reference Range Interpretation Comments MCHC (test code = MCHC) 33.8 32.0-36.0 [facility] NortheastScqwgwvZQQOPUDNXY8479-00-29 07:06:00 Test Item Value Reference Range Interpretation Comments RDW (test code = RDW) 13.1 11.5-14.5 [facility] NortheastJwbryzuXWTRPTRICI9233-54-80 07:06:00 Test Item Value Reference Range Interpretation Comments Platelet (test code = Platelet) 246 133-450 [facility] NortheastOqlemglOGNISKWUQW1696-60-38 07:06:00 Test Item Value Reference Range Interpretation Comments MPV (test code = MPV) 8.0 7.4-10.4 [facility] NortheastTqflitdENADCCEVUW7107-78-59 07:06:00 Test Item Value Reference Range Interpretation Comments PTT (test code = PTT) 31.4 s 22.9-35.8 [facility] NortheastRmwsolwAYFIWTCLPC5771-58-82 07:06:00 Test Item Value Reference Range Interpretation Comments PT (test code = PT) 13.7 s 12.0-14.7 [facility] NortheastWwziogqRATFBHAFQW0287-42-15 07:06:00 Test Item Value Reference Range Interpretation Comments INR (test code = INR) 1.05 1 0.85-1.17 [facility] NortheastXdrgehxVJBAYQTKNO5042-62-86 07:06:00 Test Item Value Reference Range Interpretation Comments Segs (test code = Segs) 68.3 45.0-75.0 [place] 684080-03-14 07:06:00 Test Item Value Reference Range Interpretation Comments Lymphocytes (test code = Lymphocytes) 21.7 20.0-40.0 [place] 684080-03-14 07:06:00 Test Item Value Reference Range Interpretation Comments Monocytes (test code = Monocytes) 7.7 2.0-12.0 [facility] NortheastPifooiqHEJVJNJDAZ8049-10-45 07:06:00 Test Item Value Reference Range Interpretation Comments Eosinophils (test code = 1.7 See_Comment [A utomated message] The Eosinophils) system which ge nerated this result tra nsmitted reference range : <=4.0. The reference r sharon was not used to int erpret this result as normal/abnormal . [facility] NortheastKyuaxmtFJQLTGOLZZ2892-37-25 07:06:00 Test Item Value Reference Range Interpretation Comments Basophils (test code = 0.6 See_Comment [Aut omated message] The Basophils) system which ge nerated this result tra nsmitted reference range : <=1.0. The reference r sharon was not used to int erpret this result as normal/abnormal . [facility] NortheastSwdbjcbWHGPJJKHNC3233-61-20 07:06:00 Test Item Value Reference Range Interpretation Comments Neutrophils # (test code = Neutrophils 6.7 1.5-8.1 #) [facility] NortheastYvukiyuPAOFDOLMUZ3720-58-26 07:06:00 Test Item Value Reference Range Interpretation Comments Lymphocytes # (test code = Lymphocytes 2.1 1.0-5.5 #) [facility] NortheastZyuclseJXXUXCNGWZ0915-82-95 07:06:00 Test Item Value Reference Range Interpretation Comments Monocytes # (test code 0.8 See_Comment [Aut omated message] The = Monocytes #) system which generated this result tra nsmitted reference range : <=0.8. The reference r sharon was not used to int erpret this result as normal/abnormal . [facility] NortheastFiwdsdpCEVYIYBTZE2842-32-83 07:06:00 Test Item Value Reference Range Interpretation Comments Eosinophils # (test code 0.2 See_Comment [A utomated message] The = Eosinophils #) system whic h generated this result tra nsmitted reference range : <=0.5. The reference r sharon was not used to int erpret this result as normal/abnormal . [facility] NortheastJfixiosKQLJHFQCGY3757-30-31 07:06:00 Test Item Value Reference Range Interpretation Comments Basophils # (test code 0.1 See_Comment [Aut omated message] The = Basophils #) system which generated this result tra nsmitted reference range : <=0.2. The reference r sharon was not used to int erpret this result as normal/abnormal . [place] 911740-03-14 07:06:00 Test Item Value Reference Range Interpretation Comments Phosphorus (test code = Phosphorus) 4.0 2.5-4.5 [place] 911740-03-14 07:06:00 Test Item Value Reference Range Interpretation Comments Magnesium Lvl (test code = Magnesium 1.7 1.8-2.4 Lvl) [place] [address]-03-14 07:06:00 Test Item Value Reference Range Interpretation Comments Glucose Lvl (test code = Glucose Lvl) 100 70-99 [place] 911740-03-14 07:06:00 Test Item Value Reference Range Interpretation Comments BUN (test code = BUN) 13 7-22 [place] [address]-03-14 07:06:00 Test Item Value Reference Range Interpretation Comments Creatinine Lvl (test code = Creatinine 0.50 0.50-1.40 Lvl) [place] [address]-03-14 07:06:00 Test Item Value Reference Range Interpretation Comments Sodium Lvl (test code = Sodium Lvl) 142 135-145 [place] 911740-03-14 07:06:00 Test Item Value Reference Range Interpretation Comments Potassium Lvl (test code = Potassium 3.8 3.5-5.1 Lvl) [place] [address]-03-14 07:06:00 Test Item Value Reference Range Interpretation Comments Chloride Lvl (test code = Chloride Lvl) 105 95-109 [place] [address]-03-14 07:06:00 Test Item Value Reference Range Interpretation Comments CO2 (test code = CO2) 29 24-32 [place] 911740-03-14 07:06:00 Test Item Value Reference Range Interpretation Comments AGAP (test code = AGAP) 11.8 10.0-20.0 [place] 911740-03-14 07:06:00 Test Item Value Reference Range Interpretation Comments Calcium Lvl (test code = Calcium Lvl) 8.5 8.5-10.5 [facility]2020-03-14 07:06:00 Test Item Value Reference Range Interpretation Comments B/C Ratio (test code = B/C Ratio) 26 1 6-25 [facility]2020-03-14 07:06:00 Test Item Value Reference Range Interpretation Comments Total Protein (test code = Total 6.9 6.4-8.4 Protein) [facility]2020-03-14 07:06:00 Test Item Value Reference Range Interpretation Comments Albumin Lvl (test code = Albumin Lvl) 3.1 3.5-5.0 [place] [address]-03-14 07:06:00 Test Item Value Reference Range Interpretation Comments Globulin (test code = Globulin) 3.8 2.7-4.2 [facility]2020-03-14 07:06:00 Test Item Value Reference Range Interpretation Comments A/G Ratio (test code = A/G Ratio) 0.8 1 0.7-1.6 [place] [address]-03-14 07:06:00 Test Item Value Reference Range Interpretation Comments ALT (test code = ALT) 132 See_Comment [Auto mated message] The system which ge nerated this result transmit roberto carlos reference range : <=65. The reference range was not used to interpr et this result as tyler l/abnormal. [facility]2020-03-14 07:06:00 Test Item Value Reference Range Interpretation Comments AST (test code = AST) 184 See_Comment [Auto mated message] The system which ge nerated this result transmit roberto carlos reference range : <=37. The reference range was not used to interpr et this result as tyler l/abnormal. [place] 911740-03-14 07:06:00 Test Item Value Reference Range Interpretation Comments Alk Phos (test code = Alk Phos) 109 39-136 [place] 911740-03-14 07:06:00 Test Item Value Reference Range Interpretation Comments Bili Total (test code = Bili Total) 0.4 0.2-1.3 [place] [address]-03-14 07:06:00 Test Item Value Reference Range Interpretation Comments eGFR (test code = eGFR) 125 [facility] NortheastHigkgszKYSBSTBFJX7782-17-50 07:06:00 Test Item Value Reference Range Interpretation Comments WBC (test code = WBC) 9.8 3.7-10.4 [facility] NortheastKzjanenOWMDEKIHUN2792-23-97 07:06:00 Test Item Value Reference Range Interpretation Comments RBC (test code = RBC) 3.94 4.20-5.40 [facility]dQANADCNFON6137-24-36 07:06:00 Test Item Value Reference Range Interpretation Comments Hgb (test code = Hgb) 12.4 12.0-16.0 [facility]MbdicvpFVWQFAYIPN7511-47-89 07:06:00 Test Item Value Reference Range Interpretation Comments Hct (test code = Hct) 36.6 36.0-48.0 [facility]BqqvhvuDVEUOLKGFO0844-53-35 07:06:00 Test Item Value Reference Range Interpretation Comments MCV (test code = MCV) 92.9 80.0-98.0 [facility] NortheastEnotuxxAQGVAXVZPU3380-08-66 07:06:00 Test Item Value Reference Range Interpretation Comments MCH (test code = MCH) 31.4 pg 27.0-31.0 [facility]VvzycutIIVLDMCTOW7194-33-79 07:06:00 Test Item Value Reference Range Interpretation Comments MCHC (test code = MCHC) 33.8 32.0-36.0 [facility] NortheastGzpcsitROBBYYXGKV6370-41-09 07:06:00 Test Item Value Reference Range Interpretation Comments RDW (test code = RDW) 13.1 11.5-14.5 [facility] NortheastZzofushSIWTOCGNBU7410-51-18 07:06:00 Test Item Value Reference Range Interpretation Comments Platelet (test code = Platelet) 246 133-450 [facility] NortheastRikyivsEXADWACGJH6004-98-61 07:06:00 Test Item Value Reference Range Interpretation Comments MPV (test code = MPV) 8.0 7.4-10.4 [facility] NortheastVwswaltAJJVARXAAD4647-29-14 07:06:00 Test Item Value Reference Range Interpretation Comments PTT (test code = PTT) 31.4 s 22.9-35.8 [facility] NortheastHlruxkaHTXZYXURNZ7535-66-18 07:06:00 Test Item Value Reference Range Interpretation Comments PT (test code = PT) 13.7 s 12.0-14.7 [facility] NortheastUnukfamPRWNAXVFLK9900-97-36 07:06:00 Test Item Value Reference Range Interpretation Comments INR (test code = INR) 1.05 1 0.85-1.17 [facility] NortheastRdzsmckHJPNVTIEJM0122-47-74 07:06:00 Test Item Value Reference Range Interpretation Comments Segs (test code = Segs) 68.3 45.0-75.0 [facility] NortheastLulmzedZDCWZBXEXY4488-60-89 07:06:00 Test Item Value Reference Range Interpretation Comments Lymphocytes (test code = Lymphocytes) 21.7 20.0-40.0 [facility] NortheastUdpiangFESJRJOVKF4605-53-06 07:06:00 Test Item Value Reference Range Interpretation Comments Monocytes (test code = Monocytes) 7.7 2.0-12.0 [facility]VjwuqgoDYZKFJFASY2198-80-03 07:06:00 Test Item Value Reference Range Interpretation Comments Eosinophils (test code = 1.7 See_Comment [A utomated message] The Eosinophils) system which ge nerated this result tra nsmitted reference range : <=4.0. The reference r sharon was not used to int erpret this result as normal/abnormal . [facility] NortheastIjlxurbPPHXTLMIQL4383-69-44 07:06:00 Test Item Value Reference Range Interpretation Comments Basophils (test code = 0.6 See_Comment [Aut omated message] The Basophils) system which ge nerated this result tra nsmitted reference range : <=1.0. The reference r sharon was not used to int erpret this result as normal/abnormal . [facility] NortheastCfauxpjSVETUYVXLC3930-11-71 07:06:00 Test Item Value Reference Range Interpretation Comments Neutrophils # (test code = Neutrophils 6.7 1.5-8.1 #) [facility] NortheastBunjvwqUMEAXLVGHS3443-37-58 07:06:00 Test Item Value Reference Range Interpretation Comments Lymphocytes # (test code = Lymphocytes 2.1 1.0-5.5 #) [facility] NortheastVdzolpfYPIXLSVRDM8000-91-93 07:06:00 Test Item Value Reference Range Interpretation Comments Monocytes # (test code 0.8 See_Comment [Aut omated message] The = Monocytes #) system which generated this result tra nsmitted reference range : <=0.8. The reference r sharon was not used to int erpret this result as normal/abnormal . [facility] NortheastDphickiOFSCOOEORR2873-50-72 07:06:00 Test Item Value Reference Range Interpretation Comments Eosinophils # (test code 0.2 See_Comment [A utomated message] The = Eosinophils #) system whic h generated this result tra nsmitted reference range : <=0.5. The reference r sharon was not used to int erpret this result as normal/abnormal . [facility] NortheastMzvhewiKFLSFIUEAY5171-49-64 07:06:00 Test Item Value Reference Range Interpretation Comments Basophils # (test code 0.1 See_Comment [Aut omated message] The = Basophils #) system which generated this result tra nsmitted reference range : <=0.2. The reference r sharon was not used to int erpret this result as normal/abnormal . [facility] [id number] 16:12:00 Test Item Value Reference Range Interpretation Comments Magnesium Lvl (test code = Magnesium 1.9 1.8-2.4 Lvl) [facility] AllianceAltair Prep [id number] 16:12:00 Test Item Value Reference Range Interpretation Comments Phosphorus (test code = Phosphorus) 4.8 2.5-4.5 [facility] AllianceKudhiaaUNLFHNASSP3950-40-74 16:12:00 Test Item Value Reference Range Interpretation Comments PT (test code = PT) 13.9 s 12.0-14.7 [facility] AllianceAygiyonEIVDXJDEHM0523-20-92 16:12:00 Test Item Value Reference Range Interpretation Comments INR (test code = INR) 1.07 1 0.85-1.17 [facility] AllianceJthmnrdTWLZSEINUY8711-56-93 16:12:00 Test Item Value Reference Range Interpretation Comments PTT (test code = PTT) 28.3 s 22.9-35.8 [facility] AllianceBflcjgkYKHFPVPGJF1177-20-80 16:12:00 Test Item Value Reference Range Interpretation Comments Fibrinogen Lvl (test code = Fibrinogen 436 230-510 Lvl) [facility]lakeIgmelonGKXUNN7685-08-73 16:12:00 Test Item Value Reference Range Interpretation Comments Trig (test code = Trig) 66 [facility]WlqexppIZPJSJ6912-74-30 16:12:00 Test Item Value Reference Range Interpretation Comments Chol (test code = Chol) [address] [place] [id number] 16:12:00 Test Item Value Reference Range Interpretation Comments HDL (test code = HDL) 54 [facility] AllianceWxefvjsRTYYWY9632-47-42 16:12:00 Test Item Value Reference Range Interpretation Comments CHD Risk (test code = CHD Risk) 2.48 1 3.90-5.80 [facility]VihasmeJMAARU1043-01-29 16:12:00 Test Item Value Reference Range Interpretation Comments LDL (Calculated) (test code = LDL 67 (Calculated)) [facility] AllianceYvvdbewSNYBEL6785-51-10 16:12:00 Test Item Value Reference Range Interpretation Comments VLDL (test code = VLDL) 13 1 [facility]annPARATHYROID [id number] 16:12:00 Test Item Value Reference Range Interpretation Comments Ca Ion WB (test code = Ca Ion WB) 1.18 1.05-1.25 [facility]annPARATHYROID NDTRTCG2334-28-08 16:12:00 Test Item Value Reference Range Interpretation Comments Ca Norm WB (test code = Ca Norm WB) 1.22 1.05-1.25 [facility] AllianceCHEM [id number] 16:12:00 Test Item Value Reference Range Interpretation Comments Magnesium Lvl (test code = Magnesium 1.9 1.8-2.4 Lvl) [facility] AllianceCHEM [id number] 16:12:00 Test Item Value Reference Range Interpretation Comments Phosphorus (test code = Phosphorus) 4.8 2.5-4.5 [facility] AllianceHlfjqnuDKNXDJQAQC6548-77-01 16:12:00 Test Item Value Reference Range Interpretation Comments PT (test code = PT) 13.9 s 12.0-14.7 [facility] AllianceZhgoxjaQHXSSRIING2191-54-64 16:12:00 Test Item Value Reference Range Interpretation Comments INR (test code = INR) 1.07 1 0.85-1.17 [facility] AllianceKvalpiePDWRVITJQY2688-63-98 16:12:00 Test Item Value Reference Range Interpretation Comments PTT (test code = PTT) 28.3 s 22.9-35.8 [facility]RdqigalHNUMXDEMQV8726-38-43 16:12:00 Test Item Value Reference Range Interpretation Comments Fibrinogen Lvl (test code = Fibrinogen 436 230-510 Lvl) [facility] AllianceHrucibwWAWJSD7134-52-93 16:12:00 Test Item Value Reference Range Interpretation Comments Trig (test code = Trig) 66 [facility]PgififnSPGLGU3677-82-81 16:12:00 Test Item Value Reference Range Interpretation Comments Chol (test code = Chol) 134 [facility]OjujtvcGNILUT1498-69-53 16:12:00 Test Item Value Reference Range Interpretation Comments HDL (test code = HDL) 54 [facility] AllianceDmrhzlxNBKCIO7712-52-75 16:12:00 Test Item Value Reference Range Interpretation Comments CHD Risk (test code = CHD Risk) 2.48 1 3.90-5.80 [facility]lakeMwzdzgiUSYGST5908-29-77 16:12:00 Test Item Value Reference Range Interpretation Comments LDL (Calculated) (test code = LDL 67 (Calculated)) [facility]lakeLypdkvaQWZXJA0541-89-86 16:12:00 Test Item Value Reference Range Interpretation Comments VLDL (test code = VLDL) 13 1 [facility] MBPYCWA4222-13-26 16:12:00 Test Item Value Reference Range Interpretation Comments Ca Ion WB (test code = Ca Ion WB) 1.18 1.05-1.25 [facility]2020-03-13 16:12:00 Test Item Value Reference Range Interpretation Comments Ca Norm WB (test code = Ca Norm WB) 1.22 1.05-1.25 [facility] CenterUrtsorwADGABMWONWQB4097-64-33 12:16:00 Test Item Value Reference Range Interpretation Comments POC Sodium (test code = POC Sodium) 139 135-145 [facility] CenterTlzxthmPUXKCGBCQFLC4998-83-39 12:16:00 Test Item Value Reference Range Interpretation Comments POC Potassium (test code = POC 4.9 3.5-5.1 Potassium) [facility] CenterLuqnoimKHPFBWBHWDYU4996-88-26 12:16:00 Test Item Value Reference Range Interpretation Comments POC Chloride (test code = POC Chloride) 102 95-109 [facility] CenterAswbnesFJPLLUTAEJTE5974-19-73 12:16:00 Test Item Value Reference Range Interpretation Comments POC Carbon Dioxide (test code = POC 31 24-32 Carbon Dioxide) [place] [address]-03-13 12:16:00 Test Item Value Reference Range Interpretation Comments POC BUN (test code = POC BUN) 24 7-22 [facility] CenterAgofiroRCKVEKNMIHJS6607-03-33 12:16:00 Test Item Value Reference Range Interpretation Comments POC Creatinine (test code = POC 0.5 0.5-1.4 Creatinine) [facility] CenterFzhdqpnPKXYREXVSIRE2895-90-85 12:16:00 Test Item Value Reference Range Interpretation Comments POC Glucose (test code = POC Glucose) 79 70-99 [facility] CenterAzkdfqkNUQPZGSGSDUU7004-63-36 12:16:00 Test Item Value Reference Range Interpretation Comments POC Ion Ca (test code = POC Ion Ca) 1.22 1.05-1.25 [facility] CenterMgoxytlIHWKTCLVZXWF2220-84-26 12:16:00 Test Item Value Reference Range Interpretation Comments POC Hemoglobin (test code = POC 13.9 12.0-16.0 Hemoglobin) [facility] CenterXsustngZRAPGODJIOJW9295-99-71 12:16:00 Test Item Value Reference Range Interpretation Comments POC Hematocrit (test code = POC 41.0 36.0-48.0 Hematocrit) [facility] CenterPzpnlijPXQVXVRPZTUM2693-80-43 12:16:00 Test Item Value Reference Range Interpretation Comments POC AGAP (test code = POC AGAP) 12.0 10.0-20.0 [facility] CenterZklqscrDNPMUXBUICJM7849-73-01 12:16:00 Test Item Value Reference Range Interpretation Comments POC Disclaimer (test code See Note = POC Disclaimer) *NA*(11/18/19 7:16 AM) [facility] CenterIbyeadgIWJNVJOYFWVY6828-70-41 12:16:00 Test Item Value Reference Range Interpretation Comments POC Sodium (test code = POC Sodium) 139 135-145 [facility] CenterYusxhklOILBQICPEVEY0439-38-80 12:16:00 Test Item Value Reference Range Interpretation Comments POC Potassium (test code = POC 4.9 3.5-5.1 Potassium) [facility] CenterJqcskoaHHPVAHQDLXTM4786-17-14 12:16:00 Test Item Value Reference Range Interpretation Comments POC Chloride (test code = POC Chloride) 102 95-109 [facility] CenterCnjvdcnXWOOVGQDXAHP9143-00-69 12:16:00 Test Item Value Reference Range Interpretation Comments POC Carbon Dioxide (test code = POC 31 24-32 Carbon Dioxide) [facility] CenterGvlfhglXWPWJNKCHCDZ1844-32-42 12:16:00 Test Item Value Reference Range Interpretation Comments POC BUN (test code = POC BUN) 24 7-22 [facility] CenterHdlpzqzMMWJPBFJYWEX5077-57-35 12:16:00 Test Item Value Reference Range Interpretation Comments POC Creatinine (test code = POC 0.5 0.5-1.4 Creatinine) [facility] CenterLmaykdyNEGYBXBSRFFZ6061-16-37 12:16:00 Test Item Value Reference Range Interpretation Comments POC Glucose (test code = POC Glucose) 79 70-99 [facility] CenterIfwqyuhTPPZZJKUNCLM0480-99-63 12:16:00 Test Item Value Reference Range Interpretation Comments POC Ion Ca (test code = POC Ion Ca) 1.22 1.05-1.25 [facility] CenterLkudpgpEOIKNBYYJFRH4531-32-72 12:16:00 Test Item Value Reference Range Interpretation Comments POC Hemoglobin (test code = POC 13.9 12.0-16.0 Hemoglobin) [facility] CenterVppifpkITTVJQVKMQZV6936-07-81 12:16:00 Test Item Value Reference Range Interpretation Comments POC Hematocrit (test code = POC 41.0 36.0-48.0 Hematocrit) [facility] CenterObkrghtBAJTZIEKSXYM3344-79-00 12:16:00 Test Item Value Reference Range Interpretation Comments POC AGAP (test code = POC AGAP) 12.0 10.0-20.0 [facility] CenterCzsobsiAPBCUZAZCDHE6427-73-77 12:16:00 Test Item Value Reference Range Interpretation Comments POC Disclaimer (test code See Note = POC Disclaimer) *NA*(11/18/19 7:16 AM) [facility]THE [facility] [id number] 11:55:00 Test Item Value Reference Range Interpretation Comments ABO/Rh (test code = ABO/Rh) A POS [facility] PharmaceuticalsTHE [facility] [id number] 11:55:00 Test Item Value Reference Range Interpretation Comments Antibody Scrn (test Negative (11/18/19 6:55 code = Antibody Scrn) AM) [facility] [id number] 11:55:00 Test Item Value Reference Range Interpretation Comments ABO/Rh (test code = ABO/Rh) A POS [facility]THE [facility] [id number] 11:55:00 Test Item Value Reference Range Interpretation Comments Antibody Scrn (test Negative (11/18/19 6:55 code = Antibody Scrn) AM) [id number] 20:23:00 Test Item Value Reference Range Interpretation Comments MRSA by PCR (test Negative (11/14/19 3:23 code = MRSA by PCR) PM) [facility] [id number] 20:23:00 Test Item Value Reference Range Interpretation Comments MRSA by PCR (test Negative (11/14/19 3:23 code = MRSA by PCR) PM) [facility] [id number] 20:12:00 Test Item Value Reference Range Interpretation Comments ABO/Rh (test code = ABO/Rh) A POS [facility] AllianceBLOOD BANK [id number] 20:12:00 Test Item Value Reference Range Interpretation Comments Antibody Scrn (test Negative (11/14/19 3:12 code = Antibody Scrn) PM) [facility] [id number] 20:12:00 Test Item Value Reference Range Interpretation Comments Total Protein (test code = Total 7.5 6.4-8.4 Protein) [facility] [id number] 20:12:00 Test Item Value Reference Range Interpretation Comments Albumin Lvl (test code = Albumin Lvl) 3.5 3.5-5.0 [facility] [id number] 20:12:00 Test Item Value Reference Range Interpretation Comments ALT (test code = ALT) 19 See_Comment [Auto mated message] The system which ge nerated this result transmit roberto carlos reference range : <=65. The reference range was not used to interpr et this result as tyler l/abnormal. [facility] [employer] [id number] 20:12:00 Test Item Value Reference Range Interpretation Comments AST (test code = AST) 15 See_Comment [Auto mated message] The system which ge nerated this result transmit roberto carlos reference range : <=37. The reference range was not used to interpr et this result as tyler l/abnormal. [facility] [employer] [id number] 20:12:00 Test Item Value Reference Range Interpretation Comments Alk Phos (test code = Alk Phos) 74 39-136 [facility] [id number] 20:12:00 Test Item Value Reference Range Interpretation Comments Bili Total (test code = Bili Total) 0.2 0.2-1.3 [facility] [id number] 20:12:00 Test Item Value Reference Range Interpretation Comments B/C Ratio (test code = B/C Ratio) 17 1 6-25 [facility] [id number] 20:12:00 Test Item Value Reference Range Interpretation Comments Globulin (test code = Globulin) 4.0 2.7-4.2 [facility] [employer] [id number] 20:12:00 Test Item Value Reference Range Interpretation Comments A/G Ratio (test code = A/G Ratio) 0.9 1 0.7-1.6 [facility]UwzknclEHRJRBIVJO2243-87-34 20:12:00 Test Item Value Reference Range Interpretation Comments PT (test code = PT) 12.6 s 12.0-14.7 [facility] AllianceQlcnychDERFXRWMYL6301-57-67 20:12:00 Test Item Value Reference Range Interpretation Comments INR (test code = INR) 0.94 1 0.85-1.17 [facility] [employer] [id number] 20:12:00 Test Item Value Reference Range Interpretation Comments ABO/Rh (test code = ABO/Rh) A POS [facility] [employer] [id number] 20:12:00 Test Item Value Reference Range Interpretation Comments Antibody Scrn (test Negative (11/14/19 3:12 code = Antibody Scrn) PM) [facility] [employer] [id number] 20:12:00 Test Item Value Reference Range Interpretation Comments Total Protein (test code = Total 7.5 6.4-8.4 Protein) [facility] [employer]2020-03-09 20:12:00 Test Item Value Reference Range Interpretation Comments Albumin Lvl (test code = Albumin Lvl) 3.5 3.5-5.0 [facility] [employer]2020-03-09 20:12:00 Test Item Value Reference Range Interpretation Comments ALT (test code = ALT) 19 See_Comment [Auto mated message] The system which ge nerated this result transmit roberto carlos reference range : <=65. The reference range was not used to interpr et this result as tyler l/abnormal. [facility] [employer]2020-03-09 20:12:00 Test Item Value Reference Range Interpretation Comments AST (test code = AST) 15 See_Comment [Auto mated message] The system which ge nerated this result transmit roberto carlos reference range : <=37. The reference range was not used to interpr et this result as tyler l/abnormal. [employer]2020-03-09 20:12:00 Test Item Value Reference Range Interpretation Comments Alk Phos (test code = Alk Phos) 74 39-136 [facility] [employer]2020-03-09 20:12:00 Test Item Value Reference Range Interpretation Comments Bili Total (test code = Bili Total) 0.2 0.2-1.3 [facility]2020-03-09 20:12:00 Test Item Value Reference Range Interpretation Comments B/C Ratio (test code = B/C Ratio) 17 1 6-25 [facility] [id number] 20:12:00 Test Item Value Reference Range Interpretation Comments Globulin (test code = Globulin) 4.0 2.7-4.2 [facility]2020-03-09 20:12:00 Test Item Value Reference Range Interpretation Comments A/G Ratio (test code = A/G Ratio) 0.9 1 0.7-1.6 [facility]EznmloaAYRUZPVLPJ9463-69-86 20:12:00 Test Item Value Reference Range Interpretation Comments PT (test code = PT) 12.6 s 12.0-14.7 [facility] NortheastJwthdopRGWWBLGBWD2834-77-76 20:12:00 Test Item Value Reference Range Interpretation Comments INR (test code = INR) 0.94 1 0.85-1.17 [facility]
--- NOTE | 2022-07-04 20:35 | EDPHYS ---
Physician Documentation [facility] Name: Charlotte Ruvalcaba Age: 57 yrs Sex: Female : 1965 Arrival Date: 07/04/2022 Time: 18:36 Bed IW2 Private MD: ED Physician Mik He HPI: 07/04 20:32 This 57 yrs old Black Female presents to ER via EMS with complaints of High Blood bs3 Pressure. 20:36 57yo hx of cva, htn, hld presents with a frontal headache for 4 days, occurred at rest, bs3 mild in nature, nothing makes it better or worse. no blurry vision, nausea, vomiting or syncope. No neck pain, no weakness in extremities. She notes multiple stressors . Historical: - Allergies: 19:22 NKDA; kb3 - PMHx: 19:22 Asthma; COPD; Hypertension; Hypothyroidism; Diabetes - IDDM; Gout; kb3 19:23 CAD; kb3 - PSHx: 19:22 back sx; Knee replacement; Hysterectomy; kb3 19:23 Coronary Stent; kb3 - Immunization history:: Adult Immunizations up to date, Client reports receiving the 2nd dose of the Covid vaccine, Last tetanus immunization: up to date. - Social history:: Smoking status: Patient denies any tobacco usage or history of. ROS: 20:38 Constitutional: Negative for fever, chills Eyes: Negative for injury, pain, redness, bs3 and discharge, ENT: Negative for injury, pain, and discharge, Neck: Negative for injury, pain, and swelling, Cardiovascular: Negative for chest pain, palpitations, and edema, Respiratory: Negative for shortness of breath, cough, wheezing Abdomen/GI: Negative for abdominal pain, nausea, vomiting, diarrhea Back: Negative for injury and pain, MS/Extremity: Negative for injury and deformity, Skin: Negative for injury, rash, and discoloration, Neuro: Negative for headache, weakness, numbness, tingling, and seizure, Psych: Negative for depression, anxiety, suicide ideation, homicidal ideation, and hallucinations, Endocrine: Negative for neck swelling, polydipsia, polyuria, polyphagia, and marked weight changes, Hematologic/Lymphatic: Negative for swollen nodes, abnormal bleeding Exam: 20:38 Constitutional: This is a well developed, well nourished patient who is awake, alert, bs3 and in no acute distress. Head/Face: Normocephalic, atraumatic. Eyes: Pupils equal round and reactive to light, extra-ocular motions intact. Lids and lashes normal. ENT: mmm, no posterior phyarngeal erythema Neck: Trachea midline, no thyromegaly, no neck stiffness Abdomen/GI: Soft, non-tender, no rebound or guarding Neuro: Awake and alert, GCS 15, oriented to person, place, time, and situation. Cranial nerves II-XII intact. Motor strength 5/5 in all extremities. Sensory grossly intact. Vital Signs: 19:19 BP 155 / 62; Pulse 72; Resp 18; Temp 98.4; Pulse Ox 98% ; Weight 86.18 kg; Height 5 ft. kb3 4 in. (162.56 cm); Pain 10/10; 19:19 Body Mass Index 32.61 (86.18 kg, 162.56 cm) kb3 MDM: 20:26 Patient medically screened. bs3 20:39 Data reviewed: vital signs, nurses notes. bs3 20:39 ED course: pt with new headache, and elevated bp, possible tension, doubt sah, doubt bs3 rcvs, temporal arteritis, or cvst, I recommended tx and reassessment, but pt refused and wanted to go home, she understood the risks and benefits and we had a shared decision making conversation regarding my recommendation. . Administered Medications: No medications were administered Disposition Summary: 07/04/22 20:34 Discharge Ordered Location: Home bs3 Problem: new bs3 Symptoms: are unchanged bs3 Condition: Stable bs3 Diagnosis - Headache bs3 - Episodic tension-type headache bs3 Followup: bs3 - With: Private Physician - When: 5 - 6 days - Reason: Discharge Instructions: - Discharge Summary Sheet bs3 - Tension Headache, Adult, Eojv-na-Xdcb bs3 Forms: - Medication Reconciliation Form bs3 - Thank You Letter bs3 - Antibiotic Education bs3 - Prescription Opioid Use bs3 Signatures: Sunshine Trevino RN RN kb3 Mik He MD MD bs3 Corrections: (The following items were deleted from the chart) 19:23 19:22 PMHx: breast cancer; kb3 kb3
--- NOTE | 2022-07-04 20:35 | ER ---
Nurse's Notes [facility] Name: Charlotte Ruvalcaba Age: 57 yrs Sex: Female : 1965 Arrival Date: 07/04/2022 Time: 18:36 Bed IW2 Private MD: Diagnosis: Headache;Episodic tension-type headache Presentation: 07/04 19:19 Chief complaint: Patient states: Patient reports she was in physical therapy today and kb3 the nurse told her that her SBP was 220 and she needed to go to ED for evaluation. PT report elevated BP x several days with associated headache and nausea despite taking all medication as prescribed. Coronavirus screen: Vaccine status: Patient reports receiving the 2nd dose of the covid vaccine. Client denies travel out of the [place] in the last 14 days. Ebola Screen: Patient negative for fever greater than or equal to 101.5 degrees Fahrenheit, and additional compatible Ebola Virus Disease symptoms Patient denies exposure to infectious person. Patient denies travel to an Ebola-affected area in the 21 days before illness onset. Initial Sepsis Screen: Does the patient meet any 2 criteria? No. Patient's initial sepsis screen is negative. Does the patient have a suspected source of infection? No. Patient's initial sepsis screen is negative. Risk Assessment: Do you want to hurt yourself or someone else? Patient reports no desire to harm self or others. Onset of symptoms was July 01, 2022. 19:19 Method Of Arrival: EMS: [facility] 3 19:19 Acuity: RASHAD 3 kb3 Triage Assessment: 19:23 General: Appears in no apparent distress. Behavior is calm, cooperative. Pain: kb3 Complains of pain in forehead Pain does not radiate. Pain currently is 10 out of 10 on a pain scale. Quality of pain is described as aching, throbbing. Historical: - Allergies: 19:22 NKDA; kb3 - PMHx: 19:22 Asthma; COPD; Hypertension; Hypothyroidism; Diabetes - IDDM; Gout; kb3 19:23 CAD; kb3 - PSHx: 19:22 back sx; Knee replacement; Hysterectomy; kb3 19:23 Coronary Stent; kb3 - Immunization history:: Adult Immunizations up to date, Client reports receiving the 2nd dose of the Covid vaccine, Last tetanus immunization: up to date. - Social history:: Smoking status: Patient denies any tobacco usage or history of. Screenin:30 Abuse screen:. Abuse screen: Denies threats or abuse. Denies injuries from another. kb3 Nutritional screening: No deficits noted. Tuberculosis screening: No symptoms or risk factors identified. Fall Risk None identified. Assessment: 20:30 General: Pt to triage reporting that she wants to leave AMA. States feeling moderately kb3 better and will follow up with PCP on Thursday. PIV removed. Dr He to triage room to speak with pt and discharge. . Vital Signs: 19:19 BP 155 / 62; Pulse 72; Resp 18; Temp 98.4; Pulse Ox 98% ; Weight 86.18 kg; Height 5 ft. kb3 4 in. (162.56 cm); Pain 10/10; 19:19 Body Mass Index 32.61 (86.18 kg, 162.56 cm) kb3 ED Course: 18:36 Patient arrived in ED. as 19:22 Triage completed. kb3 19:23 Arm band placed on left wrist. kb3 20:26 Mik He MD is Attending Physician. bs3 20:30 Patient has correct armband on for positive identification. kb3 20:30 No provider procedures requiring assistance completed. IV discontinued, intact, kb3 bleeding controlled, No redness/swelling at site. Administered Medications: No medications were administered Medication: 20:30 VIS not applicable for this client. kb3 Outcome: 20:30 Discharged to home ambulatory. kb3 20:30 Condition: good 20:30 Discharge instructions given to patient, Instructed on discharge instructions, follow up and referral plans. Demonstrated understanding of instructions, follow-up care. 20:34 Discharge ordered by . bs3 20:46 Patient left the ED. hb Signatures: Ioana Washington Heather, RN RN Sunshine Spivey RN RN kb3 Mik He MD MD bs3 Corrections: (The following items were deleted from the chart) 19:23 19:22 PMHx: breast cancer; kb3 kb3
[2022-07-04 21:39] VITALS: BP 155/62; TEMP 98.4; O2SAT 98
== END 2022-07-04 20:46 | disposition home or self-care (01) ==
LOC: ER 18:29
DX: G44.219 Episodic tension-type headache, not intractable (principal); I10 Essential (primary) hypertension; Z95.818 Presence of other cardiac implants and grafts
CPT/HCPCS: 99283

== ENCOUNTER 2022-09-02 16:10 | Inpatient (IN) | payer OTHER ==
--- OUTSIDE RECORDS SUMMARY | 2022-09-02 16:23 | XMS REPORT | Continuity of Care Document ---
:1965 Author Organization [facility] t Address [address] [place] [address] Care Team Providers Name Role Phone Laura Naseem Scherer Primary Care Physician Baljeet De Anda Attending Clinician Unavailable GIANNA ROBERTS Attending Clinician Unavailable Vira Guerrero Attending Clinician Unavailable Tawana Ramirez Attending Clinician Unavailable PEE HANCOCK Attending Clinician Unavailable PRADIP MORFIN Attending Clinician Unavailable Pradip Morfin MD Attending Clinician ZACKARY HAYWOOD Attending Clinician Unavailable Zackary Haywood MD Attending Clinician Armond Montoya MD Attending Clinician [phone] ALE FOREMAN Attending Clinician Unavailable Ale Banda Attending Clinician PRICILLA DOOLEY Attending Clinician Unavailable Pricilla Nick Attending Clinician Doctor Unassigned, [place] Attending Clinician Unavailable EVANGELISTA ALBRECHT Attending Clinician [...] Attending Clinician BRITTNI KELLY Attending Clinician Unavailable Brittni Salgado Attending Clinician BRITTANEY DE LEON Attending Clinician Unavailable RICARDO PIKE Attending Clinician Unavailable Ricardo Su S Attending Clinician Josh Bennett Attending Clinician ALISTAIR CASTELLANOS Attending Clinician Unavailable Josh Bennett MD Attending Clinician Kendrick Tolliver DO Attending Clinician Armond Siu APRN Attending Clinician Francisco Andrea Attending Clinician Unavailable Royce Rivers MD Attending Clinician Gilmer Hurst Attending Clinician Sadia Farr I Attending Clinician SADIA FARR I Attending Clinician Unavailable PEE HANCOCK Admitting Clinician Unavailable PRADIP MORFIN Admitting Clinician Unavailable ZACKARY HAYWOOD Admitting Clinician Unavailable Pee Hancock MD Admitting Clinician Referred, Self Admitting Clinician Unavailable Sadia Farr I Admitting Clinician SADIA FARR I Admitting Clinician Unavailable Payers Payer Name Policy Type Policy Number Effective Date Expiration Date Klarissa kemp [facility] [employer] [place] [id number] 2015 00:00:00 [facility] [id number] 2016 MEDICAID 00:00:00 [place] [id number] 2022 00:00:00 Problems Condition Condition Condition Status Onset Resolution Last Treating Co mments Source Name Details Category Date Date Treatment Clinician Date DX: DX: Diagnosis Active 2022-02-10 Mem oria R11.0=NAUS R11.0=NAUS 01-27 10:13:00 l EA/R10.12= EA/R10.12= 00:00: He rmann LEFT UPPER LEFT UPPER 00 QUADR QUADR Active 01/27/2022 [facility] Ganglion Ganglion Disease Active Overview: Un donaldo cyst of cyst of 11-05 Formattin ity o f finger finger 00:00: g of this [place] 00 note Medical might be Branch different from the original. Added automatic ally from request for surgery [id number] SACROLIAC Diagnosis Active 2020-092021-06-25 Memoria LT, MAGALIE SACROLIAC 0 13:48:00 l HIP LT, MAGALIE 08:00: Solomon BURSITIS, HIP 00 IT BAND BURSITIS, IT BAND Active 06/11/2021 [facility] M53.3 - M53.3 - Diagnosis Active 2021-04-03 Memoria SACROCOCCY SACROCOCCY 03-05 07:05:00 l GEAL GEAL 00:01: [place] DISORDERS, DISORDERS, 00 NOT NOT Active 03/05/2021 [facility] Disease Active [place] trochanter trochanter 02-27 He [...] S/P Disease Active 2019-09 Univers revision revision - ity of of total of total 00:00: [place] knee knee 00 Medical Branch S/P total S/P total Disease Active 2019-09 Overview: Univers knee knee 0-19 Formattin ity of replacemen replacemen 00:00: g of this [place] t, right t, right 00 note Medica l might be Branch different from the original. 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 ICD10 Diagnosis Term Lead Rider Utility Occlusion Occlusion Problem 2019-11-23 Memoria and and 21:46:33 l stenosis stenosis Andrei n of left of left carotid carotid artery artery 11/23/2019 [facility] Carotid Carotid Problem Active 2021-07-27 Me moria artery artery 01:20:12 l stenosis stenosis Andrei n (disorder) (disorder) Active Problem 07/27/2021 [facility], [facility] [place] Carpal Carpal Problem Active 2021-07-27 Brennen oscar 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 Andrei n (disorder) (disorder) Active Problem 07/27/2021 [facility], [facility] Diabetes Diabetes Problem Active 2021-07-27 Memoria mellitus mellitus 01:20:12 l (disorder) (disorder) He rmann Active Problem 07/27/2021 [facility], [facility] [place] Diabetes Diabetes Problem Active 2021-07-27 Memoria mellitus mellitus 01:20:12 l type 2 type 2 Solomon (disorder) (disorder) Active Problem 07/27/2021 [facility], [facility] Disorder Disorder Problem Active 2021-07-27 Memoria of carotid of carotid 01:20:12 l artery artery Solomon (disorder) (disorder) Active Problem 07/27/2021 [facility], [facility] Hypertensi Hypertens Problem Active 2021-07-27 Memoria ve gissel 01:20:12 l disorder, disorder, Herm mary systemic systemic arterial arterial (disorder) (disorder) Active Problem 07/27/2021 [facility], [facility] Hyperlipid Hyperlipi Problem Active 2021-07-27 Memoria emia demia 01:20:12 l (disorder) (disorder) He rmann Active Problem 07/27/2021 [facility] Neuro,[facility] CHARLEEN Carrasco,[facility] Hypothyroi Hypothyro Problem Active 2021-07-27 Memoria dism idism 01:20:12 l (disorder) (disorder) He rmann Active Problem 07/27/2021 [facility] CHARLEEN Carrasco,[facility] Simple Simple Problem Active 2021-07-27 Brennen oscar obesity obesity 01:20:12 l (disorder) (disorder) He rmann Active Problem 07/27/2021 [facility] CHARLEEN Carrasco,[facility] OCCLUSION Diagnosis Active 2019-11-24 Memoria AND OCCLUSION 21:49:00 l STENOSIS AND [place] OF LEFT STENOSIS CAROTID A OF LEFT CAROTID A Active [facility] Obesity Obesity Disease Active Univers (BMI (BMI ity of 30-39.9) 30-39.9) [facility] Uncontroll Uncontroll Problem Active C ommon ed type 2 ed type 2 Spir it diabetes diabetes - [facility]I mellitus mellitus St with with [facility] hyperglyce hyperglyce Me dical [facility] Anxiety Anxiety Problem Active Common [facility] Asthma, Asthma, Problem Active Common unspecifie unspecifie Sp yaron d asthma d asthma - [facility] severity, severity, St unspecifie unspecifie Verenice kes d whether d whether Medi cipriano complicate complicate Ce nter d, d, unspecifie unspecifie d whether d whether persistent persistent Diabetes Diabetes Problem Active Commo n [facility] Swelling Swelling Problem Active Commo n [facility] High blood High blood Problem Active C ommon pressure pressure [facility] Sinus Sinus Problem Active Common problem problem [facility] High High Problem Active Common cholestero cholestero Sp yaron l l [facility] Depression Depression Problem Active C ommon with with Spirit anxiety anxiety [facility] Acquired Acquired Problem Active Commo n hypothyroi hypothyroi Sp yaron dism dism [facility] Chronic Chronic Problem Active Common pain pain Spirit syndrome syndrome - [facility] Polyarthra Polyarthra Problem Active C ommon lgia lgia [facility] Gastroesop Gastroesop Problem Active C ommon hageal hageal Spirit reflux reflux - [facility] disease, disease, St esophagiti esophagiti Verenice kes s presence s presence Me dical not not Center specified specified Chronic Chronic Problem Active Common obstructiv obstructiv Sp yaron e e - [facility] pulmonary pulmonary St disease, disease, [facility] unspecifie unspecifie Me dical d COPD d COPD Center type type Abnormal Abnormal Problem Active Commo n urine odor urine odor Sp yaron [facility] Hoarseness Hoarseness Problem Active C ommon [facility] Hyperlipid Hyperlipid Problem Active C ommon emia, emia, Spirit unspecifie unspecifie - [facility]I d d St hyperlipid hyperlipid Verenice kes emia type emia type [facility] Sore Sore Problem Active Common throat throat [facility] Non-intrac Non-intrac Problem Active C ommon table table Spirit vomiting vomiting - [facility] with with St nausea, nausea, [facility] unspecifie unspecifie Me dical d vomiting d vomiting Ce nter type type Chest Chest Problem Active Common tightness tightness Spir [facility] Exposure Exposure Problem Active Commo n to mold to mold [facility] Wheezing Wheezing Problem Active Commo n [facility] Shortness Shortness Problem Active Com mon of breath of breath Spir [facility] Itching Itching Problem Active Common [facility] Muscle Muscle Problem Active Common cramping cramping [facility] Right leg Right leg Problem Active Com mon pain pain [facility] Acute Acute Problem Active Common right-side right-side Sp yaorn d thoracic d thoracic - [facility] back pain back pain [facility] Low back Low back Problem Active Commo n pain pain [facility] Other Other Problem Active Common chronic chronic [facility] pain pain [facility] Lumbago Lumbago Problem Active Common with with Spirit sciatica, sciatica, - CH I right side right side [facility] Status Status Problem Active Common post fall post fall Spir [facility] Dizziness Dizziness Problem Active Com mon [facility] Imbalance Imbalance Problem Active Com mon [facility] Difficulty Difficulty Problem Active C ommon sleeping sleeping Spirit - [facility] Acute Acute Problem Active Common stress stress Spirit reaction reaction - [facility] 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 both - [facility] carotid carotid St arteries arteries [facility] Stenosis Stenosis Problem Active Commo n of left of left Spirit carotid carotid - [facility] artery artery [facility] Status Status Problem Active Common post CVA post CVA Spirit - [facility] Stenosis Stenosis Problem Active Commo n of right of right Spirit carotid carotid - [facility] artery artery [facility] Allergies, Adverse Reactions, Alerts Allergy Allergy Status Severity Reaction(s) Onset Inactive Treating Comm ents Source Name Type Date Date Clinician NO KNOWN Drug Active Univers ALLERGIE Class ity of S [facility] Family History Family Member Diagnosis Comments Start Date Stop Date Source Natural father [facility] Natural mother COPD [facility] Natural mother Hyper[facility] Natural mother [facility] Social History Social Habit Start Date Stop Date Quantity Comments Source History of tobacco Cigarette Smoker [facility] Exposure to 2022-04-26 2022-05-06 Not sure University SARS-CoV-2 (event) 00:00:00 10:12:00 [facility] Tobacco use and 2022-05-02 2022-05-02 Smokeless Universit y of exposure 00:00:00 00:00:00 tobacco non-user [facility] Social History 2019-11-14 2019-11-14 [facility] 21:12:20 21:12:20 Alcohol intake 2018-07-19 2018-07-19 Current [facility] 00:00:00 00:00:00 non-drinker of Hospital alcohol (finding) Cigarettes smoked 2018-07-15 2018-07-[address] current (pack per 00:00:00 00:00:00 Hospita l day) - Reported Sex [birth year] At [birth year] [facility] 00:00:00 00:00:00 Hospital Smoking Status Start Date Stop Date Source Never smoked tobacco [facility] Ex-smoker 2018-07-15 00:00:00 2018-07-15 [facility]00[facility] Medications Ordered Filled Start Stop Current Ordering Indication Dosage Frequency Signature Comments Components Source Medication Medication Date Date Medication? Clinician (SIG) Name Name [facility] 2021-09- No [id number] 355mL 355 mL, Un donaldo sulfate 0-26 - Oral, ity of (LIQUID E-Z 16:15: 15:00 ONCE, 1 Jacinto edgardo JACQUESMALACHI) 60 % 00 :00 dose, On Medi cipriano (w/v) oral Wed Rescue suspension 07/02/22 355 mL at 1115, Routine diazePAM 2021-09 Yes [id number] 2mg Take 1 Uni vers (VALIUM) 2 0-23 tablet by ity of mg tablet 00:00: mouth 3 [place] (three) Medical times Rescue daily as needed for Muscle Spasms. diazePAM 2021-09 Yes [id number] 2mg Take 1 Uni vers (VALIUM) 2 0-23 tablet by ity of mg tablet 00:00: mouth 3 (three) Medical times Rescue daily as needed for Muscle Spasms. methylPREDN Yes [id number] 84mg Take 21 Univers ISolone 8-26 [id number] tablets by ity of (MEDROL, 00:00: mouth [place] ARLENE,) 4 mg 00 SEE-INSTRU Med ical tablets CTIONS. Branch follow package directions cyclobenzap Yes [id number] 10mg Take 1 Univers rine 10 mg 8-26 [id number] tablet by it y of tablet 00:00: mouth in [place] the Medical morning Branch and 1 tablet at noon and 1 tablet in the evening. methylPREDN Yes [id number] 84mg Take 21 Univers ISolone 8-26 [id number] tablets by ity of (MEDROL, 00:00: mouth [place] ARLENE,) 4 mg 00 SEE-INSTRU Med ical tablets CTIONS. Branch follow package directions cyclobenzap Yes [id number] 10mg Take 1 Univers rine 10 mg 8-26 [id number] tablet by it y of tablet 00:00: mouth in [place] the Medical morning Branch and 1 tablet at noon and 1 tablet in the evening. methylPREDN 0 Yes [id number] 84mg Take 21 Univers ISolone 8-26 [id number] tablets by ity of (MEDROL, 00:00: mouth [place] ARLENE,) 4 mg 00 SEE-INSTRU Med ical tablets CTIONS. Branch follow package directions cyclobenzap Yes [id number] 10mg Take 1 Univers rine 10 mg 8-26 [id number] tablet by it y of tablet 00:00: mouth in [place] 00 the Medical morning Branch and 1 tablet at noon and 1 tablet in the evening. methylPREDN 2-0 Yes [id number] 84mg Take 21 Univers ISolone 8-26 [id number] tablets by ity of (MEDROL, 00:00: mouth [place] ARLENE,) 4 mg 00 SEE-INSTRU Med ical tablets CTIONS. Branch follow package directions cyclobenzap 2021-0 Yes [id number] 10mg Take 1 Univers rine 10 mg 8-26 [id number] tablet by it y of tablet 00:00: mouth in [place] 00 the Medical morning Branch and 1 tablet at noon and 1 tablet in the evening. ondansetron 2021-0 Yes [id number] 4mg Take 1 Univers 4 mg 6-04 tablet by ity of disintegrat 00:00: mouth [place] ing tablet 00 every 12 Medic al (twelve) Branch hours as needed for Nausea and Vomiting (N/V). ondansetron 2021-0 Yes [id number] 4mg Take 1 Univers 4 mg 6-04 tablet by ity of disintegrat 00:00: mouth [place] ing tablet 00 every 12 Medic al (twelve) Branch hours as needed for Nausea and Vomiting (N/V). ondansetron 2021-0 Yes [id number] 4mg Take 1 Univers 4 mg 6-04 tablet by ity of disintegrat 00:00: mouth [place] ing tablet 00 every 12 Medic al (twelve) Branch hours as needed for Nausea and Vomiting (N/V). ondansetron 2021-0 Yes [id number] 4mg Take 1 Univers 4 mg 6-04 tablet by ity of disintegrat 00:00: mouth [place] ing tablet 00 every 12 Medic al (twelve) Branch hours as needed for Nausea and Vomiting (N/V). ondansetron 2-0 Yes [id number] 4mg Take 1 Univers 4 mg 6-04 tablet by ity of disintegrat 00:00: mouth [place] ing tablet 00 every 12 Medic al (twelve) Branch hours as needed for Nausea and Vomiting (N/V). dicyclomine 2021-0 Yes [id number] 20mg Take 1 Univers 20 mg 3-29 tablet by ity of tablet 00:00: mouth 4 [place] 00 (four) Medical times Branch daily. ondansetron 2022-0 Yes [id number] 4mg Take 1 Univers 4 mg 3-29 tablet by ity of disintegrat 00:00: mouth [place] ing tablet 00 every 4 Medica l (four) Branch hours as needed for Nausea and Vomiting (N/V). dicyclomine 2022-0 Yes [id number] 20mg Take 1 Univers 20 mg 3-29 tablet by ity of tablet 00:00: mouth 4 [place] 00 (four) Medical times Branch daily. ondansetron 2022-0 Yes [id number] 4mg Take 1 Univers 4 mg 3-29 tablet by ity of disintegrat 00:00: mouth [place] ing tablet 00 every 4 Medica l (four) Branch hours as needed for Nausea and Vomiting (N/V). dicyclomine 2022-0 Yes [id number] 20mg Take 1 Univers 20 mg 3-29 tablet by ity of tablet 00:00: mouth 4 [place] 00 (four) Medical times Branch daily. ondansetron 2-0 Yes [id number] 4mg Take 1 Univers 4 mg 3-29 tablet by ity of disintegrat 00:00: mouth [place] ing tablet 00 every 4 Medica l (four) Branch hours as needed for Nausea and Vomiting (N/V). dicyclomine 2-0 Yes [id number] 20mg Take 1 Univers 20 mg 3-29 tablet by ity of tablet 00:00: mouth 4 [place] 00 (four) Medical times Branch daily. ondansetron 2-0 Yes [id number] 4mg Take 1 Univers 4 mg 3-29 tablet by ity of disintegrat 00:00: mouth [place] ing tablet 00 every 4 Medica l (four) Branch hours as needed for Nausea and Vomiting (N/V). dicyclomine 2022-0 Yes [id number] 20mg Take 1 Univers 20 mg 3-29 tablet by ity of tablet 00:00: mouth 4 [place] 00 (four) Medical times Branch daily. ondansetron 2022-0 Yes [id number] 4mg Take 1 Univers 4 mg 3-29 tablet by ity of disintegrat 00:00: mouth [place] ing tablet 00 every 4 Medica l (four) Branch hours as needed for Nausea and Vomiting (N/V). AMITRIPTYLI 2021-0 Yes 1 tab Unive rs NE 50 MG 3-14 every AM ity of ORAL TAB 11:59: [address] simvastatin Yes 40mg Take 40 mg Univers (ZOCOR) 40 3-14 by mouth ity o f mg tablet 11:59: at [place] [address] bedtime. Medical Branch levothyroxi Yes 50ug Take 50 Uni vers ne 3-14 mcg by ity of (SYNTHROID) 11:59: mouth [place] 50 mcg 28 every Medical tablet morning. Branch ALBUTEROL Yes 1{puff} Inhale 1 U nivers SULFATE HFA 3-14 Puff as ity o f INHALE 11:59: needed. [address] HYDROcodone Yes 1{tbl} Take 1 Un donaldo -acetaminop 3-14 tablet by ity of hen 10-325 11:59: [place] 3 [place] mg tablet 28 (three) Medical times Rescue daily as needed. MAGNESIUM Yes 1{tbl} Take 1 Univ ers ORAL 3-14 tablet by ity of 11:59: mouth. [address] aspirin 81 Yes 81mg Take 81 mg U nivers mg EC 3-14 by mouth. ity of tablet 11:59: [address] estradioL Yes .5mg Take 0.5 Univ ers 0.5 mg 3-14 mg by ity of tablet 11:59: mouth. [address] esomeprazol Yes 40mg Take 40 mg Univers e 40 mg 3-14 by mouth. ity of capsule 11:59: [address] gabapentin Yes 600mg Take 600 Un donaldo ER 600 mg 3-14 mg by ity of tablet, 11:59: mouth. [place] [address] Medical release 24 Branch hr insulin Yes 85U inject 85 Unive rs degludec 3-14 Units ity of 100 unit/mL 11:59: [place] the [place] ([facility] Branch semaglutide Yes Take by Uni vers (RYBELSUS) 3-14 mouth. ity of 7 mg Tab 11:59: [address] trazodone Yes Take by Unive rs HCl 3-14 mouth. ity of (TRAZODONE 11:59: [facility]) [address] [place] [address] Branch FAMOTIDINE Yes Take by Univ ers ORAL 3-14 mouth. ity of 11:59: [address] linaclotide Yes Take by Uni vers (LINZESS 3-14 mouth. ity of ORAL) 11:59: [address] AMITRIPTYLI Yes 1 tab Unive rs NE 50 MG 3-14 every AM ity of ORAL TAB 11:59: [address] simvastatin Yes 40mg Take 40 mg Univers (ZOCOR) 40 3-14 by mouth ity o f mg tablet 11:59: at [place] [address] bedtime. Medical Branch levothyroxi Yes 50ug Take 50 Uni vers ne 3-14 mcg by ity of (SYNTHROID) 11:59: mouth [place] 50 mcg 28 every Medical tablet morning. Branch ALBUTEROL Yes 1{puff} Inhale 1 U nivers SULFATE HFA 3-14 Puff as ity o f INHALE 11:59: needed. [address] HYDROcodone Yes 1{tbl} Take 1 Un donaldo -acetaminop 3-14 tablet by ity of hen 10-325 11:59: [place] 3 [place] mg tablet 28 (three) Medical times Branch daily as needed. MAGNESIUM Yes 1{tbl} Take 1 Univ ers ORAL 3-14 tablet by ity of 11:59: mouth. [address] aspirin 81 Yes 81mg Take 81 mg U nivers mg EC 3-14 by mouth. ity of tablet 11:59: [address] estradioL Yes .5mg Take 0.5 Univ ers 0.5 mg 3-14 mg by ity of tablet 11:59: mouth. [address] esomeprazol Yes 40mg Take 40 mg Univers e 40 mg 3-14 by mouth. ity of capsule 11:59: [address] gabapentin Yes 600mg Take 600 Un donaldo ER 600 mg 3-14 mg by ity of tablet, 11:59: mouth. [place] [address] Medical release 24 Branch hr insulin Yes 85U inject 85 Unive rs degludec 3-14 Units ity of 100 unit/mL 11:59: under the [place] (3 mL) [facility] Branch semaglutide Yes Take by Uni vers (RYBELSUS) 3-14 mouth. ity of 7 mg Tab 11:59: [address] Branch trazodone Yes Take by Unive rs HCl 3-14 mouth. ity of (TRAZODONE 11:59: [place] ORAL) [address] [place] [address] Branch FAMOTIDINE Yes Take by Univ ers ORAL 3-14 mouth. ity of 11:59: [address] Branch linaclotide Yes Take by Uni vers (LINZESS 3-14 mouth. ity of ORAL) 11:59: [address] AMITRIPTYLI Yes 1 tab Unive rs NE 50 MG 3-14 every AM ity of ORAL TAB 11:59: [address] simvastatin Yes 40mg Take 40 mg Univers (ZOCOR) 40 3-14 by mouth ity o f mg tablet 11:59: at [place] [address] bedtime. Medical Branch levothyroxi Yes 50ug Take 50 Uni vers ne 3-14 mcg by ity of (SYNTHROID) 11:59: mouth [place] 50 mcg 28 every Medical tablet morning. Branch ALBUTEROL Yes 1{puff} Inhale 1 U nivers SULFATE HFA 3-14 Puff as ity o f INHALE 11:59: needed. [address] HYDROcodone Yes 1{tbl} Take 1 Un donaldo -acetaminop 3-14 tablet by ity of hen 10-325 11:59: mouth 3 [place] mg tablet 28 (three) Medical times Branch daily as needed. MAGNESIUM Yes 1{tbl} Take 1 Univ ers ORAL 3-14 tablet by ity of 11:59: mouth. [address] aspirin 81 Yes 81mg Take 81 mg U nivers mg EC 3-14 by mouth. ity of tablet 11:59: [address] estradioL Yes .5mg Take 0.5 Univ ers 0.5 mg 3-14 mg by ity of tablet 11:59: mouth. [address] esomeprazol Yes 40mg Take 40 mg Univers e 40 mg 3-14 by mouth. ity of capsule 11:59: [address] gabapentin Yes 600mg Take 600 Un donaldo ER 600 mg 3-14 mg by ity of tablet, 11:59: mouth. [place] [address] Medical release 24 Branch hr insulin Yes 85U inject 85 Unive rs degludec 3-14 Units ity of 100 unit/mL 11:59: under the [place] (3 mL) [facility] semaglutide Yes Take by Uni vers (RYBELSUS) 3-14 mouth. ity of 7 mg Tab 11:59: [address] Branch trazodone Yes Take by Unive rs HCl 3-14 mouth. ity of (TRAZODONE 11:59: [place] ORAL) [address] [place] [address] Branch FAMOTIDINE Yes Take by Univ ers ORAL 3-14 mouth. ity of 11:59: [address] linaclotide Yes Take by Un donaldo (LINZESS 3-14 mouth. ity of ORAL) 11:59: [address] Branch AMITRIPTYLI Yes 1 tab Unive rs NE 50 MG 3-14 every AM ity of ORAL TAB 11:59: [address] simvastatin Yes 40mg Take 40 mg Univers (ZOCOR) 40 3-14 by mouth ity o f mg tablet 11:59: at [place] [address] bedtime. Medical Branch levothyroxi Yes 50ug Take 50 Uni vers ne 3-14 mcg by ity of (SYNTHROID) 11:59: mouth [place] 50 mcg 28 every Medical tablet morning. Branch ALBUTEROL Yes 1{puff} Inhale 1 U nivers SULFATE HFA 3-14 Puff as ity o f INHALE 11:59: needed. [address] HYDROcodone Yes 1{tbl} Take 1 Un donaldo -acetaminop 3-14 tablet by ity of hen 10-325 11:59: mouth 3 [place] mg tablet 28 (three) Medical times Branch daily as needed. MAGNESIUM Yes 1{tbl} Take 1 Univ ers ORAL 3-14 tablet by ity of 11:59: mouth. [address] aspirin 81 Yes 81mg Take 81 mg U nivers mg EC 3-14 by mouth. ity of tablet 11:59: [address] estradioL Yes .5mg Take 0.5 Univ ers 0.5 mg 3-14 mg by ity of tablet 11:59: mouth. [address] esomeprazol Yes 40mg Take 40 mg Univers e 40 mg 3-14 by mouth. ity of capsule 11:59: [address] gabapentin Yes 600mg Take 600 Un donaldo ER 600 mg 3-14 mg by ity of tablet, 11:59: mouth. [place] [address] Medical release 24 Branch hr insulin Yes 85U inject 85 Unive rs degludec 3-14 Units ity of 100 unit/mL 11:59: under the [place] (3 mL) [facility] Branch semaglutide Yes Take by Uni vers (RYBELSUS) 3-14 mouth. ity of 7 mg Tab 11:59: [address] trazodone Yes Take by Unive rs HCl 3-14 mouth. ity of (TRAZODONE 11:59: [place] ORAL) [address] [place] [address] FAMOTIDINE Yes Take by Univ ers ORAL 3-14 mouth. ity of 11:59: [address] linaclotide Yes Take by Uni vers (LINZESS 3-14 mouth. ity of ORAL) 11:59: [address] AMITRIPTYLI Yes 1 tab Unive rs NE 50 MG 3-14 every AM ity of ORAL TAB 11:59: [address] simvastatin Yes 40mg Take 40 mg Univers (ZOCOR) 40 3-14 by mouth ity o f mg tablet 11:59: at [place] [address] bedtime. [facility] Branch levothyroxi Yes 50ug Take 50 Uni vers ne 3-14 mcg by ity of (SYNTHROID) 11:59: mouth [place] 50 mcg 28 every Medical tablet morning. Branch ALBUTEROL Yes 1{puff} Inhale 1 U nivers SULFATE HFA 3-14 Puff as ity o f INHALE 11:59: needed. [address] HYDROcodone Yes 1{tbl} Take 1 Un donaldo -acetaminop 3-14 tablet by ity of hen 10-325 11:59: mouth 3 [place] mg tablet 28 (three) Medical times Rescue daily as needed. MAGNESIUM Yes 1{tbl} Take 1 Univ ers ORAL 3-14 tablet by ity of 11:59: mouth. [address] aspirin 81 Yes 81mg Take 81 mg U nivers mg EC 3-14 by mouth. ity of tablet 11:59: [address] estradioL Yes .5mg Take 0.5 Univ ers 0.5 mg 3-14 mg by ity of tablet 11:59: mouth. [address] esomeprazol Yes 40mg Take 40 mg Univers e 40 mg 3-14 by mouth. ity of capsule 11:59: [address] gabapentin Yes 600mg Take 600 Un donaldo ER 600 mg 3-14 mg by ity of tablet, 11:59: mouth. [place] [address] Medical release 24 Branch hr insulin Yes 85U inject 85 Unive rs degludec 3-14 Units ity of 100 unit/mL 11:59: under the [place] (3 mL) In 28 skin. Medical Branch semaglutide Yes Take by Uni vers (RYBELSUS) 3-14 mouth. ity of 7 mg Tab 11:59: [address] trazodone Yes Take by Unive rs HCl 3-14 mouth. ity of (TRAZODONE 11:59: [facility]) [address] [place] [address] FAMOTIDINE Yes Take by Univ ers ORAL 3-14 mouth. ity of 11:59: [address] linaclotide Yes Take by Uni vers (LINZESS 3-14 mouth. ity of ORAL) 11:59: [address] predniSONE 2020-09 Yes [id number] 60mg Take 3 U nivers 20 mg 2-31 tablets by ity of tablet 00:00: mouth [place] 00 every Medical morning. Branch benzonatate 2020-09 Yes [id number] 100mg Take 1 Univers 100 mg 2-31 capsule by ity of capsule 00:00: mouth 3 [place] 00 (three) Medical times Branch daily as needed for Cough. predniSONE 2020-09 Yes [id number] 60mg Take 3 U nivers 20 mg 2-31 tablets by ity of tablet 00:00: mouth [place] 00 every Medical morning. Branch benzonatate 2020-09 Yes [id number] 100mg Take 1 Univers 100 mg 2-31 capsule by ity of capsule 00:00: mouth 3 [place] 00 (three) Medical times Branch daily as needed for Cough. predniSONE 2020-09 Yes [id number] 60mg Take 3 U nivers 20 mg 2-31 tablets by ity of tablet 00:00: mouth [place] 00 every Medical morning. Branch benzonatate 2020-09 Yes [id number] 100mg Take 1 Univers 100 mg 2-31 capsule by ity of capsule 00:00: mouth 3 [place] 00 (three) Medical times Branch daily as needed for Cough. predniSONE 2020-09 Yes [id number] 60mg Take 3 U nivers 20 mg 2-31 tablets by ity of tablet 00:00: mouth [place] 00 every Medical morning. Branch benzonatate 2020-09 Yes [id number] 100mg Take 1 Univers 100 mg 2-31 capsule by ity of capsule 00:00: mouth 3 [place] 00 (three) Medical times Branch daily as needed for Cough. predniSONE 2020-09 Yes [id number] 60mg Take 3 U nivers 20 mg 2-31 tablets by ity of tablet 00:00: mouth [place] 00 every Medical morning. Branch benzonatate 2020-09 Yes [id number] 100mg Take 1 Univers 100 mg 2-31 [...] MORNING FOR 90 DAYS methocarbam 2020-09 Yes [id number] 500mg Take 1 Univers oL 500 mg 2-01 tablet by ity o f tablet 00:00: mouth 4 [place] 00 (four) Medical times Branch daily as needed for Pain (scale 4-6). methocarbam 2020-09 Yes [id number] 500mg Take 1 Univers oL 500 mg 2-01 tablet by ity o f tablet 00:00: mouth 4 [place] 00 (four) Medical times Branch daily as needed for Pain (scale 4-6). methocarbam 2020-09 Yes [id number] 500mg Take 1 Univers oL 500 mg 2-01 tablet by ity o f tablet 00:00: mouth 4 [place] 00 (four) Medical times Branch daily as needed for Pain (scale 4-6). methocarbam 2020-09 Yes [id number] 500mg Take 1 Univers oL 500 mg 2-01 tablet by ity o f tablet 00:00: mouth 4 00 (four) Medical times Branch daily as needed for Pain (scale 4-6). methocarbam 2020-09 Yes [id number] 500mg Take 1 Univers oL 500 mg [...] OR OTHER MEDICINE OF THE DAY RYBELSUS 2020-09 Yes TAKE ONE Un donaldo [...] ity of tablet 00:00: 00 Medical Branch traZODone 2020-09 Yes Univers 100 mg 0-27 ity of tablet 00:00: Medical Branch traZODone 2020-09 Yes Univers 100 mg 0-27 ity of tablet 00:00: Medical Branch traZODone 2020-09 Yes Univers 100 mg 0-27 ity of tablet 00:00: 00 Medical Branch bupivacaine 2020- No [id number] 1mL [place] ([place]) 02-27 9102 Health 0.5 % 14:41: 14:41 injection 1 46 :00 mL triamcinolo 2020- No [id number] 80mg [place] ne 02-27 9102 [facility] acetonide 14:41: 14:41 (Kenalog-40 46 :00 ) injection 80 mg triamcinolo 2020- No [id number] 80mg 80 mg, [place] ne 02-27 9102 [facility] acetonide 14:41: 14:41 cular, (Kenalog-40 46 :00 Once PRN ) injection Procedure, 80 mg Starting on Thu02/27/21 at 0941, For 1 dose bupivacaine 2020-0 2020- No [id number] 1mL 1 mL, [place] (Marcaine) 02-27 9102 Injection, He alth 0.5 % 14:41: 14:41 Once PRN injection 1 46 :00 Procedure, mL Starting on Thu02/27/21 at 0941, For 1 dose amLODIPine 2020-0 Yes 5mg Take 5 mg Un donaldo 5 mg tablet 6-21 by mouth. ity of 00:00: [place] [facility] SERTraline 2020-0 Yes 50mg Take 50 mg U nivers 50 mg 6-21 by mouth. ity of tablet 00:00: [place] [facility] amLODIPine 2020-0 Yes 5mg Take 5 mg Un donaldo 5 mg tablet 6-21 by mouth. ity of 00:00: [facility] SERTraline 2020-0 Yes 50mg Take 50 mg U nivers 50 mg 6-21 by mouth. ity of tablet 00:00: [facility] amLODIPine 2020-0 Yes 5mg Take 5 mg Un donaldo 5 mg tablet 6-21 by mouth. ity of 00:00: [facility] SERTraline 2020-0 Yes 50mg Take 50 mg U nivers 50 mg 6-21 by mouth. ity of tablet 00:00: [facility] amLODIPine 2020-0 Yes 5mg Take 5 mg Un donaldo 5 mg tablet 6-21 by mouth. ity of 00:00: [facility] SERTraline 2020-0 Yes 50mg Take 50 mg U nivers 50 mg 6-21 by mouth. ity of tablet 00:00: [facility] amLODIPine 2020-0 Yes 5mg Take 5 mg Un donaldo 5 mg tablet 6-21 by mouth. ity of 00:00: [place] [facility] SERTraline 2020-0 Yes 50mg Take 50 mg U nivers 50 mg 6-21 by mouth. ity of tablet 00:00: [place] [facility] amLODIPine 2020-0 Yes 5mg QD Take 5 [...] 24 hr 00:00: mouth. [place] tablet 00 [facility] metformin 2021-0 Yes 500mg Take 500 Uni vers ER 500 mg 6-03 mg by ity of 24 hr 00:00: mouth. [place] tablet 00 [facility] metformin 2021-0 Yes 500mg Take 500 Uni vers ER 500 mg 6-03 mg by ity of 24 hr 00:00: mouth. [place] tablet 00 [facility] metformin 2021-0 Yes 500mg Take 500 Uni vers ER 500 mg 6-03 mg by ity of 24 hr 00:00: mouth. [place] tablet 00 [facility] metformin 2021-0 Yes 500mg Take 500 Uni vers ER 500 mg 6-03 mg by ity of 24 hr 00:00: mouth. [place] tablet 00 [facility] metFORMIN 2021-0 Yes 500mg QD Take 500 [...] mouth. ity of 3 mg Tab 00:00: [address] plecanatide 2020-0 Yes 3mg Take 3 mg U nivers (TRULANCE) 3-23 by mouth. ity of 3 mg Tab 00:00: [address] plecanatide 2020-0 Yes 3mg Take 3 mg U nivers (TRULANCE) 3-23 by mouth. ity of 3 mg Tab 00:00: [address] plecanatide 2020-0 Yes 3mg Take 3 mg U nivers (TRULANCE) 3-23 by mouth. ity of 3 mg Tab 00:00: [address] plecanatide 2020-0 Yes 3mg Take 3 mg U nivers (TRULANCE) 3-23 by mouth. ity of 3 mg Tab 00:00: [address] Trulance 3 2020-0 Yes 3mg Take [...] tab, PO, l Tablet 17:44: Daily, # [place] 90 tab, 0 Refill(s), Pharmacy: [facility] #[id number] Aspirin 81 2020-0 Yes 81 mg = 1 Me moria MG Chewable 3-16 tab, PO, l Tablet 17:44: Daily, # [place] 00 90 tab, 0 Refill(s), Pharmacy: [facility] #[id number] Esomeprazol 2020-0 No 40 mg, 1 Me moria e 3-16 cap, l 14:00: Route: PO, Drug form: ECCAP, Daily, Dosing Weight 79.091, kg, Start date: 11/21/19 9:00:00 CDT, Duration: 30 day, Stop date: 12/20/19 9:00:00 CDT Estradiol 2020-0 No Notes: Memori a 3-16 Hazardous l 14:00: Drug Group 2:Non-anti neoplastic Hazardous Drug -- Refer to safe handling procedure PPE [facility] Fluticasone No Notes: Brennen oscar propionate 3-16 (Same as: l 0.05 14:00: Flonase) [place] MG/ACTUAT 00 Metered Dose Nasal [place] [Flonase] Hydrochloro No 1 tab, Brennen oscar thiazide 25 3-16 Route: PO, l MG / 14:00: Drug Form: [place] Losartan 00 TAB, Potassium Dosing 100 MG Oral Weight Tablet 79.091, kg, Daily, Start date: 11/21/19 9:00:00 CDT, Duration: 30 day, Stop date: 12/20/19 9:00:00 CDT pantoprazol No Notes: Brennen oscar e 3-16 Tablet l 14:00: should not [place] 00 be chewed or crushed. (Same as: Protonix) Trulance 3 No Trulance 3 M emoria mg oral 3-16 mg oral l tablet 14:00: tablet, 3 Andrei n 00 mg, Route: PO, Daily, 11/21/19 9:00:00 CDT, Duration: 30 day, Stop date: 12/20/19 9:00:00 CDT Januvia No Notes: Memoria 3-16 Same as l 14:00: Januvia [place] Insulin No Notes: Memoria Glargine 3-16 (Same [...] Memoria 3-16 (Same as: l 14:00: Cozaar) [place] 00 Esomeprazol No 40 mg, 1 Me moria e 3-16 cap, l 14:00: Route: PO, [place] 00 Drug form: ECCAP, Daily, Dosing Weight 79.091, kg, Start date: 11/21/19 9:00:00 CDT, Duration: 30 day, Stop date: 12/20/19 9:00:00 CDT Estradiol 2019- No Notes: Memori a 3-16 Hazardous l 14:00: Drug Group [place] 00 2:Non-anti neoplastic Hazardous Drug -- Refer to safe handling procedure PPE [facility] Fluticasone No Notes: Brennen oscar propionate 3-16 (Same as: l 0.05 14:00: Flonase) [place] MG/ACTUAT 00 Metered Dose Nasal [place] [Flonase] Hydrochloro No 1 tab, Brennen oscar thiazide 25 3-16 Route: PO, l MG / 14:00: Drug Form: [place] Losartan 00 TAB, Potassium Dosing 100 MG Oral Weight Tablet 79.091, kg, Daily, Start date: 11/21/19 9:00:00 CDT, Duration: 30 day, Stop date: 12/20/19 9:00:00 CDT pantoprazol No Notes: Brennen oscar e 3-16 Tablet l 14:00: should not [place] 00 be chewed or crushed. (Same as: Protonix) Trulance 3 No Trulance 3 M emoria mg oral 3-16 mg oral l tablet 14:00: tablet, 3 Andrei n 00 mg, Route: PO, Daily, 11/21/19 9:00:00 CDT, Duration: 30 day, Stop date: 12/20/19 9:00:00 CDT Januvia No Notes: Memoria 3-16 Same as l 14:00: Januvia [place] 00 Insulin No Notes: Memoria Glargine 3-16 [...] (Same as: l 14:00: Cozaar) [place] 00 Esomeprazol No 40 mg, 1 Me moria e 3-16 cap, l 14:00: Route: PO, [place] 00 Drug form: ECCAP, Daily, Dosing Weight 79.091, kg, Start date: 11/21/19 9:00:00 CDT, Duration: 30 day, Stop date: 12/20/19 9:00:00 CDT Estradiol No Notes: Memori a 3-16 Hazardous l 14:00: Drug Group [place] 00 2:Non-anti neoplastic Hazardous Drug -- Refer to safe handling procedure PPE [facility] Fluticasone No Notes: Brennen oscar propionate 3-16 (Same as: l 0.05 14:00: Flonase) [place] MG/ACTUAT 00 Metered Dose Nasal [place] [Flonase] Hydrochloro No 1 tab, Brennen oscar [...] Memoria 3-16 (Same as: l 14:00: Cozaar) [place] 00 Thyroxine No Notes: Memori a 3-16 [...] a 3-16 Take 1 l 11:30: hour [place] 00 before or 2 hours after meal; [...] Brennen oscar 3-16 (Same l 02:00: as:Singula [place] 00 ir) Simvastatin No Notes: Brennen oscar [...] Memoria 3-16 (Same as: l 02:00: Humalog) [place] 00 Roll in palms of hands gently; [...] [place] 00 (Do Not Crush) Non Formulary Buspirone No Notes: Memori a 3-15 (Same As: l 22:00: BuSpar) [place] Amitiza No Notes: Memoria 3-15 Same as l 22:00: Amitiza [place] 00 (Do Not Crush) Non Formulary Buspirone No Notes: Memori a 3-15 (Same As: l 22:00: BuSpar) [place] Amitiza 2020-0 No Notes: Memoria 3-15 Same as l 22:00: Amitiza [place] 00 (Do Not Crush) Non Formulary Acetaminoph No Notes: Do M emoria en 325 MG / 3-15 not exceed l Hydrocodone 18:53: 4gm/day of [place] Bitartrate 00 acetaminop 10 MG Oral hen. (Same Tablet as: Ashkum [Ashkum 325/10) ] Acetaminoph No Notes: Do M emoria en 325 MG / 3-15 not exceed l Hydrocodone 18:53: 4gm/day of [place] Bitartrate 00 acetaminop 10 MG Oral hen. (Same Tablet as: Ashkum [Ashkum 325/10) ] Acetaminoph No Notes: Do M emoria en 325 MG / 3-15 not exceed l Hydrocodone 18:53: 4gm/day of [place] Bitartrate 00 acetaminop 10 MG Oral hen. (Same Tablet as: Ashkum [Ashkum 325/10) ] Albuterol No Notes: Memori a 0.833 MG/ML 3-15 (Same as: l / 18:49: Duoneb) [place] Ipratropium 00 [place] 0.167 MG/ML Inhalant Solution Albuterol 2019-0 No Notes: Memori a 0.833 MG/ML 3-15 (Same as: l / 18:49: Duoneb) [place] Ipratropium 00 [place] 0.167 MG/ML Inhalant Solution Albuterol 2019-0 No Notes: Memori a 0.833 MG/ML 3-15 (Same as: l / 18:49: Duoneb) [place] Ipratropium 00 [place] 0.167 MG/ML Inhalant Solution Tylenol 2019-0 No Notes: Do Memor ia 3-15 not exceed l 18:20: 4 gm/day. [place] (Same as: Tylenol) Tylenol 0 No Notes: Do Memor ia 3-15 not exceed l 18:20: 4 gm/day. [place] (Same as: Tylenol) Tylenol 0 No Notes: [...] 5,000 Memoria 3-15 unit, l 14:23: Route: [place] 00 SUB-Q, Q8H-06, Dosing Weight 79.091, kg, Priority: STAT, Start date: 11/20/19 9:23:00 CDT, Duration: 30 day, Stop date: 12/20/19 6:00:00 CDT Lexapro 2020-0 No 10 mg, Memoria 3-15 Route: PO, l 14:15: Drug form: [place] 00 TAB, Daily, Dosing Weight 79.091, kg, [...] day, Stop date: 12/20/19 9:00:00 CDT Furosemide 2019-0 No Notes: Memor ia 3-15 (Same as: [...] 0 No 50 mL, Memoria 50% in 3-15 Route: l Water IV 08:52: IVP, Start Her date: 11/20/19 3:52:00 CDT, Duration: 30 day, Stop date: 12/20/19 3:51:00 CDT, PRN Blood Glucose Results, 0 glucagon 2020-0 No 1 mg, Memoria 11-19 Route: l 08:52: INJ, Drug [place] 00 form: PDR/INJ, PRN, PRN Blood Glucose Results, Start date: 11/20/19 3:52:00 CDT, Duration: 30 day, Stop date: 12/20/19 3:51:00 CDT, 0 Humalog 2020-0 No Notes: Memoria 3-15 (Same as: l 08:52: Humalog) [place] 00 Roll in palms of hands gently; Do not shake vigorously . WASTE: F/P - Black; E - Municipal Trash Bin Stable for 28 days at room temperatur e. Expires in days from ____Date Dextrose 2020-0 No 50 mL, Memoria 50% in 11-19 Route: l Water IV 08:52: IVP, Start date: 11/20/19 3:52:00 CDT, Duration: 30 day, Stop date: 12/20/19 3:51:00 CDT, PRN Blood Glucose Results, 0 glucagon 2019-0 No 1 mg, Memoria 11-19 Route: l 08:52: INJ, Drug [place] 00 form: PDR/INJ, PRN, PRN Blood Glucose Results, Start date: 11/20/19 3:52:00 CDT, Duration: 30 day, Stop date: 12/20/19 3:51:00 CDT, 0 Humalog 2020-0 No Notes: Memoria 3-15 (Same as: l 08:52: Humalog) [place] 00 Roll in palms of hands gently; Do not shake vigorously . WASTE: F/P - Black; E - Municipal Trash Bin Stable for 28 days at room temperatur e. Expires in days from ____Date Dextrose 2020-0 No 50 mL, Memoria 50% in 11-19 Route: l Water IV 08:52: IVP, Start date: 11/20/19 3:52:00 CDT, Duration: 30 day, Stop date: 12/20/19 3:51:00 CDT, PRN Blood Glucose Results, 0 glucagon 2019-0 No 1 mg, Memoria 3-15 Route: l 08:52: INJ, Drug [place] 00 form: PDR/INJ, PRN, [...] e. Expires in days from ____Date Humalog 0 No Notes: Memoria 3-15 (Same as: l [...] a 3-15 (Same as: l 06:25: Normodyne, [place] 00 Trandate) Push over 2 minutes Give bolus over 2-3 minutes. Labetalol 2019-0 No Notes: Memori a 3-15 (Same as: l 06:25: Normodyne, [place] 00 Trandate) Push over 2 minutes Give bolus over 2-3 minutes. Hydralazine 2019-0 No Notes: Brennen oscar 3-15 (Same as: l 03:35: Apresoline [place] 00 ) Push over 5 minutes Hydralazine 2019-0 No Notes: Brennen oscar 3-15 (Same as: l 03:35: Apresoline [place] 00 ) Push over 5 minutes Hydralazine 2019-0 No Notes: Brennen oscar 3-15 (Same as: l 03:35: Apresoline [place] 00 ) Push over 5 minutes Furosemide 2019-0 No Notes: Memor ia 3-14 (Same as: l 23:33: Lasix) Losartan 2019-0 No Notes: Memoria 3-14 (Same as: l 23:33: Cozaar) Furosemide 2019-0 No Notes: Memor ia 3-14 (Same as: l 23:33: Lasix) Losartan 2019-0 No Notes: Memoria 3-14 (Same as: l 23:33: Cozaar) Furosemide 2019-0 No Notes: Memor ia 3-14 (Same as: l 23:33: Lasix) Losartan 2019-0 No Notes: Memoria 3-14 (Same as: l 23:33: Cozaar) POLYETHYLEN 2019-0 No Notes: Brennen oscar E GLYCOL 3-14 Dissolve l 3350 14:00: in 8 oz of [place] 00 water or juice. (Same as: Miralax) Aspirin 2019-0 No Notes: Memoria 3-14 Take with l 14:00: food. POLYETHYLEN 2019-0 No Notes: Brennen oscar E GLYCOL 3-14 Dissolve l 3350 14:00: in 8 oz of [place] 00 water or juice. (Same as: Miralax) Aspirin 2019-0 No Notes: Memoria 3-14 Take with l 14:00: food. POLYETHYLEN 2019-0 No Notes: Brennen oscar E GLYCOL 3-14 Dissolve l 3350 14:00: in 8 oz of [place] 00 water or juice. (Same as: Miralax) Aspirin 2019-0 No Notes: Memoria 3-14 Take with l 14:00: food. phenol 2020-0 No Notes: Memoria 3-14 Chlorasept l 02:54: ic [place] 00 (Same as: Chlorasept ic, Sore Throat [place]) WASTE: F/P - Black; E - Municipal Trash Bin phenol No Notes: Memoria 3-14 Chlorasept l 02:54: ic [place] (Same as: Chlorasept ic, Sore Throat [place]) WASTE: F/P - Black; E - Municipal Trash Bin phenol No Notes: Memoria 3-14 Chlorasept l 02:54: ic [place] 00 (Same as: Chlorasept ic, Sore Throat [place]) WASTE: F/P - Black; E - Municipal Trash Bin Famotidine No Notes: Memor ia 3-14 (Same as: l 02:00: Pepcid) [place] 00 Can be dilute in 5-10cc NS IVP: Slow IV push over at least 2 minutes. Saline No Notes: Memoria Flush 0.9% 3-14 (Same as: l 02:00: BD [place] 00 Posiflush) gabapentin 0 No Notes: Memor ia 3-14 (Same as: l 02:00: Neurontin) [place] 00 Famotidine 0 No Notes: Memor ia 3-14 (Same as: l 02:00: Pepcid) [place] 00 Can be dilute in 5-10cc NS IVP: Slow IV push over at least 2 minutes. Saline No Notes: Memoria Flush 0.9% 3-14 (Same as: l 02:00: BD [place] 00 Posiflush) gabapentin 0 No Notes: Memor ia 3-14 (Same as: l 02:00: Neurontin) [place] 00 Famotidine 0 No Notes: Memor ia 3-14 (Same as: l 02:00: Pepcid) [place] 00 Can be dilute in 5-10cc NS IVP: Slow IV push over at least 2 minutes. Saline No Notes: Memoria Flush 0.9% 3-14 (Same as: l 02:00: BD [place] 00 Posiflush) gabapentin 2019-0 No Notes: Memor ia 3-14 (Same as: l 02:00: Neurontin) [place] 00 glucagon 2020-0 No 1 mg, Memoria 3-14 Route: l 01:54: INJ, Drug [place] 00 form: PDR/INJ, PRN, PRN Blood Glucose Results, Start date: 11/18/19 20:54:00 CDT, Duration: 30 day, Stop date: 12/18/19 20:53:00 CDT, 0 glucagon 2020-0 No 1 mg, Memoria 3-14 Route: l 01:54: INJ, Drug [place] 00 form: PDR/INJ, PRN, PRN Blood Glucose Results, Start date: 11/18/19 20:54:00 CDT, Duration: 30 day, Stop date: 12/18/19 20:53:00 CDT, 0 glucagon 2020-0 No 1 mg, Memoria 3-14 Route: l 01:54: INJ, Drug [place] 00 form: PDR/INJ, PRN, PRN Blood Glucose Results, Start date: 11/18/19 20:54:00 CDT, Duration: 30 day, Stop date: 12/18/19 20:53:00 CDT, 0 Humalog 2020-0 No Notes: Memoria 3-14 [...] Memoria 3-14 (Same as: l 01:53: Humalog) [place] 00 Roll in palms of hands gently; [...] Memoria 3-14 (Same as: l 01:53: Humalog) [place] 00 Roll in palms of hands gently; Do not shake vigorously . WASTE: F/P - Black; E - Municipal Trash Bin Stable for 28 days at room temperatur e. Expires in days from ____Date Dextrose 2020-0 No 50 mL, Memoria 50% in 314 Route: l Water IV 01:53: IVP, Start [...] Memoria 3-14 (Same as: l 01:52: Humalog) [place] 00 Roll in palms of hands gently; Do not shake vigorously . WASTE: F/P - Black; E - Municipal Trash Bin Stable for 28 days at room temperatur e. Expires in days from ____Date Lasix 2020-0 No Notes: Memoria 3-13 (Same as: l 22:49: Lasix) [place] 00 MEDICATION WASTE Product Size: 40 mg Product Wasted: ___ mg Losartan 2020-0 No Notes: Memoria 3-13 (Same as: l 22:49: Cozaar) [place] Lasix 2020-0 No Notes: Memoria 3-13 (Same as: l 22:49: Lasix) [place] 00 MEDICATION WASTE Product Size: 40 mg Product Wasted: ___ mg Losartan 2020-0 No Notes: Memoria 3-13 (Same as: l 22:49: Cozaar) [place] 00 Lasix 2020-0 No Notes: Memoria 3-13 (Same as: l 22:49: Lasix) [place] 00 MEDICATION WASTE Product Size: 40 mg Product Wasted: ___ mg Losartan 2020-0 No Notes: [facility]oria 3-13 (Same as: l 22:49: Cozaar) [place] 00 ceFAZolin + 2020-0 No Notes: Brennen [...] Memoria 3-13 (Same as: l 19:19: Zofran) [place] 00 MEDICATION WASTE Product Size: 4 mg Product Wasted: ___ mg Albuterol 2019- No Notes: Memori a 0.833 MG/ML 3-13 (Same as: l / :: Duoneb) Ipratropium 00 [place] 0.167 MG/ML Inhalant Solution Saline No Notes: Memoria Flush 0.9% 3-13 (Same as: l :: BD [place] 00 Posiflush) Potassium No Notes: Memori a Chloride 3-13 (Same as: l : KCL) Infuse no faster than 10 mEq/hr if given peripheral ly. sodium No Notes: Memoria phosphate 3-13 Infuse l :26: over 4 [place] hour. Do not infuse phosphorou s concurrent [...] 3-13 (Same as: l odium 17:: Phos-NaK) phosphate 00 Each 1.5 250 mg-280 gm pkt has mg-160 mg 250mg oral powder phosphorou for s. Mix reconstitut w/2.5oz ion water and stir. Magnesium No Notes: Memori a Sulfate 3-13 WASTE: F/P l :: - Sink; E - Municipal Trash Bin Magnesium No Notes: Memori a Oxide 3-13 (Same as: l 17:: Mag-Ox [place] 00 400) Magnesium oxide 202ws=410m g elemental magnesium Dose=____m g magnesium oxide (___mg elemental magnesium) Calcium 2019-0 No Notes: Memoria Gluconate 3-13 WASTE: F/P l 17:: - Sink; E [place] 00 - Municipal Trash Bin Calcium 2019- No Notes: Memoria Carbonate 3-13 (Same As: l 500 MG :: Tums) [place] Chewable 00 Calcium Tablet Carbonate 500 mg = 200 mg elemental calcium Dose = mg calcium carbonate ( mg elemental calcium) Albuterol No Notes: Memori a 0.833 MG/ML 3- (Same as: l / : Duoneb) Ipratropium 00 [place] 0.167 MG/ML Inhalant Solution Saline No Notes: Memoria Flush 0.9% 3-13 (Same as: l :: BD [place] 00 Posiflush) Potassium No Notes: Memori a Chloride 3-13 (Same as: l : KCL) [place] 00 Infuse no faster than 10 mEq/hr if given peripheral ly. sodium No Notes: Memoria phosphate 3-13 Infuse l :26: over 4 [place] 00 hour. Do not [...] a phosphate-s 3-13 (Same as: l odium :: Phos-NaK) [place] phosphate 00 Each 1.5 250 mg-280 gm pkt has mg-160 mg 250mg oral powder phosphorou for s. Mix reconstitut w/2.5oz ion water and stir. Magnesium 2020-0 No Notes: Memori a Sulfate 3-13 WASTE: F/P l :: - Sink; E [place] - [facility] Trash Bin Magnesium 2020-0 No Notes: Memori a Oxide 3-13 (Same as: l :: Mag-Ox [place] 00 400) Magnesium oxide 241ex=608l g elemental magnesium Dose=____m g magnesium oxide (___mg elemental magnesium) Calcium 2019-0 No Notes: Memoria Gluconate 3-13 WASTE: F/P l 17:: - Sink; E [place] - Municipal Trash Bin Calcium 2020-0 No Notes: Memoria Carbonate 3-13 (Same As: l 500 MG :: Tums) [place] Chewable 00 Calcium Tablet Carbonate 500 mg = 200 mg elemental calcium Dose = mg calcium carbonate ( mg elemental calcium) Albuterol 2019-0 No Notes: Memori a 0.833 MG/ML 3-13 (Same as: l / : Duoneb) Ipratropium 00 [place] 0.167 MG/ML Inhalant Solution Saline 2019- No Notes: Memoria Flush 0.9% 3-13 (Same as: l :: BD [place] 00 Posiflush) Potassium 2019-0 No Notes: Memori a Chloride 3-13 (Same as: l :: KCL) Infuse no faster than 10 mEq/hr if given peripheral ly. sodium 2019-0 No Notes: Memoria phosphate 3-13 Infuse l 17:26: over 4 [place] hour. Do not infuse phosphorou s concurrent ly in the same line as TPN or IVF that contains calcium. For double lumen central lines, phosphorou s may be infused in a separate lumen from TPN. potassium 2020-0 No Notes: Memori a phosphate 3-13 (Same as: l :: K Phosphate. ) Do not infuse phosphorou [...] stir. Magnesium No Notes: Memori a Sulfate 11-17 WASTE: F/P l 17:26: - Sink; E [place] 00 - Municipal Trash Bin Magnesium No Notes: Memori a Oxide - (Same as: l 17:26: Mag-Ox [place] 00 400) Magnesium oxide [id number] g elemental magnesium Dose=____m g magnesium oxide (___mg elemental magnesium) Calcium No Notes: [facility] Gluconate 11-17 WASTE: F/P l 17:26: - Sink; E [place] 00 - Municipal Trash Bin Calcium No Notes: [facility] Carbonate - (Same As: l 500 MG 17:26: Tums) [place] Chewable 00 Calcium Tablet Carbonate 500 mg = 200 mg elemental calcium Dose = mg calcium carbonate ( mg elemental calcium) Acetaminoph No Notes: Do M emoria en -13 not exceed l 17:00: 4 gm/day. [place] (Same as: Tylenol) Acetaminoph No Notes: Do M emoria en 3-13 not exceed l 17:00: 4 gm/day. [place] (Same as: Tylenol) Acetaminoph No Notes: Do M emoria en 3-13 not exceed l 17:00: 4 gm/day. [place] 00 (Same as: Tylenol) Oxycodone 0 No Notes: Memori a Hydrochlori - (Same as: l de 5 MG 16:39: Roxicodone Herm mary Oral Tablet ) Tramadol No Notes: Not Mem oria 3-13 to exceed l 16:39: 400mg/day. [place] 00 (Same As: Ultram) Tramadol 0 No Notes: Not Mem oria 3-13 to exceed l 16:39: 400mg/day. [place] 00 (Same As: Ultram) gabapentin 0 No Notes: Memor ia 3-13 (Same as: l 16:39: Neurontin) Oxycodone 2019-0 No Notes: Memori a Hydrochlori 3-13 (Same as: l de 5 MG 16:39: Roxicodone Herm mary Oral Tablet ) gabapentin 0 No Notes: Memor ia 3-13 (Same as: l 16:39: Neurontin) Oxycodone 2019-0 No Notes: Memori a Hydrochlori 3-13 (Same as: l de 5 MG 16:39: Roxicodone Herm mary Oral Tablet ) Tramadol No Notes: Not Mem oria 3-13 to exceed l 16:39: 400mg/day. (Same As: Ultram) gabapentin No Notes: Memor ia 3-13 (Same as: l 16:39: Neurontin) niCARdipine 0 No Route: IV, Memoria (ANES) 3-13 Drug form: l 16:24: INJ, ONCE, Stop date: 11/18/19 11:24:00 CDT Diltiazem 2020-0 No 10 mg, Memori a 3-13 Route: IV, l 16:24: ONCE, Dosing Weight 79.091, kg, Start date: 11/18/19 11:24:00 CDT, Stop date: 11/18/19 11:24:00 CDT Hydromorpho 2019-0 No 0.5 mg, Mem oria ne 3-13 Route: l 16:24: IVP, ONCE, Dosing Weight 79.091, kg, Priority: STAT, Start date: 11/18/19 11:24:00 CDT, Stop date: 11/18/19 11:24:00 CDT niCARdipine 2019-0 No Route: IV, Memoria (ANES) 3-13 [...] oscar 3-13 Same as: l 16:12: Cardene [place] 00 Concentrat ion: (0.2 mg /1 ml ) Nicardipine 2020-0 No Notes: Brennen oscar 3-13 Same as: l 16:12: Cardene [place] 00 Concentrat ion: (0.2 mg /1 ml ) Nicardipine 2020-0 No Notes: Brennen oscar 3-13 Same as: l 16:12: Cardene [place] 00 Concentrat ion: (0.2 mg /1 ml ) [...] ONCE, Stop date: 11/18/19 10:52:00 CDT protamine 2020-0 No Route: IV, Me moria (ANES) 10 3- Drug form: l mg 15:17: INJ, Start date: 11/18/19 10:17:00 CDT, Stop date: 11/18/19 11:17:00 CDT protamine 2020-0 No Route: IV, Me moria (ANES) 10 11-17 Drug form: l mg 15:17: INJ, Start date: 11/18/19 10:17:00 CDT, Stop date: 11/18/19 11:17:00 CDT protamine 2020-0 No Route: IV, Me moria (ANES) 10 11-17 Drug form: l mg 15:17: INJ, Start date: 11/18/19 10:17:00 CDT, Stop date: 11/18/19 11:17:00 CDT heparin 2020-0 No Route: IV, Brennen oscar (ANES) 3- Drug form: l 14:46: INJ, ONCE, Stop [...] 9:05:00 CDT ceFAZolin 2020-0 No Route: IV, moria (ANES) 3-13 Drug form: l 14:05: INJ, ONCE, Stop date: 11/18/19 9:05:00 CDT fentaNYL 2020-0 No Route: IV, Mem oria (ANES) 3-13 Drug form: l 14:05: INJ, ONCE, Stop date: 11/18/19 9:05:00 CDT propofol 2020-0 No Route: IV, Mem oria (ANES) 3-13 Drug form: l 14:05: INJ, ONCE, Stop date: 11/18/19 9:05:00 CDT rocuronium 2020-0 No Route: IV, Nahed barria (ANES) 3-13 Drug form: l 14:05: INJ, ONCE, Stop date: 11/18/19 9:05:00 CDT ceFAZolin 2020-0 No Route: IV, moria (ANES) 3-13 Drug form: l 14:05: [...] ia 3-13 (Same as: l 11:36: Lopressor) [place] 00 Push over 2 minutes Sodium 2020-0 [...] oscar 3-09 unknown l 21:02: dose, 0 [place] 00 Refill(s) Januvia 2020-0 Yes PO, Daily, Brennen oscar 3-09 unknown l 21:02: dose, 0 [place] 00 Refill(s) Januvia 2020-0 Yes PO, Daily, Brennen oscar 3-09 unknown l 21:02: dose, 0 [place] 00 Refill(s) Sodium 2020-0 No 250 mL, [...] Rate: To l 0.9% 20:03: prime line [place] (titrate) 00 and flush 250 mL remaining blood products., Dosing Weight 81.023, kg, Route: IV, Total Volume: 250, Start Date: 11/14/19 15:03:00 CDT, Duration: 1 day, Stop date: 11/15/19 15:02:00 CDT, Replace Every: 24 hr, 0 Sodium 2020-0 No 250 mL, Memoria Chloride 3-09 Rate: To l 0.9% 20:03: prime line [place] (titrate) 00 and flush 250 mL remaining [...] INHALATION l / 18:03: , Q6H, PRN [place] Ipratropium 00 Wheezing, [place] # 30 ea, 1 0.167 MG/ML Refill(s) Inhalant Solution Fluticasone 2020-0 Yes NASAL, Brennen oscar propionate 3-09 Daily, 0 l 0.05 18:03: Refill(s) [place] MG/ACTUAT 00 Metered Dose Nasal [place] [Flonase] meloxicam 2020-0 Yes 15 mg = 1 Mem oria 15 mg oral 3-09 tab, PO, l tablet 18:03: Daily, # [place] 00 30 tab, 0 Refill(s) busPIRone 2020-0 [...] tab, PO, l oral 18:03: Daily, # [place] enteric 00 30 tab, 1 coated Refill(s) tablet montelukast 2020-0 Yes 10 mg = 1 M emoria 10 mg oral 3-09 tab, PO, l tablet 18:03: Bedtime, # Keisha nn 00 30 tab, 0 Refill(s) plecanatide 2020-0 Yes 3 mg = 1 Me moria 3 MG Oral 3-09 tab, PO, l Tablet 18:03: Daily, 0 [place] [Trulance] 00 Refill(s) Hydrochloro 2020-0 Yes 1 tab, PO, Memoria thiazide 25 3- Daily, # l MG / 18:03: 30 tab, 0 [place] Losartan 00 Refill(s) Potassium 100 MG Oral Tablet Albuterol 2020-0 Yes 3 mL, Memoria 0.833 MG/ML - INHALATION l / 18:03: , Q6H, PRN [place] Ipratropium 00 Wheezing, [place] # 30 ea, 1 0.167 MG/ML Refill(s) Inhalant Solution Fluticasone 2020-0 Yes NASAL, Brennen oscar propionate 3-09 Daily, 0 l 0.05 18:03: Refill(s) [place] MG/ACTUAT 00 Metered Dose Nasal [place] [Flonase] meloxicam 2020-0 Yes 15 mg = [...] microgram l Oral 18:03: = 1 cap, [place] Capsule 00 PO, BID, 0 [Amitiza] Refill(s) magnesium 2020-0 No 400 mg = 1 Me moria oxide 400 3-09 tab, PO, l mg oral 18:03: Daily, # Andrei n tablet 00 30 tab, 1 Refill(s) pantoprazol 2020-0 Yes 40 mg = 1 M emoria e 40 mg 3-09 tab, PO, l oral 18:03: Daily, # [place] enteric 00 30 tab, 1 coated Refill(s) tablet montelukast 2020-0 Yes 10 mg = 1 M emoria 10 mg oral 3-09 tab, PO, l tablet 18:03: Bedtime, # Keisha nn 00 30 tab, 0 Refill(s) plecanatide 2020-0 Yes 3 mg = 1 Me moria 3 MG Oral 3-09 tab, PO, l Tablet 18:03: Daily, 0 [place] [Trulance] 00 Refill(s) Hydrochloro 2020-0 Yes 1 tab, PO, Memoria thiazide 25 3-09 Daily, # l MG / 18:03: 30 tab, 0 [place] Losartan 00 Refill(s) Potassium 100 MG Oral Tablet Albuterol 2020-0 Yes 3 mL, Memoria 0.833 MG/ML 3- INHALATION l / 18:03: , Q6H, PRN [place] Ipratropium 00 Wheezing, [place] # 30 ea, 1 0.167 MG/ML Refill(s) Inhalant Solution Fluticasone 2020-0 Yes NASAL, Brennen oscar propionate 3-09 Daily, 0 l 0.05 18:03: Refill(s) [place] MG/ACTUAT 00 Metered Dose Nasal [place] [Flonase] meloxicam 2020-0 Yes 15 mg = 1 Mem oria 15 mg oral 3-09 tab, PO, l tablet 18:03: Daily, # [place] 00 30 tab, 0 Refill(s) busPIRone 2020-0 Yes 10 mg = 1 Mem oria 10 mg oral 3-09 tab, PO, l tablet 18:03: BID, 0 [place] 00 Refill(s) Esomeprazol 2020-0 Yes 40 mg [...] tab, PO, l oral 18:03: Daily, # [place] enteric 00 30 tab, 1 coated Refill(s) tablet montelukast 2020-0 Yes 10 mg = 1 M emoria 10 mg oral 3-09 tab, PO, l tablet 18:03: Bedtime, # Keisha nn 00 30 tab, 0 Refill(s) plecanatide 2019-0 Yes 3 mg = 1 Me moria 3 MG Oral 3-09 tab, PO, l Tablet 18:03: Daily, 0 [place] [Trulance] 00 Refill(s) HYDROcodone 2017-09 Yes 1{tbl} Q.08884252 Take 1 [facility] -acetaminop -[id number] hen (NORCO) 21:45: 3D mouth 3 [facility] leonardo 7.5-325 mg 51 (three) l per tablet times a day. methocarbam 2017-09 Yes 750mg Q.70229534 Take 750 Method[facility] ol -[id number] (ROBAXIN) 21:45: 3D mouth [...] morning. unit/mL (3 mL) insulin pen aspirin 2018-1 Yes 81mg QD Take 81 mg Meth bharati (ECOTRIN) 1-[address] 81 MG 21:45: daily. [facility]ospita enteric 51 l coated tablet MAGNESIUM 2017-09 Yes 1{tbl} QD Take 1 Meth bharati ORAL 1-[address] 21:45: mouth [facility]osp[facility] 51 daily. l Pure Magnesium albuterol 2017-09 Yes 1{puff} Q.00642724 Inhale 1 [facility] (PROAIR -[id number] HFA,PROVENT 21:45: 3D (three) Hos [place] [place] 51 times a l HFA,VENTOLI day as N HFA) 90 needed for mcg/actuati wheezing on inhaler or shortness of breath. meloxicam 2017-09 Yes 15mg QD Take 15 mg Me thodi (MOBIC) 15 1-[address] mg tablet 21:45: daily. Hospit a 51 l DULoxetine 2017-09 Yes 20mg QD Take 20 mg M ethodi (CYMBALTA) -[address] 20 MG 21:45: daily. Hospita capsule 51 l HYDROcodone 2017-09 Yes 1{tbl} Q.86147023 Take 1 [facility] -acetaminop -[id number] hen (NORCO) 15:45: 3D mouth 3 [facility]ardo 7.5-325 mg 51 (three) l per tablet times a day. methocarbam 2017-09 Yes 750mg Q.88377864 Take 750 Methodi ol 1-[id number] (ROBAXIN) 15:45: 3D mouth [...] daily. Hospita enteric 51 l coated tablet HYDROcodone 2017-09 Yes 1{tbl} Q.53944875 Take 1 [facility] -acetaminop 1-[id number] hen (NORCO) 15:45: 3D mouth 3 [facility] leonardo 7.5-325 mg 51 (three) l per tablet times a day. MAGNESIUM 2017-09 Yes 1{tbl} QD Take 1 Meth bharati ORAL 1-[address] 15:45: mouth [facility]osp[facility] 51 daily. l Pure Magnesium methocarbam 2017-09 Yes 750mg Q.30333666 Take 750 [facility] ol 1-[id number] (ROBAXIN) 15:45: 3D mouth [...] l Pure Magnesium albuterol 2017-09 Yes 1{puff} Q.80551470 Inhale 1 [facility] (PROAIR 1-[id number] HFA,PROVENT 15:45: 3D (three) [...] MG 15:45: daily. Hospita capsule 51 l albuterol 2017-09 Yes 1{puff} Q.90538881 Inhale 1 [facility] (PROAIR 1-[id number] HFA,PROVENT 15:45: 3D (three) [...] capsule 51 l HYDROcodone 2017-09 Yes 1{tbl} Q.25696722 Take 1 [facility] -acetaminop -[id number] hen (NORCO) 15:45: 3D mouth 3 Hos leonardo 7.5-325 mg 51 (three) l per tablet times a day. methocarbam 2017-09 Yes 750mg Q.17172241 Take 750 Method[facility] ol -[id number] (ROBAXIN) 15:45: 3D mouth [...] l Pure Magnesium albuterol 2017-09 Yes 1{puff} Q.50330682 Inhale 1 [facility] (PROAIR -[id number] HFA,PROVENT 15:45: 3D (three) [...] capsule 51 l HYDROcodone 2017-09 Yes 1{tbl} Q.[id number] Take 1 [facility] -acetaminop -[id number] hen (NORCO) 15:45: 3D mouth 3 Hos leonardo 7.5-325 mg 51 (three) l per tablet times a day. methocarbam 2017-09 Yes 750mg Q.86415743 Take 750 [facility] ol 1-[id number] (ROBAXIN) 15:45: 3D mouth [...] l Pure Magnesium albuterol 2017-09 Yes 1{puff} Q.09229067 Inhale 1 [facility] (PROAIR -[id number] HFA,PROVENT 15:45: 3D (three) [...] capsule 51 l HYDROcodone 2017-09 Yes 1{tbl} Q.[id number] Take 1 [facility] -acetaminop -[id number] hen (NORCO) 15:45: 3D mouth 3 Hos leonardo 7.5-325 mg 51 (three) l per tablet times a day. methocarbam 2017-09 Yes 750mg Q.[id number] Take 750 Method[facility] ol 1-[id number] (ROBAXIN) 15:45: 3D mouth 3 Hospi ta 500 MG 51 (three) l tablet times a day. Takes 500 mg 1.5 TAB. (750 mg) gabapentin 2017-09 Yes 600mg QD Take 600 Me thodi (GRALISE) 1-[address] 600 mg 15:45: mouth Hospita tablet 51 daily. l extended release 24 hr montelukast 2018-1 Yes 10mg QD Take 10 mg Methodi [...] l Pure Magnesium albuterol 2017-09 Yes 1{puff} Q.34241704 Inhale 1 [facility] (PROAIR -[id number] HFA,PROVENT 15:45: 3D (three) [...] capsule 51 l HYDROcodone 2017-09 Yes 1{tbl} Q.[id number] Take 1 [facility] -acetaminop 09-[id number] hen (NORCO) 15:45: 3D mouth 3 Hos leonardo 7.5-325 mg 51 (three) l per tablet times a day. methocarbam 2017-09 Yes 750mg Q.[id number] Take 750 Methodi ol -[id number] (ROBAXIN) 15:45: 3D mouth [...] l Pure Magnesium albuterol 2017-09 Yes 1{puff} Q.12169178 Inhale 1 [facility] (PROAIR 1-[id number] HFA,PROVENT 15:45: 3D (three) [...] spasms for up to 40 doses. methocarbam Yes 750mg Q8H Take 1 Met hodi ol -[address] (ROBAXIN-75 00:00: (750 mg Hos [...] 1 tablet Common HCl HCl [facility] [place] Ordered Immunization Filled Immunization Date Status Commen ts Source Name Name SARS-COV-2 COVID-19 2021-06-21 Completed Unive [facility] of PFIZER VACCINE 00:00:00 [facility] SARS-COV-2 COVID-19 2021-06-21 Completed Unive rsity of PFIZER VACCINE 00:00:00 [facility] SARS-COV-2 COVID-19 2021-06-21 Completed Unive rsity of PFIZER VACCINE 00:00:00 [facility] SARS-COV-2 COVID-19 2021-06-21 Completed Unive rsity of PFIZER VACCINE 00:00:00 [facility] SARS-COV-2 COVID-19 2021-06-21 Completed Unive rsity of PFIZER VACCINE 00:00:00 [facility] SARS-COV-2 COVID-19 2021-05-31 Completed Unive rsity of PFIZER VACCINE 00:00:00 [facility] SARS-COV-2 COVID-19 2021-05-31 Completed Unive rsity of PFIZER VACCINE 00:00:00 [facility] SARS-COV-2 COVID-19 2021-05-31 Completed Unive rsity of PFIZER VACCINE 00:00:00 [facility] SARS-COV-2 COVID-19 2021-05-31 Completed Unive rsity of PFIZER VACCINE 00:00:00 [facility] SARS-COV-2 COVID-19 2021-05-31 Completed Unive rsity of PFIZER VACCINE 00:00:00 [facility] [place] Sars-cov-2 2020-[facility] [...] h Free 18-64 YRS Influenza, 2020-06-25 Completed [facility] quadrivalent, 00:00:00 injectable, preservative free Influenza, 2020-06-25 Completed [facility] quadrivalent, 00:00:00 injectable, preservative free Influenza, 2020-06-25 Completed [facility] quadrivalent, 00:00:00 injectable, preservative free Influenza, 2020-06-25 Completed [facility] quadrivalent, 00:00:00 injectable, preservative free Influenza, 2020-06-25 Completed [facility] recombinant, 00:00:00 quadrivalent, injectable, preservative free Influenza, 2020-06-25 Completed [facility] recombinant, 00:00:00 quadrivalent, injectable, preservative free Influenza, 2020-06-25 Completed [facility] quadrivalent, 00:00:00 injectable, preservative free Influenza, 2020-06-25 Completed [facility] quadrivalent, 00:00:00 injectable, preservative free Influenza High Dose 2020-05-10 Completed Unive [facility] of Quad 00:00:00 [facility] Influenza High Dose 2020-05-10 Completed Unive rsity of 00:00:00 [facility] Influenza High Dose 2020-05-10 Completed [facility] of Quad 00:00:00 [facility] Influenza High Dose 2020-05-10 Completed Unive rsity of 00:00:00 [facility] Influenza High Dose 2020-05-10 Completed [facility] of [place] 00:00:00 [facility] Influenza High Dose 2020-05-10 Completed Unive rsity of 00:00:00 [facility] Influenza High Dose 2020-05-10 Completed [facility]ive [facility] of Quad 00:00:00 [facility] Influenza High Dose 2020-05-10 Completed Unive rsity of 00:00:00 [facility] Influenza High Dose 2020-05-10 Completed [facility]ive [facility] of Quad 00:00:00 [facility] Influenza High Dose 2020-05-10 Completed Unive rsity of 00:00:00 [facility] Influenza, High Dose 2020-05-10 [facility] [...] Vaccine 2019-08-20 Completed University of Recombinant 00:00:00 [facility] Zoster Vaccine 2019-08-20 Completed University [facility] Recombinant 00:00:00 [facility] Zoster Vaccine 2019-08-20 Completed [facility] of Recombinant 00:00:00 [facility] Zoster Vaccine 2019-08-20 Completed [facility] of Recombinant 00:00:00 [facility] Zoster Vaccine 2019-08-20 Completed [facility] Recombinant 00:00:00 [facility] Zoster, Recombinant 2019-08-[facility] [...] 00:00:00 MMR 2019-04-30 Completed [facility] 00:00:00 [facility] MMR 2019-04-30 Completed University [facility] 00:00:00 [facility] MMR 2019-04-30 Completed University of 00:00:00 [facility] MMR 2019-04-30 Completed University of 00:00:00 [facility] MMR 2019-04-30 Completed [facility] 00:00:00 [facility] MMR 2019-04-30 [facility] 00:00: MMR 2019-04-30 Completed [facility] 00:00:00 MMR 2019-04-30 Completed [facility] 00:00:00 MMR 2019-04-30 Completed [facility] 00:00: MMR 2019-04-30 Completed [facility] 00:00:00 MMR 2019-04-30 Completed [facility] 00:00:00 MMR 2019-04-30 Completed [facility] 00:00:00 MMR 2019-04-30 Completed [facility] 00:00:00 Zoster Vaccine 2019 Completed [facility] of Recombinant 00:00:00 [facility] Zoster Vaccine 2019 Completed [facility] of Recombinant 00:00:00 [facility] Zoster Vaccine 2019 Completed [facility] of Recombinant 00:00:00 [facility] Zoster Vaccine 2019 Completed University of Recombinant 00:00:00 [facility] Zoster Vaccine 2019 Completed [facility] of Recombinant 00:00:00 [facility] Zoster, Recombinant [facility] [...] 2009-08-27 Completed [facility] of Vaccine 00:00:00 [facility] Influenza Virus 2009-08-27 Completed Universit y of Vaccine 00:00:00 [facility] Influenza Virus 2009-08-27 Completed Universit [facility] of Vaccine 00:00:00 [facility] Influenza Virus 2009-08-27 Completed Universit y of Vaccine 00:00:00 [facility] Influenza Virus 2009-08-27 Completed Universit y of Vaccine 00:00:00 [facility] Influenza, 2009-08-27 [facility] Unspecified 00:00:00 [...] 17:21:00 183 mm[Hg] Univer sity of pressure [facility] Diastolic blood 2022-06-29 17:21:00 98 mm[Hg] Unive rsity of [facility] Heart rate 2022-06-29 17:21:00 73 /min [facility] ty [facility] Body temperature 2022-06-29 17:21:00 36.72 Kelly [facility] Respiratory rate 2022-06-29 17:21:00 22 /min [facility] Body height 2022-06-29 17:21:00 162.6 cm [facility] Body weight 2022-06-29 17:21:00 86.183 kg [facility] BMI 2022-06-29 17:21:00 32.61 kg/m2 [facility] Oxygen saturation in 2022-06-29 17:21:00 97 /min [facility] Arterial blood by [facility] Pulse oximetry Branch Systolic blood 2022-05-06 15:23:00 156 mm[Hg] Univer sity of pressure [facility] Diastolic blood 2022-05-06 15:23:00 72 mm[Hg] Unive rsity of pressure [facility] Heart rate 2022-05-06 15:23:00 72 /min Universi ty [facility] Body temperature 2022-05-06 15:23:[address] [facility] Body height 2022-05-06 15:23:00 162.6 cm [facility] Body weight 2022-05-06 15:23:00 89.359 kg [facility] BMI 2022-05-06 15:23:00 33.81 kg/m2 [facility] Systolic blood 2021-09-11 20:47:00 139 mm[Hg] [facility] [...] Healt h Heart Rate 2019-11-21 15:32:00 [facility] Respitory Rate 2019-11-21 15:32:00 Liliya al [place] Systolic (mm Hg) 2019-11-21 15:32:00 Brennen massey [place] Diastolic (mm Hg) 2019-11-21 15:32:00 Mem oriangelika [place] Heart Rate 2019-11-21 12:57:00 [facility] Respitory Rate 2019-11-21 12:57:00 Memori al [place] Systolic (mm Hg) 2019-11-21 12:57:00 Brennen rial [place] Diastolic (mm Hg) 2019-11-21 12:57:00 Mem orial [place] Heart Rate 2019-11-21 08:37:00 [facility] [place] Respitory Rate 2019-11-21 08:37:00 Memori al [place] Systolic (mm Hg) 2019-11-21 08:37:00 Brennen rial [place] Diastolic (mm Hg) 2019-11-21 08:37:00 Mem orial [place] Temperature Oral (F) 2019-11-18 12:00:00 98.3 F [facility] Weight 2019-11-18 11:45:00 [facility] [place] BMI Calculated 2019-11-18 11:45:00 Memori al [place] Height 2019-11-14 19:59:00 162.56 cm [facility] [place] Systolic (mm Hg) 2019-11-14 17:59:00 Brennen rial [place] Diastolic (mm Hg) 2019-11-14 17:59:00 Mem orial [place] Heart Rate 2019-11-14 17:59:00 [facility] [place] Height 2019-11-14 17:59:00 162.56 cm [facility] [place] Weight 2019-11-14 17:59:00 [facility] [place] BMI Calculated 2019-11-14 17:59:00 Memori al [place] Procedures Procedure Date / Time Performing Clinician Source Performed [place] SMALL BOWEL SERIES 2022-07-02 15:57:31 Pradip Morfin [facility] ASSIGNMENT OF BENEFITS 2022-06-29 18:10:12 Doctor Unassigned, [facility] CREATINE KINASE 2022-06-29 17:56:00 Zackary Haywood [facility] MAGNESIUM 2022-06-29 17:56:00 Yobany Zackary [facility] BASIC METABOLIC PANEL 2022-06-29 17:56:00 Zackary Haywood [facility] (NA, K, CL, CO2, GLUCOSE, Medica l Branch BUN, CREATININE, CA) CONSENT/REFUSAL FOR 2022-06-29 17:15:25 Doctor Unassigned, [facility] DIAGNOSIS AND TREATMENT [facility] XR LUMBAR SPINE 2 VW 2022-05-06 15:32:47 Armond Montoya [facility] REFERRAL- 2022-04-25 05:01:00 Doctor Unassigned, [facility] REQUEST/RESPONSE [facility] MRI LUMBAR SPINE WO 2021-03-19 13:02:57 Josh [facility] CONTRAST [place] ARTHROCENTESIS 2021-02-27 14:41:46 [facility] ASPIR&/INJ MAJOR JT/BURSA W/O US XR LUMBAR SPINE AP 2020-11-13 14:56:47 Royce Rivers [facility] LATERAL FLEXION AND EXTENSION Knee [facility] replacement<sup>1</sup> Gallbladder operation [facility] Rotator cuff repair [facility] Lumbar laminectomy and [facility] excision of intradural spinal lesion Hysterectomy [facility] Appendectomy [facility] Cataract extraction [facility] Plan of Care Planned Activity Planned Date Details Comments Source Future Scheduled 2022-08-31 COVID-19 VACCINE (#1) [facility] Test 04:20:34 [code = COVID-19 VACCINE (#1)] Future Scheduled 2022-08-31 Hepatitis C screening [facility] Test 04:20:34 (procedure) [code = 565347696] Future Scheduled 2022-08-31 Screening for [facility] Test 04:20:34 malignant neoplasm of cervix (procedure) [code = 103897890] Future Scheduled 2022-08-31 BREAST CANCER [facility] Test 04:20:34 SCREENING [code = BREAST CANCER SCREENING] Future Scheduled 2022-08-31 COLONOSCOPY SCREENING [facility] Test 04:20:34 [code = COLONOSCOPY SCREENING] Future Scheduled 2022-08-31 [facility]ZA [facility]ACCINE [facility] 04:20:34 [code = INFLUENZA VACCINE] Future Scheduled 2022-05-29 HEPATITIS B VACCINES Met [facility] Test 07:48:01 (1 of 3 - 3-dose series) [code = HEPATITIS B VACCINES (1 of 3 - 3-dose series)] Future Scheduled 2022-05-29 COVID-19 VACCINE (#1) [facility] Test 07:48:01 [code = COVID-19 VACCINE (#1)] Future Scheduled 2022-05-29 Hepatitis C screening [facility] Test 07:48:01 (procedure) [code = 331469721] Future Scheduled 2022-05-29 Screening for [facility] Test 07:48:01 malignant neoplasm of cervix (procedure) [code = 235784743] Future Scheduled 2022-05-29 BREAST CANCER [facility] Test 07:48:01 SCREENING [code = BREAST CANCER SCREENING] Future Scheduled 2022-05-29 COLONOSCOPY SCREENING [facility] Test 07:48:01 [code = COLONOSCOPY SCREENING] Future Scheduled 2022-05-29 INFLUENZA VACCINE Method [facility] Test 07:48:01 [code = INFLUENZA VACCINE] Future Scheduled 2022-05-29 HEPATITIS B VACCINES Met [facility] Test 07:48:01 (1 of 3 - 3-dose series) [code = HEPATITIS B VACCINES (1 of 3 - 3-dose series)] Future Scheduled 2022-05-29 COVID-19 VACCINE (#1) [facility] Test 07:48:01 [code = COVID-19 VACCINE (#1)] Future Scheduled 2022-05-29 Hepatitis C screening [facility] Test 07:48:01 (procedure) [code = 508973256] Future Scheduled 2022-05-29 Screening for [facility] Test 07:48:01 malignant neoplasm of cervix (procedure) [code = 692427509] Future Scheduled 2022-05-29 BREAST CANCER [facility] Test 07:48:01 SCREENING [code = BREAST CANCER SCREENING] Future Scheduled 2022-05-29 COLONOSCOPY SCREENING [facility] Test 07:48:01 [code = COLONOSCOPY SCREENING] Future Scheduled 2022-05-29 INFLUENZA VACCINE Method [facility] Test 07:48:01 [code = INFLUENZA VACCINE] Future Scheduled 2022-05-06 HEPATITIS B VACCINES Met [facility] Test 10:13:08 (1 of 3 - 3-dose series) [code = HEPATITIS B VACCINES (1 of 3 - 3-dose series)] Future Scheduled 2022-05-06 COVID-19 VACCINE (#1) [facility] Test 10:13:08 [code = COVID-19 VACCINE (#1)] Future Scheduled 2022-05-06 Hepatitis C screening [facility] Test 10:13:08 (procedure) [code = 844845964] Future Scheduled 2022-05-06 Screening for [facility] Test 10:13:08 malignant neoplasm of cervix (procedure) [code = 932054759] Future Scheduled 2022-05-06 BREAST CANCER [facility] Test 10:13:08 SCREENING [code = BREAST CANCER SCREENING] Future Scheduled 2022-05-06 COLONOSCOPY SCREENING Me [facility] Test 10:13:08 [code = COLONOSCOPY SCREENING] Future Scheduled 2022-05-06 INFLUENZA VACCINE [facility] Test 10:13:08 [code = INFLUENZA VACCINE] Future Scheduled 2021-09-19 COVID-19 VACCINE (1) Met [facility] Test 04:08:39 [code = COVID-19 VACCINE (1)] Future Scheduled 2021-09-19 Hepatitis C screening [facility] Test 04:08:39 (procedure) [code = 320271722] Future Scheduled 2021-09-19 Screening for [facility] Test 04:08:39 malignant neoplasm of cervix (procedure) [code = 468617840] Future Scheduled 2021-09-19 BREAST CANCER [facility] Test 04:08:39 SCREENING [code = BREAST CANCER SCREENING] Future Scheduled 2021-09-19 COLONOSCOPY SCREENING [facility] Test 04:08:39 [code = COLONOSCOPY SCREENING] Future Scheduled 2021-09-19 INFLUENZA VACCINE [facility] Test 04:08:39 [code = INFLUENZA VACCINE] Future Scheduled 2021-09-19 COVID-19 VACCINE (1) Met [facility] Test 04:08:39 [code = COVID-19 VACCINE (1)] Future Scheduled 2021-09-19 Hepatitis C screening [facility] Test 04:08:39 (procedure) [code = 321385775] Future Scheduled 2021-09-19 Screening for [facility] Test 04:08:39 malignant neoplasm of cervix (procedure) [code = 297176000] Future Scheduled 2021-09-19 BREAST CANCER [facility] Test 04:08:39 SCREENING [code = BREAST CANCER SCREENING] Future Scheduled 2021-09-19 COLONOSCOPY SCREENING [facility] Test 04:08:39 [code = COLONOSCOPY SCREENING] Future Scheduled 2021-09-19 INFLUENZA VACCINE [facility] Test 04:08:39 [code = INFLUENZA VACCINE] Future Scheduled DIABETES: RETINAL EYE [facility] Test EXAM [code = DIABETES: RETINAL EYE EXAM] Future Scheduled DIABETIC FOOT EXAM [facility] Test [code = DIABETIC FOOT EXAM] Future Scheduled URINE MICROALBUMIN [facility] Test [code = URINE MICROALBUMIN] Future Scheduled COVID-19 VACCINE (1) [facility] [code = COVID-19 VACCINE (1)] Future Scheduled [facility] (procedure) [code = 155125293] Future Scheduled Screening for [facility] Test malignant neoplasm of cervix (procedure) [code = 177453648] Future Scheduled BREAST CANCER [facility] Test SCREENING [code = BREAST CANCER SCREENING] Future Scheduled [facility] Test [code = COLONOSCOPY SCREENING] Future Scheduled INFLUENZA VACCINE [facility] Test [code = INFLUENZA VACCINE] Encounters Start End Encounter Admission Attending Care Care Encounter Source Date/Time Date/Time Type Type Clinicians Facility Department ID 2022-06-09 Outpatient De Anda, STLMLC [facility] [id number] Common 14:43:01 Baljeet [facility] 2022-03-11 Outpatient De Anda, STLC [facility] Common 07:59:00 Baljeet [facility] 2022-03-07 [facility] Common 09:35:01 Baljeet [facility] 2022-02-20 Outpatient De Anda, STLC [facility] Common 15:57:00 Baljeet [facility] 2022-02-07 Outpatient GIANNA ROBERTS [facility] 7501 13:35:33 [facility] 2021-10-02 Outpatient De Anda, STLMLC [facility] Common 14:26:56 Baljeet [id number] [facility] 2021-10-02 Outpatient [facility] Common 14:26:22 Baljeet [id number] [facility] 2021-10-02 Outpatient De Anda, [facility] Common 14:17:54 Baljeet [id number] [facility] 2021-10-02 Outpatient Guerrero[facility] [id number] Common 14:09:58 Vira [id number] [facility] 2021-10-02 Outpatient CHRISTIANO Ramirez [facility] [id number] Common 11:05:50 Tawana [id number] [facility] 2021-10-02 Outpatient CHRISTIANO Ramirez [facility] [id number] Common 11:03:36 Tawana 73552 [facility] 2021-07-09 Emergency [facility] [id number] Univers 03:44:02 ity [facility] 2021-07-08 Emergency [facility] [id number] Univers 21:59:[facility]06 [facility] [id number] Univers 00:05:05 [facility] 2021-07-05 Outpatient [facility] [id number] Univers 16:33:55 [facility] 2022-07-02 2022-07-02 [facility] [id number] Univers 09:02:16 23:59:00 PRADIP ittristan [facility] 2022-07-02 2022-07-02 [facility] 1.2.840.114 [id number] Univers 09:02:16 23:59:00 Encounter Pradip SOLER 350.1.13.10 ity [facility] 4.2.7.2.686 [facility] [id number] [facility] 807 Branch 2022-06-29 2022-06-29 Emergency X [facility] ERT [id number] Univers 12:22:00 14:19:00 ZACKARY alanis [facility] 2022-06-29 2022-06-29 Emergency [facility] 1.2.454.500 [id number] Univers 12:22:00 14:19:00 Zackary ELVACHIQUI 350.1.13.10 i ty [facility] 4.2.7.2.686 [facility] [id number] [facility] 084 Branch 2022-05-06 2022-05-06 [facility] 1.2.840.114 [id number] Univers 10:25:00 23:59:00 Encounter Armond SPECIALTY 350.1.13.10 ity of [facility] [place].2.7.2.686 [place] C[place] AT [phone] [place] bryantangelika DUKES 809 [facility] 2022-05-06 2022-05-06 [facility] [id number] Univers 10:00:00 15:17:56 ALE ity [facility] 2022-05-06 2022-05-06 [facility] [id number] Univers 10:00:00 15:17:56 ALE ity [facility] 2022-05-06 2022-05-06 Office [facility] 1.2.840.114 [id number] Univers 10:00:00 10:20:00 Visit Ale SPECIALTY 350.1.13.10 ity of [facility] 4.2.7.2.[address] [facility] CENTER AT [phone] [place] bryantangelika DUKES 198 [facility] 2022-05-06 2022-05-06 Outpatient Christine [facility] [id number] Univers 10:00:00 10:00:00 ALE ity [facility] 2022-05-02 2022-05-02 Outpatient [facility] [id number] Univers 08:29:48 23:59:[address] [facility] [place] [place] 2022-05-02 2022-05-02 Outpatient [facility] [id number] Univers 08:45:00 09:33:[address] [facility] [place] 2022-05-02 2022-05-02 Office [facility] 1.2.840.114 [id number] Univers 08:45:00 09:00:00 Visit [facility] 350.1.13.10 it y of [place] 4.2.7.2.686 Claudio as JOANN?BLEA [id number] [place] bryantangelika PAUL [address] [place] [address] MEDICAL OFFICE [facility] 2022-05-02 2022-05-02 Outpatient [facility] [id number] Univers 08:45:00 08:45:00 [facility] 2022-04-25 2022-04-25 Orders Doctor CRANE 1.2.840.114 [id number] Univers 00:00:00 00:00:00 Only Unassigned, AVA 350.1.13.10 ity of [place] [facility] 4.2.7.2.686 Claudio as [phone] [facility] 009 Branch 2022-04-23 2022-04-23 Outpatient R MIAH [facility] [id number] Univers 13:00:00 13:00:00 PRICILLA ittristan [facility] 2022-03-13 2022-03-13 Outpatient R NAJVOT [facility] [id number] Univers 11:57:09 23:59:00 PRADIP ity [facility] 2022-03-13 2022-03-13 [facility] 1.2.840.114 [id number] Univers 11:57:09 23:59:00 Encounter Pradip SOLER 350.1.13.10 ity of [place].2.7.2.686 [place] [id number] [facility] 804 Rescue 2022-02-08 2022-02-08 Emergency X [facility] ERT [id number] Univers 18:45:00 21:46:[address] [facility] [place] [place] 2022-02-08 2022-02-08 Emergency [facility] 1.2.840.114 [id number] Univers 18:45:00 21:46:00 Evangelista [facility] 350.1.13.10 i ty of [facility] 4.2.7.2.686 [place] [id number] [facility] 084 Rescue 2022-02-08 2022-02-08 Nurse Nurse, Ang Db Urgent [facility] 1.2.840.114 [id number] Univers 18:15:00 18:35:00 Visit Lisa Marr [facility] 350.1.13.10 ity of [place] 4.2.7.2.686 Claudio as JOANN?BLEA [id number] [address] MEDICAL OFFICE BUILDING 2022-02-08 2022-02-08 Outpatient R JUSTA [facility] [id number] Univers 18:15:00 18:15:[address] [facility] [place] [place] 2022-02-08 2022-02-08 Outpatient R JUSTA, [facility] [id number] Univers 18:00:00 18:00:[address] [facility] [place] [place] 2022-01-17 2022-01-17 Outpatient R NAVJOT, [facility] [id number] Univers 00:00:00 00:00:00 [facility] 2022-01-09 2022-01-09 Outpatient R NAVJOT, [facility] [id number] Univers 00:00:00 00:00:00 [facility] 2021-12-04 2021-12-04 Office [facility] 1.2.669.106 [id number] Univers 13:15:00 14:09:10 Visit Pee L [facility] 350.1.13.10 it y of [facility] 4.2.7.2.686 Claudio as JOANN?BLEA [phone] [address] MEDICAL OFFICE BUILDING 2021-12-04 2021-12-04 Outpatient R RADIOLOGY [facility] RAD [id number] Univers 00:00:00 00:00:[address] [facility] [place] 2021-12-03 2021-12-03 Emergency [facility] ERT [id number] Univers 14:02:00 17:34:[address] [facility] [place] 2021-12-03 2021-12-03 Emergency [facility] 1.2.249.762 [id number] Univers 14:02:00 17:34:00 Zackary [place] 350.1.13.10 i ty of [place] 4.2.7.2.686 [place] [facility] [id number] [address] 2021-12-03 2021-12-03 Emergency X [facility] ERT [id number] Univers 14:02:00 17:34:[address] [facility] [place] 2021-11-19 2021-11-19 Telephone Santi [facility] 1.2.840.114 [id number] Univers 00:00:00 00:00:00 Pee Pagan BettingXpert 350.1.13.10 it y of [facility] 4.2.7.2.686 Claudio as JOANN?BLEA [phone] [place] natalee PAUL [address] [place] [address] MEDICAL OFFICE BUILDING 2021-11-18 2021-11-18 Outpatient R [facility] SOR [id number] Univers 06:51:00 11:10:00 PEE ity of [facility] 2021-11-18 2021-11-18 [facility] 1.2.840.114 [id number] Univers 06:51:00 11:10:00 Encounter Pee SOLER 350.1.13.10 ity of [facility] 4.2.7.2.686 [place] SURGICAL [id number] [facility] 071 Rescue 2021-11-18 2021-11-18 Surgery [facility] 1.2.814.269 [id number] Univers 08:30:00 09:46:00 Pee SOLER 350.1.13.10 i ty of [facility] 4.2.7.2.686 [place] SURGICAL [phone] [facility] 020 Rescue 2021-11-18 2021-11-18 Surgery [facility] 1.2.176.612 [id number] Univers 08:30:00 09:46:00 Pee SOLER 350.1.13.10 i ty of [facility] 4.2.7.2.686 [place] SURGICAL [id number] [facility] 020 Rescue 2021-11-18 2021-11-18 Anesthesia Alireza Ceja [facility] 1.2.840.11 [id number] Univers 08:04:00 08:55:00 Event Royce Turcios 350.1.13.10 ity of [facility] 4.2.7.2.686 [place] SURGICAL [id number] [facility] 020 Rescue 2021-11-18 2021-11-18 Orders Doctor CRANE 1.2.840.114 [id number] Univers 00:00:00 00:00:00 Only Unassigned, AVA 350.1.13.10 ity of [place] [facility] 4.2.7.2.686 Claudio as [phone] [address] 2021-11-15 2021-11-15 [facility] 1.2.840.114 [id number] Univers 08:13:40 23:59:00 Encounter Pee SOLER 350.1.13.10 ity of [facility] 4.2.7.2.686 [place] CAMPUS [id number] [facility] [address] [place] [address] 2021-11-15 2021-11-15 Out[facility] [id number] Univers 08:13:23 23:59:00 PEE alanis [facility] 2021-11-15 2021-11-15 [employer] Lizzie, Adc Lab Main [facility] 1.2.8 40.114 [id number] Univers 09:15:00 09:30:00 Visit Pee Hancock 350.1.13.10 ity of [facility] 4.2.7.2.686 [place] [facility] [id number] [place] natalee [address] 2021-11-06 2021-11-06 Telephone [facility] 1.2.840.114 [id number] Univers 00:00:00 00:00:00 Pee Pagan HEALTH 350.1.13.10 it y of [place] 4.2.7.2.686 Claudio as JOANN?BLEA [id number] Ky natalee [facility] [address] [facility] OFFICE [facility] 2021-11-04 2021-11-04 Prep For [facility] 1.2.840.114 [id number] Univers 00:00:00 00:00:00 Surgery Pee Pagan HEALTH 350.1.13.10 it y of [place] 4.2.7.2.686 Claudio as JOANN?BLEA [phone] Ky natalee [facility] [address] [facility] OFFICE [facility] 2021-10-31 2021-10-31 Outpatient [facility] [id number] Univers 08:25:00 23:59:00 PEE tristan [facility] 2021-10-31 2021-10-31 Office [facility] 1.2.835.620 [id number] Univers 08:15:00 09:27:22 Visit Pee Pagan HEALTH 350.1.13.10 it y of [place] 4.2.7.2.686 Claudio as JOANN?BLEA [phone] [place] natalee PAUL [address] [place] [address] MEDICAL OFFICE [facility] 2021-10-31 2021-10-31 Outpatient [facility] [id number] Univers 08:15:00 08:15:00 PEE alanis [facility] 2021-10-31 2021-10-31 Orders Doctor ROYCE 1.2.840.114 [id number] Univers 00:00:00 00:00:00 Only Unassigned, AVA 350.1.13.10 ity of [place] [facility] 4.2.7.2.686 Claudio as [phone] [address] 2021-10-24 2021-10-24 [facility] [id number] Univers 09:45:00 09:45:00 PEE alanis [facility] 2021-10-18 2021-10-18 Orders Doctor CRANE 1.2.840.114 [id number] Univers 00:00:00 00:00:00 Only Unassigned, AVA 350.1.13.10 ity of [place] [facility] 4.2.7.2.686 Claudio as [phone] [address] 2021-10-01 2021-10-01 Orders Doctor CRANE 1.2.840.114 [id number] Univers 00:00:00 00:00:00 Only Unassigned, AVA 350.1.13.10 ity of [place] [facility] 4.2.7.2.686 Claudio as [phone] [address] 2021-09-11 2021-09-11 Office LORENE Gupta [facility] 1.2.840.114 [id number] [place] 15:00:00 15:21:08 Visit Shinil SUGAR 350.1.13.58 [facility] 9.2.7.2.686 PLAZA 4 [id number] AND 4 WOMENS 2021-09-06 2021-09-06 Emergency Miah [facility] 1.2.037.127 [id number] Univers 10:43:00 12:44:00 Marilia SOLER 350.1.13.10 ity of [place] 4.2.7.2.686 [place] [facility] [phone] [address] 2021-09-06 2021-09-06 Outpatient [facility] ERT [id number] Univers 09:40:00 10:58:27 BRITTIN tristan [facility] 2021-09-06 2021-09-06 [facility]gent [facility] 1.2.840.114 [id number] Univers 09:40:00 10:00:00 Care [facility] 350.1.13.10 it y of [place] 4.2.7.2.686 Claudio as JOANN?BLEA [id number] [place] natalee [address] MEDICAL OFFICE BUILDING 2021-09-06 2021-09-06 Outpatient R RICHARD [facility] [id number] Univers 09:40:00 09:40:[address] [facility] [place] [place] 2021-09-06 2021-09-06 Orders Doctor ROYCE 1.2.840.114 [id number] Univers 00:00:00 00:00:00 Only Unassigned, AVA 350.1.13.10 ity of [place] [facility] 4.2.7.2.686 Claudio as [phone] [address] 2021-08-14 2021-08-14 Outpatient R JAMANIL [facility] [id number] Univers 10:00:00 10:00:[address] [facility] [place] 2021-08-07 2021-08-07 Emergency [facility] ERT [id number] Univers 10:39:00 11:30:[address] [facility] [place] 2021-08-07 2021-08-07 Emergency [facility] 1.2.759.161 [id number] Univers 10:39:00 11:30:00 Ricardo S [place] 350.1.13.10 i ty of [place] 4.2.7.2.686 [place] [phone] [facility] 084 Rescue 2021-06-25 2021-07-25 OP Therapy nullFlavo SMR [id number] Memoria 16:00:00 05:59:00 Patients r Luna 00 l [facility] 2021-06-25 2021-07-25 OP Therapy nullFlavo SMR [id number] Memoria 16:00:00 05:59:00 Patients r Luna 00 l Ahmet Shea 2021-06-25 2021-07-24 Outpatient Euceda-Cardoso 2.16.840. 2.16.840. 1. [id number] 11:00:00 23:59:00 Josh scherer [id number]. [id number] 5.57 2021-06-13 2021-06-13 Outpatient R EMANUEL, [facility] [id number] [facility] 08:00:00 08:00:00 ALISTAIR alanis [facility] 2021-06-12 2021-06-12 EXT [facility] OP Tammy EXT MSRDP 1.2.840.1 14 [id number] [place] 00:00:00 00:00:00 Josh scherer 350.1.13.58 Health 9.2.7.2.686 [id number] 0 2021-06-12 2021-06-12 EXT [facility] OP Tammy EXT MSRDP 1.2.840.1 14 [id number] [place] 00:00:00 00:00:00 Josh scherer 350.1.13.58 Health 9.2.7.2.686 [id number] 0 2021-06-10 2021-06-10 Emergency [facility] 1.2.911.643 [id number] [facility] 14:17:00 16:42:00 Kendrick Soler 350.1.13.10 i [facility] 4.2.7.2.686 [facility] [phone] [place] [address] Branch 2021-06-07 2021-06-07 Outpatient Christine DE LEON, [facility] [id number] [facility] 10:00:00 10:00:00 BRITTANEY alanis [facility] 2021-06-05 2021-06-05 Office EucedaRadha [facility] 1.2.840.114 [id number] [place] 08:01:02 09:18:56 Visit Josh scherer 350.1.13.58 Health MEDICAL 9.2.7.2.686 PLAZA 7 [id number] 7 2021-05-18 2021-05-18 Emergency Glendy, [facility] 1.2.168.732 [id number] [facility] 10:38:00 13:19:00 Ricardo Soler 350.1.13.10 i ty of [place] 4.2.7.2.686 [place] [id number] [facility] 084 Branch 2021-05-18 2021-05-18 Orders Doctor ROYCE 1.2.840.114 [id number] Univers 00:00:00 00:00:00 Only Unassigned, AVA 350.1.13.10 ity of [facility] 4.2.7.2.686 Claudio [phone] [facility] 009 Branch 2021-04-11 2021-04-11 Outpatient TAMMY [facility] [id number] [place] 09:44:24 09:44:24 JOSH Scherer [place] [facility] 2021-03-26 2021-03-26 Orders LORENE Siu [facility] 1.2.840.114 [id number] [place] 00:00:00 00:00:00 Only Armond LUNA 350.1.13.58 H [facility] MEDICAL 9.2.7.2.686 PLAZA 6 [id number] 7 2021-03-26 2021-03-26 Orders LORENE Siu [facility] 1.2.840.114 [id number] 00:00:00 00:00:00 Only Armond LUNA 350.1.13.58 MEDICAL 9.2.7.2.686 PLAZA 4 [id number] 7 2021-03-19 2021-03-20 Outpt Diag nullFlavo [facility] [id number] Memoria 12:30:00 04:59:00 Services r Outpatient 00 l Imaging Solomon [place] 2021-03-19 2021-03-20 Outpt Diag nullFlavo [facility] [id number] Memoria 12:30:00 04:59:00 Services r Outpatient 00 l Imaging Solomon [place] 2021-03-19 2021-03-19 Outpatient Tammy MHOIP MHOIP [id number] 07:30:00 23:59:00 Josh scherer 00 2021-03-18 2021-03-18 EXT [facility] OP Tammy EXT MSRDP 1.2.840.1 14 [id number] [place] 00:00:00 00:00:00 e, Josh FALL 350.1.13.58 Health 9.2.7.2.686 [id number] 0 2021-02-27 2021-02-27 Office Tammy [facility] [id number] 12 [id number] [place] 08:29:48 10:00:26 Visit e, Josh CARRASCO [id number] Health MEDICAL [id number] PLA[place] 2 [id number] 2021-02-27 2021-02-27 Office Tammy [facility] 1.2.840.114 12 [id number] 08:29:48 10:00:26 Visit e, Josh CARRASCO [id number] MEDICAL [id number] PLA[address] 2 [id number] 2021-02-25 2021-02-25 Outpatient [facility] [id number] [place] 10:35:57 10:35:57 Health 2020-11-13 2020-11-13 [facility] Royce Rivers 1.2.840.1 [id number] 21 [id number] Methodi 08:27:59 23:59:00 Encounter [place] [id number] 3.430.2.7 Hospit a .[id number] l .8 2020-11-13 2020-11-13 Travel 1.2.840.1 1.2.793.909 [id number] Methodi 00:00:00 00:00:[address] 3.430.2.7 0.2.7.3.698 Ho spita .3.372231 084.8 l .8 2020-11-13 2020-11-13 Transcribe Royce Rivers 1.2.840.1 [id number] Methodi 00:00:00 00:00:00 Orders Maryann 47930.1.[address] 3.430.2.7 Hospit a .3.952586 l .8 2020-11-09 2020-11-09 Orders Doctor ROYCE 1.2.840.114 [id number] 00:00:00 00:00:00 Only Unassigned, AVA 350.1.13.10 [place] [facility] 4.2.7.2.686 [id number] [id number] 2020-10-05 2020-10-05 Telephone Miah [facility] 1.2.908.282 [id number] 00:00:00 00:00:00 [facility] 350.1.13.10 Surgical 4.2.7.2.686 Specialti [id number] es 198 [place] 2020-09-27 2020-09-27 [facility] 1.2.840.114 [id number] 08:21:38 23:59:00 Encounter Pee Pagan [employer] 350.1.13.10 Surgical 4.2.7.2.686 Specialti [id number] es 809 [place] 2020-09-27 2020-09-27 [facility] 1.2.012.503 [id number] 07:50:24 08:32:23 Visit Pee Pagan [employer] 350.1.13.10 Surgical 4.2.7.2.686 Specialti [id number] es 198 [place] 2020-09-27 2020-09-27 [facility] [id number] Univers 08:00:00 08:00:00 [facility] 2020-09-24 2020-09-24 Orders Doctor CRANE 1.2.840.114 [id number] 00:00:00 00:00:00 Only Unassigned, AVA 350.1.13.10 [place] [facility] 4.2.7.2.686 [id number] 2020-08-23 2020-08-23 [facility] [id number] Univers 08:45:00 08:45:00 [facility] 2020-08-22 2020-08-22 [facility] [id number] Univers 13:15:00 13:15:00 [facility] 2020-07-25 2020-07-25 [facility] [id number] Univers 14:00:00 14:00:00 [facility] 2020-07-23 2020-07-23 Ambulatory nullFlavo [facility] [id number] Memoria 20:00:00 20:00:00 Pre-Reg r Cardiology 05 l Reema kaur 2020-07-23 2020-07-23 Ambulatory nullFlavo [facility] [id number] Memoria 20:00:00 20:00:00 Pre-Reg r Cardiology 05 l Reema kaur 2020-07-23 2020-07-23 Outpatient Maniar, [facility] [id number] 14:00:00 14:00:00 Gilmer H 05 2020-07-17 2020-07-17 Outpatient Christine DOOLEY [facility] [id number] Univers 11:15:00 11:15:[address] [facility] [place] [place] 2020-07-06 2020-07-06 [facility] [id number] Univers 08:45:00 08:45:00 [facility] 2020-06-29 2020-06-29 Outpatient R HANCOCK, [facility] [id number] Univers 08:15:00 08:15:00 [facility] 2020-06-22 2020-06-22 Outpatient R SANTI [facility] [id number] Univers 10:30:00 10:30:00 [facility] 2020-06-20 2020-06-20 Outpatient Christine CRISTOBALHANCOCK, [facility] [id number] Univers 14:45:00 14:45:00 [facility] 2020-06-07 2020-06-07 Outpatient R SANTI [facility] [id number] Univers 09:15:00 09:15:00 [facility] 2020-05-30 2020-05-30 [facility] [id number] Univers 13:00:00 13:00:00 [facility] 2020-05-18 2020-05-18 [facility] [id number] Univers 10:45:00 10:45:00 [facility] 2020-05-16 2020-05-16 Outpatient MHIE [facility] [id number] Memoria 13:30:00 13:30:00 05 l Solomon 2020-05-09 2020-05-09 Outpatient Christine HANCOCK [facility] [id number] Univers 14:15:00 14:15:00 [facility] 2020-05-08 2020-05-08 Outpatient Christine HANCOCK [facility] [id number] Univers 12:00:00 12:00:00 [facility] 2020-05-03 2020-05-03 Outpatient Christine HANCOCK [facility] [id number] Univers 08:00:00 08:00:00 [facility] 2020-04-12 2020-04-12 Outpatient Christine HANCOCK [facility] [id number] Univers 10:45:00 10:45:00 [facility] 2020-04-10 2020-04-10 Outpatient Christine HANCOCK [facility] [id number] Univers 09:00:00 09:00:00 [facility] 2020-02-29 2020-02-29 Outpatient Christine HANCOCK [facility] [id number] Univers 13:45:00 13:45:00 [facility] 2020-02-27 2020-02-27 Outpatient Christine HANCOCK [facility] [id number] Univers 09:42:49 12:45:00 [facility] 2020-02-13 2020-02-13 Outpatient Christine HANCOCK [facility] [id number] Univers 14:06:46 23:59:00 [facility] 2019-12-29 2019-12-29 Out[facility] [id number] Common 09:49:00 09:49:00 t [facility] [address] [facility] 2019-12-27 2019-12-27 Out[facility] [id number] Common 09:02:00 09:02:00 t [facility] [address] [facility] 2019-12-23 2019-12-25 Outside nullFlavo MNA [id number] Memoria 20:41:52 04:59:59 Medical r Neurology 02 l Records [place] 2019-12-23 2019-12-25 Outside nullFlavo NHA [id number] Memoria 20:41:52 04:59:59 Medical r Neurology 02 l [place] 2019-12-23 2019-12-24 Outpatient MISCHER [facility] [id number] 15:41:52 23:59:59 02 2019-12-14 2019-12-14 Out[facility] [id number] Common 14:36:00 14:36:00 [facility] 2019-11-18 2019-11-21 Inpatient nullFlavo [facility] [id number] Memoria 11:22:00 18:46:00 r Solomon 00 l [facility] 2019-11-18 2019-11-21 Inpatient nullFlavo [facility] [id number] Memoria 11:22:00 18:46:00 r Solomon 00 l [facility] 2019-11-18 2019-11-21 Outpatient Chika, [facility] [id number] 06:22:00 13:46:00 Sadia I 00 2019-11-18 2019-11-21 Inpatient CHIKA, [facility] [id number] [facility] 06:22:00 13:46:00 SADIA 2019-11-14 2019-11-15 Outpatient nullFlavo [facility] [id number] Memoria 18:00:00 04:59:59 r Cardiology 03 l [facility] 2019-11-14 2019-11-15 Outpatient nullFlavo [facility] [id number] Memoria 18:00:00 04:59:59 r Cardiology 03 l [facility] 2019-11-14 2019-11-15 Outpatient nullFlavo [facility] [id number] Memoria 16:00:00 04:59:59 r Cardiology 04 l [facility] 2019-11-14 2019-11-15 Outpatient nullFlavo [facility] [id number] Memoria 16:00:00 04:59:59 r Cardiology 04 l [facility] 2019-11-14 2019-11-14 Outpatient Maniar, [facility] [id number] 13:00:00 23:59:59 Gil[place] H 03 2019-11-14 2019-11-14 Outpatient Maniar, [facility] [id number] 11:00:00 23:59:59 [facility] H 04 2019-11-14 2019-11-14 Outpatient MHIE MHIE [id number] Memoria 13:00:00 13:00:00 03 elle Carbajal 2019-11-14 2019-11-14 Outpatient MHIE MHIE [id number] Memoria 11:00:00 11:00:00 04 elle Carbajal 2019-11-08 2019-11-08 Out[facility] [id number] Common 09:58:00 09:58:[address] [facility] 2019-11-08 2019-11-08 Out[facility] [id number] Common 09:56:00 09:56:[address] [facility] 2019-10-24 2019-10-24 Out[facility] [id number] Common 21:19:00 21:19:[address] [facility] 2019-10-24 2019-10-24 Outpatient [facility] [id number] Common 21:06:00 21:06:[address] [facility] 2019-10-24 2019-10-24 Outpatient [facility] [id number] Common 09:30:00 09:30:[address] [facility] 2019-09-13 2019-09-13 Outpatient [facility] [id number] Common 13:20:00 13:20:[address] [facility] 2019-08-26 2019-08-26 Out[facility] [id number] Common 08:45:00 08:45:[address] [facility] 2019-08-22 2019-08-22 Outpatient [facility] [id number] Common 01:08:00 01:08:[address] [facility] 2019-08-17 2019-08-17 Out[facility] [id number] Common 09:51:00 09:51:[address] [facility] 2019-08-16 2019-08-16 Outpatient [facility] [id number] Common 13:20:00 13:20:[address] [facility] 2019-07-21 2019-07-21 Outpatient [facility] [id number] Common 14:47:00 14:47:[address] [facility] 2019-07-15 2019-07-15 Outpatient [facility] [id number] Common 10:09:00 10:09:[address] [facility] 2019-07-15 2019-07-15 Outpatient [facility] [id number] Common 08:40:00 08:40:[address] [facility] 2019-07-11 2019-07-11 Outpatient [facility] [id number] Common 13:46:00 13:46:[address] [facility] 2019-06-28 2019-06-28 Outpatient [facility] [id number] Common 02:54:00 02:54:[address] [facility] 2019-06-24 2019-06-24 Outpatient [facility] [id number] Common 09:00:00 09:00:[address] [facility] 2019-06-23 2019-06-23 Outpatient [facility] [id number] Common 15:00:00 15:00:[address] [facility] 2019-05-30 2019-05-30 Outpatient [facility] [id number] Common 15:13:00 15:13:[address] [facility] 2019-05-05 2019-05-05 Outpatient [facility] [id number] Common 15:33:00 15:33:[address] [facility] 2019-04-28 2019-04-28 Outpatient [facility] [id number] Common 09:02:00 09:02:[address] [facility] 2019-04-26 2019-04-26 Outpatient [facility] [id number] Common 13:43:00 13:43:[address] [facility] 2019-04-25 2019-04-25 Outpatient [facility] [id number] Common 22:56:00 22:56:[address] [facility] 2019-04-24 2019-04-24 Outpatient [facility] [id number] Common 11:41:00 11:41:[address] [facility] 2019-04-15 2019-04-15 Outpatient [facility] [id number] Common 09:07:00 09:07:[address] [facility] 2019-04-15 2019-04-15 Outpatient [facility] [id number] Common 08:00:00 08:00:[address] [facility] 2019-03-24 2019-03-24 Outpatient zzzAmy gerryLuisana [id number] Common 09:27:00 09:27:00 Donte Kent Sp yaron DO DO [facility] 2019-03-16 2019-03-16 Outpatient [facility] [id number] Common 09:16:00 09:16:[address] [facility] 2019-02-22 2019-02-22 Outpatient [facility] [id number] Common 09:03:00 09:03:[address] [facility] 2019-02-18 2019-02-18 Outpatient [facility] [id number] Common 18:38:00 18:38:[address] [facility] 2019-02-18 2019-02-18 Outpatient [facility] [id number] Common 15:06:00 15:06:00 t [facility] [address] [facility] 2019-02-16 2019-02-16 Outpatient Reynaldo [facility] [id number] Common 16:06:00 16:06:[address] [facility] [address] [facility] 2019-02-15 2019-02-15 Outpatient Reynaldo [facility] [id number] Common 15:20:00 15:20:00 t [facility] [address] [facility] 2018-04-28 2018-04-30 Phone nullFlavo MNA [id number] Memoria 14:28:00 04:59:59 Message r Neurosurger 01 tristan Thakur [facility] 2018-04-28 2018-04-30 Phone nullFlavo MNA [id number] Memoria 14:28:00 04:59:59 Message r Neurosurger 01 [facility] 2018-04-28 2018-04-29 Outpatient MHMISCHER MHMISCHER [id number] 09:28:00 23:59:59 2018-04-07 2018-04-09 Phone nullFlavo [facility] [id number] Memoria 19:39:00 04:59:59 Message r Clinic [facility] 00 elle Solomon 2018-04-07 2018-04-09 Phone nullFlavo [facility] [id number] Memoria 19:39:00 04:59:59 Message r Clinic [facility] 00 elle Carbajal 2018-04-07 2018-04-08 Outpatient MHMISCHER MHMISCHER [id number] 14:39:00 23:59:59 2018-02-02 2018-02-02 Outpatient MHIE MHIE [id number] Memoria 10:45:00 10:45:00 02 elle Carbajal 2018-02-02 2018-02-02 Outpatient MHIE MHIE [id number] Memoria 10:45:00 10:45:00 02 elle Carbajal 2017-11-30 2017-11-30 Outpatient MHIE MHIE [id number] Memoria 13:00:00 13:00:00 elle Carbajal 2017-11-30 2017-11-30 Outpatient MHIE MHIE [id number] Memoria 13:00:00 13:00:00 01 elle Carbajal 2017-11-12 2017-11-12 Outpatient GUILHERME VANEGAS [id number] [facility] 11:30:00 11:30:00 00 elle Carbajal 2017-11-12 2017-11-12 Outpatient GUILHERME VANEGAS [id number] [facility] 11:30:00 11:30:00 00 elle Carbajal Results Test Description Test Time Test Comments Results Result Comments Source BASIC METABOLIC PANEL (NA, K, CL, CO2, GLUCOSE, BUN, 2022-06 18:33:12 CREATININE, CA) Test Item Value Reference Range Interpretation Comme nts NA (test code = 6351727522) 137 mmol/L 135-145 K (test code = 5272910516) 4.6 mmol/L 3.5-5 CL (test code = 9132846478) 102 mmol/L 98-108 CO2 TOTAL (test code = 5301614441) 29 mmol/L 23-31 AGAP (test code = 9641326963) 2-16 BUN (test code = 7005491807) 17 mg/dL 7-23 GLUCOSE (test code = 3945706717) 180 mg/dL 70-110 H CREATININE (test code = 0.49 mg/dL 0.5-1.04 L 3753778479) CALCIUM (test code = 2473875970) 9.7 mg/dL 8.6-10.6 eGFR (test code = 0937396350) mL/min/1.73m2 ARIANA (test code = ARIANA) Association [...] tests). Lab Interpretation (test code = Abnormal 19300-4) [facility] 18[facility]33:12 Test Item Value Reference Range Interpretation Comments MAGNESIUM (test code = 2096353975) 1.8 mg/dL 1.7-2.4 Lab Interpretation (test code = Normal 13016-4) [facility] MVSATS6779-09-03 18:32:31 Test Item Value Reference Range Interpretation Comments CK (test code = 2888360642) 89 U/L 33-194 Lab Interpretation (test code = Normal 63726-1) [facility]/Asp: L greater trochanteric bursa 2021-02-27 14:41:46Josh [...] to verify the correct patient, procedure, equipment, ground support equipment mechanic and site/side marked as required. Patient was prepped and draped in the usual sterile fashion.[facility]- XR HIP W/PEL UNI 2+V [id number] 10:05:00 [facility] 1965 Sex: F PatientName: ARI GODOY Unit No: [id number] EXAMS: CPT CODE: [id number] XR HIP W/PEL UNI 2+[place] [address] AP pelvis with frog-leg view left hip LOCATION: T18 INDICATION: Pain Postsurgical changes L5-S1. Bonyalignment is normal. No fracture, dislocation , osteolytic or osteoblastic lesions are identified. Soft tissues unremarkable. Probable chronic irregularity greater trochanter left hip. IMPRESSION: No acute findings. at 1005 Reportedand signed by: Royce Morse MD CC: Francisco Andrea MD Technologist: Archana Marley, RT(R) Transcrpt Date/Tm/Trnsp: 12/14/2020 (1005) RanjithJMATTHEW Orig Print D/T: S: 12/14/2020 (1009) [facility] NAME: ARI GODOY [address] [place] [address] PHYS: [place] [address] : 1965 AGE: 55 SEX: F LOC: ZAdryanZRAD PHONE #: [phone] EXAM DATE: 12/14/2020 STATUS: REG CLI FAX #: [phone] RADIOLOGY NO: PAGE 1 Signed ReportXR Lumbar Spine Ap Lateral Flexion And Ozcklzuwd6415-91-08 18:32:20EXAMINATION: Lateral neutral, flexion and extension views; [...] IMPRESSION: Relatively stable postoperative and degenerative changes. [facility]-AON5715901Mg Interface, Radiology Results 11/13/2020 12:35 PM CST [...] right upper quadrant.IMPRESSION:Relatively stable postoperative and degenerative changes.[facility]-KHV0841334Cmehhgmfs HospitalCHEM GUGSD2255-70-87 09:56:00 Test Item Value Reference Range Interpretation Comments Glucose Lvl (test code = Glucose Lvl) 215 70-99 [facility] [id number] 09:56:00 Test Item Value Reference Range Interpretation Comments BUN (test code = BUN) 15 7-22 [facility]2020-03-16 09:56:00 Test Item Value Reference Range Interpretation Comments Creatinine Lvl (test code = Creatinine 0.50 0.50-1.40 Lvl) [place]300-03-16 09:56:00 Test Item Value Reference Range Interpretation Comments Sodium Lvl (test code = Sodium Lvl) 137 135-145 [place] [address]-03-16 09:56:00 Test Item Value Reference Range Interpretation Comments Potassium Lvl (test code = Potassium 4.5 3.5-5.1 Lvl) [place] 548300-03-16 09:56:00 Test Item Value Reference Range Interpretation Comments Chloride Lvl (test code = Chloride Lvl) 102 95-109 [place] [address]-03-16 09:56:00 Test Item Value Reference Range Interpretation Comments CO2 (test code = CO2) 30 24-32 [place] [address]-03-16 09:56:00 Test Item Value Reference Range Interpretation Comments Calcium Lvl (test code = Calcium Lvl) 9.3 8.5-10.5 [place] [address]-03-16 09:56:00 Test Item Value Reference Range Interpretation Comments AGAP (test code = AGAP) 9.5 10.0-20.0 [place] [address]-03-16 09:56:00 Test Item Value Reference Range Interpretation Comments eGFR (test code = eGFR) 125 [place] 357640-03-16 09:56:00 Test Item Value Reference Range Interpretation Comments Segs (test code = Segs) 71.7 45.0-75.0 [place] [address]-03-16 09:56:00 Test Item Value Reference Range Interpretation Comments Lymphocytes (test code = Lymphocytes) 17.6 20.0-40.0 [place] [address]-03-16 09:56:00 Test Item Value Reference Range Interpretation Comments Monocytes (test code = Monocytes) 8.4 2.0-12.0 [place] [address]-03-16 09:56:00 Test Item Value Reference Range Interpretation Comments Eosinophils (test code = 1.7 See_Comment [A utomated message] The Eosinophils) system which ge nerated this result tra nsmitted reference range : <=4.0. The reference r sharon was not used to int erpret this result as normal/abnormal . [place] 357640-03-16 09:56:00 Test Item Value Reference Range Interpretation Comments Basophils (test code = 0.6 See_Comment [Aut omated message] The Basophils) system which ge nerated this result tra nsmitted reference range : <=1.0. The reference r sharon was not used to int erpret this result as normal/abnormal . [place] 357640-03-16 09:56:00 Test Item Value Reference Range Interpretation Comments Neutrophils # (test code = Neutrophils 8.2 1.5-8.1 #) [place] 357640-03-16 09:56:00 Test Item Value Reference Range Interpretation Comments Lymphocytes # (test code = Lymphocytes 2.0 1.0-5.5 #) [place] 357640-03-16 09:56:00 Test Item Value Reference Range Interpretation Comments Monocytes # (test code 1.0 See_Comment [Aut omated message] The = Monocytes #) system which generated this result tra nsmitted reference range : <=0.8. The reference r sharon was not used to int erpret this result as normal/abnormal . [place] 357640-03-16 09:56:00 Test Item Value Reference Range Interpretation Comments Eosinophils # (test code 0.2 See_Comment [A utomated message] The = Eosinophils #) system whic h generated this result tra nsmitted reference range : <=0.5. The reference r sharon was not used to int erpret this result as normal/abnormal . [place] 357640-03-16 09:56:00 Test Item Value Reference Range Interpretation Comments Basophils # (test code 0.1 See_Comment [Aut omated message] The = Basophils #) system which generated this result tra nsmitted reference range : <=0.2. The reference r sharon was not used to int erpret this result as normal/abnormal . [place] 357640-03-16 09:56:00 Test Item Value Reference Range Interpretation Comments WBC (test code = WBC) 11.5 3.7-10.4 [place] 357640-03-16 09:56:00 Test Item Value Reference Range Interpretation Comments RBC (test code = RBC) 4.12 4.20-5.40 [place] [address]-03-16 09:56:00 Test Item Value Reference Range Interpretation Comments Hgb (test code = Hgb) 13.0 12.0-16.0 [place] [address]-03-16 09:56:00 Test Item Value Reference Range Interpretation Comments Hct (test code = Hct) 38.1 36.0-48.0 [place] 357640-03-16 09:56:00 Test Item Value Reference Range Interpretation Comments MCV (test code = MCV) 92.5 80.0-98.0 [place] [address]-03-16 09:56:00 Test Item Value Reference Range Interpretation Comments MCH (test code = MCH) 31.6 pg 27.0-31.0 [place] [address]-03-16 09:56:00 Test Item Value Reference Range Interpretation Comments MCHC (test code = MCHC) 34.2 32.0-36.0 [place] 357640-03-16 09:56:00 Test Item Value Reference Range Interpretation Comments RDW (test code = RDW) 13.3 11.5-14.5 [place] [address]-03-16 09:56:00 Test Item Value Reference Range Interpretation Comments Platelet (test code = Platelet) 260 133-450 [place] [address]-03-16 09:56:00 Test Item Value Reference Range Interpretation Comments MPV (test code = MPV) 8.0 7.4-10.4 [place] 548300-03-16 09:56:00 Test Item Value Reference Range Interpretation Comments Glucose Lvl (test code = Glucose Lvl) 215 70-99 [place] 548300-03-16 09:56:00 Test Item Value Reference Range Interpretation Comments BUN (test code = BUN) 15 7-22 [place] [address]-03-16 09:56:00 Test Item Value Reference Range Interpretation Comments Creatinine Lvl (test code = Creatinine 0.50 0.50-1.40 Lvl) [place] 548300-03-16 09:56:00 Test Item Value Reference Range Interpretation Comments Sodium Lvl (test code = Sodium Lvl) 137 135-145 [place] [address]-03-16 09:56:00 Test Item Value Reference Range Interpretation Comments Potassium Lvl (test code = Potassium 4.5 3.5-5.1 Lvl) [place] [address]-03-16 09:56:00 Test Item Value Reference Range Interpretation Comments Chloride Lvl (test code = Chloride Lvl) 102 95-109 [place] [address]-03-16 09:56:00 Test Item Value Reference Range Interpretation Comments CO2 (test code = CO2) 30 24-32 [place] [address]-03-16 09:56:00 Test Item Value Reference Range Interpretation Comments Calcium Lvl (test code = Calcium Lvl) 9.3 8.5-10.5 [place] [address]-03-16 09:56:00 Test Item Value Reference Range Interpretation Comments AGAP (test code = AGAP) 9.5 10.0-20.0 [place] [address]-03-16 09:56:00 Test Item Value Reference Range Interpretation Comments eGFR (test code = eGFR) 125 [place] 357640-03-16 09:56:00 Test Item Value Reference Range Interpretation Comments Segs (test code = Segs) 71.7 45.0-75.0 [place] [address]-03-16 09:56:00 Test Item Value Reference Range Interpretation Comments Lymphocytes (test code = Lymphocytes) 17.6 20.0-40.0 [place] [address]-03-16 09:56:00 Test Item Value Reference Range Interpretation Comments Monocytes (test code = Monocytes) 8.4 2.0-12.0 [place] [address]-03-16 09:56:00 Test Item Value Reference Range Interpretation Comments Eosinophils (test code = 1.7 See_Comment [A utomated message] The Eosinophils) system which ge nerated this result tra nsmitted reference range : <=4.0. The reference r sharon was not used to int erpret this result as normal/abnormal . [place] 357640-03-16 09:56:00 Test Item Value Reference Range Interpretation Comments Basophils (test code = 0.6 See_Comment [Aut omated message] The Basophils) system which ge nerated this result tra nsmitted reference range : <=1.0. The reference r sharon was not used to int erpret this result as normal/abnormal . [place] 357640-03-16 09:56:00 Test Item Value Reference Range Interpretation Comments Neutrophils # (test code = Neutrophils 8.2 1.5-8.1 #) [facility] 09:56:00 Test Item Value Reference Range Interpretation Comments Lymphocytes # (test code = Lymphocytes 2.0 1.0-5.5 #) [facility]IMWWMCU9642-14-32 09:56:00 Test Item Value Reference Range Interpretation Comments Monocytes # (test code 1.0 See_Comment [Aut omated message] The = Monocytes #) system which generated this result tra nsmitted reference range : <=0.8. The reference r sharon was not used to int erpret this result as normal/abnormal . [facility]LuzkfvvALDOITOGQX8937-79-92 09:56:00 Test Item Value Reference Range Interpretation Comments Eosinophils # (test code 0.2 See_Comment [A utomated message] The = Eosinophils #) system whic h generated this result tra nsmitted reference range : <=0.5. The reference r sharon was not used to int erpret this result as normal/abnormal . [facility] HospitalOeneswhWPEREHXILK9027-63-18 09:56:00 Test Item Value Reference Range Interpretation Comments Basophils # (test code 0.1 See_Comment [Aut omated message] The = Basophils #) system which generated this result tra nsmitted reference range : <=0.2. The reference r sahron was not used to int erpret this result as normal/abnormal . [facility] HospitalDxwnmawDZJVADQYFT3128-28-88 09:56:00 Test Item Value Reference Range Interpretation Comments WBC (test code = WBC) 11.5 3.7-10.4 [place]640-03-16 09:56:00 Test Item Value Reference Range Interpretation Comments RBC (test code = RBC) 4.12 4.20-5.40 [place] [address]-03-16 09:56:00 Test Item Value Reference Range Interpretation Comments Hgb (test code = Hgb) 13.0 12.0-16.0 [place] [address]-03-16 09:56:00 Test Item Value Reference Range Interpretation Comments Hct (test code = Hct) 38.1 36.0-48.0 [place] [address]-03-16 09:56:00 Test Item Value Reference Range Interpretation Comments MCV (test code = MCV) 92.5 80.0-98.0 [place] [address]-03-16 09:56:00 Test Item Value Reference Range Interpretation Comments MCH (test code = MCH) 31.6 pg 27.0-31.0 [place] [address]-03-16 09:56:00 Test Item Value Reference Range Interpretation Comments MCHC (test code = MCHC) 34.2 32.0-36.0 [place] [address]-03-16 09:56:00 Test Item Value Reference Range Interpretation Comments RDW (test code = RDW) 13.3 11.5-14.5 [place] [address]-03-16 09:56:00 Test Item Value Reference Range Interpretation Comments Platelet (test code = Platelet) 260 133-450 [place] [address]-03-16 09:56:00 Test Item Value Reference Range Interpretation Comments MPV (test code = MPV) 8.0 7.4-10.4 [place] [address]-03-16 09:56:00 Test Item Value Reference Range Interpretation Comments Glucose Lvl (test code = Glucose Lvl) 215 70-99 [place] [address]-03-16 09:56:00 Test Item Value Reference Range Interpretation Comments BUN (test code = BUN) 15 7-22 [place] [address]-03-16 09:56:00 Test Item Value Reference Range Interpretation Comments Creatinine Lvl (test code = Creatinine 0.50 0.50-1.40 Lvl) [place] 548300-03-16 09:56:00 Test Item Value Reference Range Interpretation Comments Sodium Lvl (test code = Sodium Lvl) 137 135-145 [place] [address]-03-16 09:56:00 Test Item Value Reference Range Interpretation Comments Potassium Lvl (test code = Potassium 4.5 3.5-5.1 Lvl) [place] [address]-03-16 09:56:00 Test Item Value Reference Range Interpretation Comments Chloride Lvl (test code = Chloride Lvl) 102 95-109 [place] [address]-03-16 09:56:00 Test Item Value Reference Range Interpretation Comments CO2 (test code = CO2) 30 24-32 [place] [address]-03-16 09:56:00 Test Item Value Reference Range Interpretation Comments Calcium Lvl (test code = Calcium Lvl) 9.3 8.5-10.5 [place] 548300-03-16 09:56:00 Test Item Value Reference Range Interpretation Comments AGAP (test code = AGAP) 9.5 10.0-20.0 [place] [address]-03-16 09:56:00 Test Item Value Reference Range Interpretation Comments eGFR (test code = eGFR) 125 [facility] HospitalZrjcwljQZQZAFBMNR2362-71-04 09:56:00 Test Item Value Reference Range Interpretation Comments Segs (test code = Segs) 71.7 45.0-75.0 [place] [address]-03-16 09:56:00 Test Item Value Reference Range Interpretation Comments Lymphocytes (test code = Lymphocytes) 17.6 20.0-40.0 [place] [address]-03-16 09:56:00 Test Item Value Reference Range Interpretation Comments Monocytes (test code = Monocytes) 8.4 2.0-12.0 [place] [address]-03-16 09:56:00 Test Item Value Reference Range Interpretation Comments Eosinophils (test code = 1.7 See_Comment [A utomated message] The Eosinophils) system which ge nerated this result tra nsmitted reference range : <=4.0. The reference r sharon was not used to int erpret this result as normal/abnormal . [place] [address]-03-16 09:56:00 Test Item Value Reference Range Interpretation Comments Basophils (test code = 0.6 See_Comment [Aut omated message] The Basophils) system which ge nerated this result tra nsmitted reference range : <=1.0. The reference r sharon was not used to int erpret this result as normal/abnormal . [place] [address]-03-16 09:56:00 Test Item Value Reference Range Interpretation Comments Neutrophils # (test code = Neutrophils 8.2 1.5-8.1 #) [place] [address]-03-16 09:56:00 Test Item Value Reference Range Interpretation Comments Lymphocytes # (test code = Lymphocytes 2.0 1.0-5.5 #) [place] [address]-03-16 09:56:00 Test Item Value Reference Range Interpretation Comments Monocytes # (test code 1.0 See_Comment [Aut omated message] The = Monocytes #) system which generated this result tra nsmitted reference range : <=0.8. The reference r sharon was not used to int erpret this result as normal/abnormal . [facility] HospitalFpaufysEXAEQXTPTX9695-82-45 09:56:00 Test Item Value Reference Range Interpretation Comments Eosinophils # (test code 0.2 See_Comment [A utomated message] The = Eosinophils #) system whic h generated this result tra nsmitted reference range : <=0.5. The reference r sharon was not used to int erpret this result as normal/abnormal . [place] 357640-03-16 09:56:00 Test Item Value Reference Range Interpretation Comments Basophils # (test code 0.1 See_Comment [Aut omated message] The = Basophils #) system which generated this result tra nsmitted reference range : <=0.2. The reference r sharon was not used to int erpret this result as normal/abnormal . [facility] HospitalKdcfvgmGGZVIUPPBQ1340-15-99 09:56:00 Test Item Value Reference Range Interpretation Comments WBC (test code = WBC) 11.5 3.7-10.4 [place] [address]-03-16 09:56:00 Test Item Value Reference Range Interpretation Comments RBC (test code = RBC) 4.12 4.20-5.40 [place] [address]-03-16 09:56:00 Test Item Value Reference Range Interpretation Comments Hgb (test code = Hgb) 13.0 12.0-16.0 [place] [address]-03-16 09:56:00 Test Item Value Reference Range Interpretation Comments Hct (test code = Hct) 38.1 36.0-48.0 [place] [address]-03-16 09:56:00 Test Item Value Reference Range Interpretation Comments MCV (test code = MCV) 92.5 80.0-98.0 [place] 357640-03-16 09:56:00 Test Item Value Reference Range Interpretation Comments MCH (test code = MCH) 31.6 pg 27.0-31.0 [place] [address]-03-16 09:56:00 Test Item Value Reference Range Interpretation Comments MCHC (test code = MCHC) 34.2 32.0-36.0 [place] [address]-03-16 09:56:00 Test Item Value Reference Range Interpretation Comments RDW (test code = RDW) 13.3 11.5-14.5 [place] [address]-03-16 09:56:00 Test Item Value Reference Range Interpretation Comments Platelet (test code = Platelet) 260 133-450 [place] 357640-03-16 09:56:00 Test Item Value Reference Range Interpretation Comments MPV (test code = MPV) 8.0 7.4-10.4 [place] 548300-03-15 07:18:00 Test Item Value Reference Range Interpretation Comments Glucose Lvl (test code = Glucose Lvl) 205 70-99 [place] [address]-03-15 07:18:00 Test Item Value Reference Range Interpretation Comments BUN (test code = BUN) 18 7-22 [place] [address]-03-15 07:18:00 Test Item Value Reference Range Interpretation Comments Creatinine Lvl (test code = Creatinine 0.60 0.50-1.40 Lvl) [place] [address]-03-15 07:18:00 Test Item Value Reference Range Interpretation Comments Sodium Lvl (test code = Sodium Lvl) 137 135-145 [place] [address]-03-15 07:18:00 Test Item Value Reference Range Interpretation Comments Potassium Lvl (test code = Potassium 4.2 3.5-5.1 Lvl) [place] 548300-03-15 07:18:00 Test Item Value Reference Range Interpretation Comments Chloride Lvl (test code = Chloride Lvl) 102 95-109 [place] 548300-03-15 07:18:00 Test Item Value Reference Range Interpretation Comments CO2 (test code = CO2) 28 24-32 [place] [address]-03-15 07:18:00 Test Item Value Reference Range Interpretation Comments Calcium Lvl (test code = Calcium Lvl) 8.8 8.5-10.5 [place] 548300-03-15 07:18:00 Test Item Value Reference Range Interpretation Comments AGAP (test code = AGAP) 11.2 10.0-20.0 [place] [address]-03-15 07:18:00 Test Item Value Reference Range Interpretation Comments eGFR (test code = eGFR) 118 [place] 548300-03-15 07:18:00 Test Item Value Reference Range Interpretation Comments Magnesium Lvl (test code = Magnesium 1.8 1.8-2.4 Lvl) [place] 548300-03-15 07:18:00 Test Item Value Reference Range Interpretation Comments Phosphorus (test code = Phosphorus) 3.2 2.5-4.5 [place] [address]-03-15 07:18:00 Test Item Value Reference Range Interpretation Comments WBC (test code = WBC) 13.5 3.7-10.4 [place] 357640-03-15 07:18:00 Test Item Value Reference Range Interpretation Comments RBC (test code = RBC) 3.98 4.20-5.40 [place] [address]-03-15 07:18:00 Test Item Value Reference Range Interpretation Comments Hgb (test code = Hgb) 12.2 12.0-16.0 [place] [address]-03-15 07:18:00 Test Item Value Reference Range Interpretation Comments Hct (test code = Hct) 37.0 36.0-48.0 [place] [address]-03-15 07:18:00 Test Item Value Reference Range Interpretation Comments MCV (test code = MCV) 93.0 80.0-98.0 [place] [address]-03-15 07:18:00 Test Item Value Reference Range Interpretation Comments MCH (test code = MCH) 30.7 pg 27.0-31.0 [place] [address]-03-15 07:18:00 Test Item Value Reference Range Interpretation Comments MCHC (test code = MCHC) 33.0 32.0-36.0 [place] [address]-03-15 07:18:00 Test Item Value Reference Range Interpretation Comments RDW (test code = RDW) 13.2 11.5-14.5 [place] [address]-03-15 07:18:00 Test Item Value Reference Range Interpretation Comments Platelet (test code = Platelet) 256 133-450 [place] 357640-03-15 07:18:00 Test Item Value Reference Range Interpretation Comments MPV (test code = MPV) 8.1 7.4-10.4 [place] [address]-03-15 07:18:00 Test Item Value Reference Range Interpretation Comments RBC Morph (test code = Normal (11/20/19 2:18 RBC Morph) AM) [facility] HospitalOzdanhuBMYVYMCPXX2031-35-96 07:18:00 Test Item Value Reference Range Interpretation Comments Plt Morph (test code = Normal (11/20/19 2:18 Plt Morph) AM) [facility] HospitalQffuarmVXQQDTFCWM3806-48-49 07:18:00 Test Item Value Reference Range Interpretation Comments Segs (test code = Segs) 83.0 45.0-75.0 [place] 357640-03-15 07:18:00 Test Item Value Reference Range Interpretation Comments Lymphocytes (test code = Lymphocytes) 11.2 20.0-40.0 [place] [address]-03-15 07:18:00 Test Item Value Reference Range Interpretation Comments Monocytes (test code = Monocytes) 4.4 2.0-12.0 [place] [address]-03-15 07:18:00 Test Item Value Reference Range Interpretation Comments Eosinophils (test code = 1.1 See_Comment [A utomated message] The Eosinophils) system which ge nerated this result tra nsmitted reference range : <=4.0. The reference r sharon was not used to int erpret this result as normal/abnormal . [facility] HospitalOyaxruxVNNQXFVCGQ3599-85-38 07:18:00 Test Item Value Reference Range Interpretation Comments Basophils (test code = 0.3 See_Comment [Aut omated message] The Basophils) system which ge nerated this result tra nsmitted reference range : <=1.0. The reference r sharon was not used to int erpret this result as normal/abnormal . [facility] HospitalOjuejdnLZKBYMGCEX3063-27-23 07:18:00 Test Item Value Reference Range Interpretation Comments Neutrophils # (test code = Neutrophils 11.2 1.5-8.1 #) [place] [address]640-03-15 07:18:00 Test Item Value Reference Range Interpretation Comments Lymphocytes # (test code = Lymphocytes 1.5 1.0-5.5 #) [place] [address]640-03-15 07:18:00 Test Item Value Reference Range Interpretation Comments Monocytes # (test code 0.6 See_Comment [Aut omated message] The = Monocytes #) system which generated this result tra nsmitted reference range : <=0.8. The reference r sharon was not used to int erpret this result as normal/abnormal . [place] [address]-03-15 07:18:00 Test Item Value Reference Range Interpretation Comments Eosinophils # (test code 0.1 See_Comment [A utomated message] The = Eosinophils #) system whic h generated this result tra nsmitted reference range : <=0.5. The reference r sharon was not used to int erpret this result as normal/abnormal . [place] [address]-03-15 07:18:00 Test Item Value Reference Range Interpretation Comments Basophils # (test code 0.0 See_Comment [Aut omated message] The = Basophils #) system which generated this result tra nsmitted reference range : <=0.2. The reference r sharon was not used to int erpret this result as normal/abnormal . [place] 843100-03-15 07:18:00 Test Item Value Reference Range Interpretation Comments Ca Ion WB (test code = Ca Ion WB) 1.07 1.05-1.25 [place] [address]-03-15 07:18:00 Test Item Value Reference Range Interpretation Comments Ca Norm WB (test code = Ca Norm WB) 1.09 1.05-1.25 [facility] [id number] 07:18:00 Test Item Value Reference Range Interpretation Comments Glucose Lvl (test code = Glucose Lvl) 205 70-99 [place] [address]-03-15 07:18:00 Test Item Value Reference Range Interpretation Comments BUN (test code = BUN) 18 7-22 [facility] [id number] 07:18:00 Test Item Value Reference Range Interpretation Comments Creatinine Lvl (test code = Creatinine 0.60 0.50-1.40 Lvl) [facility] [id number] 07:18:00 Test Item Value Reference Range Interpretation Comments Sodium Lvl (test code = Sodium Lvl) 137 135-145 [facility] [id number] 07:18:00 Test Item Value Reference Range Interpretation Comments Potassium Lvl (test code = Potassium 4.2 3.5-5.1 Lvl) [facility] [id number] 07:18:00 Test Item Value Reference Range Interpretation Comments Chloride Lvl (test code = Chloride Lvl) 102 95-109 [place] 548300-03-15 07:18:00 Test Item Value Reference Range Interpretation Comments CO2 (test code = CO2) 28 24-32 [place] [address]-03-15 07:18:00 Test Item Value Reference Range Interpretation Comments Calcium Lvl (test code = Calcium Lvl) 8.8 8.5-10.5 [place] 548300-03-15 07:18:00 Test Item Value Reference Range Interpretation Comments AGAP (test code = AGAP) 11.2 10.0-20.0 [place] [address]-03-15 07:18:00 Test Item Value Reference Range Interpretation Comments eGFR (test code = eGFR) 118 [place] 548300-03-15 07:18:00 Test Item Value Reference Range Interpretation Comments Magnesium Lvl (test code = Magnesium 1.8 1.8-2.4 Lvl) [place] 548300-03-15 07:18:00 Test Item Value Reference Range Interpretation Comments Phosphorus (test code = Phosphorus) 3.2 2.5-4.5 [place] [address]-03-15 07:18:00 Test Item Value Reference Range Interpretation Comments WBC (test code = WBC) 13.5 3.7-10.4 [place] [address]-03-15 07:18:00 Test Item Value Reference Range Interpretation Comments RBC (test code = RBC) 3.98 4.20-5.40 [place] [address]-03-15 07:18:00 Test Item Value Reference Range Interpretation Comments Hgb (test code = Hgb) 12.2 12.0-16.0 [place] [address]-03-15 07:18:00 Test Item Value Reference Range Interpretation Comments Hct (test code = Hct) 37.0 36.0-48.0 [place] [address]-03-15 07:18:00 Test Item Value Reference Range Interpretation Comments MCV (test code = MCV) 93.0 80.0-98.0 [place] [address]-03-15 07:18:00 Test Item Value Reference Range Interpretation Comments MCH (test code = MCH) 30.7 pg 27.0-31.0 [place] [address]-03-15 07:18:00 Test Item Value Reference Range Interpretation Comments MCHC (test code = MCHC) 33.0 32.0-36.0 [facility] HospitalRzvrkceJIQEFQAQTO5924-45-87 07:18:00 Test Item Value Reference Range Interpretation Comments RDW (test code = RDW) 13.2 11.5-14.5 [facility] HospitalDwsovvuDJVRIXRNFY4020-67-70 07:18:00 Test Item Value Reference Range Interpretation Comments Platelet (test code = Platelet) 256 133-450 [facility] HospitalZdnghldQNHXCPKZOQ0666-63-40 07:18:00 Test Item Value Reference Range Interpretation Comments MPV (test code = MPV) 8.1 7.4-10.4 [facility] HospitalJysfrkiTGZGFPDKYR3823-68-09 07:18:00 Test Item Value Reference Range Interpretation Comments RBC Morph (test code = Normal (11/20/19 2:18 RBC Morph) AM) [facility] HospitalTmlsamhXHQIKERCWH1494-76-32 07:18:00 Test Item Value Reference Range Interpretation Comments Plt Morph (test code = Normal (11/20/19 2:18 Plt Morph) AM) [facility] HospitalBqvcdeaNTKMQVSCSN8747-35-09 07:18:00 Test Item Value Reference Range Interpretation Comments Segs (test code = Segs) 83.0 45.0-75.0 [facility] HospitalLlrbguiISLBJLPGTP4823-15-90 07:18:00 Test Item Value Reference Range Interpretation Comments Lymphocytes (test code = Lymphocytes) 11.2 20.0-40.0 [facility] HospitalKwuigykHBFAHFYYUG1280-95-41 07:18:00 Test Item Value Reference Range Interpretation Comments Monocytes (test code = Monocytes) 4.4 2.0-12.0 [place] [address]-03-15 07:18:00 Test Item Value Reference Range Interpretation Comments Eosinophils (test code = 1.1 See_Comment [A utomated message] The Eosinophils) system which ge nerated this result tra nsmitted reference range : <=4.0. The reference r sharon was not used to int erpret this result as normal/abnormal . [place] [address]-03-15 07:18:00 Test Item Value Reference Range Interpretation Comments Basophils (test code = 0.3 See_Comment [Aut omated message] The Basophils) system which ge nerated this result tra nsmitted reference range : <=1.0. The reference r sharon was not used to int erpret this result as normal/abnormal . [place] [address]640-03-15 07:18:00 Test Item Value Reference Range Interpretation Comments Neutrophils # (test code = Neutrophils 11.2 1.5-8.1 #) [place] 357640-03-15 07:18:00 Test Item Value Reference Range Interpretation Comments Lymphocytes # (test code = Lymphocytes 1.5 1.0-5.5 #) [place] [address]-03-15 07:18:00 Test Item Value Reference Range Interpretation Comments Monocytes # (test code 0.6 See_Comment [Aut omated message] The = Monocytes #) system which generated this result tra nsmitted reference range : <=0.8. The reference r sharon was not used to int erpret this result as normal/abnormal . [place] [address]-03-15 07:18:00 Test Item Value Reference Range Interpretation Comments Eosinophils # (test code 0.1 See_Comment [A utomated message] The = Eosinophils #) system whic h generated this result tra nsmitted reference range : <=0.5. The reference r sharon was not used to int erpret this result as normal/abnormal . [place] 357640-03-15 07:18:00 Test Item Value Reference Range Interpretation Comments Basophils # (test code 0.0 See_Comment [Aut omated message] The = Basophils #) system which generated this result tra nsmitted reference range : <=0.2. The reference r sharon was not used to int erpret this result as normal/abnormal . [facility]2020-03-15 07:18:00 Test Item Value Reference Range Interpretation Comments Ca Ion WB (test code = Ca Ion WB) 1.07 1.05-1.25 [facility]Sand[facility] SolutionsJEFFREY [place]IL[place] [id number] 07:18:00 Test Item Value Reference Range Interpretation Comments Ca Norm WB (test code = Ca Norm WB) 1.09 1.05-1.25 [place] 548300-03-15 07:18:00 Test Item Value Reference Range Interpretation Comments Glucose Lvl (test code = Glucose Lvl) 205 70-99 [place] 548300-03-15 07:18:00 Test Item Value Reference Range Interpretation Comments BUN (test code = BUN) 18 7-22 [place] 548300-03-15 07:18:00 Test Item Value Reference Range Interpretation Comments Creatinine Lvl (test code = Creatinine 0.60 0.50-1.40 Lvl) [place] 548300-03-15 07:18:00 Test Item Value Reference Range Interpretation Comments Sodium Lvl (test code = Sodium Lvl) 137 135-145 [place] [address]-03-15 07:18:00 Test Item Value Reference Range Interpretation Comments Potassium Lvl (test code = Potassium 4.2 3.5-5.1 Lvl) [place] [address]-03-15 07:18:00 Test Item Value Reference Range Interpretation Comments Chloride Lvl (test code = Chloride Lvl) 102 95-109 [place] 548300-03-15 07:18:00 Test Item Value Reference Range Interpretation Comments CO2 (test code = CO2) 28 24-32 [place] [address]-03-15 07:18:00 Test Item Value Reference Range Interpretation Comments Calcium Lvl (test code = Calcium Lvl) 8.8 8.5-10.5 [place] 548300-03-15 07:18:00 Test Item Value Reference Range Interpretation Comments AGAP (test code = AGAP) 11.2 10.0-20.0 [place] 548300-03-15 07:18:00 Test Item Value Reference Range Interpretation Comments eGFR (test code = eGFR) 118 [place] 548300-03-15 07:18:00 Test Item Value Reference Range Interpretation Comments Magnesium Lvl (test code = Magnesium 1.8 1.8-2.4 Lvl) [place] 548300-03-15 07:18:00 Test Item Value Reference Range Interpretation Comments Phosphorus (test code = Phosphorus) 3.2 2.5-4.5 [place] [address]-03-15 07:18:00 Test Item Value Reference Range Interpretation Comments WBC (test code = WBC) 13.5 3.7-10.4 [place] [address]-03-15 07:18:00 Test Item Value Reference Range Interpretation Comments RBC (test code = RBC) 3.98 4.20-5.[address]03-15 07:18:00 Test Item Value Reference Range Interpretation Comments Hgb (test code = Hgb) 12.2 12.0-16.0 [place] [address]-03-15 07:18:00 Test Item Value Reference Range Interpretation Comments Hct (test code = Hct) 37.0 36.0-48.0 [facility] HospitalRukgktiZBKZCQTPON3407-35-04 07:18:00 Test Item Value Reference Range Interpretation Comments MCV (test code = MCV) 93.0 80.0-98.0 [place] [address]-03-15 07:18:00 Test Item Value Reference Range Interpretation Comments MCH (test code = MCH) 30.7 pg 27.0-31.0 [facility] HospitalHvnykgaPLXUUVLZMZ1448-33-42 07:18:00 Test Item Value Reference Range Interpretation Comments MCHC (test code = MCHC) 33.0 32.0-36.0 [facility] HospitalXwmoguoAFDUPOQQRS7424-28-35 07:18:00 Test Item Value Reference Range Interpretation Comments RDW (test code = RDW) 13.2 11.5-14.5 [place] [address]-03-15 07:18:00 Test Item Value Reference Range Interpretation Comments Platelet (test code = Platelet) 256 133-450 [facility] HospitalKnuhinpGEMAVWHHOT7479-31-51 07:18:00 Test Item Value Reference Range Interpretation Comments MPV (test code = MPV) 8.1 7.4-10.4 [facility] HospitalIxbuopxFTEJQZFXSH6425-87-07 07:18:00 Test Item Value Reference Range Interpretation Comments RBC Morph (test code = Normal (11/20/19 2:18 RBC Morph) AM) [facility] HospitalRfppipuFNMRREOFAX8449-11-96 07:18:00 Test Item Value Reference Range Interpretation Comments Plt Morph (test code = Normal (11/20/19 2:18 Plt Morph) AM) [facility] HospitalXxfsqqnBMFLXHKAST4339-08-94 07:18:00 Test Item Value Reference Range Interpretation Comments Segs (test code = Segs) 83.0 45.0-75.0 [place] [address]-03-15 07:18:00 Test Item Value Reference Range Interpretation Comments Lymphocytes (test code = Lymphocytes) 11.2 20.0-40.0 [place] [address]-03-15 07:18:00 Test Item Value Reference Range Interpretation Comments Monocytes (test code = Monocytes) 4.4 2.0-12.[address]03-15 07:18:00 Test Item Value Reference Range Interpretation Comments Eosinophils (test code = 1.1 See_Comment [A utomated message] The Eosinophils) system which ge nerated this result tra nsmitted reference range : <=4.0. The reference r sharon was not used to int erpret this result as normal/abnormal . [address]03-15 07:18:00 Test Item Value Reference Range Interpretation Comments Basophils (test code = 0.3 See_Comment [Aut omated message] The Basophils) system which ge nerated this result tra nsmitted reference range : <=1.0. The reference r sharon was not used to int erpret this result as normal/abnormal . [address]03-15 07:18:00 Test Item Value Reference Range Interpretation Comments Neutrophils # (test code = Neutrophils 11.2 1.5-8.1 #) [address]03-15 07:18:00 Test Item Value Reference Range Interpretation Comments Lymphocytes # (test code = Lymphocytes 1.5 1.0-5.5 #) [address]03-15 07:18:00 Test Item Value Reference Range Interpretation Comments Monocytes # (test code 0.6 See_Comment [Aut omated message] The = Monocytes #) system which generated this result tra nsmitted reference range : <=0.8. The reference r sharon was not used to int erpret this result as normal/abnormal . [place] [address]-03-15 07:18:00 Test Item Value Reference Range Interpretation Comments Eosinophils # (test code 0.1 See_Comment [A utomated message] The = Eosinophils #) system whic h generated this result tra nsmitted reference range : <=0.5. The reference r sharon was not used to int erpret this result as normal/abnormal . [address]03-15 07:18:00 Test Item Value Reference Range Interpretation Comments Basophils # (test code 0.0 See_Comment [Aut omated message] The = Basophils #) system which generated this result tra nsmitted reference range : <=0.2. The reference r sharon was not used to int erpret this result as normal/abnormal . [facility] [id number]:18:00 Test Item Value Reference Range Interpretation Comments Ca Ion WB (test code = Ca Ion WB) 1.07 1.05-1.25 [facility] [id number] 07:18:00 Test Item Value Reference Range Interpretation Comments Ca Norm WB (test code = Ca Norm WB) 1.09 1.05-1.25 [facility]2020-03-14 07:06:00 Test Item Value Reference Range Interpretation Comments Phosphorus (test code = Phosphorus) 4.0 2.5-4.5 [facility]2020-03-14 07:06:00 Test Item Value Reference Range Interpretation Comments Magnesium Lvl (test code = Magnesium 1.7 1.8-2.4 Lvl) [facility]2020-03-14 07:06:00 Test Item Value Reference Range Interpretation Comments Glucose Lvl (test code = Glucose Lvl) 100 70-99 [facility]2020-03-14 07:06:00 Test Item Value Reference Range Interpretation Comments BUN (test code = BUN) 13 7-22 [place] [address]-03-14 07:06:00 Test Item Value Reference Range Interpretation Comments Creatinine Lvl (test code = Creatinine 0.50 0.50-1.40 Lvl) [facility]2020-03-14 07:06:00 Test Item Value Reference Range Interpretation Comments Sodium Lvl (test code = Sodium Lvl) 142 135-145 [facility]2020-03-14 07:06:00 Test Item Value Reference Range Interpretation Comments Potassium Lvl (test code = Potassium 3.8 3.5-5.1 Lvl) [place] [address]300-03-14 07:06:00 Test Item Value Reference Range Interpretation Comments Chloride Lvl (test code = Chloride Lvl) 105 95-109 [facility]2020-03-14 07:06:00 Test Item Value Reference Range Interpretation Comments CO2 (test code = CO2) 29 24-32 [place] [address]-03-14 07:06:00 Test Item Value Reference Range Interpretation Comments AGAP (test code = AGAP) 11.8 10.0-20.0 [facility] [id number] 07:06:00 Test Item Value Reference Range Interpretation Comments Calcium Lvl (test code = Calcium Lvl) 8.5 8.5-10.5 [facility] [id number] 07:06:00 Test Item Value Reference Range Interpretation Comments B/C Ratio (test code = B/C Ratio) 26 1 6-25 [facility] [id number] 07:06:00 Test Item Value Reference Range Interpretation Comments Total Protein (test code = Total 6.9 6.4-8.4 Protein) [facility] [id number] 07:06:00 Test Item Value Reference Range Interpretation Comments Albumin Lvl (test code = Albumin Lvl) 3.1 3.5-5.0 [facility] [id number] 07:06:00 Test Item Value Reference Range Interpretation Comments Globulin (test code = Globulin) 3.8 2.7-4.2 [facility] [id number] 07:06:00 Test Item Value Reference Range Interpretation Comments A/G Ratio (test code = A/G Ratio) 0.8 1 0.7-1.6 [facility] [id number] 07:06:00 Test Item Value Reference Range Interpretation Comments ALT (test code = ALT) 132 See_Comment [Auto mated message] The system which ge nerated this result transmit roberto carlos reference range : <=65. The reference range was not used to interpr et this result as tyler l/abnormal. [facility] [id number] 07:06:00 Test Item Value Reference Range Interpretation Comments AST (test code = AST) 184 See_Comment [Auto mated message] The system which ge nerated this result transmit roberto carlos reference range : <=37. The reference range was not used to interpr et this result as tyler l/abnormal. [facility] [id number] 07:06:00 Test Item Value Reference Range Interpretation Comments Alk Phos (test code = Alk Phos) 109 39-136 [facility] [id number] 07:06:00 Test Item Value Reference Range Interpretation Comments Bili Total (test code = Bili Total) 0.4 0.2-1.3 [facility]2020-03-14 07:06:00 Test Item Value Reference Range Interpretation Comments eGFR (test code = eGFR) 125 [facility]asaiwCSKZVKWWLF8915-40-85 07:06:00 Test Item Value Reference Range Interpretation Comments WBC (test code = WBC) 9.8 3.7-10.4 [facility]OpazlhrLFZQOULJVB5842-62-58 07:06:00 Test Item Value Reference Range Interpretation Comments RBC (test code = RBC) 3.94 4.20-5.40 [facility] HospitalWmgbaheBWXLGJZHTF1188-23-94 07:06:00 Test Item Value Reference Range Interpretation Comments Hgb (test code = Hgb) 12.4 12.0-16.0 [facility] HospitalVtxkpykWMLWMAQIOX3387-54-96 07:06:00 Test Item Value Reference Range Interpretation Comments Hct (test code = Hct) 36.6 36.0-48.0 [facility] HospitalIzeoourKKXRTGOHLR3449-11-31 07:06:00 Test Item Value Reference Range Interpretation Comments MCV (test code = MCV) 92.9 80.0-98.0 [facility] HospitalZlutrcyNJIISMIQTV6392-02-72 07:06:00 Test Item Value Reference Range Interpretation Comments MCH (test code = MCH) 31.4 pg 27.0-31.0 [facility] HospitalRqqeoewWPABXZCQWE0730-72-66 07:06:00 Test Item Value Reference Range Interpretation Comments MCHC (test code = MCHC) 33.8 32.0-36.0 [facility] HospitalAdfrkysPVOIKKBVKH7545-57-61 07:06:00 Test Item Value Reference Range Interpretation Comments RDW (test code = RDW) 13.1 11.5-14.5 [facility] HospitalLuvncceCQLPGAJMJD7288-38-31 07:06:00 Test Item Value Reference Range Interpretation Comments Platelet (test code = Platelet) 246 133-450 [facility] HospitalAitjojzQYZNCRFPWX3771-76-74 07:06:00 Test Item Value Reference Range Interpretation Comments MPV (test code = MPV) 8.0 7.4-10.4 [facility] HospitalMrjqhzwMQPHLISDMV3187-87-14 07:06:00 Test Item Value Reference Range Interpretation Comments PTT (test code = PTT) 31.4 s 22.9-35.8 [facility] HospitalNpwbrpeRCSLGQDRJC7350-34-48 07:06:00 Test Item Value Reference Range Interpretation Comments PT (test code = PT) 13.7 s 12.0-14.7 [facility] HospitalNffttwlPJQYJUUYFD1508-15-14 07:06:00 Test Item Value Reference Range Interpretation Comments INR (test code = INR) 1.05 1 0.85-1.17 [facility] HospitalUzfzfxmJYOSSLLOET9774-72-90 07:06:00 Test Item Value Reference Range Interpretation Comments Segs (test code = Segs) 68.3 45.0-75.0 [facility] HospitalJufnzgyPLUCAYQJFY2084-77-40 07:06:00 Test Item Value Reference Range Interpretation Comments Lymphocytes (test code = Lymphocytes) 21.7 20.0-40.0 [place]640-03-14 07:06:00 Test Item Value Reference Range Interpretation Comments Monocytes (test code = Monocytes) 7.7 2.0-12.0 [facility] HospitalBkhoviiSMZTUSUXZS7683-27-76 07:06:00 Test Item Value Reference Range Interpretation Comments Eosinophils (test code = 1.7 See_Comment [A utomated message] The Eosinophils) system which ge nerated this result tra nsmitted reference range : <=4.0. The reference r sharon was not used to int erpret this result as normal/abnormal . [facility] HospitalKdnldajWYAELWZDXW7627-74-92 07:06:00 Test Item Value Reference Range Interpretation Comments Basophils (test code = 0.6 See_Comment [Aut omated message] The Basophils) system which ge nerated this result tra nsmitted reference range : <=1.0. The reference r sharon was not used to int erpret this result as normal/abnormal . [facility] HospitalJugtwffUHGNUMYDOM5678-51-85 07:06:00 Test Item Value Reference Range Interpretation Comments Neutrophils # (test code = Neutrophils 6.7 1.5-8.1 #) [facility] HospitalOjnrndhLMZXULYSKM4446-58-86 07:06:00 Test Item Value Reference Range Interpretation Comments Lymphocytes # (test code = Lymphocytes 2.1 1.0-5.5 #) [facility] HospitalZoivejxNEBVUHFBRR4237-46-95 07:06:00 Test Item Value Reference Range Interpretation Comments Monocytes # (test code 0.8 See_Comment [Aut omated message] The = Monocytes #) system which generated this result tra nsmitted reference range : <=0.8. The reference r sharon was not used to int erpret this result as normal/abnormal . [facility] HospitalGwyaxzgRMAVITOYTC3301-18-40 07:06:00 Test Item Value Reference Range Interpretation Comments Eosinophils # (test code 0.2 See_Comment [A utomated message] The = Eosinophils #) system whic h generated this result tra nsmitted reference range : <=0.5. The reference r sharon was not used to int erpret this result as normal/abnormal . [place] [address]640-03-14 07:06:00 Test Item Value Reference Range Interpretation Comments Basophils # (test code 0.1 See_Comment [Aut omated message] The = Basophils #) system which generated this result tra nsmitted reference range : <=0.2. The reference r sharon was not used to int erpret this result as normal/abnormal . [facility] [id number] 07:06:00 Test Item Value Reference Range Interpretation Comments Phosphorus (test code = Phosphorus) 4.0 2.5-4.5 [facility] [id number] 07:06:00 Test Item Value Reference Range Interpretation Comments Magnesium Lvl (test code = Magnesium 1.7 1.8-2.4 Lvl) [facility] [id number] 07:06:00 Test Item Value Reference Range Interpretation Comments Glucose Lvl (test code = Glucose Lvl) 100 70-99 [facility] [id number] 07:06:00 Test Item Value Reference Range Interpretation Comments BUN (test code = BUN) 13 7-22 [facility] [id number] 07:06:00 Test Item Value Reference Range Interpretation Comments Creatinine Lvl (test code = Creatinine 0.50 0.50-1.40 Lvl) [facility] [id number] 07:06:00 Test Item Value Reference Range Interpretation Comments Sodium Lvl (test code = Sodium Lvl) 142 135-145 [facility] [id number] 07:06:00 Test Item Value Reference Range Interpretation Comments Potassium Lvl (test code = Potassium 3.8 3.5-5.1 Lvl) [facility] [id number] 07:06:00 Test Item Value Reference Range Interpretation Comments Chloride Lvl (test code = Chloride Lvl) 105 95-109 [facility] [id number] 07:06:00 Test Item Value Reference Range Interpretation Comments CO2 (test code = CO2) 29 24-32 [facility] [id number] 07:06:00 Test Item Value Reference Range Interpretation Comments AGAP (test code = AGAP) 11.8 10.0-20.0 [facility] [id number] 07:06:00 Test Item Value Reference Range Interpretation Comments Calcium Lvl (test code = Calcium Lvl) 8.5 8.5-10.5 [facility] [id number] 07:06:00 Test Item Value Reference Range Interpretation Comments B/C Ratio (test code = B/C Ratio) 26 1 6-25 [facility] [id number] 07:06:00 Test Item Value Reference Range Interpretation Comments Total Protein (test code = Total 6.9 6.4-8.4 Protein) [facility] [id number] 07:06:00 Test Item Value Reference Range Interpretation Comments Albumin Lvl (test code = Albumin Lvl) 3.1 3.5-5.0 [facility] [id number] 07:06:00 Test Item Value Reference Range Interpretation Comments Globulin (test code = Globulin) 3.8 2.7-4.2 [facility] [id number] 07:06:00 Test Item Value Reference Range Interpretation Comments A/G Ratio (test code = A/G Ratio) 0.8 1 0.7-1.6 [facility] [id number] 07:06:00 Test Item Value Reference Range Interpretation Comments ALT (test code = ALT) 132 See_Comment [Auto mated message] The system which ge nerated this result transmit roberto carlos reference range : <=65. The reference range was not used to interpr et this result as tyler l/abnormal. [facility] [id number] 07:06:00 Test Item Value Reference Range Interpretation Comments AST (test code = AST) 184 See_Comment [Auto mated message] The system which ge nerated this result transmit roberto carlos reference range : <=37. The reference range was not used to interpr et this result as tyler l/abnormal. [facility] [id number] 07:06:00 Test Item Value Reference Range Interpretation Comments Alk Phos (test code = Alk Phos) 109 39-136 [facility] [id number] 07:06:00 Test Item Value Reference Range Interpretation Comments Bili Total (test code = Bili Total) 0.4 0.2-1.3 [facility] [id number] 07:06:00 Test Item Value Reference Range Interpretation Comments eGFR (test code = eGFR) 125 [facility] HospitalPhbayoxPJYCOQWTVI6475-82-39 07:06:00 Test Item Value Reference Range Interpretation Comments WBC (test code = WBC) 9.8 3.7-10.4 [facility] HospitalCucufobEUUVYQAJTG6395-23-62 07:06:00 Test Item Value Reference Range Interpretation Comments RBC (test code = RBC) 3.94 4.20-5.40 [facility] HospitalEhfsfhpAZHDDNSGUK6432-80-02 07:06:00 Test Item Value Reference Range Interpretation Comments Hgb (test code = Hgb) 12.4 12.0-16.0 [facility] HospitalCuotybiSRYJLUSVTP2093-49-12 07:06:00 Test Item Value Reference Range Interpretation Comments Hct (test code = Hct) 36.6 36.0-48.0 [facility] HospitalNakxjraHQSKVEYQBW8363-37-94 07:06:00 Test Item Value Reference Range Interpretation Comments MCV (test code = MCV) 92.9 80.0-98.0 [facility] HospitalWpavqcvCCHSFPPHQD1358-24-66 07:06:00 Test Item Value Reference Range Interpretation Comments MCH (test code = MCH) 31.4 pg 27.0-31.0 [facility] HospitalDxpxjdbGMDBKPZUEF2095-88-72 07:06:00 Test Item Value Reference Range Interpretation Comments MCHC (test code = MCHC) 33.8 32.0-36.0 [facility] HospitalJgxvqaxSYRBZHWLZP5138-52-32 07:06:00 Test Item Value Reference Range Interpretation Comments RDW (test code = RDW) 13.1 11.5-14.5 [facility] HospitalWlszjkbBINZWPYNJO6862-01-13 07:06:00 Test Item Value Reference Range Interpretation Comments Platelet (test code = Platelet) 246 133-450 [facility] HospitalFfhduciUZIOWPWJUL3635-73-12 07:06:00 Test Item Value Reference Range Interpretation Comments MPV (test code = MPV) 8.0 7.4-10.4 [facility] HospitalLqzwepyUWSXMJOILB2499-18-07 07:06:00 Test Item Value Reference Range Interpretation Comments PTT (test code = PTT) 31.4 s 22.9-35.8 [facility] HospitalJsjwlirYBVKALJZUT6304-08-15 07:06:00 Test Item Value Reference Range Interpretation Comments PT (test code = PT) 13.7 s 12.0-14.7 [facility] HospitalShlkzazRQQPMYJEVG3523-07-05 07:06:00 Test Item Value Reference Range Interpretation Comments INR (test code = INR) 1.05 1 0.85-1.17 [facility] HospitalUwjzuouOIMLXACNQR4357-91-48 07:06:00 Test Item Value Reference Range Interpretation Comments Segs (test code = Segs) 68.3 45.0-75.0 [facility] HospitalYvlolapNSKEKTTPDU8941-49-32 07:06:00 Test Item Value Reference Range Interpretation Comments Lymphocytes (test code = Lymphocytes) 21.7 20.0-40.0 [facility] HospitalIrxznovJOZOLAWXAL9257-03-97 07:06:00 Test Item Value Reference Range Interpretation Comments Monocytes (test code = Monocytes) 7.7 2.0-12.0 [facility] HospitalCuuxfxkHTLUKGJWQA1341-19-67 07:06:00 Test Item Value Reference Range Interpretation Comments Eosinophils (test code = 1.7 See_Comment [A utomated message] The Eosinophils) system which ge nerated this result tra nsmitted reference range : <=4.0. The reference r sharon was not used to int erpret this result as normal/abnormal . [facility] HospitalMlevmawFEJWAHBRXE9790-98-45 07:06:00 Test Item Value Reference Range Interpretation Comments Basophils (test code = 0.6 See_Comment [Aut omated message] The Basophils) system which ge nerated this result tra nsmitted reference range : <=1.0. The reference r sharon was not used to int erpret this result as normal/abnormal . [facility] HospitalZxaqfnbCGMLQWATCB4446-88-96 07:06:00 Test Item Value Reference Range Interpretation Comments Neutrophils # (test code = Neutrophils 6.7 1.5-8.1 #) [facility] HospitalVvczqxaNLBENQPONG9361-66-42 07:06:00 Test Item Value Reference Range Interpretation Comments Lymphocytes # (test code = Lymphocytes 2.1 1.0-5.5 #) [facility] HospitalHdghrjiPNSTPZZCVK5889-25-53 07:06:00 Test Item Value Reference Range Interpretation Comments Monocytes # (test code 0.8 See_Comment [Aut omated message] The = Monocytes #) system which generated this result tra nsmitted reference range : <=0.8. The reference r sharon was not used to int erpret this result as normal/abnormal . [facility] HospitalOpxzzkbJFGFWILWUA0478-75-88 07:06:00 Test Item Value Reference Range Interpretation Comments Eosinophils # (test code 0.2 See_Comment [A utomated message] The = Eosinophils #) system whic h generated this result tra nsmitted reference range : <=0.5. The reference r sharon was not used to int erpret this result as normal/abnormal . [place] 357640-03-14 07:06:00 Test Item Value Reference Range Interpretation Comments Basophils # (test code 0.1 See_Comment [Aut omated message] The = Basophils #) system which generated this result tra nsmitted reference range : <=0.2. The reference r sharon was not used to int erpret this result as normal/abnormal . [facility] [id number] 07:06:00 Test Item Value Reference Range Interpretation Comments Phosphorus (test code = Phosphorus) 4.0 2.5-4.5 [facility] [id number] 07:06:00 Test Item Value Reference Range Interpretation Comments Magnesium Lvl (test code = Magnesium 1.7 1.8-2.4 Lvl) [facility] [id number] 07:06:00 Test Item Value Reference Range Interpretation Comments Glucose Lvl (test code = Glucose Lvl) 100 70-99 [facility] [id number] 07:06:00 Test Item Value Reference Range Interpretation Comments BUN (test code = BUN) 13 7-22 [facility] [id number] 07:06:00 Test Item Value Reference Range Interpretation Comments Creatinine Lvl (test code = Creatinine 0.50 0.50-1.40 Lvl) [facility] [id number] 07:06:00 Test Item Value Reference Range Interpretation Comments Sodium Lvl (test code = Sodium Lvl) 142 135-145 [facility] [id number] 07:06:00 Test Item Value Reference Range Interpretation Comments Potassium Lvl (test code = Potassium 3.8 3.5-5.1 Lvl) [facility] [id number] 07:06:00 Test Item Value Reference Range Interpretation Comments Chloride Lvl (test code = Chloride Lvl) 105 95-109 [place] 548300-03-14 07:06:00 Test Item Value Reference Range Interpretation Comments CO2 (test code = CO2) 29 24-32 [facility] [address]BPQGW8074-24-15 07:06:00 Test Item Value Reference Range Interpretation Comments AGAP (test code = AGAP) 11.8 10.0-20.0 [facility] [id number] 07:06:00 Test Item Value Reference Range Interpretation Comments Calcium Lvl (test code = Calcium Lvl) 8.5 8.5-10.5 [facility] [address]YTKZC0887-44-16 07:06:00 Test Item Value Reference Range Interpretation Comments B/C Ratio (test code = B/C Ratio) 26 1 6-25 [facility] [id number] 07:06:00 Test Item Value Reference Range Interpretation Comments Total Protein (test code = Total 6.9 6.4-8.4 Protein) [facility] [id number] 07:06:00 Test Item Value Reference Range Interpretation Comments Albumin Lvl (test code = Albumin Lvl) 3.1 3.5-5.0 [place] [address]-03-14 07:06:00 Test Item Value Reference Range Interpretation Comments Globulin (test code = Globulin) 3.8 2.7-4.2 [facility] [id number] 07:06:00 Test Item Value Reference Range Interpretation Comments A/G Ratio (test code = A/G Ratio) 0.8 1 0.7-1.6 [place] [address]-03-14 07:06:00 Test Item Value Reference Range Interpretation Comments ALT (test code = ALT) 132 See_Comment [Auto mated message] The system which ge nerated this result transmit roberto carlos reference range : <=65. The reference range was not used to interpr et this result as tyler l/abnormal. [facility] [id number] 07:06:00 Test Item Value Reference Range Interpretation Comments AST (test code = AST) 184 See_Comment [Auto mated message] The system which ge nerated this result transmit roberto carlos reference range : <=37. The reference range was not used to interpr et this result as tyler l/abnormal. [facility] [id number] 07:06:00 Test Item Value Reference Range Interpretation Comments Alk Phos (test code = Alk Phos) 109 39-136 [facility] [id number] 07:06:00 Test Item Value Reference Range Interpretation Comments Bili Total (test code = Bili Total) 0.4 0.2-1.3 [facility] [id number] 07:06:00 Test Item Value Reference Range Interpretation Comments eGFR (test code = eGFR) 125 [facility] TaylorHtposjrGJPJHRWAHI5458-24-86 07:06:00 Test Item Value Reference Range Interpretation Comments WBC (test code = WBC) 9.8 3.7-10.4 [place] 357640-03-14 07:06:00 Test Item Value Reference Range Interpretation Comments RBC (test code = RBC) 3.94 4.20-5.40 [facility] HospitalZyraausINPHXMDNFY6725-77-93 07:06:00 Test Item Value Reference Range Interpretation Comments Hgb (test code = Hgb) 12.4 12.0-16.0 [facility]MIOEJUAW8675-53-41 07:06:00 Test Item Value Reference Range Interpretation Comments Hct (test code = Hct) 36.6 36.0-48.0 [facility] HospitalHrbcgyzYMYWCHXMXZ4164-60-37 07:06:00 Test Item Value Reference Range Interpretation Comments MCV (test code = MCV) 92.9 80.0-98.0 [place] 357640-03-14 07:06:00 Test Item Value Reference Range Interpretation Comments MCH (test code = MCH) 31.4 pg 27.0-31.0 [facility] HospitalFocwhmoNPXZNSMUTN8896-92-67 07:06:00 Test Item Value Reference Range Interpretation Comments MCHC (test code = MCHC) 33.8 32.0-36.0 [facility] HospitalSysmnbfQZUWOQSTMJ8567-23-78 07:06:00 Test Item Value Reference Range Interpretation Comments RDW (test code = RDW) 13.1 11.5-14.5 [facility] HospitalYkjvahxMIVOUNHKAW9293-48-95 07:06:00 Test Item Value Reference Range Interpretation Comments Platelet (test code = Platelet) 246 133-450 [facility] HospitalFejibqeOVUIUSJIBE6968-16-66 07:06:00 Test Item Value Reference Range Interpretation Comments MPV (test code = MPV) 8.0 7.4-10.4 [facility]RokngsxCZGPOUXEJQ9253-86-97 07:06:00 Test Item Value Reference Range Interpretation Comments PTT (test code = PTT) 31.4 s 22.9-35.8 [facility] HospitalCmxjyosMJBUHFPBXI0518-93-16 07:06:00 Test Item Value Reference Range Interpretation Comments PT (test code = PT) 13.7 s 12.0-14.7 [facility] HospitalNrvwmloSCDKTHURML6015-12-05 07:06:00 Test Item Value Reference Range Interpretation Comments INR (test code = INR) 1.05 1 0.85-1.17 [facility] HospitalYfvyfmcZCBIDEEHFS8427-09-22 07:06:00 Test Item Value Reference Range Interpretation Comments Segs (test code = Segs) 68.3 45.0-75.0 [facility] HospitalBqgxpxdKNJQFTGNAF1453-81-46 07:06:00 Test Item Value Reference Range Interpretation Comments Lymphocytes (test code = Lymphocytes) 21.7 20.0-40.0 [facility] HospitalPnmucjaASENNXROTQ4344-07-47 07:06:00 Test Item Value Reference Range Interpretation Comments Monocytes (test code = Monocytes) 7.7 2.0-12.0 [facility] HospitalIoxxbasWAPEIKOKZW9404-54-90 07:06:00 Test Item Value Reference Range Interpretation Comments Eosinophils (test code = 1.7 See_Comment [A utomated message] The Eosinophils) system which ge nerated this result tra nsmitted reference range : <=4.0. The reference r sharon was not used to int erpret this result as normal/abnormal . [facility] HospitalFpgpyplEAHAXAICDC8247-83-27 07:06:00 Test Item Value Reference Range Interpretation Comments Basophils (test code = 0.6 See_Comment [Aut omated message] The Basophils) system which ge nerated this result tra nsmitted reference range : <=1.0. The reference r sharon was not used to int erpret this result as normal/abnormal . [facility] HospitalZvuhuxiPDVHUQQBII3815-89-77 07:06:00 Test Item Value Reference Range Interpretation Comments Neutrophils # (test code = Neutrophils 6.7 1.5-8.1 #) [place] 357640-03-14 07:06:00 Test Item Value Reference Range Interpretation Comments Lymphocytes # (test code = Lymphocytes 2.1 1.0-5.5 #) [place] 357640-03-14 07:06:00 Test Item Value Reference Range Interpretation Comments Monocytes # (test code 0.8 See_Comment [Aut omated message] The = Monocytes #) system which generated this result tra nsmitted reference range : <=0.8. The reference r sharon was not used to int erpret this result as normal/abnormal . [place] 357640-03-14 07:06:00 Test Item Value Reference Range Interpretation Comments Eosinophils # (test code 0.2 See_Comment [A utomated message] The = Eosinophils #) system whic h generated this result tra nsmitted reference range : <=0.5. The reference r sharon was not used to int erpret this result as normal/abnormal . [facility] HospitalFepvzwtFZNNPQRGJJ6307-58-31 07:06:00 Test Item Value Reference Range Interpretation Comments Basophils # (test code 0.1 See_Comment [Aut omated message] The = Basophils #) system which generated this result tra nsmitted reference range : <=0.2. The reference r sharon was not used to int erpret this result as normal/abnormal . [facility] PasoTripos[facility] QPLKZ7053-23-75 16:12:00 Test Item Value Reference Range Interpretation Comments Magnesium Lvl (test code = Magnesium 1.9 1.8-2.4 Lvl) [facility] Paso[facility] LTFYC0435-03-91 16:12:00 Test Item Value Reference Range Interpretation Comments Phosphorus (test code = Phosphorus) 4.8 2.5-4.5 [place] [address]-03-13 16:12:00 Test Item Value Reference Range Interpretation Comments PT (test code = PT) 13.9 s 12.0-14.7 [facility] TaylorKisfovkSFFWDYJFVG9984-52-56 16:12:00 Test Item Value Reference Range Interpretation Comments INR (test code = INR) 1.07 1 0.85-1.17 [facility] TaylorZeipsrpOPYHSIMAHK3817-44-01 16:12:00 Test Item Value Reference Range Interpretation Comments PTT (test code = PTT) 28.3 s 22.9-35.8 [facility] TaylorJdqsxwqYXYVTKLLMD3180-83-00 16:12:00 Test Item Value Reference Range Interpretation Comments Fibrinogen Lvl (test code = Fibrinogen 436 230-510 Lvl) [facility] TaylorOhkpyicOLHBPV7047-53-54 16:12:00 Test Item Value Reference Range Interpretation Comments Trig (test code = Trig) 66 [facility]RbqtxyeWOODFG9272-03-34 16:12:00 Test Item Value Reference Range Interpretation Comments Chol (test code = Chol) 134 [facility] TaylorZsermzzLROZRY1049-12-99 16:12:00 Test Item Value Reference Range Interpretation Comments HDL (test code = HDL) 54 [facility] TaylorKdblkwvFKZGUC0972-53-41 16:12:00 Test Item Value Reference Range Interpretation Comments CHD Risk (test code = CHD Risk) 2.48 1 3.90-5.80 [facility] TaylorOtwrnajCKDPFU2453-52-95 16:12:00 Test Item Value Reference Range Interpretation Comments LDL (Calculated) (test code = LDL 67 (Calculated)) [facility] HospitalFbywjbeBQVTCK2812-56-49 16:12:00 Test Item Value Reference Range Interpretation Comments VLDL (test code = VLDL) 13 1 [facility] TaylorPARATHYROID EOGPDKT3029-87-36 16:12:00 Test Item Value Reference Range Interpretation Comments Ca Ion WB (test code = Ca Ion WB) 1.18 1.05-1.25 [facility] ZWJSXKT8611-95-04 16:12:00 Test Item Value Reference Range Interpretation Comments Ca Norm WB (test code = Ca Norm WB) 1.22 1.05-1.25 [facility] TaylorCHEM UZAEA1107-77-98 16:12:00 Test Item Value Reference Range Interpretation Comments Magnesium Lvl (test code = Magnesium 1.9 1.8-2.4 Lvl) [facility] TaylorPassionTag IZCQU5298-92-75 16:12:00 Test Item Value Reference Range Interpretation Comments Phosphorus (test code = Phosphorus) 4.8 2.5-4.5 [facility]jryalqNUKLTLTBCK0291-[facility]-81 16:12:00 Test Item Value Reference Range Interpretation Comments PT (test code = PT) 13.9 s 12.0-14.7 [facility] HospitalGipxzdpEKPROQQQRS3046-50-01 16:12:00 Test Item Value Reference Range Interpretation Comments INR (test code = INR) 1.07 1 0.85-1.17 [facility] HospitalSylcrwqSXKNJYEQKH4996-60-51 16:12:00 Test Item Value Reference Range Interpretation Comments PTT (test code = PTT) 28.3 s 22.9-35.8 [facility] PasoOiudgzaEVHPBGLVDH9731-14-92 16:12:00 Test Item Value Reference Range Interpretation Comments Fibrinogen Lvl (test code = Fibrinogen 436 230-510 Lvl) [facility] TaylorSvhapbdVOPBRQ0293-70-64 16:12:00 Test Item Value Reference Range Interpretation Comments Trig (test code = Trig) 66 [facility] PasoVmcfxyeOATMVQ8874-27-72 16:12:00 Test Item Value Reference Range Interpretation Comments Chol (test code = Chol) 134 [facility] PasoSvrcozuAHVOWL9029-17-37 16:12:00 Test Item Value Reference Range Interpretation Comments HDL (test code = HDL) 54 [facility] TaylorAenngvjEZOFQP9423-77-64 16:12:00 Test Item Value Reference Range Interpretation Comments CHD Risk (test code = CHD Risk) 2.48 1 3.90-5.80 [facility] TaylorRhqavngELERBX1449-75-87 16:12:00 Test Item Value Reference Range Interpretation Comments LDL (Calculated) (test code = LDL 67 (Calculated)) [facility] TaylorIxuvtajDQYZLT6932-41-68 16:12:00 Test Item Value Reference Range Interpretation Comments VLDL (test code = VLDL) 13 1 [facility] PasoannPARATHYROID AFHYKFY5239-15-51 16:12:00 Test Item Value Reference Range Interpretation Comments Ca Ion WB (test code = Ca Ion WB) 1.18 1.05-1.25 [facility] TaylorPARATHYROID UKNGQUF2803-41-30 16:12:00 Test Item Value Reference Range Interpretation Comments Ca Norm WB (test code = Ca Norm WB) 1.22 1.05-1.25 [facility] TaylorCHEM VKUTX4209-39-41 16:12:00 Test Item Value Reference Range Interpretation Comments Magnesium Lvl (test code = Magnesium 1.9 1.8-2.4 Lvl) [facility] TaylorCHEM QIDQE7910-06-39 16:12:00 Test Item Value Reference Range Interpretation Comments Phosphorus (test code = Phosphorus) 4.8 2.5-4.5 [facility] HospitalQwhhsxsMLKIHTJNLK2457-78-17 16:12:00 Test Item Value Reference Range Interpretation Comments PT (test code = PT) 13.9 s 12.0-14.7 [facility] HospitalNafskdySIIJMBOZHJ5132-30-79 16:12:00 Test Item Value Reference Range Interpretation Comments INR (test code = INR) 1.07 1 0.85-1.17 [facility] HospitalMpadjshLCWAHQBDRZ1739-33-60 16:12:00 Test Item Value Reference Range Interpretation Comments PTT (test code = PTT) 28.3 s 22.9-35.8 [facility] HospitalEcxsnfbVHUSKDNBHC6906-95-84 16:12:00 Test Item Value Reference Range Interpretation Comments Fibrinogen Lvl (test code = Fibrinogen 436 230-510 Lvl) [facility] HospitalCdhasfdZYETPM7188-55-89 16:12:00 Test Item Value Reference Range Interpretation Comments Trig (test code = Trig) 66 [facility] HospitalMlwrtxkBMQFYI3590-44-48 16:12:00 Test Item Value Reference Range Interpretation Comments Chol (test code = Chol) 134 [facility] HospitalBxpvufpKTGOOM5450-23-68 16:12:00 Test Item Value Reference Range Interpretation Comments HDL (test code = HDL) 54 [facility] HospitalOyqdxsqAPRQXR0151-50-00 16:12:00 Test Item Value Reference Range Interpretation Comments CHD Risk (test code = CHD Risk) 2.48 1 3.90-5.80 [facility] HospitalJgkudfdGCXGIQ6856-89-97 16:12:00 Test Item Value Reference Range Interpretation Comments LDL (Calculated) (test code = LDL 67 (Calculated)) [facility] HospitalLfdfjkpKHFIJN6536-76-13 16:12:00 Test Item Value Reference Range Interpretation Comments VLDL (test code = VLDL) 13 1 [facility] TaylorPARATHYROID OTAWJPX0146-21-70 16:12:00 Test Item Value Reference Range Interpretation Comments Ca Ion WB (test code = Ca Ion WB) 1.18 1.05-1.25 [facility]ATHY[facility]ID HPFYNIF7277-62-98 16:12:00 Test Item Value Reference Range Interpretation Comments Ca Norm WB (test code = Ca Norm WB) 1.22 1.05-1.25 [facility]EikkipoHLSZXIBJHGWO8754-29-00 12:16:00 Test Item Value Reference Range Interpretation Comments POC Sodium (test code = POC Sodium) 139 135-145 [facility] HospitalZhjowiwKQQMBTWEJWBT4155-26-07 12:16:00 Test Item Value Reference Range Interpretation Comments POC Potassium (test code = POC 4.9 3.5-5.1 Potassium) [facility] HospitalBndozfjMALXIBHBCVDR1782-96-37 12:16:00 Test Item Value Reference Range Interpretation Comments POC Chloride (test code = POC Chloride) 102 95-109 [facility] HospitalPxwgzraKWURJLSGAJRA2902-32-24 12:16:00 Test Item Value Reference Range Interpretation Comments POC Carbon Dioxide (test code = POC 31 24-32 Carbon Dioxide) [facility] HospitalXcxjygsVVXARQAVDXXU3271-94-33 12:16:00 Test Item Value Reference Range Interpretation Comments POC BUN (test code = POC BUN) 24 7-22 [facility] HospitalCyfouwlLCSAXDHFHYOK1225-14-01 12:16:00 Test Item Value Reference Range Interpretation Comments POC Creatinine (test code = POC 0.5 0.5-1.4 Creatinine) [facility] HospitalQofosefGIATMGOXUJFI0877-59-42 12:16:00 Test Item Value Reference Range Interpretation Comments POC Glucose (test code = POC Glucose) 79 70-99 [facility] HospitalCazyjflJYTEWSIHPFET3601-26-65 12:16:00 Test Item Value Reference Range Interpretation Comments POC Ion Ca (test code = POC Ion Ca) 1.22 1.05-1.25 [facility] HospitalFibimmzKQSABSEJDTXC5521-44-12 12:16:00 Test Item Value Reference Range Interpretation Comments POC Hemoglobin (test code = POC 13.9 12.0-16.0 Hemoglobin) [facility] HospitalUmkqpjxHESCHNZRIHYS3072-33-91 12:16:00 Test Item Value Reference Range Interpretation Comments POC Hematocrit (test code = POC 41.0 36.0-48.0 Hematocrit) [facility] HospitalPotycjiKXHFYZHUDMRP5966-51-75 12:16:00 Test Item Value Reference Range Interpretation Comments POC AGAP (test code = POC AGAP) 12.0 10.0-20.0 [facility] HospitalCtayfjnUCDZIFZFMLOQ8361-44-74 12:16:00 Test Item Value Reference Range Interpretation Comments POC Disclaimer (test code See Note = POC Disclaimer) *NA*(11/18/19 7:16 AM) [facility] HospitalWsqpwznDCHNMNVOTAUB7391-33-04 12:16:00 Test Item Value Reference Range Interpretation Comments POC Sodium (test code = POC Sodium) 139 135-145 [facility] HospitalDvyfcosXZCZJLIMCLFS8354-82-48 12:16:00 Test Item Value Reference Range Interpretation Comments POC Potassium (test code = POC 4.9 3.5-5.1 Potassium) [facility] HospitalLopoiosEJFXLVMZVFLZ3693-03-20 12:16:00 Test Item Value Reference Range Interpretation Comments POC Chloride (test code = POC Chloride) 102 95-109 [facility] HospitalIdzztrnTTUBXAULCDSW1883-56-95 12:16:00 Test Item Value Reference Range Interpretation Comments POC Carbon Dioxide (test code = POC 31 24-32 Carbon Dioxide) [facility] HospitalVulldstBVJBZBVTBKIG0692-27-79 12:16:00 Test Item Value Reference Range Interpretation Comments POC BUN (test code = POC BUN) 24 7-22 [facility] HospitalMlpabujTMTHWQBXEGBP7606-05-03 12:16:00 Test Item Value Reference Range Interpretation Comments POC Creatinine (test code = POC 0.5 0.5-1.4 Creatinine) [facility] HospitalJcxlytjQNXRXXLUNDJI3613-81-88 12:16:00 Test Item Value Reference Range Interpretation Comments POC Glucose (test code = POC Glucose) 79 70-99 [facility] HospitalOagjunwWDHOUFGHGWXM0168-73-69 12:16:00 Test Item Value Reference Range Interpretation Comments POC Ion Ca (test code = POC Ion Ca) 1.22 1.05-1.25 [facility] HospitalKuccirnISVYWSXZOQFA4327-19-53 12:16:00 Test Item Value Reference Range Interpretation Comments POC Hemoglobin (test code = POC 13.9 12.0-16.0 Hemoglobin) [facility] HospitalMprhnfoPDUEFOUOZDIR3894-34-41 12:16:00 Test Item Value Reference Range Interpretation Comments POC Hematocrit (test code = POC 41.0 36.0-48.0 Hematocrit) [facility] HospitalEgorrjgVDNJYKQUYRTW9599-11-21 12:16:00 Test Item Value Reference Range Interpretation Comments POC AGAP (test code = POC AGAP) 12.0 10.0-20.0 [facility] HospitalMdxkequXZNVSODLQUAR8514-55-05 12:16:00 Test Item Value Reference Range Interpretation Comments POC Disclaimer (test code See Note = POC Disclaimer) *NA*(11/18/19 7:16 AM) [facility] HospitalQsgvbtzZLCGFRESVNRE7879-86-94 12:16:00 Test Item Value Reference Range Interpretation Comments POC Sodium (test code = POC Sodium) 139 135-145 [facility] HospitalAkktnmeWXIAEDMKYIZP3705-06-37 12:16:00 Test Item Value Reference Range Interpretation Comments POC Potassium (test code = POC 4.9 3.5-5.1 Potassium) [facility] HospitalBrklmhlYQZMTEENOEAV3584-21-94 12:16:00 Test Item Value Reference Range Interpretation Comments POC Chloride (test code = POC Chloride) 102 95-109 [facility] HospitalFcdljugWPXCEFPVLUKE8610-21-40 12:16:00 Test Item Value Reference Range Interpretation Comments POC Carbon Dioxide (test code = POC 31 24-32 Carbon Dioxide) [facility] HospitalOlxglqvOKYPWGYCIMKH5919-96-44 12:16:00 Test Item Value Reference Range Interpretation Comments POC BUN (test code = POC BUN) 24 7-22 [facility] HospitalEhmacgqYVZHYDTEOGPO7543-35-12 12:16:00 Test Item Value Reference Range Interpretation Comments POC Creatinine (test code = POC 0.5 0.5-1.4 Creatinine) [facility] HospitalTtivztbHDHSOTXBCEQN2108-66-79 12:16:00 Test Item Value Reference Range Interpretation Comments POC Glucose (test code = POC Glucose) 79 70-99 [facility] HospitalUtifgxuDIJYSILUFOXD5906-18-37 12:16:00 Test Item Value Reference Range Interpretation Comments POC Ion Ca (test code = POC Ion Ca) 1.22 1.05-1.25 [facility] HospitalQgiqtpaNRZFUPDRPJBM1741-32-73 12:16:00 Test Item Value Reference Range Interpretation Comments POC Hemoglobin (test code = POC 13.9 12.0-16.0 Hemoglobin) [facility] HospitalZkevjoqHOWRHAPQYQEI7382-99-68 12:16:00 Test Item Value Reference Range Interpretation Comments POC Hematocrit (test code = POC 41.0 36.0-48.0 Hematocrit) [facility] HospitalNwvebdaBRPBXYTLEQCC8143-07-14 12:16:00 Test Item Value Reference Range Interpretation Comments POC AGAP (test code = POC AGAP) 12.0 10.0-20.0 [facility] HospitalQekusiuYIHUSOJYFINM8981-75-43 12:16:00 Test Item Value Reference Range Interpretation Comments POC Disclaimer (test code See Note = POC Disclaimer) *NA*(11/18/19 7:16 AM) [facility] [employer] [id number] 11:55:00 Test Item Value Reference Range Interpretation Comments ABO/Rh (test code = ABO/Rh) A POS [facility] [employer] RJIIKUK7594-31-13 11:55:00 Test Item Value Reference Range Interpretation Comments Antibody Scrn (test Negative (11/18/19 6:55 code = Antibody Scrn) AM) [facility]Gr[facility] [employer] [facility] OGLWXRI2893-24-91 11:55:00 Test Item Value Reference Range Interpretation Comments ABO/Rh (test code = ABO/Rh) A POS [facility] [employer] [facility] KJLSZMX5104-46-25 11:55:00 Test Item Value Reference Range Interpretation Comments Antibody Scrn (test Negative (11/18/19 6:55 code = Antibody Scrn) AM) [facility] PasoAnal[facility] [employer] [facility] VZYRSWC5128-90-55 11:55:00 Test Item Value Reference Range Interpretation Comments ABO/Rh (test code = ABO/Rh) A POS [facility] [employer] [facility] [id number] 11:55:00 Test Item Value Reference Range Interpretation Comments Antibody Scrn (test Negative (11/18/19 6:55 code = Antibody Scrn) AM) [facility] PasoS[facility] [employer] - RBQFIDJF8142-85-21 20:23:00 Test Item Value Reference Range Interpretation Comments MRSA by PCR (test Negative (11/14/19 3:23 code = MRSA by PCR) PM) [facility] [employer] - GLNDJIYZ9332-07-37 20:23:00 Test Item Value Reference Range Interpretation Comments MRSA by PCR (test Negative (11/14/19 3:23 code = MRSA by PCR) PM) [facility] [employer] - [id number] 20:23:00 Test Item Value Reference Range Interpretation Comments MRSA by PCR (test Negative (11/14/19 3:23 code = MRSA by PCR) PM) [facility] PasoLoan[facility] [id number] 20:12:00 Test Item Value Reference Range Interpretation Comments ABO/Rh (test code = ABO/Rh) A POS [facility] [employer] [id number] 20:12:00 Test Item Value Reference Range Interpretation Comments Antibody Scrn (test Negative (11/14/19 3:12 code = Antibody Scrn) PM) [facility] [employer] [id number] 20:12:00 Test Item Value Reference Range Interpretation Comments Total Protein (test code = Total 7.5 6.4-8.4 Protein) [facility] [employer] [id number] 20:12:00 Test Item Value Reference Range Interpretation Comments Albumin Lvl (test code = Albumin Lvl) 3.5 3.5-5.0 [facility] NPYGZ7438-72-92 20:12:00 Test Item Value Reference Range Interpretation Comments ALT (test code = ALT) 19 See_Comment [Auto mated message] The system which ge nerated this result transmit roberto carlos reference range : <=65. The reference range was not used to interpr et this result as tyler l/abnormal. [facility]2020-03-09 20:12:00 Test Item Value Reference Range Interpretation Comments AST (test code = AST) 15 See_Comment [Auto mated message] The system which ge nerated this result transmit roberto carlos reference range : <=37. The reference range was not used to interpr et this result as tyler l/abnormal. [facility]2020-03-09 20:12:00 Test Item Value Reference Range Interpretation Comments Alk Phos (test code = Alk Phos) 74 39-136 [facility] [employer] [id number] 20:12:00 Test Item Value Reference Range Interpretation Comments Bili Total (test code = Bili Total) 0.2 0.2-1.3 [facility] [employer]2020-03-09 20:12:00 Test Item Value Reference Range Interpretation Comments B/C Ratio (test code = B/C Ratio) 17 1 6-25 [facility] [employer]2020-03-09 20:12:00 Test Item Value Reference Range Interpretation Comments Globulin (test code = Globulin) 4.0 2.7-4.2 [facility] [employer]2020-03-09 20:12:00 Test Item Value Reference Range Interpretation Comments A/G Ratio (test code = A/G Ratio) 0.9 1 0.7-1.6 [facility] WviqlbvUSYDTVDZCS3484-28-20 20:12:00 Test Item Value Reference Range Interpretation Comments PT (test code = PT) 12.6 s 12.0-14.7 [facility] QhisdthPCCISJNSOB8535-17-36 20:12:00 Test Item Value Reference Range Interpretation Comments INR (test code = INR) 0.94 1 0.85-1.17 [facility] [employer] [id number] 20:12:00 Test Item Value Reference Range Interpretation Comments ABO/Rh (test code = ABO/Rh) A POS [facility] [employer] [id number] 20:12:00 Test Item Value Reference Range Interpretation Comments Antibody Scrn (test Negative (11/14/19 3:12 code = Antibody Scrn) PM) [facility]2020-03-09 20:12:00 Test Item Value Reference Range Interpretation Comments Total Protein (test code = Total 7.5 6.4-8.4 Protein) [facility]2020-03-09 20:12:00 Test Item Value Reference Range Interpretation Comments Albumin Lvl (test code = Albumin Lvl) 3.5 3.5-5.0 [facility]2020-03-09 20:12:00 Test Item Value Reference Range Interpretation Comments ALT (test code = ALT) 19 See_Comment [Auto mated message] The system which ge nerated this result transmit roberto carlos reference range : <=65. The reference range was not used to interpr et this result as tyler l/abnormal. [facility]2020-03-09 20:12:00 Test Item Value Reference Range Interpretation Comments AST (test code = AST) 15 See_Comment [Auto mated message] The system which ge nerated this result transmit roberto carlos reference range : <=37. The reference range was not used to interpr et this result as tyler l/abnormal. [facility]2020-03-09 20:12:00 Test Item Value Reference Range Interpretation Comments Alk Phos (test code = Alk Phos) 74 39-136 [facility] TaylorPassion[facility] [id number] 20:12:00 Test Item Value Reference Range Interpretation Comments Bili Total (test code = Bili Total) 0.2 0.2-1.3 [facility]2020-03-09 20:12:00 Test Item Value Reference Range Interpretation Comments B/C Ratio (test code = B/C Ratio) 17 1 6-25 [facility]2020-03-09 20:12:00 Test Item Value Reference Range Interpretation Comments Globulin (test code = Globulin) 4.0 2.7-4.2 [facility] TaylorPass[facility] [id number] 20:12:00 Test Item Value Reference Range Interpretation Comments A/G Ratio (test code = A/G Ratio) 0.9 1 0.7-1.6 [facility]HxyxmfrMALFFXRYVZ8515-06-02 20:12:00 Test Item Value Reference Range Interpretation Comments PT (test code = PT) 12.6 s 12.0-14.7 [facility] TaylorZvuhudoQRAMARKQCS5828-07-56 20:12:00 Test Item Value Reference Range Interpretation Comments INR (test code = INR) 0.94 1 0.85-1.17 [facility] [employer] [id number] 20:12:00 Test Item Value Reference Range Interpretation Comments ABO/Rh (test code = ABO/Rh) A POS [facility] [employer] [id number] 20:12:00 Test Item Value Reference Range Interpretation Comments Antibody Scrn (test Negative (11/14/19 3:12 code = Antibody Scrn) PM) [facility] [employer] [id number] 20:12:00 Test Item Value Reference Range Interpretation Comments Total Protein (test code = Total 7.5 6.4-8.4 Protein) [facility] [employer] [id number] 20:12:00 Test Item Value Reference Range Interpretation Comments Albumin Lvl (test code = Albumin Lvl) 3.5 3.5-5.0 [facility] [employer] [id number] 20:12:00 Test Item Value Reference Range Interpretation Comments ALT (test code = ALT) 19 See_Comment [Auto mated message] The system which ge nerated this result transmit roberto carlos reference range : <=65. The reference range was not used to interpr et this result as tyler l/abnormal. [place] [id number] 20:12:00 Test Item Value Reference Range Interpretation Comments AST (test code = AST) 15 See_Comment [Auto mated message] The system which ge nerated this result transmit roberto carlos reference range : <=37. The reference range was not used to interpr et this result as tyler l/abnormal. [employer]2020-03-09 20:12:00 Test Item Value Reference Range Interpretation Comments Alk Phos (test code = Alk Phos) 74 39-136 [facility] [employer]2020-03-09 20:12:00 Test Item Value Reference Range Interpretation Comments Bili Total (test code = Bili Total) 0.2 0.2-1.3 [facility] [employer] [id number] 20:12:00 Test Item Value Reference Range Interpretation Comments B/C Ratio (test code = B/C Ratio) 17 1 6-25 [facility]2020-03-09 20:12:00 Test Item Value Reference Range Interpretation Comments Globulin (test code = Globulin) 4.0 2.7-4.2 [facility] [id number] 20:12:00 Test Item Value Reference Range Interpretation Comments A/G Ratio (test code = A/G Ratio) 0.9 1 0.7-1.6 [id number] 20:12:00 Test Item Value Reference Range Interpretation Comments PT (test code = PT) 12.6 s 12.0-14.7 [id number] 20:12:00 Test Item Value Reference Range Interpretation Comments INR (test code = INR) 0.94 1 0.85-1.17 [facility]
[2022-09-02 17:16] LABS: Absolute Lymphocytes (CBC) 2.4 K/uL (0.7-4.9); Hematocrit 37.5 % (36.0-45.0); Lymphocytes % 18.6 % (15.3-44.8); MCV 87.6 fL (80-100); MPV 7.2 fL (7.6-11.3); RBC Red Blood Cell Count 4.28 M/uL (3.86-4.86)
[2022-09-02] MEDS ORDERED: FAMOTIDINE 20 MG/2 ML VIAL IV ONE (17:16)
[2022-09-02] MEDS ORDERED: ASPIRIN 81 MG CHEWABLE TABLET ONE (17:16)
[2022-09-02] MEDS ORDERED: NA CHLORIDE 0.9% 1,000 ML ONE (17:16)
[2022-09-02 17:18] LABS: Protime INR 1.13
[2022-09-02 17:22] LABS: SARS-CoV-2 Antigen Rapid Res Negative (Negative)
--- NOTE | 2022-09-02 17:25 | ER ---
Nurse's Notes [facility] Name: Charlotte Ruvalcaba Age: 57 yrs Sex: Female : 1965 Arrival Date: 09/02/2022 Time: 16:11 Bed 18 Private MD: Naseem Sanchez E Diagnosis: Essential (primary) hypertension;Chest pain, unspecified;Type 1 diabetes mellitus with hyperglycemia;UTI/ Urinary tract infection, site not specified Presentation: 09/02 16:33 Chief complaint: Patient states: Chest pain that has been continuous since Thursday. Pt ss also reports that she has had a cough and sore throat for a few days. Denies fever. Coronavirus screen: Client denies travel out of the [place] in the last 14 days. Ebola Screen: Patient denies exposure to infectious person. Patient denies travel to an Ebola-affected area in the 21 days before illness onset. Initial Sepsis Screen: Does the patient meet any 2 criteria? No. Patient's initial sepsis screen is negative. Does the patient have a suspected source of infection? No. Patient's initial sepsis screen is negative. Risk Assessment: Do you want to hurt yourself or someone else? Patient reports no desire to harm self or others. Onset of symptoms was September 01, 2022. 16:33 Method Of Arrival: Ambulatory ss 16:33 Acuity: RASHAD 3 ss Historical: - Allergies: 16:35 NKDA; ss - PMHx: 16:35 COPD; Gout; Diabetes - IDDM; CAD; Hypertension; Asthma; Hypothyroidism; ss - PSHx: 16:35 back sx; Coronary Stent; hysterectomy; knee replacement; ss - Immunization history:: Client reports receiving the 2nd dose of the Covid vaccine. - Social history:: Smoking status: Patient/guardian denies using tobacco, but has a distant history of tobacco abuse. - Family history:: not pertinent. Screenin:00 [facility] ED Fall Risk Assessment (Adult) History of falling in the last 3 months, jl7 including since admission No falls in past 3 months (0 pts) Confusion or Disorientation No (0 pts) Intoxicated or Sedated No (0 pts) Impaired Gait No (0 pts) Mobility Assist Device Used No (0 pt) Altered Elimination No (0 pt) Score/Fall Risk Level 0 - 2 = Low Risk Oriented to surroundings. Abuse screen: Denies threats or abuse. Denies injuries from another. Nutritional screening: No deficits noted. Tuberculosis screening: No symptoms or risk factors identified. Assessment: 17:00 General: Appears in no apparent distress. uncomfortable, Behavior is calm, cooperative, jl7 appropriate for age. Pain: Complains of pain in anterior aspect of left upper chest Pain does not radiate. Pain currently is 10 out of 10 on a pain scale. Quality of pain is described as sharp, Pain began 2-3 days ago. Is intermittent. Neuro: Level of Consciousness is awake, alert, obeys commands, Oriented to person, place, time, situation. Cardiovascular: Patient's skin is warm and dry. Rhythm is sinus rhythm. Respiratory: Airway is patent Respiratory effort is even, unlabored, Respiratory pattern is regular, symmetrical. : Reports foul smell to urine. Derm: Skin is pink, warm \T\ dry. 18:00 Reassessment: Patient appears in no apparent distress at this time. Patient and/or jl7 family updated on plan of care and expected duration. Pain level reassessed. Patient is alert, oriented x 3, equal unlabored respirations, skin warm/dry/pink. pain rated 6/10 at this time. 19:20 General: Appears comfortable, Behavior is calm, cooperative. Pain: Complains of pain in ha1 anterior aspect of left upper chest Pain does not radiate. Pain currently is 4 out of 10 on a pain scale. Quality of pain is described as pressure. Neuro: Level of Consciousness is awake, alert, obeys commands, Oriented to person, place, time, Appropriate for age. Cardiovascular: Patient's skin is warm and dry. Rhythm is sinus rhythm. Respiratory: Airway is patent Trachea midline Respiratory effort is even, unlabored, Respiratory pattern is regular, symmetrical. GI: No signs and/or symptoms were reported involving the gastrointestinal system. Abdomen is non-distended, obese, Bowel sounds present X 4 quads. : Reports foul smell of urine. EENT: No deficits noted. No signs and/or symptoms were reported regarding the EENT system. Derm: Skin is healthy with good turgor, Skin is dry, Skin is normal. Musculoskeletal: Circulation, motion, and sensation intact. Range of motion: intact in all extremities. Vital Signs: 16:33 BP 137 / 63; Pulse 75; Resp 20; Temp 98.2(O); Pulse Ox 98% on R/A; Weight 86.18 kg; ss Height 5 ft. 4 in. (162.56 cm); Pain 10/10; 18:26 BP 146 / 60; Pulse 63; Resp 15; Pulse Ox 98% ; Pain 6/10; jl7 19:20 BP 119 / 47; Pulse 82; Resp 17 S; Pulse Ox 98% on 2 lpm NC; ha1 16:33 Body Mass Index 32.61 (86.18 kg, 162.56 cm) ED Course: 16:11 Patient arrived in ED. am2 16:11 Naseem Sanchez MD is Private Physician. am2 16:26 Efren Puente MD is Attending Physician. edilson 16:35 Triage completed. ss 16:35 Arm band placed on right wrist. 16:38 Dina Jordan, ALOK is Primary Nurse. jl7 16:45 Initial lab(s) drawn, by ED staff, sent to lab. EKG done, by ED staff, reviewed by anand Puente MD. Inserted saline lock: 20 gauge in left antecubital area, using aseptic technique. Blood collected. 17:00 Patient has correct armband on for positive identification. Client placed on continuous jl7 cardiac and pulse oximetry monitoring. NIBP monitoring applied. Warm blanket given. 17:24 Brown Carey MD is Hospitalizing Provider. [facility] 17:38 Chest Single View In Process Unspecified. EDMS 18:00 Missed attempt(s): 22 gauge in left hand. Patient maintains SpO2 saturation greater jl7 than 95% on room air. 18:22 Inserted saline lock: 22 gauge in right wrist, using aseptic technique. jl7 19:20 No provider procedures requiring assistance completed. ha1 19:20 Patient admitted, IV remains in place. ha1 Administered Medications: 17:30 Drug: Pepcid (famotidine) 20 mg Route: IVP; Site: left antecubital; jl7 19:39 Follow up: Response: No adverse reaction jl7 17:30 Drug: NS 0.9% 1000 ml Route: IV; Rate: 125 ml/hr; Site: left antecubital; jl7 19:40 Follow up: IV Status: Infusion continued upon admission jl7 17:33 Drug: Zofran (Ondansetron) 4 mg Route: IVP; Site: left antecubital; jl7 19:40 Follow up: Response: No adverse reaction jl7 17:35 Drug: morphine 4 mg Route: IVP; Infused Over: 4 mins; Site: left antecubital; jl7 19:40 Follow up: Response: No adverse reaction jl7 17:49 Drug: Aspirin Chewable Tablet 162 mg Route: PO; jl7 19:39 Follow up: Response: No adverse reaction jl7 17:49 Drug: Lopressor (metoprolol TARTRATE) 50 mg Route: PO; jl7 19:40 Follow up: Response: No adverse reaction jl7 19:40 Drug: Lovenox (enoxaparin) 1 mg/kg Route: Sub-Q; Site: right lower abdomen; ha1 20:10 Follow up: Response: No adverse reaction ha1 19:44 Drug: Rocephin (cefTRIAXone) 1 grams Route: IV; Rate: per protocol; Site: left ha1 antecubital; Medication: 18:27 VIS not applicable for this client. jl7 Outcome: 17:25 Decision to Hospitalize by Provider. [facility] 19:20 Condition: stable ha1 19:20 Admitted to ER Hold. Please see [facility] for further documentation. ha1 19:20 Discharge instructions given to patient, Instructed on the need for admit, Demonstrated understanding of instructions. 09/03 08:59 Patient left the ED. ss Signatures: Dispatcher [employer] EDEfren Olivia MD MD cha Smirch, Shelby, RN RN ss Dina Jordan RN RN jl7 Sheila Peralta Heidy, RN RN ha1 Corrections: (The following items were deleted from the chart) 09/02 18:26 17:00 Reassessment: Patient appears in no apparent distress at this time. Patient jl7 and/or family updated on plan of care and expected duration. Pain level reassessed. Patient is alert, oriented x 3, equal unlabored respirations, skin warm/dry/pink. pain rated 6/10 at this time. jl7
--- NOTE | 2022-09-02 17:26 | EDPHYS ---
Physician Documentation [facility] Name: Charlotte Ruvalcaba Age: 57 yrs Sex: Female : 1965 Arrival Date: 09/02/2022 Time: 16:11 Bed 18 Private MD: Naseem Sanchez E ED Physician Efren Puente HPI: 09/02 17:19 This 57 yrs old Black Female presents to ER via Ambulatory with complaints of Chest edilson Tightness, Back Pain. 17:19 The patient or guardian reports chest pain that is located primarily in the anterior edilson chest wall, bilaterally. Onset: 3 day(s) ago. The pain radiates to back. Associated signs and symptoms: Pertinent positives: dizziness, shortness of breath. The chest pain is described as a heaviness, a pressure. Duration: The patient or guardian reports multiple episodes, that wax and wane. Severity of pain: At its worst the pain was moderate in the emergency department the pain has improved mildly. The patient has experienced similar episodes in the past, several times. Historical: - Allergies: 16:35 NKDA; ss - PMHx: 16:35 COPD; Gout; Diabetes - IDDM; CAD; Hypertension; Asthma; Hypothyroidism; ss - PSHx: 16:35 back sx; Coronary Stent; hysterectomy; knee replacement; ss - Immunization history:: Client reports receiving the 2nd dose of the Covid vaccine. - Social history:: Smoking status: Patient/guardian denies using tobacco, but has a distant history of tobacco abuse. - Family history:: not pertinent. ROS: 17:19 Constitutional: Negative for fever, chills, and weight loss, Eyes: Negative for injury, edilson pain, redness, and discharge, ENT: Negative for injury, pain, and discharge, Neck: Negative for injury, pain, and swelling, Respiratory: Negative for shortness of breath, cough, wheezing, and pleuritic chest pain, Abdomen/GI: Negative for abdominal pain, nausea, vomiting, diarrhea, and constipation, Back: Negative for injury and pain, : Negative for injury, bleeding, discharge, and swelling, MS/Extremity: Negative for injury and deformity, Skin: Negative for injury, rash, and discoloration, Neuro: Negative for headache, weakness, numbness, tingling, and seizure, Psych: Negative for depression, anxiety, suicide ideation, homicidal ideation, and hallucinations, Allergy/Immunology: Negative for hives, rash, and allergies, Endocrine: Negative for neck swelling, polydipsia, polyuria, polyphagia, and marked weight changes, Hematologic/Lymphatic: Negative for swollen nodes, abnormal bleeding, and unusual bruising. 17:19 Cardiovascular: Positive for chest pain, of the chest. 17:19 MS/extremity: Negative for acute changes. Exam: 17:19 Constitutional: This is a well developed, well nourished patient who is awake, alert, edilson and in no acute distress. Head/Face: Normocephalic, atraumatic. Eyes: Pupils equal round and reactive to light, extra-ocular motions intact. Lids and lashes normal. Conjunctiva and sclera are non-icteric and not injected. Cornea within normal limits. Periorbital areas with no swelling, redness, or edema. ENT: Nares patent. No nasal discharge, no septal abnormalities noted. Tympanic membranes are normal and external auditory canals are clear. Oropharynx with no redness, swelling, or masses, exudates, or evidence of obstruction, uvula midline. Mucous membranes moist. Neck: Trachea midline, no thyromegaly or masses palpated, and no cervical lymphadenopathy. Supple, full range of motion without nuchal rigidity, or vertebral point tenderness. No Meningismus. Chest/axilla: Normal chest wall appearance and motion. Nontender with no deformity. No lesions are appreciated. Cardiovascular: Regular rate and rhythm with a normal S1 and S2. No gallops, murmurs, or rubs. Normal PMI, no JVD. No pulse deficits. Respiratory: Lungs have equal breath sounds bilaterally, clear to auscultation and percussion. No rales, rhonchi or wheezes noted. No increased work of breathing, no retractions or nasal flaring. Abdomen/GI: Soft, non-tender, with normal bowel sounds. No distension or tympany. No guarding or rebound. No evidence of tenderness throughout. Back: No spinal tenderness. No costovertebral tenderness. Full range of motion. Skin: Warm, dry with normal turgor. Normal color with no rashes, no lesions, and no evidence of cellulitis. MS/ Extremity: Pulses equal, no cyanosis. Neurovascular intact. Full, normal range of motion. Neuro: Awake and alert, GCS 15, oriented to person, place, time, and situation. Cranial nerves II-XII grossly intact. Motor strength 5/5 in all extremities. Sensory grossly intact. Cerebellar exam normal. Normal gait. Psych: Awake, alert, with orientation to person, place and time. Behavior, mood, and affect are within normal limits. 17:19 ECG was reviewed by the Attending Physician. Vital Signs: 16:33 BP 137 / 63; Pulse 75; Resp 20; Temp 98.2(O); Pulse Ox 98% on R/A; Weight 86.18 kg; ss Height 5 ft. 4 in. (162.56 cm); Pain 10/10; 18:26 BP 146 / 60; Pulse 63; Resp 15; Pulse Ox 98% ; Pain 6/10; jl7 19:20 BP 119 / 47; Pulse 82; Resp 17 S; Pulse Ox 98% on 2 lpm NC; ha1 16:33 Body Mass Index 32.61 (86.18 kg, 162.56 cm) ss MDM: 16:26 Patient medically screened. edilson 17:22 Differential diagnosis: abnormal EKG, acute myocardial infarction, anxiety, coronary edilson artery disease chest wall pain, congestive heart failure Cholelithiasis costochondritis, hiatal hernia, myocarditis, pancreatitis, peptic ulcer disease, pericarditis, pleurisy, pneumonia, pulmonary embolus, stable angina, unstable angina. HEART Score: History: Moderately Suspicious (1), ECG: Normal (0), Age: > 45 and < 65 years (1), Risk Factors: > or = 3 Risk factors for atherosclerotic disease (2), [Hypercholesterolemia] [Hypertension] [DM] [+ Family HX] [Obesity] Troponin: < or = 1 x Normal Limit (0). The patient was given aspirin in the Emergency Department. The patient's deep vein thrombosis risk score was calculated as follows: Total Score: 0. This patient was found to be at low risk for a deep vein thrombosis by using the Well's assessment criteria. The patient's pulmonary embolism risk score was calculated as follows: Total Score: 0-2 points. This patient was found to be at low risk for a pulmonary embolism by using the Well's assessment criteria. CORBY Risk Score: 1 - Three or more CAD risk factors, 1 - ASA use in past 7 days, TOTAL SCORE = 2. Data reviewed: vital signs, nurses notes, lab test result(s), EKG, radiologic studies, plain films. 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 Test interpretation: by ED physician or midlevel provider: ECG, plain radiologic studies. Counseling: I had a detailed discussion with the patient and/or guardian regarding: the historical points, exam findings, and any diagnostic results supporting the discharge/admit diagnosis, lab results, radiology results, the need for further work-up and treatment in the hospital. 09/02 16:27 Order name: Basic Metabolic Panel; Complete Time: 19:43 [facility] 09/02 16:27 Order name: CBC with Diff; Complete Time: 19:43 [facility] 09/02 16:27 Order name: LFT's; Complete Time: 19:43 [facility] 09/02 16:27 Order name: Magnesium; Complete Time: 19:43 [facility] 09/02 16:27 Order name: NT PRO-BNP; Complete Time: 19:43 [facility] 09/02 16:27 Order name: PT-INR; Complete Time: 19:43 [facility] 09/02 16:27 Order name: Troponin HS; Complete Time: 19:43 [facility] 09/02 16:27 Order name: Lipase; Complete Time: 19:43 [facility] 09/02 16:27 Order name: SARS RAPID; Complete Time: 19:43 [facility] 09/02 17:58 Order name: Urine Dipstick-Ancillary; Complete Time: 19:43 [facility] 09/02 18:21 Order name: Urine Culture [facility] 09/02 21:51 Order name: Glucose, Ancillary Testing; Complete Time: 23:28 [facility] 09/02 23:28 Order name: Troponin High Sensitivity; Complete Time: 23:34 [facility] 09/03 03:45 Order name: CBC with Automated Diff [facility] 09/02 17:13 Order name: Chest Single View; Complete Time: 19:43 [facility] 09/03 04:50 Order name: Basic Metabolic Panel [facility] 09/03 04:50 Order name: Phosphorus [facility] 09/03 04:50 Order name: Troponin High Sensitivity [facility] 09/03 04:50 Order name: Lipid Profile [facility] 09/03 04:50 Order name: T4 Free [facility] 09/03 04:50 Order name: Magnesium [facility] 09/03 04:50 Order name: Thyroid Stimulating Hormone [facility] 09/03 05:10 Order name: Hemoglobin A1c [facility] 09/03 07:42 Order name: Glucose, Ancillary Testing [facility] 09/02 16:27 Order name: EKG; Complete Time: 16:28 [facility] 09/02 16:27 Order name: Cardiac monitoring; Complete Time: 16:38 [facility] 09/02 16:27 Order name: EKG - Nurse/Tech; Complete Time: 16:38 [facility] 09/02 16:27 Order name: IV Saline Lock; Complete Time: 17:04 [facility] 09/02 16:27 Order name: Labs collected and sent; Complete Time: 17:04 [facility] 09/02 16:27 Order name: O2 Per Protocol; Complete Time: 16:38 [facility] 09/02 16:27 Order name: O2 Sat Monitoring; Complete Time: 16:38 [facility] EC:19 Rate is 74 beats/min. Rhythm is regular. QRS [place] is Normal. MS interval is normal. QRS edilson interval is normal. QT interval is normal. No Q waves. T waves are Normal. No ST changes noted. Clinical impression: NSR w/ Non-specific ST/T Changes and No evidence of ischemia. Interpreted by me. Reviewed by me. Administered Medications: 17:30 Drug: Pepcid (famotidine) 20 mg Route: IVP; Site: left antecubital; jl7 19:39 Follow up: Response: No adverse reaction jl7 17:30 Drug: NS 0.9% 1000 ml Route: IV; Rate: 125 ml/hr; Site: left antecubital; jl7 19:40 Follow up: IV Status: Infusion continued upon admission jl7 17:33 Drug: Zofran (Ondansetron) 4 mg Route: IVP; Site: left antecubital; jl7 19:40 Follow up: Response: No adverse reaction jl7 17:35 Drug: morphine 4 mg Route: IVP; Infused Over: 4 mins; Site: left antecubital; jl7 19:40 Follow up: Response: No adverse reaction jl7 17:49 Drug: Aspirin Chewable Tablet 162 mg Route: PO; jl7 19:39 Follow up: Response: No adverse reaction jl7 17:49 Drug: Lopressor (metoprolol TARTRATE) 50 mg Route: PO; jl7 19:40 Follow up: Response: No adverse reaction jl7 19:40 Drug: Lovenox (enoxaparin) 1 mg/kg Route: Sub-Q; Site: right lower abdomen; ha1 20:10 Follow up: Response: No adverse reaction ha1 19:44 Drug: Rocephin (cefTRIAXone) 1 grams Route: IV; Rate: per protocol; Site: left ha1 antecubital; Disposition Summary: 09/02/22 17:25 Hospitalization Ordered Hospitalization Status: Observation edilson Provider: Brown Carey cha Condition: Fair edilson Problem: new edilson Symptoms: have improved edilson Bed/Room Type: Standard edilson Location: Telemetry/MedSurg (observation)(09/03/22 07:20) eb Room Assignment: 219(09/03/22 07:20) eb Diagnosis - Essential (primary) hypertension edilson - Chest pain, unspecified edilson - Type 1 diabetes mellitus with hyperglycemia edilson - UTI/ Urinary tract infection, site not specified edilson Forms: - Medication Reconciliation Form edilson - SBAR form edilson Signatures: Dispatcher [employer] EDMS Efren Puente MD MD cha Mickail, Joel, PA PA jmm Smirch, Shelby, RN RN ss Garcia, Cindy, RN RN cg Leal, Jahala, RN RN jl7 Sandra Solano Heidy, RN RN ha1 Kate Fink PA-C PADangelo sb4 Corrections: (The following items were deleted from the chart) 17:10 16:28 Chest Single View+RAD.RAD.BRZ ordered. EDKS EDMS 22:18 17:25 Telemetry/MedSurg (observation) edilson cg 22:18 17:25 edilson cg 09/03 07:20 09/02 22:18 [facility] ER HOLD cg eb 09/03 07:20 09/02 22:18 ERHOLD- cg eb
[2022-09-02 17:30] LABS: ALT/SGPT 21 U/L (13-56); AST/SGOT 15 U/L (15-37); Albumin 3.3 g/dL (3.4-5.0); Alkaline Phosphatase 92 U/L (45-117); BUN Blood Urea Nitrogen 18 mg/dL (7-18); Bicarbonate 30 mmol/L (21-32); Bilirubin Total 0.2 mg/dL (0.2-1.0); Glomerular Filtration Rate 78 ml/min (=/>90); Glucose Level 73 mg/dL (74-106); Lipase 335 U/L (73-393); Magnesium 1.8 mg/dL (1.6-2.4); NT PRO-BNP 38 pg/mL (<125); Potassium 3.9 mmol/L (3.5-5.1); Protein, Total 7.5 g/dL (6.4-8.2); Sodium Level 136 mmol/L (136-145)
[2022-09-02] MEDS ORDERED: METOPROLOL TAR 50 MG TAB ONE (17:32)
[2022-09-02] MEDS ORDERED: ONDANSETRON 4 MG/2 ML VIAL ONE ×2 (17:33→22:34)
[2022-09-02] MEDS ORDERED: MORPHINE 4 MG/ML SYR ONE ×2 (17:33→22:34)
[2022-09-02] MEDS ORDERED: ENOXAPARIN 80 MG/0.8 ML SQ ONE (17:33)
[2022-09-02 17:39] LABS: Bilirubin Direct < 0.1 mg/dL (0-0.2)
--- NOTE | 2022-09-02 17:53 | RAD REPORT ---
EXAM DESCRIPTION: RAD - Chest Single View - 09/02/2022 5:36 pm CLINICAL HISTORY: CHEST PAIN COMPARISON: Chest Single View dated 10/22/2021; Chest Pa And Lat (2 Views) dated 11/08/2019; Chest Sing le View dated 11/01/2019; Chest Single View dated 10/11/2019; Stone Protocol dated 06/02/2022 FINDINGS: Lines: None. Lungs: No evidence of edema or pneumonia. Pleural: No significant pleural effusions or pneumothorax. Cardiac: The heart size is within normal limits. Mediastinum: Within normal limits. Bones: No acute fractures. Other: None IMPRESSION: No acute cardiopulmonary disease.
[2022-09-02 17:57] LABS: Urine Blood Trace-intact (Negative); Urine Glucose Negative (Negative); Urine Protein Negative (Negative); Urine Specific Gravity 1.015 (1.005-1.030)
[2022-09-02] MEDS ORDERED: CEFTRIAXONE 1000 MG/VIAL ONE (19:37)
[2022-09-02] MEDS ORDERED: NA CHLORIDE 0.9% 50 ML IV ONE (19:37)
--- NOTE | 2022-09-02 20:27 | P.HP ---
Certification for Inpatient Patient admitted to: Observation With expected LOS: <2 Midnights Patient will require the following post-hospital care: None Practitioner: I am a practitioner with admitting privileges, knowledge of patient current condition, hospital course, and medical plan of care. Services: Services provided to patient in accordance with Admission requirements found in Title 42 Section 412.3 of the Code of Federal Regulations Patient History Date of Service: 09/03/22 Reason for admission: Chest Pain History of Present Illness: Patient is a 57 year old female with past medical history of insulin dependent type 2 diabetes, COPD, CAD, hypothyroidism, hypertension, prior TIA, hyperlipidemia and chronic pain who presented to the emergency department with complaints of chest pain. She reports that she has been experiencing the chest pain, which feels like heaviness, for about 2 days now and is associated with dizziness, shortness of breath, cough and sore throat. She states that it radiates to her back. COVID negative. Flu/strep pending. Labs are unremarkable except for WBC 13 and urine positive for UTI. Troponin negative. EKG without any ST changes. Chest xray negative. Pain was temporarily relieved by morphine. She was additionally given aspirin and lovenox. Given her risk factors and cardiac history, ED provider wishes to admit patient for observation for ACS rule out. Allergies No Known Drug Allergies Allergy (Verified 04/10/16 03:23) Unknown Home Medications: Simvastatin [Zocor*] 40 mg PO DAILY 04/10/16 Hydrocodone/Acetaminophen [Hydrocodone-Acetamin 10-325 mg] 1 tab PO Q6H PRN 06/07/17 Victoza 18mg/3ml/Inj Novno 1.8 mg SQ DAILY 06/07/17 estradioL [Estradiol] 1 tab PO DAILY 06/07/17 Albuterol Sulfate [Albuterol Sulfate Hfa] 2 puff IH BID PRN 10/11/19 Amitriptyline HCl 25 mg PO DAILY 10/11/19 Buspirone HCl [Buspar] 10 mg PO DAILY 10/11/19 Esomeprazole Magnesium 40 mg PO DAILY 10/11/19 Gabapentin [Gralise] 600 mg PO DAILY 10/11/19 Insulin Degludec [Tresiba Flextouch U-200] 85 units SQ BEDTIME 10/11/19 Levothyroxine Sodium 50 mcg PO [id number] 10/11/19 Losartan/Hydrochlorothiazide [Losartan-Hctz 100-25 mg Tab] 1 tab PO DAILY 10/11/19 Lubiprostone [Amitiza*] 24 mcg PO DAILY 10/11/19 Magnesium Oxide [Magnesium] 400 mg PO DAILY 10/11/19 Meloxicam 15 mg PO DAILY 10/11/19 Montelukast Sodium [Singulair] 10 mg PO DAILY 10/11/19 Plecanatide [Trulance] 3 mg PO DAILY 10/11/19 Sitagliptin Phosphate [Januvia] 50 mg PO DAILY 10/11/19 methocarbamoL [Methocarbamol] 1 tab PO BID 10/11/19 Amoxicillin/Potassium Clav [Augmentin 875-125 Tablet] 1 each PO BID #14 tablet 10/13/19 - Past Medical/Surgical History Diabetic: Yes -: Asthma -: Hypothyroidism -: Diabetes mellitus type 2 insulin dependent -: Gout -: HTN -: Hyperlipidemia -: Chronic pain -: Former tobacco use -: Hysterectomy -: Appendectomy -: -: Cholecystectomy -: Cardiac cath with stents -: right ankle sx -: dale knee surgery Psychosocial/ Personal History: Patient is . She lives at home. - Family History Father -: GI disease, Cancer Mother -: Heart disease, Hypertension, Diabetes Sister -: Heart disease, Hypertension, Cancer, Seizures - Social History Smoking Status: Former smoker Alcohol use: No CD- Drugs: No Caffeine use: Yes Place of Residence: Home Review of Systems ENT: Throat Pain Respiratory: Cough Cardiovascular: Chest Pain Physical Examination - Vital Signs Temperature: 98.2 F Blood Pressure: 146/60 Pulse: 63 Respirations: 15 Pulse Ox (%): 98 (room air) - Physical Exam General: Alert, In no apparent distress HEENT: Atraumatic, PERRLA, EOMI, Sclerae nonicteric Neck: Supple, 2+ carotid pulse no bruit Respiratory: Clear to auscultation bilaterally, Normal air movement Cardiovascular: Regular rate/rhythm, Normal S1 S2 Gastrointestinal: Normal bowel sounds, No tenderness Musculoskeletal: No tenderness Integumentary: No rashes Neurological: Normal speech, Normal affect - Studies Laboratory Data (last 24 hrs) 09/02/22 17:00: PT 12.4, INR 1.13 09/02/22 17:00: WBC 13.10 H, Hgb 13.1, Hct 37.5, Plt Count 383 09/02/22 17:00: Sodium 136, Potassium 3.9, BUN 18, Creatinine 0.86, Glucose 73 L, Magnesium 1.8, Total Bilirubin 0.2, AST 15, ALT 21, Alkaline Phosphatase 92, Lipase 335 Assessment and Plan - Problems (Diagnosis) (1) CAD (coronary artery disease) Current Visit: Yes Status: Acute Qualifiers: Coronary Disease-Associated Artery/Lesion type: [place] artery [place] vs. 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 insulin use: with long lines operator use Diabetes mellitus complication status: with hyperglycemia Qualified Code(s): E11.65 - Type 2 diabetes mellitus with hyperglycemia; Z79.4 - senior care (current) use of insulin (3) Hypertension Current Visit: Yes Status: Chronic Qualifiers: Hypertension type: primary hypertension Qualified Code(s): I10 - Essential (primary) hypertension (4) UTI (urinary tract infection) Current Visit: Yes Status: Acute Qualifiers: Urinary tract infection type: acute cystitis Hematuria presence: with hematuria Qualified Code(s): N30.01 - Acute cystitis with hematuria (5) COPD (chronic obstructive pulmonary disease) Current Visit: Yes Status: Chronic Qualifiers: COPD type: unspecified COPD Qualified Code(s): J44.9 - Chronic obstructive pulmonary disease, unspecified (6) Hyperlipidemia Current Visit: Yes Status: Chronic Qualifiers: Hyperlipidemia type: mixed hyperlipidemia Qualified Code(s): E78.2 - Mixed hyperlipidemia - Plan Patient is admitted for ACS rule out. Initial troponin negative. Trend q6hx2. Cardiology consult. Echo ordered. Monitor on telemetry. Aspirin and atorvastatin daily. Nitro/morphine PRN chest pain. Lipid panel, TSH, and A1c ordered for the morning. [facility] accu checks with mild sliding scale and diabetic diet. Pend flu and strep test. Monitor and replete electrolytes per protocol. Reconcile and continue home medications. Lovenox for VTE prophylaxis. Full code Discharge Plan: Home Plan to discharge in: 24 Hours - Advance Directives Does patient have a Living Will: No Does patient have a Durable POA for Healthcare: Yes - Code Status/Comfort Care Code Status Assessed: Yes Code Status: Full Code Physician Review: Patient Assessed, Agree with Above Assessment and Plan Critical Care: No Time Spent Managing Pts Care (In Minutes): 50
[2022-09-02] MEDS ORDERED: ACETAMINOPHEN 500 MG TAB PO PRN (21:18)
[2022-09-02] MEDS: ATORVASTATIN 40 MG TAB PO SCH (21:18)
[2022-09-02] MEDS: INSULIN -REGULAR HUMAN 50 UNIT/0.5 ML ML SQ SCH (21:18)
[2022-09-02] MEDS ORDERED: INSULIN -REGULAR HUMAN 50 UNIT/0.5 ML ML ONE (21:56)
[2022-09-02] MEDS ORDERED: ATORVASTATIN 20 MG TAB ONE (21:57)
[2022-09-02] MEDS: MORPHINE 4 MG/ML SYR IV PRN (22:41)
[2022-09-02] MEDS: ONDANSETRON 4 MG/2 ML VIAL IV PRN (22:42)
[2022-09-02 23:33] VITALS: BMI 32.5
[2022-09-03 03:16] LABS: Absolute Lymphocytes (CBC) 2.1 K/uL (0.7-4.9); Hematocrit 43.7 % (36.0-45.0); Lymphocytes % 24.7 % (15.3-44.8); MCV 90.1 fL (80-100); MPV 7.9 fL (7.6-11.3); RBC Red Blood Cell Count 4.85 M/uL (3.86-4.86)
[2022-09-03] MEDS ORDERED: ONDANSETRON 4 MG/2 ML VIAL ONE (04:29)
[2022-09-03] MEDS ORDERED: MORPHINE 4 MG/ML SYR ONE (04:29)
[2022-09-03] MEDS: MORPHINE 4 MG/ML SYR IV PRN ×4 (04:37→17:32)
[2022-09-03] MEDS: ONDANSETRON 4 MG/2 ML VIAL IV PRN (04:38)
[2022-09-03 04:41] LABS: Magnesium 2.3 mg/dL (1.6-2.4); Phosphorus 3.6 mg/dL (2.5-4.9); Potassium 3.6 mmol/L (3.5-5.1); Thyroid Stimulating Hormone 2.06 uIU/mL (0.358-3.740)
[2022-09-03 04:50] LABS: Troponin High Sensitivity 83.5 pg/mL (<58.9)
[2022-09-03] MEDS: INSULIN -REGULAR HUMAN 50 UNIT/0.5 ML ML SQ SCH ×4 (07:30→22:12)
[2022-09-03] MEDS ORDERED: ENOXAPARIN 40 MG/0.4 ML SQ SCH (09:00)
[2022-09-03] MEDS: ENOXAPARIN 100 MG/ML SYR SQ SCH ×2 (09:04→22:12)
[2022-09-03] MEDS: ASPIRIN EC 81 MG TAB PO SCH (09:04)
[2022-09-03] MEDS ORDERED: HYDROCODONE/APAP 10/325 TAB PO PRN (12:38)
[2022-09-03] MEDS ORDERED: METHYLPREDNISOLONE 125 MG INJ IV ONE (13:00)
[2022-09-03] MEDS ORDERED: INFLUENZA VACCINE (for 6+ mo) 0.5 ML DOSE IMVAC ONE (13:00)
[2022-09-03] MEDS ORDERED: PNEUMOCOCCAL VACCINE 0.5 ML IMVAC ONE (13:00)
[2022-09-03] MEDS ORDERED: ALPRAZOLAM 0.5 MG TABLET PO ONE (13:15)
--- NOTE | 2022-09-03 16:28 | P.PN ---
Subjective Date of Service: 09/03/22 Patient has had extensive cardiac work-up for the last few years. Patient has had a stress test done a couple years ago. She had cardiac catheterization done 5 years ago. All the work-up has been unremarkable. She has used for chest pain. I think this is costochondritis. However, her troponin did bump. We will repeat a troponin in the morning. Stress test in the morning as well. Cardiology consultation pending. Review of Systems 10-point ROS is otherwise unremarkable Physical Examination - Vital Signs Temperature: 97.4 F Blood Pressure: 133/61 Pulse: 73 Respirations: 16 Pulse Ox (%): 94 - Physical Exam General: Alert, In no apparent distress HEENT: Atraumatic, PERRLA, EOMI Neck: Supple, JVD not distended Respiratory: Clear to auscultation bilaterally, Normal air movement Cardiovascular: Regular rate/rhythm, Normal S1 S2 Gastrointestinal: Normal bowel sounds, No tenderness Musculoskeletal: No tenderness Integumentary: No rashes Neurological: Normal speech, Normal tone, Normal affect Lymphatics: No axilla or inguinal lymphadenopathy - Studies Laboratory Data (last 24 hrs) 09/02/22 17:00: PT 12.4, INR 1.13 09/02/22 17:00: WBC 13.10 H, Hgb 13.1, Hct 37.5, Plt Count 383 09/02/22 17:00: Sodium 136, Potassium 3.9, BUN 18, Creatinine 0.86, Glucose 73 L, Magnesium 1.8, Total Bilirubin 0.2, AST 15, ALT 21, Alkaline Phosphatase 92, Lipase 335 Medications List Reviewed: Yes Assessment & Plan - Problems (Diagnosis) (1) Elevated troponin Current Visit: Yes Status: Acute (2) Costochondritis Current Visit: Yes Status: Acute (3) COPD (chronic obstructive pulmonary disease) Current Visit: Yes Status: Chronic Qualifiers: COPD type: unspecified COPD Qualified Code(s): J44.9 - Chronic obstructive pulmonary disease, unspecified (4) Diabetes mellitus Current Visit: Yes Status: Chronic Qualifiers: Diabetes mellitus type: type 2 Diabetes mellitus intermediate manager insulin use: with skilled nursing use Diabetes mellitus complication status: with hyperglycemia Qualified Code(s): E11.65 - Type 2 diabetes mellitus with hyperglycemia; Z79.4 - group home (current) use of insulin (5) Hyperlipidemia Current Visit: Yes Status: Chronic Qualifiers: Hyperlipidemia type: mixed hyperlipidemia Qualified Code(s): E78.2 - Mixed hyperlipidemia (6) Hypertension Current Visit: Yes Status: Chronic Qualifiers: Hypertension type: primary hypertension Qualified Code(s): I10 - Essential (primary) hypertension - Plan Plan: 1. Anti-inflammatory 2. Echo and stress test 3. Cardiology consultation 4. If work-up is negative anticipate discharge in the morning Discharge Plan: Home Plan to discharge in: Greater than 2 days - Advance Directives Does patient have a Living Will: No Does patient have a Durable POA for Healthcare: Yes - Code Status/Comfort Care Code Status: Full Code Physician Review: Patient Assessed, Agree with Above Assessment and Plan Critical Care: No Time Spent Managing PTS Care (In Minutes): 35
--- NOTE | 2022-09-03 20:04 | CON ---
Date of Consultation: 09/03/2022 Reason For Consultation: Chest pain. History Of Present Illness: This 57-year-old female with history of diabetes, COPD, coronary artery disease status post stent placement, hypothyroidism, hypertension, and dyslipidemia presented with ch est pain. It is in the left side local to the chest wall, increases with palpation. Has mild shortn ess of breath. Pain does not radiate. No nausea, vomiting, or diaphoresis. No other complaints. Past Medical History: As outlined above in the HPI. Medications: Refer to reconciliation sheet for detailed list. Allergies: NO KNOWN DRUG ALLERGIES. Family History: No premature coronary artery disease. Social History: She is an ex-smoker. Does not drink or use any drugs. Review of Systems: All systems reviewed and they were negative except for mentioned in HPI. Physical Examination: Vital Signs: Reviewed. Head And Neck: Pupils are equal and reactive to light. Intact eye movements. No JVD. No cervical lymphadenopathy. Neck is supple. Thyroid is not enlarged. Lungs: Clear to auscultation bilaterally. No rhonchi, wheezing, or crackles. No accessory muscle u se. Heart: Regular rate and rhythm. No extra sounds. Abdomen: Soft, nontender. Bowel sounds positive. No organomegaly. No masses or hernia. No rigidi ty or rebound. Extremities: There no edema, clubbing, or cyanosis. Intact pulses. Skin: No rash. No ulcers. Neurologic: Alert, awake, and oriented x3. No acute focal deficits appreciated. Lymph Nodes: No cervical or axillary lymphadenopathy. Assessment And Recommendations: 1.Initial troponin was negative. Second troponin was 85. However, her chest pain is by far atypica l. We will go ahead and send another set of troponin. If it continues to rise, then we will plan fo r coronary angiogram. Otherwise if troponin stabilizes and if echo is normal, then stress test can b e done as outpatient. We will make a final decision on this tomorrow based on her symptoms and tropo vasquez trend. 2.Hypertension. Blood pressure is controlled. Continue current management. 3.Dyslipidemia. Continue Lipitor. SR/MODL Voice ID: [id number] Report ID: [id number]
[2022-09-03] MEDS: FLUTICASONE PROPIONATE NAS SCH (21:00)
[2022-09-03] MEDS: methocarbamoL 750 MG TAB PO SCH (22:11)
[2022-09-03] MEDS: GABAPENTIN 300 MG CAP PO SCH (22:11)
[2022-09-03] MEDS: ATORVASTATIN 40 MG TAB PO SCH (22:11)
[2022-09-03 23:03] VITALS: O2SAT 94
[2022-09-04] MEDS: HYDROCORTISONE SUC 100 MG INJ IV SCH ×2 (05:16→09:00)
[2022-09-04 06:17] LABS: Absolute Lymphocytes (CBC) 1.3 K/uL (0.7-4.9); Hematocrit 38.6 % (36.0-45.0); Lymphocytes % 10.7 % (15.3-44.8); MCV 89.3 fL (80-100); MPV 7.9 fL (7.6-11.3); RBC Red Blood Cell Count 4.32 M/uL (3.86-4.86)
[2022-09-04] MEDS ORDERED: LEVOTHYROXINE SOD 0.05 MG TABLET PO SCH (06:30)
[2022-09-04 06:35] LABS: Albumin 2.9 g/dL (3.4-5.0); Bilirubin Total 0.2 mg/dL (0.2-1.0); Protein, Total 6.9 g/dL (6.4-8.2); Troponin High Sensitivity 5.4 pg/mL (<58.9)
[2022-09-04 08:14] VITALS: BP 154/73; TEMP 97.8
[2022-09-04] MEDS: INSULIN -REGULAR HUMAN 50 UNIT/0.5 ML ML SQ SCH (08:16)
[2022-09-04] MEDS: GABAPENTIN 300 MG CAP PO SCH (08:17)
[2022-09-04] MEDS: ASPIRIN EC 81 MG TAB PO SCH (08:19)
[2022-09-04] MEDS: FLUTICASONE PROPIONATE NAS SCH (09:00)
[2022-09-04] MEDS ORDERED: ASPIRIN 81 MG CHEWABLE TABLET PO SCH (09:00)
[2022-09-04] MEDS ORDERED: HOME MED 1 EA UNK (Linaclotide [Linzess] 290 MCG Capsule) PO SCH (09:00)
[2022-09-04] MEDS ORDERED: HOME MED 1 EA UNK (Mirabegron [Myrbetriq] 25 MG Tab.Er.24h) PO SCH (09:00)
[2022-09-04] MEDS ORDERED: AMLODIPINE 10 MG TAB PO SCH (09:00)
[2022-09-04] MEDS ORDERED: HOME MED 1 EA UNK (Semaglutide [Rybelsus] 14 MG Tablet) PO SCH (09:00)
[2022-09-04] MEDS ORDERED: DULOXETINE 20 MG CAP PO SCH (09:00)
[2022-09-04] MEDS ORDERED: METHYLNALTREXONE BROMIDE 150 MG PO SCH (09:00)
[2022-09-04] MEDS ORDERED: FUROSEMIDE 20 MG TABLET PO SCH (09:00)
[2022-09-04] MEDS ORDERED: METFORMIN ER 500 MG TAB PO SCH (09:00)
[2022-09-04] MEDS: methocarbamoL 750 MG TAB PO SCH (09:00)
[2022-09-04] MEDS ORDERED: AMITRIPTYLINE 25 MG TAB PO SCH (09:00)
[2022-09-04] MEDS ORDERED: FAMOTIDINE 20 MG TAB PO SCH (09:00)
--- NOTE | 2022-09-04 16:18 | PN ---
Date of Progress Note: 09/04/2022 Subjective: There is no chest pain, shortness of breath, orthopnea, or cough. No nausea, vomiting, diarrhea. No abdominal pain. No dysuria, polyuria, or urinary urgency. All other systems reviewed, they were negative. Physical Examination: Vital Signs: Reviewed. Head and Neck: Pupils are equal, reactive to light. Intact eye movements. No JVD. No cervical lym phadenopathy. Neck is supple. Thyroid is not enlarged. Lungs: Clear to auscultation bilaterally. No rhonchi, rales, or crackles. No accessory muscle use. Heart: Regular rate and rhythm. No extra sounds. Abdomen: Soft, nontender. Bowel sounds positive. No organomegaly. No masses or hernia. No rigidi ty or rebound. Extremities: No edema, clubbing, or cyanosis. Intact pulses. Skin: No rash. Neurologic: Alert, awake, oriented x3. No acute focal deficits appreciated. Investigations: Troponins have been negative, and BUN 18, creatinine 0.52. Assessment And Recommendation: 1.Chest pain with atypical features and negative troponins. Patient can be released to follow up as an outpatient. We will plan for stress test and an echo to be done as an outpatient basis. 2.Dyslipidemia. Continue statin. 3.Hypertension. Blood pressure is controlled. SR/VIJAYL Voice ID: [id number] Report ID: [id number]
--- NOTE | 2022-09-04 17:50 | EKG ---
Test Date: 2022-09-02 Test Time: 16:36:17 Hand Mica Plate Layer: SB MEASUREMENT RESULTS: Intervals: Rate: 74 OR: 134 QRSD: 74 QT: 388 QTc: 430 [place]: P: 61 OR: 134 QRS: 15 T: 64 INTERPRETIVE STATEMENTS: Normal sinus rhythm Septal infarct, age undetermined Abnormal ECG Compared to ECG 10/22/2021 18:53:15 No significant changes Electronically Signed On 09-04-22 17:45:50 LAW REPORTER by Arron Baker
--- NOTE | 2022-09-05 09:42 | ECHO ---
HEIGHT: 5 ft 4 in WEIGHT: 190 lb 0 oz DATE OF STUDY: 09/04/[address]: Brown Carey MD 2-DIMENSIONAL: YES M.MODE: YES DOPPLER: YES COLOR FLOW: YES TDS: NO PORTABLE: YES DEFINITY: NO BUBBLE STUDY: NO DIAGNOSIS: CHEST PAIN, ACS CARDIAC HISTORY: CATHERIZATION: SURGERY: PROSTHETIC VALVE: PACEMAKER: MEASUREMENTS (cm) DIASTOLIC (NORMALS) SYSTOLIC (NORMALS) IVSd 1.1 (0.6-1.2) LA Diam 3.2 (1.9-4.0) LVEF 75% LVIDd 3.5 (3.5-5.7) LVIDs 2.0 (2.0-3.5) %FS 43% LVPWd 1.1 (0.6-1.2) Ao Diam 2.5 (2.0-3.7) 2 DIMENSIONAL ASSESSMENT: RIGHT ATRIUM: NORMAL LEFT ATRIUM: NORMAL RIGHT VENTRICLE: NORMAL LEFT VENTRICLE: NORMAL TRICUSPID VALVE: MILD TR MITRAL VALVE: MILD MR PULMONIC VALVE: MILD PI AORTIC VALVE: NORMAL PERICARDIAL EFFUSION: NONE AORTIC ROOT: NORMAL LEFT VENTRICULAR WALL MOTION: NORMAL DOPPLER/COLOR FLOW: SEE BELOW. COMMENTS: 1. NORMAL LEFT VENTRICULAR EJECTION FRACTION 60-65%. 2. NORMAL WALL MOTION. 3. MILD TRICUSPID AND PULMONARY REGURGITATION. 4. MILD MITRAL REGURGITATION. TECHNOLOGIST: Wale RAMIREZ
== END 2022-09-04 11:30 | disposition home health service (06) | DRG 303 ==
LOC: ER 16:10 → ERHOLD 19:52 → 2ND 09-03 08:26 → OBSVTOIN 09-03 16:26
PROVIDERS: ADMIT Hospitalist; ATTEND Hospitalist
DX: I25.110 Atherosclerotic heart disease of native coronary artery with unstable angina pectoris (principal); N30.01 Acute cystitis with hematuria; E11.65 Type 2 diabetes mellitus with hyperglycemia; Z79.4 Long term (current) use of insulin; J44.9 Chronic obstructive pulmonary disease, unspecified; I10 Essential (primary) hypertension; E78.2 Mixed hyperlipidemia; E03.9 Hypothyroidism, unspecified; M94.0 Chondrocostal junction syndrome [Tietze]; Z20.822 Contact with and (suspected) exposure to COVID-19; Z95.5 Presence of coronary angioplasty implant and graft; Z87.891 Personal history of nicotine dependence
CPT/HCPCS: 36415; 71045; 80048; 80053; 80061; 80076; 81003; 82947; 83036; 83690; 83735; 83880; 84100; 84439; 84443; 84484; 85025; 85610; 87811; 90471; 90732; 93005; 93306; 94760; 96361; 96372; 96374; 96375; 99285; G0378; J1650; J1720; J1815; J2405; J2930; J7030; Q2035

== ENCOUNTER 2022-09-26 13:32 | Emergency (ER) | payer OTHER ==
--- OUTSIDE RECORDS SUMMARY | 2022-09-26 13:46 | XMS REPORT | Continuity of Care Document ---
:1965 Author Organization [facility] t Address [address] [place] [address] Care Team Providers Name Role Phone Laura Naseem Pham Primary Care Physician Baljeet De Anda Attending Clinician Unavailable GIANNA ROBERTS Attending Clinician Unavailable Vira Guerrero Attending Clinician Unavailable Tawana Ramirez Attending Clinician Unavailable PEE HANCOCK Attending Clinician Unavailable MARI MITCHELL Attending Clinician Unavailable Mari Mitchell MD Attending Clinician Doctor Unassigned, Berthold Attending Clinician Unavailable PRADIP YUNG Attending Clinician Unavailable Pradip Yung MD Attending Clinician ZACKARY HAYWOOD Attending Clinician Unavailable Zackary Haywood MD Attending Clinician Armond Montoya MD Attending Clinician [phone] ALE FOREMAN Attending Clinician Unavailable Ale Banda Attending Clinician PRICILLA DOOLEY Attending Clinician Unavailable Dooley PAC, Pricilla S Attending Clinician TRENA, EVANGELISTA B Attending Clinician Unavailable Trena EARTH SCIENCE TECHNICAL OFFICER, Evangelista B Attending Clinician Nurse, [facility] Attending Clinician Unavailable Marcus JONES, Lisa Attending Clinician LISA VELAZQUEZ Attending Clinician Unavailable Pee Hancock MD Attending Clinician RADIOLOGY Attending Clinician Unavailable Alireza Ceja CRNA Attending Clinician Royce Turcios MD Attending Clinician Pob, [facility] Main Attending Clinician Unavailable Chanel Gupta DO Attending Clinician Marilia Dooley MD Attending Clinician BRITTNI KELLY Attending Clinician Unavailable Richard EARTH SCIENCE TECHNICAL OFFICER, Brittni Attending Clinician BRITTANEY DE ELON Attending Clinician Unavailable RICARDO VEGA Attending Clinician Unavailable Ricardo Su S Attending Clinician Josh Bennett Attending Clinician ALISTAIR CASTELLANOS Attending Clinician Unavailable Josh Bennett MD Attending Clinician Kendrick Tolliver DO Attending Clinician Armond Siu APRN Attending Clinician Francisco Andrea Attending Clinician Unavailable Royce Rivers MD Attending Clinician Gilmer Hurst Attending Clinician SADIA FARR I Attending Clinician Unavailable Sadia Farr I Attending Clinician PEE HANCOCK Admitting Clinician Unavailable MARI MITCHELL Admitting Clinician Unavailable PRADIP YUNG Admitting Clinician Unavailable ZACKARY HAYWOOD Admitting Clinician Unavailable Pee Hancock MD Admitting Clinician Referred, Self Admitting Clinician Unavailable SADIA FARR I Admitting Clinician Unavailable Sadia Farr I Admitting Clinician Payers Payer Name Policy Type Policy Number Effective Date Expiration Date S ource CIGNA [facility] [id number] 2015 00:00:00 [facility] [id number] 2016 MEDICAID 00:00:00 [place]ICAID [place] [id number] 2022 00:00:00 Problems Condition Condition Condition Status Onset Resolution Last Treating Co mments Source Name Details Category Date Date Treatment Clinician Date DX: DX: Diagnosis Active 2022-02-10 Mem oria R11.0=NAUS R11.0=NAUS -23 10:13:00 l EA/R10.12= EA/R10.12= 00:00: He rmann LEFT UPPER LEFT UPPER 00 QUADR QUADR Active 01/27/2022 [facility] Ganglion Ganglion Disease Active Overview: Un donaldo cyst of cyst of 11-05 Formattin ity o f finger finger 00:00: g of this [place] [id number] note Medical might be Branch different from the original. Added automatic ally from request for surgery [id number] SACROLIAC SACROLIAC Diagnosis Active 2020-092021-06-25 Memoria LT, MAGALIE LT, MAGALIE 0-05 13:48:00 l HIP HIP 08:00: [place] BURSITIS, BURSITIS, 00 IT BAND IT BAND Active 06/11/2021 SMR [facility] M53.3 - M53.3 - Diagnosis Active 2021-04-03 Memoria SACROCOCCY SACROCOCCY 03-05 07:05:00 l GEAL GEAL 00:01: Solomon DISORDERS, DISORDERS, 00 NOT NOT Active 03/05/2021 [facility] Disease Active [facility] trochanter trochanter 02-27 [...] ity of of total of total 00:00: [place] knee knee 00 Medical Branch S/P total S/P total Disease Active 2019-09 Overview: Univers knee knee Formattin ity of replacemen replacemen 00:00: g of this [place] t, right t, right 00 note Medica l might be Branch different from the original. Added automatic ally from request for surgery [id number] Painful Painful Disease Active Univers orthopaedi orthopaedi 04-12 it y of c hardware c [place] I65.22 I65.22 Diagnosis Active 2019-11-24 Me moria Active 11-07 21:49:00 l 11/08/2019 00:00: Andrei MCCLELLAN 00 [facility] N/A N/A Diagnosis Active 2019-11-16 Mem oria Active 11-07 09:55:00 l 11/08/2019 00:00: Andrei MCCLELLAN [facility] Degenerati Degenerati Disease Active 2017-09 M [...] pain 5-06 ity of 00:00: Medical Branch Right knee Right knee Disease Active U nivers pain pain 5-06 ity of 00:00: Medical Branch Lump or Lump or Disease Active Univers mass in mass in - ity of breast breast 00:00: Medical Branch 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 Dysfuncti onal uterine bleedingI CD10 Diagnosis Term Whipped Topping Supervisor Utility Type 2 Type 2 Disease Active Overview: Univer s diabetes diabetes 5-09 Formattin ity of mellitus mellitus 00:00: g of this Cl[place] as without without 00 note Medical complicati complicati might be Branch ons ons different from the original. ICD10 Diagnosis Term Whipped Topping Supervisor Utility Occlusion Occlusion Problem 2019-11-23 Memoria and and 21:46:33 l stenosis stenosis Andrei n of left of left carotid carotid artery artery 11/23/2019 [facility] Carotid Carotid Problem Active 2021-07-27 Me moria artery artery 01:20:12 l stenosis stenosis Andrei n (disorder) (disorder) Active Problem 07/27/2021 Medical Group,[facility] her Neuro, CHARLEEN Carrasco,M H [facility], [facility] Carpal Carpal Problem Active 2021-07-27 Brennen oscar 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 Andrei n (disorder) (disorder) Active Problem 07/27/2021 Medical Group,[facility] her Neuro, CHARLEEN Carrasco,M H [facility], [facility] Diabetes Diabetes Problem Active 2021-07-27 Memoria mellitus mellitus 01:20:12 l (disorder) (disorder) He rmann Active Problem 07/27/2021 Medical Group,[facility] her Neuro, MEREDITHD Luna,M H [facility], [facility] Diabetes Diabetes Problem Active 2021-07-27 Memoria mellitus mellitus 01:20:12 l type 2 type 2 Solomon (disorder) (disorder) Active Problem 07/27/2021 Medical Group,[facility] her Neuro, MEREDITHD Luna,M H [facility], [facility] Disorder Disorder Problem Active 2021-07-27 Memoria of carotid of carotid 01:20:12 l artery artery Solomon (disorder) (disorder) Active Problem 07/27/2021 Medical Group,[facility] her Neuro, MEREDITHD Luna,M H [facility], [facility] Hypertensi Hypertens Problem Active 2021-07-27 Memoria ve gissel 01:20:12 l disorder, disorder, Herm mary systemic systemic arterial arterial (disorder) (disorder) Active Problem 07/27/2021 Medical Group,[facility] her Neuro, MEREDITHD Luna,M H [facility], [facility] Hyperlipid Hyperlipi Problem Active 2021-07-27 Memoria emia demia 01:20:12 l (disorder) (disorder) He rmann Active Problem 07/27/2021 Medical Group,[facility] her Neuro, CHARLEEN Carrasco,M [facility], [facility] Hypothyroi Hypothyro Problem Active 2021-07-27 Memoria dism idism 01:20:12 l (disorder) (disorder) He rmann Active Problem 07/27/2021 Medical Group,[facility] her Neuro, CHARLEEN Carrasco,M H [facility], [facility] Simple Simple Problem Active 2021-07-27 Brennen oscar obesity obesity 01:20:12 l (disorder) (disorder) He rmann Active Problem 07/27/2021 Medical Group,[facility] her Neuro, CHARLEEN Carrasco,M H [facility], [facility] OCCLUSION OCCLUSION Diagnosis Active 2019-11-24 Memoria AND AND 21:49:00 l STENOSIS STENOSIS Andrei n OF LEFT OF LEFT CAROTID A CAROTID A Active [facility] Obesity Obesity Disease Active Univers (BMI (BMI ity of 30-39.9) 30-39.9) [facility] Uncontroll Uncontroll Problem Active C ommon ed type 2 ed type 2 Spir it diabetes diabetes - [facility]I mellitus mellitus St with with [facility] hyperglyce hyperglyce Me [facility] Anxiety Anxiety Problem Active Common [facility] Asthma, Asthma, Problem Active Common unspecifie unspecifie Sp yaron d asthma d asthma - [facility] severity, severity, St unspecifie unspecifie Verenice kes d whether d whether Medi cipriano complicate complicate Ce nter d, d, unspecifie unspecifie d whether d whether persistent persistent Diabetes Diabetes Problem Active Commo n [facility] Swelling Swelling Problem Active Commo n [facility] High blood High blood Problem [facility] pressure [facility] Sinus Sinus Problem Active Common problem problem [facility] High High Problem Active Common cholestero cholestero Sp yaron l l [facility] Depression Depression Problem Active C ommon with with Spirit anxiety anxiety [facility] Acquired Acquired Problem Active Commo n hypothyroi hypothyroi Sp yaron dism dism [facility] Chronic Chronic Problem Active Common pain pain Spirit syndrome syndrome - [facility] Polyarthra Polyarthra Problem Active C ommon lgia lgia [facility] Gastroesop Gastroesop Problem Active C ommon [...] n urine odor urine odor Sp yaron - [facility] Hoarseness Hoarseness Problem Active C ommon [facility] Hyperlipid Hyperlipid Problem Active C ommon emia, emia, Spirit unspecifie unspecifie - [facility] d d St hyperlipid hyperlipid Verenice kes emia type emia type [facility] Sore Sore Problem Active Common throat throat [facility] Non-intrac Non-intrac Problem Active C ommon table table Spirit vomiting vomiting - [facility] with with St nausea, nausea, [facility] unspecifie unspecifie Me dical d vomiting d vomiting Ce nter type type Chest Chest Problem Active Common tightness tightness Spir [facility] Exposure Exposure Problem Active Commo n to mold to mold [facility] Wheezing Wheezing Problem Active Commo n [facility] Shortness Shortness Problem Active Com mon of breath of breath Spir [facility] Itching Itching Problem Active Common [facility] Muscle Muscle Problem Active Common cramping cramping [facility] Right leg Right leg Problem Active Com mon pain pain [facility] Acute Acute Problem Active Common right-side right-side Sp yaron d thoracic d thoracic - [facility] back pain back pain [facility] Low back Low back Problem Active Commo n pain pain [facility] Other Other Problem Active Common chronic chronic [facility] pain pain [facility] Lumbago Lumbago Problem Active Common with with Spirit sciatica, sciatica, - CH I right side right side [facility] Status Status Problem Active Common post fall post fall Spir it [facility] Dizziness Dizziness Problem Active Com mon Spirit [facility] Imbalance Imbalance Problem Active Com mon [facility] Difficulty Difficulty Problem Active C ommon sleeping sleeping [facility] Acute Acute Problem Active Common stress stress [facility] reaction reaction [facility] 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 both - [facility] carotid carotid St arteries [facility] Stenosis Stenosis Problem Active Commo n of left of left Spirit carotid carotid - [facility] artery artery [facility] Status Status Problem Active Common post CVA post CVA [facility] Stenosis Stenosis Problem Active Commo n of right of right Spirit carotid carotid - [facility] artery artery [facility] Allergies, Adverse Reactions, Alerts Allergy Allergy Status Severity Reaction(s) Onset Inactive Treating Comm ents Source Name Type Date Date Clinician NO KNOWN Drug Active Univers ALLERGIE Class ity of S [facility] Family History Family Member Diagnosis Comments Start Date Stop Date Source Natural father [facility] Natural mother COPD [facility] Natural mother [facility] Natural [facility] Social History Social Habit Start Date Stop Date Quantity Comments Source History of tobacco Cigarette Smoker [facility] Exposure to 2022-09-04 2022-09-14 Not sure University of SARS-CoV-2 (event) 00:00:00 12:46:00 [facility] Tobacco use and 2022-05-02 2022-05-02 Smokeless Universit y of exposure 00:00:00 00:00:00 tobacco non-user [facility] Social History 2019-11-14 2019-11-14 [facility] jane 21:12:20 21:12:20 Alcohol intake 2018-07-19 2018-07-19 Current [facility] 00:[facility]-drinker of Hospital alcohol (finding) Cigarettes smoked 2018-07-15 2018-07-[address] current (pack per 00:00:00 00:00:00 Hospita l day) - Reported Sex Assigned At [birth year] [facility] Smoking Status Start Date Stop Date Source Never smoked tobacco [facility] Ex-smoker 2018-07-15 00:00:00 2018-07-15 00:00:00 [facility] Medications Ordered Filled Start Stop Current Ordering Indication Dosage Frequency Signature Comments Components Source Medication Medication Date Date Medication? Clinician (SIG) Name Name NaCl 0.9% 2022- No 1000mL at 999 Uni vers (NS) bolus 09-14 mL/hr, ity of infusion 19:15: 21:58 1,000 mL, Claudio as 1,000 mL 00 :00 IV Medical Infusion, Branch ONCE, 1 dose, On 09/14/22 at 1315, CHEPE iopamidol 2022- No [id number] 81mL 81 mL, U nivers (ISOVUE 09-14 Intravenou ity o f 370-500 mL) 19:00: 19:10 s, ONCE, 1 [place] injection 00 :00 dose, On Medica l 81 mL 09/14/22 Branch at 1300, Routine famotidine 2022- No 20mg 20 mg, Univ ers (PEPCID 09-14 Slow IV ity of (PF)) 18:30: 18:48 Push, [place] injection 00 :00 ONCE, 1 Medical 20 mg dose, On Branch 09/14/22 at 1230, CHEPE ondansetron 2022- No 4mg 4 mg, Slow Univers (ZOFRAN 09-14 IV Push, ity of (PF)) 18:30: 18:48 ONCE, 1 [place] injection 4 00 :00 dose, On Medi cipriano mg 09/14/22 Branch at 1230, CHEPE morpHINE (4 2022- No 4mg 4 mg, Slow Univers mg/mL) 09-14 IV Push, ity of injection 4 18:30: 18:48 ONCE, 1 [place] mg 00 :00 dose, On Medical 09/14/22 Branch at 1230, STAT methylnaltr Yes 150mg Take 150 U nivers exone 1-08 mg by ity of (RELISTOR) 16:00: mouth 3 [place] 150 mg Tab 38 (three) Medica l times Branch daily. busPIRone 2021-09 Yes 10mg Take 10 mg Un donaldo 10 mg 2-27 by mouth ity of tablet 00:00: in the [place] morning. Medical Branch barium 2021-09- No [id number] 355mL 355 mL, Un donaldo sulfate 0-26 07-02 Oral, ity of (LIQUID E-Z 16:15: 15:00 ONCE, 1 Te edgardo MILNER) 60 % 00 :00 dose, On Medi cipriano (w/v) oral Wed Branch suspension 07/02/22 355 mL at 1115, Routine diazePAM 2021-09 Yes [id number] 2mg Take 1 Uni vers (VALIUM) 2 0-23 tablet by ity of mg tablet 00:00: mouth 3 (three) Medical times Branch daily as needed for Muscle Spasms. diazePAM 2021-09 Yes [id number] 2mg Take 1 Uni vers (VALIUM) 2 0-23 tablet by ity of mg tablet 00:00: mouth 3 (three) Medical times Branch daily as needed for Muscle Spasms. diazePAM 2021-09 Yes [id number] 2mg Take 1 Uni vers (VALIUM) 2 0-23 tablet by ity of mg tablet 00:00: mouth 3 (three) Medical times Branch daily as needed for Muscle Spasms. diazePAM 2021-09 Yes [id number] 2mg Take 1 Uni vers (VALIUM) 2 0-23 tablet by ity of mg tablet 00:00: mouth 3 (three) Medical times Branch daily as needed for Muscle Spasms. methylPREDN 0 Yes [id number] 84mg Take 21 Univers ISolone 8-26 [id number] tablets by ity of (MEDROL, 00:00: mouth [place] ARLENE,) 4 mg 00 SEE-INSTRU Med ical tablets CTIONS. Branch follow package directions cyclobenzap 0 Yes [id number] 10mg Take 1 Univers rine 10 mg 8-26 [id number] tablet by it y of tablet 00:00: mouth in [place] the Medical morning Branch and 1 tablet at noon and 1 tablet in the evening. methylPREDN 2021-0 Yes [id number] 84mg Take 21 Univers ISolone 8-26 [id number] tablets by ity of (MEDROL, 00:00: mouth [place] ARLENE,) 4 mg 00 SEE-INSTRU Med ical tablets CTIONS. Branch follow package directions cyclobenzap 2021-0 Yes [id number] 10mg Take 1 Univers rine 10 mg 8-26 [id number] tablet by it y of tablet 00:00: mouth in [place] 00 the Medical morning Branch and 1 tablet at noon and 1 tablet in the evening. methylPREDN 2022-0 Yes [id number] 84mg Take 21 Univers ISolone 8-26 [id number] tablets by ity of (MEDROL, 00:00: mouth [place] ARLENE,) 4 mg 00 SEE-INSTRU Med ical tablets CTIONS. Branch follow package directions cyclobenzap 2021-0 Yes [id number] 10mg Take 1 Univers rine 10 mg 8-26 [id number] tablet by it y of tablet 00:00: mouth in [place] 00 the Medical morning Branch and 1 tablet at noon and 1 tablet in the evening. methylPREDN 2022-0 Yes [id number] 84mg Take 21 Univers ISolone 8-26 [id number] tablets by ity of (MEDROL, 00:00: mouth [place] ARLENE,) 4 mg 00 SEE-INSTRU Med ical tablets CTIONS. Branch follow package directions cyclobenzap 2021-0 Yes [id number] 10mg Take 1 Univers rine 10 mg 8-26 [id number] tablet by it y of tablet 00:00: mouth in [place] the Medical morning Branch and 1 tablet at noon and 1 tablet in the evening. methylPREDN 2021-0 Yes [id number] 84mg Take 21 Univers ISolone 8-26 [id number] tablets by ity of (MEDROL, 00:00: mouth [place] ARLENE,) 4 mg 00 SEE-INSTRU Med ical tablets CTIONS. Branch follow package directions cyclobenzap 2021-0 Yes [id number] 10mg Take 1 Univers rine 10 mg 8-26 [id number] tablet by it y of tablet 00:00: mouth in [place] the Medical morning Branch and 1 tablet at noon and 1 tablet in the evening. methylPREDN 2022-0 Yes [id number] 84mg Take 21 Univers ISolone 8-26 [id number] tablets by ity of (MEDROL, 00:00: mouth [place] ARLENE,) 4 mg 00 SEE-INSTRU Med ical tablets CTIONS. Branch follow package directions cyclobenzap 2021-0 Yes [id number] 10mg Take 1 Univers rine 10 mg 8-26 [id number] tablet by it y of tablet 00:00: mouth in [place] the Medical morning Branch and 1 tablet at noon and 1 tablet in the evening. ondansetron 2022-0 Yes [id number] 4mg Take 1 Univers 4 mg 6-04 tablet by ity of disintegrat 00:00: mouth [place] ing tablet 00 every 12 Medic al (twelve) Branch hours as needed for Nausea and Vomiting (N/V). ondansetron 2022-0 Yes [id number] 4mg Take 1 Univers 4 mg 6-04 tablet by ity of disintegrat 00:00: mouth [place] ing tablet 00 every 12 Medic al (twelve) Branch hours as needed for Nausea and Vomiting (N/V). ondansetron 2022-0 Yes [id number] 4mg Take 1 Univers 4 mg 6-04 tablet by ity of disintegrat 00:00: mouth [place] ing tablet 00 every 12 Medic al (twelve) Branch hours as needed for Nausea and Vomiting (N/V). ondansetron 2022-0 Yes [id number] 4mg Take 1 Univers 4 mg 6-04 tablet by ity of disintegrat 00:00: mouth [place] ing tablet 00 every 12 Medic al (twelve) Branch hours as needed for Nausea and Vomiting (N/V). ondansetron 2-0 Yes [id number] 4mg Take 1 Univers 4 mg 6-04 tablet by ity of disintegrat 00:00: mouth [place] ing tablet 00 every 12 Medic al (twelve) Branch hours as needed for Nausea and Vomiting (N/V). ondansetron 2-0 Yes [id number] 4mg Take 1 Univers 4 mg 6-04 tablet by ity of disintegrat 00:00: mouth [place] ing tablet 00 every 12 Medic al (twelve) Branch hours as needed for Nausea and Vomiting (N/V). ondansetron 2-0 Yes [id number] 4mg Take 1 Univers 4 mg 6-04 tablet by ity of disintegrat 00:00: mouth [place] ing tablet 00 every 12 Medic al (twelve) Branch hours as needed for Nausea and Vomiting (N/V). dicyclomine 2022-0 Yes [id number] 20mg Take 1 Univers 20 mg 3-29 tablet by ity of tablet 00:00: mouth 4 [place] 00 (four) Medical times Branch daily. ondansetron 2022-0 Yes [id number] 4mg Take 1 Univers 4 mg 3-29 tablet by ity of disintegrat 00:00: mouth [place] ing tablet 00 every 4 Medica l (four) Branch hours as needed for Nausea and Vomiting (N/V). dicyclomine 2022-0 Yes [id number] 20mg Take 1 Univers 20 mg 3-29 tablet by ity of tablet 00:00: mouth 4 [place] 00 (four) Medical times Branch daily. ondansetron 2022-0 Yes [id number] 4mg Take 1 Univers 4 mg 3-29 tablet by ity of disintegrat 00:00: mouth [place] ing tablet 00 every 4 Medica l (four) Branch hours as needed for Nausea and Vomiting (N/V). dicyclomine 2022-0 Yes [id number] 20mg Take 1 Univers 20 mg 3-29 tablet by ity of tablet 00:00: mouth 4 [place] (four) Medical times Branch daily. ondansetron 2022-0 Yes [id number] 4mg Take 1 Univers 4 mg 3-29 tablet by ity of disintegrat 00:00: mouth [place] ing tablet 00 every 4 Medica l (four) Branch hours as needed for Nausea and Vomiting (N/V). dicyclomine 2022-0 Yes [id number] 20mg Take 1 Univers 20 mg 3-29 tablet by ity of tablet 00:00: mouth 4 (four) Medical times Branch daily. ondansetron 2022-0 Yes [id number] 4mg Take 1 Univers 4 mg 3-29 tablet by ity of disintegrat 00:00: mouth [place] ing tablet 00 every 4 Medica l (four) Branch hours as needed for Nausea and Vomiting (N/V). dicyclomine 2022-0 Yes [id number] 20mg Take 1 Univers 20 mg 3-29 tablet by ity of tablet 00:00: mouth 4 (four) Medical times Branch daily. ondansetron 2022-0 Yes [id number] 4mg Take 1 Univers 4 mg 3-29 tablet by ity of disintegrat 00:00: mouth [place] ing tablet 00 every 4 Medica l (four) Branch hours as needed for Nausea and Vomiting (N/V). dicyclomine 2022-0 Yes [id number] 20mg Take 1 Univers 20 mg 3-29 tablet by ity of tablet 00:00: mouth 4 [place] (four) Medical times Branch daily. ondansetron 2022-0 Yes [id number] 4mg Take 1 Univers 4 mg 3-29 tablet by ity of disintegrat 00:00: mouth [place] ing tablet 00 every 4 Medica l (four) Branch hours as needed for Nausea and Vomiting (N/V). dicyclomine Yes [id number] 20mg Take 1 Univers 20 mg 3-29 tablet by ity of tablet 00:00: mouth 4 [place] 00 (four) Medical times Branch daily. ondansetron Yes [id number] 4mg Take 1 Univers 4 mg 3-29 tablet by ity of disintegrat 00:00: mouth [place] ing tablet 00 every 4 Medica l (four) Branch hours as needed for Nausea and Vomiting (N/V). AMITRIPTYLI Yes 1 tab Unive rs NE 50 MG 3-14 every AM ity of ORAL TAB 11:59: [address] simvastatin Yes 40mg Take 40 mg Univers (ZOCOR) 40 3-14 by mouth ity o f mg tablet 11:59: at [place] [address] bedtime. Medical Branch levothyroxi Yes 50ug Take 50 Uni vers ne 3-14 mcg by ity of (SYNTHROID) 11:59: mouth [place] 50 mcg 28 every Medical tablet morning. Branch ALBUTEROL Yes 1{puff} Inhale 1 U nivers SULFATE HFA 3-14 Puff as ity o f INHALE 11:59: needed. [address] HYDROcodone Yes 1{tbl} Take 1 Un donaldo -acetaminop 3-14 tablet by ity of hen 10-325 11:59: mouth 3 [place] mg tablet 28 (three) Medical times Branch daily as needed. MAGNESIUM Yes 1{tbl} Take 1 Univ ers ORAL 3-14 tablet by ity of 11:59: mouth. [address] aspirin 81 Yes 81mg Take 81 mg U nivers mg EC 3-14 by mouth. ity of tablet 11:59: [address] estradioL Yes .5mg Take 0.5 Univ ers 0.5 mg 3-14 mg by ity of tablet 11:59: mouth. [address] esomeprazol Yes 40mg Take 40 mg Univers e 40 mg 3-14 by mouth. ity of capsule 11:59: [address] gabapentin Yes 600mg Take 600 Un donaldo ER 600 mg 3-14 mg by ity of tablet, 11:59: mouth. [place] [address] Medical release 24 Branch hr insulin Yes 85U inject 85 Unive rs degludec 3-14 Units ity of 100 unit/mL 11:59: under the [place] ([facility] semaglutide Yes Take by Uni vers (RYBELSUS) 3-14 mouth. ity of 7 mg Tab 11:59: [address] Branch trazodone Yes Take by Unive rs HCl 3-14 mouth. ity of (TRAZODONE 11:59: [place] ORAL) [address] [place] [address] Branch FAMOTIDINE Yes Take by Univ ers ORAL 3-14 mouth. ity of 11:59: [address] linaclotide Yes Take by Uni vers (LINZESS 3-14 mouth. ity of ORAL) 11:59: [address] Branch AMITRIPTYLI Yes 1 tab Unive rs NE 50 MG 3-14 every AM ity of ORAL TAB 11:59: [address] simvastatin Yes 40mg Take 40 mg Univers (ZOCOR) 40 3-14 by mouth ity o f mg tablet 11:59: at [place] [address] bedtime. Medical Branch levothyroxi Yes 50ug Take 50 Uni vers ne 3-14 mcg by ity of (SYNTHROID) 11:59: mouth [place] 50 mcg 28 every Medical tablet morning. Branch ALBUTEROL Yes 1{puff} Inhale 1 U nivers SULFATE HFA 3-14 Puff as ity o f INHALE 11:59: needed. [address] HYDROcodone Yes 1{tbl} Take 1 Un donaldo -acetaminop 3-14 tablet by ity of hen 10-325 11:59: mouth [place] 28 (three) Medical times Branch daily as needed. MAGNESIUM Yes 1{tbl} Take 1 Univ ers ORAL 3-14 tablet by ity of 11:59: mouth. [address] aspirin 81 Yes 81mg Take 81 mg U nivers mg EC 3-14 by mouth. ity of tablet 11:59: [address] estradioL Yes .5mg Take 0.5 Univ ers 0.5 mg 3-14 mg by ity of tablet 11:59: mouth. [address] esomeprazol Yes 40mg Take 40 mg Univers e 40 mg 3-14 by mouth. ity of capsule 11:59: [address] gabapentin Yes 600mg Take 600 Un donaldo ER 600 mg 3-14 mg by ity of tablet, 11:59: mouth. [place] [address] Medical release 24 Branch hr insulin Yes 85U inject 85 Unive rs degludec 3-14 Units ity of 100 unit/mL 11:59: under the [place] (3 mL) [facility] semaglutide Yes Take by Uni vers (RYBELSUS) 3-14 mouth. ity of 7 mg Tab 11:59: [address] trazodone Yes Take by Unive rs HCl 3-14 mouth. ity of (TRAZODONE 11:59: [place] ORAL) [address] [place] [address] FAMOTIDINE Yes Take by Univ ers ORAL 3-14 mouth. ity of 11:59: [address] linaclotide Yes Take by Un donaldo (LINZESS 3-14 mouth. ity of ORAL) 11:59: [address] AMITRIPTYLI Yes 1 tab Unive rs NE 50 MG 3-14 every AM ity of ORAL TAB 11:59: [address] simvastatin Yes 40mg Take 40 mg Univers (ZOCOR) 40 3-14 by mouth ity o f mg tablet 11:59: at [place] [address] bedtime. Medical Branch levothyroxi Yes 50ug Take 50 Uni vers ne 3-14 mcg by ity of (SYNTHROID) 11:59: mouth [place] 50 mcg 28 every Medical tablet morning. Branch ALBUTEROL Yes 1{puff} Inhale 1 U nivers SULFATE HFA 3-14 Puff as ity o f INHALE 11:59: needed. [address] HYDROcodone Yes 1{tbl} Take 1 Un donaldo -acetaminop 3-14 tablet by ity of hen 10-325 11:59: mouth 3 [place] mg tablet 28 (three) Medical times [place] daily as needed. MAGNESIUM Yes 1{tbl} Take 1 Univ ers ORAL 3-14 tablet by ity of 11:59: mouth. [address] aspirin 81 Yes 81mg Take 81 mg U nivers mg EC 3-14 by mouth. ity of tablet 11:59: [address] estradioL Yes .5mg Take 0.5 Univ ers 0.5 mg 3-14 mg by ity of tablet 11:59: mouth. [address] esomeprazol Yes 40mg Take 40 mg Univers e 40 mg 3-14 by mouth. ity of capsule 11:59: [address] gabapentin Yes 600mg Take 600 Un donaldo ER 600 mg 3-14 mg by ity of tablet, 11:59: mouth. [place] [address] Medical release 24 Branch hr insulin Yes 85U inject 85 Unive rs degludec 3-14 Units ity of 100 unit/mL 11:59: under the [place] (3 mL) [facility] semaglutide Yes Take by Uni vers (RYBELSUS) 3-14 mouth. ity of 7 mg Tab 11:59: [address] trazodone Yes Take by Unive rs HCl 3-14 mouth. ity of (TRAZODONE 11:59: [facility]) [address] [place] [address] FAMOTIDINE Yes Take by Univ ers ORAL 3-14 mouth. ity of 11:59: [address] linaclotide Yes Take by Uni vers (LINZESS 3-14 mouth. ity of ORAL) 11:59: [address] AMITRIPTYLI Yes 1 tab Unive rs NE 50 MG 3-14 every AM ity of ORAL TAB 11:59: [address] simvastatin Yes 40mg Take 40 mg Univers (ZOCOR) 40 3-14 by mouth ity o f mg tablet 11:59: at [place] [address] bedtime. Medical Branch levothyroxi Yes 50ug Take 50 Uni vers ne 3-14 mcg by ity of (SYNTHROID) 11:59: mouth [place] 50 mcg 28 every Medical tablet morning. Branch ALBUTEROL Yes 1{puff} Inhale 1 U nivers SULFATE HFA 3-14 Puff as ity o f INHALE 11:59: needed. [address] HYDROcodone Yes 1{tbl} Take 1 Un donaldo -acetaminop 3-14 tablet by ity of hen 10-325 11:59: mouth 3 [place] mg tablet 28 (three) Medical times Branch daily as needed. MAGNESIUM Yes 1{tbl} Take 1 Univ ers ORAL 3-14 tablet by ity of 11:59: mouth. [address] aspirin 81 Yes 81mg Take 81 mg U nivers mg EC 3-14 by mouth. ity of tablet 11:59: [address] estradioL Yes .5mg Take 0.5 Univ ers 0.5 mg 3-14 mg by ity of tablet 11:59: mouth. [address] esomeprazol Yes 40mg Take 40 mg Univers e 40 mg 3-14 by mouth. ity of capsule 11:59: [address] gabapentin Yes 600mg Take 600 Un donaldo ER 600 mg 3-14 mg by ity of tablet, 11:59: mouth. [place] [address] Medical release 24 Branch hr insulin Yes 85U inject 85 Unive rs degludec 3-14 Units ity of 100 unit/mL 11:59: under the [place] (3 mL) [facility] semaglutide Yes Take by Uni vers (RYBELSUS) 3-14 mouth. ity of 7 mg Tab 11:59: [address] trazodone Yes Take by Unive rs HCl 3-14 mouth. ity of (TRAZODONE 11:59: [facility]) Medical Branch FAMOTIDINE Yes Take by Univ ers ORAL 3-14 mouth. ity of 11:59: [address] linaclotide Yes Take by Uni vers (LINZESS 3-14 mouth. ity of ORAL) 11:59: [address] AMITRIPTYLI Yes 1 tab Unive rs NE 50 MG 3-14 every AM ity of ORAL TAB 11:59: [address] simvastatin Yes 40mg Take 40 mg Univers (ZOCOR) 40 3-14 by mouth ity o f mg tablet 11:59: at [place] [address] bedtime. Medical Branch levothyroxi Yes 50ug Take 50 Uni vers ne 3-14 mcg by ity of (SYNTHROID) 11:59: mouth [place] 50 mcg 28 every Medical tablet morning. Branch ALBUTEROL Yes 1{puff} Inhale 1 U nivers SULFATE HFA 3-14 Puff as ity o f INHALE 11:59: needed. [address] HYDROcodone Yes 1{tbl} Take 1 Un donaldo -acetaminop 3-14 tablet by ity of hen 10-325 11:59: mouth 3 [place] mg tablet 28 (three) Medical times Branch daily as needed. MAGNESIUM Yes 1{tbl} Take 1 Univ ers ORAL 3-14 tablet by ity of 11:59: mouth. [address] aspirin 81 Yes 81mg Take 81 mg U nivers mg EC 3-14 by mouth. ity of tablet 11:59: [address] estradioL Yes .5mg Take 0.5 Univ ers 0.5 mg 3-14 mg by ity of tablet 11:59: mouth. [address] esomeprazol Yes 40mg Take 40 mg Univers e 40 mg 3-14 by mouth. ity of capsule 11:59: [address] gabapentin Yes 600mg Take 600 Un donaldo ER 600 mg 3-14 mg by ity of tablet, 11:59: mouth. [place] [address] Medical release 24 Branch hr insulin Yes 85U inject 85 Unive rs degludec 3-14 Units ity of 100 unit/mL 11:59: under the [place] (3 mL) [facility] semaglutide Yes Take by Uni vers (RYBELSUS) 3-14 mouth. ity of 7 mg Tab 11:59: [address] trazodone Yes Take by Unive rs HCl 3-14 mouth. ity of (TRAZODONE 11:59: [place] ORAL) [address] [place] [address] FAMOTIDINE Yes Take by Univ ers ORAL 3-14 mouth. ity of 11:59: [address] linaclotide Yes Take by Uni vers (LINZESS 3-14 mouth. ity of ORAL) 11:59: [address] AMITRIPTYLI Yes 1 tab Unive rs NE 50 MG 3-14 every AM ity of ORAL TAB 11:59: [address] simvastatin Yes 40mg Take 40 mg Univers (ZOCOR) 40 3-14 by mouth ity o f mg tablet 11:59: at [place] [address] bedtime. [facility] Branch levothyroxi Yes 50ug Take 50 Uni vers ne 3-14 mcg by ity of (SYNTHROID) 11:59: mouth [place] 50 mcg 28 every Medical tablet morning. Branch ALBUTEROL Yes 1{puff} Inhale 1 U nivers SULFATE HFA 3-14 Puff as ity o f INHALE 11:59: needed. [address] HYDROcodone Yes 1{tbl} Take 1 Un donaldo -acetaminop 3-14 tablet by ity of hen 10-325 11:59: mouth 3 [place] mg tablet 28 (three) Medical times [place] daily as needed. MAGNESIUM Yes 1{tbl} Take 1 Univ ers ORAL 3-14 tablet by ity of 11:59: mouth. [address] aspirin 81 0 Yes 81mg Take 81 mg U nivers mg EC 3-14 by mouth. ity of tablet 11:59: [address] estradioL Yes .5mg Take 0.5 Univ ers 0.5 mg 3-14 mg by ity of tablet 11:59: mouth. [address] esomeprazol Yes 40mg Take 40 mg Univers e 40 mg 3-14 by mouth. ity of capsule 11:59: [address] gabapentin Yes 600mg Take 600 Un donaldo ER 600 mg 3-14 mg by ity of tablet, 11:59: mouth. [place] [address] Medical release 24 Branch hr insulin Yes 85U inject 85 Unive rs degludec 3-14 Units ity of 100 unit/mL 11:59: under the [place] (3 mL) [facility] semaglutide Yes Take by Uni vers (RYBELSUS) 3-14 mouth. ity of 7 mg Tab 11:59: [address] Branch trazodone Yes Take by Unive rs HCl 3-14 mouth. ity of (TRAZODONE 11:59: [place] ORAL) [address] [place] [address] Branch FAMOTIDINE Yes Take by Univ ers ORAL 3-14 mouth. ity of 11:59: [address] Branch linaclotide Yes Take by Uni vers (LINZESS 3-14 mouth. ity of ORAL) 11:59: [address] AMITRIPTYLI Yes 1 tab Unive rs NE 50 MG 3-14 every AM ity of ORAL TAB 11:59: [address] simvastatin Yes 40mg Take 40 mg Univers (ZOCOR) 40 3-14 by mouth ity o f mg tablet 11:59: at [place] [address] bedtime. Medical Branch levothyroxi Yes 50ug Take 50 Uni vers ne 3-14 mcg by ity of (SYNTHROID) 11:59: mouth [place] 50 mcg 28 every Medical tablet morning. Branch ALBUTEROL Yes 1{puff} Inhale 1 U nivers SULFATE HFA 3-14 Puff as ity o f INHALE 11:59: needed. [address] Branch HYDROcodone Yes 1{tbl} Take 1 Un donaldo -acetaminop 3-14 tablet by ity of hen 10-325 11:59: mouth 3 [place] mg tablet 28 (three) Medical times Branch daily as needed. MAGNESIUM Yes 1{tbl} Take 1 Univ ers ORAL 3-14 tablet by ity of 11:59: mouth. [address] aspirin 81 Yes 81mg Take 81 mg U nivers mg EC 3-14 by mouth. ity of tablet 11:59: [address] estradioL Yes .5mg Take 0.5 Univ ers 0.5 mg 3-14 mg by ity of tablet 11:59: mouth. [address] esomeprazol Yes 40mg Take 40 mg Univers e 40 mg 3-14 by mouth. ity of capsule 11:59: [address] gabapentin Yes 600mg Take 600 Un donaldo ER 600 mg 3-14 mg by ity of tablet, 11:59: mouth. [place] [address] Medical release 24 Branch hr insulin Yes 85U inject 85 Unive rs degludec 3-14 Units ity of 100 unit/mL 11:59: under the [place] (3 mL) [facility] semaglutide Yes Take by Uni vers (RYBELSUS) 3-14 mouth. ity of 7 mg Tab 11:59: [address] trazodone Yes Take by Unive rs HCl 3-14 mouth. ity of (TRAZODONE 11:59: [facility]) [address] [place] [address] FAMOTIDINE Yes Take by Univ ers ORAL 3-14 mouth. ity of 11:59: [address] linaclotide Yes Take by Uni vers (LINZESS 3-14 mouth. ity of ORAL) 11:59: [address] predniSONE 2020-09 Yes [id number] 60mg Take 3 U nivers 20 mg 2-31 tablets by ity of tablet 00:00: mouth [place] 00 every Medical morning. Branch benzonatate 2020-09 Yes [id number] 100mg Take 1 Univers 100 mg 2-31 capsule by ity of capsule 00:00: mouth 3 [place] [address] (three) Medical times [place] daily as needed for Cough. predniSONE 2020-09 Yes [id number] 60mg Take 3 U nivers 20 mg 2-31 tablets by ity of tablet 00:00: mouth [place] 00 every Medical morning. Branch benzonatate 2020-09 Yes [id number] 100mg Take 1 Univers 100 mg 2-31 capsule by ity of capsule 00:00: mouth 3 [place] 00 (three) Medical times [place] daily as needed for Cough. predniSONE 2020-09 Yes [id number] 60mg Take 3 U nivers 20 mg 2-31 tablets by ity of tablet 00:00: mouth [place] 00 every Medical morning. Branch benzonatate 2020-09 Yes [id number] 100mg Take 1 Univers 100 mg 2-31 capsule by ity of capsule 00:00: mouth 3 [place] 00 (three) Medical times Branch daily as needed for Cough. predniSONE 2020-09 Yes [id number] 60mg Take 3 U nivers 20 mg 2-31 tablets by ity of tablet 00:00: mouth [place] 00 every Medical morning. Branch benzonatate 2020-09 Yes [id number] 100mg Take 1 Univers 100 mg 2-31 capsule by ity of capsule 00:00: mouth 3 [place] 00 (three) Medical times Branch daily as needed for Cough. predniSONE 2020-09 Yes [id number] 60mg Take 3 U nivers 20 mg 2-31 tablets by ity of tablet 00:00: mouth [place] 00 every Medical morning. Branch benzonatate 2020-09 Yes [id number] 100mg Take 1 Univers 100 mg 2-31 capsule by ity of capsule 00:00: mouth 3 [place] 00 (three) Medical times Branch daily as needed for Cough. predniSONE 2020-09 Yes [id number] 60mg Take 3 U nivers 20 mg 2-31 tablets by ity of tablet 00:00: mouth [place] 00 every Medical morning. Branch benzonatate 2020-09 Yes [id number] 100mg Take 1 Univers 100 mg 2-31 capsule by ity of capsule 00:00: mouth 3 [place] 00 (three) Medical times Branch daily as needed for Cough. predniSONE 2020-09 Yes [id number] 60mg Take 3 U nivers 20 mg 2-31 tablets by ity of tablet 00:00: mouth [place] 00 every Medical morning. Branch benzonatate 2020-09 Yes [id number] 100mg Take 1 Univers 100 mg 2-31 [...] InPn THE Branch MORNING FOR 90 DAYS TREBA 2020-09 Yes INJECT 95 Unive rs FLEXTOUCH [...] InPn THE Branch MORNING FOR 90 DAYS TREBA 2020-09 Yes INJECT 95 Unive rs FLEXTOUCH 2-27 UNITS ity of U-200 200 00:00: [place]BC[place]ANEO [place] unit/mL (3 00 USLY IN Medica l mL) InPn THE Branch MORNING FOR 90 DAYS TREBA 2020-09 Yes INJECT 95 Unive rs FLEXTOUCH 2-27 UNITS ity of U-200 200 00:00: [place]O [place] unit/mL (3 00 USLY IN Medica l mL) InPn THE Branch MORNING FOR 90 DAYS methocarbam 2020-09 Yes [id number] 500mg Take 1 Univers oL 500 mg 2-01 tablet by ity o f tablet 00:00: mouth 4 00 (four) Medical times Branch daily as needed for Pain (scale 4-6). methocarbam 2020-09 Yes [id number] 500mg Take 1 Univers oL 500 mg 2-01 tablet by ity o f tablet 00:00: mouth 4 [place] 00 (four) Medical times Branch daily as needed for Pain (scale 4-6). methocarbam 2020-09 Yes [id number] 500mg Take 1 Univers oL 500 mg 2-01 tablet by ity o f tablet 00:00: mouth 4 [place] 00 (four) Medical times Branch daily as needed for Pain (scale 4-6). methocarbam 2020-09 Yes [id number] 500mg Take 1 Univers oL 500 mg 2-01 tablet by ity o f tablet 00:00: mouth 4 [place] 00 (four) Medical times Branch daily as needed for Pain (scale 4-6). methocarbam 2020-09 Yes [id number] 500mg Take 1 Univers oL 500 mg 2-01 tablet by ity o f tablet 00:00: mouth 4 [place] 00 (four) Medical times Branch daily as needed for Pain (scale 4-6). methocarbam 2020-09 Yes [id number] 500mg Take 1 Univers oL 500 mg 2-01 tablet by ity o f tablet 00:00: mouth 4 [place] 00 (four) Medical times Branch daily as needed for Pain (scale 4-6). methocarbam 2020-09 Yes [id number] 500mg Take 1 Univers oL 500 mg [...] 100 mg 0-27 ity of tablet 00:00: [facility] traZODone 2020-09 Yes Univers 100 mg 0-27 ity of tablet 00:00: [facility] traZODone 2020-09 Yes Univers 100 mg 0-27 ity of tablet 00:00: [facility] traZODone 2020-09 Yes Univers 100 mg 0-27 ity of tablet 00:00: [facility] traZODone 2020-09 Yes Univers 100 mg 0-27 ity of tablet 00:00: [facility] traZODone 2020-09 Yes Univers 100 mg 0-27 ity of tablet 00:00: [facility] traZODone 2020-09 Yes Univers 100 mg 0-27 ity of tablet 00:00: [place] [facility] bupivacaine 2020- No [id number] 1mL [facility] (Marcaine) 02-27 9102 Health 0.5 % 14:41: 14:41 injection 1 46 :00 mL triamcinolo 2020- No [id number] 80mg [facility] ne 02-27 9102 [facility] acetonide 14:41: 14:41 (Kenalog-40 46 :00 ) injection 80 mg triamcinolo 2020- No [id number] 80mg 80 mg, [place] ne 02-27 9102 [facility] acetonide 14:41: 14:41 cular, (Kenalog-40 46 :00 Once PRN ) injection Procedure, 80 mg Starting on Thu02/27/21 at 0941, For 1 dose bupivacaine 2020- No [id number] 1mL 1 mL, [place] (Marcaine) 02-27 9102 Injection, He alth 0.5 % 14:41: 14:41 Once PRN injection 1 46 :00 Procedure, mL Starting on Thu02/27/21 at 0941, For 1 dose amLODIPine 2021-0 Yes 5mg Take 5 mg Un donaldo 5 mg tablet 6-21 by mouth. ity of 00:00: [place] [facility] SERTraline 2021-0 Yes 50mg Take 50 mg U nivers 50 mg 6-21 by mouth. ity of tablet 00:00: [place] [facility] amLODIPine 2021-0 Yes 5mg Take 5 mg Un donaldo 5 mg tablet 6-21 by mouth. ity of 00:00: [place] [facility] SERTraline 2021-0 Yes 50mg Take 50 mg U nivers 50 mg 6-21 by mouth. ity of tablet 00:00: [place] [facility] amLODIPine 2021-0 Yes 5mg Take 5 mg Un donaldo 5 mg tablet 6-21 by mouth. ity of 00:00: [place] [facility] Branch SERTraline 2021-0 Yes 50mg Take 50 mg U nivers 50 mg 6-21 by mouth. ity of tablet 00:00: [place] [facility] amLODIPine 2021-0 Yes 5mg Take 5 mg Un donaldo 5 mg tablet 6-21 by mouth. ity of 00:00: [place] [facility] Branch SERTraline 2021-0 Yes 50mg Take 50 mg U nivers 50 mg 6-21 by mouth. ity of tablet 00:00: [place] [facility] amLODIPine 2021-0 Yes 5mg Take 5 mg Un donaldo 5 mg tablet 6-21 by mouth. ity of 00:00: [place] [facility] SERTraline 2021-0 Yes 50mg Take 50 mg U nivers 50 mg 6-21 by mouth. ity of tablet 00:00: [place] [facility] amLODIPine 2021-0 Yes 5mg Take 5 mg Un donaldo 5 mg tablet 6-21 by mouth. ity of 00:00: [place] [facility] SERTraline 2021-0 Yes 50mg Take 50 mg U nivers 50 mg 6-21 by mouth. ity of tablet 00:00: [place] [facility] amLODIPine 2021-0 Yes 5mg Take 5 mg Un donaldo 5 mg tablet 6-21 by mouth. ity of 00:00: [place] [facility] SERTraline 2021-0 Yes 50mg Take 50 mg U nivers 50 mg 6-21 by mouth. ity of tablet 00:00: [address] amLODIPine 2021-0 Yes 5mg QD Take 5 [...] by ity of 24 hr 00:00: mouth. [place] tablet [address] [place] [address] metformin 2021-0 Yes 500mg Take 500 Uni vers ER 500 mg 6-03 mg by ity of 24 hr 00:00: mouth. [place] tablet [facility] metformin 2021-0 Yes 500mg Take 500 Uni vers ER 500 mg 6-03 mg by ity of 24 hr 00:00: mouth. [place] tablet [facility] metformin 2021-0 Yes 500mg Take 500 Uni vers ER 500 mg 6-03 mg by ity of 24 hr 00:00: mouth. [place] tablet [facility] metformin 2021-0 Yes 500mg Take 500 Uni vers ER 500 mg 6-03 mg by ity of 24 hr 00:00: mouth. [place] tablet [facility] metformin 2021-0 Yes 500mg Take 500 Uni vers ER 500 mg 6-03 mg by ity of 24 hr 00:00: mouth. [place] tablet [address] [place] [address] metformin 1-0 Yes 500mg Take 500 Uni vers ER 500 mg 6-03 mg by ity of 24 hr 00:00: mouth. [place] tablet [address] [place] [address] metFORMIN 2021-0 Yes 500mg QD Take 500 [...] time 24 hr each day. tablet metFORMIN 2020-0 Yes 500mg QD Take 500 [facility] XR [...] day. tablet losartan-hy 2020-0 Yes [facility] droCHLOROth 6-02 [...] (one) time MCG tablet each day. levothyroxi 2021-0 Yes 50ug QD Take 50 [facility] ne [...] tablet 00 (two) times a day. plecanatide 1-0 Yes 3mg Take 3 mg U nivers (TRULANCE) 3-23 by mouth. ity of 3 mg Tab 00:00: [place] [facility] plecanatide 2021-0 Yes 3mg Take 3 mg U nivers (TRULANCE) 3-23 by mouth. ity of 3 mg Tab 00:00: [place] [facility] plecanatide 2021-0 Yes 3mg Take 3 mg U nivers (TRULANCE) 3-23 by mouth. ity of 3 mg Tab 00:00: [place] [facility] plecanatide 2021-0 Yes 3mg Take 3 mg U nivers (TRULANCE) 3-23 by mouth. ity of 3 mg Tab 00:00: [place] [facility] Branch plecanatide 2020-0 Yes 3mg Take 3 mg U nivers (TRULANCE) 3-23 by mouth. ity of 3 mg Tab 00:: [place] [facility] plecanatide 2020-0 Yes 3mg Take 3 mg U nivers (TRULANCE) 3-23 by mouth. ity of 3 mg Tab 00:00: [place] [facility] plecanatide 2020-0 Yes 3mg Take 3 mg U nivers (TRULANCE) 3-23 by mouth. ity of 3 mg Tab 00:00: [place] [facility] Trulance 3 2020-0 Yes 3mg Take 3 [...] (two) 00 times a week. Aspirin 81 2020-0 Yes 81 mg = 1 Me moria MG Chewable 3-16 tab, PO, l Tablet 17:44: Daily, # [place] 00 90 tab, 0 Refill(s), Pharmacy: [facility][id number] Aspirin 81 2020-0 Yes 81 mg = 1 Me [place] MG Chewable 3-16 tab, PO, l Tablet 17:44: Daily, # [place] 00 90 tab, 0 Refill(s), Pharmacy: [facility] #[id number] Aspirin 81 2020-0 Yes 81 mg = 1 Me [place] MG Chewable 3-16 tab, PO, l Tablet 17:44: Daily, # [place] 00 90 tab, 0 Refill(s), Pharmacy: [facility] [...] a 3-16 Hazardous l 14:00: Drug Group [place] 00 2:Non-anti neoplastic Hazardous Drug -- Refer to safe handling procedure PPE [facility] Fluticasone No Notes: [place] oscar propionate 3-16 (Same as: l 0.05 14:00: Flonase) [place] MG/ACTUAT 00 Metered Dose Nasal Tatamy [Flonase] Hydrochloro 2019-0 No 1 tab, [place] oscar thiazide 25 3-16 Route: PO, l MG / 14:00: Drug Form: [place] Losartan 00 TAB, Potassium Dosing 100 MG Oral Weight Tablet 79.091, kg, Daily, Start date: 11/21/19 9:00:00 CDT, Duration: 30 day, Stop date: 12/20/19 9:00:00 CDT pantoprazol 2019-0 No Notes: [place] oscar e 3-16 Tablet l 14:00: should not [place] 00 be chewed or crushed. (Same as: [...] Memoria 3-16 (Same as: l 14:00: Cozaar) [place] 00 Esomeprazol No 40 mg, 1 Me moria e 3-16 cap, l 14:00: Route: PO, [place] 00 Drug form: ECCAP, Daily, Dosing Weight 79.091, kg, Start date: 11/21/19 9:00:00 CDT, Duration: 30 day, Stop date: 12/20/19 9:00:00 CDT Estradiol No Notes: [place] a 3-16 Hazardous l 14:00: Drug Group [place] 00 2:Non-anti neoplastic Hazardous Drug -- Refer to safe handling procedure PPE [facility] Fluticasone No Notes: [place] oscar propionate 3-16 (Same as: l 0.05 14:00: Flonase) [place] MG/ACTUAT 00 Metered Dose Nasal Tatamy [Flonase] Hydrochloro No 1 tab, [place] oscar thiazide 25 3-16 Route: PO, l MG / 14:00: Drug Form: [place] Losartan 00 TAB, Potassium Dosing 100 MG [...] e 3-16 cap, l 14:00: Route: PO, [place] 00 Drug form: ECCAP, Daily, Dosing Weight [...] Flonase) [place] MG/ACTUAT 00 Metered Dose Nasal Tatamy [Flonase] Hydrochloro No 1 tab, Bren[place] oscar [...] 3-16 (Same as: l 14:00: Cozaar) [place] Esomeprazol No 40 mg, 1 Me moria e 3-16 cap, l 14:00: Route: PO, [place] 00 Drug form: ECCAP, Daily, Dosing Weight 79.091, kg, Start date: 11/21/19 9:00:00 CDT, Duration: 30 day, Stop date: 12/20/19 9:00:00 CDT Estradiol No Notes: Memori a 3-16 Hazardous l 14:00: Drug Group [place] 00 2:Non-anti neoplastic Hazardous Drug -- Refer to safe handling procedure PPE [facility] Fluticasone No Notes: [place] oscar propionate 3-16 (Same as: l 0.05 14:00: Flonase) [place] MG/ACTUAT 00 Metered Dose Nasal Tatamy [Flonase] Hydrochloro No 1 tab, [place] oscar thiazide 25 3-16 Route: PO, l MG / 14:00: Drug Form: [place] Losartan 00 TAB, Potassium Dosing 100 MG Oral Weight Tablet 79.091, kg, Daily, Start date: 11/21/19 9:00:00 CDT, Duration: 30 day, Stop date: 12/20/19 9:00:00 CDT pantoprazol No Notes: [place] oscar e 3-16 Tablet l 14:00: should not [place] 00 be chewed or crushed. (Same as: Protonix) Trulance 3 No Trulance 3 M emoria mg oral 3-16 mg oral l tablet 14:00: tablet, 3 Andrei n 00 mg, Route: PO, Daily, 11/21/19 9:00:00 CDT, Duration: 30 day, Stop date: 12/20/19 9:00:00 CDT Januvia No Notes: [place] 3-16 Same as l 14:00: Januvia [place] 00 Insulin No Notes: [place] Glargine 3-16 [...] Memoria 3-16 (Same as: l 14:00: Cozaar) [place] 00 Thyroxine No Notes: Memori a 3-16 Take 1 l 11:30: hour [place] 00 before or 2 hours after meal; Enteral feeds may interefere with the absorption of this medication . (Same as:Levothr oid) Thyroxine No Notes: [place] a 3-16 Take 1 l 11:30: hour [place] 00 before or 2 hours after meal; [...] oscar 3-16 (Same as: l 02:00: Zocor) [place] 00 Humalog No Notes: [place] 3-16 (Same as: l 02:00: Humalog) [place] 00 Roll in palms of hands gently; Do not shake vigorously . WASTE: F/P - Black; E - Municipal Trash Bin Stable for 28 days at room temperatur e. Expires in days from ____Date montelukast No Notes: [place] oscar 3-16 (Same l 02:00: as:Singula [place] 00 ir) Simvastatin No Notes: [place] oscar [...] oscar 3-16 (Same as: l 02:00: Zocor) [place] 00 Humalog No Notes: [place] 3-16 (Same as: l 02:00: Humalog) [place] Roll in palms of hands gently; Do not shake vigorously . WASTE: F/P - Black; E - Municipal Trash Bin Stable for 28 days at room temperatur e. Expires in days from ____Date montekast No Notes: Brennen oscar 3-16 (Same l 02:00: as:Singula Solomon 00 ir) Simvastatin No Notes: Brennen oscar 3-16 (Same as: l 02:00: Zocor) Solomon 00 Insulin, No 10 unit, Memor ia Aspart, 3-16 Route: l Human 01:39: SUB-Q, [place] 00 ONCE, Dosing Weight 79.091, kg, Priority: NOW, Start date: 11/20/19 20:39:00 CDT, Stop date: 11/20/19 20:39:00 CDT Insulin, No 10 unit, Memor ia Aspart, 3-16 Route: l Human 01:39: SUB-Q, Solomon 00 ONCE, Dosing Weight 79.091, kg, Priority: NOW, Start date: 11/20/19 20:39:00 CDT, Stop date: 11/20/19 20:39:00 CDT Insulin, No 10 unit, Memor ia Aspart, 3-16 Route: l Human 01:39: SUB-Q, [place] 00 ONCE, Dosing Weight 79.091, kg, Priority: NOW, Start date: 11/20/19 20:39:00 CDT, Stop date: 11/20/19 20:39:00 CDT Insulin, No 10 unit, Thomasor ia Aspart, 3-16 Route: l Human 01:39: SUB-Q, Solomon 00 ONCE, Dosing Weight 79.091, kg, Priority: NOW, Start date: 11/20/19 20:39:00 CDT, Stop date: 11/20/19 20:39:00 CDT Buspirone No Notes: Memori a 3-15 (Same As: l 22:00: BuSpar) [place] Amitiza No Notes: Memoria 3-15 Same as [...] a 3-15 (Same As: l 22:00: BuSpar) [place] 00 Amitiza No Notes: Memoria 3-15 Same as l 22:00: Amitiza [place] 00 (Do Not Crush) Non Formulary Acetaminoph No Notes: Do M emoria en 325 MG / 3-15 not exceed l Hydrocodone 18:53: 4gm/day of [place] Bitartrate 00 acetaminop 10 MG Oral hen. (Same Tablet as: Mobile [Mobile 325/10) 10325] Acetaminoph No Notes: Do M emoria en 325 MG / 3-15 not exceed l Hydrocodone 18:53: 4gm/day of Solomon Bitartrate 00 acetaminop 10 MG Oral hen. (Same Tablet as: Mobile [Mobile 325/10) 10325] Acetaminoph 2020-0 No Notes: Do M emoria en 325 MG / 3-15 not exceed l Hydrocodone 18:53: 4gm/day of [place] Bitartrate 00 acetaminop 10 MG Oral hen. (Same Tablet as: Mobile [Mobile 325/10) ] Acetaminoph 2019- No Notes: Do M emoria en 325 MG / 3-15 not exceed l Hydrocodone 18:53: 4gm/day of Solomon Bitartrate 00 acetaminop 10 MG Oral hen. (Same Tablet as: Mobile [Mobile 325/10) ] Albuterol No Notes: Memori a 0.833 MG/ML 3-15 (Same as: l / 18:49: Duoneb) Solomon Ipratropium 00 [place] 0.167 MG/ML Inhalant Solution Albuterol 2019-0 No Notes: Memori a 0.833 MG/ML 3-15 (Same as: l / 18:49: Duoneb) [place] Ipratropium 00 [place] 0.167 MG/ML Inhalant Solution Albuterol 2019-0 No Notes: Memori a 0.833 MG/ML 3-15 (Same as: l / 18:49: Duoneb) Solomon Ipratropium 00 [place] 0.167 MG/ML Inhalant Solution Albuterol 2019-0 No Notes: Memori a 0.833 MG/ML 3-15 (Same as: l / 18:49: Duoneb) Solomon Ipratropium 00 [place] 0.167 MG/ML Inhalant Solution Tylenol 2019-0 No Notes: Do Memor ia 3-15 not exceed l 18:20: 4 gm/day. [place] 00 (Same as: Tylenol) Tylenol 2019-0 No Notes: Do Memor ia 3-15 not exceed l 18:20: 4 gm/day. Solomon 00 (Same as: Tylenol) Tylenol 2019-0 No Notes: Do Memor ia 3-15 not exceed l 18:20: 4 gm/day. [place] 00 (Same as: Tylenol) Tylenol 2019-0 No Notes: Do Memor ia 3-15 not exceed l 18:20: 4 gm/day. Solomon (Same as: Tylenol) Labetalol 2019-0 No Notes: Memori a 3-15 (Same as: l 17:11: Normodyne, [place] 00 Trandate) Push over 2 minutes Give bolus over 2-3 minutes. Labetalol 2020-0 No Notes: Memori a 3-15 (Same as: l 17:11: Normodyne, [place] 00 Trandate) Push over 2 minutes Give bolus over 2-3 minutes. Labetalol 2020-0 No Notes: Memori a 3-15 (Same as: l 17:11: Normodyne, Sloomon 00 Trandate) Push over 2 minutes Give bolus over 2-3 minutes. Labetalol 2020-0 No Notes: Memori a 3-15 (Same as: l 17:11: Normodyne, Solomon 00 Trandate) Push over 2 minutes Give bolus over 2-3 minutes. heparin 2020-0 No 5,000 Memoria 3-15 unit, l 14:23: Route: [place] 00 SUB-Q, Q8H-06, Dosing Weight 79.091, kg, [...] 5,000 Memoria 3-15 unit, l 14:23: Route: [place] 00 SUB-Q, Q8H-06, Dosing Weight 79.091, kg, [...] 3-15 Route: PO, l 14:15: Drug form: [place] 00 TAB, Daily, Dosing Weight 79.091, kg, Priority: STAT, Start date: 11/20/19 9:15:00 CDT, Duration: 30 day, Stop date: 12/20/19 9:00:00 CDT Lexapro 2020-0 No 10 mg, Memoria 3-15 Route: PO, l 14:15: Drug form: [place] 00 TAB, Daily, Dosing Weight 79.091, kg, Priority: STAT, Start date: 11/20/19 9:15:00 CDT, Duration: 30 day, Stop date: 12/20/19 9:00:00 CDT Lexapro 2020-0 No 10 mg, Memoria 3-15 Route: PO, l 14:15: Drug form: [place] 00 TAB, Daily, Dosing Weight 79.091, kg, Priority: STAT, Start date: 11/20/19 9:15:00 CDT, Duration: 30 day, Stop date: 12/20/19 9:00:00 CDT Furosemide 2019-0 No Notes: Memor ia 3-15 (Same as: l 14:00: Lasix) May cause GI upset. Give with food or milk. Losartan 2019-0 No Notes: Memoria 3-15 (Same as: l 14:00: Cozaar) Furosemide 2019-0 No Notes: Memor ia 3-15 (Same as: l 14:00: Lasix) May cause GI upset. Give with food or milk. Losartan 2019-0 No Notes: Memoria 3-15 (Same as: l 14:00: Cozaar) Furosemide 2019-0 No Notes: Memor ia 3-15 (Same as: l 14:00: Lasix) January Solomon 00 cause GI upset. Give with food or milk. Losartan No Notes: Memoria 3-15 (Same as: l 14:00: Cozaar) [place] 00 Furosemide 0 No Notes: Memor ia 3-15 (Same as: l 14:00: Lasix) January cause GI upset. Give with food or milk. Losartan No Notes: Memoria 3-15 (Same as: l 14:00: Cozaar) [place] Humalog 0 No Notes: Memoria 3-15 (Same as: l 08:52: Humalog) Solomon 00 Roll in palms of hands gently; Do not shake vigorously . WASTE: F/P - Black; E - Municipal Trash Bin Stable for 28 days at room temperatur e. Expires in days from ____Date Dextrose 0 No 50 mL, Memoria 50% in 11-19 [...] Memoria 3-15 (Same as: l 08:52: Humalog) [place] 00 Roll in palms of hands gently; [...] CDT, 0 Humalog 2020-0 No Notes: Memoria - (Same as: l 08:52: Humalog) [place] 00 Roll in palms of hands gently; Do not shake vigorously . WASTE: F/P - Black; E - Municipal Trash Bin Stable for 28 days at room temperatur e. Expires in days from ____Date Dextrose 2020-0 No 50 mL, Memoria 50% in 11-19 Route: l Water IV 08:52: IVP, Start marmolejo date: 11/20/19 3:52:00 CDT, Duration: 30 [...] Memoria 3-15 (Same as: l 08:51: Humalog) [place] 00 Roll in palms of hands gently; Do not shake vigorously . WASTE: F/P - Black; E - Municipal Trash Bin Stable for 28 days at room temperatur e. Expires in days from ____Date Humalog No Notes: Memoria 3-15 (Same as: l 08:51: Humalog) [place] 00 Roll in palms of hands gently; Do not shake vigorously . WASTE: F/P - Black; E - Municipal Trash Bin Stable for 28 days at room temperatur e. Expires in days from ____Date Humalog 0 No Notes: Memoria 3-15 (Same as: l 08:51: Humalog) [place] 00 Roll in palms of hands gently; Do not shake vigorously . WASTE: F/P - Black; E - Municipal Trash Bin Stable for 28 days at room temperatur e. Expires in days from ____Date Labetalol 2019-0 No Notes: Memori a 3-15 (Same as: l 06:25: Normodyne, [place] 00 Trandate) Push over 2 minutes Give bolus over 2-3 minutes. Labetalol 2020-0 No Notes: Memori a 3-15 (Same as: l 06:25: Normodyne, [place] 00 Trandate) Push over 2 minutes Give bolus over 2-3 minutes. Labetalol 2020-0 No Notes: Memori a 3-15 (Same as: l 06:25: Normodyne, [place] 00 Trandate) Push over 2 minutes Give bolus over 2-3 minutes. Labetalol 2020-0 No Notes: Memori a 3-15 (Same as: l 06:25: Normodyne, [place] 00 Trandate) Push over 2 minutes Give bolus over 2-3 minutes. Hydralazine 2020-0 No Notes: Brennen oscar 3-15 (Same as: l 03:35: Apresoline [place] 00 ) Push over 5 minutes Hydralazine 2020-0 No Notes: Brennen oscar 3-15 (Same as: l 03:35: Apresoline [place] 00 ) Push over 5 minutes Hydralazine 2020-0 No Notes: Brennen oscar 3-15 (Same as: l 03:35: Apresoline [place] 00 ) Push over 5 minutes Hydralazine 2020-0 No Notes: Brennen oscar 3-15 (Same as: l 03:35: Apresoline Solomon 00 ) Push over 5 minutes Furosemide 2020-0 No Notes: Memor ia 3-14 (Same as: l 23:33: Lasix) Solomon 00 Losartan 2020-0 No Notes: Memoria 3-14 (Same as: l 23:33: Cozaar) [place] Furosemide 2020-0 No Notes: Memor ia 3-14 (Same as: l 23:33: Lasix) Solomon Losartan 2020-0 No Notes: Memoria 3-14 (Same as: l 23:33: Cozaar) Solomon Furosemide 2020-0 No Notes: Memor ia 3-14 (Same as: l 23:33: Lasix) Solomon 00 Losartan 2020-0 No Notes: Memoria 3-14 (Same as: l 23:33: Cozaar) [place] Furosemide 2020-0 No Notes: Memor ia 3-14 (Same as: l 23:33: Lasix) [place] 00 Losartan No Notes: Memoria 3-14 (Same as: l 23:33: Cozaar) POLYETHYLEN No Notes: Brennen oscar E GLYCOL 3-14 Dissolve l 3350 14:00: in 8 oz of [place] 00 water or juice. (Same as: Miralax) Aspirin No Notes: Memoria 3-14 Take with l 14:00: food. POLYETHYLEN No Notes: Brennen oscar E GLYCOL 3-14 Dissolve l 3350 14:00: in 8 oz of [place] 00 water or juice. (Same as: Miralax) [...] Notes: Memoria 3-14 Chlorasept l 02:54: ic Tatamy (Same as: Chlorasept ic, Sore Throat Tatamy) WASTE: F/P - Black; E - Municipal Trash Bin phenol No Notes: Memoria 3-14 Chlorasept l 02:54: ic Tatamy (Same as: Chlorasept ic, Sore Throat Tatamy) WASTE: F/P - Black; E - Municipal Trash Bin phenol No Notes: Memoria 3-14 Chlorasept l 02:54: ic Tatamy (Same as: Chlorasept ic, Sore Throat Tatamy) WASTE: F/P - Black; E - Municipal Trash Bin phenol No Notes: Memoria 3-14 Chlorasept l 02:54: ic Tatamy (Same as: Chlorasept ic, Sore Throat Tatamy) WASTE: F/P - Black; E - Municipal Trash Bin Famotidine 0 No Notes: Memor ia 3-14 (Same as: l 02:00: Pepcid) [place] 00 Can be dilute in 5-10cc NS IVP: Slow IV push over at least 2 minutes. Saline No Notes: Memoria Flush 0.9% 3-14 (Same as: l 02:00: BD Solomon 00 Posiflush) gabapentin 0 No Notes: Memor ia 3-14 (Same as: l 02:00: Neurontin) [place] 00 Famotidine 0 No Notes: Memor ia 3-14 (Same as: l 02:00: Pepcid) [place] 00 Can be dilute in 5-10cc NS IVP: Slow IV push over at least 2 minutes. Saline No Notes: Memoria Flush 0.9% 3-14 (Same as: l 02:00: BD [place] 00 Posiflush) gabapentin 0 No Notes: Memor ia 3-14 (Same as: l 02:00: Neurontin) [place] 00 Famotidine 0 No Notes: Memor ia 3-14 (Same as: l 02:00: Pepcid) [place] 00 Can be dilute in 5-10cc NS IVP: Slow IV push over at least 2 minutes. Saline No Notes: Memoria Flush 0.9% 3-14 (Same as: l 02:00: BD Solomon 00 Posiflush) gabapentin 2019-0 No Notes: Memor ia 3-14 (Same as: l 02:00: Neurontin) [place] 00 Famotidine 0 No Notes: Memor ia 3-14 (Same as: l 02:00: Pepcid) [place] 00 Can be dilute in 5-10cc NS IVP: Slow IV push over at least 2 minutes. Saline No Notes: Memoria Flush 0.9% 3-14 (Same as: l 02:00: BD Solomon 00 Posiflush) gabapentin 2019-0 No Notes: Memor ia 3-14 (Same as: l 02:00: Neurontin) [place] 00 glucagon 2019-0 No 1 mg, Memoria 3-14 Route: l 01:54: INJ, Drug [place] 00 form: PDR/INJ, PRN, PRN Blood Glucose Results, Start date: 11/18/19 20:54:00 CDT, Duration: 30 day, Stop date: 12/18/19 20:53:00 CDT, 0 glucagon 2020-0 No 1 mg, Memoria 3-14 Route: l 01:54: INJ, Drug [place] 00 form: PDR/INJ, PRN, PRN Blood Glucose Results, Start date: 11/18/19 20:54:00 CDT, Duration: 30 day, Stop date: 12/18/19 20:53:00 CDT, 0 glucagon 2020-0 No 1 mg, Memoria 3-14 Route: l 01:54: INJ, Drug [place] 00 form: PDR/INJ, PRN, PRN Blood Glucose [...] Memoria 3-14 (Same as: l 01:53: Humalog) [place] 00 Roll in palms of hands gently; [...] Memoria 3-14 (Same as: l 01:53: Humalog) [place] 00 Roll in palms of hands gently; [...] Memoria 3-14 (Same as: l 01:53: Humalog) [place] 00 Roll in palms of hands gently; [...] No Notes: Memoria 3-14 (Same as: l :53: Humalog) Solomon 00 Roll in palms of [...] Memoria 3-14 (Same as: l :52: Humalog) [place] 00 Roll in palms of hands gently; Do not shake vigorously . WASTE: F/P - Black; E - Municipal Trash Bin Stable for 28 days at room temperatur e. Expires in days from ____Date Humalog 0 No Notes: Memoria 3-14 (Same as: l 01:52: Humalog) [place] 00 Roll in palms of hands gently; Do not shake vigorously . WASTE: F/P - Black; E - Municipal Trash Bin Stable for 28 days at room temperatur e. Expires in days from ____Date Humalog 2019-0 No Notes: Memoria 3-14 (Same as: l :52: Humalog) [place] 00 Roll in palms of hands gently; Do not shake vigorously . WASTE: F/P - Black; E - Municipal Trash Bin Stable for 28 days at room temperatur e. Expires in days from ____Date Humalog 0 No Notes: Memoria 3-14 (Same as: [...] Memoria 3-13 (Same as: l 22:49: Cozaar) [place] 00 Lasix 2020-0 No Notes: Memoria 3-13 (Same as: l 22:49: Lasix) [place] 00 MEDICATION WASTE Product Size: 40 mg Product Wasted: ___ mg Losartan 2020-0 No Notes: Memoria 3-13 (Same as: l 22:49: Cozaar) Solomon 00 Lasix 2020-0 No Notes: Memoria 3-13 (Same as: l 22:49: Lasix) [place] 00 MEDICATION WASTE Product Size: 40 mg Product Wasted: ___ mg Losartan 2020-0 No Notes: Memoria 3-13 (Same as: l 22:49: Cozaar) [place] 00 Lasix 2020-0 No Notes: Memoria 3-13 (Same as: l 22:49: Lasix) [place] 00 MEDICATION WASTE Product Size: 40 mg [...] 4 mg Product Wasted: ___ mg Zofran No Notes: Memoria 3-13 (Same as: l 19:19: Zofran) [place] 00 MEDICATION WASTE Product Size: 4 mg Product Wasted: ___ mg Albuterol 2019- No Notes: Memori a 0.833 MG/ML 3-13 (Same as: l / 17:26: Duoneb) Ipratropium 00 [place] 0.167 MG/ML Inhalant Solution Saline No Notes: Memoria Flush 0.9% 3-13 (Same as: l 17:26: BD [place] 00 Posiflush) Potassium No Notes: Memori a Chloride 3-13 (Same as: l 17:26: KCL) Infuse no faster than 10 mEq/hr if given peripheral ly. sodium No Notes: Memoria phosphate 3-13 Infuse l 17:26: over 4 [place] 00 hour. Do not infuse phosphorou s concurrent ly in the same line as TPN or IVF that contains calcium. For double lumen central lines, phosphorou s may be infused in a separate lumen from TPN. potassium No Notes: Memori a phosphate 3-13 (Same as: l 17:26: K [place] 00 Phosphate. ) Do not infuse phosphorou [...] 17:26: Mag-Ox Solomon 00 400) Magnesium oxide 332lw=139c g elemental magnesium Dose=____m g magnesium oxide (___mg elemental magnesium) Calcium 2019-0 No Notes: Memoria Gluconate 3-13 WASTE: F/P l 17:26: - Sink; E [place] 00 - Municipal Trash Bin Calcium 2019- No Notes: Memoria Carbonate 3-13 (Same As: l 500 MG :: Tums) [place] Chewable 00 Calcium Tablet Carbonate 500 mg = 200 mg elemental calcium Dose = mg calcium carbonate ( mg elemental calcium) Albuterol No Notes: Memori a 0.833 MG/ML 3-13 (Same as: l / :: Duoneb) Ipratropium 00 [place] 0.167 MG/ML Inhalant Solution Saline No Notes: Memoria Flush 0.9% 3-13 (Same as: l :: BD Solomon 00 Posiflush) Potassium No Notes: Memori a Chloride 3-13 (Same as: l :: KCL) [place] 00 Infuse no faster than 10 mEq/hr if given peripheral ly. sodium No Notes: Memoria phosphate 3-13 Infuse l 17:26: over 4 [place] 00 hour. Do not infuse phosphorou s concurrent ly in the same line as TPN or IVF that contains calcium. For double lumen central lines, phosphorou s may be infused in a separate lumen from TPN. potassium 2019- No Notes: Memori a phosphate 3-13 (Same as: l :26: K Solomon 00 Phosphate. ) Do not [...] WASTE: F/P l 17:: - Sink; E Solomon 00 - Municipal Trash Bin Magnesium 2020-0 No Notes: Memori a Oxide 3-13 (Same as: l :: Mag-Ox Solomon 00 400) Magnesium oxide 098cg=302y g elemental magnesium Dose=____m g magnesium oxide (___mg elemental magnesium) Calcium 2020-0 No Notes: Memoria Gluconate 3-13 WASTE: F/P l 17:: - Sink; E - Municipal Trash Bin Calcium 2020-0 No Notes: Memoria Carbonate 3-13 (Same As: l 500 MG 17:: Tums) Solomon Chewable 00 Calcium Tablet Carbonate 500 mg = 200 mg elemental calcium Dose = mg calcium carbonate ( mg elemental calcium) Albuterol 2020-0 No Notes: Memori a 0.833 MG/ML 3-13 (Same as: l / :: Duoneb) Ipratropium 00 [place] 0.167 MG/ML Inhalant Solution Saline 2019-0 No Notes: Memoria Flush 0.9% 3-13 (Same as: l :: BD [place] 00 Posiflush) Potassium 2020-0 No Notes: Memori a [...] 3-13 (Same as: l odium 17:26: Phos-NaK) [place] phosphate 00 Each 1.5 250 mg-280 gm pkt has mg-160 mg 250mg oral powder phosphorou for s. Mix reconstitut w/2.5oz ion water and stir. Magnesium 2019-0 No Notes: Memori a Sulfate 3-13 WASTE: F/P l 17:: - Sink; E - Municipal Trash Bin Magnesium 2019-0 No Notes: Memori a Oxide 3-13 (Same as: l 17:26: Mag-Ox 400) Magnesium oxide 994vm=950l g elemental magnesium Dose=____m g magnesium oxide (___mg elemental magnesium) Calcium 2019-0 No Notes: Memoria Gluconate 3-13 WASTE: F/P l 17:: - Sink; E - Municipal Trash Bin Calcium 2020-0 No Notes: Memoria Carbonate 3-13 (Same As: l 500 MG 17:: Tums) [place] Chewable 00 Calcium Tablet Carbonate 500 mg = 200 mg elemental calcium Dose = mg calcium carbonate ( mg elemental calcium) Albuterol 2019-0 No Notes: Memori a 0.833 MG/ML 3-13 (Same as: l / :: Duoneb) Ipratropium 00 [place] 0.167 MG/ML Inhalant Solution Saline 2019-0 No Notes: Memoria Flush 0.9% 3-13 (Same as: l 17:26: BD Posiflush) Potassium 2019-0 No Notes: Memori a [...] potassium 2019- No Notes: Memori a phosphate-s - (Same as: l odium 17:26: Phos-NaK) Solomon phosphate 00 Each 1.5 250 mg-280 gm pkt has mg-160 mg 250mg oral powder phosphorou for s. Mix reconstitut w/2.5oz ion water and stir. Magnesium No Notes: Memori a Sulfate 11-17 WASTE: F/P l 17:26: - Sink; E [place] 00 - Municipal Trash Bin Magnesium No Notes: Memori a Oxide - (Same as: l 17:26: Mag-Ox [place] 00 400) Magnesium oxide [id number] g elemental magnesium Dose=____m g magnesium oxide (___mg elemental magnesium) Calcium No Notes: Memoria Gluconate 11-17 WASTE: F/P l 17:26: - Sink; E Solomon 00 - Municipal Trash Bin Calcium No Notes: Memoria Carbonate - (Same As: l 500 MG 17:26: Tums) Solomon Chewable Calcium Tablet Carbonate 500 mg = 200 mg elemental calcium Dose = mg calcium carbonate ( mg elemental calcium) Acetaminoph No Notes: Do M emoria en -13 not exceed l 17:00: 4 gm/day. Solomon 00 (Same as: Tylenol) Acetaminoph No Notes: Do M emoria en 3-13 not exceed l 17:00: 4 gm/day. [place] 00 (Same as: Tylenol) Acetaminoph No Notes: Do M emoria en 3-13 not exceed l 17:00: 4 gm/day. Solomon 00 (Same as: Tylenol) Acetaminoph No Notes: Do M emoria en 3-13 not exceed l 17:00: 4 gm/day. [place] 00 (Same as: Tylenol) gabapentin No Notes: Memor ia 3- (Same as: l 16:39: Neurontin) Oxycodone 2019-0 No Notes: Memori a Hydrochlori 3-13 (Same as: l de 5 MG 16:39: Roxicodone Herm mary Oral Tablet 00 ) Tramadol 0 No Notes: Not Mem oria 3-13 to exceed l 16:39: 400mg/day. (Same As: Ultram) gabapentin 0 No Notes: Memor ia 3-13 (Same as: l 16:39: Neurontin) Oxycodone 0 No Notes: Memori a Hydrochlori 3-13 (Same as: l de 5 MG 16:39: Roxicodone Herm mary Oral Tablet 00 ) Tramadol 0 No Notes: Not Mem oria 3-13 to exceed l 16:39: 400mg/day. (Same As: Ultram) gabapentin No Notes: Memor ia 3-13 (Same as: l 16:39: Neurontin) Oxycodone 0 No Notes: Memori a Hydrochlori 3-13 (Same as: l de 5 MG 16:39: Roxicodone Herm mary Oral Tablet 00 ) Tramadol 0 No Notes: Not Mem oria 3-13 to exceed l 16:39: 400mg/day. (Same As: Ultram) Tramadol 0 No Notes: Not Mem oria 3-13 to exceed l 16:39: 400mg/day. (Same As: Ultram) gabapentin 0 No Notes: Memor ia 3-13 (Same as: l 16:39: Neurontin) Oxycodone 0 No Notes: Memori a Hydrochlori 3-13 (Same as: l de 5 MG 16:39: Roxicodone Herm mary Oral Tablet 00 ) niCARdipine 0 No Route: IV, Memoria (ANES) [...] 3-13 Drug form: l 16:13: INJ, ONCE, Solomon 00 Stop date: 11/18/19 11:13:00 CDT Nicardipine 2020-0 No Notes: Brennen oscar 3-13 Same as: l 16:12: Cardene Concentrat ion: (0.2 mg /1 ml ) Nicardipine 2020-0 No Notes: Brennen oscar 3-13 Same as: l 16:12: Cardene [place] 00 Concentrat ion: (0.2 mg /1 ml ) Nicardipine 2020-0 No Notes: Brennen oscar 3-13 Same as: l 16:12: Cardene [place] 00 Concentrat ion: (0.2 mg /1 ml ) Nicardipine 2020-0 No Notes: Brennen oscar 3-13 Same as: l 16:12: Cardene [place] 00 Concentrat ion: (0.2 mg /1 ml ) Acetaminoph 2020-0 No Notes: Brennen oscar en 3-13 Infuse l 16:09: over 15 [place] 00 minutes Do not exceed 4gm/day of acetaminop hen MEDICATION WASTE Product Size: 1000 mg Product Wasted: ___ mg Acetaminoph 2020-0 No Notes: Brennen oscar en 3-13 Infuse l 16:09: over 15 [place] 00 minutes Do not exceed 4gm/day of acetaminop hen MEDICATION WASTE Product Size: 1000 mg Product Wasted: ___ mg Acetaminoph 2020-0 No Notes: Brennen oscar en 3-13 Infuse l 16:09: over 15 [place] 00 minutes Do not exceed 4gm/day of acetaminop hen MEDICATION WASTE Product Size: 1000 mg Product Wasted: ___ mg Acetaminoph 2020-0 No Notes: Brennen oscar en 3-13 Infuse l 16:09: over 15 [place] 00 minutes Do not exceed 4gm/day of [...] CDT rocuronium 2020-0 No Route: IV, Nahed emoria (ANES) 3-13 Drug form: l 14:05: [...] CDT rocuronium 2020-0 No Route: IV, Nahed emoria (ANES) 3-13 Drug form: l 14:05: [...] ia 3-13 (Same as: l 11:36: Lopressor) [place] 00 Push over 2 minutes Sodium 2020-0 [...] ia 3-13 (Same as: l 11:36: Lopressor) [place] 00 Push over 2 minutes Sodium 2020-0 No 250 mL, Memoria Chloride 3-13 Rate: To l 0.9% 11:36: prime line [place] (titrate) 00 and flush 250 mL remaining blood products., Dosing Weight 81.023, kg, Route: IV, Total Volume: 250, Start Date: 11/18/19 6:36:00 CDT, Duration: 1 day, Stop date: 11/19/19 6:35:00 CDT, Replace Every: 24 hr, 0 Metoprolol 2020-0 No Notes: Memor ia 3-13 (Same as: l 11:36: Lopressor) [place] 00 Push over 2 minutes Sodium 2020-0 [...] Rate: To l 0.9% 11:36: prime line [place] (titrate) 00 and flush 250 mL remaining [...] l MG / 18:03: 30 tab, 0 [place] Losartan 00 Refill(s) Potassium 100 MG Oral Tablet Albuterol 2020-0 Yes 3 mL, Memoria 0.833 MG/ML 3-09 INHALATION l / 18:03: , Q6H, PRN [place] Ipratropium 00 Wheezing, [place] # 30 ea, 1 0.167 MG/ML Refill(s) Inhalant Solution Fluticasone 2020-0 Yes NASAL, Brennen oscar propionate 3-09 Daily, 0 l 0.05 18:03: Refill(s) Solomon MG/ACTUAT 00 Metered Dose Nasal Tatamy [Flonase] meloxicam 2020-0 Yes 15 mg = 1 Mem oria 15 mg oral 3-09 tab, PO, l tablet 18:03: Daily, # [place] 00 30 tab, 0 Refill(s) busPIRone 2020-0 Yes 10 mg = 1 Mem oria 10 mg oral 3-09 tab, PO, l tablet 18:03: BID, 0 [place] 00 Refill(s) Esomeprazol 2020-0 Yes 40 mg [...] microgram l Oral 18:03: = 1 cap, [place] Capsule 00 PO, BID, 0 [Amitiza] Refill(s) [...] tab, PO, l Tablet 18:03: Daily, 0 [place] [Trulance] 00 Refill(s) Hydrochloro 2020-0 Yes 1 tab, PO, Memoria thiazide 25 3- Daily, # l MG / 18:03: 30 tab, 0 Solomon Losartan 00 Refill(s) Potassium 100 MG Oral Tablet Albuterol 2020-0 Yes 3 mL, Memoria 0.833 MG/ML 11-13 INHALATION l / 18:03: , Q6H, PRN Solomon Ipratropium 00 Wheezing, [place] # 30 ea, 1 0.167 MG/ML Refill(s) Inhalant Solution Fluticasone 2020-0 Yes NASAL, Brennen oscar propionate 3- Daily, 0 l 0.05 18:03: Refill(s) Solomon MG/ACTUAT 00 Metered Dose Nasal Tatamy [Flonase] meloxicam 2020-0 Yes 15 mg = 1 Mem oria 15 mg oral 3-09 tab, PO, l tablet 18:03: Daily, # [place] 00 30 tab, 0 Refill(s) busPIRone 2020-0 Yes 10 mg = 1 Mem oria 10 mg oral 3-09 tab, PO, l tablet 18:03: BID, 0 [place] 00 Refill(s) Esomeprazol 2020-0 Yes 40 mg [...] Yes 24 Memori a e 0.024 MG 3- microgram l Oral 18:03: = 1 cap, [...] l MG / 18:03: 30 tab, 0 [place] Losartan 00 Refill(s) Potassium 100 MG Oral Tablet Albuterol 2020-0 Yes 3 mL, Memoria 0.833 MG/ML 3- INHALATION l / 18:03: , Q6H, PRN [place] Ipratropium 00 Wheezing, [place] # 30 ea, 1 0.167 MG/ML Refill(s) Inhalant Solution Fluticasone 2020-0 Yes NASAL, Brennen oscar propionate 3-09 Daily, 0 l 0.05 18:03: Refill(s) [place] MG/ACTUAT 00 Metered Dose Nasal Tatamy [Flonase] meloxicam 2020-0 Yes 15 mg = 1 Mem oria 15 mg oral 3-09 tab, PO, l tablet 18:03: Daily, # [place] 00 30 tab, 0 Refill(s) busPIRone 2020-0 Yes 10 mg = 1 Mem oria 10 mg oral 3-09 tab, PO, l tablet 18:03: BID, 0 [place] 00 Refill(s) Esomeprazol 2020-0 Yes 40 mg [...] tab, PO, l Tablet 18:03: Daily, 0 [place] [Trulance] 00 Refill(s) Hydrochloro 2020-0 Yes 1 tab, PO, Memoria thiazide 25 3-09 Daily, # l MG / 18:03: 30 tab, 0 [place] Losartan 00 Refill(s) Potassium 100 MG Oral Tablet Albuterol 2020-0 Yes 3 mL, Memoria 0.833 MG/ML 3-09 INHALATION l / 18:03: , Q6H, PRN [place] Ipratropium 00 Wheezing, [place] # 30 ea, 1 0.167 MG/ML Refill(s) Inhalant Solution Fluticasone 2020-0 Yes NASAL, Brennen oscar propionate 3-09 Daily, 0 l 0.05 18:03: Refill(s) [place] MG/ACTUAT 00 Metered Dose Nasal Tatamy [Flonase] meloxicam 2020-0 Yes 15 mg = 1 Mem oria 15 mg oral 3-09 tab, PO, l tablet 18:03: Daily, # [place] 00 30 tab, 0 Refill(s) busPIRone 2020-0 Yes 10 mg = 1 Mem oria 10 mg oral 3-09 tab, PO, l tablet 18:03: BID, 0 [place] 00 Refill(s) Esomeprazol 2020-0 Yes 40 mg [...] [Trulance] 00 Refill(s) HYDROcodone 2017-09 Yes 1{tbl} Q.[id number] Take 1 [facility] -acetaminop 1-[id number] rae (NORCO) 21:45: 3D mouth 3 Hos leonardo 7.5-325 mg 51 (three) l per tablet times a day. methocarbam 2017-09 Yes 750mg Q.[id number] Take 750 [facility] ol -[id number] (ROBAXIN) 21:45: 3D mouth [...] l Pure Magnesium albuterol 2017-09 Yes 1{puff} Q.[id number] Inhale 1 [facility] (PROAIR -[id number] HFA,PROVENT 21:45: 3D (three) [...] capsule 51 l HYDROcodone 2017-09 Yes 1{tbl} Q.[id number] Take 1 [facility] -acetaminop -[id number] hen (NORCO) 15:45: 3D mouth 3 [facility] leonardo 7.5-325 mg 51 (three) l per tablet times a day. methocarbam 2017-09 Yes 750mg Q.[id number] Take 750 [facility] ol 1-[id number] (ROBAXIN) 15:45: 3D mouth [...] 100 morning. unit/mL (3 mL) insulin pen HYDROcodone 2017-09 Yes 1{tbl} Q.[id number] Take 1 [facility] -acetaminop 1-[id number] hen (NORCO) 15:45: 3D mouth 3 [facility] le[facility]ardo 7.5-325 mg 51 (three) l per tablet times a day. methocarbam 2017-09 Yes 750mg Q.[id number] Take 750 [facility] ol -[id number] (ROBAXIN) 15:45: 3D mouth 3 Hospi ta 500 MG 51 (three) l tablet times a day. Takes 500 mg 1.5 TAB. (750 mg) aspirin 2017-09 Yes 81mg QD Take 81 mg Meth bharati (ECOTRIN) -[address] 81 MG 15:45: daily. [facility]osp[facility] enteric 51 l coated tablet gabapentin 2017-09 Yes 600mg QD Take 600 [...] l Pure Magnesium albuterol 2017-09 Yes 1{puff} Q.[id number] Inhale 1 [facility] (PROAIR -[id number] HFA,PROVENT 15:45: 3D (three) [...] MG 15:45: daily. [facility]osp[facility] capsule 51 l MAGNESIUM 2017-09 Yes 1{tbl} QD Take 1 Meth bharati ORAL 1-[address] 15:45: mouth [facility]osp[facility] 51 daily. l Pure Magnesium albuterol 2017-09 Yes 1{puff} Q.[id number] Inhale 1 [facility] (PROAIR 1-[id number] HFA,PROVENT 15:45: 3D (three) [...] capsule 51 l HYDROcodone 2017-09 Yes 1{tbl} Q.[id number] Take 1 [facility] -acetaminop -[id number] hen (NORCO) 15:45: 3D mouth 3 [facility] leonardo 7.5-325 mg 51 (three) l per tablet times a day. methocarbam 2017-09 Yes 750mg Q.[id number] Take 750 [facility] ol -[id number] (ROBAXIN) 15:45: 3D mouth [...] l Pure Magnesium albuterol 2017-09 Yes 1{puff} Q.[id number] Inhale 1 [facility] (PROAIR -[id number] HFA,PROVENT 15:45: 3D (three) [...] capsule 51 l HYDROcodone 2017-09 Yes 1{tbl} Q.[id number] Take 1 [facility] -acetaminop -[id number] hen (NORCO) 15:45: 3D mouth 3 [facility] leonardo 7.5-325 mg 51 (three) l per tablet times a day. methocarbam 2017-09 Yes 750mg Q.[id number] Take 750 [facility] ol -[id number] (ROBAXIN) 15:45: 3D mouth [...] l Pure Magnesium albuterol 2017-09 Yes 1{puff} Q.[id number] Inhale 1 [facility] (PROAIR -[id number] HFA,PROVENT 15:45: 3D (three) [...] capsule 51 l HYDROcodone 2017-09 Yes 1{tbl} Q.[id number] Take 1 [facility] -acetaminop -[id number] hen (NORCO) 15:45: 3D mouth 3 [facility] le[facility]ardo 7.5-325 mg 51 (three) l per tablet times a day. methocarbam 2017-09 Yes 750mg Q.[id number] Take 750 [facility] ol -[id number] (ROBAXIN) 15:45: 3D mouth [...] l Pure Magnesium albuterol 2017-09 Yes 1{puff} Q.[id number] Inhale 1 [facility] (PROAIR -[id number] HFA,PROVENT 15:45: 3D (three) [...] capsule 51 l HYDROcodone 2017-09 Yes 1{tbl} Q.[id number] Take 1 [facility] -acetaminop -[id number] hen (NORCO) 15:45: 3D mouth 3 [facility] le[facility]ardo 7.5-325 mg 51 (three) l per tablet times a day. methocarbam 2017-09 Yes 750mg Q.[id number] Take 750 [facility] ol -[id number] (ROBAXIN) 15:45: 3D mouth [...] l Pure Magnesium albuterol 2017-09 Yes 1{puff} Q.[id number] Inhale 1 [facility] (PROAIR -[id number] HFA,PROVENT 15:45: 3D (three) [...] capsule 51 l HYDROcodone 2017-09 Yes 1{tbl} Q.[id number] Take 1 [facility] -acetaminop - [id number] tablet by st hen (NORCO) 15:45: 3D mouth 3 [facility] le[facility]ardo 7.5-325 mg 51 (three) l per tablet times a day. methocarbam 2017-09 Yes 750mg Q.[id number] Take 750 [facility] ol -[id number] (ROBAXIN) 15:45: 3D mouth [...] l Pure Magnesium albuterol 2017-09 Yes 1{puff} Q.[id number] Inhale 1 [facility] (PROAIR 1-[id number] HFA,PROVENT 15:45: 3D (three) [...] Common HCl HCl [facility] Immunizations Ordered Immunization Filled Immunization Date Status Commen ts Source Name Name SARS-COV-2 COVID-19 2021-06-21 Completed Un[facility] of PFIZER VACCINE 00:00:00 [facility] SARS-COV-2 COVID-19 2021-06-21 Completed Unive rsity of PFIZER VACCINE 00:00:00 [facility] SARS-COV-2 COVID-19 2021-06-21 Completed Unive rsity of PFIZER VACCINE 00:00:00 [facility] SARS-COV-2 COVID-19 2021-06-21 Completed Unive rsity of PFIZER VACCINE 00:00:00 [facility] SARS-COV-2 COVID-19 2021-06-21 Completed Unive rs[facility] of PFIZER VACCINE 00:00:00 [facility] SARS-COV-2 COVID-19 2021-06-21 Completed Unive rsity of PFIZER VACCINE 00:00:00 [facility] SARS-COV-2 COVID-19 2021-06-21 Completed Unive rsity of PFIZER VACCINE 00:00:00 [facility] SARS-COV-2 COVID-19 2021-05-31 Completed Unive rsity of PFIZER VACCINE 00:00:00 [facility] SARS-COV-2 COVID-19 2021-05-31 Completed [facility]ive rs[facility] of PFIZER VACCINE 00:00:00 [facility] SARS-COV-2 COVID-19 2021-05-31 Completed Unive rsity of PFIZER VACCINE 00:00:00 [facility] SARS-COV-2 COVID-19 2021-05-31 Completed Unive rs[facility] of PFIZER VACCINE 00:00:00 [facility] SARS-COV-2 COVID-19 2021-05-31 Completed Unive rsity of PFIZER VACCINE 00:00:00 [facility] SARS-COV-2 COVID-19 2021-05-31 Completed [facility]ive rsity of PFIZER VACCINE 00:00:00 [facility] SARS-COV-2 COVID-19 2021-05-31 Completed [facility]ive rs[facility] of PFIZER VACCINE 00:00:00 [facility] Sandy Sars-cov-2 2020-11-[facility] h Free 18-64 YRS Influenza, 2020-06-25 Completed [facility] quadrivalent, 00:00:00 injectable, preservative free Influenza, 2020-06-25 Completed [facility] quadrivalent, 00:00:00 injectable, preservative free Influenza, 2020-06-25 Completed [facility] quadrivalent, 00:00:00 injectable, preservative free Influenza, 2020-06-25 Completed [facility] quadrivalent, 00:00:00 injectable, preservative free Influenza, 2020-06-25 Completed [facility] recombinant, 00:00:00 quadrivalent, injectable, preservative free Influenza, 2020-06-25 Completed [facility] recombinant, 00:00:00 quadrivalent, injectable, preservative free Influenza, 2020-06-25 Completed [facility] quadrivalent, 00:00:00 injectable, preservative free Influenza, 2020-06-25 Completed [facility] quadrivalent, 00:00:00 injectable, preservative free Influenza High Dose 2020-05-10 Completed [facility] rsity of Quad 00:00:00 [facility] Influenza High Dose 2020-05-10 Completed Unive rsity of 00:00:00 [facility] Influenza High Dose 2020-05-10 Completed [facility]ive rs[facility] of Quad 00:00:00 [facility] Influenza High Dose 2020-05-10 Completed Unive rsity of 00:00:00 [facility] Influenza High Dose 2020-05-10 Completed [facility] of Quad 00:00:00 [facility] Influenza High Dose 2020-05-10 Completed Unive rsity of 00:00:00 [facility] Influenza High Dose 2020-05-10 Completed [facility]ive rs[facility] of Quad 00:00:00 [facility] Influenza High Dose 2020-05-10 Completed Unive rsity of 00:00:00 [facility] Influenza High Dose 2020-05-10 Completed [facility]ive rs[facility] of Quad 00:00:00 [facility] Influenza High Dose 2020-05-10 Completed Unive rsity of 00:00:00 [facility] Influenza High Dose 2020-05-10 Completed [facility]ive rs[facility] of Quad 00:00:00 [facility] Influenza High Dose 2020-05-10 Completed Unive rsity of 00:00:00 [facility] Influenza High Dose 2020-05-10 Completed [facility]ive rsity of Quad 00:00:00 [facility] Influenza High Dose 2020-05-10 Completed [facility]ive rsity of 00:00:00 [facility] Influenza, High Dose 2020-05-10 [facility] [facility] [...] Vaccine 2019-08-20 Completed [facility] of Recombinant 00:00:00 [facility] Zoster Vaccine 2019-08-20 Completed [facility] of Recombinant 00:00:00 [facility] Zoster Vaccine 2019-08-20 Completed [facility] of Recombinant 00:00:00 [facility] Zoster Vaccine 2019-08-20 Completed [facility] of Recombinant 00:00:00 [facility] Zoster Vaccine 2019-08-20 Completed [facility] Recombinant 00:00:00 [facility] Zoster Vaccine 2019-08-20 Completed [facility] Recombinant 00:00:00 [facility] Zoster Vaccine 2019-08-20 Completed [facility] Recombinant 00:00:00 [facility] Zoster, Recombinant 2019-08-[facility] [facility] [...] 00:00:00 MMR 2019-04-30 Completed [facility] 00:00:00 [facility] MMR 2019-04-30 Completed University of 00:00:00 [facility] MMR 2019-04-30 Completed University of 00:00:00 [facility] MMR 2019-04-30 Completed University of 00:00:00 [facility] MMR 2019-04-30 Completed University of 00:00:00 [facility] MMR 2019-04-30 Completed University of 00:00:00 [facility] MMR 2019-04-30 Completed [facility] of 00:00:00 [facility] MMR 2019-04-30 [facility] 00:00:00 MMR 2019-04-30 [facility] 00:00:00 MMR 2019-04-30 [facility]pleted [facility] 00:00:00 MMR 2019-04-30 Completed [facility] 00:00:00 MMR 2019-04-30 Completed [facility] 00:00:00 MMR 2019-04-30 [facility] 00[facility]00:00 MMR 2019-04-30 [facility]pleted [facility] 00:00:00 MMR 2019-04-30 [facility] 00:00:00 Zoster Vaccine 2019 Completed [facility] Recombinant 00:00:00 [facility] Zoster Vaccine 2019 Completed [facility] of Recombinant 00:00:00 [facility] Zoster Vaccine 2019 Completed [facility] of Recombinant 00:00:00 [facility] Zoster Vaccine 2019 Completed [facility] of Recombinant 00:00:00 [facility] Zoster Vaccine 2019 Completed [facility] of Recombinant 00:00:00 [facility] Zoster Vaccine 2019 Completed [facility] of Recombinant 00:00:00 [facility] Zoster Vaccine 2019 Completed [facility] of Recombinant 00:00:00 [facility] Zoster, Recombinant [facility] [...] 2009-08-27 Completed [facility] Vaccine 00:00:00 [facility] Influenza Virus 2009-08-27 Completed [facility]it y of Vaccine 00:00:00 [facility] Influenza Virus 2009-08-27 Completed [facility]it y of Vaccine 00:00:00 [facility] Influenza Virus 2009-08-27 Completed [facility]it y of Vaccine 00:00:00 [facility] Influenza Virus 2009-08-27 Completed Universit y of Vaccine 00:00:00 [facility] Influenza Virus 2009-08-27 Completed Universit y of Vaccine 00:00:00 [facility] Influenza Virus 2009-08-27 Completed [facility]it y of Vaccine 00:00:00 [facility] Influenza, 2009-08-27 [facility] Unspecified 00:00:00 [...] Time Observation Value Comments Source Systolic blood 2022-09-14 21:30:00 125 mm[Hg] Univer sity of pressure [facility] Diastolic blood 2022-09-14 21:30:00 58 mm[Hg] Unive rsity of [facility] Heart rate 2022-09-14 21:30:00 70 /min [facility] Respiratory rate 2022-09-14 21:30:00 13 /min [facility] Oxygen saturation in 2022-09-14 21:30:00 91 /min [facility] Arterial blood by [facility] Pulse oximetry Branch Body temperature 2022-09-14 17:10:00 36.89 Kelly [facility] Body height 2022-09-14 17:10:00 162.6 cm [facility] Body weight 2022-09-14 17:10:00 84.369 kg [facility] BMI 2022-09-14 17:10:00 31.93 kg/m2 [facility] Systolic blood 2022-06-29 17:21:00 183 mm[Hg] Univer sity of pressure [facility] Diastolic blood 2022-06-29 17:21:00 98 mm[Hg] Unive rsity of pressure [facility] Heart rate 2022-06-29 17:21:00 73 /min [facility]i ty of [facility] Body temperature 2022-06-29 17:21:00 36.72 Kelly Univ ersity of [facility] Respiratory rate 2022-06-29 17:21:00 22 /min Univ ersity of [facility] Body height 2022-06-29 17:21:00 162.6 cm Universi ty of [facility] Body weight 2022-06-29 17:21:00 86.183 kg Universi ty of [facility] BMI 2022-06-29 17:21:00 32.61 kg/m2 Universi ty of [facility] Oxygen saturation in 2022-06-29 17:21:00 97 /min [facility] Arterial blood by [facility] Pulse oximetry Branch Systolic blood 2022-05-06 15:23:00 156 mm[Hg] Univer sity of [facility] Diastolic blood 2022-05-06 15:23:00 72 mm[Hg] Unive rsity of [facility] Heart rate 2022-05-06 15:23:00 72 /min Universi ty of [facility] Body temperature 2022-05-06 15:23:00 35.72 [facility] Body height 2022-05-06 15:23:00 162.6 cm [facility] Body weight 2022-05-06 15:23:00 89.359 kg Universi ty of [facility] BMI 2022-05-06 15:23:00 33.81 kg/m2 Universi ty of [facility] Systolic blood 2021-09-11 20:47:00 139 mm[Hg] [facility] [...] Systolic (mm Hg) 2019-11-21 15:32:00 Brennen rial [place] Diastolic (mm Hg) 2019-11-21 15:32:00 Mem orial [facility] Heart Rate 2019-11-21 12:57:00 [facility] Respitory Rate 2019-11-21 12:57:00 Memori al [facility] Systolic (mm Hg) 2019-11-21 12:57:00 Brennen rial [place] Diastolic (mm Hg) 2019-11-21 12:57:00 Mem [facility] Heart Rate 2019-11-21 08:37:00 [facility] Respitory Rate 2019-11-21 08:37:00 Memori al [facility] Systolic (mm Hg) 2019-11-21 08:37:00 Brennen rial [place] Diastolic (mm Hg) 2019-11-21 08:37:00 Mem orial [facility] Temperature Oral (F) 2019-11-18 12:00:00 98.3 F [facility] Weight 2019-11-18 11:45:00 [facility] BMI Calculated 2019-11-18 11:45:00 [facility] Height 2019-11-14 19:59:00 162.56 cm [facility] Systolic (mm Hg) 2019-11-14 17:59:00 Brennen Carbajal Diastolic (mm Hg) 2019-11-14 17:59:00 Thomas Carbajal Heart Rate 2019-11-14 17:59:00 Mayo Carbajal Height 2019-11-14 17:59:00 162.56 cm [facility] Weight 2019-11-14 17:59:00 [facility] BMI Calculated 2019-11-14 17:59:00 Liliya Duarte Procedures Procedure Date / Time Performing Clinician Source Performed CT ABDOMEN PELVIS W 2022-09-14 19:16:14 Mari Mitchell [facility] CONTRAST [facility] LIPASE 2022-09-14 18:47:00 Mari Mitchell [facility] HEPATIC FUNCTION PANEL 2022-09-14 18:47:00 Mari Mitchell [facility] ([id number]) (ALB,T.PRO,BILI Medical Branch T,BU/BC,ALT,AST,ALK PHOS) BASIC METABOLIC PANEL 2022-09-14 18:47:00 Mari Mitchell [facility] (NA, K, CL, CO2, GLUCOSE, Medica l Branch BUN, CREATININE, CA) CBC WITH DIFF 2022-09-14 18:47:00 Mari Mitchell [facility] URINALYSIS 2022-09-14 18:47:00 Mari Mitchell [facility] CONSENT/REFUSAL FOR 2022-09-14 17:08:52 Doctor Areli [facility] DIAGNOSIS AND TREATMENT [facility] REFERRAL- 2022-08-26 06:01:00 Doctor Areli, [facility] REQUEST/RESPONSE [facility] FL SMALL BOWEL SERIES 2022-07-02 15:57:31 Pradip Yung [facility] ASSIGNMENT OF BENEFITS 2022-06-29 18:10:12 [facility] CREATINE KINASE 2022-06-29 17:56:00 Yobany Zackary [facility] MAGNESIUM 2022-06-29 17:56:00 [facility] BASIC METABOLIC PANEL 2022-06-29 17:56:00 Zackary Haywood [facility] (NA, K, CL, CO2, GLUCOSE, Medica l Branch BUN, CREATININE, CA) CONSENT/REFUSAL FOR 2022-06-29 17:15:25 Doctor Unassigned, [facility] DIAGNOSIS AND TREATMENT [facility] XR LUMBAR SPINE 2 VW 2022-05-06 15:32:47 Armond Montoya [facility] REFERRAL- 2022-04-25 05:01:00 Doctor Unassigned, [facility] REQUEST/RESPONSE [facility] MRI LUMBAR SPINE WO 2021-03-19 13:02:57 Josh [facility] CONTRAST [place] ARTHROCENTESIS 2021-02-27 14:41:46 Josh [facility] ASPIR&/INJ MAJOR JT/BURSA W/O US XR LUMBAR SPINE AP 2020-11-13 14:56:47 Royce Rivers [facility] LATERAL FLEXION AND EXTENSION Knee [facility] replacement<sup>1</sup> Gallbladder operation [facility] Rotator cuff repair [facility] Lumbar laminectomy and [facility] excision of intradural spinal lesion Hysterectomy [facility] Appendectomy [facility] Cataract extraction [facility] Plan of Care Planned Activity Planned Date Details Comments Source Future Scheduled 2022-08-31 COVID-19 VACCINE (#1) [facility] Test 04:20:34 [code = COVID-19 VACCINE (#1)] Future Scheduled 2022-08-31 Hepatitis C screening [facility] Test 04:20:34 (procedure) [code = 869989499] Future Scheduled 2022-08-31 Screening for [facility] Test 04:20:34 malignant neoplasm of cervix (procedure) [code = 776595261] Future Scheduled 2022-08-31 BREAST CANCER [facility] Test 04:20:34 SCREENING [code = BREAST CANCER SCREENING] Future Scheduled 2022-08-31 COLONOSCOPY SCREENING [facility] Test 04:20:34 [code = COLONOSCOPY SCREENING] Future Scheduled 2022-08-31 INFLUENZA VACCINE [facility] Test 04:20:34 [code = INFLUENZA VACCINE] Future Scheduled 2022-08-31 COVID-19 VACCINE (#1) [facility] Test 04:20:34 [code = COVID-19 VACCINE (#1)] Future Scheduled 2022-08-31 Hepatitis C screening [facility] Test 04:20:34 (procedure) [code = 309731329] Future Scheduled 2022-08-31 Screening for [facility] Test 04:20:34 malignant neoplasm of cervix (procedure) [code = 760917085] Future Scheduled 2022-08-31 BREAST CANCER [facility] Test 04:20:34 SCREENING [code = BREAST CANCER SCREENING] Future Scheduled 2022-08-31 COLONOSCOPY SCREENING [facility] Test 04:20:34 [code = COLONOSCOPY SCREENING] Future Scheduled 2022-08-31 INFLUENZA VACCINE Method [facility] Test 04:20:34 [code = INFLUENZA VACCINE] Future Scheduled 2022-05-29 HEPATITIS B VACCINES Met [facility] Test 07:48:01 (1 of 3 - 3-dose series) [code = HEPATITIS B VACCINES (1 of 3 - 3-dose series)] Future Scheduled 2022-05-29 COVID-19 VACCINE (#1) [facility] Test 07:48:01 [code = COVID-19 VACCINE (#1)] Future Scheduled 2022-05-29 Hepatitis C screening [facility] Test 07:48:01 (procedure) [code = 904466312] Future Scheduled 2022-05-29 Screening for [facility] Test 07:48:01 malignant neoplasm of cervix (procedure) [code = 559921961] Future Scheduled 2022-05-29 BREAST CANCER [facility] Test 07:48:01 SCREENING [code = BREAST CANCER SCREENING] Future Scheduled 2022-05-29 COLONOSCOPY SCREENING [facility] Test 07:48:01 [code = COLONOSCOPY SCREENING] Future Scheduled 2022-05-29 INFLUENZA VACCINE [facility] Test 07:48:01 [code = INFLUENZA VACCINE] Future Scheduled 2022-05-29 HEPATITIS B VACCINES Met [facility] Test 07:48:01 (1 of 3 - 3-dose series) [code = HEPATITIS B VACCINES (1 of 3 - 3-dose series)] Future Scheduled 2022-05-29 COVID-19 VACCINE (#1) [facility] Test 07:48:01 [code = COVID-19 VACCINE (#1)] Future Scheduled 2022-05-29 Hepatitis C screening [facility] Test 07:48:01 (procedure) [code = 939144323] Future Scheduled 2022-05-29 Screening for [facility] Test 07:48:01 malignant neoplasm of cervix (procedure) [code = 846692636] Future Scheduled 2022-05-29 BREAST CANCER [facility] Test 07:48:01 SCREENING [code = BREAST CANCER SCREENING] Future Scheduled 2022-05-29 COLONOSCOPY SCREENING [facility] Test 07:48:01 [code = COLONOSCOPY SCREENING] Future Scheduled 2022-05-29 INFLUENZA VACCINE [facility] Test 07:48:01 [code = INFLUENZA VACCINE] Future Scheduled 2022-05-06 HEPATITIS B VACCINES Met [facility] Test 10:13:08 (1 of 3 - 3-dose series) [code = HEPATITIS B VACCINES (1 of 3 - 3-dose series)] Future Scheduled 2022-05-06 COVID-19 VACCINE (#1) [facility] Test 10:13:08 [code = COVID-19 VACCINE (#1)] Future Scheduled 2022-05-06 Hepatitis C screening [facility] Test 10:13:08 (procedure) [code = 168516181] Future Scheduled 2022-05-06 Screening for [facility] Test 10:13:08 malignant neoplasm of cervix (procedure) [code = 922975921] Future Scheduled 2022-05-06 BREAST CANCER [facility] Test 10:13:08 SCREENING [code = BREAST CANCER SCREENING] Future Scheduled 2022-05-06 COLONOSCOPY SCREENING [facility] Test 10:13:08 [code = COLONOSCOPY SCREENING] Future Scheduled 2022-05-06 INFLUENZA VACCINE Method [facility] Test 10:13:08 [code = INFLUENZA VACCINE] Future Scheduled 2021-09-19 COVID-19 VACCINE (1) Met [facility] Test 04:08:39 [code = COVID-19 VACCINE (1)] Future Scheduled 2021-09-19 Hepatitis C screening [facility] Test 04:08:39 (procedure) [code = 174112018] Future Scheduled 2021-09-19 Screening for [facility] Test 04:08:39 malignant neoplasm of cervix (procedure) [code = 107972449] Future Scheduled 2021-09-19 BREAST CANCER [facility] Test 04:08:39 SCREENING [code = BREAST [...] [facility] 04:08:39 (procedure) [code = 691845214] Future Scheduled 2021-09-19 Screening for [facility] Test 04:08:39 malignant neoplasm of cervix (procedure) [code = 757781492] Future Scheduled 2021-09-19 BREAST CANCER [facility] Test 04:08:39 SCREENING [code = BREAST [...] [facility] (procedure[facility] [code = 584313710] Future Scheduled Screening for [facility] Test malignant neoplasm of cervix (procedure) [code = 544362150] Future Scheduled BREAST CANCER [facility] Test SCREENING [code = BREAST CANCER SCREENING] Future Scheduled [facility]COPY [facility]ING [facility] [code = COLONOSCOPY SCREENING] Future Scheduled INFLUENZA VACCINE [facility] Test [code = INFLUENZA VACCINE] Encounters Start End Encounter Admission Attending Care Care Encounter Source Date/Time Date/Time Type Type Clinicians Facility Department ID 2022-06-09 Outpatient Adilson [facility] [id number] Common 14:43:01 Baljeet [facility] 2022-03-11 Outpatient Adilson [facility] [id number] Common 07:59:00 Baljeet [facility] 2022-03-07 Outpatient De Anda, STLMLC STLMLC [id number] Common 09:35:01 Baljeet [facility] 2022-02-20 Outpatient De Anda, STLMLC STLMLC [id number] Common 15:57:00 Baljeet [facility] 2022-02-07 Outpatient GIANNA ROBERTS [facility] 7501 13:35:33 [facility] 2021-10-02 Outpatient De Anda, STLMLC STLMLC [id number] Common 14:26:56 Baljeet 64669 [facility] 2021-10-02 Outpatient De Anda, STLMLC STLMLC [id number] Common 14:26:22 Baljeet 06357 [facility] 2021-10-02 Outpatient De Anda, STLMLC STLC [id number] Common 14:17:54 Baljeet 23956 [facility] 2021-10-02 Outpatient Guerrero, STLMLC STLC [id number] Common 14:09:58 Vira 04499 [facility] 2021-10-02 Outpatient Millender, STLMLC STLC [id number] Common 11:05:50 Tawana 41039 [facility] 2021-10-02 Outpatient Millender, STLMLC STLC [id number] Common 11:03:36 Tawana 30934 [facility] 2021-07-09 Emergency [facility] [id number] Univers 03:44:02 [facility] 2021-07-08 Emergency [facility] [id number] Univers 21:59:46 [facility] 2021-07-06 Inpatient [facility] [id number] Univers 00:05:05 [facility] 2021-07-05 Outpatient Christine HANCOCK [facility] [place] [id number] Univers 16:33:55 [facility] 2022-09-14 2022-09-14 Emergency [facility] ERT [id number] Univers 11:11:00 16:00:00 , MARI ity of [facility] 2022-09-14 2022-09-14 Emergency [facility] 1.2.840.114 [id number] Univers 11:11:00 16:00:00 , Mari SOLER 350.1.13.10 i ty of [place] 4.2.7.2.686 [facility] [id number] [facility] [address] 2022-08-26 2022-08-26 Orders Doctor ROYCE 1.2.840.114 [id number] Univers 00:00:00 00:00:00 Only Unassigned, AVA 350.1.13.10 ity of [place] [facility] 4.2.7.2.[address] [place] [address] [id number] [facility] [address] 2022-07-02 2022-07-02 [facility] [id number] Univers 09:02:16 23:59:00 PRADIP ity of [facility] 2022-07-02 2022-07-02 [facility] 1.2.840.114 [id number] Univers 09:02:16 23:59:00 Encounter Pradip SOLER 350.1.13.10 ity of [facility] 4.2.7.2.[address] [place] [address] [id number] [facility] [address] 2022-06-29 2022-06-29 Emergency X [facility] ERT [id number] Univers 12:22:00 14:19:00 ZACKARY ity of [facility] 2022-06-29 2022-06-29 Emergency [facility] 1.2.064.523 [id number] Univers 12:22:00 14:19:00 Zackary SOLER 350.1.13.10 i ty of [place] 4.2.7.[address] [place] [address] [phone] [facility] [address] 2022-05-06 2022-05-06 [facility] 1.2.840.114 [id number] Univers 10:25:00 23:59:00 Encounter Armond AGUILAR 350.1.13.10 ity of [facility] 4.2.7.2.686 [facility] CENTER AT [phone] Id natalee DUKES 809 [facility] 2022-05-06 2022-05-06 [facility] [id number] Univers 10:00:00 15:17:56 ALE ity [facility] 2022-05-06 2022-05-06 [facility] [id number] Univers 10:00:00 15:17:56 ALE ity [facility] 2022-05-06 2022-05-06 Office [facility] 1.2.840.114 [id number] Univers 10:00:00 10:20:00 Visit [facility] 350.1.13.10 ity of [facility] 4.2.7.2.686 [facility] CENTER AT [phone] Id natalee DUKES 198 [facility] 2022-05-06 2022-05-06 Outpatient [facility] [id number] Univers 10:00:00 10:00:00 [facility] 2022-05-02 2022-05-02 [facility] [id number] Univers 08:29:48 23:59:00 [facility] 2022-05-02 2022-05-02 [facility] [id number] Univers 08:45:00 09:33:27 [facility] 2022-05-02 2022-05-02 Office [facility] 1.2.840.114 [id number] Univers 08:45:00 09:00:00 Visit [facility] 350.1.13.10 it y of [place] 4.2.7.2.686 Claudio as JOANN?BLEA [phone] Id natalee PAUL 198 [facility] OFFICE [facility] 2022-05-02 2022-05-02 [facility] [id number] Univers 08:45:00 08:45:00 [facility] 2022-04-25 2022-04-25 Orders Doctor CRANE 1.2.840.114 [id number] Univers 00:00:00 00:00:00 Only Unassigned, AVA 350.1.13.10 ity of [place] [facility] 4.2.7.2.686 Claudio as [phone] [facility] [address] 2022-04-23 2022-04-23 Outpatient R MIAH [facility] [id number] Univers 13:00:00 13:00:00 PRICILLA ity [facility] 2022-03-13 2022-03-13 Outpatient R NAVJOT [facility] [id number] Univers 11:57:09 23:59:00 PRADIP ity [facility] 2022-03-13 2022-03-13 [facility] Yung, [facility] 1.2.840.114 [id number] Univers 11:57:09 23:59:00 Encounter Pradip SOLER 350.1.13.10 ity of [place] 4.2.7.2.686 [place] [id number] [facility] [address] 2022-02-08 2022-02-08 Emergency X TRENA, [facility] ERT [id number] Univers 18:45:00 21:46:00 [facility]ANGELISTA [facility] 2022-02-08 2022-02-08 [facility] 1.2.840.114 [id number] Univers 18:45:00 21:46:00 Evangelista B KARLENE 350.1.13.10 i ty of [place] 4.2.7.2.686 [place] [phone] [facility] [address] 2022-02-08 2022-02-08 Nurse Nurse, [facility] 1.2.840.114 [id number] Univers 18:15:00 18:35:00 Visit Manoj [facility] 350.1.13.10 ity of [place] 4.2.7.2.686 Claudio as JOANN?BLEA [phone] Id bryant[address] MEDICAL OFFICE BUILDING 2022-02-08 2022-02-08 Outpatient Christine VELAZQUEZ [facility] [id number] Univers 18:15:00 18:15:00 LISA tristan [facility] 2022-02-08 2022-02-08 Outpatient Christine VELAZQUEZ [facility] [id number] Univers 18:00:00 18:00:00 LISA [facility] 2022-01-17 2022-01-17 Outpatient R NAVJOT [facility] [id number] Univers 00:00:00 00:00:00 PRADIP tristan [facility] 2022-01-09 2022-01-09 Outpatient R NAVJOT [facility] [id number] Univers 00:00:00 00:00:00 [facility] 2021-12-04 2021-12-04 Office [facility] 1.2.525.039 [id number] Univers 13:15:00 14:09:10 Visit Pee [facility] 350.1.13.10 it y of [place] 4.2.7.2.686 Claudio as JOANN?BLEA [phone] Id bryant[address] 2021-12-04 2021-12-04 Outpatient R RADIOLOGY [facility] RAD [id number] Univers 00:00:00 00:00:00 [facility] 2021-12-03 2021-12-03 Emergency X [facility] E[facility] [id number] Univers 14:02:00 17:34:00 ZACKARY tristan [facility] 2021-12-03 2021-12-03 Emergency [facility] 1.2.373.745 [id number] Univers 14:02:00 17:34:00 Zackary [place] 350.1.13.10 i ty of [place] 4.2.7.2.686 [place] [facility] [id number] [address] 2021-12-03 2021-12-03 Emergency X [facility] ERT [id number] Univers 14:02:00 17:34:00 ZACKARY tristan [facility] 2021-11-19 2021-11-19 Telephone [facility] 1.2.840.114 [id number] Univers 00:00:00 00:00:00 Pee Pagan [facility] 350.1.13.10 it y [facility] 4.2.7.2.686 Claudio as JOANN?BLEA [phone] Id dical KNEY [address] MEDICAL OFFICE BUILDING 2021-11-18 2021-11-18 Outpatient R [facility] SOR [id number] Univers 06:51:00 11:10:00 PEE ity of [facility] 2021-11-18 2021-11-18 [facility] 1.2.840.114 [id number] Univers 06:51:00 11:10:00 Encounter Pee SOLER 350.1.13.10 ity of [place] 4.2.7.2.686 [place] SURGICAL [id number] [facility] [address] 2021-11-18 2021-11-18 Surgery [facility] 1.2.117.883 [id number] Univers 08:30:00 09:46:00 Pee SOLER 350.1.13.10 i ty of [facility] 4.2.7.2.686 [place]ICAL [phone] [facility] [address] 2021-11-18 2021-11-18 Surgery [facility] 1.2.302.978 [id number] Univers 08:30:00 09:46:00 Pee Pagan KARLENE 350.1.13.10 i ty of [place] 4.2.7.2.686 [place] SUR[place]ICAL [id number] [facility] [address] 2021-11-18 2021-11-18 Anesthesia Alireza Ceja [facility] 1.2.840.11 [id number] Univers 08:04:00 08:55:00 Event Royce Turcios 350.1.13.10 ity of [place] 4.2.7.2.686 [place] SUR[place]ICAL [id number] [facility] [address] 2021-11-18 2021-11-18 Orders Doctor ROYCE 1.2.840.114 [id number] Univers 00:00:00 00:00:00 Only Unassigned, AVA 350.1.13.10 ity of [place] [facility] 4.2.7.2.686 Claudio as [phone] [facility] [address] 2021-11-15 2021-11-15 [facility] 1.2.840.114 [id number] Univers 08:13:40 23:59:00 Encounter Pee SOLER 350.1.13.10 ity of [facility] 4.2.7.2.686 [place] C[place] [id number] [facility] [address] 2021-11-15 2021-11-15 Outpatient R SANTI [facility] [id number] Univers 08:13:23 23:59:00 PEE alanis [facility] 2021-11-15 2021-11-15 Vice President Network Lizzie, Adc Lab Main [facility] 1.2.8 40.114 [id number] Univers 09:15:00 09:30:00 Visit Pee [place] 350.1.13.10 ity of [place] 4.2.7.2.686 [place] [facility] [phone] Id dical NAL 353 [facility] 2021-11-06 2021-11-06 Telephone [facility] 1.2.840.114 [id number] Univers 00:00:00 00:00:00 Pee Pagan HEALTH 350.1.13.10 it y of [place] 4.2.7.2.686 Claudio as JOANN?BLEA [phone] Id dical KNEY 198 [facility] OFFICE [facility] 2021-11-04 2021-11-04 Prep For [facility] 1.2.840.114 [id number] Univers 00:00:00 00:00:00 Surgery Pee Pagan HEALTH 350.1.13.10 it y of [place] 4.2.7.2.686 Claudio as JOANN?BLEA [id number] Id dical KNEY 198 [facility] OFFICE [facility] 2021-10-31 2021-10-31 Outpatient R [facility] RAD [id number] Univers 08:25:00 23:59:00 PEE alanis [facility] 2021-10-31 2021-10-31 Office [facility] 1.2.346.662 [id number] Univers 08:15:00 09:27:22 Visit Pee Pagan HEALTH 350.1.13.10 it y of [place] 4.2.7.2.686 Claudio as JOANN?BLEA [id number] Id dical KNEY 198 [facility] OFFICE BUILDING 2021-10-31 2021-10-31 Outpatient R [facility] RAD [id number] Univers 08:15:00 08:15:00 PEE alanis [facility] 2021-10-31 2021-10-31 Orders Doctor ROYCE 1.2.840.114 [id number] Univers 00:00:00 00:00:00 Only Unassigned, AVA 350.1.13.10 ity of [place] [facility] 4.2.7.2.686 Claudio as [phone] [address] 2021-10-24 2021-10-24 [facility] [id number] Univers 09:45:00 09:45:00 PEE alanis [facility] 2021-10-18 2021-10-18 Orders Doctor ROYCE 1.2.840.114 [id number] Univers 00:00:00 00:00:00 Only Unassigned, AVA 350.1.13.10 ity of [place] [facility] 4.2.7.2.686 Claudio as [phone] [address] 2021-10-01 2021-10-01 Orders Doctor ROYCE 1.2.840.114 [id number] Univers 00:00:00 00:00:00 Only Unassigned, AVA 350.1.13.10 ity of [place] [facility] 4.2.7.2.686 Claudio as [phone] [address] 2021-09-11 2021-09-11 Office LORENE Gupta [facility] 1.2.840.114 [id number] PA 15:00:00 15:21:08 Visit Shinil SUGAR 350.1.13.58 [facility] 9.2.7.2.686 [address] [phone] AND 4 WOMENS 2021-09-06 2021-09-06 Emergency [facility] 1.2.413.046 [id number] Univers 10:43:00 12:44:00 Marilia SOLER 350.1.13.10 ity of [facility] 4.2.7.2.686 [place] [facility] [phone] [address] 2021-09-06 2021-09-06 Outpatient Christine KELLY [facility] ERT [id number] Univers 09:40:00 10:58:27 BRITTNI [facility] 2021-09-06 2021-09-06 Urgent Richard [facility] 1.2.840.114 [id number] Univers 09:40:00 10:00:00 Care [facility] 350.1.13.10 it y of [place] 4.2.7.2.686 Claudio as JOANN?BLEA [phone] Id natalee [address] MEDICAL OFFICE BUILDING 2021-09-06 2021-09-06 Out[facility] [id number] Univers 09:40:00 09:40:[address] [facility] 2021-09-06 2021-09-06 Orders Doctor ROYCE 1.2.840.114 [id number] Univers 00:00:00 00:00:00 Only Unassigned, AVA 350.1.13.10 ity of [place] [facility] 4.2.7.2.686 Claudio as [phone] [facility] [address] 2021-08-14 2021-08-14 Outpatient R LUCINDAGRACIAANIL [facility] [id number] Univers 10:00:00 10:00:00 PETER [facility] 2021-08-07 2021-08-07 Emergency X [facility] ERT [id number] Univers 10:39:00 11:30:00 RICARDO [facility] 2021-08-07 2021-08-07 Emergency [facility] 1.2.935.012 [id number] Univers 10:39:00 11:30:00 Ricardo S [place] 350.1.13.10 i ty [facility] 4.2.7.2.686 [place] [phone] [facility] [address] 2021-06-25 2021-07-25 OP Therapy nullFlavo SMR [id number] Memoria 16:00:00 05:59:00 Patients r [place] 00 l Ahmet Alex [facility] 2021-06-25 2021-07-25 OP Therapy nullFlavo SMR [id number] Memoria 16:00:00 05:59:00 Patients r [place] 00 l Ahmet Alex [facility] 2021-06-25 2021-07-24 Outpatient Tammy 2.16.840. 2.16.840. 1. [id number] 11:00:00 23:59:00 Josh pham 1.724364. 788269.3.61 00 3.615.57 5.57 2021-06-13 2021-06-13 Outpatient R EMANUEL, [facility] [id number] [facility] 08:00:00 08:00:00 ALISTAIR alanis [facility] 2021-06-12 2021-06-12 EXT [facility] OP Tammy EXT MSRDP 1.2.840.1 14 [id number] PA 00:00:00 00:00:00 Josh pham 350.1.13.58 Health 9.2.7.2.686 [id number] 0 2021-06-12 2021-06-12 EXT [facility] OP Tammy EXT MSRDP 1.2.840.1 14 [id number] [place] 00:00:00 00:00:00 Josh pham 350.1.13.58 Health 9.2.7.2.686 [phone] 0 2021-06-10 2021-06-10 Emergency [facility] 1.2.674.601 [id number] Univers 14:17:00 16:42:00 Kendrick Karlene 350.1.13.10 i [facility] 4.2.7.2.686 [facility] [phone] [address] 2021-06-07 2021-06-07 Outpatient R HALEY, [facility] [id number] [facility] 10:00:00 10:00:00 BRITTANEY alanis [facility] 2021-06-05 2021-06-05 Office Tammy [facility] 1.2.840.114 12 [id number] PA 08:01:02 09:18:56 Visit Josh pham LUNA 350.1.13.58 Health MEDICAL 9.2.7.2.686 [address] 5 [phone] 7 2021-05-18 2021-05-18 Emergency Glendy [facility] 1.2.247.051 [id number] Univers 10:38:00 13:19:00 Ricardo Soler 350.1.13.10 i ty of [place] 4.2.7.2.686 [place] [id number] [facility] [address] 2021-05-18 2021-05-18 Orders Doctor CRANE 1.2.840.114 [id number] Univers 00:00:00 00:00:00 Only Unassigned, AVA 350.1.13.10 ity of [facility] 4.2.7.2.686 Claudio [phone] [facility] [address] 2021-04-11 2021-04-11 Outpatient TAMMY [facility] [id number] PA 09:44:24 09:44:24 JOSH Pham h 2021-03-26 2021-03-26 Orders LORENE Siu [facility] 1.2.840.114 [id number] [place] 00:00:00 00:00:00 Only Armond CARRASCO 350.1.13.58 [facility] MEDICAL 9.2.7.2.686 [address] [id number] 7 2021-03-26 2021-03-26 Orders LORENE Siu [facility] 1.2.840.114 [id number] 2001 00:00:00 00:00:00 Only Armond CARRASCO 350.1.13.58 MEDICAL 9.2.7.2.686 [address] [id number] 7 2021-03-19 2021-03-20 Outpt Diag nullFlavo [facility] [id number] Memoria 12:30:00 04:59:00 Services r Outpatient 00 l Imaging Solomon [place] 2021-03-19 2021-03-20 Outpt Diag nullFlavo [facility] [id number] Memoria 12:30:00 04:59:00 Services r Outpatient 00 l Imaging Solomon [place] 2021-03-19 2021-03-19 Outpatient Tammy MHOIP MHOIP [id number] 07:30:00 23:59:00 ankit Josh 00 2021-03-18 2021-03-18 EXT [facility] OP Tammy EXT MSRDP 1.2.840.1 14 [id number] PA 00:00:00 00:00:00 e, Josh FALL 350.1.13.58 Health 9.2.7.2.686 [id number] 0 2021-02-27 2021-02-27 Office Tammy [facility] 1.2.840.114 12 [id number] PA 08:29:48 10:00:26 Visit e, Josh CARRASCO 350.1.13.58 Health MEDICAL 9.2.7.2.686 [address] 2 [id number] 7 2021-02-27 2021-02-27 Office Tammy [facility] 1.2.840.114 12 [id number] 08:29:48 10:00:26 Visit e, Josh CARRASCO 350.1.13.58 MEDICAL 9.2.7.2.686 [address] 4 [id number] 7 2021-02-25 2021-02-25 Outpatient [facility] [id number] PA 10:35:57 10:35:57 Health 2020-11-13 2020-11-13 [facility] Royce Rivers 1.2.840.1 [id number] Methodi 08:27:59 23:59:00 Encounter Jungsik 80548.1.[address] 3.430.2.7 Hospit a .3.734342 l .8 2020-11-13 2020-11-13 Travel 1.2.840.1 1.2.990.979 5547 [id number] Methodi 00:00:00 00:00:[address] 3.430.2.7 0.2.7.3.698 Ho spita .3.704992 084.8 l .8 2020-11-13 2020-11-13 Transcribe Royce Rivers 1.2.840.1 [id number] Methodi 00:00:00 00:00:00 Orders [address]ungsik 08053.1.[address] 3.430.2.7 Hospit a .3.964906 l .8 2020-11-09 2020-11-09 Orders Doctor CRANE 1.2.840.114 [id number] 00:00:00 00:00:00 Only Unassigned, [place] 350.1.13.10 [place] [facility] 4.2.7.2.686 [id number] 009 2020-10-05 2020-10-05 Telephone Miah [facility] 1.2.993.142 [id number] 00:00:00 00:00:00 Pricilla S Health 350.1.13.10 Surgical 4.2.7.2.686 Specialti [id number] es [address] 2020-09-27 2020-09-27 [facility] 1.2.840.114 [id number] 08:21:38 23:59:00 Encounter Pee Pagan Health 350.1.13.10 Surgical 4.2.7.2.686 Specialti [id number] es [address] 2020-09-27 2020-09-27 Office [facility] 1.2.624.775 [id number] 07:50:24 08:32:23 Visit Pee Pagan [facility] 350.1.13.10 Surgical 4.2.7.2.686 Specialti [phone] es [address] 2020-09-27 2020-09-27 [facility] [id number] Univers 08:00:00 08:00:00 [facility] 2020-09-24 2020-09-24 Orders Doctor CRANE 1.2.840.114 [id number] 00:00:00 00:00:00 Only Unassigned, [place] 350.1.13.10 [place] [facility] 4.2.7.2.686 [id number] 009 2020-08-23 2020-08-23 [facility] [id number] Univers 08:45:00 08:45:00 [facility] 2020-08-22 2020-08-22 [facility] [id number] Univers 13:15:00 13:15:00 [facility] 2020-07-25 2020-07-25 [facility] [id number] Univers 14:00:00 14:00:00 [facility] 2020-07-23 2020-07-23 Ambulatory nullFlavo [facility] [id number] Memoria 20:00:00 20:00:00 Pre-Reg r Cardiology 05 l Reema kaur 2020-07-23 2020-07-23 Ambulatory nullFlavo [facility] [id number] Memoria 20:00:00 20:00:00 Pre-Reg r Cardiology 05 l Reema Forbes n 2020-07-23 2020-07-23 Outpatient Maniar, [facility] [id number] 14:00:00 14:00:00 Gilmer H 05 2020-07-17 2020-07-17 Outpatient Christine MIAH [facility] [id number] Univers 11:15:00 11:15:00 PRICILLA tristan [facility] 2020-07-06 2020-07-06 [facility] [id number] Univers 08:45:00 08:45:00 [facility] 2020-06-29 2020-06-29 [facility] [id number] Univers 08:15:00 08:15:00 [facility] 2020-06-22 2020-06-22 [facility] [id number] Univers 10:30:00 10:30:00 [facility] 2020-06-20 2020-06-20 [facility] [id number] Univers 14:45:00 14:45:00 [facility] 2020-06-07 2020-06-07 [facility] [id number] Univers 09:15:00 09:15:00 [facility] 2020-05-30 2020-05-30 [facility] [id number] Univers 13:00:00 13:00:00 [facility] 2020-05-18 2020-05-18 Out[facility] [id number] Univers 10:45:00 10:45:00 [facility] 2020-05-16 2020-05-16 Outpatient MHIE [facility] [id number] Memoria 13:30:00 13:30:00 05 elle Carbajal 2020-05-09 2020-05-09 Outpatient Christine HANCOCK [facility] [id number] Univers 14:15:00 14:15:00 PEEROLO alanis [facility] 2020-05-08 2020-05-08 Outpatient Christine HANCOCK [facility] [id number] Univers 12:00:00 12:00:00 PEEROLO alanis [facility] 2020-05-03 2020-05-03 Outpatient Christine HANCOCK [facility] [id number] Univers 08:00:00 08:00:00 PEEROLO alanis [facility] 2020-04-12 2020-04-12 Outpatient Christine HANCOCK [facility] [id number] Univers 10:45:00 10:45:00 PEEROLO alanis [facility] 2020-04-10 2020-04-10 Outpatient Christine HANCOCK [facility] [id number] Univers 09:00:00 09:00:00 PEEROLO alanis [facility] 2020-02-29 2020-02-29 Outpatient Christine HANCOCK [facility] [id number] Univers 13:45:00 13:45:00 PEEROLO alanis [facility] 2020-02-27 2020-02-27 Outpatient Christine HANCOCK [facility] [id number] Univers 09:42:49 12:45:00 PEEROLO alanis [facility] 2020-02-13 2020-02-13 Outpatient Christine HANCOCK [facility] [id number] Univers 14:06:46 23:59:00 [facility] 2019-12-29 2019-12-29 [facility] [id number] Common 09:49:00 09:49:00 [facility] 2019-12-27 2019-12-27 [facility] [id number] Common 09:02:00 09:02:00 [facility] 2019-12-23 2019-12-25 Outside nullFlavo MNA [id number] Memoria 20:41:52 04:59:59 Medical r Neurology 02 l Records Homedale Solomon 2019-12-23 2019-12-25 Outside nullFlavo MNA [id number] Memoria 20:41:52 04:59:59 Medical r Neurology 02 l Records Homedalefernando Carbajal 2019-12-23 2019-12-24 [id number] 15:41:52 23:59:59 02 2019-12-14 2019-12-14 [facility] [id number] Common 14:36:00 14:36:00 [facility] 2019-11-18 2019-11-21 Inpatient nullFlavo [facility] [id number] Memoria 11:22:00 18:46:00 r Solomon 00 l [facility] 2019-11-18 2019-11-21 Inpatient nullFlavo [facility] [id number] Memoria 11:22:00 18:46:00 r Solomon 00 l [facility] 2019-11-18 2019-11-21 Inpatient CHIKA, [address] 06:22:00 13:46:00 [place] 2019-11-18 2019-11-21 Outpatient Chika, [facility] [id number] 06:22:00 13:46:00 [facility] 00 2019-11-14 2019-11-15 Outpatient nullFlavo [facility] [id number] Memoria 18:00:00 04:59:59 r Cardiology 03 l [facility] [place] 2019-11-14 2019-11-15 Outpatient nullFlavo [facility] [id number] Memoria 18:00:00 04:59:59 r Cardiology 03 l [facility] [place] 2019-11-14 2019-11-15 Outpatient nullFlavo [facility] [id number] Memoria 16:00:00 04:59:59 r Cardiology 04 l [facility] [place] 2019-11-14 2019-11-15 Outpatient nullFlavo [facility] [id number] Memoria 16:00:00 04:59:59 r Cardiology 04 l [facility] [place] 2019-11-14 2019-11-14 Outpatient Maniar, MG MG [id number] 13:00:00 23:59:59 [facility] [facility] 03 2019-11-14 2019-11-14 Outpatient Maniar, MG [facility] [id number] 11:00:00 23:59:59 [facility] [facility] 04 2019-11-14 2019-11-14 Outpatient MHIE [facility] [id number] Memoria 13:00:00 13:00:00 03 elle Carbajal 2019-11-14 2019-11-14 Outpatient ROSA VANEGAS [id number] Memoria 11:00:00 11:00:00 04 elle Bronte 2019-11-08 2019-11-08 Out[facility] [id number] Common 09:58:00 09:58:[address] [facility] 2019-11-08 2019-11-08 [facility] [id number] Common 09:56:00 09:56:[address] [facility] 2019-10-24 2019-10-24 [facility] 29 [id number] Common 21:19:00 21:19:[address] [facility] 2019-10-24 2019-10-24 Outpatient [facility] 29 [id number] Common 21:06:00 21:06:[address] [facility] 2019-10-24 2019-10-24 Out[facility] 29 [id number] Common 09:30:00 09:30:[address] [facility] 2019-09-13 2019-09-13 Out[facility] [id number] Common 13:20:00 13:20:[address] [facility] 2019-08-26 2019-08-26 [facility] [id number] Common 08:45:00 08:45:[address] [facility] 2019-08-22 2019-08-22 [facility] [id number] Common 01:08:00 01:08:[address] [facility] 2019-08-17 2019-08-17 Out[facility] [id number] Common 09:51:00 09:51:[address] [facility] 2019-08-16 2019-08-16 Out[facility] [id number] Common 13:20:00 13:20:[address] [facility] 2019-07-21 2019-07-21 Out[facility] [id number] Common 14:47:00 14:47:[address] [facility] 2019-07-15 2019-07-15 [facility] [id number] Common 10:09:00 10:09:[address] [facility] 2019-07-15 2019-07-15 Out[facility] [id number] Common 08:40:00 08:40:[address] [facility] 2019-07-11 2019-07-11 Out[facility] [id number] Common 13:46:00 13:46:[address] [facility] 2019-06-28 2019-06-28 Out[facility] [id number] Common 02:54:00 02:54:[address] [facility] 2019-06-24 2019-06-24 Out[facility] 27 [id number] Common 09:00:00 09:00:[address] [facility] 2019-06-23 2019-06-23 Out[facility] [id number] Common 15:00:00 15:00:[address] [facility] 2019-05-30 2019-05-30 Out[facility] [id number] Common 15:13:00 15:13:[address] [facility] 2019-05-05 2019-05-05 Out[facility] [id number] Common 15:33:00 15:33:[address] [facility] 2019-04-28 2019-04-28 Out[facility] [id number] Common 09:02:00 09:02:[address] [facility] 2019-04-26 2019-04-26 Out[facility] [id number] Common 13:43:00 13:43:[address] [facility] 2019-04-25 2019-04-25 Out[facility] 27 [id number] Common 22:56:00 22:56:[address] [facility] 2019-04-24 2019-04-24 Out[facility] 27 [id number] Common 11:41:00 11:41:[address] [facility] 2019-04-15 2019-04-15 Outpatient [facility] 26 [id number] Common 09:07:00 09:07:[address] [facility] 2019-04-15 2019-04-15 Out[facility] 26 [id number] Common 08:00:00 08:00:[address] [facility] 2019-03-24 2019-03-24 Outpatient zzzAmy zzzLuisana [id number] Common 09:27:00 09:27:00 Natler Donte Sp yaron DO [facility] 2019-03-16 2019-03-16 Out[facility] [id number] Common 09:16:00 09:16:[address] [facility] 2019-02-22 2019-02-22 Out[facility] [id number] Common 09:03:00 09:03:[address] [facility] 2019-02-18 2019-02-18 Outpatient [facility] [id number] Common 18:38:00 18:38:[address] [facility] 2019-02-18 2019-02-18 Outpatient [facility] 26 [id number] Common 15:06:00 15:06:[address] [facility] 2019-02-16 2019-02-16 [facility] [id number] Common 16:06:00 16:06:00 t [facility] it Road [facility] 2019-02-15 2019-02-15 Outpatient Reynaldo [facility] [id number] Common 15:20:00 15:20:00 [facility] it Road [facility] 2018-04-28 2018-04-30 Phone nullFlavo MNA [id number] Memoria 14:28:00 04:59:59 Message r [facility] 2018-04-28 2018-04-30 Phone nullFlavo MNA [id number] Memoria 14:28:00 04:59:59 Message r Neurosurger 01 [facility] 2018-04-28 2018-04-29 Outpatient MHMISCHER MHMISCHER [id number] 09:28:00 23:59:59 2018-04-07 2018-04-09 Phone nullFlavo [facility] [id number] Memoria 19:39:00 04:59:59 Message r [facility] 00 elle Carbajal 2018-04-07 2018-04-09 Phone nullFlavo [facility] [id number] Memoria 19:39:00 04:59:59 Message r [facility] 00 elle Carbajal 2018-04-07 2018-04-08 Outpatient MHMISCHER MHMISCHER 002 [id number] 14:39:00 23:59:59 2018-02-02 2018-02-02 Outpatient MHIE MHIE [id number] Memoria 10:45:00 10:45:00 02 elle Carbajal 2018-02-02 2018-02-02 Outpatient MHIE MHIE [id number] Memoria 10:45:00 10:45:00 02 elle Carbajal 2017-11-30 2017-11-30 Outpatient MHIE MHIE [id number] Memoria 13:00:00 13:00:00 01 elle Carbajal 2017-11-30 2017-11-30 Outpatient MHIE MHIE [id number] Memoria 13:00:00 13:00:00 01 elle Carbajal 2017-11-12 2017-11-12 [facility] [id number] 11:30:00 11:30:00 00 l Solomon 2017-11-12 2017-11-[address] [facility] [id number] [facility] 11:30:00 11:30:00 00 l Solomon Results Test Description Test Time Test Comments Results Result Comments Source HEPATIC FUNCTION PANEL (57575) (ALB,T.PRO,BILI 2022-09-14 19 :32:01 T,BU/BC,ALT,AST,ALK PHOS) Test Item Value Reference Range Interpretation Comme nts TOTAL BILI (test code = 2638564299) 0.6 mg/dL 0.1-1.1 BILI UNCON (test code = 0247422752) 0.3 mg/dL 0.1-1.1 BILI CONJ (test code = 9914253152) 0.0 mg/dL 0.0-0.3 T PROTEIN (test code = 9812526169) 7.6 g/dL 6.3-8.2 ALBUMIN (test code = 5511602106) 4.4 g/dL 3.5-5.0 ALK PHOS (test code = 4318544071) 100 U/L 34-122 ALTv (test code = 1742-6) 20 U/L 5-35 AST(SGOT) (test code = 2854211544) 25 U/L 13-40 Lab Interpretation (test code = 20923-4) Normal [facility] (NA, K, CL, CO2, GLUCOSE, BUN, CREATININE, CA)2022-09-14 19:31:41 Test Item Value Reference Range Interpretation Comments NA (test code = 139 mmol/L 135-145 9650881775) K (test code = 4.4 mmol/L 3.5-5.0 2630516394) CL (test code = 108 mmol/L 98-108 4368393328) CO2 TOTAL (test code = 27 mmol/L 23-31 7171687430) AGAP (test code = 2-16 0452100873) BUN (test code = 14 mg/dL 7-23 1717940583) GLUCOSE (test code = 167 mg/dL 70-110 H 4252669579) CREATININE (test code = 0.51 mg/dL 0.50-1.04 3092647770) CALCIUM (test code = 9.5 mg/dL 8.6-10.6 8554261919) eGFR (test code = mL/min/1.73m2 7597264393) ARIANA (test code = ARIANA) Association of [...] tests). Lab Interpretation Abnormal (test code = 57396-5) [facility] 19:31:41 Test Item Value Reference Range Interpretation Comments LIPASE (test code = 7287848389) 307 U/L 0-220 H Lab Interpretation (test code = Abnormal 07883-2) [facility] WITH [id number] 19:04:02 Test Item Value Reference Range Interpretation Comments WBC (test code = See_Comment H [Automated 8790-2) message] The system which generated this result transmit roberto carlos reference range : 4.30 - 11.10 10*3/?L. The reference range was not used to interpret this result as normal/abnormal . RBC (test code = See_Comment [Automated 789-8) message] The system which generated this result transmit roberto carlos reference range : 3.93 - 5.25 10*6/?L. The reference range was not used to interpret this result as normal/abnormal . HGB (test code = 14.2 g/dL 11.6-15.0 718-7) HCT (test code = 42.8 % 35.7-45.2 4544-3) MCV (test code = 90.1 fL 80.6-95.5 787-2) MCH (test code = 29.9 pg 25.9-32.8 785-6) MCHC (test code = 33.2 g/dL 31.6-35.1 786-4) RDW-SD (test code = 44.5 fL 39.0-49.9 89644-6) RDW-CV (test code = 13.4 % 12.0-15.5 788-0) PLT (test code = See_Comment H [Automated 777-3) message] The system which generated this result transmit roberto carlos reference range : 166 - 358 10*3/ ?L. The reference range was not u sed to interpret th is result as normal/abnormal . MPV (test code = 9.5 fL 9.5-12.9 35839-8) NRBC/100 WBC (test See_Comment [Automat ed code = 1134909192) message] The system which generated this result transmit roberto carlos reference range : 0.0 - 10.0 /100 WBCs. The reference range was not used to interpret this result as normal/abnormal . NRBC x10^3 (test code See_Comment [Auto mated = 9875587280) message] The system which generated this result transmit roberto carlos reference range : 10*3/?L. The reference range was not used to interpret this result as normal/abnormal . GRAN MAT (NEUT) % 75.0 % (test code = 770-8) IMM GRAN % (test code 0.70 % = 0654451005) LYMPH % (test code = 16.8 % 736-9) MONO % (test code = 5.2 % 5905-5) EOS % (test code = 1.4 % 713-8) BASO % (test code = 0.9 % 706-2) GRAN MAT x10^3(ANC) 12.01 10*3/uL 1.88-7.09 H (test code = 8093265344) IMM GRAN x10^3 (test 0.11 10*3/uL 0.00-0.06 H code = 4691975613) LYMPH x10^3 (test code 2.68 10*3/uL 1.32-3.29 = 731-0) MONO x10^3 (test code 0.83 10*3/uL 0.33-0.92 = 742-7) EOS x10^3 (test code = 0.23 10*3/uL 0.03-0.39 711-2) BASO x10^3 (test code 0.14 10*3/uL 0.01-0.07 H = 704-7) Lab Interpretation Abnormal (test code = 33420-4) [facility] METABOLIC PANEL (NA, K, CL, CO2, GLUCOSE, BUN, CREATININE, CA)2022-06-29 18:33:12 Test Item Value Reference Range Interpretation Comments NA (test code = 137 mmol/L 135-145 6420637268) K (test code = 4.6 mmol/L 3.5-5 7558727245) CL (test code = 102 mmol/L 98-108 9300988550) CO2 TOTAL (test code = 29 mmol/L 23-31 6497067175) AGAP (test code = 2-16 9850184636) BUN (test code = 17 mg/dL 7-23 3258061668) GLUCOSE (test code = 180 mg/dL 70-110 H 4737235715) CREATININE (test code = 0.49 mg/dL 0.5-1.04 L 0231065322) CALCIUM (test code = 9.7 mg/dL 8.6-10.6 3622351385) eGFR (test code = mL/min/1.73m2 3791039055) ARIANA (test code = ARIANA) Association of [...] tests). Lab Interpretation Abnormal (test code = 83911-4) [facility]2022-10-23 18:33:12 Test Item Value Reference Range Interpretation Comments MAGNESIUM (test code = 1177860680) 1.8 mg/dL 1.7-2.4 Lab Interpretation (test code = Normal 73591-7) [facility] HospitalCREATINE [id number] 18:32:31 Test Item Value Reference Range Interpretation Comments CK (test code = 7412036701) 89 U/L 33-194 Lab Interpretation (test code = Normal 05416-7) [facility] HospitalL Inj/Asp: L greater trochanteric bursa [...] to verify the correct patient, procedure, equipment, systems support officer and site/side marked as required. Patient was prepped and draped in the usual sterile fashion.[facility]- XR HIP W/PEL UNI 2+V [id number] 10:05:00 [facility] : 1965 Sex: F Patient Name: ARI GODOY Unit No: [id number] EXAMS: CPT CODE: [id number] XR HIP W/PEL UNI 2+[place] 134[address] APpelvis with frog-leg view left hip LOCATION: T18 INDICATION: Pain Postsurgical changes L5-S1. Bony alignment is normal. No fracture, dislocation , osteolytic or osteoblastic lesions are identified. Soft tissues unremarkable. Probable chronic irregularity greater trochanter left hip. IMPRESSION: No acute findings. at 1005 Reported and signed by: Royce Morse MD CC: Francisco Andrea MD Technologist: Archana Marley, RT(R) TranscrptDate/Tm/Trnsp: 12/14/2020 (1005) Lorri Orig Print D/T: S: 12/14/2020 (1009) [facility] NAME: ARI GODOY [address] [facility] [address] PHYS: [place] [address] : 1965 AGE: 55 SEX: F LOC: [place] PHONE #: [phone] EXAMDATE: 12/14/2020 STATUS: REG CLI FAX #: [phone] RADIOLOGY NO: PAGE 1 Signed ReportXR Lumbar Spine Ap Lateral Flexion And Umfngvqjc4996-28-18 18:32:20EXAMINATION: Lateral neutral, flexion and extension views; AP view of the lumbar spine in the standing position. 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 FINDINGS: There is [...] IMPRESSION: Relatively stable postoperative and degenerative changes. [facility]-[id number] Interface, Radiology Results 11/13/2020 12:35 PM CST [...] right upper quadrant.IMPRESSION:Relatively stable postoperative and degenerative changes.[id number] 09:56:00 Test Item Value Reference Range Interpretation Comments Glucose Lvl (test code = Glucose Lvl) 215 70-99 [place] 368640-03-16 09:56:00 Test Item Value Reference Range Interpretation Comments BUN (test code = BUN) 15 7-22 [place] [address]-03-16 09:56:00 Test Item Value Reference Range Interpretation Comments Creatinine Lvl (test code = Creatinine 0.50 0.50-1.40 Lvl) [place] [address]-03-16 09:56:00 Test Item Value Reference Range Interpretation Comments Sodium Lvl (test code = Sodium Lvl) 137 135-145 [place] [address]-03-16 09:56:00 Test Item Value Reference Range Interpretation Comments Potassium Lvl (test code = Potassium 4.5 3.5-5.1 Lvl) [place] [address]-03-16 09:56:00 Test Item Value Reference Range Interpretation Comments Chloride Lvl (test code = Chloride Lvl) 102 95-109 [place] [address]-03-16 09:56:00 Test Item Value Reference Range Interpretation Comments CO2 (test code = CO2) 30 24-32 [place] [address]-03-16 09:56:00 Test Item Value Reference Range Interpretation Comments Calcium Lvl (test code = Calcium Lvl) 9.3 8.5-10.5 [place] 368640-03-16 09:56:00 Test Item Value Reference Range Interpretation Comments AGAP (test code = AGAP) 9.5 10.0-20.0 [place] [address]-03-16 09:56:00 Test Item Value Reference Range Interpretation Comments eGFR (test code = eGFR) 125 [place] [address]-03-16 09:56:00 Test Item Value Reference Range Interpretation Comments Segs (test code = Segs) 71.7 45.0-75.0 [place] [address]-03-16 09:56:00 Test Item Value Reference Range Interpretation Comments Lymphocytes (test code = Lymphocytes) 17.6 20.0-40.0 [place] [address]-03-16 09:56:00 Test Item Value Reference Range Interpretation Comments Monocytes (test code = Monocytes) 8.4 2.0-12.0 [place] [address]-03-16 09:56:00 Test Item Value Reference Range Interpretation Comments Eosinophils (test code = 1.7 See_Comment [A utomated message] The Eosinophils) system which ge nerated this result tra nsmitted reference range : <=4.0. The reference r sharon was not used to int erpret this result as normal/abnormal . [place] [address]-03-16 09:56:00 Test Item Value Reference Range Interpretation Comments Basophils (test code = 0.6 See_Comment [Aut omated message] The Basophils) system which ge nerated this result tra nsmitted reference range : <=1.0. The reference r sharon was not used to int erpret this result as normal/abnormal . [place] [address]-03-16 09:56:00 Test Item Value Reference Range Interpretation Comments Neutrophils # (test code = Neutrophils 8.2 1.5-8.1 #) [place] 940670-03-16 09:56:00 Test Item Value Reference Range Interpretation Comments Lymphocytes # (test code = Lymphocytes 2.0 1.0-5.5 #) [place] [address]-03-16 09:56:00 Test Item Value Reference Range Interpretation Comments Monocytes # (test code 1.0 See_Comment [Aut omated message] The = Monocytes #) system which generated this result tra nsmitted reference range : <=0.8. The reference r sharon was not used to int erpret this result as normal/abnormal . [place] [address]-03-16 09:56:00 Test Item Value Reference Range Interpretation Comments Eosinophils # (test code 0.2 See_Comment [A utomated message] The = Eosinophils #) system whic h generated this result tra nsmitted reference range : <=0.5. The reference r sharon was not used to int erpret this result as normal/abnormal . [place] [address]-03-16 09:56:00 Test Item Value Reference Range Interpretation Comments Basophils # (test code 0.1 See_Comment [Aut omated message] The = Basophils #) system which generated this result tra nsmitted reference range : <=0.2. The reference r sharon was not used to int erpret this result as normal/abnormal . [id number] 09:56:00 Test Item Value Reference Range Interpretation Comments WBC (test code = WBC) 11.5 3.7-10.4 [place] 940670-03-16 09:56:00 Test Item Value Reference Range Interpretation Comments RBC (test code = RBC) 4.12 4.20-5.40 [place] 940670-03-16 09:56:00 Test Item Value Reference Range Interpretation Comments Hgb (test code = Hgb) 13.0 12.0-16.0 [place] [address]-03-16 09:56:00 Test Item Value Reference Range Interpretation Comments Hct (test code = Hct) 38.1 36.0-48.0 [place] [address]-03-16 09:56:00 Test Item Value Reference Range Interpretation Comments MCV (test code = MCV) 92.5 80.0-98.0 [place] 940670-03-16 09:56:00 Test Item Value Reference Range Interpretation Comments MCH (test code = MCH) 31.6 pg 27.0-31.0 [facility]anoPmkvtteENRYQUFXMN2749-77-67 09:56:00 Test Item Value Reference Range Interpretation Comments MCHC (test code = MCHC) 34.2 32.0-36.0 [facility] [id number] 09:56:00 Test Item Value Reference Range Interpretation Comments RDW (test code = RDW) 13.3 11.5-14.5 [place] 940670-03-16 09:56:00 Test Item Value Reference Range Interpretation Comments Platelet (test code = Platelet) 260 133-450 [place] [address]-03-16 09:56:00 Test Item Value Reference Range Interpretation Comments MPV (test code = MPV) 8.0 7.4-10.4 [place] 368640-03-16 09:56:00 Test Item Value Reference Range Interpretation Comments Glucose Lvl (test code = Glucose Lvl) 215 70-99 [facility]2020-03-16 09:56:00 Test Item Value Reference Range Interpretation Comments BUN (test code = BUN) 15 7-22 [place] [address]-03-16 09:56:00 Test Item Value Reference Range Interpretation Comments Creatinine Lvl (test code = Creatinine 0.50 0.50-1.40 Lvl) [place] 368640-03-16 09:56:00 Test Item Value Reference Range Interpretation Comments Sodium Lvl (test code = Sodium Lvl) 137 135-145 [place] [address]-03-16 09:56:00 Test Item Value Reference Range Interpretation Comments Potassium Lvl (test code = Potassium 4.5 3.5-5.1 Lvl) [place] 368640-03-16 09:56:00 Test Item Value Reference Range Interpretation Comments Chloride Lvl (test code = Chloride Lvl) 102 95-109 [place] 368640-03-16 09:56:00 Test Item Value Reference Range Interpretation Comments CO2 (test code = CO2) 30 24-32 [place] [address]-03-16 09:56:00 Test Item Value Reference Range Interpretation Comments Calcium Lvl (test code = Calcium Lvl) 9.3 8.5-10.5 [place] 368640-03-16 09:56:00 Test Item Value Reference Range Interpretation Comments AGAP (test code = AGAP) 9.5 10.0-20.0 [place] [address]-03-16 09:56:00 Test Item Value Reference Range Interpretation Comments eGFR (test code = eGFR) 125 [place] [address]-03-16 09:56:00 Test Item Value Reference Range Interpretation Comments Segs (test code = Segs) 71.7 45.0-75.0 [place] [address]-03-16 09:56:00 Test Item Value Reference Range Interpretation Comments Lymphocytes (test code = Lymphocytes) 17.6 20.0-40.0 [place] [address]-03-16 09:56:00 Test Item Value Reference Range Interpretation Comments Monocytes (test code = Monocytes) 8.4 2.0-12.0 [place] [address]-03-16 09:56:00 Test Item Value Reference Range Interpretation Comments Eosinophils (test code = 1.7 See_Comment [A utomated message] The Eosinophils) system which ge nerated this result tra nsmitted reference range : <=4.0. The reference r sharon was not used to int erpret this result as normal/abnormal . [facility]anoUygwxtzZFZISJGSKM0912-93-32 09:56:00 Test Item Value Reference Range Interpretation Comments Basophils (test code = 0.6 See_Comment [Aut omated message] The Basophils) system which ge nerated this result tra nsmitted reference range : <=1.0. The reference r sharon was not used to int erpret this result as normal/abnormal . [facility] PlanoHfaumhkRIVZMERQUG4796-89-93 09:56:00 Test Item Value Reference Range Interpretation Comments Neutrophils # (test code = Neutrophils 8.2 1.5-8.1 #) [facility] PlanoWkwwrboHSXJWPSCQB1680-96-93 09:56:00 Test Item Value Reference Range Interpretation Comments Lymphocytes # (test code = Lymphocytes 2.0 1.0-5.5 #) [facility] PlanoHgfxdtkLULLVBSAKV5709-46-11 09:56:00 Test Item Value Reference Range Interpretation Comments Monocytes # (test code 1.0 See_Comment [Aut omated message] The = Monocytes #) system which generated this result tra nsmitted reference range : <=0.8. The reference r sharon was not used to int erpret this result as normal/abnormal . [facility] PlanoDrgyohfLXWBCUYVMJ5890-62-23 09:56:00 Test Item Value Reference Range Interpretation Comments Eosinophils # (test code 0.2 See_Comment [A utomated message] The = Eosinophils #) system whic h generated this result tra nsmitted reference range : <=0.5. The reference r sharon was not used to int erpret this result as normal/abnormal . [facility] PlanoUmajasdRHVJRFXHGM6890-55-90 09:56:00 Test Item Value Reference Range Interpretation Comments Basophils # (test code 0.1 See_Comment [Aut omated message] The = Basophils #) system which generated this result tra nsmitted reference range : <=0.2. The reference r sharon was not used to int erpret this result as normal/abnormal . [facility] PlanoEjjzfohKTSKFRYZVJ6989-32-42 09:56:00 Test Item Value Reference Range Interpretation Comments WBC (test code = WBC) 11.5 3.7-10.4 [facility] PlanoWlcveorBKWUTISSLS7962-77-95 09:56:00 Test Item Value Reference Range Interpretation Comments RBC (test code = RBC) 4.12 4.20-5.40 [place] [address]-03-16 09:56:00 Test Item Value Reference Range Interpretation Comments Hgb (test code = Hgb) 13.0 12.0-16.0 [place] [address]-03-16 09:56:00 Test Item Value Reference Range Interpretation Comments Hct (test code = Hct) 38.1 36.0-48.0 [place] [address]-03-16 09:56:00 Test Item Value Reference Range Interpretation Comments MCV (test code = MCV) 92.5 80.0-98.0 [place] [address]-03-16 09:56:00 Test Item Value Reference Range Interpretation Comments MCH (test code = MCH) 31.6 pg 27.0-31.0 [place] [address]-03-16 09:56:00 Test Item Value Reference Range Interpretation Comments MCHC (test code = MCHC) 34.2 32.0-36.0 [place] [address]-03-16 09:56:00 Test Item Value Reference Range Interpretation Comments RDW (test code = RDW) 13.3 11.5-14.5 [place] [address]-03-16 09:56:00 Test Item Value Reference Range Interpretation Comments Platelet (test code = Platelet) 260 133-450 [place] [address]-03-16 09:56:00 Test Item Value Reference Range Interpretation Comments MPV (test code = MPV) 8.0 7.4-10.4 [place] 368640-03-16 09:56:00 Test Item Value Reference Range Interpretation Comments Glucose Lvl (test code = Glucose Lvl) 215 70-99 [place] 368640-03-16 09:56:00 Test Item Value Reference Range Interpretation Comments BUN (test code = BUN) 15 7-22 [place] [address]-03-16 09:56:00 Test Item Value Reference Range Interpretation Comments Creatinine Lvl (test code = Creatinine 0.50 0.50-1.40 Lvl) [place] 368640-03-16 09:56:00 Test Item Value Reference Range Interpretation Comments Sodium Lvl (test code = Sodium Lvl) 137 135-145 [place] 368640-03-16 09:56:00 Test Item Value Reference Range Interpretation Comments Potassium Lvl (test code = Potassium 4.5 3.5-5.1 Lvl) [place] 368640-03-16 09:56:00 Test Item Value Reference Range Interpretation Comments Chloride Lvl (test code = Chloride Lvl) 102 95-109 [place] [address]-03-16 09:56:00 Test Item Value Reference Range Interpretation Comments CO2 (test code = CO2) 30 24-32 [place] [address]-03-16 09:56:00 Test Item Value Reference Range Interpretation Comments Calcium Lvl (test code = Calcium Lvl) 9.3 8.5-10.5 [place] [address]-03-16 09:56:00 Test Item Value Reference Range Interpretation Comments AGAP (test code = AGAP) 9.5 10.0-20.0 [place] [address]-03-16 09:56:00 Test Item Value Reference Range Interpretation Comments eGFR (test code = eGFR) 125 [place] 940670-03-16 09:56:00 Test Item Value Reference Range Interpretation Comments Segs (test code = Segs) 71.7 45.0-75.0 [place] [address]-03-16 09:56:00 Test Item Value Reference Range Interpretation Comments Lymphocytes (test code = Lymphocytes) 17.6 20.0-40.0 [place] [address]-03-16 09:56:00 Test Item Value Reference Range Interpretation Comments Monocytes (test code = Monocytes) 8.4 2.0-12.0 [place] [address]-03-16 09:56:00 Test Item Value Reference Range Interpretation Comments Eosinophils (test code = 1.7 See_Comment [A utomated message] The Eosinophils) system which ge nerated this result tra nsmitted reference range : <=4.0. The reference r sharon was not used to int erpret this result as normal/abnormal . [place] [address]-03-16 09:56:00 Test Item Value Reference Range Interpretation Comments Basophils (test code = 0.6 See_Comment [Aut omated message] The Basophils) system which ge nerated this result tra nsmitted reference range : <=1.0. The reference r sharon was not used to int erpret this result as normal/abnormal . [address]03-16 09:56:00 Test Item Value Reference Range Interpretation Comments Neutrophils # (test code = Neutrophils 8.2 1.5-8.1 #) [id number] 09:56:00 Test Item Value Reference Range Interpretation Comments Lymphocytes # (test code = Lymphocytes 2.0 1.0-5.5 #) [facility]anoIawyhnyUNRFDVYRPB0596-97-08 09:56:00 Test Item Value Reference Range Interpretation Comments Monocytes # (test code 1.0 See_Comment [Aut omated message] The = Monocytes #) system which generated this result tra nsmitted reference range : <=0.8. The reference r sharon was not used to int erpret this result as normal/abnormal . [place] 940670-03-16 09:56:00 Test Item Value Reference Range Interpretation Comments Eosinophils # (test code 0.2 See_Comment [A utomated message] The = Eosinophils #) system whic h generated this result tra nsmitted reference range : <=0.5. The reference r sharon was not used to int erpret this result as normal/abnormal . [id number] 09:56:00 Test Item Value Reference Range Interpretation Comments Basophils # (test code 0.1 See_Comment [Aut omated message] The = Basophils #) system which generated this result tra nsmitted reference range : <=0.2. The reference r sharon was not used to int erpret this result as normal/abnormal . [id number] 09:56:00 Test Item Value Reference Range Interpretation Comments WBC (test code = WBC) 11.5 3.7-10.4 [place] 940670-03-16 09:56:00 Test Item Value Reference Range Interpretation Comments RBC (test code = RBC) 4.12 4.20-5.40 [place] 940670-03-16 09:56:00 Test Item Value Reference Range Interpretation Comments Hgb (test code = Hgb) 13.0 12.0-16.0 [place] [address]-03-16 09:56:00 Test Item Value Reference Range Interpretation Comments Hct (test code = Hct) 38.1 36.0-48.0 [place] 940670-03-16 09:56:00 Test Item Value Reference Range Interpretation Comments MCV (test code = MCV) 92.5 80.0-98.0 [place] [address]-03-16 09:56:00 Test Item Value Reference Range Interpretation Comments MCH (test code = MCH) 31.6 pg 27.0-31.0 [place] [address]-03-16 09:56:00 Test Item Value Reference Range Interpretation Comments MCHC (test code = MCHC) 34.2 32.0-36.0 [place] [address]-03-16 09:56:00 Test Item Value Reference Range Interpretation Comments RDW (test code = RDW) 13.3 11.5-14.5 [place] [address]-03-16 09:56:00 Test Item Value Reference Range Interpretation Comments Platelet (test code = Platelet) 260 133-450 [place] [address]-03-16 09:56:00 Test Item Value Reference Range Interpretation Comments MPV (test code = MPV) 8.0 7.4-10.4 [place] 368640-03-16 09:56:00 Test Item Value Reference Range Interpretation Comments Glucose Lvl (test code = Glucose Lvl) 215 70-99 [place] [address]-03-16 09:56:00 Test Item Value Reference Range Interpretation Comments BUN (test code = BUN) 15 7-22 [place] [address]-03-16 09:56:00 Test Item Value Reference Range Interpretation Comments Creatinine Lvl (test code = Creatinine 0.50 0.50-1.40 Lvl) [place] 368640-03-16 09:56:00 Test Item Value Reference Range Interpretation Comments Sodium Lvl (test code = Sodium Lvl) 137 135-145 [place] [address]-03-16 09:56:00 Test Item Value Reference Range Interpretation Comments Potassium Lvl (test code = Potassium 4.5 3.5-5.1 Lvl) [place] [address]-03-16 09:56:00 Test Item Value Reference Range Interpretation Comments Chloride Lvl (test code = Chloride Lvl) 102 95-109 [place] [address]-03-16 09:56:00 Test Item Value Reference Range Interpretation Comments CO2 (test code = CO2) 30 24-32 [place] [address]-03-16 09:56:00 Test Item Value Reference Range Interpretation Comments Calcium Lvl (test code = Calcium Lvl) 9.3 8.5-10.5 [place] 368640-03-16 09:56:00 Test Item Value Reference Range Interpretation Comments AGAP (test code = AGAP) 9.5 10.0-20.0 [place] [address]-03-16 09:56:00 Test Item Value Reference Range Interpretation Comments eGFR (test code = eGFR) 125 [place] [address]-03-16 09:56:00 Test Item Value Reference Range Interpretation Comments Segs (test code = Segs) 71.7 45.0-75.0 [place] [address]-03-16 09:56:00 Test Item Value Reference Range Interpretation Comments Lymphocytes (test code = Lymphocytes) 17.6 20.0-40.0 [place] [address]-03-16 09:56:00 Test Item Value Reference Range Interpretation Comments Monocytes (test code = Monocytes) 8.4 2.0-12.0 [place] [address]-03-16 09:56:00 Test Item Value Reference Range Interpretation Comments Eosinophils (test code = 1.7 See_Comment [A utomated message] The Eosinophils) system which ge nerated this result tra nsmitted reference range : <=4.0. The reference r sharon was not used to int erpret this result as normal/abnormal . [place] 940670-03-16 09:56:00 Test Item Value Reference Range Interpretation Comments Basophils (test code = 0.6 See_Comment [Aut omated message] The Basophils) system which ge nerated this result tra nsmitted reference range : <=1.0. The reference r sharon was not used to int erpret this result as normal/abnormal . [place] [address]-03-16 09:56:00 Test Item Value Reference Range Interpretation Comments Neutrophils # (test code = Neutrophils 8.2 1.5-8.1 #) [place] [address]-03-16 09:56:00 Test Item Value Reference Range Interpretation Comments Lymphocytes # (test code = Lymphocytes 2.0 1.0-5.5 #) [place] [address]-03-16 09:56:00 Test Item Value Reference Range Interpretation Comments Monocytes # (test code 1.0 See_Comment [Aut omated message] The = Monocytes #) system which generated this result tra nsmitted reference range : <=0.8. The reference r sharon was not used to int erpret this result as normal/abnormal . [id number] 09:56:00 Test Item Value Reference Range Interpretation Comments Eosinophils # (test code 0.2 See_Comment [A utomated message] The = Eosinophils #) system whic h generated this result tra nsmitted reference range : <=0.5. The reference r sharon was not used to int erpret this result as normal/abnormal . [id number] 09:56:00 Test Item Value Reference Range Interpretation Comments Basophils # (test code 0.1 See_Comment [Aut omated message] The = Basophils #) system which generated this result tra nsmitted reference range : <=0.2. The reference r sharon was not used to int erpret this result as normal/abnormal . [facility] [id number] 09:56:00 Test Item Value Reference Range Interpretation Comments WBC (test code = WBC) 11.5 3.7-10.4 [place] [address]-03-16 09:56:00 Test Item Value Reference Range Interpretation Comments RBC (test code = RBC) 4.12 4.20-5.40 [place] 940670-03-16 09:56:00 Test Item Value Reference Range Interpretation Comments Hgb (test code = Hgb) 13.0 12.0-16.0 [place] [address]-03-16 09:56:00 Test Item Value Reference Range Interpretation Comments Hct (test code = Hct) 38.1 36.0-48.0 [place] [address]-03-16 09:56:00 Test Item Value Reference Range Interpretation Comments MCV (test code = MCV) 92.5 80.0-98.0 [place] 940670-03-16 09:56:00 Test Item Value Reference Range Interpretation Comments MCH (test code = MCH) 31.6 pg 27.0-31.0 [place] [address]-03-16 09:56:00 Test Item Value Reference Range Interpretation Comments MCHC (test code = MCHC) 34.2 32.0-36.0 [place] 940670-03-16 09:56:00 Test Item Value Reference Range Interpretation Comments RDW (test code = RDW) 13.3 11.5-14.5 [id number] 09:56:00 Test Item Value Reference Range Interpretation Comments Platelet (test code = Platelet) 260 133-450 [place] 940670-03-16 09:56:00 Test Item Value Reference Range Interpretation Comments MPV (test code = MPV) 8.0 7.4-10.4 [place] 368640-03-15 07:18:00 Test Item Value Reference Range Interpretation Comments Glucose Lvl (test code = Glucose Lvl) 205 70-99 [place] 368640-03-15 07:18:00 Test Item Value Reference Range Interpretation Comments BUN (test code = BUN) 18 7-22 [place] [address]-03-15 07:18:00 Test Item Value Reference Range Interpretation Comments Creatinine Lvl (test code = Creatinine 0.60 0.50-1.40 Lvl) [place] 368640-03-15 07:18:00 Test Item Value Reference Range Interpretation Comments Sodium Lvl (test code = Sodium Lvl) 137 135-145 [place] 368640-03-15 07:18:00 Test Item Value Reference Range Interpretation Comments Potassium Lvl (test code = Potassium 4.2 3.5-5.1 Lvl) [place] 368640-03-15 07:18:00 Test Item Value Reference Range Interpretation Comments Chloride Lvl (test code = Chloride Lvl) 102 95-109 [place] 368640-03-15 07:18:00 Test Item Value Reference Range Interpretation Comments CO2 (test code = CO2) 28 24-32 [place] 368640-03-15 07:18:00 Test Item Value Reference Range Interpretation Comments Calcium Lvl (test code = Calcium Lvl) 8.8 8.5-10.5 [place] 368640-03-15 07:18:00 Test Item Value Reference Range Interpretation Comments AGAP (test code = AGAP) 11.2 10.0-20.0 [place] 368640-03-15 07:18:00 Test Item Value Reference Range Interpretation Comments eGFR (test code = eGFR) 118 [facility]2020-03-15 07:18:00 Test Item Value Reference Range Interpretation Comments Magnesium Lvl (test code = Magnesium 1.8 1.8-2.4 Lvl) [facility]2020-03-15 07:18:00 Test Item Value Reference Range Interpretation Comments Phosphorus (test code = Phosphorus) 3.2 2.5-4.5 [place] [address]-03-15 07:18:00 Test Item Value Reference Range Interpretation Comments WBC (test code = WBC) 13.5 3.7-10.4 [place] [address]-03-15 07:18:00 Test Item Value Reference Range Interpretation Comments RBC (test code = RBC) 3.98 4.20-5.40 [place] [address]-03-15 07:18:00 Test Item Value Reference Range Interpretation Comments Hgb (test code = Hgb) 12.2 12.0-16.0 [place] [address]-03-15 07:18:00 Test Item Value Reference Range Interpretation Comments Hct (test code = Hct) 37.0 36.0-48.0 [place] [address]-03-15 07:18:00 Test Item Value Reference Range Interpretation Comments MCV (test code = MCV) 93.0 80.0-98.0 [place] [address]-03-15 07:18:00 Test Item Value Reference Range Interpretation Comments MCH (test code = MCH) 30.7 pg 27.0-31.0 [place] [address]-03-15 07:18:00 Test Item Value Reference Range Interpretation Comments MCHC (test code = MCHC) 33.0 32.0-36.0 [place] [address]-03-15 07:18:00 Test Item Value Reference Range Interpretation Comments RDW (test code = RDW) 13.2 11.5-14.5 [place] 940670-03-15 07:18:00 Test Item Value Reference Range Interpretation Comments Platelet (test code = Platelet) 256 133-450 [facility] [id number] 07:18:00 Test Item Value Reference Range Interpretation Comments MPV (test code = MPV) 8.1 7.4-10.4 [place] 940670-03-15 07:18:00 Test Item Value Reference Range Interpretation Comments RBC Morph (test code = Normal (11/20/19 2:18 RBC Morph) AM) [place] 940670-03-15 07:18:00 Test Item Value Reference Range Interpretation Comments Plt Morph (test code = Normal (11/20/19 2:18 Plt Morph) AM) [place] [address]-03-15 07:18:00 Test Item Value Reference Range Interpretation Comments Segs (test code = Segs) 83.0 45.0-75.0 [place] [address]-03-15 07:18:00 Test Item Value Reference Range Interpretation Comments Lymphocytes (test code = Lymphocytes) 11.2 20.0-40.0 [place] [address]-03-15 07:18:00 Test Item Value Reference Range Interpretation Comments Monocytes (test code = Monocytes) 4.4 2.0-12.0 [place] [address]-03-15 07:18:00 Test Item Value Reference Range Interpretation Comments Eosinophils (test code = 1.1 See_Comment [A utomated message] The Eosinophils) system which ge nerated this result tra nsmitted reference range : <=4.0. The reference r sharon was not used to int erpret this result as normal/abnormal . [place] [address]-03-15 07:18:00 Test Item Value Reference Range Interpretation Comments Basophils (test code = 0.3 See_Comment [Aut omated message] The Basophils) system which ge nerated this result tra nsmitted reference range : <=1.0. The reference r sharon was not used to int erpret this result as normal/abnormal . [id number] 07:18:00 Test Item Value Reference Range Interpretation Comments Neutrophils # (test code = Neutrophils 11.2 1.5-8.1 #) [place] [address]-03-15 07:18:00 Test Item Value Reference Range Interpretation Comments Lymphocytes # (test code = Lymphocytes 1.5 1.0-5.5 #) [place] [address]-03-15 07:18:00 Test Item Value Reference Range Interpretation Comments Monocytes # (test code 0.6 See_Comment [Aut omated message] The = Monocytes #) system which generated this result tra nsmitted reference range : <=0.8. The reference r sharon was not used to int erpret this result as normal/abnormal . [facility]KurlqiwXCODCFLWGX2851-43-13 07:18:00 Test Item Value Reference Range Interpretation Comments Eosinophils # (test code 0.1 See_Comment [A utomated message] The = Eosinophils #) system whic h generated this result tra nsmitted reference range : <=0.5. The reference r sharon was not used to int erpret this result as normal/abnormal . [facility] HospitalImhwdagHHDWVTHDCX1328-76-15 07:18:00 Test Item Value Reference Range Interpretation Comments Basophils # (test code 0.0 See_Comment [Aut omated message] The = Basophils #) system which generated this result tra nsmitted reference range : <=0.2. The reference r sharon was not used to int erpret this result as normal/abnormal . [facility] HospitalCrowd Analyzer [id number] 07:18:00 Test Item Value Reference Range Interpretation Comments Ca Ion WB (test code = Ca Ion WB) 1.07 1.05-1.25 [facility] HospitalLieferheldROID [id number] 07:18:00 Test Item Value Reference Range Interpretation Comments Ca Norm WB (test code = Ca Norm WB) 1.09 1.05-1.25 [facility] [employer] [id number] 07:18:00 Test Item Value Reference Range Interpretation Comments Glucose Lvl (test code = Glucose Lvl) 205 70-99 [facility] [employer] [id number] 07:18:00 Test Item Value Reference Range Interpretation Comments BUN (test code = BUN) 18 7-22 [facility] [employer] [id number] 07:18:00 Test Item Value Reference Range Interpretation Comments Creatinine Lvl (test code = Creatinine 0.60 0.50-1.40 Lvl) [facility] [employer] [id number] 07:18:00 Test Item Value Reference Range Interpretation Comments Sodium Lvl (test code = Sodium Lvl) 137 135-145 [facility] [employer] [id number] 07:18:00 Test Item Value Reference Range Interpretation Comments Potassium Lvl (test code = Potassium 4.2 3.5-5.1 Lvl) [place] 368640-03-15 07:18:00 Test Item Value Reference Range Interpretation Comments Chloride Lvl (test code = Chloride Lvl) 102 95-109 [place] [address]-03-15 07:18:00 Test Item Value Reference Range Interpretation Comments CO2 (test code = CO2) 28 24-32 [place] [address]-03-15 07:18:00 Test Item Value Reference Range Interpretation Comments Calcium Lvl (test code = Calcium Lvl) 8.8 8.5-10.5 [place] [address]-03-15 07:18:00 Test Item Value Reference Range Interpretation Comments AGAP (test code = AGAP) 11.2 10.0-20.0 [place] [address]-03-15 07:18:00 Test Item Value Reference Range Interpretation Comments eGFR (test code = eGFR) 118 [place] [address]-03-15 07:18:00 Test Item Value Reference Range Interpretation Comments Magnesium Lvl (test code = Magnesium 1.8 1.8-2.4 Lvl) [place] 368640-03-15 07:18:00 Test Item Value Reference Range Interpretation Comments Phosphorus (test code = Phosphorus) 3.2 2.5-4.5 [place] [address]-03-15 07:18:00 Test Item Value Reference Range Interpretation Comments WBC (test code = WBC) 13.5 3.7-10.4 [place] [address]-03-15 07:18:00 Test Item Value Reference Range Interpretation Comments RBC (test code = RBC) 3.98 4.20-5.40 [place] [address]-03-15 07:18:00 Test Item Value Reference Range Interpretation Comments Hgb (test code = Hgb) 12.2 12.0-16.0 [place] [address]-03-15 07:18:00 Test Item Value Reference Range Interpretation Comments Hct (test code = Hct) 37.0 36.0-48.0 [place] [address]-03-15 07:18:00 Test Item Value Reference Range Interpretation Comments MCV (test code = MCV) 93.0 80.0-98.0 [place] [address]-03-15 07:18:00 Test Item Value Reference Range Interpretation Comments MCH (test code = MCH) 30.7 pg 27.0-31.0 [id number] 07:18:00 Test Item Value Reference Range Interpretation Comments MCHC (test code = MCHC) 33.0 32.0-36.0 [facility] [id number] 07:18:00 Test Item Value Reference Range Interpretation Comments RDW (test code = RDW) 13.2 11.5-14.5 [place] 940670-03-15 07:18:00 Test Item Value Reference Range Interpretation Comments Platelet (test code = Platelet) 256 133-450 [place] 940670-03-15 07:18:00 Test Item Value Reference Range Interpretation Comments MPV (test code = MPV) 8.1 7.4-10.4 [place] [address]-03-15 07:18:00 Test Item Value Reference Range Interpretation Comments RBC Morph (test code = Normal (11/20/19 2:18 RBC Morph) AM) [facility] PlanoOncnelrBZBFBEBNFT7695-79-05 07:18:00 Test Item Value Reference Range Interpretation Comments Plt Morph (test code = Normal (11/20/19 2:18 Plt Morph) AM) [facility] PlanoTmzikaxZIYAQDZPBH8491-62-87 07:18:00 Test Item Value Reference Range Interpretation Comments Segs (test code = Segs) 83.0 45.0-75.0 [place] [address]-03-15 07:18:00 Test Item Value Reference Range Interpretation Comments Lymphocytes (test code = Lymphocytes) 11.2 20.0-40.0 [place] [address]-03-15 07:18:00 Test Item Value Reference Range Interpretation Comments Monocytes (test code = Monocytes) 4.4 2.0-12.0 [place] [address]-03-15 07:18:00 Test Item Value Reference Range Interpretation Comments Eosinophils (test code = 1.1 See_Comment [A utomated message] The Eosinophils) system which ge nerated this result tra nsmitted reference range : <=4.0. The reference r sharon was not used to int erpret this result as normal/abnormal . [place] 940670-03-15 07:18:00 Test Item Value Reference Range Interpretation Comments Basophils (test code = 0.3 See_Comment [Aut omated message] The Basophils) system which ge nerated this result tra nsmitted reference range : <=1.0. The reference r sharon was not used to int erpret this result as normal/abnormal . [facility] [id number] 07:18:00 Test Item Value Reference Range Interpretation Comments Neutrophils # (test code = Neutrophils 11.2 1.5-8.1 #) [facility] [id number] 07:18:00 Test Item Value Reference Range Interpretation Comments Lymphocytes # (test code = Lymphocytes 1.5 1.0-5.5 #) [facility] [id number] 07:18:00 Test Item Value Reference Range Interpretation Comments Monocytes # (test code 0.6 See_Comment [Aut omated message] The = Monocytes #) system which generated this result tra nsmitted reference range : <=0.8. The reference r sharon was not used to int erpret this result as normal/abnormal . [facility] [id number] 07:18:00 Test Item Value Reference Range Interpretation Comments Eosinophils # (test code 0.1 See_Comment [A utomated message] The = Eosinophils #) system whic h generated this result tra nsmitted reference range : <=0.5. The reference r sharon was not used to int erpret this result as normal/abnormal . [facility] [id number] 07:18:00 Test Item Value Reference Range Interpretation Comments Basophils # (test code 0.0 See_Comment [Aut omated message] The = Basophils #) system which generated this result tra nsmitted reference range : <=0.2. The reference r sharon was not used to int erpret this result as normal/abnormal . [facility] [id number] 07:18:00 Test Item Value Reference Range Interpretation Comments Ca Ion WB (test code = Ca Ion WB) 1.07 1.05-1.25 [facility]fieldRO[facility] [id number] 07:18:00 Test Item Value Reference Range Interpretation Comments Ca Norm WB (test code = Ca Norm WB) 1.09 1.05-1.25 [facility] [id number] 07:18:00 Test Item Value Reference Range Interpretation Comments Glucose Lvl (test code = Glucose Lvl) 205 70-99 [place] 368640-03-15 07:18:00 Test Item Value Reference Range Interpretation Comments BUN (test code = BUN) 18 7-22 [place] [address]-03-15 07:18:00 Test Item Value Reference Range Interpretation Comments Creatinine Lvl (test code = Creatinine 0.60 0.50-1.40 Lvl) [place] 368640-03-15 07:18:00 Test Item Value Reference Range Interpretation Comments Sodium Lvl (test code = Sodium Lvl) 137 135-145 [place] [address]-03-15 07:18:00 Test Item Value Reference Range Interpretation Comments Potassium Lvl (test code = Potassium 4.2 3.5-5.1 Lvl) [place] [address]-03-15 07:18:00 Test Item Value Reference Range Interpretation Comments Chloride Lvl (test code = Chloride Lvl) 102 95-109 [place] [address]-03-15 07:18:00 Test Item Value Reference Range Interpretation Comments CO2 (test code = CO2) 28 24-32 [place] [address]-03-15 07:18:00 Test Item Value Reference Range Interpretation Comments Calcium Lvl (test code = Calcium Lvl) 8.8 8.5-10.5 [place] 368640-03-15 07:18:00 Test Item Value Reference Range Interpretation Comments AGAP (test code = AGAP) 11.2 10.0-20.0 [place] 368640-03-15 07:18:00 Test Item Value Reference Range Interpretation Comments eGFR (test code = eGFR) 118 [place] [address]-03-15 07:18:00 Test Item Value Reference Range Interpretation Comments Magnesium Lvl (test code = Magnesium 1.8 1.8-2.4 Lvl) [place] 368640-03-15 07:18:00 Test Item Value Reference Range Interpretation Comments Phosphorus (test code = Phosphorus) 3.2 2.5-4.5 [place] [address]-03-15 07:18:00 Test Item Value Reference Range Interpretation Comments WBC (test code = WBC) 13.5 3.7-10.4 [place] [address]-03-15 07:18:00 Test Item Value Reference Range Interpretation Comments RBC (test code = RBC) 3.98 4.20-5.40 [place] [address]-03-15 07:18:00 Test Item Value Reference Range Interpretation Comments Hgb (test code = Hgb) 12.2 12.0-16.0 [place] [address]-03-15 07:18:00 Test Item Value Reference Range Interpretation Comments Hct (test code = Hct) 37.0 36.0-48.0 [facility]anoWdwodbrTJJAEAHVRX7069-86-57 07:18:00 Test Item Value Reference Range Interpretation Comments MCV (test code = MCV) 93.0 80.0-98.0 [place] [address]-03-15 07:18:00 Test Item Value Reference Range Interpretation Comments MCH (test code = MCH) 30.7 pg 27.0-31.0 [place] [address]-03-15 07:18:00 Test Item Value Reference Range Interpretation Comments MCHC (test code = MCHC) 33.0 32.0-36.0 [facility]anoSrgvxfmJENJXHNWHA8069-81-24 07:18:00 Test Item Value Reference Range Interpretation Comments RDW (test code = RDW) 13.2 11.5-14.5 [facility]anoSqbgxohYYZUQWRBYO1522-00-47 07:18:00 Test Item Value Reference Range Interpretation Comments Platelet (test code = Platelet) 256 133-450 [facility] PlanoPbzsftfPPRMOEZRBM0367-14-56 07:18:00 Test Item Value Reference Range Interpretation Comments MPV (test code = MPV) 8.1 7.4-10.4 [place] [address]-03-15 07:18:00 Test Item Value Reference Range Interpretation Comments RBC Morph (test code = Normal (11/20/19 2:18 RBC Morph) AM) [facility] PlanoOnjesdvSCOITSGTZT7810-86-38 07:18:00 Test Item Value Reference Range Interpretation Comments Plt Morph (test code = Normal (11/20/19 2:18 Plt Morph) AM) [facility] PlanoDtlvansKYYTREHGQD2322-90-17 07:18:00 Test Item Value Reference Range Interpretation Comments Segs (test code = Segs) 83.0 45.0-75.0 [place] [address]-03-15 07:18:00 Test Item Value Reference Range Interpretation Comments Lymphocytes (test code = Lymphocytes) 11.2 20.0-40.0 [place] [address]-03-15 07:18:00 Test Item Value Reference Range Interpretation Comments Monocytes (test code = Monocytes) 4.4 2.0-12.0 [place] [address]-03-15 07:18:00 Test Item Value Reference Range Interpretation Comments Eosinophils (test code = 1.1 See_Comment [A utomated message] The Eosinophils) system which ge nerated this result tra nsmitted reference range : <=4.0. The reference r sharon was not used to int erpret this result as normal/abnormal . [address]03-15 07:18:00 Test Item Value Reference Range Interpretation Comments Basophils (test code = 0.3 See_Comment [Aut omated message] The Basophils) system which ge nerated this result tra nsmitted reference range : <=1.0. The reference r sharon was not used to int erpret this result as normal/abnormal . [place] [address]-03-15 07:18:00 Test Item Value Reference Range Interpretation Comments Neutrophils # (test code = Neutrophils 11.2 1.5-8.1 #) [place] [address]-03-15 07:18:00 Test Item Value Reference Range Interpretation Comments Lymphocytes # (test code = Lymphocytes 1.5 1.0-5.5 #) [address]03-15 07:18:00 Test Item Value Reference Range Interpretation Comments Monocytes # (test code 0.6 See_Comment [Aut omated message] The = Monocytes #) system which generated this result tra nsmitted reference range : <=0.8. The reference r sharon was not used to int erpret this result as normal/abnormal . [place] [address]-03-15 07:18:00 Test Item Value Reference Range Interpretation Comments Eosinophils # (test code 0.1 See_Comment [A utomated message] The = Eosinophils #) system whic h generated this result tra nsmitted reference range : <=0.5. The reference r sharon was not used to int erpret this result as normal/abnormal . [place] [address]-03-15 07:18:00 Test Item Value Reference Range Interpretation Comments Basophils # (test code 0.0 See_Comment [Aut omated message] The = Basophils #) system which generated this result tra nsmitted reference range : <=0.2. The reference r sharon was not used to int erpret this result as normal/abnormal . [facility] [id number] 07:18:00 Test Item Value Reference Range Interpretation Comments Ca Ion WB (test code = Ca Ion WB) 1.07 1.05-1.25 [facility] HospitalAfrica InteractiveBENSON HOSPITALATHYROID [id number] 07:18:00 Test Item Value Reference Range Interpretation Comments Ca Norm WB (test code = Ca Norm WB) 1.09 1.05-1.25 [facility] [employer] [id number] 07:18:00 Test Item Value Reference Range Interpretation Comments Glucose Lvl (test code = Glucose Lvl) 205 70-99 [facility] [id number] 07:18:00 Test Item Value Reference Range Interpretation Comments BUN (test code = BUN) 18 7-22 [facility] [id number] 07:18:00 Test Item Value Reference Range Interpretation Comments Creatinine Lvl (test code = Creatinine 0.60 0.50-1.40 Lvl) [facility] [id number] 07:18:00 Test Item Value Reference Range Interpretation Comments Sodium Lvl (test code = Sodium Lvl) 137 135-145 [facility] [employer] [id number] 07:18:00 Test Item Value Reference Range Interpretation Comments Potassium Lvl (test code = Potassium 4.2 3.5-5.1 Lvl) [facility] [id number] 07:18:00 Test Item Value Reference Range Interpretation Comments Chloride Lvl (test code = Chloride Lvl) 102 95-109 [facility] [employer] [id number] 07:18:00 Test Item Value Reference Range Interpretation Comments CO2 (test code = CO2) 28 24-32 [facility] [id number] 07:18:00 Test Item Value Reference Range Interpretation Comments Calcium Lvl (test code = Calcium Lvl) 8.8 8.5-10.5 [facility] [id number] 07:18:00 Test Item Value Reference Range Interpretation Comments AGAP (test code = AGAP) 11.2 10.0-20.0 [place] [address]-03-15 07:18:00 Test Item Value Reference Range Interpretation Comments eGFR (test code = eGFR) 118 [place] [address]-03-15 07:18:00 Test Item Value Reference Range Interpretation Comments Magnesium Lvl (test code = Magnesium 1.8 1.8-2.4 Lvl) [place] 368640-03-15 07:18:00 Test Item Value Reference Range Interpretation Comments Phosphorus (test code = Phosphorus) 3.2 2.5-4.5 [place] [address]-03-15 07:18:00 Test Item Value Reference Range Interpretation Comments WBC (test code = WBC) 13.5 3.7-10.4 [place] [address]-03-15 07:18:00 Test Item Value Reference Range Interpretation Comments RBC (test code = RBC) 3.98 4.20-5.40 [place] [address]-03-15 07:18:00 Test Item Value Reference Range Interpretation Comments Hgb (test code = Hgb) 12.2 12.0-16.0 [place] [address]-03-15 07:18:00 Test Item Value Reference Range Interpretation Comments Hct (test code = Hct) 37.0 36.0-48.0 [place] [address]-03-15 07:18:00 Test Item Value Reference Range Interpretation Comments MCV (test code = MCV) 93.0 80.0-98.0 [place] [address]-03-15 07:18:00 Test Item Value Reference Range Interpretation Comments MCH (test code = MCH) 30.7 pg 27.0-31.0 [place] [address]-03-15 07:18:00 Test Item Value Reference Range Interpretation Comments MCHC (test code = MCHC) 33.0 32.0-36.0 [place] [address]-03-15 07:18:00 Test Item Value Reference Range Interpretation Comments RDW (test code = RDW) 13.2 11.5-14.5 [place] 940670-03-15 07:18:00 Test Item Value Reference Range Interpretation Comments Platelet (test code = Platelet) 256 133-450 [place] 940670-03-15 07:18:00 Test Item Value Reference Range Interpretation Comments MPV (test code = MPV) 8.1 7.4-10.4 [place] [address]-03-15 07:18:00 Test Item Value Reference Range Interpretation Comments RBC Morph (test code = Normal (11/20/19 2:18 RBC Morph) AM) [place] [address]-03-15 07:18:00 Test Item Value Reference Range Interpretation Comments Plt Morph (test code = Normal (11/20/19 2:18 Plt Morph) AM) [place] [address]-03-15 07:18:00 Test Item Value Reference Range Interpretation Comments Segs (test code = Segs) 83.0 45.0-75.0 [place] [address]-03-15 07:18:00 Test Item Value Reference Range Interpretation Comments Lymphocytes (test code = Lymphocytes) 11.2 20.0-40.0 [place] [address]-03-15 07:18:00 Test Item Value Reference Range Interpretation Comments Monocytes (test code = Monocytes) 4.4 2.0-12.0 [place] [address]-03-15 07:18:00 Test Item Value Reference Range Interpretation Comments Eosinophils (test code = 1.1 See_Comment [A utomated message] The Eosinophils) system which ge nerated this result tra nsmitted reference range : <=4.0. The reference r sharon was not used to int erpret this result as normal/abnormal . [place] [address]-03-15 07:18:00 Test Item Value Reference Range Interpretation Comments Basophils (test code = 0.3 See_Comment [Aut omated message] The Basophils) system which ge nerated this result tra nsmitted reference range : <=1.0. The reference r sharon was not used to int erpret this result as normal/abnormal . [facility] PlanoBavjxyiECKWSEBHRE4607-16-85 07:18:00 Test Item Value Reference Range Interpretation Comments Neutrophils # (test code = Neutrophils 11.2 1.5-8.1 #) [place] [address]-03-15 07:18:00 Test Item Value Reference Range Interpretation Comments Lymphocytes # (test code = Lymphocytes 1.5 1.0-5.5 #) [place] [address]-03-15 07:18:00 Test Item Value Reference Range Interpretation Comments Monocytes # (test code 0.6 See_Comment [Aut omated message] The = Monocytes #) system which generated this result tra nsmitted reference range : <=0.8. The reference r sharon was not used to int erpret this result as normal/abnormal . [facility] PlanoBopihhmCEASSBJXYY1343-92-43 07:18:00 Test Item Value Reference Range Interpretation Comments Eosinophils # (test code 0.1 See_Comment [A utomated message] The = Eosinophils #) system whic h generated this result tra nsmitted reference range : <=0.5. The reference r sharon was not used to int erpret this result as normal/abnormal . [facility] PlanoYfkqaygUYTMJHKZWP5865-81-85 07:18:00 Test Item Value Reference Range Interpretation Comments Basophils # (test code 0.0 See_Comment [Aut omated message] The = Basophils #) system which generated this result tra nsmitted reference range : <=0.2. The reference r sharon was not used to int erpret this result as normal/abnormal . [facility]ATHY[facility]ID [id number] 07:18:00 Test Item Value Reference Range Interpretation Comments Ca Ion WB (test code = Ca Ion WB) 1.07 1.05-1.25 [facility] Fly FishingROID [id number] 07:18:00 Test Item Value Reference Range Interpretation Comments Ca Norm WB (test code = Ca Norm WB) 1.09 1.05-1.25 [facility] [id number] 07:06:00 Test Item Value Reference Range Interpretation Comments Phosphorus (test code = Phosphorus) 4.0 2.5-4.5 [facility] [id number] 07:06:00 Test Item Value Reference Range Interpretation Comments Magnesium Lvl (test code = Magnesium 1.7 1.8-2.4 Lvl) [facility] [id number] 07:06:00 Test Item Value Reference Range Interpretation Comments Glucose Lvl (test code = Glucose Lvl) 100 70-99 [facility] [id number] 07:06:00 Test Item Value Reference Range Interpretation Comments BUN (test code = BUN) 13 7-22 [facility] [id number] 07:06:00 Test Item Value Reference Range Interpretation Comments Creatinine Lvl (test code = Creatinine 0.50 0.50-1.40 Lvl) [facility] HospitalAfrica InteractiveSANDHILL[facility] REG[facility]AL MEDICAL [id number] 07:06:00 Test Item Value Reference Range Interpretation Comments Sodium Lvl (test code = Sodium Lvl) 142 135-145 [place] 368640-03-14 07:06:00 Test Item Value Reference Range Interpretation Comments Potassium Lvl (test code = Potassium 3.8 3.5-5.1 Lvl) [place] 368640-03-14 07:06:00 Test Item Value Reference Range Interpretation Comments Chloride Lvl (test code = Chloride Lvl) 105 95-109 [facility] HospitalAfrica InteractiveROBERT [place] [id number] 07:06:00 Test Item Value Reference Range Interpretation Comments CO2 (test code = CO2) 29 24-32 [facility] HospitalAf[facility] InteractiveROBERT [place] [id number] 07:06:00 Test Item Value Reference Range Interpretation Comments AGAP (test code = AGAP) 11.8 10.0-20.0 [place] 368640-03-14 07:06:00 Test Item Value Reference Range Interpretation Comments Calcium Lvl (test code = Calcium Lvl) 8.5 8.5-10.5 [facility] HospitalAf[facility] InteractiveROBERT [place] [id number] 07:06:00 Test Item Value Reference Range Interpretation Comments B/C Ratio (test code = B/C Ratio) 26 1 6-25 [place] 368640-03-14 07:06:00 Test Item Value Reference Range Interpretation Comments Total Protein (test code = Total 6.9 6.4-8.4 Protein) [place] 368640-03-14 07:06:00 Test Item Value Reference Range Interpretation Comments Albumin Lvl (test code = Albumin Lvl) 3.1 3.5-5.0 [place] 368640-03-14 07:06:00 Test Item Value Reference Range Interpretation Comments Globulin (test code = Globulin) 3.8 2.7-4.2 [place] 368640-03-14 07:06:00 Test Item Value Reference Range Interpretation Comments A/G Ratio (test code = A/G Ratio) 0.8 1 0.7-1.6 [place] 368640-03-14 07:06:00 Test Item Value Reference Range Interpretation Comments ALT (test code = ALT) 132 See_Comment [Auto mated message] The system which ge nerated this result transmit roberto carlos reference range : <=65. The reference range was not used to interpr et this result as tyler l/abnormal. [facility] [employer] [id number] 07:06:00 Test Item Value Reference Range Interpretation Comments AST (test code = AST) 184 See_Comment [Auto mated message] The system which ge nerated this result transmit roberto carlos reference range : <=37. The reference range was not used to interpr et this result as tyler l/abnormal. [facility] [employer] [id number] 07:06:00 Test Item Value Reference Range Interpretation Comments Alk Phos (test code = Alk Phos) 109 39-136 [facility] [employer] [id number] 07:06:00 Test Item Value Reference Range Interpretation Comments Bili Total (test code = Bili Total) 0.4 0.2-1.3 [facility] [employer] [id number] 07:06:00 Test Item Value Reference Range Interpretation Comments eGFR (test code = eGFR) 125 [facility] CuygzgoDYINAXNKLE5607-03-67 07:06:00 Test Item Value Reference Range Interpretation Comments WBC (test code = WBC) 9.8 3.7-10.4 [facility] XrossetLDKYBLNWSX4074-85-47 07:06:00 Test Item Value Reference Range Interpretation Comments RBC (test code = RBC) 3.94 4.20-5.40 [facility] YtoclxcDNERUYSLAU5929-58-14 07:06:00 Test Item Value Reference Range Interpretation Comments Hgb (test code = Hgb) 12.4 12.0-16.0 [facility] YvlgcqnRGBELKLIIP8998-60-44 07:06:00 Test Item Value Reference Range Interpretation Comments Hct (test code = Hct) 36.6 36.0-48.0 [facility] VhsiblqFCHFUZGFDF2824-40-96 07:06:00 Test Item Value Reference Range Interpretation Comments MCV (test code = MCV) 92.9 80.0-98.0 [facility] HospitalVphgtrrYXXDQJQHWR9641-98-30 07:06:00 Test Item Value Reference Range Interpretation Comments MCH (test code = MCH) 31.4 pg 27.0-31.0 [facility] GxcegemRMSKJSBZIB5517-79-25 07:06:00 Test Item Value Reference Range Interpretation Comments MCHC (test code = MCHC) 33.8 32.0-36.0 [place] 940670-03-14 07:06:00 Test Item Value Reference Range Interpretation Comments RDW (test code = RDW) 13.1 11.5-14.5 [place] 940670-03-14 07:06:00 Test Item Value Reference Range Interpretation Comments Platelet (test code = Platelet) 246 133-450 [facility] PlanoNpovmyrAJYZNPUOAT3761-78-42 07:06:00 Test Item Value Reference Range Interpretation Comments MPV (test code = MPV) 8.0 7.4-10.4 [place] 940670-03-14 07:06:00 Test Item Value Reference Range Interpretation Comments PTT (test code = PTT) 31.4 s 22.9-35.8 [place] [address]-03-14 07:06:00 Test Item Value Reference Range Interpretation Comments PT (test code = PT) 13.7 s 12.0-14.7 [place] 940670-03-14 07:06:00 Test Item Value Reference Range Interpretation Comments INR (test code = INR) 1.05 1 0.85-1.17 [facility] PlanoIkxfvhbNLFUWYCPZO4814-04-79 07:06:00 Test Item Value Reference Range Interpretation Comments Segs (test code = Segs) 68.3 45.0-75.0 [facility] PlanoOigqlhsDEEDXMSTFO2030-09-76 07:06:00 Test Item Value Reference Range Interpretation Comments Lymphocytes (test code = Lymphocytes) 21.7 20.0-40.0 [facility] PlanoQydbjaaKLIIHNDUGX2540-18-03 07:06:00 Test Item Value Reference Range Interpretation Comments Monocytes (test code = Monocytes) 7.7 2.0-12.0 [place] [address]-03-14 07:06:00 Test Item Value Reference Range Interpretation Comments Eosinophils (test code = 1.7 See_Comment [A utomated message] The Eosinophils) system which ge nerated this result tra nsmitted reference range : <=4.0. The reference r sharon was not used to int erpret this result as normal/abnormal . [facility] PlanoEzvcesvSIYMCAFIDS1970-86-65 07:06:00 Test Item Value Reference Range Interpretation Comments Basophils (test code = 0.6 See_Comment [Aut omated message] The Basophils) system which ge nerated this result tra nsmitted reference range : <=1.0. The reference r sharon was not used to int erpret this result as normal/abnormal . [facility] PlanoAdkgxxkBONLUXKYEW1508-50-16 07:06:00 Test Item Value Reference Range Interpretation Comments Neutrophils # (test code = Neutrophils 6.7 1.5-8.1 #) [facility] PlanoJiloumsGWRKGNXFUE6335-82-57 07:06:00 Test Item Value Reference Range Interpretation Comments Lymphocytes # (test code = Lymphocytes 2.1 1.0-5.5 #) [facility] PlanoSqdywglOPIHHKNYKZ8895-53-62 07:06:00 Test Item Value Reference Range Interpretation Comments Monocytes # (test code 0.8 See_Comment [Aut omated message] The = Monocytes #) system which generated this result tra nsmitted reference range : <=0.8. The reference r sharon was not used to int erpret this result as normal/abnormal . [facility] PlanoMkbpdfoXYBDTPTNYI2203-04-44 07:06:00 Test Item Value Reference Range Interpretation Comments Eosinophils # (test code 0.2 See_Comment [A utomated message] The = Eosinophils #) system whic h generated this result tra nsmitted reference range : <=0.5. The reference r sharon was not used to int erpret this result as normal/abnormal . [facility] PlanoJhfkcrpTUSOWWQONU1457-22-85 07:06:00 Test Item Value Reference Range Interpretation Comments Basophils # (test code 0.1 See_Comment [Aut omated message] The = Basophils #) system which generated this result tra nsmitted reference range : <=0.2. The reference r sharon was not used to int erpret this result as normal/abnormal . [facility] PlanoOfutihdSRAEXXZEZY5718-65-73 07:06:00 Test Item Value Reference Range Interpretation Comments PTT (test code = PTT) 31.4 s 22.9-35.8 [place] 940670-03-14 07:06:00 Test Item Value Reference Range Interpretation Comments PT (test code = PT) 13.7 s 12.0-14.7 [place] [address]-03-14 07:06:00 Test Item Value Reference Range Interpretation Comments INR (test code = INR) 1.05 1 0.85-1.17 [place] 940670-03-14 07:06:00 Test Item Value Reference Range Interpretation Comments Segs (test code = Segs) 68.3 45.0-75.0 [facility] PlanoVjgnqsuHXZVXAJFPH0875-09-67 07:06:00 Test Item Value Reference Range Interpretation Comments Lymphocytes (test code = Lymphocytes) 21.7 20.0-40.0 [facility] PlanoWousvqdLNGUNERPRK1376-30-55 07:06:00 Test Item Value Reference Range Interpretation Comments Monocytes (test code = Monocytes) 7.7 2.0-12.0 [facility] PlanoOjsuxhwUSLNAKIXPV0915-61-42 07:06:00 Test Item Value Reference Range Interpretation Comments Eosinophils (test code = 1.7 See_Comment [A utomated message] The Eosinophils) system which ge nerated this result tra nsmitted reference range : <=4.0. The reference r sharon was not used to int erpret this result as normal/abnormal . [facility] PlanoDayozsjRHOIHPIWQG3115-13-11 07:06:00 Test Item Value Reference Range Interpretation Comments Basophils (test code = 0.6 See_Comment [Aut omated message] The Basophils) system which ge nerated this result tra nsmitted reference range : <=1.0. The reference r sharon was not used to int erpret this result as normal/abnormal . [facility] PlanoCalvcjiDBGRQKSUPS7664-93-37 07:06:00 Test Item Value Reference Range Interpretation Comments Neutrophils # (test code = Neutrophils 6.7 1.5-8.1 #) [facility] PlanoCnerodwBKOARAQXJP8535-21-12 07:06:00 Test Item Value Reference Range Interpretation Comments Lymphocytes # (test code = Lymphocytes 2.1 1.0-5.5 #) [facility] PlanoMvuifekLCORDOEOKZ7848-88-55 07:06:00 Test Item Value Reference Range Interpretation Comments Monocytes # (test code 0.8 See_Comment [Aut omated message] The = Monocytes #) system which generated this result tra nsmitted reference range : <=0.8. The reference r sharon was not used to int erpret this result as normal/abnormal . [facility] PlanoXuhtmnjSCTWBQTLPC9836-23-76 07:06:00 Test Item Value Reference Range Interpretation Comments Eosinophils # (test code 0.2 See_Comment [A utomated message] The = Eosinophils #) system whic h generated this result tra nsmitted reference range : <=0.5. The reference r sharon was not used to int erpret this result as normal/abnormal . [facility]DveoeqtPIHOPMSIMB5565-61-22 07:06:00 Test Item Value Reference Range Interpretation Comments Basophils # (test code 0.1 See_Comment [Aut omated message] The = Basophils #) system which generated this result tra nsmitted reference range : <=0.2. The reference r sharon was not used to int erpret this result as normal/abnormal . [facility] [id number] 07:06:00 Test Item Value Reference Range Interpretation Comments Phosphorus (test code = Phosphorus) 4.0 2.5-4.5 [place] [address]-03-14 07:06:00 Test Item Value Reference Range Interpretation Comments Magnesium Lvl (test code = Magnesium 1.7 1.8-2.4 Lvl) [place] [address]-03-14 07:06:00 Test Item Value Reference Range Interpretation Comments Glucose Lvl (test code = Glucose Lvl) 100 70-99 [place] 368640-03-14 07:06:00 Test Item Value Reference Range Interpretation Comments BUN (test code = BUN) 13 7-22 [facility] [place] [id number] 07:06:00 Test Item Value Reference Range Interpretation Comments Creatinine Lvl (test code = Creatinine 0.50 0.50-1.40 Lvl) [place] [address]-03-14 07:06:00 Test Item Value Reference Range Interpretation Comments Sodium Lvl (test code = Sodium Lvl) 142 135-145 [facility] InteractiveROB[place] [id number] 07:06:00 Test Item Value Reference Range Interpretation Comments Potassium Lvl (test code = Potassium 3.8 3.5-5.1 Lvl) [facility] InteractiveROBERT [place] [id number] 07:06:00 Test Item Value Reference Range Interpretation Comments Chloride Lvl (test code = Chloride Lvl) 105 95-109 [place] 368640-03-14 07:06:00 Test Item Value Reference Range Interpretation Comments CO2 (test code = CO2) 29 24-32 [facility] InteractiveKATHRYN [place] [id number] 07:06:00 Test Item Value Reference Range Interpretation Comments AGAP (test code = AGAP) 11.8 10.0-20.0 [facility] [id number] 07:06:00 Test Item Value Reference Range Interpretation Comments Calcium Lvl (test code = Calcium Lvl) 8.5 8.5-10.5 [facility] [id number] 07:06:00 Test Item Value Reference Range Interpretation Comments B/C Ratio (test code = B/C Ratio) 26 1 6-25 [facility] [employer] [id number] 07:06:00 Test Item Value Reference Range Interpretation Comments Total Protein (test code = Total 6.9 6.4-8.4 Protein) [facility] [employer] [id number] 07:06:00 Test Item Value Reference Range Interpretation Comments Albumin Lvl (test code = Albumin Lvl) 3.1 3.5-5.0 [facility] [employer] [id number] 07:06:00 Test Item Value Reference Range Interpretation Comments Globulin (test code = Globulin) 3.8 2.7-4.2 [facility] [employer] [id number] 07:06:00 Test Item Value Reference Range Interpretation Comments A/G Ratio (test code = A/G Ratio) 0.8 1 0.7-1.6 [facility] [employer] [id number] 07:06:00 Test Item Value Reference Range Interpretation Comments ALT (test code = ALT) 132 See_Comment [Auto mated message] The system which ge nerated this result transmit roberto carlos reference range : <=65. The reference range was not used to interpr et this result as tyler l/abnormal. [facility] [employer] [id number] 07:06:00 Test Item Value Reference Range Interpretation Comments AST (test code = AST) 184 See_Comment [Auto mated message] The system which ge nerated this result transmit roberto carlos reference range : <=37. The reference range was not used to interpr et this result as tyler l/abnormal. [facility] [employer] [id number] 07:06:00 Test Item Value Reference Range Interpretation Comments Alk Phos (test code = Alk Phos) 109 39-136 [facility] [employer] [id number] 07:06:00 Test Item Value Reference Range Interpretation Comments Bili Total (test code = Bili Total) 0.4 0.2-1.3 [facility] [employer] [id number] 07:06:00 Test Item Value Reference Range Interpretation Comments eGFR (test code = eGFR) 125 [facility]XhzvgerILAUXZHXFD0301-25-59 07:06:00 Test Item Value Reference Range Interpretation Comments WBC (test code = WBC) 9.8 3.7-10.4 [facility]anoDfqlizjHAREPFFPJG7571-40-74 07:06:00 Test Item Value Reference Range Interpretation Comments RBC (test code = RBC) 3.94 4.20-5.40 [place] [address]-03-14 07:06:00 Test Item Value Reference Range Interpretation Comments Hgb (test code = Hgb) 12.4 12.0-16.0 [facility]anoVpfqvixDCIFQXZMOK2543-62-99 07:06:00 Test Item Value Reference Range Interpretation Comments Hct (test code = Hct) 36.6 36.0-48.0 [facility] PlanoDxyplmiMINNDCEKQQ2980-08-67 07:06:00 Test Item Value Reference Range Interpretation Comments MCV (test code = MCV) 92.9 80.0-98.0 [place] 940670-03-14 07:06:00 Test Item Value Reference Range Interpretation Comments MCH (test code = MCH) 31.4 pg 27.0-31.0 [facility] PlanoTqshbrsZJTAEJXUDT8562-32-57 07:06:00 Test Item Value Reference Range Interpretation Comments MCHC (test code = MCHC) 33.8 32.0-36.0 [facility] PlanoWxoacmdUPNZWQPJAN8112-24-66 07:06:00 Test Item Value Reference Range Interpretation Comments RDW (test code = RDW) 13.1 11.5-14.5 [facility] PlanoSffkwdeWERIIXVQRE7389-48-33 07:06:00 Test Item Value Reference Range Interpretation Comments Platelet (test code = Platelet) 246 133-450 [facility] PlanoAhgndvzIXCQBSQQUS2512-38-32 07:06:00 Test Item Value Reference Range Interpretation Comments MPV (test code = MPV) 8.0 7.4-10.4 [facility] PlanoGdjzgyaMXBWSUSQLE9827-71-69 07:06:00 Test Item Value Reference Range Interpretation Comments PTT (test code = PTT) 31.4 s 22.9-35.8 [facility] PlanoAwtunpdUGEDJAKKCQ3326-88-76 07:06:00 Test Item Value Reference Range Interpretation Comments PT (test code = PT) 13.7 s 12.0-14.7 [facility] PlanoXngtdmhQLXWGIWWBH0195-15-68 07:06:00 Test Item Value Reference Range Interpretation Comments INR (test code = INR) 1.05 1 0.85-1.17 [facility] PlanoWyszslrUNXBLJGHKW4180-71-85 07:06:00 Test Item Value Reference Range Interpretation Comments Segs (test code = Segs) 68.3 45.0-75.0 [facility] PlanoZlpyxmbWGUWYQEVIY4248-56-02 07:06:00 Test Item Value Reference Range Interpretation Comments Lymphocytes (test code = Lymphocytes) 21.7 20.0-40.0 [facility] PlanoYqefqdkBJKZHUFDIR5237-19-04 07:06:00 Test Item Value Reference Range Interpretation Comments Monocytes (test code = Monocytes) 7.7 2.0-12.0 [facility] PlanoIbngxrtZUBRNNPITL7755-44-60 07:06:00 Test Item Value Reference Range Interpretation Comments Eosinophils (test code = 1.7 See_Comment [A utomated message] The Eosinophils) system which ge nerated this result tra nsmitted reference range : <=4.0. The reference r sharon was not used to int erpret this result as normal/abnormal . [facility] PlanoOtntnioYEYPECIOHI0413-67-21 07:06:00 Test Item Value Reference Range Interpretation Comments Basophils (test code = 0.6 See_Comment [Aut omated message] The Basophils) system which ge nerated this result tra nsmitted reference range : <=1.0. The reference r sharon was not used to int erpret this result as normal/abnormal . [facility] PlanoGuqhjkcLPEJFDBDAW5640-79-70 07:06:00 Test Item Value Reference Range Interpretation Comments Neutrophils # (test code = Neutrophils 6.7 1.5-8.1 #) [facility] PlanoDpkpqegDMNDQOXEST2011-33-41 07:06:00 Test Item Value Reference Range Interpretation Comments Lymphocytes # (test code = Lymphocytes 2.1 1.0-5.5 #) [facility] PlanoRkuoatsQYMUFBODQF3377-99-93 07:06:00 Test Item Value Reference Range Interpretation Comments Monocytes # (test code 0.8 See_Comment [Aut omated message] The = Monocytes #) system which generated this result tra nsmitted reference range : <=0.8. The reference r sharon was not used to int erpret this result as normal/abnormal . [place] 940670-03-14 07:06:00 Test Item Value Reference Range Interpretation Comments Eosinophils # (test code 0.2 See_Comment [A utomated message] The = Eosinophils #) system whic h generated this result tra nsmitted reference range : <=0.5. The reference r sharon was not used to int erpret this result as normal/abnormal . [place] 940670-03-14 07:06:00 Test Item Value Reference Range Interpretation Comments Basophils # (test code 0.1 See_Comment [Aut omated message] The = Basophils #) system which generated this result tra nsmitted reference range : <=0.2. The reference r sharon was not used to int erpret this result as normal/abnormal . [facility] [id number] 07:06:00 Test Item Value Reference Range Interpretation Comments Phosphorus (test code = Phosphorus) 4.0 2.5-4.5 [facility] [id number] 07:06:00 Test Item Value Reference Range Interpretation Comments Magnesium Lvl (test code = Magnesium 1.7 1.8-2.4 Lvl) [facility] [id number] 07:06:00 Test Item Value Reference Range Interpretation Comments Glucose Lvl (test code = Glucose Lvl) 100 70-99 [facility] [id number] 07:06:00 Test Item Value Reference Range Interpretation Comments BUN (test code = BUN) 13 7-22 [facility] [id number] 07:06:00 Test Item Value Reference Range Interpretation Comments Creatinine Lvl (test code = Creatinine 0.50 0.50-1.40 Lvl) [facility] [id number] 07:06:00 Test Item Value Reference Range Interpretation Comments Sodium Lvl (test code = Sodium Lvl) 142 135-145 [facility] [id number] 07:06:00 Test Item Value Reference Range Interpretation Comments Potassium Lvl (test code = Potassium 3.8 3.5-5.1 Lvl) [facility] [id number] 07:06:00 Test Item Value Reference Range Interpretation Comments Chloride Lvl (test code = Chloride Lvl) 105 95-109 [facility] [id number] 07:06:00 Test Item Value Reference Range Interpretation Comments CO2 (test code = CO2) 29 24-32 [facility] HospitalAf[facility] InteractiveROBERT [place] [id number] 07:06:00 Test Item Value Reference Range Interpretation Comments AGAP (test code = AGAP) 11.8 10.0-20.0 [place] [address]-03-14 07:06:00 Test Item Value Reference Range Interpretation Comments Calcium Lvl (test code = Calcium Lvl) 8.5 8.5-10.5 [place] [address]-03-14 07:06:00 Test Item Value Reference Range Interpretation Comments B/C Ratio (test code = B/C Ratio) 26 1 6-25 [facility]Af[facility] InteractiveKATHRYN [place] [id number] 07:06:00 Test Item Value Reference Range Interpretation Comments Total Protein (test code = Total 6.9 6.4-8.4 Protein) [place] [address]-03-14 07:06:00 Test Item Value Reference Range Interpretation Comments Albumin Lvl (test code = Albumin Lvl) 3.1 3.5-5.0 [place] [address]-03-14 07:06:00 Test Item Value Reference Range Interpretation Comments Globulin (test code = Globulin) 3.8 2.7-4.2 [facility] [id number] 07:06:00 Test Item Value Reference Range Interpretation Comments A/G Ratio (test code = A/G Ratio) 0.8 1 0.7-1.6 [place] [address]-03-14 07:06:00 Test Item Value Reference Range Interpretation Comments ALT (test code = ALT) 132 See_Comment [Auto mated message] The system which ge nerated this result transmit roberto carlos reference range : <=65. The reference range was not used to interpr et this result as tyler l/abnormal. [facility] [id number] 07:06:00 Test Item Value Reference Range Interpretation Comments AST (test code = AST) 184 See_Comment [Auto mated message] The system which ge nerated this result transmit roberto carlos reference range : <=37. The reference range was not used to interpr et this result as tyler l/abnormal. [facility] [id number] 07:06:00 Test Item Value Reference Range Interpretation Comments Alk Phos (test code = Alk Phos) 109 39-136 [facility]2020-03-14 07:06:00 Test Item Value Reference Range Interpretation Comments Bili Total (test code = Bili Total) 0.4 0.2-1.3 [facility]2020-03-14 07:06:00 Test Item Value Reference Range Interpretation Comments eGFR (test code = eGFR) 125 [facility]anoBqdhpsxNTTYOZEMYB6256-71-67 07:06:00 Test Item Value Reference Range Interpretation Comments WBC (test code = WBC) 9.8 3.7-10.4 [facility]anoXgywbwfAOFEISRTFJ2211-26-71 07:06:00 Test Item Value Reference Range Interpretation Comments RBC (test code = RBC) 3.94 4.20-5.40 [place] [address]-03-14 07:06:00 Test Item Value Reference Range Interpretation Comments Hgb (test code = Hgb) 12.4 12.0-16.0 [facility] PlanoFniggmgAJMUELPZEK5376-72-25 07:06:00 Test Item Value Reference Range Interpretation Comments Hct (test code = Hct) 36.6 36.0-48.0 [facility] PlanoShrpieuBENTLXMSOJ8033-74-44 07:06:00 Test Item Value Reference Range Interpretation Comments MCV (test code = MCV) 92.9 80.0-98.0 [facility] PlanoGmsxcufFPRBBMQSXR3517-88-13 07:06:00 Test Item Value Reference Range Interpretation Comments MCH (test code = MCH) 31.4 pg 27.0-31.0 [facility] PlanoVrakpbnMXDKHNMTWL2547-43-86 07:06:00 Test Item Value Reference Range Interpretation Comments MCHC (test code = MCHC) 33.8 32.0-36.0 [facility] PlanoHmfywnkUCVFCNWLQH2430-65-54 07:06:00 Test Item Value Reference Range Interpretation Comments RDW (test code = RDW) 13.1 11.5-14.5 [place] [address]-03-14 07:06:00 Test Item Value Reference Range Interpretation Comments Platelet (test code = Platelet) 246 133-450 [facility] PlanoNmwvumlXJGFGEFOBQ9831-73-13 07:06:00 Test Item Value Reference Range Interpretation Comments MPV (test code = MPV) 8.0 7.4-10.4 [place] 940670-03-14 07:06:00 Test Item Value Reference Range Interpretation Comments PTT (test code = PTT) 31.4 s 22.9-35.8 [facility] PlanoQqygolhDIHWAPKIMH1849-69-58 07:06:00 Test Item Value Reference Range Interpretation Comments PT (test code = PT) 13.7 s 12.0-14.7 [place] 940670-03-14 07:06:00 Test Item Value Reference Range Interpretation Comments INR (test code = INR) 1.05 1 0.85-1.17 [facility] PlanoOvrxbcbYCATUAVLLB2068-31-06 07:06:00 Test Item Value Reference Range Interpretation Comments Segs (test code = Segs) 68.3 45.0-75.0 [facility] PlanoCexutecFGTYNDGYJZ9408-23-43 07:06:00 Test Item Value Reference Range Interpretation Comments Lymphocytes (test code = Lymphocytes) 21.7 20.0-40.0 [place] 940670-03-14 07:06:00 Test Item Value Reference Range Interpretation Comments Monocytes (test code = Monocytes) 7.7 2.0-12.0 [facility] PlanoTcgksprZELADHLVFB7874-45-24 07:06:00 Test Item Value Reference Range Interpretation Comments Eosinophils (test code = 1.7 See_Comment [A utomated message] The Eosinophils) system which ge nerated this result tra nsmitted reference range : <=4.0. The reference r sharon was not used to int erpret this result as normal/abnormal . [facility] PlanoZxmefwlKQTOLOHTSV9742-25-94 07:06:00 Test Item Value Reference Range Interpretation Comments Basophils (test code = 0.6 See_Comment [Aut omated message] The Basophils) system which ge nerated this result tra nsmitted reference range : <=1.0. The reference r sharon was not used to int erpret this result as normal/abnormal . [facility] PlanoLnujheaDPBKDOZSJU4637-77-31 07:06:00 Test Item Value Reference Range Interpretation Comments Neutrophils # (test code = Neutrophils 6.7 1.5-8.1 #) [facility] PlanoQnftrnlCOXQDZQMMI8159-97-93 07:06:00 Test Item Value Reference Range Interpretation Comments Lymphocytes # (test code = Lymphocytes 2.1 1.0-5.5 #) [facility] PlanoTktuiikDNLSGZMZEO7668-53-09 07:06:00 Test Item Value Reference Range Interpretation Comments Monocytes # (test code 0.8 See_Comment [Aut omated message] The = Monocytes #) system which generated this result tra nsmitted reference range : <=0.8. The reference r sharon was not used to int erpret this result as normal/abnormal . [place] 940670-03-14 07:06:00 Test Item Value Reference Range Interpretation Comments Eosinophils # (test code 0.2 See_Comment [A utomated message] The = Eosinophils #) system whic h generated this result tra nsmitted reference range : <=0.5. The reference r sharon was not used to int erpret this result as normal/abnormal . [place] 940670-03-14 07:06:00 Test Item Value Reference Range Interpretation Comments Basophils # (test code 0.1 See_Comment [Aut omated message] The = Basophils #) system which generated this result tra nsmitted reference range : <=0.2. The reference r sharon was not used to int erpret this result as normal/abnormal . [facility] [id number] 07:06:00 Test Item Value Reference Range Interpretation Comments Phosphorus (test code = Phosphorus) 4.0 2.5-4.5 [facility] [id number] 07:06:00 Test Item Value Reference Range Interpretation Comments Magnesium Lvl (test code = Magnesium 1.7 1.8-2.4 Lvl) [place] [address]-03-14 07:06:00 Test Item Value Reference Range Interpretation Comments Glucose Lvl (test code = Glucose Lvl) 100 70-99 [facility] [id number] 07:06:00 Test Item Value Reference Range Interpretation Comments BUN (test code = BUN) 13 7-22 [facility] [id number] 07:06:00 Test Item Value Reference Range Interpretation Comments Creatinine Lvl (test code = Creatinine 0.50 0.50-1.40 Lvl) [place] [address]-03-14 07:06:00 Test Item Value Reference Range Interpretation Comments Sodium Lvl (test code = Sodium Lvl) 142 135-145 [facility] [id number] 07:06:00 Test Item Value Reference Range Interpretation Comments Potassium Lvl (test code = Potassium 3.8 3.5-5.1 Lvl) [facility]Af[facility] InteractiveKATHRYN [place] [id number] 07:06:00 Test Item Value Reference Range Interpretation Comments Chloride Lvl (test code = Chloride Lvl) 105 95-109 [place] [address]-03-14 07:06:00 Test Item Value Reference Range Interpretation Comments CO2 (test code = CO2) 29 24-32 [facility] HospitalAf[facility] InteractiveKATHRYN [place] [id number] 07:06:00 Test Item Value Reference Range Interpretation Comments AGAP (test code = AGAP) 11.8 10.0-20.0 [facility] [id number] 07:06:00 Test Item Value Reference Range Interpretation Comments Calcium Lvl (test code = Calcium Lvl) 8.5 8.5-10.5 [facility] [id number] 07:06:00 Test Item Value Reference Range Interpretation Comments B/C Ratio (test code = B/C Ratio) 26 1 6-25 [facility] [id number] 07:06:00 Test Item Value Reference Range Interpretation Comments Total Protein (test code = Total 6.9 6.4-8.4 Protein) [facility] [id number] 07:06:00 Test Item Value Reference Range Interpretation Comments Albumin Lvl (test code = Albumin Lvl) 3.1 3.5-5.0 [facility] [id number] 07:06:00 Test Item Value Reference Range Interpretation Comments Globulin (test code = Globulin) 3.8 2.7-4.2 [facility] [id number] 07:06:00 Test Item Value Reference Range Interpretation Comments A/G Ratio (test code = A/G Ratio) 0.8 1 0.7-1.6 [place] [address]-03-14 07:06:00 Test Item Value Reference Range Interpretation Comments ALT (test code = ALT) 132 See_Comment [Auto mated message] The system which ge nerated this result transmit roberto carlos reference range : <=65. The reference range was not used to interpr et this result as tyler l/abnormal. [facility] [id number] 07:06:00 Test Item Value Reference Range Interpretation Comments AST (test code = AST) 184 See_Comment [Auto mated message] The system which ge nerated this result transmit roberto carlos reference range : <=37. The reference range was not used to interpr et this result as tyler l/abnormal. [facility] [id number] 07:06:00 Test Item Value Reference Range Interpretation Comments Alk Phos (test code = Alk Phos) 109 39-136 [facility] [id number] 07:06:00 Test Item Value Reference Range Interpretation Comments Bili Total (test code = Bili Total) 0.4 0.2-1.3 [facility] [id number] 07:06:00 Test Item Value Reference Range Interpretation Comments eGFR (test code = eGFR) 125 [facility] HospitalVgacsldYFJPJEEFAY6137-03-00 07:06:00 Test Item Value Reference Range Interpretation Comments WBC (test code = WBC) 9.8 3.7-10.4 [facility] HospitalHpaacncCBLSXHFTJR4446-22-81 07:06:00 Test Item Value Reference Range Interpretation Comments RBC (test code = RBC) 3.94 4.20-5.40 [facility] SoutheastHfyqoixDHDBFNILLR5583-01-24 07:06:00 Test Item Value Reference Range Interpretation Comments Hgb (test code = Hgb) 12.4 12.0-16.0 [facility] HospitalWqlgngqRUBQPNKCYP4887-06-10 07:06:00 Test Item Value Reference Range Interpretation Comments Hct (test code = Hct) 36.6 36.0-48.0 [facility] SoutheastYcrbgdsPIBGMEQUIX6333-24-54 07:06:00 Test Item Value Reference Range Interpretation Comments MCV (test code = MCV) 92.9 80.0-98.0 [facility] SoutheastCspsphgDRKHOXKGSN5076-90-46 07:06:00 Test Item Value Reference Range Interpretation Comments MCH (test code = MCH) 31.4 pg 27.0-31.0 [facility] HospitalJysnufrSZXXIPFQZI2979-16-98 07:06:00 Test Item Value Reference Range Interpretation Comments MCHC (test code = MCHC) 33.8 32.0-36.0 [facility] SoutheastUqabqbmEFLTZCHELV4757-41-25 07:06:00 Test Item Value Reference Range Interpretation Comments RDW (test code = RDW) 13.1 11.5-14.5 [facility] HospitalBtzgxoaPQDVODMBYH2397-47-18 07:06:00 Test Item Value Reference Range Interpretation Comments Platelet (test code = Platelet) 246 133-450 [place] 940670-03-14 07:06:00 Test Item Value Reference Range Interpretation Comments MPV (test code = MPV) 8.0 7.4-10.4 [facility]ByeneayOHPRDN0551-73-26 16:12:00 Test Item Value Reference Range Interpretation Comments CHD Risk (test code = CHD Risk) 2.48 1 3.90-5.80 [facility] SoutheastFpqldquJVGYZW1622-88-15 16:12:00 Test Item Value Reference Range Interpretation Comments LDL (Calculated) (test code = LDL 67 (Calculated)) [facility] SoutheastIhvpavmOQCLRC1059-14-16 16:12:00 Test Item Value Reference Range Interpretation Comments VLDL (test code = VLDL) 13 1 [facility] SoutheastPARATHYROID [id number] 16:12:00 Test Item Value Reference Range Interpretation Comments Ca Ion WB (test code = Ca Ion WB) 1.18 1.05-1.25 [facility] [id number] 16:12:00 Test Item Value Reference Range Interpretation Comments Ca Norm WB (test code = Ca Norm WB) 1.22 1.05-1.25 [facility]CHE[facility] [id number] 16:12:00 Test Item Value Reference Range Interpretation Comments Magnesium Lvl (test code = Magnesium 1.9 1.8-2.4 Lvl) [facility] [id number] 16:12:00 Test Item Value Reference Range Interpretation Comments Phosphorus (test code = Phosphorus) 4.8 2.5-4.5 [facility]anoMehtgtyPIQQDKQVQV7147-06-50 16:12:00 Test Item Value Reference Range Interpretation Comments PT (test code = PT) 13.9 s 12.0-14.7 [facility]WlysadrGWHTIUPYRD4941-38-98 16:12:00 Test Item Value Reference Range Interpretation Comments INR (test code = INR) 1.07 1 0.85-1.17 [facility] HospitalKmegdeqZFMJAOSUTL3340-48-18 16:12:00 Test Item Value Reference Range Interpretation Comments PTT (test code = PTT) 28.3 s 22.9-35.8 [facility] HospitalUzomfldESMUZKAETY5381-09-92 16:12:00 Test Item Value Reference Range Interpretation Comments Fibrinogen Lvl (test code = Fibrinogen 436 230-510 Lvl) [facility]DtvrlzfXHRVXV0660-32-96 16:12:00 Test Item Value Reference Range Interpretation Comments Trig (test code = Trig) 66 [facility] HospitalMfvzodgOMUZRI6298-03-18 16:12:00 Test Item Value Reference Range Interpretation Comments Chol (test code = Chol) 134 [facility] HospitalHopfsfxFLNRZN3407-63-50 16:12:00 Test Item Value Reference Range Interpretation Comments HDL (test code = HDL) 54 [facility] HospitalYspsbiaEBRIGO4124-13-85 16:12:00 Test Item Value Reference Range Interpretation Comments CHD Risk (test code = CHD Risk) 2.48 1 3.90-5.80 [facility] HospitalIsotlvoMQBKQR0226-04-76 16:12:00 Test Item Value Reference Range Interpretation Comments LDL (Calculated) (test code = LDL 67 (Calculated)) [facility] HospitalEisvqbjJRWWNB9562-28-42 16:12:00 Test Item Value Reference Range Interpretation Comments VLDL (test code = VLDL) 13 1 [facility] HospitalannPARATHYROID [id number] 16:12:00 Test Item Value Reference Range Interpretation Comments Ca Ion WB (test code = Ca Ion WB) 1.18 1.05-1.25 [facility] HospitalannPARATHYROID SGIZJHY2728-19-21 16:12:00 Test Item Value Reference Range Interpretation Comments Ca Norm WB (test code = Ca Norm WB) 1.22 1.05-1.25 [facility] HospitalannCHEM [id number] 16:12:00 Test Item Value Reference Range Interpretation Comments Magnesium Lvl (test code = Magnesium 1.9 1.8-2.4 Lvl) [facility]CHE[facility] [id number] 16:12:00 Test Item Value Reference Range Interpretation Comments Phosphorus (test code = Phosphorus) 4.8 2.5-4.5 [facility] HospitalJxwgbhlFLQXABKMDV0864-64-45 16:12:00 Test Item Value Reference Range Interpretation Comments PT (test code = PT) 13.9 s 12.0-14.7 [facility] HospitalZhkcawdNYHPEOGLCK9441-53-42 16:12:00 Test Item Value Reference Range Interpretation Comments INR (test code = INR) 1.07 1 0.85-1.17 [facility] HospitalLmruvpxEONMOTDEQV3444-01-84 16:12:00 Test Item Value Reference Range Interpretation Comments PTT (test code = PTT) 28.3 s 22.9-35.8 [facility] SoutheastPnempezRMNXSYAYSL3882-81-38 16:12:00 Test Item Value Reference Range Interpretation Comments Fibrinogen Lvl (test code = Fibrinogen 436 230-510 Lvl) [facility] SoutheastUthlqypNWVMDP2184-12-33 16:12:00 Test Item Value Reference Range Interpretation Comments Trig (test code = Trig) 66 [facility] AustinRzuskimPZOYLN3724-37-66 16:12:00 Test Item Value Reference Range Interpretation Comments Chol (test code = Chol) 134 [facility] SoutheastQeqvkryMCVQDV4970-37-91 16:12:00 Test Item Value Reference Range Interpretation Comments HDL (test code = HDL) 54 [facility] AustinSkkffdrNNNFGC5181-21-18 16:12:00 Test Item Value Reference Range Interpretation Comments CHD Risk (test code = CHD Risk) 2.48 1 3.90-5.80 [facility] SoutheastGtezjxnCFODOE9694-63-71 16:12:00 Test Item Value Reference Range Interpretation Comments LDL (Calculated) (test code = LDL 67 (Calculated)) [facility] AustinDvirckrTPNPSX8676-84-05 16:12:00 Test Item Value Reference Range Interpretation Comments VLDL (test code = VLDL) 13 1 [facility] SoutheastPARATHYROID [id number] 16:12:00 Test Item Value Reference Range Interpretation Comments Ca Ion WB (test code = Ca Ion WB) 1.18 1.05-1.25 [facility]ATHY[facility] [id number] 16:12:00 Test Item Value Reference Range Interpretation Comments Ca Norm WB (test code = Ca Norm WB) 1.22 1.05-1.25 [facility]CHEM [id number] 16:12:00 Test Item Value Reference Range Interpretation Comments Magnesium Lvl (test code = Magnesium 1.9 1.8-2.4 Lvl) [facility]CHE[facility] [id number] 16:12:00 Test Item Value Reference Range Interpretation Comments Phosphorus (test code = Phosphorus) 4.8 2.5-4.5 [facility] HospitalAutvrulOULCHRNDOE6516-20-59 16:12:00 Test Item Value Reference Range Interpretation Comments PT (test code = PT) 13.9 s 12.0-14.7 [facility]anoUbfixmlRQOJHGHQUJ6550-85-55 16:12:00 Test Item Value Reference Range Interpretation Comments INR (test code = INR) 1.07 1 0.85-1.17 [facility] HospitalJaiqodkPOLQSMHKJL5355-83-03 16:12:00 Test Item Value Reference Range Interpretation Comments PTT (test code = PTT) 28.3 s 22.9-35.8 [facility] HospitalVgdduspAWEGMTUFOB7585-70-64 16:12:00 Test Item Value Reference Range Interpretation Comments Fibrinogen Lvl (test code = Fibrinogen 436 230-510 Lvl) [facility] SoutheastYxjlyilJXIESQ3854-42-19 16:12:00 Test Item Value Reference Range Interpretation Comments Trig (test code = Trig) 66 [facility] HospitalKjqourkAXDCXW0548-01-82 16:12:00 Test Item Value Reference Range Interpretation Comments Chol (test code = Chol) 134 [facility] SoutheastVdlaubaCBUBIB5969-60-96 16:12:00 Test Item Value Reference Range Interpretation Comments HDL (test code = HDL) 54 [facility] SoutheastUtwwciyLZKMAV3930-50-54 16:12:00 Test Item Value Reference Range Interpretation Comments CHD Risk (test code = CHD Risk) 2.48 1 3.90-5.80 [facility] HospitalRneojtmBXFMOC5515-85-05 16:12:00 Test Item Value Reference Range Interpretation Comments LDL (Calculated) (test code = LDL 67 (Calculated)) [facility] SoutheastNeruiwgSVPDNM6490-05-29 16:12:00 Test Item Value Reference Range Interpretation Comments VLDL (test code = VLDL) 13 1 [facility] HospitalannPARATHYROID QUGXVVB0510-13-27 16:12:00 Test Item Value Reference Range Interpretation Comments Ca Ion WB (test code = Ca Ion WB) 1.18 1.05-1.25 [facility] SoutheastPARATHYROID [id number] 16:12:00 Test Item Value Reference Range Interpretation Comments Ca Norm WB (test code = Ca Norm WB) 1.22 1.05-1.25 [facility] HospitalannCHEM [id number] 16:12:00 Test Item Value Reference Range Interpretation Comments Magnesium Lvl (test code = Magnesium 1.9 1.8-2.4 Lvl) [facility]CHEM [id number] 16:12:00 Test Item Value Reference Range Interpretation Comments Phosphorus (test code = Phosphorus) 4.8 2.5-4.5 [facility] SoutheastBygvvnuKPJRIDXQPM6419-71-85 16:12:00 Test Item Value Reference Range Interpretation Comments PT (test code = PT) 13.9 s 12.0-14.7 [facility] PlanoIoklxouXMUARDZURR3370-84-40 16:12:00 Test Item Value Reference Range Interpretation Comments INR (test code = INR) 1.07 1 0.85-1.17 [facility] PlanoIuggmpuZSWNCWTKCS6255-14-89 16:12:00 Test Item Value Reference Range Interpretation Comments PTT (test code = PTT) 28.3 s 22.9-35.8 [facility] PlanoHcgoajdFOOFSUVMVR7441-48-62 16:12:00 Test Item Value Reference Range Interpretation Comments Fibrinogen Lvl (test code = Fibrinogen 436 230-510 Lvl) [facility] AustinWzipndaXTVGIE2156-25-68 16:12:00 Test Item Value Reference Range Interpretation Comments Trig (test code = Trig) 66 [place] [id number] 16:12:00 Test Item Value Reference Range Interpretation Comments Chol (test code = Chol) 134 [facility] AustinFfdrvilBLOMBT4741-21-67 16:12:00 Test Item Value Reference Range Interpretation Comments HDL (test code = HDL) 54 [facility] HospitalXdneouqWSHHINXCSIUT0090-90-01 12:16:00 Test Item Value Reference Range Interpretation Comments POC Sodium (test code = POC Sodium) 139 135-145 [place] 538110-03-13 12:16:00 Test Item Value Reference Range Interpretation Comments POC Potassium (test code = POC 4.9 3.5-5.1 Potassium) [facility] HospitalJwqzeitKJOGAWGBYVSH8490-51-28 12:16:00 Test Item Value Reference Range Interpretation Comments POC Chloride (test code = POC Chloride) 102 95-109 [facility] HospitalCmiaxdgGMXFGMYFFBPD9140-02-44 12:16:00 Test Item Value Reference Range Interpretation Comments POC Carbon Dioxide (test code = POC 31 24-32 Carbon Dioxide) [facility] HospitalXkvgqfaDTKMPQSDGYCK4463-32-40 12:16:00 Test Item Value Reference Range Interpretation Comments POC BUN (test code = POC BUN) 24 7-22 [place] 538110-03-13 12:16:00 Test Item Value Reference Range Interpretation Comments POC Creatinine (test code = POC 0.5 0.5-1.4 Creatinine) [facility] HospitalYwsedroGWMCGJFNSJJL3819-60-10 12:16:00 Test Item Value Reference Range Interpretation Comments POC Glucose (test code = POC Glucose) 79 70-99 [place] 538110-03-13 12:16:00 Test Item Value Reference Range Interpretation Comments POC Ion Ca (test code = POC Ion Ca) 1.22 1.05-1.25 [facility] HospitalFmagjexXWVYGLHGLPEA2927-83-79 12:16:00 Test Item Value Reference Range Interpretation Comments POC Hemoglobin (test code = POC 13.9 12.0-16.0 Hemoglobin) [facility] HospitalEpnpqyhOMWCEXYJMOXE9683-41-07 12:16:00 Test Item Value Reference Range Interpretation Comments POC Hematocrit (test code = POC 41.0 36.0-48.0 Hematocrit) [facility] HospitalFuzfsdkRJSDXZWVVGIB7417-73-54 12:16:00 Test Item Value Reference Range Interpretation Comments POC AGAP (test code = POC AGAP) 12.0 10.0-20.0 [facility] HospitalYtdwkzkNFHQDLBJMPHT7418-20-06 12:16:00 Test Item Value Reference Range Interpretation Comments POC Disclaimer (test code See Note = POC Disclaimer) *NA*(11/18/19 7:16 AM) [facility] HospitalImecfmsAYIHYQUKXFYL3103-00-24 12:16:00 Test Item Value Reference Range Interpretation Comments POC Sodium (test code = POC Sodium) 139 135-145 [facility] HospitalVdvdqoyQFOTAJGPZEAY3230-43-30 12:16:00 Test Item Value Reference Range Interpretation Comments POC Potassium (test code = POC 4.9 3.5-5.1 Potassium) [facility] HospitalCtjvntoSSDGVBHTEOQB5188-69-92 12:16:00 Test Item Value Reference Range Interpretation Comments POC Chloride (test code = POC Chloride) 102 95-109 [facility] HospitalFydovjwKKMOWPNMNZBY0413-04-16 12:16:00 Test Item Value Reference Range Interpretation Comments POC Carbon Dioxide (test code = POC 31 24-32 Carbon Dioxide) [facility] HospitalNhvqotsYIKSLZLBYLPX2177-40-05 12:16:00 Test Item Value Reference Range Interpretation Comments POC BUN (test code = POC BUN) 24 7-22 [facility] HospitalMmtszxvXOYQVBLXGALT9373-40-11 12:16:00 Test Item Value Reference Range Interpretation Comments POC Creatinine (test code = POC 0.5 0.5-1.4 Creatinine) [facility] HospitalRhphphwTSFAEXBGXDKS3306-44-33 12:16:00 Test Item Value Reference Range Interpretation Comments POC Glucose (test code = POC Glucose) 79 70-99 [facility] HospitalPhwyumjIWRHIIAHFBFN6109-91-07 12:16:00 Test Item Value Reference Range Interpretation Comments POC Ion Ca (test code = POC Ion Ca) 1.22 1.05-1.25 [facility] HospitalOonaujaPBHBNXHIXKCJ4129-51-20 12:16:00 Test Item Value Reference Range Interpretation Comments POC Hemoglobin (test code = POC 13.9 12.0-16.0 Hemoglobin) [facility] HospitalLlqfzjeJBSMWBOPJTKW1953-82-02 12:16:00 Test Item Value Reference Range Interpretation Comments POC Hematocrit (test code = POC 41.0 36.0-48.0 Hematocrit) [facility] HospitalWdcvwfwBQBBYFQYPEKX6317-03-08 12:16:00 Test Item Value Reference Range Interpretation Comments POC AGAP (test code = POC AGAP) 12.0 10.0-20.0 [facility] HospitalAqztdhhGWNCICCYOJTE4648-23-83 12:16:00 Test Item Value Reference Range Interpretation Comments POC Disclaimer (test code See Note = POC Disclaimer) *NA*(11/18/19 7:16 AM) [facility] HospitalPbxljtrVPIZJFFIWWHN6328-34-54 12:16:00 Test Item Value Reference Range Interpretation Comments POC Sodium (test code = POC Sodium) 139 135-145 [facility] HospitalEhdcfrgGGZGLQTROSVR9191-85-10 12:16:00 Test Item Value Reference Range Interpretation Comments POC Potassium (test code = POC 4.9 3.5-5.1 Potassium) [facility] HospitalKkoxzqlAVGXWRCBMLAJ9018-87-77 12:16:00 Test Item Value Reference Range Interpretation Comments POC Chloride (test code = POC Chloride) 102 95-109 [facility] HospitalSehsqukUFRFWFGQUUDU7379-89-93 12:16:00 Test Item Value Reference Range Interpretation Comments POC Carbon Dioxide (test code = POC 31 24-32 Carbon Dioxide) [facility] HospitalKeuswdzMGNQMYGOWABF8529-86-28 12:16:00 Test Item Value Reference Range Interpretation Comments POC BUN (test code = POC BUN) 24 7-22 [facility] HospitalZdkpglzWRUTEPXIUSCE4350-38-26 12:16:00 Test Item Value Reference Range Interpretation Comments POC Creatinine (test code = POC 0.5 0.5-1.4 Creatinine) [facility] HospitalJiceuzeCXDZVDXUMWBK4886-95-36 12:16:00 Test Item Value Reference Range Interpretation Comments POC Glucose (test code = POC Glucose) 79 70-99 [facility] HospitalSuuamubKWFIGNLDZNFZ8103-12-53 12:16:00 Test Item Value Reference Range Interpretation Comments POC Ion Ca (test code = POC Ion Ca) 1.22 1.05-1.25 [facility] HospitalKggmhbaATRJSUYDEGGU1701-25-47 12:16:00 Test Item Value Reference Range Interpretation Comments POC Hemoglobin (test code = POC 13.9 12.0-16.0 Hemoglobin) [facility] HospitalWncdskaTUOTQSUPHHCG9113-38-61 12:16:00 Test Item Value Reference Range Interpretation Comments POC Hematocrit (test code = POC 41.0 36.0-48.0 Hematocrit) [facility] HospitalXnytpejQRTIWPIEBTGE5759-35-88 12:16:00 Test Item Value Reference Range Interpretation Comments POC AGAP (test code = POC AGAP) 12.0 10.0-20.0 [facility] HospitalFcwhhbnQFLAFSJKSASK9854-76-91 12:16:00 Test Item Value Reference Range Interpretation Comments POC Disclaimer (test code See Note = POC Disclaimer) *NA*(11/18/19 7:16 AM) [facility] HospitalDtjsmhsXZONDXIKETYU9381-46-64 12:16:00 Test Item Value Reference Range Interpretation Comments POC Sodium (test code = POC Sodium) 139 135-145 [facility] HospitalYbijcmsZJQHZEEAEVDO5248-74-84 12:16:00 Test Item Value Reference Range Interpretation Comments POC Potassium (test code = POC 4.9 3.5-5.1 Potassium) [facility] HospitalSpfobztRYLFWEAJUPKD5841-77-67 12:16:00 Test Item Value Reference Range Interpretation Comments POC Chloride (test code = POC Chloride) 102 95-109 [facility] HospitalEvdnmlyIAJERFMKETOU1118-37-16 12:16:00 Test Item Value Reference Range Interpretation Comments POC Carbon Dioxide (test code = POC 31 24-32 Carbon Dioxide) [facility] HospitalFnioduuCDRLKAZVYMTR1185-83-99 12:16:00 Test Item Value Reference Range Interpretation Comments POC BUN (test code = POC BUN) 24 7-22 [facility] HospitalClyhzmeUMHZURFEPZSM9481-53-59 12:16:00 Test Item Value Reference Range Interpretation Comments POC Creatinine (test code = POC 0.5 0.5-1.4 Creatinine) [facility] HospitalAdyhepbZSXNGYUUGWNU3548-34-99 12:16:00 Test Item Value Reference Range Interpretation Comments POC Glucose (test code = POC Glucose) 79 70-99 [facility] HospitalHlxjilhASJMDVDBXMHO9674-96-54 12:16:00 Test Item Value Reference Range Interpretation Comments POC Ion Ca (test code = POC Ion Ca) 1.22 1.05-1.25 [facility]hNNYDENOOAKJC4133-[facility]-36 12:16:00 Test Item Value Reference Range Interpretation Comments POC Hemoglobin (test code = POC 13.9 12.0-16.0 Hemoglobin) [facility]AcycxmxLIKNQRTJQUKV7645-10-76 12:16:00 Test Item Value Reference Range Interpretation Comments POC Hematocrit (test code = POC 41.0 36.0-48.0 Hematocrit) [facility]entonZgsvdrrQFWCOTKTFHWQ0941-13-91 12:16:00 Test Item Value Reference Range Interpretation Comments POC AGAP (test code = POC AGAP) 12.0 10.0-20.0 [facility]CfuhmwuEBOPQBVTZOVP0585-62-66 12:16:00 Test Item Value Reference Range Interpretation Comments POC Disclaimer (test code See Note = POC Disclaimer) *NA*(11/18/19 7:16 AM) [facility] [employer] RQBGFUW4619-85-31 11:55:00 Test Item Value Reference Range Interpretation Comments ABO/Rh (test code = ABO/Rh) A [facility] [employer] [id number] 11:55:00 Test Item Value Reference Range Interpretation Comments Antibody Scrn (test Negative (11/18/19 6:55 code = Antibody Scrn) AM) [facility] Hospital[facility] KAPLZCZ0577-40-32 11:55:00 Test Item Value Reference Range Interpretation Comments ABO/Rh (test code = ABO/Rh) A [facility] [employer] FXPJSZW4018-54-65 11:55:00 Test Item Value Reference Range Interpretation Comments Antibody Scrn (test Negative (11/18/19 6:55 code = Antibody Scrn) AM) [facility] [employer] LGGVCTE2729-01-26 11:55:00 Test Item Value Reference Range Interpretation Comments ABO/Rh (test code = ABO/Rh) A [facility] [employer] PZXSQLS5722-11-91 11:55:00 Test Item Value Reference Range Interpretation Comments Antibody Scrn (test Negative (11/18/19 6:55 code = Antibody Scrn) AM) [facility] [employer] TEIJYNX7118-17-89 11:55:00 Test Item Value Reference Range Interpretation Comments ABO/Rh (test code = ABO/Rh) A [facility] [employer] IMKZGRG3612-96-45 11:55:00 Test Item Value Reference Range Interpretation Comments Antibody Scrn (test Negative (11/18/19 6:55 code = Antibody Scrn) AM) [facility] [employer] - [id number] 20:23:00 Test Item Value Reference Range Interpretation Comments MRSA by PCR (test Negative (11/14/19 3:23 code = MRSA by PCR) PM) [facility] [employer]ymmannBACTERIAL - YLXNHYXF7684-16-18 20:23:00 Test Item Value Reference Range Interpretation Comments MRSA by PCR (test Negative (11/14/19 3:23 code = MRSA by PCR) PM) [facility] [employer] - [id number] 20:23:00 Test Item Value Reference Range Interpretation Comments MRSA by PCR (test Negative (11/14/19 3:23 code = MRSA by PCR) PM) [facility] [employer] - [id number] 20:23:00 Test Item Value Reference Range Interpretation Comments MRSA by PCR (test Negative (11/14/19 3:23 code = MRSA by PCR) PM) [employer] NPCCKJF8499-62-59 20:12:00 Test Item Value Reference Range Interpretation Comments ABO/Rh (test code = ABO/Rh) A [employer] [id number] 20:12:00 Test Item Value Reference Range Interpretation Comments Antibody Scrn (test Negative (11/14/19 3:12 code = Antibody Scrn) PM) [employer] [id number] 20:12:00 Test Item Value Reference Range Interpretation Comments Total Protein (test code = Total 7.5 6.4-8.4 Protein) [employer] [id number] 20:12:00 Test Item Value Reference Range Interpretation Comments Albumin Lvl (test code = Albumin Lvl) 3.5 3.5-5.0 [employer] [id number] 20:12:00 Test Item Value Reference Range Interpretation Comments ALT (test code = ALT) 19 See_Comment [Auto mated message] The system which ge nerated this result transmit roberto carlos reference range : <=65. The reference range was not used to interpr et this result as tyler l/abnormal. [employer]2020-03-09 20:12:00 Test Item Value Reference Range Interpretation Comments AST (test code = AST) 15 See_Comment [Auto mated message] The system which ge nerated this result transmit roberto carlos reference range : <=37. The reference range was not used to interpr et this result as tyler l/abnormal. [employer] [id number] 20:12:00 Test Item Value Reference Range Interpretation Comments Alk Phos (test code = Alk Phos) 74 39-136 [facility] [employer] [id number] 20:12:00 Test Item Value Reference Range Interpretation Comments Bili Total (test code = Bili Total) 0.2 0.2-1.3 [employer]2020-03-09 20:12:00 Test Item Value Reference Range Interpretation Comments B/C Ratio (test code = B/C Ratio) 17 1 6-25 [facility] [employer]2020-03-09 20:12:00 Test Item Value Reference Range Interpretation Comments Globulin (test code = Globulin) 4.0 2.7-4.2 [facility] [employer]2020-03-09 20:12:00 Test Item Value Reference Range Interpretation Comments A/G Ratio (test code = A/G Ratio) 0.9 1 0.7-1.6 [facility] D[id number] 20:12:00 Test Item Value Reference Range Interpretation Comments PT (test code = PT) 12.6 s 12.0-14.7 [facility] NrxzgncTHHDZUCZOQ4863-32-20 20:12:00 Test Item Value Reference Range Interpretation Comments INR (test code = INR) 0.94 1 0.85-1.17 [facility] [employer] [id number] 20:12:00 Test Item Value Reference Range Interpretation Comments ABO/Rh (test code = ABO/Rh) A POS [facility] [employer] [id number] 20:12:00 Test Item Value Reference Range Interpretation Comments Antibody Scrn (test Negative (11/14/19 3:12 code = Antibody Scrn) PM) [employer]2020-03-09 20:12:00 Test Item Value Reference Range Interpretation Comments Total Protein (test code = Total 7.5 6.4-8.4 Protein) [employer]2020-03-09 20:12:00 Test Item Value Reference Range Interpretation Comments Albumin Lvl (test code = Albumin Lvl) 3.5 3.5-5.0 [facility] [id number] 20:12:00 Test Item Value Reference Range Interpretation Comments ALT (test code = ALT) 19 See_Comment [Auto mated message] The system which ge nerated this result transmit roberto carlos reference range : <=65. The reference range was not used to interpr et this result as tyler l/abnormal. [facility] HospitalT[facility] [id number] 20:12:00 Test Item Value Reference Range Interpretation Comments AST (test code = AST) 15 See_Comment [Auto mated message] The system which ge nerated this result transmit roberto carlos reference range : <=37. The reference range was not used to interpr et this result as tyler l/abnormal. [facility] [employer] [id number] 20:12:00 Test Item Value Reference Range Interpretation Comments Alk Phos (test code = Alk Phos) 74 39-136 [facility] [employer] [id number] 20:12:00 Test Item Value Reference Range Interpretation Comments Bili Total (test code = Bili Total) 0.2 0.2-1.3 [facility] [employer] [id number] 20:12:00 Test Item Value Reference Range Interpretation Comments B/C Ratio (test code = B/C Ratio) 17 1 6-25 [facility] [id number] 20:12:00 Test Item Value Reference Range Interpretation Comments Globulin (test code = Globulin) 4.0 2.7-4.2 [facility] [employer] [id number] 20:12:00 Test Item Value Reference Range Interpretation Comments A/G Ratio (test code = A/G Ratio) 0.9 1 0.7-1.6 [id number] 20:12:00 Test Item Value Reference Range Interpretation Comments PT (test code = PT) 12.6 s 12.0-14.7 [id number] 20:12:00 Test Item Value Reference Range Interpretation Comments INR (test code = INR) 0.94 1 0.85-1.17 [facility] [employer] [id number] 20:12:00 Test Item Value Reference Range Interpretation Comments ABO/Rh (test code = ABO/Rh) [facility] [id number] 20:12:00 Test Item Value Reference Range Interpretation Comments Antibody Scrn (test Negative (11/14/19 3:12 code = Antibody Scrn) PM) [facility] [id number] 20:12:00 Test Item Value Reference Range Interpretation Comments Total Protein (test code = Total 7.5 6.4-8.4 Protein) [facility] [id number] 20:12:00 Test Item Value Reference Range Interpretation Comments Albumin Lvl (test code = Albumin Lvl) 3.5 3.5-5.0 [facility] [id number] 20:12:00 Test Item Value Reference Range Interpretation Comments ALT (test code = ALT) 19 See_Comment [Auto mated message] The system which ge nerated this result transmit roberto carlos reference range : <=65. The reference range was not used to interpr et this result as tyler l/abnormal. [facility] [employer] [id number] 20:12:00 Test Item Value Reference Range Interpretation Comments AST (test code = AST) 15 See_Comment [Auto mated message] The system which ge nerated this result transmit roberto carlos reference range : <=37. The reference range was not used to interpr et this result as tyler l/abnormal. [facility] [id number] 20:12:00 Test Item Value Reference Range Interpretation Comments Alk Phos (test code = Alk Phos) 74 39-136 [facility] [employer] [id number] 20:12:00 Test Item Value Reference Range Interpretation Comments Bili Total (test code = Bili Total) 0.2 0.2-1.3 [facility] [employer] [id number] 20:12:00 Test Item Value Reference Range Interpretation Comments B/C Ratio (test code = B/C Ratio) 17 1 6-25 [facility] [employer] [id number] 20:12:00 Test Item Value Reference Range Interpretation Comments Globulin (test code = Globulin) 4.0 2.7-4.2 [facility] [employer] [id number] 20:12:00 Test Item Value Reference Range Interpretation Comments A/G Ratio (test code = A/G Ratio) 0.9 1 0.7-1.6 [facility] [id number] 20:12:00 Test Item Value Reference Range Interpretation Comments PT (test code = PT) 12.6 s 12.0-14.7 [facility] [id number] 20:12:00 Test Item Value Reference Range Interpretation Comments INR (test code = INR) 0.94 1 0.85-1.17 [facility] [employer] [id number] 20:12:00 Test Item Value Reference Range Interpretation Comments ABO/Rh (test code = ABO/Rh) A POS [facility] [employer] [id number] 20:12:00 Test Item Value Reference Range Interpretation Comments Antibody Scrn (test Negative (11/14/19 3:12 code = Antibody Scrn) PM) [facility] [employer] [id number] 20:12:00 Test Item Value Reference Range Interpretation Comments Total Protein (test code = Total 7.5 6.4-8.4 Protein) [facility] [employer]2020-03-09 20:12:00 Test Item Value Reference Range Interpretation Comments Albumin Lvl (test code = Albumin Lvl) 3.5 3.5-5.0 [facility] [employer]2020-03-09 20:12:00 Test Item Value Reference Range Interpretation Comments ALT (test code = ALT) 19 See_Comment [Auto mated message] The system which ge nerated this result transmit roberto carlos reference range : <=65. The reference range was not used to interpr et this result as tyler l/abnormal. [employer] [id number] 20:12:00 Test Item Value Reference Range Interpretation Comments AST (test code = AST) 15 See_Comment [Auto mated message] The system which ge nerated this result transmit roberto carlos reference range : <=37. The reference range was not used to interpr et this result as tyler l/abnormal. [employer]2020-03-09 20:12:00 Test Item Value Reference Range Interpretation Comments Alk Phos (test code = Alk Phos) 74 39-136 [facility] [employer] [id number] 20:12:00 Test Item Value Reference Range Interpretation Comments Bili Total (test code = Bili Total) 0.2 0.2-1.3 [facility]2020-03-09 20:12:00 Test Item Value Reference Range Interpretation Comments B/C Ratio (test code = B/C Ratio) 17 1 6-25 [facility]2020-03-09 20:12:00 Test Item Value Reference Range Interpretation Comments Globulin (test code = Globulin) 4.0 2.7-4.2 [facility]2020-03-09 20:12:00 Test Item Value Reference Range Interpretation Comments A/G Ratio (test code = A/G Ratio) 0.9 1 0.7-1.6 [id number] 20:12:00 Test Item Value Reference Range Interpretation Comments PT (test code = PT) 12.6 s 12.0-14.7 [id number] 20:12:00 Test Item Value Reference Range Interpretation Comments INR (test code = INR) 0.94 1 0.85-1.17 [facility]
[2022-09-26 14:09] LABS: Urine Blood 2+ (Negative); Urine Glucose Negative (Negative); Urine Protein Negative (Negative); Urine Specific Gravity 1.025 (1.005-1.030)
[2022-09-26] MEDS ORDERED: PHENAZOPYRIDINE 100MG TAB PO ONE (14:16)
[2022-09-26 14:29] LABS: Urine Bacteria 20-50 /HPF (<20); Urine Mucus 1+ /HPF (None Seen); Urine RBC 21-50 /HPF (None Seen); Urine WBC Clump Occasional /HPF (None Seen)
--- NOTE | 2022-09-26 15:41 | ER ---
Nurse's Notes [facility] Name: Charlotte Ruvalcaba Age: 57 yrs Sex: Female : 1965 Arrival Date: 09/26/2022 Time: 13:47 Bed 7 Private MD: Diagnosis: Pyelonephritis acute;Dysuria Presentation: 09/26 13:49 Chief complaint: Patient states: pain and burning with urination since last night , iw also having back pain , she had a UTI when she was admitted here in September 04, they gave her antibiotics while she was here but no prescription to go home with , she was admitted for chest pain. Coronavirus screen: At this time, the client does not indicate any symptoms associated with coronavirus-19. Ebola Screen: Patient negative for fever greater than or equal to 101.5 degrees Fahrenheit, and additional compatible Ebola Virus Disease symptoms Patient denies exposure to infectious person. Patient denies travel to an Ebola-affected area in the 21 days before illness onset. No symptoms or risks identified at this time. 13:49 Method Of Arrival: Ambulatory iw 13:50 Initial Sepsis Screen: Does the patient meet any 2 criteria? No. Patient's initial iw sepsis screen is negative. Does the patient have a suspected source of infection? No. Patient's initial sepsis screen is negative. Risk Assessment: Do you want to hurt yourself or someone else? Patient reports no desire to harm self or others. Onset of symptoms was September 25, 2022. 13:50 Acuity: RASHAD 3 iw Historical: - Allergies: 13:51 NKDA; iw - Home Meds: 13:51 albuterol sulfate 90 mcg/actuation Inhl HFAA 2 puffs twice daily as needed [Active]; iw amlodipine 5 mg tab 1 tab once daily [Active]; gabapentin 600 mg Oral tab 1 tab 3 times per day [Active]; Januvia 50 mg Oral tab 1 tab once daily [Active]; levothyroxine 50 mcg cap 1 cap once daily [Active]; losartan-hydrochlorothiazide 100-25 mg Oral tab 1 tab once daily [Active]; metformin 500 mg Oral tab 1 tab [Active]; omeprazole 40 mg Oral cpDR 1 cap once daily [Active]; sertraline 50 mg Oral tab 1 tab once daily [Active]; simvastatin 10 mg Oral tab 1 tab once daily [Active]; trazodone 50 mg Oral tab 1 tab once daily [Active]; Trulance 3 mg Oral tab 1 tab [Active]; - PMHx: 13:51 Asthma; CAD; COPD; Diabetes - IDDM; Gout; Hypertension; Hypothyroidism; iw - PSHx: 13:51 back sx; Coronary Stent; hysterectomy; knee replacement; iw - Immunization history:: Adult Immunizations up to date. - Social history:: Smoking status: Patient denies any tobacco usage or history of. Screenin:54 Abuse screen: Denies threats or abuse. Nutritional screening: No deficits noted. ll1 Tuberculosis screening: No symptoms or risk factors identified. 16:[address] [facility] ED Fall Risk Assessment (Adult) Score/Fall Risk Level 0 - 2 = Low Risk ll1 Oriented to surroundings, Maintained a safe environment, Educated pt \T\ family on fall prevention, incl call for assistance when getting out of bed, Hourly rounding (assess needs \T\ fall precautionary measures) done. Assessment: 13:55 General: Appears in no apparent distress. Behavior is calm, cooperative, appropriate ll1 for age. Pain: Complains of pain in with urination Quality of pain is described as burning, stinging. : Reports burning with urination, pain urinary frequency. 14:25 Reassessment: No changes from previously documented assessment. Patient and/or family ll1 updated on plan of care and expected duration. Pain level reassessed. Patient is alert, oriented x 3, equal unlabored respirations, skin warm/dry/pink. 15:00 Reassessment: No changes from previously documented assessment. given warm blanket. ll1 16:00 Reassessment: No changes from previously documented assessment. Patient and/or family ll1 updated on plan of care and expected duration. Pain level reassessed. Patient is alert, oriented x 3, equal unlabored respirations, skin warm/dry/pink. Patient states feeling better. Vital Signs: 13:49 BP 137 / 55; Pulse 79; Resp 16; Temp 98.4; Pulse Ox 96% on R/A; Weight 83.01 kg; Height iw 5 ft. 4 in. (162.56 cm); 13:49 Body Mass Index 31.41 (83.01 kg, 162.56 cm) iw ED Course: 13:47 Patient arrived in ED. iw 13:51 Isael Grier DO is Attending Physician. ms3 13:51 Triage completed. iw 13:52 Arm band placed on. iw 13:54 Romulo Flores, RN is Primary Nurse. ll1 13:54 Patient placed in an exam room, on a stretcher. ll1 13:55 Patient has correct armband on for positive identification. Bed in low position. Call ll1 light in reach. Cardiac monitoring not applicable on this patient. 14:13 Urine Microscopic Only Sent. mm9 14:16 Warm blanket given. mm9 14:16 Urine collected: clean catch specimen, cloudy. mm9 15:40 Baljeet De Anda DO is Referral Physician. ms3 16:00 No provider procedures requiring assistance completed. Patient did not have IV access ll1 during this emergency room visit. Administered Medications: 14:18 Drug: Pyridium (phenazopyridine) 200 mg Route: PO; ll1 16:03 Follow up: Response: No adverse reaction ll1 Medication: 13:55 VIS not applicable for this client. ll1 Outcome: 15:40 Discharge ordered by MD. ms3 16:00 Discharged to home ambulatory. ll1 16:00 Condition: stable 16:00 Discharge instructions given to patient, Instructed on discharge instructions, follow up and referral plans. medication usage, Demonstrated understanding of instructions, follow-up care, medications, Prescriptions given X 2. 16:04 Patient left the ED. ll1 Signatures: Natalie Causey RN RN Romulo Flores RN RN ll1 Isael Grier DO DO ms3 Shaunna Washington mm9 Corrections: (The following items were deleted from the chart) 13:51 13:49 Chief complaint: Patient states: pain and burning with urination since last night iw , also having back pain iw 13:53 13:49 Pulse 79bpm; Resp 16bpm; Pulse Ox 96% RA; Temp 98.4F; iw iw
--- NOTE | 2022-09-26 15:41 | EDPHYS ---
Physician Documentation [facility] Name: Charlotte Ruvalcaba Age: 57 yrs Sex: Female : 1965 Arrival Date: 09/26/2022 Time: 13:47 Bed 7 Private MD: ED Physician Isael Grier HPI: 09/26 14:07 This 57 yrs old Black Female presents to ER via Ambulatory with complaints of Dysuria. ms3 14:07 57-year-old female with past medical history of asthma, coronary artery disease, COPD, ms3 diabetes, gout, hypertension, hypothyroidism presents for dysuria that began yesterday. Patient rates the pain a 9/10 and describes the pain is burning. Patient denies fevers, chills, nausea, vomiting, diarrhea. Patient endorses left flank pain. Patient denies alleviating or inciting factors.. Historical: - Allergies: 13:51 NKDA; iw - Home Meds: 13:51 albuterol sulfate 90 mcg/actuation Inhl HFAA 2 puffs twice daily as needed [Active]; iw amlodipine 5 mg tab 1 tab once daily [Active]; gabapentin 600 mg Oral tab 1 tab 3 times per day [Active]; Januvia 50 mg Oral tab 1 tab once daily [Active]; levothyroxine 50 mcg cap 1 cap once daily [Active]; losartan-hydrochlorothiazide 100-25 mg Oral tab 1 tab once daily [Active]; metformin 500 mg Oral tab 1 tab [Active]; omeprazole 40 mg Oral cpDR 1 cap once daily [Active]; sertraline 50 mg Oral tab 1 tab once daily [Active]; simvastatin 10 mg Oral tab 1 tab once daily [Active]; trazodone 50 mg Oral tab 1 tab once daily [Active]; Trulance 3 mg Oral tab 1 tab [Active]; - PMHx: 13:51 Asthma; CAD; COPD; Diabetes - IDDM; Gout; Hypertension; Hypothyroidism; iw - PSHx: 13:51 back sx; Coronary Stent; hysterectomy; knee replacement; iw - Immunization history:: Adult Immunizations up to date. - Social history:: Smoking status: Patient denies any tobacco usage or history of. ROS: 14:07 Positive for flank pain, urinary frequency, burning with urination. ms3 14:07 Constitutional: Negative for fever, and chills. Neck: Negative for injury, pain, and swelling, Cardiovascular: Negative for chest pain, and palpitations. Respiratory: Negative for shortness of breath, cough, wheezing, and pleuritic chest pain, Abdomen/GI: Negative for abdominal pain, nausea, vomiting, diarrhea, and constipation. 14:07 Skin: Negative for injury, rash, and discoloration. 14:07 All other systems are negative. Exam: 14:07 Constitutional: This is a well developed, well nourished patient who is awake, alert, ms3 and in no acute distress. Head/Face: Normocephalic, atraumatic. Neck: Trachea midline, no cervical lymphadenopathy. Supple, full range of motion without nuchal rigidity, or vertebral point tenderness. No Meningismus. Chest/axilla: Normal chest wall appearance and motion. Nontender with no deformity. Cardiovascular: Regular rate and rhythm with a normal S1 and S2. No gallops, murmurs, or rubs. Normal PMI, no JVD. No pulse deficits. Respiratory: Lungs have equal breath sounds bilaterally, clear to auscultation and percussion. No rales, rhonchi or wheezes noted. No increased work of breathing, no retractions or nasal flaring. Abdomen/GI: Soft, non-tender, with normal bowel sounds. No distension or tympany. No guarding or rebound. No evidence of tenderness throughout. Skin: Warm, dry with normal turgor. Normal color with no rashes, no lesions, and no evidence of cellulitis. MS/ Extremity: Pulses equal, no cyanosis. Neurovascular intact. Full, normal range of motion. 14:07 Back: CVA tenderness, that is moderate, is noted on the left. Vital Signs: 13:49 BP 137 / 55; Pulse 79; Resp 16; Temp 98.4; Pulse Ox 96% on R/A; Weight 83.01 kg; Height iw 5 ft. 4 in. (162.56 cm); 13:49 Body Mass Index 31.41 (83.01 kg, 162.56 cm) iw MDM: 14:06 Patient medically screened. ms3 14:09 Differential diagnosis: urinary tract infection, pyelonephritis vs msk pain vs dysuria. ms3 Care significantly affected by the following chronic conditions: Diabetes, Hypertension, Chronic Obstructive Pulmonary Disease. 15:42 Data reviewed: vital signs, nurses notes, lab test result(s), urinalysis, and as a ms3 result, I will discharge patient. Consideration of Admission/Observation Escalation of care including admission/observation considered. I considered the following discharge prescriptions or medication management in the emergency department Antibiotics Rx. Test considered but Not performed: Other Details CT scan not performed. Patient without fever and VSS.. Counseling: I had a detailed discussion with the patient and/or guardian regarding: the historical points, exam findings, and any diagnostic results supporting the discharge/admit diagnosis, lab results, the need for outpatient follow up, to return to the emergency department if symptoms worsen or persist or if there are any questions or concerns that arise at home. Special discussion: I discussed with the patient/guardian in detail that at this point there is no indication for admission to the hospital. It is understood, however, that if the symptoms persist or worsen the patient needs to return immediately for re-evaluation. ED course: Discussed urinalysis results with patient. Patient remains without fever, chills. Vital signs are reassuring. Discussed strict return precautions with patient to include fevers, vomiting worsening symptoms, or any other concerns. Patient understands agrees with plan. All questions were answered. Patient given prescription for Vantin 200 mg p.o. twice daily x10 days.. 09/26 14:09 Order name: Urine Dipstick-Ancillary; Complete Time: 15:39 EDMS 09/26 14:07 Order name: Urine Dipstick-Ancillary (obtain specimen); Complete Time: 14:09 ms3 09/26 14:10 Order name: Urine Microscopic Only; Complete Time: 15:39 ms3 09/26 14:32 Order name: Urine Culture EDMS Administered Medications: 14:18 Drug: Pyridium (phenazopyridine) 200 mg Route: PO; ll1 16:03 Follow up: Response: No adverse reaction ll1 Disposition Summary: 09/26/22 15:40 Discharge Ordered Location: Home ms3 Problem: new ms3 Symptoms: are unchanged ms3 Condition: Stable ms3 Diagnosis - Pyelonephritis acute ms3 - Dysuria ms3 Followup: ms3 - With: Adilson, Baljeet, DO - When: 2 - 3 days - Reason: Recheck today's complaints Discharge Instructions: - Discharge Summary Sheet ms3 - Pyelonephritis, Adult ms3 Forms: - Medication Reconciliation Form ms3 - Thank You Letter ms3 - Antibiotic Education ms3 - Prescription Opioid Use ms3 Prescriptions: - cefpodoxime 200 mg Oral Tablet - take 2 tablets by ORAL route every 12 hours with food; 20 tablet; Refills: 0, ms3 Product Selection Permitted - Pyridium 200 mg Oral Tablet - take 1 tablet by ORAL route every 8 hours for 3 days; 9 tablet; Refills: 0, ms3 Product Selection Permitted Signatures: Dispatcher [employer] Natalie Paulino RN RN iw Romulo Flores RN RN ll1 Isael Grier DO DO ms3
[2022-09-26 16:08] VITALS: BP 137/55; TEMP 98.4; O2SAT 96
== END 2022-09-26 16:04 | disposition home or self-care (01) ==
LOC: ER 13:32
DX: N10 Acute pyelonephritis (principal); I10 Essential (primary) hypertension; E11.9 Type 2 diabetes mellitus without complications
CPT/HCPCS: 81003; 81015; 87077; 87086; 87088; 87186; 99283

== ENCOUNTER 2022-10-29 12:41 | Emergency (ER) | payer OTHER ==
--- OUTSIDE RECORDS SUMMARY | 2022-10-29 13:02 | XMS REPORT | Continuity of Care Document ---
:1965 Author Organization [facility] t Address [address] [place] [address] Care Team Providers Name Role Phone Laura Naseem Pham Primary Care Physician Baljeet De Anda Attending Clinician Unavailable GIANNA ROBERTS Attending Clinician Unavailable Vira Guerrero Attending Clinician Unavailable Tawana Ramirez Attending Clinician Unavailable PEE HANCOCK Attending Clinician Unavailable RADIOLOGY Attending Clinician Unavailable PRADIP YUNG Attending Clinician Unavailable Pradip Yung MD Attending Clinician MARI MITCHELL Attending Clinician Unavailable Mari Mitchell MD Attending Clinician Doctor Unassigned, Bradley Attending Clinician Unavailable ZACKARY HAYWOOD Attending Clinician Unavailable Zackary Haywood MD Attending Clinician Armond Montoya MD Attending Clinician [phone] ALE FOREMAN Attending Clinician Unavailable Ale Banda Attending Clinician PRICILLA DOOLEY Attending Clinician Unavailable Dooley PAC, Pricilla S Attending Clinician EVANGELISTA ALBRECHT B Attending Clinician Unavailable Trena COMMUNITY FUNDRAISER, Evangelista B Attending Clinician Nurse, [facility] Attending Clinician Unavailable Marcus JONES, Lisa Attending Clinician LISA VELAZQUEZ Attending Clinician Unavailable Pee Hancock MD Attending Clinician Alireza Ceja CRNA Attending Clinician Royce Turcios MD Attending Clinician Pob, [facility] Attending Clinician Unavailable Chanel Gupta DO Attending Clinician Marilia Dooley MD Attending Clinician BRITTNI KELLY Attending Clinician Unavailable Richard COMMUNITY FUNDRAISER, Brittni Attending Clinician BRITTANEY DE LEON Attending Clinician Unavailable RICARDO VEGA Attending Clinician Unavailable Glendy BRAGA, Ricardo S Attending Clinician Jsoh Bennett Attending Clinician ALISTAIR CASTELLANOS Attending Clinician Unavailable Josh Bennett MD Attending Clinician Kendrick Tolliver DO Attending Clinician Armond Siu APRN Attending Clinician Francisco Andrea Attending Clinician Unavailable Royce Rivers MD Attending Clinician Gilmer Hurst Attending Clinician Sadia Farr I Attending Clinician SADIA FARR I Attending Clinician Unavailable PEE HANCOCK Admitting Clinician Unavailable PRADIP YUNG Admitting Clinician Unavailable MARI MITCHELL Admitting Clinician Unavailable ZACKARY HAYWOOD Admitting Clinician Unavailable Pee Hancock MD Admitting Clinician Referred, Self Admitting Clinician Unavailable Sadia Farr I Admitting Clinician SADIA FARR I Admitting Clinician Unavailable Payers Payer Name Policy Type Policy Number Effective Date Expiration Date S ource [employer] [place] [id number] 2015 00:00:00 [facility] [id number] 2016 MEDICAID 00:00:00 MEDICAID [place] [id number] 2022 00:00:00 Problems Condition Condition Condition Status Onset Resolution Last Treating Co mments Source Name Details Category Date Date Treatment Clinician Date DX: DX: Diagnosis Active 2022-02-10 Mem oria R11.0=NAUS R11.0=NAUS -23 10:13:00 l EA/R10.12= EA/R10.12= 00:00: He rmann LEFT UPPER LEFT UPPER 00 QUADR QUADR Active 01/27/2022 [facility] Ganglion Ganglion Disease Active Overview: Un donaldo cyst of cyst of 11-05 Formattin ity o f finger finger 00:00: g of this [place] [address] note Medical might be Branch different from the original. Added automatic ally from request for surgery [id number] SACROLIAC SACROLIAC Diagnosis Active 2020-092021-06-25 Memoria LT, MAGALIE LT, MAGALIE 0-05 13:48:00 l HIP HIP 08:00: [place] BURSITIS, BURSITIS, 00 IT BAND IT BAND Active 06/11/2021 [facility] M53.3 - M53.3 - Diagnosis Active 2021-04-03 Memoria SACROCOCCY SACROCOCCY 03-05 07:05:00 l GEAL GEAL 00:01: [place] DISORDERS, DISORDERS, 00 NOT NOT Active 03/05/2021 OPID [facility] Disease Active [facility] trochanter trochanter 02-27 He [...] ity of of total of total 00:00: [place] knee knee 00 Medical Branch S/P total S/P total Disease Active 2019-09 Overview: Univers knee knee Formattin ity of replacemen replacemen 00:00: g of this [place] t, right t, right 00 note Medica l might be Branch different from the original. Added automatic ally from request for surgery [id number] Painful Painful Disease Active Univers orthopaedi orthopaedi 04-12 [place] of c hardware [place] I65.22 I65.22 Diagnosis Active 2019-11-24 Me moria Active 11-07 21:49:00 l 11/08/2019 00:00: Andrei MCCLELLAN 00 [facility] N/A N/A Diagnosis Active 2019-11-16 Mem oria Active 11-07 09:55:00 l 11/08/2019 00:00: Andrei MCCLELLAN [facility] Degenerati Degenerati Disease Active 2017-09 M [...] Dysfuncti onal uterine bleedingI CD10 Diagnosis Term Janitorial Tech Utility Type 2 Type 2 Disease Active Overview: Univer s diabetes diabetes 01-13 Formattin ity of mellitus mellitus 00:00: g of this Claudio as without without 00 note Medical complicati complicati might be Branch ons ons different from the original. ICD10 Diagnosis Term Janitorial Tech Utility Uncontroll Uncontroll Problem Active C ommon ed type 2 ed type 2 Spir it diabetes diabetes - [facility] mellitus mellitus St with with [facility] hyperglyce hyperglyce Me dical [facility] Anxiety Anxiety Problem Active Common [facility] Asthma, Asthma, Problem Active Common unspecifie unspecifie Sp yaron d asthma d asthma - [facility] severity, severity, St unspecifie unspecifie Verenice kes d whether d whether Medi cipriano complicate complicate Ce nter d, d, unspecifie unspecifie d whether d whether persistent persistent Diabetes Diabetes Problem Active Commo n [facility] Swelling Swelling Problem Active Commo n [facility] High blood High blood Problem [facility] pressure pressure [facility] Sinus Sinus Problem Active Common problem problem [facility] High High Problem Active Common cholestero cholestero Sp ayron l l [facility] Depression Depression Problem Active C ommon with with Spirit anxiety anxiety [facility] Acquired Acquired Problem Active Commo n hypothyroi hypothyroi Sp yaron dism dism [facility] Chronic Chronic Problem Active Common pain pain Spirit syndrome syndrome [facility] Polyarthra Polyarthra Problem Active C ommon lgia lgia [facility] Gastroesop Gastroesop Problem Active C ommon hageal hageal Spirit reflux reflux - [facility] disease, disease, St esophagiti esophagiti Verenice kes s presence s presence Me dical not not Center specified specified Chronic Chronic Problem Active Common obstructiv obstructiv Sp yaron e e - [facility] pulmonary pulmonary [facility] disease, disease, [facility] unspecifie unspecifie Me dical d COPD d COPD Center type type Abnormal Abnormal Problem Active Commo n urine odor urine odor Sp yaron [facility] Hoarseness Hoarseness Problem Active C ommon [facility] Hyperlipid Hyperlipid Problem Active C ommon emia, emia, Spirit unspecifie unspecifie - [facility] d d St hyperlipid hyperlipid Verenice kes emia type emia type [facility] Sore Sore Problem Active Common throat throat [facility] Non-intrac Non-intrac Problem Active C ommon table table Spirit vomiting vomiting - [facility] with with St nausea, nausea, [facility] unspecifie unspecifie Me dical d vomiting d vomiting Ce nter type type Chest Chest Problem Active Common tightness tightness Spir [facility] Exposure Exposure Problem Active Commo n to mold to mold [facility] Wheezing Wheezing Problem Active Commo n [facility] Shortness Shortness Problem Active Com mon of breath of breath Spir [facility] Itching Itching Problem Active Common [facility] Muscle Muscle Problem Active Common cramping cramping [facility] Right leg Right leg Problem Active Com mon pain pain [facility] Acute Acute Problem Active Common right-side right-side Sp yaron d thoracic d thoracic - [facility] back pain back pain [facility] Low back Low back Problem Active Commo n pain pain [facility] Other Other Problem Active Common chronic chronic Spirit pain [facility] Obesity Obesity Disease Active Univers (BMI (BMI ity of 30-39.9) 30-39.9) [facility] Lumbago Lumbago Problem Active Common with with Spirit sciatica, sciatica, - [facility] I right side right side [facility] Status Status Problem Active Common post fall post fall Spir [facility] Dizziness Dizziness Problem Active Com mon [facility] Imbalance Imbalance Problem Active Com mon [facility] Difficulty Difficulty Problem Active C ommon sleeping sleeping [facility] Acute Acute Problem Active Common stress stress [facility] reaction reaction [facility] 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 both - [facility] carotid carotid arteries [facility] Stenosis Stenosis Problem Active Commo n of left of left Spirit carotid carotid - [facility] artery artery [facility] Status Status Problem Active Common post CVA post CVA [facility] Stenosis Stenosis Problem Active Commo n of right of right [facility] carotid carotid [facility] artery artery [facility] Occlusion Occlusion Problem 2019-11-23 Memoria and and 21:46:33 l stenosis stenosis Andrei n of left of left carotid carotid artery artery 11/23/2019 [facility] Carotid Carotid Problem Active 2021-07-27 Me moria artery artery 01:20:12 l stenosis stenosis Andrei n (disorder) (disorder) Active Problem 07/27/2021 Medical Group,[facility] [place] her Neuro, MEREDITHD [place], [facility] Carpal Carpal Problem Active 2021-07-27 Brennen oscar 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 Andrei n (disorder) (disorder) Active Problem 07/27/2021 Medical Group,[facility] [place] her Neuro, OPID [place], [facility] Diabetes Diabetes Problem Active 2021-07-27 Memoria mellitus mellitus 01:20:12 l (disorder) (disorder) He rmann Active Problem 07/27/2021 Medical Group,[facility] [place] her Neuro, MEREDITHD [place],[facility], [facility] Diabetes Diabetes Problem Active 2021-07-27 Memoria mellitus mellitus 01:20:12 l type 2 type 2 Solomon (disorder) (disorder) Active Problem 07/27/2021 Medical Group,[facility] [place] her Neuro, OPID [place], [facility] Disorder Disorder Problem Active 2021-07-27 Memoria of carotid of carotid 01:20:12 l artery artery [place] (disorder) (disorder) Active Problem 07/27/2021 Medical Group,[facility] [place] her Neuro, OPID [place], [facility] Hypertensi Hypertens Problem Active 2021-07-27 Memoria ve gissel 01:20:12 l disorder, disorder, Herm mary systemic systemic arterial arterial (disorder) (disorder) Active Problem 07/27/2021 Medical Group,[facility] [place] her Neuro, OPID [place], [place] [facility] Hyperlipid Hyperlipi Problem Active 2021-07-27 Memoria emia demia 01:20:12 l (disorder) (disorder) He rmann Active Problem 07/27/2021 Medical Group,[facility] [place] her Neuro, OPID [place], [place] [facility] Hypothyroi Hypothyro Problem Active 2021-07-27 Memoria dism idism 01:20:12 l (disorder) (disorder) He rmann Active Problem 07/27/2021 Medical Group,[facility] [place] her Neuro,[facility] CHARLEEN Carrasco,[facility], [place] [facility] Simple Simple Problem Active 2021-07-27 Brennen oscar obesity obesity 01:20:12 l (disorder) (disorder) He rmann Active Problem 07/27/2021 Medical Group,[facility] [place] her Neuro, CHARLEEN Carrasco,[facility], [place] [facility] OCCLUSION Diagnosis Active 2019-11-24 Memoria AND OCCLUSION 21:49:00 l STENOSIS AND [place] OF LEFT STENOSIS CAROTID A OF LEFT CAROTID A Active [facility] Allergies, Adverse Reactions, Alerts Allergy Allergy Status Severity Reaction(s) Onset Inactive Treating Comm ents Source Name Type Date Date Clinician NO KNOWN Drug Active Univers ALLERGIE Class ity of S [facility] Family History Family Member Diagnosis Comments Start Date Stop Date Source [facility] mother [facility] Social History Social Habit Start Date Stop Date Quantity Comments Source History of tobacco Cigarette Smoker [facility] Exposure to 2022-10-07 2022-10-17 Not sure University of SARS-CoV-2 (event) 00:00:00 09:16:00 [facility] Tobacco use and 2022-05-02 2022-05-02 Smokeless Universit y of exposure 00:00:00 00:00:00 tobacco non-user Formerly [facility] Social History 2019-11-14 2019-11-[address] [facility] ermann 21:12:20 21:12:20 Alcohol intake 2018-07-19 2018-07-19 Current Religious 00:00:00 00:00:00 non-drinker of Hospital alcohol (finding) Cigarettes smoked 2018-07-15 2018-07-[address] current (pack per 00:00[facility]00 [facility] - Reported Sex Assigned At [birth year] [facility] 00:00:00 00:00:00 Hospital Smoking Status Start Date Stop Date Source Never smoked tobacco [facility] Ex-smoker 2018-07-15 00:00:00 2018-07-15 00:00:00 [facility] Medications Ordered Filled Start Stop Current Ordering Indication Dosage Frequency Signature Comments Components Source Medication Medication Date Date Medication? Clinician (SIG) Name Name iopamidol 2022- No [id number] 99mL 99 mL, Univers (ISOVUE 10-21 Intravenou ity o f 370-500 mL) 15:44: 15:44 s, ONCE, 1 [place] injection 00 :00 dose, On Medica l 99 mL Tue Branch 10/21/22 at 0945, Routine NaCl 0.9% 2022- No 1000mL at 999 Uni vers (NS) bolus 09-14 mL/hr, ity of infusion 19:15: 21:58 1,000 mL, Claudio as 1,000 mL 00 :00 IV Medical Infusion, Branch ONCE, 1 dose, On 09/14/22 at 1315, CHEPE iopamidol 2022- No [id number] 81mL 81 mL, U nivers (ISOVUE 09-14 [...] 38 (three) Medica l times Branch daily. methylnaltr 0 Yes 150mg Take 150 U nivers exone 1-08 mg by ity of (RELISTOR) 16:00: [place] 150 mg Tab 38 (three) Medica l times Branch daily. busPIRone 2021-09 Yes 10mg Take 10 mg Un donaldo 10 mg 2-27 by mouth ity of tablet 00:00: in the morning. Medical Branch busPIRone 2021-09 Yes 10mg Take 10 mg Un donaldo 10 mg 2-27 by mouth ity of tablet 00:00: in the morning. Medical Branch barium 2021-09- No [id number] 355mL 355 mL, Un donaldo sulfate 0-26 10-26 Oral, ity of (LIQUID E-Z 16:15: 15:00 [place]CE[place] 1 [place] PA[place] 60 % 00 :00 dose, On Medi cipriano (w/v) oral Wed Branch suspension 07/02/22 355 mL at 1115, Routine diazePAM 2021-09 Yes [id number] 2mg Take 1 Uni vers (VALIUM) 2 0-23 tablet by ity of mg tablet 00:00: mouth 3 (three) Medical times Branch daily as needed for Muscle Spasms. diazePAM 2021-09 Yes [id number] 2mg Take 1 Uni vers (VALIUM) 2 0-23 tablet by ity of mg tablet 00:00: mouth (three) Medical times Branch daily as needed for Muscle Spasms. diazePAM 2021-09 Yes [id number] 2mg Take 1 Uni vers (VALIUM) 2 0-23 tablet by ity of mg tablet 00:00: mouth 3 (three) Medical times Branch daily as needed for Muscle Spasms. diazePAM 2021-09 Yes [id number] 2mg Take 1 Uni vers (VALIUM) 2 0-23 tablet by ity of mg tablet 00:00: mouth 3 (three) Medical times Branch daily as needed for Muscle Spasms. diazePAM 2021-09 Yes [id number] 2mg Take 1 Uni vers (VALIUM) 2 0-23 tablet by ity of mg tablet 00:00: mouth 3 [place] 00 (three) Medical times Branch daily as needed for Muscle Spasms. methylPREDN 2022-0 Yes [id number] 84mg Take 21 Univers ISolone 8-26 [id number] tablets by ity of (MEDROL, 00:00: mouth [place] ARLENE,) 4 mg 00 SEE-INSTRU Med ical tablets CTIONS. Branch follow package directions cyclobenzap 2021-0 Yes [id number] 10mg Take 1 Univers rine 10 mg 8-26 [id number] tablet by it y of tablet 00:00: mouth in [place] the Medical morning Branch and 1 tablet at noon and 1 tablet in the evening. methylPREDN 2022-0 Yes [id number] 84mg Take 21 Univers ISolone 8-26 [id number] tablets by ity of (MEDROL, 00:00: mouth [place] ARLENE,) 4 mg 00 SEE-INSTRU Med ical tablets CTIONS. Branch follow package directions cyclobenzap 2021-0 Yes [id number] 10mg Take 1 Univers rine 10 mg 8-26 [id number] tablet by it y of tablet 00:00: mouth in [place] the Medical morning Branch and 1 tablet at noon and 1 tablet in the evening. methylPREDN 2-0 Yes [id number] 84mg Take 21 Univers ISolone 8-26 [id number] tablets by ity of (MEDROL, 00:00: mouth [place] ARLENE,) 4 mg 00 SEE-INSTRU Med ical tablets CTIONS. Branch follow package directions cyclobenzap 2021-0 Yes [id number] 10mg Take 1 Univers rine 10 mg 8-26 [id number] tablet by it y of tablet 00:00: mouth in [place] the Medical morning Branch and 1 tablet at noon and 1 tablet in the evening. methylPREDN 2022-0 Yes [id number] 84mg Take 21 Univers ISolone 8-26 [id number] tablets by ity of (MEDROL, 00:00: mouth [place] ARLENE,) 4 mg 00 SEE-INSTRU Med ical tablets CTIONS. Branch follow package directions cyclobenzap 2021-0 Yes [id number] 10mg Take 1 Univers rine 10 mg 8-26 [id number] tablet by it y of tablet 00:00: mouth in [place] the Medical morning Branch and 1 tablet at noon and 1 tablet in the evening. methylPREDN 2022-0 Yes [id number] 84mg Take 21 Univers ISolone 8-26 [id number] tablets by ity of (MEDROL, 00:00: mouth [place] ARLENE,) 4 mg 00 SEE-INSTRU Med ical tablets CTIONS. Branch follow package directions cyclobenzap 2021-0 Yes [id number] 10mg Take 1 Univers rine 10 mg 8-26 [id number] tablet by it y of tablet 00:00: mouth in [place] 00 the Medical morning Branch and 1 tablet at noon and 1 tablet in the evening. methylPREDN 2021-0 Yes [id number] 84mg Take 21 Univers ISolone 8-26 [id number] tablets by ity of (MEDROL, 00:00: mouth [place] ARLENE,) 4 mg 00 SEE-INSTRU Med ical tablets CTIONS. Branch follow package directions cyclobenzap 2021-0 Yes [id number] 10mg Take 1 Univers rine 10 mg 8-26 [id number] tablet by it y of tablet 00:00: mouth in [place] 00 the Medical morning Branch and 1 tablet at noon and 1 tablet in the evening. methylPREDN 2021-0 Yes [id number] 84mg Take 21 Univers ISolone 8-26 [id number] tablets by ity of (MEDROL, 00:00: mouth [place] ARELNE,) 4 mg 00 SEE-INSTRU Med ical tablets CTIONS. Branch follow package directions cyclobenzap 2021-0 Yes [id number] 10mg Take 1 Univers rine 10 mg 8-26 [id number] tablet by it y of tablet 00:00: mouth in [place] 00 the Medical morning Branch and 1 tablet at noon and 1 tablet in the evening. ondansetron 2-0 Yes [id number] 4mg Take 1 Univers 4 mg 6-04 tablet by ity of disintegrat 00:00: mouth [place] ing tablet 00 every 12 Medic al (twelve) Branch hours as needed for Nausea and Vomiting (N/V). ondansetron 2022-0 Yes [id number] 4mg Take 1 Univers 4 mg 6-04 tablet by ity of disintegrat 00:00: mouth [place] ing tablet 00 every 12 Medic al (twelve) Branch hours as needed for Nausea and Vomiting (N/V). ondansetron 2022-0 Yes [id number] 4mg Take 1 Univers 4 mg 6-04 tablet by ity of disintegrat 00:00: mouth [place] ing tablet 00 every 12 Medic al (twelve) Branch hours as needed for Nausea and Vomiting (N/V). ondansetron 2022-0 Yes [id number] 4mg Take 1 Univers 4 mg 6-04 tablet by ity of disintegrat 00:00: mouth [place] ing tablet 00 every 12 Medic al (twelve) Branch hours as needed for Nausea and Vomiting (N/V). ondansetron 2022-0 Yes [id number] 4mg Take 1 Univers 4 mg 6-04 tablet by ity of disintegrat 00:00: mouth [place] ing tablet 00 every 12 Medic al (twelve) Branch hours as needed for Nausea and Vomiting (N/V). ondansetron 2022-0 Yes [id number] 4mg Take 1 Univers 4 mg 6-04 tablet by ity of disintegrat 00:00: mouth [place] ing tablet 00 every 12 Medic al (twelve) Branch hours as needed for Nausea and Vomiting (N/V). ondansetron 2022-0 Yes [id number] 4mg Take 1 Univers 4 mg 6-04 tablet by ity of disintegrat 00:00: mouth [place] ing tablet 00 every 12 Medic al (twelve) Branch hours as needed for Nausea and Vomiting (N/V). ondansetron 2022-0 Yes [id number] 4mg Take 1 Univers 4 mg 6-04 tablet by ity of disintegrat 00:00: mouth [place] ing tablet 00 every 12 Medic al (twelve) Branch hours as needed for Nausea and Vomiting (N/V). dicyclomine 2022-0 Yes [id number] 20mg Take 1 Univers 20 mg 3-29 tablet by ity of tablet 00:00: mouth 4 [place] 00 (four) Medical times Branch daily. ondansetron 2022-0 Yes [id number] 4mg Take 1 Univers 4 mg 3-29 tablet by ity of disintegrat 00:00: mouth [place] ing tablet 00 every 4 Medica l (four) Branch hours as needed for Nausea and Vomiting (N/V). dicyclomine 2022-0 Yes [id number] 20mg Take 1 Univers 20 mg 3-29 tablet by ity of tablet 00:00: mouth 4 [place] 00 (four) Medical times Branch daily. ondansetron 2022-0 Yes [id number] 4mg Take 1 Univers 4 mg 3-29 tablet by ity of disintegrat 00:00: mouth [place] ing tablet 00 every 4 Medica l (four) Branch hours as needed for Nausea and Vomiting (N/V). dicyclomine 2022-0 Yes [id number] 20mg Take 1 Univers 20 mg 3-29 tablet by ity of tablet 00:00: mouth 4 [place] 00 (four) Medical times Branch daily. ondansetron 2022-0 Yes [id number] 4mg Take 1 Univers 4 mg 3-29 tablet by ity of disintegrat 00:00: mouth [place] ing tablet 00 every 4 Medica l (four) Branch hours as needed for Nausea and Vomiting (N/V). dicyclomine 2022-0 Yes [id number] 20mg Take 1 Univers 20 mg 3-29 tablet by ity of tablet 00:00: mouth 4 [place] 00 (four) Medical times Branch daily. ondansetron 2022-0 Yes [id number] 4mg Take 1 Univers 4 mg 3-29 tablet by ity of disintegrat 00:00: mouth [place] ing tablet 00 every 4 Medica l (four) Branch hours as needed for Nausea and Vomiting (N/V). dicyclomine 2022-0 Yes [id number] 20mg Take 1 Univers 20 mg 3-29 tablet by ity of tablet 00:00: mouth 4 (four) Medical times Branch daily. ondansetron 2022-0 Yes [id number] 4mg Take 1 Univers 4 mg 3-29 tablet by ity of disintegrat 00:00: mouth [place] ing tablet 00 every 4 Medica l (four) Branch hours as needed for Nausea and Vomiting (N/V). dicyclomine 2022-0 Yes [id number] 20mg Take 1 Univers 20 mg 3-29 tablet by ity of tablet 00:00: mouth 4 [place] 00 (four) Medical times Branch daily. ondansetron 2022-0 Yes [id number] 4mg Take 1 Univers 4 mg 3-29 tablet by ity of disintegrat 00:00: mouth [place] ing tablet 00 every 4 Medica l (four) Branch hours as needed for Nausea and Vomiting (N/V). dicyclomine 2022-0 Yes [id number] 20mg Take 1 Univers 20 mg 3-29 tablet by ity of tablet 00:00: mouth 4 [place] (four) Medical times Branch daily. ondansetron 2022-0 Yes [id number] 4mg Take 1 Univers 4 mg 3-29 tablet by ity of disintegrat 00:00: mouth [place] ing tablet 00 every 4 Medica l (four) Branch hours as needed for Nausea and Vomiting (N/V). dicyclomine Yes [id number] 20mg Take 1 Univers 20 mg 3-29 tablet by ity of tablet 00:00: mouth 4 [place] 00 (four) Medical times Branch daily. ondansetron 0 Yes [id number] 4mg Take 1 Univers 4 mg 3-29 tablet by ity of disintegrat 00:00: mouth [place] ing tablet 00 every 4 Medica l (four) Branch hours as needed for Nausea and Vomiting (N/V). AMITRIPTYLI Yes 1 tab Unive rs NE 50 MG 3-14 every AM ity of ORAL TAB 11:59: [address] simvastatin Yes 40mg Take 40 mg Univers (ZOCOR) 40 3-14 by mouth ity o f mg tablet 11:59: at [place] [address] bedtime. Medical Branch levothyroxi Yes 50ug Take 50 Uni vers ne 3-14 mcg by ity of (SYNTHROID) 11:59: mouth [place] 50 mcg 28 every Medical tablet morning. Branch ALBUTEROL Yes 1{puff} Inhale 1 U nivers SULFATE HFA 3-14 Puff as ity o f INHALE 11:59: needed. [address] HYDROcodone Yes 1{tbl} Take 1 Un donaldo -acetaminop 3-14 tablet by ity of hen 10-325 11:59: mouth 3 [place] mg tablet 28 (three) Medical times Branch daily as needed. MAGNESIUM Yes 1{tbl} Take 1 Univ ers ORAL 3-14 tablet by ity of 11:59: mouth. [address] aspirin 81 0 Yes 81mg Take 81 mg U nivers mg EC 3-14 by mouth. ity of tablet 11:59: [address] estradioL Yes .5mg Take 0.5 Univ ers 0.5 mg 3-14 mg by ity of tablet 11:59: mouth. [address] esomeprazol Yes 40mg Take 40 mg Univers e 40 mg 3-14 by mouth. ity of capsule 11:59: [address] gabapentin Yes 600mg Take 600 Un donaldo ER 600 mg 3-14 mg by ity of tablet, 11:59: mouth. [place] [address] Medical release 24 Branch hr insulin Yes 85U inject 85 Unive rs degludec 3-14 Units ity of 100 unit/mL 11:59: under the [place] ([facility] semaglutide Yes Take by Uni vers (RYBELSUS) 3-14 mouth. ity of 7 mg Tab 11:59: [address] trazodone Yes Take by Unive rs HCl 3-14 mouth. ity of (TRAZODONE 11:59: [place] ORAL) [address] [place] [address] Branch FAMOTIDINE Yes Take by Univ ers ORAL 3-14 mouth. ity of 11:59: [address] linaclotide Yes Take by Uni vers (LINZESS 3-14 mouth. ity of ORAL) 11:59: [address] Branch AMITRIPTYLI Yes 1 tab Unive rs NE 50 MG 3-14 every AM ity of ORAL TAB 11:59: [address] simvastatin Yes 40mg Take 40 mg Univers (ZOCOR) 40 3-14 by mouth ity o f mg tablet 11:59: at [place] [address] bedtime. Medical Branch levothyroxi Yes 50ug Take 50 Uni vers ne 3-14 mcg by ity of (SYNTHROID) 11:59: mouth [place] 50 mcg 28 every Medical tablet morning. Branch ALBUTEROL Yes 1{puff} Inhale 1 U nivers SULFATE HFA 3-14 Puff as ity o f INHALE 11:59: needed. [address] Branch HYDROcodone Yes 1{tbl} Take 1 Un donaldo -acetaminop 3-14 tablet by ity of hen 10-325 11:59: mouth 3 [place] mg tablet 28 (three) Medical times Branch daily as needed. MAGNESIUM Yes 1{tbl} Take 1 Univ ers ORAL 3-14 tablet by ity of 11:59: mouth. [address] aspirin 81 Yes 81mg Take 81 mg U nivers mg EC 3-14 by mouth. ity of tablet 11:59: [address] estradioL Yes .5mg Take 0.5 Univ ers 0.5 mg 3-14 mg by ity of tablet 11:59: mouth. [address] esomeprazol Yes 40mg Take 40 mg Univers e 40 mg 3-14 by mouth. ity of capsule 11:59: [address] gabapentin Yes 600mg Take 600 Un donaldo ER 600 mg 3-14 mg by ity of tablet, 11:59: mouth. [place] [address] Medical release 24 [place] hr insulin Yes 85U inject 85 Unive rs degludec 3-14 Units ity of 100 unit/mL 11:59: under the [place] (3 mL) [facility] semaglutide Yes Take by Uni vers (RYBELSUS) 3-14 mouth. ity of 7 mg Tab 11:59: [address] trazodone Yes Take by Unive rs HCl 3-14 mouth. ity of (TRAZODONE 11:59: [place] ORAL) [address] [place] [address] FAMOTIDINE Yes Take by Univ ers ORAL 3-14 mouth. ity of 11:59: [address] linaclotide Yes Take by Uni vers (LINZESS 3-14 mouth. ity of ORAL) 11:59: [address] AMITRIPTYLI Yes 1 tab Unive rs NE 50 MG 3-14 every AM ity of ORAL TAB 11:59: [address] simvastatin Yes 40mg Take 40 mg Univers (ZOCOR) 40 3-14 by mouth ity o f mg tablet 11:59: at [place] [address] bedtime. Medical Branch levothyroxi Yes 50ug Take 50 Uni vers ne 3-14 mcg by ity of (SYNTHROID) 11:59: mouth [place] 50 mcg 28 every Medical tablet morning. Branch ALBUTEROL Yes 1{puff} Inhale 1 U nivers SULFATE HFA 3-14 Puff as ity o f INHALE 11:59: needed. [address] HYDROcodone Yes 1{tbl} Take 1 Un donaldo -acetaminop 3-14 tablet by ity of hen 10-325 11:59: mouth 3 [place] mg tablet (three) Medical times [place] daily as needed. MAGNESIUM Yes 1{tbl} Take 1 Univ ers ORAL 3-14 tablet by ity of 11:59: mouth. [address] aspirin 81 Yes 81mg Take 81 mg U nivers mg EC 3-14 by mouth. ity of tablet 11:59: [address] estradioL Yes .5mg Take 0.5 Univ ers 0.5 mg 3-14 mg by ity of tablet 11:59: mouth. [address] esomeprazol Yes 40mg Take 40 mg Univers e 40 mg 3-14 by mouth. ity of capsule 11:59: [address] gabapentin Yes 600mg Take 600 Un donaldo ER 600 mg 3-14 mg by ity of tablet, 11:59: mouth. [place] [address] Medical release 24 Branch hr insulin Yes 85U inject 85 Unive rs degludec 3-14 Units ity of 100 unit/mL 11:59: under the [place] (3 mL) [facility] semaglutide Yes Take by Uni vers (RYBELSUS) 3-14 mouth. ity of 7 mg Tab 11:59: [address] trazodone Yes Take by Unive rs HCl 3-14 mouth. ity of (TRAZODONE 11:59: [place] ORAL) [address] [place] [address] FAMOTIDINE Yes Take by Univ ers ORAL 3-14 mouth. ity of 11:59: [address] linaclotide Yes Take by Uni vers (LINZESS 3-14 mouth. ity of ORAL) 11:59: [address] AMITRIPTYLI Yes 1 tab Unive rs NE 50 MG 3-14 every AM ity of ORAL TAB 11:59: [address] simvastatin Yes 40mg Take 40 mg Univers (ZOCOR) 40 3-14 by mouth ity o f mg tablet 11:59: at [place] [address] bedtime. Medical Branch levothyroxi Yes 50ug Take 50 Uni vers ne 3-14 mcg by ity of (SYNTHROID) 11:59: mouth [place] 50 mcg 28 every Medical tablet morning. Branch ALBUTEROL Yes 1{puff} Inhale 1 U nivers SULFATE HFA 3-14 Puff as ity o f INHALE 11:59: needed. [address] Branch HYDROcodone Yes 1{tbl} Take 1 Un donaldo -acetaminop 3-14 tablet by ity of hen 10-325 11:59: mouth 3 [place] mg tablet 28 (three) Medical times Branch daily as needed. MAGNESIUM Yes 1{tbl} Take 1 Univ ers ORAL 3-14 tablet by ity of 11:59: mouth. [address] aspirin 81 Yes 81mg Take 81 mg U nivers mg EC 3-14 by mouth. ity of tablet 11:59: [address] estradioL Yes .5mg Take 0.5 Univ ers 0.5 mg 3-14 mg by ity of tablet 11:59: mouth. [address] esomeprazol Yes 40mg Take 40 mg Univers e 40 mg 3-14 by mouth. ity of capsule 11:59: [address] gabapentin Yes 600mg Take 600 Un donaldo ER 600 mg 3-14 mg by ity of tablet, 11:59: mouth. [place] [address] Medical release 24 Branch hr insulin Yes 85U inject 85 Unive rs degludec 3-14 Units ity of 100 unit/mL 11:59: under the [place] (3 mL) [facility] semaglutide Yes Take by Uni vers (RYBELSUS) 3-14 mouth. ity of 7 mg Tab 11:59: [address] trazodone Yes Take by Unive rs HCl 3-14 mouth. ity of (TRAZODONE 11:59: [place] ORAL) Medical Branch FAMOTIDINE Yes Take by Univ ers ORAL 3-14 mouth. ity of 11:59: [address] Branch linaclotide 2022-0 Yes Take by Uni vers (LINZESS 3-14 mouth. ity of ORAL) 11:59: [address] AMITRIPTYLI Yes 1 tab Unive rs NE 50 MG 3-14 every AM ity of ORAL TAB 11:59: [address] simvastatin Yes 40mg Take 40 mg Univers (ZOCOR) 40 3-14 by mouth ity o f mg tablet 11:59: at [place] [address] bedtime. Medical Branch levothyroxi Yes 50ug Take 50 Uni vers ne 3-14 mcg by ity of (SYNTHROID) 11:59: mouth [place] 50 mcg 28 every Medical tablet morning. Branch ALBUTEROL Yes 1{puff} Inhale 1 U nivers SULFATE HFA 3-14 Puff as ity o f INHALE 11:59: needed. [address] HYDROcodone Yes 1{tbl} Take 1 Un donaldo -acetaminop 3-14 tablet by ity of hen 10-325 11:59: mouth 3 [place] mg tablet 28 (three) Medical times Branch daily as needed. MAGNESIUM Yes 1{tbl} Take 1 Univ ers ORAL 3-14 tablet by ity of 11:59: mouth. [address] aspirin 81 Yes 81mg Take 81 mg U nivers mg EC 3-14 by mouth. ity of tablet 11:59: [address] estradioL Yes .5mg Take 0.5 Univ ers 0.5 mg 3-14 mg by ity of tablet 11:59: mouth. [address] esomeprazol Yes 40mg Take 40 mg Univers e 40 mg 3-14 by mouth. ity of capsule 11:59: [address] gabapentin Yes 600mg Take 600 Un donaldo ER 600 mg 3-14 mg by ity of tablet, 11:59: mouth. [place] [address] Medical release 24 Branch hr insulin Yes 85U inject 85 Unive rs degludec 3-14 Units ity of 100 unit/mL 11:59: under the [place] (3 mL) [facility] Branch semaglutide Yes Take by Uni vers (RYBELSUS) 3-14 mouth. ity of 7 mg Tab 11:59: [address] trazodone Yes Take by Unive rs HCl 3-14 mouth. ity of (TRAZODONE 11:59: [place] ORAL) [address] [place] [address] FAMOTIDINE Yes Take by Univ ers ORAL 3-14 mouth. ity of 11:59: [address] linaclotide Yes Take by Uni vers (LINZESS 3-14 mouth. ity of ORAL) 11:59: [address] AMITRIPTYLI Yes 1 tab Unive rs NE 50 MG 3-14 every AM ity of ORAL TAB 11:59: [address] simvastatin Yes 40mg Take 40 mg Univers (ZOCOR) 40 3-14 by mouth ity o f mg tablet 11:59: at [place] [address] bedtime. Medical Branch levothyroxi Yes 50ug Take 50 Uni vers ne 3-14 mcg by ity of (SYNTHROID) 11:59: mouth [place] 50 mcg 28 every Medical tablet morning. Branch ALBUTEROL Yes 1{puff} Inhale 1 U nivers SULFATE HFA 3-14 Puff as ity o f INHALE 11:59: needed. [address] HYDROcodone Yes 1{tbl} Take 1 Un donaldo -acetaminop 3-14 tablet by ity of hen 10-325 11:59: mouth 3 [place] mg tablet 28 (three) Medical times [place] daily as needed. MAGNESIUM Yes 1{tbl} Take 1 Univ ers ORAL 3-14 tablet by ity of 11:59: mouth. [address] aspirin 81 0 Yes 81mg Take 81 mg U nivers mg EC 3-14 by mouth. ity of tablet 11:59: [address] estradioL Yes .5mg Take 0.5 Univ ers 0.5 mg 3-14 mg by ity of tablet 11:59: mouth. [address] esomeprazol Yes 40mg Take 40 mg Univers e 40 mg 3-14 by mouth. ity of capsule 11:59: [address] gabapentin Yes 600mg Take 600 Un donaldo ER 600 mg 3-14 mg by ity of tablet, 11:59: mouth. [place] [address] Medical release 24 Branch hr insulin Yes 85U inject 85 Unive rs degludec 3-14 Units ity of 100 unit/mL 11:59: under the [place] (3 mL) [facility] Branch semaglutide Yes Take by Uni vers (RYBELSUS) 3-14 mouth. ity of 7 mg Tab 11:59: [place] [address] Medical Branch trazodone Yes Take by Unive rs HCl 3-14 mouth. ity of (TRAZODONE 11:59: [place] ORAL) Medical Branch FAMOTIDINE Yes Take by Univ ers ORAL 3-14 mouth. ity of 11:59: [address] Branch linaclotide Yes Take by Uni vers (LINZESS 3-14 mouth. ity of ORAL) 11:59: [address] Branch AMITRIPTYLI Yes 1 tab Unive rs NE 50 MG 3-14 every AM ity of ORAL TAB 11:59: [address] Branch simvastatin Yes 40mg Take 40 mg Univers (ZOCOR) 40 3-14 by mouth ity o f mg tablet 11:59: at [place] [address] bedtime. Medical Branch levothyroxi Yes 50ug Take 50 Uni vers ne 3-14 mcg by ity of (SYNTHROID) 11:59: mouth [place] 50 mcg 28 every Medical tablet morning. Branch ALBUTEROL Yes 1{puff} Inhale 1 U nivers SULFATE HFA 3-14 Puff as ity o f INHALE 11:59: needed. [address] Branch HYDROcodone Yes 1{tbl} Take 1 Un donaldo -acetaminop 3-14 tablet by ity of hen 10-325 11:59: mouth 3 [place] mg tablet 28 (three) Medical times Branch daily as needed. MAGNESIUM Yes 1{tbl} Take 1 Univ ers ORAL 3-14 tablet by ity of 11:59: mouth. [address] Branch aspirin 81 Yes 81mg Take 81 mg U nivers mg EC 3-14 by mouth. ity of tablet 11:59: [address] estradioL Yes .5mg Take 0.5 Univ ers 0.5 mg 3-14 mg by ity of tablet 11:59: mouth. [address] Branch esomeprazol Yes 40mg Take 40 mg Univers e 40 mg 3-14 by mouth. ity of capsule 11:59: [address] gabapentin Yes 600mg Take 600 Un donaldo ER 600 mg 3-14 mg by ity of tablet, 11:59: mouth. [place] [address] Medical release 24 Branch hr insulin Yes 85U inject 85 Unive rs degludec 3-14 Units ity of 100 unit/mL 11:59: under the [place] (3 mL) [facility] Branch semaglutide Yes Take by Uni vers (RYBELSUS) 3-14 mouth. ity of 7 mg Tab 11:59: [address] trazodone Yes Take by Unive rs HCl 3-14 mouth. ity of (TRAZODONE 11:59: [place] ORAL) [address] [place] [address] FAMOTIDINE Yes Take by Univ ers ORAL 3-14 mouth. ity of 11:59: [address] Branch linaclotide Yes Take by Uni vers (LINZESS 3-14 mouth. ity of ORAL) 11:59: [address] AMITRIPTYLI Yes 1 tab Unive rs NE 50 MG 3-14 every AM ity of ORAL TAB 11:59: [address] simvastatin Yes 40mg Take 40 mg Univers (ZOCOR) 40 3-14 by mouth ity o f mg tablet 11:59: at [place] [address] bedtime. Medical Branch levothyroxi Yes 50ug Take 50 Uni vers ne 3-14 mcg by ity of (SYNTHROID) 11:59: mouth [place] 50 mcg 28 every Medical tablet morning. Branch ALBUTEROL Yes 1{puff} Inhale 1 U nivers SULFATE HFA 3-14 Puff as ity o f INHALE 11:59: needed. [address] HYDROcodone Yes 1{tbl} Take 1 Un donaldo -acetaminop 3-14 tablet by ity of hen 10-325 11:59: mouth 3 [place] mg tablet 28 (three) Medical times Branch daily as needed. MAGNESIUM Yes 1{tbl} Take 1 Univ ers ORAL 3-14 tablet by ity of 11:59: mouth. [address] aspirin 81 Yes 81mg Take 81 mg U nivers mg EC 3-14 by mouth. ity of tablet 11:59: [address] estradioL Yes .5mg Take 0.5 Univ ers 0.5 mg 3-14 mg by ity of tablet 11:59: mouth. [address] esomeprazol Yes 40mg Take 40 mg Univers e 40 mg 3-14 by mouth. ity of capsule 11:59: [address] gabapentin Yes 600mg Take 600 Un donaldo ER 600 mg 3-14 mg by ity of tablet, 11:59: mouth. [place] [address] Medical release 24 Branch hr insulin Yes 85U inject 85 Unive rs degludec 3-14 Units ity of 100 unit/mL 11:59: under the [place] (3 mL) [facility] Branch semaglutide Yes Take by Uni vers (RYBELSUS) 3-14 mouth. ity of 7 mg Tab 11:59: [address] trazodone Yes Take by Unive rs HCl 3-14 mouth. ity of (TRAZODONE 11:59: [facility]) [address] [place] [address] FAMOTIDINE Yes Take by Univ ers ORAL 3-14 mouth. ity of 11:59: [address] linaclotide Yes Take by Uni vers (LINZESS 3-14 mouth. ity of ORAL) 11:59: [address] predniSONE 2020-09 Yes [id number] 60mg Take 3 U nivers 20 mg 2-31 tablets by ity of tablet 00:00: mouth [place] 00 every Medical morning. Branch benzonatate 2020-09 Yes [id number] 100mg Take 1 Univers 100 mg 2-31 capsule by ity of capsule 00:00: mouth 3 [place] 00 (three) Medical times [place] daily as needed for Cough. predniSONE 2020-09 Yes [id number] 60mg Take 3 U nivers 20 mg 2-31 tablets by ity of tablet 00:00: mouth [place] 00 every Medical morning. Branch benzonatate 2020-09 Yes [id number] 100mg Take 1 Univers 100 mg 2-31 capsule by ity of capsule 00:00: mouth 3 [place] 00 (three) Medical times Branch daily as needed for Cough. predniSONE 2020-09 Yes [id number] 60mg Take 3 U nivers 20 mg 2-31 tablets by ity of tablet 00:00: mouth [place] 00 every Medical morning. Branch benzonatate 2020-09 Yes [id number] 100mg Take 1 Univers 100 mg 2-31 capsule by ity of capsule 00:00: mouth 3 [place] 00 (three) Medical times Branch daily as needed for Cough. predniSONE 2020-09 Yes [id number] 60mg Take 3 U nivers 20 mg 2-31 tablets by ity of tablet 00:00: mouth [place] 00 every Medical morning. Branch benzonatate 2020-09 Yes [id number] 100mg Take 1 Univers 100 mg 2-31 capsule by ity of capsule 00:00: mouth 3 [place] 00 (three) Medical times Branch daily as needed for Cough. predniSONE 2020-09 Yes [id number] 60mg Take 3 U nivers 20 mg 2-31 tablets by ity of tablet 00:00: mouth [place] 00 every Medical morning. Branch benzonatate 2020-09 Yes [id number] 100mg Take 1 Univers 100 mg 2-31 capsule by ity of capsule 00:00: mouth 3 [place] 00 (three) Medical times Branch daily as needed for Cough. predniSONE 2020-09 Yes [id number] 60mg Take 3 U nivers 20 mg 2-31 tablets by ity of tablet 00:00: mouth [place] 00 every Medical morning. Branch benzonatate 2020-09 Yes [id number] 100mg Take 1 Univers 100 mg 2-31 capsule by ity of capsule 00:00: mouth 3 [place] 00 (three) Medical times Branch daily as needed for Cough. predniSONE 2020-09 Yes [id number] 60mg Take 3 U nivers 20 mg 2-31 tablets by ity of tablet 00:00: mouth [place] 00 every Medical morning. Branch benzonatate 2020-09 Yes [id number] 100mg Take 1 Univers 100 mg 2-31 capsule by ity of capsule 00:00: mouth 3 [place] 00 (three) Medical times Branch daily as needed for Cough. predniSONE 2020-09 Yes [id number] 60mg Take 3 U nivers 20 mg 2-31 tablets by ity of tablet 00:00: mouth [place] 00 every Medical morning. [place] benzonatate 2020-09 Yes [id number] 100mg Take 1 Univers 100 mg 2-31 capsule by ity of capsule 00:00: mouth 3 [place] 00 (three) Medical times [place] daily as needed for Cough. 2020-09 Yes [...] MORNING FOR 90 DAYS methocarbam 2020-09 Yes [id number] 500mg Take 1 Univers oL 500 mg 2-01 tablet by ity o f tablet 00:00: mouth 4 (four) Medical times Branch daily as needed for Pain (scale 4-6). methocarbam 2020-09 Yes [id number] 500mg Take 1 Univers oL 500 mg 2-01 tablet by ity o f tablet 00:00: mouth 4 (four) Medical times Branch daily as needed for Pain (scale 4-6). methocarbam 2020-09 Yes [id number] 500mg Take 1 Univers oL 500 mg 2-01 tablet by ity o f tablet 00:00: mouth 4 (four) Medical times Branch daily as needed for Pain (scale 4-6). methocarbam 2020-09 Yes [id number] 500mg Take 1 Univers oL 500 mg 2-01 tablet by ity o f tablet 00:00: mouth (four) Medical times Branch daily as needed for Pain (scale 4-6). methocarbam 2020-09 Yes [id number] 500mg Take 1 Univers oL 500 mg 2-01 tablet by ity o f tablet 00:00: mouth 4 (four) Medical times Branch daily as needed for Pain (scale 4-6). methocarbam 2020-09 Yes [id number] 500mg Take 1 Univers oL 500 mg 2-01 tablet by ity o f tablet 00:00: mouth (four) Medical times Branch daily as needed for Pain (scale 4-6). methocarbam 2020-09 Yes [id number] 500mg Take 1 Univers oL 500 mg 2-01 tablet by ity o f tablet 00:00: mouth (four) Medical times Branch daily as needed for Pain (scale 4-6). methocarbam 2020-09 Yes [id number] 500mg Take 1 Univers oL 500 mg 2-01 tablet by ity o f tablet 00:00: mouth 4 (four) Medical times Branch daily as needed for Pain (scale 4-6). RYBELSUS 14 2020-09 Yes TAKE ONE Un donaldo mg Tab 1-24 TABLET BY ity of 00:00: MOUTH ONCE [place] 00 A DAY AT Medical LEAST 30 Branch MINUTES BEFORE FIRST FOOD, BEVERAGE, OR OTHER MEDICINE OF THE DAY [facility] Yes TAKE ONE Un donaldo mg Tab 1-24 TABLET BY ity of 00:00: MOUTH ONCE [place] 00 A DAY AT Medical LEAST 30 Branch MINUTES BEFORE FIRST FOOD, BEVERAGE, OR OTHER MEDICINE OF THE DAY [facility] 14 2020-09 Yes TAKE ONE Un donaldo mg Tab 1-24 TABLET BY ity of 00:00: MOUTH ONCE [place] 00 A DAY AT Medical LEAST 30 Branch MINUTES BEFORE FIRST FOOD, BEVERAGE, OR OTHER MEDICINE OF THE DAY [facility] 2020-09 Yes TAKE ONE Un donaldo mg Tab 1-24 TABLET BY ity of 00:00: MOUTH ONCE [place] 00 A DAY AT Medical LEAST 30 Branch MINUTES BEFORE FIRST FOOD, BEVERAGE, OR OTHER MEDICINE OF THE DAY [facility] 2020-09 Yes TAKE ONE Un donaldo mg Tab 1-24 TABLET BY ity of 00:00: MOUTH ONCE [place] 00 A DAY AT Medical LEAST 30 Branch MINUTES BEFORE FIRST FOOD, BEVERAGE, OR OTHER MEDICINE OF THE DAY [facility] 2020-09 Yes TAKE ONE Un donaldo mg Tab 1-24 TABLET BY ity of 00:00: MOUTH ONCE [place] 00 A DAY AT Medical LEAST 30 Branch MINUTES BEFORE FIRST FOOD, BEVERAGE, OR OTHER MEDICINE OF THE DAY [facility] 2020-09 Yes TAKE ONE Un donaldo mg Tab 1-24 TABLET BY ity of 00:00: MOUTH ONCE [place] 00 A DAY AT Medical LEAST 30 Branch MINUTES BEFORE FIRST FOOD, BEVERAGE, OR OTHER MEDICINE OF THE DAY [facility] 2020-09 Yes TAKE ONE Un donaldo [...] ity of tablet 00:00: [place] 00 Medical [place] traZODone 2020-09 Yes Univers 100 mg 0-27 [...] tablet 00:00: Medical Branch bupivacaine 2020- No [id number] 1mL [place] ([place]) 02-27 9102 Health 0.5 % 14:41: 14:41 injection 1 46 :00 mL triamcinolo 2020- No [id number] 80mg [place] ne 02-27 9102 [facility] acetonide 14:41: 14:41 (Kenalog-40 46 :00 ) injection 80 mg triamcinolo 2020- No [id number] 80mg 80 mg, [place] ne 02-27 9102 [facility] acetonide 14:41: 14:41 cular, (Kenalog-40 46 :00 Once PRN ) injection Procedure, 80 mg Starting on Thu02/27/21 at 0941, For 1 dose bupivacaine 2020- No [id number] 1mL 1 mL, [place] ([place]) 02-27 9102 Injection, He alth 0.5 % 14:41: 14:41 Once PRN injection 1 46 :00 Procedure, mL Starting on Thu02/27/21 at 0941, For 1 dose amLODIPine Yes 5mg Take 5 mg Un donaldo 5 mg tablet 621 by mouth. ity of 00:00: [facility] Branch SERTraline Yes 50mg Take 50 mg U nivers 50 mg 6-21 by mouth. ity of tablet 00:00: [facility] amLODIPine Yes 5mg Take 5 mg Un donaldo 5 mg tablet 6-21 by mouth. ity of 00:00: Medical Branch SERTraline 2021-0 Yes 50mg Take 50 mg U nivers 50 mg 6-21 by mouth. ity of tablet 00:00: [facility] amLODIPine 1-0 Yes 5mg Take 5 mg Un donaldo 5 mg tablet 6-21 by mouth. ity of 00:00: [facility] SERTraline 2021-0 Yes 50mg Take 50 mg U nivers 50 mg 6-21 by mouth. ity of tablet 00:00: [place] [facility] amLODIPine 2021-0 Yes 5mg Take 5 mg Un donaldo 5 mg tablet 6-21 by mouth. ity of 00:00: [facility] SERTraline 1-0 Yes 50mg Take 50 mg U nivers 50 mg 6-21 by mouth. ity of tablet 00:00: [place] [facility] amLODIPine 1-0 Yes 5mg Take 5 mg Un donaldo 5 mg tablet 6-21 by mouth. ity of 00:00: [place] [facility] SERTraline 1-0 Yes 50mg Take 50 mg U nivers 50 mg 6-21 by mouth. ity of tablet 00:00: [place] [facility] amLODIPine 1-0 Yes 5mg Take 5 mg Un donaldo 5 mg tablet 6-21 by mouth. ity of 00:00: [place] [facility] SERTraline 1-0 Yes 50mg Take 50 mg U nivers 50 mg 6-21 by mouth. ity of tablet 00:00: [place] [facility] amLODIPine 1-0 Yes 5mg Take 5 mg Un donaldo 5 mg tablet 6-21 by mouth. ity of 00:00: [place] [facility] SERTraline 1-0 Yes 50mg Take 50 mg U nivers 50 mg 6-21 by mouth. ity of tablet 00:00: [place] [facility] amLODIPine 1-0 Yes 5mg Take 5 mg Un donaldo 5 mg tablet 6-21 by mouth. ity of 00:00: [place] [facility] SERTraline 1-0 Yes 50mg Take 50 mg U nivers 50 mg 6-21 by mouth. ity of tablet 00:00: [place] [facility] amLODIPine 1-0 Yes 5mg QD Take 5 [...] 00:00: (one) time 00 each day. simvastatin 1-0 Yes 10mg QD Take 10 mg [facility] [...] of 24 hr 00:00: mouth. [place] tablet 00 [facility] metformin 2021-0 Yes 500mg Take 500 Uni vers ER 500 mg 6-03 mg by ity of 24 hr 00:00: mouth. [place] tablet 00 [facility] metformin 2021-0 Yes 500mg Take 500 Uni vers ER 500 mg 6-03 mg by ity of 24 hr 00:00: mouth. [place] tablet 00 [facility] metformin 2021-0 Yes 500mg Take 500 Uni vers ER 500 mg 6-03 mg by ity of 24 hr 00:00: mouth. [place] tablet 00 [facility] metformin 2021-0 Yes 500mg Take 500 Uni vers ER 500 mg 6-03 mg by ity of 24 hr 00:00: mouth. [place] tablet 00 [facility] metformin 2021-0 Yes 500mg Take 500 Uni vers ER 500 mg 6-03 mg by ity of 24 hr 00:00: mouth. [place] tablet 00 [facility] metformin 2021-0 Yes 500mg Take 500 Uni vers ER 500 mg 6-03 mg by ity of 24 hr 00:00: mouth. [place] tablet 00 [facility] metformin 2021-0 Yes 500mg Take 500 Uni vers ER 500 mg 6-03 mg by ity of 24 hr 00:00: mouth. [place] tablet 00 [facility] metFORMIN 2021-0 Yes 500mg QD Take 500 [...] mouth. ity of 3 mg Tab 00:00: [address] plecanatide 2021-0 Yes 3mg Take 3 mg U nivers (TRULANCE) 3-23 by mouth. ity of 3 mg Tab 00:00: [address] plecanatide 2021-0 Yes 3mg Take 3 mg U nivers (TRULANCE) 3-23 by mouth. ity of 3 mg Tab 00:00: [address] plecanatide 2021-0 Yes 3mg Take 3 mg U nivers (TRULANCE) 3-23 by mouth. ity of 3 mg Tab 00:00: [address] plecanatide 2021-0 Yes 3mg Take 3 mg U nivers (TRULANCE) 3-23 by mouth. ity of 3 mg Tab 00:00: [place] [facility] Branch plecanatide 2020-0 Yes 3mg Take 3 mg U nivers (TRULANCE) 3-23 by mouth. ity of 3 mg Tab 00:00: [place] [facility] Branch plecanatide 2020-0 Yes 3mg Take 3 mg U nivers (TRULANCE) 3-23 by mouth. ity of 3 mg Tab 00:00: [place] [facility] Branch plecanatide 2020-0 Yes 3mg Take 3 mg U nivers (TRULANCE) 3-23 by mouth. ity of 3 mg Tab 00:00: [place] [facility] Trulance 3 2020-0 Yes 3mg [...] PO, l Tablet 17:44: Daily, # [place] 90 tab, 0 Refill(s), Pharmacy: [facility][id number] Aspirin 81 2020-0 Yes 81 mg = 1 Me moria MG Chewable 3-16 tab, PO, l Tablet 17:44: Daily, # [place] 00 90 tab, 0 Refill(s), Pharmacy: [facility] #[id number] Aspirin 81 2020-0 Yes 81 mg = 1 Me [place] MG Chewable 3-16 tab, PO, l Tablet 17:44: Daily, # Solomon 90 tab, 0 Refill(s), Pharmacy: [id number] Aspirin 81 2020-0 Yes 81 mg = 1 Me moria MG Chewable 3-16 tab, PO, l Tablet 17:44: Daily, # Addison 90 tab, 0 Refill(s), [facility] 3-16 (Same as: l 0.05 14:00: Flonase) Addison MG/ACTUAT 00 Metered Dose Nasal [place] [Flonase] Hydrochloro 2020-0 No 1 tab, Brennen oscar thiazide 25 3-16 Route: PO, l MG / 14:00: Drug Form: Solomon Losartan 00 TAB, Potassium Dosing 100 MG Oral Weight Tablet 79.091, kg, Daily, Start date: 11/21/19 9:00:00 CDT, Duration: 30 day, Stop date: 12/20/19 9:00:00 CDT pantoprazol No Notes: Brennen oscar e 3-16 Tablet l 14:00: should not Addison 00 be chewed or crushed. (Same as: [...] a 3-16 Hazardous l 14:00: Drug Group Addison 00 2:Non-anti neoplastic Hazardous Drug -- Refer to safe handling procedure PPE [facility] Fluticasone No Notes: Brennen oscar propionate 3-16 (Same as: l 0.05 14:00: Flonase) Solomon MG/ACTUAT 00 Metered Dose Nasal [place] [Flonase] Hydrochloro No 1 tab, Brennen oscar thiazide 25 3-16 Route: PO, l MG / 14:00: Drug Form: Addison Losartan 00 TAB, Potassium Dosing 100 MG Oral Weight Tablet 79.091, kg, Daily, Start date: 11/21/19 9:00:00 CDT, Duration: 30 day, Stop date: 12/20/19 9:00:00 CDT pantoprazol No Notes: Brennen oscar e 3-16 Tablet l 14:00: should not [place]ison 00 be chewed or crushed. (Same as: [...] a 3-16 Hazardous l 14:00: Drug Group Addison 00 2:Non-anti neoplastic Hazardous Drug -- Refer to safe handling procedure PPE [facility] Fluticasone No Notes: Brennen oscar propionate 3-16 (Same as: l 0.05 14:00: Flonase) Solomon MG/ACTUAT 00 Metered Dose Nasal [place] [Flonase] Hydrochloro No 1 tab, Brennen oscar [...] Memoria 3-16 Same as l 14:00: Januvia Addison 00 Insulin No Notes: Memoria Glargine 3-16 [...] Memoria 3-16 (Same as: l 14:00: Cozaar) Addison 00 Esomeprazol No 40 mg, 1 Me [...] Flonase) Solomon MG/ACTUAT 00 Metered Dose Nasal [place] [Flonase] Hydrochloro No 1 tab, Brennen oscar [...] Memoria 3-16 (Same as: l 14:00: Cozaar) Addison 00 Esomeprazol No 40 mg, 1 Me moria e 3-16 cap, l 14:00: Route: PO, Addison 00 Drug form: ECCAP, Daily, Dosing Weight 79.091, kg, Start date: 11/21/19 9:00:00 CDT, Duration: 30 day, Stop date: 12/20/19 9:00:00 CDT Estradiol No Notes: Memori a 3-16 Hazardous l 14:00: Drug Group Addison 00 2:Non-anti neoplastic Hazardous Drug -- Refer to safe handling procedure PPE [facility] Fluticasone No Notes: Brennen oscar propionate 3-16 (Same as: l 0.05 14:00: Flonase) Addison MG/ACTUAT 00 Metered Dose Nasal [place] [Flonase] Hydrochloro No 1 tab, Brennen oscar thiazide 25 3-16 Route: PO, l MG / 14:00: Drug Form: Addison Losartan 00 TAB, Potassium Dosing 100 MG Oral Weight Tablet 79.091, kg, Daily, Start date: 11/21/19 9:00:00 CDT, Duration: 30 day, Stop date: 12/20/19 9:00:00 CDT pantoprazol No Notes: Brennen oscar e 3-16 Tablet l 14:00: should not Addison 00 be chewed or crushed. (Same as: [...] a 3-16 Take 1 l 11:30: hour Addison 00 before or 2 hours after meal; Enteral feeds may interefere with the absorption of this medication . (Same as:Levothr oid) Thyroxine No Notes: Memori a 3-16 Take 1 l 11:30: hour Addison 00 before or 2 hours after meal; Enteral feeds may interefere with the absorption of this medication . (Same as:Levothr oid) Thyroxine No Notes: Memori a 3-16 Take 1 l 11:30: hour Addison 00 before or 2 hours after meal; Enteral feeds may interefere with the absorption of this medication . (Same as:Levothr oid) Thyroxine No Notes: Memori a 3-16 Take 1 l 11:30: hour Addison 00 before or 2 hours after meal; [...] e Expires in days from ____Date Insulin 2020-0 No Notes: Memoria Glargine 3-16 (Same as: l 100 UNT/ML 02:15: Lantus) Do H ermann Injectable 00 not hold Solution insulin [Lantus] without contacting prescriber WASTE: F/P - Black; E - Municipal Trash Bin "single patient use only" Stable for 28 days at room temperatur e Expires in days from ____Date Insulin 2020-0 No Notes: Memoria Glargine 3-16 (Same as: l 100 UNT/ML 02:15: Lantus) Do H ermann Injectable 00 not hold Solution insulin [Lantus] without contacting prescriber WASTE: F/P - Black; E - Municipal Trash Bin "single patient use only" Stable for 28 days at room temperatur e Expires in days from ____Date Insulin 2020-0 No Notes: Memoria Glargine 3-16 (Same as: l 100 UNT/ML 02:15: Lantus) Do H ermann Injectable 00 not hold Solution insulin [Lantus] without contacting prescriber WASTE: F/P - Black; E - Municipal Trash Bin "single patient use only" Stable for 28 days at room temperatur e Expires in days from ____Date Insulin 2020-0 No Notes: Memoria Glargine 3-16 (Same as: l 100 UNT/ML 02:15: Lantus) Do H ermann Injectable 00 not hold Solution insulin [Lantus] without contacting prescriber WASTE: F/P - Black; E - Municipal Trash Bin "single patient use only" Stable for 28 days at room temperatur e Expires in days from ____Date Humalog 2020-0 No Notes: Memoria 3-16 (Same as: l 02:00: Humalog) Solomon 00 Roll in palms of hands gently; Do not shake vigorously . WASTE: F/P - Black; E - Municipal Trash Bin Stable for 28 days at room temperatur e. Expires in days from ____Date montekast No Notes: Brennen oscar 3-16 (Same l 02:00: as:Singula Addison 00 ir) Simvastatin No Notes: Brennen oscar 3-16 (Same as: l 02:00: Zocor) Addison 00 Humalog No Notes: Memoria 3-16 (Same as: l 02:00: Humalog) Addison 00 Roll in palms of hands gently; Do not shake vigorously . WASTE: F/P - Black; E - Municipal Trash Bin Stable for 28 days at room temperatur e. Expires in days from ____Date montelukast No Notes: Brennen oscar 3-16 (Same l 02:00: as:Singula Addison 00 ir) Simvastatin No Notes: Brennen oscar 3-16 (Same as: l 02:00: Zocor) Addison 00 Humalog No Notes: Memoria 3-16 (Same as: l 02:00: Humalog) Addison 00 Roll in palms of hands gently; Do not shake vigorously . WASTE: F/P - Black; E - Municipal Trash Bin Stable for 28 days at room temperatur e. Expires in days from ____Date montelukast No Notes: Brennen oscar 3-16 (Same l 02:00: as:Singula [place]ison 00 ir) Simvastatin No Notes: Brennen oscar 3-16 (Same as: l 02:00: Zocor) Solomon 00 Humalog No Notes: Memoria 3-16 (Same as: l 02:00: Humalog) Addison 00 Roll in palms of hands gently; [...] Memoria 3-16 (Same as: l 02:00: Humalog) Addison Roll in palms of hands gently; Do not shake vigorously . WASTE: F/P - Black; E - Municipal Trash Bin Stable for 28 days at room temperatur e. Expires in days from ____Date montelukast No Notes: Brennen oscar 3-16 (Same l 02:00: as:Singula Addison 00 ir) Simvastatin No Notes: Brennen oscar 3-16 (Same as: l 02:00: Zocor) Addison 00 Insulin, No 10 unit, Memor ia Aspart, 3-16 Route: l Human 01:39: SUB-Q, Addison 00 ONCE, Dosing Weight 79.091, kg, Priority: NOW, Start date: 11/20/19 20:39:00 CDT, Stop date: 11/20/19 20:39:00 CDT Insulin, No 10 unit, Memor ia Aspart, 3-16 Route: l Human 01:39: SUB-Q, Addison 00 ONCE, Dosing Weight 79.091, kg, Priority: NOW, Start date: 11/20/19 20:39:00 CDT, Stop date: 11/20/19 20:39:00 CDT Insulin, 2019-0 No 10 unit, Memor ia Aspart, 3-16 Route: l Human 01:39: SUB-Q, Addison 00 ONCE, Dosing Weight 79.091, kg, Priority: NOW, Start date: 11/20/19 20:39:00 CDT, Stop date: 11/20/19 20:39:00 CDT Insulin, 2020-0 No 10 unit, Memor ia Aspart, 3-16 Route: l Human 01:39: SUB-Q, Addison 00 ONCE, Dosing Weight 79.091, kg, Priority: NOW, Start date: 11/20/19 20:39:00 CDT, Stop date: 11/20/19 20:39:00 CDT Insulin, No 10 unit, Memor ia Aspart, 3-16 Route: l Human 01:39: SUB-Q, Addison 00 ONCE, Dosing Weight 79.091, kg, Priority: NOW, Start date: 11/20/19 20:39:00 CDT, Stop date: 11/20/19 20:39:00 CDT Buspirone No Notes: Memori a 3-15 (Same As: l 22:00: BuSpar) Addison Amitiza No Notes: Memoria 3-15 Same as l 22:00: Amitiza Addison (Do Not Crush) Non Formulary Buspirone No Notes: Memori a 3-15 (Same As: l 22:00: BuSpar) Addison Amitiza No Notes: Memoria 3-15 Same as l 22:00: Amitiza Solomon (Do Not Crush) Non Formulary Buspirone No Notes: Memori a 3-15 (Same As: l 22:00: BuSpar) Addison Amitiza No Notes: Memoria 3-15 Same as l 22:00: Amitiza Addison (Do Not Crush) Non Formulary Buspirone No Notes: Memori a 3-15 (Same As: l 22:00: BuSpar) Addison Amitiza No Notes: Memoria 3-15 Same as l 22:00: Amitiza Addison 00 (Do Not Crush) Non Formulary Buspirone No Notes: Memori a 3-15 (Same As: l 22:00: BuSpar) Solomon Amitiza No Notes: Memoria 3-15 Same as l 22:00: Amitiza Addison 00 (Do Not Crush) Non Formulary Acetaminoph No Notes: Do M emoria en 325 MG / 3-15 not exceed l Hydrocodone 18:53: 4gm/day of Solomon Bitartrate 00 acetaminop 10 MG Oral hen. (Same Tablet as: Truchas [Truchas 325/10) ] Acetaminoph No Notes: Do M emoria en 325 MG / 3-15 not exceed l Hydrocodone 18:53: 4gm/day of Addison Bitartrate 00 acetaminop 10 MG Oral hen. (Same Tablet as: Truchas [Truchas 325/10) ] Acetaminoph No Notes: Do M emoria en 325 MG / 3-15 not exceed l Hydrocodone 18:53: 4gm/day of Addison Bitartrate 00 acetaminop 10 MG Oral hen. (Same Tablet as: Truchas [Truchas 325/10) ] Acetaminoph No Notes: Do M emoria en 325 MG / 3-15 not exceed l Hydrocodone 18:53: 4gm/day of Solomon Bitartrate 00 acetaminop 10 MG Oral hen. (Same Tablet as: Truchas [Truchas 325/10) ] Acetaminoph No Notes: Do M emoria en 325 MG / 3-15 not exceed l Hydrocodone 18:53: 4gm/day of Solomon Bitartrate 00 acetaminop 10 MG Oral hen. (Same Tablet as: Truchas [Truchas 325/10) ] Albuterol No Notes: Memori a 0.833 MG/ML 3-15 (Same as: l 18:49: Duoneb) Solomon Ipratropium 00 Buda 0.167 MG/ML Inhalant Solution Albuterol 0 No Notes: Memori a 0.833 MG/ML 3-15 (Same as: l 18:49: Duoneb) Solomon Ipratropium 00 Buda 0.167 MG/ML Inhalant Solution Albuterol 0 No Notes: Memori a 0.833 MG/ML 3-15 (Same as: l / 18:49: Duoneb) Addison Ipratropium 00 Buda 0.167 MG/ML Inhalant Solution Albuterol 0 No Notes: Memori a 0.833 MG/ML 3-15 (Same as: l / 18:49: Duoneb) Addison Ipratropium 00 Buda 0.167 MG/ML Inhalant Solution Albuterol 2020-0 No Notes: Memori a 0.833 MG/ML 3-15 (Same as: l / 18:49: Duoneb) Addison Ipratropium 00 Buda 0.167 MG/ML Inhalant Solution Tylenol 2020-0 No Notes: Do Memor ia 3-15 not exceed l 18:20: 4 gm/day. Addison 00 (Same as: Tylenol) Tylenol 2020-0 No Notes: Do Memor ia 3-15 not exceed l 18:20: 4 gm/day. Solomon 00 (Same as: Tylenol) Tylenol 2019-0 No Notes: Do Memor ia 3-15 not exceed l 18:20: 4 gm/day. Addison 00 (Same as: Tylenol) Tylenol 2019-0 No Notes: Do Memor ia 3-15 not exceed l 18:20: 4 gm/day. Addison 00 (Same as: Tylenol) Tylenol 2019-0 No Notes: Do Memor ia 3-15 not exceed l 18:20: 4 gm/day. Addison 00 (Same as: Tylenol) Labetalol 2020-0 No [...] a 3-15 (Same as: l 17:11: Normodyne, Addison 00 Trandate) Push over 2 minutes Give bolus over 2-3 minutes. Labetalol 2020-0 No Notes: Memori a 3-15 (Same as: l 17:11: Normodyne, Solomon 00 Trandate) Push over 2 minutes Give bolus over 2-3 minutes. heparin 2020-0 No 5,000 Memoria 3-15 unit, l 14:23: Route: Addison 00 SUB-Q, Q8H-06, Dosing Weight 79.091, kg, Priority: STAT, Start date: 11/20/19 9:23:00 CDT, Duration: 30 day, Stop date: 12/20/19 6:00:00 CDT heparin 2020-0 No 5,000 Memoria 3-15 unit, l 14:23: Route: Addison 00 SUB-Q, Q8H-06, Dosing Weight 79.091, kg, [...] 5,000 Memoria 3-15 unit, l 14:23: Route: Addison 00 SUB-Q, Q8H-06, Dosing Weight 79.091, kg, Priority: STAT, Start date: 11/20/19 9:23:00 CDT, Duration: 30 day, Stop date: 12/20/19 6:00:00 CDT Lexapro 2020-0 No 10 mg, Memoria 3-15 Route: PO, l 14:15: Drug form: Addison 00 TAB, Daily, Dosing Weight 79.091, kg, Priority: STAT, Start date: 11/20/19 9:15:00 CDT, Duration: 30 day, Stop date: 12/20/19 9:00:00 CDT Lexapro 2020-0 No 10 mg, Memoria 3-15 Route: PO, l 14:15: Drug form: Addison 00 TAB, Daily, Dosing Weight 79.091, kg, Priority: STAT, Start date: 11/20/19 9:15:00 CDT, Duration: 30 day, Stop date: 12/20/19 9:00:00 CDT Lexapro 2020-0 No 10 mg, Memoria 3-15 Route: PO, l 14:15: Drug form: Addison 00 TAB, Daily, Dosing Weight 79.091, kg, [...] 3-15 (Same as: l 14:00: Lasix) May Addison 00 cause GI upset. Give with food or milk. Losartan 0 No Notes: Memoria 3-15 (Same as: l 14:00: Cozaar) Addison Furosemide 0 No Notes: Memor ia 3-15 (Same as: l 14:00: Lasix) May Solomon 00 cause GI upset. Give with food or milk. Losartan 0 No Notes: Memoria 3-15 (Same as: l 14:00: Cozaar) Addison Furosemide 0 No Notes: Memor ia 3-15 (Same as: l 14:00: Lasix) May Solomon 00 cause GI upset. Give with food or milk. Losartan 0 No Notes: Memoria 3-15 (Same as: l 14:00: Cozaar) Addison 00 Humalog No Notes: Memoria 3-15 (Same as: l 08:52: Humalog) Addison 00 Roll in palms of hands gently; [...] Results, 0 glucagon No 1 mg, Memoria 315 Route: l 08:52: INJ, Drug form: PDR/INJ, [...] 2020-0 No 50 mL, Memoria 50% in 3 Route: l Water IV 08:52: IVP, Start Her marmolejo date: 11/20/19 3:52:00 CDT, Duration: 30 day, Stop date: 12/20/19 3:51:00 CDT, PRN Blood Glucose Results, 0 glucagon 2019-0 No 1 mg, Memoria 11-19 Route: l 08:52: INJ, Drug Solomon form: PDR/INJ, PRN, PRN Blood Glucose Results, Start date: 11/20/19 3:52:00 CDT, Duration: 30 day, Stop date: 12/20/19 3:51:00 CDT, 0 Humalog 2020-0 No Notes: Memoria 11-19 (Same as: l 08:52: Humalog) Addison Roll in palms of hands gently; Do not shake vigorously . WASTE: F/P - Black; E - Municipal Trash [facility] Expires in days from ____Date Dextrose 2020-0 No 50 mL, Memoria 50% in 11-19 Route: l Water IV 08:52: IVP, Start Her marmolejo date: 11/20/19 3:52:00 CDT, Duration: 30 day, Stop date: 12/20/19 3:51:00 CDT, PRN Blood Glucose Results, 0 glucagon 2019-0 No 1 mg, Memoria 11-19 Route: l 08:52: INJ, Drug Solomon form: PDR/INJ, PRN, PRN Blood Glucose Results, Start date: 11/20/19 3:52:00 CDT, Duration: 30 day, Stop date: 12/20/19 3:51:00 CDT, 0 Humalog 2020-0 No Notes: Memoria 315 (Same as: l 08:52: Humalog) Solomon 00 Roll in palms of hands gently; Do not shake vigorously . WASTE: F/P - Black; E - Municipal Trash Bin Stable for 28 days at room temperat e. Expires in days from ____Date Dextrose 2020-0 No 50 mL, Memoria 50% in 3-15 Route: l Water IV 08:52: IVP, Start Her date: 11/20/19 3:52:00 CDT, Duration: 30 day, Stop date: 12/20/19 3:51:00 CDT, PRN Blood Glucose Results, 0 glucagon 2019-0 No 1 mg, Memoria 315 Route: l 08:52: INJ, Drug Solomon form: PDR/INJ, PRN, PRN Blood Glucose Results, Start date: 11/20/19 3:52:00 CDT, Duration: 30 day, Stop date: 12/20/19 3:51:00 CDT, 0 Humalog 2020-0 No Notes: Memoria 3-15 (Same as: l 08:52: Humalog) Solomon Roll in palms of hands gently; Do not shake vigorously . WASTE: F/P - Black; E - Municipal Trash Bin Stable for 28 days at room temperatur e. Expires in days from ____Date Dextrose 2020-0 No 50 mL, Memoria 50% in 3 Route: l Water IV 08:52: IVP, Start Her date: 11/20/19 3:52:00 CDT, Duration: 30 day, Stop date: 12/20/19 3:51:00 CDT, PRN Blood Glucose Results, 0 glucagon 2019-0 No 1 mg, Memoria 15 Route: l 08:52: INJ, Drug Solomon form: PDR/INJ, PRN, PRN Blood Glucose Results, Start date: 11/20/19 3:52:00 CDT, Duration: 30 day, Stop date: 12/20/19 3:51:00 CDT, 0 Humalog 2020-0 No Notes: Memoria 3-15 (Same as: l 08:51: Humalog) Solomon Roll in palms of hands [...] Memoria 3-15 (Same as: l 08:51: Humalog) Addison 00 Roll in palms of hands gently; Do not shake vigorously . WASTE: F/P - Black; E - Municipal Trash Bin Stable for 28 days at room temperatur e. Expires in days from ____Date Labetalol 2019-0 No Notes: Memori a 3-15 (Same as: l 06:25: Normodyne, Addison 00 Trandate) Push over 2 minutes Give bolus over 2-3 minutes. Labetalol 2019-0 No Notes: Memori a 3-15 (Same as: l 06:25: Normodyne, Solomon 00 Trandate) Push over 2 minutes Give bolus over 2-3 minutes. Labetalol 2019-0 No Notes: Memori a 3-15 (Same as: l 06:25: Normodyne, Addison 00 Trandate) Push over 2 minutes Give bolus over 2-3 minutes. Labetalol 2020-0 No Notes: Memori a 3-15 (Same as: l 06:25: Normodyne, Addison 00 Trandate) Push over 2 minutes Give bolus over 2-3 minutes. Labetalol 2020-0 No Notes: Memori a 3-15 (Same as: l 06:25: Normodyne, Solomon 00 Trandate) Push over 2 minutes Give bolus over 2-3 minutes. Hydralazine 2020-0 No Notes: Brennen oscar 3-15 (Same as: l 03:35: Apresoline Addison 00 ) Push over 5 minutes Hydralazine 2020-0 No Notes: Brennen oscar 3-15 (Same as: l 03:35: Apresoline Addison 00 ) Push over 5 minutes Hydralazine 2020-0 No Notes: Brennen oscar 3-15 (Same as: l 03:35: Apresoline Solomon 00 ) Push over 5 minutes Hydralazine 2020-0 No Notes: Brennen oscar 3-15 (Same as: l 03:35: Apresoline Addison 00 ) Push over 5 minutes Hydralazine 2020-0 No Notes: Brennen oscar 3-15 (Same as: l 03:35: Apresoline Addison 00 ) Push over 5 minutes Furosemide 2020-0 No Notes: Memor ia 3-14 (Same as: l 23:33: Lasix) Addison 00 Losartan 2020-0 No Notes: Memoria 3-14 (Same as: l 23:33: Cozaar) Solomon 00 Furosemide 2020-0 No Notes: Memor ia 3-14 (Same as: l 23:33: Lasix) Solomon 00 Losartan 2020-0 No Notes: Memoria 3-14 (Same as: l 23:33: Cozaar) Solomon 00 Furosemide 2020-0 No Notes: Memor ia 3-14 (Same as: l 23:33: Lasix) Solomon 00 Losartan 2020-0 No Notes: Memoria 3-14 (Same as: l 23:33: Cozaar) Addison 00 Furosemide 2020-0 No Notes: Memor ia 3-14 (Same as: l 23:33: Lasix) Addison 00 Losartan 2020-0 No Notes: Memoria 3-14 [...] l 3350 14:00: in 8 oz of Addison 00 water or juice. (Same as: Miralax) Aspirin No Notes: Memoria 3-14 Take with l 14:00: food. POLYETHYLEN No Notes: Brennen oscar E GLYCOL 3-14 Dissolve l 3350 14:00: in 8 oz of Addison 00 water or juice. (Same as: Miralax) Aspirin No Notes: Memoria 3-14 Take with l 14:00: food. phenol No Notes: Memoria 3-14 Chlorasept l 02:54: ic [place] (Same as: Chlorasept ic, Sore Throat [place]) WASTE: F/P - Black; E - Municipal Trash Bin phenol No Notes: Memoria 3-14 Chlorasept l 02:54: ic [place] Solomon 00 (Same as: Chlorasept ic, Sore Throat [place]) WASTE: F/P - Black; E - Municipal Trash Bin phenol 2020-0 No Notes: Memoria 3-14 Chlorasept l 02:54: ic [place] Solomon 00 (Same as: Chlorasept ic, Sore Throat [place]) WASTE: F/P - Black; E - Municipal Trash Bin phenol 2019-0 No Notes: Memoria 3-14 Chlorasept l 02:54: ic [place] 00 (Same as: Chlorasept ic, Sore Throat [place]) WASTE: F/P - Black; E - Municipal Trash Bin phenol 2019-0 No Notes: Memoria 3-14 Chlorasept l 02:54: ic [place] Solomon 00 (Same as: Chlorasept ic, Sore Throat [place]) WASTE: F/P - Black; E - Municipal Trash Bin Famotidine 0 No Notes: Memor ia 3-14 (Same as: l 02:00: Pepcid) Solomon 00 Can be dilute in 5-10cc NS IVP: Slow IV push over at least 2 minutes. Saline No Notes: Memoria Flush 0.9% 3-14 (Same as: l 02:00: BD [place] 00 Posiflush) gabapentin 2019-0 No Notes: Memor ia 3-14 (Same as: l 02:00: Neurontin) Solomon 00 Famotidine 0 No Notes: Memor ia 3-14 (Same as: l 02:00: Pepcid) Add[place] 00 Can be dilute in 5-10cc NS IVP: Slow IV push over at least 2 minutes. Saline No Notes: Memoria Flush 0.9% 3-14 (Same as: l 02:00: BD Solomon 00 Posiflush) gabapentin 2020-0 No Notes: Memor ia 3-14 (Same as: l 02:00: Neurontin) Solomon 00 Famotidine 2019-0 No Notes: Memor ia 3-14 (Same as: l 02:00: Pepcid) Solomon 00 Can be dilute in 5-10cc NS IVP: Slow IV push over at least 2 minutes. Saline 2019-0 No Notes: Memoria Flush 0.9% 3-14 (Same as: l 02:00: BD [place] 00 Posiflush) gabapentin 2020-0 No Notes: Memor ia 3-14 (Same as: l 02:00: Neurontin) Solomon 00 Famotidine 2020-0 No Notes: Memor ia 3-14 (Same as: l 02:00: Pepcid) Solomon 00 Can be dilute in 5-10cc NS IVP: Slow IV push over at least 2 minutes. Saline 2019-0 No Notes: Memoria Flush 0.9% 3-14 (Same as: l 02:00: BD Solomon 00 Posiflush) gabapentin 2020-0 No Notes: Memor ia 3-14 (Same as: l 02:00: Neurontin) Addison 00 Famotidine 2020-0 No Notes: Memor ia 3-14 (Same as: l 02:00: Pepcid) Addison 00 Can be dilute in 5-10cc NS IVP: Slow IV push over at least 2 minutes. Saline 2020-0 No Notes: Memoria Flush 0.9% 3-14 (Same as: l 02:00: BD Solomon 00 Posiflush) gabapentin 2020-0 No Notes: Memor ia 3-14 (Same as: l 02:00: Neurontin) Addison 00 glucagon 2020-0 No 1 mg, Memoria 3-14 Route: l 01:54: INJ, Drug Addison 00 form: PDR/INJ, PRN, PRN Blood Glucose [...] Memoria 3-14 Route: l 01:54: INJ, Drug Addison 00 form: PDR/INJ, PRN, PRN Blood Glucose Results, Start date: 11/18/19 20:54:00 CDT, Duration: 30 day, Stop date: 12/18/19 20:53:00 CDT, 0 glucagon 2020-0 No 1 mg, Memoria 3-14 Route: l 01:54: INJ, Drug Addison 00 form: PDR/INJ, PRN, PRN Blood Glucose [...] Memoria 3-14 (Same as: l :53: Humalog) Addison 00 Roll in palms of hands gently; [...] Memoria 3-14 (Same as: l :53: Humalog) Addison 00 Roll in palms of hands gently; [...] days from ____Date Humalog No Notes: Memoria 3-14 (Same as: l :52: Humalog) Addison 00 Roll in palms of hands gently; Do not shake vigorously . WASTE: F/P - Black; E - Municipal Trash Bin Stable for 28 days at room temperatur e. Expires in days from ____Date Humalog No Notes: Memoria 3-14 (Same as: l :52: Humalog) Solomon 00 Roll in palms of hands gently; Do not shake vigorously . WASTE: F/P - Black; E - Municipal Trash Bin Stable for 28 days at room temperatur e. Expires in days from ____Date Humalog No Notes: Memoria 3-14 (Same as: l :52: Humalog) Solomon 00 Roll in palms of hands gently; Do not shake vigorously . WASTE: F/P - Black; E - Municipal Trash Bin Stable for 28 days at room temperatur e. Expires in days from ____Date Humalog No Notes: Memoria 3-14 (Same as: l :52: Humalog) Solomon 00 Roll in palms of hands gently; Do not shake vigorously . WASTE: F/P - Black; E - Municipal Trash Bin Stable for 28 days at room temperatur e. Expires in days from ____Date Lasix No Notes: Memoria 3-13 (Same as: l 22:49: Lasix) Addison 00 MEDICATION WASTE Product Size: 40 mg Product Wasted: ___ mg Losartan 2020-0 No Notes: Memoria 3-13 (Same as: l 22:49: Cozaar) Addison 00 Lasix 2020-0 No Notes: Memoria 3-13 (Same as: l 22:49: Lasix) Addison 00 MEDICATION WASTE Product Size: 40 mg Product Wasted: ___ mg Losartan 2020-0 No Notes: Memoria 3-13 (Same as: l 22:49: Cozaar) Addison 00 Lasix 2020-0 No Notes: Memoria 3-13 (Same as: l 22:49: Lasix) Addison 00 MEDICATION WASTE Product Size: 40 mg Product Wasted: ___ mg Losartan 2020-0 No Notes: Memoria 3-13 (Same as: l 22:49: Cozaar) Lasix 2020-0 No Notes: Memoria 3-13 (Same as: l 22:49: Lasix) Solomon 00 MEDICATION WASTE Product Size: 40 mg Product Wasted: ___ mg Losartan 2020-0 No Notes: Memoria 3-13 (Same as: l 22:49: Cozaar) Addison 00 Lasix 2020-0 No Notes: Memoria 3-13 (Same as: l 22:49: Lasix) Addison 00 MEDICATION WASTE Product Size: 40 mg [...] mg ceFAZolin + 2020-0 No Notes: Brennen socar sterile 3-13 (Same As: l water 20 [...] 2020-0 No Notes: Memori a 0.833 MG/ML - (Same as: :: Duoneb) Solomon Ipratropium 00 Buda 0.167 MG/ML Inhalant Solution Saline 2020-0 No Notes: Memoria Flush 0.9% - (Same as: :: BD Addison Posiflush) Potassium 2020-0 No Notes: Memori a Chloride 3-13 (Same as: l 17:26: KCL) Addison 00 Infuse no faster than 10 mEq/hr if given peripheral ly. sodium No Notes: Memoria phosphate 3-13 Infuse l 17:26: over 4 Addison 00 hour. Do not infuse phosphorou s concurrent ly in the same line as TPN or IVF that contains calcium. For double lumen central lines, phosphorou s may be infused in a separate lumen from TPN. potassium 2019- No Notes: Memori a phosphate 3-13 (Same as: l 17:26: K Addison Phosphate. ) Do not infuse phosphorou s [...] stir. Magnesium No Notes: Memori a Sulfate 3- WASTE: F/P l 17:: - Sink; E - Municipal Trash Bin Magnesium No Notes: Memori a Oxide 3-13 (Same as: l 17:26: Mag-Ox Addison 00 400) Magnesium oxide [id number] g elemental magnesium Dose=____m g magnesium oxide (___mg elemental magnesium) Calcium No Notes: Memoria Gluconate 3-13 WASTE: F/P l 17:26: - Sink; E Solomon - [facility] Trash Bin Calcium No Notes: Memoria Carbonate 3-13 (Same As: l 500 MG 17:26: Tums) Addison Chewable 00 Calcium Tablet Carbonate 500 mg = 200 mg elemental calcium Dose = mg calcium carbonate ( mg elemental calcium) Albuterol 2019-0 No Notes: Memori a 0.833 MG/ML 3-13 (Same as: l / 17:26: Duoneb) Solomon Ipratropium 00 [place] 0.167 MG/ML Inhalant Solution Saline No Notes: Memoria Flush 0.9% 3-13 (Same as: l 17:26: BD [place]) Potassium 2019- No Notes: Memori a Chloride 3-13 (Same as: l :: KCL) Infuse no faster than 10 mEq/hr if given peripheral ly. sodium 2019- No Notes: Memoria phosphate 3-13 Infuse l 17:26: over 4 Addison 00 hour. Do not infuse phosphorou s [...] 3-13 (Same as: l odium :: Phos-NaK) phosphate 00 Each 1.5 250 mg-280 gm pkt has mg-160 mg 250mg oral powder phosphorou for s. Mix reconstitut w/2.5oz ion water and stir. Magnesium No Notes: Memori a Sulfate 3-13 WASTE: F/P l : - Sink; E - Municipal Trash Bin Magnesium 2019- No Notes: Memori a Oxide 3-13 (Same as: l 17:26: Mag-Ox Solomon 00 400) Magnesium oxide 053hh=433j g elemental magnesium Dose=____m g magnesium oxide (___mg elemental magnesium) Calcium 2019- No Notes: [facility]oria Gluconate 3-13 WASTE: F/P l 17:: - Sink; E - Municipal Trash Bin Calcium 2019- No Notes: Memoria Carbonate 3-13 (Same As: l 500 MG 17:: Tums) Addison Chewable 00 Calcium Tablet Carbonate 500 mg = 200 mg elemental calcium Dose = mg calcium carbonate ( mg elemental calcium) Albuterol No Notes: Memori a 0.833 MG/ML 3-13 (Same as: l / : Duoneb) Ipratropium 00 [place] 0.167 MG/ML Inhalant Solution Saline No Notes: Memoria Flush 0.9% 3-13 (Same as: l :: BD [place]if[place]) Potassium No Notes: Memori a Chloride 3-13 (Same as: l : KCL) Infuse no faster than 10 mEq/hr if given peripheral ly. sodium No Notes: Memoria phosphate 3-13 Infuse l :: over 4 hour. Do not infuse phosphorou s concurrent ly in the same line as TPN or IVF that contains calcium. For double lumen central lines, phosphorou s may be infused in a separate lumen from TPN. potassium No Notes: Memori a phosphate 3-13 (Same as: l : K Phosphate. ) Do not infuse phosphorou s concurrent ly in the same line as TPN or IVF that contains calcium. For double lumen central lines, phosphorou s may be infused in a separate lumen from TPN. 1 mMol phoshate has 1.47 mEq potassium Infuse over 4 hours potassium No Notes: Memori a phosphate-s 3-13 (Same as: l odium :: Phos-NaK) Solomon phosphate 00 Each 1.5 250 mg-280 gm pkt has mg-160 mg 250mg oral powder phosphorou for s. Mix reconstitut w/2.5oz ion water and stir. Magnesium No Notes: [facility] a Sulfate 3-13 WASTE: F/P l :: - Sink; E - Municipal Trash Bin Magnesium No Notes: Memori a Oxide 3-13 (Same as: l : Mag-Ox 400) Magnesium oxide 478od=898m g elemental magnesium Dose=____m g magnesium oxide (___mg elemental magnesium) Calcium No Notes: [facility]oria Gluconate 3-13 WASTE: F/P l :: - Sink; E [place] - Municipal Trash Bin Calcium 2019-0 No Notes: [facility]oria Carbonate 3-13 (Same As: l 500 MG 17:: Tums) Addison Chewable 00 Calcium Tablet Carbonate 500 mg = 200 mg elemental calcium Dose = mg calcium carbonate ( mg elemental calcium) Albuterol No Notes: Memori a 0.833 MG/ML 3-13 (Same as: l / :: Duoneb) Solomon Ipratropium 00 Buda 0.167 MG/ML Inhalant Solution Saline No Notes: [facility]oria Flush 0.9% 3-13 (Same as: l :: BD Addison Posiflush) Potassium No Notes: Memori a Chloride 3-13 (Same as: l :: KCL) Addison 00 Infuse no faster than 10 mEq/hr [...] F/P l 17:: - Sink; E Solomon - [facility] Trash Bin Magnesium 2019- No Notes: Memori a Oxide 3-13 (Same as: l 17:26: Mag-Ox Solomon 00 400) Magnesium oxide 313hb=164h g elemental magnesium Dose=____m g magnesium oxide (___mg elemental magnesium) Calcium 2019-0 No Notes: [facility] Gluconate 3-13 WASTE: F/P l 17:26: - Sink; E [place]ison 00 - [facility] Trash Bin Calcium 2019-0 No Notes: [facility] Carbonate 3-13 (Same As: l 500 MG 17:: Tums) Addison Chewable 00 Calcium Tablet Carbonate 500 mg = 200 mg elemental calcium Dose = mg calcium carbonate ( mg elemental calcium) Albuterol 2019- No Notes: Memori a 0.833 MG/ML 3-13 (Same as: l / :: Duoneb) Ipratropium 00 [place] 0.167 MG/ML Inhalant Solution Saline No Notes: [facility]oria Flush 0.9% 3-13 (Same as: l 17:: BD Solomon 00 Posiflush) Potassium 2019- No Notes: [facility] a Chloride 3-13 (Same [...] 3-13 (Same as: l odium 17:26: Phos-NaK) Addison phosphate 00 Each 1.5 250 mg-280 gm pkt has mg-160 mg 250mg oral powder phosphorou for s. Mix reconstitut w/2.5oz ion water and stir. Magnesium 2020-0 No Notes: [facility] a Sulfate 3- WASTE: F/P l 17:26: - Sink; E Addison 00 - [facility] Trash Bin Magnesium No Notes: [facility] a Oxide 3-13 (Same as: l 17:26: Mag-Ox Solomon 00 400) Magnesium oxide 735ia=253x g elemental magnesium Dose=____m g magnesium oxide (___mg elemental magnesium) Calcium No Notes: [facility] Gluconate 3-13 WASTE: F/P l 17:26: - Sink; E [place]ison 00 - Municipal Trash Bin Calcium No Notes: [facility] Carbonate 3-13 (Same As: l 500 MG 17:26: Tums) Addison Chewable 00 Calcium Tablet Carbonate 500 mg = 200 mg elemental calcium Dose = mg calcium carbonate ( mg elemental calcium) Acetaminoph No Notes: Do M emoria en 3-13 not exceed l 17:00: 4 gm/day. Addison (Same as: Tylenol) Acetaminoph No Notes: Do M emoria en 3-13 not exceed l 17:00: 4 gm/day. Addison (Same as: Tylenol) Acetaminoph No Notes: Do M emoria en 3-13 not exceed l 17:00: 4 gm/day. Solomon (Same as: Tylenol) Acetaminoph No Notes: Do M emoria en 3-13 not exceed l 17:00: 4 gm/day. Addison (Same as: Tylenol) Acetaminoph No Notes: Do M emoria en 3-13 not exceed l 17:00: 4 gm/day. Solomon (Same as: Tylenol) gabapentin No Notes: Memor ia 3-13 (Same as: l 16:39: Neurontin) Solomon 00 Oxycodone 0 No Notes: Memori a Hydrochlori 3-13 (Same as: l de 5 MG 16:39: Roxicodone Herm mary Oral Tablet 00 ) Tramadol No Notes: Not Mem oria 3-13 to exceed l 16:39: 400mg/day. Addison 00 (Same As: Ultram) gabapentin 2020-0 No Notes: Memor ia 3-13 (Same [...] ) niCARdipine No Route: IV, Memoria (ANES) 3-13 [...] 11:13:00 CDT Nicardipine 2020-0 No Notes: Brennen osacr 3-13 Same as: l 16:12: Cardene Concentrat [...] en 3-13 Infuse l 16:09: over 15 Solmoon 00 minutes Do not exceed 4gm/day of acetaminop hen MEDICATION WASTE Product Size: 1000 mg Product Wasted: ___ mg Acetaminoph 2020-0 No Notes: Brennen oscar en 3-13 Infuse l 16:09: over 15 Addison 00 minutes Do not exceed 4gm/day of acetaminop hen MEDICATION WASTE Product Size: 1000 mg Product Wasted: ___ mg Acetaminoph 2020-0 No Notes: Brennen oscar en 3-13 Infuse l 16:09: over 15 Addison 00 minutes Do not exceed 4gm/day of [...] form: l (ANES) 15:52: INJ, ONCE, Keisha nn Stop date: 11/18/19 10:52:00 CDT calcium 2020-0 No Route: IV, Brennen oscar chloride 3-13 Drug form: l (ANES) 15:52: INJ, ONCE, Keisha nn Stop date: 11/18/19 10:52:00 CDT calcium 2020-0 No Route: IV, Brennen oscar chloride 3-13 Drug form: l (ANES) 15:52: INJ, ONCE, Keisha Stop date: 11/18/19 10:52:00 CDT calcium 2019-0 No Route: IV, Brennen oscar chloride 3-13 Drug form: l (ANES) 15:52: INJ, ONCE, Keisha Stop date: 11/18/19 10:52:00 CDT calcium 2019-0 No Route: IV, Brennen oscar chloride 3-13 Drug form: l (ANES) 15:52: INJ, ONCE, Keisha Stop date: 11/18/19 10:52:00 CDT protamine 2019-0 No Route: IV, Me moria (ANES) 10 - Drug form: l mg 15:17: INJ, date: 11/18/19 10:17:00 CDT, Stop date: 11/18/19 11:17:00 CDT protamine 2019-0 No Route: IV, Me moria (ANES) 10 - Drug form: l mg 15:17: INJ, date: 11/18/19 10:17:00 CDT, Stop date: 11/18/19 11:17:00 CDT protamine 2019-0 No Route: IV, Me moria (ANES) 10 -13 Drug form: l mg 15:17: INJ, date: 11/18/19 10:17:00 CDT, Stop date: 11/18/19 11:17:00 CDT protamine 2019-0 No Route: IV, Me moria (ANES) 10 -13 Drug form: l mg 15:17: INJ, date: 11/18/19 10:17:00 CDT, Stop date: 11/18/19 11:17:00 CDT protamine 2020-0 No Route: IV, Me moria (ANES) 10 3-13 Drug form: l mg 15:17: INJ, date: 11/18/19 10:17:00 CDT, Stop date: 11/18/19 [...] 3-13 Drug form: l 14:05: INJ, ONCE, Solomon 00 Stop date: 11/18/19 9:05:00 CDT ceFAZolin 2020-0 [...] ia 3-13 (Same as: l 11:36: Lopressor) Addison 00 Push over 2 minutes Sodium 2020-0 [...] Rate: To l 0.9% 11:36: prime line Addison (titrate) 00 and flush 250 mL remaining [...] Rate: To l 0.9% 11:36: prime line Addison (titrate) 00 and flush 250 mL remaining blood products., Dosing Weight 81.023, kg, Route: IV, Total Volume: 250, Start Date: 11/18/19 6:36:00 CDT, Duration: 1 day, Stop date: 11/19/19 6:35:00 CDT, Replace Every: 24 hr, 0 Metoprolol 2020-0 No Notes: Memor ia 3-13 (Same as: l 11:36: Lopressor) Addison 00 Push over 2 minutes Sodium 2020-0 No 250 mL, Memoria Chloride 3-13 Rate: To l 0.9% 11:36: prime line Addison (titrate) 00 and flush 250 mL remaining [...] Rate: To l 0.9% 11:36: prime line Addison (titrate) 00 and flush 250 mL remaining blood products., Dosing Weight 81.023, kg, Route: IV, Total Volume: 250, Start Date: 11/18/19 6:36:00 CDT, Duration: 1 day, Stop date: 11/19/19 6:35:00 CDT, Replace Every: 24 hr, 0 Januvia 2020-0 Yes PO, Daily, Brennen oscar 3-09 unknown l 21:02: dose, 0 Addison 00 Refill(s) Januvia 2020-0 Yes PO, Daily, Brennen oscar 3-09 unknown l 21:02: dose, 0 Solomon 00 Refill(s) Januvia 2020-0 Yes PO, Daily, Brennen oscar 3-09 unknown l 21:02: dose, 0 Solomon 00 Refill(s) Januvia 2020-0 Yes PO, Daily, Brennen oscar 3-09 unknown l 21:02: dose, 0 Addison 00 Refill(s) Januvia 2020-0 Yes PO, Daily, Brennen oscar 3-09 unknown l 21:02: dose, 0 Addison 00 Refill(s) Sodium 2020-0 No 250 mL, [...] Rate: To l 0.9% 20:03: prime line Addison (titrate) 00 and flush 250 mL remaining blood products., Dosing Weight 81.023, kg, Route: IV, Total Volume: 250, Start Date: 11/14/19 15:03:00 CDT, Duration: 1 day, Stop date: 11/15/19 15:02:00 CDT, Replace Every: 24 hr, 0 Sodium 2020-0 No 250 mL, Memoria Chloride 3-09 Rate: To l 0.9% 20:03: prime line Addison (titrate) 00 and flush 250 mL remaining [...] , Q6H, PRN Solomon Ipratropium 00 Wheezing, Buda # 30 ea, 1 0.167 MG/ML Refill(s) Inhalant Solution Fluticasone 2020-0 Yes NASAL, Brennen oscar propionate 3-09 Daily, 0 l 0.05 18:03: Refill(s) Addison MG/ACTUAT 00 Metered Dose Nasal [place] [Flonase] meloxicam 2020-0 Yes 15 mg = 1 Mem oria 15 mg oral 3-09 tab, PO, l tablet 18:03: Daily, # Solomon 00 30 tab, 0 Refill(s) busPIRone 2020-0 Yes 10 mg = 1 Mem oria 10 mg oral 3-09 tab, PO, l tablet 18:03: BID, 0 Addison 00 Refill(s) Esomeprazol 2020-0 Yes 40 mg [...] tab, PO, l oral 18:03: Daily, # Addison enteric 00 30 tab, 1 coated Refill(s) tablet montelukast 2020-0 Yes 10 mg = 1 M emoria 10 mg oral 3-09 tab, PO, l tablet 18:03: Bedtime, # Keisha nn 00 30 tab, 0 Refill(s) plecanatide 2020-0 Yes 3 mg = 1 Me moria 3 MG Oral 3-09 tab, PO, l Tablet 18:03: Daily, 0 Addison [Trulance] 00 Refill(s) Hydrochloro 2020-0 Yes 1 tab, PO, Memoria thiazide 25 3-09 Daily, # l MG / 18:03: 30 tab, 0 Solomon Losartan 00 Refill(s) Potassium 100 MG Oral Tablet Albuterol 2020-0 Yes 3 mL, Memoria 0.833 MG/ML 3- INHALATION l / 18:03: , Q6H, PRN Solomon Ipratropium 00 Wheezing, Buda # 30 ea, 1 0.167 MG/ML Refill(s) Inhalant Solution Fluticasone 2020-0 Yes NASAL, Brennen oscar propionate 3-09 Daily, 0 l 0.05 18:03: Refill(s) Solomon MG/ACTUAT 00 Metered Dose Nasal [place] [Flonase] meloxicam 2020-0 Yes 15 mg = 1 Mem oria 15 mg oral 3-09 tab, PO, l tablet 18:03: Daily, # Addison 00 30 tab, 0 Refill(s) busPIRone 2020-0 [...] tab, PO, l Tablet 18:03: Daily, 0 Addison [Trulance] 00 Refill(s) Hydrochloro 2020-0 Yes 1 tab, PO, Memoria thiazide 25 3-09 Daily, # l MG / 18:03: 30 tab, 0 Addison Losartan 00 Refill(s) Potassium 100 MG Oral Tablet Albuterol 2020-0 Yes 3 mL, Memoria 0.833 MG/ML 3-09 INHALATION l / 18:03: , Q6H, PRN Addison Ipratropium 00 Wheezing, Buda # 30 ea, 1 0.167 MG/ML Refill(s) Inhalant Solution Fluticasone 2020-0 Yes NASAL, Brennen oscar propionate 3-09 Daily, 0 l 0.05 18:03: Refill(s) Addison MG/ACTUAT 00 Metered Dose Nasal [place] [Flonase] meloxicam 2020-0 Yes 15 mg = [...] microgram l Oral 18:03: = 1 cap, Addison Capsule 00 PO, BID, 0 [Amitiza] Refill(s) [...] , Q6H, PRN Solomon Ipratropium 00 Wheezing, Buda # 30 ea, 1 0.167 MG/ML Refill(s) Inhalant Solution Fluticasone 2020-0 Yes NASAL, Brennen oscar propionate 3-09 Daily, 0 l 0.05 18:03: Refill(s) Addison MG/ACTUAT 00 Metered Dose Nasal [place] [Flonase] meloxicam 2020-0 Yes 15 mg = 1 Mem oria 15 mg oral 3-09 tab, PO, l tablet 18:03: Daily, # Addison 00 30 tab, 0 Refill(s) busPIRone 2020-0 [...] tab, PO, l oral 18:03: Daily, # Addison enteric 00 30 tab, 1 coated Refill(s) [...] l MG / 18:03: 30 tab, 0 Addison Losartan 00 Refill(s) Potassium 100 MG Oral Tablet Albuterol 2020-0 Yes 3 mL, Memoria 0.833 MG/ML 3- INHALATION l / 18:03: , Q6H, PRN Addison Ipratropium 00 Wheezing, Buda # 30 ea, 1 0.167 MG/ML Refill(s) Inhalant Solution Fluticasone 2020-0 Yes NASAL, Brennen oscar propionate 3-09 Daily, 0 l 0.05 18:03: Refill(s) Addison MG/ACTUAT 00 Metered Dose Nasal [place] [Flonase] meloxicam 2020-0 Yes 15 mg = 1 Mem oria 15 mg oral 3-09 tab, PO, l tablet 18:03: Daily, # Addison 00 30 tab, 0 Refill(s) busPIRone 2020-0 Yes 10 mg = 1 Mem oria 10 mg oral 3-09 tab, PO, l tablet 18:03: BID, 0 Addison 00 Refill(s) Esomeprazol 2020-0 Yes 40 mg [...] tab, PO, l oral 18:03: Daily, # Addison enteric 00 30 tab, 1 coated Refill(s) tablet montelukast 2020-0 Yes 10 mg = 1 M emoria 10 mg oral 3-09 tab, PO, l tablet 18:03: Bedtime, # Keisha nn 00 30 tab, 0 Refill(s) plecanatide 2019-0 Yes 3 mg = 1 Me moria 3 MG Oral 3-09 tab, PO, l Tablet 18:03: Daily, 0 Solomon [Trulance] 00 Refill(s) HYDROcodone 2017-09 Yes 1{tbl} Q.26706134 Take 1 [facility] -acetaminop -[id number] hen (NORCO) 21:45: 3D mouth 3 [facility] 7.5-325 mg 51 (three) l per tablet times a day. methocarbam 2017-09 Yes 750mg Q.68356247 Take 750 [facility] ol -[id number] (ROBAXIN) 21:45: 3D mouth [...] l Pure Magnesium albuterol 2017-09 Yes 1{puff} Q.12209314 Inhale 1 [facility] (PROAIR -[id number] HFA,PROVENT 21:45: 3D (three) [facility] [place] 51 times a l HFA,VENTOLI day as N HFA) 90 needed for mcg/actuati wheezing on inhaler or shortness of breath. meloxicam 2017-09 Yes 15mg QD Take 15 mg Me thodi (MOBIC) [address] mg tablet 21:45: daily. Hospit a 51 l DULoxetine 2017-09 Yes 20mg QD Take 20 mg M ethodi (CYMBALTA) [address] 20 MG 21:45: daily. [facility]osp[facility] capsule 51 l HYDROcodone 2017-09 Yes 1{tbl} Q.90218907 Take 1 [facility] -acetaminop 1-[id number] hen (NORCO) 15:45: 3D mouth 3 [facility] 7.5-325 mg 51 (three) l per tablet times a day. methocarbam 2017-09 Yes 750mg Q.[id number] Take 750 [facility] ol 1-[id number] (ROBAXIN) 15:45: 3D mouth 3 Hospi ta 500 MG 51 (three) l tablet times a day. Takes 500 mg 1.5 TAB. (750 mg) HYDROcodone 2017-09 Yes 1{tbl} Q.69244771 Take 1 [facility] -acetaminop 1-[id number] hen (NORCO) 15:45: 3D mouth 3 [facility] le[facility]ardo 7.5-325 mg 51 (three) l per tablet times a day. methocarbam 2017-09 Yes 750mg Q.30386199 Take 750 [facility] ol 1-[id number] (ROBAXIN) 15:45: 3D mouth [...] l Pure Magnesium albuterol 2017-09 Yes 1{puff} Q.23406819 Inhale 1 [facility] (PROAIR -[id number] HFA,PROVENT 15:45: 3D (three) [...] MG 15:45: daily. Hospita capsule 51 l gabapentin 2017-09 Yes 600mg QD Take 600 [...] l Pure Magnesium albuterol 2017-09 Yes 1{puff} Q.13988730 Inhale 1 [facility] (PROAIR -[id number] HFA,PROVENT 15:45: 3D (three) [...] capsule 51 l HYDROcodone 2017-09 Yes 1{tbl} Q.17658797 Take 1 [facility] -acetaminop -[id number] hen (NORCO) 15:45: 3D mouth 3 [facility] 7.5-325 mg 51 (three) l per tablet times a day. methocarbam 2017-09 Yes 750mg Q.77366384 Take 750 [facility] ol -[id number] (ROBAXIN) 15:45: 3D mouth [...] 1{tbl} QD Take 1 Me thodi drochloroth -[address] iazide 15:45: mouth Hospita [...] l Pure Magnesium albuterol 2017-09 Yes 1{puff} Q.50570929 Inhale 1 [facility] (PROAIR -[id number] HFA,PROVENT 15:45: 3D (three) [...] capsule 51 l HYDROcodone 2017-09 Yes 1{tbl} Q.14300710 Take 1 [facility] -acetaminop -[id number] hen (NORCO) 15:45: 3D mouth 3 [facility] le[facility]ardo 7.5-325 mg 51 (three) l per tablet times a day. methocarbam 2017-09 Yes 750mg Q.[id number] Take 750 [facility] ol -[id number] (ROBAXIN) 15:45: 3D mouth [...] l Pure Magnesium albuterol 2017-09 Yes 1{puff} Q.39262309 Inhale 1 [facility] (PROAIR -[id number] HFA,PROVENT 15:45: 3D (three) [...] capsule 51 l HYDROcodone 2017-09 Yes 1{tbl} Q.68125618 Take 1 [facility] -acetaminop -[id number] hen (NORCO) 15:45: 3D mouth 3 [facility] le[facility]ardo 7.5-325 mg 51 (three) l per tablet times a day. methocarbam 2017-09 Yes 750mg Q.[id number] Take 750 Method[facility] ol 1-[id number] (ROBAXIN) 15:45: 3D mouth [...] l Pure Magnesium albuterol 2017-09 Yes 1{puff} Q.85973768 Inhale 1 [facility] (PROAIR -[id number] HFA,PROVENT 15:45: 3D (three) [...] capsule 51 l HYDROcodone 2017-09 Yes 1{tbl} Q.18211706 Take 1 [facility] -acetaminop 09-[id number] hen (NORCO) 15:45: 3D mouth 3 Hos leonardo 7.5-325 mg 51 (three) l per tablet times a day. methocarbam 2017-09 Yes 750mg Q.[id number] Take 750 Method[facility] ol -[id number] (ROBAXIN) 15:45: 3D mouth [...] l Pure Magnesium albuterol 2017-09 Yes 1{puff} Q.[id number] Inhale 1 [facility] (PROAIR 1-[id number] HFA,PROVENT 15:45: 3D (three) [...] capsule 51 l HYDROcodone 2017-09 Yes 1{tbl} Q.[id number] Take 1 [facility] -acetaminop [id number] hen (NORCO) 15:45: 3D mouth 3 Hos leonardo 7.5-325 mg 51 (three) l per tablet times a day. methocarbam 2017-09 Yes 750mg Q.[id number] Take 750 Methodi ol -[id number] (ROBAXIN) 15:45: 3D mouth [...] 1{tbl} QD Take 1 Me thodi drochloroth -[address] iazide 15:45: mouth Hospita [...] l Pure Magnesium albuterol 2017-09 Yes 1{puff} Q.19515113 Inhale 1 [facility] (PROAIR -[id number] HFA,PROVENT 15:45: 3D (three) [...] capsule 51 l HYDROcodone 2017-09 Yes 1{tbl} Q.[id number] Take 1 [facility] -acetaminop -[id number] hen (NORCO) 15:45: 3D mouth 3 Hos leonardo 7.5-325 mg 51 (three) l per tablet times a day. methocarbam 2017-09 Yes 750mg Q.[id number] Take 750 Methodi ol 1-[id number] (ROBAXIN) 15:45: 3D mouth [...] 1{tbl} QD Take 1 Me thodi drochloroth -[address] iazide 15:45: mouth Hospita [...] l Pure Magnesium albuterol 2017-09 Yes 1{puff} Q.[id number] Inhale 1 [facility] (PROAIR 1-[id number] HFA,PROVENT 15:45: 3D (three) [...] spasms for up to 40 doses. cyclobenzap Yes 10mg Take 1 [facility] [...] 1 tablet Common HCl HCl [facility] Immunizations Ordered Immunization Filled Immunization Date Status Commen ts Source Name Name SARS-COV-2 COVID-19 2021-06-21 Completed [facility] PFIZER VACCINE 00:00:00 [facility] SARS-COV-2 COVID-19 2021-06-21 Completed [facility] of PFIZER VACCINE 00:00:00 [facility] SARS-COV-2 COVID-19 2021-06-21 Completed [facility] of PFIZER VACCINE 00:00:00 [facility] SARS-COV-2 COVID-19 2021-06-21 Completed [facility] of PFIZER VACCINE 00:00:00 [facility] SARS-COV-2 COVID-19 2021-06-21 Completed [facility] of PFIZER VACCINE 00:00:00 [facility] SARS-COV-2 COVID-19 2021-06-21 Completed [facility] of PFIZER VACCINE 00:00:00 [facility] SARS-COV-2 COVID-19 2021-06-21 Completed [facility] of PFIZER VACCINE 00:00:00 [facility] SARS-COV-2 COVID-19 2021-06-21 Completed [facility] of PFIZER VACCINE 00:00:00 [facility] SARS-COV-2 COVID-19 2021-05-31 Completed [facility] of PFIZER VACCINE 00:00:00 [facility] SARS-COV-2 COVID-19 2021-05-31 Completed [facility] of PFIZER VACCINE 00:00:00 [facility] SARS-COV-2 COVID-19 2021-05-31 Completed [facility] of PFIZER VACCINE 00:00:00 [facility] SARS-COV-2 COVID-19 2021-05-31 Completed [facility] of PFIZER VACCINE 00:00:00 [facility] SARS-COV-2 COVID-19 2021-05-31 Completed [facility] of PFIZER VACCINE 00:00:00 [facility] SARS-COV-2 COVID-19 2021-05-31 Completed [facility] of PFIZER VACCINE 00:00:00 [facility] SARS-COV-2 COVID-19 2021-05-31 Completed [facility] of PFIZER VACCINE 00:00:00 [facility] SARS-COV-2 COVID-19 2021-05-31 Completed [facility] of PFIZER VACCINE 00:00:00 [facility] [place] Sars-cov-2 2020-11-15 [facility] [...] h Free 18-64 YRS Influenza, 2020-06-25 Completed [facility] quadrivalent, 00:00:00 injectable, preservative free Influenza, 2020-06-25 Completed [facility] quadrivalent, 00:00:00 injectable, preservative free Influenza, 2020-06-25 Completed [facility] quadrivalent, 00:00:00 injectable, preservative free Influenza, 2020-06-25 Completed [facility] quadrivalent, 00:00:00 injectable, preservative free Influenza, 2020-06-25 Completed [facility] recombinant, 00:00:00 quadrivalent, injectable, preservative free Influenza, 2020-06-25 Completed [facility] recombinant, 00:00:00 quadrivalent, injectable, preservative free Influenza, 2020-06-25 Completed [facility] quadrivalent, 00:00:00 injectable, preservative free Influenza, 2020-06-25 Completed [facility] quadrivalent, 00:00:00 injectable, preservative free Influenza High Dose 2020-05-10 Completed [facility] Quad 00:00:00 [facility] Influenza High Dose 2020-05-10 Completed [facility] of 00:00:00 [facility] Influenza High Dose 2020-05-10 Completed [facility] Quad 00:00:00 [facility] Influenza High Dose 2020-05-10 Completed [facility] of 00:00:00 [facility] Influenza High Dose 2020-05-10 Completed [facility] Quad 00:00:00 [facility] Influenza High Dose 2020-05-10 Completed [facility] of 00:00:00 [facility] Influenza High Dose 2020-05-10 Completed [facility] Quad 00:00:00 [facility] Influenza High Dose 2020-05-10 Completed [facility] of 00:00:00 [facility] Influenza High Dose 2020-05-10 Completed [facility] Quad 00:00:00 [facility] Influenza High Dose 2020-05-10 Completed [facility] of 00:00:00 [facility] Influenza High Dose 2020-05-10 Completed [facility] Quad 00:00:00 [facility] Influenza High Dose 2020-05-10 Completed [facility] of 00:00:00 [facility] Influenza High Dose 2020-05-10 Completed [facility] Quad 00:00:00 [facility] Influenza High Dose 2020-05-10 Completed [facility] of 00:00:00 [facility] Influenza High Dose 2020-05-10 Completed [facility] Quad 00:00:00 [facility] Influenza High Dose 2020-05-10 Completed [facility] 00:00:00 [facility] Influenza, High Dose 2020-05-10 [facility] [...] 2019-08-20 Completed [facility] Recombinant 00:00:00 [facility] Zoster Vaccine 2019-08-20 Completed [facility] Recombinant 00:00:00 [facility] Zoster Vaccine 2019-08-20 Completed [facility] Recombinant 00:00:00 [facility] Zoster Vaccine 2019-08-20 Completed [facility] Recombinant 00:00:00 [facility] Zoster Vaccine 2019-08-20 Completed [facility] Recombinant 00:00:00 [facility] Zoster Vaccine 2019-08-20 Completed [facility] Recombinant 00:00:00 [facility] Zoster Vaccine 2019-08-20 Completed [facility] Recombinant 00:00:00 [facility] Zoster Vaccine 2019-08-20 Completed [facility] Recombinant 00:00:00 [facility] Zoster, Recombinant 2019-08-[facility] [...] MMR 2019-04-30 Completed [facility] 00:00:00 [facility] MMR 2019-04-30 Completed [facility] 00:00:00 [facility] MMR 2019-04-30 Completed [facility] 00:00:00 [facility] MMR 2019-04-30 Completed [facility] 00:00:00 [facility] MMR 2019-04-30 Completed [facility] 00:00:00 [facility] MMR 2019-04-30 Completed [facility] 00[facility]00:00 [facility] MMR 2019-04-30 Completed [facility] 00[facility]00:00 [facility] MMR 2019-04-30 Completed [facility] 00[facility]:00 [facility] MMR 2019-04-30 [facility] 00:00:00 MMR 2019-04-30 [facility] 00:00:00 MMR 2019-04-30 [facility] 00:00:00 MMR 2019-04-30 [facility] 00:00:00 MMR 2019-04-30 Com[facility] 00:00:00 MMR 2019-04-30 Com[facility] 00:00:00 MMR 2019-04-30 [facility]pleted [facility] 00:00:00 MMR 2019-04-30 [facility]pleted [facility] 00:[facility]:00 Zoster Vaccine 2019 Completed [facility] Recombinant 00:00:00 [facility] Zoster Vaccine 2019 Completed [facility] Recombinant 00:00:00 [facility] Zoster Vaccine 2019 Completed [facility] Recombinant 00:00:00 [facility] Zoster Vaccine 2019 Completed [facility] Recombinant 00:00:00 [facility] Zoster Vaccine 2019 Completed [facility] Recombinant 00:00:00 [facility] Zoster Vaccine 2019 Completed [facility] Recombinant 00:00:00 [facility] Zoster Vaccine 2019 Completed [facility] Recombinant 00:00:00 [facility] Zoster Vaccine 2019 Completed [facility] Recombinant 00:00:00 [facility] Zoster, Recombinant 2019 [facility] [...] Com[facility] Vaccine 00:00:00 [facility] Influenza Virus 2009-08-27 Completed Universit y of Vaccine 00:00:00 [facility] Influenza Virus 2009-08-27 Completed Universit y of Vaccine 00:00:00 [facility] Influenza Virus 2009-08-27 Completed Universit y of Vaccine 00:00:00 [facility] Influenza Virus 2009-08-27 Completed Universit y of Vaccine 00:00:00 [facility] Influenza Virus 2009-08-27 Completed Universit y of Vaccine 00:00:00 [facility] Influenza Virus 2009-08-27 Completed Universit y of Vaccine 00:00:00 [facility] Influenza Virus 2009-08-27 Completed Universit y of Vaccine 00:00:00 [facility] Influenza, 2009-08-27 Completed [facility] Unspecified 00:00:00 [...] 21:30:00 125 mm[Hg] Univer sity of pressure [facility] Diastolic blood 2022-09-14 21:30:00 58 mm[Hg] Unive rsity of pressure [facility] Heart rate 2022-09-14 21:30:00 70 /min Universi ty of [facility] Respiratory rate 2022-09-14 21:30:00 13 /min Univ ersity of [facility] Oxygen saturation in 2022-09-14 21:30:00 91 /min [facility] Arterial blood by [facility] Pulse oximetry Branch Body temperature 2022-09-14 17:10:00 36.89 Kelly Univ [facility] Body height 2022-09-14 17:10:00 162.6 cm [facility] Body weight 2022-09-14 17:10:00 84.369 kg [facility] BMI 2022-09-14 17:10:00 31.93 kg/m2 Universi ty of [facility] Branch Systolic blood 2022-06-29 17:21:00 183 mm[Hg] Univer sity of pressure [facility] Diastolic blood 2022-06-29 17:21:00 98 mm[Hg] Unive rsity of pressure [facility] Branch Heart rate 2022-06-29 17:21:00 73 /min Universi ty of [facility] Branch Body temperature 2022-06-29 17:21:00 36.72 Kelly Univ ersity of [facility] Respiratory rate 2022-06-29 17:21:00 22 /min Univ ersity of [facility] Body height 2022-06-29 17:21:00 162.6 cm [facility] Body weight 2022-06-29 17:21:00 86.183 kg [facility] BMI 2022-06-29 17:21:00 32.61 kg/m2 Universi ty of [facility] Branch Oxygen saturation in 2022-06-29 17:21:00 97 /min University Arterial blood by [facility] Pulse oximetry Branch Systolic blood 2022-05-06 15:23:00 156 mm[Hg] Univer sity of [facility] Diastolic blood 2022-05-06 15:23:00 72 mm[Hg] Unive rsity of [facility] Heart rate 2022-05-06 15:23:00 72 /min [facility] Body temperature 2022-05-06 15:23:00 35.72 Kelly Univ ersity of [facility] Branch Body height 2022-05-06 15:23:00 162.6 cm [facility] Body weight 2022-05-06 15:23:00 89.359 kg [facility] BMI 2022-05-06 15:23:00 33.81 kg/m2 Universi ty of [facility] Branch Systolic blood 2021-09-11 20:47:00 139 mm[Hg] [facility] [...] [facility]alt h Heart Rate 2019-11-21 15:32:00 [facility] Respitory Rate 2019-11-21 15:32:00 [facility] Systolic (mm Hg) 2019-11-21 15:32:00 Brennen rial Solomon Diastolic (mm Hg) 2019-11-21 15:32:00 Mem orial [facility] Heart Rate 2019-11-21 12:57:00 [facility] Respitory Rate 2019-11-21 12:57:00 [facility] Systolic (mm Hg) 2019-11-21 12:57:00 Brennen rial [facility] Diastolic (mm Hg) 2019-11-21 12:57:00 Mem orial [facility] Heart Rate 2019-11-21 08:37:00 [facility] Respitory Rate 2019-11-21 08:37:00 Memori [facility] Systolic (mm Hg) 2019-11-21 08:37:00 Brennen rial [facility] Diastolic (mm Hg) 2019-11-21 08:37:00 Mem orial [facility] Temperature Oral (F) 2019-11-18 12:00:00 98.3 F [facility] Weight 2019-11-18 11:45:00 [facility] BMI Calculated 2019-11-18 11:45:00 [facility] Height 2019-11-14 19:59:00 162.56 cm [facility] Systolic (mm Hg) 2019-11-14 17:59:00 Brennen rial [facility] Diastolic (mm Hg) 2019-11-14 17:59:00 Mem orial [facility] Heart Rate 2019-11-14 17:59:00 [facility] Height 2019-11-14 17:59:00 162.56 cm [facility] Weight 2019-11-14 17:59:00 [facility] BMI Calculated 2019-11-14 17:59:00 Mem[facility] Procedures Procedure Date / Time Performing Clinician Source Performed HB CREATININE SERUM/BLOOD 2022-10-21 15:31:00 Pradip Yung [facility] FOR IMAGING Medical Branch CT ABDOMEN PELVIS W 2022-10-21 14:52:42 Pradip Yung [facility] CONTRAST [facility] Branch CT ABDOMEN PELVIS W 2022-09-14 19:16:14 Mari Mitchell [facility] CONTRAST Medical Branch LIPASE 2022-09-14 18:47:00 Mari Mitchell [facility] HEPATIC FUNCTION PANEL 2022-09-14 18:47:00 Mari Mitchell [facility] ([id number]) (ALB,T.PRO,BILI Medical Branch T,BU/BC,ALT,AST,ALK PHOS) BASIC METABOLIC PANEL 2022-09-14 18:47:00 Mari Mitchell [facility] (NA, K, CL, CO2, GLUCOSE, Medica l Branch BUN, CREATININE, CA) CBC WITH DIFF 2022-09-14 18:47:00 Mari Mitchell [facility] URINALYSIS 2022-09-14 18:47:00 Mari Mitchell [facility] CONSENT/REFUSAL FOR 2022-09-14 17:08:52 Doctor Areli, [facility] DIAGNOSIS AND TREATMENT [facility] REFERRAL- 2022-08-26 06:01:00 Doctor Areli, [facility] REQUEST/RESPONSE [facility] FL SMALL BOWEL SERIES 2022-07-02 15:57:31 Pradip Yung [facility] ASSIGNMENT OF BENEFITS 2022-06-29 18:10:12 Doctor Unassigned, [facility] CREATINE KINASE 2022-06-29 17:56:00 [facility] MAGNESIUM 2022-06-29 17:56:00 [facility] BASIC METABOLIC PANEL 2022-06-29 17:56:00 Yobany [facility] (NA, K, CL, CO2, GLUCOSE, Medica l Branch BUN, CREATININE, CA) CONSENT/REFUSAL FOR 2022-06-29 17:15:25 Doctor Unacherie, [facility] DIAGNOSIS AND TREATMENT [facility] [place] XR LUMBAR SPINE 2 VW 2022-05-06 15:32:47 Armond Montoya [facility] REFERRAL- 2022-04-25 05:01:00 Doctor Areli, [facility] REQUEST/RESPONSE [facility] [place] MRI LUMBAR SPINE WO 2021-03-19 13:02:57 Josh Bennett [facility]alth CONTRAST SC ARTHROCENTESIS 2021-02-27 14:41:46 [facility] ASPIR&/INJ MAJOR JT/BURSA W/O US XR LUMBAR SPINE AP 2020-11-13 14:56:47 Royce Rivers [facility] LATERAL FLEXION AND EXTENSION Knee [facility]ison replacement<sup>1</sup> Gallbladder operation [facility] Rotator cuff repair [facility] Lumbar laminectomy and [facility] excision of intradural spinal lesion Hysterectomy [facility] Appendectomy [facility] Cataract extraction [facility] Plan of Care Planned Activity Planned Date Details Comments Source Future Scheduled 2022-08-31 COVID-19 VACCINE (#[facility]) [facility] Test 04:20:34 [code = COVID-19 VACCINE (#1)] Future Scheduled 2022-08-31 [facility] C [facility] Test 04:20:34 (procedure) [code = 221734894] Future Scheduled 2022-08-31 [facility]34 malignant neoplasm of cervix (procedure) [code = 936946640] Future Scheduled 2022-08-31 [facility] 04:20:34 SCREENING [code = BREAST CANCER SCREENING] Future Scheduled 2022-08-31 COLONOSCOPY SCREENING [facility] 04:20:34 [code = COLONOSCOPY SCREENING] Future Scheduled 2022-08-31 [facility]ENZA VACCINE [facility] Test 04:20:34 [code = INFLUENZA VACCINE] Future Scheduled 2022-08-31 COVID-19 VACCINE (#1) [facility] 04:20:34 [code = COVID-19 VACCINE (#1)] Future Scheduled 2022-08-31 [facility] C [facility] Test 04:20:34 (procedure) [code = 298571364] Future Scheduled 2022-08-31 [facility] 04:20:34 malignant neoplasm of cervix (procedure) [code = 905977724] Future Scheduled 2022-08-31 [facility] Test 04:20:34 SCREENING [code = BREAST CANCER SCREENING] Future Scheduled 2022-08-31 [facility]OSCOPY [facility]ING [facility] 04:20:34 [code = COLONOSCOPY SCREENING] Future Scheduled 2022-08-31 [facility]ZA [facility]ACCINE [facility] Test 04:20:34 [code = INFLUENZA VACCINE] Future Scheduled 2022-08-31 COVID-19 VACCINE (#1) [facility] 04:20:34 [code = COVID-19 VACCINE (#1)] Future Scheduled 2022-08-31 [facility] Test 04:20:34 (procedure) [code = 476470956] Future Scheduled 2022-08-31 [facility] 04:20:34 malignant neoplasm of cervix (procedure) [code = 232948652] Future Scheduled 2022-08-31 [facility] Test 04:20:34 SCREENING [code = BREAST CANCER SCREENING] Future Scheduled 2022-08-31 [facility] 04:20:34 [code = COLONOSCOPY SCREENING] Future Scheduled 2022-08-31 INFLUENZA VACCINE Method [facility] Test 04:20:34 [code = INFLUENZA VACCINE] Future Scheduled 2022-05-29 HEPATITIS B VACCINES Met [facility] Test 07:48:01 (1 of 3 - 3-dose series) [code = HEPATITIS B VACCINES (1 of 3 - 3-dose series)] Future Scheduled 2022-05-29 COVID-19 VACCINE (#1) [facility] Test 07:48:01 [code = COVID-19 VACCINE (#1)] Future Scheduled 2022-05-29 Hepatitis C screening [facility] Test 07:48:01 (procedure) [code = 065385224] Future Scheduled 2022-05-29 Screening for [facility] Test 07:48:01 malignant neoplasm of cervix (procedure) [code = 551030944] Future Scheduled 2022-05-29 BREAST CANCER [facility] Test 07:48:01 SCREENING [code = BREAST CANCER SCREENING] Future Scheduled 2022-05-29 COLONOSCOPY SCREENING [facility] Test 07:48:01 [code = COLONOSCOPY SCREENING] Future Scheduled 2022-05-29 INFLUENZA VACCINE [facility] Test 07:48:01 [code = INFLUENZA VACCINE] Future Scheduled 2022-05-29 HEPATITIS B VACCINES [facility] Test 07:48:01 (1 of 3 - 3-dose series) [code = HEPATITIS B VACCINES (1 of 3 - 3-dose series)] Future Scheduled 2022-05-29 COVID-19 VACCINE (#1) [facility] Test 07:48:01 [code = COVID-19 VACCINE (#1)] Future Scheduled 2022-05-29 Hepatitis C screening [facility] Test 07:48:01 (procedure) [code = 103620989] Future Scheduled 2022-05-29 [facility] 07:48:01 malignant neoplasm of cervix (procedure) [code = 864482143] Future Scheduled 2022-05-29 BREAST CANCER [facility] Test 07:48:01 SCREENING [code = BREAST CANCER SCREENING] Future Scheduled 2022-05-29 COLONOSCOPY SCREENING [facility] Test 07:48:01 [code = COLONOSCOPY SCREENING] Future Scheduled 2022-05-29 INFLUENZA VACCINE [facility] Test 07:48:01 [code = INFLUENZA VACCINE] Future Scheduled 2022-05-06 HEPATITIS B VACCINES Met [facility] Test 10:13:08 (1 of 3 - 3-dose series) [code = HEPATITIS B VACCINES (1 of 3 - 3-dose series)] Future Scheduled 2022-05-06 COVID-19 VACCINE (#1) [facility] Test 10:13:08 [code = COVID-19 VACCINE (#1)] Future Scheduled 2022-05-06 Hepatitis C screening [facility] Test 10:13:08 (procedure) [code = 901604117] Future Scheduled 2022-05-06 Screening for [facility] Test 10:13:08 malignant neoplasm of cervix (procedure) [code = 099465722] Future Scheduled 2022-05-06 BREAST CANCER [facility] Test 10:13:08 SCREENING [code = BREAST CANCER SCREENING] Future Scheduled 2022-05-06 COLONOSCOPY SCREENING [facility] Test 10:13:08 [code = COLONOSCOPY SCREENING] Future Scheduled 2022-05-06 INFLUENZA VACCINE [facility] Test 10:13:08 [code = INFLUENZA VACCINE] Future Scheduled 2021-09-19 COVID-19 VACCINE (1) [facility] Test 04:08:39 [code = COVID-19 VACCINE (1)] Future Scheduled 2021-09-19 Hepatitis C screening [facility] Test 04:08:39 (procedure) [code = 107415760] Future Scheduled 2021-09-19 Screening for [facility] Test 04:08:39 malignant neoplasm of cervix (procedure) [code = 577887375] Future Scheduled 2021-09-19 [facility] 04:08:39 SCREENING [code = BREAST CANCER SCREENING] Future Scheduled 2021-09-19 COLONOSCOPY SCREENING [facility] Test 04:08:39 [code = COLONOSCOPY SCREENING] Future Scheduled 2021-09-19 INFLUENZA VACCINE [facility] Test 04:08:39 [code = INFLUENZA VACCINE] Future Scheduled 2021-09-19 COVID-19 VACCINE (1) [facility] Test 04:08:39 [code = COVID-19 VACCINE (1)] Future Scheduled 2021-09-19 Hepatitis C screening [facility] Test 04:08:39 (procedure) [code = 321404839] Future Scheduled 2021-09-19 [facility] 04:08:39 malignant neoplasm of cervix (procedure) [code = 527273265] Future Scheduled 2021-09-19 [facility] (procedure[facility] [code = 827348883] Future [facility]uled [facility] Test malignant neoplasm of cervix (procedure) [code = 683477730] Future Scheduled [facility] SCREENING [code = BREAST CANCER SCREENING] Future Scheduled [facility] [code = COLONOSCOPY SCREENING] Future Scheduled INFLUENZA VACCINE [facility] Test [code = INFLUENZA VACCINE] Encounters Start End Encounter Admission Attending Care Care Encounter Source Date/Time Date/Time Type Type Clinicians Facility Department ID 2022-06-09 Outpatient De Anda, [facility] [id number] Common 14:43:01 Baljeet [facility] 2022-03-11 Outpatient De Anda, [facility] [id number] Common 07:59:00 Baljeet [facility] 2022-03-07 [facility] [id number] Common 09:35:01 Baljeet [facility] 2022-02-20 Outpatient De Anda, [facility] [id number] Common 15:57:00 Baljeet [facility] 2022-02-07 Outpatient GIANNA ROBERTS [facility]01 13:35:33 [facility] 2021-10-02 Outpatient De Anda, [facility] [id number] Common 14:26:56 Baljeet 43111 [facility] 2021-10-02 Outpatient De Anda, [facility] [id number] Common 14:26:22 Baljeet 06589 [facility] 2021-10-02 Outpatient De Anda, [facility] [id number] Common 14:17:54 Baljeet 66185 [facility] 2021-10-02 Outpatient Guerrero, [facility] [id number] Common 14:09:58 Vira 57256 [facility] 2021-10-02 Outpatient Millender, [facility] [id number] 11:05:50 Tawana 89973 [facility] 2021-10-02 Outpatient Millender, [facility] [id number] Common 11:03:36 Tawana 30967 [facility] 2021-07-09 Emergency [facility] [id number] Univers 03:44:02 ity [facility] 2021-07-08 Emergency [facility] [id number] Univers 21:59:46 [facility] 2021-07-06 Inpatient [facility] [id number] Univers 00:05:05 [facility] 2021-07-05 Outpatient [facility] [id number] Univers [facility]:33:[facility]22-10-21 2022-10-21 [facility] [id number] Univers 07:37:09 23:59:00 [facility]22-10-21 2022-10-21 [facility] Yung, [facility] [id number] Univers 07:37:09 23:59:00 Encounter Pradip SOLER [id number] ity [facility] [id number] [facility] [id number] [place] [address] Branch 2022-09-14 2022-09-14 Emergency [facility] [id number] Univers 11:11:00 16:00:00 , MARI ity of [facility] 2022-09-14 2022-09-14 Emergency [facility] [id number] Univers 11:11:00 16:00:00 , Mari SOLER [id number] i ty of [place] 4.2.7.2.686 [facility] [id number] [facility] [address] [place] 2022-08-26 2022-08-26 Orders Doctor ROYCE [id number] Univers 00:00:00 00:00:00 Only Unassigned, AVA [id number] ity of [place] [facility] [address] [place] [address] [id number] [facility] 009 Branch 2022-07-02 2022-07-02 Outpatient R [facility] [id number] Univers 09:02:16 23:59:00 PRADIP ity of [facility] 2022-07-02 2022-07-02 [facility] [id number] Univers 09:02:16 23:59:00 Encounter Pradip SOLER [id number] ity [facility] 4.2.7.2.[address] [place] [address] [id number] [facility] [address] [place] 2022-06-29 2022-06-29 Emergency X [facility] ERT [id number] Univers 12:22:00 14:19:00 ZACKARY ity [facility] 2022-06-29 2022-06-29 Emergency [facility] [id number] Univers 12:22:00 14:19:00 Zackary KARLENE 350.1.13.10 i ty of [place] 4.2.7.2.686 [facility] [id number] [facility] [address] [place] 2022-05-06 2022-05-06 [facility] 1.2.840.114 [id number] Univers 10:25:00 23:59:00 Encounter Armond AGUILAR [id number] ity of [facility] 4.2.7.2.[address] [facility] s CENTER AT [id number] Tn natalee DUKES 809 [facility] 2022-05-06 2022-05-06 Outpatient [facility] [id number] Univers 10:00:00 15:17:56 ALE ity [facility] 2022-05-06 2022-05-06 Outpatient [facility] [id number] Univers 10:00:00 15:17:56 ALE ity [facility] 2022-05-06 2022-05-06 [facility] 1.2.840.114 [id number] Univers 10:00:00 10:20:00 Visit [facility] [id number] ity [facility] 4.2.7.2.686 [facility] CENTER AT [id number] Tn natalee DUKES 198 [facility] 2022-05-06 2022-05-06 Outpatient Christine [facility] [id number] Univers 10:00:00 10:00:00 [facility] 2022-05-02 2022-05-02 Outpatient Christine [facility] [id number] Univers 08:29:48 23:59:00 [facility] 2022-05-02 2022-05-02 Outpatient [facility] [id number] Univers 08:45:00 09:33:27 [facility] 2022-05-02 2022-05-02 [facility] 1.2.840.114 [id number] Univers 08:45:00 09:00:00 Visit [facility] [id number] it y of [place] 4.2.7.2.686 Claudio as JOANN?BLEA [id number] Tn natalee PAUL 198 [facility] OFFICE [facility] 2022-05-02 2022-05-02 Outpatient Christine [facility] [id number] Univers 08:45:00 08:45:00 [facility] 2022-04-25 2022-04-25 Orders Doctor CRANE 1.2.840.114 [id number] Univers 00:00:00 00:00:00 Only Unassigned, AVA 350.1.13.10 ity of [place] [facility] 4.2.7.2.686 Claudio as [id number] [facility] 009 [address] 2022-04-23 2022-04-23 Outpatient R MIAH [facility] [id number] Univers 13:00:00 13:00:00 PRICILLA ity [facility] 2022-03-13 2022-03-13 Outpatient R NAVJOT [facility] [id number] Univers 11:57:09 23:59:00 PRADIP ity [facility] 2022-03-13 2022-03-13 [facility] 1.2.840.114 [id number] Univers 11:57:09 23:59:00 Encounter Pradip SOLER 350.1.13.10 ity of [facility] 4.2.7.2.[place] [id number] [facility] [address] [place] 2022-02-08 2022-02-08 Emergency X TRENA, [facility] ERT [id number] Univers 18:45:00 21:46:00 [facility] 2022-02-08 2022-02-08 Emergency Trena, [facility] 1.2.840.114 [id number] Univers 18:45:00 21:46:00 Evangelista B KARLENE 350.1.13.10 i ty of [place]7.2.[place] [id number] [facility] [address] [place] 2022-02-08 2022-02-08 Nurse Nurse, [facility] 1.2.840.114 [id number] Univers 18:15:00 18:35:00 Visit Manoj [employer] 350.1.13.10 ity of [place] 4.2.7.2.686 Claudio as JOANN?BLEA [id number] Tn natalee PAUL [address] [place] [address] MEDICAL OFFICE BUILDING 2022-02-08 2022-02-08 Outpatient Christine VELAZQUEZ [facility] [id number] Univers 18:15:00 18:15:00 LISA tristan [facility] 2022-02-08 2022-02-08 Outpatient [facility] [id number] Univers 18:00:00 18:00:00 LISA [facility] 2022-01-17 2022-01-17 Outpatient [facility] [id number] Univers 00:00:00 00:00:00 PRADIP [facility] 2022-01-09 2022-01-09 Outpatient [facility] [id number] Univers 00:00:00 00:00:00 [facility] 2021-12-04 2021-12-04 Office [facility] [id number] Univers 13:15:00 14:09:10 Visit P[employer] 350.1.13.10 it y of [place] 4.2.7.2.686 Claudio as JOANN?BLEA [id number] [address] OFFICE [facility] 2021-12-04 2021-12-04 Outpatient R RADIOLOGY [facility] RAD [id number] Univers 00:00:00 00:00:00 tristan [facility] 2021-12-03 2021-12-03 Emergency [facility] [id number] Univers 14:02:00 17:34:00 ZACKARY tristan [facility] 2021-12-03 2021-12-03 Emergency [facility] [id number] Univers 14:02:00 17:34:00 Zackary [place] 350.1.13.10 i ty of [place].2.[place] [id number] [address] 2021-12-03 2021-12-03 Emergency [facility] E[facility] [id number] Univers 14:02:00 17:34:00 ZACKARY [facility] 2021-11-19 2021-11-19 [facility]phone [facility] 1.2.840.114 [id number] Univers 00:00:00 00:00:00 Pee Pagan [employer] 350.1.13.10 it y of [place] 4.2.7.2.686 Clauido as JOANN?BLEA [phone] Tn dic[address] MEDICAL OFFICE BUILDING 2021-11-18 2021-11-18 Outpatient R [facility] SOR [id number] Univers 06:51:00 11:10:00 PEE ity of [facility] 2021-11-18 2021-11-18 [facility] 1.2.840.114 [id number] Univers 06:51:00 11:10:00 Encounter Pee SOLER 350.1.13.10 ity of [place] SUR[place]ICAL [phone] [facility] [address] [place] 2021-11-18 2021-11-18 Surgery [facility] 1.2.408.546 [id number] Univers 08:30:00 09:46:00 Pee SOLER 350.1.13.10 i ty of [place]ICAL [id number] [facility] [address] [place] 2021-11-18 2021-11-18 Surgery [facility] 1.2.084.759 [id number] Univers 08:30:00 09:46:00 Pee SOLER 350.1.13.10 i ty [facility] [place] [phone] [facility] [address] [place] 2021-11-18 2021-11-18 Anesthesia Alireza Ceja [facility] 1.2.840.11 [id number] Univers 08:04:00 08:55:00 Event Royce Turcios 350.1.13.10 ity of [facility] 4.2.[place] [phone] [facility] [address] 2021-11-18 2021-11-18 Orders Doctor ROYCE 1.2.840.114 [id number] Univers 00:00:00 00:00:00 Only Unassigned, AVA 350.1.13.10 ity of [place] [facility] 4.2.7.2.686 Claudio as [phone] [facility] [address] [place] 2021-11-15 2021-11-15 [facility] 1.2.840.114 [id number] Univers 08:13:40 23:59:00 Encounter Pee SOLER 350.1.13.10 ity of [facility] [place].2.7.2.[place]US [phone] [facility] [address] 2021-11-15 2021-11-15 Outpatient R SANTI [facility] [id number] Univers 08:13:23 23:59:00 PEE alanis [facility] 2021-11-15 2021-11-15 [employer] Lizzie, Adc Lab Main [facility] 1.2.8 40.114 [id number] Univers 09:15:00 09:30:00 Visit Pee Hancock 350.1.13.10 ity of [facility] 4.2.7.2.[place] [facility] [phone] Tn dical NAL 353 [facility] 2021-11-06 2021-11-06 Telephone [facility] 1.2.840.114 [id number] Univers 00:00:00 00:00:00 Pee Pagan HEALTH 350.1.13.10 it y of [place] 4.2.7.2.686 Claudio as JOANN?BLEA [phone] Tn dical KNEY [address] [facility] OFFICE [facility] 2021-11-04 2021-11-04 Prep [facility] 1.2.840.114 [id number] Univers 00:00:00 00:00:00 Surgery Pee Pagan HEALTH 350.1.13.10 it y of [place] 4.2.7.2.686 Claudio as JOANN?BLEA [phone] Tn dical KNEY [address] [facility] OFFICE [facility] 2021-10-31 2021-10-31 [facility] [id number] Univers 08:25:00 23:59:00 PEE alanis [facility] 2021-10-31 2021-10-31 Office [facility] 1.2.554.869 [id number] Univers 08:15:00 09:27:22 Visit Pee Pagan HEALTH 350.1.13.10 it y of [place] 4.2.7.2.686 Claudio as JOANN?BLEA [phone] Tn dical KNEY [address] [facility] OFFICE [facility] 2021-10-31 2021-10-31 Out[facility] [id number] Univers 08:15:00 08:15:00 PEE alanis [facility] 2021-10-31 2021-10-31 Orders Doctor ROYCE 1.2.840.114 [id number] Univers 00:00:00 00:00:00 Only Unassigned, AVA 350.1.13.10 ity of [place] [facility] 4.2.7.2.686 Claudio as [phone] [address] 2021-10-24 2021-10-24 [facility] [id number] Univers 09:45:00 09:45:00 PEE alanis [facility] 2021-10-18 2021-10-18 Orders Doctor ROYCE 1.2.840.114 [id number] Univers 00:00:00 00:00:00 Only Unassigned, AVA 350.1.13.10 ity of [place] [facility] 4.2.7.2.686 Claudio as [phone] [address] 2021-10-01 2021-10-01 Orders Doctor ROYCE 1.2.840.114 [id number] Univers 00:00:00 00:00:00 Only Unassigned, AVA 350.1.13.10 ity of [place] [facility] 4.2.7.2.686 Claudio as [phone] [address] 2021-09-11 2021-09-11 Office LORENE Gupta [facility] 1.2.840.114 [id number] [place] 15:00:00 15:21:08 Visit Shinkaitlyn SUGAR 350.1.13.58 [facility] 9.2.7.2.686 PLAZA 9 [phone] AND 4 WOMENS 2021-09-06 2021-09-06 Emergency Miah [facility] 1.2.148.347 [id number] Univers 10:43:00 12:44:00 Marilia SOLER 350.1.13.10 ity of [facility] 4.2.7.2.[place] [phone] [address] 2021-09-06 2021-09-06 Outpatient [facility] ERT [id number] Univers 09:40:00 10:58:27 BRITTNI [facility] 2021-09-06 2021-09-06 Urgent [facility] 1.2.840.114 [id number] Univers 09:40:00 10:00:00 Care Arnot [facility] 350.1.13.10 it y of [place] 4.2.7.2.686 Claudio as JOANN?BLEA [phone] [facility] [address] MEDICAL OFFICE BUILDING 2021-09-06 2021-09-06 Outpatient R RICHARD [facility] [id number] Univers 09:40:00 09:40:00 [facility] 2021-09-06 2021-09-06 Orders Doctor ROYCE 1.2.840.114 [id number] Univers 00:00:00 00:00:00 Only Unassigned, AVA 350.1.13.10 ity of [place] [facility] 4.2.7.2.686 Claudio as [phone] [facility] [address] 2021-08-14 2021-08-14 Outpatient R AMORROMERO [facility] [id number] Univers 10:00:00 10:00:00 PETER [facility] 2021-08-07 2021-08-07 Emergency X [facility] [id number] Univers 10:39:00 11:30:00 RICARDO [facility] 2021-08-07 2021-08-07 Emergency [facility] 1.2.940.004 [id number] Univers 10:39:00 11:30:00 Ricardo S [place] 350.1.13.10 i ty of [place] 4.2.7.2.686 [place] [phone] [facility] [address] 2021-06-25 2021-07-25 OP Therapy nullFlavo SMR [id number] Memoria 16:00:00 05:59:00 Patients r [facility] 00 l Ahmet [facility] 2021-06-25 2021-07-25 OP Therapy nullFlavo SMR [id number] Memoria 16:00:00 05:59:00 Patients r [facility] 00 l Ahmet [facility] 2021-06-25 2021-07-24 Outpatient Tammy 2.16.840. 2.16.840. 1. [id number] 11:00:00 23:59:00 Josh pham 1.243201. 402938.3.61 00 3.615.57 5.57 2021-06-13 2021-06-13 Outpatient R EMANUEL, [facility] [id number] [facility] 08:00:00 08:00:00 ALISTAIR alanis [facility] 2021-06-12 2021-06-12 EXT [facility] OP Tammy EXT MSRDP 1.2.840.1 14 [id number] [place] 00:00:00 00:00:00 Josh pham 350.1.13.58 Health [id number] 0 2021-06-12 2021-06-12 EXT [facility] OP Tammy EXT MSRDP 1.2.840.1 14 [id number] [place] 00:00:00 00:00:00 Josh pham 350.1.13.58 Health [id number] 0 2021-06-10 2021-06-10 Emergency [facility] 1.2.254.954 [id number] [facility] 14:17:00 16:42:00 Kendrick Karlene 350.1.13.10 i [facility] 4.2.7.2.686 [facility] [phone] [address] 2021-06-07 2021-06-07 Outpatient R HALEY, [facility] [id number] [facility] 10:00:00 10:00:00 BRITTANEY alanis [facility] 2021-06-05 2021-06-05 Office Tammy [facility] 1.2.840.114 [id number] [place] 08:01:02 09:18:56 Visit Josh pham 350.1.13.58 Health MEDICAL 9.2.7.2.686 PLAZA 0 [id number] 7 2021-05-18 2021-05-18 Emergency Glendy [facility] 1.2.689.170 [id number] [facility] 10:38:00 13:19:00 Ricardo Soler 350.1.13.10 i ty of [place] 4.2.7.2.686 [facility] [phone] [facility] [address] 2021-05-18 2021-05-18 Orders Doctor ROYCE 1.2.840.114 [id number] Univers 00:00:00 00:00:00 Only Unassigned, AVA 350.1.13.10 ity of [facility] 4.2.7.2.686 [facility] [phone] [facility] [address] 2021-04-11 2021-04-11 Outpatient TAMMY [facility] [id number] [place] 09:44:24 09:44:24 JOSH Pham h 2021-03-26 2021-03-26 Orders LORENE Siu [facility] 1.2.840.114 [id number] [place] 00:00:00 00:00:00 Only Armond CARRASCO 350.1.13.58 H [facility] MEDICAL 9.2.7.2.686 PLAZA 3 [phone] 7 2021-03-26 2021-03-26 Orders LORENE Siu [facility] 1.2.840.114 [id number] 2001 00:00:00 00:00:00 Only Armond CARRASCO 350.1.13.58 MEDICAL 9.2.7.2.686 PLAZA 9 [id number] 7 2021-03-19 2021-03-20 Outpt Diag nullFlavo [facility] [id number] Memoria 12:30:00 04:59:00 Services r Outpatient 00 l Imaging [facility] 2021-03-19 2021-03-20 Outpt Diag nullFlavo [facility] [id number] Memoria 12:30:00 04:59:00 Services r Outpatient 00 l Imaging Solomon [facility] 2021-03-19 2021-03-19 Outpatient Tammy MHOIP MHOIP [id number] 07:30:00 23:59:00 Josh pham 00 2021-03-18 2021-03-18 EXT [facility] OP Tammy EXT MSRDP 1.2.840.1 14 [id number] [place] 00:00:00 00:00:00 e, Josh FALL 350.1.13.58 Health 9.2.7.2.686 [id number] 0 2021-02-27 2021-02-27 Office Tammy [facility] 1.2.840.114 12 [id number] [place] 08:29:48 10:00:26 Visit e, Josh CARRASCO 350.1.13.58 Health MEDICAL 9.2.7.2.686 PLA[place] 8 [phone] 7 2021-02-27 2021-02-27 Office Tammy [facility] 1.2.840.114 12 [id number] 08:29:48 10:00:26 Visit e, Josh CARRASCO 350.1.13.58 MEDICAL 9.2.7.2.686 PLAZA 9 [phone] 7 2021-02-25 2021-02-25 Outpatient [facility] [id number] [place] 10:35:57 10:35:57 Health 2020-11-13 2020-11-13 [facility] Royce Rivers 1.2.840.1 [id number] Methodi 08:27:59 23:59:00 Encounter Jungsik 41860.1.[address] 3.430.2.7 Hospit a .3.050848 l .8 2020-11-13 2020-11-13 Travel 1.2.840.1 1.2.976.585 [id number] Methodi 00:00:00 00:00:[address] 3.430.2.7 0.2.7.3.698 Ho spita .3.562950 084.8 l .8 2020-11-13 2020-11-13 Transcribe Royce Rivers 1.2.840.1 [id number] Methodi 00:00:00 00:00:00 Orders [address]ungsik 16276.1.[address] 3.430.2.7 Hospit a .3.613503 l .8 2020-11-09 2020-11-09 Orders Doctor CRANE 1.2.840.114 [id number] 00:00:00 00:00:00 Only Unassigned, AVA 350.1.13.10 [facility] 4.2.7.2.686 [phone] 009 2020-10-05 2020-10-05 Telephone Miah [facility] 1.2.004.099 [id number] 00:00:00 00:00:00 [facility] Health 350.1.13.10 Surgical 4.2.7.2.686 Specialti [id number] es [address] [place] 2020-09-27 2020-09-27 Hospital [facility] 1.2.840.114 [id number] 08:21:38 23:59:00 Encounter Pee Pagan Health 350.1.13.10 Surgical 4.2.7.2.686 Specialti [phone] es [address] [place] 2020-09-27 2020-09-27 Office [facility] 1.2.266.646 [id number] 07:50:24 08:32:23 Visit Pee Pagan [facility] 350.1.13.10 Surgical 4.2.7.2.686 Specialti [phone] es [address] [place] 2020-09-27 2020-09-27 [facility] [id number] [facility] 08:00:00 08:00:00 [facility] 2020-09-24 2020-09-24 Orders Doctor CRANE 1.2.840.114 [id number] 00:00:00 00:00:00 Only Unassigned, AVA 350.1.13.10 [place] [facility] 4.2.7.2.686 [id number] 009 2020-08-23 2020-08-23 [facility] [id number] Univers 08:45:00 08:45:00 [facility] 2020-08-22 2020-08-22 Outpatient [facility] [id number] [facility] 13:15:00 13:15:00 [facility] 2020-07-25 2020-07-25 [facility] [id number] [facility] 14:00:00 14:00:00 [facility] 2020-07-23 2020-07-23 Ambulatory nullFlavo [facility] [id number] Memoria 20:00:00 20:00:00 Pre-Reg r Cardiology 05 l Reema kaur 2020-07-23 2020-07-23 Ambulatory nullFlavo [facility] [id number] Memoria 20:00:00 20:00:00 Pre-Reg r Cardiology 05 l Reema Forbes n 2020-07-23 2020-07-23 Outpatient Maniar, [facility] [id number] 14:00:00 14:00:00 Gilmer H 05 2020-07-17 2020-07-17 Outpatient [facility] [id number] Univers 11:15:00 11:15:00 [facility] 2020-07-06 2020-07-06 [facility] [id number] Univers 08:45:00 08:45:00 [facility] 2020-06-29 2020-06-29 [facility] [id number] Univers 08:15:00 08:15:00 [facility] 2020-06-22 2020-06-22 [facility] [id number] Univers 10:30:00 10:30:00 [facility] 2020-06-20 2020-06-20 [facility] [id number] Univers 14:45:00 14:45:00 [facility] 2020-06-07 2020-06-07 [facility] [id number] Univers 09:15:00 09:15:00 [facility] 2020-05-30 2020-05-30 Out[facility] [id number] Univers 13:00:00 13:00:00 [facility] 2020-05-18 2020-05-18 Outpatient [facility] [id number] Univers 10:45:00 10:45:00 [facility] 2020-05-16 2020-05-16 Outpatient [facility]IOIE [facility] [id number] Memoria 13:30:00 13:30:00 05 elle Carbajal 2020-05-09 2020-05-09 Outpatient Christine HANCOCK [facility] [id number] Univers 14:15:00 14:15:00 PEEROLO alanis [facility] 2020-05-08 2020-05-08 Outpatient Christine HANCOCK [facility] [id number] Univers 12:00:00 12:00:00 PEEROLO alanis [facility] 2020-05-03 2020-05-03 Outpatient Christine HANCOCK [facility] [id number] Univers 08:00:00 08:00:00 PEEROLO alanis [facility] 2020-04-12 2020-04-12 Outpatient Christine HANCOCK [facility] [id number] Univers 10:45:00 10:45:00 PEE tristan [facility] 2020-04-10 2020-04-10 Outpatient Christine HANCOCK [facility] [id number] Univers 09:00:00 09:00:00 [facility] 2020-02-29 2020-02-29 Outpatient Christine HANCOCK [facility] [id number] Univers 13:45:00 13:45:00 PEE annabelle [facility] 2020-02-27 2020-02-27 Outpatient Christine HANCOCK [facility] [id number] Univers 09:42:49 12:45:00 [facility] 2020-02-13 2020-02-13 Outpatient Christine HANCOCK [facility] [id number] Univers 14:06:46 23:59:00 [facility] 2019-12-29 2019-12-29 Outpatient [facility] [id number] Common 09:49:00 09:49:00 [facility] 2019-12-27 2019-12-27 Outpatient [facility] [id number] Common 09:02:00 09:02:00 [facility] 2019-12-23 2019-12-25 Outside nullFlavo MNA [id number] Memoria 20:41:52 04:59:59 Medical r Neurology 02 l Records [place] Solomon 2019-12-23 2019-12-25 Outside nullFlavo MNA [id number] Memoria 20:41:52 04:59:59 Medical r Neurology 02 l Records [place] Addison 2019-12-23 2019-12-24 Outpatient [facility] [id number] 15:41:52 23:59:59 02 2019-12-14 2019-12-14 Outpatient [facility] [id number] Common 14:36:00 14:36:00 [facility] 2019-11-18 2019-11-21 Inpatient nullFlavo [facility] [id number] Memoria 11:22:00 18:46:00 r Addison 00 l [facility] 2019-11-18 2019-11-21 Inpatient nullFlavo [facility] [id number] Memoria 11:22:00 18:46:00 r Addison 00 l [facility] 2019-11-18 2019-11-21 Outpatient Chika, [facility] [id number] 06:22:00 13:46:00 [facility] 00 2019-11-18 2019-11-21 Inpatient CHIKA, [address] 06:22:00 13:46:00 SADIA 2019-11-14 2019-11-15 Outpatient nullFlavo [facility] [id number] Memoria 18:00:00 04:59:59 r Cardiology 03 l [facility] 2019-11-14 2019-11-15 Outpatient nullFlavo [facility] [id number] Memoria 18:00:00 04:59:59 r Cardiology 03 l [facility] 2019-11-14 2019-11-15 Outpatient nullFlavo [facility] [id number] Memoria 16:00:00 04:59:59 r Cardiology 04 l [facility] 2019-11-14 2019-11-15 Outpatient nullFlavo [facility] [id number] Memoria 16:00:00 04:59:59 r Cardiology 04 l [facility] 2019-11-14 2019-11-14 Outpatient Maniar, MG [facility] [id number] 13:00:00 23:59:59 [place] H 03 2019-11-14 2019-11-14 Outpatient Maniar, MG [facility] [id number] 11:00:00 23:59:59 [place] H 04 2019-11-14 2019-11-14 Outpatient MHIE MHIE [id number] Memoria 13:00:00 13:00:00 03 elle Carbajal 2019-11-14 2019-11-14 Outpatient MHIE GUILHERME [id number] Memoria 11:00:00 11:00:00 04 elle Carbajal 2019-11-08 2019-11-08 Outpatient [facility] [id number] Common 09:58:00 09:58:[address] [facility] 2019-11-08 2019-11-08 Outpatient [facility] [id number] Common 09:56:00 09:56:[address] [facility] 2019-10-24 2019-10-24 Outpatient [facility] [id number] Common 21:19:00 21:19:[address] [facility] 2019-10-24 2019-10-24 Outpatient [facility] [id number] Common 21:06:00 21:06:[address] [facility] 2019-10-24 2019-10-24 Outpatient [facility] [id number] Common 09:30:00 09:30:[address] [facility] 2019-09-13 2019-09-13 Outpatient [facility] [id number] Common 13:20:00 13:20:[address] [facility] 2019-08-26 2019-08-26 Outpatient [facility] [id number] Common 08:45:00 08:45:[address] [facility] 2019-08-22 2019-08-22 Outpatient [facility] [id number] Common 01:08:00 01:08:[address] [facility] 2019-08-17 2019-08-17 Outpatient [facility] [id number] Common 09:51:00 09:51:[address] [facility] 2019-08-16 2019-08-16 Outpatient [facility] [id number] Common 13:20:00 13:20:[address] [facility] 2019-07-21 2019-07-21 Outpatient [facility] [id number] Common 14:47:00 14:47:[address] [facility] 2019-07-15 2019-07-15 Outpatient [facility] [id number] Common 10:09:00 10:09:[address] [facility] 2019-07-15 2019-07-15 Outpatient [facility] [id number] Common 08:40:00 08:40:[address] [facility] 2019-07-11 2019-07-11 Outpatient [facility] [id number] Common 13:46:00 13:46:[address] [facility] 2019-06-28 2019-06-28 Outpatient [facility] [id number] Common 02:54:00 02:54:[address] [facility] 2019-06-24 2019-06-24 Outpatient [facility] [id number] Common 09:00:00 09:00:[address] [facility] 2019-06-23 2019-06-23 Outpatient [facility] [id number] Common 15:00:00 15:00:[address] [facility] 2019-05-30 2019-05-30 Outpatient [facility] [id number] Common 15:13:00 15:13:[address] [facility] 2019-05-05 2019-05-05 Outpatient [facility] [id number] Common 15:33:00 15:33:[address] [facility] 2019-04-28 2019-04-28 Outpatient [facility] [id number] Common 09:02:00 09:02:[address] [facility] 2019-04-26 2019-04-26 Outpatient [facility] [id number] Common 13:43:00 13:43:[address] [facility] 2019-04-25 2019-04-25 Outpatient [facility] 27 [id number] Common 22:56:00 22:56:[address] [facility] 2019-04-24 2019-04-24 Outpatient [facility] [id number] Common 11:41:00 11:41:[address] [facility] 2019-04-15 2019-04-15 Outpatient [facility] [id number] Common 09:07:00 09:07:[address] [facility] 2019-04-15 2019-04-15 Outpatient [facility] [id number] Common 08:00:00 08:00:[address] [facility] 2019-03-24 2019-03-24 Outpatient zzzAmy zzzLuisana [id number] Common 09:27:00 09:27:00 Donte Kent Sp yaron DO [facility] 2019-03-16 2019-03-16 Outpatient [facility] [id number] Common 09:16:00 09:16:[address] [facility] 2019-02-22 2019-02-22 Outpatient [facility] [id number] Common 09:03:00 09:03:[address] [facility] 2019-02-18 2019-02-18 Outpatient [facility] [id number] Common 18:38:00 18:38:[address] [facility] 2019-02-18 2019-02-18 Outpatient [facility] [id number] Common 15:06:00 15:06:[address] [facility] 2019-02-16 2019-02-16 Outpatient Reynaldo [facility] [id number] Common 16:06:00 16:06:00 t [facility] [address] [facility] 2019-02-15 2019-02-15 Outpatient Reynaldo [facility] [id number] Common 15:20:00 15:20:00 [facility] it Road [facility] 2018-04-28 2018-04-30 Phone nullFlavo MNA [id number] Memoria 14:28:00 04:59:59 Message r Neurosurger 01 elle Thakur [facility] 2018-04-28 2018-04-30 Phone nullFlavo MNA [id number] Memoria 14:28:00 04:59:59 Message r Neurosurger 01 tristan Thakur [facility] 2018-04-28 2018-04-29 Outpatient MHMISCHER MHMISCHER [id number] 09:28:00 23:59:59 2018-04-07 2018-04-09 Phone nullFlavo MNA Spine [id number] [facility]oria 19:39:00 04:59:59 Message r [facility] 00 elle Carbajal 2018-04-07 2018-04-09 Phone nullFlavo MNA Spine [id number] Memoria 19:39:00 04:59:59 Message r Clinic [facility] 00 elle Carbajal 2018-04-07 2018-04-08 Outpatient MHMISCHER MHMISCHER [id number] 14:39:00 23:59:59 2018-02-02 2018-02-02 Outpatient MHIE MHIE [id number] [facility] 10:45:00 10:45:00 02 elle Carbajal 2018-02-02 2018-02-02 Outpatient MHIE MHIE [id number] [facility] 10:45:00 10:45:00 02 elle Carbajal 2017-11-30 2017-11-30 Outpatient MHIE MHIE [id number] [facility] 13:00:00 13:00:00 01 elle Carbajal 2017-11-30 2017-11-30 Outpatient MHIE MHIE [id number] [facility] 13:00:00 13:00:00 01 elle Carbajal 2017-11-12 2017-11-12 Outpatient GUILHERME VANEGAS [id number] [facility] 11:30:00 11:30:00 00 elle Carbajal 2017-11-12 2017-11-12 Outpatient GUILHERME VANEGAS [id number] [facility] 11:30:00 11:30:00 00 elle Carbajal Results Test Description Test Time Test Comments Results Result Comments Source POCT CREATININE 2022-10-21 22:45:04 Test Item Value Reference Range Interpretation Comme nts POCT Creatinine (test code = 4151303194) 0.5 mg/dL 0.5-1.1 Lab Interpretation (test code = 53744-9) [facility] (ALB,T.PRO,BILI T,BU/BC,ALT,AST,ALK PHOS)2022-09-14 19:32:01 Test Item Value Reference Range Interpretation Comments TOTAL BILI (test code = 8710838688) 0.6 mg/dL 0.1-1.1 BILI UNCON (test code = 9319189273) 0.3 mg/dL 0.1-1.1 BILI CONJ (test code = 1189253621) 0.0 mg/dL 0.0-0.3 T PROTEIN (test code = 9075883107) 7.6 g/dL 6.3-8.2 ALBUMIN (test code = 0785285975) 4.4 g/dL 3.5-5.0 ALK PHOS (test code = 3605064564) 100 U/L 34-122 ALTv (test code = 1742-6) 20 U/L 5-35 AST(SGOT) (test code = 6594426444) 25 U/L 13-40 Lab Interpretation (test code = Normal 49356-6) [facility] (NA, K, CL, CO2, GLUCOSE, BUN, CREATININE, CA)2022-09-14 19:31:41 Test Item Value Reference Range Interpretation Comments NA (test code = 139 mmol/L 135-145 9139700847) K (test code = 4.4 mmol/L 3.5-5.0 1499633950) CL (test code = 108 mmol/L 98-108 3424388815) CO2 TOTAL (test code = 27 mmol/L 23-31 1743005119) AGAP (test code = 2-16 9085424909) BUN (test code = 14 mg/dL 7-23 7188391635) GLUCOSE (test code = 167 mg/dL 70-110 H 7779133702) CREATININE (test code = 0.51 mg/dL 0.50-1.04 1640243573) CALCIUM (test code = 9.5 mg/dL 8.6-10.6 8260055729) eGFR (test code = mL/min/1.73m2 3272811362) ARIANA (test code = ARIANA) Association of [...] tests). Lab Interpretation Abnormal (test code = 65730-9) [facility]31:41 Test Item Value Reference Range Interpretation Comments LIPASE (test code = 8709488947) 307 U/L 0-220 H Lab Interpretation (test code = Abnormal 04359-4) [facility] WITH UBIL5643-19-79 19:04:02 Test Item Value Reference Range Interpretation Comments WBC (test code = See_Comment H [Automated 6690-2) message] The system which generated this result [...] RDW-SD (test code = 44.5 fL 39.0-49.9 07501-7) RDW-CV (test code = 13.4 % 12.0-15.5 788-0) PLT (test code = See_Comment H [Automated 777-3) message] The system which generated this result transmit roberto carlos reference range : 166 - 358 10*3/ ?L. The reference range was not u sed to interpret th is result as normal/abnormal . MPV (test code = 9.5 fL 9.5-12.9 92887-2) NRBC/100 WBC (test See_Comment [Automat ed code = 2897509745) message] The system which generated this result transmit roberto carlos reference range : 0.0 - 10.0 /100 WBCs. The reference range was not used to interpret this result as normal/abnormal . NRBC x10^3 (test code See_Comment [Auto mated = 6919284937) message] The system which generated this result transmit roberto carlos reference range : 10*3/?L. The reference range was not used to interpret this result as normal/abnormal . GRAN MAT (NEUT) % 75.0 % (test code = 770-8) IMM GRAN % (test code 0.70 % = 4981537288) LYMPH % (test code = 16.8 % 736-9) MONO % (test code = 5.2 % 5905-5) EOS % (test code = 1.4 % 713-8) BASO % (test code = 0.9 % 706-2) GRAN MAT x10^3(ANC) 12.01 10*3/uL 1.88-7.09 H (test code = 8589940430) IMM GRAN x10^3 (test 0.11 10*3/uL 0.00-0.06 H code = 6912034601) LYMPH x10^3 (test code 2.68 10*3/uL 1.32-3.29 = 731-0) MONO x10^3 (test code 0.83 10*3/uL 0.33-0.92 = 742-7) EOS x10^3 (test code = 0.23 10*3/uL 0.03-0.39 711-2) BASO x10^3 (test code 0.14 10*3/uL 0.01-0.07 H = 704-7) Lab Interpretation Abnormal (test code = 93076-7) [facility] METABOLIC PANEL (NA, K, CL, CO2, GLUCOSE, BUN, CREATININE, CA)2022-06-29 18:33:12 Test Item Value Reference Range Interpretation Comments NA (test code = 137 mmol/L 135-145 6391495046) K (test code = 4.6 mmol/L 3.5-5 6179313929) CL (test code = 102 mmol/L 98-108 7334220687) CO2 TOTAL (test code = 29 mmol/L 23-31 6765229454) AGAP (test code = 2-16 4452492444) BUN (test code = 17 mg/dL 7-23 9387767715) GLUCOSE (test code = 180 mg/dL 70-110 H 6144373012) CREATININE (test code = 0.49 mg/dL 0.5-1.04 L 1086623824) CALCIUM (test code = 9.7 mg/dL 8.6-10.6 7503818268) eGFR (test code = mL/min/1.73m2 4780861971) ARIANA (test code = ARIANA) Association of [...] tests). Lab Interpretation Abnormal (test code = 36984-5) [facility]22[facility] 18:33:12 Test Item Value Reference Range Interpretation Comments MAGNESIUM (test code = 7575428873) 1.8 mg/dL 1.7-2.4 Lab Interpretation (test code = Normal 83612-7) [facility] HospitalCREAT[facility] PKLUPN3905-58-23 18:32:31 Test Item Value Reference Range Interpretation Comments CK (test code = 2101825811) 89 U/L 33-194 Lab Interpretation (test code = Normal 68285-9) [facility]Asp: L greater trochanteric bursa 2021-02-27 [...] prepped and draped in the usual sterile fashion.[facility] XR HIP W/PEL UNI 2+V FA5533-51-10 10:05:00 [facility] 1965 Sex: F PatientName: ARI GODOY Unit No: [id number] EXAMS: CPT CODE: [id number] XR HIP W/PEL UNI 2+[place] 43891 AP pelvis with frog-leg view left hip LOCATION: T18 INDICATION: Pain Postsurgical changes L5-S1. Bonyalignment is normal. No fracture, dislocation , osteolytic or osteoblastic lesions are identified. Soft tissues unremarkable. Probable chronic irregularity greater trochanter left hip. IMPRESSION: No acute findings. at 1005 Reported and signed by: Royce Mosre MD CC: Francisco Andrea MD Technologist: Archana Marley, RT(R) Transcrpt Date/Tm/Trnsp: 12/14/2020 (1005) Lorri Orig Print D/T: S: 12/14/2020 (1009) [facility] NAME: ARI GODOY [address] [facility] [address] PHYS: [place] [address] : 1965 AGE: 55 SEX: F LOC: [place] PHONE #: [phone] EXAM DATE: 12/14/2020 STATUS: REG CLI FAX #: [phone] RADIOLOGY NO: PAGE 1 Signed ReportXR Lumbar Spine Ap Lateral Flexion And Cranfoemo2790-61-14 18:32:20EXAMINATION: Lateral neutral, flexion and extension views; [...] IMPRESSION: Relatively stable postoperative and degenerative changes. [facility]-[id number] Interface, Radiology Results Incoming - 11/13/2020 12:35 PM CST EXAMINATION: Lateral neutral, [...] right upper quadrant.IMPRESSION:Relatively stable postoperative and degenerative changes.[facility]-[id number]2020-03-16 09:56:00 Test Item Value Reference Range Interpretation Comments Glucose Lvl (test code = Glucose Lvl) 215 70-99 [place] [address]-03-16 09:56:00 Test Item Value Reference Range Interpretation Comments BUN (test code = BUN) 15 7-22 [place] [address]-03-16 09:56:00 Test Item Value Reference Range Interpretation Comments Creatinine Lvl (test code = Creatinine 0.50 0.50-1.40 Lvl) [place] [address]-03-16 09:56:00 Test Item Value Reference Range Interpretation Comments Sodium Lvl (test code = Sodium Lvl) 137 135-145 [place] [address]-03-16 09:56:00 Test Item Value Reference Range Interpretation Comments Potassium Lvl (test code = Potassium 4.5 3.5-5.1 Lvl) [place] [address]-03-16 09:56:00 Test Item Value Reference Range Interpretation Comments Chloride Lvl (test code = Chloride Lvl) 102 95-109 [place] [address]-03-16 09:56:00 Test Item Value Reference Range Interpretation Comments CO2 (test code = CO2) 30 24-32 [place] [address]-03-16 09:56:00 Test Item Value Reference Range Interpretation Comments Calcium Lvl (test code = Calcium Lvl) 9.3 8.5-10.5 [place] [address]-03-16 09:56:00 Test Item Value Reference Range Interpretation Comments AGAP (test code = AGAP) 9.5 10.0-20.0 [place] [address]-03-16 09:56:00 Test Item Value Reference Range Interpretation Comments eGFR (test code = eGFR) 125 [place] 590520-03-16 09:56:00 Test Item Value Reference Range Interpretation Comments Segs (test code = Segs) 71.7 45.0-75.0 [facility] LakewayYnvofezYSLFVSDZWA9054-15-74 09:56:00 Test Item Value Reference Range Interpretation Comments Lymphocytes (test code = Lymphocytes) 17.6 20.0-40.0 [facility] LakewayBomvzpbKXRMAVVDAD3308-94-85 09:56:00 Test Item Value Reference Range Interpretation Comments Monocytes (test code = Monocytes) 8.4 2.0-12.0 [facility] LakewayUjpmhlyJKEGBBCYYL0060-61-61 09:56:00 Test Item Value Reference Range Interpretation Comments Eosinophils (test code = 1.7 See_Comment [A utomated message] The Eosinophils) system which ge nerated this result tra nsmitted reference range : <=4.0. The reference r sharon was not used to int erpret this result as normal/abnormal . [facility] LakewayDuaqfzjRSFVRKYJKE8903-72-55 09:56:00 Test Item Value Reference Range Interpretation Comments Basophils (test code = 0.6 See_Comment [Aut omated message] The Basophils) system which ge nerated this result tra nsmitted reference range : <=1.0. The reference r sharon was not used to int erpret this result as normal/abnormal . [facility] LakewayRpbhhohLMTWHATWZC6200-06-20 09:56:00 Test Item Value Reference Range Interpretation Comments Neutrophils # (test code = Neutrophils 8.2 1.5-8.1 #) [facility] LakewayDzcbzpyPNCPKMQCHY6616-92-87 09:56:00 Test Item Value Reference Range Interpretation Comments Lymphocytes # (test code = Lymphocytes 2.0 1.0-5.5 #) [facility] LakewayXpwsozyWJMHYSKPDJ5514-42-25 09:56:00 Test Item Value Reference Range Interpretation Comments Monocytes # (test code 1.0 See_Comment [Aut omated message] The = Monocytes #) system which generated this result tra nsmitted reference range : <=0.8. The reference r sharon was not used to int erpret this result as normal/abnormal . [facility] LakewayAbicspkHXUPNQPDKS0281-25-36 09:56:00 Test Item Value Reference Range Interpretation Comments Eosinophils # (test code 0.2 See_Comment [A utomated message] The = Eosinophils #) system whic h generated this result tra nsmitted reference range : <=0.5. The reference r sharon was not used to int erpret this result as normal/abnormal . [place] 590520-03-16 09:56:00 Test Item Value Reference Range Interpretation Comments Basophils # (test code 0.1 See_Comment [Aut omated message] The = Basophils #) system which generated this result tra nsmitted reference range : <=0.2. The reference r sharon was not used to int erpret this result as normal/abnormal . [facility] LakewayLrzfzqhCKRGGAUXWY6720-97-85 09:56:00 Test Item Value Reference Range Interpretation Comments WBC (test code = WBC) 11.5 3.7-10.4 [facility] LakewayMqkztkqGPPCWUBUCA0786-08-55 09:56:00 Test Item Value Reference Range Interpretation Comments RBC (test code = RBC) 4.12 4.20-5.40 [facility] LakewayRfhaiqjULPPLKLFXJ0569-60-42 09:56:00 Test Item Value Reference Range Interpretation Comments Hgb (test code = Hgb) 13.0 12.0-16.0 [facility] LakewayBybtqixEBDRDXCDPM5203-23-51 09:56:00 Test Item Value Reference Range Interpretation Comments Hct (test code = Hct) 38.1 36.0-48.0 [facility]EwlulugYTECRDIMCO3970-96-41 09:56:00 Test Item Value Reference Range Interpretation Comments MCV (test code = MCV) 92.5 80.0-98.0 [facility] LakewayFnxwzwdOMEDRPIECY0115-11-77 09:56:00 Test Item Value Reference Range Interpretation Comments MCH (test code = MCH) 31.6 pg 27.0-31.0 [facility] LakewayWqjqbckSJLDRZKVMN2873-47-14 09:56:00 Test Item Value Reference Range Interpretation Comments MCHC (test code = MCHC) 34.2 32.0-36.0 [facility] LakewayTwfijwjWZBJUNMEWM0673-99-41 09:56:00 Test Item Value Reference Range Interpretation Comments RDW (test code = RDW) 13.3 11.5-14.5 [facility] LakewayIvszudjQNHACQNKPX8135-21-88 09:56:00 Test Item Value Reference Range Interpretation Comments Platelet (test code = Platelet) 260 133-450 [facility] CenterRpmbvkqKMUDWTKCZT1999-27-01 09:56:00 Test Item Value Reference Range Interpretation Comments MPV (test code = MPV) 8.0 7.4-10.4 [facility]2020-03-16 09:56:00 Test Item Value Reference Range Interpretation Comments Glucose Lvl (test code = Glucose Lvl) 215 70-99 [place] [address]-03-16 09:56:00 Test Item Value Reference Range Interpretation Comments BUN (test code = BUN) 15 7-22 [place] 414560-03-16 09:56:00 Test Item Value Reference Range Interpretation Comments Creatinine Lvl (test code = Creatinine 0.50 0.50-1.40 Lvl) [place] 414560-03-16 09:56:00 Test Item Value Reference Range Interpretation Comments Sodium Lvl (test code = Sodium Lvl) 137 135-145 [place] [address]-03-16 09:56:00 Test Item Value Reference Range Interpretation Comments Potassium Lvl (test code = Potassium 4.5 3.5-5.1 Lvl) [place] 414560-03-16 09:56:00 Test Item Value Reference Range Interpretation Comments Chloride Lvl (test code = Chloride Lvl) 102 95-109 [place] 414560-03-16 09:56:00 Test Item Value Reference Range Interpretation Comments CO2 (test code = CO2) 30 24-32 [place] [address]-03-16 09:56:00 Test Item Value Reference Range Interpretation Comments Calcium Lvl (test code = Calcium Lvl) 9.3 8.5-10.5 [place] 414560-03-16 09:56:00 Test Item Value Reference Range Interpretation Comments AGAP (test code = AGAP) 9.5 10.0-20.0 [place] 414560-03-16 09:56:00 Test Item Value Reference Range Interpretation Comments eGFR (test code = eGFR) 125 [place] 590520-03-16 09:56:00 Test Item Value Reference Range Interpretation Comments Segs (test code = Segs) 71.7 45.0-75.0 [place] [address]-03-16 09:56:00 Test Item Value Reference Range Interpretation Comments Lymphocytes (test code = Lymphocytes) 17.6 20.0-40.0 [place] [address]-03-16 09:56:00 Test Item Value Reference Range Interpretation Comments Monocytes (test code = Monocytes) 8.4 2.0-12.0 [place] [address]-03-16 09:56:00 Test Item Value Reference Range Interpretation Comments Eosinophils (test code = 1.7 See_Comment [A utomated message] The Eosinophils) system which ge nerated this result tra nsmitted reference range : <=4.0. The reference r sharon was not used to int erpret this result as normal/abnormal . [place] 590520-03-16 09:56:00 Test Item Value Reference Range Interpretation Comments Basophils (test code = 0.6 See_Comment [Aut omated message] The Basophils) system which ge nerated this result tra nsmitted reference range : <=1.0. The reference r sharon was not used to int erpret this result as normal/abnormal . [place] 590520-03-16 09:56:00 Test Item Value Reference Range Interpretation Comments Neutrophils # (test code = Neutrophils 8.2 1.5-8.1 #) [place] [address]-03-16 09:56:00 Test Item Value Reference Range Interpretation Comments Lymphocytes # (test code = Lymphocytes 2.0 1.0-5.5 #) [address]03-16 09:56:00 Test Item Value Reference Range Interpretation Comments Monocytes # (test code 1.0 See_Comment [Aut omated message] The = Monocytes #) system which generated this result tra nsmitted reference range : <=0.8. The reference r sharon was not used to int erpret this result as normal/abnormal . [place] 590520-03-16 09:56:00 Test Item Value Reference Range Interpretation Comments Eosinophils # (test code 0.2 See_Comment [A utomated message] The = Eosinophils #) system whic h generated this result tra nsmitted reference range : <=0.5. The reference r sharon was not used to int erpret this result as normal/abnormal . [place] [address]-03-16 09:56:00 Test Item Value Reference Range Interpretation Comments Basophils # (test code 0.1 See_Comment [Aut omated message] The = Basophils #) system which generated this result tra nsmitted reference range : <=0.2. The reference r sharon was not used to int erpret this result as normal/abnormal . [place] [address]-03-16 09:56:00 Test Item Value Reference Range Interpretation Comments WBC (test code = WBC) 11.5 3.7-10.4 [place] [address]-03-16 09:56:00 Test Item Value Reference Range Interpretation Comments RBC (test code = RBC) 4.12 4.20-5.40 [place] [address]-03-16 09:56:00 Test Item Value Reference Range Interpretation Comments Hgb (test code = Hgb) 13.0 12.0-16.0 [place] [address]-03-16 09:56:00 Test Item Value Reference Range Interpretation Comments Hct (test code = Hct) 38.1 36.0-48.0 [place] [address]-03-16 09:56:00 Test Item Value Reference Range Interpretation Comments MCV (test code = MCV) 92.5 80.0-98.0 [place] [address]-03-16 09:56:00 Test Item Value Reference Range Interpretation Comments MCH (test code = MCH) 31.6 pg 27.0-31.0 [place] [address]-03-16 09:56:00 Test Item Value Reference Range Interpretation Comments MCHC (test code = MCHC) 34.2 32.0-36.0 [place] [address]-03-16 09:56:00 Test Item Value Reference Range Interpretation Comments RDW (test code = RDW) 13.3 11.5-14.5 [place] [address]-03-16 09:56:00 Test Item Value Reference Range Interpretation Comments Platelet (test code = Platelet) 260 133-450 [place] [address]-03-16 09:56:00 Test Item Value Reference Range Interpretation Comments MPV (test code = MPV) 8.0 7.4-10.4 [facility]2020-03-16 09:56:00 Test Item Value Reference Range Interpretation Comments Glucose Lvl (test code = Glucose Lvl) 215 70-99 [facility]2020-03-16 09:56:00 Test Item Value Reference Range Interpretation Comments BUN (test code = BUN) 15 7-22 [place] [address]-03-16 09:56:00 Test Item Value Reference Range Interpretation Comments Creatinine Lvl (test code = Creatinine 0.50 0.50-1.40 Lvl) [place] [address]-03-16 09:56:00 Test Item Value Reference Range Interpretation Comments Sodium Lvl (test code = Sodium Lvl) 137 135-145 [place] [address]-03-16 09:56:00 Test Item Value Reference Range Interpretation Comments Potassium Lvl (test code = Potassium 4.5 3.5-5.1 Lvl) [place] 414560-03-16 09:56:00 Test Item Value Reference Range Interpretation Comments Chloride Lvl (test code = Chloride Lvl) 102 95-109 [place] [address]-03-16 09:56:00 Test Item Value Reference Range Interpretation Comments CO2 (test code = CO2) 30 24-32 [place] [address]-03-16 09:56:00 Test Item Value Reference Range Interpretation Comments Calcium Lvl (test code = Calcium Lvl) 9.3 8.5-10.5 [place] [address]-03-16 09:56:00 Test Item Value Reference Range Interpretation Comments AGAP (test code = AGAP) 9.5 10.0-20.0 [place] [address]-03-16 09:56:00 Test Item Value Reference Range Interpretation Comments eGFR (test code = eGFR) 125 [place] [address]-03-16 09:56:00 Test Item Value Reference Range Interpretation Comments Segs (test code = Segs) 71.7 45.0-75.0 [place] [address]-03-16 09:56:00 Test Item Value Reference Range Interpretation Comments Lymphocytes (test code = Lymphocytes) 17.6 20.0-40.0 [place] [address]-03-16 09:56:00 Test Item Value Reference Range Interpretation Comments Monocytes (test code = Monocytes) 8.4 2.0-12.0 [place] [address]-03-16 09:56:00 Test Item Value Reference Range Interpretation Comments Eosinophils (test code = 1.7 See_Comment [A utomated message] The Eosinophils) system which ge nerated this result tra nsmitted reference range : <=4.0. The reference r sharon was not used to int erpret this result as normal/abnormal . [place] [address]-03-16 09:56:00 Test Item Value Reference Range Interpretation Comments Basophils (test code = 0.6 See_Comment [Aut omated message] The Basophils) system which ge nerated this result tra nsmitted reference range : <=1.0. The reference r sharon was not used to int erpret this result as normal/abnormal . [place] [address]0520-03-16 09:56:00 Test Item Value Reference Range Interpretation Comments Neutrophils # (test code = Neutrophils 8.2 1.5-8.1 #) [facility] LakewayPffefsfUYBPJRNTFJ4600-56-91 09:56:00 Test Item Value Reference Range Interpretation Comments Lymphocytes # (test code = Lymphocytes 2.0 1.0-5.5 #) [place] [address]05[address]-03-16 09:56:00 Test Item Value Reference Range Interpretation Comments Monocytes # (test code 1.0 See_Comment [Aut omated message] The = Monocytes #) system which generated this result tra nsmitted reference range : <=0.8. The reference r sharon was not used to int erpret this result as normal/abnormal . [place] 590520-03-16 09:56:00 Test Item Value Reference Range Interpretation Comments Eosinophils # (test code 0.2 See_Comment [A utomated message] The = Eosinophils #) system whic h generated this result tra nsmitted reference range : <=0.5. The reference r sharon was not used to int erpret this result as normal/abnormal . [place] [address]05[address]-03-16 09:56:00 Test Item Value Reference Range Interpretation Comments Basophils # (test code 0.1 See_Comment [Aut omated message] The = Basophils #) system which generated this result tra nsmitted reference range : <=0.2. The reference r sharon was not used to int erpret this result as normal/abnormal . [facility] LakewayAasrblkIECUWAMBXP7860-08-26 09:56:00 Test Item Value Reference Range Interpretation Comments WBC (test code = WBC) 11.5 3.7-10.4 [place] [address]0520-03-16 09:56:00 Test Item Value Reference Range Interpretation Comments RBC (test code = RBC) 4.12 4.20-5.40 [place] 590520-03-16 09:56:00 Test Item Value Reference Range Interpretation Comments Hgb (test code = Hgb) 13.0 12.0-16.0 [place] [address]-03-16 09:56:00 Test Item Value Reference Range Interpretation Comments Hct (test code = Hct) 38.1 36.0-48.0 [place] [address]0520-03-16 09:56:00 Test Item Value Reference Range Interpretation Comments MCV (test code = MCV) 92.5 80.0-98.0 [place] [address]0520-03-16 09:56:00 Test Item Value Reference Range Interpretation Comments MCH (test code = MCH) 31.6 pg 27.0-31.0 [place] 590520-03-16 09:56:00 Test Item Value Reference Range Interpretation Comments MCHC (test code = MCHC) 34.2 32.0-36.0 [place] [address]0520-03-16 09:56:00 Test Item Value Reference Range Interpretation Comments RDW (test code = RDW) 13.3 11.5-14.5 [place] [address]-03-16 09:56:00 Test Item Value Reference Range Interpretation Comments Platelet (test code = Platelet) 260 133-450 [place] [address]-03-16 09:56:00 Test Item Value Reference Range Interpretation Comments MPV (test code = MPV) 8.0 7.4-10.4 [place] 414560-03-16 09:56:00 Test Item Value Reference Range Interpretation Comments Glucose Lvl (test code = Glucose Lvl) 215 70-99 [place] 414560-03-16 09:56:00 Test Item Value Reference Range Interpretation Comments BUN (test code = BUN) 15 7-22 [place] [address]-03-16 09:56:00 Test Item Value Reference Range Interpretation Comments Creatinine Lvl (test code = Creatinine 0.50 0.50-1.40 Lvl) [place] 414560-03-16 09:56:00 Test Item Value Reference Range Interpretation Comments Sodium Lvl (test code = Sodium Lvl) 137 135-145 [place] 414560-03-16 09:56:00 Test Item Value Reference Range Interpretation Comments Potassium Lvl (test code = Potassium 4.5 3.5-5.1 Lvl) [place] 414560-03-16 09:56:00 Test Item Value Reference Range Interpretation Comments Chloride Lvl (test code = Chloride Lvl) 102 95-109 [place] 414560-03-16 09:56:00 Test Item Value Reference Range Interpretation Comments CO2 (test code = CO2) 30 24-32 [place] 414560-03-16 09:56:00 Test Item Value Reference Range Interpretation Comments Calcium Lvl (test code = Calcium Lvl) 9.3 8.5-10.5 [place] 414560-03-16 09:56:00 Test Item Value Reference Range Interpretation Comments AGAP (test code = AGAP) 9.5 10.0-20.0 [facility] FPSFI0159-33-71 09:56:00 Test Item Value Reference Range Interpretation Comments eGFR (test code = eGFR) 125 [place] 590520-03-16 09:56:00 Test Item Value Reference Range Interpretation Comments Segs (test code = Segs) 71.7 45.0-75.0 [place] [address]-03-16 09:56:00 Test Item Value Reference Range Interpretation Comments Lymphocytes (test code = Lymphocytes) 17.6 20.0-40.0 [place] [address]-03-16 09:56:00 Test Item Value Reference Range Interpretation Comments Monocytes (test code = Monocytes) 8.4 2.0-12.0 [place] [address]0520-03-16 09:56:00 Test Item Value Reference Range Interpretation Comments Eosinophils (test code = 1.7 See_Comment [A utomated message] The Eosinophils) system which ge nerated this result tra nsmitted reference range : <=4.0. The reference r sharon was not used to int erpret this result as normal/abnormal . [place] [address]05[address]-03-16 09:56:00 Test Item Value Reference Range Interpretation Comments Basophils (test code = 0.6 See_Comment [Aut omated message] The Basophils) system which ge nerated this result tra nsmitted reference range : <=1.0. The reference r sharon was not used to int erpret this result as normal/abnormal . [place] 590520-03-16 09:56:00 Test Item Value Reference Range Interpretation Comments Neutrophils # (test code = Neutrophils 8.2 1.5-8.1 #) [facility]wayOixyzvuFVTUCYFZBG6023-14-56 09:56:00 Test Item Value Reference Range Interpretation Comments Lymphocytes # (test code = Lymphocytes 2.0 1.0-5.5 #) [facility] LakewayUxxjcipZOMOSMAMBK4089-55-30 09:56:00 Test Item Value Reference Range Interpretation Comments Monocytes # (test code 1.0 See_Comment [Aut omated message] The = Monocytes #) system which generated this result tra nsmitted reference range : <=0.8. The reference r sharon was not used to int erpret this result as normal/abnormal . [facility] LakewayIodtrcsCOWYDLXLGC1236-17-53 09:56:00 Test Item Value Reference Range Interpretation Comments Eosinophils # (test code 0.2 See_Comment [A utomated message] The = Eosinophils #) system whic h generated this result tra nsmitted reference range : <=0.5. The reference r sharon was not used to int erpret this result as normal/abnormal . [facility] LakewayNftkvfaTLWVCPSZGN2880-96-41 09:56:00 Test Item Value Reference Range Interpretation Comments Basophils # (test code 0.1 See_Comment [Aut omated message] The = Basophils #) system which generated this result tra nsmitted reference range : <=0.2. The reference r sharon was not used to int erpret this result as normal/abnormal . [facility] LakewayPqormgjLRJXZEUPXW6481-59-08 09:56:00 Test Item Value Reference Range Interpretation Comments WBC (test code = WBC) 11.5 3.7-10.4 [place] 590520-03-16 09:56:00 Test Item Value Reference Range Interpretation Comments RBC (test code = RBC) 4.12 4.20-5.40 [place] [address]-03-16 09:56:00 Test Item Value Reference Range Interpretation Comments Hgb (test code = Hgb) 13.0 12.0-16.0 [place] [address]-03-16 09:56:00 Test Item Value Reference Range Interpretation Comments Hct (test code = Hct) 38.1 36.0-48.0 [place] [address]-03-16 09:56:00 Test Item Value Reference Range Interpretation Comments MCV (test code = MCV) 92.5 80.0-98.0 [place] [address]-03-16 09:56:00 Test Item Value Reference Range Interpretation Comments MCH (test code = MCH) 31.6 pg 27.0-31.0 [place] [address]-03-16 09:56:00 Test Item Value Reference Range Interpretation Comments MCHC (test code = MCHC) 34.2 32.0-36.0 [place] [address]-03-16 09:56:00 Test Item Value Reference Range Interpretation Comments RDW (test code = RDW) 13.3 11.5-14.5 [place] [address]-03-16 09:56:00 Test Item Value Reference Range Interpretation Comments Platelet (test code = Platelet) 260 133-450 [place] [address]-03-16 09:56:00 Test Item Value Reference Range Interpretation Comments MPV (test code = MPV) 8.0 7.4-10.4 [place] [address]-03-16 09:56:00 Test Item Value Reference Range Interpretation Comments Glucose Lvl (test code = Glucose Lvl) 215 70-99 [place] 414560-03-16 09:56:00 Test Item Value Reference Range Interpretation Comments BUN (test code = BUN) 15 7-22 [place] [address]-03-16 09:56:00 Test Item Value Reference Range Interpretation Comments Creatinine Lvl (test code = Creatinine 0.50 0.50-1.40 Lvl) [place] [address]-03-16 09:56:00 Test Item Value Reference Range Interpretation Comments Sodium Lvl (test code = Sodium Lvl) 137 135-145 [place] 414560-03-16 09:56:00 Test Item Value Reference Range Interpretation Comments Potassium Lvl (test code = Potassium 4.5 3.5-5.1 Lvl) [place] 414560-03-16 09:56:00 Test Item Value Reference Range Interpretation Comments Chloride Lvl (test code = Chloride Lvl) 102 95-109 [place] [address]-03-16 09:56:00 Test Item Value Reference Range Interpretation Comments CO2 (test code = CO2) 30 24-32 [place] [address]-03-16 09:56:00 Test Item Value Reference Range Interpretation Comments Calcium Lvl (test code = Calcium Lvl) 9.3 8.5-10.5 [place] 414560-03-16 09:56:00 Test Item Value Reference Range Interpretation Comments AGAP (test code = AGAP) 9.5 10.0-20.0 [place] 414560-03-16 09:56:00 Test Item Value Reference Range Interpretation Comments eGFR (test code = eGFR) 125 [place] 590520-03-16 09:56:00 Test Item Value Reference Range Interpretation Comments Segs (test code = Segs) 71.7 45.0-75.0 [place] [address]-03-16 09:56:00 Test Item Value Reference Range Interpretation Comments Lymphocytes (test code = Lymphocytes) 17.6 20.0-40.0 [place] [address]-03-16 09:56:00 Test Item Value Reference Range Interpretation Comments Monocytes (test code = Monocytes) 8.4 2.0-12.0 [place] [address]-03-16 09:56:00 Test Item Value Reference Range Interpretation Comments Eosinophils (test code = 1.7 See_Comment [A utomated message] The Eosinophils) system which ge nerated this result tra nsmitted reference range : <=4.0. The reference r sharon was not used to int erpret this result as normal/abnormal . [place] [address]-03-16 09:56:00 Test Item Value Reference Range Interpretation Comments Basophils (test code = 0.6 See_Comment [Aut omated message] The Basophils) system which ge nerated this result tra nsmitted reference range : <=1.0. The reference r sharon was not used to int erpret this result as normal/abnormal . [place] 590520-03-16 09:56:00 Test Item Value Reference Range Interpretation Comments Neutrophils # (test code = Neutrophils 8.2 1.5-8.1 #) [place] [address]-03-16 09:56:00 Test Item Value Reference Range Interpretation Comments Lymphocytes # (test code = Lymphocytes 2.0 1.0-5.5 #) [place] [address]-03-16 09:56:00 Test Item Value Reference Range Interpretation Comments Monocytes # (test code 1.0 See_Comment [Aut omated message] The = Monocytes #) system which generated this result tra nsmitted reference range : <=0.8. The reference r sharon was not used to int erpret this result as normal/abnormal . [facility] LakewayXbpybbbRWCTPVPPEB9289-57-04 09:56:00 Test Item Value Reference Range Interpretation Comments Eosinophils # (test code 0.2 See_Comment [A utomated message] The = Eosinophils #) system whic h generated this result tra nsmitted reference range : <=0.5. The reference r sharon was not used to int erpret this result as normal/abnormal . [facility] LakewayEswliiiHUWPCTDBZU2244-80-75 09:56:00 Test Item Value Reference Range Interpretation Comments Basophils # (test code 0.1 See_Comment [Aut omated message] The = Basophils #) system which generated this result tra nsmitted reference range : <=0.2. The reference r sharon was not used to int erpret this result as normal/abnormal . [facility] LakewayQhgjpkvZOOQQJAFCP1054-72-15 09:56:00 Test Item Value Reference Range Interpretation Comments WBC (test code = WBC) 11.5 3.7-10.4 [place] 590520-03-16 09:56:00 Test Item Value Reference Range Interpretation Comments RBC (test code = RBC) 4.12 4.20-5.40 [place] [address]-03-16 09:56:00 Test Item Value Reference Range Interpretation Comments Hgb (test code = Hgb) 13.0 12.0-16.0 [place] [address]-03-16 09:56:00 Test Item Value Reference Range Interpretation Comments Hct (test code = Hct) 38.1 36.0-48.0 [place] 590520-03-16 09:56:00 Test Item Value Reference Range Interpretation Comments MCV (test code = MCV) 92.5 80.0-98.0 [place] 590520-03-16 09:56:00 Test Item Value Reference Range Interpretation Comments MCH (test code = MCH) 31.6 pg 27.0-31.0 [place] [address]-03-16 09:56:00 Test Item Value Reference Range Interpretation Comments MCHC (test code = MCHC) 34.2 32.0-36.0 [place] 590520-03-16 09:56:00 Test Item Value Reference Range Interpretation Comments RDW (test code = RDW) 13.3 11.5-14.5 [place] [address]-03-16 09:56:00 Test Item Value Reference Range Interpretation Comments Platelet (test code = Platelet) 260 133-450 [place] [address]-03-16 09:56:00 Test Item Value Reference Range Interpretation Comments MPV (test code = MPV) 8.0 7.4-10.4 [place] 414560-03-15 07:18:00 Test Item Value Reference Range Interpretation Comments Glucose Lvl (test code = Glucose Lvl) 205 70-99 [place] [address]-03-15 07:18:00 Test Item Value Reference Range Interpretation Comments BUN (test code = BUN) 18 7-22 [place] [address]-03-15 07:18:00 Test Item Value Reference Range Interpretation Comments Creatinine Lvl (test code = Creatinine 0.60 0.50-1.40 Lvl) [place] 414560-03-15 07:18:00 Test Item Value Reference Range Interpretation Comments Sodium Lvl (test code = Sodium Lvl) 137 135-145 [place] [address]-03-15 07:18:00 Test Item Value Reference Range Interpretation Comments Potassium Lvl (test code = Potassium 4.2 3.5-5.1 Lvl) [place] 414560-03-15 07:18:00 Test Item Value Reference Range Interpretation Comments Chloride Lvl (test code = Chloride Lvl) 102 95-109 [place] 414560-03-15 07:18:00 Test Item Value Reference Range Interpretation Comments CO2 (test code = CO2) 28 24-32 [place] [address]-03-15 07:18:00 Test Item Value Reference Range Interpretation Comments Calcium Lvl (test code = Calcium Lvl) 8.8 8.5-10.5 [place] [address]-03-15 07:18:00 Test Item Value Reference Range Interpretation Comments AGAP (test code = AGAP) 11.2 10.0-20.0 [place] [address]-03-15 07:18:00 Test Item Value Reference Range Interpretation Comments eGFR (test code = eGFR) 118 [place] 414560-03-15 07:18:00 Test Item Value Reference Range Interpretation Comments Magnesium Lvl (test code = Magnesium 1.8 1.8-2.4 Lvl) [facility]2020-03-15 07:18:00 Test Item Value Reference Range Interpretation Comments Phosphorus (test code = Phosphorus) 3.2 2.5-4.5 [facility] LakewayPrkakeeNMXOWKNTET6113-86-74 07:18:00 Test Item Value Reference Range Interpretation Comments WBC (test code = WBC) 13.5 3.7-10.4 [facility] LakewayJulugpyZKDXDZIJUT0683-44-78 07:18:00 Test Item Value Reference Range Interpretation Comments RBC (test code = RBC) 3.98 4.20-5.40 [facility] LakewayOyqzthfBOHMQBVPGN7485-90-27 07:18:00 Test Item Value Reference Range Interpretation Comments Hgb (test code = Hgb) 12.2 12.0-16.0 [facility] LakewayHfuimznNYVRIFZCPQ9354-35-19 07:18:00 Test Item Value Reference Range Interpretation Comments Hct (test code = Hct) 37.0 36.0-48.0 [facility] LakewayZncyjcoDRIYGYRFRJ5873-32-71 07:18:00 Test Item Value Reference Range Interpretation Comments MCV (test code = MCV) 93.0 80.0-98.0 [facility] LakewayMptbbbrPDIBGHJYFP0625-64-76 07:18:00 Test Item Value Reference Range Interpretation Comments MCH (test code = MCH) 30.7 pg 27.0-31.0 [facility] LakewayLohpoasLHFBXICPYY8188-64-38 07:18:00 Test Item Value Reference Range Interpretation Comments MCHC (test code = MCHC) 33.0 32.0-36.0 [facility] LakewayEjdnrokCFVZPPZQYJ9780-34-56 07:18:00 Test Item Value Reference Range Interpretation Comments RDW (test code = RDW) 13.2 11.5-14.5 [facility] LakewayHnfjoxtAXGHLUBQED2867-24-47 07:18:00 Test Item Value Reference Range Interpretation Comments Platelet (test code = Platelet) 256 133-450 [facility] LakewayZnuradnZHVARKJUHZ9494-98-15 07:18:00 Test Item Value Reference Range Interpretation Comments MPV (test code = MPV) 8.1 7.4-10.4 [facility] LakewayIsurerhQYFRCRFJIJ5895-80-78 07:18:00 Test Item Value Reference Range Interpretation Comments RBC Morph (test code = Normal (11/20/19 2:18 RBC Morph) AM) [facility] LakewayMmqcilaGIHNTCAWXN7651-32-29 07:18:00 Test Item Value Reference Range Interpretation Comments Plt Morph (test code = Normal (11/20/19 2:18 Plt Morph) AM) [facility] LakewayTfdmqicTYWXYNIOBX0008-36-54 07:18:00 Test Item Value Reference Range Interpretation Comments Segs (test code = Segs) 83.0 45.0-75.0 [place] [address]-03-15 07:18:00 Test Item Value Reference Range Interpretation Comments Lymphocytes (test code = Lymphocytes) 11.2 20.0-40.0 [place] [address]-03-15 07:18:00 Test Item Value Reference Range Interpretation Comments Monocytes (test code = Monocytes) 4.4 2.0-12.0 [place] [address]-03-15 07:18:00 Test Item Value Reference Range Interpretation Comments Eosinophils (test code = 1.1 See_Comment [A utomated message] The Eosinophils) system which ge nerated this result tra nsmitted reference range : <=4.0. The reference r sharon was not used to int erpret this result as normal/abnormal . [facility] LakewayZunlzebHBNRGQXDTC5709-77-23 07:18:00 Test Item Value Reference Range Interpretation Comments Basophils (test code = 0.3 See_Comment [Aut omated message] The Basophils) system which ge nerated this result tra nsmitted reference range : <=1.0. The reference r sharon was not used to int erpret this result as normal/abnormal . [facility] LakewayUgateoxQEJOVXDQMN1379-47-79 07:18:00 Test Item Value Reference Range Interpretation Comments Neutrophils # (test code = Neutrophils 11.2 1.5-8.1 #) [place] [address]-03-15 07:18:00 Test Item Value Reference Range Interpretation Comments Lymphocytes # (test code = Lymphocytes 1.5 1.0-5.5 #) [place] [address]-03-15 07:18:00 Test Item Value Reference Range Interpretation Comments Monocytes # (test code 0.6 See_Comment [Aut omated message] The = Monocytes #) system which generated this result tra nsmitted reference range : <=0.8. The reference r sharon was not used to int erpret this result as normal/abnormal . [place] [address]-03-15 07:18:00 Test Item Value Reference Range Interpretation Comments Eosinophils # (test code 0.1 See_Comment [A utomated message] The = Eosinophils #) system whic h generated this result tra nsmitted reference range : <=0.5. The reference r sharon was not used to int erpret this result as normal/abnormal . [place] 590520-03-15 07:18:00 Test Item Value Reference Range Interpretation Comments Basophils # (test code 0.0 See_Comment [Aut omated message] The = Basophils #) system which generated this result tra nsmitted reference range : <=0.2. The reference r sharon was not used to int erpret this result as normal/abnormal . [place] 699030-03-15 07:18:00 Test Item Value Reference Range Interpretation Comments Ca Ion WB (test code = Ca Ion WB) 1.07 1.05-1.25 [place] [address]-03-15 07:18:00 Test Item Value Reference Range Interpretation Comments Ca Norm WB (test code = Ca Norm WB) 1.09 1.05-1.[address]03-15 07:18:00 Test Item Value Reference Range Interpretation Comments Glucose Lvl (test code = Glucose Lvl) 205 70-99 [place] [address]-03-15 07:18:00 Test Item Value Reference Range Interpretation Comments BUN (test code = BUN) 18 7-22 [place] [address]-03-15 07:18:00 Test Item Value Reference Range Interpretation Comments Creatinine Lvl (test code = Creatinine 0.60 0.50-1.40 Lvl) [place] [address]-03-15 07:18:00 Test Item Value Reference Range Interpretation Comments Sodium Lvl (test code = Sodium Lvl) 137 135-145 [place] [address]-03-15 07:18:00 Test Item Value Reference Range Interpretation Comments Potassium Lvl (test code = Potassium 4.2 3.5-5.1 Lvl) [place] [address]-03-15 07:18:00 Test Item Value Reference Range Interpretation Comments Chloride Lvl (test code = Chloride Lvl) 102 95-109 [place] 414560-03-15 07:18:00 Test Item Value Reference Range Interpretation Comments CO2 (test code = CO2) 28 24-32 [place] [address]-03-15 07:18:00 Test Item Value Reference Range Interpretation Comments Calcium Lvl (test code = Calcium Lvl) 8.8 8.5-10.5 [place] [address]-03-15 07:18:00 Test Item Value Reference Range Interpretation Comments AGAP (test code = AGAP) 11.2 10.0-20.0 [place] [address]-03-15 07:18:00 Test Item Value Reference Range Interpretation Comments eGFR (test code = eGFR) 118 [place] [address]-03-15 07:18:00 Test Item Value Reference Range Interpretation Comments Magnesium Lvl (test code = Magnesium 1.8 1.8-2.4 Lvl) [place] 414560-03-15 07:18:00 Test Item Value Reference Range Interpretation Comments Phosphorus (test code = Phosphorus) 3.2 2.5-4.5 [place] [address]-03-15 07:18:00 Test Item Value Reference Range Interpretation Comments WBC (test code = WBC) 13.5 3.7-10.4 [place] [address]-03-15 07:18:00 Test Item Value Reference Range Interpretation Comments RBC (test code = RBC) 3.98 4.20-5.40 [place] [address]-03-15 07:18:00 Test Item Value Reference Range Interpretation Comments Hgb (test code = Hgb) 12.2 12.0-16.0 [place] [address]-03-15 07:18:00 Test Item Value Reference Range Interpretation Comments Hct (test code = Hct) 37.0 36.0-48.0 [place] [address]-03-15 07:18:00 Test Item Value Reference Range Interpretation Comments MCV (test code = MCV) 93.0 80.0-98.0 [place] [address]-03-15 07:18:00 Test Item Value Reference Range Interpretation Comments MCH (test code = MCH) 30.7 pg 27.0-31.0 [place] [address]-03-15 07:18:00 Test Item Value Reference Range Interpretation Comments MCHC (test code = MCHC) 33.0 32.0-36.0 [place] [address]-03-15 07:18:00 Test Item Value Reference Range Interpretation Comments RDW (test code = RDW) 13.2 11.5-14.5 [place] [address]-03-15 07:18:00 Test Item Value Reference Range Interpretation Comments Platelet (test code = Platelet) 256 133-450 [facility] LakewayDpaonsbLCCWTWMAKE9833-84-72 07:18:00 Test Item Value Reference Range Interpretation Comments MPV (test code = MPV) 8.1 7.4-10.4 [place] [address]-03-15 07:18:00 Test Item Value Reference Range Interpretation Comments RBC Morph (test code = Normal (11/20/19 2:18 RBC Morph) AM) [facility] LakewayAunadkuDUDMZYRQAU4287-07-90 07:18:00 Test Item Value Reference Range Interpretation Comments Plt Morph (test code = Normal (11/20/19 2:18 Plt Morph) AM) [facility] LakewayLonvuopWLJBTCJNYH7000-04-74 07:18:00 Test Item Value Reference Range Interpretation Comments Segs (test code = Segs) 83.0 45.0-75.0 [facility] LakewayKuezhqnGOUPYKZXFF0818-10-33 07:18:00 Test Item Value Reference Range Interpretation Comments Lymphocytes (test code = Lymphocytes) 11.2 20.0-40.0 [place] [address]-03-15 07:18:00 Test Item Value Reference Range Interpretation Comments Monocytes (test code = Monocytes) 4.4 2.0-12.0 [place] [address]-03-15 07:18:00 Test Item Value Reference Range Interpretation Comments Eosinophils (test code = 1.1 See_Comment [A utomated message] The Eosinophils) system which ge nerated this result tra nsmitted reference range : <=4.0. The reference r sharon was not used to int erpret this result as normal/abnormal . [facility] LakewayHqlblmlQALSLPBGSY7091-98-99 07:18:00 Test Item Value Reference Range Interpretation Comments Basophils (test code = 0.3 See_Comment [Aut omated message] The Basophils) system which ge nerated this result tra nsmitted reference range : <=1.0. The reference r sharon was not used to int erpret this result as normal/abnormal . [address]03-15 07:18:00 Test Item Value Reference Range Interpretation Comments Neutrophils # (test code = Neutrophils 11.2 1.5-8.1 #) [place] 590520-03-15 07:18:00 Test Item Value Reference Range Interpretation Comments Lymphocytes # (test code = Lymphocytes 1.5 1.0-5.5 #) [place] [address]-03-15 07:18:00 Test Item Value Reference Range Interpretation Comments Monocytes # (test code 0.6 See_Comment [Aut omated message] The = Monocytes #) system which generated this result tra nsmitted reference range : <=0.8. The reference r sharon was not used to int erpret this result as normal/abnormal . [place] [address]-03-15 07:18:00 Test Item Value Reference Range Interpretation Comments Eosinophils # (test code 0.1 See_Comment [A utomated message] The = Eosinophils #) system whic h generated this result tra nsmitted reference range : <=0.5. The reference r sharon was not used to int erpret this result as normal/abnormal . [place] [address]-03-15 07:18:00 Test Item Value Reference Range Interpretation Comments Basophils # (test code 0.0 See_Comment [Aut omated message] The = Basophils #) system which generated this result tra nsmitted reference range : <=0.2. The reference r sharon was not used to int erpret this result as normal/abnormal . [facility] UHXYHNF0505[facility]87[facility]84 07:18:00 Test Item Value Reference Range Interpretation Comments Ca Ion WB (test code = Ca Ion WB) 1.07 1.05-1.[address] [facility] HospitalluciernaROID SPLYNGS7110-16-36 07:18:00 Test Item Value Reference Range Interpretation Comments Ca Norm WB (test code = Ca Norm WB) 1.09 1.05-1.25 [place] [address]-03-15 07:18:00 Test Item Value Reference Range Interpretation Comments Glucose Lvl (test code = Glucose Lvl) 205 70-99 [place] 414560-03-15 07:18:00 Test Item Value Reference Range Interpretation Comments BUN (test code = BUN) 18 7-22 [place] [address]-03-15 07:18:00 Test Item Value Reference Range Interpretation Comments Creatinine Lvl (test code = Creatinine 0.60 0.50-1.40 Lvl) [place] 414560-03-15 07:18:00 Test Item Value Reference Range Interpretation Comments Sodium Lvl (test code = Sodium Lvl) 137 135-145 [place] [address]-03-15 07:18:00 Test Item Value Reference Range Interpretation Comments Potassium Lvl (test code = Potassium 4.2 3.5-5.1 Lvl) [place] [address]-03-15 07:18:00 Test Item Value Reference Range Interpretation Comments Chloride Lvl (test code = Chloride Lvl) 102 95-109 [place] [address]-03-15 07:18:00 Test Item Value Reference Range Interpretation Comments CO2 (test code = CO2) 28 24-32 [place] [address]-03-15 07:18:00 Test Item Value Reference Range Interpretation Comments Calcium Lvl (test code = Calcium Lvl) 8.8 8.5-10.5 [place] [address]-03-15 07:18:00 Test Item Value Reference Range Interpretation Comments AGAP (test code = AGAP) 11.2 10.0-20.0 [place] 414560-03-15 07:18:00 Test Item Value Reference Range Interpretation Comments eGFR (test code = eGFR) 118 [place] [address]-03-15 07:18:00 Test Item Value Reference Range Interpretation Comments Magnesium Lvl (test code = Magnesium 1.8 1.8-2.4 Lvl) [place] [address]-03-15 07:18:00 Test Item Value Reference Range Interpretation Comments Phosphorus (test code = Phosphorus) 3.2 2.5-4.5 [place] [address]-03-15 07:18:00 Test Item Value Reference Range Interpretation Comments WBC (test code = WBC) 13.5 3.7-10.4 [place] [address]-03-15 07:18:00 Test Item Value Reference Range Interpretation Comments RBC (test code = RBC) 3.98 4.20-5.40 [place] [address]-03-15 07:18:00 Test Item Value Reference Range Interpretation Comments Hgb (test code = Hgb) 12.2 12.0-16.0 [facility] LakewayVzvmmhsNMOMRSEYYP5612-27-58 07:18:00 Test Item Value Reference Range Interpretation Comments Hct (test code = Hct) 37.0 36.0-48.0 [facility] LakewayJgfgdwuJDFTYEZXPT9262-66-77 07:18:00 Test Item Value Reference Range Interpretation Comments MCV (test code = MCV) 93.0 80.0-98.0 [facility] LakewayZdgroqpTROQAUVDYN4191-98-49 07:18:00 Test Item Value Reference Range Interpretation Comments MCH (test code = MCH) 30.7 pg 27.0-31.0 [facility] LakewayOtngkvzUPTMGRFVIM5229-65-65 07:18:00 Test Item Value Reference Range Interpretation Comments MCHC (test code = MCHC) 33.0 32.0-36.0 [facility] LakewayBhbjpwpIFJHIPPSNO4887-65-11 07:18:00 Test Item Value Reference Range Interpretation Comments RDW (test code = RDW) 13.2 11.5-14.5 [facility] LakewayQmfgfcdCEWJPJWGTR4673-59-02 07:18:00 Test Item Value Reference Range Interpretation Comments Platelet (test code = Platelet) 256 133-450 [facility] LakewayTbqxsppPOTLUZCSPW3706-94-86 07:18:00 Test Item Value Reference Range Interpretation Comments MPV (test code = MPV) 8.1 7.4-10.4 [facility] LakewayIwejrscDJFIPHZDPK1167-17-30 07:18:00 Test Item Value Reference Range Interpretation Comments RBC Morph (test code = Normal (11/20/19 2:18 RBC Morph) AM) [facility] LakewayKtyoajoBSCYULGBXC7177-65-06 07:18:00 Test Item Value Reference Range Interpretation Comments Plt Morph (test code = Normal (11/20/19 2:18 Plt Morph) AM) [facility] [facility]wayAlndzzuFZOPLFAMDM5813-87-82 07:18:00 Test Item Value Reference Range Interpretation Comments Segs (test code = Segs) 83.0 45.0-75.0 [facility] LakewayJuduhrfWCDOTAIWBZ0463-24-65 07:18:00 Test Item Value Reference Range Interpretation Comments Lymphocytes (test code = Lymphocytes) 11.2 20.0-40.0 [facility] LakewayZkixiwdCOCKPRYKOO6160-07-66 07:18:00 Test Item Value Reference Range Interpretation Comments Monocytes (test code = Monocytes) 4.4 2.0-12.0 [address]03-15 07:18:00 Test Item Value Reference Range Interpretation Comments Eosinophils (test code = 1.1 See_Comment [A utomated message] The Eosinophils) system which ge nerated this result tra nsmitted reference range : <=4.0. The reference r sharon was not used to int erpret this result as normal/abnormal . [address]03-15 07:18:00 Test Item Value Reference Range Interpretation Comments Basophils (test code = 0.3 See_Comment [Aut omated message] The Basophils) system which ge nerated this result tra nsmitted reference range : <=1.0. The reference r sharon was not used to int erpret this result as normal/abnormal . [address]03-15 07:18:00 Test Item Value Reference Range Interpretation Comments Neutrophils # (test code = Neutrophils 11.2 1.5-8.1 #) [address]03-15 07:18:00 Test Item Value Reference Range Interpretation Comments Lymphocytes # (test code = Lymphocytes 1.5 1.0-5.5 #) [address]03-15 07:18:00 Test Item Value Reference Range Interpretation Comments Monocytes # (test code 0.6 See_Comment [Aut omated message] The = Monocytes #) system which generated this result tra nsmitted reference range : <=0.8. The reference r sharon was not used to int erpret this result as normal/abnormal . [place] [address]-03-15 07:18:00 Test Item Value Reference Range Interpretation Comments Eosinophils # (test code 0.1 See_Comment [A utomated message] The = Eosinophils #) system whic h generated this result tra nsmitted reference range : <=0.5. The reference r sharon was not used to int erpret this result as normal/abnormal . [place] [address]-03-15 07:18:00 Test Item Value Reference Range Interpretation Comments Basophils # (test code 0.0 See_Comment [Aut omated message] The = Basophils #) system which generated this result tra nsmitted reference range : <=0.2. The reference r sharon was not used to int erpret this result as normal/abnormal . [facility]PAR[facility] [id number] 07:18:00 Test Item Value Reference Range Interpretation Comments Ca Ion WB (test code = Ca Ion WB) 1.07 1.05-1.25 [facility] HospitalPARATHYROID [id number] 07:18:00 Test Item Value Reference Range Interpretation Comments Ca Norm WB (test code = Ca Norm WB) 1.09 1.05-1.25 [facility]2020-03-15 07:18:00 Test Item Value Reference Range Interpretation Comments Glucose Lvl (test code = Glucose Lvl) 205 70-99 [facility]2020-03-15 07:18:00 Test Item Value Reference Range Interpretation Comments BUN (test code = BUN) 18 7-22 [facility]2020-03-15 07:18:00 Test Item Value Reference Range Interpretation Comments Creatinine Lvl (test code = Creatinine 0.60 0.50-1.40 Lvl) [facility]2020-03-15 07:18:00 Test Item Value Reference Range Interpretation Comments Sodium Lvl (test code = Sodium Lvl) 137 135-145 [facility]2020-03-15 07:18:00 Test Item Value Reference Range Interpretation Comments Potassium Lvl (test code = Potassium 4.2 3.5-5.1 Lvl) [facility] CampusBiosynthetic TechnologiesNOVANT HEALTH CLEMMONS MEDICAL [id number] 07:18:00 Test Item Value Reference Range Interpretation Comments Chloride Lvl (test code = Chloride Lvl) 102 95-109 [facility]2020-03-15 07:18:00 Test Item Value Reference Range Interpretation Comments CO2 (test code = CO2) 28 24-32 [facility]2020-03-15 07:18:00 Test Item Value Reference Range Interpretation Comments Calcium Lvl (test code = Calcium Lvl) 8.8 8.5-10.5 [place] 414560-03-15 07:18:00 Test Item Value Reference Range Interpretation Comments AGAP (test code = AGAP) 11.2 10.0-20.0 [place] 414560-03-15 07:18:00 Test Item Value Reference Range Interpretation Comments eGFR (test code = eGFR) 118 [place] 414560-03-15 07:18:00 Test Item Value Reference Range Interpretation Comments Magnesium Lvl (test code = Magnesium 1.8 1.8-2.4 Lvl) [facility]2020-03-15 07:18:00 Test Item Value Reference Range Interpretation Comments Phosphorus (test code = Phosphorus) 3.2 2.5-4.5 [place] [address]-03-15 07:18:00 Test Item Value Reference Range Interpretation Comments WBC (test code = WBC) 13.5 3.7-10.4 [place] [address]-03-15 07:18:00 Test Item Value Reference Range Interpretation Comments RBC (test code = RBC) 3.98 4.20-5.40 [place] [address]-03-15 07:18:00 Test Item Value Reference Range Interpretation Comments Hgb (test code = Hgb) 12.2 12.0-16.0 [place] [address]-03-15 07:18:00 Test Item Value Reference Range Interpretation Comments Hct (test code = Hct) 37.0 36.0-48.0 [place] [address]-03-15 07:18:00 Test Item Value Reference Range Interpretation Comments MCV (test code = MCV) 93.0 80.0-98.0 [place] [address]-03-15 07:18:00 Test Item Value Reference Range Interpretation Comments MCH (test code = MCH) 30.7 pg 27.0-31.0 [place] [address]-03-15 07:18:00 Test Item Value Reference Range Interpretation Comments MCHC (test code = MCHC) 33.0 32.0-36.0 [place] [address]-03-15 07:18:00 Test Item Value Reference Range Interpretation Comments RDW (test code = RDW) 13.2 11.5-14.5 [place] [address]-03-15 07:18:00 Test Item Value Reference Range Interpretation Comments Platelet (test code = Platelet) 256 133-450 [place] [address]-03-15 07:18:00 Test Item Value Reference Range Interpretation Comments MPV (test code = MPV) 8.1 7.4-10.4 [place] [address]-03-15 07:18:00 Test Item Value Reference Range Interpretation Comments RBC Morph (test code = Normal (11/20/19 2:18 RBC Morph) AM) [facility] LakewayVxnpbchKAXVMEATYU8717-58-47 07:18:00 Test Item Value Reference Range Interpretation Comments Plt Morph (test code = Normal (11/20/19 2:18 Plt Morph) AM) [facility] LakewayYpomhilAOXUGTHPAR9244-85-79 07:18:00 Test Item Value Reference Range Interpretation Comments Segs (test code = Segs) 83.0 45.0-75.0 [place] 590520-03-15 07:18:00 Test Item Value Reference Range Interpretation Comments Lymphocytes (test code = Lymphocytes) 11.2 20.0-40.0 [place] 590520-03-15 07:18:00 Test Item Value Reference Range Interpretation Comments Monocytes (test code = Monocytes) 4.4 2.0-12.0 [facility] LakewayOnzevclNANPZBHVBS6639-99-03 07:18:00 Test Item Value Reference Range Interpretation Comments Eosinophils (test code = 1.1 See_Comment [A utomated message] The Eosinophils) system which ge nerated this result tra nsmitted reference range : <=4.0. The reference r sharon was not used to int erpret this result as normal/abnormal . [facility] LakewayPkwnhjbYANCXVQCUZ1014-77-04 07:18:00 Test Item Value Reference Range Interpretation Comments Basophils (test code = 0.3 See_Comment [Aut omated message] The Basophils) system which ge nerated this result tra nsmitted reference range : <=1.0. The reference r sharon was not used to int erpret this result as normal/abnormal . [facility] LakewayZvbitbwNECNJXTFKE5800-26-17 07:18:00 Test Item Value Reference Range Interpretation Comments Neutrophils # (test code = Neutrophils 11.2 1.5-8.1 #) [place] 590520-03-15 07:18:00 Test Item Value Reference Range Interpretation Comments Lymphocytes # (test code = Lymphocytes 1.5 1.0-5.5 #) [place] [address]-03-15 07:18:00 Test Item Value Reference Range Interpretation Comments Monocytes # (test code 0.6 See_Comment [Aut omated message] The = Monocytes #) system which generated this result tra nsmitted reference range : <=0.8. The reference r sharon was not used to int erpret this result as normal/abnormal . [address]03-15 07:18:00 Test Item Value Reference Range Interpretation Comments Eosinophils # (test code 0.1 See_Comment [A utomated message] The = Eosinophils #) system whic h generated this result tra nsmitted reference range : <=0.5. The reference r sharon was not used to int erpret this result as normal/abnormal . [place] [address]-03-15 07:18:00 Test Item Value Reference Range Interpretation Comments Basophils # (test code 0.0 See_Comment [Aut omated message] The = Basophils #) system which generated this result tra nsmitted reference range : <=0.2. The reference r sharon was not used to int erpret this result as normal/abnormal . [place] 699030-03-15 07:18:00 Test Item Value Reference Range Interpretation Comments Ca Ion WB (test code = Ca Ion WB) 1.07 1.05-1.25 [place] [address]-03-15 07:18:00 Test Item Value Reference Range Interpretation Comments Ca Norm WB (test code = Ca Norm WB) 1.09 1.05-1.25 [facility] HospitalApt[facility] Pharma [id number] 07:18:00 Test Item Value Reference Range Interpretation Comments Glucose Lvl (test code = Glucose Lvl) 205 70-99 [facility] [id number] 07:18:00 Test Item Value Reference Range Interpretation Comments BUN (test code = BUN) 18 7-22 [facility] [id number] 07:18:00 Test Item Value Reference Range Interpretation Comments Creatinine Lvl (test code = Creatinine 0.60 0.50-1.40 Lvl) [facility] CampusYapert [id number] 07:18:00 Test Item Value Reference Range Interpretation Comments Sodium Lvl (test code = Sodium Lvl) 137 135-145 [facility] [id number] 07:18:00 Test Item Value Reference Range Interpretation Comments Potassium Lvl (test code = Potassium 4.2 3.5-5.1 Lvl) [facility] [id number] 07:18:00 Test Item Value Reference Range Interpretation Comments Chloride Lvl (test code = Chloride Lvl) 102 95-109 [place] 414560-03-15 07:18:00 Test Item Value Reference Range Interpretation Comments CO2 (test code = CO2) 28 24-32 [place] [address]-03-15 07:18:00 Test Item Value Reference Range Interpretation Comments Calcium Lvl (test code = Calcium Lvl) 8.8 8.5-10.5 [place] 414560-03-15 07:18:00 Test Item Value Reference Range Interpretation Comments AGAP (test code = AGAP) 11.2 10.0-20.0 [place] [address]-03-15 07:18:00 Test Item Value Reference Range Interpretation Comments eGFR (test code = eGFR) 118 [place] 414560-03-15 07:18:00 Test Item Value Reference Range Interpretation Comments Magnesium Lvl (test code = Magnesium 1.8 1.8-2.4 Lvl) [place] 414560-03-15 07:18:00 Test Item Value Reference Range Interpretation Comments Phosphorus (test code = Phosphorus) 3.2 2.5-4.5 [place] [address]-03-15 07:18:00 Test Item Value Reference Range Interpretation Comments WBC (test code = WBC) 13.5 3.7-10.4 [place] [address]-03-15 07:18:00 Test Item Value Reference Range Interpretation Comments RBC (test code = RBC) 3.98 4.20-5.40 [place] [address]-03-15 07:18:00 Test Item Value Reference Range Interpretation Comments Hgb (test code = Hgb) 12.2 12.0-16.0 [place] [address]-03-15 07:18:00 Test Item Value Reference Range Interpretation Comments Hct (test code = Hct) 37.0 36.0-48.0 [place] [address]-03-15 07:18:00 Test Item Value Reference Range Interpretation Comments MCV (test code = MCV) 93.0 80.0-98.0 [place] [address]-03-15 07:18:00 Test Item Value Reference Range Interpretation Comments MCH (test code = MCH) 30.7 pg 27.0-31.0 [place] [address]-03-15 07:18:00 Test Item Value Reference Range Interpretation Comments MCHC (test code = MCHC) 33.0 32.0-36.0 [place] [address]-03-15 07:18:00 Test Item Value Reference Range Interpretation Comments RDW (test code = RDW) 13.2 11.5-14.5 [place] [address]-03-15 07:18:00 Test Item Value Reference Range Interpretation Comments Platelet (test code = Platelet) 256 133-450 [place] [address]-03-15 07:18:00 Test Item Value Reference Range Interpretation Comments MPV (test code = MPV) 8.1 7.4-10.4 [place] [address]-03-15 07:18:00 Test Item Value Reference Range Interpretation Comments RBC Morph (test code = Normal (11/20/19 2:18 RBC Morph) AM) [place] [address]-03-15 07:18:00 Test Item Value Reference Range Interpretation Comments Plt Morph (test code = Normal (11/20/19 2:18 Plt Morph) AM) [place] [address]-03-15 07:18:00 Test Item Value Reference Range Interpretation Comments Segs (test code = Segs) 83.0 45.0-75.0 [place] [address]-03-15 07:18:00 Test Item Value Reference Range Interpretation Comments Lymphocytes (test code = Lymphocytes) 11.2 20.0-40.0 [place] [address]-03-15 07:18:00 Test Item Value Reference Range Interpretation Comments Monocytes (test code = Monocytes) 4.4 2.0-12.0 [place] [address]-03-15 07:18:00 Test Item Value Reference Range Interpretation Comments Eosinophils (test code = 1.1 See_Comment [A utomated message] The Eosinophils) system which ge nerated this result tra nsmitted reference range : <=4.0. The reference r sharon was not used to int erpret this result as normal/abnormal . [place] [address]-03-15 07:18:00 Test Item Value Reference Range Interpretation Comments Basophils (test code = 0.3 See_Comment [Aut omated message] The Basophils) system which ge nerated this result tra nsmitted reference range : <=1.0. The reference r sharon was not used to int erpret this result as normal/abnormal . [facility] LakewayIdhkjcuWLKVUVGZAY2326-01-17 07:18:00 Test Item Value Reference Range Interpretation Comments Neutrophils # (test code = Neutrophils 11.2 1.5-8.1 #) [facility] LakewayVzcbdboZZODJALXIW9105-69-13 07:18:00 Test Item Value Reference Range Interpretation Comments Lymphocytes # (test code = Lymphocytes 1.5 1.0-5.5 #) [facility] LakewayWcobytsOSHYBLQEKL0199-60-63 07:18:00 Test Item Value Reference Range Interpretation Comments Monocytes # (test code 0.6 See_Comment [Aut omated message] The = Monocytes #) system which generated this result tra nsmitted reference range : <=0.8. The reference r sharon was not used to int erpret this result as normal/abnormal . [facility] LakewayBexjkdeNGYBDBFBOG9027-90-63 07:18:00 Test Item Value Reference Range Interpretation Comments Eosinophils # (test code 0.1 See_Comment [A utomated message] The = Eosinophils #) system whic h generated this result tra nsmitted reference range : <=0.5. The reference r sharon was not used to int erpret this result as normal/abnormal . [facility] LakewayGiuhnbtYODSBABNEA6633-80-07 07:18:00 Test Item Value Reference Range Interpretation Comments Basophils # (test code 0.0 See_Comment [Aut omated message] The = Basophils #) system which generated this result tra nsmitted reference range : <=0.2. The reference r sharon was not used to int erpret this result as normal/abnormal . [facility]ATH[facility] [id number] 07:18:00 Test Item Value Reference Range Interpretation Comments Ca Ion WB (test code = Ca Ion WB) 1.07 1.05-1.25 [facility] HospitalKiwigridROID [id number] 07:18:00 Test Item Value Reference Range Interpretation Comments Ca Norm WB (test code = Ca Norm WB) 1.09 1.05-1.25 [facility] CampusYapert [id number] 07:06:00 Test Item Value Reference Range Interpretation Comments Chloride Lvl (test code = Chloride Lvl) 105 95-109 [facility] CampusYapert [id number] 07:06:00 Test Item Value Reference Range Interpretation Comments CO2 (test code = CO2) 29 24-32 [facility] CampusBiosynthetic TechnologiesHEATHER VILLE [id number] 07:06:00 Test Item Value Reference Range Interpretation Comments AGAP (test code = AGAP) 11.8 10.0-20.0 [place] [address]-03-14 07:06:00 Test Item Value Reference Range Interpretation Comments Calcium Lvl (test code = Calcium Lvl) 8.5 8.5-10.5 [place] [address]-03-14 07:06:00 Test Item Value Reference Range Interpretation Comments B/C Ratio (test code = B/C Ratio) 26 1 6-25 [facility] CampusYapert [id number] 07:06:00 Test Item Value Reference Range Interpretation Comments Total Protein (test code = Total 6.9 6.4-8.4 Protein) [place] [address]-03-14 07:06:00 Test Item Value Reference Range Interpretation Comments Albumin Lvl (test code = Albumin Lvl) 3.1 3.5-5.0 [place] 414560-03-14 07:06:00 Test Item Value Reference Range Interpretation Comments Globulin (test code = Globulin) 3.8 2.7-4.2 [facility] CampusYapert [id number] 07:06:00 Test Item Value Reference Range Interpretation Comments A/G Ratio (test code = A/G Ratio) 0.8 1 0.7-1.6 [place] [address]-03-14 07:06:00 Test Item Value Reference Range Interpretation Comments ALT (test code = ALT) 132 See_Comment [Auto mated message] The system which ge nerated this result transmit roberto carlos reference range : <=65. The reference range was not used to interpr et this result as tyler l/abnormal. [facility] AGC [id number] 07:06:00 Test Item Value Reference Range Interpretation Comments AST (test code = AST) 184 See_Comment [Auto mated message] The system which ge nerated this result transmit roberto carlos reference range : <=37. The reference range was not used to interpr et this result as tyler l/abnormal. [facility] CampusYapert [id number] 07:06:00 Test Item Value Reference Range Interpretation Comments Alk Phos (test code = Alk Phos) 109 39-136 [facility]2020-03-14 07:06:00 Test Item Value Reference Range Interpretation Comments Bili Total (test code = Bili Total) 0.4 0.2-1.3 [facility]2020-03-14 07:06:00 Test Item Value Reference Range Interpretation Comments eGFR (test code = eGFR) 125 [facility] LakewayUhailthXEDPUFHXDJ8220-89-08 07:06:00 Test Item Value Reference Range Interpretation Comments WBC (test code = WBC) 9.8 3.7-10.4 [facility] LakewayWfdauyyMOERBSJXII7147-09-97 07:06:00 Test Item Value Reference Range Interpretation Comments RBC (test code = RBC) 3.94 4.20-5.40 [place] 590520-03-14 07:06:00 Test Item Value Reference Range Interpretation Comments Hgb (test code = Hgb) 12.4 12.0-16.0 [facility] LakewayTgitndjARTSUVFMDQ7745-94-82 07:06:00 Test Item Value Reference Range Interpretation Comments Hct (test code = Hct) 36.6 36.0-48.0 [facility] LakewayAakoisnVYHAGDQTMV9905-33-42 07:06:00 Test Item Value Reference Range Interpretation Comments MCV (test code = MCV) 92.9 80.0-98.0 [facility] LakewayDmcyzdeSIDZMUZLJN7788-52-21 07:06:00 Test Item Value Reference Range Interpretation Comments MCH (test code = MCH) 31.4 pg 27.0-31.0 [facility] LakewayKocolhdKAHSHFJFDR4522-75-22 07:06:00 Test Item Value Reference Range Interpretation Comments MCHC (test code = MCHC) 33.8 32.0-36.0 [facility] LakewayEruqltvPXLJFMFOQX4206-47-19 07:06:00 Test Item Value Reference Range Interpretation Comments RDW (test code = RDW) 13.1 11.5-14.5 [place] 590520-03-14 07:06:00 Test Item Value Reference Range Interpretation Comments Platelet (test code = Platelet) 246 133-450 [facility] LakewayXarocukIIAQXRXBPQ5883-71-44 07:06:00 Test Item Value Reference Range Interpretation Comments MPV (test code = MPV) 8.0 7.4-10.4 [facility] LakewayJuapxrxUGQIHYLNPQ9077-18-50 07:06:00 Test Item Value Reference Range Interpretation Comments PTT (test code = PTT) 31.4 s 22.9-35.8 [facility] LakewayXiybcjsGMLAQHXEDT5997-66-19 07:06:00 Test Item Value Reference Range Interpretation Comments PT (test code = PT) 13.7 s 12.0-14.7 [facility] LakewayPuvzbjlFEQTOKWUYJ2554-26-44 07:06:00 Test Item Value Reference Range Interpretation Comments INR (test code = INR) 1.05 1 0.85-1.17 [facility] LakewayFhgkbhbTRSYSRRJFY3728-38-80 07:06:00 Test Item Value Reference Range Interpretation Comments Segs (test code = Segs) 68.3 45.0-75.0 [facility] LakewayBpgnigsSBDNZVMRMY6054-48-88 07:06:00 Test Item Value Reference Range Interpretation Comments Lymphocytes (test code = Lymphocytes) 21.7 20.0-40.0 [facility] LakewayPjnbrolXNVCKGNGXC0724-35-10 07:06:00 Test Item Value Reference Range Interpretation Comments Monocytes (test code = Monocytes) 7.7 2.0-12.0 [facility] LakewayZgodsvtSTLSPLJBEM9166-43-92 07:06:00 Test Item Value Reference Range Interpretation Comments Eosinophils (test code = 1.7 See_Comment [A utomated message] The Eosinophils) system which ge nerated this result tra nsmitted reference range : <=4.0. The reference r sharon was not used to int erpret this result as normal/abnormal . [facility] LakewayCjapkbpQVMRATHZPZ7389-01-36 07:06:00 Test Item Value Reference Range Interpretation Comments Basophils (test code = 0.6 See_Comment [Aut omated message] The Basophils) system which ge nerated this result tra nsmitted reference range : <=1.0. The reference r sharon was not used to int erpret this result as normal/abnormal . [facility] LakewaySghhfgeQUEDXIOIQV1713-42-91 07:06:00 Test Item Value Reference Range Interpretation Comments Neutrophils # (test code = Neutrophils 6.7 1.5-8.1 #) [facility] LakewayOxivevlYMDBYRIMCF3166-87-58 07:06:00 Test Item Value Reference Range Interpretation Comments Lymphocytes # (test code = Lymphocytes 2.1 1.0-5.5 #) [facility] LakewayKorihmpGEJRPXQBNI9712-50-42 07:06:00 Test Item Value Reference Range Interpretation Comments Monocytes # (test code 0.8 See_Comment [Aut omated message] The = Monocytes #) system which generated this result tra nsmitted reference range : <=0.8. The reference r sharon was not used to int erpret this result as normal/abnormal . [facility] LakewaySiykeohBILBKLDKNJ7174-87-63 07:06:00 Test Item Value Reference Range Interpretation Comments Eosinophils # (test code 0.2 See_Comment [A utomated message] The = Eosinophils #) system whic h generated this result tra nsmitted reference range : <=0.5. The reference r sharon was not used to int erpret this result as normal/abnormal . [place] 590520-03-14 07:06:00 Test Item Value Reference Range Interpretation Comments Basophils # (test code 0.1 See_Comment [Aut omated message] The = Basophils #) system which generated this result tra nsmitted reference range : <=0.2. The reference r sharon was not used to int erpret this result as normal/abnormal . [facility] CampusYapert [id number] 07:06:00 Test Item Value Reference Range Interpretation Comments Phosphorus (test code = Phosphorus) 4.0 2.5-4.5 [facility] CampusYapert [id number] 07:06:00 Test Item Value Reference Range Interpretation Comments Magnesium Lvl (test code = Magnesium 1.7 1.8-2.4 Lvl) [facility] CampusYapert [id number] 07:06:00 Test Item Value Reference Range Interpretation Comments Glucose Lvl (test code = Glucose Lvl) 100 70-99 [facility] CampusYapert [id number] 07:06:00 Test Item Value Reference Range Interpretation Comments BUN (test code = BUN) 13 7-22 [facility] CampusYaper[facility] [id number] 07:06:00 Test Item Value Reference Range Interpretation Comments Creatinine Lvl (test code = Creatinine 0.50 0.50-1.40 Lvl) [facility] CampusYapert [id number] 07:06:00 Test Item Value Reference Range Interpretation Comments Sodium Lvl (test code = Sodium Lvl) 142 135-145 [facility] [id number] 07:06:00 Test Item Value Reference Range Interpretation Comments Potassium Lvl (test code = Potassium 3.8 3.5-5.1 Lvl) [facility] [id number] 07:06:00 Test Item Value Reference Range Interpretation Comments Chloride Lvl (test code = Chloride Lvl) 105 95-109 [facility] CampusBiosynthetic TechnologiesDENISE VILLE [id number] 07:06:00 Test Item Value Reference Range Interpretation Comments CO2 (test code = CO2) 29 24-32 [facility] [id number] 07:06:00 Test Item Value Reference Range Interpretation Comments AGAP (test code = AGAP) 11.8 10.0-20.0 [facility] [id number] 07:06:00 Test Item Value Reference Range Interpretation Comments Calcium Lvl (test code = Calcium Lvl) 8.5 8.5-10.5 [facility] [id number] 07:06:00 Test Item Value Reference Range Interpretation Comments B/C Ratio (test code = B/C Ratio) 26 1 6-25 [facility] [id number] 07:06:00 Test Item Value Reference Range Interpretation Comments Total Protein (test code = Total 6.9 6.4-8.4 Protein) [facility] [id number] 07:06:00 Test Item Value Reference Range Interpretation Comments Albumin Lvl (test code = Albumin Lvl) 3.1 3.5-5.0 [facility] [id number] 07:06:00 Test Item Value Reference Range Interpretation Comments Globulin (test code = Globulin) 3.8 2.7-4.2 [facility] [id number] 07:06:00 Test Item Value Reference Range Interpretation Comments A/G Ratio (test code = A/G Ratio) 0.8 1 0.7-1.6 [facility] [id number] 07:06:00 Test Item Value Reference Range Interpretation Comments ALT (test code = ALT) 132 See_Comment [Auto mated message] The system which ge nerated this result transmit roberto carlos reference range : <=65. The reference range was not used to interpr et this result as tyler l/abnormal. [facility] [id number] 07:06:00 Test Item Value Reference Range Interpretation Comments AST (test code = AST) 184 See_Comment [Auto mated message] The system which ge nerated this result transmit roberto carlos reference range : <=37. The reference range was not used to interpr et this result as tyler l/abnormal. [facility] [id number] 07:06:00 Test Item Value Reference Range Interpretation Comments Alk Phos (test code = Alk Phos) 109 39-136 [facility]2020-03-14 07:06:00 Test Item Value Reference Range Interpretation Comments Bili Total (test code = Bili Total) 0.4 0.2-1.3 [facility] [id number] 07:06:00 Test Item Value Reference Range Interpretation Comments eGFR (test code = eGFR) 125 [facility]wayMquncwfAUIHCRFSEP4335-24-31 07:06:00 Test Item Value Reference Range Interpretation Comments WBC (test code = WBC) 9.8 3.7-10.4 [place] 590520-03-14 07:06:00 Test Item Value Reference Range Interpretation Comments RBC (test code = RBC) 3.94 4.20-5.40 [facility] LakewayAxxkijiVTXKCHQNOR3228-59-95 07:06:00 Test Item Value Reference Range Interpretation Comments Hgb (test code = Hgb) 12.4 12.0-16.0 [place] [address]-03-14 07:06:00 Test Item Value Reference Range Interpretation Comments Hct (test code = Hct) 36.6 36.0-48.0 [facility] LakewayPtnxfcxMVXWYFQELP2032-40-80 07:06:00 Test Item Value Reference Range Interpretation Comments MCV (test code = MCV) 92.9 80.0-98.0 [place] [address]-03-14 07:06:00 Test Item Value Reference Range Interpretation Comments MCH (test code = MCH) 31.4 pg 27.0-31.0 [place] [address]-03-14 07:06:00 Test Item Value Reference Range Interpretation Comments MCHC (test code = MCHC) 33.8 32.0-36.0 [place] [address]-03-14 07:06:00 Test Item Value Reference Range Interpretation Comments RDW (test code = RDW) 13.1 11.5-14.5 [place] 590520-03-14 07:06:00 Test Item Value Reference Range Interpretation Comments Platelet (test code = Platelet) 246 133-450 [facility] LakewayGsknkxvSHFITRRSIV1082-39-84 07:06:00 Test Item Value Reference Range Interpretation Comments MPV (test code = MPV) 8.0 7.4-10.4 [place] 590520-03-14 07:06:00 Test Item Value Reference Range Interpretation Comments PTT (test code = PTT) 31.4 s 22.9-35.8 [place] 590520-03-14 07:06:00 Test Item Value Reference Range Interpretation Comments PT (test code = PT) 13.7 s 12.0-14.7 [place] 590520-03-14 07:06:00 Test Item Value Reference Range Interpretation Comments INR (test code = INR) 1.05 1 0.85-1.17 [place] 590520-03-14 07:06:00 Test Item Value Reference Range Interpretation Comments Segs (test code = Segs) 68.3 45.0-75.0 [place] 590520-03-14 07:06:00 Test Item Value Reference Range Interpretation Comments Lymphocytes (test code = Lymphocytes) 21.7 20.0-40.0 [place] 590520-03-14 07:06:00 Test Item Value Reference Range Interpretation Comments Monocytes (test code = Monocytes) 7.7 2.0-12.0 [facility] [id number] 07:06:00 Test Item Value Reference Range Interpretation Comments Eosinophils (test code = 1.7 See_Comment [A utomated message] The Eosinophils) system which ge nerated this result tra nsmitted reference range : <=4.0. The reference r sharon was not used to int erpret this result as normal/abnormal . [facility] LakewayLjqopxfLCOSFELYHE3225-55-24 07:06:00 Test Item Value Reference Range Interpretation Comments Basophils (test code = 0.6 See_Comment [Aut omated message] The Basophils) system which ge nerated this result tra nsmitted reference range : <=1.0. The reference r sharon was not used to int erpret this result as normal/abnormal . [facility] LakewayEefkggrEOWZIFBKQD6057-96-33 07:06:00 Test Item Value Reference Range Interpretation Comments Neutrophils # (test code = Neutrophils 6.7 1.5-8.1 #) [place] 590520-03-14 07:06:00 Test Item Value Reference Range Interpretation Comments Lymphocytes # (test code = Lymphocytes 2.1 1.0-5.5 #) [place] [address]-03-14 07:06:00 Test Item Value Reference Range Interpretation Comments Monocytes # (test code 0.8 See_Comment [Aut omated message] The = Monocytes #) system which generated this result tra nsmitted reference range : <=0.8. The reference r sharon was not used to int erpret this result as normal/abnormal . [place] [address]-03-14 07:06:00 Test Item Value Reference Range Interpretation Comments Eosinophils # (test code 0.2 See_Comment [A utomated message] The = Eosinophils #) system whic h generated this result tra nsmitted reference range : <=0.5. The reference r sharon was not used to int erpret this result as normal/abnormal . [place] [address]-03-14 07:06:00 Test Item Value Reference Range Interpretation Comments Basophils # (test code 0.1 See_Comment [Aut omated message] The = Basophils #) system which generated this result tra nsmitted reference range : <=0.2. The reference r sharon was not used to int erpret this result as normal/abnormal . [place] 414560-03-14 07:06:00 Test Item Value Reference Range Interpretation Comments Phosphorus (test code = Phosphorus) 4.0 2.5-4.5 [place] [address]-03-14 07:06:00 Test Item Value Reference Range Interpretation Comments Magnesium Lvl (test code = Magnesium 1.7 1.8-2.4 Lvl) [place] 414560-03-14 07:06:00 Test Item Value Reference Range Interpretation Comments Glucose Lvl (test code = Glucose Lvl) 100 70-99 [place] [address]-03-14 07:06:00 Test Item Value Reference Range Interpretation Comments BUN (test code = BUN) 13 7-22 [place] [address]-03-14 07:06:00 Test Item Value Reference Range Interpretation Comments Creatinine Lvl (test code = Creatinine 0.50 0.50-1.40 Lvl) [place] [address]-03-14 07:06:00 Test Item Value Reference Range Interpretation Comments Sodium Lvl (test code = Sodium Lvl) 142 135-145 [place] 414560-03-14 07:06:00 Test Item Value Reference Range Interpretation Comments Potassium Lvl (test code = Potassium 3.8 3.5-5.1 Lvl) [place] 414560-03-14 07:06:00 Test Item Value Reference Range Interpretation Comments Chloride Lvl (test code = Chloride Lvl) 105 95-109 [place] 414560-03-14 07:06:00 Test Item Value Reference Range Interpretation Comments CO2 (test code = CO2) 29 24-32 [place] 414560-03-14 07:06:00 Test Item Value Reference Range Interpretation Comments AGAP (test code = AGAP) 11.8 10.0-20.0 [place] 414560-03-14 07:06:00 Test Item Value Reference Range Interpretation Comments Calcium Lvl (test code = Calcium Lvl) 8.5 8.5-10.5 [place] 414560-03-14 07:06:00 Test Item Value Reference Range Interpretation Comments B/C Ratio (test code = B/C Ratio) 26 1 6-25 [place] [address]-03-14 07:06:00 Test Item Value Reference Range Interpretation Comments Total Protein (test code = Total 6.9 6.4-8.4 Protein) [place] 414560-03-14 07:06:00 Test Item Value Reference Range Interpretation Comments Albumin Lvl (test code = Albumin Lvl) 3.1 3.5-5.0 [place] 414560-03-14 07:06:00 Test Item Value Reference Range Interpretation Comments Globulin (test code = Globulin) 3.8 2.7-4.2 [place] [address]-03-14 07:06:00 Test Item Value Reference Range Interpretation Comments A/G Ratio (test code = A/G Ratio) 0.8 1 0.7-1.6 [place] 414560-03-14 07:06:00 Test Item Value Reference Range Interpretation Comments ALT (test code = ALT) 132 See_Comment [Auto mated message] The system which ge nerated this result transmit roberto acrlos reference range : <=65. The reference range was not used to interpr et this result as tyler l/abnormal. [facility] [id number] 07:06:00 Test Item Value Reference Range Interpretation Comments AST (test code = AST) 184 See_Comment [Auto mated message] The system which ge nerated this result transmit roberto carlos reference range : <=37. The reference range was not used to interpr et this result as tyler l/abnormal. [facility] [id number] 07:06:00 Test Item Value Reference Range Interpretation Comments Alk Phos (test code = Alk Phos) 109 39-136 [place] 414560-03-14 07:06:00 Test Item Value Reference Range Interpretation Comments Bili Total (test code = Bili Total) 0.4 0.2-1.3 [facility] [id number] 07:06:00 Test Item Value Reference Range Interpretation Comments eGFR (test code = eGFR) 125 [facility] LakewayJpadrueTYLAIAANRT4043-87-88 07:06:00 Test Item Value Reference Range Interpretation Comments WBC (test code = WBC) 9.8 3.7-10.4 [place] 590520-03-14 07:06:00 Test Item Value Reference Range Interpretation Comments RBC (test code = RBC) 3.94 4.20-5.40 [facility] LakewayHwaipvhWOHQDOITNO0769-72-49 07:06:00 Test Item Value Reference Range Interpretation Comments Hgb (test code = Hgb) 12.4 12.0-16.0 [facility] LakewayNwpcdfoWISHTFRKEB4120-49-17 07:06:00 Test Item Value Reference Range Interpretation Comments Hct (test code = Hct) 36.6 36.0-48.0 [place] 590520-03-14 07:06:00 Test Item Value Reference Range Interpretation Comments MCV (test code = MCV) 92.9 80.0-98.0 [place] [address]-03-14 07:06:00 Test Item Value Reference Range Interpretation Comments MCH (test code = MCH) 31.4 pg 27.0-31.0 [place] [address]-03-14 07:06:00 Test Item Value Reference Range Interpretation Comments MCHC (test code = MCHC) 33.8 32.0-36.0 [place] 590520-03-14 07:06:00 Test Item Value Reference Range Interpretation Comments RDW (test code = RDW) 13.1 11.5-14.5 [facility] LakewaySarvknlIJCCYYXSRA5997-51-89 07:06:00 Test Item Value Reference Range Interpretation Comments Platelet (test code = Platelet) 246 133-450 [facility] LakewayCrehegnQWGINSXNSS4501-21-76 07:06:00 Test Item Value Reference Range Interpretation Comments MPV (test code = MPV) 8.0 7.4-10.4 [facility]2020-03-14 07:06:00 Test Item Value Reference Range Interpretation Comments Phosphorus (test code = Phosphorus) 4.0 2.5-4.5 [facility]2020-03-14 07:06:00 Test Item Value Reference Range Interpretation Comments Magnesium Lvl (test code = Magnesium 1.7 1.8-2.4 Lvl) [facility]2020-03-14 07:06:00 Test Item Value Reference Range Interpretation Comments Glucose Lvl (test code = Glucose Lvl) 100 70-99 [facility]2020-03-14 07:06:00 Test Item Value Reference Range Interpretation Comments BUN (test code = BUN) 13 7-22 [facility]2020-03-14 07:06:00 Test Item Value Reference Range Interpretation Comments Creatinine Lvl (test code = Creatinine 0.50 0.50-1.40 Lvl) [facility]2020-03-14 07:06:00 Test Item Value Reference Range Interpretation Comments Sodium Lvl (test code = Sodium Lvl) 142 135-145 [facility]2020-03-14 07:06:00 Test Item Value Reference Range Interpretation Comments Potassium Lvl (test code = Potassium 3.8 3.5-5.1 Lvl) [facility]2020-03-14 07:06:00 Test Item Value Reference Range Interpretation Comments Chloride Lvl (test code = Chloride Lvl) 105 95-109 [facility]2020-03-14 07:06:00 Test Item Value Reference Range Interpretation Comments CO2 (test code = CO2) 29 24-32 [facility]2020-03-14 07:06:00 Test Item Value Reference Range Interpretation Comments AGAP (test code = AGAP) 11.8 10.0-20.0 [place] 414560-03-14 07:06:00 Test Item Value Reference Range Interpretation Comments Calcium Lvl (test code = Calcium Lvl) 8.5 8.5-10.5 [facility] [id number] 07:06:00 Test Item Value Reference Range Interpretation Comments B/C Ratio (test code = B/C Ratio) 26 1 6-25 [facility] [id number] 07:06:00 Test Item Value Reference Range Interpretation Comments Total Protein (test code = Total 6.9 6.4-8.4 Protein) [facility] [id number] 07:06:00 Test Item Value Reference Range Interpretation Comments Albumin Lvl (test code = Albumin Lvl) 3.1 3.5-5.0 [facility] [id number] 07:06:00 Test Item Value Reference Range Interpretation Comments Globulin (test code = Globulin) 3.8 2.7-4.2 [facility] [id number] 07:06:00 Test Item Value Reference Range Interpretation Comments A/G Ratio (test code = A/G Ratio) 0.8 1 0.7-1.6 [facility] [id number] 07:06:00 Test Item Value Reference Range Interpretation Comments ALT (test code = ALT) 132 See_Comment [Auto mated message] The system which ge nerated this result transmit roberto carlos reference range : <=65. The reference range was not used to interpr et this result as tyler l/abnormal. [facility] [id number] 07:06:00 Test Item Value Reference Range Interpretation Comments AST (test code = AST) 184 See_Comment [Auto mated message] The system which ge nerated this result transmit roberto carlos reference range : <=37. The reference range was not used to interpr et this result as tyler l/abnormal. [facility] [id number] 07:06:00 Test Item Value Reference Range Interpretation Comments Alk Phos (test code = Alk Phos) 109 39-136 [facility] [id number] 07:06:00 Test Item Value Reference Range Interpretation Comments Bili Total (test code = Bili Total) 0.4 0.2-1.3 [facility] [id number] 07:06:00 Test Item Value Reference Range Interpretation Comments eGFR (test code = eGFR) 125 [facility] LakewayNcumccdLZPNMFYHIC6554-37-80 07:06:00 Test Item Value Reference Range Interpretation Comments WBC (test code = WBC) 9.8 3.7-10.4 [facility] LakewayZzzpwenKTLJACXXKS4524-54-98 07:06:00 Test Item Value Reference Range Interpretation Comments RBC (test code = RBC) 3.94 4.20-5.40 [place] [address]-03-14 07:06:00 Test Item Value Reference Range Interpretation Comments Hgb (test code = Hgb) 12.4 12.0-16.0 [place] [address]-03-14 07:06:00 Test Item Value Reference Range Interpretation Comments Hct (test code = Hct) 36.6 36.0-48.0 [facility] LakewayOacdrkgLZTOAKQVBV5782-01-65 07:06:00 Test Item Value Reference Range Interpretation Comments MCV (test code = MCV) 92.9 80.0-98.0 [place] [address]-03-14 07:06:00 Test Item Value Reference Range Interpretation Comments MCH (test code = MCH) 31.4 pg 27.0-31.0 [place] [address]-03-14 07:06:00 Test Item Value Reference Range Interpretation Comments MCHC (test code = MCHC) 33.8 32.0-36.0 [facility] LakewayLmnyckmXFSSXFMCNK3616-51-93 07:06:00 Test Item Value Reference Range Interpretation Comments RDW (test code = RDW) 13.1 11.5-14.5 [place] [address]-03-14 07:06:00 Test Item Value Reference Range Interpretation Comments Platelet (test code = Platelet) 246 133-450 [facility] LakewayKzynxypBVBEYSKLAU9956-45-67 07:06:00 Test Item Value Reference Range Interpretation Comments MPV (test code = MPV) 8.0 7.4-10.4 [place] [address]-03-14 07:06:00 Test Item Value Reference Range Interpretation Comments PTT (test code = PTT) 31.4 s 22.9-35.8 [place] [address]-03-14 07:06:00 Test Item Value Reference Range Interpretation Comments PT (test code = PT) 13.7 s 12.0-14.7 [facility] LakewayUocdudgRWMSTONIVI7446-86-34 07:06:00 Test Item Value Reference Range Interpretation Comments INR (test code = INR) 1.05 1 0.85-1.17 [facility] LakewayUhmenbvAVWBGJSTWV6507-45-20 07:06:00 Test Item Value Reference Range Interpretation Comments Segs (test code = Segs) 68.3 45.0-75.0 [facility] LakewayKoooabjKUJNSCFQMJ0350-09-93 07:06:00 Test Item Value Reference Range Interpretation Comments Lymphocytes (test code = Lymphocytes) 21.7 20.0-40.0 [place] 590520-03-14 07:06:00 Test Item Value Reference Range Interpretation Comments Monocytes (test code = Monocytes) 7.7 2.0-12.0 [facility] LakewayIaqcwzoJQTPDZCJOX6515-58-82 07:06:00 Test Item Value Reference Range Interpretation Comments Eosinophils (test code = 1.7 See_Comment [A utomated message] The Eosinophils) system which ge nerated this result tra nsmitted reference range : <=4.0. The reference r sharon was not used to int erpret this result as normal/abnormal . [facility] LakewayZhrmraaFDDEPTVLMW8749-60-94 07:06:00 Test Item Value Reference Range Interpretation Comments Basophils (test code = 0.6 See_Comment [Aut omated message] The Basophils) system which ge nerated this result tra nsmitted reference range : <=1.0. The reference r sharon was not used to int erpret this result as normal/abnormal . [facility] LakewayWilumguBUBFZAHAFK3614-36-12 07:06:00 Test Item Value Reference Range Interpretation Comments Neutrophils # (test code = Neutrophils 6.7 1.5-8.1 #) [facility] LakewaySueubuvSABAOLVNMY0735-50-65 07:06:00 Test Item Value Reference Range Interpretation Comments Lymphocytes # (test code = Lymphocytes 2.1 1.0-5.5 #) [facility] LakewayOakiqsdCLNXZAHORN9675-93-29 07:06:00 Test Item Value Reference Range Interpretation Comments Monocytes # (test code 0.8 See_Comment [Aut omated message] The = Monocytes #) system which generated this result tra nsmitted reference range : <=0.8. The reference r sharon was not used to int erpret this result as normal/abnormal . [place] [address]-03-14 07:06:00 Test Item Value Reference Range Interpretation Comments Eosinophils # (test code 0.2 See_Comment [A utomated message] The = Eosinophils #) system whic h generated this result tra nsmitted reference range : <=0.5. The reference r sharon was not used to int erpret this result as normal/abnormal . [facility] LakewayEhsstmqCZEAXBFDLY1910-14-59 07:06:00 Test Item Value Reference Range Interpretation Comments Basophils # (test code 0.1 See_Comment [Aut omated message] The = Basophils #) system which generated this result tra nsmitted reference range : <=0.2. The reference r sharon was not used to int erpret this result as normal/abnormal . [facility] LakewayGkecyzpOBOLFCZMTH4923-23-63 07:06:00 Test Item Value Reference Range Interpretation Comments PTT (test code = PTT) 31.4 s 22.9-35.8 [place] 590520-03-14 07:06:00 Test Item Value Reference Range Interpretation Comments PT (test code = PT) 13.7 s 12.0-14.7 [facility] LakewayPkcldgjKASTNCTTCM5013-69-82 07:06:00 Test Item Value Reference Range Interpretation Comments INR (test code = INR) 1.05 1 0.85-1.17 [facility] LakewayXfrhofmDWDHEVWZXS2232-62-36 07:06:00 Test Item Value Reference Range Interpretation Comments Segs (test code = Segs) 68.3 45.0-75.0 [facility] LakewayHoiuorvZISMWUPRLG6173-60-00 07:06:00 Test Item Value Reference Range Interpretation Comments Lymphocytes (test code = Lymphocytes) 21.7 20.0-40.0 [facility] LakewayHjasvkpUVKIEQZXUC3760-55-40 07:06:00 Test Item Value Reference Range Interpretation Comments Monocytes (test code = Monocytes) 7.7 2.0-12.0 [place] 590520-03-14 07:06:00 Test Item Value Reference Range Interpretation Comments Eosinophils (test code = 1.7 See_Comment [A utomated message] The Eosinophils) system which ge nerated this result tra nsmitted reference range : <=4.0. The reference r sharon was not used to int erpret this result as normal/abnormal . [facility] LakewayZedrwdmNXCKJSHNAD2322-39-63 07:06:00 Test Item Value Reference Range Interpretation Comments Basophils (test code = 0.6 See_Comment [Aut omated message] The Basophils) system which ge nerated this result tra nsmitted reference range : <=1.0. The reference r sharon was not used to int erpret this result as normal/abnormal . [place] 590520-03-14 07:06:00 Test Item Value Reference Range Interpretation Comments Neutrophils # (test code = Neutrophils 6.7 1.5-8.1 #) [place] 590520-03-14 07:06:00 Test Item Value Reference Range Interpretation Comments Lymphocytes # (test code = Lymphocytes 2.1 1.0-5.5 #) [place] 590520-03-14 07:06:00 Test Item Value Reference Range Interpretation Comments Monocytes # (test code 0.8 See_Comment [Aut omated message] The = Monocytes #) system which generated this result tra nsmitted reference range : <=0.8. The reference r sharon was not used to int erpret this result as normal/abnormal . [facility] LakewayMupqpghPHBYFIYMGM1872-06-26 07:06:00 Test Item Value Reference Range Interpretation Comments Eosinophils # (test code 0.2 See_Comment [A utomated message] The = Eosinophils #) system whic h generated this result tra nsmitted reference range : <=0.5. The reference r sharon was not used to int erpret this result as normal/abnormal . [facility] LakewayQrjypjbEAMQYQKYDI6332-06-30 07:06:00 Test Item Value Reference Range Interpretation Comments Basophils # (test code 0.1 See_Comment [Aut omated message] The = Basophils #) system which generated this result tra nsmitted reference range : <=0.2. The reference r sharon was not used to int erpret this result as normal/abnormal . [facility] [id number] 07:06:00 Test Item Value Reference Range Interpretation Comments Phosphorus (test code = Phosphorus) 4.0 2.5-4.5 [facility] [id number] 07:06:00 Test Item Value Reference Range Interpretation Comments Magnesium Lvl (test code = Magnesium 1.7 1.8-2.4 Lvl) [facility] [id number] 07:06:00 Test Item Value Reference Range Interpretation Comments Glucose Lvl (test code = Glucose Lvl) 100 70-99 [place] [id number] 07:06:00 Test Item Value Reference Range Interpretation Comments BUN (test code = BUN) 13 7-22 [place] 414560-03-14 07:06:00 Test Item Value Reference Range Interpretation Comments Creatinine Lvl (test code = Creatinine 0.50 0.50-1.40 Lvl) [facility]2020-03-14 07:06:00 Test Item Value Reference Range Interpretation Comments Sodium Lvl (test code = Sodium Lvl) 142 135-145 [facility]2020-03-14 07:06:00 Test Item Value Reference Range Interpretation Comments Potassium Lvl (test code = Potassium 3.8 3.5-5.1 Lvl) [facility]2020-03-14 07:06:00 Test Item Value Reference Range Interpretation Comments Chloride Lvl (test code = Chloride Lvl) 105 95-109 [facility]2020-03-14 07:06:00 Test Item Value Reference Range Interpretation Comments CO2 (test code = CO2) 29 24-32 [place] 414560-03-14 07:06:00 Test Item Value Reference Range Interpretation Comments AGAP (test code = AGAP) 11.8 10.0-20.0 [place] 414560-03-14 07:06:00 Test Item Value Reference Range Interpretation Comments Calcium Lvl (test code = Calcium Lvl) 8.5 8.5-10.5 [facility]2020-03-14 07:06:00 Test Item Value Reference Range Interpretation Comments B/C Ratio (test code = B/C Ratio) 26 1 6-25 [place] 414560-03-14 07:06:00 Test Item Value Reference Range Interpretation Comments Total Protein (test code = Total 6.9 6.4-8.4 Protein) [place] 414560-03-14 07:06:00 Test Item Value Reference Range Interpretation Comments Albumin Lvl (test code = Albumin Lvl) 3.1 3.5-5.0 [place] 414560-03-14 07:06:00 Test Item Value Reference Range Interpretation Comments Globulin (test code = Globulin) 3.8 2.7-4.2 [facility] [id number] 07:06:00 Test Item Value Reference Range Interpretation Comments A/G Ratio (test code = A/G Ratio) 0.8 1 0.7-1.6 [facility] [id number] 07:06:00 Test Item Value Reference Range Interpretation Comments ALT (test code = ALT) 132 See_Comment [Auto mated message] The system which ge nerated this result transmit roberto carlos reference range : <=65. The reference range was not used to interpr et this result as tyler l/abnormal. [facility] [id number] 07:06:00 Test Item Value Reference Range Interpretation Comments AST (test code = AST) 184 See_Comment [Auto mated message] The system which ge nerated this result transmit roberto carlos reference range : <=37. The reference range was not used to interpr et this result as tyler l/abnormal. [facility] [id number] 07:06:00 Test Item Value Reference Range Interpretation Comments Alk Phos (test code = Alk Phos) 109 39-136 [facility] [id number] 07:06:00 Test Item Value Reference Range Interpretation Comments Bili Total (test code = Bili Total) 0.4 0.2-1.3 [facility] [id number] 07:06:00 Test Item Value Reference Range Interpretation Comments eGFR (test code = eGFR) 125 [facility] HospitalPjvyceyOXARZUAFFT1877-61-13 07:06:00 Test Item Value Reference Range Interpretation Comments WBC (test code = WBC) 9.8 3.7-10.4 [place] [address]-03-14 07:06:00 Test Item Value Reference Range Interpretation Comments RBC (test code = RBC) 3.94 4.20-5.40 [facility] CampusErqxpspMYRGOCUMEG1352-87-88 07:06:00 Test Item Value Reference Range Interpretation Comments Hgb (test code = Hgb) 12.4 12.0-16.0 [facility] HospitalQltlhfgCBEHMAVJPH8418-59-61 07:06:00 Test Item Value Reference Range Interpretation Comments Hct (test code = Hct) 36.6 36.0-48.0 [facility] CampusEfyoodtQLJWRKFTVY4689-39-70 07:06:00 Test Item Value Reference Range Interpretation Comments MCV (test code = MCV) 92.9 80.0-98.0 [facility]wayHlisqceBGEGUGPNPW5645-70-46 07:06:00 Test Item Value Reference Range Interpretation Comments MCH (test code = MCH) 31.4 pg 27.0-31.0 [facility] LakewayCgnkwxzXDRROYWWVI4572-49-25 07:06:00 Test Item Value Reference Range Interpretation Comments MCHC (test code = MCHC) 33.8 32.0-36.0 [facility] LakewayBfbfabrWHXOTWOOXH2342-19-87 07:06:00 Test Item Value Reference Range Interpretation Comments RDW (test code = RDW) 13.1 11.5-14.5 [facility] LakewayWtpcbivSKTDHCBJCH0412-20-07 07:06:00 Test Item Value Reference Range Interpretation Comments Platelet (test code = Platelet) 246 133-450 [facility] LakewayJwrlcluSXZBZLYWWM9960-66-79 07:06:00 Test Item Value Reference Range Interpretation Comments MPV (test code = MPV) 8.0 7.4-10.4 [facility] LakewayYpnuarzXRPHYZCYGM7484-48-76 07:06:00 Test Item Value Reference Range Interpretation Comments PTT (test code = PTT) 31.4 s 22.9-35.8 [facility] LakewaySpnvcpvWCPIZAXSLQ8458-28-20 07:06:00 Test Item Value Reference Range Interpretation Comments PT (test code = PT) 13.7 s 12.0-14.7 [facility] LakewaySafjqiqSDHHDRWSDK9801-19-55 07:06:00 Test Item Value Reference Range Interpretation Comments INR (test code = INR) 1.05 1 0.85-1.17 [facility] LakewayEgyehrpNZKFSCRTRW7801-96-04 07:06:00 Test Item Value Reference Range Interpretation Comments Segs (test code = Segs) 68.3 45.0-75.0 [facility] LakewayTimgdbiKKUNIMEFRJ6877-22-65 07:06:00 Test Item Value Reference Range Interpretation Comments Lymphocytes (test code = Lymphocytes) 21.7 20.0-40.0 [facility] LakewayOzsxlmjYZZHOJSSAF2429-45-16 07:06:00 Test Item Value Reference Range Interpretation Comments Monocytes (test code = Monocytes) 7.7 2.0-12.0 [facility] LakewayMfkzfamDNQDWNUIUR7535-22-20 07:06:00 Test Item Value Reference Range Interpretation Comments Eosinophils (test code = 1.7 See_Comment [A utomated message] The Eosinophils) system which ge nerated this result tra nsmitted reference range : <=4.0. The reference r sharon was not used to int erpret this result as normal/abnormal . [facility] LakewayRcqziizYSGQXLPZCT3238-86-58 07:06:00 Test Item Value Reference Range Interpretation Comments Basophils (test code = 0.6 See_Comment [Aut omated message] The Basophils) system which ge nerated this result tra nsmitted reference range : <=1.0. The reference r sharon was not used to int erpret this result as normal/abnormal . [facility] LakewayNbfwvdiBJZQYYMFCV7204-05-06 07:06:00 Test Item Value Reference Range Interpretation Comments Neutrophils # (test code = Neutrophils 6.7 1.5-8.1 #) [facility] LakewayPuolaioUKONWTTBCB7046-09-89 07:06:00 Test Item Value Reference Range Interpretation Comments Lymphocytes # (test code = Lymphocytes 2.1 1.0-5.5 #) [facility] LakewayJzwcpypVLCNTRQHJC6569-61-84 07:06:00 Test Item Value Reference Range Interpretation Comments Monocytes # (test code 0.8 See_Comment [Aut omated message] The = Monocytes #) system which generated this result tra nsmitted reference range : <=0.8. The reference r sharon was not used to int erpret this result as normal/abnormal . [facility] LakewayZtdkboxTSABCGTUYA9100-37-38 07:06:00 Test Item Value Reference Range Interpretation Comments Eosinophils # (test code 0.2 See_Comment [A utomated message] The = Eosinophils #) system whic h generated this result tra nsmitted reference range : <=0.5. The reference r sharon was not used to int erpret this result as normal/abnormal . [facility] LakewayNyifbfbKOLYZJTLZK0924-94-36 07:06:00 Test Item Value Reference Range Interpretation Comments Basophils # (test code 0.1 See_Comment [Aut omated message] The = Basophils #) system which generated this result tra nsmitted reference range : <=0.2. The reference r sharon was not used to int erpret this result as normal/abnormal . [facility] CampusGeofeediaMPRFE3883-45-81 07:06:00 Test Item Value Reference Range Interpretation Comments Phosphorus (test code = Phosphorus) 4.0 2.5-4.5 [facility]2020-03-14 07:06:00 Test Item Value Reference Range Interpretation Comments Magnesium Lvl (test code = Magnesium 1.7 1.8-2.4 Lvl) [place] 414560-03-14 07:06:00 Test Item Value Reference Range Interpretation Comments Glucose Lvl (test code = Glucose Lvl) 100 70-99 [place] 414560-03-14 07:06:00 Test Item Value Reference Range Interpretation Comments BUN (test code = BUN) 13 7-22 [place] [address]-03-14 07:06:00 Test Item Value Reference Range Interpretation Comments Creatinine Lvl (test code = Creatinine 0.50 0.50-1.40 Lvl) [place] 414560-03-14 07:06:00 Test Item Value Reference Range Interpretation Comments Sodium Lvl (test code = Sodium Lvl) 142 135-145 [place] 414560-03-14 07:06:00 Test Item Value Reference Range Interpretation Comments Potassium Lvl (test code = Potassium 3.8 3.5-5.1 Lvl) [facility]2020-03-13 16:12:00 Test Item Value Reference Range Interpretation Comments Magnesium Lvl (test code = Magnesium 1.9 1.8-2.4 Lvl) [facility]2020-03-13 16:12:00 Test Item Value Reference Range Interpretation Comments Phosphorus (test code = Phosphorus) 4.8 2.5-4.5 [facility] LakewayTmafqkoPQFHAVJEQZ5383-93-02 16:12:00 Test Item Value Reference Range Interpretation Comments PT (test code = PT) 13.9 s 12.0-14.7 [place] [address]-03-13 16:12:00 Test Item Value Reference Range Interpretation Comments INR (test code = INR) 1.07 1 0.85-1.17 [place] [address]-03-13 16:12:00 Test Item Value Reference Range Interpretation Comments PTT (test code = PTT) 28.3 s 22.9-35.8 [place] [address]-03-13 16:12:00 Test Item Value Reference Range Interpretation Comments Fibrinogen Lvl (test code = Fibrinogen 436 230-510 Lvl) [facility]kgxwFCMINX9855-[facility] 16:12:00 Test Item Value Reference Range Interpretation Comments Trig (test code = Trig) 66 [facility] CampusBpzgxauMVNMXM5246-44-28 16:12:00 Test Item Value Reference Range Interpretation Comments Chol (test code = Chol) 134 [facility] CampusQarazihOCBYOR9805-37-81 16:12:00 Test Item Value Reference Range Interpretation Comments HDL (test code = HDL) 54 [facility] CampusUzftoyqNSDFZK2810-11-40 16:12:00 Test Item Value Reference Range Interpretation Comments CHD Risk (test code = CHD Risk) 2.48 1 3.90-5.80 [facility] CampusVsfmguaQRBFRG7112-05-22 16:12:00 Test Item Value Reference Range Interpretation Comments LDL (Calculated) (test code = LDL 67 (Calculated)) [facility] CampusDysejozNXLDIK5289-22-38 16:12:00 Test Item Value Reference Range Interpretation Comments VLDL (test code = VLDL) 13 1 [facility] CampusannPARATHYROID NVFJYMY1944-39-02 16:12:00 Test Item Value Reference Range Interpretation Comments Ca Ion WB (test code = Ca Ion WB) 1.18 1.05-1.25 [facility] CampusannPARATHYROID KDYZDEI2767-37-18 16:12:00 Test Item Value Reference Range Interpretation Comments Ca Norm WB (test code = Ca Norm WB) 1.22 1.05-1.25 [facility] CampusannCHEM EMJXG8794-11-44 16:12:00 Test Item Value Reference Range Interpretation Comments Magnesium Lvl (test code = Magnesium 1.9 1.8-2.4 Lvl) [facility]CHE[facility] JYKAC2675-85-93 16:12:00 Test Item Value Reference Range Interpretation Comments Phosphorus (test code = Phosphorus) 4.8 2.5-4.5 [facility] CampusKjpyvuxXHBNQERKQG9272-22-37 16:12:00 Test Item Value Reference Range Interpretation Comments PT (test code = PT) 13.9 s 12.0-14.7 [facility] CampusDhfyhzgMYAJHGUBCP6802-67-95 16:12:00 Test Item Value Reference Range Interpretation Comments INR (test code = INR) 1.07 1 0.85-1.17 [facility] HospitalNxzeoobJVTNXQKIQO7597-34-36 16:12:00 Test Item Value Reference Range Interpretation Comments PTT (test code = PTT) 28.3 s 22.9-35.8 [facility] HospitalZifjbxzDRKGKUQUHI2139-30-55 16:12:00 Test Item Value Reference Range Interpretation Comments Fibrinogen Lvl (test code = Fibrinogen 436 230-510 Lvl) [facility] HospitalTqxznriSTJKGO1484-19-49 16:12:00 Test Item Value Reference Range Interpretation Comments Trig (test code = Trig) 66 [facility] CampusRhnxlmtCJFKCS4191-71-71 16:12:00 Test Item Value Reference Range Interpretation Comments Chol (test code = Chol) 134 [facility] CampusJizxjvkNDIJAV7322-22-18 16:12:00 Test Item Value Reference Range Interpretation Comments HDL (test code = HDL) 54 [facility] CampusSbnwfzrVRUKMA9628-62-53 16:12:00 Test Item Value Reference Range Interpretation Comments CHD Risk (test code = CHD Risk) 2.48 1 3.90-5.80 [facility] CampusRtygzxyWVQMSJ1300-85-84 16:12:00 Test Item Value Reference Range Interpretation Comments LDL (Calculated) (test code = LDL 67 (Calculated)) [facility] HospitalIyjkyjxENQVRF2881-23-86 16:12:00 Test Item Value Reference Range Interpretation Comments VLDL (test code = VLDL) 13 1 [facility] CampusannPARATHYROID GHDWAVZ6722-70-53 16:12:00 Test Item Value Reference Range Interpretation Comments Ca Ion WB (test code = Ca Ion WB) 1.18 1.05-1.25 [facility] CampusannPARATHYROID OBGUSVZ9684-27-34 16:12:00 Test Item Value Reference Range Interpretation Comments Ca Norm WB (test code = Ca Norm WB) 1.22 1.05-1.25 [facility] HospitalCHEM [id number] 16:12:00 Test Item Value Reference Range Interpretation Comments Magnesium Lvl (test code = Magnesium 1.9 1.8-2.4 Lvl) [facility] HospitalCHEM KJUFR1425-04-46 16:12:00 Test Item Value Reference Range Interpretation Comments Phosphorus (test code = Phosphorus) 4.8 2.5-4.5 [facility] CampusXgefbnhTTMBTZKCCD1213-61-67 16:12:00 Test Item Value Reference Range Interpretation Comments PT (test code = PT) 13.9 s 12.0-14.7 [facility] CampusPfsejsyBLBFBORCUU7125-52-12 16:12:00 Test Item Value Reference Range Interpretation Comments INR (test code = INR) 1.07 1 0.85-1.17 [facility] HospitalSzfadkcTKRHMJYYHO3830-50-65 16:12:00 Test Item Value Reference Range Interpretation Comments PTT (test code = PTT) 28.3 s 22.9-35.8 [facility] CampusVdsldlbQMLNFRPBUH3248-45-41 16:12:00 Test Item Value Reference Range Interpretation Comments Fibrinogen Lvl (test code = Fibrinogen 436 230-510 Lvl) [facility] CampusKbcrifmCBIXYI0680-76-63 16:12:00 Test Item Value Reference Range Interpretation Comments Trig (test code = Trig) 66 [facility] CampusYqsiqisEKWONU8996-60-26 16:12:00 Test Item Value Reference Range Interpretation Comments Chol (test code = Chol) 134 [facility] CampusDephfvbDPSQGH8578-69-03 16:12:00 Test Item Value Reference Range Interpretation Comments HDL (test code = HDL) 54 [facility] CampusJiuvsnzJMGBLZ0936-11-67 16:12:00 Test Item Value Reference Range Interpretation Comments CHD Risk (test code = CHD Risk) 2.48 1 3.90-5.80 [facility] CampusQfqlxpwSWUJNX4342-40-23 16:12:00 Test Item Value Reference Range Interpretation Comments LDL (Calculated) (test code = LDL 67 (Calculated)) [facility] HospitalVgpfertYUXKEY8959-29-12 16:12:00 Test Item Value Reference Range Interpretation Comments VLDL (test code = VLDL) 13 1 [facility] CampusannPARATHYROID YCMASWA9527-52-04 16:12:00 Test Item Value Reference Range Interpretation Comments Ca Ion WB (test code = Ca Ion WB) 1.18 1.05-1.25 [facility] HospitalPARATHYROID BUCJWRW2259-73-40 16:12:00 Test Item Value Reference Range Interpretation Comments Ca Norm WB (test code = Ca Norm WB) 1.22 1.05-1.25 [facility] CampusannCHEM KRSQA9688-13-55 16:12:00 Test Item Value Reference Range Interpretation Comments Magnesium Lvl (test code = Magnesium 1.9 1.8-2.4 Lvl) [facility] CampusannCHEM [id number] 16:12:00 Test Item Value Reference Range Interpretation Comments Phosphorus (test code = Phosphorus) 4.8 2.5-4.5 [facility] CampusDdwxdqaJMCZPWJYEM9333-28-86 16:12:00 Test Item Value Reference Range Interpretation Comments PT (test code = PT) 13.9 s 12.0-14.7 [facility] CampusCcufzesDZHHNHYXFR4139-46-66 16:12:00 Test Item Value Reference Range Interpretation Comments INR (test code = INR) 1.07 1 0.85-1.17 [facility] HospitalRliamlsTIQACHZEWL1511-46-02 16:12:00 Test Item Value Reference Range Interpretation Comments PTT (test code = PTT) 28.3 s 22.9-35.8 [facility]FoidsifKJOQBUPTZG2209-57-99 16:12:00 Test Item Value Reference Range Interpretation Comments Fibrinogen Lvl (test code = Fibrinogen 436 230-510 Lvl) [facility]KpafiotZJAHSA8979-14-38 16:12:00 Test Item Value Reference Range Interpretation Comments Trig (test code = Trig) 66 [facility] HospitalDcriihpFOUFWH1948-05-74 16:12:00 Test Item Value Reference Range Interpretation Comments Chol (test code = Chol) 134 [facility] HospitalSnklmduLLJZZE7163-23-06 16:12:00 Test Item Value Reference Range Interpretation Comments HDL (test code = HDL) 54 [facility] HospitalBohcoudXYPGBT8940-11-28 16:12:00 Test Item Value Reference Range Interpretation Comments CHD Risk (test code = CHD Risk) 2.48 1 3.90-5.80 [facility] HospitalZdrdeqhTBMVVH8085-56-22 16:12:00 Test Item Value Reference Range Interpretation Comments LDL (Calculated) (test code = LDL 67 (Calculated)) [facility] HospitalMggwioaQDSPYV6044-29-69 16:12:00 Test Item Value Reference Range Interpretation Comments VLDL (test code = VLDL) 13 1 [facility] HospitalPARATHYROID UBXHKLN4127-96-79 16:12:00 Test Item Value Reference Range Interpretation Comments Ca Ion WB (test code = Ca Ion WB) 1.18 1.05-1.25 [facility] HospitalPARATHYROID DECAQEG2946-96-83 16:12:00 Test Item Value Reference Range Interpretation Comments Ca Norm WB (test code = Ca Norm WB) 1.22 1.05-1.25 [facility] CampusannCHEM RPPBC5641-23-67 16:12:00 Test Item Value Reference Range Interpretation Comments Magnesium Lvl (test code = Magnesium 1.9 1.8-2.4 Lvl) [facility] HospitalCHEM FZQIE6812-42-78 16:12:00 Test Item Value Reference Range Interpretation Comments Phosphorus (test code = Phosphorus) 4.8 2.5-4.5 [facility] CenterAvwxezdSWEFKKDGZD3823-49-00 16:12:00 Test Item Value Reference Range Interpretation Comments PT (test code = PT) 13.9 s 12.0-14.7 [facility] CenterIyoyqwoDTPILBJNWR2514-07-44 16:12:00 Test Item Value Reference Range Interpretation Comments INR (test code = INR) 1.07 1 0.85-1.17 [facility] CenterFhqobxzTUKTRPNWTY2772-22-59 16:12:00 Test Item Value Reference Range Interpretation Comments PTT (test code = PTT) 28.3 s 22.9-35.8 [facility] CenterFudfhplXTORLFHDRA4775-42-71 16:12:00 Test Item Value Reference Range Interpretation Comments Fibrinogen Lvl (test code = Fibrinogen 436 230-510 Lvl) [facility] HospitalQmepzsiZCPEYO0070-57-52 16:12:00 Test Item Value Reference Range Interpretation Comments Trig (test code = Trig) 66 [facility]DsbcimoMRDDSW7304-79-95 16:12:00 Test Item Value Reference Range Interpretation Comments Chol (test code = Chol) 134 [facility] HospitalXxzzhpxKDOPKH8590-74-72 16:12:00 Test Item Value Reference Range Interpretation Comments HDL (test code = HDL) 54 [facility] HospitalFuatztoFIURBJ3505-33-28 16:12:00 Test Item Value Reference Range Interpretation Comments CHD Risk (test code = CHD Risk) 2.48 1 3.90-5.80 [facility] HospitalUnoinaiUEONZW3126-19-54 16:12:00 Test Item Value Reference Range Interpretation Comments LDL (Calculated) (test code = LDL 67 (Calculated)) [facility] HospitalXfrddftNGUMTP1406-04-03 16:12:00 Test Item Value Reference Range Interpretation Comments VLDL (test code = VLDL) 13 1 [facility] CampusannPARATHYROID JWHVLZC4822-06-91 16:12:00 Test Item Value Reference Range Interpretation Comments Ca Ion WB (test code = Ca Ion WB) 1.18 1.05-1.25 [facility] CampusannPARATHYROID [id number] 16:12:00 Test Item Value Reference Range Interpretation Comments Ca Norm WB (test code = Ca Norm WB) 1.22 1.05-1.25 [facility]KajhkcxEXZEQYZMOAKA2691-48-37 12:16:00 Test Item Value Reference Range Interpretation Comments POC Sodium (test code = POC Sodium) 139 135-145 [facility] WorthGnrcjfnEXZEAHECJHMF7564-86-31 12:16:00 Test Item Value Reference Range Interpretation Comments POC Potassium (test code = POC 4.9 3.5-5.1 Potassium) [facility] HealthRypzdkfLJIACVCTLEZK7871-29-95 12:16:00 Test Item Value Reference Range Interpretation Comments POC Chloride (test code = POC Chloride) 102 95-109 [facility] HealthDqmgbmiTSKTXASUQYNW7711-31-39 12:16:00 Test Item Value Reference Range Interpretation Comments POC Carbon Dioxide (test code = POC 31 24-32 Carbon Dioxide) [facility] HealthLioprmdAYZKFJMOUNFX3786-47-84 12:16:00 Test Item Value Reference Range Interpretation Comments POC BUN (test code = POC BUN) 24 7-22 [facility] HealthVclarvcNKONDZLJZAEZ2112-54-11 12:16:00 Test Item Value Reference Range Interpretation Comments POC Creatinine (test code = POC 0.5 0.5-1.4 Creatinine) [facility] HealthMhuqkewZZZHVMFHGJFM1215-20-41 12:16:00 Test Item Value Reference Range Interpretation Comments POC Glucose (test code = POC Glucose) 79 70-99 [facility] HealthJnbzehqMDVQMWVZFKDS8340-92-46 12:16:00 Test Item Value Reference Range Interpretation Comments POC Ion Ca (test code = POC Ion Ca) 1.22 1.05-1.25 [facility] HealthBlnfdzlHXGLRHZOQXHL7998-00-29 12:16:00 Test Item Value Reference Range Interpretation Comments POC Hemoglobin (test code = POC 13.9 12.0-16.0 Hemoglobin) [facility] HealthKlgdumuCJWKTADSGLEP6584-25-25 12:16:00 Test Item Value Reference Range Interpretation Comments POC Hematocrit (test code = POC 41.0 36.0-48.0 Hematocrit) [facility] HealthXolgasoGTNCMUKPWDJX0335-31-69 12:16:00 Test Item Value Reference Range Interpretation Comments POC AGAP (test code = POC AGAP) 12.0 10.0-20.0 [facility] HealthOurdqmuECZYVBBYBJBA3916-10-49 12:16:00 Test Item Value Reference Range Interpretation Comments POC Disclaimer (test code See Note = POC Disclaimer) *NA*(11/18/19 7:16 AM) [facility]ZfedadkDIUPZMQDQOLP9670-27-97 12:16:00 Test Item Value Reference Range Interpretation Comments POC Sodium (test code = POC Sodium) 139 135-145 [facility] HealthKahnfpoNJBUZKZJJGYB9621-87-63 12:16:00 Test Item Value Reference Range Interpretation Comments POC Potassium (test code = POC 4.9 3.5-5.1 Potassium) [facility] HealthRcnlfdcJSVNFHIKYUMN6175-41-80 12:16:00 Test Item Value Reference Range Interpretation Comments POC Chloride (test code = POC Chloride) 102 95-109 [facility] HealthGshryozFWEEFEQIDJQK2547-07-07 12:16:00 Test Item Value Reference Range Interpretation Comments POC Carbon Dioxide (test code = POC 31 24-32 Carbon Dioxide) [facility] HealthMwrsbovYVCVKGGGWJCW9809-19-78 12:16:00 Test Item Value Reference Range Interpretation Comments POC BUN (test code = POC BUN) 24 7-22 [facility] HealthWhttmawEUELIUTBORDS3214-18-83 12:16:00 Test Item Value Reference Range Interpretation Comments POC Creatinine (test code = POC 0.5 0.5-1.4 Creatinine) [facility] HealthEwcpleoOUDDTPONPDID4494-87-37 12:16:00 Test Item Value Reference Range Interpretation Comments POC Glucose (test code = POC Glucose) 79 70-99 [facility] HealthCipobqrLQSWMWIIMTVB5505-46-69 12:16:00 Test Item Value Reference Range Interpretation Comments POC Ion Ca (test code = POC Ion Ca) 1.22 1.05-1.25 [facility] HealthNofkzooYNAWABBHBMUV6562-29-18 12:16:00 Test Item Value Reference Range Interpretation Comments POC Hemoglobin (test code = POC 13.9 12.0-16.0 Hemoglobin) [facility] HealthSpuaeimNEMNKVNYBCMS3151-16-15 12:16:00 Test Item Value Reference Range Interpretation Comments POC Hematocrit (test code = POC 41.0 36.0-48.0 Hematocrit) [facility] HealthCfvaatxTWSEVEITVLGZ0120-92-81 12:16:00 Test Item Value Reference Range Interpretation Comments POC AGAP (test code = POC AGAP) 12.0 10.0-20.0 [facility] HealthXgtohhcPASUMVPEYHHG0402-80-18 12:16:00 Test Item Value Reference Range Interpretation Comments POC Disclaimer (test code See Note = POC Disclaimer) *NA*(11/18/19 7:16 AM) [facility] HealthIbvbcnuIAHUDERXKGBF4529-89-34 12:16:00 Test Item Value Reference Range Interpretation Comments POC Sodium (test code = POC Sodium) 139 135-145 [facility] HealthUwqlhdwGBUZCUHNZNRB4107-05-30 12:16:00 Test Item Value Reference Range Interpretation Comments POC Potassium (test code = POC 4.9 3.5-5.1 Potassium) [facility] HealthMdubjyqKULLNEGPNYTX5045-61-62 12:16:00 Test Item Value Reference Range Interpretation Comments POC Chloride (test code = POC Chloride) 102 95-109 [facility] HealthOhwvpafQSAZCUOXYRHD9205-23-44 12:16:00 Test Item Value Reference Range Interpretation Comments POC Carbon Dioxide (test code = POC 31 24-32 Carbon Dioxide) [facility] HealthEvnqzytHWGUNXCCRDJV9851-46-73 12:16:00 Test Item Value Reference Range Interpretation Comments POC BUN (test code = POC BUN) 24 7-22 [facility] HealthFgwsygdXDAZHSLMMOIR9943-73-05 12:16:00 Test Item Value Reference Range Interpretation Comments POC Creatinine (test code = POC 0.5 0.5-1.4 Creatinine) [facility] HealthLtwzpuyUESSVTWIOHDG5535-44-09 12:16:00 Test Item Value Reference Range Interpretation Comments POC Glucose (test code = POC Glucose) 79 70-99 [facility] HealthEofcimuATGRCENOTTFR0148-62-65 12:16:00 Test Item Value Reference Range Interpretation Comments POC Ion Ca (test code = POC Ion Ca) 1.22 1.05-1.25 [facility] HealthJxoamarWAJYQRZJBTVT3290-56-78 12:16:00 Test Item Value Reference Range Interpretation Comments POC Hemoglobin (test code = POC 13.9 12.0-16.0 Hemoglobin) [facility] HealthAeueicgJJBOPKZIZNKL3720-75-99 12:16:00 Test Item Value Reference Range Interpretation Comments POC Hematocrit (test code = POC 41.0 36.0-48.0 Hematocrit) [facility] HealthOdetkwxZHZXDVNIRUZG2737-37-05 12:16:00 Test Item Value Reference Range Interpretation Comments POC AGAP (test code = POC AGAP) 12.0 10.0-20.0 [facility] HealthAedmphaYFPEUHCSVBII7352-18-38 12:16:00 Test Item Value Reference Range Interpretation Comments POC Disclaimer (test code See Note = POC Disclaimer) *NA*(11/18/19 7:16 AM) [facility] HealthDcetqlcGNZPWDTVPGMW1584-60-57 12:16:00 Test Item Value Reference Range Interpretation Comments POC Sodium (test code = POC Sodium) 139 135-145 [facility] HealthFxtusxkWWIYIASKLKRG2841-80-71 12:16:00 Test Item Value Reference Range Interpretation Comments POC Potassium (test code = POC 4.9 3.5-5.1 Potassium) [facility] HealthLodaoukRWVTNOTSIYHQ5596-60-56 12:16:00 Test Item Value Reference Range Interpretation Comments POC Chloride (test code = POC Chloride) 102 95-109 [facility] HealthXuhdqbeOVIMAUIOIAYL9754-78-61 12:16:00 Test Item Value Reference Range Interpretation Comments POC Carbon Dioxide (test code = POC 31 24-32 Carbon Dioxide) [facility] HealthSkectleVCAGTMXXPWJE4724-28-36 12:16:00 Test Item Value Reference Range Interpretation Comments POC BUN (test code = POC BUN) 24 7-22 [facility] HealthXlupobpXEMCGUPRBDCS1953-37-44 12:16:00 Test Item Value Reference Range Interpretation Comments POC Creatinine (test code = POC 0.5 0.5-1.4 Creatinine) [facility] HealthLchbzhgQQAGPGVSHIML7015-04-07 12:16:00 Test Item Value Reference Range Interpretation Comments POC Glucose (test code = POC Glucose) 79 70-99 [facility] HealthAsowxvgBTOXRWPGEDDN2324-43-73 12:16:00 Test Item Value Reference Range Interpretation Comments POC Ion Ca (test code = POC Ion Ca) 1.22 1.05-1.25 [facility] HealthLerwszzJIGVHKSEFEOM2462-88-53 12:16:00 Test Item Value Reference Range Interpretation Comments POC Hemoglobin (test code = POC 13.9 12.0-16.0 Hemoglobin) [facility] HealthDuqdsxdBBVYVSROZQLG5969-25-28 12:16:00 Test Item Value Reference Range Interpretation Comments POC Hematocrit (test code = POC 41.0 36.0-48.0 Hematocrit) [facility] HealthKoqxriaAGRGLJSTEXGJ7481-84-63 12:16:00 Test Item Value Reference Range Interpretation Comments POC AGAP (test code = POC AGAP) 12.0 10.0-20.0 [facility] HealthTkdmrpkPXGAHUQDXGDS9246-57-60 12:16:00 Test Item Value Reference Range Interpretation Comments POC Disclaimer (test code See Note = POC Disclaimer) *NA*(11/18/19 7:16 AM) [facility] HealthFytrbybBGKZWRCNGLFZ8884-41-19 12:16:00 Test Item Value Reference Range Interpretation Comments POC Sodium (test code = POC Sodium) 139 135-145 [facility] HealthQswtvowULGTUZEULBEB0952-43-38 12:16:00 Test Item Value Reference Range Interpretation Comments POC Potassium (test code = POC 4.9 3.5-5.1 Potassium) [facility] HealthIybcloxHYSZCPZVZVMJ5700-11-76 12:16:00 Test Item Value Reference Range Interpretation Comments POC Chloride (test code = POC Chloride) 102 95-109 [facility] HealthEmzfwyvERVWUSPLWUPO7121-54-33 12:16:00 Test Item Value Reference Range Interpretation Comments POC Carbon Dioxide (test code = POC 31 24-32 Carbon Dioxide) [facility] HealthCtkmyjhSDSGFAEXFDEA8723-81-51 12:16:00 Test Item Value Reference Range Interpretation Comments POC BUN (test code = POC BUN) 24 7-22 [facility] HealthFaozfwaZHGWQWWJNVXM3420-60-64 12:16:00 Test Item Value Reference Range Interpretation Comments POC Creatinine (test code = POC 0.5 0.5-1.4 Creatinine) [facility] HealthWpmnfnfIOVTLXMKDMXY1489-57-63 12:16:00 Test Item Value Reference Range Interpretation Comments POC Glucose (test code = POC Glucose) 79 70-99 [facility] HealthBzvytouRIOISGDHRZHJ8486-73-37 12:16:00 Test Item Value Reference Range Interpretation Comments POC Ion Ca (test code = POC Ion Ca) 1.22 1.05-1.25 [facility] HealthYxozifwEOWLKOFPHUYZ6476-07-62 12:16:00 Test Item Value Reference Range Interpretation Comments POC Hemoglobin (test code = POC 13.9 12.0-16.0 Hemoglobin) [facility] HealthTvoyfvkCOUMTLCYKVSJ0335-55-19 12:16:00 Test Item Value Reference Range Interpretation Comments POC Hematocrit (test code = POC 41.0 36.0-48.0 Hematocrit) [facility] HealthQrymmefAWLAZKPDMZSX7624-46-52 12:16:00 Test Item Value Reference Range Interpretation Comments POC AGAP (test code = POC AGAP) 12.0 10.0-20.0 [facility] Hospital[facility]nsnvhfNLZWNGVDEQAD5838-22-37 12:16:00 Test Item Value Reference Range Interpretation Comments POC Disclaimer (test code See Note = POC Disclaimer) *NA*(11/18/19 7:16 AM) [facility] [employer] [id number] 11:55:00 Test Item Value Reference Range Interpretation Comments ABO/Rh (test code = ABO/Rh) A POS [facility] [employer] [id number] 11:55:00 Test Item Value Reference Range Interpretation Comments Antibody Scrn (test Negative (11/18/19 6:55 code = Antibody Scrn) AM) [facility] [id number] 11:55:00 Test Item Value Reference Range Interpretation Comments ABO/Rh (test code = ABO/Rh) A POS [facility] [id number] 11:55:00 Test Item Value Reference Range Interpretation Comments Antibody Scrn (test Negative (11/18/19 6:55 code = Antibody Scrn) AM) [facility] [id number] 11:55:00 Test Item Value Reference Range Interpretation Comments ABO/Rh (test code = ABO/Rh) A [facility] [id number] 11:55:00 Test Item Value Reference Range Interpretation Comments Antibody Scrn (test Negative (11/18/19 6:55 code = Antibody Scrn) AM) [facility] [id number] 11:55:00 Test Item Value Reference Range Interpretation Comments ABO/Rh (test code = ABO/Rh) A POS [facility] [id number] 11:55:00 Test Item Value Reference Range Interpretation Comments Antibody Scrn (test Negative (11/18/19 6:55 code = Antibody Scrn) AM) [facility] [id number] 11:55:00 Test Item Value Reference Range Interpretation Comments ABO/Rh (test code = ABO/Rh) A [facility] [id number] 11:55:00 Test Item Value Reference Range Interpretation Comments Antibody Scrn (test Negative (11/18/19 6:55 code = Antibody Scrn) AM) [id number] 20:23:00 Test Item Value Reference Range Interpretation Comments MRSA by PCR (test Negative (11/14/19 3:23 code = MRSA by PCR) PM) [id number] 20:23:00 Test Item Value Reference Range Interpretation Comments MRSA by PCR (test Negative (11/14/19 3:23 code = MRSA by PCR) PM) [facility] [id number] 20:23:00 Test Item Value Reference Range Interpretation Comments MRSA by PCR (test Negative (11/14/19 3:23 code = MRSA by PCR) PM) [facility] [employer] - [id number] 20:23:00 Test Item Value Reference Range Interpretation Comments MRSA by PCR (test Negative (11/14/19 3:23 code = MRSA by PCR) PM) [facility] [employer] - [id number] 20:23:00 Test Item Value Reference Range Interpretation Comments MRSA by PCR (test Negative (11/14/19 3:23 code = MRSA by PCR) PM) [facility] [employer] [id number] 20:12:00 Test Item Value Reference Range Interpretation Comments ABO/Rh (test code = ABO/Rh) A POS [facility] [employer] [id number] 20:12:00 Test Item Value Reference Range Interpretation Comments Antibody Scrn (test Negative (11/14/19 3:12 code = Antibody Scrn) PM) [facility] [employer] [id number] 20:12:00 Test Item Value Reference Range Interpretation Comments Total Protein (test code = Total 7.5 6.4-8.4 Protein) [facility] [id number] 20:12:00 Test Item Value Reference Range Interpretation Comments Albumin Lvl (test code = Albumin Lvl) 3.5 3.5-5.0 [facility] [id number] 20:12:00 Test Item Value Reference Range Interpretation Comments ALT (test code = ALT) 19 See_Comment [Auto mated message] The system which ge nerated this result transmit roberto carlos reference range : <=65. The reference range was not used to interpr et this result as tyler l/abnormal. [employer] [id number] 20:12:00 Test Item Value Reference Range Interpretation Comments AST (test code = AST) 15 See_Comment [Auto mated message] The system which ge nerated this result transmit roberto carlos reference range : <=37. The reference range was not used to interpr et this result as tyler l/abnormal. [employer]2020-03-09 20:12:00 Test Item Value Reference Range Interpretation Comments Alk Phos (test code = Alk Phos) 74 39-136 [facility] [id number] 20:12:00 Test Item Value Reference Range Interpretation Comments Bili Total (test code = Bili Total) 0.2 0.2-1.3 [facility] [id number] 20:12:00 Test Item Value Reference Range Interpretation Comments B/C Ratio (test code = B/C Ratio) 17 1 6-25 [facility] [id number] 20:12:00 Test Item Value Reference Range Interpretation Comments Globulin (test code = Globulin) 4.0 2.7-4.2 [facility] A[facility] [id number] 20:12:00 Test Item Value Reference Range Interpretation Comments A/G Ratio (test code = A/G Ratio) 0.9 1 0.7-1.6 [facility] ModqzthNWDKMZNZJB4429-54-01 20:12:00 Test Item Value Reference Range Interpretation Comments PT (test code = PT) 12.6 s 12.0-14.7 [facility] FjvurvnANSXZMRUKJ0598-81-59 20:12:00 Test Item Value Reference Range Interpretation Comments INR (test code = INR) 0.94 1 0.85-1.17 [facility] [employer] [id number] 20:12:00 Test Item Value Reference Range Interpretation Comments ABO/Rh (test code = ABO/Rh) A POS [facility] [employer] [id number] 20:12:00 Test Item Value Reference Range Interpretation Comments Antibody Scrn (test Negative (11/14/19 3:12 code = Antibody Scrn) PM) [facility] [id number] 20:12:00 Test Item Value Reference Range Interpretation Comments Total Protein (test code = Total 7.5 6.4-8.4 Protein) [facility] [id number] 20:12:00 Test Item Value Reference Range Interpretation Comments Albumin Lvl (test code = Albumin Lvl) 3.5 3.5-5.0 [facility] [id number] 20:12:00 Test Item Value Reference Range Interpretation Comments ALT (test code = ALT) 19 See_Comment [Auto mated message] The system which ge nerated this result transmit roberto carlos reference range : <=65. The reference range was not used to interpr et this result as tyler l/abnormal. [employer]2020-03-09 20:12:00 Test Item Value Reference Range Interpretation Comments AST (test code = AST) 15 See_Comment [Auto mated message] The system which ge nerated this result transmit roberto carlos reference range : <=37. The reference range was not used to interpr et this result as tyler l/abnormal. [employer] [id number] 20:12:00 Test Item Value Reference Range Interpretation Comments Alk Phos (test code = Alk Phos) 74 39-136 [employer] [id number] 20:12:00 Test Item Value Reference Range Interpretation Comments Bili Total (test code = Bili Total) 0.2 0.2-1.3 [employer]2020-03-09 20:12:00 Test Item Value Reference Range Interpretation Comments B/C Ratio (test code = B/C Ratio) 17 1 6-25 [employer]2020-03-09 20:12:00 Test Item Value Reference Range Interpretation Comments Globulin (test code = Globulin) 4.0 2.7-4.2 [employer]2020-03-09 20:12:00 Test Item Value Reference Range Interpretation Comments A/G Ratio (test code = A/G Ratio) 0.9 1 0.7-1.6 [id number] 20:12:00 Test Item Value Reference Range Interpretation Comments PT (test code = PT) 12.6 s 12.0-14.7 [facility] W[id number] 20:12:00 Test Item Value Reference Range Interpretation Comments INR (test code = INR) 0.94 1 0.85-1.17 [employer] [id number] 20:12:00 Test Item Value Reference Range Interpretation Comments ABO/Rh (test code = ABO/Rh) A POS [employer] [id number] 20:12:00 Test Item Value Reference Range Interpretation Comments Antibody Scrn (test Negative (11/14/19 3:12 code = Antibody Scrn) PM) [employer]2020-03-09 20:12:00 Test Item Value Reference Range Interpretation Comments Total Protein (test code = Total 7.5 6.4-8.4 Protein) [employer]2020-03-09 20:12:00 Test Item Value Reference Range Interpretation Comments Albumin Lvl (test code = Albumin Lvl) 3.5 3.5-5.0 [facility] [id number] 20:12:00 Test Item Value Reference Range Interpretation Comments ALT (test code = ALT) 19 See_Comment [Auto mated message] The system which ge nerated this result transmit roberto carlos reference range : <=65. The reference range was not used to interpr et this result as tyler l/abnormal. [facility] [id number] 20:12:00 Test Item Value Reference Range Interpretation Comments AST (test code = AST) 15 See_Comment [Auto mated message] The system which ge nerated this result transmit roberto carlos reference range : <=37. The reference range was not used to interpr et this result as tyler l/abnormal. [facility] [id number] 20:12:00 Test Item Value Reference Range Interpretation Comments Alk Phos (test code = Alk Phos) 74 39-136 [facility] [id number] 20:12:00 Test Item Value Reference Range Interpretation Comments Bili Total (test code = Bili Total) 0.2 0.2-1.3 [facility] [id number] 20:12:00 Test Item Value Reference Range Interpretation Comments B/C Ratio (test code = B/C Ratio) 17 1 6-25 [facility] [id number] 20:12:00 Test Item Value Reference Range Interpretation Comments Globulin (test code = Globulin) 4.0 2.7-4.2 [facility] [id number] 20:12:00 Test Item Value Reference Range Interpretation Comments A/G Ratio (test code = A/G Ratio) 0.9 1 0.7-1.6 [facility] [id number] 20:12:00 Test Item Value Reference Range Interpretation Comments PT (test code = PT) 12.6 s 12.0-14.7 [facility] CampusCysbsljMIWJDRPWEH1121-97-66 20:12:00 Test Item Value Reference Range Interpretation Comments INR (test code = INR) 0.94 1 0.85-1.17 [facility] [employer] [id number] 20:12:00 Test Item Value Reference Range Interpretation Comments ABO/Rh (test code = ABO/Rh) A POS [facility] [employer] [id number] 20:12:00 Test Item Value Reference Range Interpretation Comments Antibody Scrn (test Negative (11/14/19 3:12 code = Antibody Scrn) PM) [facility] [id number] 20:12:00 Test Item Value Reference Range Interpretation Comments Total Protein (test code = Total 7.5 6.4-8.4 Protein) [facility] [id number] 20:12:00 Test Item Value Reference Range Interpretation Comments Albumin Lvl (test code = Albumin Lvl) 3.5 3.5-5.0 [facility] [id number] 20:12:00 Test Item Value Reference Range Interpretation Comments ALT (test code = ALT) 19 See_Comment [Auto mated message] The system which ge nerated this result transmit roberto carlos reference range : <=65. The reference range was not used to interpr et this result as tyler l/abnormal. [facility] [id number] 20:12:00 Test Item Value Reference Range Interpretation Comments AST (test code = AST) 15 See_Comment [Auto mated message] The system which ge nerated this result transmit roberto carlos reference range : <=37. The reference range was not used to interpr et this result as tyler l/abnormal. [facility] [id number] 20:12:00 Test Item Value Reference Range Interpretation Comments Alk Phos (test code = Alk Phos) 74 39-136 [facility] [id number] 20:12:00 Test Item Value Reference Range Interpretation Comments Bili Total (test code = Bili Total) 0.2 0.2-1.3 [facility] [id number] 20:12:00 Test Item Value Reference Range Interpretation Comments B/C Ratio (test code = B/C Ratio) 17 1 6-25 [facility] [id number] 20:12:00 Test Item Value Reference Range Interpretation Comments Globulin (test code = Globulin) 4.0 2.7-4.2 [facility] [id number] 20:12:00 Test Item Value Reference Range Interpretation Comments A/G Ratio (test code = A/G Ratio) 0.9 1 0.7-1.6 [facility] [id number] 20:12:00 Test Item Value Reference Range Interpretation Comments PT (test code = PT) 12.6 s 12.0-14.7 [facility] RtvkhlbLJNUWETXVG8273-04-00 20:12:00 Test Item Value Reference Range Interpretation Comments INR (test code = INR) 0.94 1 0.85-1.17 [facility] [employer] [id number] 20:12:00 Test Item Value Reference Range Interpretation Comments ABO/Rh (test code = ABO/Rh) A POS [facility] [employer] [id number] 20:12:00 Test Item Value Reference Range Interpretation Comments Antibody Scrn (test Negative (11/14/19 3:12 code = Antibody Scrn) PM) [facility] [id number] 20:12:00 Test Item Value Reference Range Interpretation Comments Total Protein (test code = Total 7.5 6.4-8.4 Protein) [facility] [employer]2020-03-09 20:12:00 Test Item Value Reference Range Interpretation Comments Albumin Lvl (test code = Albumin Lvl) 3.5 3.5-5.0 [facility] [employer]2020-03-09 20:12:00 Test Item Value Reference Range Interpretation Comments ALT (test code = ALT) 19 See_Comment [Auto mated message] The system which ge nerated this result transmit roberto carlos reference range : <=65. The reference range was not used to interpr et this result as tyler l/abnormal. [employer]2020-03-09 20:12:00 Test Item Value Reference Range Interpretation Comments AST (test code = AST) 15 See_Comment [Auto mated message] The system which ge nerated this result transmit roberto carlos reference range : <=37. The reference range was not used to interpr et this result as tyler l/abnormal. [employer]2020-03-09 20:12:00 Test Item Value Reference Range Interpretation Comments Alk Phos (test code = Alk Phos) 74 39-136 [facility] [employer]2020-03-09 20:12:00 Test Item Value Reference Range Interpretation Comments Bili Total (test code = Bili Total) 0.2 0.2-1.3 [facility] [employer]2020-03-09 20:12:00 Test Item Value Reference Range Interpretation Comments B/C Ratio (test code = B/C Ratio) 17 1 6-25 [facility] [id number] 20:12:00 Test Item Value Reference Range Interpretation Comments Globulin (test code = Globulin) 4.0 2.7-4.2 [facility] [id number] 20:12:00 Test Item Value Reference Range Interpretation Comments A/G Ratio (test code = A/G Ratio) 0.9 1 0.7-1.6 [id number] 20:12:00 Test Item Value Reference Range Interpretation Comments PT (test code = PT) 12.6 s 12.0-14.7 [facility] [id number] 20:12:00 Test Item Value Reference Range Interpretation Comments INR (test code = INR) 0.94 1 0.85-1.17 [facility]
[2022-10-29] MEDS ORDERED: NA CHLORIDE 0.9% 1,000 ML ONE (13:27)
[2022-10-29] MEDS ORDERED: MORPHINE 4 MG/ML SYR ONE ×2 (13:27→15:36)
[2022-10-29] MEDS ORDERED: ONDANSETRON 4 MG/2 ML VIAL ONE ×2 (13:27→15:46)
--- NOTE | 2022-10-29 13:49 | RAD REPORT ---
EXAM DESCRIPTION: Tut Single View10/29/2022 1:19 pm CLINICAL HISTORY: ABDOMINAL DISTENTION COMPARISON: Chest Single View dated 09/02/2022; Chest Single View dated 10/22/2021; Chest Pa And Lat (2 Views) dated 11/08/2019; Chest Single View dated 11/01/2019 TECHNIQUE: Portable AP view of the chest. FINDINGS: The lungs are clear.Stable perihilar/ infrahilar mild streaky opacities, which could refle ct atelectasis or mild interstitial prominence. No pneumothorax or effusion. The cardiomediastinal co ntours are unremarkable. IMPRESSION: No acute consolidation. Mild central atelectasis or interstitial prominence, stable.
[2022-10-29 13:51] LABS: Urine Blood Negative (Negative); Urine Glucose Negative (Negative); Urine Protein Negative (Negative); Urine Specific Gravity 1.025 (1.005-1.030); Urine pH 5.5 (5.0-7.0)
[2022-10-29 14:06] LABS: Absolute Lymphocytes (CBC) 2.1 K/uL (0.7-4.9); Lymphocytes % 20.4 % (15.3-44.8); MCV 90.6 fL (80-100); RBC Red Blood Cell Count 4.41 M/uL (3.86-4.86)
[2022-10-29 14:08] LABS: Protime INR 1.09
[2022-10-29 14:32] LABS: SARS-CoV-2 Antigen Rapid Res Negative (Negative)
[2022-10-29 15:11] LABS: Albumin 3.4 g/dL (3.4-5.0); Bilirubin Direct 0.1 mg/dL (0-0.2); Bilirubin Total 0.3 mg/dL (0.2-1.0); Magnesium 1.5 mg/dL (1.6-2.4); Potassium 3.7 mmol/L (3.5-5.1); Troponin High Sensitivity 3.8 pg/mL (<58.9)
[2022-10-29] MEDS ORDERED: Magnesium Sulfate 2gm IVPB 2 G/50 ML BAG IV ONE (15:36)
[2022-10-29] MEDS ORDERED: FENTANYL CITR 100 MCG/2 ML ONE (15:46)
--- NOTE | 2022-10-29 17:14 | RAD REPORT ---
EXAM DESCRIPTION: CT - Abdomen Pelvis W Contrast - 10/29/2022 4:27 pm CLINICAL HISTORY: Abdominal pain COMPARISON: 05/14/2020 TECHNIQUE: Biphasic, helical CT imaging of the abdomen and pelvis was performed following intravenou s administration of 95 mL Isovue-300. Multiplanar reformats were generated and reviewed. All CT scans are performed using dose optimization technique as appropriate and may include automated exposure control or mA/KV adjustment according to patient size. FINDINGS: Bibasilar central predominant reticular and ground-glass opacities, stable. The liver, spleen, and pancreas show no suspicious findings. Patient status post cholecystectomy. No significant intra or extrahepatic biliary ductal dilation. Left superior pole anterior cortical ovoid 1.6 centimeter hypoenhancing focus is slightly increased i n size since the prior exam, and is possibly new since an abdominal CT of 06/02/2019. No hydronephros is or radiopaque calculi bilaterally. No dilated bowel loops or bowel wall thickening. No free air, free fluid or inflammatory stranding. N o hernia, mass or bulky lymphadenopathy. The urinary bladder is without significant finding. Status post hysterectomy. No suspicious bony findings. Postsurgical changes of anterior and posterior fusion at L5-S1 are again noted. IMPRESSION: No acute abnormalities in the abdomen and pelvis. Progressive small left superior pole renal cortical solid 1.6 centimeter region, appears be new since 2019, and is concerning for a small renal cell carcinoma. The findings were communicated to Efren Puente on 10/29/2022 at 17:09 hours.
--- NOTE | 2022-10-29 18:09 | EDPHYS ---
Physician Documentation [facility] Name: Charlotte Ruvalcaba Age: 57 yrs Sex: Female : 1965 Arrival Date: 10/29/2022 Time: 12:46 Bed External Waiting Private MD: LUCINDA Physician Efren Puente HPI: 10/29 18:01 This 57 yrs old Black Female presents to ER via EMS with complaints of left upper edilson quadrant pain. 18:01 The patient presents with abdominal pain in the epigastric area, in the left upper edilson quadrant, abdominal distention in the upper abdomen, in the lower abdomen. Onset: The symptoms/episode began/occurred 2 day(s) ago. The symptoms radiate to diaphragm, left breast and abdomen. Associated signs and symptoms: Pertinent positives: nausea and vomiting. The symptoms are described as dull. Modifying factors: The symptoms are alleviated by nothing, the symptoms are aggravated by nothing. Severity of pain: At its worst the pain was mild in the emergency department the pain is unchanged. The patient has experienced similar episodes in the past, a few times. Historical: - Allergies: 12:52 NKDA; ph - Home Meds: 12:52 Januvia 50 mg Oral tab 1 tab once daily [Active]; albuterol sulfate 90 mcg/actuation ph Inhl HFAA 2 puffs twice daily as needed [Active]; amlodipine 5 mg tab 1 tab once daily [Active]; gabapentin 600 mg Oral tab 1 tab 3 times per day [Active]; levothyroxine 50 mcg cap 1 cap once daily [Active]; losartan-hydrochlorothiazide 100-25 mg Oral tab 1 tab once daily [Active]; metformin 500 mg Oral tab 1 tab [Active]; omeprazole 40 mg Oral cpDR 1 cap once daily [Active]; sertraline 50 mg Oral tab 1 tab once daily [Active]; simvastatin 10 mg Oral tab 1 tab once daily [Active]; trazodone 50 mg Oral tab 1 tab once daily [Active]; Trulance 3 mg Oral tab 1 tab [Active]; - PMHx: 12:52 Asthma; CAD; COPD; Diabetes - IDDM; Gout; Hypertension; Hypothyroidism; ph - PSHx: 12:52 back sx; Coronary Stent; hysterectomy; knee replacement; ph - Immunization history:: Adult Immunizations unknown. - Social history:: Smoking status: Patient denies any tobacco usage or history of. - Family history:: not pertinent. ROS: 18:01 Constitutional: Negative for fever, chills, and weight loss, Eyes: Negative for injury, edilson pain, redness, and discharge, ENT: Negative for injury, pain, and discharge, Neck: Negative for injury, pain, and swelling, Cardiovascular: Negative for chest pain, palpitations, and edema, Respiratory: Negative for shortness of breath, cough, wheezing, and pleuritic chest pain, Back: Negative for injury and pain, : Negative for injury, bleeding, discharge, and swelling, MS/Extremity: Negative for injury and deformity, Skin: Negative for injury, rash, and discoloration, Neuro: Negative for headache, weakness, numbness, tingling, and seizure, Psych: Negative for depression, anxiety, suicide ideation, homicidal ideation, and hallucinations, Allergy/Immunology: Negative for hives, rash, and allergies, Endocrine: Negative for neck swelling, polydipsia, polyuria, polyphagia, and marked weight changes, Hematologic/Lymphatic: Negative for swollen nodes, abnormal bleeding, and unusual bruising. 18:01 Abdomen/GI: Positive for abdominal pain, nausea and vomiting, of the left upper quadrant. Exam: 18:01 Constitutional: This is a well developed, well nourished patient who is awake, alert, edilson and in no acute distress. Head/Face: Normocephalic, atraumatic. Eyes: Pupils equal round and reactive to light, extra-ocular motions intact. Lids and lashes normal. Conjunctiva and sclera are non-icteric and not injected. Cornea within normal limits. Periorbital areas with no swelling, redness, or edema. ENT: Nares patent. No nasal discharge, no septal abnormalities noted. Tympanic membranes are normal and external auditory canals are clear. Oropharynx with no redness, swelling, or masses, exudates, or evidence of obstruction, uvula midline. Mucous membranes moist. Neck: Trachea midline, no thyromegaly or masses palpated, and no cervical lymphadenopathy. Supple, full range of motion without nuchal rigidity, or vertebral point tenderness. No Meningismus. Chest/axilla: Normal chest wall appearance and motion. Nontender with no deformity. No lesions are appreciated. Cardiovascular: Regular rate and rhythm with a normal S1 and S2. No gallops, murmurs, or rubs. Normal PMI, no JVD. No pulse deficits. Respiratory: Lungs have equal breath sounds bilaterally, clear to auscultation and percussion. No rales, rhonchi or wheezes noted. No increased work of breathing, no retractions or nasal flaring. Back: No spinal tenderness. No costovertebral tenderness. Full range of motion. Skin: Warm, dry with normal turgor. Normal color with no rashes, no lesions, and no evidence of cellulitis. MS/ Extremity: Pulses equal, no cyanosis. Neurovascular intact. Full, normal range of motion. Neuro: Awake and alert, GCS 15, oriented to person, place, time, and situation. Cranial nerves II-XII grossly intact. Motor strength 5/5 in all extremities. Sensory grossly intact. Cerebellar exam normal. Normal gait. Psych: Awake, alert, with orientation to person, place and time. Behavior, mood, and affect are within normal limits. 18:01 ECG was reviewed by the Attending Physician. Vital Signs: 12:48 BP 146 / 69; Pulse 84; Resp 18; Temp 98.0; Pulse Ox 95% on R/A; Weight 81.65 kg; Height ph 5 ft. 4 in. (162.56 cm); 13:45 BP 128 / 45; Pulse 75; Resp 14; Temp 98.2; Pulse Ox 96% on R/A; Pain 8/10; sg5 14:40 BP 124 / 58; Pulse 73; Resp 14; Pulse Ox 93% on R/A; Pain 5/10; sg5 15:31 BP 94 / 55; Pulse 76; Resp 16; Pulse Ox 93% on R/A; Pain 9/10; sg5 15:48 BP 119 / 51; Pulse 77; Resp 16; Pulse Ox 92% on R/A; Pain 7/10; sg5 16:48 BP 121 / 51; Pulse 78; Resp 16; Pulse Ox 95% ; Pain 4/10; sg5 18:00 BP 119 / 56; Pulse 79; Resp 16; Temp 98.0; Pulse Ox 99% on R/A; ph 12:48 Body Mass Index 30.90 (81.65 kg, 162.56 cm) ph MDM: 12:52 Patient medically screened. edilson 18:03 Differential diagnosis: bowel obstruction, coronary artery disease, Cholelithiasis, edilson gastritis, Irritable bowel syndrome, Mesenteric ischemia or infarction, non-specific abd pain, pancreatitis, Peptic Ulcer Disease, Pyelonephritis, urinary tract infection. Data reviewed: vital signs, nurses notes, lab test result(s), EKG, radiologic studies, CT scan. Consideration of Admission/Observation Escalation of care including admission/observation considered. I considered the following discharge prescriptions or medication management in the emergency department Medications were administered in the Emergency Department. See MAR. Discussion of test interpretation with radiology: I had a discussion with radiology regarding a test interpretation. 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 Test considered but Not performed: MRI: NO ABD MRI. Care significantly affected by the following chronic conditions: Diabetes, Hypertension, ASTHMA. 10/29 12:55 Order name: Basic Metabolic Panel [facility] 10/29 12:55 Order name: CBC with Diff [facility] 10/29 12:55 Order name: LFT's [facility] 10/29 12:55 Order name: Magnesium [facility] 10/29 12:55 Order name: NT PRO-BNP [facility] 10/29 12:55 Order name: PT-INR [facility] 10/29 12:55 Order name: Troponin HS [facility] 10/29 12:55 Order name: Lipase [facility] 10/29 12:55 Order name: Urine Culture [facility] 10/29 12:55 Order name: SARS RAPID [facility] 10/29 13:51 Order name: Urine Dipstick-Ancillary; Complete Time: 14:04 [facility] 10/29 14:08 Order name: Protime (+INR); Complete Time: 14:37 [facility] 10/29 14:08 Order name: CBC with Automated Diff; Complete Time: 14:37 [facility] 10/29 14:32 Order name: SARS-COV-2 Antigen Rapid; Complete Time: 14:37 [facility] 10/29 12:55 Order name: XRAY Chest (1 view) [facility] 10/29 12:55 Order name: CT Abd/Pelvis - IV Contrast Only [facility] 10/29 13:50 Order name: RAD; Complete Time: 14:04 [facility] 10/29 15:11 Order name: Basic Metabolic Panel; Complete Time: 15:14 [facility] 10/29 15:12 Order name: Liver (Hepatic) Function; Complete Time: 15:14 [facility] 10/29 15:12 Order name: Troponin High Sensitivity; Complete Time: 15:14 [facility] 10/29 15:12 Order name: NT PRO-BNP; Complete Time: 15:14 [facility] 10/29 15:12 Order name: Magnesium; Complete Time: 15:14 [facility] 10/29 15:12 Order name: Lipase; Complete Time: 15:14 [facility] 10/29 17:15 Order name: CT; Complete Time: 17:56 [facility] 10/29 12:55 Order name: EKG; Complete Time: 12:56 [facility] 10/29 12:55 Order name: Cardiac monitoring; Complete Time: 13:16 [facility] 10/29 12:55 Order name: EKG - Nurse/Tech; Complete Time: 15:06 [facility] 10/29 12:55 Order name: IV Saline Lock; Complete Time: 14:04 [facility] 10/29 12:55 Order name: Labs collected and sent; Complete Time: 14:04 [facility] 10/29 12:55 Order name: O2 Per Protocol; Complete Time: 13:16 [facility] 10/29 12:55 Order name: O2 Sat Monitoring; Complete Time: 13:16 [facility] 10/29 12:55 Order name: Urine Dipstick-Ancillary (obtain specimen); Complete Time: 14:17 edilson EC:01 Rate is 73 beats/min. Rhythm is regular. QRS Amanda is Normal. PA interval is normal. QRS edilson interval is normal. QT interval is normal. No Q waves. T waves are Normal. No ST changes noted. Clinical impression: NSR w/ Non-specific ST/T Changes and No evidence of ischemia. Interpreted by me. Reviewed by me. Administered Medications: 13:45 Drug: NS 0.9% 1000 ml Route: IV; Rate: 125 ml/hr; Site: left antecubital; sg5 13:45 Drug: morphine 4 mg Route: IVP; Infused Over: 4 mins; Site: left antecubital; sg5 13:45 Drug: Zofran (Ondansetron) 4 mg Route: IVP; Site: left antecubital; sg5 15:39 Drug: Magnesium Sulfate 2 grams Route: IVPB; Infused Over: 2 hrs; Site: left sg5 antecubital; 17:05 Follow up: Response: No adverse reaction; IV Status: Completed infusion ph 18:33 Follow up: Response: No adverse reaction sg5 15:49 Drug: fentaNYL (PF) 50 mcg Route: IVP; Site: left antecubital; ph 17:05 Follow up: Response: No adverse reaction ph 15:49 Drug: NS 0.9% 1000 ml Route: IV; Rate: 1 bolus; Site: left antecubital; ph 16:54 Follow up: Response: No adverse reaction; IV Intake: 1000ml sg5 17:05 Follow up: Response: No adverse reaction; IV Status: Completed infusion; IV Intake: ph 1000ml 18:33 Follow up: Response: No adverse reaction; IV Intake: 1000ml sg5 18:00 Not Given (Other Intervention Used): Zofran (Ondansetron) 4 mg IVP once; over 2 minutes ph Disposition Summary: 10/29/22 18:08 Discharge Ordered Location: Home edilson Problem: new edilson Symptoms: have improved edilson Condition: Stable edilson Diagnosis - Epigastric abdominal tenderness edilson - Vomiting edilson - 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 , 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 edilson - Hypomagnesemia edilson Followup: edilson - With: Private Physician - When: 2 - 3 days - Reason: Recheck today's complaints, Continuance of care, Re-evaluation by your physician Followup: edilson - With: Yuniel Ballesteros MD - When: 2 - 3 days - Reason: Recheck today's complaints, Re-evaluation by your physician Followup: edilson - With: Gilmer Patrick MD - When: 2 - 3 days - Reason: Recheck today's complaints, Re-evaluation by your physician Discharge Instructions: - Discharge Summary Sheet edilson - Abdominal Pain, Adult edilson - Renal Mass edilson - Vomiting, Adult edilson Forms: - Medication Reconciliation Form edilson - Thank You Letter edilson - Antibiotic Education edilson - Prescription Opioid Use [facility] Prescriptions: - Pepcid 20 mg Oral Tablet - take 1 tablet by ORAL route every 12 hours for 10 days; 20 tablet; Refills: 0, [facility] Product Selection Permitted - Zofran 4 mg Oral Tablet - take 1 tablet by ORAL route every 12 hours As needed; 20 tablet; Refills: 0, [facility] Product Selection Permitted - dicyclomine 20 mg Oral Tablet - take 1 tablet by ORAL route 4 times per day; 28 tablet; Refills: 0, Product [facility] Selection Permitted Signatures: Dispatcher [employer] Efren Carpio MD MD cha Hall, Patricia RN RN Corina Burnett RN RN sg5
--- NOTE | 2022-10-29 18:09 | ER ---
Nurse's Notes [facility] Name: Charlotte Ruvalcaba Age: 57 yrs Sex: Female : 1965 Arrival Date: 10/29/2022 Time: 12:46 Bed External Waiting Private MD: Diagnosis: Epigastric abdominal tenderness;Vomiting;Neoplasm of unspecified behavior of left kidney-1.6 CM SOLID , SUSPECT RCC;Hypomagnesemia Presentation: 10/29 12:48 Chief complaint: EMS states: Pt c/o upper abdominal pain radiating to chest, PCP thinks ph she may have a hernia, also received a message from PCP that said some of her blood work was abnormal, pt reports inability to eat or drink and recent weight loss. Coronavirus screen: Vaccine status: Patient reports receiving the 2nd dose of the covid vaccine. Ebola Screen: No symptoms or risks identified at this time. Initial Sepsis Screen: Does the patient meet any 2 criteria? No. Patient's initial sepsis screen is negative. Does the patient have a suspected source of infection? No. Patient's initial sepsis screen is negative. Risk Assessment: Do you want to hurt yourself or someone else? Patient reports no desire to harm self or others. Onset of symptoms was October 29, 2022. 12:48 Method Of Arrival: EMS: [facility] 12:48 Acuity: RASHAD 3 ph Triage Assessment: 12:53 General: Appears in no apparent distress. uncomfortable, well groomed, Behavior is ph cooperative, appropriate for age, crying. Pain: Complains of pain in epigastric area, right upper quadrant and left upper quadrant Pain radiates to chest. Neuro: Level of Consciousness is awake, alert, obeys commands, Oriented to person, place, time, situation. Cardiovascular: Reports chest pain, Capillary refill < 3 seconds in bilateral fingers Patient's skin is warm and dry. Respiratory: Airway is patent Respiratory effort is even, unlabored. GI: Reports upper abdominal pain. Derm: Skin is healthy with good turgor, Skin is pink, warm \T\ dry. Historical: - Allergies: 12:52 NKDA; ph - Home Meds: 12:52 Januvia 50 mg Oral tab 1 tab once daily [Active]; albuterol sulfate 90 mcg/actuation ph Inhl HFAA 2 puffs twice daily as needed [Active]; amlodipine 5 mg tab 1 tab once daily [Active]; gabapentin 600 mg Oral tab 1 tab 3 times per day [Active]; levothyroxine 50 mcg cap 1 cap once daily [Active]; losartan-hydrochlorothiazide 100-25 mg Oral tab 1 tab once daily [Active]; metformin 500 mg Oral tab 1 tab [Active]; omeprazole 40 mg Oral cpDR 1 cap once daily [Active]; sertraline 50 mg Oral tab 1 tab once daily [Active]; simvastatin 10 mg Oral tab 1 tab once daily [Active]; trazodone 50 mg Oral tab 1 tab once daily [Active]; Trulance 3 mg Oral tab 1 tab [Active]; - PMHx: 12:52 Asthma; CAD; COPD; Diabetes - IDDM; Gout; Hypertension; Hypothyroidism; ph - PSHx: 12:52 back sx; Coronary Stent; hysterectomy; knee replacement; ph - Immunization history:: Adult Immunizations unknown. - Social history:: Smoking status: Patient denies any tobacco usage or history of. - Family history:: not pertinent. Screenin:54 [facility] ED Fall Risk Assessment (Adult) History of falling in the last 3 months, ph including since admission No falls in past 3 months (0 pts) Confusion or Disorientation No (0 pts) Intoxicated or Sedated No (0 pts) Impaired Gait No (0 pts) Mobility Assist Device Used No (0 pt) Altered Elimination No (0 pt) Score/Fall Risk Level 0 - 2 = Low Risk Oriented to surroundings, Maintained a safe environment, Hourly rounding (assess needs \T\ fall precautionary measures) done. Abuse screen: Denies threats or abuse. Denies injuries from another. Nutritional screening: No deficits noted. Tuberculosis screening: No symptoms or risk factors identified. Assessment: 13:46 General: Appears uncomfortable, Behavior is calm, cooperative, appropriate for age. sg5 Pain: Complains of pain in upper abdomen and chest Pain currently is 8 out of 10 on a pain scale. Neuro: No deficits noted. Level of Consciousness is awake, alert, obeys commands, Oriented to person, place, time, situation, Appropriate for age. Cardiovascular: Reports chest pain, Heart tones S1 S2 present Capillary refill < 3 seconds Rhythm is regular. Respiratory: No deficits noted. Airway is patent. GI: Abdomen is round Bowel sounds present X 4 quads. Reports upper abdominal pain. : No deficits noted. No signs and/or symptoms were reported regarding the genitourinary system. EENT: No deficits noted. No signs and/or symptoms were reported regarding the EENT system. Derm: No deficits noted. No signs and/or symptoms reported regarding the dermatologic system. Musculoskeletal: No deficits noted. No signs and/or symptoms reported regarding the musculoskeletal system. 16:36 Reassessment: Patient appears in no apparent distress at this time. Patient and/or ph family updated on plan of care and expected duration. Pain level reassessed. Patient is alert, oriented x 3, equal unlabored respirations, skin warm/dry/pink. 18:06 Reassessment: Patient and/or family updated on plan of care and expected duration. Pain sg5 level reassessed. Patient is alert, oriented x 3, equal unlabored respirations, skin warm/dry/pink. Vital Signs: 12:48 BP 146 / 69; Pulse 84; Resp 18; Temp 98.0; Pulse Ox 95% on R/A; Weight 81.65 kg; Height ph 5 ft. 4 in. (162.56 cm); 13:45 BP 128 / 45; Pulse 75; Resp 14; Temp 98.2; Pulse Ox 96% on R/A; Pain 8/10; sg5 14:40 BP 124 / 58; Pulse 73; Resp 14; Pulse Ox 93% on R/A; Pain 5/10; sg5 15:31 BP 94 / 55; Pulse 76; Resp 16; Pulse Ox 93% on R/A; Pain 9/10; sg5 15:48 BP 119 / 51; Pulse 77; Resp 16; Pulse Ox 92% on R/A; Pain 7/10; sg5 16:48 BP 121 / 51; Pulse 78; Resp 16; Pulse Ox 95% ; Pain 4/10; sg5 18:00 BP 119 / 56; Pulse 79; Resp 16; Temp 98.0; Pulse Ox 99% on R/A; ph 12:48 Body Mass Index 30.90 (81.65 kg, 162.56 cm) ph ED Course: 12:46 Patient arrived in ED. as 12:47 Rebecca Gleason RN is Primary Nurse. ph 12:52 Triage completed. ph 12:52 Efren Puente MD is Attending Physician. edilson 12:52 Arm band placed on Patient placed in an exam room, on a stretcher, on cardiac care nurse, ph on pulse oximetry. 12:54 Patient has correct armband on for positive identification. Bed in low position. Call ph light in reach. Side rails up X 1. 13:45 Inserted saline lock: 20 gauge in left antecubital area, using aseptic technique. Blood sg5 collected. 18:01 No provider procedures requiring assistance completed. ph 18:06 Yuniel Ballesteros MD is Referral Physician. edilson 18:09 Gilmer Patrick MD is Referral Physician. edilson 18:34 IV discontinued. sg5 Administered Medications: 13:45 Drug: NS 0.9% 1000 ml Route: IV; Rate: 125 ml/hr; Site: left antecubital; sg5 13:45 Drug: morphine 4 mg Route: IVP; Infused Over: 4 mins; Site: left antecubital; sg5 13:45 Drug: Zofran (Ondansetron) 4 mg Route: IVP; Site: left antecubital; sg5 15:39 Drug: Magnesium Sulfate 2 grams Route: IVPB; Infused Over: 2 hrs; Site: left sg5 antecubital; 17:05 Follow up: Response: No adverse reaction; IV Status: Completed infusion ph 18:33 Follow up: Response: No adverse reaction sg5 15:49 Drug: fentaNYL (PF) 50 mcg Route: IVP; Site: left antecubital; ph 17:05 Follow up: Response: No adverse reaction ph 15:49 Drug: NS 0.9% 1000 ml Route: IV; Rate: 1 bolus; Site: left antecubital; ph 16:54 Follow up: Response: No adverse reaction; IV Intake: 1000ml sg5 17:05 Follow up: Response: No adverse reaction; IV Status: Completed infusion; IV Intake: ph 1000ml 18:33 Follow up: Response: No adverse reaction; IV Intake: 1000ml sg5 18:00 Not Given (Other Intervention Used): Zofran (Ondansetron) 4 mg IVP once; over 2 minutes ph Medication: 12:54 VIS not applicable for this client. ph Intake: 16:54 IV: 1000ml; Total: 1000ml. sg5 17:05 IV: 1000ml; Total: 2000ml. ph 18:33 IV: 1000ml; Total: 3000ml. sg5 Outcome: 18:08 Discharge ordered by . edilson 18:34 Discharged to home sg5 18:34 Condition: good 18:34 Discharge instructions given to patient, Instructed on discharge instructions, follow up and referral plans. contact nephrology in the next as soon as possible 18:35 Patient left the ED. sg5 22:41 Patient left the ED. kl Signatures: Sarah Flores RN RN kl Anderson, Corey, MD MD cha Martinez, Amelia as Hall, Patricia, RN RN Corina Burnett RN RN [facility]
[2022-10-29 19:18] VITALS: BP 119/56; TEMP 98; O2SAT 99
--- NOTE | 2022-10-30 16:31 | EKG ---
Test Date: 2022-10-29 Test Time: 15:02:37 Physiological Chemist: SOWMYA MEASUREMENT RESULTS: Intervals: Rate: 73 WI: 130 QRSD: 76 QT: 416 QTc: 458 [place]: P: 82 WI: 130 QRS: 46 T: 79 INTERPRETIVE STATEMENTS: Normal sinus rhythm Low voltage QRS Possible Lateral infarct, age undetermined Abnormal ECG Compared to ECG 09/02/2022 16:36:17 Low QRS voltage now present Myocardial infarct finding still present Electronically Signed On 10-30-22 16:29:23 DUNGEON MASTER by Arron Baker
== END 2022-10-29 22:41 | disposition home or self-care (01) ==
LOC: ER 12:41
DX: C64.2 Malignant neoplasm of left kidney, except renal pelvis (principal); E83.42 Hypomagnesemia; R11.10 Vomiting, unspecified; E11.9 Type 2 diabetes mellitus without complications; I10 Essential (primary) hypertension; Z20.822 Contact with and (suspected) exposure to COVID-19; Z95.818 Presence of other cardiac implants and grafts
CPT/HCPCS: 87088; 85025; 87086; 80048; 36415; 83735; 85610; 80076; 81003; 84484; 83690; 83880; 74177; 71045; 87811; Q9967; J3010; J3475; J7030; J2405; 93005; 96365; 96375; 99284

== ENCOUNTER 2023-09-17 08:29 | Day surgery (SDC) | payer OTHER ==
[2023-09-17 08:46] LABS: Specific Gravity 1.015 (1.005-1.030); Urine Bacteria None Seen /HPF (<20); Urine Bilirubin NEGATIVE (Negative); Urine Blood Negative (Negative); Urine Clarity Turbid (Clear); Urine Color Light-Yellow (Yellow); Urine Glucose NEGATIVE (Negative); Urine Mucus 2+ /HPF (None Seen); Urine Protein NEGATIVE (Negative); Urine RBC <5 /HPF (None Seen); Urine Urobilinogen Normal (Normal)
[2023-09-17] MEDS ORDERED: NA CHLORIDE 0.9% 1,000 ML ONE (08:59)
[2023-09-17] MEDS ORDERED: CEFAZOLIN SODIUM 2 GM/VIAL ONE (08:59)
[2023-09-17] MEDS ORDERED: SCOPOLAMINE HYDROBROMIDE PATCH TD ONE (09:10)
[2023-09-17] MEDS ORDERED: CEFAZOLIN SODIUM 1 GM/VIAL ONE (09:12)
[2023-09-17] MEDS ORDERED: NA CHLORIDE 0.9% 100 ML ONE (09:12)
[2023-09-17] MEDS ORDERED: VASOPRESSIN 20 UNIT/ML VIAL ONE (09:13)
[2023-09-17] MEDS ORDERED: ONDANSETRON 4 MG/2 ML VIAL ONE (09:17)
[2023-09-17] MEDS ORDERED: FENTANYL CITR 100 MCG/2 ML ONE ×2 (09:17→11:23)
[2023-09-17] MEDS ORDERED: propofoL 200 MG/20 ML VIAL IV ONE (09:17)
[2023-09-17] MEDS ORDERED: LIDOCAINE 1% MPF 5 ML VIAL ONE (09:17)
[2023-09-17] MEDS ORDERED: MIDAZOLAM HCL 2 MG/2 ML INJ ONE (09:18)
[2023-09-17] MEDS ORDERED: LIDOCAINE HCL/EPINEPHRINE 20 ML MDV ONE (09:25)
[2023-09-17] MEDS ORDERED: DEXTROSE 10%-WATER 500 ML IV ONE (09:39)
[2023-09-17 09:41] LABS: Absolute Lymphocytes (CBC) 2.5 K/uL (0.7-4.9); Hematocrit 36.4 % (36.0-45.0); Lymphocytes % 24.1 % (15.3-44.8); MCV 90.1 fL (80-100); MPV 7.4 fL (7.6-11.3); Platelets 312 thou/uL (152-406); RBC Red Blood Cell Count 4.05 M/uL (3.86-4.86)
[2023-09-17] MEDS ORDERED: dexAMETHasone 4 MG/ML VIAL ONE (10:14)
[2023-09-17] MEDS ORDERED: HYDROMORPHONE HCL 1 MG/ML INJ ONE (12:40)
[2023-09-17] MEDS ORDERED: WATER IRR ONE (12:45)
[2023-09-17 13:34] VITALS: BP 130/50; TEMP 97.3; O2SAT 95
--- NOTE | 2023-09-18 13:26 | EKG ---
Test Date: 2023-09-17 Test Time: 09:13:00 Consumer Advocate: HAILEE MEASUREMENT RESULTS: Intervals: Rate: 72 WA: 136 QRSD: 76 QT: 402 QTc: 440 [place]: P: 65 WA: 136 QRS: 46 T: 104 INTERPRETIVE STATEMENTS: Normal sinus rhythm Septal infarct, age undetermined Abnormal ECG Compared to ECG 12/04/2022 20:15:12 No significant changes Electronically Signed On 09-18-23 13:23:46 [employer]IMNEY BU[employer]DER HELPER by Arron Baker
== END 2023-09-17 13:35 | disposition home or self-care (01) ==
LOC: OR 08:29
PROVIDERS: ATTEND Obstetrics & Gynecology
PROC: 0TSD0ZZ Reposition Urethra, Open Approach (ICD-10-PCS; principal; 2023-09-17 10:30)
DX: N32.81 Overactive bladder (principal); N39.3 Stress incontinence (female) (male); N81.84 Pelvic muscle wasting; N95.2 Postmenopausal atrophic vaginitis; E11.9 Type 2 diabetes mellitus without complications
CPT/HCPCS: 93005; 85025; 81001; 36415; 86900; 86850; 86901; 82947 ×2; 57288; J2704; J1100; J2001; J2250; J3010 ×2; J1170; J2405; C1771; J7030; J0690

== ENCOUNTER → 2023-10-07 | Emergency (ER) | payer OTHER ==
--- NOTE | 2023-10-07 20:32 | EDPHYS ---
Physician Documentation [facility] Name: Charlotte Ruvalcaba Age: 58 yrs Sex: Female : 1965 Arrival Date: 10/07/2023 Time: 19:37 Bed 20 Private MD: LUCINDA Physician Efren Puente HPI: 10/07 21:14 This 58 yrs old Black Female presents to ER via Ambulatory with complaints of Urinary kb Retention. 21:14 Patient is a 58-year-old female who presents for insertion of urinary catheter. States kb she was seen here earlier today for lower abdominal pain and diagnosed with a UTI. Followed up with Dr. Heredia upon discharge, who inserted a straight cath to drain her bladder. Patient reports alleviation of abdominal pain after bladder was drained. States Dr. Reaves gave her supplies and told her to change out the tube that she put in every 3 hours. States she came in because she does not know how to change it out and requests a Sanches catheter be placed at this time. Patient has a surgery scheduled tomorrow at [address] in the morning with Dr. Heredia. Historical: - Allergies: 19:50 NKDA; km8 - PMHx: 19:50 Anxiety; Asthma; CAD; COPD; Diabetes - IDDM; Gout; Hypertension; Hypothyroidism; km8 - PSHx: 19:50 Appendectomy; back sx; Cholecystectomy; Coronary Stent; hysterectomy; knee replacement; km8 bladder sling (knee replacement); - Immunization history:: Client reports receiving the 2nd dose of the Covid vaccine, Flu vaccine is up to date. - Social history:: Smoking status: Patient/guardian denies using tobacco, but has a distant history of tobacco abuse, Patient/guardian denies using alcohol, street drugs. ROS: 21:14 Constitutional: Negative for fever, chills, and weight loss, kb 21:14 All other systems are negative, Exam: 21:14 Constitutional: This is a well developed, well nourished patient who is awake, alert, kb and in no acute distress. Head/Face: Normocephalic, atraumatic. ENT: Moist Mucous membranes Cardiovascular: Regular rate Respiratory: Respirations even and unlabored. No increased work of breathing. Talking in full sentences Abdomen/GI: Soft, non-tender. No distention Skin: Warm, dry with normal turgor. Normal color. MS/ Extremity: Pulses equal, no cyanosis. Neurovascular intact. Full, normal range of motion. Neuro: Awake and alert, GCS 15, oriented to person, place, time, and situation. Moves all extremities. Normal gait. Vital Signs: 19:47 BP 127 / 67; Pulse 76; Resp 16; Temp 97.9(TE); Pulse Ox 98% on R/A; Weight 80.74 kg km8 (R); Height 5 ft. 4 in. (R); Pain 0/10; 19:56 BP 140 / 47; Pulse 76; Resp 18 S; Pulse Ox 95% on R/A; jw7 19:47 Body Mass Index 30.55 (80.74 kg, 162.56 cm) km8 19:47 Pain Scale: Adult km8 MDM: 19:57 Patient medically screened. kb 21:14 Differential diagnosis: UTI, Urinary retention. Data reviewed: vital signs, nurses kb notes. Counseling: I had a detailed discussion with the patient and/or guardian regarding the historical points, exam findings, and any diagnostic results supporting the discharge/admit diagnosis, the need for outpatient follow up, a urologist, to return to the emergency department if symptoms worsen or persist or if there are any questions or concerns that arise at home. 21:17 ED course: Normal external pelvic exam. Patient believed she had a tube put in that kb needed to be changed out every 3 hours but there is no tube in place. I went through supplies that Dr. Heredia who given patient and it appears that she was supposed to straight cath herself every 3 hours. Patient states she does not want to do that because she does not know how and is afraid she is in about something up and prefers to have a Sanches put in until she goes to the OR tomorrow. 10/07 20:13 Order name: Sanches: place sanches with leg bag ; Complete Time: 20:47 kb Administered Medications: No medications were administered Disposition Summary: 10/07/23 20:32 Discharge Ordered Notes: Location: Home kb Condition: Stable kb Diagnosis - Other retention of urine kb Followup: kb - With: Emergency Department - When: As needed - Reason: Worsening of condition Followup: kb - With: Private Physician - When: 2 - 3 days - Reason: Recheck today's complaints, Continuance of care, Re-evaluation by your physician Discharge Instructions: - Discharge Summary Sheet kb - Acute Urinary Retention, Female, [id number] kb - Indwelling Urinary Catheter Care, Adult, [id number] kb Forms: - Medication Reconciliation Form kb - Thank You Letter kb - Antibiotic Education kb - Prescription Opioid Use kb - Patient Portal Instructions kb - Leadership Thank You Letter kb Signatures: Aubrie Best FNP-C FNP-Ckb Marx, Katie, RN RN km8
--- NOTE | 2023-10-07 20:32 | ER ---
Nurse's Notes [facility] Name: Charlotte Ruvalcaba Age: 58 yrs Sex: Female : 1965 Arrival Date: 10/07/2023 Time: 19:37 Bed 20 Private MD: Diagnosis: Other retention of urine Presentation: 10/07 19:47 Chief complaint: Parent and/or Guardian states: had a straight cath placed in her km8 INSPECTOR BICYCLE/URO doctor today at 1630; pt states "I can't get it out"; also reports haven't urinated since 1630. Coronavirus screen: Client denies travel out of the [place] in the last 14 days. Ebola Screen: No symptoms or risks identified at this time. Initial Sepsis Screen: Does the patient meet any 2 criteria? No. Patient's initial sepsis screen is negative. Does the patient have a suspected source of infection? No. Patient's initial sepsis screen is negative. Risk Assessment: Do you want to hurt yourself or someone else? Patient reports no desire to harm self or others. Onset of symptoms was October 07, 2023 at 16:30. 19:47 Method Of Arrival: Ambulatory km8 19:47 Acuity: RASHAD 4 km8 Triage Assessment: 19:50 General: Appears in no apparent distress. comfortable, Behavior is calm, cooperative, km8 appropriate for age. Pain: Denies pain. EENT: No signs and/or symptoms were reported regarding the EENT system. Neuro: Level of Consciousness is awake, alert, obeys commands, Oriented to person, place, time, situation. Cardiovascular: Denies chest pain, shortness of breath, Capillary refill < 3 seconds Patient's skin is warm and dry. Respiratory: Airway is patent Respiratory effort is even, unlabored, Respiratory pattern is regular, symmetrical. GI: No signs and/or symptoms were reported involving the gastrointestinal system. : Reports inability to void, straight cath is stuck. Derm: No signs and/or symptoms reported regarding the dermatologic system. Skin is intact, is healthy with good turgor, Skin is dry, Skin is pink, warm \\T\\ dry. normal, Skin temperature is warm. Musculoskeletal: No signs and/or symptoms reported regarding the musculoskeletal system. Circulation, motion, and sensation intact. Range of motion: intact in all extremities. Historical: - Allergies: 19:50 NKDA; km8 - PMHx: 19:50 Anxiety; Asthma; CAD; COPD; Diabetes - IDDM; Gout; Hypertension; Hypothyroidism; 8 - PSHx: 19:50 Appendectomy; back sx; Cholecystectomy; Coronary Stent; hysterectomy; knee replacement; km8 bladder sling (knee replacement); - Immunization history:: Client reports receiving the 2nd dose of the Covid vaccine, Flu vaccine is up to date. - Social history:: Smoking status: Patient/guardian denies using tobacco, but has a distant history of tobacco abuse, Patient/guardian denies using alcohol, street drugs. Screenin:57 [facility] ED Fall Risk Assessment (Adult) History of falling in the last 3 months, [facility] including since admission No falls in past 3 months (0 pts) Score/Fall Risk Level 0 - 2 = Low Risk Oriented to surroundings, Maintained a safe environment, Educated pt \\T\\ family on fall prevention, incl call for assistance when getting out of bed. Abuse screen: Denies threats or abuse. Denies injuries from another. Nutritional screening: No deficits noted. Tuberculosis screening: No symptoms or risk factors identified. Assessment: 19:54 General: See Triage Assessment. [facility] Vital Signs: 19:47 BP 127 / 67; Pulse 76; Resp 16; Temp 97.9(TE); Pulse Ox 98% on R/A; Weight 80.74 kg 8 (R); Height 5 ft. 4 in. (R); Pain 0/10; 19:56 BP 140 / 47; Pulse 76; Resp 18 S; Pulse Ox 95% on R/A; jw7 19:47 Body Mass Index 30.55 (80.74 kg, 162.56 cm) 8 19:47 Pain Scale: Adult [facility] ED Course: 19:41 Patient arrived in ED. im 19:50 Triage completed. 8 19:50 Arm band placed on right wrist. 8 19:53 Angella Castillo RN is Primary Nurse. [facility] 19:56 Aubrie Best FNP-C is PHCP. kb 19:57 Efren Puente MD is Attending Physician. kb 19:57 Patient has correct armband on for positive identification. Bed in low position. Call [facility] light in reach. 20:46 Provided Education on: sanches/leg bag care. km8 20:46 Sanches cath inserted, using sterile technique, 18 Fr., returned tong urine. Patient km8 tolerated well. 20:46 No provider procedures requiring assistance completed. Patient did not have IV access ap3 during this emergency room visit. Administered Medications: No medications were administered Medication: 20:47 VIS not applicable for this client. km8 Output: 20:46 Urine: 300ml (Sanches); Total: 300ml. km8 Outcome: 20:32 Discharge ordered by MD. peña 20:47 Discharged to home ambulatory, ap3 20:47 Condition: good 20:47 Discharge instructions given to patient, Instructed on discharge instructions, follow up and referral plans. Demonstrated understanding of instructions, follow-up care, 20:47 Patient left the ED. ap3 Signatures: Aubrie Best, KAREN-Ryann JONES-Sheila Hooper, RN RN ap3 Angella Castillo RN RN jw7 Cassidy Ansari Katie RN RN km8
[2023-10-07 23:34] VITALS: BP 140/47; TEMP 97.9; O2SAT 95
== END ==
LOC: ER 19:37
DX: R33.8 Other retention of urine (principal)

== ENCOUNTER → 2023-10-07 | Emergency (ER) | payer OTHER ==
[~2023-10-07] MED LIST: CEFTRIAXONE 1000 MG/VIAL ONE; FAMOTIDINE 20 MG/2 ML VIAL IV ONE; MORPHINE 4 MG/ML SYR ONE; NA CHLORIDE 0.9% 1,000 ML ONE; ONDANSETRON 4 MG/2 ML VIAL ONE; levoFLOXacin 250 MG TAB ONE
[2023-10-07 13:03] LABS: Hematocrit 36.3 % (36.0-45.0); Lymphocytes % 29.4 % (15.3-44.8); MCV 89.6 fL (80-100); MPV 7.7 fL (7.6-11.3); Platelets 382 thou/uL (152-406); RBC Red Blood Cell Count 4.05 M/uL (3.86-4.86)
[2023-10-07 13:21] LABS: Albumin 3.6 g/dL (3.4-5.0); Bilirubin Total 0.3 mg/dL (0.2-1.0); Potassium 4.1 mEq/L (3.5-5.1); Protein, Total 7.4 g/dL (6.4-8.2)
--- NOTE | 2023-10-07 14:05 | RAD REPORT ---
EXAM DESCRIPTION: CT - Abdomen Pelvis W Contrast - 10/07/2023 1:37 pm CLINICAL HISTORY: Abdominal pain COMPARISON: October 2022 TECHNIQUE: Computed axial tomography of the abdomen pelvis was obtained. 100 cc Isovue-300 was admin istered intravenously. Oral contrast was not requested which limits evaluation of bowel and appendix All CT scans are performed using dose optimization technique as appropriate and may include automated exposure control or mA/KV adjustment according to patient size. FINDINGS: Mild prominence of the intra and extrahepatic biliary tree. Cholecystectomy Liver otherwise appears unremarkable Spleen, pancreas, adrenals and right kidney unremarkable. A 7 millimeter a vague density anterior mid pole left kidney without significant change. Postsurgical changes lumbar spine. Hysterectomy. No adnexal mass. No evidence of diverticulitis IMPRESSION: Mild prominence of the intra and extrahepatic biliary tree may be physiologic in this pa tient status post cholecystectomy. Pathology such as stricture or nonvisualized stone within the dist al common bile duct can also result in this appearance. This should be correlated clinically with naresh ropriate lab values 7 millimeter vague density left kidney does not represent a simple cyst. It is recommended that the p atient have a followup renal ultrasound in 6 months for re-evaluation
[2023-10-07 15:03] LABS: Specific Gravity > 1.030 (1.005-1.030); Urine Bacteria <20 /HPF (<20); Urine Bilirubin NEGATIVE (Negative); Urine Blood Trace (Negative); Urine Clarity Extremely Turbid (Clear); Urine Color Light-Yellow (Yellow); Urine Glucose NEGATIVE (Negative); Urine Mucus Slight /HPF (None Seen); Urine Protein NEGATIVE (Negative); Urine Urobilinogen Normal (Normal); Urine pH 5.5 (5.0-7.0)
--- NOTE | 2023-10-07 15:08 | ER ---
Nurse's Notes [facility] Name: Charlotte Ruvalcaba Age: 58 yrs Sex: Female : 1965 Arrival Date: 10/07/2023 Time: 12:24 Bed 7 Private MD: Diagnosis: Abdominal tenderness;Abnormal findings on diagnostic imaging of other abdominal regions, including retroperitoneum-vague density 7 mm left kidney, needs UROLOGY FOLLOW UP;UTI/ Urinary tract infection, site not specified Presentation: 10/07 12:32 Chief complaint: Patient states: LEFT ABDOMINAL PAIN x2 WK. Coronavirus screen: At this bp time, the client does not indicate any symptoms associated with coronavirus-19. Ebola Screen: No symptoms or risks identified at this time. Initial Sepsis Screen: Does the patient meet any 2 criteria? No. Patient's initial sepsis screen is negative. Does the patient have a suspected source of infection? No. Patient's initial sepsis screen is negative. Risk Assessment: Do you want to hurt yourself or someone else? Patient reports no desire to harm self or others. Note SEEN BY DR CAMP Y/Geovany. Onset of symptoms is unknown. 12:32 Method Of Arrival: Ambulatory bp 12:32 Acuity: RASHAD 3 bp Triage Assessment: 12:33 General: Appears distressed, uncomfortable, Behavior is cooperative, appropriate for bp age, anxious. Pain: Complains of pain in abdomen. GI: Reports cramping, nausea, Patient currently denies constipation, diarrhea, vomiting. Historical: - Allergies: 12:33 NKDA; bp - PMHx: 12:33 Gout; Diabetes - IDDM; COPD; CAD; Asthma; Anxiety; Hypertension; Hypothyroidism; bp - PSHx: 12:33 Appendectomy; hysterectomy; Coronary Stent; Cholecystectomy; back sx; knee replacement; bp - Immunization history:: Adult Immunizations up to date. - Social history:: Smoking status: Patient denies any tobacco usage or history of. Screenin:56 [facility] ED Fall Risk Assessment (Adult) History of falling in the last 3 months, kc6 including since admission No falls in past 3 months (0 pts) Confusion or Disorientation No (0 pts) Intoxicated or Sedated No (0 pts) Impaired Gait No (0 pts) Mobility Assist Device Used No (0 pt) Altered Elimination No (0 pt) Score/Fall Risk Level 0 - 2 = Low Risk. Abuse screen: Denies threats or abuse. Denies injuries from another. Nutritional screening: No deficits noted. Tuberculosis screening: No symptoms or risk factors identified. Assessment: 12:30 General: Appears distressed, uncomfortable, Behavior is cooperative. Pain: Complains of rs5 pain in left lower quadrant Pain radiates to back Pain currently is 10 out of 10 on a pain scale. Quality of pain is described as aching, Pain began one week ago Is continuous, Noted to be moaning. Neuro: Level of Consciousness is awake, alert, obeys commands, Oriented to person, place, time, situation. Cardiovascular: Heart tones S1 S2 present Patient's skin is warm and dry. Rhythm is regular. Respiratory: Airway is patent Respiratory effort is even, unlabored, Respiratory pattern is regular, symmetrical, Breath sounds are clear bilaterally. 12:30 GI: Abdomen is round non-distended, Bowel sounds present X 4 quads. Abd is soft and non rs5 tender X 4 quads. Reports nausea. : No signs and/or symptoms were reported regarding the genitourinary system. EENT: No signs and/or symptoms were reported regarding the EENT system. Derm: Skin is intact, Skin is dry, Skin is normal, Skin temperature is warm. Musculoskeletal: Range of motion: intact in all extremities. 12:30 Pain: Complains of pain in chest Pain does not radiate. Pain currently is 9 out of 10 rs5 on a pain scale. Quality of pain is described as aching, Pain began 2-3 days ago. Is intermittent. 14:04 Reassessment: Patient appears in no apparent distress at this time. No changes from kc6 previously documented assessment. Patient and/or family updated on plan of care and expected duration. Pain level reassessed. Patient is alert, oriented x 3, equal unlabored respirations, skin warm/dry/pink. 14:51 Reassessment: Patient appears in no apparent distress at this time. No changes from kc6 previously documented assessment. Patient and/or family updated on plan of care and expected duration. Pain level reassessed. Patient is alert, oriented x 3, equal unlabored respirations, skin warm/dry/pink. Vital Signs: 12:32 BP 105 / 90; Pulse 84; Resp 16; Temp 98; Pulse Ox 96% ; Weight 81.19 kg; Height 5 ft. 4 bp in. ; 14:17 BP 142 / 62; Pulse 76; Resp 16 S; Pulse Ox 95% on R/A; kc6 12:32 Body Mass Index 30.72 (81.19 kg, 162.56 cm) bp ED Course: 12:27 Patient arrived in ED. im 12:27 Efren Puente MD is Attending Physician. edilson 12:33 Triage completed. bp 12:33 Arm band placed on. bp 12:35 Inserted saline lock: 20 gauge in right antecubital area, using aseptic technique. rs5 Blood collected. 12:56 Patient has correct armband on for positive identification. Bed in low position. Call kc6 light in reach. Side rails up X 1. Client placed on continuous cardiac and pulse oximetry monitoring. NIBP monitoring applied. 12:56 Patient maintains SpO2 saturation greater than 95% on room air. kc6 13:39 CT Abd/Pelvis - IV Contrast Only In Process Unspecified. EDMS 14:16 Geena Hampton, ALOK is Primary Nurse. kc6 15:07 Yuniel Ballesteros MD is Referral Physician. edilson 15:24 No provider procedures requiring assistance completed. IV discontinued, intact, kc6 bleeding controlled, No redness/swelling at site. Pressure dressing applied. Administered Medications: 12:56 Drug: NS 0.9% IV 1000 ml IV at 1 bolus Per protocol; 1000 mL bolus Route: IV; Rate: 1 kc6 bolus; Site: right antecubital; 14:51 Follow up: Response: No adverse reaction; IV Status: Completed infusion; IV Intake: kc6 1000ml 12:56 Drug: Ondansetron IVP 4 mg IVP once; over 2 minutes Route: IVP; Site: right antecubital;kc6 14:17 Follow up: Response: No adverse reaction; Nausea is decreased kc6 12:56 Drug: morphine IVP or IV 4 mg IVP once over 4 mins Route: IVP; Infused Over: 4 mins; kc6 Site: right antecubital; 14:18 Follow up: Response: No adverse reaction; Pain is decreased; RASS: Alert and Calm (0) kc6 12:56 Drug: Famotidine IVP 20 mg IVP once; dilute with 10 mL 0.9% NaCl; give over 2 minutes kc6 Route: IVP; Site: right antecubital; 14:18 Follow up: Response: No adverse reaction kc6 15:24 Drug: Rocephin IV 1 grams IV at per protocol once; Given slow IV push per pharmacy kc6 instructions Route: IV; Rate: per protocol; Site: right antecubital; 15:24 Drug: LevOfloxacin PO 500 mg PO once Route: PO; kc6 Medication: 15:24 VIS not applicable for this client. kc6 Intake: 14:51 IV: 1000ml; Total: 1000ml. kc6 Outcome: 15:08 Discharge ordered by MD. waggoner 15:24 Discharged to home ambulatory, kc6 15:24 Condition: improved 15:24 Discharge instructions given to patient, Instructed on discharge instructions, follow up and referral plans. medication usage, Demonstrated understanding of instructions, follow-up care, medications, Prescriptions given X 4, 15:24 Patient left the ED. kc6 Signatures: Dispatcher [employer] EDMS Efren Puente MD MD cha Peltier, Brian, RN RN Geena Quijano RN RN kc6 Demetrio Trevino RN RN rs5 Cassidy Ansari
--- NOTE | 2023-10-07 15:08 | EDPHYS ---
Physician Documentation [facility] Name: Charlotte Ruvalcaba Age: 58 yrs Sex: Female : 1965 Arrival Date: 10/07/2023 Time: 12:24 Bed 7 Private MD: ED Physician Efren Puente HPI: 10/07 12:41 This 58 yrs old Black Female presents to ER via Ambulatory with complaints of Abdominal edilson Pain. 12:41 The patient presents with abdominal pain abdominal distention in the upper abdomen, in edilson the lower abdomen. Onset: The symptoms/episode began/occurred 2 day(s) ago. The symptoms do not radiate. Associated signs and symptoms: none. The symptoms are described as crampy, sharp. Modifying factors: The symptoms are alleviated by nothing, the symptoms are aggravated by movement, pressure, touching the area. Severity of pain: At its worst the pain was moderate severe in the emergency department the pain is unchanged. The patient has not experienced similar symptoms in the past. Historical: - Allergies: 12:33 NKDA; bp - PMHx: 12:33 Gout; Diabetes - IDDM; COPD; CAD; Asthma; Anxiety; Hypertension; Hypothyroidism; bp - PSHx: 12:33 Appendectomy; hysterectomy; Coronary Stent; Cholecystectomy; back sx; knee replacement; bp - Immunization history:: Adult Immunizations up to date. - Social history:: Smoking status: Patient denies any tobacco usage or history of. ROS: 12:42 Constitutional: Negative for fever, chills, and weight loss, Eyes: Negative for injury, edilson pain, redness, and discharge, ENT: Negative for injury, pain, and discharge, Neck: Negative for injury, pain, and swelling, Cardiovascular: Negative for chest pain, palpitations, and edema, Respiratory: Negative for shortness of breath, cough, wheezing, and pleuritic chest pain, Back: Negative for injury and pain, : Negative for injury, bleeding, discharge, and swelling, MS/Extremity: Negative for injury and deformity, Skin: Negative for injury, rash, and discoloration, Neuro: Negative for headache, weakness, numbness, tingling, and seizure, Psych: Negative for depression, anxiety, suicide ideation, homicidal ideation, and hallucinations, Allergy/Immunology: Negative for hives, rash, and allergies, Endocrine: Negative for neck swelling, polydipsia, polyuria, polyphagia, and marked weight changes, Hematologic/Lymphatic: Negative for swollen nodes, abnormal bleeding, and unusual bruising, 12:42 Abdomen/GI: Positive for abdominal pain, of the left upper quadrant, Exam: 12:42 Constitutional: This is a well developed, well nourished patient who is awake, alert, edilson and in no acute distress. Head/Face: Normocephalic, atraumatic. Eyes: Pupils equal round and reactive to light, extra-ocular motions intact. Lids and lashes normal. Conjunctiva and sclera are non-icteric and not injected. Cornea within normal limits. Periorbital areas with no swelling, redness, or edema. ENT: Nares patent. No nasal discharge, no septal abnormalities noted. Tympanic membranes are normal and external auditory canals are clear. Oropharynx with no redness, swelling, or masses, exudates, or evidence of obstruction, uvula midline. Mucous membranes moist. Neck: Trachea midline, no thyromegaly or masses palpated, and no cervical lymphadenopathy. Supple, full range of motion without nuchal rigidity, or vertebral point tenderness. No Meningismus. Chest/axilla: Normal chest wall appearance and motion. Nontender with no deformity. No lesions are appreciated. Cardiovascular: Regular rate and rhythm with a normal S1 and S2. No gallops, murmurs, or rubs. Normal PMI, no JVD. No pulse deficits. Respiratory: Lungs have equal breath sounds bilaterally, clear to auscultation and percussion. No rales, rhonchi or wheezes noted. No increased work of breathing, no retractions or nasal flaring. Back: No spinal tenderness. No costovertebral tenderness. Full range of motion. Female : Normal external genitalia. Skin: Warm, dry with normal turgor. Normal color with no rashes, no lesions, and no evidence of cellulitis. MS/ Extremity: Pulses equal, no cyanosis. Neurovascular intact. Full, normal range of motion. Neuro: Awake and alert, GCS 15, oriented to person, place, time, and situation. Cranial nerves II-XII grossly intact. Motor strength 5/5 in all extremities. Sensory grossly intact. Cerebellar exam normal. Normal gait. Psych: Awake, alert, with orientation to person, place and time. Behavior, mood, and affect are within normal limits. 12:42 Abdomen/GI: Inspection: distension, that is mild, Bowel sounds: normal, in all quadrants, Palpation: moderate abdominal tenderness, in the left upper quadrant and left lower quadrant, Liver: no appreciated palpable abnormalities, Hernia: not appreciated, Vital Signs: 12:32 BP 105 / 90; Pulse 84; Resp 16; Temp 98; Pulse Ox 96% ; Weight 81.19 kg; Height 5 ft. 4 bp in. ; 14:17 BP 142 / 62; Pulse 76; Resp 16 S; Pulse Ox 95% on R/A; kc6 12:32 Body Mass Index 30.72 (81.19 kg, 162.56 cm) bp MDM: 12:27 Patient medically screened. [facility] 12:46 Differential diagnosis: non-specific abd pain. Data reviewed: vital signs, nurses [facility] notes, lab test result(s), radiologic studies, CT scan. Consideration of Admission/Observation Escalation of care including admission/observation considered. I considered the following discharge prescriptions or medication management in the emergency department Medications were administered in the Emergency Department. See MAR. Independent interpretation of the following test(s) in the Emergency Department CT Scan: My interpretation is ct abd pelvis. 10/07 12:27 Order name: CBC with Diff; Complete Time: 13:12 [facility] 10/07 12:27 Order name: CMP; Complete Time: 14:19 [facility] 10/07 12:27 Order name: Lipase; Complete Time: 14:19 [facility] 10/07 12:27 Order name: Urinalysis w/ reflexes; Complete Time: 15:07 [facility] 10/07 12:41 Order name: CT Abd/Pelvis - IV Contrast Only; Complete Time: 14:19 [facility] 10/07 12:27 Order name: IV Saline Lock; Complete Time: 12:53 [facility] 10/07 12:27 Order name: Labs collected and sent; Complete Time: 12:53 [facility] Administered Medications: 12:56 Drug: NS 0.9% IV 1000 ml IV at 1 bolus Per protocol; 1000 mL bolus Route: IV; Rate: 1 kc6 bolus; Site: right antecubital; 14:51 Follow up: Response: No adverse reaction; IV Status: Completed infusion; IV Intake: kc6 1000ml 12:56 Drug: Ondansetron IVP 4 mg IVP once; over 2 minutes Route: IVP; Site: right antecubital;kc6 14:17 Follow up: Response: No adverse reaction; Nausea is decreased 6 12:56 Drug: morphine IVP or IV 4 mg IVP once over 4 mins Route: IVP; Infused Over: 4 mins; kc6 Site: right antecubital; 14:18 Follow up: Response: No adverse reaction; Pain is decreased; RASS: Alert and Calm (0) 6 12:56 Drug: Famotidine IVP 20 mg IVP once; dilute with 10 mL 0.9% NaCl; give over 2 minutes kc6 Route: IVP; Site: right antecubital; 14:18 Follow up: Response: No adverse reaction 6 15:24 Drug: Rocephin IV 1 grams IV at per protocol once; Given slow IV push per pharmacy 6 instructions Route: IV; Rate: per protocol; Site: right antecubital; 15:24 Drug: LevOfloxacin PO 500 mg PO once Route: PO; kc6 Disposition Summary: 10/07/23 15:08 Discharge Ordered Notes: Location: Home edilson Problem: new edilson Symptoms: have improved edilson Condition: Stable edilson Diagnosis - Abdominal tenderness edilson - Abnormal findings on diagnostic imaging of other abdominal regions, including edilson retroperitoneum - vague density 7 mm left kidney, needs UROLOGY FOLLOW UP - UTI/ Urinary tract infection, site not specified edilson Followup: edilson - With: Private Physician - When: 2 - 3 days - Reason: Recheck today's complaints, Continuance of care, Re-evaluation by your physician Followup: edilson - With: Yuniel Ballesteros MD - When: 2 - 3 days - Reason: Recheck today's complaints, Re-evaluation by your physician Discharge Instructions: - Discharge Summary Sheet edilson - Abdominal Pain, Adult edilson - Urinary Tract Infection, Adult edilson - Urinary Tract Infection, Adult, [id number] edilson - Abdominal Pain, Adult, [id number] edilson - Incidental Abnormal Radiological Finding [facility] Forms: - Medication Reconciliation Form [facility] - Thank You Letter edilson - Antibiotic Education edilson - Prescription Opioid Use edilson - Patient Portal Instructions [facility] - Leadership Thank You Letter [facility] Prescriptions: - ondansetron 4 mg Oral Tablet,disintegrating - take 1 tablet ORAL route every 8 hours for 5 days; 20 tablet; Refills: 0, [facility] Product Selection Permitted - Pepcid 20 mg Oral Tablet - take 1 tablet ORAL route every 12 hours for 10 days; 20 tablet; Refills: 0, edilson Product Selection Permitted - dicyclomine 20 mg Oral tablet - take 1 tablet ORAL route 4 times per day; 28 tablet; Refills: 0, Product edilson Selection Permitted - levofloxacin 250 mg Oral tablet - take 1 tablet ORAL route once daily; 7 tablet; Refills: 0, Product Selection edilson Permitted Signatures: Dispatcher [employer] Efren Carpio MD MD cha Peltier, Brian RN RN Geena Quijano RN RN kc6
[2023-10-07 17:22] VITALS: BP 142/62; TEMP 98; O2SAT 95
== END ==
LOC: ER 12:24
DX: N39.0 Urinary tract infection, site not specified (principal); R93.5 Abnormal findings on diagnostic imaging of other abdominal regions, including retroperitoneum; Z95.818 Presence of other cardiac implants and grafts
CPT/HCPCS: 36415; 74177; 80053; 81001; 83690; 85025; J0696; J2405; J7030; Q9967

== ENCOUNTER 2023-10-08 09:09 | Day surgery (SDC) | payer OTHER ==
[2023-10-08] MEDS ORDERED: NA CHLORIDE 0.9% 1,000 ML ONE ×2 (10:06→13:20)
[2023-10-08] MEDS ORDERED: NA CHLORIDE 0.9% 0 ML ONE (13:20)
[2023-10-08] MEDS ORDERED: VASOPRESSIN 20 UNIT/ML VIAL ONE (13:21)
[2023-10-08] MEDS ORDERED: propofoL 200 MG/20 ML VIAL IV ONE (13:23)
[2023-10-08] MEDS ORDERED: KETOROLAC 30 MG/ML INJ ONE (13:23)
[2023-10-08] MEDS ORDERED: dexAMETHasone 10 MG/ML VIAL ONE (13:23)
[2023-10-08] MEDS ORDERED: ONDANSETRON 4 MG/2 ML VIAL ONE (13:23)
[2023-10-08] MEDS ORDERED: LIDOCAINE 2% MPF 5 ML VIAL ONE (13:24)
[2023-10-08] MEDS ORDERED: MIDAZOLAM HCL 2 MG/2 ML INJ ONE (13:24)
[2023-10-08] MEDS ORDERED: FENTANYL CITR 100 MCG/2 ML ONE (13:24)
[2023-10-08] MEDS ORDERED: LIDOCAINE HCL/EPINEPHRINE 20 ML MDV ONE (13:34)
[2023-10-08] MEDS: CEFAZOLIN SODIUM 1 GM/VIAL ONE ×3 (14:47→15:28)
[2023-10-08] MEDS ORDERED: CEFAZOLIN SODIUM 1 GM/VIAL ONE (15:27)
[2023-10-08] MEDS ORDERED: NS 0.9% VIAL 20 ML ONE (15:27)
[2023-10-08] MEDS ORDERED: FLUTICASONE PROPIONATE IH PRN (16:12)
[2023-10-08] MEDS ORDERED: HYDROCODONE/APAP 5/325 MG TAB PO PRN (16:35)
--- NOTE | 2023-10-08 16:38 | P.BOP ---
Preoperative diagnosis: urinary retention postop from sling Postoperative diagnosis: same Primary procedure: sling revision, cystoscopy Estimated blood loss: min Specimen: none Findings: divided in the middle, released the tension, cysto neg Anesthesia: MAC Complications: None Drain(s): Urinary catheter Transferred to: Recovery Room Condition: Good
[2023-10-08 16:49] VITALS: TEMP 97.5
[2023-10-08] MEDS ORDERED: HOME MED 1 EA UNK (Metformin Hcl [Metformin Hcl] 1,000 MG Tablet) PO SCH (17:00)
[2023-10-08] MEDS ORDERED: HYDROCODONE/APAP 5/325 MG TAB ONE (17:35)
[2023-10-08 18:05] VITALS: BP 142/64; O2SAT 96
[2023-10-08] MEDS ORDERED: methocarbamoL 750 MG TAB PO SCH (21:00)
[2023-10-08] MEDS ORDERED: ATORVASTATIN 40 MG TAB PO SCH (21:00)
[2023-10-08] MEDS ORDERED: GABAPENTIN 300 MG CAP PO SCH (21:00)
[2023-10-08] MEDS ORDERED: HYDROCODONE/APAP 10/325 TAB PO SCH (21:00)
[2023-10-08] MEDS ORDERED: AZELASTINE NASAL SPRAY 30 ML NAS SCH (21:00)
--- NOTE | 2023-10-09 02:36 | OP ---
Date of Procedure: 10/08/2023 Surgeon: Keila Heredia MD Balance Wheel Motion Inspector: None. Preoperative Diagnosis: Urinary retention postop from sling. Postoperative Diagnosis: Urinary retention postop from sling. Procedures Performed: Sling revision with cystoscopy. Specimens: None. Complications: None. Drains: Pike catheter. Findings: Divided the sling in the middle, released the tension by releasing the scar on both sides. Unable to change the tension on the anchor point. Bleeding was minimal. The edges of the incision that was open, were revised. On cystoscopy, the urethra was examined with a 0-degree lens before an d after the revision and it was unremarkable. The sling did not appear to be too tight even on first examination; however, since the patient is symptomatic and this is clearly postoperatively. Despite immediate postop voiding being normal, this is a new development that she has had and so decided to divide the sling in the middle. By using the 30-degree scope, examination of the bladder was complet riky unremarkable. No trauma to the bladder. Estimated Blood Loss: Minimal. Disposition: Transferred to the recovery room in stable condition. Brief History And Physical: The patient is a 58-year-old status post sling 2 weeks ago. Had a PVR l ess than 50 on her first voiding trial postoperatively in the office. However, went to the emergency room yesterday for 3 days' history of suprapubic pain and inability to empty her bladder. She was g iven antibiotic empiric for UTI. However, I saw her in the office and did not assume that the urine dips looked positive for infection. The retention appeared to have evolved over the period of the ms st 3-5 days, so after examining the patient, the likely cause was potential scar that could have furt her tensioned the sling under the urethra. So discussed the benefits and risks of the procedure and consented her and brought to the OR. Description Of Operation: 2 g of Ancef were given. SCDs were placed. Time-out was done. She was g iven general with LMA, placed in a dorsal lithotomy position. Vulva, vagina, and perineum prepped an d draped with Betadine. The Pike catheter was removed, which was placed in the ER last night. She failed to be able to self-cath intermittently. The cystoscopy with 30-degree lens and 0-degree lens were examined. The bladder was unremarkable. T he urethra was unremarkable as well. I did not see a huge bridge into the mid urethral area. Howeve r, there was good closure and coaptation here. The camera was removed. Pike was inserted, 16-Frenc h and the incision was opened up after injecting with 1% lidocaine with epinephrine 10 cc in total, w ith 5 cc on each side. The suture line was opened up. The sling was well exposed. It was held with a hemostat, and the sub urethral tissue was dissected gently to release the sling. In a similar fashion, both arms were rele ased by dissecting the tunnels to the anchor site, tried to tug after releasing both inner and outer aspects of the sling, but the anchor was firmly in place, so proceeded to divide the sling in the mid dle and allowed it to gently retract to the periurethral areas, leaving at least less than 1 cm, appr oximately 1 cm suburethral area without the mesh. The edges were resected with Efrain, closed with 3-0 Monocryl in a continuous running fashion. Pike was removed. Cystoscopy was performed. Urethrosco py was performed, and this was unremarkable without any trauma. The position still seemed to be good . She was recovered from anesthesia with the Pike catheter and taken to PACU in stable condition. She will have a voiding trial before she is discharged home. SASKIA/CANDACE Voice ID: [id number] Report ID: [id number]
[2023-10-09] MEDS ORDERED: LOSARTAN POTASSIUM 50 MG TABLET PO SCH (09:00)
[2023-10-09] MEDS ORDERED: MONTELUKAST 10 MG TAB PO SCH (09:00)
[2023-10-09] MEDS ORDERED: HOME MED 1 EA UNK (Esomeprazole Magnesium [Esomeprazole Magnesium] 40 MG Capsule.Dr) PO SCH (09:00)
[2023-10-09] MEDS ORDERED: AMITRIPTYLINE 25 MG TAB PO SCH (09:00)
[2023-10-09] MEDS ORDERED: ASPIRIN 81 MG CHEWABLE TABLET PO SCH (09:00)
[2023-10-09] MEDS ORDERED: LEVOTHYROXINE SOD 0.05 MG TABLET PO SCH (09:00)
[2023-10-09] MEDS ORDERED: DULOXETINE 20 MG CAP PO SCH (09:00)
[2023-10-09] MEDS ORDERED: PLECANATIDE 3 MG PO SCH (09:00)
[2023-10-09] MEDS ORDERED: HOME MED 1 EA UNK (Insulin Degludec [Tresiba Flextouch U-100] 100 UNIT/ML Insuln.Pen) SQ SCH (09:00)
[2023-10-09] MEDS ORDERED: FLUTICASONE 50MCG NASAL SPRAY NAS SCH (09:00)
[2023-10-09] MEDS ORDERED: HOME MED 1 EA UNK (Semaglutide [Rybelsus] 14 MG Tablet) PO SCH (09:00)
[2023-10-09] MEDS ORDERED: [UNRECOGNIZED DRUG - REMARK] PO SCH (09:00)
[2023-10-09] MEDS ORDERED: FUROSEMIDE 20 MG TABLET PO SCH (09:00)
[2023-10-15] MEDS ORDERED: SEMAGLUTIDE 2 MG/0.75 ML SQ SCH (09:00)
== END 2023-10-08 17:56 | disposition home or self-care (01) ==
LOC: OR 09:09
PROVIDERS: ATTEND Obstetrics & Gynecology
PROC: 0TW Urinary System, Revision (ICD-10-PCS; principal; 2023-10-08 14:00)
DX: R33.9 Retention of urine, unspecified (principal); E11.9 Type 2 diabetes mellitus without complications; K21.9 Gastro-esophageal reflux disease without esophagitis; E78.00 Pure hypercholesterolemia, unspecified; I10 Essential (primary) hypertension; M06.9 Rheumatoid arthritis, unspecified; Z98.890 Other specified postprocedural states
CPT/HCPCS: 82947 ×2; 57287; A4216; J2704; J2001; J2250; J3010; J1100; J2405; J7030 ×2; J0690 ×2

== ENCOUNTER 2024-02-10 15:50 | Observation (INO) | payer OTHER ==
[2024-02-10] MEDS ORDERED: ASPIRIN 81 MG CHEWABLE TABLET ONE (16:26)
[2024-02-10 16:43] LABS: Absolute Basophils 0.1 K/uL (0-0.5); Absolute Eosinophils 0.2 K/uL (0-0.5); Absolute Monocytes 0.7 K/uL (0.1-1.3); Absolute Neutrophil 4.5 K/uL (1.8-8.0); Eosinophils % 2.9 % (0-4.4); Hematocrit 33.6 % (36.0-45.0); Hemoglobin 11.2 g/dL (12.0-15.0); MCH 29.7 pg (27.0-35.0); MCHC 33.2 g/dL (32.0-36.0); MCV 89.5 fL (80-100); MPV 7.8 fL (7.6-11.3); Monocytes % 8.2 % (3.3-12.3); Neutrophils % 52.9 % (41.7-73.7); Platelets 319 thou/uL (152-406); RBC Red Blood Cell Count 3.76 M/uL (3.86-4.86); Red Cell Distribution Width 14.4 % (12.1-15.2)
[2024-02-10 16:59] LABS: ALT/SGPT 26 U/L (13-56); AST/SGOT 20 U/L (15-37); Albumin 3.6 g/dL (3.4-5.0); Alkaline Phosphatase 76 U/L (45-117); Anion Gap 8.1 mEq/L (5.0-15.0); BUN Blood Urea Nitrogen 8 mg/dL (7-18); Bicarbonate 28 mEq/L (21-32); Bilirubin Total 0.2 mg/dL (0.2-1.0); Globulin 3.5 g/dL (2.3-3.5); Glomerular Filtration Rate 96 ml/min (=/>90); Glucose Level 149 mg/dL (74-106); Magnesium 1.6 mg/dL (1.6-2.4); Potassium 4.1 mEq/L (3.5-5.1); Protein, Total 7.1 g/dL (6.4-8.2); Sodium Level 137 mEq/L (136-145); Troponin High Sensitivity 4.1 pg/mL (<58.9)
[2024-02-10 17:02] LABS: Bilirubin Direct < 0.2 mg/dL (0-0.2)
--- NOTE | 2024-02-10 17:07 | RAD REPORT ---
EXAM DESCRIPTION: RAD - Chest Single View - 02/10/2024 4:57 pm CLINICAL HISTORY: CHEST PAIN Chest pain. COMPARISON: Chest Single View dated 12/04/2022; Chest Single View dated 10/29/2022; Chest Single View dated 09/02/2022; Chest Single View dated 10/22/2021; Chest Pa And Lat (2 Views) dated 11/08/2019 FINDINGS: Portable technique limits examination quality. The lungs are grossly clear. The heart is normal in size. No displaced fractures. IMPRESSION: No acute intrathoracic process suspected.
--- NOTE | 2024-02-10 17:16 | ER ---
Nurse's Notes [facility] Name: Charlotte Ruvalcaba Age: 58 yrs Sex: Female : 1965 Arrival Date: 02/10/2024 Time: 15:50 Bed 18 Private MD: Diagnosis: Chest pain, unspecified;Anemia, unspecified Presentation: 02/09 16:04 Chief complaint: Patient states: she has been having chest pain for approx 4 days. ap3 patient complains of pain being 10/10 on the pain scale. patient states that she also has dizziness, and shortness of breath during this time. Coronavirus screen: At this time, the client does not indicate any symptoms associated with coronavirus-19. Ebola Screen: No symptoms or risks identified at this time. Initial Sepsis Screen: Does the patient meet any 2 criteria? No. Patient's initial sepsis screen is negative. Does the patient have a suspected source of infection? No. Patient's initial sepsis screen is negative. Risk Assessment: Do you want to hurt yourself or someone else? Patient reports no desire to harm self or others. Onset of symptoms was February 06, 2024. 16:04 Method Of Arrival: Ambulatory ap3 16:04 Acuity: RASHAD 2 ap3 Triage Assessment: 16:06 General: Appears in no apparent distress. Behavior is calm, cooperative, appropriate ap3 for age. Pain: Complains of pain in chest. Neuro: Level of Consciousness is awake, alert, obeys commands, Oriented to person, place, time, situation. Cardiovascular: Reports chest pain, shortness of breath. Respiratory: Airway is patent Respiratory effort is even, unlabored, Respiratory pattern is regular, symmetrical. GI: Reports nausea. Historical: - Allergies: 16:06 NKDA; ap3 - PMHx: 16:06 Anxiety; Asthma; CAD; COPD; Diabetes - IDDM; Gout; Hypertension; Hypothyroidism; ap3 - PSHx: 16:06 Appendectomy; back sx; bladder sling; Cholecystectomy; Coronary Stent; gastric sleeve ap3 (ep); hysterectomy; knee replacement; - Immunization history:: Client reports receiving the 2nd dose of the Covid vaccine. - Infectious Disease History:: Denies. - Social history:: Smoking status: Patient/guardian denies using tobacco, the patient reports quitting approximately 20 years ago. Screenin:07 Abuse screen: Denies threats or abuse. Nutritional screening: No deficits noted. ap3 Tuberculosis screening: No symptoms or risk factors identified. 16:39 [facility] ED Fall Risk Assessment (Adult) History of falling in the last 3 months, ld1 including since admission No falls in past 3 months (0 pts). Assessment: 16:07 Pain: Pain does not radiate. Pain began 4 days ago. ap3 16:39 General: Appears in no apparent distress. comfortable, Behavior is calm, cooperative, ld1 appropriate for age. Neuro: Level of Consciousness is awake, alert, obeys commands, Oriented to person, place, time, situation, Appropriate for age. Cardiovascular: Capillary refill < 3 seconds Patient's skin is warm and dry. Cardiovascular: Reports chest pain, Rhythm is sinus rhythm. Respiratory: Airway is patent Respiratory effort is even, unlabored. GI: Abdomen is round non-distended. : No signs and/or symptoms were reported regarding the genitourinary system. EENT: No signs and/or symptoms were reported regarding the EENT system. Derm: No signs and/or symptoms reported regarding the dermatologic system. Musculoskeletal: No signs and/or symptoms reported regarding the musculoskeletal system. Vital Signs: 16:04 BP 142 / 66; Pulse 76; Resp 17; Temp 98.4; Pulse Ox 98% ; Weight 81.65 kg; Height 5 ft. ap3 4 in. ; Pain 10/10; 16:38 BP 138 / 64; Pulse 69; Resp 15; Pulse Ox 96% on R/A; ld1 17:54 BP 153 / 71; Pulse 69; Resp 18; Pulse Ox 97% on R/A; ld1 19:00 BP 129 / 57; Pulse 71; Resp 18; Pulse Ox 98% ; km8 16:04 Body Mass Index 30.90 (81.65 kg, 162.56 cm) ap3 16:04 Pain Scale: Adult ap3 ED Course: 15:52 Patient arrived in ED. mr 15:56 Isael Grier DO is Attending Physician. ms3 16:04 EKG done, by ED staff, reviewed by Isael Grier DO. ap3 16:06 Triage completed. ap3 16:07 O2 via room air. ap3 16:07 Arm band placed on right wrist. ap3 16:11 Breneman, Isela, RN is Primary Nurse. mb9 16:14 Primary Nurse role handed off by Sherine Dotson, ALOK ld1 16:14 Lakeshia Grier, RN is Primary Nurse. ld1 16:39 No provider procedures requiring assistance completed. Inserted saline lock: 20 gauge ld1 in right antecubital area, using aseptic technique. Blood collected. 16:39 Patient has correct armband on for positive identification. Placed in gown. Bed in low ld1 position. Call light in reach. Side rails up X2. surveillance monitor on. Pulse ox on. NIBP on. Door closed. Noise minimized. Warm blanket given. 16:59 XRAY Chest (1 view) In Process Unspecified. EDMS 17:14 Jolly Adame MD is Hospitalizing Provider. ms3 02/10 02:02 Primary Nurse role handed off by Lakeshia Grier, RN cp4 02:02 Nancy Briggs is Primary Nurse. cp4 13:48 Patient admitted, IV remains in place. hb Administered Medications: 02/09 16:40 Drug: Aspirin PO Chewable Tablet 324 mg PO once; 81 mg tablets x 4 Route: PO; ld1 Medication: 02/10 13:48 VIS not applicable for this client. hb Outcome: 02/09 17:15 Decision to Hospitalize by Provider. ms3 02/10 13:47 Admitted to Med/surg accompanied by tech, via wheelchair, room 215, Other Pt in [facility] hb med, getting stress test done, will be taken by their staff to room. porcelain technician taking patient belongings as well as new labels to room at this time. Neha from second floor notiffied. Condition: stable Instructed on the need for admit, 13:48 Patient left the ED. hb Signatures: Dispatcher [employer] EDSC Shreine Rock, Reg Reg mr ShepherdterBirgit, RN RN Sheila Hurst, RN RN ap3 Isael Grier, DO ms3 Lakeshia Grier, ALOK DICKINSON ld1 Sherine Dotson, RN RN Nancy Crabtree cp4 Loraine Salinas RN RN km8
--- NOTE | 2024-02-10 17:16 | EDPHYS ---
Physician Documentation [facility] Name: Charlotte Ruvalcaba Age: 58 yrs Sex: Female : 1965 Arrival Date: 02/10/2024 Time: 15:50 Bed 18 Private MD: ED Physician Isael Grier HPI: 02/09 16:04 This 58 yrs old Black Female presents to ER via Unassigned with complaints of Chest ms3 Pain. 16:04 58-year-old female with past medical history of hypertension, hyperlipidemia, pression, ms3 hypothyroidism, COPD presents emergency department for sharp chest pain that is been intermittent for 3 to 4 days. Patient states the pain lasted approximately 15 minutes when it occurs. Patient endorses shortness of breath, dizziness, nausea. Patient denies vomiting. Patient states the discomfort is a 10/10. Historical: - Allergies: 16:06 NKDA; ap3 - PMHx: 16:06 Anxiety; Asthma; CAD; COPD; Diabetes - IDDM; Gout; Hypertension; Hypothyroidism; ap3 - PSHx: 16:06 Appendectomy; back sx; bladder sling; Cholecystectomy; Coronary Stent; gastric sleeve ap3 (ep); hysterectomy; knee replacement; - Immunization history:: Client reports receiving the 2nd dose of the Covid vaccine. - Infectious Disease History:: Denies. - Social history:: Smoking status: Patient/guardian denies using tobacco, the patient reports quitting approximately 20 years ago. ROS: 16:04 Constitutional: Negative for fever, and chills. Neck: Negative for injury, pain, and ms3 swelling, 16:04 MS/Extremity: Negative for injury and deformity, Skin: Negative for injury, rash, and discoloration, 16:04 Cardiovascular: Positive for chest pain, 16:04 Respiratory: Positive for shortness of breath, 16:04 Abdomen/GI: Positive for nausea, Exam: 16:04 Constitutional: This is a well developed, well nourished patient who is awake, alert, ms3 and in no acute distress. Head/Face: Normocephalic, atraumatic. Neck: Trachea midline, no cervical lymphadenopathy. Supple, full range of motion without nuchal rigidity, or vertebral point tenderness. No Meningismus. Chest/axilla: Normal chest wall appearance and motion. Nontender with no deformity. Cardiovascular: Regular rate and rhythm with a normal S1 and S2. No gallops, murmurs, or rubs. Normal PMI, no JVD. No pulse deficits. Respiratory: Lungs have equal breath sounds bilaterally, clear to auscultation and percussion. No rales, rhonchi or wheezes noted. No increased work of breathing, no retractions or nasal flaring. Abdomen/GI: Soft, non-tender, with normal bowel sounds. No distension or tympany. No guarding or rebound. No evidence of tenderness throughout. Skin: Warm, dry with normal turgor. Normal color with no rashes, no lesions, and no evidence of cellulitis. MS/ Extremity: Pulses equal, no cyanosis. Neurovascular intact. Full, normal range of motion. 16:09 ECG was reviewed by the Attending Physician. ms3 Vital Signs: 16:04 BP 142 / 66; Pulse 76; Resp 17; Temp 98.4; Pulse Ox 98% ; Weight 81.65 kg; Height 5 ft. ap3 4 in. ; Pain 10/10; 16:38 BP 138 / 64; Pulse 69; Resp 15; Pulse Ox 96% on R/A; ld1 17:54 BP 153 / 71; Pulse 69; Resp 18; Pulse Ox 97% on R/A; ld1 19:00 BP 129 / 57; Pulse 71; Resp 18; Pulse Ox 98% ; km8 16:04 Body Mass Index 30.90 (81.65 kg, 162.56 cm) ap3 16:04 Pain Scale: Adult ap3 MDM: 16:04 Differential diagnosis: abnormal EKG, acute myocardial infarction, acute pericarditis, ms3 anxiety, pulmonary embolus. 16:09 Patient medically screened. ms3 17:06 HEART Score: History: Moderately Suspicious (1), ECG: Non specific repolarization ms3 disturbance / LBTB / PM (1), Age: > 45 and < 65 years (1), Risk Factors: > or = 3 Risk factors for atherosclerotic disease (2), [Hypercholesterolemia] [Hypertension] [DM] Troponin: < or = 1 x Normal Limit (0), Total Score = 5. The patient was given aspirin in the Emergency Department. Data reviewed: vital signs, nurses notes, lab test result(s), EKG, radiologic studies, and as a result, I will continue to observe the patient. 17:16 Consideration of Admission/Observation Patient was admitted/placed on observation. ms3 Management of patient was discussed with the following: Hospitalist: Dr Adame. I considered the following discharge prescriptions or medication management in the emergency department Medications were administered in the Emergency Department. See MAR. Independent interpretation of the following test(s) in the Emergency Department EKG: See my EKG interpretation above. Counseling: I had a detailed discussion with the patient and/or guardian regarding the historical points, exam findings, and any diagnostic results supporting the discharge/admit diagnosis, lab results, radiology results, the need for further work-up and treatment in the hospital. ED course: Discussed labs, EKG, chest x-ray with patient. Discussed necessity for observation as patient's heart score 5. All questions were answered. Patient remains in stable condition in the emergency department. 02/09 16:01 Order name: Basic Metabolic Panel; Complete Time: 17:04 ms3 02/09 16:01 Order name: CBC with Diff; Complete Time: 17:04 ms3 02/09 16:01 Order name: D-Dimer; Complete Time: 17:04 ms3 02/09 16:01 Order name: LFT's; Complete Time: 17:04 ms3 02/09 16:01 Order name: Magnesium; Complete Time: 17:04 ms3 02/09 16:01 Order name: Troponin HS; Complete Time: 17:04 ms3 02/09 19:06 Order name: Basic Metabolic Panel EDMS 02/09 19:06 Order name: Basic Metabolic Panel; Complete Time: 11:28 EDMS 02/09 19:06 Order name: CBC with Automated Diff EDMS 02/09 19:06 Order name: CBC with Automated Diff; Complete Time: 11:28 EDMS 02/09 19:06 Order name: Troponin High Sensitivity EDMS 02/09 19:06 Order name: Troponin High Sensitivity; Complete Time: 11:28 EDMS 02/09 19:06 Order name: Troponin High Sensitivity; Complete Time: 11:28 EDMS 02/09 19:07 Order name: Thyroid Stimulating Hormone; Complete Time: 11:28 EDMS 02/10 00:40 Order name: Glucose, Ancillary Testing; Complete Time: 11:28 EDMS 02/10 09:32 Order name: Glucose, Ancillary Testing; Complete Time: 11:28 EDMS 02/10 12:09 Order name: Glucose, Ancillary Testing EDMS 02/09 16:01 Order name: XRAY Chest (1 view); Complete Time: 17:14 ms3 02/09 16:01 Order name: EKG; Complete Time: 16:01 ms3 02/09 19:06 Order name: EKG Electrocardiogram EDMS 02/09 19:06 Order name: EKG Electrocardiogram EDMS 02/09 19:06 Order name: EKG Electrocardiogram EDMS 02/09 19:06 Order name: EKG Electrocardiogram EDMS 02/09 16:01 Order name: Cardiac monitoring; Complete Time: 16:38 ms3 02/09 16:01 Order name: EKG - Nurse/Tech; Complete Time: 16:11 ms3 02/09 16:01 Order name: IV Saline Lock; Complete Time: 16:38 ms3 02/09 16:01 Order name: Labs collected and sent; Complete Time: 16:38 ms3 02/09 16:01 Order name: O2 Per Protocol; Complete Time: 16:13 ms3 02/09 16:01 Order name: O2 Sat Monitoring; Complete Time: 16:13 ms3 EC:09 Rate is 77 beats/min. Rhythm is regular. QRS [place] is Normal. NH interval is normal. QRS ms3 interval is normal. Clinical impression: NSR w/ Non-specific ST/T Changes. Interpreted by me. Reviewed by me. Administered Medications: 16:40 Drug: Aspirin PO Chewable Tablet 324 mg PO once; 81 mg tablets x 4 Route: PO; ld1 Disposition Summary: 02/10/24 17:15 Hospitalization Ordered Notes: Hospitalization Status: Observation ms3 Provider: Jolly Adame ms3 Condition: Stable ms3 Problem: new ms3 Symptoms: are unchanged ms3 Bed/Room Type: Standard ms3 Location: Telemetry/MedSurg (observation)(02/11/24 12:50) bc6 Room Assignment: [facility](02/11/24 12:50) 6 Diagnosis - Chest pain, unspecified ms3 - Anemia, unspecified ms3 Forms: - Medication Reconciliation Form ms3 - SBAR form ms3 - Leadership Thank You Letter ms3 Signatures: Dispatcher [employer] EDND Jesenia Kunz Amanda, RN RN ap3 Isael Grier DO DO ms3 Lakeshia Grier RN RN ld1 Halima Hector 6 Corrections: (The following items were deleted from the chart) 16:01 16:01 BASIC METABOLIC PANEL+C.LAB.BRZ ordered. EDMS EDMS 16:01 16:01 CBC+H.LAB.BRZ ordered. EDMS EDMS 16:01 16:01 D-DIMER+COAG.LAB.BRZ ordered. EDMS EDMS 16:01 16:01 HEPATIC FUNCTION+C.LAB.BRZ ordered. EDMS EDMS 16:01 16:01 MAGNESIUM+C.LAB.BRZ ordered. EDMS EDMS 16:01 16:01 Troponin High Sensitivity+C.LAB.BRZ ordered. EDMS EDMS 19:04 17:15 Telemetry/MedSurg (observation) ms3 bd 19:04 17:15 ms3 bd 02/10 12:50 02/09 19:04 [facility] ER HOLD bd 6 02/10 12:50 02/09 19:04 ERHOLD- bd bc6
[2024-02-10] MEDS ORDERED: ACETAMINOPHEN 500 MG TAB PO PRN (18:57)
[2024-02-10] MEDS ORDERED: SODIUM CHLORIDE 0.9% 10ML INJ IV PRN (18:57)
--- NOTE | 2024-02-10 18:57 | P.HP ---
Certification for Inpatient Patient admitted to: Observation With expected LOS: <2 Midnights Patient will require the following post-hospital care: None Practitioner: I am a practitioner with admitting privileges, knowledge of patient current condition, hospital course, and medical plan of care. Services: Services provided to patient in accordance with Admission requirements found in Title 42 Section 412.3 of the Code of Federal Regulations <Ashley Hale - Last Filed: 02/10/24 20:15> Patient History Date of Service: 02/10/24 Reason for admission: CP History of Present Illness: Ms. Ruvalcaba is a 58-year-old female with a past medical history of asthma, hypothyroidism, diabetes, gout, hypertension, hyperlipidemia, chronic pain, and distant tobacco abuse. She states she has had intermittent chest pain over the last week. She states the pain is 10 out of 10 lasting about 15 minutes with associated nausea and shortness of breath. She does admit to cough. Echo (09/04/2022) with an EF of 75%, mild TR and GA and MR, with normal wall motion. Labs, EKG, and imaging from the emergency department are unremarkable with a negative troponin; however her heart score is a 5 and we will admit her for observation and serial troponins. Home medications list reviewed: Yes - Past Medical/Surgical History Diabetic: Yes -: Asthma -: Hypothyroidism -: Diabetes mellitus type 2 insulin dependent -: Gout -: HTN -: Hyperlipidemia -: Chronic pain -: Former tobacco use -: Hysterectomy -: Appendectomy -: -: Cholecystectomy -: Cardiac cath with stents -: right ankle sx -: dale knee surgery -: dale knee surgery Psychosocial/ Personal History: Patient is . She lives at home. - Family History Father -: GI disease, Cancer Mother -: Heart disease, Hypertension, Diabetes Sister -: Heart disease, Hypertension, Cancer, Seizures - Social History Smoking Status: Former smoker Alcohol use: No CD- Drugs: No Caffeine use: Yes Place of Residence: Home <Ashley Hale - Last Filed: 02/10/24 20:15> Date of Service: 02/10/24 <Jolly Adame C - Last Filed: 02/10/24 22:21> Allergies No Known Drug Allergies Allergy (Verified 10/08/23 14:19) Unknown Home Medications: methocarbamoL [Methocarbamol] 1 tab PO BID 10/11/19 Amitriptyline [Elavil*] 1 tab PO DAILY 09/03/22 Aspirin 1 tab PO DAILY 09/03/22 Duloxetine [Cymbalta *] 1 tab PO DAILY 09/03/22 Furosemide 20 mg PO DAILY 09/03/22 Levothyroxine Sodium [Euthyrox] 1 tab PO DAILY 09/03/22 Metformin HCl 1 tab PO BIDWM 09/03/22 Mirabegron [Myrbetriq] 1 tab PO DAILY 09/03/22 Semaglutide [Rybelsus] 1 tab PO DAILY 09/03/22 Atorvastatin Calcium [Lipitor] 40 mg PO BEDTIME #30 tab 09/04/22 Azelastine [Astelin 137MCG/Metered [place]] 1 spray NS BID 09/17/23 Cetirizine HCl [All Day Allergy Relief] 10 mg PO DAILY 09/17/23 Esomeprazole Magnesium 40 mg PO DAILY 09/17/23 Gabapentin 300 mg PO TID 09/17/23 Hydrocodone 10/APAP 325 [[place] 10/325*] 1 tab PO TID 09/17/23 Insulin Degludec [Tresiba Flextouch U-100] 85 unit SQ DAILY 09/17/23 Losartan Potassium [Cozaar] 50 mg PO DAILY 09/17/23 Montelukast [Singulair] 10 mg PO DAILY 09/17/23 Plecanatide [Trulance] 3 mg PO DAILY 09/17/23 Semaglutide [Ozempic] 2 mg SQ EVERY 7TH DAY 09/17/23 Fluticasone Propionate [Xhance] 1 spray IH BID PRN 10/08/23 Fluticasone [Flonase 50MCG Nasal [place]*] 1 spray IH DAILY 10/08/23 Review of Systems 10-point ROS is otherwise unremarkable Respiratory: Cough, Shortness of Breath Cardiovascular: Chest Pain Gastrointestinal: Nausea <Hale,Ashley Declan - Last Filed: 02/10/24 20:15> Physical Examination - Physical Exam General: Alert, In no apparent distress, Oriented x3 HEENT: Atraumatic, Normocephalic Neck: Supple Respiratory: Normal air movement Cardiovascular: Normal pulses, Regular rate/rhythm Capillary refill: <2 Seconds Gastrointestinal: Soft and benign Musculoskeletal: No clubbing, No swelling Integumentary: No rashes Neurological: Normal speech, Normal tone, Normal affect Lymphatics: No axilla or inguinal lymphadenopathy External genitalia: Deferred Rectal: Deferred - Studies Laboratory Data (last 24 hrs) 02/10/24 02/10/24 16:32 16:32 WBC 8.50 Hgb 11.2 L Hct 33.6 L Plt Count 319 Sodium 137 Potassium 4.1 BUN 8 Creatinine 0.72 Glucose 149 H Magnesium 1.6 Total Bilirubin 0.2 AST 20 ALT 26 Alkaline Phosphatase 76 <Ashley Hale - Last Filed: 02/10/24 20:15> - Studies Laboratory Data (last 24 hrs) 02/10/24 02/10/24 16:32 16:32 WBC 8.50 Hgb 11.2 L Hct 33.6 L Plt Count 319 Sodium 137 Potassium 4.1 BUN 8 Creatinine 0.72 Glucose 149 H Magnesium 1.6 Total Bilirubin 0.2 AST 20 ALT 26 Alkaline Phosphatase 76 <Jolly Adame - Last Filed: 02/10/24 22:21> Assessment and Plan - Plan Angina Subjective: Patient admitted with chest pain. Pain is 10 /10. Patient states nausea, shortness of breath when pain present Heart Score 5 Plan: Serial troponins and EKG Antiplatelet therapy anticoagulation statin O2 as needed IV morphine prn pain control HTN Losartan 50mg po daily Atorvastatin 40mg po q hs DM monitor and trend FSBS with SSI Asthma Nebs Hypothyroidism Levothyroxine VRE lovenox GI Protonix - Advance Directives Does patient have a Living Will: No Does patient have a Durable POA for Healthcare: No <Ashley Hale - Last Filed: 02/10/24 20:15> - Plan Pt seen and examined. I agree with the note by the SENIOR COST ESTIMATOR. Pt is a 58yo female with past medical history of asthma, hypothyroidism, diabetes, gout, hypertension, hyperlipidemia, chronic pain, and distant tobacco abuse who presents with chest pain. the chest pain started for more than 1 week ago and progressively worsened. The chest pain is associated with nausea and SOB. On admission, lab studies are unremarkable. EKG is unremarkable. At bedside, pt is in NAD. A/P: Chest pain: Will r/o ACS. Will trend troponin Q6h and continue SHAHBAZ therapy. Will keep pt NPO after midnight for NM stress test. Will continue home meds for other chronic medical problems. <Jolly Adame - Last Filed: 02/10/24 22:21>
[2024-02-10] MEDS: HYDROCODONE/APAP 5/325 MG TAB PO PRN (19:48)
[2024-02-10] MEDS ORDERED: ALBUTEROL 2.5 MG/3 ML NEB SOL ONE (20:38)
[2024-02-10] MEDS ORDERED: IPRATROPIUM BROM 0.5MG/2.5ML ONE (20:38)
[2024-02-10] MEDS: IPRATROPIUM BROM 0.5MG/2.5ML NEB SCH (20:42)
[2024-02-10] MEDS: ALBUTEROL 2.5 MG/3 ML NEB SOL NEB SCH (20:42)
[2024-02-10] MEDS: ATORVASTATIN 40 MG TAB PO SCH (21:00)
[2024-02-10] MEDS: INSULIN REGULAR (HUMAN) 100 UNIT/ML SQ SCH (21:00)
[2024-02-10] MEDS: MORPHINE 2 MG/ML SYR IV ONE (21:21)
[2024-02-10] MEDS ORDERED: MORPHINE 2 MG/ML SYR ONE (21:26)
[2024-02-10] MEDS ORDERED: ATORVASTATIN 40 MG TAB ONE (21:26)
[2024-02-10] MEDS: MORPHINE 2 MG/ML SYR IV PRN (21:31)
[2024-02-10 21:57] VITALS: BMI 30.9
[2024-02-10] MEDS ORDERED: INSULIN REGULAR (HUMAN) 100 UNIT/ML ONE (23:01)
[2024-02-11] MEDS ORDERED: ALBUTEROL 2.5 MG/3 ML NEB SOL ONE ×2 (01:23→08:06)
[2024-02-11] MEDS ORDERED: IPRATROPIUM BROM 0.5MG/2.5ML ONE ×2 (01:23→08:06)
[2024-02-11] MEDS ORDERED: HYDROCODONE/APAP 5/325 MG TAB ONE (01:36)
[2024-02-11] MEDS ORDERED: MORPHINE 2 MG/ML SYR ONE ×2 (05:24→12:16)
[2024-02-11 05:31] LABS: Absolute Basophils 0.1 K/uL (0-0.5); Absolute Eosinophils 0.3 K/uL (0-0.5); Absolute Lymphocytes (CBC) 2.5 K/uL (0.7-4.9); Absolute Monocytes 0.6 K/uL (0.1-1.3); Absolute Neutrophil 4.3 K/uL (1.8-8.0); Basophils % 0.8 % (0-1.3); Eosinophils % 3.5 % (0-4.4); Hematocrit 31.7 % (36.0-45.0); Hemoglobin 10.9 g/dL (12.0-15.0); Lymphocytes % 32.4 % (15.3-44.8); MCH 30.3 pg (27.0-35.0); MCHC 34.2 g/dL (32.0-36.0); MCV 88.5 fL (80-100); MPV 7.6 fL (7.6-11.3); Monocytes % 7.6 % (3.3-12.3); Neutrophils % 55.7 % (41.7-73.7); Platelets 286 thou/uL (152-406); RBC Red Blood Cell Count 3.58 M/uL (3.86-4.86); Red Cell Distribution Width 14.4 % (12.1-15.2)
[2024-02-11 05:49] LABS: Anion Gap 8.9 mEq/L (5.0-15.0); Potassium 3.9 mEq/L (3.5-5.1); Troponin High Sensitivity 4.1 pg/mL (<58.9)
[2024-02-11] MEDS: ASPIRIN EC 81 MG TAB PO SCH (09:00)
[2024-02-11] MEDS: PANTOPRAZOLE 40 MG INJ IVP SCH (09:00)
[2024-02-11] MEDS: LOSARTAN POTASSIUM 50 MG TABLET PO SCH (09:00)
[2024-02-11] MEDS ORDERED: PANTOPRAZOLE 40 MG INJ ONE (09:02)
[2024-02-11] MEDS ORDERED: ASPIRIN EC 81 MG TAB PO ONE (09:03)
[2024-02-11] MEDS: LEVOTHYROXINE SOD 0.05 MG TABLET PO SCH (09:23)
--- NOTE | 2024-02-11 12:38 | P.DS ---
Admission Date: 02/10/24 Discharge Date: 02/11/24 Reason for Admission: CP Procedures: NM stress test Brief History of Present Illness: Ms. Ruvalcaba is a 58-year-old female with a past medical history of asthma, hypothyroidism, diabetes, gout, hypertension, hyperlipidemia, chronic pain, and distant tobacco abuse. She states she has had intermittent chest pain over the last week. She states the pain is 10 out of 10 lasting about 15 minutes with associated nausea and shortness of breath. She does admit to cough. Echo (09/04/2022) with an EF of 75%, mild TR and IN and MR, with normal wall motion. Labs, EKG, and imaging from the emergency department are unremarkable with a negative troponin; however her heart score is a 5 and we will admit her for observation and serial troponins. Hospital Course: Okay to DC IV and DC home Follow-up with primary care provider in 1 to 2 weeks Follow-up with cardiology in 1 to 2-weeks Please call the inpatient unit for any questions or concerns regarding hospital stay Return to the ER for worsening symptoms This Jordon was observed overnight. Troponins trended negative. Nuclear medicine stress test shows no reversible ischemia. No concerning EKG findings. Ejection fraction within normal limits. Will give course of Imdur to allay symptoms. She should follow-up with her PCP and cardiology in 1 to 2 weeks. <Ahsley Hale - Last Filed: 02/11/24 15:37> Admission Date: 02/10/24 Discharge Date: 02/11/24 Hospital Course: Pt seen and examined. I agree with the note by the PRESIDENT AND CEO. NM stress test is unremarkable. Troponin was negative. Ok to discharge pt. <Jolly Adame - Last Filed: 02/11/24 18:02> Disposition: ROUTINE DISCHARGE Discharge Condition: GOOD Vital Signs/Physical Exam: Temp Pulse Resp BP Pulse Ox 97.6 F 71 16 158/64 H 96 02/11/24 12:00 02/11/24 12:00 02/11/24 12:19 02/11/24 12:00 02/11/24 12:19 General: Alert, In no apparent distress, Oriented x3 HEENT: Atraumatic, Normocephalic Neck: Supple Respiratory: Normal air movement Cardiovascular: Normal pulses, Regular rate/rhythm Capillary refill: <2 Seconds Gastrointestinal: Soft and benign Musculoskeletal: No clubbing Integumentary: No breakdown Neurological: Normal speech, Normal tone, Normal affect Lymphatics: No axilla or inguinal lymphadenopathy External genitalia: Deferred Rectal: Deferred Laboratory Data at Discharge: WBC 7.80 thou/uL (4.3-10.9) 02/11/24 05:22 Hgb 10.9 g/dL (12.0-15.0) L 02/11/24 05:22 Hct 31.7 % (36.0-45.0) L 02/11/24 05:22 Plt Count 286 thou/uL (152-406) 02/11/24 05:22 Sodium 136 mEq/L (136-145) 02/11/24 05:22 Potassium 3.9 mEq/L (3.5-5.1) 02/11/24 05:22 BUN 10 mg/dL (7-18) 02/11/24 05:22 Creatinine 0.63 mg/dL (0.55-1.02) 02/11/24 05:22 Glucose 150 mg/dL (74-106) H 02/11/24 05:22 Magnesium 1.6 mg/dL (1.6-2.4) 02/10/24 16:32 Total Bilirubin 0.2 mg/dL (0.2-1.0) 02/10/24 16:32 AST 20 U/L (15-37) 02/10/24 16:32 ALT 26 U/L (13-56) 02/10/24 16:32 Alkaline Phosphatase 76 U/L (45-117) 02/10/24 16:32 <Hale,Ashley Declan - Last Filed: 02/11/24 15:37> Vital Signs/Physical Exam: Temp Pulse Resp BP Pulse Ox 97.6 F 73 16 161/57 H 98 02/11/24 17:49 02/11/24 17:49 02/11/24 17:49 02/11/24 17:49 02/11/24 17:49 Laboratory Data at Discharge: WBC 7.80 thou/uL (4.3-10.9) 02/11/24 05:22 Hgb 10.9 g/dL (12.0-15.0) L 02/11/24 05:22 Hct 31.7 % (36.0-45.0) L 02/11/24 05:22 Plt Count 286 thou/uL (152-406) 02/11/24 05:22 Sodium 136 mEq/L (136-145) 02/11/24 05:22 Potassium 3.9 mEq/L (3.5-5.1) 02/11/24 05:22 BUN 10 mg/dL (7-18) 02/11/24 05:22 Creatinine 0.63 mg/dL (0.55-1.02) 02/11/24 05:22 Glucose 150 mg/dL (74-106) H 02/11/24 05:22 Magnesium 1.6 mg/dL (1.6-2.4) 02/10/24 16:32 Total Bilirubin 0.2 mg/dL (0.2-1.0) 02/10/24 16:32 AST 20 U/L (15-37) 02/10/24 16:32 ALT 26 U/L (13-56) 02/10/24 16:32 Alkaline Phosphatase 76 U/L (45-117) 02/10/24 16:32 <Jolly Adame - Last Filed: 02/11/24 18:02> Diet: AHA Activity: Ad melinda <Geoffrey,Ashley Declan - Last Filed: 02/11/24 15:37> <Jolly Adame - Last Filed: 02/11/24 18:02> Home Medications: methocarbamoL [Methocarbamol] 1 tab PO BID 10/11/19 Amitriptyline [Elavil*] 1 tab PO DAILY 09/03/22 Aspirin 1 tab PO DAILY 09/03/22 Duloxetine [Cymbalta *] 1 tab PO DAILY 09/03/22 Furosemide 20 mg PO DAILY 09/03/22 Levothyroxine Sodium [Euthyrox] 1 tab PO DAILY 09/03/22 Metformin HCl 1 tab PO BIDWM 09/03/22 Mirabegron [Myrbetriq] 1 tab PO DAILY 09/03/22 Semaglutide [Rybelsus] 1 tab PO DAILY 09/03/22 Atorvastatin Calcium [Lipitor] 40 mg PO BEDTIME #30 tab 12/29/22 Azelastine [Astelin 137MCG/Metered [place]*] 1 spray NS BID 09/17/23 Cetirizine HCl [All Day Allergy Relief] 10 mg PO DAILY 09/17/23 Esomeprazole Magnesium 40 mg PO DAILY 09/17/23 Gabapentin 300 mg PO TID 09/17/23 Hydrocodone 10/APAP 325 [[place] 10/325*] 1 tab PO TID 09/17/23 Insulin Degludec [Tresiba Flextouch U-100] 85 unit SQ DAILY 09/17/23 Losartan Potassium [Cozaar*] 50 mg PO DAILY 09/17/23 Montelukast [Singulair*] 10 mg PO DAILY 09/17/23 Plecanatide [Trulance] 3 mg PO DAILY 09/17/23 Semaglutide [Ozempic] 2 mg SQ EVERY 7TH DAY 09/17/23 Fluticasone Propionate [Xhance] 1 spray IH BID PRN 10/08/23 Fluticasone [Flonase 50MCG Nasal [place]*] 1 spray IH DAILY 10/08/23 Isosorbide Mononitrate [Isosorbide Mononitrate ER] 30 mg PO DAILY #30 tab 02/11/24 New Medications: Isosorbide Mononitrate [Isosorbide Mononitrate ER] 30 mg PO DAILY #30 tab Physician Discharge Instructions: Ms. Ruvalcaba was observed overnight. Troponins trended negative. Nuclear medicine stress test shows no reversible ischemia. No concerning EKG findings. Ejection fraction within normal limits. Will give course of Imdur to allay symptoms. She should follow-up with her PCP and cardiology in 1 to 2 weeks. Okay to DC IV and DC home Follow-up with primary care provider in 1 to 2 weeks Follow-up with cardiology in 1 to 2-weeks Please call the inpatient unit for any questions or concerns regarding hospital stay Return to the ER for worsening symptoms Followup: Naseem Sanchez MD [Primary Care Provider] -
[2024-02-11] MEDS ORDERED: REGADENOSON 0.4 MG/5 ML SYR IV ONE (13:32)
[2024-02-11 14:17] VITALS: O2SAT 98
--- NOTE | 2024-02-11 14:51 | RAD REPORT ---
EXAM DESCRIPTION: NM - Rest Stress Cardiac Imaging - 02/11/2024 1:59 pm CLINICAL HISTORY: chest pain COMPARISON: Rest Stress Cardiac Imaging dated 06/08/2017 TECHNIQUE: The patient was administered approximately 10.7 mCi of Tc 99m Sestamibi prior to resting SPECT imaging of the heart. The patient was then administered approximately 32.8 mCi of Tc 99m Sestam ibi following exercise or pharmacologic stress. Multiplanar SPECT images were reviewed. FINDINGS: No stress induced ischemic defect is seen to suggest stress induced ischemia. Stable moder ate fixed defect involving the apical to mid anterior wall segments, suggestive of remote ischemia. The end diastolic volume is 63 ml, the end systolic volume is 18 ml, and the ejection fraction is 72 %. IMPRESSION: No evidence of stress induced ischemia. Stable fixed defect of the apical to mid anterior wall, suggesting sequelae of remote ischemia. Normal left ventricular ejection fraction. Reduced end systolic volume may relate to longstanding hyp ertension, please correlate clinically.
[2024-02-11] MEDS: ENOXAPARIN 40 MG/0.4 ML SQ SCH (16:40)
[2024-02-11 18:06] VITALS: BP 161/57; TEMP 97.6
--- NOTE | 2024-02-12 06:56 | TREADPHA ---
DX: CHEST PAIN Date of Study: 02/11/2024 Ht: 5' 4 " Wt: 180 lb 0 oz Consulting Physician: TOMYM MEDICATIONS: TYLENOL, NORCO, PROVENTIL, ASPIRIN, LIPITOR, LOVENOX, NOVOLIN R, ATROVENT, SYNTHROID, COZAAR, MORPHINE, PROTONIX HISTORY: 58 YEAR OLD FEMALE WITH COMPLIANTS OF CHEST PAIN. PHYSICIAL EXAMINATION: RESTING B.P.: 155/73 RESTING H.R.: 70 RESTING EKG: NORMAL SINUS RHYTHM PROTOCOL: PHARMACOLOGIC EXERCISE TIME: 3:30 B.P. AT PEAK STRESS: 167/48 IMPRESSION: LEXISCAN INJECTED. CARDIOLITE INJECTED (SEE NUCLEAR MEDICINE REPORT). NO VENTRICULAR TACHYCARDIA/ SUPRAVENTRICULAR TACHYCARDIA. NO ARRHYTHMIA. COMPLAINTS OF CHEST PAIN AND SHORTNESS OF BREATH. NO ELECTROCARDIOGRAM CHANGES WITH LEXISCAN.
--- NOTE | 2024-02-13 11:51 | EKG ---
Test Date: 2024-02-10 Test Time: 16:03:31 Freight Adjuster: ALP MEASUREMENT RESULTS: Intervals: Rate: 77 ND: 136 QRSD: 72 QT: 400 QTc: 452 [place]: P: 72 ND: 136 QRS: 36 T: 59 INTERPRETIVE STATEMENTS: Normal sinus rhythm Low voltage QRS Septal infarct, age undetermined Abnormal ECG Compared to ECG 09/17/2023 09:13:00 Low QRS voltage now present Myocardial infarct finding still present Electronically Signed On 02-13-24 11:49:00 CDT by Serg Samuels
== END 2024-02-11 17:59 | disposition home or self-care (01) ==
LOC: ER 15:50 → ERHOLD 19:04 → 2ND 02-11 13:11
PROVIDERS: ADMIT Hospitalist; ATTEND Hospitalist
DX: R07.9 Chest pain, unspecified (principal); J45.909 Unspecified asthma, uncomplicated; E03.9 Hypothyroidism, unspecified; E11.9 Type 2 diabetes mellitus without complications; I10 Essential (primary) hypertension; E78.5 Hyperlipidemia, unspecified; M10.9 Gout, unspecified; G89.29 Other chronic pain; R11.0 Nausea; R05.9 Cough, unspecified; Z87.891 Personal history of nicotine dependence
CPT/HCPCS: 93005 ×2; 93017; 85025 ×2; 80048 ×2; 36415; 83735; 82947 ×4; 85379; 80076; 84443; 84484 ×3; 71045; 94640; 78452; 99285; J2785; J7613 ×3; J7644 ×3; C9113; J2270 ×3; A9500; G0378 ×4

== ENCOUNTER 2024-04-10 13:44 | Emergency (ER) | payer OTHER ==
[2024-04-10] MEDS ORDERED: ACETAMINOPHEN 500 MG TAB ONE (14:10)
[2024-04-10] MEDS ORDERED: NA CHLORIDE 0.9% 1,000 ML ONE (14:10)
[2024-04-10 14:18] LABS: Absolute Basophils 0.1 K/uL (0-0.5); Absolute Eosinophils 0.2 K/uL (0-0.5); Absolute Lymphocytes (CBC) 2.7 K/uL (0.7-4.9); Absolute Monocytes 0.7 K/uL (0.1-1.3); Absolute Neutrophil 5.3 K/uL (1.8-8.0); Basophils % 1.1 % (0-1.3); Eosinophils % 1.8 % (0-4.4); Hematocrit 34.5 % (36.0-45.0); Lymphocytes % 29.9 % (15.3-44.8); MCV 90.8 fL (80-100); MPV 8.2 fL (7.6-11.3); Monocytes % 7.6 % (3.3-12.3); Neutrophils % 59.6 % (41.7-73.7); Platelets 293 thou/uL (152-406); RBC Red Blood Cell Count 3.79 M/uL (3.86-4.86); Red Cell Distribution Width 13.4 % (12.1-15.2)
[2024-04-10 14:30] LABS: Anion Gap 6.9 mEq/L (5.0-15.0); Potassium 3.9 mEq/L (3.5-5.1); Troponin High Sensitivity 4.8 pg/mL (<58.9)
--- NOTE | 2024-04-10 16:30 | RAD REPORT ---
EXAM DESCRIPTION: RADChest Single View04/10/2024 2:51 pm CLINICAL HISTORY: CP COMPARISON: Chest Single View dated 02/10/2024; Chest Single View dated 12/04/2022; Chest Single View d ated 10/29/2022; Chest Single View dated 09/02/2022 TECHNIQUE: Portable AP view of the chest. FINDINGS: The lungs are clear. No pneumothorax or effusion. The cardiomediastinal contours are unre markable. IMPRESSION: No acute cardiopulmonary process.
--- NOTE | 2024-04-10 16:31 | RAD REPORT ---
EXAM DESCRIPTION: RAD - Knee Left 3 View - 04/10/2024 2:50 pm CLINICAL HISTORY: fall COMPARISON: Knee Left 2 View dated 09/30/2010 TECHNIQUE: Left knee, 3 views. FINDINGS: No fracture, dislocation or periosteal reaction.No joint effusion seen. Total knee arthrop lasty in place. Mild heterotopic ossification adjacent to the medial margin of the tibial component. No soft tissue abnormality. IMPRESSION: No acute osseous abnormalities of the left knee.
--- NOTE | 2024-04-10 16:32 | RAD REPORT ---
EXAM DESCRIPTION: RAD - Knee Right 3 View - 04/10/2024 2:52 pm CLINICAL HISTORY: fall COMPARISON: Knee Right 3 View dated 02/26/2016; Knee Right 3 View dated 12/06/2015 TECHNIQUE: Right knee, 3 views. FINDINGS: No fracture, dislocation or periosteal reaction.No joint effusion seen. Total knee arthrop lasty hardware in place, in satisfactory alignment with some heterotopic opacification along the post erior margin of the revised tibial component. No other soft tissue abnormalities. IMPRESSION: No acute osseus abnormality of the right knee.
[2024-04-10] MEDS ORDERED: methocarbamoL 500 MG TAB ONE ×2 (16:33→16:34)
--- NOTE | 2024-04-10 16:36 | ER ---
Nurse's Notes [facility] Name: Charlotte Ruvalcaba Age: 58 yrs Sex: Female : 1965 Arrival Date: 04/10/2024 Time: 13:44 Bed 4 Private MD: Diagnosis: Pain in left knee;Pain in right knee;Syncope Near Presentation: 04/10 13:52 Chief complaint: EMS states: Dizziness for past 5 months, syncopal episode this rs5 afternoon while ambulating around the yard, positive LOC witnessed by neighbor. Pt complains of pain to knees bilat and lower back from fall. Coronavirus screen: At this time, the client does not indicate any symptoms associated with coronavirus-19. Ebola Screen: No symptoms or risks identified at this time. Initial Sepsis Screen: Does the patient meet any 2 criteria? Yes Does the patient have a suspected source of infection? No. Patient's initial sepsis screen is negative. Risk Assessment: Do you want to hurt yourself or someone else? Patient reports no desire to harm self or others. Onset of symptoms was April 10, 2024. 13:52 Method Of Arrival: EMS: [facility] rs5 13:52 Acuity: RASHAD 3 rs5 Historical: - Allergies: 13:54 NKDA; rs5 - PMHx: 13:54 Anxiety; CAD; COPD; Diabetes - IDDM; Gout; Hypertension; Asthma; Hypothyroidism; rs5 - PSHx: 13:54 bladder sling; Appendectomy; back sx; Coronary Stent; gastric sleeve; Cholecystectomy; rs5 hysterectomy; knee replacement; - Immunization history:: Adult Immunizations up to date. - Infectious Disease History:: Denies. - Social history:: Smoking status: . Screenin:17 [facility] ED Fall Risk Assessment (Adult) History of falling in the last 3 months, db including since admission No falls in past 3 months (0 pts) Confusion or Disorientation No (0 pts) Intoxicated or Sedated No (0 pts) Impaired Gait No (0 pts) Mobility Assist Device Used No (0 pt) Altered Elimination No (0 pt) Score/Fall Risk Level 0 - 2 = Low Risk Oriented to surroundings, Maintained a safe environment. Abuse screen: Denies threats or abuse. Has been threatened or abused. Nutritional screening: No deficits noted. Tuberculosis screening: No symptoms or risk factors identified. Assessment: 14:17 Reassessment: Patient appears in no apparent distress at this time. Patient and/or db family updated on plan of care and expected duration. Pain level reassessed. Patient is alert, oriented x 3, equal unlabored respirations, skin warm/dry/pink. General: Appears in no apparent distress. comfortable, Behavior is calm, cooperative. Pain: Complains of pain in right leg and left leg. Neuro: Level of Consciousness is awake, alert, obeys commands, Oriented to person, place, time, situation. Respiratory: Airway is patent Respiratory effort is even, unlabored, Respiratory pattern is regular, symmetrical. 16:42 Reassessment: Patient appears in no apparent distress at this time. Patient and/or db family updated on plan of care and expected duration. Pain level reassessed. Patient is alert, oriented x 3, equal unlabored respirations, skin warm/dry/pink. Patient states feeling better. Patient states symptoms have improved. Vital Signs: 13:52 BP 119 / 58; Pulse 70; Resp 17; Pulse Ox 98% on R/A; rs5 14:01 BP 124 / 59; Pulse 72; Resp 16; Pulse Ox 97% on R/A; db 15:00 BP 128 / 61; Pulse 73; Resp 16; Pulse Ox 99% on R/A; db 16:00 BP 148 / 70; Pulse 77; Resp 16; Pulse Ox 99% on R/A; db ED Course: 13:50 Patient arrived in ED. ec2 13:50 Panda العراقي MD is Attending Physician. ec2 13:54 Triage completed. rs5 14:03 Desirae Duran, RN is Primary Nurse. db 14:04 Arm band placed on Patient placed in an exam room. db 14:15 Maintain EMS IV. Dressing intact. Good blood return noted. Site clean \T\ dry. Gauge \T\ db site: 20 G LEFT HAND. 14:16 Initial lab(s) drawn, by me, sent to lab. EKG done, by food science technician. reviewed by Panda العراقي MD. 14:52 Chest Single View In Process Unspecified. EDMS 14:52 Knee Left 3 View In Process Unspecified. EDMS 14:52 Knee Right 3 View In Process Unspecified. EDMS 15:00 No provider procedures requiring assistance completed. IV discontinued, intact, db bleeding controlled, No redness/swelling at site. 15:17 Patient has correct armband on for positive identification. Bed in low position. Call db light in reach. Side rails up X 1. Provided Education on: LABS. Client placed on continuous cardiac and pulse oximetry monitoring. NIBP monitoring applied. traffic monitor specialist on. Pulse ox on. NIBP on. Warm blanket given. Pillow given. 16:30 Verbal reassurance given. oh1 Administered Medications: 14:16 Drug: Acetaminophen PO 1000 mg PO once Route: PO; db 16:45 Follow up: Response: No adverse reaction db 14:16 Drug: NS 0.9% IV 1000 ml IV at 1 bolus Per protocol; 1000 mL bolus Route: IV; Rate: 1 db bolus; Site: left hand; 16:45 Follow up: Response: No adverse reaction; IV Status: Completed infusion; IV Intake: db 1000ml 16:34 Drug: Methocarbamol PO 500 mg PO once Route: PO; db 16:45 Follow up: Response: No adverse reaction db Medication: 15:00 VIS not applicable for this client. db Intake: 16:45 IV: 1000ml; Total: 1000ml. db Outcome: 15:00 Discharged to home ambulatory, db 15:00 Condition: stable 15:00 Discharge instructions given to patient, Instructed on discharge instructions, follow up and referral plans. Prescriptions given X 1, 16:35 Discharge ordered by . david 16:45 Patient left the ED. db Signatures: Dispatcher [employer] Desirae Nieves RN ALOK db Demetrio Trevino RN RN rs5 Panda العراقي MD MD ec2 Hinojosa, Olivia oh1
--- NOTE | 2024-04-10 16:36 | EDPHYS ---
Physician Documentation [facility] Name: Charlotte Ruvalcaba Age: 58 yrs Sex: Female : 1965 Arrival Date: 04/10/2024 Time: 13:44 Bed 4 Private MD: ED Physician Panda العراقي HPI: 04/10 13:57 This 58 yrs old Black Female presents to ER via EMS with complaints of Syncope. ec2 13:57 Patient arrives today for evaluation of a syncopal episode. Patient states that she ec2 felt lightheaded and subsequently fell to her knees. Complaining of bilateral knee pain. Reports some chronic chest pain as well. Reports that she been having these episodes ongoing for months. Denies any difficulty breathing. Patient reports no vomiting or diarrhea. Patient reports otherwise she has been in normal state of health. States that she follows Dr. Silveira cardiology and plan to see him for her chronic chest pain.. Historical: - Allergies: 13:54 NKDA; rs5 - PMHx: 13:54 Anxiety; CAD; COPD; Diabetes - IDDM; Gout; Hypertension; Asthma; Hypothyroidism; rs5 - PSHx: 13:54 bladder sling; Appendectomy; back sx; Coronary Stent; gastric sleeve; Cholecystectomy; rs5 hysterectomy; knee replacement; - Immunization history:: Adult Immunizations up to date. - Infectious Disease History:: Denies. - Social history:: Smoking status: . ROS: 13:57 Constitutional: as per hpi ec2 Exam: 13:57 Constitutional: GEN: NAD Head: atraumatic Eyes: EOMI Ears: External ears are ec2 normal. CV: regular rate LUNGS: no respiratory distress ABD: non-distended SKIN: no evidence of rashes MSK: no evidence of trauma, bilateral knee TTP, good range of motion. NEURO: moves all extremities equally Vital Signs: 13:52 BP 119 / 58; Pulse 70; Resp 17; Pulse Ox 98% on R/A; rs5 14:01 BP 124 / 59; Pulse 72; Resp 16; Pulse Ox 97% on R/A; db 15:00 BP 128 / 61; Pulse 73; Resp 16; Pulse Ox 99% on R/A; db 16:00 BP 148 / 70; Pulse 77; Resp 16; Pulse Ox 99% on R/A; db MDM: 13:50 Patient medically screened. ec2 13:57 Data reviewed: vital signs, nurses notes. ED course: Patient arrives today for ec2 evaluation of a syncopal episode and pain to bilateral knees. Examination remarkable for knee TTP otherwise reassuring. Will obtain lab work, radiographs. Differential includes arrhythmia, anemia, electrolyte disturbances, knee injury.. 14:16 ED course: EKG independently reviewed and interpreted by me, shows normal sinus rhythm, ec2 rate of 72, no acute ST segment elevations, intervals are nonconcerning.. 14:46 ED course: Metabolic profile shows appropriate electrolytes and renal function, CBC ec2 shows slight anemia, troponin is within normal ranges. Pending radiographs. . 16:34 ED course: Left knee x-ray and right knee x-ray independently reviewed and interpreted ec2 by me, shows no traumatic process. Patient given Robaxin for pain. Will discharge home have the patient follow-up expectantly with primary care. . 08/04 14:12 Order name: Basic Metabolic Panel; Complete Time: 14:46 EDMS / 14:12 Order name: Troponin High Sensitivity; Complete Time: 14:46 EDMS 04 14:12 Order name: CBC with Automated Diff; Complete Time: 14:46 EDMS /04 13:58 Order name: Chest Single View; Complete Time: 16:31 EDMS 08/04 13:58 Order name: Knee Left 3 View; Complete Time: 16:34 EDMS 08/04 13:58 Order name: Knee Right 3 View; Complete Time: 16:34 EDMS /04 13:54 Order name: Cardiac monitoring; Complete Time: 14:16 ec2 04/10 13:54 Order name: EKG - Nurse/Tech; Complete Time: 14:16 ec2 04/10 13:54 Order name: IV Saline Lock; Complete Time: 14:16 ec2 04 13:54 Order name: Labs collected and sent; Complete Time: 14:16 ec2 04/10 13:54 Order name: O2 Per Protocol; Complete Time: 14:16 ec2 04 13:54 Order name: O2 Sat Monitoring; Complete Time: 14:16 ec2 Administered Medications: 14:16 Drug: Acetaminophen PO 1000 mg PO once Route: PO; db 16:45 Follow up: Response: No adverse reaction db 14:16 Drug: NS 0.9% IV 1000 ml IV at 1 bolus Per protocol; 1000 mL bolus Route: IV; Rate: 1 db bolus; Site: left hand; 16:45 Follow up: Response: No adverse reaction; IV Status: Completed infusion; IV Intake: db 1000ml 16:34 Drug: Methocarbamol PO 500 mg PO once Route: PO; db 16:45 Follow up: Response: No adverse reaction db Disposition Summary: 04/10/24 16:35 Discharge Ordered Notes: Location: Home ec2 Condition: Stable ec2 Diagnosis - Pain in left knee ec2 - Pain in right knee ec2 - Syncope Near ec2 Followup: ec2 - With: Private Physician - When: - Reason: Re-evaluation by your physician Discharge Instructions: - Discharge Summary Sheet ec2 - Acute Knee Pain, Adult ec2 Forms: - Medication Reconciliation Form ec2 - Antibiotic Education ec2 - Prescription Opioid Use ec2 - Patient Portal Instructions ec2 - Leadership Thank You Letter ec2 Prescriptions: - methocarbamol 500 mg Oral tablet - take 1 tablet ORAL route 4 times per day; 15 tablet; Refills: 0, Product ec2 Selection Permitted Signatures: Dispatcher [employer] Desirae Nieves, RN RN db Demetrio Trevino, RN RN rs5 Panda العراقي MD MD ec2 Corrections: (The following items were deleted from the chart) 15:53 15:53 Chest Single View+RAD.RAD.BRZ ordered. EDMS EDMS 15:53 15:53 Knee Left 3 View+RAD.RAD.BRZ ordered. EDMS EDMS 15:53 15:53 Knee Right 3 View+RAD.RAD.BRZ ordered. EDMS EDMS 16:19 15:53 CBC+H.LAB.BRZ ordered. EDMS EDMS
[2024-04-10 20:26] VITALS: O2SAT 99
[2024-04-10 20:27] VITALS: BP 148/70
--- NOTE | 2024-04-11 16:59 | EKG ---
Test Date: 2024-04-10 Test Time: 14:12:30 Caponizer: EDIS MEASUREMENT RESULTS: Intervals: Rate: 72 AK: 134 QRSD: 74 QT: 416 QTc: 455 [place]: P: 71 AK: 134 QRS: 41 T: 43 INTERPRETIVE STATEMENTS: Normal sinus rhythm Normal ECG Compared to ECG 02/10/2024 16:03:31 Myocardial infarct finding no longer present Electronically Signed On 04-11-24 16:57:02 CDT by Arron Baker
== END 2024-04-10 16:45 | disposition home or self-care (01) ==
LOC: ER 13:44
DX: M25.562 Pain in left knee (principal); M25.561 Pain in right knee; R55 Syncope and collapse
CPT/HCPCS: 93005; 85025; 80048; 36415; 84484; 71045; 73562 ×2; J7030; 96360; 96361; 99285

== ENCOUNTER 2024-10-22 10:25 | Emergency (ER) | payer OTHER ==
[2024-10-22 10:46] LABS: Absolute Basophils 0.1 K/uL (0-0.5); Absolute Eosinophils 0.1 K/uL (0-0.5); Absolute Lymphocytes (CBC) 1.7 K/uL (0.7-4.9); Absolute Monocytes 0.7 K/uL (0.1-1.3); Basophils % 0.6 % (0-1.3); Eosinophils % 1.4 % (0-4.4); Hematocrit 18.6 % (36.0-45.0); Hemoglobin 6.4 g/dL (12.0-15.0); MCH 29.7 pg (27.0-35.0); MCHC 34.2 g/dL (32.0-36.0); MCV 86.9 fL (80-100); MPV 7.1 fL (7.6-11.3); Monocytes % 7.3 % (3.3-12.3); Neutrophils % 72.7 % (41.7-73.7); Nucleated Red Blood Cells % 0.1 % (0-0); Platelets 439 thou/uL (152-406); RBC Red Blood Cell Count 2.14 M/uL (3.86-4.86)
[2024-10-22 11:02] LABS: Anion Gap 8.2 mEq/L (5.0-15.0); Potassium 4.2 mEq/L (3.5-5.1); Troponin High Sensitivity 4.7 pg/mL (<58.9)
--- NOTE | 2024-10-22 11:11 | RAD REPORT ---
EXAMINATION: ONE VIEW CHEST XR CLINICAL INDICATION: COUGH TECHNIQUE: Frontal chest projection is submitted. Examination is limited by patient positioning and t echnique. COMPARISON: 04/10/2024 FINDINGS: Mild fibroemphysematous changes are present throughout the lungs. The heart is upper limit of normal in size. No displaced fractures identified. IMPRESSION: No acute intrathoracic abnormalities.
[2024-10-22 11:38] LABS: PT Prothrombin Time 13.5 SECONDS (9.4-12.5); PTT, Activated Partial Thromb 26.6 SECONDS (24.3-36.9); Protime INR 1.29
--- NOTE | 2024-10-22 11:49 | RAD REPORT ---
EXAMINATION: CT ABDOMEN AND PELVIS WITHOUT CONTRAST CLINICAL INDICATION: GIB TECHNIQUE: CT abdomen and pelvis was performed, without IV contrast, as per department protocol. Axia l, sagittal and coronal reconstructions were obtained. One or more of the following dose reduction techniques were used: Automated exposure control, adjustment of the mA and kV according to the patien t size, and iterative reconstruction. Unless otherwise specified, incidental findings do not require dedicated imaging follow-up. COMPARISON: 10/07/2023 FINDINGS: The lack of intravenous contrast limits the sensitivity of this exam for evaluation of solid visceral organs, vascular structures, and retroperitoneum. LOWER CHEST: Mild groundglass opacities in both posterior lung bases. Small hiatal hernia. LIVER:Normal in size and contour. No focal lesion. Cholecystectomy clips. SPLEEN: Normal size. No focal lesion. PANCREAS: No mass, ductal dilation, or ramesh-pancreatic fluid. ADRENALS: Normal; no mass. KIDNEYS AND URETERS: Normal size and contour. No hydronephrosis. URINARY BLADDER: Prominent bladder distention. GASTROINTESTINAL TRACT: No evidence of bowel obstruction, significant free fluid, free air or abscess . There is quite significant fecal retention seen throughout the colon. APPENDIX: Appendix not visualized, but no inflammatory changes in region of appendix. LYMPH NODES: No lymphadenopathy. MUSCULOSKELETAL: Lumbosacral fusion is noted with hardware in place. IMPRESSION: There is significant constipation present. The bladder is quite distended.
[2024-10-22] MEDS ORDERED: PANTOPRAZOLE 40 MG INJ ONE ×2 (11:50→12:27)
--- NOTE | 2024-10-22 12:03 | ER ---
Nurse's Notes [facility] Name: Charlotte Ruvalcaba Age: 59 yrs Sex: Female : 1965 Arrival Date: 10/22/2024 Time: 10:25 Bed 7 Private MD: Diagnosis: GI Bleed/ Gastrointestinal hemorrhage, unspecified;Anemia, unspecified Presentation: 10/22 10:30 Chief complaint: EMS states: Toned out for low blood pressure by home health worker. hb Right knee replacement on 10/16, taking [place] for pain, c/o not feeling right + photosensitivity x 2-3 days. BP 88/50, BGL 249, 1L NS infusing to 20 LAC. Coronavirus screen: At this time, the client does not indicate any symptoms associated with coronavirus-19. Ebola Screen: No symptoms or risks identified at this time. Initial Sepsis Screen: Does the patient meet any 2 criteria? No. Patient's initial sepsis screen is negative. Does the patient have a suspected source of infection? No. Patient's initial sepsis screen is negative. Risk Assessment: Do you want to hurt yourself or someone else? Patient reports no desire to harm self or others. Onset of symptoms was October 20, 2024. 10:30 Method Of Arrival: EMS: [facility] hb 10:30 Acuity: RASHAD 2 hb Triage Assessment: 10:30 General: Appears in no apparent distress. Behavior is calm, cooperative, appropriate bp for age. Pain: Complains of pain in right knee. EENT: No deficits noted. Neuro: Level of Consciousness is awake, alert, obeys commands, Oriented to Appropriate for age. Cardiovascular: Rhythm is sinus rhythm. Respiratory: No deficits noted. GI: No signs and/or symptoms were reported involving the gastrointestinal system. : No signs and/or symptoms were reported regarding the genitourinary system. Derm: No deficits noted. Musculoskeletal: No deficits noted. Historical: - Allergies: 10:33 NKDA; hb - PMHx: 10:33 Anxiety; Asthma; Diabetes - IDDM; CAD; COPD; Gout; Hypertension; Hypothyroidism; hb - PSHx: 10:33 bladder sling; Appendectomy; back sx; Cholecystectomy; Coronary Stent; gastric sleeve; hb hysterectomy; knee replacement; - Immunization history:: Adult Immunizations up to date. - Infectious Disease History:: Denies. - Social history:: Smoking status: Patient denies any tobacco usage or history of. Screenin:45 [facility] ED Fall Risk Assessment (Adult) History of falling in the last 3 months, bp including since admission No falls in past 3 months (0 pts) Confusion or Disorientation No (0 pts) Intoxicated or Sedated No (0 pts) Impaired Gait Yes (1 pt) Mobility Assist Device Used Yes (1 pt) Altered Elimination No (0 pt) Score/Fall Risk Level 0 - 2 = Low Risk Oriented to surroundings. Abuse screen: Denies threats or abuse. Denies injuries from another. Nutritional screening: No deficits noted. Tuberculosis screening: No symptoms or risk factors identified. Assessment: 10:30 General: Appears in no apparent distress. uncomfortable, Behavior is calm, cooperative, bp appropriate for age. 12:45 Reassessment: TRANSFER IN PROCESS TO [facility]. bp 14:24 Reassessment: EMS AT B/S FOR TRANSPORT. bp Vital Signs: 10:30 BP 114 / 56; Pulse 68; Resp 16; Temp 98.6(O); Pulse Ox 98% on R/A; Weight 81.65 kg; hb Height 5 ft. 4 in. ; Pain 8/10; 11:57 BP 117 / 51; Pulse 80; Resp 11; Pulse Ox 100% ; bp 12:44 BP 125 / 53; Pulse 80; Resp 16; Temp 98.1; Pulse Ox 99% ; bp 13:30 BP 121 / 52; Pulse 77; Resp 16; Temp 98.1; Pulse Ox 95% ; bp 10:30 Body Mass Index 30.90 (81.65 kg, 162.56 cm) hb 10:30 Pain Scale: Adult hb ED Course: 10:27 Patient arrived in ED. ec2 10:27 Panda العراقي MD is Attending Physician. ec2 10:33 Alireza Rajan, ALOK is Primary Nurse. bp 10:33 Triage completed. hb 10:33 Initial lab(s) drawn, by me, sent to lab. EKG done, by ED staff, reviewed by Panda العراقي MD. Maintain EMS IV. Dressing intact. Good blood return noted. Site clean \T\ dry. Gauge \T\ site: 20 RAC. 10:34 Arm band placed on. hb 10:43 XRAY Chest (1 view) In Process Unspecified. EDMS 10:43 No provider procedures requiring assistance completed. ko1 10:43 Patient has correct armband on for positive identification. Bed in low position. Call ko1 light in reach. Side rails up X2. Provided Education on: labs. Client placed on continuous cardiac and pulse oximetry monitoring. NIBP monitoring applied. compliance monitor on. Door closed. Noise minimized. Lights dimmed. Warm blanket given. Pillow given. 11:15 T\T\S collected, blood band applied to patient. em1 11:15 Ptt, Activated Sent. em1 11:15 PT-INR Sent. em1 11:15 Type And Screen Sent. em1 11:43 CT Abd/Pelvis - Without Contrast In Process Unspecified. EDMS 12:26 called [facility] for Transfer talked to sp 12:[address] Bib Garn[place]peted pt 1232 admin approval [place] to [facility] sp unit 10A bed 1002 report number [phone]. fax [phone]. 12:45 Pike cath inserted, using sterile technique, 16 Fr., by nj, balloon inflated, to bp gravity drainage. 12:45 Consent for blood and/or blood product transfusion explained by staff, explained by bp physician, signed by patient. 13:50 called [facility] for transfer talked to Jason. goodson 14:27 Patient transferred, IV remains in place. bp Administered Medications: 10:33 Drug: NS 0.9% IV 1000 ml IV at 1 bolus Per protocol; to be given as a bolus over 60 bp minutes Route: IV; Rate: 1 bolus; Site: left antecubital; 12:48 Follow up: IV Status: Completed infusion bp 11:30 Drug: Pantoprazole IVP 80 mg IVP once Route: IVP; Site: left antecubital; bp 11:56 Follow up: Response: No adverse reaction bp 12:00 Drug: Pantoprazole IV 8 mg/hr IV at 25 ml/hr continuous; (Standard dilution is 80 mg in bp 250 mL NS) Route: IV; Rate: 25 ml/hr; Site: right antecubital; 14:27 Follow up: IV Status: Infusion continued upon transfer bp Outcome: 12:02 ER care complete, transfer ordered by . ec2 14:26 Transferred by ground EMS to [facility], Transfer form bp completed. 14:26 Condition: stable 14:26 Instructed on the need for transfer, 14:27 Patient left the ED. bp Signatures: Dispatcher [employer] EDBella Murphy Eric em1 Birgit Velasco, ALOK RN Alireza Larios RN RN bp Trina Anne RN RN ko1 Panda العراقي MD MD ec2 Corrections: (The following items were deleted from the chart) 11: 11:15 ABO/RH typing drawn and sent. em1 EDMS 11: 11:15 Antibody Screen drawn and sent. em1 EDMS
--- NOTE | 2024-10-22 12:03 | EDPHYS ---
Physician Documentation [facility] Name: Charlotte Ruvalcaba Age: 59 yrs Sex: Female : 1965 Arrival Date: 10/22/2024 Time: 10:25 Bed 7 Private MD: ED Physician Panda العراقي HPI: 10/22 10:28 This 59 yrs old Black Female presents to ER via Unassigned with complaints of ec2 hypotension. 10:28 Patient arrives today for evaluation of low blood pressure. Patient reports that she ec2 recently had a knee replacement on the right knee, has been taking [place] for pain, has been having at home cares and noted to be hypotensive and subsequently EMS was called. Patient reports no chest pain, no difficulty breathing, no abdominal pain, no nausea or vomiting. Denies any diarrheal symptoms. Denies urinary complaints. EMS reports that they initially noted hypotensive blood pressures which responded to crystalloid.. Historical: - Allergies: 10:33 NKDA; hb - PMHx: 10:33 Anxiety; Asthma; Diabetes - IDDM; CAD; COPD; Gout; Hypertension; Hypothyroidism; hb - PSHx: 10:33 bladder sling; Appendectomy; back sx; Cholecystectomy; Coronary Stent; gastric sleeve; hb hysterectomy; knee replacement; - Immunization history:: Adult Immunizations up to date. - Infectious Disease History:: Denies. - Social history:: Smoking status: Patient denies any tobacco usage or history of. ROS: 10:29 Constitutional: as per hpi ec2 Exam: 10:29 Constitutional: GEN: NAD Head: atraumatic Eyes: EOMI Ears: External ears are ec2 normal. CV: regular rate LUNGS: no respiratory distress ABD: non-distended, soft, nontender, guarding, not rigid SKIN: no evidence of rashes, wound to the right knee appears to be healing appropriately otherwise no erythema or warmth noted. MSK: no evidence of trauma Vital Signs: 10:30 BP 114 / 56; Pulse 68; Resp 16; Temp 98.6(O); Pulse Ox 98% on R/A; Weight 81.65 kg; hb Height 5 ft. 4 in. ; Pain 8/10; 11:57 BP 117 / 51; Pulse 80; Resp 11; Pulse Ox 100% ; bp 12:44 BP 125 / 53; Pulse 80; Resp 16; Temp 98.1; Pulse Ox 99% ; bp 13:30 BP 121 / 52; Pulse 77; Resp 16; Temp 98.1; Pulse Ox 95% ; bp 10:30 Body Mass Index 30.90 (81.65 kg, 162.56 cm) hb 10:30 Pain Scale: Adult hb MDM: 10:27 Medical Screening Exam initiated ec2 10:29 Data reviewed: vital signs, nurses notes. ED course: Patient arrives today for ec2 evaluation of low blood pressures. Examination is revealing for nontoxic individual who has appropriate blood pressures on arrival and otherwise a reassuring examination and a reassuring abdominal examination. Will obtain lab work, urine studies, EKG. Differential clues processes such as anemia, electrolyte disturbances, dehydration, medication reaction to the opiates she has been taking.. 10:37 ED course: EKG independently reviewed and interpreted by me, shows normal sinus rhythm, ec2 rate of 79, no acute ST segment elevations, intervals are nonactionable. Poor detection noted on lead II will obtain repeat.. 10:44 ED course: Repeat EKG independently reviewed and interpreted by me, shows normal sinus ec2 rhythm, rate of 79, no acute ST segment elevations, intervals are nonactionable.. 11:07 ED course: Patient noted to be anemic with a hemoglobin of 6.X. I performed a digital ec2 rectal examination performed under my supervision, ALOK Mena, patient with dark-colored stool. Will transfuse the patient a unit of blood, start the patient on Protonix as well. Patient will require transfer to GI capable facility.. 12:03 ED course: Patient will require transfer to GI capable facility, specifically requests ec2 [facility] system since we need to transfer.. 12:28 ED course: I discussed the case with the hospitalist at [facility] who agrees to ec2 accept the patient for transfer.. 10/22 10:27 Order name: Basic Metabolic Panel; Complete Time: 11:56 ec2 10/22 10:27 Order name: CBC with Diff; Complete Time: 10:53 ec2 10/22 10:27 Order name: Troponin HS; Complete Time: 11:56 ec2 10/22 10:53 Order name: Type And Screen ec2 10/22 10:53 Order name: PT-INR; Complete Time: 11:56 ec2 10/22 10:53 Order name: Ptt, Activated; Complete Time: 11:56 ec2 10/22 11:37 Order name: Packed RBC Leukored EDMS 10/22 12:15 Order name: LFT's ec2 10/22 10:27 Order name: XRAY Chest (1 view); Complete Time: 11:56 ec2 10/22 11:07 Order name: CT Abd/Pelvis - Without Contrast; Complete Time: 11:56 ec2 10/22 10:27 Order name: EKG; Complete Time: 10:28 ec2 10/22 10:27 Order name: Cardiac monitoring; Complete Time: 10:33 ec2 10/22 10:27 Order name: EKG - Nurse/Tech; Complete Time: 10:33 ec2 10/22 10:27 Order name: IV Saline Lock; Complete Time: 10:33 ec2 10/22 10:27 Order name: Labs collected and sent; Complete Time: 10:33 ec2 10/22 10:27 Order name: O2 Per Protocol; Complete Time: 10:33 ec2 10/22 10:27 Order name: O2 Sat Monitoring; Complete Time: 10:33 ec2 10/22 10:53 Order name: Consent for Blood Transfusion; Complete Time: 11:54 ec2 10/22 11:57 Order name: Pike; Complete Time: 12:44 ec2 Administered Medications: 10:33 Drug: NS 0.9% IV 1000 ml IV at 1 bolus Per protocol; to be given as a bolus over 60 bp minutes Route: IV; Rate: 1 bolus; Site: left antecubital; 12:48 Follow up: IV Status: Completed infusion bp 11:30 Drug: Pantoprazole IVP 80 mg IVP once Route: IVP; Site: left antecubital; bp 11:56 Follow up: Response: No adverse reaction bp 12:00 Drug: Pantoprazole IV 8 mg/hr IV at 25 ml/hr continuous; (Standard dilution is 80 mg in bp 250 mL NS) Route: IV; Rate: 25 ml/hr; Site: right antecubital; 14:27 Follow up: IV Status: Infusion continued upon transfer bp Disposition Summary: 10/22/24 12:02 Transfer Ordered Notes: Transfer Location: Other Acute Care Facility ec2 Reason: Higher level of care ec2 Condition: Stable ec2 Problem: new ec2 Symptoms: have improved ec2 Accepting Physician: transferring doc(10/22/24 14:27) bp Diagnosis - GI Bleed/ Gastrointestinal hemorrhage, unspecified ec2 - Anemia, unspecified ec2 Forms: - Medication Reconciliation Form ec2 - SBAR form ec2 Critical care time excluding procedures: 11:07 Critical care time: Bedside Care: 30 minutes. Total time: 30 minutes ec2 Signatures: Dispatcher [employer] EDBirgit Paulino RN RN Alireza Rajan RN RN bp Panda العراقي MD MD ec2 Corrections: (The following items were deleted from the chart) 10:44 10:37 ED course: EKG independently reviewed and interpreted by me, shows normal sinus ec2 rhythm, rate of 79, no acute ST segment elevations, intervals are nonactionable.. ec2 11:30 10:54 PACKED RBC LEUKORED+BB.LAB.BRZ ordered. EDMI EDMS 11:30 10:56 ABO/RH typing ordered. EDMI EDMS 11:30 10:56 Antibody Screen ordered. EDMI EDMS 12:03 12:02 transferring doc ec2 ec2 12:05 12:03 ED course: Patient with request transfer to [facility] system. Will attempt transfer to [address] [place] for GI capable facility.. ec2 12:17 12:17 LAB ADD ON+C.LAB.BRZ ordered. EDMI EDMS 14:27 12:03 transferring doc ec2 bp
[2024-10-22] MEDS ORDERED: NA CHLORIDE 0.9% 250 ML ONE (12:27)
[2024-10-22] MEDS ORDERED: NA CHLORIDE 0.9% 100 ML ONE (12:28)
[2024-10-22 12:34] LABS: ALT/SGPT 17 U/L (13-56); AST/SGOT 19 U/L (15-37); Albumin 2.6 g/dL (3.4-5.0); Albumin/Globulin Ratio 0.7 (1.1-1.8); Alkaline Phosphatase 87 U/L (45-117); Bilirubin Total 0.3 mg/dL (0.2-1.0); Globulin 3.6 g/dL (2.3-3.5); Protein, Total 6.2 g/dL (6.4-8.2)
[2024-10-22 12:35] LABS: Bilirubin Direct < 0.2 mg/dL (0-0.2); Bilirubin Indirect, Calculated 0.1 mg/dL (0.2-0.8)
[2024-10-22 14:33] VITALS: TEMP 98.6
[2024-10-22 14:40] VITALS: BP 117/51; O2SAT 100
== END 2024-10-22 14:27 ==
LOC: ER 10:25
PROC: 30233N1 Transfusion of Nonautologous Red Blood Cells into Peripheral Vein, Percutaneous Approach (ICD-10-PCS; principal; 2024-10-22)
DX: D64.9 Anemia, unspecified (principal); Z96.651 Presence of right artificial knee joint
CPT/HCPCS: 96365; 96361; 93005; 85025; 80048; 36415; 86900; 86850; 85610; 86901; 80076; 85730; 86920; 84484; 74176; 71045; 51702; 99285; 96366; 36430; J2470 ×2; P9016; J7050

== ENCOUNTER 2024-11-05 14:21 | Emergency (ER) | payer OTHER ==
[2024-11-05 14:54] LABS: Absolute Basophils 0.1 K/uL (0-0.5); Absolute Eosinophils 0.2 K/uL (0-0.5); Absolute Lymphocytes (CBC) 1.8 K/uL (0.7-4.9); Absolute Monocytes 0.6 K/uL (0.1-1.3); Absolute Neutrophil 4.5 K/uL (1.8-8.0); Basophils % 1.2 % (0-1.3); Eosinophils % 2.5 % (0-4.4); Hematocrit 18.3 % (36.0-45.0); Lymphocytes % 25.4 % (15.3-44.8); MCH 30.7 pg (27.0-35.0); MCHC 32.9 g/dL (32.0-36.0); MCV 93.5 fL (80-100); MPV 7.8 fL (7.6-11.3); Neutrophils % 62.9 % (41.7-73.7); Nucleated Red Blood Cells % 0.4 % (0-0); Platelets 306 thou/uL (152-406); RBC Red Blood Cell Count 1.96 M/uL (3.86-4.86); Red Cell Distribution Width 23.1 % (12.1-15.2)
[2024-11-05 14:55] LABS: Anisocytosis 2+; Blood Morphology Comment NOTED (NOT SEEN); Platelet Estimate ADEQ; White Blood Cell Scan OK (OK)
[2024-11-05 15:17] LABS: ALT/SGPT 17 U/L (13-56); AST/SGOT 15 U/L (15-37); Albumin/Globulin Ratio 0.9 (1.1-1.8); Alkaline Phosphatase 87 U/L (45-117); Anion Gap 11.1 mEq/L (5.0-15.0); BUN Blood Urea Nitrogen 14 mg/dL (7-18); Bicarbonate 24 mEq/L (21-32); Bilirubin Direct < 0.2 mg/dL (0-0.2); Bilirubin Total 0.2 mg/dL (0.2-1.0); Globulin 3.2 g/dL (2.3-3.5); Glomerular Filtration Rate 70 ml/min (=/>90); Glucose Level 252 mg/dL (74-106); Potassium 4.1 mEq/L (3.5-5.1); Protein, Total 6.2 g/dL (6.4-8.2); Sodium Level 135 mEq/L (136-145); Troponin High Sensitivity 10.4 pg/mL (<58.9)
--- NOTE | 2024-11-05 15:47 | RAD REPORT ---
EXAMINATION: CT ABDOMEN AND PELVIS WITHOUT CONTRAST CLINICAL INDICATION: Female, 59 years old.ABD PAIN TECHNIQUE: CT abdomen and pelvis was performed, without IV contrast, as per department protocol. Axia l, sagittal and coronal reconstructions were obtained. One or more of the following dose reduction techniques were used: Automated exposure control, adjustment of the mA and/or kV according to the pat ient size, and/or iterative reconstruction. Unless otherwise specified, incidental findings do not require dedicated imaging follow-up. [id number]. IV CONTRAST: Not administered. COMPARISON: 10/22/2024 FINDINGS: The lack of intravenous contrast limits the sensitivity of this exam for evaluation of solid visceral organs, vascular structures, and retroperitoneum. LOWER CHEST: No acute process identified.No significant pericardial effusion. Coronary calcifications .Mild circumferential thickening of the distal esophagus which could reflect esophagitis. UPPER GI: No significant abnormality. LIVER: No significant focal abnormality. GALLBLADDER/BILE DUCTS: Cholecystectomy. Mild extra-hepatic biliary ductal dilatation is likely relat ed to the post-cholecystectomy state. Consider correlating with LFT's.? PANCREAS: No mass, ductal dilation, or ramesh-pancreatic fluid. SPLEEN: Unremarkable. ADRENALS: No adrenal masses. KIDNEYS AND URETERS: No hydronephrosis.Limited evaluation for renal lesions in the absence of IV cont rast. ABDOMINAL AORTA AND OTHER VESSELS: Moderate atherosclerotic changes without aortic aneurysm. PERITONEUM: No abnormal free fluid. No free air. LYMPH NODES: No pathologic lymphadenopathy. ABDOMINAL WALL: Unremarkable SMALL BOWEL/COLON: Small bowel has normal course and caliber. No colonic wall thickening or pericolon ic inflammatory changes.Nonvisualized appendix but no secondary signs of acute appendicitis. URINARY BLADDER: Underdistended but grossly unremarkable. REPRODUCTIVE ORGANS: Uterus surgically absent. No adnexal abnormality. MUSCULOSKELETAL: L5-S1 fusion. No acute fractures. ADDITIONAL FINDINGS: None. IMPRESSION: No acute findings within the abdomen or pelvis. No significant change from prior. Incidental findings as noted above.
--- NOTE | 2024-11-05 15:49 | RAD REPORT ---
EXAM: Chest Single View HISTORY: 59 years Female COUGH COMPARISON: 10/22/2024 FINDINGS: LUNGS/PLEURA: The lungs are clear. No pleural effusions or pneumothorax. No pulmonary edema. CARDIAC/MEDIASTINUM: The cardiac silhouette is within normal limits. UPPER ABDOMEN: No significant abnormality. BONES: No acute abnormality. LINES/TUBES/OTHER: N/A IMPRESSION: No evidence of acute cardiopulmonary disease.
[2024-11-05] MEDS ORDERED: PANTOPRAZOLE 40 MG INJ ONE (16:01)
[2024-11-05] MEDS ORDERED: NA CHLORIDE 0.9% 250 ML ONE (16:01)
--- NOTE | 2024-11-05 16:11 | ER ---
Nurse's Notes [facility] Name: Charlotte Ruvalcaba Age: 59 yrs Sex: Female : 1965 Arrival Date: 11/05/2024 Time: 14:21 Bed 20 Private MD: Diagnosis: Anemia, unspecified Presentation: 11/05 14:26 Chief complaint: EMS states: Pt called EMS reporting dizziness, and low blood pressure. jb4 B/p for EMS was 120/51, BGL 340. Pt remained normotensive enroute. Coronavirus screen: At this time, the client does not indicate any symptoms associated with coronavirus-19. Ebola Screen: No symptoms or risks identified at this time. Initial Sepsis Screen: Does the patient meet any 2 criteria? No. Patient's initial sepsis screen is negative. Does the patient have a suspected source of infection? No. Patient's initial sepsis screen is negative. Risk Assessment: Do you want to hurt yourself or someone else? Patient reports no desire to harm self or others. Onset of symptoms was November 05, 2024. Transition of care: patient was not received from another setting of care. 14:26 Method Of Arrival: EMS: [facility] jb4 14:26 Acuity: RASHAD 3 jb4 Historical: - Allergies: 14:29 NKDA; jb4 - PMHx: 14:29 Asthma; COPD; Hypothyroidism; CAD; Hypertension; Anxiety; Gout; Diabetes - IDDM; jb4 - PSHx: 14:29 Coronary Stent; Cholecystectomy; back sx; bladder sling; Appendectomy; hysterectomy; jb4 gastric sleeve; knee replacement; - Immunization history:: Adult Immunizations up to date. - Infectious Disease History:: Denies. - Social history:: Smoking status: Patient denies any tobacco usage or history of. Screenin:42 [facility] ED Fall Risk Assessment (Adult) History of falling in the last 3 months, jb4 including since admission No falls in past 3 months (0 pts) Confusion or Disorientation Yes (5 pts) Intoxicated or Sedated No (0 pts) Impaired Gait No (0 pts) Mobility Assist Device Used No (0 pt) Altered Elimination No (0 pt) Score/Fall Risk Level 0 - 2 = Low Risk Oriented to surroundings, Maintained a safe environment. Abuse screen: Denies threats or abuse. Nutritional screening: No deficits noted. Tuberculosis screening: No symptoms or risk factors identified. Assessment: 14:33 General: Appears in no apparent distress. comfortable, Behavior is calm, cooperative, jb4 appropriate for age. Pain: Denies pain. Neuro: Level of Consciousness is awake, alert, obeys commands, Oriented to person, place, time, situation, Reports dizziness, since yesterday. Cardiovascular: Patient's skin is warm and dry. Respiratory: Airway is patent Respiratory effort is even, unlabored, Respiratory pattern is regular, symmetrical. Derm: Skin is intact, Skin is dry, Skin is pale, Skin temperature is warm. Musculoskeletal: Circulation, motion, and sensation intact. Range of motion: intact in all extremities. 16:15 Reassessment: Patient appears in no apparent distress at this time. Patient and/or jb4 family updated on plan of care and expected duration. Pain level reassessed. Patient is alert, oriented x 3, equal unlabored respirations, skin warm/dry/pink. 17:00 Reassessment: see [facility] for Blood transfusion order, instructed not to send pt until jb4 blood has at least been started. 18:06 Reassessment: Patient appears in no apparent distress at this time. Patient and/or ss family updated on plan of care and expected duration. Pain level reassessed. Patient is alert, oriented x 3, equal unlabored respirations, skin warm/dry/pink. Blood transfusion continued upon transfer. Vital Signs: 14:26 BP 114 / 41; Pulse 79; Resp 16; Temp 98.2(O); Pulse Ox 99% on R/A; Weight 81.65 kg (R); jb4 Height 5 ft. 4 in. ; 15:50 BP 126 / 41; Pulse 80; Resp 16; Pulse Ox 100% ; jb4 17:12 BP 133 / 49; Pulse 83; Resp 16; Pulse Ox 100% on R/A; jb4 17:50 BP 145 / 71; Pulse 88; Resp 16; Pulse Ox 100% on R/A; jb4 14:26 Body Mass Index 30.90 (81.65 kg, 162.56 cm) jb4 ED Course: 14:23 Patient arrived in ED. eb 14:25 Panda العراقي MD is Attending Physician. ec2 14:26 Arm band placed on right wrist. jb4 14:29 Triage completed. jb4 14:42 Vinayak Lassiter, RN is Primary Nurse. jb4 14:42 Patient has correct armband on for positive identification. Bed in low position. Call jb4 light in reach. Side rails up X 1. Provided Education on: plan of care. 14:42 No provider procedures requiring assistance completed. Maintain EMS IV. Dressing jb4 intact. Good blood return noted. Site clean \T\ dry. Gauge \T\ site: 18g LAC. Flushed with 10 mL NS. 15:28 XRAY Chest (1 view) In Process Unspecified. EDMS 15:34 CT Abd/Pelvis - Without Contrast In Process Unspecified. EDMS 16:16 initiated a transfer with Bartolome from the [facility] transfer Center. eb 16:20 connected the hospitalist transmission and coordination engineer for [facility] with Dr. العراقي for patient transfer eb consultation. 16:31 administrative approval given by Bartolome Anderson/ patient has been accepted to [address]8/ Dr. Meggan Mosley has accepted the patient in transfer/ report to be called to [phone]. 17:50 Patient transferred, IV remains in place. jb4 Administered Medications: 14:34 Drug: NS 0.9% IV 1000 ml IV at 1000 ml once; to be given as a bolus over 60 minutes jb4 {Note: Finishing EMS NS 1L..} Route: IV; Rate: 1000 ml; Site: left antecubital; 17:00 Follow up: Response: No adverse reaction; IV Status: Completed infusion; IV Intake: jb4 900ml 16:15 Drug: Pantoprazole IVP 80 mg IVP once Route: IVP; Site: left antecubital; jb4 17:00 Follow up: Response: No adverse reaction jb4 16:15 Drug: Pantoprazole IV 8 mg/hr IV at 25 ml/hr continuous; (Standard dilution is 80 mg in jb4 250 mL NS) Route: IV; Rate: 25 ml/hr; Site: left antecubital; 18:00 Follow up: Response: No adverse reaction; IV Status: Infusion continued upon transfer jb4 Medication: 17:50 VIS not applicable for this client. jb4 Intake: 17:00 IV: 900ml; Total: 900ml. jb4 Outcome: 16:10 ER care complete, transfer ordered by ec2 17:50 Transferred by ground EMS to [facility], Transfer form jb4 completed. X-rays sent w/ patient. 17:50 Condition: stable 17:50 Discharge instructions given to patient, Instructed on the need for transfer, Demonstrated understanding of instructions, 18:06 Patient left the ED. ss Signatures: Dispatcher [employer] Miranda La, ALOK RN ss Vinayak Lassiter RN RN jb4 Sandra Solano Edwin, MD MD ec2 Corrections: (The following items were deleted from the chart) 14:30 14:26 Pulse 79bpm; Resp 16bpm; Pulse Ox 99% RA; Temp 98.2F Oral; 81.65 kg Reported; jb4 Height 5 ft. 4 in.; BMI: 30.9; jb4 14:34 14:26 BP 89 / 69; Pulse 79bpm; Resp 16bpm; Pulse Ox 99% RA; Temp 98.2F Oral; 81.65 kg jb4 Reported; Height 5 ft. 4 in.; BMI: 30.9; jb4
--- NOTE | 2024-11-05 16:11 | EDPHYS ---
Physician Documentation [facility] Name: Charlotte Ruvalcaba Age: 59 yrs Sex: Female : 1965 Arrival Date: 11/05/2024 Time: 14:21 Bed 20 Private MD: ED Physician Panda العراقي HPI: 11/05 14:35 This 59 yrs old Black Female presents to ER via EMS with complaints of weakness. ec2 14:35 Patient arrives today for evaluation of generalized weakness. Patient reports she been ec2 feeling lightheaded for the past several weeks, states that she was recently seen here, was anemic, subsequently received blood and was transferred over due to concern for GI bleed and ultimately had a negative endoscopy and colonoscopy. Patient reports otherwise decreased p.o. intake no vomiting, no diarrhea, no abdominal pain, no chest pain or shortness of breath.. Historical: - Allergies: 14:29 NKDA; jb4 - PMHx: 14:29 Asthma; COPD; Hypothyroidism; CAD; Hypertension; Anxiety; Gout; Diabetes - IDDM; jb4 - PSHx: 14:29 Coronary Stent; Cholecystectomy; back sx; bladder sling; Appendectomy; hysterectomy; jb4 gastric sleeve; knee replacement; - Immunization history:: Adult Immunizations up to date. - Infectious Disease History:: Denies. - Social history:: Smoking status: Patient denies any tobacco usage or history of. ROS: 14:35 Constitutional: as per hpi ec2 Exam: 14:35 Constitutional: GEN: NAD Head: atraumatic Eyes: EOMI Ears: External ears are ec2 normal. CV: regular rate LUNGS: no respiratory distress ABD: non-distended, soft, nontender, not guarding, not rigid SKIN: no evidence of rashes MSK: no evidence of trauma Vital Signs: 14:26 BP 114 / 41; Pulse 79; Resp 16; Temp 98.2(O); Pulse Ox 99% on R/A; Weight 81.65 kg (R); jb4 Height 5 ft. 4 in. ; 15:50 BP 126 / 41; Pulse 80; Resp 16; Pulse Ox 100% ; jb4 17:12 BP 133 / 49; Pulse 83; Resp 16; Pulse Ox 100% on R/A; jb4 17:50 BP 145 / 71; Pulse 88; Resp 16; Pulse Ox 100% on R/A; jb4 14:26 Body Mass Index 30.90 (81.65 kg, 162.56 cm) jb4 MDM: 14:25 Medical Screening Exam initiated ec2 14:36 Data reviewed: vital signs, nurses notes. ED course: Patient arrives today for ec2 evaluation of weakness and lightheadedness. Examination yields nontoxic and appears otherwise in no acute distress. Will obtain lab work, EKG, chest x-ray. DDx includes dehydration, anemia, electrolyte disturbances.. 14:42 ED course: EKG independently reviewed and interpreted by me, shows normal rate of 79 ec2 with no acute ST segment elevations and nonactionable intervals.. 15:59 ED course: Lab work shows recurrent anemia. Patient with a hemoglobin of 6. Will give ec2 the patient blood. My concern is that patient is losing blood however unclear where. I performed a digital rectal examination per nurses for vision present. Dark brown stool noted, no melena appreciated. Will give the patient Protonix push and drip as well.. 16:17 ED course: Of note patient is on Eliquis.. ec2 16:33 ED course: I discussed the case with the hospitalist over at [facility] who agrees ec2 to accept this patient for transfer.. 11/05 14:33 Order name: Type And Screen ec2 11/05 14:33 Order name: Basic Metabolic Panel; Complete Time: 15:35 ec2 11/05 14:33 Order name: CBC with Diff; Complete Time: 15:09 ec2 11/05 14:33 Order name: Troponin HS; Complete Time: 15:35 ec2 11/05 14:33 Order name: LFT's; Complete Time: 15:35 ec2 11/05 14:52 Order name: T4 Free; Complete Time: 15:35 EDMS 11/05 14:52 Order name: Thyroid Stimulating Hormone; Complete Time: 15:35 EDMS 11/05 14:55 Order name: CBC Smear Scan; Complete Time: 15:09 EDMS 11/05 15:49 Order name: Packed RBC Leukored EDMS 11/05 14:33 Order name: XRAY Chest (1 view); Complete Time: 15:56 ec2 11/05 15:19 Order name: CT Abd/Pelvis - Without Contrast; Complete Time: 15:56 ec2 11/05 14:33 Order name: IV; Complete Time: 14:34 ec2 11/05 14:33 Order name: Cardiac monitoring; Complete Time: 14:34 ec2 11/05 14:33 Order name: EKG - Nurse/Tech; Complete Time: 14:34 ec2 11/05 14:33 Order name: Labs collected and sent; Complete Time: 14:34 ec2 11/05 14:33 Order name: O2 Per Protocol; Complete Time: 14:34 ec2 11/05 14:33 Order name: O2 Sat Monitoring; Complete Time: 14:34 ec2 11/05 15:10 Order name: Consent for Blood Transfusion; Complete Time: 15:50 ec2 Administered Medications: 14:34 Drug: NS 0.9% IV 1000 ml IV at 1000 ml once; to be given as a bolus over 60 minutes jb4 {Note: Finishing EMS NS 1L..} Route: IV; Rate: 1000 ml; Site: left antecubital; 17:00 Follow up: Response: No adverse reaction; IV Status: Completed infusion; IV Intake: jb4 900ml 16:15 Drug: Pantoprazole IVP 80 mg IVP once Route: IVP; Site: left antecubital; 4 17:00 Follow up: Response: No adverse reaction jb4 16:15 Drug: Pantoprazole IV 8 mg/hr IV at 25 ml/hr continuous; (Standard dilution is 80 mg in jb4 250 mL NS) Route: IV; Rate: 25 ml/hr; Site: left antecubital; 18:00 Follow up: Response: No adverse reaction; IV Status: Infusion continued upon transfer jb4 Disposition Summary: 11/05/24 16:10 Transfer Ordered Notes: Transfer Location: [facility] ec2 Reason: Higher level of care ec2 Condition: Stable ec2 Problem: an ongoing problem ec2 Symptoms: are unchanged ec2 Accepting Physician: transferring doc(11/05/24 18:06) ss Diagnosis - Anemia, unspecified ec2 Forms: - Medication Reconciliation Form ec2 - SBAR form ec2 Critical care time excluding procedures: 15:58 Critical care time: Bedside Care: 30 minutes. Total time: 30 minutes ec2 Signatures: Dispatcher [employer] Miranda La RN RN ss Bryson, James, RN RN jb4 Panda العراقي MD MD ec2 Corrections: (The following items were deleted from the chart) 14:33 14:33 BASIC METABOLIC PANEL+C.LAB.BRZ ordered. EDMS EDMS 14:33 14:33 CBC+H.LAB.BRZ ordered. EDMS EDMS 14:33 14:33 Troponin High Sensitivity+C.LAB.BRZ ordered. EDMS EDMS 14:33 14:33 TYPE AND SCREEN+BB.LAB.BRZ ordered. EDMS EDMS 14:33 14:33 HEPATIC FUNCTION+C.LAB.BRZ ordered. EDMS EDMS 14:33 14:33 Urinalysis W/Microscopic+U.LAB.BRZ ordered. EDMS EDMS 14:53 14:38 THYROID STIMULAT HORMONE+C.LAB.BRZ ordered. EDMS EDMS 14:53 14:38 T4 FREE+C.LAB.BRZ ordered. EDMS EDMS 15:48 15:10 PACKED RBC LEUKORED+BB.LAB.BRZ ordered. EDMS EDMS 15:48 15:12 ABO/RH typing ordered. EDMS EDMS 15:48 15:12 Antibody Screen ordered. EDMS EDMS 18:06 16:10 transferring doc ec2 ss
[2024-11-05] MEDS ORDERED: NA CHLORIDE 0.9% 100 ML ONE (16:52)
[2024-11-05 18:10] VITALS: TEMP 98.2
[2024-11-05 18:11] VITALS: BP 126/41; O2SAT 100
--- NOTE | 2024-11-07 12:09 | EKG ---
Test Date: 2024-11-05 Test Time: 14:34:24 Pipefitter Welder: YANNICK MEASUREMENT RESULTS: Intervals: Rate: 79 FL: 130 QRSD: 74 QT: 374 QTc: 428 Mikado: P: 148 FL: 130 QRS: -18 T: 260 INTERPRETIVE STATEMENTS: Unusual P axis, possible ectopic atrial rhythm Possible Lateral infarct, age undetermined Abnormal ECG Compared to ECG 10/22/2024 10:41:59 Sinus rhythm no longer present Myocardial infarct finding still present Electronically Signed On 11-07-24 12:04:37 CHILD WELFARE CONSULTANT by Serg Samuels
== END 2024-11-05 18:06 | disposition short-term general hospital (02) ==
LOC: ER 14:21
PROC: 30233N1 Transfusion of Nonautologous Red Blood Cells into Peripheral Vein, Percutaneous Approach (ICD-10-PCS; principal; 2024-11-05)
DX: D64.9 Anemia, unspecified (principal); E11.9 Type 2 diabetes mellitus without complications; I10 Essential (primary) hypertension
CPT/HCPCS: 96365; 96361; 85025; 80048; 36415; 86900; 86850; 86901; 80076; 86920; 84443; 84484; 84439; 74176; 71045; 99285; 96366; 36430; J2470; P9016; J7050; 93005